=== PATIENT | female | born 1975 ===

== ENCOUNTER 2020-08-25 08:06 | Outpatient (REF) | payer MEDICAID, SELFPAY ==
[2020-08-25 09:51] LABS: Blood Urea Nitrogen 26 mg/dL (9-16); Estimated Glomerular Filt Rate 50
== END 2020-08-25 08:07 | disposition home or self-care (01) ==
LOC: HO.LAB 08:06
PROVIDERS: Absent Provider Radiology Vascular & Interventional Radiology; PCP Internal Medicine
DX: Z01.812 Encounter for preprocedural laboratory examination (principal)
CPT/HCPCS: 36415; 82565; 84520

== ENCOUNTER 2020-09-02 11:00 | Outpatient (RCR) | payer MEDICAID, SELFPAY | END 2020-12-05 15:00 | disposition home or self-care (01) | LOC: HO.WCC 11:00 | PROVIDERS: PCP Internal Medicine; Visit Provider Physician Assistant Surgical | DX: E11.621 Type 2 diabetes mellitus with foot ulcer (principal); L97.525 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 without evidence of necrosis; I70.245 Atherosclerosis of native arteries of left leg with ulceration of other part of foot; E11.610 Type 2 diabetes mellitus with diabetic neuropathic arthropathy; Z79.4 Long term (current) use of insulin; Z79.82 Long term (current) use of aspirin | CPT/HCPCS: 11042; 11043 ==

== ENCOUNTER → 2020-10-03 13:09 | Outpatient (BNVA) | payer MEDICAID, SELFPAY | PROVIDERS: PCP Internal Medicine; Referring Provider Internal Medicine; Visit Provider Nurse Practitioner Gerontology | DX: Z76.89 Persons encountering health services in other specified circumstances (principal) ==

== ENCOUNTER 2021-02-23 13:19 | Outpatient (REF) | payer MEDICAID, SELFPAY ==
--- NOTE | ~2021-02-23 | XR_ITS ---
EXAMINATION: XR CHEST CLINICAL INFORMATION: Shortness of breath COMPARISON: Previous chest x-ray November 2019 TECHNIQUE: 2 views of the chest were obtained. FINDINGS: The cardiac and mediastinal contours are stable. The lungs are clear. There is no pleural effusion or pneumothorax. There are median sternotomy wires. There is mild curvature of the lower thoracic spine to the right and degenerative change. XR/XR chest 2V IMPRESSION: No evidence for acute disease in the chest.
== END 2021-02-23 13:20 | disposition home or self-care (01) ==
LOC: HO.XRAY 13:19
PROVIDERS: PCP Internal Medicine; Visit Provider Emergency Medicine
DX: R06.02 Shortness of breath (principal)
CPT/HCPCS: 71046

== ENCOUNTER → 2021-03-02 09:11 | Outpatient (REF) | payer MEDICAID, SELFPAY ==
--- NOTE | 2021-03-02 09:30 | CA_ITS ---
Transthoracic Echocardiogram Patient (Last, First, Middle): Melissa Barnett, Gender: Female Date of : 1975 Age: 45 Procedure Date: 03/02/2021 Procedure Type: Transthoracic Echocardiogram Location: OP Height: 165.1 cm Weight: 91.63 kg BSA: 1.99 m2 Heart Rate: bpm BP: 122 / 80 mmHg Home Health Manager: Referring MD: Damien Caruso MD Symptoms: I42.9 CMP Study Quality: Fair ECG Rhythm: Sinus Conclusions: - The left ventricular systolic function is normal. The visually estimated ejection fraction is between 65-70%. - There is moderate to severely decreased right ventricular systolic function. Findings Procedure Information Contrast agent, definity, is being given per protocol without apparent complications. Left Ventricle Normal left ventricular cavity size. There is mildly increased left ventricular wall thickness. The left ventricular systolic function is normal. The visually estimated ejection fraction is between 65-70%. There is no evidence of regional wall motion abnormalities. There is paradoxical septal motion consistent with post-operative status. Right Ventricle There is moderate to severely decreased right ventricular systolic function. Prior Study Comparison Changes noted compared to prior study dated: 04/13/2018. See comments on RV function. Measurements 2D Systolic Function EF 4C: 56.10 >55% EF 2C: 65.00 >55% EF BiP: 62.00 >55% Updated in Other Vendor System with Status of Final Tay Perkins MD electronically signed on 03/03/2021 10:41:01 AM with status of Final
== END ==
LOC: HO.CARD 09:11
PROVIDERS: Visit Provider Internal Medicine Cardiovascular Disease
DX: I42.9 Cardiomyopathy, unspecified (principal)
CPT/HCPCS: 93308; Q9957

== ENCOUNTER → 2021-04-03 13:54 | Outpatient (BNVA) | payer MEDICAID, SELFPAY | PROVIDERS: PCP Internal Medicine; Visit Provider Nurse Practitioner Gerontology | DX: E11.42 Type 2 diabetes mellitus with diabetic polyneuropathy (principal); E11.29 Type 2 diabetes mellitus with other diabetic kidney complication; R80.9 Proteinuria, unspecified; I10 Essential (primary) hypertension; E66.09 Other obesity due to excess calories; Z68.31 Body mass index [BMI] 31.0-31.9, adult; Z79.4 Long term (current) use of insulin | CPT/HCPCS: 82947; 99212 ==

== ENCOUNTER 2021-09-02 14:09 | Outpatient (RCR) | payer MEDICAID, SELFPAY ==
[2021-09-02 14:16] VITALS: BP 125/71; PULSE 99; O2SAT 98
== END 2021-09-14 10:43 | disposition home or self-care (01) ==
LOC: HO.PT 14:09
PROVIDERS: PCP Internal Medicine; Visit Provider Internal Medicine
DX: M16.11 Unilateral primary osteoarthritis, right hip (principal)
CPT/HCPCS: 97163

== ENCOUNTER 2021-10-07 10:55 | Outpatient (REF) | payer MEDICAID, SELFPAY ==
[2021-10-07 14:25] LABS: Alanine Aminotransferase 25 U/L (0-31); Albumin Level 4.4 g/dL (3.5-5.0); Alkaline Phosphatase 98 U/L (39-117); Anion Gap 13 (12-20); Aspartate Amino Transferase 21 U/L (5-31); Bilirubin Total 0.3 mg/dL (0.0-1.0); Blood Urea Nitrogen 18 mg/dL (9-16); Calcium 9.7 mg/dL (8.4-10.2); Carbon Dioxide 30 mmol/L (22-29); Chloride 103 mmol/L (96-108); Cholesterol 230 mg/dL; Estimated Glomerular Filt Rate 56; Glucose Random 88 mg/dL (60-115); HDL Cholesterol 46 mg/dL; LDL Cholesterol Calculated 145 mg/dl; Potassium 3.9 mmol/L (3.3-5.1); Sodium 142 mmol/L (135-145); Total Protein 7.5 g/dL (6.5-8.0); Triglycerides 199 mg/dL
[2021-10-07 14:35] LABS: Creatinine Urine 71.86 mg/dL; Microalbum/Creatinine Ratio Ur 65.4 ug/mg cr
[2021-10-07 14:36] LABS: Creatinine Urine 73.53 mg/dL; Protein/Creatinine Ratio, Ur 0.16 (<0.2); Total Protein Urine Random 12 mg/dL (<12)
[2021-10-09 13:30] LABS: LDL Cholesterol Direct 154 mg/dL (<100)
== END 2021-10-07 10:56 | disposition home or self-care (01) ==
LOC: HO.10HDL 10:55
PROVIDERS: Absent Provider Internal Medicine Nephrology; Visit Provider Nurse Practitioner Gerontology
DX: E11.21 Type 2 diabetes mellitus with diabetic nephropathy (principal); E11.29 Type 2 diabetes mellitus with other diabetic kidney complication; E11.65 Type 2 diabetes mellitus with hyperglycemia; E66.09 Other obesity due to excess calories; Z68.31 Body mass index [BMI] 31.0-31.9, adult; E78.5 Hyperlipidemia, unspecified; R80.9 Proteinuria, unspecified; I10 Essential (primary) hypertension; Z79.4 Long term (current) use of insulin; Z71.3 Dietary counseling and surveillance
CPT/HCPCS: 36415; 80053; 80061; 82043; 82947; 83036; 83721; 84156

== ENCOUNTER 2021-10-07 13:26 | Outpatient (AMB) | payer MEDICAID, SELFPAY ==
[2021-10-07 13:29] VITALS: BP 104/58; PULSE 93; BMI 31.7
--- NOTE | 2021-10-07 13:29 | A.OFFVIS_ITS ---
Intake Vital Signs 10/07/21 13:29 Height 5 ft 7 in Weight 202 lb 13.204 oz BMI 31.7 BP 104/58 L Blood Pressure Location Lt brachial Position Sitting Pulse 93 Pulse Source Pulse Oximeter Intake Visit Reasons: Dm2 with pump and sensor Intake Note: Patient here today for Diabetes follow up visit with pump and sensor. For eye care patient last seen 09/28/21 . For foot care patient last seen 09/29/21 poc-181 a1c- 8.8% Health Unit Coordinator Required: No Accompanied by: Self / Same As Patient Allergies sulfamethoxazole [From BACTRIM] Allergy (Severe, Unverified 10/07/21 13:49) FACIAL SWELLING trimethoprim [From BACTRIM] Allergy (Severe, Unverified 10/07/21 13:49) FACIAL SWELLING levofloxacin [From LEVAQUIN] Allergy (Intermediate, Unverified 10/07/21 13:49) REDNESS, SWELLING ITCHINESS AT IV SITE Medication List - Last Reconciled 10/07/21 by DEYSI Luna albuterol sulfate 90 mcg/actuation (ProAir HFA) 1 inh inhalation QID aspirin (Adult Aspirin Regimen) 81 mg PO DAILY evnjbb-mlgpmztalfe-XtMn-NaHCO3 137 mcg-50 mcg- 0.9 % 1 spray intranasal BID blood sugar diagnostic (FreeStyle Lite Strips) As directed clopidogrel 75 mg PO DAILY digoxin 125 mcg PO DAILY dulaglutide (Trulicity) 1.5 mg (0.5 mL) subcut QWEEK 28 days ezetimibe 10 mg PO QAM ferrous gluconate 324 mg PO DAILY insulin glargine (Lantus Solostar U-100 Insulin) 50 units (0.5 mL) subcut DAILY insulin lispro (Humalog U-100 Insulin) up to 150 units subcut daily via pump; 30 days insulin syringe-needle U-100 (BD Insulin Syringe) Three times a day isosorbide mononitrate ER 30 mg PO QAM lamotrigine 100 mg PO BID lancets (FreeStyle Lancets) As directed lisinopril 10 mg PO DAILY mirtazapine 15 mg PO BEDTIME pantoprazole 40 mg PO DAILY pen needle, diabetic (BD Ultra-Fine Nikole Pen Needle) As directed pen needle, diabetic (Pentips) 1 ea miscellaneous DAILY rosuvastatin 40 mg PO BEDTIME sertraline 100 mg PO DAILY spironolactone 25 mg PO DAILY torsemide 20 mg PO DAILY HPI HPI Comments History of Present Illness Details Patient is 45 yo female with DM type 2 diagnosed in approximately 1987, here for follow up management of diabetes. Patient was last seen 04/05/2021 with an A1c of 6.5%. She was continued on her pump settings. She is still has open wound on left foot ulcer operation 2 years ago and sees wound center once a week and daughter changes bandage at home. She is scheduled to see the wound care center tomorrow. Today she states that pump has not been working and has been using Lantus 50 units twice daily for 3 weeks. Past medical history: HTN, HLD, CAD Micro and macrovascular complications: + retinopathy, + neuropathy, + CAD, Symptoms: + numbness and tingling in legs. Hypoglycemia: once every 2 weeks, down to 47 the other day when fasting for labs. Hyperglycemia: denies polyuria, nocturia 2-3x/night CGM: Average blood glucose in the last 2 weeks is 217, C GM is active 81% of the time. Coefficient variation 41.8%. Patient had low blood glucose less than 70, 0.9% of the time. Blood glucose in target range of 70-184, 41.2% of the time. Blood glucose high, over 180, 57.8%. Blood glucose very high over 250, 32.2% of the time. DM medications: Trulicity 1.5, Lantus 50 units BID. Previously on Omnipod with Humalog insulin and settings:: Basal rates: 12am- 9pm 2.3 9pm-12am 2.75 I:C 12am-12pm 5 12PM - 12am 4 BG target 100, Sensitivity 25 Diet: Breakfast: sandwich Lunch: ensure Dinner: soup or pasta Chargem[employer] Specialist: 09/29/21 wound center Eye exam: 09/28/21, + retinopathy Laboratory Tests 10/07/21 10/07/21 10/07/21 11:11 11:11 11:11 Creatinine 1.05 Estimated GFR 56 Hgb A1c (Clinic) Triglycerides 199 Cholesterol 230 LDL Cholesterol Di rect Pending LDL Cholesterol, C alc 145 HDL Cholesterol 46 Microalb/Creat Rat io 65.4 10/07/21 13:52 Creatinine Estimated GFR Hgb A1c (Clinic) 8.8 H Triglycerides Cholesterol LDL Cholesterol Di rect LDL Cholesterol, C alc HDL Cholesterol Microalb/Creat Rat io PFSH Medical History (Updated 10/07/21 @ 14:16 by DEYSI Luna) Anxiety CAD (coronary artery disease) Depression DM2 (diabetes mellitus, type 2) Essential hypertension Hyperlipidemia LDL goal <100 Obesity due to excess calories Proteinuria Retinopathy Type 2 diabetes mellitus with diabetic polyneuropathy Type 2 diabetes mellitus with hyperglycemia, with long-term current use of insulin Type 2 diabetes mellitus with other diabetic kidney complication Surgical History Hx of coronary artery bypass surgery Family History Maternal Grandmother Diabetes Brother Diabetes Social History Household Members: None Alcohol intake: never Patient Tobacco Use Status: Never used Tobacco Review of Systems Const Denies fatigue, Reports weight gain and Denies weight loss Eyes Denies blurry vision ENT Denies sore throat Card Denies palpitations and Denies dyspnea Resp Denies cough and Denies dyspnea GI Denies constipation and Denies diarrhea Denies urinary frequency and Denies dysuria Musc Denies myalgias, Denies muscle weakness, Reports numbness and Reports tingling Neuro Reports numbness and Reports tingling Psych Denies abnormal sleep pattern and Denies depression Endo Denies fatigue and Denies palpitations Wyatt/Lymph Denies easy bruising Physical Exam Vital Signs: Last Vital Signs Pulse 93 10/07/21 13:29 BP 104/58 L 10/07/21 13:29 Body Mass Index 31.7 Const General: no acute distress and alert Orientation/consciousness: patient oriented x3 HENMT Head: Yes normocephalic and Yes atraumatic Eyes Sclerae: sclerae normal Pupils: Equal, round and reactive pupils present EOM: EOMs intact bilaterally Neck Neck: Yes no lymphadenopathy, Yes trachea midline and Yes no JVD Thyroid: Thyroid normal Resp Effort & Inspection: normal respiratory effort Auscultation: clear to auscultation bilaterally Cardio Rate: regular rate Rhythm: regular rhythm Heart sounds: S1 normal heart sound present and S2 normal heart sound present Peripheral pulses: Peripheral pulses 2+ throughout GI Inspection: Yes normal to inspection and No distended Auscultation: normal bowel sounds Skin Other: No acanthosis nigricans or diabetic dermopathy General skin exam: no rashes or lesions noted Neuro General: patient oriented x3, gait normal and deep tendon reflexes 2+ bilaterally Cranial nerves: Yes Equal, round and reactive pupils present Deep tendon reflexes (DTR's): Rt Biceps (C5, C6): 2+, Left biceps reflex intensity grade: 2+, Right patellar reflex intensity grade: 2+ and Left patellar reflex intensity grade: 2+ Extrem Other: General: Yes normal gait, No clubbing, No cyanosis and No edema Psych Affect: normal affect Attitude: cooperative Foot/Visual Skin warmth: Warm Skin color: normal Skin texture: other (dry) Skin complications: reports callus(es) Nails: abnormal Visual inspection of feet performed: Yes Foot/Pulses Pulses: normal: Left dorsalis pedis peripheral pulse, Right dorsalis pedis peripheral pulse, Left posterior tibial pulse foot exam and Right posterior tibial pulse foot exam Peripheral pulses performed: Yes Foot/Sensory Sensory exam performed: No Sensory Details: Monofilament sensation impaired on right. No vibratory sensation sensed with 128 megahertz tuning fork, on right. Left foot bandaged Office Procedures Glucose Monitoring Details 24522 - Glucose monitoring, continuous-physician I&R Procedure code (CPT) selection complete Results AMB Hemoglobin A1c AMB Hemoglobin A1c 8.8 % Last Edit by KENNETH Rainey on 10/07/21 13:54 Results Reviewed Results Reviewed: 10/07/21 13:41 Glucose, Whole Blood Routine Laboratory Last Values Glucose (Clinic) 181 mg/dL (60-115) H 10/07/21 13:41 Hgb A1c (Clinic) 8.8 % (4.0-6.0) H 10/07/21 13:52 Assessment & Plan Assessment & Plan (1) DM2 (diabetes mellitus, type 2): Code(s): E11.9 - Type 2 diabetes mellitus without complications Qualifiers: Diabetes mellitus complication status: with hyperglycemia Diabetes mellitus retirement insulin use: with retirement use Qualified Code(s): E11.65 - Type 2 diabetes mellitus with hyperglycemia; Z79.4 - keno terminal operator (current) use of insulin Plan: Patient's blood glucose is uncontrolled today. Patient has been using Lantus 50 units twice a day for the last 3 weeks and did not contact this office for Humalog dosing. She has postprandial hyperglycemia. I will switch her to Lantus 50 units daily with 5 units of Humalog for in short 10 units for a sandwich and 15 units for regular meal. Patient has been having difficulty with her Omni pot pump and did not contact this office. I will have her see the [facility]rap[facility] ([facility]) to restart patient on Omni pod pump on her previous settings and to trouble shoot the issues she may have had. She is scheduled for earliest possible appointment. Patient is to bring her supplies and Humalog to this appointment. Patient counseled on the importance of controlling portion sizes of high carbohydrate foods and being active as tolerated. Hypoglycemic protocols, rule of 15 reviewed. Patient is currently going to wound care center for an ulcer on her left foot. Advised patient on foot care and the importance of daily foot checks. She reports she is receiving Footcare from nursing staff at her house. Reviewed treatment plan including alternatives, benefits and risks. Patient instructed on the importance of adherence to the prescribed treatment regimen. Patient agreed to plan. 46 minutes spent reviewing the record, seeing the patient and documenting in the medical record. (2) Type 2 diabetes mellitus with diabetic polyneuropathy: Code(s): E11.42 - Type 2 diabetes mellitus with diabetic polyneuropathy Qualifiers: Diabetes mellitus retirement insulin use: with retirement use Qualified Code(s): E11.42 - Type 2 diabetes mellitus with diabetic polyneuropathy; Z79.4 - keno terminal operator (current) use of insulin (3) Type 2 diabetes mellitus with other diabetic kidney complication: Code(s): E11.29 - Type 2 diabetes mellitus with other diabetic kidney complication (4) Proteinuria: Code(s): R80.9 - Proteinuria, unspecified Qualifiers: Proteinuria type: unspecified Qualified Code(s): R80.9 - Proteinuria, unspecified Plan: Patient is currently on an Noel. (5) Essential hypertension: Code(s): I10 - Essential (primary) hypertension Plan: Blood pressure controlled. Advised low-salt diet. (6) Hyperlipidemia LDL goal <100: Code(s): E78.5 - Hyperlipidemia, unspecified Plan: LDL elevated. Patient has been inconsistent with rosuvastatin. Advised to take on daily basis as prescribed. Currently also on ezetimibe. Will add bempedoic acid. (7) Obesity due to excess calories: Code(s): E66.09 - Other obesity due to excess calories Qualifiers: Body mass index: BMI 31.0-31.9 Obesity classification: adult class 1 (BMI 30 - 34.9) Serious obesity comorbidity presence: with serious comorbidity Qualified Code(s): E66.09 - Other obesity due to excess calories; Z68.31 - Body mass index [BMI] 31.0-31.9, adult Plan: Advised patient on the importance diet and exercise as noted. Orders: Orders AMB Hemoglobin A1c Today E11.29 - Type 2 diabetes mellitus with other diabetic kidney complication Referrals Diabetes Education Referral E11.42 - Type 2 diabetes mellitus with diabetic polyneuropathy, Z79.4 - keno terminal operator (current) use of insulin Medications: New insulin lispro (Humalog KwikPen (U-100) Insulin) 5 - 15 units (0.05 - 0.15 mL) subcut TID 15 mL 3RF bempedoic acid 180 mg PO DAILY 30 tabs 11RF Changed From pen needle, diabetic (Pentips) 1 ea miscellaneous DAILY 100 ea 3RF E11.42 - Type 2 diabetes mellitus with diabetic polyneuropathy, Z79.4 - keno terminal operator (current) use of insulin To pen needle, diabetic (Pentips) 1 ea miscellaneous QID 150 ea 3RF E11.42 - Type 2 diabetes mellitus with diabetic polyneuropathy, Z79.4 - keno terminal operator (current) use of insulin Coding Level of Care Code Tele Est Pt Level 5 (18285) Diagnoses Type 2 diabetes mellitus with diabetic polyneuropathy E11.42; Z79.4 Diabetes mellitus retirement insulin use: with retirement use Type 2 diabetes mellitus with other diabetic kidney complication E11.29 Proteinuria R80.9 Proteinuria type: unspecified Essential hypertension I10 Obesity due to excess calories E66.09; Z68.31 Body mass index: BMI 31.0-31.9 Obesity classification: adult class 1 (BMI 30 - 34.9) Serious obesity comorbidity presence: with serious comorbidity DM2 (diabetes mellitus, type 2) E11.65; Z79.4 Diabetes mellitus complication status: with hyperglycemia Diabetes mellitus retirement insulin use: with parts counterman use Hyperlipidemia LDL goal <100 E78.5 CPT Codes Details - CPT: 45562 - Glucose monitoring, continuous-physician I&R ([id number])
[2021-10-07 13:47] LABS: Glucose, Whole Blood 181 mg/dL (60-115)
--- NOTE | 2021-10-19 15:28 | MHC.AMDMED ---
Intake Vital Signs 10/07/21 13:29 Height 5 ft 7 in Weight 202 lb 13.204 oz BMI 31.7 BP 104/58 L Blood Pressure Location Lt brachial Position Sitting Pulse 93 Pulse Source Pulse Oximeter Intake Visit Reasons: Dm2 with pump and sensor Allergies sulfamethoxazole [From BACTRIM] Allergy (Severe, Verified 01/05/24 13:00) FACIAL SWELLING trimethoprim [From BACTRIM] Allergy (Severe, Verified 01/05/24 13:00) FACIAL SWELLING levofloxacin [From LEVAQUIN] Allergy (Intermediate, Verified 01/05/24 13:00) REDNESS, SWELLING ITCHINESS AT IV SITE Medication List - Last Reconciled 10/07/21 by DEYSI Luna albuterol sulfate 90 mcg/actuation (ProAir HFA) 1 inh inhalation QID aspirin (Adult Aspirin Regimen) 81 mg PO DAILY gstjdy-epgclxbxqsb-UsAd-NaHCO3 137 mcg-50 mcg- 0.9 % 1 spray intranasal BID blood sugar diagnostic (FreeStyle Lite Strips) As directed clopidogrel 75 mg PO DAILY digoxin 125 mcg PO DAILY dulaglutide (Trulicity) 1.5 mg (0.5 mL) subcut QWEEK 28 days ezetimibe 10 mg PO QAM ferrous gluconate 324 mg PO DAILY insulin glargine (Lantus Solostar U-100 Insulin) 50 units (0.5 mL) subcut DAILY insulin lispro (Humalog U-100 Insulin) up to 150 units subcut daily via pump; 30 days insulin syringe-needle U-100 (BD Insulin Syringe) Three times a day isosorbide mononitrate ER 30 mg PO QAM lamotrigine 100 mg PO BID lancets (FreeStyle Lancets) As directed lisinopril 10 mg PO DAILY mirtazapine 15 mg PO BEDTIME pantoprazole 40 mg PO DAILY pen needle, diabetic (BD Ultra-Fine Nikole Pen Needle) As directed pen needle, diabetic (Pentips) 1 ea miscellaneous DAILY rosuvastatin 40 mg PO BEDTIME sertraline 100 mg PO DAILY spironolactone 25 mg PO DAILY torsemide 20 mg PO DAILY HPI Comprehensive Diabetes Asmnt Most Recent Diabetes Results: No Data to Display [facility] Medical History DEVYN (obstructive sleep apnea) Osteomyelitis Wound of left foot Asthma DM2 (diabetes mellitus, type 2) Hyperlipidemia LDL goal <100 CAD (coronary artery disease) Retinopathy Anxiety Depression Type 2 diabetes mellitus with hyperglycemia, with long-term current use of insulin Proteinuria Type 2 diabetes mellitus with other diabetic kidney complication Essential hypertension Obesity due to excess calories Type 2 diabetes mellitus with diabetic polyneuropathy Surgical History Hx of breast biopsy Hx of section Hx of tubal ligation Hx of coronary artery bypass surgery Family History Maternal Grandmother Diabetes Cervical cancer Brother Diabetes Sister Breast cancer Social History Household Members: Family Household Members Other:: 1 Housing: Apartment Alcohol intake: never Patient Tobacco Use Status: Never used Tobacco Second Hand Smoke Exposure: No service: No Current occupational status: unemployed Physical Exam Vital Signs: Last Vital Signs Pulse 93 10/07/21 13:29 BP 104/58 L 10/07/21 13:29 BMI result Body Mass Index 31.7 Assessment & Plan Assessment & Plan (1) DM2 (diabetes mellitus, type 2): Code(s): E11.9 - Type 2 diabetes mellitus without complications Qualifiers: Diabetes mellitus complication status: with hyperglycemia Diabetes mellitus keno terminal operator insulin use: with keno terminal operator use Qualified Code(s): E11.65 - Type 2 diabetes mellitus with hyperglycemia; Z79.4 - snf (current) use of insulin (2) Type 2 diabetes mellitus with diabetic polyneuropathy: Code(s): E11.42 - Type 2 diabetes mellitus with diabetic polyneuropathy Qualifiers: Diabetes mellitus detention insulin use: with keno terminal operator use Qualified Code(s): E11.42 - Type 2 diabetes mellitus with diabetic polyneuropathy; Z79.4 - predatory animal exterminator (current) use of insulin (3) Type 2 diabetes mellitus with other diabetic kidney complication: Code(s): E11.29 - Type 2 diabetes mellitus with other diabetic kidney complication (4) Proteinuria: Code(s): R80.9 - Proteinuria, unspecified Qualifiers: Proteinuria type: unspecified Qualified Code(s): R80.9 - Proteinuria, unspecified (5) Essential hypertension: Code(s): I10 - Essential (primary) hypertension (6) Hyperlipidemia LDL goal <100: Code(s): E78.5 - Hyperlipidemia, unspecified (7) Obesity due to excess calories: Code(s): E66.09 - Other obesity due to excess calories Qualifiers: Body mass index: BMI 31.0-31.9 Obesity classification: adult class 1 (BMI 30 - 34.9) Serious obesity comorbidity presence: with serious comorbidity Qualified Code(s): E66.09 - Other obesity due to excess calories; Z68.31 - Body mass index [BMI] 31.0-31.9, adult Orders: Orders AMB Hemoglobin A1c 10/07/21 E11.29 - Type 2 diabetes mellitus with other diabetic kidney complication Referrals Diabetes Education Referral E11.42 - Type 2 diabetes mellitus with diabetic polyneuropathy, Z79.4 - predatory animal exterminator (current) use of insulin Medications: New insulin lispro (Humalog KwikPen (U-100) Insulin) 5 - 15 units (0.05 - 0.15 mL) subcut TID 15 mL 3RF bempedoic acid 180 mg PO DAILY 30 tabs 11RF Changed From pen needle, diabetic 1 ea miscellaneous DAILY 100 ea 3RF E11.42 - Type 2 diabetes mellitus with diabetic polyneuropathy, Z79.4 - predatory animal exterminator (current) use of insulin To pen needle, diabetic (Pentips) 1 ea miscellaneous QID 150 ea 3RF E11.42 - Type 2 diabetes mellitus with diabetic polyneuropathy, Z79.4 - snf (current) use of insulin Coding Level of Care Code Est Pt Level 1 (04134) Diagnoses Type 2 diabetes mellitus with hyperglycemia, with long-term current use of insulin E11.65; Z79.4 Diabetes mellitus complication status: with hyperglycemia Diabetes mellitus detention insulin use: with detention use Type 2 diabetes mellitus with diabetic polyneuropathy, with long-term current use of insulin E11.42; Z79.4 Diabetes mellitus detention insulin use: with detention use Type 2 diabetes mellitus with other diabetic kidney complication E11.29 Proteinuria, unspecified type R80.9 Proteinuria type: unspecified Essential hypertension I10 Hyperlipidemia LDL goal <100 E78.5 Class 1 obesity due to excess calories with serious comorbidity and body mass index (BMI) of 31.0 to 31.9 in adult E66.09; Z68.31 Body mass index: BMI 31.0-31.9 Obesity classification: adult class 1 (BMI 30 - 34.9) Serious obesity comorbidity presence: with serious comorbidity CPT Codes Details - CPT: 73619 - Glucose monitoring, continuous-physician I&R ([id number]) Office Procedures Glucose Monitoring Details 80512 - Glucose monitoring, continuous-physician I&R Procedure code (CPT) selection complete Results AMB Hemoglobin A1c AMB Hemoglobin A1c 8.8 % Last Edit by KENNETH Rainey on 10/07/21 13:54 Results Reviewed Results Reviewed: Laboratory Last Values Glucose (Clinic) 181 mg/dL (60-115) H 10/07/21 13:41 Hgb A1c (Clinic) 8.8 % (4.0-6.0) H 10/07/21 13:52
== END 2021-10-07 14:22 | disposition home or self-care (01) ==
LOC: HO.ENCR 13:26
PROVIDERS: PCP Internal Medicine; Visit Provider Nurse Practitioner Gerontology
DX: E11.65 Type 2 diabetes mellitus with hyperglycemia (principal); Z79.4 Long term (current) use of insulin; E11.42 Type 2 diabetes mellitus with diabetic polyneuropathy; E11.29 Type 2 diabetes mellitus with other diabetic kidney complication; R80.9 Proteinuria, unspecified; I10 Essential (primary) hypertension; E78.5 Hyperlipidemia, unspecified; E66.09 Other obesity due to excess calories; Z68.31 Body mass index [BMI] 31.0-31.9, adult
CPT/HCPCS: 95251; 99215

== ENCOUNTER → 2021-11-05 13:19 | Outpatient (BNVA) | payer MEDICAID, SELFPAY | PROVIDERS: PCP Internal Medicine; Visit Provider Registered Nurse Diabetes Educator | DX: E11.65 Type 2 diabetes mellitus with hyperglycemia (principal); Z79.4 Long term (current) use of insulin | CPT/HCPCS: 99211 ==

== ENCOUNTER 2021-12-02 09:06 | Outpatient (REF) | payer MEDICAID, SELFPAY ==
[2021-12-02 10:51] LABS: Binax Internal Control QC Valid; Binax Now Covid-19 Ag Positive (Negative)
== END 2021-12-02 09:07 | disposition home or self-care (01) ==
LOC: HO.LAB 09:06
PROVIDERS: Visit Provider Internal Medicine
DX: Z20.822 Contact with and (suspected) exposure to COVID-19 (principal)
CPT/HCPCS: C9803

== ENCOUNTER → 2022-01-12 13:20 | Outpatient (BNVA) | payer MEDICAID, SELFPAY | PROVIDERS: PCP Internal Medicine; Visit Provider Registered Nurse Diabetes Educator | DX: E11.42 Type 2 diabetes mellitus with diabetic polyneuropathy (principal); Z79.4 Long term (current) use of insulin | CPT/HCPCS: 99211 ==

== ENCOUNTER → 2022-02-03 13:36 | Outpatient (BNVA) | payer MEDICAID, SELFPAY | PROVIDERS: PCP Internal Medicine; Visit Provider Registered Nurse Diabetes Educator | DX: E11.42 Type 2 diabetes mellitus with diabetic polyneuropathy (principal); Z79.4 Long term (current) use of insulin | CPT/HCPCS: 99211 ==

== ENCOUNTER → 2022-02-09 13:29 | Outpatient (BNVA) | payer MEDICAID, SELFPAY | PROVIDERS: PCP Internal Medicine; Visit Provider Dietitian, Registered | DX: E11.29 Type 2 diabetes mellitus with other diabetic kidney complication (principal); E11.42 Type 2 diabetes mellitus with diabetic polyneuropathy; Z96.41 Presence of insulin pump (external) (internal); Z71.3 Dietary counseling and surveillance | CPT/HCPCS: 97803 ==

== ENCOUNTER → 2022-02-18 13:37 | Outpatient (BNVA) | payer MEDICAID, SELFPAY | PROVIDERS: PCP Internal Medicine; Visit Provider Registered Nurse Diabetes Educator | DX: E11.42 Type 2 diabetes mellitus with diabetic polyneuropathy (principal); Z79.4 Long term (current) use of insulin | CPT/HCPCS: 99211 ==

== ENCOUNTER → 2022-03-29 13:39 | Outpatient (BNVA) | payer MEDICAID, SELFPAY | PROVIDERS: PCP Internal Medicine; Visit Provider Dietitian, Registered | DX: E11.29 Type 2 diabetes mellitus with other diabetic kidney complication (principal) | CPT/HCPCS: 97803 ==

== ENCOUNTER → 2022-05-20 08:00 | Outpatient (BNVA) | payer MEDICAID, SELFPAY | PROVIDERS: PCP Internal Medicine; Visit Provider Registered Nurse Diabetes Educator | DX: Z46.81 Encounter for fitting and adjustment of insulin pump (principal); E11.65 Type 2 diabetes mellitus with hyperglycemia; Z79.4 Long term (current) use of insulin | CPT/HCPCS: 99211 ==

== ENCOUNTER → 2022-06-01 12:58 | Outpatient (BNVA) | payer MEDICAID, SELFPAY | PROVIDERS: PCP Internal Medicine; Visit Provider Internal Medicine Pulmonary Disease | DX: Z91.09 Other allergy status, other than to drugs and biological substances (principal); J45.909 Unspecified asthma, uncomplicated; E66.9 Obesity, unspecified; Z68.31 Body mass index [BMI] 31.0-31.9, adult | CPT/HCPCS: 99202 ==

== ENCOUNTER → 2022-06-18 12:10 | Outpatient (BNVA) | payer MEDICAID, SELFPAY | PROVIDERS: PCP Internal Medicine; Visit Provider Registered Nurse Diabetes Educator | DX: E11.42 Type 2 diabetes mellitus with diabetic polyneuropathy (principal); Z79.4 Long term (current) use of insulin; Z46.81 Encounter for fitting and adjustment of insulin pump | CPT/HCPCS: 99211 ==

== ENCOUNTER 2022-06-25 12:52 | Outpatient (REF) | payer MEDICAID, SELFPAY ==
--- NOTE | 2022-06-25 15:51 | PFT_ITS ---
Forced vital capacity 64%, FEV1 is 68%, and FEV1/FVC ratio is 86. BSP20-49 85% and MVV 53%. Post bronchodilator therapy there is no significant change. Total lung capacity 74% and residual volume 88%. Diffusion capacity 53 but DL/VA is 81. 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 No obstructive airway disorder. MVV is decreased, probably due to poor effort. Clinical correlation recommended. MD MICHAEL Castrejon/BECKI / [id number]
== END 2022-06-25 12:53 | disposition home or self-care (01) ==
LOC: HO.RESP 12:52
PROVIDERS: PCP Internal Medicine; Visit Provider Internal Medicine Pulmonary Disease
DX: R06.00 Dyspnea, unspecified (principal); J45.909 Unspecified asthma, uncomplicated
CPT/HCPCS: 94060; 94727; 94729

== ENCOUNTER 2022-06-28 10:15 | Outpatient (REF) | payer MEDICAID, SELFPAY ==
[2022-06-28 10:35] LABS: MANUAL DIFF FLAG NO
[2022-06-28 11:43] LABS: Basophils Percent Auto 0.4 % (0-2); Eosinophils Absolute Auto 0.6 X10*3/uL (0.0-0.4); Eosinophils Percent Auto 8.2 % (0-4); Hematocrit 39.1 % (37.0-47.0); Hemoglobin 12.9 g/dl (12.0-16.0); Imm Gran Abs Auto 0.01 X10*3/uL (0.00-0.03); Imm Gran Pct Auto 0.1 % (0.0-0.4); Lymphocytes Absolute Auto 2.2 X10*3/uL (1.2-4.9); Lymphocytes Percent Auto 31.7 % (20-40); Mean Corpuscular Hemoglobin 29.6 pg (27.0-33.0); Mean Corpuscular Volume 89.7 fL (80.0-98.0); Mean Platelet Volume 11.3 fL (9.4-12.3); Monocytes Absolute Auto 0.6 X10*3/uL (0.1-1.2); Neutrophils Absolute Auto 3.6 x10*3/uL (2.0-8.3); Neutrophils Percent Auto 51.6 % (45-73); Platelet Count 265 X10*3/uL (160-400); Red Blood Count 4.36 X10*6/uL (4.20-5.50); Red Cell Distribution Width 12.7 % (11.0-16.0); White Blood Count 6.9 X10*3/uL (4.8-10.8)
[2022-06-30 07:16] LABS: Rast Allergen SEE COMMENTS
== END 2022-06-28 10:16 | disposition home or self-care (01) ==
LOC: HO.LAB 10:15
PROVIDERS: PCP Internal Medicine; Visit Provider Internal Medicine Pulmonary Disease
DX: Z91.09 Other allergy status, other than to drugs and biological substances (principal)
CPT/HCPCS: 36415; 82785; 85025; 86003

== ENCOUNTER → 2022-07-13 10:39 | Outpatient (BNVA) | payer MEDICAID, SELFPAY | PROVIDERS: PCP Internal Medicine; Visit Provider Internal Medicine Pulmonary Disease | DX: Z91.09 Other allergy status, other than to drugs and biological substances (principal); J45.909 Unspecified asthma, uncomplicated; G47.33 Obstructive sleep apnea (adult) (pediatric) | CPT/HCPCS: 99212 ==

== ENCOUNTER 2022-10-01 15:17 | Inpatient (IN) | payer MEDICAID, SELFPAY ==
--- NOTE | ~2022-10-01 | XR_ITS ---
EXAMINATION: XR FOOT, LEFT CLINICAL INFORMATION: Osteomyelitis. COMPARISON: 10/31/2019 TECHNIQUE: 3 views of the left foot. FINDINGS: There is deep soft tissue wound plantar and lateral to the base of the fifth metatarsal. There is irregular osteolysis of the metatarsal base and osseous fragmentation of the articular surfaces of the cuboid and metatarsal base. Findings are suggestive of septic arthritis and osteomyelitis. There appears to be old healed erosion or articular surface collapse of the distal cuboid. Chronic subarticular cystlike lucency at the fourth tarsometatarsal joint. This examination does not exclude infection involvement of the base of the fourth metatarsal. The phalanges are unremarkable. The metatarsophalangeal and interphalangeal joints are normal. There are enthesophytes at the posterior and plantar surfaces of the calcaneus. Soft tissues are swollen in the foot. XR/XR foot LT 2V IMPRESSION: The soft tissue wound at the level of the fifth metatarsal base with worsening osteolysis and articular surface fragmentation involving the metatarsal base and adjacent cuboid. Findings suggest presence of septic arthritis and osteomyelitis. Chronic subarticular cystic lucency is observed in the adjacent fourth metatarsal base.
--- NOTE | ~2022-10-01 | MR_ITS ---
EXAMINATION: MR FOOT WITHOUT AND WITH CONTRAST, LEFT CLINICAL INFORMATION: Osteomyelitis. COMPARISON: Most recent left foot radiographs dated 10/01/[address]/MRI dated 12/19/2019. TECHNIQUE: Multisequence MR imaging of the left foot was obtained before and after the IV administration of 10 mL Gadavist contrast on a high-field strength scanner. FINDINGS: Soft tissue ulceration along the lateral aspect of the midfoot at the level of the 5th tarsometatarsal joint. There is adjacent subcutaneous edema consistent with cellulitis. Complex subcutaneous fluid collection measuring 3.2 x 1.5 x 2.7 cm, concerning for abscess formation. Findings are new/increased when compared to the prior examination. There is adjacent significantly decreased T1 and increased T2 signal within the base of the 4th and 5th metatarsals as well as within the cuboid. These areas demonstrate prominent postcontrast enhancement. More [id number] decreased T1 and increased T2 signal throughout the navicula and cuneiforms as well as the base of the 2nd and 3rd metatarsals. These areas demonstrate more mild postcontrast enhancement. Findings are concerning for acute osteomyelitis. No acute fracture or dislocation. No talar osteochondral lesion. The visualized flexor and extensor tendons are grossly intact; however, evaluation is somewhat limited due to patient motion. Edema within the intrinsic musculature of the foot which can be seen in diabetic patients. Intact Lisfranc ligament. MR/MR foot LT wo/w con IMPRESSION: 1. Soft tissue ulceration and cellulitis along the lateral aspect of the midfoot with a complex subcutaneous fluid collection measuring up to 3.2 cm, concerning for an abscess formation. Adjacent marrow edema within the base of the 4th and 5th metatarsals as well as within the cuboid as well as the navicula and cuneiforms as well as the base of the 2nd and 3rd metatarsals. Findings are new/increased when compared to the prior examination and are consistent with acute osteomyelitis. 2. Edema within the intrinsic musculature of the foot which can be seen in diabetic patients.
[2022-10-01 15:24] VITALS: BP 105/54; PULSE 100; RESP 18; TEMP 37.3; O2SAT 99; BMI 29.0
--- NOTE | 2022-10-01 15:31 | ED.GENADULT ---
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 Patient states that for the last 3 days she noticed a wound on the top of her left foot. Patient states that when she put her sandals on to come here, the wound ruptured. Patient denies any dizziness, lightheadedness, abdominal pain, nausea, vomiting, fever, chills, blurry vision, double vision, loss of vision, chest pain, difficulty breathing, shortness of breath, back pain, night sweats, pain with urination, increased urinary frequency, increased urinary urgency, blood in her urine or stool, syncope or a near syncopal episode, recent trauma or falls, bowel incontinence, bladder incontinence, bowel retention, bladder retention, or any other complaints at this time. Onset (ago): day(s) (3) Location: left and lower extremity Radiation: non-radiation Severity: mild Severity scale (1-10): 3 Quality: dull Pain Consistency: constant Relieving factors: none Exacerbating factors: none Associated symptoms: denies other symptoms Treatments prior to arrival: none Related Data Home Medications Medication Instructions Recorded Confirmed aspirin 81 mg tablet,delayed 81 mg PO DAILY@1700 10/03/20 10/01/22 release (Adult Aspirin Regimen) clopidogrel 75 mg tablet 75 mg PO DAILY@72910/03/20 10/01/22 digoxin 125 mcg (0.125 mg) tablet 125 mcg PO MOWEFR@72910/03/20 10/01/22 ferrous gluconate 324 mg (38 mg 324 mg PO DAILY@1200,1700 10/03/20 10/01/22 iron) tablet isosorbide mononitrate 30 mg 30 mg PO DAILY@72910/03/20 10/01/22 tablet,extended release 24 hr lisinopril 10 mg tablet 10 mg PO DAILY@30 10/03/20 10/01/22 pantoprazole 40 mg tablet,delayed 40 mg PO DAILY@72910/03/20 10/01/22 release spironolactone 25 mg tablet 25 mg PO DAILY@72910/03/20 10/01/22 torsemide 20 mg tablet 60 mg PO BID 10/03/20 10/01/22 bempedoic acid 180 mg tablet 180 mg PO DAILY@72910/01/22 10/01/22 (Nexletol) doxepin 10 mg capsule 10 mg PO BEDTIME 10/01/22 10/01/22 ezetimibe 10 mg tablet 10 mg PO DAILY@72910/01/22 10/01/22 fluoxetine 20 mg capsule 20 mg PO DAILY@72910/01/22 10/01/22 fluticasone 250 mcg-salmeterol 50 1 puff inhalation BID 10/01/22 10/01/22 mcg/dose blistr powdr for inhalation (Advair Diskus) fluticasone propionate 50 1 - 2 spray intranasal DAILY PRN 10/01/22 10/01/22 mcg/actuation nasal Congestion spray,suspension gabapentin 100 mg capsule 200 mg PO TID 10/01/22 10/01/22 insulin lispro 100 unit/mL See Rx Instructions .Route .COMPLEX 10/01/22 10/01/22 subcutaneous solution (Humalog U-100 Insulin) lamotrigine 100 mg tablet 100 mg PO BEDTIME 10/01/22 10/01/22 lisinopril 5 mg tablet 5 mg PO DAILY@1200 10/01/22 10/01/22 melatonin 5 mg tablet 5 mg PO BEDTIME 10/01/22 10/01/22 Previous Rx's Medication Instructions Recorded omalizumab 150 mg subcutaneous 300 mg subcut Q2W 28 days #4 ea 07/05/22 solution (Xolair) rosuvastatin 40 mg tablet 40 mg PO BEDTIME #30 tabs 07/29/22 insulin glargine 100 unit/mL (3 50 unit (0.5 mL) subcut DAILY #15 08/25/22 mL) subcutaneous pen (Lantus mL Solostar U-100 Insulin) Allergies Allergy/AdvReac Type Severity Reaction Status Date / Time sulfamethoxazole Allergy Severe FACIAL Verified 07/13/22 10:40 [From BACTRIM] SWELLING trimethoprim [From BACTRIM] Allergy Severe FACIAL Verified 07/13/22 10:40 SWELLING levofloxacin [From LEVAQUIN] Allergy Intermediate REDNESS, Verified 07/13/22 10:40 SWELLING ITCHINESS AT IV SITE Review of Systems Constitutional: Constitutional: Reports no additional constitutional complaints, Denies chills, Denies fever(s) and Denies night sweats Eyes: Eyes: Reports no additional eye complaints, Denies blurry vision, Denies change in vision, Denies diplopia, Denies eye discharge, Denies loss of vision and Denies eye pain ENT: Denies dizziness Cardiovascular: Cardiovascular: Reports no additional cardiovascular complaints, Denies chest pain, Denies lightheadedness, Denies Loss of Consciousness and Denies dyspnea Respiratory: Respiratory: Reports no additional respiratory complaints and Denies dyspnea Gastrointestinal: Gastrointestinal: Reports no additional gastrointestinal complaints, Denies abdominal pain, Denies melena, Denies hematochezia, Denies change in bowel habits and Denies change in stool character Genitourinary: Genitourinary: Denies hematuria, Denies urinary frequency, Denies dysuria, Denies urinary incontinence, Denies urinary hesitancy and Denies urinary urgency Musculoskeletal: Musculoskeletal: Reports no additional musculoskeletal complaints, Denies numbness and Denies tingling Comments: left foot wound Neurologic: Denies dizziness, Denies loss of vision, Denies numbness and Denies tingling Psychiatric: Psychiatric: Reports no additional psychiatric complaints Endocrine: Endocrine: Reports no additional endocrine complaints Hematologic/Lymphatic: Hematologic/Lymphatic: Reports no additional hematologic/lymphatic complaints Allergic/Immunologic: Allergic/Immunologic: Reports no additional allergic/immunologic complaints [facility] Past Medical History Attestation statement: The following information was validated with the patient. Source: old records reviewed Medical History Anxiety CAD (coronary artery disease) Depression DM2 (diabetes mellitus, type 2) Essential hypertension Hyperlipidemia LDL goal <100 Obesity due to excess calories Proteinuria Retinopathy Type 2 diabetes mellitus with diabetic polyneuropathy Type 2 diabetes mellitus with hyperglycemia, with long-term current use of insulin Type 2 diabetes mellitus with other diabetic kidney complication Surgical History Hx of coronary artery bypass surgery Family History Family History Maternal Grandmother Diabetes Brother Diabetes Social History Social History Household Members: None Alcohol intake: never Patient Tobacco Use Status: Never used Tobacco Advance Directives: No Advance Directives Information Provided: No Physical Exam ED Vital Signs: Vital Signs - 24 hr 10/01/22 15:24 10/01/22 18:11 10/01/22 18:19 Temperature 99.2 F 100.3 F Pulse Rate 100 86 Respiratory Rate 18 16 Blood Pressure 105/54 L 93/44 L 103/44 L Pulse Oximetry 99 98 Oxygen Delivery Method Room Air Room Air 10/01/22 18:45 Temperature 98.8 F Pulse Rate 82 Respiratory Rate 14 Blood Pressure 110/55 L Pulse Oximetry 99 Oxygen Delivery Method Room Air BMI result Body Mass Index 29.0 Const General: cooperative, no acute distress, alert and awake Nutritional Appearance: well nourished Orientation/consciousness: patient oriented x3 Limitations: no limitations HENMT Head: Yes normal to inspection and Yes atraumatic Ears: hearing grossly normal bilaterally and external ears normal General nose exam: Normal external nose present, no nasal discharge noted and no epistaxis Face and sinus: Yes normal facial exam, No abrasion and No laceration Mouth: Normal oral and palatal mucosa present, no drooling and no muffled voice Eyes General: appearance normal, both eyes and all related structures Periorbital: periorbital findings normal Eyelids: Yes eyelids normal Conjunctivae: conjunctivae normal Pupils: Equal, round and reactive pupils present EOM: EOMs intact bilaterally Neck Neck: Yes normal visual inspection, Yes full ROM and Yes no lymphadenopathy Chest Chest palpation & inspection: normal inspection of the chest Resp Effort & Inspection: normal respiratory effort and able to speak in complete sentences Auscultation: clear to auscultation bilaterally Cardio Rate: regular rate Rhythm: regular rhythm GI Inspection: Yes normal to inspection Neuro General: patient oriented x3 and moves all extremities Cranial nerves: Yes Equal, round and reactive pupils present Cognition (Neuro): normal cognition Motor exam (neuro): 5/5 motor strength present throughout Sensory Exam: Normal double simultaneous stimulation for sensation Coordination: [id number] test normal Extrem Other: necrotic area of tissue of the left fibular side plantar aspect of the left foot with a large abscess on the dorsal aspect of the left foot along the fibular aspect activly draining pus General: Yes full ROM and Yes capillary refill normal Psych Appearance: grossly normal Mental Status: mental status grossly normal Affect: normal affect Attitude: cooperative Thought process: Normal thought process present Thought content: Normal thought content present Insight: Good insight present (Psych) Course Course Course Narrative: RME was completed by Janeth Mclain PA-C at 1530. Patient's abscess self-ruptured and I assisted in expressing additional pus from the area and applying a temporary dressing. CBC, CMP, ESR, CRP, left foot XR, lactic acid, and blood cultures have been ordered. Patient had a low grade fever and was given Tylenol. Concern for osteomyelitis of the left foot. Patient to be placed back in the waiting room pending room availability within the department. Medications Administered Discontinued Medications Generic Name Dose Route Start Last Admin Trade Name Freq PRN Reason Stop Dose Admin Acetaminophen 650 mg 10/01/22 15:29 10/01/22 18:37 Acetaminophen 325 Mg Tablet PO 10/01/22 15:30 650 mg ONCE ONE Administration Gadobutrol 10 ml 10/01/22 20:28 10/01/22 20:29 Gadobutrol 10 Ml Vial IVPUSH 10/01/22 20:29 10 ml ONCE ONE Administration Sodium Chloride 2,517.45 mls @ 2,517.45 mls/hr 10/01/22 18:14 10/01/22 19:51 Ns 30 ml/kg infuse over 1 hr (2517.45 ml) 10/01/22 19:13 Infused IV Infusion .Q1H STA Piperacillin Sod/Tazobactam 50 mls @ 100 mls/hr 10/01/22 18:15 10/01/22 19:08 Sod 3.375 gm/ Sodium Chloride IV 10/01/22 18:44 Infused ONCE ONE Infusion Procedures Abscess I/D Site: lower extremity Side (if applicable): left Sedation/analgesia: none Technique: other (self-ruptured) Amount of fluid expressed (mL): 20 Sent for culture/gram staining?: No Irrigation: No Packing used?: none Medical Decision Making MDM Narrative Medical decision making narrative: Patient is a 47 year old assigned female at with a history of DM presenting to the emergency department today with a left foot abscess. Patient's physical exam showed a large abscess to the dorsal aspect of the left foot above the 5th metatarsal as well as necrotic tissue to the plantar aspect of the foot just superior to the 5th metatarsal. Patient's blood work showed an elevated WBC count 13.8, ESR 111, CRP 30.50, and a sodium of 132. Patient's left foot x-ray was read as fifth metatarsal base has worsening osteolysis and articular surface fragmentation involving the metatarsal base and adjacent cuboid, these findings suggest presence of septic arthritis and osteomyelitis. They also noted chronic subarticular cystic lucency is observed in the adjacent fourth metatarsal base. Patient was considering possibly septic at 1815 and at that point the appropriate sepsis fluid bolus was ordered as well as IV Zosyn. I spoke to the hospitalist team who agreed to admission. I explained my physical exam findings as well as all test results to the patient and the patient's . I answered all questions asked by the patient and the patient's . Patient [and the patient's] verbalized agreement and understanding with this treatment plan and admission. Medical Records Medical records reviewed: Yes I reviewed the patient's medical records. Lab Data Lab results reviewed: Yes I reviewed the patient's lab results. Result diagrams: 10/01/22 15:48 10/01/22 15:48 Labs: Lab Results 10/01/22 10/01/22 10/01/22 Range/Units 15:47 15:48 15:48 WBC 13.8 H (4.8-10.8) X10*3/uL RBC 3.18 L D (4.20-5.50) X10*6/uL Hgb 9.3 L D (12.0-16.0) g/dl Hct 28.7 L D (37.0-47.0) % MCV 90.3 (80.0-98.0) fL MCH 29.2 (27.0-33.0) pg MCHC 32.4 (31.0-35.0) g/dl RDW 12.9 (11.0-16.0) % Plt Count 380 D (160-400) X10*3/uL MPV 10.2 (9.4-12.3) fL Immature Gran % (Auto) 0.5 H (0.0-0.4) % Neut % (Auto) 81.3 H (45-73) % Lymph % (Auto) 9.7 L (20-40) % [place] % (Auto) 7.3 (2-11) % Eos % (Auto) 1.0 (0-4) % Baso % (Auto) 0.2 (0-2) % Lymph # (Auto) 1.3 (1.2-4.9) X10*3/uL [place] # (Auto) 1.0 (0.1-1.2) X10*3/uL Eos # (Auto) 0.1 (0.0-0.4) X10*3/uL Baso # (Auto) 0.0 (0.0-0.2) X10*3/uL Abs Immat Gran (auto) 0.07 H (0.00-0.03) X10*3/uL Absolute Neuts (auto) 11.2 H (2.0-8.3) x10*3/uL Absolute Nucleated RBC 0.000 (0.0-0.012) X10*3/uL Nucleated RBC % (auto) 0.0 (0.0-0.2) /100WBC ESR 111 H (0-20) MM/HR Sodium (135-145) mmol/L Potassium (3.3-5.1) mmol/L Chloride (96-108) mmol/L Carbon Dioxide (22-29) mmol/L Anion Gap (12-20) BUN (9-16) mg/dL Creatinine (0.5-1.4) mg/dL Estim Creat Clear Calc Estimated GFR Random Glucose (60-115) mg/dL Lactic Acid 0.9 (0.5-2.0) mmol/L Calcium (8.4-10.2) mg/dL Total Bilirubin (0.0-1.0) mg/dL AST (5-31) U/L ALT (0-31) U/L Alkaline Phosphatase (39-117) U/L C-Reactive Protein (< or = 0.50) mg/dL Total Protein (6.5-8.0) g/dL Albumin (3.5-5.0) g/dL COVID-19 (ER[facility]) (Negative) COVID-19 Clin Com 10/01/22 10/01/22 Range/Units 15:48 18:49 WBC (4.8-10.8) X10*3/uL RBC (4.20-5.50) X10*6/uL Hgb (12.0-16.0) g/dl Hct (37.0-47.0) % MCV (80.0-98.0) fL MCH (27.0-33.0) pg MCHC (31.0-35.0) g/dl RDW (11.0-16.0) % Plt Count (160-400) X10*3/uL MPV (9.4-12.3) fL Immature Gran % (Auto) (0.0-0.4) % Neut % (Auto) (45-73) % Lymph % (Auto) (20-40) % [place] % (Auto) (2-11) % Eos % (Auto) (0-4) % Baso % (Auto) (0-2) % Lymph # (Auto) (1.2-4.9) X10*3/uL [place] # (Auto) (0.1-1.2) X10*3/uL Eos # (Auto) (0.0-0.4) X10*3/uL Baso # (Auto) (0.0-0.2) X10*3/uL Abs Immat Gran (auto) (0.00-0.03) X10*3/uL Absolute Neuts (auto) (2.0-8.3) x10*3/uL Absolute Nucleated RBC (0.0-0.012) X10*3/uL Nucleated RBC % (auto) (0.0-0.2) /100WBC ESR (0-20) MM/HR Sodium 132 L (135-145) mmol/L Potassium 4.2 (3.3-5.1) mmol/L Chloride 91 L (96-108) mmol/L Carbon Dioxide 27 (22-29) mmol/L Anion Gap 18 (12-20) BUN 26 H (9-16) mg/dL Creatinine 1.32 (0.5-1.4) mg/dL Estim Creat Clear Calc 57.4 Estimated GFR 43 Random Glucose 159 H (60-115) mg/dL Lactic Acid (0.5-2.0) mmol/L Calcium 9.3 (8.4-10.2) mg/dL Total Bilirubin 0.6 (0.0-1.0) mg/dL AST 61 H (5-31) U/L ALT 85 H (0-31) U/L Alkaline Phosphatase 131 H D (39-117) U/L C-Reactive Protein 30.50 H (< or = 0.50) mg/dL Total Protein 6.8 (6.5-8.0) g/dL Albumin 3.4 L D (3.5-5.0) g/dL COVID-19 (ERICH) Negative (Negative) COVID-19 Clin Com See Note Imaging Data Left foot x-ray: Attestation: I personally reviewed and interpreted this imaging study as follows: My impression: Possible osteomyelitis Radiologist's impression: EXAMINATION: XR FOOT, LEFT CLINICAL INFORMATION: Osteomyelitis.? COMPARISON: 10/31/2019? TECHNIQUE: 3 views of the left foot. FINDINGS: There is deep soft tissue wound plantar and lateral to the base of the fifth metatarsal. There is irregular osteolysis of the metatarsal base and osseous fragmentation of the articular surfaces of the cuboid and metatarsal base. Findings are suggestive of septic arthritis and osteomyelitis. There appears to be old healed erosion or articular surface collapse of the distal cuboid. Chronic subarticular cystlike lucency at the fourth tarsometatarsal joint. This examination does not exclude infection involvement of the base of the fourth metatarsal. The phalanges are unremarkable. The metatarsophalangeal and interphalangeal joints are normal. There are enthesophytes at the posterior and plantar surfaces of the calcaneus. Soft tissues are swollen in the foot.? XR/XR foot LT 2V IMPRESSION: The soft tissue wound at the level of the fifth metatarsal base with worsening osteolysis and articular surface fragmentation involving the metatarsal base and adjacent cuboid. Findings suggest presence of septic arthritis and osteomyelitis. Chronic subarticular cystic lucency is observed in the adjacent fourth metatarsal base. Dictated By: Andreas Cavazos MD Signed By: Electronically signed by Andreas Cavazos MD 10/01/22 1736 Critical Care Time Critical Care Time Critical Care Time: Yes Total Critical Care Time: 45 Attestation: I spent 45 minutes of Critical Care Time with this patient. This does not include time spent on separately reported billable procedures. Discharge Plan Discharge Clinical Impression: Sepsis, DM2 (diabetes mellitus, type 2), Wound of left foot Patient Disposition: Admitted As Inpatient
[2022-10-01 15:57] LABS: MANUAL DIFF FLAG NO
[2022-10-01 16:00] LABS: Basophils Percent Auto 0.2 % (0-2); Eosinophils Absolute Auto 0.1 X10*3/uL (0.0-0.4); Hematocrit 28.7 % (37.0-47.0); Hemoglobin 9.3 g/dl (12.0-16.0); Imm Gran Abs Auto 0.07 X10*3/uL (0.00-0.03); Imm Gran Pct Auto 0.5 % (0.0-0.4); Lymphocytes Absolute Auto 1.3 X10*3/uL (1.2-4.9); Lymphocytes Percent Auto 9.7 % (20-40); Mean Corpuscular HGB Conc 32.4 g/dl (31.0-35.0); Mean Corpuscular Hemoglobin 29.2 pg (27.0-33.0); Mean Corpuscular Volume 90.3 fL (80.0-98.0); Mean Platelet Volume 10.2 fL (9.4-12.3); Monocytes Percent Auto 7.3 % (2-11); Neutrophils Absolute Auto 11.2 x10*3/uL (2.0-8.3); Neutrophils Percent Auto 81.3 % (45-73); Platelet Count 380 X10*3/uL (160-400); Red Blood Count 3.18 X10*6/uL (4.20-5.50); Red Cell Distribution Width 12.9 % (11.0-16.0); White Blood Count 13.8 X10*3/uL (4.8-10.8)
[2022-10-01 16:16] LABS: Lactic Acid 0.9 mmol/L (0.5-2.0)
[2022-10-01 16:34] LABS: Erythrocyte Sedimentation Rate 111 MM/HR (0-20)
[2022-10-01 16:45] LABS: Alanine Aminotransferase 85 U/L (0-31); Albumin Level 3.4 g/dL (3.5-5.0); Alkaline Phosphatase 131 U/L (39-117); Anion Gap 18 (12-20); Aspartate Amino Transferase 61 U/L (5-31); Bilirubin Total 0.6 mg/dL (0.0-1.0); Blood Urea Nitrogen 26 mg/dL (9-16); Calcium 9.3 mg/dL (8.4-10.2); Carbon Dioxide 27 mmol/L (22-29); Chloride 91 mmol/L (96-108); Creatinine Clr Calc Pharmacy 57.4; Estimated Glomerular Filt Rate 43; Glucose Random 159 mg/dL (60-115); Potassium 4.2 mmol/L (3.3-5.1); Sodium 132 mmol/L (135-145); Total Protein 6.8 g/dL (6.5-8.0)
[2022-10-01 18:11] VITALS: BP 93/44; PULSE 86; RESP 16; TEMP 37.9; O2SAT 98
[2022-10-01] MEDS: 0.9 % Sodium Chloride 2,517.45 ML 2517.45 ML IV (18:18)
[2022-10-01 18:19] VITALS: BP 103/44
[2022-10-01] MEDS: Acetaminophen 325 MG TABLET 650 MG PO (18:37)
[2022-10-01] MEDS: Piperacillin Sodium/Tazobactam 3.375 GM in 0.9 % Sodium Chloride 50 ML IV (18:38)
--- NOTE | 2022-10-01 18:39 | PC.NURSE ---
Janeth instructed to give Tylenol despite being ordered 3 hours prior
[2022-10-01 18:45] VITALS: BP 110/55; PULSE 82; RESP 14; TEMP 37.1; O2SAT 99
[2022-10-01 19:09] LABS: COVID-19 Test Negative (Negative); IDNOW Serial# 55D5AD1C
--- NOTE | 2022-10-01 19:40 | PM.IMHP ---
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 Patient states she has had left foot wound for a while now and follows wound care for it. Patient noticed that her left foot wound was getting bigger over the last 3 days . The wound ruptured in the ER as patient was trying to put her sandals on. Patient denies ever taking any antibiotics for it or wounds at other places. Patient denies fever, chills, nausea, vomiting, dizziness, lightheadedness, blurry vision, double vision, chest discomfort, palpitations, shortness of breath, changes in urinary or bowel habits. Patient has a pump for management of insulin-dependent diabetes mellitus. States she is compliant with her medications for chronic medical conditions. History was obtained via interpreter deaf as patient is [place]-speaking. In the emergency department, abscess self ruptured and pus was expressed from it. Unfortunately cultures could be obtained. Imaging was concerning for questionable osteomyelitis/ septic arthritis of the foot. Inflammatory markers elevated. Review of Systems Constitutional: Constitutional: Reports no additional constitutional complaints Cardiovascular: Cardiovascular: Reports no additional cardiovascular complaints Respiratory: Respiratory: Reports no additional respiratory complaints Gastrointestinal: Gastrointestinal: Reports no additional gastrointestinal complaints Genitourinary: Genitourinary: Reports no additional female genitourinary complaints Integumentary/Breasts: Skin/Breast: Reports skin ulcer and Reports wounds Neurologic: Reports system reviewed and no additional complaints, except as documented [facility] Medical History Anxiety CAD (coronary artery disease) Depression DM2 (diabetes mellitus, type 2) Essential hypertension Hyperlipidemia LDL goal <100 Obesity due to excess calories Proteinuria Retinopathy Type 2 diabetes mellitus with diabetic polyneuropathy Type 2 diabetes mellitus with hyperglycemia, with long-term current use of insulin Type 2 diabetes mellitus with other diabetic kidney complication Family History Maternal Grandmother Diabetes Brother Diabetes Surgical History Hx of coronary artery bypass surgery Social History Household Members: None Alcohol intake: never Patient Tobacco Use Status: Never used Tobacco Advance Directives: No Advance Directives Information Provided: No Meds Allergies Allergy/AdvReac Type Severity Reaction Status Date / Time sulfamethoxazole Allergy Severe FACIAL Verified 07/13/22 10:40 [From BACTRIM] SWELLING trimethoprim [From BACTRIM] Allergy Severe FACIAL Verified 07/13/22 10:40 SWELLING levofloxacin [From LEVAQUIN] Allergy Intermediate REDNESS, Verified 07/13/22 10:40 SWELLING ITCHINESS AT IV SITE Active Medications: Current Medications Acetaminophen (Acetaminophen 325 Mg Tablet) 650 mg PO Q6H PRN PRN Reason: Pain, Mild (Pain Scale 1-3) Piperacillin Sod/Tazobactam (Sod 4.5 gm/ Sodium Chloride) 100 mls @ 200 mls/hr IV Q6H [facility] Melatonin (Melatonin 3 Mg Tablet) 6 mg PO BEDTIME PRN PRN Reason: Insomnia Ondansetron HCl (Ondansetron Hcl 4 Mg/2 Ml Vial) 4 mg IVPUSH Q8H PRN PRN Reason: Nausea and Vomiting Pharmacy Consult (Consult Rx Perform Med Rec) 1 each MISCELLANE ONCE PRN PRN Reason: Consult order Sodium Chloride (0.9 % Sodium Chloride Flush 3 Ml Syringe) 3 ml IVFLUSH QSHIFT [facility] Home Medications Medication Instructions Recorded Confirmed Last Taken Type aspirin 81 mg tablet,delayed 81 mg PO DAILY 10/03/20 10/07/21 Unknown History release (Adult Aspirin Regimen) clopidogrel 75 mg tablet 75 mg PO DAILY 10/03/20 10/07/21 Unknown History digoxin 125 mcg (0.125 mg) tablet 125 mcg PO MOWEFR 10/03/20 10/07/21 Unknown History ferrous gluconate 324 mg (38 mg 324 mg PO DAILY 10/03/20 10/07/21 Unknown History iron) tablet isosorbide mononitrate 30 mg 30 mg PO QAM 10/03/20 10/07/21 Unknown History tablet,extended release 24 hr lisinopril 10 mg tablet 10 mg PO DAILY@0630 10/03/20 10/07/21 Unknown History pantoprazole 40 mg tablet,delayed 40 mg PO DAILY 10/03/20 10/07/21 Unknown History release spironolactone 25 mg tablet 25 mg PO DAILY 10/03/20 10/07/21 Unknown History torsemide 20 mg tablet 60 mg PO BID 10/03/20 10/07/21 Unknown History bempedoic acid 180 mg tablet 1 tab PO QAM 10/01/22 Unknown History (Nexletol) doxepin 10 mg capsule 1 cap PO BEDTIME 10/01/22 10/01/22 Unknown History ezetimibe 10 mg tablet 10 mg PO DAILY@0730 10/01/22 10/01/22 10/01/22 History 0730 fluoxetine 20 mg capsule 1 cap PO QAM 10/01/22 Unknown History fluticasone 250 mcg-salmeterol 50 1 puff inhalation DAILY 10/01/22 Unknown History mcg/dose blistr powdr for inhalation (Advair Diskus) fluticasone propionate 50 1 - 2 spray intranasal DAILY PRN 10/01/22 Unknown History mcg/actuation nasal Congestion spray,suspension gabapentin 100 mg capsule 2 cap PO TID 10/01/22 Unknown History insulin lispro 100 unit/mL See Rx Instructions .Route .COMPLEX 10/01/22 Unknown History subcutaneous solution (Humalog U-100 Insulin) lamotrigine 100 mg tablet 1 tab PO BEDTIME 10/01/22 Unknown History lisinopril 5 mg tablet 1 tab PO DAILY@1200 10/01/22 Unknown History melatonin 5 mg tablet 1 tab PO BEDTIME 10/01/22 Unknown History Physical Exam Vital Signs and Narrative: Vital Signs: Last Vital Signs Temp 98.8 F 10/01/22 18:45 Pulse 82 10/01/22 18:45 Resp 14 10/01/22 18:45 BP 110/55 L 10/01/22 18:45 Pulse Ox 99 10/01/22 18:45 O2 Del Method 10/01/22 18:45 BMI result Body Mass Index 29.0 Middle-aged female lying in bed in no distress Neck supple, no JVD Regular rate and rhythm, S1-S2 heard Regular breath sounds bilaterally, no wheezing or crackles appreciated Abdomen soft nontender, no guarding, no rigidity Patient is awake, alert and oriented to self, place, time and person ; no focal motor deficit Msk: left foot wound covered in dressing Psych: Normal mood No pedal edema Results Labs CBC and Chem 7: 10/01/22 15:48 10/01/22 15:48 Labs: Laboratory Results - last 24 hr 10/01/22 10/01/22 10/01/22 15:47 15:48 15:48 MCV 90.3 MCH 29.2 MCHC 32.4 RDW 12.9 Plt Count 380 D MPV 10.2 Immature Gran % (Auto) 0.5 H Neut % (Auto) 81.3 H Lymph % (Auto) 9.7 L [place] % (Auto) 7.3 Eos % (Auto) 1.0 Baso % (Auto) 0.2 Lymph # (Auto) 1.3 [place] # (Auto) 1.0 Eos # (Auto) 0.1 Baso # (Auto) 0.0 Abs Immat Gran (auto) 0.07 H Absolute Neuts (auto) 11.2 H Absolute Nucleated RBC 0.000 Nucleated RBC % (auto) 0.0 ESR 111 H Anion Gap Estim Creat Clear Calc Estimated GFR Random Glucose Lactic Acid 0.9 Calcium Total Bilirubin AST ALT Alkaline Phosphatase C-Reactive Protein Total Protein Albumin COVID-19 (ERICH) COVID-19 IngBoo 10/01/22 10/01/22 15:48 18:49 MCV MCH MCHC RDW Plt Count MPV Immature Gran % (Auto) Neut % (Auto) Lymph % (Auto) [place] % (Auto) Eos % (Auto) Baso % (Auto) Lymph # (Auto) [place] # (Auto) Eos # (Auto) Baso # (Auto) Abs Immat Gran (auto) Absolute Neuts (auto) Absolute Nucleated RBC Nucleated RBC % (auto) ESR Anion Gap 18 Estim Creat Clear Calc 57.4 Estimated GFR 43 Random Glucose 159 H Lactic Acid Calcium 9.3 Total Bilirubin 0.6 AST 61 H ALT 85 H Alkaline Phosphatase 131 H D C-Reactive Protein 30.50 H Total Protein 6.8 Albumin 3.4 L D COVID-19 (ERICH) Negative COVID-19 Clin Com See Note Imaging Radiologist's Impressions: Impressions Foot X-Ray 10/01/22 16:06 IMPRESSION: The soft tissue wound at the level of the fifth metatarsal base with worsening osteolysis and articular surface fragmentation involving the metatarsal base and adjacent cuboid. Findings suggest presence of septic arthritis and osteomyelitis. Chronic subarticular cystic lucency is observed in the adjacent fourth metatarsal base. Assessment and Plan (1) Sepsis: Status: Acute (2) Wound of left foot: Status: Acute (3) Type 2 diabetes mellitus with diabetic polyneuropathy: Qualifiers: Diabetes mellitus programmer business insulin use: with senior living use Qualified Code(s): E11.42 - Type 2 diabetes mellitus with diabetic polyneuropathy; Z79.4 - marketing editor (current) use of insulin Status: Acute (4) Proteinuria: Qualifiers: Proteinuria type: unspecified Qualified Code(s): R80.9 - Proteinuria, unspecified Status: Acute (5) Essential hypertension: Status: Acute (6) Hyperlipidemia LDL goal <100: Status: Acute (7) Asthma: Status: Acute (8) DEVYN (obstructive sleep apnea): Status: Acute Plan This is a 47-year-old female with pertinent history of coronary artery disease status post CABG, 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 #. Sepsis due to left foot abscess -ruptured in the ER. No wound culture was obtained unfortunately. Patient resuscitated with IV crystalloids in the ER. Initiating empiric broad-spectrum antibiotics, vancomycin and Zosyn. Consulted Infectious Disease. Imaging concerning for questionable osteomyelitis/ septic arthritis. Obtaining MRI, may need ortho consult pending MRI results. Lactic acid and blood cultures obtained #. Elevated transaminases -likely due to sepsis #. Insulin dependent DM - On insulin pump at home. Initiating Accu-Cheks with sliding scale insulin. Reduce basal insulin while in the hospital. #. CAD s/p CABG -continue aspirin, hold plavix in case patient needs surgical intervention. Continue lipid-lowering agents #. Essential hypertension -hold po medications in setting of sepsis #. Mood disorder -continue home medications #. Peripheral neuropathy -continue gabapentin #. Asthma -continue home inhaler DVT prohylaxis: Lovenox 40mg daily Full code Diabetic diet Admit as inpatient and will require two night minimum hospital stay for IV antibiotics. MRI pending Quality Stroke Does the patient have a stroke diagnosis?: No VTE Prior VTE?: No VTE Risk Level:: Medical - moderate - high VTE Device Contraindication: Treatment Not Indicated VTE Drug Contraindication: N/A - Med Ordered
--- NOTE | 2022-10-01 19:49 | PHA.MEDREC ---
Pharmacy Consult ? Medication Reconciliation Pharmacy has completed the medication reconciliation. Used claims account specialist to talk to patient and she states she uses all the medications her pharmacy prepackages for her. Using claim history was able to do medication reconciliation for her and confirmed that she did take her doses from earlier in the day before coming to the hospital.
--- NOTE | 2022-10-01 20:15 | PC.NURSE ---
pt at mri
--- NOTE | 2022-10-01 20:33 | PC.NURSE ---
called pharmacy to fix meds
--- NOTE | 2022-10-01 21:00 | PC.NURSE ---
report called pt to be transported to [facility]
[2022-10-01 21:19] VITALS: BMI 30.8
[2022-10-01 21:25] VITALS: BP 118/61; PULSE 70; RESP 16; TEMP 36.4; O2SAT 96
[2022-10-01 21:33] LABS: Glucose, Whole Blood 221 mg/dL (60-115)
[2022-10-01] MEDS: 0.9 % Sodium Chloride Flush 3 ML SYRINGE IVFLUSH (21:55)
--- NOTE | 2022-10-01 22:07 | PHA.PROG ---
Admission Date/Time: October 01, 2022 19:25 Indication: Skin and skin structure Weight in k.3 kg Adjusted body weight in K.7 [place] body weight in K.6 Obesity Dosing Indication % IBW:obese Serum Creatinine - Last 168 Hours 10/01/22 15:48 Creatinine 1.32 Estimated CrCl and GFR - Last 168 Hours 10/01/22 15:48 Estim Creat Clear Calc 57.4 Estimated GFR 43 Vancomycin Loading Dose: 2000 mg Current Vancomycin Dosing Regimen: 500 mg Q12H Vancomycin Monitoring using AUC goal of 400 - 600 range with trough as surrogate marker: 453 Date and Time for next Vancomycin Level to be drawn: 10/03 @0800 Pharmacist Comments on Vancomycin Plan: Obese model used patient under 65 yrs old, Q12H dosing next trough to be pulled after 3 doses, 10/03 @0800 to ensure safety vs efficacy predicted AUC 453 mg/L/hr Vancomycin dosing will take advantage of [employer] as a clinical decision support tool that uses Bayesian modeling to calculate individual patient's pharmacokinetic parameters and forecast the patient's drug concentration time course with the target goal AUC 24 range of 400 - 600 mg/L/hr.
[2022-10-01] MEDS: Insulin Lispro 100 UNIT/ML 3 ML VIAL SUBCUT (22:08)
[2022-10-01] MEDS: Insulin Glargine,Hum.rec.anlog 100 UNIT/ML 10 ML VIAL 30 UNIT SUBCUT (22:08)
[2022-10-01] MEDS: Gabapentin 100 MG CAPSULE 200 MG PO (22:09)
[2022-10-01] MEDS: Enoxaparin Sodium 40 MG/0.4 ML SYRINGE SUBCUT (22:09)
[2022-10-01] MEDS: Atorvastatin Calcium 80 MG TABLET PO (22:09)
[2022-10-01] MEDS: Doxepin HCl 10 MG CAPSULE PO (22:10)
[2022-10-01] MEDS: Melatonin 3 MG TABLET 6 MG PO (22:21)
[2022-10-01] MEDS: lamoTRIgine 100 MG TABLET PO (22:21)
[2022-10-02] VITALS (9 sets, daily range): BP systolic 102–122; BP diastolic 56–77; PULSE 62–75; RESP 16–20; TEMP 35.9–36.9; O2SAT 95–98; BMI 30.8
[2022-10-02] MEDS: Piperacillin Sodium/Tazobactam 4.5 GM in 0.9 % Sodium Chloride 100 ML IV ×4 (00:18→18:43)
[2022-10-02 05:54] LABS: MANUAL DIFF FLAG NO
[2022-10-02 06:00] LABS: Basophils Percent Auto 0.2 % (0-2); Eosinophils Absolute Auto 0.3 X10*3/uL (0.0-0.4); Eosinophils Percent Auto 3.4 % (0-4); Hematocrit 27.3 % (37.0-47.0); Hemoglobin 8.8 g/dl (12.0-16.0); Imm Gran Abs Auto 0.04 X10*3/uL (0.00-0.03); Imm Gran Pct Auto 0.4 % (0.0-0.4); Lymphocytes Absolute Auto 1.4 X10*3/uL (1.2-4.9); Lymphocytes Percent Auto 15.5 % (20-40); Mean Corpuscular HGB Conc 32.2 g/dl (31.0-35.0); Mean Corpuscular Hemoglobin 29.5 pg (27.0-33.0); Mean Corpuscular Volume 91.6 fL (80.0-98.0); Mean Platelet Volume 10.1 fL (9.4-12.3); Monocytes Absolute Auto 0.9 X10*3/uL (0.1-1.2); Monocytes Percent Auto 9.5 % (2-11); Neutrophils Absolute Auto 6.5 x10*3/uL (2.0-8.3); Platelet Count 326 X10*3/uL (160-400); Red Blood Count 2.98 X10*6/uL (4.20-5.50); Red Cell Distribution Width 13.2 % (11.0-16.0); White Blood Count 9.2 X10*3/uL (4.8-10.8)
[2022-10-02 06:13] LABS: Anion Gap 12 (12-20); Blood Urea Nitrogen 21 mg/dL (9-16); Calcium 8.6 mg/dL (8.4-10.2); Carbon Dioxide 28 mmol/L (22-29); Chloride 102 mmol/L (96-108); Creatinine Clr Calc Pharmacy 74.3; Estimated Glomerular Filt Rate 56; Glucose Random 228 mg/dL (60-115); Potassium 4.1 mmol/L (3.3-5.1); Sodium 138 mmol/L (135-145)
--- NOTE | 2022-10-02 06:56 | HE.PHANOTE ---
Vancomycin Dosing Patient's renal function has improved. Will increase dose to 750 mg Q12H. Expected AUC 543 with a trough of 17.6. Trough to be drawn 10/03 @ 0800. Arlene Cerda PharmD
[2022-10-02 07:38] LABS: Glucose, Whole Blood 214 mg/dL (60-115)
[2022-10-02] MEDS: Insulin Lispro 100 UNIT/ML 3 ML VIAL SUBCUT ×2 (07:53→12:00)
[2022-10-02] MEDS: Fluticasone/Vilanterol 100/25 BLST.W.DEV 1 PUFF INHALE (07:53)
[2022-10-02] MEDS: 0.9 % Sodium Chloride Flush 3 ML SYRINGE IVFLUSH ×3 (07:54→19:45)
[2022-10-02] MEDS: Ezetimibe 10 MG TABLET PO (07:54)
[2022-10-02] MEDS: FLUoxetine HCl 20 MG CAPSULE PO (07:54)
[2022-10-02] MEDS: Gabapentin 100 MG CAPSULE 200 MG PO ×3 (07:54→20:22)
[2022-10-02] MEDS: Omeprazole 20 MG CAPSULE.DR PO (07:54)
--- NOTE | 2022-10-02 10:14 | P.PNIM_ITS ---
Subjective Subjective Date of Service: 10/02/22 Interval History: cc: foot pain interval history:unchanged Cardiovascular Cardiovascular: Reports no additional cardiovascular complaints Respiratory Respiratory: Reports no additional respiratory complaints Physical Exam Vital Signs: Vital Signs: Last Vital Signs Temp 96.7 F L 10/02/22 07:35 Pulse 73 10/02/22 07:56 Resp 18 10/02/22 07:56 BP 108/56 L 10/02/22 07:35 Pulse Ox 95 10/02/22 07:35 O2 Del Method 10/02/22 07:35 BMI result Body Mass Index 30.8 General: AO X 3, no acute distress Resp: CTA bilateral, no accessory muscles used CVS: S1,S2,RRR GI: soft, non tender, non distended Neuro: motor grossly intact, alert Psych: appropriate affect, appropriate insight LLE foot ulcer Objective Data Active Medications Acetaminophen (Acetaminophen 325 Mg Tablet) 650 mg PO Q6H PRN PRN Reason: Pain, Mild (Pain Scale 1-3) Aspirin (Aspirin Enteric Coated 81 Mg Tablet.) 81 mg PO DAILY@1700 [facility] Atorvastatin Calcium (Atorvastatin Calcium 80 Mg Tablet) 80 mg PO BEDTIME [facility] Last Admin: 10/01/22 22:09 Dose: 80 mg Documented By: SANDOVAL Dextrose (Dextrose 50 % 25 Gm/50 Ml Syringe) 25 gm IVPUSH Q15M PRN; Protocol PRN Reason: per Hypoglycemia Standing Ord. Digoxin (Digoxin 0.125 Mg Tablet) 0.125 mg PO MOWEFR@0730 [facility] Doxepin HCl (Doxepin Hcl 10 Mg Capsule) 10 mg PO BEDTIME [facility] Last Admin: 10/01/22 22:10 Dose: 10 mg Documented By: SANDOVAL Ezetimibe (Ezetimibe 10 Mg Tablet) 10 mg PO DAILY@0730 [facility] Last Admin: 10/02/22 07:54 Dose: 10 mg Documented By: EUN Enoxaparin Sodium (Enoxaparin Sodium 40 Mg/0.4 Ml Syringe) 40 mg SUBCUT Q24H [facility] Last Admin: 10/01/22 22:09 Dose: 40 mg Documented By: SANDOVAL Ferrous Sulfate (Ferrous Sulfate 324 Mg Tablet.) 324 mg PO DAILY@1200,1700 [facility] Fluoxetine HCl (Fluoxetine Hcl 20 Mg Capsule) 20 mg PO DAILY@0730 [facility] Last Admin: 10/02/22 07:54 Dose: 20 mg Documented By: EUN Fluticasone Propionate (Fluticasone Propionate Nasal 16 Gm [place]) 1 spray NOSTRIL-B DAILY PRN PRN Reason: Congestion Fluticasone/Vilanterol (Fluticasone/Vilanterol 100/25 Blst.W.Dev) 1 puff INHALE DAILY [facility] Last Admin: 10/02/22 07:53 Dose: 1 puff Documented By: BRIDGER Gabapentin (Gabapentin 100 Mg Capsule) 200 mg PO TID [facility] Last Admin: 10/02/22 07:54 Dose: 200 mg Documented By: EUN Glucose (Glucose Gel 15 Gm Gel..Gram.) 15 gm PO Q15M PRN; Protocol PRN Reason: per Hypoglycemia Standing Ord. Piperacillin Sod/Tazobactam (Sod 4.5 gm/ Sodium Chloride) 100 mls @ 200 mls/hr IV Q6H [facility] Last Infusion: 10/02/22 08:34 Dose: 0 mls/hr Documented By: MAHI Vancomycin HCl 750 mg/ Sodium (Chloride) 265 mls @ 265 mls/hr IV Q12H [facility] Insulin Glargine (Insulin Glargine,Hum.Rec.Anlog 100 Unit/Ml 10 Ml Vial) 30 unit SUBCUT BEDTIME [facility] Last Admin: 10/01/22 22:08 Dose: 30 unit Documented By: SANDOVAL Insulin Human Lispro (Insulin Lispro 100 Unit/Ml 3 Ml Vial) 0 unit SUBCUT QIDA [facility]; Protocol Last Admin: 10/02/22 07:53 Dose: 4 unit Documented By: EUN Lamotrigine (Lamotrigine 100 Mg Tablet) 100 mg PO BEDTIME [facility] Last Admin: 10/01/22 22:21 Dose: 100 mg Documented By: SANDOVAL Melatonin (Melatonin 3 Mg Tablet) 6 mg PO BEDTIME PRN PRN Reason: Insomnia Melatonin (Melatonin 3 Mg Tablet) 6 mg PO BEDTIME [facility] Last Admin: 10/01/22 22:21 Dose: 6 mg Documented By: SANDOVAL Non-Formulary Medication (Bempedoic Acid [Nexletol]) 180 mg PO DAILY@0730 [facility] Omeprazole (Omeprazole 20 Mg [place].) 20 mg PO DAILY@0730 [facility] Last Admin: 10/02/22 07:54 Dose: 20 mg Documented By: EUN Ondansetron HCl (Ondansetron Hcl 4 Mg/2 Ml Vial) 4 mg IVPUSH Q8H PRN PRN Reason: Nausea and Vomiting Pharmacy Consult (Consult Rx Perform Med Rec) 1 each MISCELLANE ONCE PRN PRN Reason: Consult order Pharmacy Consult (Consult Rx Vancomycin Dosing) 1 each MISCELLANE DAILY PRN PRN Reason: Consult order Sodium Chloride (0.9 % Sodium Chloride Flush 3 Ml Syringe) 3 ml IVFLUSH QSHIFT [facility] Last Admin: 10/02/22 07:54 Dose: 3 ml Documented By: EUN Labs CBC & Chem 7: 10/02/22 05:38 10/02/22 05:38 Labs: Laboratory Results - last 24 hr 10/01/22 10/01/22 10/01/22 15:47 15:48 15:48 MCV 90.3 MCH 29.2 MCHC 32.4 RDW 12.9 Plt Count 380 D MPV 10.2 Immature Gran % (Auto) 0.5 H Neut % (Auto) 81.3 H Lymph % (Auto) 9.7 L [place] % (Auto) 7.3 Eos % (Auto) 1.0 Baso % (Auto) 0.2 Lymph # (Auto) 1.3 [place] # (Auto) 1.0 Eos # (Auto) 0.1 Baso # (Auto) 0.0 Abs Immat Gran (auto) 0.07 H Absolute Neuts (auto) 11.2 H Absolute Nucleated RBC 0.000 Nucleated RBC % (auto) 0.0 ESR 111 H Anion Gap Estim Creat Clear Calc Estimated GFR POC Glucose Random Glucose Lactic Acid 0.9 Calcium Total Bilirubin AST ALT Alkaline Phosphatase C-Reactive Protein Total Protein Albumin COVID-19 (ERICH) COVID-19 Clin Com 10/01/22 10/01/22 10/01/22 15:48 18:49 21:29 MCV MCH MCHC RDW Plt Count MPV Immature Gran % (Auto) Neut % (Auto) Lymph % (Auto) [place] % (Auto) Eos % (Auto) Baso % (Auto) Lymph # (Auto) [place] # (Auto) Eos # (Auto) Baso # (Auto) Abs Immat Gran (auto) Absolute Neuts (auto) Absolute Nucleated RBC Nucleated RBC % (auto) ESR Anion Gap 18 Estim Creat Clear Calc 57.4 Estimated GFR 43 POC Glucose 221 H Random Glucose 159 H Lactic Acid Calcium 9.3 Total Bilirubin 0.6 AST 61 H ALT 85 H Alkaline Phosphatase 131 H D C-Reactive Protein 30.50 H Total Protein 6.8 Albumin 3.4 L D COVID-19 (ERICH) Negative COVID-19 Clin Com See Note 10/02/22 10/02/22 10/02/22 05:38 05:38 05:38 MCV 91.6 MCH 29.5 MCHC 32.2 RDW 13.2 Plt Count 326 MPV 10.1 Immature Gran % (Auto) 0.4 Neut % (Auto) 71.0 Lymph % (Auto) 15.5 L [place] % (Auto) 9.5 Eos % (Auto) 3.4 Baso % (Auto) 0.2 Lymph # (Auto) 1.4 [place] # (Auto) 0.9 Eos # (Auto) 0.3 Baso # (Auto) 0.0 Abs Immat Gran (auto) 0.04 H Absolute Neuts (auto) 6.5 Absolute Nucleated RBC 0.000 Nucleated RBC % (auto) 0.0 ESR Anion Gap 12 Estim Creat Clear Calc 74.3 Cancelled Estimated GFR 56 Cancelled POC Glucose Random Glucose 228 H Lactic Acid Calcium 8.6 D Total Bilirubin AST ALT Alkaline Phosphatase C-Reactive Protein Total Protein Albumin COVID-19 (ERICH) COVID-19 Clin Com 10/02/22 07:34 MCV MCH MCHC RDW Plt Count MPV Immature Gran % (Auto) Neut % (Auto) Lymph % (Auto) [place] % (Auto) Eos % (Auto) Baso % (Auto) Lymph # (Auto) [place] # (Auto) Eos # (Auto) Baso # (Auto) Abs Immat Gran (auto) Absolute Neuts (auto) Absolute Nucleated RBC Nucleated RBC % (auto) ESR Anion Gap Estim Creat Clear Calc Estimated GFR POC Glucose 214 H Random Glucose Lactic Acid Calcium Total Bilirubin AST ALT Alkaline Phosphatase C-Reactive Protein Total Protein Albumin COVID-19 (ERICH) COVID-19 Clin Com Assessment and Plan (1) Sepsis: Status: Acute Plan 47-year-old female with pertinent history of coronary artery disease status post CABG, 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 Sepsis (not severe) due to left foot abscess due to DM with likely acute OM vanc, zosyn, ID follow up cultures normocytic anemia likely inflammatory due to above monitor DM insulin CAD s/p cabg continue asa, lipitor Essential hypertension relatively hypotesnive, meds on hold Mood disorder lamictal Peripheral neuropathy continue gabapentin moderate persistent Asthma -continue breo not in exacerbation DVT prohylaxis: Lovenox 40mg daily Full code reason for continued hospitalization:iv abx for OM Quality Stroke Does the patient have a stroke diagnosis?: No VTE Prior VTE?: No VTE Risk Level:: Medical - moderate - high VTE Device Contraindication: Treatment Not Indicated VTE Drug Contraindication: N/A - Med Ordered
[2022-10-02] MEDS: vancomycin HCL 750 MG in 0.9 % Sodium Chloride 250 ML 265 MG IV ×2 (10:45→22:49)
[2022-10-02 10:53] LABS: Glucose, Whole Blood 261 mg/dL (60-115)
[2022-10-02 15:40] LABS: Glucose, Whole Blood 227 mg/dL (60-115)
[2022-10-02] MEDS: Aspirin Enteric Coated 81 MG TABLET.DR PO (16:39)
[2022-10-02] MEDS: Ferrous Sulfate 324 MG TABLET.DR PO (16:39)
[2022-10-02 19:18] LABS: Glucose, Whole Blood 194 mg/dL (60-115)
--- NOTE | 2022-10-02 19:39 | PC.NURSE ---
pt has own insulin fruit checker with pump, dr Robin notified to use pt's own pump.
[2022-10-02] MEDS: Enoxaparin Sodium 40 MG/0.4 ML SYRINGE SUBCUT (19:45)
[2022-10-02] MEDS: Doxepin HCl 10 MG CAPSULE PO (20:22)
[2022-10-02] MEDS: lamoTRIgine 100 MG TABLET PO (20:22)
[2022-10-02] MEDS: Atorvastatin Calcium 80 MG TABLET PO (20:22)
[2022-10-02] MEDS: Melatonin 3 MG TABLET 6 MG PO (20:22)
--- NOTE | 2022-10-02 22:02 | W.PM.IDCN ---
History of Present Illness Data of Consult Service Date: 10/02/22 Requesting physician: Redd Machado Primary Care Provider: Yolie Desir MD [facility] Reason for consult: osteomyelitis foot and abscess She presents with three days of foot pain and discharge left foot. She has no fever or chills. She has expressed purulent drainage from lateral foot. She has MRI left foot 4/5 metatarsal osteomyelitis and 2/3 as well. She has abscess 3 cm laterally. Review of Systems Review of Systems: Yes all other systems are reviewed and are negative [facility] Past Medical History Medical History Anxiety CAD (coronary artery disease) Depression DM2 (diabetes mellitus, type 2) Essential hypertension Hyperlipidemia LDL goal <100 Obesity due to excess calories Proteinuria Retinopathy Type 2 diabetes mellitus with diabetic polyneuropathy Type 2 diabetes mellitus with hyperglycemia, with long-term current use of insulin Type 2 diabetes mellitus with other diabetic kidney complication Family History Family History Maternal Grandmother Diabetes Brother Diabetes Family history: reviewed and not pertinent Surgical History Surgical History Hx of coronary artery bypass surgery Social History Social History Household Members: Family Household Members Other:: 1 Housing: Apartment Alcohol intake: never Patient Tobacco Use Status: Never used Tobacco Second Hand Smoke Exposure: No Meds Allergies Allergy/AdvReac Type Severity Reaction Status Date / Time sulfamethoxazole Allergy Severe FACIAL Verified 07/13/22 10:40 [From BACTRIM] SWELLING trimethoprim [From BACTRIM] Allergy Severe FACIAL Verified 07/13/22 10:40 SWELLING levofloxacin [From LEVAQUIN] Allergy Intermediate REDNESS, Verified 07/13/22 10:40 SWELLING ITCHINESS AT IV SITE Active Medications: Current Medications Acetaminophen (Acetaminophen 325 Mg Tablet) 650 mg PO Q6H PRN PRN Reason: Pain, Mild (Pain Scale 1-3) Aspirin (Aspirin Enteric Coated 81 Mg Tablet.) 81 mg PO DAILY@1700 [facility] Last Admin: 10/02/22 16:39 Dose: 81 mg Atorvastatin Calcium (Atorvastatin Calcium 80 Mg Tablet) 80 mg PO BEDTIME [facility] Last Admin: 10/02/22 20:22 Dose: 80 mg Dextrose (Dextrose 50 % 25 Gm/50 Ml Syringe) 25 gm IVPUSH Q15M PRN; Protocol PRN Reason: per Hypoglycemia Standing Ord. Digoxin (Digoxin 0.125 Mg Tablet) 0.125 mg PO MOWEFR@0730 [facility] Doxepin HCl (Doxepin Hcl 10 Mg Capsule) 10 mg PO BEDTIME [facility] Last Admin: 10/02/22 20:22 Dose: 10 mg Ezetimibe (Ezetimibe 10 Mg Tablet) 10 mg PO DAILY@30 [facility] Last Admin: 10/02/22 07:54 Dose: 10 mg Enoxaparin Sodium (Enoxaparin Sodium 40 Mg/0.4 Ml Syringe) 40 mg SUBCUT Q24H [facility] Last Admin: 10/02/22 19:45 Dose: 40 mg Ferrous Sulfate (Ferrous Sulfate 324 Mg Tablet.Dr) 324 mg PO DAILY@1200,1700 [facility] Last Admin: 10/02/22 16:39 Dose: 324 mg Fluoxetine HCl (Fluoxetine Hcl 20 Mg Capsule) 20 mg PO DAILY@729 [facility] Last Admin: 10/02/22 07:54 Dose: 20 mg Fluticasone Propionate (Fluticasone Propionate Nasal 16 Gm [place]) 1 spray NOSTRIL-B DAILY PRN PRN Reason: Congestion Fluticasone/Vilanterol (Fluticasone/Vilanterol 100/25 Blst.W.Dev) 1 puff INHALE DAILY [facility] Last Admin: 10/02/22 07:53 Dose: 1 puff Gabapentin (Gabapentin 100 Mg Capsule) 200 mg PO TID [facility] Last Admin: 10/02/22 20:22 Dose: 200 mg Glucose (Glucose Gel 15 Gm Gel..Gram.) 15 gm PO Q15M PRN; Protocol PRN Reason: per Hypoglycemia Standing Ord. Piperacillin Sod/Tazobactam (Sod 4.5 gm/ Sodium Chloride) 100 mls @ 200 mls/hr IV Q6H [facility] Last Infusion: 10/02/22 19:24 Dose: Infused Vancomycin HCl 750 mg/ Sodium (Chloride) 265 mls @ 265 mls/hr IV Q12H [facility] Last Infusion: 10/02/22 12:01 Dose: Infused Insulin Glargine (Insulin Glargine,Hum.Rec.Anlog 100 Unit/Ml 10 Ml Vial) 30 unit SUBCUT BEDTIME [facility] Last Admin: 10/02/22 20:24 Dose: Not Given Insulin Human Lispro (Insulin Lispro 100 Unit/Ml 3 Ml Vial) 0 unit SUBCUT QIDACHS [facility]; Protocol Last Admin: 10/02/22 20:25 Dose: Not Given Lamotrigine (Lamotrigine 100 Mg Tablet) 100 mg PO BEDTIME [facility] Last Admin: 10/02/22 20:22 Dose: 100 mg Melatonin (Melatonin 3 Mg Tablet) 6 mg PO BEDTIME PRN PRN Reason: Insomnia Melatonin (Melatonin 3 Mg Tablet) 6 mg PO BEDTIME [facility] Last Admin: 10/02/22 20:22 Dose: 6 mg Non-Formulary Medication (Bempedoic Acid [Nexletol]) 180 mg PO DAILY@729 [facility] Omeprazole (Omeprazole 20 Mg Capsule.Dr) 20 mg PO DAILY@729 [facility] Last Admin: 10/02/22 07:54 Dose: 20 mg Ondansetron HCl (Ondansetron Hcl 4 Mg/2 Ml Vial) 4 mg IVPUSH Q8H PRN PRN Reason: Nausea and Vomiting Pharmacy Consult (Consult Rx Perform Med Rec) 1 each MISCELLANE ONCE PRN PRN Reason: Consult order Pharmacy Consult (Consult Rx Vancomycin Dosing) 1 each MISCELLANE DAILY PRN PRN Reason: Consult order Sodium Chloride (0.9 % Sodium Chloride Flush 3 Ml Syringe) [facility] Admin: 10/02/22 19:45 Dose: 3 ml Home Medications Medication Instructions Recorded Confirmed Last Taken Type aspirin 81 mg tablet,delayed 81 mg PO DAILY@17010/03/20 10/01/22 10/01/22 History release (Adult Aspirin Regimen) clopidogrel 75 mg tablet 75 mg PO DAILY@72910/03/20 10/01/22 10/01/22 History 0730 digoxin 125 mcg (0.125 mg) tablet 125 mcg PO MOWEFR@72910/03/20 10/01/22 10/01/22 History 0730 ferrous gluconate 324 mg (38 mg 324 mg PO DAILY@1200,1700 10/03/20 10/01/22 10/01/22 12:00 History iron) tablet isosorbide mononitrate 30 mg 30 mg PO DAILY@72910/03/20 10/01/22 10/01/22 07:30 History tablet,extended release 24 hr lisinopril 10 mg tablet 10 mg PO DAILY@0730 10/03/20 10/01/22 10/01/22 07:30 History pantoprazole 40 mg tablet,delayed 40 mg PO DAILY@0730 10/03/20 10/01/22 10/01/22 07:30 History release spironolactone 25 mg tablet 25 mg PO DAILY@0730 10/03/20 10/01/22 10/01/22 07:30 History torsemide 20 mg tablet 60 mg PO BID 10/03/20 10/01/22 10/01/22 07:30 History bempedoic acid 180 mg tablet 180 mg PO DAILY@72910/01/22 10/01/22 10/01/22 07:30 History (Nexletol) doxepin 10 mg capsule 10 mg PO BEDTIME 10/01/22 10/01/22 09/30/22 History ezetimibe 10 mg tablet 10 mg PO DAILY@72910/01/22 10/01/22 10/01/22 History 0730 fluoxetine 20 mg capsule 20 mg PO DAILY@30 10/01/22 10/01/22 10/01/22 History 0730 fluticasone 250 mcg-salmeterol 50 1 puff inhalation BID 10/01/22 10/01/22 10/01/22 History mcg/dose blistr powdr for 0730 inhalation (Advair Diskus) fluticasone propionate 50 1 - 2 spray intranasal DAILY PRN 10/01/22 10/01/22 Unknown History mcg/actuation nasal Congestion spray,suspension gabapentin 100 mg capsule 200 mg PO TID 10/01/22 10/01/22 10/01/22 12:00 History insulin lispro 100 unit/mL See Rx Instructions .Route .COMPLEX 10/01/22 10/01/22 10/01/22 History subcutaneous solution (Humalog U-100 Insulin) lamotrigine 100 mg tablet 100 mg PO BEDTIME 10/01/22 10/01/22 09/30/22 History lisinopril 5 mg tablet 5 mg PO DAILY@1200 10/01/22 10/01/22 10/01/22 12:00 History melatonin 5 mg tablet 5 mg PO BEDTIME 10/01/22 10/01/2222 History Physical Exam Vital Signs: Vital Signs: Last Vital Signs Temp 97.6 F 10/02/22 19:08 Pulse 73 10/02/22 19:08 Resp 17 10/02/22 19:08 BP 122/60 10/02/22 19:08 Pulse Ox 98 10/02/22 19:08 O2 Del Method 10/02/22 19:08 BMI result Body Mass Index 30.8 Const: General: cooperative HEENT: Head: Yes normal to inspection Face and sinus: Yes normal facial exam Mouth: Normal oral and palatal mucosa present Teeth and gingiva: dentition normal Eyes: General: appearance normal, both eyes and all related structures Pupils: Equal, round and reactive pupils present Resp: Effort & Inspection: normal respiratory effort Cardio: Rate: regular rate Rhythm: regular rhythm GI: Palpation (GI): Soft to palpation and nontender : General: Yes no CVA tenderness Back/Spine/Pelvis: Back: no CVA tenderness Skin: General skin exam: no rashes or lesions noted Neuro: General: moves all extremities Cranial nerves: Yes Equal, round and reactive pupils present Extrem: Other: lateral oozing area one cm, redness foot Psych: Appearance: grossly normal Results Labs CBC & Chem 7: 10/02/22 05:38 10/02/22 05:38 Labs: Short CBC 10/02/22 Range/Units 05:38 WBC 9.2 (4.8-10.8) X10*3/uL Hgb 8.8 L (12.0-16.0) g/dl Hct 27.3 L (37.0-47.0) % Plt Count 326 (160-400) X10*3/uL BMP 10/02/22 10/02/22 05:38 05:38 Sodium 138 Potassium 4.1 Chloride 102 Carbon Dioxide 28 BUN 21 H Creatinine 1.05 Cancelled Calcium 8.6 D Microbiology Microbiology Results: Microbiology 10/01/22 18:05 Blood - Venous Blood Culture - Preliminary No growth after 24 hours. 10/01/22 15:47 Blood - Venous Blood Culture - Preliminary No growth after 24 hours. Assessment and Plan (1) Sepsis: Status: Acute She has osteomyelitis left foot with abscess Diabetes causes issues with possible gram negative and gram positives. She needs six week IV antibiotics (2) Wound of left foot: Status: Acute Plan Six weeks IV antibiotics possibly Ertapenem or Vancomycin depends on culture. Surgery drain abscess if able.
[2022-10-03] VITALS (7 sets, daily range): BP systolic 103–126; BP diastolic 51–72; PULSE 60–70; RESP 16–18; TEMP 36.1–36.8; O2SAT 92–100
[2022-10-03] MEDS: Piperacillin Sodium/Tazobactam 4.5 GM in 0.9 % Sodium Chloride 100 ML IV ×4 (00:06→18:39)
[2022-10-03] MEDS: Ezetimibe 10 MG TABLET PO (06:38)
[2022-10-03] MEDS: Omeprazole 20 MG CAPSULE.DR PO (06:38)
[2022-10-03] MEDS: FLUoxetine HCl 20 MG CAPSULE PO (06:38)
[2022-10-03 07:29] LABS: Glucose, Whole Blood 86 mg/dL (60-115)
[2022-10-03] MEDS: Gabapentin 100 MG CAPSULE 200 MG PO ×3 (07:58→20:13)
[2022-10-03] MEDS: 0.9 % Sodium Chloride Flush 3 ML SYRINGE IVFLUSH ×3 (07:59→19:18)
[2022-10-03] MEDS: Fluticasone/Vilanterol 100/25 BLST.W.DEV 1 PUFF INHALE (08:05)
[2022-10-03 08:08] LABS: Hematocrit 27.4 % (37.0-47.0); Hemoglobin 8.4 g/dl (12.0-16.0); Mean Corpuscular HGB Conc 30.7 g/dl (31.0-35.0); Mean Corpuscular Volume 94.5 fL (80.0-98.0); Mean Platelet Volume 9.5 fL (9.4-12.3); Platelet Count 298 X10*3/uL (160-400); Red Cell Distribution Width 13.1 % (11.0-16.0); White Blood Count 6.1 X10*3/uL (4.8-10.8)
[2022-10-03 08:25] LABS: Anion Gap 12 (12-20); Blood Urea Nitrogen 12 mg/dL (9-16); Calcium 8.7 mg/dL (8.4-10.2); Carbon Dioxide 29 mmol/L (22-29); Chloride 107 mmol/L (96-108); Creatinine Clr Calc Pharmacy 92.9; Estimated Glomerular Filt Rate > 60; Glucose Fasting 91 mg/dL (60-99); Potassium 4.6 mmol/L (3.3-5.1); Sodium 143 mmol/L (135-145)
[2022-10-03 08:50] LABS: Vancomycin Trough 10.3 mcg/mL (10.0-20.0)
--- NOTE | 2022-10-03 09:05 | HE.PHANOTE ---
Vancomycin Dosing Addendum Patient Trough is 10.3 today. Level is expected to continue to decrease with improvement in renal function. Will increase dose to 1000 mg Q12H and will re-evaluate in 24 hours. Next trough to be drawn 09/03 @ 0800. Pharmacy will continue to monitor renal function. Arlene Cerda, PharmD
--- NOTE | 2022-10-03 10:00 | P.CONGS_ITS ---
History of Present Illness Consult details Consult date: 10/03/22 Narrative: 47-year-old female with multiple medical problems including diabetes, coronary disease, and obstructive sleep apnea, admitted because of foot wound. She says she has had this for several months . Says she has been following a wound clinic for this. She says that this seemed to have worsened 3 days prior to admission. she had some swelling on the area and this drained spontaneously in the ER. She then has had an open wound. She currently describes mild Pain. She says her blood sugars are usually well controlled. She denies any fever or chills. Review of Systems Constitutional: Constitutional: Denies chills and Denies fever(s) Cardiovascular: Cardiovascular: Denies chest pain, Denies dyspnea and Denies dyspnea on exertion Respiratory: Respiratory: Denies cough, Denies dyspnea and Denies dyspnea on exertion Gastrointestinal: Gastrointestinal: Denies hematochezia and Denies change in bowel habits Genitourinary: Genitourinary: Denies hematuria Musculoskeletal: Musculoskeletal: Denies back pain and Denies limited range of motion Neurologic: Denies focal weakness and Denies convulsions Psychiatric: Psychiatric: Denies depression and Denies mood swings PMFSH Past Medical History Medical History Anxiety CAD (coronary artery disease) Depression DM2 (diabetes mellitus, type 2) Essential hypertension Hyperlipidemia LDL goal <100 Obesity due to excess calories Proteinuria Retinopathy Type 2 diabetes mellitus with diabetic polyneuropathy Type 2 diabetes mellitus with hyperglycemia, with long-term current use of insulin Type 2 diabetes mellitus with other diabetic kidney complication Family History Family History Maternal Grandmother Diabetes Brother Diabetes Family history: reviewed and not pertinent Surgical History Surgical History Hx of coronary artery bypass surgery Social History Social History Household Members: Family Household Members Other:: 1 Housing: Apartment Alcohol intake: never Patient Tobacco Use Status: Never used Tobacco Second Hand Smoke Exposure: No Meds Allergies Allergy/AdvReac Type Severity Reaction Status Date / Time sulfamethoxazole Allergy Severe FACIAL Verified 07/13/22 10:40 [From BACTRIM] SWELLING trimethoprim [From BACTRIM] Allergy Severe FACIAL Verified 07/13/22 10:40 SWELLING levofloxacin [From LEVAQUIN] Allergy Intermediate REDNESS, Verified 07/13/22 10:40 SWELLING ITCHINESS AT IV SITE Active Medications: Current Medications Acetaminophen (Acetaminophen 325 Mg Tablet) 650 mg PO Q6H PRN PRN Reason: Pain, Mild (Pain Scale 1-3) Aspirin (Aspirin Enteric Coated 81 Mg Tablet.) 81 mg PO DAILY@1700 [facility] Last Admin: 10/02/22 16:39 Dose: 81 mg Atorvastatin Calcium (Atorvastatin Calcium 80 Mg Tablet) 80 mg PO BEDTIME [facility] Last Admin: 10/02/22 20:22 Dose: 80 mg Dextrose (Dextrose 50 % 25 Gm/50 Ml Syringe) 25 gm IVPUSH Q15M PRN; Protocol PRN Reason: per Hypoglycemia Standing Ord. Digoxin (Digoxin 0.125 Mg Tablet) 0.125 mg PO MOWEFR@0730 [facility] Doxepin HCl (Doxepin Hcl 10 Mg Capsule) 10 mg PO BEDTIME [facility] Last Admin: 10/02/22 20:22 Dose: 10 mg Ezetimibe (Ezetimibe 10 Mg Tablet) 10 mg PO DAILY@0730 [facility] Last Admin: 10/03/22 06:38 Dose: 10 mg Enoxaparin Sodium (Enoxaparin Sodium 40 Mg/0.4 Ml Syringe) 40 mg SUBCUT Q24H [facility] Last Admin: 10/02/22 19:45 Dose: 40 mg Ferrous Sulfate (Ferrous Sulfate 324 Mg Tablet.) 324 mg PO DAILY@1200,1700 [facility] Last Admin: 10/02/22 16:39 Dose: 324 mg Fluoxetine HCl (Fluoxetine Hcl 20 Mg Capsule) 20 mg PO DAILY@0730 [facility] Last Admin: 10/03/22 06:38 Dose: 20 mg Fluticasone Propionate (Fluticasone Propionate Nasal 16 Gm [place]) 1 spray NOSTRIL-B DAILY PRN PRN Reason: Congestion Fluticasone/Vilanterol (Fluticasone/Vilanterol 100/25 Blst.W.Dev) 1 puff INHALE DAILY [facility] Last Admin: 10/03/22 08:05 Dose: 1 puff Gabapentin (Gabapentin 100 Mg Capsule) 200 mg PO TID [facility] Last Admin: 10/03/22 07:58 Dose: 200 mg Glucose (Glucose Gel 15 Gm Gel..Gram.) 15 gm PO Q15M PRN; Protocol PRN Reason: per Hypoglycemia Standing Ord. Piperacillin Sod/Tazobactam (Sod 4.5 gm/ Sodium Chloride) 100 mls @ 200 mls/hr IV Q6H [facility] Last Infusion: 10/03/22 07:09 Dose: Infused Vancomycin HCl 1,000 mg/ (Sodium Chloride) 270 mls @ 270 mls/hr IV Q12H [facility] Insulin Glargine (Insulin Glargine,Hum.Rec.Anlog 100 Unit/Ml 10 Ml Vial) 30 unit SUBCUT BEDTIME [facility] Last Admin: 10/02/22 20:24 Dose: Not Given Insulin Human Lispro (Insulin Lispro 100 Unit/Ml 3 Ml Vial) 0 unit SUBCUT QIDACHS [facility]; Protocol Last Admin: 10/03/22 07:56 Dose: Not Given Lamotrigine (Lamotrigine 100 Mg Tablet) 100 mg PO BEDTIME [facility] Last Admin: 10/02/22 20:22 Dose: 100 mg Melatonin (Melatonin 3 Mg Tablet) 6 mg PO BEDTIME PRN PRN Reason: Insomnia Melatonin (Melatonin 3 Mg Tablet) 6 mg PO BEDTIME [facility] Last Admin: 10/02/22 20:22 Dose: 6 mg Non-Formulary Medication (Bempedoic Acid [Nexletol]) 180 mg PO DAILY@729 [facility] Omeprazole (Omeprazole 20 Mg Capsule.Dr) 20 mg PO DAILY@729 [facility] Last Admin: 10/03/22 06:38 Dose: 20 mg Ondansetron HCl (Ondansetron Hcl 4 Mg/2 Ml Vial) 4 mg IVPUSH Q8H PRN PRN Reason: Nausea and Vomiting Pharmacy Consult (Consult Rx Perform Med Rec) 1 each MISCELLANE ONCE PRN PRN Reason: Consult order Pharmacy Consult (Consult Rx Vancomycin Dosing) 1 each MISCELLANE DAILY PRN PRN Reason: Consult order Sodium Chloride (0.9 % Sodium Chloride Flush 3 Ml Syringe) 3 ml IVFLUSH QSHIFT [facility] Last Admin: 10/03/22 07:59 Dose: 3 ml Home Medications Medication Instructions Recorded Confirmed Last Taken Type aspirin 81 mg tablet,delayed 81 mg PO DAILY@1700 10/03/20 10/01/22 10/01/22 History release (Adult Aspirin Regimen) clopidogrel 75 mg tablet 75 mg PO DAILY@0730 10/03/20 10/01/22 10/01/22 History 0730 digoxin 125 mcg (0.125 mg) tablet 125 mcg PO MOWEFR@72910/03/20 10/01/22 10/01/22 History 0730 ferrous gluconate 324 mg (38 mg 324 mg PO DAILY@1200,1700 10/03/20 10/01/22 10/01/22 12:00 History iron) tablet isosorbide mononitrate 30 mg 30 mg PO DAILY@72910/03/20 10/01/22 10/01/22 07: 30 History tablet,extended release 24 hr lisinopril 10 mg tablet 10 mg PO DAILY@72910/03/20 10/01/22 10/01/22 07:30 History pantoprazole 40 mg tablet,delayed 40 mg PO DAILY@72910/03/20 10/01/22 10/01/22 07:30 History release spironolactone 25 mg tablet 25 mg PO DAILY@72910/03/20 10/01/22 10/01/22 07:30 History torsemide 20 mg tablet 60 mg PO BID 10/03/20 10/01/22 10/01/22 07:30 History bempedoic acid 180 mg tablet 180 mg PO DAILY@72910/01/22 10/01/22 10/01/22 07:30 History (Nexletol) doxepin 10 mg capsule 10 mg PO BEDTIME 10/01/22 10/01/22 09/30/22 History ezetimibe 10 mg tablet 10 mg PO DAILY@72910/01/22 10/01/22 10/01/22 History 0730 fluoxetine 20 mg capsule 20 mg PO DAILY@72910/01/22 10/01/22 10/01/22 History 0730 fluticasone 250 mcg-salmeterol 50 1 puff inhalation BID 10/01/22 10/01/22 10/01/22 History mcg/dose blistr powdr for 729 inhalation (Advair Diskus) fluticasone propionate 50 1 - 2 spray intranasal DAILY PRN 10/01/22 10/01/22 Unknown History mcg/actuation nasal Congestion spray,suspension gabapentin 100 mg capsule 200 mg PO TID 10/01/22 10/01/22 10/01/22 12:00 History insulin lispro 100 unit/mL See Rx Instructions .Route .COMPLEX 10/01/22 10/01/22 10/01/22 History subcutaneous solution (Humalog U-100 Insulin) lamotrigine 100 mg tablet 100 mg PO BEDTIME 10/01/22 10/01/22 09/30/22 History lisinopril 5 mg tablet 5 mg PO DAILY@1200 10/01/22 10/01/22 10/01/22 12:00 History melatonin 5 mg tablet 5 mg PO BEDTIME 10/01/22 10/01/22 09/30/22 History Physical Exam Vital Signs: Vital Signs: Last Vital Signs Temp 97.6 F 10/03/22 07:21 Pulse 63 10/03/22 08:06 Resp 18 10/03/22 08:06 BP 121/57 L 10/03/22 07:21 Pulse Ox 96 10/03/22 07:21 O2 Del Method 10/03/22 07:21 BMI result Body Mass Index 30.8 Const: General: comfortable and no acute distress Orientation/consciousness: patient oriented x3 Neck: Neck: Yes no lymphadenopathy Resp: Auscultation: clear to auscultation bilaterally Cardio: Rhythm: regular rhythm GI: Palpation (GI): Soft to palpation, nontender and no guarding Neuro: General: patient oriented x3 Extrem: Other: left foot dorsal lateral aspect with note of an open wound about 3 cm in diameter, extending down to the deep subcutaneous tissue, some necrotic debris coating the base; adjacent to this on the plantar aspect is note of a very thick callus about 2.5 cm in diameter Results Labs Result diagrams: 10/03/22 07:55 10/03/22 07:55 Labs: Abnormal lab results 10/02/22 10/02/22 10/02/22 Range/Units 10:48 15:15 19:14 RBC (4.20-5.50) X10*6/uL Hgb (12.0-16.0) g/dl Hct (37.0-47.0) % MCHC (31.0-35.0) g/dl POC Glucose 261 H 227 H 194 H (60-115) mg/dL 10/03/22 Range/Units 07:55 RBC 2.90 L (4.20-5.50) X10*6/uL Hgb 8.4 L (12.0-16.0) g/dl Hct 27.4 L (37.0-47.0) % MCHC 30.7 L (31.0-35.0) g/dl POC Glucose (60-115) mg/dL Short CBC 10/03/22 Range/Units 07:55 WBC 6.1 (4.8-10.8) X10*3/uL Hgb 8.4 L (12.0-16.0) g/dl Hct 27.4 L (37.0-47.0) % Plt Count 298 (160-400) X10*3/uL BMP 10/03/22 07:55 Sodium 143 Potassium 4.6 Chloride 107 Carbon Dioxide 29 BUN 12 Creatinine 0.84 Calcium 8.7 All other labs normal. Imaging Additional studies: Laboratory Results WBC 6.1 X10*3/uL (4.8-10.8) 10/03/22 07:55 RBC 2.90 X10*6/uL (4.20-5.50) L 10/03/22 07:55 Hgb 8.4 g/dl (12.0-16.0) L 10/03/22 07:55 Hct 27.4 % (37.0-47.0) L 10/03/22 07:55 MCV 94.5 fL (80.0-98.0) 10/03/22 07:55 MCH 29.0 pg (27.0-33.0) 10/03/22 07:55 MCHC 30.7 g/dl (31.0-35.0) L 10/03/22 07:55 RDW 13.1 % (11.0-16.0) 10/03/22 07:55 Plt Count 298 X10*3/uL (160-400) 10/03/22 07:55 MPV 9.5 fL (9.4-12.3) 10/03/22 07:55 Immature Gran % (Auto) 0.4 % (0.0-0.4) 10/02/22 05:38 Neut % (Auto) 71.0 % (45-73) 10/02/22 05:38 Lymph % (Auto) 15.5 % (20-40) L 10/02/22 05:38 [place] % (Auto) 9.5 % (2-11) 10/02/22 05:38 Eos % (Auto) 3.4 % (0-4) 10/02/22 05:38 Baso % (Auto) 0.2 % (0-2) 10/02/22 05:38 Lymph # (Auto) 1.4 X10*3/uL (1.2-4.9) 10/02/22 05:38 [place] # (Auto) 0.9 X10*3/uL (0.1-1.2) 10/02/22 05:38 Eos # (Auto) 0.3 X10*3/uL (0.0-0.4) 10/02/22 05:38 Baso # (Auto) 0.0 X10*3/uL (0.0-0.2) 10/02/22 05:38 Abs Immat Gran (auto) 0.04 X10*3/uL (0.00-0.03) H 10/02/22 05:38 Absolute Neuts (auto) 6.5 x10*3/uL (2.0-8.3) 10/02/22 05:38 Absolute Nucleated RBC 0.000 X10*3/uL (0.0-0.012) 10/03/22 07:55 Nucleated RBC % (auto) 0.0 /100WBC (0.0-0.2) 10/03/22 07:55 ESR 111 MM/HR (0-20) H 10/01/22 15:48 Sodium 143 mmol/L (135-145) 10/03/22 07:55 Potassium 4.6 mmol/L (3.3-5.1) 10/03/22 07:55 Chloride 107 mmol/L (96-108) 10/03/22 07:55 Carbon Dioxide 29 mmol/L (22-29) 10/03/22 07:55 Anion Gap 12 (12-20) 10/03/22 07:55 BUN 12 mg/dL (9-16) 10/03/22 07:55 Creatinine 0.84 mg/dL (0.5-1.4) 10/03/22 07:55 Estim Creat Clear Calc 92.9 10/03/22 07:55 Estimated GFR > 60 10/03/22 07:55 POC Glucose 86 mg/dL (60-115) 10/03/22 07:19 Random Glucose 228 mg/dL (60-115) H 10/02/22 05:38 Fasting Glucose 91 mg/dL (60-99) 10/03/22 07:55 Lactic Acid 0.9 mmol/L (0.5-2.0) 10/01/22 15:47 Calcium 8.7 mg/dL (8.4-10.2) 10/03/22 07:55 Total Bilirubin 0.6 mg/dL (0.0-1.0) 10/01/22 15:48 AST 61 U/L (5-31) H 10/01/22 15:48 ALT 85 U/L (0-31) H 10/01/22 15:48 Alkaline Phosphatase 131 U/L (39-117) H D 10/01/22 15:48 C-Reactive Protein 30.50 mg/dL (< or = 0.50) H 10/01/22 15:48 Total Protein 6.8 g/dL (6.5-8.0) 10/01/22 15:48 Albumin 3.4 g/dL (3.5-5.0) L D 10/01/22 15:48 Vancomycin Trough 10.3 mcg/mL (10.0-20.0) 10/03/22 07:55 COVID-19 (ERICH) Negative (Negative) 10/01/22 18:49 COVID-19 Clin Com See Note 10/01/22 18:49 Impressions Foot X-Ray 10/01/22 16:06 IMPRESSION: The soft tissue wound at the level of the fifth metatarsal base with worsening osteolysis and articular surface fragmentation involving the metatarsal base and adjacent cuboid. Findings suggest presence of septic arthritis and osteomyelitis. Chronic subarticular cystic lucency is observed in the adjacent fourth metatarsal base. Foot MRI 10/01/22 20:15 IMPRESSION: 1. Soft tissue ulceration and cellulitis along the lateral aspect of the midfoot with a complex subcutaneous fluid collection measuring up to 3.2 cm, concerning for an abscess formation. Adjacent marrow edema within the base of the 4th and 5th metatarsals as well as within the cuboid as well as the navicula and cuneiforms as well as the base of the 2nd and 3rd metatarsals. Findings are new/increased when compared to the prior examination and are consistent with acute osteomyelitis. 2. Edema within the intrinsic musculature of the foot which can be seen in diabetic patients. Assessment and Plan (1) Wound of left foot: Status: Acute She has an open wound on the dorsal lateral aspect of the left foot. These measures about 3 cm in diameter and has necrotic debris on the base. There is an area with very thick callus adjacent to this on the plantar aspect. Her MRI suggest osteomyelitis of the proximal 4th and 5th metatarsals along with the adjacent tarsals. I did sharp excisional debridement of the entire wound using fine scissors all the way to viable looking deep tissue. I also debrided the thick callus adjacent to this. I applied wet to dry dressings on the open wound and wrapped the foot with Kerlix roll. We will continue to do wound care. She will need prolonged IV antibiotic treatment. Proximal amputation may be necessary down the line if she does not improve. Good blood sugar control is ideal. I will follow along while she is in the hospital. Procedures Date of Service Date of Service: 10/03/22
--- NOTE | 2022-10-03 10:11 | HO.PM.IMPN ---
Subjective Subjective Date of Service: 10/03/22 Interval History: cc: left foot dfu interval history:improving Cardiovascular Cardiovascular: Reports no additional cardiovascular complaints Gastrointestinal Gastrointestinal: Reports no additional gastrointestinal complaints Physical Exam Vital Signs: Vital Signs: Last Vital Signs Temp 97.6 F 10/03/22 07:21 Pulse 63 10/03/22 08:06 Resp 18 10/03/22 08:06 BP 121/57 L 10/03/22 07:21 Pulse Ox 96 10/03/22 07:21 O2 Del Method 10/03/22 07:21 BMI result Body Mass Index 30.8 Const: General: comfortable and no acute distress Orientation/consciousness: patient oriented x3 Neck: Neck: Yes no lymphadenopathy Resp: Auscultation: clear to auscultation bilaterally Cardio: Rhythm: regular rhythm GI: Palpation (GI): Soft to palpation, nontender and no guarding Neuro: General: patient oriented x3 Extrem: Other: left foot dorsal lateral aspect with note of an open wound about 3 cm in diameter, extending down to the deep subcutaneous tissue, some necrotic debris coating the base; adjacent to this on the plantar aspect is note of a very thick callus about 2.5 cm in diameter Objective Data Active Medications Acetaminophen (Acetaminophen 325 Mg Tablet) 650 mg PO Q6H PRN PRN Reason: Pain, Mild (Pain Scale 1-3) Aspirin (Aspirin Enteric Coated 81 Mg Tablet.) 81 mg PO DAILY@1700 [facility] Last Admin: 10/02/22 16:39 Dose: 81 mg Documented By: MAHI Atorvastatin Calcium (Atorvastatin Calcium 80 Mg Tablet) 80 mg PO BEDTIME [facility] [place] Last Admin: 10/02/22 20:22 Dose: 80 mg Documented By: SANDOVAL Dextrose (Dextrose 50 % 25 Gm/50 Ml Syringe) 25 gm IVPUSH Q15M PRN; Protocol PRN Reason: per Hypoglycemia Standing Ord. Digoxin (Digoxin 0.125 Mg Tablet) 0.125 mg PO MOWEFR@0730 [facility] Doxepin HCl (Doxepin Hcl 10 Mg Capsule) 10 mg PO BEDTIME [facility] [place] Last Admin: 10/02/22 20:22 Dose: 10 mg Documented By: SANDOVAL Ezetimibe (Ezetimibe 10 Mg Tablet) 10 mg PO DAILY@0730 [facility] [place] Last Admin: 10/03/22 06:38 Dose: 10 mg Documented By: SANDOVAL Enoxaparin Sodium (Enoxaparin Sodium 40 Mg/0.4 Ml Syringe) 40 mg SUBCUT Q24H [facility] Last Admin: 10/02/22 19:45 Dose: 40 mg Documented By: SANDOVAL Ferrous Sulfate (Ferrous Sulfate 324 Mg Tablet.Dr) 324 mg PO DAILY@1200,1700 [facility] [place] Last Admin: 10/02/22 16:39 Dose: 324 mg Documented By: MAHI Fluoxetine HCl (Fluoxetine Hcl 20 Mg Capsule) 20 mg PO DAILY@0730 [facility] [place] Last Admin: 10/03/22 06:38 Dose: 20 mg Documented By: SANDOVAL Fluticasone Propionate (Fluticasone Propionate Nasal 16 Gm [place]) 1 spray NOSTRIL-B DAILY PRN PRN Reason: Congestion Fluticasone/Vilanterol (Fluticasone/Vilanterol 100/25 Blst.W.Dev) 1 puff INHALE DAILY [facility] [place] Last Admin: 10/03/22 08:05 Dose: 1 puff Documented By: BRIDGER Gabapentin (Gabapentin 100 Mg Capsule) 200 mg PO TID [facility] [place] Last Admin: 10/03/22 07:58 Dose: 200 mg Documented By: MAHI Glucose (Glucose Gel 15 Gm Gel..Gram.) 15 gm PO Q15M PRN; Protocol PRN Reason: per Hypoglycemia Standing Ord. Piperacillin Sod/Tazobactam (Sod 4.5 gm/ Sodium Chloride) 100 mls @ 200 mls/hr IV Q6H [facility] [place] Last Infusion: 10/03/22 07:09 Dose: 0 mls/hr Documented By: SANDOVAL Vancomycin HCl 1,000 mg/ (Sodium Chloride) 270 mls @ 270 mls/hr IV Q12H [facility] [place] Insulin Glargine (Insulin Glargine,Hum.Rec.Anlog 100 Unit/Ml 10 Ml Vial) 30 unit SUBCUT BEDTIME [facility] Last Admin: 10/02/22 20:24 Dose: Not Given Documented By: SANDOVAL Non-Admin Reason: pt own pump Insulin Human Lispro (Insulin Lispro 100 Unit/Ml 3 Ml Vial) 0 unit SUBCUT QIDACHS [facility]; Protocol Last Admin: 10/03/22 07:56 Dose: Not Given Documented By: MAHI Non-Admin Reason: No Insulin Coverage Lamotrigine (Lamotrigine 100 Mg Tablet) 100 mg PO BEDTIME [facility] [place] Last Admin: 10/02/22 20:22 Dose: 100 mg Documented By: SANDOVAL Melatonin (Melatonin 3 Mg Tablet) 6 mg PO BEDTIME PRN PRN Reason: Insomnia Melatonin (Melatonin 3 Mg Tablet) 6 mg PO BEDTIME [facility] Last Admin: 10/02/22 20:22 Dose: 6 mg Documented By: SANDOVAL Non-Formulary Medication (Bempedoic Acid [Nexletol]) 180 mg PO DAILY@729 [facility] [place] Omeprazole (Omeprazole 20 Mg Capsule.Dr) 20 mg PO DAILY@729 [facility] [place] Last Admin: 10/03/22 06:38 Dose: 20 mg Documented By: SANDOVAL Ondansetron HCl (Ondansetron Hcl 4 Mg/2 Ml Vial) 4 mg IVPUSH Q8H PRN PRN Reason: Nausea and Vomiting Pharmacy Consult (Consult Rx Perform Med Rec) 1 each MISCELLANE ONCE PRN PRN Reason: Consult order Pharmacy Consult (Consult Rx Vancomycin Dosing) 1 each MISCELLANE DAILY PRN PRN Reason: Consult order Sodium Chloride (0.9 % Sodium Chloride Flush 3 Ml Syringe) 3 ml IVFLUSH QSHIFT [facility] Last Admin: 10/03/22 07:59 Dose: 3 ml Documented By: MAHI Labs CBC & Chem 7: 10/03/22 07:55 10/03/22 07:55 Labs: Laboratory Results - last 24 hr 10/02/22 10/02/22 10/02/22 10:48 15:15 19:14 MCV MCH MCHC RDW Plt Count MPV Absolute Nucleated RBC Nucleated RBC % (auto) Anion Gap Estim Creat Clear Calc Estimated GFR POC Glucose 261 H 227 H 194 H Fasting Glucose Calcium Vancomycin Trough 10/03/22 10/03/22 10/03/22 07:19 07:55 07:55 MCV 94.5 MCH 29.0 MCHC 30.7 L RDW 13.1 Plt Count 298 MPV 9.5 Absolute Nucleated RBC 0.000 Nucleated RBC % (auto) 0.0 Anion Gap 12 Estim Creat Clear Calc 92.9 Estimated GFR > 60 POC Glucose 86 Fasting Glucose 91 Calcium 8.7 Vancomycin Trough 10/03/22 07:55 MCV MCH MCHC RDW Plt Count MPV Absolute Nucleated RBC Nucleated RBC % (auto) Anion Gap Estim Creat Clear Calc Estimated GFR POC Glucose Fasting Glucose Calcium Vancomycin Trough 10.3 Microbiology Microbiology Results: Microbiology 10/01/22 15:47 Blood Culture - Preliminary Blood - Venous Prelim: GPC Gram Stain only 10/01/22 18:05 Blood Culture - Preliminary Blood - Venous No growth after 24 hours. 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 Sepsis (not severe) due to left foot abscess due to DM with likely acute OM vanc, zosyn, ID appreciated, likely 6 weeks iv abx surgery appreciated - no surgical intervention at this time blood culture - 1/2 GPC in chains follow up cultures, echo normocytic anemia likely inflammatory due to above monitor DM insulin CAD s/p cabg continue asa, lipitor Essential hypertension relatively hypotensive, meds on hold Mood disorder lamictal Peripheral neuropathy continue gabapentin moderate persistent Asthma -continue breo not in exacerbation DVT prohylaxis: Lovenox 40mg daily Full code reason for continued hospitalization:iv abx for OM Quality Stroke Does the patient have a stroke diagnosis?: No VTE Prior VTE?: No VTE Risk Level:: Medical - moderate - high VTE Device Contraindication: Treatment Not Indicated VTE Drug Contraindication: N/A - Med Ordered
[2022-10-03] MEDS: vancomycin HCL 1,000 MG in 0.9 % Sodium Chloride 250 ML 270 MG IV ×2 (10:16→21:24)
[2022-10-03 11:22] LABS: Glucose, Whole Blood 83 mg/dL (60-115)
[2022-10-03] MEDS: Ferrous Sulfate 324 MG TABLET.DR PO ×2 (13:05→17:20)
--- NOTE | 2022-10-03 14:36 | MHC.CM.PN ---
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
[2022-10-03] MEDS: Aspirin Enteric Coated 81 MG TABLET.DR PO (15:21)
[2022-10-03 15:44] LABS: Glucose, Whole Blood 80 mg/dL (60-115)
[2022-10-03] MEDS: Furosemide 40 MG TABLET PO (17:20)
[2022-10-03 19:54] LABS: Glucose, Whole Blood 127 mg/dL (60-115)
[2022-10-03] MEDS: Melatonin 3 MG TABLET 6 MG PO (20:13)
[2022-10-03] MEDS: Doxepin HCl 10 MG CAPSULE PO (20:13)
[2022-10-03] MEDS: Atorvastatin Calcium 80 MG TABLET PO (20:14)
[2022-10-03] MEDS: Enoxaparin Sodium 40 MG/0.4 ML SYRINGE SUBCUT (20:14)
[2022-10-03] MEDS: lamoTRIgine 100 MG TABLET PO (20:14)
[2022-10-04] VITALS (8 sets, daily range): BP systolic 111–154; BP diastolic 55–92; PULSE 66–75; RESP 16–18; TEMP 36.2–37; O2SAT 92–98
[2022-10-04] MEDS: Piperacillin Sodium/Tazobactam 4.5 GM in 0.9 % Sodium Chloride 100 ML IV ×4 (00:59→20:38)
[2022-10-04] MEDS: FLUoxetine HCl 20 MG CAPSULE PO (06:45)
[2022-10-04] MEDS: Ezetimibe 10 MG TABLET PO (06:45)
[2022-10-04] MEDS: Omeprazole 20 MG CAPSULE.DR PO (06:45)
[2022-10-04 07:28] LABS: Glucose, Whole Blood 197 mg/dL (60-115)
[2022-10-04] MEDS: Furosemide 40 MG TABLET PO ×2 (07:40→17:32)
[2022-10-04] MEDS: Digoxin 0.125 MG TABLET PO (07:40)
[2022-10-04] MEDS: Gabapentin 100 MG CAPSULE 200 MG PO ×3 (07:41→20:42)
[2022-10-04] MEDS: 0.9 % Sodium Chloride Flush 3 ML SYRINGE IVFLUSH ×3 (07:44→23:34)
[2022-10-04] MEDS: Fluticasone/Vilanterol 100/25 BLST.W.DEV 1 PUFF INHALE (07:56)
--- NOTE | 2022-10-04 08:16 | P.PNGS_ITS ---
Subjective Subjective Date of Service: 10/04/22 Interval history: no new complaints says she has less pain no fever Physical Exam Vital Signs: Vital Signs: Last Vital Signs Temp 97.3 F 10/04/22 07:03 Pulse 67 10/04/22 07:57 Resp 18 10/04/22 07:57 BP 154/83 H 10/04/22 07:03 Pulse Ox 92 10/04/22 07:03 O2 Del Method 10/04/22 07:03 BMI result Body Mass Index 30.8 Const: General: comfortable and no acute distress Resp: Effort & Inspection: normal respiratory effort Cardio: Rate: regular rate GI: Palpation (GI): Soft to palpation, not firm and nontender Extrem: Other: left foot open wound - much better, much less nonviable tissue coating wound, cellulitic changes much improved Objective Data Active Medications Acetaminophen (Acetaminophen 325 Mg Tablet) 650 mg PO Q6H PRN PRN Reason: Pain, Mild (Pain Scale 1-3) Aspirin (Aspirin Enteric Coated 81 Mg Tablet.) 81 mg PO DAILY@1700 [facility] Last Admin: 10/03/22 15:21 Dose: 81 mg Documented By: MAHI Atorvastatin Calcium (Atorvastatin Calcium 80 Mg Tablet) 80 mg PO BEDTIME [facility] Last Admin: 10/03/22 20:14 Dose: 80 mg Documented By: SANDOVAL Dextrose (Dextrose 50 % 25 Gm/50 Ml Syringe) 25 gm IVPUSH Q15M PRN; Protocol PRN Reason: per Hypoglycemia Standing Ord. Digoxin (Digoxin 0.125 Mg Tablet) 0.125 mg PO MOWEFR@0730 [facility] Last Admin: 10/04/22 07:40 Dose: 0.125 mg Documented By: MIRNA Doxepin HCl (Doxepin Hcl 10 Mg Capsule) 10 mg PO BEDTIME [facility] Last Admin: 10/03/22 20:13 Dose: 10 mg Documented By: SANDOVAL Ezetimibe (Ezetimibe 10 Mg Tablet) 10 mg PO DAILY@0730 [facility] Last Admin: 10/04/22 06:45 Dose: 10 mg Documented By: SANDOVAL Enoxaparin Sodium (Enoxaparin Sodium 40 Mg/0.4 Ml Syringe) 40 mg SUBCUT Q24H [facility] Last Admin: 10/03/22 20:14 Dose: 40 mg Documented By: SANDOVAL Ferrous Sulfate (Ferrous Sulfate 324 Mg Tablet.Dr) 324 mg PO DAILY@1200,1700 [facility] Last Admin: 10/03/22 17:20 Dose: 324 mg Documented By: MAHI Fluoxetine HCl (Fluoxetine Hcl 20 Mg Capsule) 20 mg PO DAILY@0730 [facility] Last Admin: 10/04/22 06:45 Dose: 20 mg Documented By: SANDOVAL Fluticasone Propionate (Fluticasone Propionate Nasal 16 Gm [place]) 1 spray NOSTRIL-B DAILY PRN PRN Reason: Congestion Fluticasone/Vilanterol (Fluticasone/Vilanterol 100/25 Blst.W.Dev) 1 puff INHALE DAILY [facility] Last Admin: 10/04/22 07:56 Dose: 1 puff Documented By: JADE Furosemide (Furosemide 40 Mg Tablet) 40 mg PO BID@0900,1800 [facility]; Protocol Last Admin: 10/04/22 07:40 Dose: 40 mg Documented By: MIRNA Gabapentin (Gabapentin 100 Mg Capsule) 200 mg PO TID [facility] Last Admin: 10/04/22 07:41 Dose: 200 mg Documented By: MIRNA Glucose (Glucose Gel 15 Gm Gel..Gram.) 15 gm PO Q15M PRN; Protocol PRN Reason: per Hypoglycemia Standing Ord. Piperacillin Sod/Tazobactam (Sod 4.5 gm/ Sodium Chloride) 100 mls @ 200 mls/hr IV Q6H [facility] Last Infusion: 10/04/22 06:48 Dose: 0 mls/hr Documented By: SANDOVAL Vancomycin HCl 1,000 mg/ (Sodium Chloride) 270 mls @ 270 mls/hr IV Q12H [facility] Last Infusion: 10/03/22 22:28 Dose: 0 mls/hr Documented By: SANDOVAL Insulin Glargine (Insulin Glargine,Hum.Rec.Anlog 100 Unit/Ml 10 Ml Vial) 30 unit SUBCUT BEDTIME [facility] Last Admin: 10/03/22 20:18 Dose: Not Given Documented By: SANDOVAL Non-Admin Reason: pt own pump Insulin Human Lispro (Insulin Lispro 100 Unit/Ml 3 Ml Vial) 0 unit SUBCUT QIDACHS [facility]; Protocol Last Admin: 10/04/22 07:43 Dose: Not Given Documented By: MIRNA Non-Admin Reason: pump Lamotrigine (Lamotrigine 100 Mg Tablet) 100 mg PO BEDTIME [facility] Last Admin: 10/03/22 20:14 Dose: 100 mg Documented By: SANDOVAL Melatonin (Melatonin 3 Mg Tablet) 6 mg PO BEDTIME PRN PRN Reason: Insomnia Melatonin (Melatonin 3 Mg Tablet) 6 mg PO BEDTIME [facility] Last Admin: 10/03/22 20:13 Dose: 6 mg Documented By: SANDOVAL Non-Formulary Medication (Bempedoic Acid [Nexletol]) 180 mg PO DAILY@0730 [facility] Omeprazole (Omeprazole 20 Mg Capsule.Dr) 20 mg PO DAILY@07 [facility] Last Admin: 10/04/22 06:45 Dose: 20 mg Documented By: SANDOVAL Ondansetron HCl (Ondansetron Hcl 4 Mg/2 Ml Vial) 4 mg IVPUSH Q8H PRN PRN Reason: Nausea and Vomiting Pharmacy Consult (Consult Rx Perform Med Rec) 1 each MISCELLANE ONCE PRN PRN Reason: Consult order Pharmacy Consult (Consult Rx Vancomycin Dosing) 1 each MISCELLANE DAILY PRN PRN Reason: Consult order Sodium Chloride (0.9 % Sodium Chloride Flush 3 Ml Syringe) 3 ml IVFLUSH QSHIFT [facility] Last Admin: 10/04/22 07:44 Dose: 3 ml Documented By: MIRNA Labs CBC & Chem 7: 10/03/22 07:55 10/03/22 07:55 Labs: Laboratory Results - last 24 hr 10/03/22 10/03/22 10/03/22 07:55 07:55 11:14 Anion Gap 12 Estim Creat Clear Calc 92.9 Estimated GFR > 60 POC Glucose 83 Fasting Glucose 91 Calcium 8.7 Vancomycin Trough 10.3 10/03/22 10/03/22 10/04/22 15:02 19:33 07:06 Anion Gap Estim Creat Clear Calc Estimated GFR POC Glucose 80 127 H 197 H Fasting Glucose Calcium Vancomycin Trough Microbiology Microbiology Results: Microbiology 10/01/22 15:47 Blood Culture - Preliminary Blood - Venous Prelim: GPC Gram Stain only 10/01/22 18:05 Blood Culture - Preliminary Blood - Venous No growth after 48 hours. Procedures Date of Service Date of Service: 10/04/22 Progress Note: A&P Assessment and plan (1) Wound of left foot: Status: Acute Assessment and Plan: sharp excisional debridement done yesterday dressings changed much improved wet to dry applied - will start alginate dressings tomorrow Time Spent With Patient Time: Total time spent is greater than 50% in coordination of care (as documented) at patient's floor/unit and/or counseling patient: Quality Stroke Does the patient have a stroke diagnosis?: No VTE Prior VTE?: No VTE Risk Level:: Medical - moderate - high VTE Device Contraindication: Treatment Not Indicated VTE Drug Contraindication: N/A - Med Ordered
[2022-10-04 08:41] LABS: Hematocrit 29.4 % (37.0-47.0); Hemoglobin 9.2 g/dl (12.0-16.0); Mean Corpuscular HGB Conc 31.3 g/dl (31.0-35.0); Mean Corpuscular Hemoglobin 29.4 pg (27.0-33.0); Mean Corpuscular Volume 93.9 fL (80.0-98.0); Platelet Count 384 X10*3/uL (160-400); Red Blood Count 3.13 X10*6/uL (4.20-5.50); Red Cell Distribution Width 13.2 % (11.0-16.0)
[2022-10-04 09:09] LABS: Vancomycin Random 10.9 mcg/mL (15-20)
--- NOTE | 2022-10-04 09:17 | P.PNIM_ITS ---
Subjective Subjective Date of Service: 10/04/22 Interval History: cc: left foot dfu interval history:improving Cardiovascular Cardiovascular: Reports no additional cardiovascular complaints Gastrointestinal Gastrointestinal: Reports no additional gastrointestinal complaints Physical Exam Vital Signs: Vital Signs: Last Vital Signs Temp 97.3 F 10/04/22 07:03 Pulse 67 10/04/22 07:57 Resp 18 10/04/22 07:57 BP 154/83 H 10/04/22 07:03 Pulse Ox 92 10/04/22 07:03 O2 Del Method 10/04/22 07:03 BMI result Body Mass Index 30.8 Const: General: comfortable and no acute distress Resp: Effort & Inspection: normal respiratory effort Cardio: Rate: regular rate GI: Palpation (GI): Soft to palpation, not firm and nontender Extrem: Other: left foot open wound - much better, much less nonviable tissue coating wound, cellulitic changes much improved Objective Data Active Medications Acetaminophen (Acetaminophen 325 Mg Tablet) 650 mg PO Q6H PRN PRN Reason: Pain, Mild (Pain Scale 1-3) Aspirin (Aspirin Enteric Coated 81 Mg Tablet.) 81 mg PO DAILY@1700 [facility] Last Admin: 10/03/22 15:21 Dose: 81 mg Documented By: MAHI Atorvastatin Calcium (Atorvastatin Calcium 80 Mg Tablet) 80 mg PO BEDTIME [facility] Last Admin: 10/03/22 20:14 Dose: 80 mg Documented By: SANDOVAL Dextrose (Dextrose 50 % 25 Gm/50 Ml Syringe) 25 gm IVPUSH Q15M PRN; Protocol PRN Reason: per Hypoglycemia Standing Ord. Digoxin (Digoxin 0.125 Mg Tablet) 0.125 mg PO MOWEFR@0730 [facility] Last Admin: 10/04/22 07:40 Dose: 0.125 mg Documented By: MIRNA Doxepin HCl (Doxepin Hcl 10 Mg Capsule) 10 mg PO BEDTIME [facility] Last Admin: 10/03/22 20:13 Dose: 10 mg Documented By: SANDOVAL Ezetimibe (Ezetimibe 10 Mg Tablet) 10 mg PO DAILY@0730 [facility] Last Admin: 10/04/22 06:45 Dose: 10 mg Documented By: SANDOVAL Enoxaparin Sodium (Enoxaparin Sodium 40 Mg/0.4 Ml Syringe) 40 mg SUBCUT Q24H S Last Admin: 10/03/22 20:14 Dose: 40 mg Documented By: SANDOVAL Ferrous Sulfate (Ferrous Sulfate 324 Mg Tablet.Dr) 324 mg PO DAILY@1200,1700 [facility] Last Admin: 10/03/22 17:20 Dose: 324 mg Documented By: MAHI Fluoxetine HCl (Fluoxetine Hcl 20 Mg Capsule) 20 mg PO DAILY@0730 [facility] Last Admin: 10/04/22 06:45 Dose: 20 mg Documented By: SANDOVAL Fluticasone Propionate (Fluticasone Propionate Nasal 16 Gm [place]) 1 spray NOSTRIL-B DAILY PRN PRN Reason: Congestion Fluticasone/Vilanterol (Fluticasone/Vilanterol 100/25 Blst.W.Dev) 1 puff INHALE DAILY [facility] Last Admin: 10/04/22 07:56 Dose: 1 puff Documented By: JADE Furosemide (Furosemide 40 Mg Tablet) 40 mg PO BID@0900,1800 [facility]; Protocol Last Admin: 10/04/22 07:40 Dose: 40 mg Documented By: MIRNA Gabapentin (Gabapentin 100 Mg Capsule) 200 mg PO TID [facility] Last Admin: 10/04/22 07:41 Dose: 200 mg Documented By: MIRNA Glucose (Glucose Gel 15 Gm Gel..Gram.) 15 gm PO Q15M PRN; Protocol PRN Reason: per Hypoglycemia Standing Ord. Piperacillin Sod/Tazobactam (Sod 4.5 gm/ Sodium Chloride) 100 mls @ 200 mls/hr IV Q6H [facility] Last Infusion: 10/04/22 06:48 Dose: 0 mls/hr Documented By: SANDOVAL Vancomycin HCl 1,000 mg/ (Sodium Chloride) 270 mls @ 270 mls/hr IV Q12H [facility] Last Infusion: 10/03/22 22:28 Dose: 0 mls/hr Documented By: SANDOVAL Insulin Glargine (Insulin Glargine,Hum.Rec.Anlog 100 Unit/Ml 10 Ml Vial) 30 unit SUBCUT BEDTIME [facility] Last Admin: 10/03/22 20:18 Dose: Not Given Documented By: SANDOVAL Non-Admin Reason: pt own pump Insulin Human Lispro (Insulin Lispro 100 Unit/Ml 3 Ml Vial) 0 unit SUBCUT QIDACHS [facility]; Protocol Last Admin: 10/04/22 07:43 Dose: Not Given Documented By: MIRNA Non-Admin Reason: pump Lamotrigine (Lamotrigine 100 Mg Tablet) 100 mg PO BEDTIME [facility] Last Admin: 10/03/22 20:14 Dose: 100 mg Documented By: SANDOVAL Melatonin (Melatonin 3 Mg Tablet) 6 mg PO BEDTIME PRN PRN Reason: Insomnia Melatonin (Melatonin 3 Mg Tablet) 6 mg PO BEDTIME [facility] Last Admin: 10/03/22 20:13 Dose: 6 mg Documented By: SANDOVAL Non-Formulary Medication (Bempedoic Acid [Nexletol]) 180 mg PO DAILY@729 [facility] Omeprazole (Omeprazole 20 Mg Capsule.Dr) 20 mg PO DAILY@729 [facility] Last Admin: 10/04/22 06:45 Dose: 20 mg Documented By: SANDOVAL Ondansetron HCl (Ondansetron Hcl 4 Mg/2 Ml Vial) 4 mg IVPUSH Q8H PRN PRN Reason: Nausea and Vomiting Pharmacy Consult (Consult Rx Perform Med Rec) 1 each MISCELLANE ONCE PRN PRN Reason: Consult order Pharmacy Consult (Consult Rx Vancomycin Dosing) 1 each MISCELLANE DAILY PRN PRN Reason: Consult order Sodium Chloride (0.9 % Sodium Chloride Flush 3 Ml Syringe) 3 ml IVFLUSH QSHIFT [facility] Last Admin: 10/04/22 07:44 Dose: 3 ml Documented By: MIRNA Labs CBC & Chem 7: 10/04/22 08:19 10/03/22 07:55 Labs: Laboratory Results - last 24 hr 10/03/22 10/03/22 10/03/22 11:14 15:02 19:33 MCV MCH MCHC RDW Plt Count MPV Absolute Nucleated RBC Nucleated RBC % (auto) POC Glucose 83 80 127 H Random Vancomycin 10/04/22 10/04/22 10/04/22 07:06 08:19 08:19 MCV 93.9 MCH 29.4 MCHC 31.3 RDW 13.2 Plt Count 384 D MPV 10.0 Absolute Nucleated RBC 0.000 Nucleated RBC % (auto) 0.0 POC Glucose 197 H Random Vancomycin 10.9 L Microbiology Microbiology Results: Microbiology 10/01/22 15:47 Blood Culture - Preliminary Blood - Venous Prelim: GPC Gram Stain only 10/01/22 18:05 Blood Culture - Preliminary Blood - Venous No growth after 48 hours. 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 Sepsis (not severe) due to left foot abscess due to DM with likely acute OM vanc, zosyn, ID appreciated, likely 6 weeks iv abx surgery appreciated - no surgical intervention at this time blood culture - 1/2 GPC in chains follow up cultures, echo pending normocytic anemia likely inflammatory due to above monitor DM insulin CAD s/p cabg continue asa, lipitor Essential hypertension relatively hypotensive, meds on hold Mood disorder lamictal Peripheral neuropathy continue gabapentin moderate persistent Asthma -continue breo not in exacerbation DVT prohylaxis: Lovenox 40mg daily Full code reason for continued hospitalization:iv abx for OM Quality Stroke Does the patient have a stroke diagnosis?: No VTE Prior VTE?: No VTE Risk Level:: Medical - moderate - high VTE Device Contraindication: Treatment Not Indicated VTE Drug Contraindication: N/A - Med Ordered
[2022-10-04 09:33] LABS: Anion Gap 16 (12-20); Blood Urea Nitrogen 9 mg/dL (9-16); Calcium 8.8 mg/dL (8.4-10.2); Carbon Dioxide 25 mmol/L (22-29); Chloride 105 mmol/L (96-108); Estimated Glomerular Filt Rate > 60; Glucose Fasting 203 mg/dL (60-99); Potassium 4.5 mmol/L (3.3-5.1); Sodium 141 mmol/L (135-145)
--- NOTE | 2022-10-04 10:00 | HE.PHANOTE ---
Based on renal function and troug hdose increased to 1250 q 12. next trough 10/05 @ 0800
[2022-10-04] MEDS: vancomycin HCL 1,250 MG in 0.9 % Sodium Chloride 250 ML 166.67 MG IV ×2 (10:21→21:36)
[2022-10-04 11:20] LABS: Glucose, Whole Blood 224 mg/dL (60-115)
--- NOTE | 2022-10-04 12:08 | MHC.CM.PN ---
EMR REVIEWED, PER HOSPITALIST PT WILL NEED SENIOR CARE IV ABX FOR DIABETIC FOOT OSTEO, CM ATTMPTED TO MEET W/PT HOWEVER PT SSO, CM TO REVISIT W/CHUR[facility] HISTORY TEACHER.
[2022-10-04] MEDS: Ferrous Sulfate 324 MG TABLET.DR PO ×2 (13:47→17:32)
[2022-10-04] MEDS: Subcutaneous Insulin Pump 1 EACH SUBCUT ×3 (14:23→20:47)
[2022-10-04 16:39] LABS: Glucose, Whole Blood 217 mg/dL (60-115)
[2022-10-04] MEDS: Aspirin Enteric Coated 81 MG TABLET.DR PO (17:32)
[2022-10-04 19:57] LABS: Glucose, Whole Blood 141 mg/dL (60-115)
[2022-10-04] MEDS: Enoxaparin Sodium 40 MG/0.4 ML SYRINGE SUBCUT (20:40)
[2022-10-04] MEDS: Doxepin HCl 10 MG CAPSULE PO (20:42)
[2022-10-04] MEDS: Atorvastatin Calcium 80 MG TABLET PO (20:42)
[2022-10-04] MEDS: lamoTRIgine 100 MG TABLET PO (20:42)
[2022-10-04] MEDS: Melatonin 3 MG TABLET 6 MG PO (20:42)
[2022-10-05] MEDS: Piperacillin Sodium/Tazobactam 4.5 GM in 0.9 % Sodium Chloride 100 ML IV ×4 (01:26→18:07)
[2022-10-05 03:12] VITALS: BP 150/84; PULSE 65; RESP 17; TEMP 36.7; O2SAT 94
--- NOTE | 2022-10-05 07:00 | CA_ITS ---
Transthoracic Echocardiogram Patient (Last, First, Middle): Melissa Barnett, Gender: Female Date of : 1975 Age: 47 Procedure Date: 10/05/2022 Procedure Type: Transthoracic Echocardiogram Location: S3E Height: 170.18 cm Weight: 88.91 kg BSA: 2.00 m2 Heart Rate: 67 bpm BP: 154 / 83 mmHg Office Rental Clerk: NATALIIA Referring MD: Redd Machado MD Hairspring Adjuster: Cas Ivey MD Symptoms: bacteremia Study Quality: Technically Difficult ECG Rhythm: Sinus Conclusions: - Technically limited study despite use of contrast agent 1. Low normal LV systolic function with pseudonormal filling pattern 2. Moderately reduced right ventricular systolic function 3. Moderate mitral and calcification with mild mitral regurgitation 4. Normal RV systolic pressure Findings Procedure Information Contrast agent, definity, is being given per protocol without apparent complications. Left Ventricle Normal left ventricular cavity size. There is normal left ventricular wall thickness. The left ventricular systolic function is low normal. The visually estimated ejection fraction is between 50-55%. Spectral Doppler is indicative of a pseudonormal filling pattern. Right Ventricle Normal right ventricular cavity size. There is moderately decreased right ventricular systolic function. Atria The left atrium is normal in size. Interatrial shunt cannot be excluded. The right atrium was not well visualized. Aortic Valve The aortic valve was not well visualized. There is no aortic valve stenosis. There is no aortic valve regurgitation. Mitral Valve There is mild anterior and posterior mitral leaflet thickening. There is moderate mitral annular calcification. There is mild mitral valve regurgitation. There is no mitral valve stenosis. Pulmonic Valve The pulmonic valve was not well visualized. Tricuspid Valve The tricuspid valve was not well visualized. There is trace tricuspid valve regurgitation. The right ventricular systolic pressure is normal. The right ventricular systolic pressure is 28 mmHg. Normal right atrial pressure. There is no evidence of pulmonary hypertension. Great Vessels The aorta was not well visualized. The pulmonary artery was not well visualized. Venous The inferior vena cava is normal in size and collapses greater than 50% with inspiration. Pericardium/Pleural The pericardium was not well visualized. Prior Study Comparison Changes noted compared to prior study dated: 03/02/2021. LV systolic function is reduced. Vegetations cannot be entirely ruled out on this study Recommendations, Care & Conclusions Consider a SANDRA if clinically appropriate. Measurements 2D Linear Measurements IVSd: 1.05 0.6-0.9/0.6-1.0 cm LVIDd: 5.16 3.9-5.3/4.2-5.9 cm LVIDd Index: 2.58 2.4-3.2/2.2-3.1 cm/m2 LVIDs: 3.03 2.0-3.6 cm LVPWd: 1.14 0.7-1.1 cm LA Diam: 4.40 2.7-3.8/3.0-4.0 cm LAIDs Index: 2.20 1.5-2.3 cm/m2 LV Mass: 270.06 67-162/88-224 g LV Mass Index: 135.03 43-95/49-115 g/m2 LVOT Diam: 1.80 3.0+(-)1.3 cm 2D Systolic Function EF 4C: 63.50 >55% EF 2C: 44.20 >55% EF BiP: 52.50 >55% Mitral Valve MV Pk E: 1.32 MV PK A: 0.62 MV Decel Time: 190.00 E/A: 2.10 E'Lateral: 8.41 E'Medial: 7.71 E/E' Med: 17.10 E/E' Lat: 15.70 PHT: 56.00 MVA PHT: 3.93 Decel [place]: 6.98 Aortic Valve AoV Pk Tai: 1.38 AoV Mn Tai: 0.96 AoV VTI: 0.32 AoV Pk Grad: 8.00 Aov Mn Grad: 4.00 SASCHA Cont.VTI: 1.70 LVOT LVOT Pk Tai: 0.96 LVOT Mn Tai: 0.66 LVOT VTI: 0.22 LVOT Pk Grad: 4.00 LVOT Mn Grad: 2.00 LVOT Diam: 1.80 LVOT Area: 2.54 Diastolic Function MV Pk E: 1.32 MV Pk A: 0.62 E/A: 2.10 E'Medial: 7.71 E/E' Med: 17.10 E' Laterial: 8.41 E/E' Lat: 15.70 Right Ventricle TAPSE (mm): 12.90 TVS' Tai: 7.50 Tricuspid Valve TR Pk Tai: 2.50 TR Pk Grad: 25.00 RA Press: 3.00 RVSP: 28.00 Great Vessels Aorta Sinus of Valsalva: 3.10 2.0-3.5 cm Ao Asc: 3.10 2.1-3.4 cm Pulmonary Valve PV Pk Tai: 1.15 Peak PV Grad: 5.00 Updated in Other Vendor System with Status of Final Cas Ivey MD electronically signed on 10/05/2022 4:36:32 PM with status of Final
[2022-10-05 07:23] VITALS: BP 142/74; PULSE 68; RESP 18; TEMP 36.6; O2SAT 97
[2022-10-05] MEDS: Ezetimibe 10 MG TABLET PO (07:32)
[2022-10-05] MEDS: Furosemide 40 MG TABLET PO ×2 (07:32→17:00)
[2022-10-05] MEDS: FLUoxetine HCl 20 MG CAPSULE PO (07:32)
[2022-10-05] MEDS: Omeprazole 20 MG CAPSULE.DR PO (07:33)
[2022-10-05] MEDS: 0.9 % Sodium Chloride Flush 3 ML SYRINGE IVFLUSH ×3 (07:33→21:58)
[2022-10-05] MEDS: Gabapentin 100 MG CAPSULE 200 MG PO ×3 (07:33→20:07)
--- NOTE | 2022-10-05 07:44 | P.PNGS_ITS ---
Subjective Subjective Date of Service: 10/05/22 Interval history: no new complaints says foot feels better Physical Exam Vital Signs: Vital Signs: Last Vital Signs Temp 97.8 F 10/05/22 07:23 Pulse 68 10/05/22 07:23 Resp 18 10/05/22 07:23 BP 142/74 H 10/05/22 07:23 Pulse Ox 97 10/05/22 07:23 O2 Del Method 10/05/22 07:23 BMI result Body Mass Index 30.8 Const: General: comfortable and no acute distress Resp: Effort & Inspection: normal respiratory effort Cardio: Rate: regular rate Extrem: Other: left foot open wound - much sewer cleaner, good granulation, cellulitis much improved Objective Data Active Medications Acetaminophen (Acetaminophen 325 Mg Tablet) 650 mg PO Q6H PRN PRN Reason: Pain, Mild (Pain Scale 1-3) Aspirin (Aspirin Enteric Coated 81 Mg Tablet.) 81 mg PO DAILY@1700 [facility] Last Admin: 10/04/22 17:32 Dose: 81 mg Documented By: RAJEEV Atorvastatin Calcium (Atorvastatin Calcium 80 Mg Tablet) 80 mg PO BEDTIME [facility] Last Admin: 10/04/22 20:42 Dose: 80 mg Documented By: RAJEEV Dextrose (Dextrose 50 % 25 Gm/50 Ml Syringe) 25 gm IVPUSH Q15M PRN; Protocol PRN Reason: per Hypoglycemia Standing Ord. Digoxin (Digoxin 0.125 Mg Tablet) 0.125 mg PO MOWEFR@0730 [facility] Last Admin: 10/04/22 07:40 Dose: 0.125 mg Documented By: MIRNA Doxepin HCl (Doxepin Hcl 10 Mg Capsule) 10 mg PO BEDTIME [facility] Last Admin: 10/04/22 20:42 Dose: 10 mg Documented By: RAJEEV Ezetimibe (Ezetimibe 10 Mg Tablet) 10 mg PO DAILY@0730 [facility] Last Admin: 10/05/22 07:32 Dose: 10 mg Documented By: MIRNA Enoxaparin Sodium (Enoxaparin Sodium 40 Mg/0.4 Ml Syringe) 40 mg SUBCUT Q24H [facility] Last Admin: 10/04/22 20:40 Dose: 40 mg Documented By: RAJEEV Ferrous Sulfate (Ferrous Sulfate 324 Mg Tablet.) 324 mg PO DAILY@1200,1700 [facility] Last Admin: 10/04/22 17:32 Dose: 324 mg Documented By: RAJEEV Fluoxetine HCl (Fluoxetine Hcl 20 Mg Capsule) 20 mg PO DAILY@0730 [facility] Last Admin: 10/05/22 07:32 Dose: 20 mg Documented By: MIRNA Fluticasone Propionate (Fluticasone Propionate Nasal 16 Gm [place]) 1 spray NOSTRIL-B DAILY PRN PRN Reason: Congestion Fluticasone/Vilanterol (Fluticasone/Vilanterol 100/25 Blst.W.Dev) 1 puff INHALE DAILY [facility] Last Admin: 10/04/22 07:56 Dose: 1 puff Documented By: JADE Furosemide (Furosemide 40 Mg Tablet) 40 mg PO BID@0900,1800 [facility]; Protocol Last Admin: 10/05/22 07:32 Dose: 40 mg Documented By: MIRNA Gabapentin (Gabapentin 100 Mg Capsule) 200 mg PO TID [facility] Last Admin: 10/05/22 07:33 Dose: 200 mg Documented By: MIRNA Glucose (Glucose Gel 15 Gm Gel..Gram.) 15 gm PO Q15M PRN; Protocol PRN Reason: per Hypoglycemia Standing Ord. Piperacillin Sod/Tazobactam (Sod 4.5 gm/ Sodium Chloride) 100 mls @ 200 mls/hr IV Q6H [facility] Last Infusion: 10/05/22 07:36 Dose: 200 mls/hr Documented By: MIRNA Vancomycin HCl 1,250 mg/ (Sodium Chloride) 250 mls @ 166.667 mls/hr IV Q12H [facility] Last Infusion: 10/04/22 23:36 Dose: 0 mls/hr Documented By: VINCE Insulin Glargine (Insulin Glargine,Hum.Rec.Anlog 100 Unit/Ml 10 Ml Vial) 30 unit SUBCUT BEDTIME [facility] Last Admin: 10/04/22 20:45 Dose: Not Given Documented By: RAJEEV Non-Admin Reason: pt has own insulin pump Insulin Human Lispro (Insulin Lispro 100 Unit/Ml 3 Ml Vial) 0 unit SUBCUT QIDACHS [facility]; Protocol Last Admin: 10/05/22 07:34 Dose: Not Given Documented By: MIRNA Non-Admin Reason: pump Insulin Pump (Subcutaneous Insulin Pump) 1 each SUBCUT QIDACHS [facility]; Protocol Last Admin: 10/04/22 20:47 Dose: 1 each Documented By: RAJEEV Lamotrigine (Lamotrigine 100 Mg Tablet) 100 mg PO BEDTIME [facility] Last Admin: 10/04/22 20:42 Dose: 100 mg Documented By: RAJEEV Melatonin (Melatonin 3 Mg Tablet) 6 mg PO BEDTIME PRN PRN Reason: Insomnia Melatonin (Melatonin 3 Mg Tablet) 6 mg PO BEDTIME [facility] Last Admin: 10/04/22 20:42 Dose: 6 mg Documented By: RAJEEV Non-Formulary Medication (Bempedoic Acid [Nexletol]) 180 mg PO DAILY@729 [facility] Omeprazole (Omeprazole 20 Mg Capsule.Dr) 20 mg PO DAILY@729 [facility] Last Admin: 10/05/22 07:33 Dose: 20 mg Documented By: MIRNA Ondansetron HCl (Ondansetron Hcl 4 Mg/2 Ml Vial) 4 mg IVPUSH Q8H PRN PRN Reason: Nausea and Vomiting Pharmacy Consult (Consult Rx Perform Med Rec) 1 each MISCELLANE ONCE PRN PRN Reason: Consult order Pharmacy Consult (Consult Rx Vancomycin Dosing) 1 each MISCELLANE DAILY PRN PRN Reason: Consult order Sodium Chloride (0.9 % Sodium Chloride Flush 3 Ml Syringe) [facility] Last Admin: 10/05/22 07:33 Dose: 3 ml Documented By: MIRNA Labs CBC & Chem 7: 10/04/22 08:19 10/04/22 08:19 Labs: Laboratory Results - last 24 hr 10/04/22 10/04/22 10/04/22 08:19 08:19 08:19 MCV 93.9 MCH 29.4 MCHC 31.3 RDW 13.2 Plt Count 384 D MPV 10.0 Absolute Nucleated RBC 0.000 Nucleated RBC % (auto) 0.0 Anion Gap 16 Estim Creat Clear Calc 83.0 Estimated GFR > 60 POC Glucose Fasting Glucose 203 H Calcium 8.8 Random Vancomycin 10.9 L 10/04/22 10/04/22 10/04/22 11:16 16:00 19:52 MCV MCH MCHC RDW Plt Count MPV Absolute Nucleated RBC Nucleated RBC % (auto) Anion Gap Estim Creat Clear Calc Estimated GFR POC Glucose 224 H 217 H 141 H Fasting Glucose Calcium Random Vancomycin Microbiology Microbiology Results: Microbiology 10/01/22 15:47 Blood Culture - Preliminary Blood - Venous Prelim: GPC Gram Stain only Procedures Date of Service Date of Service: 10/05/22 Progress Note: A&P Assessment and plan (1) Wound of left foot: Status: Acute Assessment and Plan: good granulation noted silver alginate applied much improved maintain good blood sugar control continue wound care Time Spent With Patient Time: Total time spent is greater than 50% in coordination of care (as documented) at patient's floor/unit and/or counseling patient: Quality Stroke Does the patient have a stroke diagnosis?: No VTE Prior VTE?: No VTE Risk Level:: Medical - moderate - high VTE Device Contraindication: Treatment Not Indicated VTE Drug Contraindication: N/A - Med Ordered
[2022-10-05 07:45] LABS: Glucose, Whole Blood 112 mg/dL (60-115)
[2022-10-05] MEDS: Fluticasone/Vilanterol 100/25 BLST.W.DEV 1 PUFF INHALE (08:00)
[2022-10-05 08:01] VITALS: PULSE 71; RESP 18; O2SAT 96
[2022-10-05 08:26] LABS: Hematocrit 32.2 % (37.0-47.0); Hemoglobin 9.9 g/dl (12.0-16.0); Mean Corpuscular HGB Conc 30.7 g/dl (31.0-35.0); Mean Corpuscular Hemoglobin 29.2 pg (27.0-33.0); Mean Platelet Volume 9.8 fL (9.4-12.3); Platelet Count 398 X10*3/uL (160-400); Red Blood Count 3.39 X10*6/uL (4.20-5.50); Red Cell Distribution Width 12.9 % (11.0-16.0); White Blood Count 6.8 X10*3/uL (4.8-10.8)
[2022-10-05 08:40] LABS: Anion Gap 16 (12-20); Blood Urea Nitrogen 8 mg/dL (9-16); Carbon Dioxide 27 mmol/L (22-29); Chloride 102 mmol/L (96-108); Creatinine Clr Calc Pharmacy 83.9; Estimated Glomerular Filt Rate > 60; Glucose Fasting 115 mg/dL (60-99); Potassium 4.3 mmol/L (3.3-5.1); Sodium 141 mmol/L (135-145)
[2022-10-05 08:53] LABS: Vancomycin Trough 14.6 mcg/mL (10.0-20.0)
--- NOTE | 2022-10-05 09:30 | PC.NURSE ---
Assumed care of patient at this time.
[2022-10-05] MEDS: vancomycin HCL 1,250 MG in 0.9 % Sodium Chloride 250 ML 166.67 MG IV ×2 (09:44→21:58)
[2022-10-05] MEDS: Subcutaneous Insulin Pump 1 EACH SUBCUT ×4 (09:50→19:52)
--- NOTE | 2022-10-05 11:22 | HO.PM.IMPN ---
Subjective Subjective Date of Service: 10/05/22 Interval History: cc: left foot dfu interval history:improving Cardiovascular Cardiovascular: Reports no additional cardiovascular complaints Gastrointestinal Gastrointestinal: Reports no additional gastrointestinal complaints Physical Exam Vital Signs: Vital Signs: Last Vital Signs Temp 97.8 F 10/05/22 07:23 Pulse 71 10/05/22 08:01 Resp 18 10/05/22 08:01 BP 142/74 H 10/05/22 07:23 Pulse Ox 97 10/05/22 07:23 O2 Del Method 10/05/22 07:23 BMI result Body Mass Index 30.8 Const: General: comfortable and no acute distress Resp: Effort & Inspection: normal respiratory effort Cardio: Rate: regular rate Extrem: Other: left foot open wound - much cleaner and dyer, good granulation, cellulitis much improved Objective Data Active Medications Acetaminophen (Acetaminophen 325 Mg Tablet) 650 mg PO Q6H PRN PRN Reason: Pain, Mild (Pain Scale 1-3) Aspirin (Aspirin Enteric Coated 81 Mg Tablet.) 81 mg PO DAILY@1700 [facility] Last Admin: 10/04/22 17:32 Dose: 81 mg Documented By: RAJEEV Atorvastatin Calcium (Atorvastatin Calcium 80 Mg Tablet) 80 mg PO BEDTIME [facility] Last Admin: 10/04/22 20:42 Dose: 80 mg Documented By: RAJEEV Dextrose (Dextrose 50 % 25 Gm/50 Ml Syringe) 25 gm IVPUSH Q15M PRN; Protocol PRN Reason: per Hypoglycemia Standing Ord. Digoxin (Digoxin 0.125 Mg Tablet) 0.125 mg PO MOWEFR@0730 [facility] Last Admin: 10/04/22 07:40 Dose: 0.125 mg Documented By: MIRNA Doxepin HCl (Doxepin Hcl 10 Mg Capsule) 10 mg PO BEDTIME [facility] Last Admin: 10/04/22 20:42 Dose: 10 mg Documented By: RAJEEV Ezetimibe (Ezetimibe 10 Mg Tablet) 10 mg PO DAILY@0730 [facility] Last Admin: 10/05/22 07:32 Dose: 10 mg Documented By: MIRNA Enoxaparin Sodium (Enoxaparin Sodium 40 Mg/0.4 Ml Syringe) 40 mg SUBCUT Q24H [facility] Last Admin: 10/04/22 20:40 Dose: 40 mg Documented By: RAJEEV Ferrous Sulfate (Ferrous Sulfate 324 Mg Tablet.) 324 mg PO DAILY@1200,1700 [facility] Last Admin: 10/04/22 17:32 Dose: 324 mg Documented By: RAJEEV Fluoxetine HCl (Fluoxetine Hcl 20 Mg Capsule) 20 mg PO DAILY@0730 [facility] Last Admin: 10/05/22 07:32 Dose: 20 mg Documented By: MIRNA Fluticasone Propionate (Fluticasone Propionate Nasal 16 Gm [place]) 1 spray NOSTRIL-B DAILY PRN PRN Reason: Congestion Fluticasone/Vilanterol (Fluticasone/Vilanterol 100/25 Blst.W.Dev) 1 puff INHALE DAILY [facility] Last Admin: 10/05/22 08:00 Dose: 1 puff Documented By: JADE Furosemide (Furosemide 40 Mg Tablet) 40 mg PO BID@0900,1800 [facility]; Protocol Last Admin: 10/05/22 07:32 Dose: 40 mg Documented By: MIRNA Gabapentin (Gabapentin 100 Mg Capsule) 200 mg PO TID [facility] Last Admin: 10/05/22 07:33 Dose: 200 mg Documented By: MIRNA Glucose (Glucose Gel 15 Gm Gel..Gram.) 15 gm PO Q15M PRN; Protocol PRN Reason: per Hypoglycemia Standing Ord. Piperacillin Sod/Tazobactam (Sod 4.5 gm/ Sodium Chloride) 100 mls @ 200 mls/hr IV Q6H [facility] Last Infusion: 10/05/22 07:36 Dose: 200 mls/hr Documented By: MIRNA Vancomycin HCl 1,250 mg/ (Sodium Chloride) 250 mls @ 166.667 mls/hr IV Q12H [facility] Last Admin: 10/05/22 09:44 Dose: 166.67 mls/hr Documented By: MIRNA Insulin Glargine (Insulin Glargine,Hum.Rec.Anlog 100 Unit/Ml 10 Ml Vial) 30 unit SUBCUT BEDTIME [facility] Last Admin: 10/04/22 20:45 Dose: Not Given Documented By: RAJEEV Non-Admin Reason: pt has own insulin pump Insulin Human Lispro (Insulin Lispro 100 Unit/Ml 3 Ml Vial) 0 unit SUBCUT QIDACHS [facility]; Protocol Last Admin: 10/05/22 07:34 Dose: Not Given Documented By: MIRNA Non-Admin Reason: pump Insulin Pump (Subcutaneous Insulin Pump) 1 each SUBCUT QIDACHS [facility]; Protocol Last Admin: 10/05/22 09:50 Dose: 1 each Documented By: MIRNA Lamotrigine (Lamotrigine 100 Mg Tablet) 100 mg PO BEDTIME [facility] Last Admin: 10/04/22 20:42 Dose: 100 mg Documented By: RAJEEV Melatonin (Melatonin 3 Mg Tablet) 6 mg PO BEDTIME PRN PRN Reason: Insomnia Melatonin (Melatonin 3 Mg Tablet) 6 mg PO BEDTIME [facility] Last Admin: 10/04/22 20:42 Dose: 6 mg Documented By: RAJEEV Non-Formulary Medication (Bempedoic Acid [Nexletol]) 180 mg PO DAILY@729 [facility] Omeprazole (Omeprazole 20 Mg Capsule.Dr) 20 mg PO DAILY@729 [facility] Last Admin: 10/05/22 07:33 Dose: 20 mg Documented By: MIRNA Ondansetron HCl (Ondansetron Hcl 4 Mg/2 Ml Vial) 4 mg IVPUSH Q8H PRN PRN Reason: Nausea and Vomiting Pharmacy Consult (Consult Rx Perform Med Rec) 1 each MISCELLANE ONCE PRN PRN Reason: Consult order Pharmacy Consult (Consult Rx Vancomycin Dosing) 1 each MISCELLANE DAILY PRN PRN Reason: Consult order Sodium Chloride (0.9 % Sodium Chloride Flush 3 Ml Syringe) 3 ml IVFLUSH QSHIFT [facility] Last Admin: 10/05/22 07:33 Dose: 3 ml Documented By: MIRNA Labs CBC & Chem 7: 10/05/22 07:48 10/05/22 07:51 Labs: Laboratory Results - last 24 hr 10/04/22 10/04/22 10/05/22 16:00 19:52 07:21 MCV MCH MCHC RDW Plt Count MPV Absolute Nucleated RBC Nucleated RBC % (auto) Anion Gap Estim Creat Clear Calc Estimated GFR POC Glucose 217 H 141 H 112 Fasting Glucose Calcium Vancomycin Trough 10/05/22 10/05/22 10/05/22 07:48 07:48 07:51 MCV 95.0 MCH 29.2 MCHC 30.7 L RDW 12.9 Plt Count 398 MPV 9.8 Absolute Nucleated RBC 0.000 Nucleated RBC % (auto) 0.0 Anion Gap 16 Estim Creat Clear Calc 83.9 Estimated GFR > 60 POC Glucose Fasting Glucose 115 H Calcium 9.0 Vancomycin Trough 14.6 Microbiology Microbiology Results: Microbiology 10/04/22 08:19 Blood Culture - Preliminary Blood - Venous No growth after 24 hours. 10/04/22 08:19 Blood Culture - Preliminary Blood - Venous No growth after 24 hours. 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 Sepsis (not severe) due to left foot abscess due to DM with likely acute OM vanc, zosyn, ID appreciated, likely 6 weeks iv abx surgery appreciated - no surgical intervention at this time blood culture - 1/2 GPC in chains follow up cultures - repeat 10/04/22, echo pending will need picc once cultures clear, plan to do abx at home normocytic anemia likely inflammatory due to above monitor DM insulin CAD s/p cabg continue asa, lipitor Essential hypertension lisinopril, imdur, aldactone Mood disorder lamictal Peripheral neuropathy continue gabapentin moderate persistent Asthma with history of RV dysfunction -continue breo not in exacerbation lasix (on torsemide at home) follow up echo DVT prohylaxis: Lovenox 40mg daily Full code reason for continued hospitalization:iv abx for OM, awaiting cultures Quality Stroke Does the patient have a stroke diagnosis?: No VTE Prior VTE?: No VTE Risk Level:: Medical - moderate - high VTE Device Contraindication: Treatment Not Indicated VTE Drug Contraindication: N/A - Med Ordered
[2022-10-05 11:34] LABS: Glucose, Whole Blood 104 mg/dL (60-115)
[2022-10-05 12:00] VITALS: BP 133/69; PULSE 70; RESP 17; TEMP 36.4; O2SAT 100
[2022-10-05] MEDS: Ferrous Sulfate 324 MG TABLET.DR PO ×2 (12:43→17:00)
[2022-10-05] MEDS: lisinopriL 5 MG TABLET PO (12:43)
[2022-10-05 15:28] VITALS: BP 136/61; PULSE 80; RESP 17; TEMP 36.1; O2SAT 97
[2022-10-05 16:04] LABS: Glucose, Whole Blood 154 mg/dL (60-115)
[2022-10-05] MEDS: Aspirin Enteric Coated 81 MG TABLET.DR PO (17:00)
[2022-10-05 19:23] VITALS: BP 145/71; PULSE 70; RESP 16; TEMP 36.7; O2SAT 99
[2022-10-05 19:46] LABS: Glucose, Whole Blood 215 mg/dL (60-115)
[2022-10-05] MEDS: Melatonin 3 MG TABLET 6 MG PO (20:07)
[2022-10-05] MEDS: lamoTRIgine 100 MG TABLET PO (20:07)
[2022-10-05] MEDS: Atorvastatin Calcium 80 MG TABLET PO (20:07)
[2022-10-05] MEDS: Doxepin HCl 10 MG CAPSULE PO (20:07)
[2022-10-05] MEDS: Enoxaparin Sodium 40 MG/0.4 ML SYRINGE SUBCUT (20:08)
[2022-10-06] VITALS (7 sets, daily range): BP systolic 117–132; BP diastolic 59–68; PULSE 64–79; RESP 16–18; TEMP 36.4–36.7; O2SAT 93–99
[2022-10-06] MEDS: Piperacillin Sodium/Tazobactam 4.5 GM in 0.9 % Sodium Chloride 100 ML IV ×2 (00:01→06:09)
[2022-10-06 06:00] LABS: Estimated Glomerular Filt Rate > 60
[2022-10-06 07:29] LABS: Glucose, Whole Blood 109 mg/dL (60-115)
--- NOTE | 2022-10-06 07:46 | HE.PHANOTE ---
SABRINA ADKINS CONTINUE CURRENT DOSE, NEXT TROUGH DUE @1999 [facility]
[2022-10-06] MEDS: Fluticasone/Vilanterol 100/25 BLST.W.DEV 1 PUFF INHALE (07:50)
[2022-10-06] MEDS: Spironolactone 25 MG TABLET PO (08:13)
[2022-10-06] MEDS: Isosorbide Mononitrate 30 MG TAB.ER.24H PO (08:13)
[2022-10-06] MEDS: lisinopriL 10 MG TABLET PO (08:13)
[2022-10-06] MEDS: Ezetimibe 10 MG TABLET PO (08:13)
[2022-10-06] MEDS: Furosemide 40 MG TABLET PO ×2 (08:13→17:15)
[2022-10-06] MEDS: Gabapentin 100 MG CAPSULE 200 MG PO ×3 (08:13→20:46)
[2022-10-06] MEDS: FLUoxetine HCl 20 MG CAPSULE PO (08:13)
[2022-10-06] MEDS: Omeprazole 20 MG CAPSULE.DR PO (08:13)
[2022-10-06] MEDS: Subcutaneous Insulin Pump 1 EACH SUBCUT ×3 (08:17→20:47)
[2022-10-06] MEDS: 0.9 % Sodium Chloride Flush 3 ML SYRINGE IVFLUSH ×3 (08:17→21:57)
[2022-10-06] MEDS: Digoxin 0.125 MG TABLET PO (08:19)
--- NOTE | 2022-10-06 09:57 | P.PNGS_ITS ---
Subjective Subjective Date of Service: 10/06/22 Interval history: Denies new complaints Says pain has improved significantly on left foot Physical Exam Vital Signs: Vital Signs: Last Vital Signs Temp 97.5 F 10/06/22 07:23 Pulse 68 10/06/22 07:50 Resp 18 10/06/22 07:50 BP 130/62 10/06/22 07:23 Pulse Ox 93 10/06/22 07:23 O2 Del Method 10/06/22 07:23 BMI result Body Mass Index 30.8 Const: General: comfortable and no acute distress Resp: Effort & Inspection: normal respiratory effort Cardio: Rate: regular rate Extrem: Other: Dressings removed - Left foot wound clean, edema and cellulitis improving well, no pus, good granulation seen Objective Data Active Medications Acetaminophen (Acetaminophen 325 Mg Tablet) 650 mg PO Q6H PRN PRN Reason: Pain, Mild (Pain Scale 1-3) Aspirin (Aspirin Enteric Coated 81 Mg Tablet.) 81 mg PO DAILY@1700 [facility] Last Admin: 10/05/22 17:00 Dose: 81 mg Documented By: JAMILAH Atorvastatin Calcium (Atorvastatin Calcium 80 Mg Tablet) 80 mg PO BEDTIME [facility] Last Admin: 10/05/22 20:07 Dose: 80 mg Documented By: BOOKER Dextrose (Dextrose 50 % 25 Gm/50 Ml Syringe) 25 gm IVPUSH Q15M PRN; Protocol PRN Reason: per Hypoglycemia Standing Ord. Digoxin (Digoxin 0.125 Mg Tablet) 0.125 mg PO MOWEFR@0730 [facility] Last Admin: 10/06/22 08:19 Dose: 0.125 mg Documented By: JOSSE Doxepin HCl (Doxepin Hcl 10 Mg Capsule) 10 mg PO BEDTIME [facility] Last Admin: 10/05/22 20:07 Dose: 10 mg Documented By: BOOKER Ezetimibe (Ezetimibe 10 Mg Tablet) 10 mg PO DAILY@0730 [facility] Last Admin: 10/06/22 08:13 Dose: 10 mg Documented By: JOSSE Enoxaparin Sodium (Enoxaparin Sodium 40 Mg/0.4 Ml Syringe) 40 mg SUBCUT Q24H [facility] Last Admin: 10/05/22 20:08 Dose: 40 mg Documented By: BOOKER Ferrous Sulfate (Ferrous Sulfate 324 Mg Tablet.) 324 mg PO DAILY@1200,1700 [facility] Last Admin: 10/05/22 17:00 Dose: 324 mg Documented By: SUKHI-RIVLEONCIO Fluoxetine HCl (Fluoxetine Hcl 20 Mg Capsule) 20 mg PO DAILY@0730 [facility] Last Admin: 10/06/22 08:13 Dose: 20 mg Documented By: JOSSE Fluticasone Propionate (Fluticasone Propionate Nasal 16 Gm [place]) 1 spray NOSTRIL-B DAILY PRN PRN Reason: Congestion Fluticasone/Vilanterol (Fluticasone/Vilanterol 100/25 Blst.W.Dev) 1 puff INHALE DAILY [facility] Last Admin: 10/06/22 07:50 Dose: 1 puff Documented By: JADE Furosemide (Furosemide 40 Mg Tablet) 40 mg PO BID@0900,1800 [facility]; Protocol Last Admin: 10/06/22 08:13 Dose: 40 mg Documented By: JOSSE Gabapentin (Gabapentin 100 Mg Capsule) 200 mg PO TID [facility] Last Admin: 10/06/22 08:13 Dose: 200 mg Documented By: JOSSE Glucose (Glucose Gel 15 Gm Gel..Gram.) 15 gm PO Q15M PRN; Protocol PRN Reason: per Hypoglycemia Standing Ord. Piperacillin Sod/Tazobactam (Sod 4.5 gm/ Sodium Chloride) 100 mls @ 200 mls/hr IV Q6H [facility] Last Infusion: 10/06/22 06:47 Dose: 0 mls/hr Documented By: BOOKER Vancomycin HCl 1,250 mg/ (Sodium Chloride) 250 mls @ 166.667 mls/hr IV Q12H [facility] Last Infusion: 10/05/22 23:35 Dose: 0 mls/hr Documented By: BOOKER Insulin Glargine (Insulin Glargine,Hum.Rec.Anlog 100 Unit/Ml 10 Ml Vial) 30 unit SUBCUT BEDTIME [facility] Last Admin: 10/05/22 20:06 Dose: Not Given Documented By: BOOKER Non-Admin Reason: pt has own insulin pump on. Insulin Human Lispro (Insulin Lispro 100 Unit/Ml 3 Ml Vial) 0 unit SUBCUT QIDACHS [facility]; Protocol Last Admin: 10/06/22 07:25 Dose: Not Given Documented By: JOSSE Non-Admin Reason: insuin pump Insulin Pump (Subcutaneous Insulin Pump) 1 each SUBCUT QIDACHS [facility]; Protocol Last Admin: 10/06/22 08:17 Dose: 1 each Documented By: JOSSE Isosorbide Mononitrate (Isosorbide Mononitrate 30 Mg Tab.Er.24h) 30 mg PO DAILY@0730 [facility]; Protocol Last Admin: 10/06/22 08:13 Dose: 30 mg Documented By: JOSSE Lamotrigine (Lamotrigine 100 Mg Tablet) 100 mg PO BEDTIME [facility] Last Admin: 10/05/22 20:07 Dose: 100 mg Documented By: BOOKER Lisinopril (Lisinopril 5 Mg Tablet) 5 mg PO DAILY@1200 [facility]; Protocol Last Admin: 10/05/22 12:43 Dose: 5 mg Documented By: SUKHI-RIVLEONCIO Lisinopril (Lisinopril 10 Mg Tablet) 10 mg PO DAILY@0730 [facility]; Protocol Last Admin: 10/06/22 08:13 Dose: 10 mg Documented By: JOSSE Melatonin (Melatonin 3 Mg Tablet) 6 mg PO BEDTIME PRN PRN Reason: Insomnia Melatonin (Melatonin 3 Mg Tablet) 6 mg PO BEDTIME [facility] Last Admin: 10/05/22 20:07 Dose: 6 mg Documented By: BOOKER Omeprazole (Omeprazole 20 Mg Capsule.Dr) 20 mg PO DAILY@0730 [facility] Last Admin: 10/06/22 08:13 Dose: 20 mg Documented By: JOSSE Ondansetron HCl (Ondansetron Hcl 4 Mg/2 Ml Vial) 4 mg IVPUSH Q8H PRN PRN Reason: Nausea and Vomiting Pharmacy Consult (Consult Rx Perform Med Rec) 1 each MISCELLANE ONCE PRN PRN Reason: Consult order Pharmacy Consult (Consult Rx Vancomycin Dosing) 1 each MISCELLANE DAILY PRN PRN Reason: Consult order Sodium Chloride (0.9 % Sodium Chloride Flush 3 Ml Syringe) 3 ml IVFLUSH [facility] Last Admin: 10/06/22 08:17 Dose: 3 ml Documented By: JOSSE Spironolactone (Spironolactone 25 Mg Tablet) 25 mg PO DAILY@0730 [facility]; Protocol Last Admin: 10/06/22 08:13 Dose: 25 mg Documented By: JOSSE Labs CBC & Chem 7: 10/05/22 07:48 10/06/22 05:17 Labs: Laboratory Results - last 24 hr 10/05/22 10/05/22 10/05/22 11:31 15:30 19:26 Estim Creat Clear Calc Estimated GFR POC Glucose 104 154 H 215 H 10/06/22 10/06/22 05:17 07:21 Estim Creat Clear Calc 83.0 Estimated GFR > 60 POC Glucose 109 Microbiology Microbiology Results: Microbiology 10/01/22 15:47 Blood Culture - Preliminary Blood - Venous Gram positive cocci 10/04/22 08:19 Blood Culture - Preliminary Blood - Venous No growth after 24 hours. 10/04/22 08:19 Blood Culture - Preliminary Blood - Venous No growth after 24 hours. Procedures Date of Service Date of Service: 10/06/22 Progress Note: A&P Assessment and plan (1) Wound of left foot: Status: Acute Assessment and Plan: I have changed her dressings I have applied gradually dressings and wrapped the foot with Shanda roll This is improving well Continue same wound care regimen May follow-up with the Wound [facility] after discharge Time Spent With Patient Time: Total time spent is greater than 50% in coordination of care (as documented) at patient's floor/unit and/or counseling patient: Quality Stroke Does the patient have a stroke diagnosis?: No VTE Prior VTE?: No VTE Risk Level:: Medical - moderate - high VTE Device Contraindication: Treatment Not Indicated VTE Drug Contraindication: N/A - Med Ordered
[2022-10-06] MEDS: vancomycin HCL 1,250 MG in 0.9 % Sodium Chloride 250 ML 166.67 MG IV (10:00)
--- NOTE | 2022-10-06 11:28 | MHC.CM.PN ---
EMR REVIEWED, PICC LINE PLACEMENT ORDERED AND TO BE DONE PENDING PENDING BC'S, ANTIC LINE PLACEMENT LATER TODAY AND ANTIC D/C TOMORROW AM PRIOR TO 10AM VANCO DOSE, [facility] AT BEDSIDE TODAY AND REPORTS DTR DIEGO DID WELL W/TEACH. [facility] HAS REQUESTED DRESSING ORDERS ON D/C SUMMARY.
[2022-10-06 11:33] LABS: Glucose, Whole Blood 104 mg/dL (60-115)
--- NOTE | 2022-10-06 11:47 | HO.PM.IMPN ---
Subjective Subjective Date of Service: 10/06/22 Interval History: the patient was seen and evaluated this morning Laying in bed, feels comfortable Denies any fever, chills or shortness of breath No reported other overnight events. Systemic review: No fever, chills or weakness No chest pain, palpitation No shortness of breath or coughing No abdominal pain, nausea or vomiting No urinary symptoms Wound looks much better with less pain and swelling Physical Exam Vital Signs: Vital Signs: Last Vital Signs Temp 97.7 F 10/06/22 11:17 Pulse 76 10/06/22 11:17 Resp 18 10/06/22 11:17 BP 117/63 10/06/22 11:17 Pulse Ox 97 10/06/22 11:17 O2 Del Method 10/06/22 11:17 BMI result Body Mass Index 30.8 Const: Other: Constitutional : Awake, interactive, not in distress Neck : Normal inspection, Supple Cardiovascular : RRR, no JVP, no lower extremity edema Respiratory : good bilateral air entry, no crackles, wheezes or rhonchi Gastrointestinal: soft, lax, Normal bowel sounds, Non tender Skin : Warm, Dry,Left foot wound clean, edema and cellulitis improving well, no pus, good granulation seen Neurological : Alert & oriented x3, No focal deficit , CN 2-12 within normal Objective Data Active Medications Acetaminophen (Acetaminophen 325 Mg Tablet) 650 mg PO Q6H PRN PRN Reason: Pain, Mild (Pain Scale 1-3) Aspirin (Aspirin Enteric Coated 81 Mg Tablet.) 81 mg PO DAILY@1700 [facility] Last Admin: 10/05/22 17:00 Dose: 81 mg Documented By: JAMILAH Atorvastatin Calcium (Atorvastatin Calcium 80 Mg Tablet) 80 mg PO BEDTIME [facility] Last Admin: 10/05/22 20:07 Dose: 80 mg Documented By: BOOKER Dextrose (Dextrose 50 % 25 Gm/50 Ml Syringe) 25 gm IVPUSH Q15M PRN; Protocol PRN Reason: per Hypoglycemia Standing Ord. Digoxin (Digoxin 0.125 Mg Tablet) 0.125 mg PO MOWEFR@0730 [facility] Last Admin: 10/06/22 08:19 Dose: 0.125 mg Documented By: DABNory Doxepin HCl (Doxepin Hcl 10 Mg Capsule) 10 mg PO BEDTIME [facility] Last Admin: 10/05/22 20:07 Dose: 10 mg Documented By: BOOKER Ezetimibe (Ezetimibe 10 Mg Tablet) 10 mg PO DAILY@0730 [facility] Last Admin: 10/06/22 08:13 Dose: 10 mg Documented By: JOSSE Enoxaparin Sodium (Enoxaparin Sodium 40 Mg/0.4 Ml Syringe) 40 mg SUBCUT Q24H [facility] Last Admin: 10/05/22 20:08 Dose: 40 mg Documented By: BOOKER Ferrous Sulfate (Ferrous Sulfate 324 Mg Tablet.Dr) 324 mg PO DAILY@1200,1700 [facility] Last Admin: 10/05/22 17:00 Dose: 324 mg Documented By: SUKHI-RIVLA Fluoxetine HCl (Fluoxetine Hcl 20 Mg Capsule) 20 mg PO DAILY@0730 [facility] Last Admin: 10/06/22 08:13 Dose: 20 mg Documented By: JOSSE Fluticasone Propionate (Fluticasone Propionate Nasal 16 Gm [place]) 1 spray NOSTRIL-B DAILY PRN PRN Reason: Congestion Fluticasone/Vilanterol (Fluticasone/Vilanterol 100/25 Blst.W.Dev) 1 puff INHALE DAILY [facility] Last Admin: 10/06/22 07:50 Dose: 1 puff Documented By: JADE Furosemide (Furosemide 40 Mg Tablet) 40 mg PO BID@0900,1800 [facility]; Protocol Last Admin: 10/06/22 08:13 Dose: 40 mg Documented By: JOSSE Gabapentin (Gabapentin 100 Mg Capsule) 200 mg PO TID [facility] Last Admin: 10/06/22 08:13 Dose: 200 mg Documented By: JOSSE Glucose (Glucose Gel 15 Gm Gel..Gram.) 15 gm PO Q15M PRN; Protocol PRN Reason: per Hypoglycemia Standing Ord. Piperacillin Sod/Tazobactam (Sod 4.5 gm/ Sodium Chloride) 100 mls @ 200 mls/hr IV Q6H [facility] Last Infusion: 10/06/22 06:47 Dose: 0 mls/hr Documented By: BOOKER Vancomycin HCl 1,250 mg/ (Sodium Chloride) 250 mls @ 166.667 mls/hr IV Q12H [facility] Last Admin: 10/06/22 10:00 Dose: 166.67 mls/hr Documented By: JOSSE Insulin Glargine (Insulin Glargine,Hum.Rec.Anlog 100 Unit/Ml 10 Ml Vial) 30 unit SUBCUT BEDTIME [facility] Last Admin: 10/05/22 20:06 Dose: Not Given Documented By: BOOKER Non-Admin Reason: pt has own insulin pump on. Insulin Human Lispro (Insulin Lispro 100 Unit/Ml 3 Ml Vial) 0 unit SUBCUT QIDACHS [facility]; Protocol Last Admin: 10/06/22 11:37 Dose: Not Given Documented By: JOSSE Non-Admin Reason: insulin pump Insulin Pump (Subcutaneous Insulin Pump) 1 each SUBCUT QIDACHS [facility]; Protocol Last Admin: 10/06/22 11:38 Dose: 1 each Documented By: JOSSE Isosorbide Mononitrate (Isosorbide Mononitrate 30 Mg Tab.Er.24h) 30 mg PO DAILY@0730 [facility]; Protocol Last Admin: 10/06/22 08:13 Dose: 30 mg Documented By: JOSSE Lamotrigine (Lamotrigine 100 Mg Tablet) 100 mg PO BEDTIME [facility] Last Admin: 10/05/22 20:07 Dose: 100 mg Documented By: BOOKER Lisinopril (Lisinopril 5 Mg Tablet) 5 mg PO DAILY@1200 [facility]; Protocol Last Admin: 10/05/22 12:43 Dose: 5 mg Documented By: JAMILAH Lisinopril (Lisinopril 10 Mg Tablet) 10 mg PO DAILY@0730 [facility]; Protocol Last Admin: 10/06/22 08:13 Dose: 10 mg Documented By: JOSSE Melatonin (Melatonin 3 Mg Tablet) 6 mg PO BEDTIME PRN PRN Reason: Insomnia Melatonin (Melatonin 3 Mg Tablet) 6 mg PO BEDTIME [facility] Last Admin: 10/05/22 20:07 Dose: 6 mg Documented By: BOOKER Omeprazole (Omeprazole 20 Mg Capsule.Dr) 20 mg PO DAILY@0730 [facility] Last Admin: 10/06/22 08:13 Dose: 20 mg Documented By: JOSSE Ondansetron HCl (Ondansetron Hcl 4 Mg/2 Ml Vial) 4 mg IVPUSH Q8H PRN PRN Reason: Nausea and Vomiting Pharmacy Consult (Consult Rx Perform Med Rec) 1 each MISCELLANE ONCE PRN PRN Reason: Consult order Pharmacy Consult (Consult Rx Vancomycin Dosing) 1 each MISCELLANE DAILY PRN PRN Reason: Consult order Sodium Chloride (0.9 % Sodium Chloride Flush 3 Ml Syringe) 3 ml IVFLUSH QSHIFT [facility] Last Admin: 10/06/22 08:17 Dose: 3 ml Documented By: JOSSE Spironolactone (Spironolactone 25 Mg Tablet) 25 mg PO DAILY@0730 [facility]; Protocol Last Admin: 10/06/22 08:13 Dose: 25 mg Documented By: JOSSE Labs CBC & Chem 7: 10/05/22 07:48 10/06/22 05:17 Labs: Laboratory Results - last 24 hr 10/05/22 10/05/22 10/06/22 15:30 19:26 05:17 Estim Creat Clear Calc 83.0 Estimated GFR > 60 POC Glucose 154 H 215 H 10/06/22 10/06/22 07:21 11:16 Estim Creat Clear Calc Estimated GFR POC Glucose 109 104 Microbiology Microbiology Results: Microbiology 10/04/22 08:19 Blood Culture - Preliminary Blood - Venous No growth after 48 hours. 10/04/22 08:19 Blood Culture - Preliminary Blood - Venous No growth after 48 hours. 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 Sepsis (not severe) due to left foot abscess due to DM with likely acute OM Change antibiotic to IV vancomycin only per ID surgery appreciated - to follow with the wound clinic blood culture - 1/2 GPC in chains, seems contaminant Negative cultures from 10/04/22, echo negative To place a PICC line Plan for home antibiotic followed by VNA normocytic anemia likely inflammatory due to above monitor DM insulin CAD s/p cabg continue asa, lipitor Essential hypertension lisinopril, imdur, aldactone Mood disorder lamictal Peripheral neuropathy continue gabapentin moderate persistent Asthma with history of RV dysfunction continue breo not in exacerbation lasix (on torsemide at home) follow up echo DVT prohylaxis: Lovenox 40mg daily Full code reason for continued hospitalization:iv abx for OM, pending safe discharge plan and IV antibiotics at home Quality Stroke Does the patient have a stroke diagnosis?: No VTE Prior VTE?: No VTE Risk Level:: Medical - moderate - high VTE Device Contraindication: Treatment Not Indicated VTE Drug Contraindication: N/A - Med Ordered
[2022-10-06] MEDS: Ferrous Sulfate 324 MG TABLET.DR PO ×2 (11:55→17:15)
[2022-10-06] MEDS: lisinopriL 5 MG TABLET PO (11:55)
[2022-10-06 16:02] LABS: Glucose, Whole Blood 83 mg/dL (60-115)
[2022-10-06] MEDS: Aspirin Enteric Coated 81 MG TABLET.DR PO (17:15)
[2022-10-06 19:37] LABS: Glucose, Whole Blood 118 mg/dL (60-115)
[2022-10-06] MEDS: Melatonin 3 MG TABLET 6 MG PO (20:46)
[2022-10-06] MEDS: Atorvastatin Calcium 80 MG TABLET PO (20:46)
[2022-10-06] MEDS: lamoTRIgine 100 MG TABLET PO (20:46)
[2022-10-06] MEDS: Enoxaparin Sodium 40 MG/0.4 ML SYRINGE SUBCUT (20:46)
[2022-10-06] MEDS: Doxepin HCl 10 MG CAPSULE PO (20:46)
--- NOTE | 2022-10-06 20:48 | HE.PHANOTE ---
RE: vanco Trough on 10/06 came back at 19.0; changed dose to 750mg Q12H with predicted AUC 480mg/L. Next level to be drawn 10/08 @8220
[2022-10-06] MEDS: vancomycin HCL 750 MG in 0.9 % Sodium Chloride 250 ML 265 MG IV (21:56)
[2022-10-07] VITALS: BP 104/52; PULSE 70; RESP 18; TEMP 36.3; O2SAT 100
[2022-10-07 04:00] VITALS: BP 131/61; PULSE 69; RESP 18; TEMP 36.1; O2SAT 97
[2022-10-07 05:49] LABS: Hematocrit 29.9 % (37.0-47.0); Hemoglobin 9.3 g/dl (12.0-16.0); Mean Corpuscular HGB Conc 31.1 g/dl (31.0-35.0); Mean Corpuscular Hemoglobin 29.4 pg (27.0-33.0); Mean Corpuscular Volume 94.6 fL (80.0-98.0); Mean Platelet Volume 9.7 fL (9.4-12.3); Platelet Count 353 X10*3/uL (160-400); Red Blood Count 3.16 X10*6/uL (4.20-5.50); Red Cell Distribution Width 13.1 % (11.0-16.0); White Blood Count 7.2 X10*3/uL (4.8-10.8)
[2022-10-07 06:02] LABS: Anion Gap 14 (12-20); Blood Urea Nitrogen 11 mg/dL (9-16); Calcium 9.3 mg/dL (8.4-10.2); Carbon Dioxide 29 mmol/L (22-29); Chloride 106 mmol/L (96-108); Creatinine Clr Calc Pharmacy 72.9; Estimated Glomerular Filt Rate 55; Glucose Random 198 mg/dL (60-115); Potassium 4.8 mmol/L (3.3-5.1); Sodium 144 mmol/L (135-145)
--- NOTE | 2022-10-07 07:17 | HE.PHANOTE ---
Vancomycin Dosing Patient renal function slow rising. Continue current regimen 750 mg Q12H. Expected AUC 422. Trough scheudled for tomorrow 10/08 @ 0800. Cherry HurstD
[2022-10-07] MEDS: FLUoxetine HCl 20 MG CAPSULE PO (07:34)
[2022-10-07] MEDS: Omeprazole 20 MG CAPSULE.DR PO (07:34)
[2022-10-07] MEDS: Spironolactone 25 MG TABLET PO (07:34)
[2022-10-07] MEDS: Gabapentin 100 MG CAPSULE 200 MG PO (07:34)
[2022-10-07] MEDS: Isosorbide Mononitrate 30 MG TAB.ER.24H PO (07:34)
[2022-10-07] MEDS: Ezetimibe 10 MG TABLET PO (07:35)
[2022-10-07] MEDS: lisinopriL 10 MG TABLET PO (07:35)
[2022-10-07] MEDS: Furosemide 40 MG TABLET PO (07:35)
[2022-10-07] MEDS: 0.9 % Sodium Chloride Flush 3 ML SYRINGE IVFLUSH (07:44)
[2022-10-07] MEDS: Insulin Lispro 100 UNIT/ML 3 ML VIAL SUBCUT (07:44)
[2022-10-07 07:48] LABS: Glucose, Whole Blood 211 mg/dL (60-115)
[2022-10-07 08:00] VITALS: BP 126/76; PULSE 81; RESP 18; TEMP 36.3; O2SAT 97
--- NOTE | 2022-10-07 10:05 | P.PICC_ITS ---
PICC Line Insertion NPICC Diagnosis: Abscess left lower leg Indication: nursing home antibiotics Pertinent Labs: Reviewed Technique: Following informed consent including risks, benefits and alternatives and using sterile technique including cap and mask, sterile gown, glove and drape, the Right arm was prepped and draped in the usual sterile fashion of full barrier technique with CHG. Following completion of [place] Protocol the skin and soft tissues were anesthetized with 1% Lidocaine plain. Using ultrasound guidance, Right basilic vein access was obtained in a single attempt by this RN. Over an 0.018 wire through peel-away sheath, a Single 4 pitcairn islander lumen PASV PICC line was positioned. Catheter length is 43 cm internal length, 0 cm external l ength, for a total trimmed length of 43 cm. The procedure was performed in . Tip verification was performed by Raad Agee with Laci 3CG. Tip located in SVC. Ultrasound was used to document vein patency and for needle entry. A formal ultrasound picture and cardiac rhythm strip was recorded. Vascular Sales Support Manager has released the line for use and it is currently dressed with a StatLock, Tegaderm, and CHG disc. Verification has been performed for blood return and line patency. Arm Circumference: 32cm Equipment: Bard PowerPICC Solo Catheter Type: Bard PowerPICC Solo 4 pitcairn islander single lumen Lot #: [id number]
[2022-10-07] MEDS: vancomycin HCL 750 MG in 0.9 % Sodium Chloride 250 ML 265 MG IV (10:15)
--- NOTE | 2022-10-07 11:07 | MHC.CM.PN ---
Addendum entered by Radha Leigh 10/07/22 14:36: PICC REPORT AND DC SUMMARY SENT TO [facility]IA [facility] Original Note: PT NOW HAS HER PICC LINE SHE WILL GET A DOSE THIS MORNING AND THEN DC HOME [facility] WILL DELIVER THIS AFTER NOON [facility] WILL PROVIDE SOC AT 1800 HOURS TODAY PT WILL ARRANGE TRANSPORT
[2022-10-07 11:23] LABS: Glucose, Whole Blood 132 mg/dL (60-115)
[2022-10-07 11:29] VITALS: BP 117/61; PULSE 79; RESP 17; TEMP 36.4; O2SAT 98
--- NOTE | 2022-10-07 11:48 | P.DS_ITS ---
DS: Providers Provider Date of Service: 10/07/22 Date of admission: 10/01/22 19:25 Primary care physician: Yolie Desir MD Consults: 10/01/22 19:28 Consult to Infectious Diseases Routine Consulting Provider: Janett Muñiz Reason for consultation: ?osteo vs septic arthritis Has provider been notified: No 10/03/22 07:10 Consult to General Surgery Routine Consulting Provider: Kurt Wallace Reason for consultation: left foot DFU/OM with abscess DS: Diagnosis Discharge Diagnosis (1) Sepsis: Status: Acute (2) Wound of left foot: Status: Acute (3) DEVYN (obstructive sleep apnea): Status: Acute (4) Osteomyelitis: Status: Acute DS: Summary Hospital Course Hospital Course: Admission note HPI This is a 47-year-old female with pertinent history of coronary artery disease status post CABG, insulin-dependent diabetes mellitus with neuropathy and protei camille, mixed hyperlipidemia, essential hypertension, obstructive sleep apnea who presents to the emergency department for evaluation of left foot wound.? Patient states she has had left foot wound for a while now and follows wound care for it.? Patient noticed that her left foot wound was getting bigger over the last 3 days .? The wound ruptured in the ER as patient was trying to put her sandals o n.? Patient denies ever taking any antibiotics for it or wounds at other places.? Patient denies fever, chills, nausea, vomiting, dizziness, lightheadedness, blurry vision, double vision, chest discomfort, palpitations, shortness of breath, changes in urinary or bowel habits.? Patient has a pump for management of insulin-dependent diabetes mellitus.? States she is compliant with her medications for chronic medical conditions.? History was obtained via returned goods sorter as patient is [place]ian-speaking. In the emergency department, abscess self ruptured and pus was expressed from it.? Unfortunately cultures could be obtained.? Imaging was concerning for questionable osteomyelitis/ septic arthritis of the foot.? Inflammatory markers elevated. Hospital course The patient was admitted to the hospital for evaluation of left foot wound and abscess seen on images with MR scan suggestive of bone involvement. Evaluated by surgical team who did bedside debridement and wound care recommending outpatient wound care follow-up. Seen by infectious disease specialist as 1 bottle grew Gram-positive cocci in chains with seemed to be contaminant recommended total of 6 weeks of IV antibiotics for treatment of osteomyelitis as echo came back negative. Blood cultures turn negative on 10/04/2026. PICC line placed with a plan for treatment with vancomycin of 6 weeks to be administered at home with followed by VNA. Plan to follow with wound care team as outpatient. Continue vancomycin as prescribed until 11/15/2022 To follow with the wound clinic as outpatient Time Spent with Patient Time attestation: Total time spent providing and/or coordinating discharge services: Discharge coordination time: Greater than 30 minutes Quality: Safe Use of Opioids Does Pt have an Active Cancer Diagnosis on the Problem List?: No Quality: Stroke Does the patient have a stroke diagnosis?: No Physical Exam Vital Signs: Vital Signs: Last Vital Signs Temp 97.5 F 10/07/22 11:29 Pulse 79 10/07/22 11:29 Resp 17 10/07/22 11:29 BP 117/61 10/07/22 11:29 Pulse Ox 98 10/07/22 11:29 O2 Del Method 10/07/22 11:29 BMI result Body Mass Index 30.8 Const: Other: Constitutional : Awake, interactive, not in distress Neck : Normal inspection, Supple Cardiovascular : RRR, no JVP, no lower extremity edema Respiratory : good bilateral air entry, no crackles, wheezes or rhonchi Gastrointestinal: soft, lax, Normal bowel sounds, Non tender Skin : Warm, Dry,Left foot wound clean, edema and cellulitis improving well, no pus, good granulation seen Neurological : Alert & oriented x3, No focal deficit , CN 2-12 within normal DS: Data Data Completed and Pending Labs on day of discharge: Laboratory Results - last 24 hr 10/06/22 10/06/22 10/06/22 15:31 19:10 19:57 WBC RBC Hgb Hct MCV MCH MCHC RDW Plt Count MPV Absolute Nucleated RBC Nucleated RBC % (auto) Sodium Potassium Chloride Carbon Dioxide Anion Gap BUN Creatinine Estim Creat Clear Calc Estimated GFR POC Glucose 83 118 H Random Glucose Calcium Vancomycin Trough 19.0 10/07/22 10/07/22 10/07/22 05:17 05:17 07:36 WBC 7.2 RBC 3.16 L Hgb 9.3 L Hct 29.9 L MCV 94.6 MCH 29.4 MCHC 31.1 RDW 13.1 Plt Count 353 MPV 9.7 Absolute Nucleated RBC 0.000 Nucleated RBC % (auto) 0.0 Sodium 144 Potassium 4.8 Chloride 106 Carbon Dioxide 29 Anion Gap 14 BUN 11 Creatinine 1.07 Estim Creat Clear Calc 72.9 Estimated GFR 55 POC Glucose 211 H Random Glucose 198 H Calcium 9.3 Vancomycin Trough 10/07/22 11:15 WBC RBC Hgb Hct MCV MCH MCHC RDW Plt Count MPV Absolute Nucleated RBC Nucleated RBC % (auto) Sodium Potassium Chloride Carbon Dioxide Anion Gap BUN Creatinine Estim Creat Clear Calc Estimated GFR POC Glucose 132 H Random Glucose Calcium Vancomycin Trough Preliminary micro results at discharge 10/04/22 08:19 Blood Culture - Preliminary Blood - Venous No growth after 48 hours. 10/04/22 08:19 Blood Culture - Preliminary Blood - Venous No growth after 48 hours. Imaging Chest x-ray: Radiologist's impression: ITS Impressions Foot X-Ray 10/01/22 16:06 IMPRESSION: The soft tissue wound at the level of the fifth metatarsal base with worsening osteolysis and articular surface fragmentation involving the metatarsal base and adjacent cuboid. Findings suggest presence of septic arthritis and osteomyelitis. Chronic subarticular cystic lucency is observed in the adjacent fourth metatarsal base. Foot MRI 10/01/22 20:15 IMPRESSION: 1. Soft tissue ulceration and cellulitis along the lateral aspect of the midfoot with a complex subcutaneous fluid collection measuring up to 3.2 cm, concerning for an abscess formation. Adjacent marrow edema within the base of the 4th and 5th metatarsals as well as within the cuboid as well as the navicula and cuneiforms as well as the base of the 2nd and 3rd metatarsals. Findings are new/increased when compared to the prior examination and are consistent with acute osteomyelitis. 2. Edema within the intrinsic musculature of the foot which can be seen in diabetic patients. Discharge Plan Discharge Anticipated Discharge Date/Time: 10/07/22 11:41 Patient Disposition: Home Health Service Discharge Diagnosis: Osteomyelitis in left foot Referrals: [facility] [Other] - 1 Week [facility] [Outside] - 1 Week Yolie Desir MD [Primary Care Provider] - 1 Week Discharge Medications: New vancomycin 750 mg recon soln 750 mg IV Q12H Qty: 1 0RF Continued Xolair 150 mg recon soln 300 mg subcut Q2W 28 Days Qty: 4 12RF Rx Instructions: requires multiple injection sites; do not exceed 150 mg per injection site rosuvastatin 40 mg tablet 40 mg PO BEDTIME Qty: 30 4RF Lantus Solostar U-100 Insulin 100 unit/mL (3 mL) insulin pen 50 unit subcut DAILY Qty: 15 3RF fluticasone propion-salmeterol [Advair Diskus] 250-50 mcg/dose blister with device 1 puff inhalation BID doxepin 10 mg capsule 10 mg PO BEDTIME lisinopril 5 mg tablet 5 mg PO DAILY@1200 Rx Instructions: TO BE TAKEN AT 1200 gabapentin 100 mg capsule 200 mg PO TID fluoxetine 20 mg capsule 20 mg PO DAILY@0730 fluticasone propionate 50 mcg/actuation spray,suspension 1 - 2 spray intranasal DAILY PRN (Reason: Congestion) lamotrigine 100 mg tablet 100 mg PO BEDTIME melatonin 5 mg tablet 5 mg PO BEDTIME Nexletol 180 mg tablet 180 mg PO DAILY@0730 insulin lispro [Humalog U-100 Insulin] 100 unit/mL solution See Rx Instructions .ROUTE .COMPLEX Rx Instructions: up to 150 units subcut daily via pump; ezetimibe 10 mg tablet 10 mg PO DAILY@0730 ferrous gluconate 324 mg (38 mg iron) tablet 324 mg PO DAILY@1200,1700 Qty: 1 0RF spironolactone 25 mg tablet 25 mg PO DAILY@0730 torsemide 20 mg tablet 60 mg PO BID pantoprazole 40 mg tablet,delayed release (DR/EC) 40 mg PO DAILY@0730 aspirin [Adult Aspirin Regimen] 81 mg tablet,delayed release (DR/EC) 81 mg PO DAILY@1700 clopidogrel 75 mg tablet 75 mg PO DAILY@0730 isosorbide mononitrate 30 mg tablet extended release 24 hr 30 mg PO DAILY@0730 digoxin 125 mcg (0.125 mg) tablet 125 mcg PO MOWEFR@0730 lisinopril 10 mg tablet 10 mg PO DAILY@0730 Discharge Orders: Discharge Order (Routine); Ordered 10/07/22 Ordered By: Emeterio Correa Diet: Advance to usual diet Activity on Discharge: As tolerated Stand Alone Forms: Patient Portal Discharge page Care Plan Goals: Read below Health Concerns: Read below Plan of Treatment: Read below Assessment: You were admitted to the hospital for evaluation of left foot wound. Found to be septic with evidence of bone infection. Evaluated by surgical team who did debridement. Treated with IV antibiotics as you were evaluated by infectious disease specialist. Recommended treatment for total of 6 weeks of IV antibiotics. Continue vancomycin as prescribed until 11/15/2022 To follow with the wound clinic as outpatient
[2022-10-07] MEDS: lisinopriL 5 MG TABLET PO (12:03)
[2022-10-07] MEDS: Ferrous Sulfate 324 MG TABLET.DR PO (12:03)
--- NOTE | 2022-10-08 11:56 | W.MHC.F2F ---
Service Date Service Date: 10/08/22 Encounter Date of encounter: 10/07/22 Encounter: Osteomyelitis Reasons for Services Signs and symptoms assessed: Osteomyelitis left foot Reason for penitentiary: wound care and medication treatment Homebound: Leaving the home is medically contraindicated at this time without the asist of a device and/or another person due th the listed conditions above and below. Reason homebound: other Certification: Based on the above findings, I certify that this patient is confined to the home and needs intermittent penitentiary care, physical therapy and/or speech therapy, or continues to need occupational therapy. The patient is under my care, and I have initiated the establishment of the plan of care. The patient will be followed by a physician who will periodically review the plan of care.
== END 2022-10-07 12:31 | disposition home health service (06) | DRG 720 ==
LOC: HO.ED 18:34 → HO.EDOVER 19:37 → HO.S3 20:02
PROVIDERS: Internal Medicine; Physician Assistant Medical; Surgery; Admitting Provider Student in an Organized Health Care Education/Training Program; Emergency Provider Student in an Organized Health Care Education/Training Program; PCP Internal Medicine; Visit Provider Student in an Organized Health Care Education/Training Program
DX: A41.9 Sepsis, unspecified organism (principal); E11.52 Type 2 diabetes mellitus with diabetic peripheral angiopathy with gangrene; E11.40 Type 2 diabetes mellitus with diabetic neuropathy, unspecified; L97.422 Non-pressure chronic ulcer of left heel and midfoot with fat layer exposed; M86.172 Other acute osteomyelitis, left ankle and foot; D64.9 Anemia, unspecified; E11.621 Type 2 diabetes mellitus with foot ulcer; E11.69 Type 2 diabetes mellitus with other specified complication; I25.10 Atherosclerotic heart disease of native coronary artery without angina pectoris; I10 Essential (primary) hypertension; F39 Unspecified mood [affective] disorder; L97.522 Non-pressure chronic ulcer of other part of left foot with fat layer exposed; E78.2 Mixed hyperlipidemia; J45.20 Mild intermittent asthma, uncomplicated; G47.33 Obstructive sleep apnea (adult) (pediatric); Z20.822 Contact with and (suspected) exposure to COVID-19; Z95.1 Presence of aortocoronary bypass graft; Z88.1 Allergy status to other antibiotic agents; Z88.2 Allergy status to sulfonamides; Z79.4 Long term (current) use of insulin; Z79.02 Long term (current) use of antithrombotics/antiplatelets; Z79.51 Long term (current) use of inhaled steroids; Z79.82 Long term (current) use of aspirin; Z79.899 Other long term (current) drug therapy
CPT/HCPCS: 36415; 36573; 73620; 73720; 80048; 80053; 80202; 82565; 82947; 83605; 85025; 85027; 85652; 86140; 87040; 87205; 87635; 93306; 94640; 99285; A9585; C1751; J1650; J2543; J3370; Q9957

== ENCOUNTER 2022-10-13 10:11 | Outpatient (REF) | payer MEDICAID, SELFPAY ==
[2022-10-13 10:57] LABS: Anion Gap 16 (12-20); Blood Urea Nitrogen 26 mg/dL (9-16); Calcium 9.1 mg/dL (8.4-10.2); Carbon Dioxide 27 mmol/L (22-29); Chloride 102 mmol/L (96-108); Estimated Glomerular Filt Rate 30; Glucose Random 80 mg/dL (60-115); Sodium 141 mmol/L (135-145)
[2022-10-13 11:11] LABS: Vancomycin Trough 30.1 mcg/mL (10.0-20.0)
== END 2022-10-13 10:12 | disposition home or self-care (01) ==
LOC: HO.HVNA 10:11
PROVIDERS: Visit Provider Internal Medicine
DX: Z79.899 Other long term (current) drug therapy (principal)
CPT/HCPCS: 36415; 80048; 80202

== ENCOUNTER 2022-10-20 12:40 | Emergency (ER) | payer MEDICAID, SELFPAY ==
--- NOTE | 2022-10-20 14:09 | MHC.CM.ED ---
Received telephone call from Demetria at [facility]. Patient is currently in the ER. Patient was discharged from [facility] on 10/07 with [facility]. Patient was sent to the ER by the PCP. [facility] has some safety issues about returning to patient's home for visits due to suspected drug activity in the building. Patient currently has a PICC and is receiving IV Vanco. Continue to monitor for d/c needs.
[2022-10-20 15:05] VITALS: BP 115/64; PULSE 75; RESP 16; TEMP 36.4; O2SAT 99; BMI 31.0
--- NOTE | 2022-10-20 15:24 | ED.GENADULT ---
HPI - General Adult General Chief complaint: General Medical Stated complaint: sent by Dr to get labs done Time Seen by Provider: 10/20/22 20:37 Related Data Home Medications Medication Instructions Recorded Confirmed aspirin 81 mg tablet,delayed 81 mg PO DAILY@1700 10/03/20 10/01/22 release (Adult Aspirin Regimen) clopidogrel 75 mg tablet 75 mg PO DAILY@0730 10/03/20 10/01/22 digoxin 125 mcg (0.125 mg) tablet 125 mcg PO MOWEFR@0730 10/03/20 10/01/22 isosorbide mononitrate 30 mg 30 mg PO DAILY@0730 10/03/20 10/01/22 tablet,extended release 24 hr lisinopril 10 mg tablet 10 mg PO DAILY@0730 10/03/20 10/01/22 pantoprazole 40 mg tablet,delayed 40 mg PO DAILY@30 10/03/20 10/01/22 release spironolactone 25 mg tablet 25 mg PO DAILY@0730 10/03/20 10/01/22 torsemide 20 mg tablet 60 mg PO BID 10/03/20 10/01/22 bempedoic acid 180 mg tablet 180 mg PO DAILY@0730 10/01/22 10/01/22 (Nexletol) doxepin 10 mg capsule 10 mg PO BEDTIME 10/01/22 10/01/22 ezetimibe 10 mg tablet 10 mg PO DAILY@30 10/01/22 10/01/22 fluoxetine 20 mg capsule 20 mg PO DAILY@0730 10/01/22 10/01/22 fluticasone 250 mcg-salmeterol 50 1 puff inhalation BID 10/01/22 10/01/22 mcg/dose blistr powdr for inhalation (Advair Diskus) fluticasone propionate 50 1 - 2 spray intranasal DAILY PRN 10/01/22 10/01/22 mcg/actuation nasal Congestion spray,suspension gabapentin 100 mg capsule 200 mg PO TID 10/01/22 10/01/22 insulin lispro 100 unit/mL See Rx Instructions .Route .COMPLEX 10/01/22 10/01/22 subcutaneous solution (Humalog U-100 Insulin) lamotrigine 100 mg tablet 100 mg PO BEDTIME 10/01/22 10/01/22 lisinopril 5 mg tablet 5 mg PO DAILY@1200 10/01/22 10/01/22 melatonin 5 mg tablet 5 mg PO BEDTIME 10/01/22 10/01/22 Previous Rx's Medication Instructions Recorded omalizumab 150 mg subcutaneous 300 mg subcut Q2W 28 days #4 ea 07/05/22 solution (Xolair) insulin glargine 100 unit/mL (3 50 unit (0.5 mL) subcut DAILY #15 08/25/22 mL) subcutaneous pen (Lantus mL Solostar U-100 Insulin) ferrous gluconate 324 mg (38 mg 324 mg PO DAILY@1200,1700 #1 tab 10/05/22 iron) tablet vancomycin 750 mg intravenous 750 mg IV Q12H #1 ea 10/07/22 solution daptomycin 500 mg intravenous 500 mg IV Q24H 42 days #42 ea 10/22/22 solution Allergies Allergy/AdvReac Type Severity Reaction Status Date / Time sulfamethoxazole Allergy Severe FACIAL Verified 07/13/22 10:40 [From BACTRIM] SWELLING trimethoprim [From BACTRIM] Allergy Severe FACIAL Verified 07/13/22 10:40 SWELLING levofloxacin [From LEVAQUIN] Allergy Intermediate REDNESS, Verified 07/13/22 10:40 SWELLING ITCHINESS AT IV SITE PMFSH Past Medical History Medical History Anxiety Asthma CAD (coronary artery disease) Depression DM2 (diabetes mellitus, type 2) Essential hypertension Hyperlipidemia LDL goal <100 Obesity due to excess calories DEVYN (obstructive sleep apnea) Osteomyelitis Proteinuria Retinopathy Type 2 diabetes mellitus with diabetic polyneuropathy Type 2 diabetes mellitus with hyperglycemia, with long-term current use of insulin Type 2 diabetes mellitus with other diabetic kidney complication Wound of left foot Surgical History Hx of coronary artery bypass surgery Family History Family History Maternal Grandmother Diabetes Brother Diabetes Social History Social History Household Members: Family Household Members Other:: 1 Housing: Apartment Alcohol intake: never Patient Tobacco Use Status: Never used Tobacco Second Hand Smoke Exposure: No Advance Directives: No service: No Current occupational status: unemployed Physical Exam ED Vital Signs: Vital Signs - 24 hr 10/20/22 15:05 Temperature 97.6 F Pulse Rate 75 Respiratory Rate 16 Blood Pressure 115/64 Pulse Oximetry 99 Oxygen Delivery Method Room Air BMI result Body Mass Index 31.0 Course Course Course Narrative: 47-year-old left foot osteomyelitis who is referred to the emergency department by her Infectious Disease doctor, for blood work and 2 change her antibiotic regimen. Patient has a left foot ulcer with cellulitis and is being treated with antibiotics through PICC line her infectious disease doctor wants to change her to daptomycin. I ordered CBC, CMP, ESR, CRP, blood cultures x2. Patient will need to be brought back into the emergency department to receive her dose of daptomycin. Medical Decision Making Lab Data Result diagrams: 10/20/22 16:29 10/20/22 16:29 Labs: Lab Results 10/20/22 10/20/22 10/20/22 Range/Units 16:29 16:29 16:29 WBC 7.1 (4.8-10.8) X10*3/uL RBC 3.36 L (4.20-5.50) X10*6/uL Hgb 9.7 L (12.0-16.0) g/dl Hct 30.5 L (37.0-47.0) % MCV 90.8 (80.0-98.0) fL MCH 28.9 (27.0-33.0) pg MCHC 31.8 (31.0-35.0) g/dl RDW 13.1 (11.0-16.0) % Plt Count 331 (160-400) X10*3/uL MPV 10.4 (9.4-12.3) fL Immature Gran % (Auto) 0.3 (0.0-0.4) % Neut % (Auto) 63.5 (45-73) % Lymph % (Auto) 19.7 L (20-40) % Bowie % (Auto) 5.7 (2-11) % Eos % (Auto) 10.2 H (0-4) % Baso % (Auto) 0.6 (0-2) % Lymph # (Auto) 1.4 (1.2-4.9) X10*3/uL Bowie # (Auto) 0.4 (0.1-1.2) X10*3/uL Eos # (Auto) 0.7 H (0.0-0.4) X10*3/uL Baso # (Auto) 0.0 (0.0-0.2) X10*3/uL Abs Immat Gran (auto) 0.02 (0.00-0.03) X10*3/uL Absolute Neuts (auto) 4.5 (2.0-8.3) x10*3/uL Absolute Nucleated RBC 0.000 (0.0-0.012) X10*3/uL Nucleated RBC % (auto) 0.0 (0.0-0.2) /100WBC ESR 102 H (0-20) MM/HR PT 11.7 (10.0-13.1) SEC INR 1.0 (0.9-1.1) APTT 32.6 (26.0-36.4) SEC Sodium (135-145) mmol/L Potassium (3.3-5.1) mmol/L Chloride (96-108) mmol/L Carbon Dioxide (22-29) mmol/L Anion Gap (12-20) BUN (9-16) mg/dL Creatinine (0.5-1.4) mg/dL Estim Creat Clear Calc Estimated GFR Random Glucose (60-115) mg/dL Calcium (8.4-10.2) mg/dL Total Bilirubin (0.0-1.0) mg/dL AST (5-31) U/L ALT (0-31) U/L Alkaline Phosphatase (39-117) U/L C-Reactive Protein (< or = 0.50) mg/dL Total Protein (6.5-8.0) g/dL Albumin (3.5-5.0) g/dL 10/20/22 Range/Units 16:29 WBC (4.8-10.8) X10*3/uL RBC (4.20-5.50) X10*6/uL Hgb (12.0-16.0) g/dl Hct (37.0-47.0) % MCV (80.0-98.0) fL MCH (27.0-33.0) pg MCHC (31.0-35.0) g/dl RDW (11.0-16.0) % Plt Count (160-400) X10*3/uL MPV (9.4-12.3) fL Immature Gran % (Auto) (0.0-0.4) % Neut % (Auto) (45-73) % Lymph % (Auto) (20-40) % Bowie % (Auto) (2-11) % Eos % (Auto) (0-4) % Baso % (Auto) (0-2) % Lymph # (Auto) (1.2-4.9) X10*3/uL Bowie # (Auto) (0.1-1.2) X10*3/uL Eos # (Auto) (0.0-0.4) X10*3/uL Baso # (Auto) (0.0-0.2) X10*3/uL Abs Immat Gran (auto) (0.00-0.03) X10*3/uL Absolute Neuts (auto) (2.0-8.3) x10*3/uL Absolute Nucleated RBC (0.0-0.012) X10*3/uL Nucleated RBC % (auto) (0.0-0.2) /100WBC ESR (0-20) MM/HR PT (10.0-13.1) SEC INR (0.9-1.1) APTT (26.0-36.4) SEC Sodium 133 L (135-145) mmol/L Potassium 4.4 (3.3-5.1) mmol/L Chloride 96 (96-108) mmol/L Carbon Dioxide 27 (22-29) mmol/L Anion Gap 14 (12-20) BUN 29 H (9-16) mg/dL Creatinine 2.54 H (0.5-1.4) mg/dL Estim Creat Clear Calc 30.8 Estimated GFR 20 Random Glucose 436 H* (60-115) mg/dL Calcium 9.5 (8.4-10.2) mg/dL Total Bilirubin 0.3 (0.0-1.0) mg/dL AST 12 (5-31) U/L ALT 19 (0-31) U/L Alkaline Phosphatase 121 H (39-117) U/L C-Reactive Protein 1.88 H (< or = 0.50) mg/dL Total Protein 7.8 (6.5-8.0) g/dL Albumin 4.1 (3.5-5.0) g/dL Discharge Plan Discharge Clinical Impression: Infection of left foot Patient Disposition: Elopement Prescriptions: No Action Xolair 150 mg recon soln 300 mg subcut Q2W 28 Days Qty: 4 12RF Rx Instructions: requires multiple injection sites; do not exceed 150 mg per injection site Lantus Solostar U-100 Insulin 100 unit/mL (3 mL) insulin pen 50 unit subcut DAILY Qty: 15 3RF daptomycin 500 mg recon soln 500 mg IV Q24H 42 Days Qty: 42 0RF Rx Instructions: administer over 30 mins fluticasone propion-salmeterol [Advair Diskus] 250-50 mcg/dose blister with device 1 puff inhalation BID doxepin 10 mg capsule 10 mg PO BEDTIME lisinopril 5 mg tablet 5 mg PO DAILY@1200 Rx Instructions: TO BE TAKEN AT 1200 gabapentin 100 mg capsule 200 mg PO TID fluoxetine 20 mg capsule 20 mg PO DAILY@0730 fluticasone propionate 50 mcg/actuation spray,suspension 1 - 2 spray intranasal DAILY PRN (Reason: Congestion) lamotrigine 100 mg tablet 100 mg PO BEDTIME melatonin 5 mg tablet 5 mg PO BEDTIME Nexletol 180 mg tablet 180 mg PO DAILY@0730 insulin lispro [Humalog U-100 Insulin] 100 unit/mL solution See Rx Instructions .ROUTE .COMPLEX Rx Instructions: up to 150 units subcut daily via pump; ezetimibe 10 mg tablet 10 mg PO DAILY@0730 ferrous gluconate 324 mg (38 mg iron) tablet 324 mg PO DAILY@1200,1700 Qty: 1 0RF vancomycin 750 mg recon soln 750 mg IV Q12H Qty: 1 0RF spironolactone 25 mg tablet 25 mg PO DAILY@0730 torsemide 20 mg tablet 60 mg PO BID pantoprazole 40 mg tablet,delayed release (DR/EC) 40 mg PO DAILY@0730 aspirin [Adult Aspirin Regimen] 81 mg tablet,delayed release (DR/EC) 81 mg PO DAILY@1700 clopidogrel 75 mg tablet 75 mg PO DAILY@0730 isosorbide mononitrate 30 mg tablet extended release 24 hr 30 mg PO DAILY@0730 digoxin 125 mcg (0.125 mg) tablet 125 mcg PO MOWEFR@729 lisinopril 10 mg tablet 10 mg PO DAILY@729 Interventions: ED Discharge Assessment Last Done: 10/20/22 22:11 Discharge Date/Time: 10/20/22 22:13
[2022-10-20 16:37] LABS: MANUAL DIFF FLAG NO
[2022-10-20 16:42] LABS: Basophils Percent Auto 0.6 % (0-2); Eosinophils Absolute Auto 0.7 X10*3/uL (0.0-0.4); Eosinophils Percent Auto 10.2 % (0-4); Hematocrit 30.5 % (37.0-47.0); Hemoglobin 9.7 g/dl (12.0-16.0); Imm Gran Abs Auto 0.02 X10*3/uL (0.00-0.03); Imm Gran Pct Auto 0.3 % (0.0-0.4); Lymphocytes Absolute Auto 1.4 X10*3/uL (1.2-4.9); Lymphocytes Percent Auto 19.7 % (20-40); Mean Corpuscular HGB Conc 31.8 g/dl (31.0-35.0); Mean Corpuscular Hemoglobin 28.9 pg (27.0-33.0); Mean Corpuscular Volume 90.8 fL (80.0-98.0); Mean Platelet Volume 10.4 fL (9.4-12.3); Monocytes Absolute Auto 0.4 X10*3/uL (0.1-1.2); Monocytes Percent Auto 5.7 % (2-11); Neutrophils Absolute Auto 4.5 x10*3/uL (2.0-8.3); Neutrophils Percent Auto 63.5 % (45-73); Platelet Count 331 X10*3/uL (160-400); Prothrombin Time 11.7 SEC (10.0-13.1); Red Blood Count 3.36 X10*6/uL (4.20-5.50); Red Cell Distribution Width 13.1 % (11.0-16.0); White Blood Count 7.1 X10*3/uL (4.8-10.8)
[2022-10-20 16:45] LABS: Partial Thromboplastin Time 32.6 SEC (26.0-36.4)
[2022-10-20 17:17] LABS: Alanine Aminotransferase 19 U/L (0-31); Albumin Level 4.1 g/dL (3.5-5.0); Alkaline Phosphatase 121 U/L (39-117); Anion Gap 14 (12-20); Aspartate Amino Transferase 12 U/L (5-31); Bilirubin Total 0.3 mg/dL (0.0-1.0); Blood Urea Nitrogen 29 mg/dL (9-16); C Reactive Protein 1.88 mg/dL (< or = 0.50); Calcium 9.5 mg/dL (8.4-10.2); Carbon Dioxide 27 mmol/L (22-29); Chloride 96 mmol/L (96-108); Creatinine Clr Calc Pharmacy 30.8; Estimated Glomerular Filt Rate 20; Glucose Random 436 mg/dL (60-115); Potassium 4.4 mmol/L (3.3-5.1); Sodium 133 mmol/L (135-145); Total Protein 7.8 g/dL (6.5-8.0)
[2022-10-20 17:50] LABS: Erythrocyte Sedimentation Rate 102 MM/HR (0-20)
--- OUTSIDE RECORDS SUMMARY | 2022-10-20 20:32 | XMS_ITS | Continuity of Care Document ---
:1975 Author Organization [facility] Address [address] [place] [address]- Care Team Providers Name Role Phone Karlee REBOLLEDO, Yolie Ford Primary Care Physician Encounter [facility] R [id number] Date(s): 12/02/20 - 01/17/21 [facility] [address] [place], [place] [address] Attending Physician: Bill BERTRAND, Irma Santos Admitting Physician: Bill BERTRAND, Irma Santos Referring Physician: Bill BERTRAND, Irma Santos Allergies, Adverse Reactions, Alerts Substance Reaction Severity Status sulfamethoxazole Active Levaquin itchy Active metOLazone1 itching, lip swell Active Bactrim facial swelling Active trimethoprim Sulfamethoxazole Active Other Environmental Allergy2 Act hever 1itching, lip [id number] and cockroahes thru allergy testing Immunizations Not Given Vaccine Date Status Refusal Reason pneumococcal 23-valent vaccine 03/08/16 Not Given P atient Refuses Medications acetaminophen 325 mg oral tablet 650 mg, By Mouth, Every 4 hours, greater than 101F or Mild Pain, Refills 0, Maintenance, 02/24/16 16:22:03 Start Date: 02/24/16 Status: Orderedaspirin 81 mg oral delayed release tablet See Instructions, Please contact PCP or patient for name of new shellfish checker. 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 Refills 0, Maintenance, 04/26/19 7:57:16 EDT, Instructions Replace Required Details, Route to Pharmacy E... Start Date: 04/26/19 Status: Orderedcarvedilol 6.25 mg oral tablet 6.25 mg, 1, tablet, By Mouth, 2 times a day, # 60 tablet, Refills 0, Maintenance, 09/16/17 9:15:46 Start Date: 09/16/17 Status: OrderedCPAP Machine See Instructions, # 1 each, Maintenance, AutoCPAP 7-14, 03/10/17 17:26:35, Compound Start Date: 03/10/17 Status: Ordereddiabetic shoes diabetic shoes, See Instructions, # 1 pair, Refills 0, Tot. Refills 0, Maintenance, use daily dx diabetes foot pain, 08/22/17 9:44:43, Compound Start Date: 08/22/17 Status: Ordereddigoxin 0.125 mg oral tablet 125 mcg, 1, tablet, By Mouth, Every Tuesday, Tuesday and Tuesday, appt needed prior to future refills, # 6 tablet, Refills 0, Tot. Refills 0, Maintenance, 10/11/19 14:00:36 EST, Route to Pharmacy Electronically, [id number], ... Start Date: 10/11/19 Stop Date: 10/25/19 Status: OrderedFerrous Gluconate = 324 mg, By Mouth, 2 times a day, 0 Refills, Maintenance, 03/23/17 9:09:21 EDT Start Date: 03/23/17 Status: Orderedfreestyle Whitney CGM reader freestyle Whitney CGM reader, See Instructions, # 1 application, Refills 0, Tot. Refills 0, Maintenance, check BG 4x daily, 11/17/17 9:58:32, Compound Start Date: 11/17/17 Status: Orderedfreestyle whitney CGM sensors freestyle whitney CGM sensors, See Instructions, # 3 application, Refills 5, Tot. Refills 5, Maintenance, check 4 x daily for DM 2, 11/17/17 9:57:13, Compound Start Date: 11/17/17 Status: Orderedgabapentin 100 mg oral capsule 200 mg, 2, capsule, By Mouth, 3 times a day, appt needed prior to future refills, # 84 capsule, Refills 0, Tot. Refills 0, Maintenance, 10/11/19 14:00:03 EST, Route to Pharmacy Electronically, [id number], [facility]... Start Date: 10/11/19 Stop Date: 10/25/19 Status: Orderedglucose 4 gm oral tablet, chewable = 20 Gm, By Mouth, Every 15 minutes, PRN Blood Glucose, Repeat POC in 15 minutes. If POC less than (<) 70 repeat the 20 Gm dose and recheck in 15 minutes., # 50 tablet, 0 Refills, Maintenance, 02/24/16 16:23:34, Chew Tablet Start Date: 02/24/16 Status: OrderedHumalog Cartridge Subcutaneous Infusion, Insulin Pump, 0 Refills, Maintenance, 09/04/19 10:01:33 EDT Start Date: 09/04/19 Status: Orderedinsulin glargine 100 u/ml subcutaneous solution = 60 units, Subcutaneous Injection, 2 times a day, # 10 mL, 0 Refills, Maintenance, 03/11/16 16:27:01, Injection Start Date: 03/11/16 Stop Date: 04/10/16 Status: Orderedinsulin lispro 100 u/ml subcutaneous injection 10-20 units, Subcutaneous Injection, 3 times a day before meals, << Sliding Scale Comments >> 100 - 149 10 units Call if less than 70 150 - 199 12 units 200 - 249 14 units 250 - 299 16 units 300 - 349 18 units 350 - 399 20 units... Start Date: 03/11/16 Stop Date: 04/10/16 Status: Orderedisosorbide mononitrate 30 mg oral tablet, extended release 30 mg, 1, tablet, By Mouth, Daily in AM, # 30 tablet, Refills 0, Maintenance, 05/14/19 11:54:53 EDT Start Date: 05/14/19 Status: OrderedLamotrigine By Mouth, Daily at bedtime, Refills 0, Maintenance, 09/04/19 10:22:28 EDT Start Date: 09/04/19 Status: Orderedlisinopril 10 mg oral tablet 10 mg, 1, tablet, By Mouth, Daily at supper, Refills 0, Maintenance, 09/04/19 9:48:22 EDT Start Date: 09/04/19 Status: OrderedMelatonin 5 mg oral tablet 1 tablet = 5 mg, By Mouth, Daily at bedtime, PRN for insomnia, # 60 tablet, 0 Refills, Maintenance, 05/14/19 11:54:05 EDT, Tablet Start Date: 05/14/19 Status: Orderedmirtazapine 15 mg oral tablet 1 tablet = 15 mg, By Mouth, Daily at bedtime, # 30 tablet, 0 Refills, Maintenance, 05/14/19 11:49:43EDT, Tablet Start Date: 05/14/19 Status: OrderedPlavix 75 mg oral tablet 75 mg, 1, tablet, By Mouth, Daily in AM, # 90 tablet, Refills 1, Tot. Refills 1, Maintenance, 08/24/17 13:15:32, Route to Pharmacy Electronically, [id number], [facility] Start Date: 08/24/17 Stop Date: 02/20/18 Status: OrderedProAir HFA 90 mcg/inh inhalation aerosol with adapter 1, puffs, Inhalation, Every 4 hours, PRN, # 8.5 Gm, Refills 0, Maintenance, 07/14/16 8:33:30, Aerosol Start Date: 07/14/16 Status: OrderedProtonix 40 mg oral delayed release tablet 40 mg, 1, tablet, By Mouth, Daily, # 30 tablet, Refills 6, Tot. Refills 6, Maintenance, 12/28/16 13:36:46, Route to Pharmacy Electronically, [id number], [facility] Start Date: 12/28/16 Stop Date: 07/26/17 Status: Orderedrosuvastatin 40 mg oral tablet 1 tablet = 40 mg, By Mouth, Daily, # 30 tablet, 0 Refills, Maintenance, 05/14/19 11:50:13 EDT, Tablet Start Date: 05/14/19 Status: Orderedsertraline 100 mg oral tablet 1 tablet = 100 mg, By Mouth, Daily, # 30 tablet, 0 Refills, Maintenance, 09/16/17 9:14:39, Tablet Start Date: 09/16/17 Status: Orderedspironolactone 25 mg oral tablet 25 mg, 1, tablet, By Mouth, Daily, # 30 tablet, Refills 11, Tot. Refills 11, Maintenance, 04/17/20 13:38:00 EDT, Route to Pharmacy Electronically, [facility], 170.18, cm, 10/16/19 16:13:00 EST, Height, 90.4, kg, 09/04/19 10:33:00 E... Start Date: 04/17/20 Status: Orderedtorsemide 20 mg oral tablet 3 tablets, By Mouth, 3 tablets in the PM, the, # 90 tablet, 0 Refills, Maintenance, 05/14/19 11:52:17 EDT, Tablet Start Date: 05/14/19 Status: OrderedTresiba FlexTouch 200 units/mL subcutaneous solution = 140 units, Subcutaneous Infusion, Daily, # 9 application, 5 Refills, Maintenance, 11/17/17 9:53:35 Start Date: 11/17/17 Stop Date: 05/16/18 Status: OrderedTrulicity Pen 0.75 mg/0.5 mL subcutaneous solution 0.5 mL = 0.75 mg, Subcutaneous Injection, Every week, # 4 application, 5 Refills, Maintenance, 11/17/17 9:53:27, Solution Start Date: 11/17/17 Stop Date: 05/16/18 Status: Ordered Problem List Condition Effective Dates Status Health Status Informant NSTEMI (non-ST elevated myocardial 01/19/16 Active infarction)(Confirmed) Systolic CHF, acute on Active chronic(Confirmed) Asthma(Confirmed) Active Acute decompensated heart Active failure(Confirmed) CAD (coronary artery Active disease)(Confirmed) Depression(Confirmed) Active DM (diabetes mellitus), Active insulin(Confirmed) Peripheral neuropathy(Confirmed) Active Hypotension due to drugs(Confirmed) Active SOB (shortness of breath)(Confirmed) Active Ex-smoker, quit 2013(Confirmed) Active HLD (hyperlipidemia)(Confirmed) Active HTN (hypertension)(Confirmed) Active Pleural effusion, right(Confirmed) Active left lower lobe Pneumonia(Confirmed) 01/19/16 Active Systolic heart failure(Confirmed) Active Social History Social History Type Response Smoking Status Former smoker; Tobacco user in household: No entered on: 06/20/17 Sex Female
--- OUTSIDE RECORDS SUMMARY | 2022-10-20 20:32 | XMS_ITS | Continuity of Care Document ---
:1975 Author Organization [facility] Address [address] [place] [id number]- Care Team Providers Name Role Phone Karlee REBOLLEDO, Yolie Ford Primary Care Physician Encounter [facility] Date(s): 04/10/21 - 05/18/[address] [address] Attending Physician: Bill BERTRAND, Irma Santos Admitting Physician: Bill BERTRAND, Irma Santos Referring Physician: Natalie Khan MD Allergies, Adverse Reactions, Alerts Substance Reaction Severity Status sulfamethoxazole Active Levaquin itchy Active Bactrim facial swelling Active trimethoprim Sulfamethoxazole Active Other Environmental Allergy1 Act hever metOLazone2 itching, lip swell Active 1Fungus and cockroahes thru allergy [id number], lip swelling Immunizations Not Given Vaccine Date Status Refusal Reason pneumococcal 23-valent vaccine 03/08/16 Not Given P atient Refuses Medications acetaminophen 325 mg oral tablet 650 mg, By Mouth, Every 4 hours, greater than 101F or Mild Pain, Refills 0, Maintenance, 02/24/16 16:22:03 Start Date: 02/24/16 Status: Orderedaspirin 81 mg oral delayed release tablet See Instructions, Please contact PCP or patient for name of new kennel aide. 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 Refills 0, Maintenance, 04/26/19 7:57:16 EDT, Instructions Replace Required Details, Route to Pharmacy E... Start Date: 04/26/19 Status: OrderedCAM boot CAM boot, See Instructions, # 1 each, Refills 0, Tot. Refills 0, Maintenance, katie 99, 04/22/21 14:08:00 EDT, Supply Start Date: 04/22/21 Status: Orderedcarvedilol 6.25 mg oral tablet 6.25 [...] 10/11/19 14:00:36 EST, Route to Pharmacy Electronically, [id number], [facility]... Start Date: 10/11/19 Stop Date: 10/25/19 Status: OrderedFerrous Gluconate = 324 mg, By Mouth, 2 times a day, 0 Refills, Maintenance, 03/23/17 9:09:21 EDT Start Date: 03/23/17 Status: Orderedfreestyle Whitney CGM reader freestGenterpret Whitney CGM reader, See Instructions, # 1 [...] 10/11/19 14:00:03 EST, Route to Pharmacy Electronically, [id number], [facility]... Start Date: 10/11/19 Stop Date: 10/25/19 Status: [...] Maintenance, 08/24/17 13:15:32, Route to Pharmacy Electronically, [id number], [facility] - Start Date: 08/24/17 Stop Date: 02/20/18 Status: [...] Maintenance, 12/28/16 13:36:46, Route to Pharmacy Electronically, [id number], [facility] Start Date: 12/28/16 Stop Date: 07/26/17 Status: [...] By Mouth, Daily, # 30 tablet, Refills 2, Tot. Refills 2, Maintenance, 04/06/21 16:26:00 EDT, Route to Pharmacy Electronically, [facility], 170.18, cm, 10/16/19 16:13:00 EST, Height, 93.7, kg, 09/15/20 7:00:00 EDT,... Start Date: 04/06/21 Status: Orderedtorsemide 20 mg oral tablet 3 [...]
--- OUTSIDE RECORDS SUMMARY | 2022-10-20 20:32 | XMS_ITS | Continuity of Care Document ---
:1975 Author Organization [facility] Address [address] [place] [phone]- Care Team Providers Name Role Phone Karlee REBOLLEDO, Yolie Ford Primary Care Physician Encounter [facility] Date(s): 05/21/21 - 06/20/21 [facility] [address] [place] [id number]- Attending Physician: Asya Redd Admitting Physician: AdmtrAsya Referring Physician: Admtr, Ar8 Allergies, Adverse Reactions, Alerts Substance Reaction Severity Status sulfamethoxazole Active Levaquin itchy Active trimethoprim Sulfamethoxazole Active metOLazone1 itching, lip swell Active Bactrim facial swelling Active Other Environmental Allergy2 Act hever 1itching, lip [id number] and cockroahes thru allergy testing Immunizations Not [...] PCP or patient for name of new spring fitter helper. Pt no longer comes to our office., [...] 10/11/19 14:00:36 EST, Route to Pharmacy Electronically, [id number], [facility]... Start Date: 10/11/19 Stop Date: 10/25/19 [...] 10/11/19 14:00:03 EST, Route to Pharmacy Electronically, [id number], [facility]... Start Date: 10/11/19 Stop Date: 10/25/19 Status: [...] Maintenance, 08/24/17 13:15:32, Route to Pharmacy Electronically, [id number], [facility] - Start Date: 08/24/17 Stop Date: [...] Maintenance, 12/28/16 13:36:46, Route to Pharmacy Electronically, [id number], [facility] Start Date: 12/28/16 Stop Date: 07/26/17 [...] 04/06/21 16:26:00 EDT, Route to Pharmacy Electronically, [facility], 170.18, cm, 10/16/19 16:13:00 EST, Height, [...]
--- OUTSIDE RECORDS SUMMARY | 2022-10-20 20:33 | XMS_ITS | Continuity of Care Document ---
:1975 Author Organization Wound Care Address [address] [place] [address]- Care Team Providers Name Role Phone Karlee REBOLLEDO, Yolie Ford Primary Care Physician [phone] Encounter [facility] [place] Date(s): 02/15/22 - 03/17/22 Wound Care [address] [place] [address]- Attending Physician: Asya Redd Admitting Physician: AdmtrAsya Referring Physician: Admtr Ar8 Allergies, Adverse Reactions, Alerts Substance Reaction Severity Status sulfamethoxazole Active Levaquin itchy Active Bactrim facial swelling Active trimethoprim Sulfamethoxazole Active Other Environmental Allergy1 Act hever metOLazone2 itching, lip swell Active 1Fungus and cockroahes thru allergy [id number], lip swelling Immunizations Not Given Vaccine Date [...] 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 Refills 0, Maintenance, 04/26/19 7:57:16 EDT, Instructions Replace Required Details, Route to Pharmacy E... Start Date: 04/26/19 Status: Orderedazelastine nasal 0.15% spray 1 sprays, Nares, Both, 2 times a day, PRN for allergy symptoms, Maintenance, 01/20/22 20:30:00 EST, [place] Start Date: 01/20/22 Status: OrderedCAM boot CAM boot, See Instructions, [...] 10/11/19 14:00:36 EST, Route to Pharmacy Electronically, [id number], H... Start Date: 10/11/19 Stop Date: 10/25/19 Status: Ordereddoxepin 10 mg oral capsule See Instructions, 1 capsule By Mouth every day at bedtime, 0 Refills, Maintenance, 01/20/22 16:59:00EST Start Date: 01/20/22 Status: Orderedezetimibe 10 mg oral tablet 1 tablet = 10 mg, By Mouth, Daily, Maintenance, Tablet Start Date: 01/20/22 Status: OrderedFerrous Gluconate = 324 mg, By Mouth, 2 times a day, 0 Refills, Maintenance, 03/23/17 9:09:21 EDT Start Date: 03/23/17 Status: OrderedFlonase 50 mcg/inh nasal spray 1 sprays, Nares, Both, 2 times a day, Maintenance, 01/20/22 20:30:00 EST, [place] Start Date: 01/20/22 Status: OrderedFlovent HFA 220 mcg/inh inhalation aerosol 1 puffs, Inhalation, 2 times a day, Maintenance, Aerosol Start Date: 01/20/22 Status: OrderedFLUoxetine 20 mg oral capsule 20 mg, 1, capsule, By Mouth, Daily, Maintenance Start Date: 01/20/22 Status: Orderedfreestyle Whitney CGM reader freestyle Whitney [...] 10/11/19 14:00:03 EST, Route to Pharmacy Electronically, [id number], [facility]... Start Date: 10/11/19 Stop Date: 10/25/19 Status: Orderedglucose 4 gm oral tablet, chewable = 20 Gm, By Mouth, Every 15 minutes, PRN Blood Glucose, Repeat POC in 15 minutes. If POC less than (<) 70 repeat the 20 Gm dose and recheck in 15 minutes., # 50 tablet, 0 Refills, Maintenance, 02/24/16 16:23:34, Chew Tablet Start Date: 02/24/16 Status: OrderedHumalog 100 u/ml subcutaneous injection See Instructions, Use up to 150 units daily with insulin pump, 0 Refills, Maintenance Start Date: 01/20/22 Status: OrderedHumalog Cartridge Subcutaneous Infusion, Insulin Pump, 0 Refills, Maintenance, 09/04/19 10:01:33 EDT Start Date: 09/04/19 Status: Orderedisosorbide mononitrate 30 mg oral tablet, extended release 30 mg, 1, tablet, By Mouth, Daily in AM, # 30 tablet, Refills 0, Maintenance, 05/14/19 11:54:53 EDT Start Date: 05/14/19 Status: OrderedLamotrigine 100 mg, By Mouth, Daily, Refills 0, Maintenance, 09/04/19 10:22:28 EDT Start Date: 09/04/19 Status: Orderedlisinopril 10 mg oral tablet See Instructions, Take 1.5 tab by mouth daily, Refills 0, Maintenance, 09/04/19 9:48:22 EDT, Instructions Replace Required Details Start Date: 09/04/19 Status: Orderedloratadine 10 mg oral tablet 10 mg, 1, tablet, By Mouth, Daily, Maintenance Start Date: 01/20/22 Status: OrderedMelatonin 5 mg oral tablet 1 tablet = 5 mg, By Mouth, Daily at bedtime, PRN for insomnia, # 60 tablet, 0 Refills, Maintenance, 05/14/19 11:54:05 EDT, Tablet Start Date: 05/14/19 Status: OrderedPlavix 75 mg oral tablet 75 mg, 1, tablet, By Mouth, Daily in AM, # 90 tablet, Refills 1, Tot. Refills 1, Maintenance, 08/24/17 13:15:32, Route to Pharmacy Electronically, [id number], [facility] - Start Date: 08/24/17 Stop Date: [...] Maintenance, 12/28/16 13:36:46, Route to Pharmacy Electronically, [id number], [facility] Start Date: 12/28/16 Stop Date: 07/26/17 Status: Orderedrosuvastatin 40 mg oral tablet 1 tablet = 40 mg, By Mouth, Daily, # 30 tablet, 0 Refills, Maintenance, 05/14/19 11:50:13 EDT, Tablet Start Date: 05/14/19 Status: Orderedspironolactone 25 mg oral tablet 25 mg, 1, tablet, By Mouth, Daily, Please call office to schedule and appt. [phone], # 30 tablet, Refills 1, Tot. Refills 1, Maintenance, 07/28/21 14:31:00 EDT, Route to Pharmacy Electronically, [facility], 170.18, cm, ... Start Date: 07/28/21 Stop Date: 09/26/21 Status: Orderedtorsemide 20 mg oral tablet 3 tablets, By Mouth, 3 tablets by mouth BID, 0 Refills, Maintenance, 05/14/19 11:52:17 EDT, Tablet Start Date: 05/14/19 Status: OrderedTrulicity Pen 0.75 mg/0.5 mL subcutaneous solution 0.5 mL = 0.75 mg, Subcutaneous Injection, Every week, # 4 application, 5 Refills, Maintenance, 11/17/17 9:53:27, Solution Start Date: 11/17/17 Stop Date: 05/16/18 Status: Ordered Problem List Condition Effective Dates Status Health Status Informant NSTEMI (non-ST elevated myocardial 01/19/16 Active infarction)(Confirmed) Non-seasonal allergic Active rhinitis(Confirmed) Asthma(Confirmed) Active Blindness of both eyes(Confirmed) Active CKD (chronic kidney disease), stage Active III(Confirmed) Acute decompensated heart Active failure(Confirmed) CAD (coronary artery Active disease)(Confirmed) Depression(Confirmed) Active DM (diabetes mellitus), Active insulin(Confirmed) Peripheral neuropathy(Confirmed) Active Hypotension due to drugs(Confirmed) Active SOB (shortness of breath)(Confirmed) Active Ex-smoker, quit 2013(Confirmed) Active JAGDISH (generalized anxiety Active disorder)(Confirmed) HLD (hyperlipidemia)(Confirmed) Active HTN (hypertension)(Confirmed) Active Ischemic cardiomyopathy(Confirmed) Active Microalbuminuria(Confirmed) Active Diabetic neuropathy(Confirmed) Active Obesity(Confirmed) Active Obstructive sleep apnea(Confirmed) Active Hip osteoarthritis(Confirmed) Active Pleural effusion, right(Confirmed) Active Systolic heart failure(Confirmed) Active Social History Social History Type Response Smoking Status Former smoker; Tobacco user in household: No entered on: 06/20/17 Sex Female
--- OUTSIDE RECORDS SUMMARY | 2022-10-20 20:33 | XMS_ITS | Continuity of Care Document ---
:1975 Author Organization Wound Care Address [address] [place] [address]- Care Team Providers Name Role Phone Yolie Desir MD Primary Care Physician Encounter [facility] Date(s): 09/25/21 - 10/31/21 Wound Care [address] [place] [address] Attending Physician: Jose Alejandro Webber MD Admitting Physician: Jose Alejandro Webber MD Referring Physician: Yolie Desir MD Allergies, Adverse Reactions, Alerts Substance Reaction Severity Status sulfamethoxazole Active Levaquin itchy Active Bactrim facial swelling Active trimethoprim Sulfamethoxazole Active Other Environmental Allergy1 Act hever metOLazone2 itching, lip swell Active 1Fungus and cockroahes thru allergy [id number], lip swelling Immunizations Not Given Vaccine Date [...] 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 Pt no longer comes to our office., [...] 10/11/19 14:00:36 EST, Route to Pharmacy Electronically, [id number], H... Start Date: 10/11/19 Stop Date: 10/25/19 [...] 10/11/19 14:00:03 EST, Route to Pharmacy Electronically, [id number], [facility]... Start Date: 10/11/19 Stop Date: 10/25/19 [...] Maintenance, 08/24/17 13:15:32, Route to Pharmacy Electronically, [id number], [facility] Start Date: 08/24/17 Stop Date: 02/20/18 Status: [...] Maintenance, 12/28/16 13:36:46, Route to Pharmacy Electronically, [id number], [facility] Start Date: 12/28/16 Stop Date: [...] Please call office to schedule and appt. [phone], # 30 tablet, Refills 1, Tot. Refills 1, Maintenance, 07/28/21 14:31:00 EDT, Route to Pharmacy Electronically, [facility], 170.18, cm, ... Start Date: 07/28/21 [...]
--- OUTSIDE RECORDS SUMMARY | 2022-10-20 20:33 | XMS_ITS | Continuity of Care Document ---
:1975 Author Organization [facility] Address [address] [place] [address]- Care Team Providers Name Role Phone Karlee REBOLLEDO, Yolie Fodr Primary Care Physician Encounter [facility] [id number] Date(s): 03/11/20 - 06/13/20 [facility] [address] [place] [address]- 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 Pt no longer comes to our office., [...] 10/11/19 14:00:36 EST, Route to Pharmacy Electronically, [id number], ... Start Date: 10/11/19 Stop Date: 10/25/19 [...] 10/11/19 14:00:03 EST, Route to Pharmacy Electronically, [id number], [facility]... Start Date: 10/11/19 Stop Date: 10/25/19 [...] Maintenance, 08/24/17 13:15:32, Route to Pharmacy Electronically, [id number], [facility] - Start Date: 08/24/17 Stop [...] Maintenance, 12/28/16 13:36:46, Route to Pharmacy Electronically, [id number], [facility] Start Date: 12/28/16 Stop Date: [...] 04/17/20 13:38:00 EDT, Route to Pharmacy Electronically, [facility], 170.18, cm, 10/16/19 16:13:00 EST, [...]
--- OUTSIDE RECORDS SUMMARY | 2022-10-20 20:33 | XMS_ITS | Continuity of Care Document ---
:1975 Author Organization [facility] Address [address] [place] [address]- Care Team Providers Name Role Phone Karlee REBOLLEDO, Yolie Ford Primary Care Physician [phone] [place] [facility] [place] Date(s): 07/15/22 - 08/14/[address] [address] [place] [address] Attending Physician: Asya Redd Admitting Physician: Admtr, Asya Referring Physician: Admtr, Ar8 Allergies, Adverse Reactions, Alerts Substance Reaction Severity Status sulfamethoxazole Active Bactrim facial swelling Active trimethoprim Sulfamethoxazole Active Other Environmental Allergy1 Act hever metOLazone2 itching, lip swell Active Levaquin itchy Active 1Fungus and cockroahes thru allergy [id number], lip swelling Immunizations Not Given Vaccine Date [...] 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 Refills 0, Maintenance, 04/26/19 7:57:16 EDT, Instructions Replace Required Details, Route to Pharmacy E... Start Date: 04/26/19 Status: Orderedazelastine nasal 0.15% spray 1 sprays, Nares, Both, 2 times a day, PRN for allergy symptoms, Maintenance, 01/20/22 20:30:00 EST, [place] Start Date: 01/20/22 Status: OrderedCAM boot CAM [...] 10/11/19 14:00:36 EST, Route to Pharmacy Electronically, [id number], H... Start Date: 10/11/19 Stop Date: 10/25/19 [...] times a day, Maintenance, 01/20/22 20:30:00 EST, [place] Start Date: 01/20/22 Status: OrderedFlovent HFA 220 [...] 10/11/19 14:00:03 EST, Route to Pharmacy Electronically, [id number], [facility] [facility]... Start Date: 10/11/19 Stop Date: 10/25/19 [...] Maintenance, 08/24/17 13:15:32, Route to Pharmacy Electronically, [id number], [facility] - Start Date: 08/24/17 Stop [...] Maintenance, 12/28/16 13:36:46, Route to Pharmacy Electronically, [id number], [facility] Start Date: 12/28/16 Stop Date: 07/26/17 Status: Orderedrosuvastatin 40 mg oral tablet 1 tablet = 40 mg, By Mouth, Daily, # 30 tablet, 0 Refills, Maintenance, 05/14/19 11:50:13 EDT, Tablet Start Date: 05/14/19 Status: Orderedspironolactone 25 mg oral tablet 25 mg, 1, tablet, By Mouth, Daily, Please call office to schedule and appt. [phone], # 30 tablet, Refills 1, Tot. Refills 1, Maintenance, 07/28/21 14:31:00 EDT, Route to Pharmacy Electronically, [facility], 170.18, cm, ... Start Date: [...] cardiomyopathy(Confirmed) Active Microalbuminuria(Confirmed) Active Diabetic neuropathy(Confirmed) Active Obese class I(Confirmed) Active Obesity(Confirmed) Active Obstructive sleep apnea(Confirmed) Active Hip osteoarthritis(Confirmed) Active Pleural effusion, right(Confirmed) Active Systolic heart failure(Confirmed) Active Social History Social History Type Response Smoking Status Former smoker; Tobacco user in household: No entered on: 06/20/17 Sex Female Care Team PersonnelName: Karlee REBOLLEDO, Yolie Ford Address: [address] [place] [address]
--- OUTSIDE RECORDS SUMMARY | 2022-10-20 20:33 | XMS_ITS | Continuity of Care Document ---
:1975 Author Organization [facility] Address [address] [place] [address]- Care Team Providers Name Role Phone Karlee REBOLLEDO, Yolie Ford Primary Care Physician [phone] Encounter [facility] [place] Date(s): 11/12/20 - 12/12/20 [facility] [address] [place] [address] Attending Physician: Asya Redd Admitting Physician: Asya Redd Referring Physician: AdmtrJules8 Allergies, Adverse Reactions, Alerts Substance Reaction Severity Status sulfamethoxazole Active metOLazone1 itching, lip swell Active Levaquin itchy Active Bactrim facial swelling Active trimethoprim Sulfamethoxazole Active Other Environmental Allergy2 Act hever 1itching, lip [id number] and cockroahes thru allergy testing Immunizations Not [...] 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 Pt no longer comes to our office., [...] 10/11/19 14:00:36 EST, Route to Pharmacy Electronically, [id number], ... Start Date: 10/11/19 Stop Date: 10/25/19 [...] 10/11/19 14:00:03 EST, Route to Pharmacy Electronically, [id number], [facility] Start Date: 10/11/19 Stop Date: 10/25/19 Status: [...] Maintenance, 08/24/17 13:15:32, Route to Pharmacy Electronically, [id number], [facility] Start Date: 08/24/17 Stop Date: 02/20/18 [...] Maintenance, 12/28/16 13:36:46, Route to Pharmacy Electronically, [id number], [facility] Start Date: 12/28/16 Stop Date: 07/26/17 [...] 04/17/20 13:38:00 EDT, Route to Pharmacy Electronically, [facility], 170.18, cm, 10/16/19 16:13:00 EST, [...]
--- OUTSIDE RECORDS SUMMARY | 2022-10-20 20:33 | XMS_ITS | Continuity of Care Document ---
:1975 Author Organization W[facility] Care Address [address] [place] [address]- Care Team Providers Name Role Phone Karlee REBOLLEDO, Yolie Ford Primary Care Physician [id number] Date(s): 06/21/22 - 07/24/[facility] Care [address] [place] [id number] Attending Physician: Bill BERTRAND, Irma Santos Admitting Physician: Bill BERTRAND, Irma Santos Referring Physician: Yolie Desir MD Allergies, Adverse Reactions, Alerts Substance Reaction Severity Status sulfamethoxazole Active Levaquin itchy Active Bactrim facial swelling Active metOLazone1 itching, lip swell Active trimethoprim Sulfamethoxazole Active Other Environmental Allergy2 Act hever 1itching, lip [id number] and cockroahes thru allergy testing Immunizations Not [...] 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 Refills 0, Maintenance, 04/26/19 7:57:16 EDT, Instructions Replace Required Details, Route to Pharmacy E... Start Date: 04/26/19 Status: Orderedazelastine nasal 0.15% spray 1 sprays, Nares, Both, 2 times a day, PRN for allergy symptoms, Maintenance, 01/20/22 20:30:00 EST, [place] Start Date: 01/20/22 Status: OrderedCAM boot CAM [...] 10/11/19 14:00:36 EST, Route to Pharmacy Electronically, [id number], H... Start Date: 10/11/19 Stop Date: 10/25/19 [...] times a day, Maintenance, 01/20/22 20:30:00 EST, [place] Start Date: 01/20/22 Status: OrderedFlovent HFA 220 [...] 10/11/19 14:00:03 EST, Route to Pharmacy Electronically, [id number], [facility]... Start Date: 10/11/19 Stop Date: 10/25/19 [...] Maintenance, 08/24/17 13:15:32, Route to Pharmacy Electronically, [id number], [facility] - Start Date: 08/24/17 Stop Date: [...] Maintenance, 12/28/16 13:36:46, Route to Pharmacy Electronically, [id number], [facility] Start Date: 12/28/16 Stop Date: 07/26/17 Status: Orderedrosuvastatin 40 mg oral tablet 1 tablet = 40 mg, By Mouth, Daily, # 30 tablet, 0 Refills, Maintenance, 05/14/19 11:50:13 EDT, Tablet Start Date: 05/14/19 Status: Orderedspironolactone 25 mg oral tablet 25 mg, 1, tablet, By Mouth, Daily, Please call office to schedule and appt. [phone], # 30 tablet, Refills 1, Tot. Refills 1, Maintenance, 07/28/21 14:31:00 EDT, Route to Pharmacy Electronically, [facility], 170.18, cm, ... Start Date: 07/28/21 [...] Team PersonnelName: Karlee REBOLLEDO, Yolie Ford Address: [address] [place] [address]
--- OUTSIDE RECORDS SUMMARY | 2022-10-20 20:33 | XMS_ITS | Continuity of Care Document ---
:1975 Author Organization W[facility] Care Address [address] [place] [address]- Care Team Providers Name Role Phone Yolie Desir MD Primary Care Physician Encounter [facility] Date(s): 10/02/21 - 11/07/21 Wound Care [address] [place] [address] [place] Attending Physician: Jose Alejandro Webber MD Admitting Physician: Jose Alejandro Webber MD Referring Physician: Yolie Desir MD Allergies, Adverse Reactions, Alerts Substance Reaction Severity Status sulfamethoxazole Active Levaquin itchy Active Bactrim facial swelling Active trimethoprim Sulfamethoxazole Active Other Environmental Allergy1 Act hever metOLazone2 itching, lip swell Active 1Fungus and cockroahes thru allergy [id number], lip swelling Immunizations Not Given Vaccine Date [...] 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 Pt no longer comes to our office., [...] 10/11/19 14:00:36 EST, Route to Pharmacy Electronically, [id number], H... Start Date: 10/11/19 Stop Date: 10/25/19 [...] 10/11/19 14:00:03 EST, Route to Pharmacy Electronically, [id number], [facility]... Start Date: 10/11/19 Stop Date: 10/25/19 [...] Maintenance, 08/24/17 13:15:32, Route to Pharmacy Electronically, [id number], [facility] Start Date: 08/24/17 Stop Date: 02/20/18 Status: [...] Maintenance, 12/28/16 13:36:46, Route to Pharmacy Electronically, [id number], [facility] Start Date: 12/28/16 Stop Date: [...] Please call office to schedule and appt. [phone], # 30 tablet, Refills 1, Tot. Refills 1, Maintenance, 07/28/21 14:31:00 EDT, Route to Pharmacy Electronically, [facility], 170.18, cm, ... Start Date: [...]
--- OUTSIDE RECORDS SUMMARY | 2022-10-20 20:33 | XMS_ITS | Continuity of Care Document ---
:1975 Author Organization [facility] Address [address] [place] [address]- Care Team Providers Name Role Phone Karlee REBOLLEDO, Yolie Ford Primary Care Physician Encounter [facility] [place] Date(s): 09/15/20 - 09/15/[address] [address]- [facility] Discharge Disposition: A-D/C Home Attending Physician: Erik Green MD Admitting Physician: Erik Green MD Referring Physician: Erik Green MD Allergies, Adverse Reactions, Alerts Substance Reaction Severity Status sulfamethoxazole Active Levaquin itchy Active Bactrim facial swelling Active trimethoprim Sulfamethoxazole Active Other Environmental Allergy1 Act hever metOLazone2 itching, lip swell Active 1Fungus and cockroahes thru allergy [id number], lip swelling Immunizations Not Given Vaccine Date [...] 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 Pt no longer comes to our office., [...] 10/11/19 14:00:36 EST, Route to Pharmacy Electronically, [id number], ... Start Date: 10/11/19 Stop Date: 10/25/19 [...] 10/11/19 14:00:03 EST, Route to Pharmacy Electronically, [id number], [facility]... Start Date: 10/11/19 Stop Date: 10/25/19 Status: [...] Maintenance, 08/24/17 13:15:32, Route to Pharmacy Electronically, [id number], [facility] [place] Start Date: 08/24/17 Stop Date: 02/20/18 Status: [...] Maintenance, 12/28/16 13:36:46, Route to Pharmacy Electronically, [id number], [facility] Start Date: 12/28/16 Stop Date: [...] 04/17/20 13:38:00 EDT, Route to Pharmacy Electronically, [facility], 170.18, cm, 10/16/19 16:13:00 EST, Height, [...] Pneumonia(Confirmed) 01/19/16 Active Systolic heart failure(Confirmed) Active Vital Signs Most recent to oldest 1 2 3 [Reference Range]: Weight 93.7 kg (09/15/20 7:00 AM) Oxygen Saturation [94-100 96 % 97 % 100 % %] (09/15/20 9:45 AM) (09/15/20 9:30 AM) (09/15/20 7:40 AM) Pulse Rate [55-90 bpm] 82 bpm (09/15/20 7:00 AM) Blood Pressure 118/60 mm Hg 113/52 mm Hg 134/75 mm Hg [90-138/55-84 mm Hg] (09/15/20 9:45 AM) (09/15/20 9:30 AM) (08/22 05/10 7:40 AM) Respiratory Rate [16-30 19 br/min 12 br/min 16 br/mi n br/min] (09/15/20 9:45 AM) *L* (09/15/20 7:0 0 AM) (09/15/20 9:30 AM) Temperature [96.8-100.4 97.4 DegF 97 DegF 97.4 Deg F DegF] (09/15/20 10:00 AM) (09/15/20 9:30 AM) (09/15/20 7:00 AM) Liters per Minute 2 L/min 2 L/min (09/15/20 7:40 AM) (09/15/20 7:35 AM) Mode of Delivery (Oxygen) Room air Nasal cannula Nasal cannula (09/15/20 9:30 AM) (09/15/20 7:40 AM) (09/15/20 7:35 AM) Blood pressure sites Arm, left (09/15/20 7:00 AM) Temperature Route Temporal Temporal Temporal (09/15/20 10:00 AM) (09/15/20 9:30 AM) (09/15/20 7:00 AM) Dry Weight 93.7 kg (09/15/20 7:00 AM) Weight Obtained Via Standing scale (09/15/20 7:00 AM) Dry Weight Obtained Via Standing scale (09/15/20 7:00 AM) Social History Social History Type Response Smoking Status Former smoker; Tobacco user in household: No entered on: 06/20/17 Sex Female
--- OUTSIDE RECORDS SUMMARY | 2022-10-20 20:33 | XMS_ITS | Continuity of Care Document ---
:1975 Author Organization Wound Care Address [address] [place] [address]- Care Team Providers Name Role Phone Yolie Desir MD Primary Care Physician [phone] [place] [facility] [place](s): 12/29/21 - 02/03/22 Wound Care [address] [place] [address] Attending Physician: Jose Alejandro Webber MD Admitting Physician: Jose Alejandro Webber MD Referring Physician: Yolie Desir MD Allergies, Adverse Reactions, Alerts Substance Reaction Severity Status sulfamethoxazole Active Levaquin itchy Active Bactrim facial swelling Active trimethoprim Sulfamethoxazole Active Other Environmental Allergy1 Act hever metOLazone2 itching, lip swell Active 1Fungus and cockroahes thru allergy [id number], lip swelling Immunizations Not Given Vaccine Date [...] 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 Refills 0, Maintenance, 04/26/19 7:57:16 EDT, Instructions Replace Required Details, Route to Pharmacy E... Start Date: 04/26/19 Status: Orderedazelastine nasal 0.15% spray 1 sprays, Nares, Both, 2 times a day, PRN for allergy symptoms, Maintenance, 01/20/22 20:30:00 EST, [place] Start Date: 01/20/22 Status: OrderedCAM boot CAM [...] 10/11/19 14:00:36 EST, Route to Pharmacy Electronically, [id number], H... Start Date: 10/11/19 Stop Date: 10/25/19 [...] times a day, Maintenance, 01/20/22 20:30:00 EST, [place] Start Date: 01/20/22 Status: OrderedFlovent HFA 220 [...] 10/11/19 14:00:03 EST, Route to Pharmacy Electronically, [id number], [facility]... Start Date: 10/11/19 Stop Date: 10/25/19 Status: [...] Maintenance, 08/24/17 13:15:32, Route to Pharmacy Electronically, [id number], [facility] - Start Date: 08/24/17 Stop [...] Maintenance, 12/28/16 13:36:46, Route to Pharmacy Electronically, [id number], [facility] Start Date: 12/28/16 Stop Date: 07/26/17 Status: Orderedrosuvastatin 40 mg oral tablet 1 tablet = 40 mg, By Mouth, Daily, # 30 tablet, 0 Refills, Maintenance, 05/14/19 11:50:13 EDT, Tablet Start Date: 05/14/19 Status: Orderedspironolactone 25 mg oral tablet 25 mg, 1, tablet, By Mouth, Daily, Please call office to schedule and appt. [phone], # 30 tablet, Refills 1, Tot. Refills 1, Maintenance, 07/28/21 14:31:00 EDT, Route to Pharmacy Electronically, [facility], 170.18, cm, ... Start Date: [...]
--- OUTSIDE RECORDS SUMMARY | 2022-10-20 20:33 | XMS_ITS | Continuity of Care Document ---
:1975 Author Organization Wound Care Address [address] [place] [address]- Care Team Providers Name Role Phone Karlee REBOLLEDO, Yolie Ford Primary Care Physician [place] [facility] [place](s): 06/09/22 - 07/10/22 Wound Care [address] [place] [address] Attending Physician: Bill BERTRAND, Irma Santos Admitting Physician: Bill BERTRAND, Irma Santos Allergies, Adverse Reactions, Alerts Substance Reaction Severity Status sulfamethoxazole Active Levaquin itchy Active metOLazone1 itching, lip swell Active Bactrim facial swelling Active trimethoprim Sulfamethoxazole Active Other Environmental Allergy2 Act hever 1itching, lip akcoqseq8Redlbr and cockroahes thru allergy testing Immunizations Not [...] 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 Refills 0, Maintenance, 04/26/19 7:57:16 EDT, Instructions Replace Required Details, Route to Pharmacy E... Start Date: 04/26/19 Status: Orderedazelastine nasal 0.15% spray 1 sprays, Nares, Both, 2 times a day, PRN for allergy symptoms, Maintenance, 01/20/22 20:30:00 EST, [place] Start Date: 01/20/22 Status: OrderedCAM boot CAM [...] 10/11/19 14:00:36 EST, Route to Pharmacy Electronically, [id number], H... Start Date: 10/11/19 Stop Date: 10/25/19 [...] times a day, Maintenance, 01/20/22 20:30:00 EST, [place] Start Date: 01/20/22 Status: OrderedFlovent HFA 220 [...] 10/11/19 14:00:03 EST, Route to Pharmacy Electronically, [id number], [facility]... Start Date: 10/11/19 Stop Date: 10/25/19 [...] Maintenance, 08/24/17 13:15:32, Route to Pharmacy Electronically, [id number], [facility] - Start Date: 08/24/17 [...] Maintenance, 12/28/16 13:36:46, Route to Pharmacy Electronically, [id number], [facility] Start Date: 12/28/16 Stop Date: 07/26/17 Status: Orderedrosuvastatin 40 mg oral tablet 1 tablet = 40 mg, By Mouth, Daily, # 30 tablet, 0 Refills, Maintenance, 05/14/19 11:50:13 EDT, Tablet Start Date: 05/14/19 Status: Orderedspironolactone 25 mg oral tablet 25 mg, 1, tablet, By Mouth, Daily, Please call office to schedule and appt. [phone], # 30 tablet, Refills 1, Tot. Refills 1, Maintenance, 07/28/21 14:31:00 EDT, Route to Pharmacy Electronically, [facility], 170.18, cm, ... Start Date: [...]
--- OUTSIDE RECORDS SUMMARY | 2022-10-20 20:33 | XMS_ITS | Continuity of Care Document ---
:1975 Author Organization Wound Care Address [address] [place] [address]- Care Team Providers Name Role Phone Yolie Desir MD Primary Care Physician [phone] [facility] [place] [facility] Date(s): 01/19/22 - 02/24/22 Wound Care [address] [place] [address] Attending Physician: Jose Alejandro eWbber MD Admitting Physician: Jose Alejandro Webber MD Referring Physician: Yolie Desir MD Allergies, Adverse Reactions, Alerts Substance Reaction Severity Status sulfamethoxazole Active Levaquin itchy Active Bactrim facial swelling Active trimethoprim Sulfamethoxazole Active Other Environmental Allergy1 Act hever metOLazone2 itching, lip swell Active 1Fungus and cockroahes thru allergy [id number], lip swelling Immunizations Not Given Vaccine Date [...] 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 Refills 0, Maintenance, 04/26/19 7:57:16 EDT, Instructions Replace Required Details, Route to Pharmacy E... Start Date: 04/26/19 Status: Orderedazelastine nasal 0.15% spray 1 sprays, Nares, Both, 2 times a day, PRN for allergy symptoms, Maintenance, 01/20/22 20:30:00 EST, [place] Start Date: 01/20/22 Status: OrderedCAM boot CAM [...] 10/11/19 14:00:36 EST, Route to Pharmacy Electronically, [id number], H... Start Date: 10/11/19 Stop Date: 10/25/19 [...] times a day, Maintenance, 01/20/22 20:30:00 EST, [place] Start Date: 01/20/22 Status: OrderedFlovent HFA 220 [...] 10/11/19 14:00:03 EST, Route to Pharmacy Electronically, [id number], [facility]... Start Date: 10/11/19 Stop Date: 10/25/19 [...] Maintenance, 08/24/17 13:15:32, Route to Pharmacy Electronically, [id number], [facility] - Start Date: 08/24/17 Stop [...] Maintenance, 12/28/16 13:36:46, Route to Pharmacy Electronically, [id number], [facility] Start Date: 12/28/16 Stop Date: 07/26/17 Status: Orderedrosuvastatin 40 mg oral tablet 1 tablet = 40 mg, By Mouth, Daily, # 30 tablet, 0 Refills, Maintenance, 05/14/19 11:50:13 EDT, Tablet Start Date: 05/14/19 Status: Orderedspironolactone 25 mg oral tablet 25 mg, 1, tablet, By Mouth, Daily, Please call office to schedule and appt. [phone], # 30 tablet, Refills 1, Tot. Refills 1, Maintenance, 07/28/21 14:31:00 EDT, Route to Pharmacy Electronically, [facility], 170.18, cm, ... Start Date: [...]
--- OUTSIDE RECORDS SUMMARY | 2022-10-20 20:33 | XMS_ITS | Continuity of Care Document ---
:1975 Author Organization Wound Care Address [address] [place] [address]- Care Team Providers Name Role Phone Yolie Desir MD Primary Care Physician Encounter [facility] [place] Date(s): 11/24/21 - 12/30/21 Wound Care [address] [place] [id number] Attending Physician: Jose Alejandro Webber MD Admitting Physician: Jose Alejandro Webber MD Referring Physician: Yolie Desir MD Allergies, Adverse Reactions, Alerts Substance Reaction Severity Status sulfamethoxazole Active Levaquin itchy Active Bactrim facial swelling Active trimethoprim Sulfamethoxazole Active Other Environmental Allergy1 Act hever metOLazone2 itching, lip swell Active 1Fungus and cockroahes thru allergy cjxykgw6wyzalea, lip swelling Immunizations Not Given Vaccine Date [...] 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 Pt no longer comes to our [...] 10/11/19 14:00:36 EST, Route to Pharmacy Electronically, [id number], H... Start Date: 10/11/19 Stop Date: 10/25/19 [...] 10/11/19 14:00:03 EST, Route to Pharmacy Electronically, [id number], [facility]... Start Date: 10/11/19 Stop Date: 10/25/19 [...] Maintenance, 08/24/17 13:15:32, Route to Pharmacy Electronically, [id number], [facility] Start Date: 08/24/17 Stop Date: [...] Maintenance, 12/28/16 13:36:46, Route to Pharmacy Electronically, [id number], [facility] Start Date: 12/28/16 Stop Date: [...] Please call office to schedule and appt. [phone], # 30 tablet, Refills 1, Tot. Refills 1, Maintenance, 07/28/21 14:31:00 EDT, Route to Pharmacy Electronically, [facility], 170.18, cm, ... Start [...]
--- OUTSIDE RECORDS SUMMARY | 2022-10-20 20:33 | XMS_ITS | Continuity of Care Document ---
:1975 Author Organization Wound Care Address [address] [place] [address]- Care Team Providers Name Role Phone Karlee REBOLLEDO, Yolie Ford Primary Care Physician Encounter [facility] [place] Date(s): 06/02/22 - 07/03/22 Wound Care [address] [place] [address] Attending Physician: Bill BERTRAND, Irma Santos Admitting Physician: Bill BERTRAND, Irma Santos Allergies, Adverse Reactions, Alerts Substance Reaction Severity Status sulfamethoxazole Active metOLazone1 itching, lip swell Active Levaquin itchy Active Bactrim facial swelling Active trimethoprim Sulfamethoxazole Active Other Environmental Allergy2 Act hever 1itching, lip [id number] and cockroahes thru allergy testing Immunizations Not [...] 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 Refills 0, Maintenance, 04/26/19 7:57:16 EDT, Instructions Replace Required Details, Route to Pharmacy E... Start Date: 04/26/19 Status: Orderedazelastine nasal 0.15% spray 1 sprays, Nares, Both, 2 times a day, PRN for allergy symptoms, Maintenance, 01/20/22 20:30:00 EST, [place] Start Date: 01/20/22 Status: OrderedCAM boot CAM [...] 10/11/19 14:00:36 EST, Route to Pharmacy Electronically, [id number], H... Start Date: 10/11/19 Stop Date: 10/25/19 [...] times a day, Maintenance, 01/20/22 20:30:00 EST, [place] Start Date: 01/20/22 Status: OrderedFlovent HFA 220 [...] 10/11/19 14:00:03 EST, Route to Pharmacy Electronically, [id number], [facility]... Start Date: 10/11/19 Stop Date: 10/25/19 Status: [...] Maintenance, 08/24/17 13:15:32, Route to Pharmacy Electronically, [id number], [facility] - Start Date: 08/24/17 Stop [...] Maintenance, 12/28/16 13:36:46, Route to Pharmacy Electronically, [id number], [facility] Start Date: 12/28/16 Stop Date: 07/26/17 Status: Orderedrosuvastatin 40 mg oral tablet 1 tablet = 40 mg, By Mouth, Daily, # 30 tablet, 0 Refills, Maintenance, 05/14/19 11:50:13 EDT, Tablet Start Date: 05/14/19 Status: Orderedspironolactone 25 mg oral tablet 25 mg, 1, tablet, By Mouth, Daily, Please call office to schedule and appt. [phone], # 30 tablet, Refills 1, Tot. Refills 1, Maintenance, 07/28/21 14:31:00 EDT, Route to Pharmacy Electronically, [facility], 170.18, cm, ... Start Date: [...]
--- OUTSIDE RECORDS SUMMARY | 2022-10-20 20:33 | XMS_ITS | Continuity of Care Document ---
:1975 Author Organization [facility] Address [address] [place] [address]- Care Team Providers Name Role Phone Karlee REBOLLEDO, Yolie Ford Primary Care Physician En[place] [facility] [place] Date(s): 04/06/21 - 05/06/21 [facility] [address] [place] [id number] Allergies, Adverse Reactions, Alerts Substance Reaction Severity Status sulfamethoxazole Active Levaquin itchy Active Bactrim facial swelling Active trimethoprim Sulfamethoxazole Active Other Environmental Allergy1 Act hever metOLazone2 itching, lip swell Active 1Fungus and cockroahes thru allergy [id number], lip swelling Immunizations Not Given Vaccine Date [...] 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 Pt no longer comes to our office., [...] 10/11/19 14:00:36 EST, Route to Pharmacy Electronically, [id number], H... Start Date: 10/11/19 Stop Date: 10/25/19 [...] 10/11/19 14:00:03 EST, Route to Pharmacy Electronically, [id number], [facility]... Start Date: 10/11/19 Stop Date: [...] Maintenance, 08/24/17 13:15:32, Route to Pharmacy Electronically, [id number], [facility] Start Date: 08/24/17 Stop [...] Maintenance, 12/28/16 13:36:46, Route to Pharmacy Electronically, [id number], [facility] Start Date: 12/28/16 Stop Date: [...] 04/06/21 16:26:00 EDT, Route to Pharmacy Electronically, [facility], 170.18, cm, 10/16/19 16:13:00 [...]
--- OUTSIDE RECORDS SUMMARY | 2022-10-20 20:33 | XMS_ITS | Continuity of Care Document ---
:1975 Author Organization Wound Care Address [address] [place] [address]- Care Team Providers Name Role Phone Yolie Desir MD Primary Care Physician [phone] Encounter [facility] [place] Date(s): 09/29/21 - 10/29/21 Wound Care [address] [place] [id number] Attending Physician: Jose Alejandro Webber MD Admitting Physician: Jose Alejandro Webber MD Referring Physician: Yolie Desir MD Allergies, Adverse Reactions, Alerts Substance Reaction Severity Status sulfamethoxazole Active Levaquin itchy Active Bactrim facial swelling Active trimethoprim Sulfamethoxazole Active Other Environmental Allergy1 Act hever metOLazone2 itching, lip swell Active 1Fungus and cockroahes thru allergy srpsede1cgyihew, lip swelling Immunizations Not Given Vaccine Date [...] 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 Pt no longer comes to our [...] 10/11/19 14:00:36 EST, Route to Pharmacy Electronically, [id number], H... Start Date: 10/11/19 Stop Date: 10/25/19 Status: OrderedFerrous Gluconate = 324 mg, By Mouth, 2 times a day, 0 Refills, Maintenance, 03/23/17 9:09:21 EDT Start Date: 03/23/17 Status: Orderedfreestyle Whitney CGM reader freestyle Whiteny CGM reader, See Instructions, # 1 application, [...] 10/11/19 14:00:03 EST, Route to Pharmacy Electronically, [id number], [facility]... Start Date: 10/11/19 Stop Date: 10/25/19 Status: [...] Maintenance, 08/24/17 13:15:32, Route to Pharmacy Electronically, [id number], [facility] Start Date: 08/24/17 Stop Date: [...] Maintenance, 12/28/16 13:36:46, Route to Pharmacy Electronically, [id number], [facility] Start Date: 12/28/16 Stop Date: [...] Please call office to schedule and appt. [phone], # 30 tablet, Refills 1, Tot. Refills 1, Maintenance, 07/28/21 14:31:00 EDT, Route to Pharmacy Electronically, [facility], 170.18, cm, ... Start Date: [...]
--- OUTSIDE RECORDS SUMMARY | 2022-10-20 20:33 | XMS_ITS | Continuity of Care Document ---
:1975 Author Organization Wound Care Address [address] [place] [address]- Care Team Providers Name Role Phone Yolie Desir MD Primary Care Physician [place] [facility] [place] 09/01/21 - 10/07/21 Wound Care [address] [place] [address] Attending Physician: Lance White MD Admitting Physician: Cindy REBOLLEDO, Lance Referring Physician: Yolie Desir MD Allergies, Adverse Reactions, Alerts Substance Reaction Severity Status sulfamethoxazole Active Levaquin itchy Active Bactrim facial swelling Active trimethoprim Sulfamethoxazole Active Other Environmental Allergy1 Act hever metOLazone2 itching, lip swell Active 1Fungus and cockroahes thru allergy [id number], lip swelling Immunizations Not Given Vaccine Date [...] 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 Pt no longer comes to our [...] 10/11/19 14:00:36 EST, Route to Pharmacy Electronically, [id number], H... Start Date: 10/11/19 Stop Date: 10/25/19 Status: OrderedFerrous Gluconate = 324 mg, By Mouth, 2 times a day, 0 Refills, Maintenance, 03/23/17 9:09:21 EDT Start Date: 03/23/17 Status: Orderedfreestyle Whitney CGM reader [employer] Whitney CGM reader, See Instructions, # 1 [...] 10/11/19 14:00:03 EST, Route to Pharmacy Electronically, [id number], [facility]... Start Date: 10/11/19 Stop Date: 10/25/19 [...] Maintenance, 08/24/17 13:15:32, Route to Pharmacy Electronically, [id number], [facility] - Start Date: 08/24/17 Stop Date: [...] Maintenance, 12/28/16 13:36:46, Route to Pharmacy Electronically, [id number], [facility] Start Date: 12/28/16 Stop Date: [...] Please call office to schedule and appt. [phone], # 30 tablet, Refills 1, Tot. Refills 1, Maintenance, 07/28/21 14:31:00 EDT, Route to Pharmacy Electronically, [facility], 170.18, cm, ... Start Date: 07/28/21 [...]
--- OUTSIDE RECORDS SUMMARY | 2022-10-20 20:33 | XMS_ITS | Continuity of Care Document ---
:1975 Author Organization Wound Care Address [address] [place] [address]- Care Team Providers Name Role Phone Karlee REBOLLEDO, Yolie Ford Primary Care Physician [place] [facility] [place]): 12/31/20 - 02/05/21 Wound Care [address] [place] [id number] Attending Physician: Lance White MD Admitting Physician: Cindy REBOLLEDO, Lance Referring Physician: Yolie Desir MD Allergies, Adverse Reactions, Alerts Substance Reaction Severity Status sulfamethoxazole Active Levaquin itchy Active Bactrim facial swelling Active metOLazone1 itching, lip swell Active trimethoprim Sulfamethoxazole Active Other Environmental Allergy2 Act hever 1itching, lip tjsepmzy8Qqahtu and cockroahes thru allergy testing Immunizations Not [...] 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 Pt no longer comes to our office., [...] 10/11/19 14:00:36 EST, Route to Pharmacy Electronically, [id number], ... Start Date: 10/11/19 Stop Date: 10/25/19 [...] 10/11/19 14:00:03 EST, Route to Pharmacy Electronically, [id number], [facility]... Start Date: 10/11/19 Stop Date: 10/25/19 Status: [...] Maintenance, 08/24/17 13:15:32, Route to Pharmacy Electronically, [id number], [facility] [place] Start Date: 08/24/17 Stop [...] Maintenance, 12/28/16 13:36:46, Route to Pharmacy Electronically, [id number], [facility] Start Date: 12/28/16 Stop Date: [...] 04/17/20 13:38:00 EDT, Route to Pharmacy Electronically, [facility], 170.18, cm, 10/16/19 16:13:00 EST, [...]
--- OUTSIDE RECORDS SUMMARY | 2022-10-20 20:34 | XMS_ITS | Continuity of Care Document ---
:1975 Author Organization Wound Care Address [address] [place] [address]- Care Team Providers Name Role Phone Karlee REBOLLEDO, Yolie Ford Primary Care Physician [place] [facility] [place]s): 12/01/21 - 01/06/22 Wound Care [address] [place] [address] Attending Physician: Jose Alejandro Webber MD Admitting Physician: Jose Alejandro Webber MD Referring Physician: Yolie Desir MD Allergies, Adverse Reactions, Alerts Substance Reaction Severity Status sulfamethoxazole Active Levaquin itchy Active Bactrim facial swelling Active trimethoprim Sulfamethoxazole Active Other Environmental Allergy1 Act hever metOLazone2 itching, lip swell Active 1Fungus and cockroahes thru allergy [id number], lip swelling Immunizations Not Given Vaccine Date [...] 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 Pt no longer comes to [...] 10/11/19 14:00:36 EST, Route to Pharmacy Electronically, [id number], H... Start Date: 10/11/19 Stop Date: 10/25/19 [...] 10/11/19 14:00:03 EST, Route to Pharmacy Electronically, [id number], [facility]... Start Date: 10/11/19 Stop Date: 10/25/19 [...] Maintenance, 08/24/17 13:15:32, Route to Pharmacy Electronically, [id number], [facility] - Start Date: 08/24/17 Stop [...] Maintenance, 12/28/16 13:36:46, Route to Pharmacy Electronically, [id number], [facility] Start Date: 12/28/16 Stop [...] Please call office to schedule and appt. [phone], # 30 tablet, Refills 1, Tot. Refills 1, Maintenance, 07/28/21 14:31:00 EDT, Route to Pharmacy Electronically, [facility], 170.18, cm, ... Start Date: [...]
--- OUTSIDE RECORDS SUMMARY | 2022-10-20 20:34 | XMS_ITS | Continuity of Care Document ---
:1975 Author Organization Wound Care Address [address] [place] [address]- Care Team Providers Name Role Phone Karlee REBOLLEDO, Yolie Ford Primary Care Physician [place] [facility] [place](s): 03/16/21 - 04/15/21 Wound Care [address] [place] [id number] Allergies, Adverse Reactions, Alerts Substance Reaction Severity Status sulfamethoxazole Active Levaquin itchy Active Bactrim facial swelling Active trimethoprim Sulfamethoxazole Active Other Environmental Allergy1 Act hever metOLazone2 itching, lip swell Active 1Fungus and cockroahes thru allergy jclpusn4jeeflet, lip swelling Immunizations Not Given Vaccine Date [...] 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 Pt no longer comes to our office., [...] 10/11/19 14:00:36 EST, Route to Pharmacy Electronically, [id number], ... Start Date: 10/11/19 Stop Date: 10/25/19 [...] 10/11/19 14:00:03 EST, Route to Pharmacy Electronically, [id number], [facility] Start Date: 10/11/19 Stop Date: [...] Maintenance, 08/24/17 13:15:32, Route to Pharmacy Electronically, [id number], [facility] [place] Start Date: [...] Maintenance, 12/28/16 13:36:46, Route to Pharmacy Electronically, [id number], [facility] Start Date: 12/28/16 Stop Date: [...] 04/06/21 16:26:00 EDT, Route to Pharmacy Electronically, [facility], 170.18, cm, 10/16/19 16:13:00 [...]
--- OUTSIDE RECORDS SUMMARY | 2022-10-20 20:34 | XMS_ITS | Continuity of Care Document ---
:1975 Author Organization Wound Care Address [address] [place] [address]- Care Team Providers Name Role Phone Yolie Desir MD Primary Care Physician [phone] En[place] [facility] [place]s): 09/23/21 - 10/29/21 Wound Care [address] [place] [address] Attending Physician: Jose Alejandro Webber MD Admitting Physician: Jose Alejandro Webber MD Referring Physician: Yolie Desir MD Allergies, Adverse Reactions, Alerts Substance Reaction Severity Status sulfamethoxazole Active Levaquin itchy Active Bactrim facial swelling Active trimethoprim Sulfamethoxazole Active Other Environmental Allergy1 Act hever metOLazone2 itching, lip swell Active 1Fungus and cockroahes thru allergy [id number], lip swelling Immunizations Not Given Vaccine Date [...] 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 Pt no longer comes to our office., [...] 10/11/19 14:00:36 EST, Route to Pharmacy Electronically, [id number], H... Start Date: 10/11/19 Stop Date: 10/25/19 [...] 10/11/19 14:00:03 EST, Route to Pharmacy Electronically, [id number], [facility]... Start Date: 10/11/19 Stop Date: 10/25/19 [...] Maintenance, 08/24/17 13:15:32, Route to Pharmacy Electronically, [id number], [facility] Start Date: 08/24/17 Stop Date: 02/20/18 [...] Maintenance, 12/28/16 13:36:46, Route to Pharmacy Electronically, [id number], [facility] Start Date: 12/28/16 Stop Date: [...] Please call office to schedule and appt. [phone], # 30 tablet, Refills 1, Tot. Refills 1, Maintenance, 07/28/21 14:31:00 EDT, Route to Pharmacy Electronically, [facility], 170.18, cm, ... Start Date: [...]
--- OUTSIDE RECORDS SUMMARY | 2022-10-20 20:34 | XMS_ITS | Continuity of Care Document ---
:1975 Author Organization Wound Care Address [address] [place] [address]- Care Team Providers Name Role Phone Karlee REBOLLEDO, Yolie Ford Primary Care Physician [place] [facility] [place] 02/18/21 - 03/26/21 Wound Care [address] [place] [address] Attending Physician: Lance White MD Admitting Physician: Lance White MD Referring Physician: Yolie Desir MD Allergies, Adverse Reactions, Alerts Substance Reaction Severity Status sulfamethoxazole Active Levaquin itchy Active Bactrim facial swelling Active trimethoprim Sulfamethoxazole Active metOLazone1 itching, lip swell Active Other Environmental Allergy2 Act hever 1itching, lip zizhllgu5Atibwf and cockroahes thru allergy testing Immunizations Not [...] 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 Pt no longer comes to our [...] 10/11/19 14:00:36 EST, Route to Pharmacy Electronically, [id number], ... Start Date: 10/11/19 Stop Date: 10/25/19 [...] 10/11/19 14:00:03 EST, Route to Pharmacy Electronically, [id number], [facility] Start Date: 10/11/19 Stop Date: 10/25/19 [...] Maintenance, 08/24/17 13:15:32, Route to Pharmacy Electronically, [id number], [facility] Start Date: 08/24/17 [...] Maintenance, 12/28/16 13:36:46, Route to Pharmacy Electronically, [id number], [facility] Start Date: 12/28/16 Stop Date: [...] 04/17/20 13:38:00 EDT, Route to Pharmacy Electronically, [facility], 170.18, cm, 10/16/19 16:13:00 EST, [...]
--- OUTSIDE RECORDS SUMMARY | 2022-10-20 20:34 | XMS_ITS | Continuity of Care Document ---
:1975 Author Organization W[facility] Care Address [address] [place] [address]- Care Team Providers Name Role Phone Yolie Desir MD Primary Care Physician [place] [facility] [place] 12/15/21 - 01/20/22 Wound Care [address] [place] [address] Attending Physician: Jose Alejandro Webber MD Admitting Physician: Jose Alejandro eWbber MD Referring Physician: Yolie Desir MD Allergies, Adverse Reactions, Alerts Substance Reaction Severity Status sulfamethoxazole Active Levaquin itchy Active Bactrim facial swelling Active trimethoprim Sulfamethoxazole Active Other Environmental Allergy1 Act hever metOLazone2 itching, lip swell Active 1Fungus and cockroahes thru allergy [id number], lip swelling Immunizations Not Given Vaccine Date [...] 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 Refills 0, Maintenance, 04/26/19 7:57:16 EDT, Instructions Replace Required Details, Route to Pharmacy E... Start Date: 04/26/19 Status: Orderedazelastine nasal 0.15% spray 1 sprays, Nares, Both, 2 times a day, PRN for allergy symptoms, Maintenance, 01/20/22 20:30:00 EST, [facility] Start Date: 01/20/22 Status: OrderedCAM boot CAM [...] 10/11/19 14:00:36 EST, Route to Pharmacy Electronically, [id number], H... Start Date: 10/11/19 Stop Date: 10/25/19 [...] times a day, Maintenance, 01/20/22 20:30:00 EST, [facility] Start Date: 01/20/22 Status: OrderedFlovent HFA 220 [...] 10/11/19 14:00:03 EST, Route to Pharmacy Electronically, [id number], [facility]... Start Date: 10/11/19 Stop Date: 10/25/19 [...] Maintenance, 08/24/17 13:15:32, Route to Pharmacy Electronically, [id number], [facility] - Start Date: 08/24/17 Stop Date: [...] Maintenance, 12/28/16 13:36:46, Route to Pharmacy Electronically, [id number], [facility] Start Date: 12/28/16 Stop Date: 07/26/17 Status: Orderedrosuvastatin 40 mg oral tablet 1 tablet = 40 mg, By Mouth, Daily, # 30 tablet, 0 Refills, Maintenance, 05/14/19 11:50:13 EDT, Tablet Start Date: 05/14/19 Status: Orderedspironolactone 25 mg oral tablet 25 mg, 1, tablet, By Mouth, Daily, Please call office to schedule and appt. [phone], # 30 tablet, Refills 1, Tot. Refills 1, Maintenance, 07/28/21 14:31:00 EDT, Route to Pharmacy Electronically, [facility], 170.18, cm, ... Start Date: 07/28/21 [...]
--- OUTSIDE RECORDS SUMMARY | 2022-10-20 20:34 | XMS_ITS | Continuity of Care Document ---
:1975 Author Organization W[facility] Care Address [address] [place] [address]- Care Team Providers Name Role Phone Karlee REBOLLEDO, Yolie Ford Primary Care Physician Encounter [facility] Date(s): 12/08/21 - 01/13/22 Wound Care [address] [place] [address] Attending Physician: Jose Alejandro Webber MD Admitting Physician: Jose Alejandro Webber MD Referring Physician: Yolie Desir MD Allergies, Adverse Reactions, Alerts Substance Reaction Severity Status sulfamethoxazole Active Levaquin itchy Active Bactrim facial swelling Active trimethoprim Sulfamethoxazole Active Other Environmental Allergy1 Act hever metOLazone2 itching, lip swell Active 1Fungus and cockroahes thru allergy [id number], lip swelling Immunizations Not Given Vaccine Date [...] 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 Pt no longer comes to our office., [...] 10/11/19 14:00:36 EST, Route to Pharmacy Electronically, [id number], H... Start Date: 10/11/19 Stop Date: 10/25/19 [...] 10/11/19 14:00:03 EST, Route to Pharmacy Electronically, [id number], [facility]... Start Date: 10/11/19 Stop Date: 10/25/19 [...] Maintenance, 08/24/17 13:15:32, Route to Pharmacy Electronically, [id number], [facility] - Start Date: 08/24/17 Stop [...] Maintenance, 12/28/16 13:36:46, Route to Pharmacy Electronically, [id number], [facility] Start Date: 12/28/16 [...] Please call office to schedule and appt. [phone], # 30 tablet, Refills 1, Tot. Refills 1, Maintenance, 07/28/21 14:31:00 EDT, Route to Pharmacy Electronically, [facility], 170.18, cm, ... Start Date: [...]
--- OUTSIDE RECORDS SUMMARY | 2022-10-20 20:34 | XMS_ITS | Continuity of Care Document ---
:1975 Author Organization [facility] Address [address] [place] [address]- Care Team Providers Name Role Phone Karlee REBOLLEDO, Yolie Ford Primary Care Physician [place] [facility] [place] 07/28/21 - 08/27/21 [facility] [address] [place] [address]- [place] Allergies, Adverse Reactions, Alerts Substance Reaction Severity Status sulfamethoxazole Active Levaquin itchy Active Bactrim facial swelling Active trimethoprim Sulfamethoxazole Active Other Environmental Allergy1 Act hever metOLazone2 itching, lip swell Active 1Fungus and cockroahes thru allergy [id number], lip swelling Immunizations Not Given Vaccine Date [...] 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 Pt no longer comes to our office., [...] 10/11/19 14:00:36 EST, Route to Pharmacy Electronically, [id number], ... Start Date: 10/11/19 Stop Date: 10/25/19 [...] 10/11/19 14:00:03 EST, Route to Pharmacy Electronically, [id number], [facility] Start Date: 10/11/19 Stop Date: [...] Maintenance, 08/24/17 13:15:32, Route to Pharmacy Electronically, [id number], [facility] Start Date: 08/24/17 Stop [...] Maintenance, 12/28/16 13:36:46, Route to Pharmacy Electronically, [id number], [facility] Start Date: 12/28/16 Stop [...] Please call office to schedule and appt. [phone], # 30 tablet, Refills 1, Tot. Refills 1, Maintenance, 07/28/21 14:31:00 EDT, Route to Pharmacy Electronically, [facility], 170.18, cm, ... Start Date: 07/28/21 [...]
--- OUTSIDE RECORDS SUMMARY | 2022-10-20 20:34 | XMS_ITS | Continuity of Care Document ---
:1975 Author Organization [facility] Address [address] [place] [address]- Care Team Providers Name Role Phone Karlee REBOLLEDO, Yolie Ford Primary Care Physician [phone] [place] [facility] [place]07[place] - 06/19/21 [facility] [address] [place] [address] Attending Physician: Princess REBOLLEDO, Stefany Admitting Physician: Princess REBOLLEDO, Ashequbasilio Referring Physician: Yolie Desir MD Allergies, Adverse Reactions, Alerts Substance Reaction Severity Status sulfamethoxazole Active Levaquin itchy Active Bactrim facial swelling Active trimethoprim Sulfamethoxazole Active Other Environmental Allergy1 Act hever metOLazone2 itching, lip swell Active 1Fungus and cockroahes thru allergy [id number], lip swelling Immunizations Not Given Vaccine Date [...] 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 Refills 0, Maintenance, 04/26/19 7:57:16 EDT, Instructions Replace Required Details, Route to Pharmacy E... Start Date: 04/26/19 Status: OrderedCAM boot CAM boot, See Instructions, # 1 each, Refills 0, Tot. Refills 0, Maintenance, katie 99, 04/22/21 14:08:00 EDT, Supply Start Date: 6/2/21 Status: Orderedcarvedilol 6.25 mg oral tablet 6.25 [...] 10/11/19 14:00:36 EST, Route to Pharmacy Electronically, [id number], H... Start Date: 10/11/19 Stop Date: 10/25/19 [...] 10/11/19 14:00:03 EST, Route to Pharmacy Electronically, [id number], [facility]... Start Date: 10/11/19 Stop [...] Maintenance, 08/24/17 13:15:32, Route to Pharmacy Electronically, [id number], [facility] Start Date: 08/24/17 [...] Maintenance, 12/28/16 13:36:46, Route to Pharmacy Electronically, [id number], [facility] Start Date: 12/28/16 Stop Date: [...] 04/06/21 16:26:00 EDT, Route to Pharmacy Electronically, [facility], 170.18, cm, 10/16/19 16:13:00 EST, [...]
--- OUTSIDE RECORDS SUMMARY | 2022-10-20 20:34 | XMS_ITS | Continuity of Care Document ---
:1975 Author Organization Wound Care Address [address] [place] [address]- Care Team Providers Name Role Phone Yolie Desir MD Primary Care Physician Encounter [facility] [place] Date(s): 01/05/22 - 02/10/22 Wound Care [address] [place] [address] Attending Physician: Jose Alejandro Webber MD Admitting Physician: Jose Alejandro Webber MD Referring Physician: Yolie Desir MD Allergies, Adverse Reactions, Alerts Substance Reaction Severity Status sulfamethoxazole Active metOLazone1 itching, lip swell Active Levaquin itchy Active Bactrim facial swelling Active trimethoprim Sulfamethoxazole Active Other Environmental Allergy2 Act hever 1itching, lip waxsbilj7Xmygqp and cockroahes thru allergy testing Immunizations Not [...] 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 Refills 0, Maintenance, 04/26/19 7:57:16 EDT, Instructions Replace Required Details, Route to Pharmacy E... Start Date: 04/26/19 Status: Orderedazelastine nasal 0.15% spray 1 sprays, Nares, Both, 2 times a day, PRN for allergy symptoms, Maintenance, 01/20/22 20:30:00 EST, [place] Start Date: 01/20/22 Status: OrderedCAM boot CAM [...] 10/11/19 14:00:36 EST, Route to Pharmacy Electronically, [id number], H... Start Date: 10/11/19 Stop Date: 10/25/19 [...] times a day, Maintenance, 01/20/22 20:30:00 EST, [place] Start Date: 01/20/22 Status: OrderedFlovent HFA 220 [...] 10/11/19 14:00:03 EST, Route to Pharmacy Electronically, [id number], [facility]... Start Date: 10/11/19 Stop Date: 10/25/19 Status: [...] Maintenance, 08/24/17 13:15:32, Route to Pharmacy Electronically, [id number], [facility] - Start Date: 08/24/17 Stop [...] Maintenance, 12/28/16 13:36:46, Route to Pharmacy Electronically, [id number], [facility] Start Date: 12/28/16 Stop Date: 07/26/17 Status: Orderedrosuvastatin 40 mg oral tablet 1 tablet = 40 mg, By Mouth, Daily, # 30 tablet, 0 Refills, Maintenance, 05/14/19 11:50:13 EDT, Tablet Start Date: 05/14/19 Status: Orderedspironolactone 25 mg oral tablet 25 mg, 1, tablet, By Mouth, Daily, Please call office to schedule and appt. [phone], # 30 tablet, Refills 1, Tot. Refills 1, Maintenance, 07/28/21 14:31:00 EDT, Route to Pharmacy Electronically, [facility], 170.18, cm, ... Start [...]
--- OUTSIDE RECORDS SUMMARY | 2022-10-20 20:34 | XMS_ITS | Continuity of Care Document ---
:1975 Author Organization [facility] Address [address] [place] [address]- Care Team Providers Name Role Phone Karlee REBOLLEDO, Yolie Ford Primary Care Physician [phone] Encounter [facility] [place] Date(s): 05/20/21 - 06/19/21 [facility] [address] [place] [address] Attending Physician: Admtr, Asya Admitting Physician: Admtr, Ar8 Referring Physician: Admtr, Ar8 Allergies, Adverse Reactions, Alerts Substance Reaction Severity Status sulfamethoxazole Active Levaquin itchy Active Bactrim facial swelling Active trimethoprim Sulfamethoxazole Active Other Environmental Allergy1 Act hever metOLazone2 itching, lip swell Active 1Fungus and cockroahes thru allergy dwfjxqk6ttxxhrj, lip swelling Immunizations Not Given Vaccine Date [...] 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 Pt no longer comes to our office., [...] 10/11/19 14:00:36 EST, Route to Pharmacy Electronically, [id number], H... Start Date: 10/11/19 Stop Date: 10/25/19 [...] 10/11/19 14:00:03 EST, Route to Pharmacy Electronically, [id number], [facility]... Start Date: 10/11/19 Stop Date: 10/25/19 [...] Maintenance, 08/24/17 13:15:32, Route to Pharmacy Electronically, [id number], [facility] Start Date: 08/24/17 Stop Date: 02/20/18 Status: [...] Maintenance, 12/28/16 13:36:46, Route to Pharmacy Electronically, [id number], [facility] Start Date: 12/28/16 Stop Date: 07/26/17 [...] 16:26:00 EDT, Route to Pharmacy Electronically, [facility], 170.18, cm, 10/16/19 16:13:00 EST, [...]
--- OUTSIDE RECORDS SUMMARY | 2022-10-20 20:34 | XMS_ITS | Continuity of Care Document ---
:1975 Author Organization [facility] Address [address] [place] [address]- Care Team Providers Name Role Phone Karlee REBOLLEDO, Yolie Ford Primary Care Physician [place] [facility] [place] 12/18/20 - 01/17/21 [facility] [address] [place], [place] [address] Attending Physician: Asya Redd Admitting Physician: Asya Redd Referring Physician: AdmtrAsya Allergies, Adverse Reactions, Alerts Substance Reaction Severity Status sulfamethoxazole Active metOLazone1 itching, lip swell Active Levaquin itchy Active Bactrim facial swelling Active trimethoprim Sulfamethoxazole Active Other Environmental Allergy2 Act hever 1itching, lip dltshhec4Khtclo and cockroahes thru allergy testing Immunizations Not [...] 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 Pt no longer comes to our office., [...] 10/11/19 14:00:36 EST, Route to Pharmacy Electronically, [id number], ... Start Date: 10/11/19 Stop Date: 10/25/19 Status: OrderedFerrous Gluconate = 324 mg, By Mouth, 2 times a day, 0 Refills, Maintenance, 03/23/17 9:09:21 EDT Start Date: 03/23/17 Status: Orderedfreestyle Whitney CGM reader freestyle Whitney CGM reader, See Instructions, # 1 application, Refills 0, Tot. Refills 0, Maintenance, check BG 4x daily, 11/17/17 9:58:32, Compound Start Date: 11/17/17 Status: Orderedfreestyle whitnye CGM sensors freestyle whitney CGM sensors, See [...] 10/11/19 14:00:03 EST, Route to Pharmacy Electronically, [id number], [employer] [facility]... Start Date: 10/11/19 Stop Date: 10/25/19 [...] Maintenance, 08/24/17 13:15:32, Route to Pharmacy Electronically, [id number], [facility] Start Date: 08/24/17 Stop Date: 02/20/18 [...] Maintenance, 12/28/16 13:36:46, Route to Pharmacy Electronically, [id number], [facility] Start Date: 12/28/16 Stop Date: 07/26/17 [...] 04/17/20 13:38:00 EDT, Route to Pharmacy Electronically, [facility], 170.18, cm, 10/16/19 16:13:00 EST, [...]
--- OUTSIDE RECORDS SUMMARY | 2022-10-20 20:34 | XMS_ITS | Continuity of Care Document ---
:1975 Author Organization [facility] Address [address] [place] [address]- Care Team Providers Name Role Phone Karlee REBOLLEDO, Yolie Ford Primary Care Physician En[place] [facility] [place]s): 05/04/22 - 06/05/22 Wound Care [address] [place] [address] Attending Physician: Bill BERTRAND, Irma Santos Admitting Physician: Bill BERTRAND, Irma Santos Allergies, Adverse Reactions, Alerts Substance Reaction Severity Status sulfamethoxazole Active Levaquin itchy Active Bactrim facial swelling Active trimethoprim Sulfamethoxazole Active Other Environmental Allergy1 Act hever metOLazone2 itching, lip swell Active 1Fungus and cockroahes thru allergy zxdjklu9nbszglf, lip swelling Immunizations Not Given Vaccine Date [...] 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 Refills 0, Maintenance, 04/26/19 7:57:16 EDT, Instructions Replace Required Details, Route to Pharmacy E... Start Date: 04/26/19 Status: Orderedazelastine nasal 0.15% spray 1 sprays, Nares, Both, 2 times a day, PRN for allergy symptoms, Maintenance, 01/20/22 20:30:00 EST, [place] Start Date: 01/20/22 Status: OrderedCAM boot CAM [...] 10/11/19 14:00:36 EST, Route to Pharmacy Electronically, [id number], H... Start Date: 10/11/19 Stop Date: 10/25/19 [...] times a day, Maintenance, 01/20/22 20:30:00 EST, [place] Start Date: 01/20/22 Status: OrderedFlovent HFA 220 [...] 10/11/19 14:00:03 EST, Route to Pharmacy Electronically, [id number], [facility]... Start Date: 10/11/19 Stop Date: 10/25/19 [...] Maintenance, 08/24/17 13:15:32, Route to Pharmacy Electronically, [id number], [facility] Start Date: 08/24/17 Stop Date: 02/20/18 [...] Maintenance, 12/28/16 13:36:46, Route to Pharmacy Electronically, [id number], [facility] Start Date: 12/28/16 Stop Date: 07/26/17 Status: Orderedrosuvastatin 40 mg oral tablet 1 tablet = 40 mg, By Mouth, Daily, # 30 tablet, 0 Refills, Maintenance, 05/14/19 11:50:13 EDT, Tablet Start Date: 05/14/19 Status: Orderedspironolactone 25 mg oral tablet 25 mg, 1, tablet, By Mouth, Daily, Please call office to schedule and appt. [phone], # 30 tablet, Refills 1, Tot. Refills 1, Maintenance, 07/28/21 14:31:00 EDT, Route to Pharmacy Electronically, [facility], 170.18, cm, ... Start Date: [...]
--- OUTSIDE RECORDS SUMMARY | 2022-10-20 20:34 | XMS_ITS | Continuity of Care Document ---
:1975 Author Organization [facility] Address [address] [place] [address]- Care Team Providers Name Role Phone Andrey Guillermo MD Primary Care Physician En[place] [facility] [place] Date(s): 03/10/20 - 03/17/20 [facility] [address] [place] [address] [facility] Attending Physician: Sandhya Berger NP Referring Physician: Andrye Guillermo MD Allergies, Adverse Reactions, Alerts Substance Reaction Severity Status sulfamethoxazole Active Levaquin itchy Active Bactrim facial swelling Active trimethoprim Sulfamethoxazole Active Other Environmental Allergy1 Act hever metOLazone2 itching, lip swell Active 1Fungus and cockroahes thru allergy rvywkhy6zpymyhd, lip swelling Immunizations Not Given Vaccine Date [...] 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 Pt no longer comes to our office., [...] 10/11/19 14:00:36 EST, Route to Pharmacy Electronically, [id number], ... Start Date: 10/11/19 Stop Date: 10/25/19 [...] 10/11/19 14:00:03 EST, Route to Pharmacy Electronically, [id number], [facility] Start Date: 10/11/19 Stop Date: 10/25/19 Status: [...] Maintenance, 08/24/17 13:15:32, Route to Pharmacy Electronically, [id number], [facility] Start Date: 08/24/17 [...] Maintenance, 12/28/16 13:36:46, Route to Pharmacy Electronically, [id number], [facility] Start Date: 12/28/16 Stop Date: [...] By Mouth, Daily, # 30 tablet, Refills 0, Tot. Refills 0, Maintenance, 03/10/20 11:15:00 EDT, Route to Pharmacy Electronically, [facility], 170.18, cm, 10/16/19 16:13:00 EST, Height, 90.4, kg, 09/04/19 10:33:00 EDT... Start Date: 03/10/20 Status: Orderedtorsemide 20 mg oral tablet 3 [...]
--- OUTSIDE RECORDS SUMMARY | 2022-10-20 20:34 | XMS_ITS | Continuity of Care Document ---
:1975 Author Organization Wound Care Address [address] [place] [address]- Care Team Providers Name Role Phone Yolie Desir MD Primary Care Physician [phone] [place] [facility] [place] - 03/17/22 Wound Care [address] [place] [address] Attending Physician: Jose Alejandro Webber MD Admitting Physician: Jose Alejandro Webber MD Referring Physician: Yolie Desir MD Allergies, Adverse Reactions, Alerts Substance Reaction Severity Status sulfamethoxazole Active Levaquin itchy Active Bactrim facial swelling Active trimethoprim Sulfamethoxazole Active Other Environmental Allergy1 Act hever metOLazone2 itching, lip swell Active 1Fungus and cockroahes thru allergy [id number], lip swelling Immunizations Not Given Vaccine Date [...] 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 Refills 0, Maintenance, 04/26/19 7:57:16 EDT, Instructions Replace Required Details, Route to Pharmacy E... Start Date: 04/26/19 Status: Orderedazelastine nasal 0.15% spray 1 sprays, Nares, Both, 2 times a day, PRN for allergy symptoms, Maintenance, 01/20/22 20:30:00 EST, [place] Start Date: 01/20/22 Status: OrderedCAM boot CAM [...] 10/11/19 14:00:36 EST, Route to Pharmacy Electronically, [id number], H... Start Date: 10/11/19 Stop Date: 10/25/19 [...] times a day, Maintenance, 01/20/22 20:30:00 EST, [place] Start Date: 01/20/22 Status: OrderedFlovent HFA 220 [...] 10/11/19 14:00:03 EST, Route to Pharmacy Electronically, [id number], [facility]... Start Date: 10/11/19 Stop Date: 10/25/19 Status: [...] Maintenance, 08/24/17 13:15:32, Route to Pharmacy Electronically, [id number], [facility] - Start Date: 08/24/17 Stop Date: [...] Maintenance, 12/28/16 13:36:46, Route to Pharmacy Electronically, [id number], [facility] Start Date: 12/28/16 Stop Date: 07/26/17 Status: Orderedrosuvastatin 40 mg oral tablet 1 tablet = 40 mg, By Mouth, Daily, # 30 tablet, 0 Refills, Maintenance, 05/14/19 11:50:13 EDT, Tablet Start Date: 05/14/19 Status: Orderedspironolactone 25 mg oral tablet 25 mg, 1, tablet, By Mouth, Daily, Please call office to schedule and appt. [phone], # 30 tablet, Refills 1, Tot. Refills 1, Maintenance, 07/28/21 14:31:00 EDT, Route to Pharmacy Electronically, [facility], 170.18, cm, ... Start Date: 07/28/21 [...]
--- OUTSIDE RECORDS SUMMARY | 2022-10-20 20:34 | XMS_ITS | Continuity of Care Document ---
:1975 Author Organization Wound Care Address [address] [place] [address]- Care Team Providers Name Role Phone Yolie Desir MD Primary Care Physician [phone] Encounter [facility] [place] Date(s): 12/21/21 - 01/20/22 Wound Care [address] [place] [address] Attending Physician: Jose Alejandro Webber MD Admitting Physician: Jose Alejandro Webber MD Referring Physician: Yolie Desir MD Allergies, Adverse Reactions, Alerts Substance Reaction Severity Status sulfamethoxazole Active Levaquin itchy Active Bactrim facial swelling Active trimethoprim Sulfamethoxazole Active Other Environmental Allergy1 Act hever metOLazone2 itching, lip swell Active 1Fungus and cockroahes thru allergy [id number], lip swelling Immunizations Not Given Vaccine Date [...] 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 Refills 0, Maintenance, 04/26/19 7:57:16 EDT, Instructions Replace Required Details, Route to Pharmacy E... Start Date: 04/26/19 Status: Orderedazelastine nasal 0.15% spray 1 sprays, Nares, Both, 2 times a day, PRN for allergy symptoms, Maintenance, 01/20/22 20:30:00 EST, [place] Start Date: 01/20/22 Status: OrderedCAM boot CAM [...] 10/11/19 14:00:36 EST, Route to Pharmacy Electronically, [id number], [facility]... Start Date: 10/11/19 Stop Date: 10/25/19 [...] times a day, Maintenance, 01/20/22 20:30:00 EST, [place] Start Date: 01/20/22 Status: OrderedFlovent HFA 220 [...] 10/11/19 14:00:03 EST, Route to Pharmacy Electronically, [id number], [facility]... Start Date: 10/11/19 Stop Date: 10/25/19 [...] Maintenance, 08/24/17 13:15:32, Route to Pharmacy Electronically, [id number], [facility] - Start Date: 08/24/17 Stop [...] Maintenance, 12/28/16 13:36:46, Route to Pharmacy Electronically, [id number], [facility] Start Date: 12/28/16 Stop Date: 07/26/17 Status: Orderedrosuvastatin 40 mg oral tablet 1 tablet = 40 mg, By Mouth, Daily, # 30 tablet, 0 Refills, Maintenance, 05/14/19 11:50:13 EDT, Tablet Start Date: 05/14/19 Status: Orderedspironolactone 25 mg oral tablet 25 mg, 1, tablet, By Mouth, Daily, Please call office to schedule and appt. [phone], # 30 tablet, Refills 1, Tot. Refills 1, Maintenance, 07/28/21 14:31:00 EDT, Route to Pharmacy Electronically, [facility], 170.18, cm, ... Start Date: [...]
--- OUTSIDE RECORDS SUMMARY | 2022-10-20 20:34 | XMS_ITS | Continuity of Care Document ---
:1975 Author Organization Wound Care Address [address] [place] [address]- Care Team Providers Name Role Phone Karlee REBOLLEDO, Yolie Ford Primary Care Physician [phone] Encounter [facility] Date(s): 08/25/21 - 09/30/[address] Wound Care [address] [place] [address] Attending Physician: Lanec White MD Admitting Physician: Lance White MD Referring Physician: Yolie Desir MD Allergies, Adverse Reactions, Alerts Substance Reaction Severity Status sulfamethoxazole Active Levaquin itchy Active Bactrim facial swelling Active trimethoprim Sulfamethoxazole Active Other Environmental Allergy1 Act hever metOLazone2 itching, lip swell Active 1Fungus and cockroahes thru allergy [id number], lip swelling Immunizations Not Given Vaccine Date [...] 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 Pt no longer comes to our office., [...] 10/11/19 14:00:36 EST, Route to Pharmacy Electronically, [id number], [facility]... Start Date: 10/11/19 Stop Date: 10/25/19 [...] 10/11/19 14:00:03 EST, Route to Pharmacy Electronically, [id number], [facility]... Start Date: 10/11/19 Stop [...] Maintenance, 08/24/17 13:15:32, Route to Pharmacy Electronically, [id number], [facility] - Start Date: 08/24/17 Stop Date: [...] Maintenance, 12/28/16 13:36:46, Route to Pharmacy Electronically, [id number], [facility] Start Date: 12/28/16 Stop Date: [...] Please call office to schedule and appt. [phone], # 30 tablet, Refills 1, Tot. Refills 1, Maintenance, 07/28/21 14:31:00 EDT, Route to Pharmacy Electronically, [facility], 170.18, cm, ... Start Date: 07/28/21 [...]
--- OUTSIDE RECORDS SUMMARY | 2022-10-20 20:34 | XMS_ITS | Continuity of Care Document ---
:1975 Author Organization Wound Care Address [address] [place] [address]- Care Team Providers Name Role Phone Karlee REBOLLEDO, Yolie Ford Primary Care Physician [place] [facility] [place] 05/18[place] - 06/20/21 Wound Care [address] [place] [id number] Attending Physician: Lance White MD Admitting Physician: Lance White MD Referring Physician: Yolie Desir MD Allergies, Adverse Reactions, Alerts Substance Reaction Severity Status sulfamethoxazole Active metOLazone1 itching, lip swell Active Levaquin itchy Active Bactrim facial swelling Active trimethoprim Sulfamethoxazole Active Other Environmental Allergy2 Act hever 1itching, lip [id number] and cockroahes thru allergy testing Immunizations Not [...] 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 Start Date: 10/11/19 Stop Date: 10/25/19 [...] 10/11/19 14:00:03 EST, Route to Pharmacy Electronically, [id number], [facility]... Start Date: 10/11/19 Stop Date: [...] Maintenance, 08/24/17 13:15:32, Route to Pharmacy Electronically, [id number], [facility] - Start Date: 08/24/17 Stop [...] Maintenance, 12/28/16 13:36:46, Route to Pharmacy Electronically, [id number], [facility] Start Date: 12/28/16 Stop [...] 16:26:00 EDT, Route to Pharmacy Electronically, [facility], 170.18, cm, 10/16/19 16:13:00 [...]
--- OUTSIDE RECORDS SUMMARY | 2022-10-20 20:34 | XMS_ITS | Continuity of Care Document ---
:1975 Author Organization Wound Care Address [address] [place] [address]- Care Team Providers Name Role Phone Yolie Desir MD Primary Care Physician [phone] Encounter [facility] [place] Date(s): 03/11/21 - 04/16/21 Wound Care [address] [place] [address] Attending Physician: Lance White MD Admitting Physician: Cindy REBOLLEDO, Lance Referring Physician: Yolie Desir MD Allergies, Adverse Reactions, Alerts Substance Reaction Severity Status sulfamethoxazole Active Levaquin itchy Active Bactrim facial swelling Active trimethoprim Sulfamethoxazole Active Other Environmental Allergy1 Act hever metOLazone2 itching, lip swell Active 1Fungus and cockroahes thru allergy [id number], lip swelling Immunizations Not Given Vaccine Date [...] 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 Start Date: 10/11/19 Stop Date: 10/25/19 [...] 10/11/19 14:00:03 EST, Route to Pharmacy Electronically, [id number], [facility] [employer] [facility]... Start Date: 10/11/19 Stop Date: 10/25/19 [...] Maintenance, 08/24/17 13:15:32, Route to Pharmacy Electronically, [id number], [facility] Start Date: 08/24/17 [...] Maintenance, 12/28/16 13:36:46, Route to Pharmacy Electronically, [id number], [facility] Start [...] 04/06/21 16:26:00 EDT, Route to Pharmacy Electronically, [facility], 170.18, cm, 10/16/19 16:13:00 EST, [...]
--- OUTSIDE RECORDS SUMMARY | 2022-10-20 20:34 | XMS_ITS | Continuity of Care Document ---
:1975 Author Organization [facility] Address [address] [place] [address]- Care Team Providers Name Role Phone Karlee REBOLLEDO, Yolie Ford Primary Care Physician [phone] En[place] [facility] [place] Date(s): 04/28/22 - 05/28/[address] [address] Attending Physician: Asya Redd Admitting Physician: AdmAsya butts Referring Physician: AdmtrJules8 Allergies, Adverse Reactions, Alerts Substance Reaction Severity Status sulfamethoxazole Active Other Environmental Allergy1 Act hever metOLazone2 itching, lip swell Active Levaquin itchy Active Bactrim facial swelling Active trimethoprim Sulfamethoxazole Active 1Fungus and cockroahes thru allergy [id number], lip swelling Immunizations Not Given Vaccine Date [...] 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 Refills 0, Maintenance, 04/26/19 7:57:16 EDT, Instructions Replace Required Details, Route to Pharmacy E... Start Date: 04/26/19 Status: Orderedazelastine nasal 0.15% spray 1 sprays, Nares, Both, 2 times a day, PRN for allergy symptoms, Maintenance, 01/20/22 20:30:00 EST, [place] Start Date: 01/20/22 Status: OrderedCAM boot CAM [...] 10/11/19 14:00:36 EST, Route to Pharmacy Electronically, [id number], H... Start Date: 10/11/19 Stop Date: 10/25/19 [...] times a day, Maintenance, 01/20/22 20:30:00 EST, [place] Start Date: 01/20/22 Status: OrderedFlovent HFA 220 mcg/inh inhalation aerosol 1 puffs, Inhalation, 2 times a day, Maintenance, [place] Start Date: 01/20/22 Status: OrderedFLUoxetine 20 mg oral capsule 20 mg, 1, capsule, By Mouth, Daily, Maintenance Start Date: 01/20/22 Status: Orderedfreestyle Whitney CGM reader freestyle Wihtney CGM reader, See Instructions, # 1 application, [...] 10/11/19 14:00:03 EST, Route to Pharmacy Electronically, [id number], [facility] [facility]... Start Date: 10/11/19 Stop Date: [...] Maintenance, 08/24/17 13:15:32, Route to Pharmacy Electronically, [id number], [facility] Start Date: 08/24/17 Stop Date: [...] Maintenance, 12/28/16 13:36:46, Route to Pharmacy Electronically, [id number], [facility] Start Date: 12/28/16 Stop Date: 07/26/17 Status: Orderedrosuvastatin 40 mg oral tablet 1 tablet = 40 mg, By Mouth, Daily, # 30 tablet, 0 Refills, Maintenance, 05/14/19 11:50:13 EDT, Tablet Start Date: 05/14/19 Status: Orderedspironolactone 25 mg oral tablet 25 mg, 1, tablet, By Mouth, Daily, Please call office to schedule and appt. [phone], # 30 tablet, Refills 1, Tot. Refills 1, Maintenance, 07/28/21 14:31:00 EDT, Route to Pharmacy Electronically, [facility], 170.18, cm, ... Start Date: [...]
--- OUTSIDE RECORDS SUMMARY | 2022-10-20 20:35 | XMS_ITS | Continuity of Care Document ---
:1975 Author Organization Wound Care Address [address] [place] [address]- Care Team Providers Name Role Phone Yolie Desir MD Primary Care Physician [phone] [id number] Date(s): 07/13/22 - 08/14/[address] Wound Care [address] [place] [address] Attending Physician: Kyle BERTRAND, Char Donis Admitting Physician: Kyle BERTRAND, Char Donis Referring Physician: Yolie Desir MD Allergies, Adverse Reactions, Alerts Substance Reaction Severity Status sulfamethoxazole Active Levaquin itchy Active Bactrim facial swelling Active trimethoprim Sulfamethoxazole Active Other Environmental Allergy1 Act ehver metOLazone2 itching, lip swell Active 1Fungus and cockroahes thru allergy [id number], lip swelling Immunizations Not Given Vaccine Date [...] 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 Refills 0, Maintenance, 04/26/19 7:57:16 EDT, Instructions Replace Required Details, Route to Pharmacy E... Start Date: 04/26/19 Status: Orderedazelastine nasal 0.15% spray 1 sprays, Nares, Both, 2 times a day, PRN for allergy symptoms, Maintenance, 01/20/22 20:30:00 EST, [place] Start Date: 01/20/22 Status: OrderedCAM boot CAM [...] 10/11/19 14:00:36 EST, Route to Pharmacy Electronically, [id number], [facility]... Start Date: 10/11/19 Stop Date: 10/25/19 [...] times a day, Maintenance, 01/20/22 20:30:00 EST, [place] Start Date: 01/20/22 Status: OrderedFlovent HFA 220 [...] 10/11/19 14:00:03 EST, Route to Pharmacy Electronically, [id number], [facility]... Start Date: 10/11/19 Stop Date: [...] Maintenance, 08/24/17 13:15:32, Route to Pharmacy Electronically, [id number], [facility] - Start Date: 08/24/17 Stop [...] Maintenance, 12/28/16 13:36:46, Route to Pharmacy Electronically, [id number], [facility] Start Date: 12/28/16 Stop Date: 07/26/17 Status: Orderedrosuvastatin 40 mg oral tablet 1 tablet = 40 mg, By Mouth, Daily, # 30 tablet, 0 Refills, Maintenance, 05/14/19 11:50:13 EDT, Tablet Start Date: 05/14/19 Status: Orderedspironolactone 25 mg oral tablet 25 mg, 1, tablet, By Mouth, Daily, Please call office to schedule and appt. [phone], # 30 tablet, Refills 1, Tot. Refills 1, Maintenance, 07/28/21 14:31:00 EDT, Route to Pharmacy Electronically, [facility], 170.18, cm, ... Start Date: [...] Team PersonnelName: Karlee REBOLLEDO, Yolie Ford Address: [address] [place] [address]
[2022-10-20 21:36] VITALS: BP 121/76; PULSE 71; RESP 18; TEMP 36.4; O2SAT 96
== END 2022-10-20 22:13 | disposition left against medical advice (07) ==
PROVIDERS: Emergency Medicine Emergency Medical Services; Emergency Provider Emergency Medicine
DX: L03.116 Cellulitis of left lower limb (principal); E11.69 Type 2 diabetes mellitus with other specified complication; I10 Essential (primary) hypertension; E78.5 Hyperlipidemia, unspecified; Z79.4 Long term (current) use of insulin; Z79.899 Other long term (current) drug therapy; Z79.82 Long term (current) use of aspirin
CPT/HCPCS: 36415; 80053; 85025; 85610; 85652; 85730; 86140; 87040; 99283

== ENCOUNTER 2022-10-21 07:58 | Outpatient (RCR) | payer MEDICAID, SELFPAY | END 2023-05-05 15:02 | disposition home or self-care (01) | LOC: HO.WCC 07:58 | PROVIDERS: PCP Internal Medicine; Visit Provider Surgery | DX: E11.621 Type 2 diabetes mellitus with foot ulcer (principal); L97.522 Non-pressure chronic ulcer of other part of left foot with fat layer exposed; N17.9 Acute kidney failure, unspecified | CPT/HCPCS: 11042; 11043; 15275; 97597; 99204; 99212; 99214; Q4187 ==

== ENCOUNTER 2022-10-21 09:47 | Emergency (ER) | payer MEDICAID, SELFPAY ==
[2022-10-21 10:07] VITALS: BP 117/69; PULSE 80; RESP 20; TEMP 36.8; O2SAT 100; BMI 31.0
--- NOTE | 2022-10-21 12:10 | ED_ITS ---
HPI - General Adult General Chief complaint: Wound/Laceration Stated complaint: dressing change and medication Time Seen by Provider: 10/21/22 11:42 History of Present Illness HPI narrative: Amber the day before Ramon received a call on Ramon to stop taking vanco until Tuesday. Call the office Tuesday, and she received no call back. Yesterday seen by PCP, who contacted to [facility], was advised to come to ED for repeat blood work and 1st dose of daptomycin. Are any was completed. Labs were obtained. Patient eloped from the waiting room after prolonged wait time. Edu beltran, advised of ALIN. States that she will not stay in the hospital is agreeable to have labs repeated today and received 1st dose of antibiotic but then she is leaving. Related Data Home Medications Medication Instructions Recorded Confirmed aspirin 81 mg tablet,delayed 81 mg PO DAILY@1700 10/03/20 10/01/22 release (Adult Aspirin Regimen) clopidogrel 75 mg tablet 75 mg PO DAILY@72910/03/20 10/01/22 digoxin 125 mcg (0.125 mg) tablet 125 mcg PO MOWEFR@72910/03/20 10/01/22 isosorbide mononitrate 30 mg 30 mg PO DAILY@72910/03/20 10/01/22 tablet,extended release 24 hr lisinopril 10 mg tablet 10 mg PO DAILY@72910/03/20 10/01/22 pantoprazole 40 mg tablet,delayed 40 mg PO DAILY@72910/03/20 10/01/22 release spironolactone 25 mg tablet 25 mg PO DAILY@72910/03/20 10/01/22 torsemide 20 mg tablet 60 mg PO BID 10/03/20 10/01/22 bempedoic acid 180 mg tablet 180 mg PO DAILY@72910/01/22 10/01/22 (Nexletol) doxepin 10 mg capsule 10 mg PO BEDTIME 10/01/22 10/01/22 ezetimibe 10 mg tablet 10 mg PO DAILY@72910/01/22 10/01/22 fluoxetine 20 mg capsule 20 mg PO DAILY@72910/01/22 10/01/22 fluticasone 250 mcg-salmeterol 50 1 puff inhalation BID 11/11/22 11/11/22 mcg/dose blistr powdr for inhalation (Advair Diskus) fluticasone propionate 50 1 - 2 spray intranasal DAILY PRN 10/01/22 10/01/22 mcg/actuation nasal Congestion spray,suspension gabapentin 100 mg capsule 200 mg PO TID 10/01/22 10/01/22 insulin lispro 100 unit/mL See Rx Instructions .Route .COMPLEX 10/01/22 10/01/22 subcutaneous solution (Humalog U-100 Insulin) lamotrigine 100 mg tablet 100 mg PO BEDTIME 10/01/22 10/01/22 lisinopril 5 mg tablet 5 mg PO DAILY@1200 10/01/22 10/01/22 melatonin 5 mg tablet 5 mg PO BEDTIME 10/01/22 10/01/22 Previous Rx's Medication Instructions Recorded omalizumab 150 mg subcutaneous 300 mg subcut Q2W 28 days #4 ea 07/05/22 solution (Xolair) rosuvastatin 40 mg tablet 40 mg PO BEDTIME #30 tabs 07/29/22 insulin glargine 100 unit/mL (3 50 unit (0.5 mL) subcut DAILY #15 08/25/22 mL) subcutaneous pen (Lantus mL Solostar U-100 Insulin) ferrous gluconate 324 mg (38 mg 324 mg PO DAILY@1200,1700 #1 tab 10/05/22 iron) tablet vancomycin 750 mg intravenous 750 mg IV Q12H #1 ea 10/07/22 solution Allergies Allergy/AdvReac Type Severity Reaction Status Date / Time sulfamethoxazole Allergy Severe FACIAL Verified 07/13/22 10:40 [From BACTRIM] SWELLING trimethoprim [From BACTRIM] Allergy Severe FACIAL Verified 07/13/22 10:40 SWELLING levofloxacin [From LEVAQUIN] Allergy Intermediate REDNESS, Verified 07/13/22 10:40 SWELLING ITCHINESS AT IV SITE Review of Systems Review of Systems: Constitutional: No weight loss, fever, chills, weakness or fatigue. Skin: No rash or itching. Positive left foot wound Cardiovascular: No chest pain, chest pressure or chest discomfort. No palpitations or pedal edema. Respiratory: No shortness of breath, cough or sputum production. Gastrointestinal: No anorexia, nausea, vomiting or diarrhea. No abdominal pain Genitourinary: No burning micturition. No urinary frequency or incontinence. Musculoskeletal: No muscle pain, back pain, joint pain or stiffness. Psychiatric: No depression or anxiety. Yes all other systems are reviewed and are negative [facility] Past Medical History Attestation statement: The following information was validated with the patient. Source: old records reviewed Medical History Anxiety Asthma CAD (coronary artery disease) Depression DM2 (diabetes mellitus, type 2) Essential hypertension Hyperlipidemia LDL goal <100 Obesity due to excess calories DEVYN (obstructive sleep apnea) Osteomyelitis Proteinuria Retinopathy Type 2 diabetes mellitus with diabetic polyneuropathy Type 2 diabetes mellitus with hyperglycemia, with long-term current use of insulin Type 2 diabetes mellitus with other diabetic kidney complication Wound of left foot Surgical History Hx of coronary artery bypass surgery Family History Family History Maternal Grandmother Diabetes Brother Diabetes Social History Social History Household Members: Family Household Members Other:: 1 Housing: Apartment Alcohol intake: never Patient Tobacco Use Status: Never used Tobacco Second Hand Smoke Exposure: No Advance Directives: No service: No Current occupational status: unemployed Physical Exam ED Vital Signs: Vital Signs - 24 hr 10/21/22 10:07 Temperature 98.3 F Pulse Rate 80 Respiratory Rate 20 Blood Pressure 117/69 Pulse Oximetry 100 Oxygen Delivery Method Room Air BMI result Body Mass Index 31.0 Appearance: Alert.?Oriented to person, place and time. No acute distress.?Normal affect. Eyes: Pupils equal, round and reactive to light.? ENT: Pharynx normal.?? Neck: Normal inspection.? Neck supple.?? CVS: Heart sounds normal. Normal heart rate and rhythm.? Pulses normal.?? Respiratory: No respiratory distress.? Lung sounds clear to auscultation bilaterally?? Abdomen: Soft and non-tender. Normoactive bowel sounds. Skin: Skin warm and dry.? Normal skin color.? Extremities: No lower extremity edema.? No calf ttp? Neuro: Moves all extremities spontaneously. Sensation intact bilaterally. No focal neuro deficits. Ambulates with normal steady gait. Course Course Course Narrative: Patient is a 47-year-old female with a past medical history of CAD status post CABG, insulin-dependent diabetes with neuropathy, mixed hyperlipidemia, hypertension, obstructive sleep apnea who presents emergency department for evaluation of labs/to receive IV antibiotic. She currently has a PICC line in place to the right upper extremity and is followed by infectious disease Dr. Muñiz for osteomyelitis of the left foot with abscess. Previously receiving IV vancomycin, recently stopped assumingly due to elevated trough and ALIN. Reevaluation(s) Reevaluation #1: CBC reveals a normocytic anemia consistent with baseline not needing transfusion criteria. No leukocytosis, no left shift. CMP reveals persistent ALIN BUN 28 and creatinine 1.74 for, which is improved from labs obtained yesterday indicating a BUN of 29 and creatinine 2.54. Creatinine clearance 45, EGFR 31, no reason to renally adjust dosing of daptomycin. Consulted with Infectious Disease, Dr. Muñiz, patient to receive first dose in ED, daptomycin 6 mg/kg at actual body weight of with dosage of 500 mg IV daily, in addition will give 1L NS IVF for ALIN, most recent echo 09/2022 low normal LVeF, and she will follow-up in office and have outpatient infusions as previously scheduled. Time: 13:15 Reevaluation #2: Difficulty obtaining daptomycin IV from pharmacy, at this time has been initiated. PICC line dressing was changed. Case management involved to arrange for [facility] to be able to perform in home infusions as she was receiving previously. Discussed with patient, plan of care for discharge home, worrisome send symptoms to return back to the emergency department for. All questions have been answered. Time: 17:46 Medications Administered Discontinued Medications Generic Name Dose Route Start Last Admin Trade Name Freq PRN Reason Stop Dose Admin Daptomycin 500 mg/ Sodium 60 mls @ 100 mls/hr 10/21/22 13:20 10/21/22 17:40 Chloride IV 10/21/22 13:55 100 mls/hr ONCE ONE Administration Sodium Chloride 1,000 mls @ 999 mls/hr 10/21/22 13:45 10/21/22 17:40 Ns IV 10/21/22 14:45 999 mls/hr .Q1H1M PHI Administration Medical Decision Making Lab Data Result diagrams: 10/21/22 12:28 10/21/22 12:28 Labs: Lab Results 1210/21/22 10/21/22 Range/Units 12:28 12:28 12:28 WBC 6.4 (4.8-10.8) X10*3/uL RBC 3.88 L (4.20-5.50) X10*6/uL Hgb 11.0 L (12.0-16.0) g/dl Hct 34.6 L (37.0-47.0) % MCV 89.2 (80.0-98.0) fL MCH 28.4 (27.0-33.0) pg MCHC 31.8 (31.0-35.0) g/dl RDW 13.1 (11.0-16.0) % Plt Count 338 (160-400) X10*3/uL MPV 9.9 (9.4-12.3) fL Immature Gran % (Auto) 0.3 (0.0-0.4) % Neut % (Auto) 59.6 (45-73) % Lymph % (Auto) 21.4 (20-40) % [place] % (Auto) 7.0 (2-11) % Eos % (Auto) 11.1 H (0-4) % Baso % (Auto) 0.6 (0-2) % Lymph # (Auto) 1.4 (1.2-4.9) X10*3/uL [place] # (Auto) 0.5 (0.1-1.2) X10*3/uL Eos # (Auto) 0.7 H (0.0-0.4) X10*3/uL Baso # (Auto) 0.0 (0.0-0.2) X10*3/uL Abs Immat Gran (auto) 0.02 (0.00-0.03) X10*3/uL Absolute Neuts (auto) 3.8 (2.0-8.3) x10*3/uL Absolute Nucleated RBC 0.000 (0.0-0.012) X10*3/uL Nucleated RBC % (auto) 0.0 (0.0-0.2) /100WBC Sodium 137 (135-145) mmol/L Potassium 4.1 (3.3-5.1) mmol/L Chloride 99 (96-108) mmol/L Carbon Dioxide 31 H (22-29) mmol/L Anion Gap 11 L (12-20) BUN 28 H (9-16) mg/dL Creatinine 1.74 H (0.5-1.4) mg/dL Estim Creat Clear Calc 45.0 Estimated GFR 31 Random Glucose 142 H (60-115) mg/dL Lactic Acid (0.5-2.0) mmol/L Calcium 10.1 D (8.4-10.2) mg/dL Magnesium 2.1 (1.6-2.6) mg/dL Total Bilirubin 0.4 (0.0-1.0) mg/dL Direct Bilirubin < 0.2 (0.0-0.5) mg/dL AST 13 (5-31) U/L ALT 20 (0-31) U/L Alkaline Phosphatase 133 H (39-117) U/L Total Protein 8.4 H (6.5-8.0) g/dL Albumin 4.5 (3.5-5.0) g/dL Vancomycin Trough (10.0-20.0) mcg/mL COVID-19 (ERICH) Negative (Negative) COVID-19 Clin Com See Note 10/21/22 10/21/22 Range/Units 12:28 12:28 WBC (4.8-10.8) X10*3/uL RBC (4.20-5.50) X10*6/uL Hgb (12.0-16.0) g/dl Hct (37.0-47.0) % MCV (80.0-98.0) fL MCH (27.0-33.0) pg MCHC (31.0-35.0) g/dl RDW (11.0-16.0) % Plt Count (160-400) X10*3/uL MPV (9.4-12.3) fL Immature Gran % (Auto) (0.0-0.4) % Neut % (Auto) (45-73) % Lymph % (Auto) (20-40) % [place] % (Auto) (2-11) % Eos % (Auto) (0-4) % Baso % (Auto) (0-2) % Lymph # (Auto) (1.2-4.9) X10*3/uL [place] # (Auto) (0.1-1.2) X10*3/uL Eos # (Auto) (0.0-0.4) X10*3/uL Baso # (Auto) (0.0-0.2) X10*3/uL Abs Immat Gran (auto) (0.00-0.03) X10*3/uL Absolute Neuts (auto) (2.0-8.3) x10*3/uL Absolute Nucleated RBC (0.0-0.012) X10*3/uL Nucleated RBC % (auto) (0.0-0.2) /100WBC Sodium (135-145) mmol/L Potassium (3.3-5.1) mmol/L Chloride (96-108) mmol/L Carbon Dioxide (22-29) mmol/L Anion Gap (12-20) BUN (9-16) mg/dL Creatinine (0.5-1.4) mg/dL Estim Creat Clear Calc Estimated GFR Random Glucose (60-115) mg/dL Lactic Acid 0.9 (0.5-2.0) mmol/L Calcium (8.4-10.2) mg/dL Magnesium (1.6-2.6) mg/dL Total Bilirubin (0.0-1.0) mg/dL Direct Bilirubin (0.0-0.5) mg/dL AST (5-31) U/L ALT (0-31) U/L Alkaline Phosphatase (39-117) U/L Total Protein (6.5-8.0) g/dL Albumin (3.5-5.0) g/dL Vancomycin Trough < 2.0 L (10.0-20.0) mcg/mL COVID-19 (ERICH) (Negative) COVID-19 Clin Com Discharge Plan Discharge Clinical Impression: Acute kidney injury Osteomyelitis Qualifiers: Osteomyelitis location: foot Laterality: left Patient Disposition: Home, Self-Care Instructions: Acute Kidney Injury (DC), Osteomyelitis (ED) Additional Instructions: As discussed, the visiting nurse service will present to your home tomorrow to provide daptomycin infusions through your PICC line. You need to follow-up outpatient with Infectious Disease as well as your primary care provider. Please be sure to stay well hydrated, drink plenty of fluids. Return to the emergency department with any new or worsening symptoms or concerns such as chest pain, palpitations, shortness of breath, difficulty breathing, nausea, vomiting, abdominal pain, painful urination, inability to urinate, blood in the urine, back pain, fevers, chills, severe worsening pain to the foot, worsening swelling, drainage from the foot. Prescriptions: No Action Xolair 150 mg recon soln 300 mg subcut Q2W 28 Days Qty: 4 12RF Rx Instructions: requires multiple injection sites; do not exceed 150 mg per injection site rosuvastatin 40 mg tablet 40 mg PO BEDTIME Qty: 30 4RF Lantus Solostar U-100 Insulin 100 unit/mL (3 mL) insulin pen 50 unit subcut DAILY Qty: 15 3RF fluticasone propion-salmeterol [Advair Diskus] 250-50 mcg/dose blister with device 1 puff inhalation BID doxepin 10 mg capsule 10 mg PO BEDTIME lisinopril 5 mg tablet 5 mg PO DAILY@1200 Rx Instructions: TO BE TAKEN AT 1200 gabapentin 100 mg capsule 200 mg PO TID fluoxetine 20 mg capsule 20 mg PO DAILY@0730 fluticasone propionate 50 mcg/actuation spray,suspension 1 - 2 spray intranasal DAILY PRN (Reason: Congestion) lamotrigine 100 mg tablet 100 mg PO BEDTIME melatonin 5 mg tablet 5 mg PO BEDTIME Nexletol 180 mg tablet 180 mg PO DAILY@0730 insulin lispro [Humalog U-100 Insulin] 100 unit/mL solution See Rx Instructions .ROUTE .COMPLEX Rx Instructions: up to 150 units subcut daily via pump; ezetimibe 10 mg tablet 10 mg PO DAILY@0730 ferrous gluconate 324 mg (38 mg iron) tablet 324 mg PO DAILY@1200,1700 Qty: 1 0RF vancomycin 750 mg recon soln 750 mg IV Q12H Qty: 1 0RF spironolactone 25 mg tablet 25 mg PO DAILY@0730 torsemide 20 mg tablet 60 mg PO BID pantoprazole 40 mg tablet,delayed release (DR/EC) 40 mg PO DAILY@0730 aspirin [Adult Aspirin Regimen] 81 mg tablet,delayed release (DR/EC) 81 mg PO DAILY@1700 clopidogrel 75 mg tablet 75 mg PO DAILY@0730 isosorbide mononitrate 30 mg tablet extended release 24 hr 30 mg PO DAILY@0730 digoxin 125 mcg (0.125 mg) tablet 125 mcg PO MOWEFR@0730 lisinopril 10 mg tablet 10 mg PO DAILY@729 Referrals: Jantet Muñiz MD [Physician] - Carmen Moseley [Primary Care Provider] - Print Language: Slovenian
[2022-10-21 12:33] LABS: MANUAL DIFF FLAG NO
[2022-10-21 12:37] LABS: Basophils Percent Auto 0.6 % (0-2); Eosinophils Absolute Auto 0.7 X10*3/uL (0.0-0.4); Eosinophils Percent Auto 11.1 % (0-4); Hematocrit 34.6 % (37.0-47.0); Imm Gran Abs Auto 0.02 X10*3/uL (0.00-0.03); Imm Gran Pct Auto 0.3 % (0.0-0.4); Lymphocytes Absolute Auto 1.4 X10*3/uL (1.2-4.9); Lymphocytes Percent Auto 21.4 % (20-40); Mean Corpuscular HGB Conc 31.8 g/dl (31.0-35.0); Mean Corpuscular Hemoglobin 28.4 pg (27.0-33.0); Mean Corpuscular Volume 89.2 fL (80.0-98.0); Mean Platelet Volume 9.9 fL (9.4-12.3); Monocytes Absolute Auto 0.5 X10*3/uL (0.1-1.2); Neutrophils Absolute Auto 3.8 x10*3/uL (2.0-8.3); Neutrophils Percent Auto 59.6 % (45-73); Platelet Count 338 X10*3/uL (160-400); Red Blood Count 3.88 X10*6/uL (4.20-5.50); Red Cell Distribution Width 13.1 % (11.0-16.0); White Blood Count 6.4 X10*3/uL (4.8-10.8)
[2022-10-21 12:46] LABS: Lactic Acid 0.9 mmol/L (0.5-2.0)
[2022-10-21 12:49] LABS: COVID-19 Test Negative (Negative); IDNOW Serial# BCCEAD1C
[2022-10-21 12:57] LABS: Vancomycin Trough < 2.0 mcg/mL (10.0-20.0)
[2022-10-21 12:59] LABS: Alanine Aminotransferase 20 U/L (0-31); Albumin Level 4.5 g/dL (3.5-5.0); Alkaline Phosphatase 133 U/L (39-117); Anion Gap 11 (12-20); Aspartate Amino Transferase 13 U/L (5-31); Bilirubin Direct < 0.2 mg/dL (0.0-0.5); Bilirubin Total 0.4 mg/dL (0.0-1.0); Blood Urea Nitrogen 28 mg/dL (9-16); Calcium 10.1 mg/dL (8.4-10.2); Carbon Dioxide 31 mmol/L (22-29); Chloride 99 mmol/L (96-108); Estimated Glomerular Filt Rate 31; Glucose Random 142 mg/dL (60-115); Magnesium 2.1 mg/dL (1.6-2.6); Potassium 4.1 mmol/L (3.3-5.1); Sodium 137 mmol/L (135-145); Total Protein 8.4 g/dL (6.5-8.0)
--- NOTE | 2022-10-21 14:31 | PC.NURSE ---
Awaiting antibiotics from pharmacy
--- NOTE | 2022-10-21 16:38 | MHC.CM.ED ---
Pt active with [facility] and [facility] for home IV antibiotic therapy for osteomyelitis. Vancomycin discontinued d/t ALIN. First dose of Daptomycin 500 mg IV daily given today. Referrals to both [facility]. Request to [facility] to call Dr. Muñiz ([phone]) for medication orders. Met with pt with client care manager to review plan of care.
[2022-10-21] MEDS: 0.9 % Sodium Chloride 1,000 ML 999 ML IV (17:40)
[2022-10-21] MEDS: DAPTOmycin 500 MG in 0.9 % Sodium Chloride 50 ML 100 MG IV (17:40)
--- NOTE | 2022-10-21 17:46 | PC.NURSE ---
PICC line dressing changed, antibiotics infusing.
== END 2022-10-21 18:32 | disposition home or self-care (01) ==
PROVIDERS: Physician Assistant; Emergency Provider Emergency Medicine
DX: N17.9 Acute kidney failure, unspecified (principal); E11.69 Type 2 diabetes mellitus with other specified complication; M86.9 Osteomyelitis, unspecified; D64.9 Anemia, unspecified; Z20.822 Contact with and (suspected) exposure to COVID-19; E11.40 Type 2 diabetes mellitus with diabetic neuropathy, unspecified; I10 Essential (primary) hypertension; E78.5 Hyperlipidemia, unspecified; E66.9 Obesity, unspecified; Z68.31 Body mass index [BMI] 31.0-31.9, adult; Z79.4 Long term (current) use of insulin; Z79.02 Long term (current) use of antithrombotics/antiplatelets; Z79.899 Other long term (current) drug therapy
CPT/HCPCS: 36415; 80048; 80076; 80202; 83605; 83735; 85025; 87040; 87635; 96361; 96365; 99284; J0878

== ENCOUNTER 2022-10-25 14:52 | Outpatient (REF) | payer MEDICAID, SELFPAY ==
[2022-10-25 15:25] LABS: MANUAL DIFF FLAG NO
[2022-10-25 15:48] LABS: Basophils Percent Auto 0.5 % (0-2); Eosinophils Absolute Auto 0.7 X10*3/uL (0.0-0.4); Eosinophils Percent Auto 9.8 % (0-4); Hematocrit 33.2 % (37.0-47.0); Hemoglobin 10.8 g/dl (12.0-16.0); Imm Gran Abs Auto 0.02 X10*3/uL (0.00-0.03); Imm Gran Pct Auto 0.3 % (0.0-0.4); Lymphocytes Absolute Auto 1.8 X10*3/uL (1.2-4.9); Lymphocytes Percent Auto 26.5 % (20-40); Mean Corpuscular HGB Conc 32.5 g/dl (31.0-35.0); Mean Platelet Volume 10.5 fL (9.4-12.3); Monocytes Absolute Auto 0.3 X10*3/uL (0.1-1.2); Neutrophils Absolute Auto 3.9 x10*3/uL (2.0-8.3); Neutrophils Percent Auto 57.9 % (45-73); Platelet Count 310 X10*3/uL (160-400); Red Blood Count 3.73 X10*6/uL (4.20-5.50); Red Cell Distribution Width 13.4 % (11.0-16.0); White Blood Count 6.6 X10*3/uL (4.8-10.8)
[2022-10-25 16:32] LABS: Estimated Glomerular Filt Rate 27
[2022-10-28 17:18] LABS: CK-BB None Detected (None Detected); CK-MB 0 % (<5); CK-MM 100 % (95-100); Creatine Kinase,Total,Serum 86 U/L (29-143)
== END 2022-10-25 14:53 | disposition home or self-care (01) ==
LOC: HO.LAB 14:52
PROVIDERS: PCP Internal Medicine; Visit Provider Internal Medicine
DX: E11.29 Type 2 diabetes mellitus with other diabetic kidney complication (principal); E11.69 Type 2 diabetes mellitus with other specified complication; M86.9 Osteomyelitis, unspecified; Z79.01 Long term (current) use of anticoagulants
CPT/HCPCS: 36415; 82552; 82565; 85025; 99212

== ENCOUNTER 2022-10-27 10:48 | Outpatient (REF) | payer MEDICAID, SELFPAY ==
[2022-10-27 10:52] LABS: MANUAL DIFF FLAG NO
[2022-10-27 11:00] LABS: Basophils Absolute Auto 0.1 X10*3/uL (0.0-0.2); Basophils Percent Auto 0.8 % (0-2); Eosinophils Absolute Auto 0.8 X10*3/uL (0.0-0.4); Eosinophils Percent Auto 10.1 % (0-4); Hematocrit 34.9 % (37.0-47.0); Hemoglobin 11.4 g/dl (12.0-16.0); Imm Gran Abs Auto 0.02 X10*3/uL (0.00-0.03); Imm Gran Pct Auto 0.3 % (0.0-0.4); Lymphocytes Absolute Auto 2.2 X10*3/uL (1.2-4.9); Lymphocytes Percent Auto 28.1 % (20-40); Mean Corpuscular HGB Conc 32.7 g/dl (31.0-35.0); Mean Corpuscular Hemoglobin 28.8 pg (27.0-33.0); Mean Corpuscular Volume 88.1 fL (80.0-98.0); Mean Platelet Volume 10.8 fL (9.4-12.3); Monocytes Absolute Auto 0.5 X10*3/uL (0.1-1.2); Monocytes Percent Auto 6.5 % (2-11); Neutrophils Absolute Auto 4.2 x10*3/uL (2.0-8.3); Neutrophils Percent Auto 54.2 % (45-73); Platelet Count 325 X10*3/uL (160-400); Red Blood Count 3.96 X10*6/uL (4.20-5.50); Red Cell Distribution Width 13.3 % (11.0-16.0); White Blood Count 7.8 X10*3/uL (4.8-10.8)
[2022-10-27 12:42] LABS: Alanine Aminotransferase 18 U/L (0-31); Albumin Level 4.4 g/dL (3.5-5.0); Alkaline Phosphatase 132 U/L (39-117); Aspartate Amino Transferase 15 U/L (5-31); Bilirubin Direct < 0.2 mg/dL (0.0-0.5); Bilirubin Total 0.3 mg/dL (0.0-1.0); Blood Urea Nitrogen 26 mg/dL (9-16); C Reactive Protein 0.76 mg/dL (< or = 0.50); Estimated Glomerular Filt Rate 40
== END 2022-10-27 10:49 | disposition home or self-care (01) ==
LOC: HO.HVNA 10:48
PROVIDERS: Visit Provider Internal Medicine
DX: M86.172 Other acute osteomyelitis, left ankle and foot (principal)
CPT/HCPCS: 36415; 80076; 82550; 82565; 84520; 85025; 86140

== ENCOUNTER 2022-11-01 11:19 | Outpatient (REF) | payer MEDICAID, SELFPAY ==
[2022-11-01 11:46] LABS: MANUAL DIFF FLAG NO
[2022-11-01 12:32] LABS: Basophils Percent Auto 0.3 % (0-2); Eosinophils Absolute Auto 0.5 X10*3/uL (0.0-0.4); Eosinophils Percent Auto 5.8 % (0-4); Hematocrit 31.7 % (37.0-47.0); Hemoglobin 10.3 g/dl (12.0-16.0); Imm Gran Abs Auto 0.02 X10*3/uL (0.00-0.03); Imm Gran Pct Auto 0.3 % (0.0-0.4); Lymphocytes Absolute Auto 1.5 X10*3/uL (1.2-4.9); Lymphocytes Percent Auto 19.4 % (20-40); Mean Corpuscular HGB Conc 32.5 g/dl (31.0-35.0); Mean Corpuscular Hemoglobin 28.8 pg (27.0-33.0); Mean Corpuscular Volume 88.5 fL (80.0-98.0); Mean Platelet Volume 11.4 fL (9.4-12.3); Monocytes Absolute Auto 0.6 X10*3/uL (0.1-1.2); Neutrophils Absolute Auto 5.3 x10*3/uL (2.0-8.3); Neutrophils Percent Auto 67.2 % (45-73); Platelet Count 243 X10*3/uL (160-400); Red Blood Count 3.58 X10*6/uL (4.20-5.50); Red Cell Distribution Width 13.6 % (11.0-16.0); White Blood Count 7.8 X10*3/uL (4.8-10.8)
[2022-11-01 12:51] LABS: Creatinine Urine 40.58 mg/dL; Microalbum/Creatinine Ratio Ur 125.6 ug/mg cr
[2022-11-01 13:00] LABS: Estimated Glomerular Filt Rate 35
[2022-11-01 13:06] LABS: Anion Gap 12 (12-20); Blood Urea Nitrogen 38 mg/dL (9-16); Calcium 9.8 mg/dL (8.4-10.2); Carbon Dioxide 28 mmol/L (22-29); Chloride 100 mmol/L (96-108); Cholesterol 191 mg/dL; Estimated Glomerular Filt Rate 36; Glucose Fasting 288 mg/dL (60-99); HDL Cholesterol 38 mg/dL; LDL Cholesterol Calculated 121 mg/dl; Potassium 4.3 mmol/L (3.3-5.1); Sodium 136 mmol/L (135-145); Triglycerides 164 mg/dL
[2022-11-03 07:08] LABS: Immunoglobulin E 205 kU/L (<OR=114)
[2022-11-05 12:28] LABS: CK-BB None Detected (None Detected); CK-MB 0 % (<5); CK-MM 100 % (95-100); Creatine Kinase,Total,Serum 140 U/L (29-143)
== END 2022-11-01 11:20 | disposition home or self-care (01) ==
LOC: HO.LAB 11:19
PROVIDERS: Internal Medicine Endocrinology, Diabetes & Metabolism; Internal Medicine Pulmonary Disease; PCP Internal Medicine; Visit Provider Internal Medicine
DX: E11.29 Type 2 diabetes mellitus with other diabetic kidney complication (principal); E11.65 Type 2 diabetes mellitus with hyperglycemia; Z91.09 Other allergy status, other than to drugs and biological substances; Z79.4 Long term (current) use of insulin
CPT/HCPCS: 36415; 80048; 80061; 82043; 82552; 82565; 82785; 85025

== ENCOUNTER 2022-11-08 14:04 | Outpatient (REF) | payer MEDICAID, SELFPAY ==
--- NOTE | 2022-12-01 14:28 | HO.HEMONCSCH ---
Nurse confirmed by phone w/ ID that pt has completed her IV abx, is scheduled to have PICC removed the following day, on 12/02/22, will not need PICC dsg changed today. Nurse canceled appt for PICC dsg change.
== END 2022-11-26 14:31 | disposition home or self-care (01) ==
LOC: CF 14:04
PROVIDERS: PCP Internal Medicine; Visit Provider Internal Medicine
DX: M86.9 Osteomyelitis, unspecified (principal)
CPT/HCPCS: 99212

== ENCOUNTER 2022-11-26 14:52 | Outpatient (REF) | payer MEDICAID, SELFPAY | END 2022-11-26 14:53 | disposition home or self-care (01) | LOC: HO.LAB 14:52 | PROVIDERS: Absent Provider Internal Medicine; PCP Internal Medicine; Visit Provider Internal Medicine Endocrinology, Diabetes & Metabolism | DX: E11.29 Type 2 diabetes mellitus with other diabetic kidney complication (principal) | CPT/HCPCS: 82947; 83036; 99212 ==

== ENCOUNTER → 2022-11-29 12:59 | Outpatient (BNVA) | payer MEDICAID, SELFPAY | PROVIDERS: Visit Provider Internal Medicine | DX: M86.9 Osteomyelitis, unspecified (principal) | CPT/HCPCS: 99212 ==

== ENCOUNTER → 2022-11-30 11:09 | Outpatient (BNVA) | payer MEDICAID, SELFPAY | PROVIDERS: PCP Internal Medicine; Visit Provider Registered Nurse Diabetes Educator | DX: E11.29 Type 2 diabetes mellitus with other diabetic kidney complication (principal); Z79.4 Long term (current) use of insulin | CPT/HCPCS: 99211 ==

== ENCOUNTER 2023-01-05 14:48 | Outpatient (REF) | payer MEDICAID, SELFPAY ==
[2023-01-05 16:12] LABS: Anion Gap 16 (12-20); Blood Urea Nitrogen 24 mg/dL (9-16); Calcium 10.1 mg/dL (8.4-10.2); Carbon Dioxide 29 mmol/L (22-29); Chloride 102 mmol/L (96-108); Estimated Glomerular Filt Rate 44; Potassium 4.2 mmol/L (3.3-5.1); Sodium 143 mmol/L (135-145)
[2023-01-05 16:14] LABS: Estimated Glomerular Filt Rate 43
[2023-01-09 21:19] LABS: CK-BB None Detected (None Detected); CK-MB 0 % (<5); CK-MM 97 % (95-100); Creatine Kinase Isoenzyme Itrp MACRO CK TYPE 1; Creatine Kinase,Total,Serum 224 U/L (29-143)
== END 2023-01-05 14:49 | disposition home or self-care (01) ==
LOC: HO.LAB 14:48
PROVIDERS: Internal Medicine; PCP Internal Medicine; Visit Provider Internal Medicine Nephrology
DX: M86.9 Osteomyelitis, unspecified (principal); E11.21 Type 2 diabetes mellitus with diabetic nephropathy; I10 Essential (primary) hypertension
CPT/HCPCS: 36415; 80051; 82310; 82552; 82565; 84520

== ENCOUNTER → 2023-02-22 14:17 | Outpatient (BNVA) | payer MEDICAID, SELFPAY | PROVIDERS: PCP Internal Medicine; Visit Provider Internal Medicine Endocrinology, Diabetes & Metabolism | DX: E11.65 Type 2 diabetes mellitus with hyperglycemia (principal); E11.42 Type 2 diabetes mellitus with diabetic polyneuropathy; E11.22 Type 2 diabetes mellitus with diabetic chronic kidney disease; I12.9 Hypertensive chronic kidney disease with stage 1 through stage 4 chronic kidney disease, or unspecified chronic kidney disease; N18.9 Chronic kidney disease, unspecified; E11.621 Type 2 diabetes mellitus with foot ulcer; L97.429 Non-pressure chronic ulcer of left heel and midfoot with unspecified severity; I25.10 Atherosclerotic heart disease of native coronary artery without angina pectoris; E78.5 Hyperlipidemia, unspecified; Z95.1 Presence of aortocoronary bypass graft; Z79.4 Long term (current) use of insulin | CPT/HCPCS: 82947; 96372; 99212; J1815 ==

== ENCOUNTER 2023-02-23 09:23 | Outpatient (REF) | payer MEDICAID, SELFPAY ==
[2023-02-23 10:59] LABS: Anion Gap 13 (12-20); Blood Urea Nitrogen 23 mg/dL (9-16); Calcium 9.6 mg/dL (8.4-10.2); Carbon Dioxide 26 mmol/L (22-29); Chloride 105 mmol/L (96-108); Estimated Glomerular Filt Rate 53; Potassium 4.8 mmol/L (3.3-5.1); Sodium 139 mmol/L (135-145)
[2023-02-23 11:31] LABS: Creatinine Urine 105.75 mg/dL; Protein/Creatinine Ratio, Ur 0.47 (<0.2); Total Protein Urine Random 50 mg/dL (<12)
== END 2023-02-23 09:24 | disposition home or self-care (01) ==
LOC: HO.LAB 09:23
PROVIDERS: PCP Internal Medicine; Visit Provider Internal Medicine Nephrology
DX: E11.21 Type 2 diabetes mellitus with diabetic nephropathy (principal); I10 Essential (primary) hypertension
CPT/HCPCS: 36415; 80051; 82310; 82565; 84156; 84520

== ENCOUNTER 2023-05-12 13:55 | Outpatient (REF) | payer MEDICAID, SELFPAY ==
--- NOTE | ~2023-05-12 | XR_ITS ---
EXAMINATION: XR CHEST CLINICAL INFORMATION: 3 weeks of productive cough COMPARISON: 02/23/2021 TECHNIQUE: 2 views of the chest were obtained. FINDINGS: No acute finding. Lung rojas are felt to be grossly clear. There has been a median sternotomy. No failure. Mildly prominent cardiac silhouette similar to previous. There is no effusion. The hilar regions are comparable. XR/XR chest 2V IMPRESSION: No acute finding.
== END 2023-05-12 13:56 | disposition home or self-care (01) ==
LOC: HO.HHCX 13:55
PROVIDERS: Visit Provider Emergency Medicine
DX: J45.21 Mild intermittent asthma with (acute) exacerbation (principal)
CPT/HCPCS: 71046

== ENCOUNTER 2023-06-15 13:27 | Outpatient (REF) | payer MEDICAID, SELFPAY ==
[2023-06-15 15:09] LABS: Anion Gap 10 (12-20); Blood Urea Nitrogen 15 mg/dL (9-16); Calcium 9.6 mg/dL (8.4-10.2); Carbon Dioxide 29 mmol/L (22-29); Chloride 102 mmol/L (96-108); Estimated Glomerular Filt Rate 59; Potassium 4.6 mmol/L (3.3-5.1); Sodium 136 mmol/L (135-145)
[2023-06-16 07:09] LABS: Creatinine Urine 116.52 mg/dL; Protein/Creatinine Ratio, Ur 0.47 (<0.2); Total Protein Urine Random 55 mg/dL (<12)
== END 2023-06-15 13:28 | disposition home or self-care (01) ==
LOC: HO.LAB 13:27
PROVIDERS: PCP Internal Medicine; Visit Provider Internal Medicine Nephrology
DX: I12.9 Hypertensive chronic kidney disease with stage 1 through stage 4 chronic kidney disease, or unspecified chronic kidney disease (principal); E11.22 Type 2 diabetes mellitus with diabetic chronic kidney disease; N18.31 Chronic kidney disease, stage 3a; E11.21 Type 2 diabetes mellitus with diabetic nephropathy
CPT/HCPCS: 36415; 80051; 82310; 82565; 84156; 84520

== ENCOUNTER 2023-06-22 15:10 | Outpatient (AMB) | payer MEDICAID, SELFPAY ==
--- NOTE | 2023-06-22 15:22 | A.OFFVIS_ITS ---
Intake Vital Signs 06/22/23 15:24 Height 5 ft 7 in Weight 205 lb BMI 32.1 BP 120/80 Intake Visit Reasons: HPV Positive/PCP Referral Shredding Machine Knife Changer Required: Yes Shredding Machine Knife Changer Language: Globe Mounter Name: Cally Vargas CMA Information Interpreted: non-clinical & clinical Technical Services Representative: Technical Services Representative Present (Cally) Allergies sulfamethoxazole [From BACTRIM] Allergy (Severe, Verified 06/22/23 15:25) FACIAL SWELLING trimethoprim [From BACTRIM] Allergy (Severe, Verified 06/22/23 15:25) FACIAL SWELLING levofloxacin [From LEVAQUIN] Allergy (Intermediate, Verified 06/22/23 15:25) REDNESS, SWELLING ITCHINESS AT IV SITE Is last menstrual period known: Yes Last menstrual period: 06/06/23 Post menopausal: No HPI HPI Comments History of Present Illness Details Presenting referred from PCP regarding normal Pap/HPV 18/45 positive, HPV 16 negative. No previous abnormal Pap smear and no other complaints PFSH Medical History Anxiety Asthma CAD (coronary artery disease) Depression DM2 (diabetes mellitus, type 2) Essential hypertension Hyperlipidemia LDL goal <100 Obesity due to excess calories DEVYN (obstructive sleep apnea) Osteomyelitis Proteinuria Retinopathy Type 2 diabetes mellitus with diabetic polyneuropathy Type 2 diabetes mellitus with hyperglycemia, with long-term current use of insulin Type 2 diabetes mellitus with other diabetic kidney complication Wound of left foot Surgical History Hx of breast biopsy Hx of section Hx of coronary artery bypass surgery Hx of tubal ligation Family History Maternal Grandmother Diabetes Cervical cancer Brother Diabetes Sister Breast cancer Social History Household Members: Family Household Members Other:: 1 Housing: Apartment Alcohol intake: never Patient Tobacco Use Status: Never used Tobacco Second Hand Smoke Exposure: No service: No Current occupational status: unemployed Female Reproductive History Menstrual Age of Menarche: 11 Duration of menses: 3-5 days Date of last menstrual period: 06/06/23 control method: permanent sterilization Total pregnancies: 2 Full term: 2 Number of Living Children: 2 Date of last pap smear: 03/15/23 (+HPV) History of abnormal pap smear: Yes Review of Systems Const All systems reviewed & are unremarkable except as noted in HPI and below Physical Exam Vital Signs: Last Vital Signs BP 120/80 06/22/23 15:24 BMI result Body Mass Index 32.1 General: Yes no CVA tenderness External Female Exam: normal external appearance and normal appearance of the urethra Speculum Exam - Vagina: normal appearance of the vagina, normal palpation, no lesions and no masses Speculum Exam - Cervix: normal appearance of the cervix, normal palpation, no lesions, no masses and nontender Bimanual exam- vagina & uterus: normal bimanual exam, normal palpation, uterine size normal, normal palpation, uterine shape normal, No Cervical tenderness present and non-tender Bimanual Exam- Adnexa, other: normal adnexae Back/Spine/Pelvis Back: no CVA tenderness Assessment & Plan Assessment & Plan (1) Cervical high risk HPV (human papillomavirus) test positive: Comment: Negative Pap/HPV 18/45 positive, HPV 16 negative Code(s): R87.810 - Cervical high risk human papillomavirus (HPV) DNA test positive Plan: Discussed with the patient the result of her abnormal pap, its significance, risk of progression, persistence, and regression if untreated. the false positive/negative rate being a screening test, the indication for diagnostic test -colposcopy, biopsy, endocervical curettage. Instructions given the patient to schedule colposcopy/biopsy/ECC in 2 weeks. The patient verbalized understanding and agreed with the plan, all questions answered. Coding Level of Care Code New Pt Level 3 (07631) Diagnoses Cervical high risk HPV (human papillomavirus) test positive R87.810
[2023-06-22 15:24] VITALS: BP 120/80; BMI 32.1
== END 2023-06-22 16:18 | disposition home or self-care (01) ==
LOC: HO.HWS 15:10
PROVIDERS: PCP Internal Medicine; Visit Provider Obstetrics & Gynecology
DX: R87.810 Cervical high risk human papillomavirus (HPV) DNA test positive (principal)
CPT/HCPCS: 99203

== ENCOUNTER → 2023-06-22 15:10 | Outpatient (BNVA) | payer MEDICAID, SELFPAY | PROVIDERS: PCP Internal Medicine; Visit Provider Obstetrics & Gynecology | DX: R87.810 Cervical high risk human papillomavirus (HPV) DNA test positive (principal) | CPT/HCPCS: 99202 ==

== ENCOUNTER 2023-06-28 09:35 | Outpatient (AMB) | payer MEDICAID, SELFPAY ==
--- NOTE | 2023-06-28 09:38 | MHC.OFFVIS ---
Intake Vital Signs 06/28/23 09:42 Height 5 ft 7 in Weight 207 lb 10.807 oz BMI 32.5 BP 128/76 Blood Pressure Location Lt brachial Position Sitting Pulse 78 Pulse Source Pulse Oximeter Intake Visit Reasons: f/u Type 2 DM Intake Note: Patient present today to follow up on Type 2 Diabetes Mellitus. Pump supplies receives through pharmacy. Dexcom supplies receives through [email or web address]. Last Diabetic Eye exam: August 2022 Last Podiatry Visit: Does not see a Water Softener Service Supervisor Random Glucose: 213 mg/dl HgA1C: 9.1% Production Cell Leader Required: Yes Production Cell Leader Language: Embedded Developer Name: Francheska medical staff Information Interpreted: non-clinical & clinical Accompanied by: Daughter Allergies sulfamethoxazole [From BACTRIM] Allergy (Severe, Verified 06/28/23 09:43) FACIAL SWELLING trimethoprim [From BACTRIM] Allergy (Severe, Verified 06/28/23 09:43) FACIAL SWELLING levofloxacin [From LEVAQUIN] Allergy (Intermediate, Verified 06/28/23 09:43) REDNESS, SWELLING ITCHINESS AT IV SITE Medication List - Last Reconciled 06/28/23 by Horace Orozco MD aspirin (Adult Aspirin Regimen) 81 mg PO DAILY@1700 blood sugar diagnostic (FreeStyle Lite Strips) As directed tests 4 X/day blood-glucose meter (FreeStyle Lite Meter kit) As directed blood-glucose sensor (Dexcom G6 Sensor device) As directed change every 10 days blood-glucose transmitter (Dexcom G6 Transmitter device) once every 10 days clopidogrel 75 mg PO DAILY@0730 digoxin 125 mcg PO MOWEFR@0730 doxepin 10 mg PO BEDTIME doxycycline hyclate 100 mg PO BID 30 days epinephrine IM DIRECTED ezetimibe 10 mg PO DAILY@0730 ferrous gluconate 324 mg PO DAILY@1200,1700 fluoxetine 20 mg PO DAILY@0730 fluticasone propionate 50 mcg/actuation 1 - 2 sprays intranasal DAILY PRN insulin lispro (Humalog U-100 Insulin) up to 100 units per day via insulin pump via continuous subcutaneous infusion use as directed; insulin pump cart,cont inf,BT (Omnipod Dash Pods (Gen 4) subcutaneous cartridge) As directed isosorbide mononitrate ER 30 mg PO DAILY@0730 lamotrigine 100 mg PO BEDTIME lancets (FreeStyle Lancets) As directed tests 4 X/day lisinopril 10 mg PO DAILY@0730 melatonin 5 mg PO BEDTIME pantoprazole 40 mg PO DAILY@0730 pen needle, diabetic (Comfort EZ Pen [place]) As directed injects 4 X/day rosuvastatin 40 mg PO BEDTIME semaglutide (Ozempic) 0.5 mg (0.736 mL) subcut QWEEK spironolactone 25 mg PO DAILY@0730 torsemide 60 mg PO BID HPI HPI Comments History of Present Illness Details Patient is 47 yo female with DM type 2 diagnosed in approximately 1987, here for follow up management of diabetes. Currently on an Omnipod dash pump. Basal rate is at 10:00 AM 2.3 units/hour and 21:00 2.35 units per hr Insulin: Carbohydrate is 1:5 at 12:00 and 1: 4.5 12 p.m. Total daily dose is 44.8 units with 88% basal and 12% bolus. Was on Trulicity in the past but stopped due to shoulder discomfort Patient has not been enduring glucoses into the pump as not had supplies for the sensor and therefore no glucoses are available for viewing. Shake download shows the sensor is being used 50% of the time. Average glucose is 226 with standard [id number]. . 33% range with 53% hyperglycemia, 3% hypoglycemia 1% very hypoglycemic Past medical history: HTN, HLD, CAD Micro and macrovascular complications: + retinopathy, + neuropathy, + CAD, Symptoms: + numbness and tingling in legs. Hypoglycemia: rare overnight hypoglycemia Hyperglycemia: denies polyuria, nocturia 2-3x/night Water Softener Service Supervisor: Eye exam: last appt last wk , + retinopathy Laboratory Tests 10/07/21 10/07/21 10/07/21 11:11 11:11 11:11 Creatinine 1.05 Estimated GFR 56 Hgb A1c (Clinic) Triglycerides 199 Cholesterol 230 LDL Cholesterol Di rect Pending LDL Cholesterol, C alc 145 HDL Cholesterol 46 Microalb/Creat Rat io 65.4 10/07/21 13:52 Creatinine Estimated GFR Hgb A1c (Clinic) 8.8 H Triglycerides Cholesterol LDL Cholesterol Di rect LDL Cholesterol, C alc HDL Cholesterol Microalb/Creat Rat io [facility] Medical History Anxiety Asthma CAD (coronary artery disease) Depression DM2 (diabetes mellitus, type 2) Essential hypertension Hyperlipidemia LDL goal <100 Obesity due to excess calories DEVYN (obstructive sleep apnea) Osteomyelitis Proteinuria Retinopathy Type 2 diabetes mellitus with diabetic polyneuropathy Type 2 diabetes mellitus with hyperglycemia, with long-term current use of insulin Type 2 diabetes mellitus with other diabetic kidney complication Wound of left foot Surgical History Hx of breast biopsy Hx of section Hx of coronary artery bypass surgery Hx of tubal ligation Family History Maternal Grandmother Diabetes Cervical cancer Brother Diabetes Sister Breast cancer Social History Household Members: Family Household Members Other:: 1 Housing: Apartment Alcohol intake: never Patient Tobacco Use Status: Never used Tobacco Second Hand Smoke Exposure: No service: No Current occupational status: unemployed Female Reproductive History Menstrual Age of Menarche: 11 Physical Exam Vital Signs: Last Vital Signs Pulse 78 06/28/23 09:42 BP 128/76 06/28/23 09:42 BMI result Body Mass Index 32.5 Absence of Cushingoid features. Absence of acromegalic features. Neck exam reveals nl size thyroid about 15 gms. No thyroid nodules palpable. No carotid bruits present. Lungs CTA. Heart S1 S2, Reg R/R. No M/R/ G. Skin exam reveals absence of vitiligo or acanthosis nigricans. Abdominal exam reveals Soft NT/ND with NA BS. No organomegaly present. Neck Other: . Extrem Other: Visual exam of foot performed.L foot ulceration bandaged followed by wound clinic No onchomycosis, no callouses.Pulses 2 + distally Sensation intact to monofilament exam. Vibratory sensation sensed is decreased with 128 Hz tuning fork Results AMB Hemoglobin A1c AMB Hemoglobin A1c 9.1 % Last Edit by SALUD Lester on 06/28/23 10:05 Results Reviewed Results Reviewed: 06/28/23 09:53 Glucose, Whole Blood Routine Laboratory Last Values Glucose (Clinic) 213 mg/dL (60-115) H 06/28/23 09:53 Hgb A1c (Clinic) 9.1 % (4.0-6.0) H 06/28/23 10:04 Assessment & Plan Assessment & Plan (1) Type 2 diabetes mellitus with other diabetic kidney complication: Code(s): E11.29 - Type 2 diabetes mellitus with other diabetic kidney complication Plan: This is a 48-year-old female with a history of type 2 diabetes with Omnipod dash insulin pump with poor glycemic control and known microvascular and macrovascular complications namely CKD, neuropathy, retinopathy and CAD. Plan is have the patient follow-up with the e commerce manager. Perhaps, the Omnipod dash can be converted to an Omnipod 5. Will decrease the basal rate from 00:00 to 06:00 to 2.0 units/hour to avoid overnight hypoglycemia.. Will ask her to wear the sensor more frequently. Will reinitiate a G LP 1 agonist Ozempic 0.5 mg Q weekly and titrate accordingly based on tolerance. Went over side effects of Ozempic including but not limited to nausea, vomiting and rare risk of pancreatitis Ozempic 0.5 mg samples given to patient lot number [id number] expiration date 03/20/2025 Orders: Orders AMB Hemoglobin A1c Today E11.29 - Type 2 diabetes mellitus with other diabetic kidney complication Referrals Nutrition/Dietitian Referral E11.29 - Type 2 diabetes mellitus with other diabetic kidney complication Medications: New semaglutide (Ozempic) 0.5 mg (0.736 mL) subcut QWEEK 3 mL 5RF Coding Level of Care Code Est Pt Level 4 (71075) Diagnoses Type 2 diabetes mellitus with other diabetic kidney complication E11.29
[2023-06-28 09:42] VITALS: BP 128/76; PULSE 78; BMI 32.5
[2023-06-28 09:59] LABS: Glucose, Whole Blood 213 mg/dL (60-115)
== END 2023-06-28 10:20 | disposition home or self-care (01) ==
PROVIDERS: PCP Internal Medicine; Referring Provider Internal Medicine; Visit Provider Internal Medicine Endocrinology, Diabetes & Metabolism
DX: E11.29 Type 2 diabetes mellitus with other diabetic kidney complication (principal)
CPT/HCPCS: 99214

== ENCOUNTER → 2023-06-28 09:35 | Outpatient (BNVA) | payer MEDICAID, SELFPAY | PROVIDERS: Visit Provider Internal Medicine Endocrinology, Diabetes & Metabolism | DX: E11.29 Type 2 diabetes mellitus with other diabetic kidney complication (principal) | CPT/HCPCS: 82947; 83036; 99212 ==

== ENCOUNTER 2023-10-18 10:25 | Outpatient (AMB) | payer MEDICAID, SELFPAY ==
--- NOTE | 2023-10-18 10:35 | A.OFFVIS_ITS ---
Intake VS Expanded 10/18/23 10:36 10/25/23 21:06 Height 5 ft 7 in 5 ft 7 in Weight 195 lb 8.8 oz 195 lb BMI 30.6 30.5 Intake Visit Reasons: DM-lvm Allergies sulfamethoxazole [From BACTRIM] Allergy (Severe, Verified 06/28/23 09:43) FACIAL SWELLING trimethoprim [From BACTRIM] Allergy (Severe, Verified 06/28/23 09:43) FACIAL SWELLING levofloxacin [From LEVAQUIN] Allergy (Intermediate, Verified 06/28/23 09:43) REDNESS, SWELLING ITCHINESS AT IV SITE HPI Nutrition Presentation Details Pt presents for MNT for T2DM. Pt was referred by Dr. Orozco , ball assembler. The Pt presents with daughter who helps with meal planning. Pt is on lispro via omni pod DASH insulin pump therapy and Pt also has G6 glucose sensor Pt does not understand carb counting, Pt reports working on reducing portion sizes and utilizing information from G6 to adjust portion. Pt reports choosing no sugar beverages Tea- chamomile 10 am toast 4 -5 dry toasts with butter , boiled egg and coffee with no sugar 1:30-2 pm tea/diet jello 7 pm: chicken, (not fried) or with barker or olive oil and potato or potato salad with tuna, tea ETOH: denies smoking denies physical activity: daily life activities CBZ-Jtapbzd-Cb.Jeor Equation Height 5 ft 7 in Weight 195 lb Resting Metabolic Rate 1540.25 Calculated Activity Level Sedentary Calories Needed to Maintain Weight 1848.30 Diagnosis Nutrition problem #1 altered nutrition labs As related to (etiology) #1 unsure how to apply info As evidenced by (sign/symptom) #1 abnormal lab values (A1c at 9.1% on 06/2023 and ) Monitoring/Goals Nutrition problem monitoring level of knowledge/skill and glucose, fasting Nutrition goal/outcome list 3 CHO foods Learning/Education Readiness to learn fair Stages of change pre-contemplation Educational materials provided Yes (meal planning, portion sizes (est g of carb per meal to enter in ins pump) Most Recent Diabetes Results: Creatinine 1.00 mg/dL (0.5-1.4) 06/15/23 Blood Urea Nitrogen 15 mg/dL (9-16) 06/15/23 Sodium 136 mmol/L (135-145) 06/15/23 Potassium 4.6 mmol/L (3.3-5.1) 06/15/23 Chloride 102 mmol/L (96-108) 06/15/23 Carbon Dioxide 29 mmol/L (22-29) 06/15/23 Calcium 9.6 mg/dL (8.4-10.2) 06/15/23 [facility] Medical History (Updated 08/23/23 @ 15:48 by Ace Granda MD) DEVYN (obstructive sleep apnea) Osteomyelitis Wound of left foot Asthma DM2 (diabetes mellitus, type 2) Hyperlipidemia LDL goal <100 CAD (coronary artery disease) Retinopathy Anxiety Depression Type 2 diabetes mellitus with hyperglycemia, with long-term current use of insulin Proteinuria Type 2 diabetes mellitus with other diabetic kidney complication Essential hypertension Obesity due to excess calories Type 2 diabetes mellitus with diabetic polyneuropathy Surgical History Hx of breast biopsy Hx of section Hx of tubal ligation Hx of coronary artery bypass surgery Family History Maternal Grandmother Diabetes Cervical cancer Brother Diabetes Sister Breast cancer Social History Household Members: Family Household Members Other:: 1 Housing: Apartment Alcohol intake: never Patient Tobacco Use Status: Never used Tobacco Second Hand Smoke Exposure: No service: No Current occupational status: unemployed Female Reproductive History Menstrual Age of Menarche: 11 Assessment & Plan Assessment & Plan (1) Type 2 diabetes mellitus with other diabetic kidney complication: Code(s): E11.29 - Type 2 diabetes mellitus with other diabetic kidney complication Plan: wt: 89 kg Est kcal needs as per MSJ: 1800 (40% carb, 30% protein/fat) Est fluid needs as per 25-30 ml/d: 2700 Est prot per day as per 1 g/kg bw: 89 Recommend fiber intake : 8-10 g per day and gradually increase to 25-28 g per day for women and 35-38 g for men or as tolerated Recommend sodium intake per day : less than 2000 mg Educated patient on: ( R = reviewed V = verbalizes understanding N/R = needs review N/A = not applicable * Food sources of carbohydrate, adequate serving sizes and its role in various health conditions: R * Differences between complex carbohydrates a simple carbohydrates, role of fiber in diet: R * Differences between types of fats and role in diet (mono on saturated fat fatty acids, saturated fatty acids, trans fats): R low fat * Food sources of sodium in salt and healthy modifications for heart health in kidney health: NR * Vitamins and minerals: NR * Healthy plate method concept: R * Physical activity: Benefits a precaution: R * Hypoglycemia protocol (rule of 15): NR * Dietary prevention of Hyperglycemia: R Patient Instructions: Follow healthy plate method enter amount of carbohydrate according to meal/portion sizes using meal plan reference- daughter agreed to assist Take insulin bolus with meals- do not skip meal bolus keep food record and bring to next follow up for review Coding Level of Care Code Nutr Indiv Subseq (84966) Diagnoses Type 2 diabetes mellitus with other diabetic kidney complication E11.29 Time Spent (min) 30
[2023-10-18 10:36] VITALS: BMI 30.6
[2023-10-25 21:06] VITALS: BMI 30.5
== END 2023-10-18 11:14 | disposition home or self-care (01) ==
PROVIDERS: PCP Internal Medicine; Visit Provider Dietitian, Registered
DX: E11.29 Type 2 diabetes mellitus with other diabetic kidney complication (principal)

== ENCOUNTER → 2023-10-18 10:25 | Outpatient (BNVA) | payer MEDICAID, SELFPAY | PROVIDERS: PCP Internal Medicine; Visit Provider Dietitian, Registered | DX: E11.29 Type 2 diabetes mellitus with other diabetic kidney complication (principal) | CPT/HCPCS: 97803 ==

== ENCOUNTER 2023-11-03 13:11 | Outpatient (REF) | payer MEDICAID, SELFPAY | END 2023-11-03 13:12 | disposition home or self-care (01) | LOC: HO.LNP 13:11 | PROVIDERS: PCP Internal Medicine; Visit Provider Registered Nurse Diabetes Educator | DX: R87.810 Cervical high risk human papillomavirus (HPV) DNA test positive (principal); E11.29 Type 2 diabetes mellitus with other diabetic kidney complication | CPT/HCPCS: 57454; 81025; 88305; 99211 ==

== ENCOUNTER 2023-11-03 13:11 | Outpatient (AMB) | payer MEDICAID, SELFPAY ==
--- NOTE | 2023-11-03 13:50 | MHC.AMDMED ---
Intake Intake Visit Reasons: DM-CONFIRMED Mobile Phone Salesperson Required: Yes Mobile Phone Salesperson Language: Supervisor Small Appliance Assembly Name: Radha [facility] [place] Accompanied by: Daughter Allergies sulfamethoxazole [From BACTRIM] Allergy (Severe, Verified 06/28/23 09:43) FACIAL SWELLING trimethoprim [From BACTRIM] Allergy (Severe, Verified 06/28/23 09:43) FACIAL SWELLING levofloxacin [From LEVAQUIN] Allergy (Intermediate, Verified 06/28/23 09:43) REDNESS, SWELLING ITCHINESS AT IV SITE HPI Comprehensive Diabetes Asmnt Most Recent Diabetes Results: No Data to Display [facility] Medical History (Updated 08/23/23 @ 15:48 by Ace Granda MD) DEVYN (obstructive sleep apnea) Osteomyelitis Wound of left foot Asthma DM2 (diabetes mellitus, type 2) Hyperlipidemia LDL goal <100 CAD (coronary artery disease) Retinopathy Anxiety Depression Type 2 diabetes mellitus with hyperglycemia, with long-term current use of insulin Proteinuria Type 2 diabetes mellitus with other diabetic kidney complication Essential hypertension Obesity due to excess calories Type 2 diabetes mellitus with diabetic polyneuropathy Surgical History Hx of breast biopsy Hx of section Hx of tubal ligation Hx of coronary artery bypass surgery Family History Maternal Grandmother Diabetes Cervical cancer Brother Diabetes Sister Breast cancer Social History Household Members: Family Household Members Other:: 1 Housing: Apartment Alcohol intake: never Patient Tobacco Use Status: Never used Tobacco Second Hand Smoke Exposure: No service: No Current occupational status: unemployed Female Reproductive History Menstrual Age of Menarche: 11 Assessment & Plan Assessment & Plan (1) Type 2 diabetes mellitus with other diabetic kidney complication: Code(s): E11.29 - Type 2 diabetes mellitus with other diabetic kidney complication Plan: Patient presents for pump training for Omnipod Dash with Dexcom G6 The following topics were reviewed today: - difference between Omnipod dash in Omnipod 5 - interstitial glucose verses blood glucose - Sensor setting (if applicable) ??? High Alert: 180 mg/dl ??? Low Alert: 80 mg/dl Average glucose for the last 2 weeks 170 mg/dL Above target 42% In target range 54% Below target 4% Reviewed with patient how to treat hypoglycemic events with rule of 15s Instructed patient that if she needs a new Dash PDM she needs to call [facility] for placement Patient understands the basic concepts of pump therapy, how to give insulin for meals and snacks, how to troubleshoot for hyper and hypoglycemia. Setting verified by CDCES, see changes to patient's pump settings below Basal rate(s) (units/hour) : 12 AM? to 9 PM? 2.3 units / hr 9 PM to 12 AM 2.35 units / hr Bolus setting Insulin Carbohydrate Ratio (s) 12 AM? to 12 PM? 1:5 12 PM to 12 AM? 1:4.5 Correction Factor / Sensitivity Factor 12 AM? to 12 PM? 1:25 Active Insulin Time:?3.5 hours Target(s): 12 AM to 12 AM ? 100 mg/dL Patient Instructions: patient will call when she gets Omnipod 5 supplies Coding Level of Care Code Est Pt Level 1 (20416) Diagnoses Type 2 diabetes mellitus with other diabetic kidney complication E11.29
== END 2023-11-03 14:33 | disposition home or self-care (01) ==
PROVIDERS: PCP Internal Medicine; Visit Provider Registered Nurse Diabetes Educator
DX: E11.29 Type 2 diabetes mellitus with other diabetic kidney complication (principal)

== ENCOUNTER 2023-11-03 14:44 | Outpatient (AMB) | payer MEDICAID, SELFPAY ==
--- NOTE | 2023-11-03 14:44 | MHC.OFFVIS ---
Intake Vital Signs 11/03/23 14:49 Height 5 ft 7 in Weight 197 lb BMI 30.9 BP 140/72 H Intake Visit Reasons: Colpo Principal Consulting Engineer Required: Yes Principal Consulting Engineer Language: Hat Body Inspector Name: Kathie [id number] Information Interpreted: non-clinical & clinical Mental Measurements Teacher: Mental Measurements Teacher Present (Aidyn) Allergies sulfamethoxazole [From BACTRIM] Allergy (Severe, Verified 11/03/23 14:51) FACIAL SWELLING trimethoprim [From BACTRIM] Allergy (Severe, Verified 11/03/23 14:51) FACIAL SWELLING levofloxacin [From LEVAQUIN] Allergy (Intermediate, Verified 11/03/23 14:51) REDNESS, SWELLING ITCHINESS AT IV SITE Is last menstrual period known: Yes Last menstrual period: 09/27/23 Post menopausal: No HPI HPI Comments History of Present Illness Details Presenting for abnormal cervical cytology, Pap smear negative for intraepithelial lesions, HPV 18/14 positive PFSH Medical History DEVYN (obstructive sleep apnea) Osteomyelitis Wound of left foot Asthma DM2 (diabetes mellitus, type 2) Hyperlipidemia LDL goal <100 CAD (coronary artery disease) Retinopathy Anxiety Depression Type 2 diabetes mellitus with hyperglycemia, with long-term current use of insulin Proteinuria Type 2 diabetes mellitus with other diabetic kidney complication Essential hypertension Obesity due to excess calories Type 2 diabetes mellitus with diabetic polyneuropathy Surgical History Hx of breast biopsy Hx of section Hx of tubal ligation Hx of coronary artery bypass surgery Family History Maternal Grandmother Diabetes Cervical cancer Brother Diabetes Sister Breast cancer Social History Household Members: Family Household Members Other:: 1 Housing: Apartment Alcohol intake: never Patient Tobacco Use Status: Never used Tobacco Second Hand Smoke Exposure: No service: No Current occupational status: unemployed Female Reproductive History Menstrual Age of Menarche: 11 Duration of menses: 3-5 days Date of last menstrual period: 09/27/23 control method: permanent sterilization Total pregnancies: 2 Full term: 2 Number of Living Children: 2 Review of Systems Const All systems reviewed & are unremarkable except as noted in HPI and below Physical Exam Vital Signs: Last Vital Signs BP 140/72 H 11/03/23 14:49 BMI result Body Mass Index 30.9 General: Yes no CVA tenderness External Female Exam: normal external appearance and normal appearance of the urethra Speculum Exam - Vagina: normal appearance of the vagina, normal palpation, no lesions and no masses Speculum Exam - Cervix: normal appearance of the cervix, normal palpation, no lesions, no masses and nontender Bimanual exam- vagina & uterus: normal bimanual exam, normal palpation, uterine size normal, normal palpation, uterine shape normal, No Cervical tenderness present and non-tender Bimanual Exam- Adnexa, other: normal adnexae Back/Spine/Pelvis Back: no CVA tenderness Office Procedures Colposcopy Before the procedure was started discussed with the patient the procedure, alternatives & all the risks associated with the procedure (bleeding, infection, injury to vagina, bladder, vessels, possible need for transfusion with all its risks) then patient signed the consent Pap smear = negative Pap/HPV 18/45 positive Urine test done in the office was negative Speculum inserted, acetic acid used Colposcopy done Transformation zone seen, acetowhite lesions identified at 5+6+7+11+1 o?clock, cervical biopsies taken from 5+6+7+11+1 o?clock, ECC done afterwards. Vaginoscopy of the upper vagina showed no evidence of any aceto-white lesions Monsel solution used for hemostasis. The patient tolerated well . At the end the patient was instructed to call if temp>100.4, abdominal pain, n/v, bleeding; The patient was given the following instructions: nothing per vagina, no intercourse or bath tub use. All questions answered the patient verbalized understanding. Instructed the patient to make an appointment in 2 weeks for follow-up This note was generated with a voice recognition program. Some errors may have been overlooked during the review of this note. Sometimes these errors may affect the content or meaning of a given sentence. [id number] of cervix including upper vagina with biopsy and ECC Procedure code (CPT) selection complete Assessment & Plan Assessment & Plan (1) Cervical high risk HPV (human papillomavirus) test positive: Comment: Negative Pap/HPV 18/45 positive, HPV 16 negative Code(s): R87.810 - Cervical high risk human papillomavirus (HPV) DNA test positive Plan: Discussed with the patient the result of her Pap/HPV result, its significance, risk of progression, persistence, and regression if untreated. the false positive/negative rate being a screening test, the indicate for diagnostic test -colposcopy, biopsy, endocervical curettage. Colpo/biopsy/ECC done, see procedure note. The patient verbalized understanding and agreed with the plan, all questions answered. Orders: Orders AMB Colposcopy Today R87.810 - Cervical high risk human papillomavirus (HPV) DNA test positive Coding Level of Care Code Procedure Only Diagnoses Cervical high risk HPV (human papillomavirus) test positive R87.810 CPT Codes Colposcopy - CPT: 66478-Twammgcrd of cervix including upper vagina with biopsy and ECC ([id number])
[2023-11-03 14:49] VITALS: BP 140/72; BMI 30.9
== END 2023-11-03 15:07 | disposition home or self-care (01) ==
PROVIDERS: PCP Internal Medicine; Visit Provider Obstetrics & Gynecology
DX: R87.810 Cervical high risk human papillomavirus (HPV) DNA test positive (principal); Z32.02 Encounter for pregnancy test, result negative
CPT/HCPCS: 57454

== ENCOUNTER 2023-12-15 13:42 | Outpatient (AMB) | payer MEDICAID, SELFPAY ==
--- NOTE | 2023-12-15 13:58 | HO.NEPHOV_ITS ---
HPI HPI Comments History of Present Illness Details I would the privilege of seeing Melissa who was accompanied by her daughter in the office today in follow-up of her chronic kidney disease on a background of diabetic nephropathy. She has history of vascular disease needing surgery for foot but currently denies any active peripheral arterial disease symptoms. She has history of coronary artery disease needing intervention. She is on LUIS inhibitor which is tolerating well. Her blood sugars are better controlled and her blood pressure is at goal. She denies any chest pain, shortness of breath, proximal nocturnal dyspnea, orthopnea, pedal edema, orthostatic or urinary symptoms. She does not take any nonsteroidal anti- inflammatories and maintain good hydration. She did not have any systemic complaints at the time this office visit [facility] Medical History DEVYN (obstructive sleep apnea) Osteomyelitis Wound of left foot Asthma DM2 (diabetes mellitus, type 2) Hyperlipidemia LDL goal <100 CAD (coronary artery disease) Retinopathy Anxiety Depression Type 2 diabetes mellitus with hyperglycemia, with long-term current use of in sulin Proteinuria Type 2 diabetes mellitus with other diabetic kidney complication Essential hypertension Obesity due to excess calories Type 2 diabetes mellitus with diabetic polyneuropathy Surgical History Hx of breast biopsy Hx of section Hx of tubal ligation Hx of coronary artery bypass surgery Family History Maternal Grandmother Diabetes Cervical cancer Brother Diabetes Sister Breast cancer Social History Household Members: Family Household Members Other:: 1 Housing: Apartment Alcohol intake: never Patient Tobacco Use Status: Never used Tobacco Second Hand Smoke Exposure: No service: No Current occupational status: unemployed Female Reproductive History Menstrual Age of Menarche: 11 Vital Signs 12/15/23 13:59 Height 5 ft 7 in Weight 200 lb 6 oz BMI 31.4 BP 122/80 Blood Pressure Location Lt brachial Position Sitting Pulse 81 Pulse Source Pulse Oximeter Pulse Oximetry (%) 96 Oxygen Delivery Method Room Air Physical Exam Vital Signs: Last Vital Signs Pulse 81 12/15/23 13:59 BP 122/80 12/15/23 13:59 Pulse Ox 96 12/15/23 13:59 Oxygen Delivery Method Room Air 12/15/23 13:59 BMI result Body Mass Index 31.4 Const General: comfortable and no acute distress Orientation/consciousness: patient oriented x3 HEENT Head: Yes normocephalic Mouth: Normal oral and palatal mucosa present Neck Neck: Yes supple Resp Auscultation: clear to auscultation bilaterally Cardio Jugular venous distension: no JVD Rate: regular rate GI Palpation (GI): Soft to palpation Auscultation: normal bowel sounds General: Yes no CVA tenderness Back/Spine/Pelvis Back: no CVA tenderness Skin General skin exam: no rashes or lesions noted Neuro General: patient oriented x3 and moves all extremities Extrem General: Yes no pedal edema Assessment & Plan Assessment & Plan (1) CKD stage 3 secondary to diabetes: Code(s): E11.22 - Type 2 diabetes mellitus with diabetic chronic kidney disease; N18.30 - Chronic kidney disease, stage 3 unspecified (2) Diabetic nephropathy: Code(s): E11.21 - Type 2 diabetes mellitus with diabetic nephropathy Qualifiers: Diabetes mellitus type: type 2 Qualified Code(s): E11.21 - Type 2 diabetes mellitus with diabetic nephropathy (3) Hypertension: Code(s): I10 - Essential (primary) hypertension Qualifiers: Hypertension type: primary hypertension Qualified Code(s): I10 - Essential (primary) hypertension Plan 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 She has proteinuria. Her blood sugar control is fair. Her blood pressure is at goal. She would benefit from a bit more weight loss. Her volume status is optimal. Her renal functions are at baseline. She has no active cardiac or peripheral arterial symptoms. I increased her lisinopril to 15 mg daily. She was asked to repeat her blood work to check her serum creatinine and serum potassium given increase in dosage of LUIS inhibitor. I have also ordered urine protein creatinine ratio. No other medication changes were made. Answered all questions and follow-up was given Orders: Orders Electrolytes 12/15/23 E11.22 - Type 2 diabetes mellitus with diabetic chronic kidney disease, N18.30 - Chronic kidney disease, stage 3 unspecified, E11.21 - Type 2 diabetes mellitus with diabetic nephropathy Creatinine 12/15/23 E11.22 - Type 2 diabetes mellitus with diabetic chronic kidney disease, N18.30 - Chronic kidney disease, stage 3 unspecified, E11.21 - Type 2 diabetes mellitus with diabetic nephropathy Protein Creatinine Ratio, Ur 12/15/23 E11.22 - Type 2 diabetes mellitus with diabetic chronic kidney disease, N18.30 - Chronic kidney disease, stage 3 unspecified, E11.21 - Type 2 diabetes mellitus with diabetic nephropathy Blood Urea Nitrogen 12/15/23 E11.22 - Type 2 diabetes mellitus with diabetic chronic kidney disease, N18.30 - Chronic kidney disease, stage 3 unspecified, E11.21 - Type 2 diabetes mellitus with diabetic nephropathy Medications: Changed From lisinopril 10 mg PO DAILY@0730 To lisinopril 15 mg (1.5 x 10 mg) PO DAILY@0730 45 tabs 5RF 30 days Discontinued insulin pump cart,auto,BT-cntr Discontinued Reason: Doctor's Order As directed 1 ea 0RF Coding Level of Care Code Est Pt Level 4 (97782) Diagnoses CKD stage 3 secondary to diabetes E11.22; N18.30 Diabetic nephropathy associated with type 2 diabetes mellitus E11.21 Diabetes mellitus type: type 2 Primary hypertension I10 Hypertension type: primary hypertension Results Reviewed Nephrology Results: No Data to Display
[2023-12-15 13:59] VITALS: BP 122/80; PULSE 81; O2SAT 96; BMI 31.4
== END 2023-12-15 14:40 | disposition home or self-care (01) ==
PROVIDERS: PCP Internal Medicine; Referring Provider Internal Medicine; Visit Provider Internal Medicine Nephrology
DX: E11.22 Type 2 diabetes mellitus with diabetic chronic kidney disease (principal); N18.30 Chronic kidney disease, stage 3 unspecified; E11.21 Type 2 diabetes mellitus with diabetic nephropathy; I10 Essential (primary) hypertension
CPT/HCPCS: 99214

== ENCOUNTER → 2023-12-15 13:42 | Outpatient (BNVA) | payer MEDICAID, SELFPAY | PROVIDERS: PCP Internal Medicine; Visit Provider Internal Medicine Nephrology | DX: E11.22 Type 2 diabetes mellitus with diabetic chronic kidney disease (principal); I12.9 Hypertensive chronic kidney disease with stage 1 through stage 4 chronic kidney disease, or unspecified chronic kidney disease; N18.30 Chronic kidney disease, stage 3 unspecified; E11.21 Type 2 diabetes mellitus with diabetic nephropathy | CPT/HCPCS: 99212 ==

== ENCOUNTER 2023-12-21 | Outpatient (REF) | payer MEDICAID, SELFPAY | END 2023-12-21 00:01 | disposition home or self-care (01) | LOC: CF | PROVIDERS: PCP Internal Medicine; Visit Provider Internal Medicine Endocrinology, Diabetes & Metabolism | DX: R20.0 Anesthesia of skin (principal); R20.2 Paresthesia of skin; E11.29 Type 2 diabetes mellitus with other diabetic kidney complication; Z71.89 Other specified counseling; Z96.41 Presence of insulin pump (external) (internal) | CPT/HCPCS: 99211 ==

== ENCOUNTER 2023-12-21 13:15 | Outpatient (AMB) | payer MEDICAID, SELFPAY ==
--- NOTE | 2023-12-21 13:29 | A.OFFVIS_ITS ---
Intake Intake Visit Reasons: pump training/CONFIRMED Allergies sulfamethoxazole [From BACTRIM] Allergy (Severe, Verified 12/15/23 14:02) FACIAL SWELLING trimethoprim [From BACTRIM] Allergy (Severe, Verified 12/15/23 14:02) FACIAL SWELLING levofloxacin [From LEVAQUIN] Allergy (Intermediate, Verified 12/15/23 14:02) REDNESS, SWELLING ITCHINESS AT IV SITE HPI Comprehensive Diabetes Asmnt Most Recent Diabetes Results: No Data to Display [facility] Medical History DEVYN (obstructive sleep apnea) Osteomyelitis Wound of left foot Asthma DM2 (diabetes mellitus, type 2) Hyperlipidemia LDL goal <100 CAD (coronary artery disease) Retinopathy Anxiety Depression Type 2 diabetes mellitus with hyperglycemia, with long-term current use of insulin Proteinuria Type 2 diabetes mellitus with other diabetic kidney complication Essential hypertension Obesity due to excess calories Type 2 diabetes mellitus with diabetic polyneuropathy Surgical History Hx of breast biopsy Hx of section Hx of tubal ligation Hx of coronary artery bypass surgery Family History Maternal Grandmother Diabetes Cervical cancer Brother Diabetes Sister Breast cancer Social History Household Members: Family Household Members Other:: 1 Housing: Apartment Alcohol intake: never Patient Tobacco Use Status: Never used Tobacco Second Hand Smoke Exposure: No service: No Current occupational status: unemployed Female Reproductive History Menstrual Age of Menarche: 11 Assessment & Plan Assessment & Plan (1) Type 2 diabetes mellitus with other diabetic kidney complication: Code(s): E11.29 - Type 2 diabetes mellitus with other diabetic kidney complication Plan: Patient was here today to transition off of MDI onto Omnipod 5. Previously patient was on Omnipod dash with Dexcom G6. At today's visit we were unable to start insulin pump due to patient's cellphone not being compatible with Dexcom G6 tierra. Recommended to patient to check her older cellphone which she has at home see if we can set up Dexcom G6 tierra on that phone. If patient wishes to use Omnipod 5 insulin pump she will need to get compatible cellphone with Dexcom G6 tierra. If this is not possible then she will have to return to using Omnipod dash or stay on MDI Patient given name of tierra to download on old cellphone Patient Instructions: Patient will try and set up Dexcom G6 on her old cellphone If old cellphone is compatible she can reschedule Omnipod 5 pump training Patient instructed to schedule follow-up appointment with clinical unit educator in 1 month to review glucose numbers Coding Level of Care Code Est Pt Level 1 (11484) Diagnoses Type 2 diabetes mellitus with other diabetic kidney complication E11.29
== END 2023-12-21 14:25 | disposition home or self-care (01) ==
PROVIDERS: PCP Internal Medicine; Visit Provider Registered Nurse Diabetes Educator
DX: E11.29 Type 2 diabetes mellitus with other diabetic kidney complication (principal)

== ENCOUNTER 2024-01-03 09:50 | Outpatient (AMB) | payer MEDICAID, SELFPAY ==
--- NOTE | 2024-01-03 13:20 | A.OFFVIS_ITS ---
Intake Intake Visit Reasons: DM/confirmed Allergies sulfamethoxazole [From BACTRIM] Allergy (Severe, Verified 12/15/23 14:02) FACIAL SWELLING trimethoprim [From BACTRIM] Allergy (Severe, Verified 12/15/23 14:02) FACIAL SWELLING levofloxacin [From LEVAQUIN] Allergy (Intermediate, Verified 12/15/23 14:02) REDNESS, SWELLING ITCHINESS AT IV SITE HPI Comprehensive Diabetes Asmnt Most Recent Diabetes Results: No Data to Display [facility] Medical History DEVYN (obstructive sleep apnea) Osteomyelitis Wound of left foot Asthma DM2 (diabetes mellitus, type 2) Hyperlipidemia LDL goal <100 CAD (coronary artery disease) Retinopathy Anxiety Depression Type 2 diabetes mellitus with hyperglycemia, with long-term current use of insulin Proteinuria Type 2 diabetes mellitus with other diabetic kidney complication Essential hypertension Obesity due to excess calories Type 2 diabetes mellitus with diabetic polyneuropathy Surgical History Hx of breast biopsy Hx of section Hx of tubal ligation Hx of coronary artery bypass surgery Family History Maternal Grandmother Diabetes Cervical cancer Brother Diabetes Sister Breast cancer Social History Household Members: Family Household Members Other:: 1 Housing: Apartment Alcohol intake: never Patient Tobacco Use Status: Never used Tobacco Second Hand Smoke Exposure: No service: No Current occupational status: unemployed Female Reproductive History Menstrual Age of Menarche: 11 Assessment & Plan Assessment & Plan (1) Type 2 diabetes mellitus with other diabetic kidney complication: Code(s): E11.29 - Type 2 diabetes mellitus with other diabetic kidney complication Plan: Again we were unable to set up patient's insulin pump. Called insulin customer service because patient is e-mail from insulin to set up Podder account was just a group of jumbled characters. Sent picture of e-mail to insulin customer service. They were unable to fix the issue on the phone, they report that they will contact patient once they have solution. Instructed patient to contact clinic when she gets Poddef at count so we can continue with pump training Coding Level of Care Code Est Pt Level 1 (11954) Diagnoses Type 2 diabetes mellitus with other diabetic kidney complication E11.29
== END 2024-01-03 11:27 | disposition home or self-care (01) ==
PROVIDERS: PCP Internal Medicine; Visit Provider Registered Nurse Diabetes Educator
DX: E11.29 Type 2 diabetes mellitus with other diabetic kidney complication (principal)

== ENCOUNTER → 2024-01-03 09:50 | Outpatient (BNVA) | payer MEDICAID, SELFPAY | PROVIDERS: PCP Internal Medicine; Visit Provider Registered Nurse Diabetes Educator | DX: E11.29 Type 2 diabetes mellitus with other diabetic kidney complication (principal); Z79.4 Long term (current) use of insulin | CPT/HCPCS: 99211 ==

== ENCOUNTER 2024-01-05 09:04 | Outpatient (RCR) | payer MEDICAID, SELFPAY | END 2024-03-18 15:00 | disposition home or self-care (01) | LOC: HO.WCC 09:04 | PROVIDERS: PCP Internal Medicine; Visit Provider Surgery | DX: E11.621 Type 2 diabetes mellitus with foot ulcer (principal); L97.412 Non-pressure chronic ulcer of right heel and midfoot with fat layer exposed; L97.522 Non-pressure chronic ulcer of other part of left foot with fat layer exposed; E11.42 Type 2 diabetes mellitus with diabetic polyneuropathy; E11.22 Type 2 diabetes mellitus with diabetic chronic kidney disease; I13.0 Hypertensive heart and chronic kidney disease with heart failure and stage 1 through stage 4 chronic kidney disease, or unspecified chronic kidney disease; N18.30 Chronic kidney disease, stage 3 unspecified; I50.22 Chronic systolic (congestive) heart failure; L84 Corns and callosities; Z79.4 Long term (current) use of insulin; Z79.84 Long term (current) use of oral hypoglycemic drugs; Z79.82 Long term (current) use of aspirin; Z79.899 Other long term (current) drug therapy; Z95.1 Presence of aortocoronary bypass graft; Z87.891 Personal history of nicotine dependence | CPT/HCPCS: 11042; 99212 ==

== ENCOUNTER 2024-01-05 12:13 | Outpatient (AMB) | payer MEDICAID, SELFPAY ==
[2024-01-05 12:59] VITALS: BP 122/82; BMI 31.3
--- NOTE | 2024-01-05 12:59 | MHC.OFFVIS ---
Intake Vital Signs 01/05/24 12:59 Height 5 ft 7 in Weight 200 lb BMI 31.3 BP 122/82 Intake Visit Reasons: colpo follow up Healthcare Applications Analyst Required: Yes Healthcare Applications Analyst Language: Gymnastics Coach Name: Cally Vargas Allergies sulfamethoxazole [From BACTRIM] Allergy (Severe, Verified 01/05/24 13:00) FACIAL SWELLING trimethoprim [From BACTRIM] Allergy (Severe, Verified 01/05/24 13:00) FACIAL SWELLING levofloxacin [From LEVAQUIN] Allergy (Intermediate, Verified 01/05/24 13:00) REDNESS, SWELLING ITCHINESS AT IV SITE Is last menstrual period known: Yes Last menstrual period: 12/28/23 Post menopausal: No HPI HPI Comments History of Present Illness Details Presenting post colpo for follow-up. The patient is doing well with no complaints. The pathology showed the following: A. Cervix, 1:00, biopsy: Squamous and endocervical glandular mucosa with marked inflammation and reactive changes; negative for dysplasia. B. Cervix, 5:00, biopsy: Squamous and endocervical glandular mucosa with marked inflammation and reactive changes; negative for dysplasia. C. Cervix, 6:00, biopsy: Squamous mucosa with marked inflammation and reactive changes; negative for dysplasia; no endocervical glandular component present. D. Cervix, 7:00, biopsy: Low-grade squamous intraepithelial lesion (mild dysplasia, ALEPSH 1); endocervical glandular component present. E. Cervix, 11:00, biopsy: Squamous and scant endocervical glandular mucosa with inflammation and reactive changes; negative for dysplasia. F. Endocervix, curettage: Endocervical glandular epithelium with rare squamous epithelium with reactive changes; negative for dysplasia [facility] Medical History DEVYN (obstructive sleep apnea) Osteomyelitis Wound of left foot Asthma DM2 (diabetes mellitus, type 2) Hyperlipidemia LDL goal <100 CAD (coronary artery disease) Retinopathy Anxiety Depression Type 2 diabetes mellitus with hyperglycemia, with long-term current use of insulin Proteinuria Type 2 diabetes mellitus with other diabetic kidney complication Essential hypertension Obesity due to excess calories Type 2 diabetes mellitus with diabetic polyneuropathy Surgical History Hx of breast biopsy Hx of section Hx of tubal ligation Hx of coronary artery bypass surgery Family History Maternal Grandmother Diabetes Cervical cancer Brother Diabetes Sister Breast cancer Social History Household Members: Family Household Members Other:: 1 Housing: Apartment Alcohol intake: never Patient Tobacco Use Status: Never used Tobacco Second Hand Smoke Exposure: No service: No Current occupational status: unemployed Female Reproductive History Menstrual Age of Menarche: 11 Date of last menstrual period: 12/28/23 control method: permanent sterilization Review of Systems Const All systems reviewed & are unremarkable except as noted in HPI and below Reports as per HPI and Reports no additional complaints GI Reports no additional complaints Reports no additional complaints Physical Exam Vital Signs: Last Vital Signs BP 122/82 01/05/24 12:59 BMI result Body Mass Index 31.3 Assessment & Plan Assessment & Plan (1) Dysplasia of cervix, low grade (ALPESH 1): Code(s): N87.0 - Mild cervical dysplasia Plan: Discussed with the patient the pathology results of the colposcopy biopsies & endocervical curettage ( mild dysplasia-ALPESH 1). Discussed with the patient the sensitivity specificity, positive and negative predictive value in detecting cervical cancer in addition discussed the regression, persistence and progression rates. Recommended co-testing in 12 months, if cytology and or HPV are abnormal will proceed was colposcopy biopsy and endocervical curettage, if lesions gets worse or stays persistent for 2 years will proceed with loop electric excision procedure. Instructions given to the patient to schedule a co test appointment in 1 year. All questions answered the patient verbalized understanding. Coding Level of Care Code Est Pt Level 3 (67559) Diagnoses Dysplasia of cervix, low grade (ALPESH 1) N87.0
== END 2024-01-05 13:12 | disposition home or self-care (01) ==
PROVIDERS: PCP Internal Medicine; Visit Provider Obstetrics & Gynecology
DX: N87.0 Mild cervical dysplasia (principal)
CPT/HCPCS: 99213

== ENCOUNTER → 2024-01-05 12:13 | Outpatient (BNVA) | payer MEDICAID, SELFPAY | PROVIDERS: PCP Internal Medicine; Visit Provider Obstetrics & Gynecology | DX: N87.0 Mild cervical dysplasia (principal) | CPT/HCPCS: 99212 ==

== ENCOUNTER 2024-01-10 13:00 | Outpatient (RCR) | payer MEDICAID, SELFPAY | END 2024-02-24 07:58 | disposition home or self-care (01) | LOC: HO.PT 13:00 | PROVIDERS: PCP Internal Medicine; Visit Provider Internal Medicine | DX: M79.601 Pain in right arm (principal) | CPT/HCPCS: 97110; 97162 ==

== ENCOUNTER 2024-01-19 13:36 | Outpatient (REF) | payer MEDICAID, SELFPAY ==
--- NOTE | 2024-01-19 | EMG_ITS ---
Chief complaint: History of diabetes, CKD 3, PVD, peripheral neuropathy, complaining of right hand numbness Reason for referral: Evaluate for Carpal Tunnel Syndrome Referred by: Dr. Richards Procedure done: Right upper extremity NCS/EMG Precautions and/or limitations: On aspirin and Plavix Seen with legal activity adjudicator, Czech speaking. The limb temperature was monitored continuously and remained between 32-36 degrees C during the performance of the NCS. Ulnar motor NCS was performed with moderate elbow flexion between 70-90 degrees, with across-elbow distance of 10 cm. Nerve Conduction Studies Anti Sensory Summary Table ?Stim Site NR Onset (ms) Norm Onset (ms) Peak (ms) Norm Peak (ms) O-P Amp (?V) Norm O-P Amp Site1 Site2 Delta-0 (ms) Dist (cm) Tai (m/s) Norm Tai (m/s) Right Median Anti Sensory (2nd Digit) Wrist NR <3.6 >10 Wrist 2nd Digit 14.0 Left Radial Anti Sensory (Thumb) Forearm ? 2.3 2.8 <3.1 5.3 Forearm Thumb 2.3 0.0 Right Ulnar Anti Sensory (5th Digit) Wrist ? 3.7 4.3 <3.7 3.1 >15.0 Wrist 5th Digit 3.7 14.0 38 Motor Summary Table ?Stim Site NR Onset (ms) Norm Onset (ms) O-P Amp (mV) Norm O-P Amp iAmp (mV) Amp (1st) (%) Site1 Site2 Delta-0 (ms) Dist (cm) Tai (m/s) Norm Tai (m/s) Right Median Motor (Abd Poll Brev) Wrist ? 8.0 <3.9 4.7 >4.5 5.8 100.0 Elbow Wrist 5.2 22.0 42 >45 Elbow ? 13.2 4.6 5.5 97.9 Right Ulnar Motor (Abd Dig Minimi) Wrist ? 3.2 <3.0 11.2 >5 15.2 100.0 B Elbow Wrist 4.7 21.0 45 >45 B Elbow ? 7.9 11.0 14.5 98.2 A Elbow B Elbow 1.9 10.0 53 >45 A Elbow ? 9.8 10.2 13.2 91.1 Right Ulnar Motor (FDI) Wrist ? 4.7 <3.0 8.3 >5 10.2 100.0 B Elbow Wrist 4.3 20.5 48 >45 B Elbow ? 9.0 8.5 10.0 102.4 A Elbow B Elbow 1.8 10.0 56 >45 A Elbow ? 10.8 7.1 8.3 85.5 EMG ?Side Muscle Nerve Root Ins Act Fibs Psw Amp Dur Poly Recrt Int Pat Comment Right 1stDorInt Ulnar C8-T1 Nml Nml Nml Nml Nml 0 Nml Complete Right FlexCarRad Median C6-7 Nml Nml Nml Nml Nml 0 Nml Complete Right Biceps Musculocut C5-6 Nml Nml Nml Nml Nml 0 Nml Complete Right Triceps Radial C6-7-8 Nml Nml Nml Nml Nml 0 Nml Complete Right Deltoid Axillary C5-6 Nml Nml Nml Nml Nml 0 Nml Complete FINDINGS: Right median motor nerve showed prolonged distal latency, normal amplitude and slow conduction velocity. Right ulnar motor nerve, recording FDI and ADM, showed prolonged distal latency, normal amplitude and normal conduction velocity. No conduction block across the elbow. Right median sensory nerve showed no response. Right ulnar sensory nerve showed prolonged peak latency and small amplitude. Right radial sensory nerve was within normal. Concentric needle EMG was performed in selected muscles of the right upper extremity. Study did not reveal signs of electric abnormalities as shown in the table below. IMPRESSION: 1. This is an abnormal study. 2. There is electrodiagnostic evidence for right moderate-severe median neuropathy at the wrist, consistent with carpal tunnel syndrome. 3. There is electrodiagnostic evidence for right ulnar neuropathy, non localizable. 4. There is no electrodiagnostic evidence for brachial plexopathy, or cervical radiculopathy. CLINICAL COMMENT: Note that patient has history of peripheral neuropathy, most likely from diabetes. Thank you for your kind referral. Erica Moss MD, LEO Board Certified, [place] Board of Physical Medicine and Rehabilitation (ABPMR) Board Certified, [place] Board of Electrodiagnostic Medicine (ABEM) [place] [id number] [facility]
== END 2024-01-19 13:37 | disposition home or self-care (01) ==
LOC: HO.NEURO 13:36
PROVIDERS: PCP Internal Medicine; Visit Provider Internal Medicine
DX: R20.0 Anesthesia of skin (principal); R20.2 Paresthesia of skin
CPT/HCPCS: 95886; 95909

== ENCOUNTER → 2024-01-19 13:40 | Outpatient (BNV) | payer MEDICAID, SELFPAY | PROVIDERS: PCP Internal Medicine; Visit Provider Physical Medicine & Rehabilitation | DX: G56.01 Carpal tunnel syndrome, right upper limb (principal); G56.11 Other lesions of median nerve, right upper limb; G56.21 Lesion of ulnar nerve, right upper limb | CPT/HCPCS: 95886; 95909 ==

== ENCOUNTER 2024-01-23 13:56 | Outpatient (AMB) | payer MEDICAID, SELFPAY ==
--- NOTE | 2024-01-23 14:37 | MHC.AMDMED ---
Intake Intake Visit Reasons: DM-mb full Architectural Examiner Required: Yes Architectural Examiner Language: Bleaching Machine Operator Name: Jerry [facility] Information Interpreted: non-clinical & clinical Accompanied by: Daughter Allergies sulfamethoxazole [From BACTRIM] Allergy (Severe, Verified 01/05/24 13:00) FACIAL SWELLING trimethoprim [From BACTRIM] Allergy (Severe, Verified 01/05/24 13:00) FACIAL SWELLING levofloxacin [From LEVAQUIN] Allergy (Intermediate, Verified 01/05/24 13:00) REDNESS, SWELLING ITCHINESS AT IV SITE HPI Comprehensive Diabetes Asmnt Most Recent Diabetes Results: Hemoglobin A1c 8.7 % 08/31/19 Microalb/Creat Ratio 125.6 ug/mg cr 11/01/22 Cholesterol 191 mg/dL 11/01/22 HDL Cholesterol 38 mg/dL 11/01/22 Triglycerides 164 mg/dL 11/01/22 Creatinine 1.00 mg/dL (0.5-1.4) 06/15/23 Blood Urea Nitrogen 15 mg/dL (9-16) 06/15/23 Sodium 136 mmol/L (135-145) 06/15/23 Potassium 4.6 mmol/L (3.3-5.1) 06/15/23 Chloride 102 mmol/L (96-108) 06/15/23 Carbon Dioxide 29 mmol/L (22-29) 06/15/23 Calcium 9.6 mg/dL (8.4-10.2) 06/15/23 AST 15 U/L (5-31) 10/27/22 ALT 18 U/L (0-31) 10/27/22 Total Protein 8.0 g/dL (6.5-8.0) 10/27/22 Albumin 4.4 g/dL (3.5-5.0) 10/27/22 [facility] Medical History DEYVN (obstructive sleep apnea) Osteomyelitis Wound of left foot Asthma DM2 (diabetes mellitus, type 2) Hyperlipidemia LDL goal <100 CAD (coronary artery disease) Retinopathy Anxiety Depression Type 2 diabetes mellitus with hyperglycemia, with long-term current use of insulin Proteinuria Type 2 diabetes mellitus with other diabetic kidney complication Essential hypertension Obesity due to excess calories Type 2 diabetes mellitus with diabetic polyneuropathy Surgical History Hx of breast biopsy Hx of section Hx of tubal ligation Hx of coronary artery bypass surgery Family History Maternal Grandmother Diabetes Cervical cancer Brother Diabetes Sister Breast cancer Social History Household Members: Family Household Members Other:: 1 Housing: Apartment Alcohol intake: never Patient Tobacco Use Status: Never used Tobacco Second Hand Smoke Exposure: No service: No Current occupational status: unemployed Female Reproductive History Menstrual Age of Menarche: 11 Assessment & Plan Assessment & Plan (1) Type 2 diabetes mellitus with other diabetic kidney complication: Code(s): E11.29 - Type 2 diabetes mellitus with other diabetic kidney complication Plan: Patient did not bring insulin pump to today's visit. She thought she had a appointment with Dr. Orozco We were able to get into patient's Podder account User ID: [email or web address] We will complete set up of Omnipod 5 on 01/31/2024 Coding Level of Care Code Est Pt Level 1 (72738) Diagnoses Type 2 diabetes mellitus with other diabetic kidney complication E11.29
== END 2024-01-23 14:58 | disposition home or self-care (01) ==
PROVIDERS: PCP Internal Medicine; Visit Provider Registered Nurse Diabetes Educator
DX: E11.29 Type 2 diabetes mellitus with other diabetic kidney complication (principal)

== ENCOUNTER → 2024-01-23 13:56 | Outpatient (BNVA) | payer MEDICAID, SELFPAY | PROVIDERS: PCP Internal Medicine; Visit Provider Registered Nurse Diabetes Educator | DX: E11.29 Type 2 diabetes mellitus with other diabetic kidney complication (principal) | CPT/HCPCS: 99211 ==

== ENCOUNTER 2024-01-27 11:05 | Outpatient (REF) | payer MEDICAID, SELFPAY ==
[2024-01-27 11:30] LABS: MANUAL DIFF FLAG NO
[2024-01-27 12:45] LABS: Basophils Percent Auto 0.3 % (0-2); Eosinophils Absolute Auto 0.8 X10*3/uL (0.0-0.4); Eosinophils Percent Auto 10.6 % (0-4); Hematocrit 37.6 % (37.0-47.0); Hemoglobin 12.6 g/dl (12.0-16.0); Imm Gran Abs Auto 0.01 X10*3/uL (0.00-0.03); Imm Gran Pct Auto 0.1 % (0.0-0.4); Lymphocytes Absolute Auto 2.1 X10*3/uL (1.2-4.9); Lymphocytes Percent Auto 27.6 % (20-40); Mean Corpuscular HGB Conc 33.5 g/dl (31.0-35.0); Mean Corpuscular Hemoglobin 30.5 pg (27.0-33.0); Monocytes Absolute Auto 0.5 X10*3/uL (0.1-1.2); Monocytes Percent Auto 6.2 % (2-11); Neutrophils Absolute Auto 4.1 x10*3/uL (2.0-8.3); Neutrophils Percent Auto 55.2 % (45-73); Platelet Count 252 X10*3/uL (160-400); Red Blood Count 4.13 X10*6/uL (4.20-5.50); Red Cell Distribution Width 12.9 % (11.0-16.0); White Blood Count 7.5 X10*3/uL (4.8-10.8)
[2024-01-27 14:00] LABS: Glucose Random 188 mg/dL (60-115)
[2024-01-27 14:12] LABS: Digoxin < 0.2 ng/mL (0.8-2.0)
[2024-01-27 14:22] LABS: Ferritin 58 ng/mL (10-250)
== END 2024-01-27 11:06 | disposition home or self-care (01) ==
LOC: HO.LAB 11:05
PROVIDERS: PCP Internal Medicine; Visit Provider Internal Medicine Endocrinology, Diabetes & Metabolism
DX: R42 Dizziness and giddiness (principal); D50.0 Iron deficiency anemia secondary to blood loss (chronic)
CPT/HCPCS: 36415; 80162; 82728; 82947; 85025

== ENCOUNTER 2024-01-31 13:12 | Outpatient (AMB) | payer MEDICAID, SELFPAY ==
[2024-01-31 13:22] VITALS: BP 116/74; PULSE 91; BMI 32.4
--- NOTE | 2024-01-31 13:22 | A.OFFVIS_ITS ---
Intake Vital Signs 01/31/24 13:22 Height 5 ft 7 in Weight 207 lb 0.225 oz BMI 32.4 BP 116/74 Blood Pressure Location Lt brachial Position Sitting Pulse 91 Pulse Source Pulse Oximeter Intake Visit Reasons: DM-confirmed Intake Note: Patient present today to follow up on Type 2 Diabetes Mellitus. Patient receives DME supplies through: Pharmacy Patient receives Insulin pump supplies through: Pharmacy Last Diabetic Eye exam: 01/2024 Last Podiatry Visit: Doesn't have one. Random Glucose: 118 mg/dl HgA1C: 7.0% Cafeteria Attendant Required: Yes Cafeteria Attendant Language: English Information Interpreted: non-clinical & clinical Accompanied by: Daughter Allergies sulfamethoxazole [From BACTRIM] Allergy (Severe, Verified 01/31/24 13:28) FACIAL SWELLING trimethoprim [From BACTRIM] Allergy (Severe, Verified 01/31/24 13:28) FACIAL SWELLING levofloxacin [From LEVAQUIN] Allergy (Intermediate, Verified 01/31/24 13:28) REDNESS, SWELLING ITCHINESS AT IV SITE HPI HPI Comments History of Present Illness Details Patient is 48 yo female with DM type 2 diagnosed in approximately 1987, here for follow up management of diabetes. Currently on an Omnipod dash pump. Basal rate is at 10:00 AM 2.3 units/hour and 21:00 2.35 units per hr Insulin: Carbohydrate is 1:5 at 12:00 and 1: 4.5 12 p.m. Total daily dose is 44.8 units with 88% basal and 12% bolus. Not using the pump Lantus 15 units humalog 30 units aC Dexcom download avg glucose of 166 with GMI of 7.3 56% in range with 41 % hyperglycemia and 2 % hypoglycemia Past medical history: HTN, HLD, CAD Micro and macrovascular complications: + retinopathy, + neuropathy, + CAD, Symptoms: + numbness and tingling in legs. Hypoglycemia: rare hypoglycemia Hyperglycemia: denies polyuria, nocturia 2-3x/night Stave Bolt Equalizer: Eye exam: last appt 01/04/2024 , + retinopathy Laboratory Tests 10/07/21 10/07/21 10/07/21 11:11 11:11 11:11 Creatinine 1.05 Estimated GFR 56 Hgb A1c (Clinic) Triglycerides 199 Cholesterol 230 LDL Cholesterol Di rect Pending LDL Cholesterol, C alc 145 HDL Cholesterol 46 Microalb/Creat Rat io 65.4 10/07/21 13:52 Creatinine Estimated GFR Hgb A1c (Clinic) 8.8 H Triglycerides Cholesterol LDL Cholesterol Di rect LDL Cholesterol, C alc HDL Cholesterol Microalb/Creat Rat io PFSH Medical History DEVYN (obstructive sleep apnea) Osteomyelitis Wound of left foot Asthma DM2 (diabetes mellitus, type 2) Hyperlipidemia LDL goal <100 CAD (coronary artery disease) Retinopathy Anxiety Depression Type 2 diabetes mellitus with hyperglycemia, with long-term current use of insulin Proteinuria Type 2 diabetes mellitus with other diabetic kidney complication Essential hypertension Obesity due to excess calories Type 2 diabetes mellitus with diabetic polyneuropathy Surgical History Hx of breast biopsy Hx of section Hx of tubal ligation Hx of coronary artery bypass surgery Family History Maternal Grandmother Diabetes Cervical cancer Brother Diabetes Sister Breast cancer Social History Household Members: Family Household Members Other:: 1 Housing: Apartment Alcohol intake: never Patient Tobacco Use Status: Never used Tobacco Second Hand Smoke Exposure: No service: No Current occupational status: unemployed Female Reproductive History Menstrual Age of Menarche: 11 Physical Exam Vital Signs: Last Vital Signs Pulse 91 01/31/24 13:22 BP 116/74 01/31/24 13:22 BMI result Body Mass Index 32.4 Absence of Cushingoid features. Absence of acromegalic features. Neck exam reveals nl size thyroid about 15 gms. No thyroid nodules palpable. No carotid br uits present. Lungs CTA. Heart S1 S2, Reg R/R. No M/R/ G. Skin exam reveals absence of vitiligo or acanthosis nigricans. Abdominal exam reveals Soft NT/ND with NA BS. No organomegaly present. Neck Other: . Extrem Other: Visual exam of foot performed.L foot ulceration bandaged followed by wound clinic No onchomycosis, no callouses.Pulses 2 + distally Sensation intact to monofilament exam. Vibratory sensation sensed is decreased with 128 Hz tuning fork Results AMB Hemoglobin A1c AMB Hemoglobin A1c 7.0 % Last Edit by SALUD Gallardo on 01/31/24 13:49 Results Reviewed Results Reviewed: Laboratory Last Values Glucose (Clinic) 118 mg/dL (60-115) H 01/31/24 13:30 Assessment & Plan Assessment & Plan (1) Type 2 diabetes mellitus with other diabetic kidney complication: Code(s): E11.29 - Type 2 diabetes mellitus with other diabetic kidney complication Plan: This is a 48-year-old female with a history of type 2 diabetes with Omnipod dash insulin pump with poor glycemic control and known microvascular and macrovascular complications namely CKD, neuropathy, retinopathy and CAD. Plan is have the patient follow-up with the early childhood educator aide today. Omnipod dash can be converted to an Omnipod 5. Orders: Orders AMB Hemoglobin A1c Today E11.29 - Type 2 diabetes mellitus with other diabetic kidney complication, Z13.9 - Encounter for screening, unspecified Referrals Podiatry Referral E11.29 - Type 2 diabetes mellitus with other diabetic kidney complication Coding Level of Care Code Est Pt Level 4 (53408) Diagnoses Type 2 diabetes mellitus with other diabetic kidney complication E11.29
[2024-01-31 13:34] LABS: Glucose, Whole Blood 118 mg/dL (60-115)
== END 2024-01-31 14:07 | disposition home or self-care (01) ==
PROVIDERS: PCP Internal Medicine; Visit Provider Internal Medicine Endocrinology, Diabetes & Metabolism
DX: Z13.9 Encounter for screening, unspecified (principal); E11.29 Type 2 diabetes mellitus with other diabetic kidney complication
CPT/HCPCS: 99214

== ENCOUNTER → 2024-01-31 13:12 | Outpatient (BNVA) | payer MEDICAID, SELFPAY | PROVIDERS: PCP Internal Medicine; Visit Provider Internal Medicine Endocrinology, Diabetes & Metabolism | DX: Z46.81 Encounter for fitting and adjustment of insulin pump (principal); E11.29 Type 2 diabetes mellitus with other diabetic kidney complication; Z79.4 Long term (current) use of insulin | CPT/HCPCS: 82947; 83036; 99211; 99212 ==

== ENCOUNTER 2024-01-31 14:01 | Outpatient (AMB) | payer MEDICAID, SELFPAY ==
--- NOTE | 2024-01-31 15:18 | A.OFFVIS_ITS ---
Intake Intake Visit Reasons: PUMP TRAINING Lay Out Carpenter Required: Yes Lay Out Carpenter Name: Annalee Information Interpreted: non-clinical & clinical Accompanied by: Daughter Allergies sulfamethoxazole [From BACTRIM] Allergy (Severe, Verified 01/31/24 13:28) FACIAL SWELLING trimethoprim [From BACTRIM] Allergy (Severe, Verified 01/31/24 13:28) FACIAL SWELLING levofloxacin [From LEVAQUIN] Allergy (Intermediate, Verified 01/31/24 13:28) REDNESS, SWELLING ITCHINESS AT IV SITE HPI Comprehensive Diabetes Asmnt Most Recent Diabetes Results: No Data to Display [facility] Medical History DEVYN (obstructive sleep apnea) Osteomyelitis Wound of left foot Asthma DM2 (diabetes mellitus, type 2) Hyperlipidemia LDL goal <100 CAD (coronary artery disease) Retinopathy Anxiety Depression Type 2 diabetes mellitus with hyperglycemia, with long-term current use of insulin Proteinuria Type 2 diabetes mellitus with other diabetic kidney complication Essential hypertension Obesity due to excess calories Type 2 diabetes mellitus with diabetic polyneuropathy Surgical History Hx of breast biopsy Hx of section Hx of tubal ligation Hx of coronary artery bypass surgery Family History Maternal Grandmother Diabetes Cervical cancer Brother Diabetes Sister Breast cancer Social History Household Members: Family Household Members Other:: 1 Housing: Apartment Alcohol intake: never Patient Tobacco Use Status: Never used Tobacco Second Hand Smoke Exposure: No service: No Current occupational status: unemployed Female Reproductive History Menstrual Age of Menarche: 11 Assessment & Plan Assessment & Plan (1) Type 2 diabetes mellitus with other diabetic kidney complication: Code(s): E11.29 - Type 2 diabetes mellitus with other diabetic kidney complication Plan: Patient presents for pump training for Omni pod 5 pump and CGM training today. The following topics were reviewed today: -Pump therapy basic concepts: Basal/bolus, insulin to carb ratio, correction factor, insulin on board -Device settings: Bluetooth/mobile connection (if applicable), correct date and time, sound volume -CGM settings(if integrated system): CGM graft views and trend arrows, alerts and alarms, Start new sensor ??? High Alert: 250 mg/dl ??? Low Alert: 70 mg/dl Insulin delivery settings Program insulin to carb ratio, correction factor, target blood glucose, suspend or resume insulin delivery, bolus limit and basal limit settings Instructed patient to only use room temperature insulin, how to load cartridge or fill pod, with insulin. Fill tubing and cannula (if applicable) Inserting infusion set or starting pod Troubleshooting after starting new pod or inserting new insulin set: Occlusion, adhesive tape sensitivity, redness Check BG 2 hours after site change Safety information: Importance of a backup plan, for manual injections, proper prescriptions and emergency supplies ketone strips, and rules for testing for ketones Patient was able to insert insulin set today without difficulty. Patient understands the basic concepts of pump therapy, how to give insulin for meals and snacks, how to troubleshoot for hyper and hypoglycemia. Setting verified by [facility] Setting [facility], see changes to patient's pump settings below Basal rate(s) (units/hour) : 12 AM? to 12 AM 1.4 units / hr Bolus setting Insulin Carbohydrate Ratio (s) 12 AM? to 12 PM? 1:5 12 PM to 12 AM? 1:4.5 Correction Factor / Sensitivity Factor 12 AM? to 12 PM? 1:25 Active Insulin Time:?4 hours Target(s): 12 AM to 12 AM ? 100 mg/dL Patient Instructions: Patient will follow-up with clinical staff educator in 1 week Coding Level of Care Code Est Pt Level 1 (92345) Diagnoses Type 2 diabetes mellitus with other diabetic kidney complication E11.29 Results AMB Hemoglobin A1c AMB Hemoglobin A1c 7.0 % Last Edit by SALUD Gallardo on 01/31/24 13:49
== END 2024-01-31 15:18 | disposition home or self-care (01) ==
PROVIDERS: PCP Internal Medicine; Visit Provider Registered Nurse Diabetes Educator
DX: E11.29 Type 2 diabetes mellitus with other diabetic kidney complication (principal)

== ENCOUNTER 2024-02-16 15:42 | Outpatient (REF) | payer MEDICAID, SELFPAY ==
--- NOTE | ~2024-02-16 | XR_ITS ---
EXAMINATION: XR CHEST CLINICAL INFORMATION: Cough, acute asthmatic exacerbation COMPARISON: None available. TECHNIQUE: 2 views of the chest were obtained. FINDINGS: The lungs are well-expanded and clear. Heart size and pulmonary vascularity is normal. There are median sternotomy sutures and mediastinal dalia from previous intervention. No gross bony abnormality seen. XR/XR chest 2V IMPRESSION: Unremarkable chest examination.
== END 2024-02-16 15:43 | disposition home or self-care (01) ==
LOC: HO.HHCX 15:42
PROVIDERS: Visit Provider Internal Medicine
DX: R05.1 Acute cough (principal); J45.21 Mild intermittent asthma with (acute) exacerbation
CPT/HCPCS: 71046; 87070

== ENCOUNTER 2024-03-12 13:26 | Outpatient (AMB) | payer MEDICAID, SELFPAY ==
--- NOTE | 2024-03-12 13:55 | A.OFFVIS_ITS ---
Intake Intake Visit Reasons: pump issues-lvm Activity Director Required: Yes Activity Director Language: Division Chief Name: Yana [facility] [place] Accompanied by: Daughter Allergies sulfamethoxazole [From BACTRIM] Allergy (Severe, Verified 01/31/24 13:28) FACIAL SWELLING trimethoprim [From BACTRIM] Allergy (Severe, Verified 01/31/24 13:28) FACIAL SWELLING levofloxacin [From LEVAQUIN] Allergy (Intermediate, Verified 01/31/24 13:28) REDNESS, SWELLING ITCHINESS AT IV SITE HPI Comprehensive Diabetes Asmnt Most Recent Diabetes Results: No Data to Display [facility] Medical History DEVYN (obstructive sleep apnea) Osteomyelitis Wound of left foot Asthma DM2 (diabetes mellitus, type 2) Hyperlipidemia LDL goal <100 CAD (coronary artery disease) Retinopathy Anxiety Depression Type 2 diabetes mellitus with hyperglycemia, with long-term current use of insulin Proteinuria Type 2 diabetes mellitus with other diabetic kidney complication Essential hypertension Obesity due to excess calories Type 2 diabetes mellitus with diabetic polyneuropathy Surgical History Hx of breast biopsy Hx of section Hx of tubal ligation Hx of coronary artery bypass surgery Family History Maternal Grandmother Diabetes Cervical cancer Brother Diabetes Sister Breast cancer Social History Household Members: Family Household Members Other:: 1 Housing: Apartment Alcohol intake: never Patient Tobacco Use Status: Never used Tobacco Second Hand Smoke Exposure: No service: No Current occupational status: unemployed Female Reproductive History Menstrual Age of Menarche: 11 Assessment & Plan Assessment & Plan (1) CKD stage 3 secondary to diabetes: Code(s): E11.22 - Type 2 diabetes mellitus with diabetic chronic kidney disease; N18.30 - Chronic kidney disease, stage 3 unspecified Plan: Patient presents for pump training for Omni pod 5 pump and CGM training today. The following topics were reviewed today: Patient experiencing hyperglycemia due to medication prescribed by public health worker for her allergies She has not been able to use auto mode with Omnipod 5 because she did not connect new Dexcom transmitter to Omnipod 5 PDM This was done at today's visit Will have Dr. Orozco send new prescription for Omnipod 5 pods patient changes Omnipod every 48 hours ??? High Alert: 250 mg/dl ??? Low Alert: 70 mg/dl Insulin delivery settings Program insulin to carb ratio, correction factor, target blood glucose, suspend or resume insulin delivery, bolus limit and basal limit settings Instructed patient to only use room temperature insulin, how to load cartridge or fill pod, with insulin. Fill tubing and cannula (if applicable) Inserting infusion set or starting pod Troubleshooting after starting new pod or inserting new insulin set: Occlusion, adhesive tape sensitivity, redness Check BG 2 hours after site change Safety information: Importance of a backup plan, for manual injections, proper prescriptions and emergency supplies ketone strips, and rules for testing for ketones Patient was able to insert insulin set today without difficulty. Patient understands the basic concepts of pump therapy, how to give insulin for meals and snacks, how to troubleshoot for hyper and hypoglycemia. Setting verified by [facility] Setting verified by [facility], see changes to patient's pump settings below Basal rate(s) (units/hour) : 12 AM? to 12 AM 1.4 units / hr Bolus setting Insulin Carbohydrate Ratio (s) 12 AM? to 12 PM? 1:5 12 PM to 12 AM? 1:4.5 Correction Factor / Sensitivity Factor 12 AM? to 12 PM? 1:25 Active Insulin Time:?4 hours Patient Instructions: Follow-up in 2 weeks Coding Level of Care Code Est Pt Level 1 (05003) Diagnoses CKD stage 3 secondary to diabetes E11.22; N18.30
== END 2024-03-12 13:57 | disposition home or self-care (01) ==
LOC: HO.ENCR 13:27
PROVIDERS: PCP Internal Medicine; Visit Provider Registered Nurse Diabetes Educator
DX: E11.22 Type 2 diabetes mellitus with diabetic chronic kidney disease (principal); N18.30 Chronic kidney disease, stage 3 unspecified

== ENCOUNTER → 2024-03-12 13:27 | Outpatient (BNVA) | payer MEDICAID, SELFPAY | PROVIDERS: PCP Internal Medicine; Visit Provider Registered Nurse Diabetes Educator | DX: Z46.81 Encounter for fitting and adjustment of insulin pump (principal); E11.22 Type 2 diabetes mellitus with diabetic chronic kidney disease; N18.30 Chronic kidney disease, stage 3 unspecified; Z79.4 Long term (current) use of insulin | CPT/HCPCS: 99211 ==

== ENCOUNTER 2024-03-22 13:39 | Outpatient (REF) | payer MEDICAID, SELFPAY ==
[2024-03-22 17:36] LABS: Anion Gap 14 (12-20); Blood Urea Nitrogen 21 mg/dL (9-16); Carbon Dioxide 26 mmol/L (22-29); Chloride 102 mmol/L (96-108); Estimated Glomerular Filt Rate 54; Potassium 3.8 mmol/L (3.3-5.1); Sodium 138 mmol/L (135-145)
== END 2024-03-22 13:40 | disposition home or self-care (01) ==
LOC: HO.HKASLDS 13:39
PROVIDERS: PCP Internal Medicine; Visit Provider Internal Medicine Nephrology
DX: I12.9 Hypertensive chronic kidney disease with stage 1 through stage 4 chronic kidney disease, or unspecified chronic kidney disease (principal); E11.22 Type 2 diabetes mellitus with diabetic chronic kidney disease; N18.30 Chronic kidney disease, stage 3 unspecified; E11.21 Type 2 diabetes mellitus with diabetic nephropathy
CPT/HCPCS: 36415; 80051; 82565; 84520; 99212

== ENCOUNTER 2024-03-22 13:39 | Outpatient (AMB) | payer MEDICAID, SELFPAY ==
--- NOTE | 2024-03-22 13:40 | HO.NEPHOV_ITS ---
Vital Signs 03/22/24 13:43 Height 5 ft 7 in Weight 207 lb 8 oz BMI 32.5 BP 100/80 Blood Pressure Location Lt brachial Position Sitting Pulse 88 Pulse Source Pulse Oximeter Pulse Oximetry (%) 95 Oxygen Delivery Method Room Air Intake Visit Reasons: 3 mon follow up/ LVM Ultimate Hoops Scoreboard Operator Required: No Accompanied by: Self / Same As Patient Allergies sulfamethoxazole [From BACTRIM] Allergy (Severe, Verified 03/22/24 13:45) FACIAL SWELLING trimethoprim [From BACTRIM] Allergy (Severe, Verified 03/22/24 13:45) FACIAL SWELLING levofloxacin [From LEVAQUIN] Allergy (Intermediate, Verified 03/22/24 13:45) REDNESS, SWELLING ITCHINESS AT IV SITE HPI Comments Details: I would the privilege of seeing Melissa who was accompanied by her daughter in the office today in follow-up of her chronic kidney disease on a background of diabetic nephropathy. She has history of vascular disease needing surgery for foot but currently denies any active peripheral arterial disease symptoms. She has history of coronary artery disease needing intervention. She is on LUIS inhibitor which is tolerating well. Her blood sugars are better controlled and her blood pressure is at goal. She denies any chest pain, shortness of breath, proximal nocturnal dyspnea, orthopnea, pedal edema, orthostatic or urinary symptoms. She does not take any nonsteroidal anti-inflammatories and maintain good hydration. She did not have any systemic complaints at the time this office visit [facility] Medical History DEVYN (obstructive sleep apnea) Osteomyelitis Wound of left foot Asthma DM2 (diabetes mellitus, type 2) Hyperlipidemia LDL goal <100 CAD (coronary artery disease) Retinopathy Anxiety Depression Type 2 diabetes mellitus with hyperglycemia, with long-term current use of ins ulin Proteinuria Type 2 diabetes mellitus with other diabetic kidney complication Essential hypertension Obesity due to excess calories Type 2 diabetes mellitus with diabetic polyneuropathy Surgical History Hx of breast biopsy Hx of section Hx of tubal ligation Hx of coronary artery bypass surgery Family History Maternal Grandmother Diabetes Cervical cancer Brother Diabetes Sister Breast cancer Social History Household Members: Family Household Members Other:: 1 Housing: Apartment Alcohol intake: never Patient Tobacco Use Status: Never used Tobacco Second Hand Smoke Exposure: No service: No Current occupational status: unemployed Female Reproductive History Menstrual Age of Menarche: 11 Physical Exam Const General: comfortable and no acute distress Orientation/consciousness: patient oriented x3 HEENT Head: Yes normocephalic Mouth: Normal oral and palatal mucosa present Eyes EOM: EOMs intact bilaterally Neck Neck: Yes supple Resp Auscultation: clear to auscultation bilaterally Cardio Jugular venous distension: no JVD Rate: regular rate GI Palpation (GI): Soft to palpation Auscultation: normal bowel sounds General: Yes no CVA tenderness Back/Spine/Pelvis Back: no CVA tenderness Skin General skin exam: no rashes or lesions noted Neuro General: patient oriented x3 and moves all extremities Extrem General: Yes no pedal edema Assessment & Plan Assessment & Plan (1) Hypertension: Code(s): I10 - Essential (primary) hypertension Category: Medical Qualifiers: Hypertension type: primary hypertension Qualified Code(s): I10 - Essential (primary) hypertension (2) Diabetic nephropathy: Code(s): E11.21 - Type 2 diabetes mellitus with diabetic nephropathy Category: Medical Qualifiers: Diabetes mellitus type: type 2 Qualified Code(s): E11.21 - Type 2 diabetes mellitus with diabetic nephropathy (3) CKD stage 3 secondary to diabetes: Code(s): E11.22 - Type 2 diabetes mellitus with diabetic chronic kidney disease; N18.30 - Chronic kidney disease, stage 3 unspecified Category: Medical Plan 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 She has proteinuria. Her blood sugar control is fair. Her blood pressure is at goal. She would benefit from a bit more weight loss. Her volume status is optimal. Her renal functions are at baseline. She has no active cardiac or peripheral arterial symptoms. C/W lisinopril to 15 mg daily. She was asked to repeat her blood work to check her serum creatinine and serum potassium given increase in dosage of LUIS inhibitor. I have also ordered urine protein creatinine ratio. No other medication changes were made. I shall consider starting her on Jardiance at next visit. Answered all questions and follow-up was given Orders: Orders Electrolytes Today E11.21 - Type 2 diabetes mellitus with diabetic nephropathy, E11.22 - Type 2 diabetes mellitus with diabetic chronic kidney disease, I10 - Es sential (primary) hypertension, N18.30 - Chronic kidney disease, stage 3 unspecified Creatinine Today E11.21 - Type 2 diabetes mellitus with diabetic nephropathy, E11.22 - Type 2 diabetes mellitus with diabetic chronic kidney disease, I10 - Essential (primary) hypertension, N18.30 - Chronic kidney disease, stage 3 unspecified Blood Urea Nitrogen Today E11.21 - Type 2 diabetes mellitus with diabetic nephropathy, E11.22 - Type 2 diabetes mellitus with diabetic chronic kidney disease, I10 - Essential (primary) hypertension, N18.30 - Chronic kidney disease, stage 3 unspecified Coding Level of Care Code Est Pt Level 4 (32148) Diagnoses Primary hypertension I10 Hypertension type: primary hypertension Diabetic nephropathy associated with type 2 diabetes mellitus E11. Diabetes mellitus type: type 2 CKD stage 3 secondary to diabetes E11.; N18.30
[2024-03-22 13:43] VITALS: BP 100/80; PULSE 88; O2SAT 95; BMI 32.5
== END 2024-03-22 14:02 | disposition home or self-care (01) ==
PROVIDERS: PCP Internal Medicine; Referring Provider Internal Medicine; Visit Provider Internal Medicine Nephrology
DX: I10 Essential (primary) hypertension (principal); E11.21 Type 2 diabetes mellitus with diabetic nephropathy; E11.22 Type 2 diabetes mellitus with diabetic chronic kidney disease; N18.30 Chronic kidney disease, stage 3 unspecified
CPT/HCPCS: 99214

== ENCOUNTER 2024-03-26 12:27 | Outpatient (AMB) | payer MEDICAID, SELFPAY ==
--- NOTE | 2024-03-26 12:46 | A.OFFVIS_ITS ---
Intake Intake Visit Reasons: DM/PUMP Repairer Engine Production Required: Yes Repairer Engine Production Language: [place]ian Accompanied by: Daughter Allergies sulfamethoxazole [From BACTRIM] Allergy (Severe, Verified 03/22/24 13:45) FACIAL SWELLING trimethoprim [From BACTRIM] Allergy (Severe, Verified 03/22/24 13:45) FACIAL SWELLING levofloxacin [From LEVAQUIN] Allergy (Intermediate, Verified 03/22/24 13:45) REDNESS, SWELLING ITCHINESS AT IV SITE HPI Comprehensive Diabetes Asmnt Most Recent Diabetes Results: Hemoglobin A1c 8.7 % 08/31/19 Microalb/Creat Ratio 125.6 ug/mg cr 11/01/22 Cholesterol 191 mg/dL 11/01/22 HDL Cholesterol 38 mg/dL 11/01/22 Triglycerides 164 mg/dL 11/01/22 Creatinine 1.07 mg/dL (0.5-1.4) 03/22/24 Blood Urea Nitrogen 21 mg/dL (9-16) H 03/22/24 Sodium 138 mmol/L (135-145) 03/22/24 Potassium 3.8 mmol/L (3.3-5.1) 03/22/24 Chloride 102 mmol/L (96-108) 03/22/24 Carbon Dioxide 26 mmol/L (22-29) 03/22/24 Calcium 9.6 mg/dL (8.4-10.2) 06/15/23 AST 15 U/L (5-31) 10/27/22 ALT 18 U/L (0-31) 10/27/22 Total Protein 8.0 g/dL (6.5-8.0) 10/27/22 Albumin 4.4 g/dL (3.5-5.0) 10/27/22 [facility] Medical History DEVYN (obstructive sleep apnea) Osteomyelitis Wound of left foot Asthma DM2 (diabetes mellitus, type 2) Hyperlipidemia LDL goal <100 CAD (coronary artery disease) Retinopathy Anxiety Depression Type 2 diabetes mellitus with hyperglycemia, with long-term current use of insulin Proteinuria Type 2 diabetes mellitus with other diabetic kidney complication Essential hypertension Obesity due to excess calories Type 2 diabetes mellitus with diabetic polyneuropathy Surgical History Hx of breast biopsy Hx of section Hx of tubal ligation Hx of coronary artery bypass surgery Family History Maternal Grandmother Diabetes Cervical cancer Brother Diabetes Sister Breast cancer Social History Household Members: Family Household Members Other:: 1 Housing: Apartment Alcohol intake: never Patient Tobacco Use Status: Never used Tobacco Second Hand Smoke Exposure: No service: No Current occupational status: unemployed Female Reproductive History Menstrual Age of Menarche: 11 Assessment & Plan Assessment & Plan (1) CKD stage 3 secondary to diabetes: Code(s): E11.22 - Type 2 diabetes mellitus with diabetic chronic kidney disease; N18.30 - Chronic kidney disease, stage 3 unspecified Plan: Patient presents for pump training for Omni pod 5 pump and CGM training today. The following topics were reviewed today: ??? High Alert: 250 mg/dl ??? Low Alert: 70 mg/dl Insulin delivery settings Average glucose for the past 2 weeks 233 mg/dL Patient above target 69% Patient at target 31% Patient below target 0% Patient's glucose for the past few days has been under much better control, patient reports she is added a cinnamon and waldo supplements, along with some type of Tea. Patient also reports she is over estimating the amount of carbs she is eating in order to get more insulin at mealtime Adjusted patient's insulin to carb ratio, asked patient not to over estimate amount of carbohydrates be as accurate as possible and we will review glucose in 2 weeks Inserting infusion set or starting pod Patient understands the basic concepts of pump therapy, how to give insulin for meals and snacks, how to troubleshoot for hyper and hypoglycemia. Setting verified by [facility], see changes to patient's pump settings below Basal rate(s) (units/hour) : 12 AM? to 12 AM 1.4 units / hr Bolus setting Insulin Carbohydrate Ratio (s) 12 AM? to 12 PM? 1:5 New 12 AM? to 12 PM? 1:4.5 12 PM to 12 AM? 1:4.5 New 12 PM to 12 AM? 1:4 Correction Factor / Sensitivity Factor 12 AM? to 12 PM? 1:25 Active Insulin Time:?4 hours Patient Instructions: Patient will follow-up with public health educator in 2 weeks Coding Level of Care Code Est Pt Level 1 (86149) Diagnoses CKD stage 3 secondary to diabetes E11.22; N18.30
== END 2024-03-26 13:03 | disposition home or self-care (01) ==
PROVIDERS: PCP Internal Medicine; Visit Provider Registered Nurse Diabetes Educator
DX: E11.22 Type 2 diabetes mellitus with diabetic chronic kidney disease (principal); N18.30 Chronic kidney disease, stage 3 unspecified

== ENCOUNTER → 2024-03-26 12:27 | Outpatient (BNVA) | payer MEDICAID, SELFPAY | PROVIDERS: PCP Internal Medicine; Visit Provider Registered Nurse Diabetes Educator | DX: Z46.81 Encounter for fitting and adjustment of insulin pump (principal); E11.22 Type 2 diabetes mellitus with diabetic chronic kidney disease; N18.30 Chronic kidney disease, stage 3 unspecified | CPT/HCPCS: 99211 ==

== ENCOUNTER → 2024-04-03 12:32 | Outpatient (REF) | payer MEDICAID, SELFPAY | LOC: HO.SL 12:32 | PROVIDERS: PCP Internal Medicine; Visit Provider Internal Medicine Pulmonary Disease | DX: G47.33 Obstructive sleep apnea (adult) (pediatric) (principal) | CPT/HCPCS: 95806 ==

== ENCOUNTER → 2024-04-03 12:52 | Outpatient (BNV) | payer MEDICAID, SELFPAY | PROVIDERS: PCP Internal Medicine; Visit Provider Internal Medicine | DX: R06.83 Snoring (principal) | CPT/HCPCS: 95806 ==

== ENCOUNTER 2024-04-03 15:09 | Outpatient (REF) | payer MEDICAID, SELFPAY | END 2024-04-03 15:10 | disposition home or self-care (01) | LOC: HO.MAMMO 15:09 | PROVIDERS: PCP Internal Medicine; Visit Provider Internal Medicine | DX: Z12.31 Encounter for screening mammogram for malignant neoplasm of breast (principal) | CPT/HCPCS: 77063; 77067 ==

== ENCOUNTER → 2024-04-03 15:15 | Outpatient (BNV) | payer MEDICAID, SELFPAY | PROVIDERS: PCP Internal Medicine; Visit Provider Radiology Diagnostic Radiology | DX: Z12.31 Encounter for screening mammogram for malignant neoplasm of breast (principal) | CPT/HCPCS: 77063; 77067 ==

== ENCOUNTER 2024-04-09 13:46 | Outpatient (AMB) | payer MEDICAID, SELFPAY ==
--- NOTE | 2024-04-09 14:16 | A.OFFVIS_ITS ---
Intake Intake Visit Reasons: DM Director Process Improvement Required: Yes Director Process Improvement Language: It Business Analyst Name: Leopoldo [id number] Information Interpreted: non-clinical & clinical Accompanied by: Daughter Allergies sulfamethoxazole [From BACTRIM] Allergy (Severe, Verified 03/22/24 13:45) FACIAL SWELLING trimethoprim [From BACTRIM] Allergy (Severe, Verified 03/22/24 13:45) FACIAL SWELLING levofloxacin [From LEVAQUIN] Allergy (Intermediate, Verified 03/22/24 13:45) REDNESS, SWELLING ITCHINESS AT IV SITE HPI Comprehensive Diabetes Asmnt Most Recent Diabetes Results: Creatinine 1.07 mg/dL (0.5-1.4) 03/22/24 Blood Urea Nitrogen 21 mg/dL (9-16) H 03/22/24 Sodium 138 mmol/L (135-145) 03/22/24 Potassium 3.8 mmol/L (3.3-5.1) 03/22/24 Chloride 102 mmol/L (96-108) 03/22/24 Carbon Dioxide 26 mmol/L (22-29) 03/22/24 PFSH Medical History DEVYN (obstructive sleep apnea) Osteomyelitis Wound of left foot Asthma DM2 (diabetes mellitus, type 2) Hyperlipidemia LDL goal <100 CAD (coronary artery disease) Retinopathy Anxiety Depression Type 2 diabetes mellitus with hyperglycemia, with long-term current use of insulin Proteinuria Type 2 diabetes mellitus with other diabetic kidney complication Essential hypertension Obesity due to excess calories Type 2 diabetes mellitus with diabetic polyneuropathy Surgical History Hx of breast biopsy Hx of section Hx of tubal ligation Hx of coronary artery bypass surgery Family History Maternal Grandmother Diabetes Cervical cancer Brother Diabetes Sister Breast cancer Social History Household Members: Family Household Members Other:: 1 Housing: Apartment Alcohol intake: never Patient Tobacco Use Status: Never used Tobacco Second Hand Smoke Exposure: No service: No Current occupational status: unemployed Female Reproductive History Menstrual Age of Menarche: 11 Assessment & Plan Assessment & Plan (1) CKD stage 3 secondary to diabetes: Code(s): E11.22 - Type 2 diabetes mellitus with diabetic chronic kidney disease; N18.30 - Chronic kidney disease, stage 3 unspecified Plan: Patient presents for pump training for Omni pod 5 pump and CGM training today. The following topics were reviewed today: ??? High Alert: 250 mg/dl ??? Low Alert: 70 mg/dl Insulin delivery settings Average glucose for the past 2 weeks 183 mg/dL Patient above target 50% Patient at target 50% Patient below target 0% Patient is in automatic mode 100% Patient's has improved since last visit, patient is still experiencing some postprandial hyperglycemia. Pipe patient denies any hypoglycemic events. Increased insulin to carb ratio for the afternoon and evening meals, patient also requested an increase in insulin prescription. Due to losing, 3 pods and reports she changes pods every 48 hours instead of every 72 [address]. Message sent to Dr. Orozco to update prescription Inserting infusion set or starting pod Patient understands the basic concepts of pump therapy, how to give insulin for meals and snacks, how to troubleshoot for hyper and hypoglycemia. Setting verified by [facility], see changes to patient's pump settings below Basal rate(s) (units/hour) : 12 AM? to 12 AM 1.4 units / hr Bolus setting Insulin Carbohydrate Ratio (s) 12 AM? to 12 PM? 1:4.5 12 PM to 12 AM? 1:4 New 12 PM to 12 AM? 1:3.5 Correction Factor / Sensitivity Factor 12 AM? to 12 PM? 1:25 Active Insulin Time:?4 hours Patient Instructions: Patient will contact telehealth nurse educator with any questions or concerns Patient will follow-up with telehealth nurse educator in 4 months Coding Level of Care Code Est Pt Level 1 (16186) Diagnoses CKD stage 3 secondary to diabetes E11.22; N18.30
== END 2024-04-09 14:18 | disposition home or self-care (01) ==
PROVIDERS: PCP Internal Medicine; Visit Provider Registered Nurse Diabetes Educator
DX: E11.22 Type 2 diabetes mellitus with diabetic chronic kidney disease (principal); N18.30 Chronic kidney disease, stage 3 unspecified

== ENCOUNTER → 2024-04-09 13:46 | Outpatient (BNVA) | payer MEDICAID, SELFPAY | PROVIDERS: PCP Internal Medicine; Visit Provider Registered Nurse Diabetes Educator | DX: E11.65 Type 2 diabetes mellitus with hyperglycemia (principal); E11.42 Type 2 diabetes mellitus with diabetic polyneuropathy; E11.29 Type 2 diabetes mellitus with other diabetic kidney complication; N18.30 Chronic kidney disease, stage 3 unspecified; Z79.4 Long term (current) use of insulin; Z96.41 Presence of insulin pump (external) (internal); Z46.81 Encounter for fitting and adjustment of insulin pump | CPT/HCPCS: 99211 ==

== ENCOUNTER 2024-06-05 12:56 | Outpatient (AMB) | payer MEDICAID, SELFPAY ==
--- NOTE | 2024-06-05 12:57 | A.OFFVIS_ITS ---
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 for PAD. She Was seeing a vein specialist in [facility] about two years ago but was discharged due to missed appointments. She is experiencing leg and foot pain when she walks. Is working on getting a walker as she has trouble ambulating , even at home. Left leg is worse. She gets on and off swelling in both legs as well. Patient is diabetic , previous smoker. 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 She reports that she has pain upon ambulation. She can barely go a block before she has some cramping and difficulty ambulating. She reports the cramping is more so in the calf. Upon discussion with her she is a nonsmoker but has been a diabetic for greater than 35 years. Of note she has undergone endovascular intervention on the left lower extremity and back in 2020. It also appears that she does have evidence of healed ulcerations. [facility] Medical History DEVYN (obstructive sleep apnea) Osteomyelitis Wound of left foot Asthma DM2 (diabetes mellitus, type 2) Hyperlipidemia LDL goal <100 CAD (coronary artery disease) Retinopathy Anxiety Depression Type 2 diabetes mellitus with hyperglycemia, with long-term current use of insulin Proteinuria Type 2 diabetes mellitus with other diabetic kidney complication Essential hypertension Obesity due to excess calories Type 2 diabetes mellitus with diabetic polyneuropathy Surgical History Hx of breast biopsy Hx of section Hx of tubal ligation Hx of coronary artery bypass surgery Family History Maternal Grandmother Diabetes Cervical cancer Brother Diabetes Sister Breast cancer Social History Household Members: Family Household Members Other:: 1 Housing: Apartment Alcohol intake: never Patient Tobacco Use Status: Never used Tobacco Second Hand Smoke Exposure: No service: No Current occupational status: unemployed Female Reproductive History Menstrual Age of Menarche: 11 Review of Systems Const All systems reviewed & are unremarkable except as noted in HPI and below Reports no additional complaints ENT Reports Normal hearing present Card Denies chest pain, Denies chest pain at rest, Denies chest pain with activity and Denies pedal edema Resp Denies cough GI Denies abdominal pain Musc Denies abnormal gait, Denies muscle cramps and Denies radiating pain into limb Skin/Breast Denies skin ulcer and Denies wounds Neuro Reports Normal hearing present and Denies abnormal gait Psych Reports no additional complaints Physical Exam Const General: cooperative, healthy appearing and comfortable Orientation/consciousness: oriented to person, oriented to place and oriented to time HEENT Head: Yes normal to inspection Neck Neck: Yes normal visual inspection Carotids: no bruits Chest Chest palpation & inspection: normal inspection of the chest Resp Effort & Inspection: normal respiratory effort and able to speak in complete sentences Auscultation: clear to auscultation bilaterally, no crackles, no rales, no rhonchi and no wheezes Cardio Other: Bilateral DP signals Rate: regular rate Rhythm: regular rhythm Heart sounds: S1 normal heart sound present and S2 normal heart sound present Bruits: no carotid bruits Peripheral pulses: Peripheral pulses 2+ throughout GI Inspection: Yes normal to inspection Skin Wounds: no wounds Hair: normal Neuro General: oriented to person, oriented to place and oriented to time Cranial nerves: Yes CN's II-XII intact bilaterally and Yes Normal hearing present Cognition (Neuro): normal cognition Motor exam (neuro): 5/5 motor strength present throughout Extrem Other: venous exam: No significant superficial varicosities or spider telangiectasias, minimal edema General: No clubbing, No cyanosis and No edema Psych Appearance: grossly normal Mental Status: mental status grossly normal Speech and movement: Normal speech and movement present Assessment & Plan Assessment & Plan (1) PAD (peripheral artery disease): Comment: 08/27/2020 - left posterior tibial stenting by Dr. Her Code(s): I73.9 - Peripheral vascular disease, unspecified Category: Medical Plan: In short patient has claudication. I did review the pathophysiology of peripheral vascular disease with the patient. In addition we did discuss routine conservative measures including a healthy diet and the importance of exercise and ambulation. We did discuss risk factor modification. We will order surveillance ultrasound of the lower extremities with noninvasive arterial testing. Unfortunately she had no follow-up after her procedure by interventional radiologist. Thank you for allowing us to participate in this patient's care. If there are any questions or concerns please do not hesitate to contact us. Orders: Orders US arterial duplex LE BI 1 Week I73.9 - Peripheral vascular disease, unsp ecified Coding Level of Care Code Est Pt Level 4 (75729) Diagnoses PAD (peripheral artery disease) I73.9
== END 2024-06-05 13:46 | disposition home or self-care (01) ==
PROVIDERS: PCP Internal Medicine; Visit Provider Surgery Vascular Surgery
DX: I73.9 Peripheral vascular disease, unspecified (principal)
CPT/HCPCS: 99214

== ENCOUNTER → 2024-06-05 12:56 | Outpatient (BNVA) | payer MEDICAID, SELFPAY | PROVIDERS: PCP Internal Medicine; Visit Provider Surgery Vascular Surgery | DX: I73.9 Peripheral vascular disease, unspecified (principal) | CPT/HCPCS: 99212 ==

== ENCOUNTER 2024-06-12 12:12 | Outpatient (REF) | payer MEDICAID, SELFPAY ==
[2024-06-12 13:58] LABS: Anion Gap 15 (12-20); Blood Urea Nitrogen 34 mg/dL (9-16); Carbon Dioxide 26 mmol/L (22-29); Chloride 103 mmol/L (96-108); Estimated Glomerular Filt Rate 36; Glucose Random 111 mg/dL (60-115); Potassium 4.1 mmol/L (3.3-5.1); Sodium 140 mmol/L (135-145)
[2024-06-12 14:02] LABS: B Type Natriuretic Peptide 155 pg/mL (<100)
== END 2024-06-12 12:13 | disposition home or self-care (01) ==
LOC: HO.LAB 12:12
PROVIDERS: Absent Provider Internal Medicine Nephrology; PCP Internal Medicine; Visit Provider Internal Medicine Cardiovascular Disease
DX: I50.9 Heart failure, unspecified (principal)
CPT/HCPCS: 36415; 80048; 83880

== ENCOUNTER 2024-06-18 13:16 | Outpatient (REF) | payer MEDICAID, SELFPAY ==
--- NOTE | ~2024-06-18 | US_ITS ---
EXAMINATION: Noninvasive assessment of the bilateral lower extremities with ARTERIAL DUPLEX and ANKLE BRACHIAL INDICES (ABIs). CLINICAL INFORMATION: Peripheral vascular disease, unspecified Additional Notes/Special Instructions Please do bilateral arterial ultrasound with limited MODESTO. If there is concern of inflow disease please do aortoiliac ultrasound as well TECHNIQUE: Duplex Doppler techniques with waveform analysis and measurement of velocities in the bilateral common femoral, profunda femoris, superficial femoral, popliteal and tibial arteries were performed. Additionally, ankle pulse volume recordings, ankle pressure measurements and ankle brachial indices were obtained of the lower extremity arterial system bilaterally. The study was performed only at rest. COMPARISON: None FINDINGS: DIRECT DUPLEX DOPPLER FINDINGS: RIGHT LEG: Common femoral artery: 166 cm/s, phasicity: Triphasic Profunda femoris artery: 124 cm/s, phasicity: Triphasic Superficial femoral artery (proximal): 240 cm/s, phasicity: Triphasic Superficial femoral artery (mid): 158 cm/s, phasicity: Triphasic Superficial femoral artery (distal): 301 cm/s, phasicity: Triphasic Popliteal artery: 41 cm/s, phasicity: Biphasic Posterior tibial artery: 28 cm/s, phasicity: Monophasic Peroneal artery: Occluded Anterior tibial artery: 142 cm/s, phasicity: Triphasic Dorsalis pedis artery: 98 cm/s, phasicity:Biphasic LEFT LEG: Common femoral artery: 110 cm/s, phasicity: Triphasic Profunda femoris artery: 106 cm/s, phasicity: Biphasic Superficial femoral artery (proximal): 177 cm/s, phasicity: Triphasic Superficial femoral artery (mid): 270 cm/s, phasicity: Triphasic Superficial femoral artery (distal): 99 cm/s, phasicity: Biphasic Popliteal artery: 105 cm/s, phasicity: Biphasic Posterior tibial artery: 234 cm/s, phasicity: Biphasic Peroneal artery: 155 cm/s, phasicity: Biphasic Anterior tibial artery: 60 cm/s, phasicity: Biphasic Dorsalis pedis artery: 53 cm/s, phasicity: Monophasic ANKLE-BRACHIAL INDEX: Right: 0.91? Left: 0.99 ANKLE PRESSURES: Right: Brachial 151, DP 154 Left: Brachial 170, PT 168, DP?160 ANKLE PVR WAVEFORMS: Right: Normal Left: Normal US/US arterial duplex BI w/ MODESTO IMPRESSION: Right leg: Two-vessel runoff to the right foot with occluded right peroneal artery. Dampened velocity and monophasic waveform of the right posterior tibial artery. Moderate stenosis of the right proximal superficial femoral artery and distal superficial femoral artery based on velocity criteria. Dampened velocity and waveform of the right popliteal artery. Left leg: Three-vessel runoff to the left foot. However, there is moderate stenosis of the posterior tibial artery and mild stenosis of the peroneal artery based on velocity criteria, as well as dampened velocity and waveform of the anterior tibial artery. MODESTO Reference: - >1.4 = calcified vessels - 0.9 - 1.4 = normal - no significant arterial disease - 0.7 - 0.89 = mild peripheral arterial disease - 0.51 - 0.69 = moderate peripheral arterial disease - ? 0.50 = severe peripheral arterial disease - < .30 = critical arterial disease
== END 2024-06-18 13:17 | disposition home or self-care (01) ==
LOC: HO.US 13:16
PROVIDERS: PCP Internal Medicine; Visit Provider Surgery Vascular Surgery
DX: I73.9 Peripheral vascular disease, unspecified (principal)
CPT/HCPCS: 93922; 93923; 93925

== ENCOUNTER 2024-06-25 10:42 | Outpatient (REF) | payer MEDICAID, SELFPAY ==
[2024-06-25 11:50] LABS: Anion Gap 12 (12-20); Blood Urea Nitrogen 25 mg/dL (9-16); Carbon Dioxide 29 mmol/L (22-29); Chloride 101 mmol/L (96-108); Cholesterol 246 mg/dL (<200); Estimated Glomerular Filt Rate 51; HDL Cholesterol 46 mg/dL (>40); LDL Cholesterol Calculated 163 mg/dL (<100); Potassium 4.3 mmol/L (3.3-5.1); Sodium 138 mmol/L (135-145); Triglycerides 186 mg/dL (<150)
[2024-06-25 12:13] LABS: Creatinine Urine 43.42 mg/dL; Protein/Creatinine Ratio, Ur 0.62 (<0.2); Total Protein Urine Random 27 mg/dL (<12)
[2024-06-25 19:15] LABS: Creatinine Urine 44.26 mg/dL; Microalbum/Creatinine Ratio Ur 415.7 ug/mg cr (<30)
== END 2024-06-25 10:43 | disposition home or self-care (01) ==
LOC: HO.LAB 10:42
PROVIDERS: Internal Medicine Nephrology; PCP Internal Medicine; Visit Provider Internal Medicine Endocrinology, Diabetes & Metabolism
DX: E11.29 Type 2 diabetes mellitus with other diabetic kidney complication (principal); E11.22 Type 2 diabetes mellitus with diabetic chronic kidney disease; N18.30 Chronic kidney disease, stage 3 unspecified; E11.21 Type 2 diabetes mellitus with diabetic nephropathy; I12.9 Hypertensive chronic kidney disease with stage 1 through stage 4 chronic kidney disease, or unspecified chronic kidney disease
CPT/HCPCS: 36415; 80051; 80061; 82043; 82565; 82570; 84156; 84520

== ENCOUNTER 2024-06-26 13:56 | Outpatient (AMB) | payer MEDICAID, SELFPAY ==
[2024-06-26 14:30] VITALS: BP 110/70; PULSE 90; O2SAT 100; BMI 32.4
--- NOTE | 2024-06-26 14:30 | HO.NEPHOV ---
Vital Signs 06/26/24 14:30 Height 5 ft 7 in Weight 207 lb BMI 32.4 BP 110/70 Blood Pressure Location Lt brachial Position Sitting Pulse 90 Pulse Source Pulse Oximeter Pulse Oximetry (%) 100 Oxygen Delivery Method Room Air Intake Visit Reasons: 3 mon follow up/ Conf w/daughter Oil Pump Station Operator Chief Required: Yes Oil Pump Station Operator Chief Services: Oil Pump Station Operator Chief Present Oil Pump Station Operator Chief Name: Orlando [id number] Information Interpreted: clinical only Allergies sulfamethoxazole [From BACTRIM] Allergy (Severe, Verified 06/26/24 14:32) FACIAL SWELLING trimethoprim [From BACTRIM] Allergy (Severe, Verified 06/26/24 14:32) FACIAL SWELLING levofloxacin [From LEVAQUIN] Allergy (Intermediate, Verified 06/26/24 14:32) REDNESS, SWELLING ITCHINESS AT IV SITE HPI Comments Details: I would the privilege of seeing Melissa who was accompanied by her daughter in the office today in follow-up of her chronic kidney disease on a background of diabetic nephropathy. She has history of vascular disease needing surgery for foot but currently denies any active peripheral arterial disease symptoms. She has history of coronary artery disease needing intervention. She is on LUIS inhibitor which is tolerating well. Her blood sugars are better controlled and her blood pressure is at goal. She denies any chest pain, shortness of breath, proximal nocturnal dyspnea, orthopnea, pedal edema, orthostatic or urinary symptoms. She does not take any nonsteroidal anti-inflammatories and maintain good hydration. She did not have any systemic complaints at the time this office visit [facility] Medical History DEVYN (obstructive sleep apnea) Osteomyelitis Wound of left foot Asthma DM2 (diabetes mellitus, type 2) Hyperlipidemia LDL goal <100 CAD (coronary artery disease) Retinopathy Anxiety Depression Type 2 diabetes mellitus with hyperglycemia, with long-term current use of insulin Proteinuria Type 2 diabetes mellitus with other diabetic kidney complication Essential hypertension Obesity due to excess calories Type 2 diabetes mellitus with diabetic polyneuropathy Surgical History Hx of breast biopsy Hx of section Hx of tubal ligation Hx of coronary artery bypass surgery Family History Maternal Grandmother Diabetes Cervical cancer Brother Diabetes Sister Breast cancer Social History Household Members: Family Household Members Other:: 1 Housing: Apartment Alcohol intake: never Patient Tobacco Use Status: Never used Tobacco Second Hand Smoke Exposure: No service: No Current occupational status: unemployed Female Reproductive History Menstrual Age of Menarche: 11 Physical Exam Vital Signs: Last Vital Signs Pulse 90 06/26/24 14:30 BP 110/70 06/26/24 14:30 Pulse Ox 100 06/26/24 14:30 Oxygen Delivery Method Room Air 06/26/24 14:30 BMI result Body Mass Index 32.4 Const General: comfortable and no acute distress Orientation/consciousness: patient oriented x3 HEENT Head: Yes normocephalic Mouth: Normal oral and palatal mucosa present Eyes EOM: EOMs intact bilaterally Neck Neck: Yes supple Resp Auscultation: clear to auscultation bilaterally Cardio Jugular venous distension: no JVD Rate: regular rate GI Palpation (GI): Soft to palpation Auscultation: normal bowel sounds General: Yes no CVA tenderness Back/Spine/Pelvis Back: no CVA tenderness Skin General skin exam: no rashes or lesions noted Neuro General: patient oriented x3 and moves all extremities Extrem General: Yes no pedal edema Results Reviewed Nephrology Results: Sodium 138 mmol/L (135-145) 06/25/24 Potassium 4.3 mmol/L (3.3-5.1) 06/25/24 Chloride 101 mmol/L (96-108) 06/25/24 Carbon Dioxide 29 mmol/L (22-29) 06/25/24 BUN 25 mg/dL (9-16) H 06/25/24 Creatinine 1.12 mg/dL (0.5-1.4) 06/25/24 Calcium 10.0 mg/dL (8.4-10.2) 06/12/24 Urine Creatinine 44.26 mg/dL 06/25/24 Protein/Creatinin Ratio 0.62 (<0.2) H 06/25/24 Assessment & Plan Assessment & Plan (1) CKD stage 3 secondary to diabetes: Code(s): E11.22 - Type 2 diabetes mellitus with diabetic chronic kidney disease; N18.30 - Chronic kidney disease, stage 3 unspecified Category: Medical (2) Diabetic nephropathy: Code(s): E11.21 - Type 2 diabetes mellitus with diabetic nephropathy Category: Medical Qualifiers: Diabetes mellitus type: type 2 Qualified Code(s): E11.21 - Type 2 diabetes mellitus with diabetic nephropathy (3) Hypertension: Code(s): I10 - Essential (primary) hypertension Category: Medical Qualifiers: Hypertension type: primary hypertension Qualified Code(s): I10 - Essential (primary) hypertension Plan 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 She has proteinuria. Her blood sugar control is fair. Her blood pressure is at goal. She would benefit from a bit more weight loss. Her volume status is optimal. Her renal functions are at baseline. She has no active cardiac or peripheral arterial symptoms. C/W lisinopril to 15 mg daily. She was asked to repeat her blood work to check her serum creatinine and serum potassium given increase in dosage of LUIS inhibitor. I have also ordered urine protein creatinine ratio. No other medication changes were made. Answered all questions and follow-up was given Orders: Orders Creatinine Today E11.21 - Type 2 diabetes mellitus with diabetic nephropathy, E11.22 - Type 2 diabetes mellitus with diabetic chronic kidney disease, I10 - Essential (primary) hypertension, N18.30 - Chronic kidney disease, stage 3 unspecified Blood Urea Nitrogen Today E11.21 - Type 2 diabetes mellitus with diabetic nephropathy, E11.22 - Type 2 diabetes mellitus with diabetic chronic kidney disease, I10 - Essential (primary) hypertension, N18.30 - Chronic kidney disease, stage 3 unspecified Electrolytes Today E11.21 - Type 2 diabetes mellitus with diabetic nephropathy, E11.22 - Type 2 diabetes mellitus with diabetic chronic kidney disease, I10 - Essential (primary) hypertension, N18.30 - Chronic kidney disease, stage 3 unspecified Coding Level of Care Code Est Pt Level 4 (15433) Diagnoses CKD stage 3 secondary to diabetes E11.22; N18.30 Diabetic nephropathy associated with type 2 diabetes mellitus E11.21 Diabetes mellitus type: type 2 Primary hypertension I10 Hypertension type: primary hypertension
== END 2024-06-26 14:48 | disposition home or self-care (01) ==
PROVIDERS: PCP Internal Medicine; Referring Provider Internal Medicine; Visit Provider Internal Medicine Nephrology
DX: E11.22 Type 2 diabetes mellitus with diabetic chronic kidney disease (principal); N18.30 Chronic kidney disease, stage 3 unspecified; E11.21 Type 2 diabetes mellitus with diabetic nephropathy; I10 Essential (primary) hypertension
CPT/HCPCS: 99214

== ENCOUNTER → 2024-06-26 13:56 | Outpatient (BNVA) | payer MEDICAID, SELFPAY | PROVIDERS: PCP Internal Medicine; Visit Provider Internal Medicine Nephrology | DX: E11.22 Type 2 diabetes mellitus with diabetic chronic kidney disease (principal); I12.9 Hypertensive chronic kidney disease with stage 1 through stage 4 chronic kidney disease, or unspecified chronic kidney disease; N18.30 Chronic kidney disease, stage 3 unspecified; E11.21 Type 2 diabetes mellitus with diabetic nephropathy | CPT/HCPCS: 99212 ==

== ENCOUNTER 2024-07-11 11:28 | Outpatient (AMB) | payer MEDICAID, SELFPAY ==
--- NOTE | 2024-07-11 11:32 | A.OFFVIS_ITS ---
Vital Signs 07/11/24 11:36 Height 5 ft 7 in Weight 200 lb 9.93 oz BMI 31.4 BP 100/60 Blood Pressure Location Rt brachial Position Sitting Pulse 86 Pulse Source Palpation Intake Visit Reasons: DM/LVM Intake Note: Patient presents today to re-establish treatment for Type 2 Diabetes Mellitus: Patient receives DME supplies through: Pharmacy Patient receives Insulin pump supplies through: Pharmacy Last Diabetic Eye exam: 01/2024 Last Podiatry Visit: Does not see a Hides And Skins Colorer Most recent HbA1c: 8.2%, 07/11/2024 Random Glucose- 97mg/dL, Today Window And Siding Craftsman Required: Yes Window And Siding Craftsman Language: Boatswains Mate Services: Window And Siding Craftsman Present Window And Siding Craftsman Name: SALUD Brock/MARY BETH JONES Information Interpreted: non-clinical & clinical Accompanied by: Self / Same As Patient Allergies sulfamethoxazole [From BACTRIM] Allergy (Severe, Verified 07/11/24 11:35) FACIAL SWELLING trimethoprim [From BACTRIM] Allergy (Severe, Verified 07/11/24 11:35) FACIAL SWELLING levofloxacin [From LEVAQUIN] Allergy (Intermediate, Verified 07/11/24 11:35) REDNESS, SWELLING ITCHINESS AT IV SITE HPI Comments Details: Patient is 48 yo female with DM type 2 diagnosed in approximately 1987, here for follow up management of diabetes. She reports that she has been using insulin shots every three days because she is running out of insulin in her pod. Her most recent A1c is 8.2% in the office today up from 7% 3 months ago but over all down from her usual trend. Currently on an Omnipod dash pump. Dexcom average glucose: [ 207] 14 day continous glucose monitor report reviewed TIme in range: [0 ] % very high (above 250) 80 % high ?(181-250) 20 % in range ?(70-180] 0 % low (69-55) 0 % ?very low (below 54) Details [she is in auto mode 44% of the time if she is using just insulin shots every 30 days she is only entering in 71 carbs per day. She typically eats 45 for breakfast and does have a dinner meal ] She is running out of insulin in the pod after 2 days and is going thr third day on insulin shots. TDD: 51%basal bolus 49% Basal rate(s) (units/hour) : 12 AM? to 12 AM 1.4 units / hr Bolus setting Insulin Carbohydrate Ratio (s) 12 AM? to 12 PM? 1:4.5 12 PM to 12 AM? 1:3.5 Correction Factor / Sensitivity Factor 12 AM? to 12 PM? 1:25 Active Insulin Time:?4 hours Past medical history: HTN, HLD, CAD Micro and macrovascular complications: + retinopathy, + neuropathy, + CAD, Symptoms: + numbness and tingling in legs. Hypoglycemia: rare hypoglycemia Hyperglycemia: denies polyuria, nocturia 2-3x/night Hides And Skins Colorer: Eye exam: last appt 01/04/2024 , + retinopathy Basal rate(s) (units/hour) : 12 AM? to 12 AM 1.4 units / hr Bolus setting Insulin Carbohydrate Ratio (s) 12 AM? to 12 PM? 1:4.5 12 PM to 12 AM? 1:4 New 12 PM to 12 AM? 1:3.5 Correction Factor / Sensitivity Factor 12 AM? to 12 PM? 1:25 Active Insulin Time:?4 hours [facility] Medical History DEVYN (obstructive sleep apnea) Osteomyelitis Wound of left foot Asthma DM2 (diabetes mellitus, type 2) Hyperlipidemia LDL goal <100 CAD (coronary artery disease) Retinopathy Anxiety Depression Type 2 diabetes mellitus with hyperglycemia, with long-term current use of insulin Proteinuria Type 2 diabetes mellitus with other diabetic kidney complication Essential hypertension Obesity due to excess calories Type 2 diabetes mellitus with diabetic polyneuropathy Surgical History Hx of breast biopsy Hx of section Hx of tubal ligation Hx of coronary artery bypass surgery Family History Maternal Grandmother Diabetes Cervical cancer Brother Diabetes Sister Breast cancer Social History Household Members: Family Household Members Other:: 1 Housing: Apartment Alcohol intake: never Patient Tobacco Use Status: Never used Tobacco Second Hand Smoke Exposure: No service: No Current occupational status: unemployed Female Reproductive History Menstrual Age of Menarche: 11 Physical Exam Vital Signs: Last Vital Signs Pulse 86 07/11/24 11:36 BP 100/60 07/11/24 11:36 BMI result Body Mass Index 31.4 Const Other: Absence of Cushingoid features. Absence of acromegalic features. Neck exam reveals nl size thyroid about 15 gms. No thyroid nodules palpable. skin exam reveals absence of vitiligo or acanthosis nigricans. Extrem Other: Visual exam of foot performed. No ulcerations or open lesions. No onchomycosis, no callouses. Sensation intact to monofilament exam. Vibratory sensation is normal with 128 Hz tuning fork. Scarring left foot plantar aspect, Results AMB Hemoglobin A1c AMB Hemoglobin A1c 8.2 % Last Edit by SALUD Brock on 07/11/24 11:53 Results Reviewed Results Reviewed: Laboratory Last Values Glucose (Clinic) 97 mg/dL (60-115) 07/11/24 11:42 Hgb A1c (Clinic) 8.2 % (4.0-6.0) H 07/11/24 11:35 Assessment & Plan Assessment & Plan (1) Type 2 diabetes mellitus with other diabetic kidney complication: Code(s): E11.29 - Type 2 diabetes mellitus with other diabetic kidney complication Category: Medical Plan: Type 2 diabetic with neuropathy, retinopathy and nephropathy presents today for diabetes management. She is on an Omnipod 5 system reports she is running out of pods as she often finds she either runs out of insulin in the pod or the pod falls off early and is converting to insulin shots. She reports problems with running out of insulin and also that the pods fall off. She is under counting her carbohydrate g entering in just 72 for the day. She does eat fairly light the perhaps eats an additional 30-40 carbs from what she is entering. I will obtain a prior authorization Orders: Orders AMB Hemoglobin A1c Today E11.29 - Type 2 diabetes mellitus with other diabetic kidney complication Coding Level of Care Code Est Pt Level 4 (77940) Complex EM visit Add On G2211 Diagnoses Type 2 diabetes mellitus with other diabetic kidney complication E11.29 Time Spent (min) 30 Comment Time spent reviewing labs/provider notes, glucose sensor/pump report face face, chart doc
[2024-07-11 11:36] VITALS: BP 100/60; PULSE 86; BMI 31.4
[2024-07-11 11:46] LABS: Glucose, Whole Blood 97 mg/dL (60-115)
== END 2024-07-11 12:17 | disposition home or self-care (01) ==
PROVIDERS: PCP Internal Medicine; Visit Provider Nurse Practitioner Adult Health
DX: E11.29 Type 2 diabetes mellitus with other diabetic kidney complication (principal); E11.40 Type 2 diabetes mellitus with diabetic neuropathy, unspecified; Z79.4 Long term (current) use of insulin
CPT/HCPCS: 99214

== ENCOUNTER → 2024-07-11 11:28 | Outpatient (BNVA) | payer MEDICAID, SELFPAY | PROVIDERS: PCP Internal Medicine; Visit Provider Nurse Practitioner Adult Health | DX: E11.65 Type 2 diabetes mellitus with hyperglycemia (principal); E11.29 Type 2 diabetes mellitus with other diabetic kidney complication; E11.42 Type 2 diabetes mellitus with diabetic polyneuropathy; Z79.4 Long term (current) use of insulin; Z96.41 Presence of insulin pump (external) (internal) | CPT/HCPCS: 82947; 83036; 99212 ==

== ENCOUNTER 2024-07-17 12:56 | Outpatient (AMB) | payer MEDICAID, SELFPAY ==
[2024-07-17 13:13] VITALS: BMI 31.3
--- NOTE | 2024-07-17 13:13 | MHC.OFFVIS ---
Vital Signs 07/17/24 13:13 Height 5 ft 7 in Weight 200 lb BMI 31.3 Intake Visit Reasons: Follow up Arterial US 06/18 Intake Note: follow up arterial US 06/18/24 for bilateral LE pain, Pressure on left LE pretibial area when ambulating. LE swelling at the end of the day, Left leg worse than right leg Allergies sulfamethoxazole [From BACTRIM] Allergy (Severe, Verified 07/17/24 13:14) FACIAL SWELLING trimethoprim [From BACTRIM] Allergy (Severe, Verified 07/17/24 13:14) FACIAL SWELLING levofloxacin [From LEVAQUIN] Allergy (Intermediate, Verified 07/17/24 13:14) REDNESS, SWELLING ITCHINESS AT IV SITE HPI HPI Follow up Arterial US 06/18: Details: Very pleasant 49-year-old female presents for follow-up evaluation regarding peripheral vascular disease. She has left leg swelling in this lateral foot ulcer. She has been a diabetic for greater than 35 years. She left lower extremity endovascular intervention back in [address] Beltran. She now presents to us for follow-up. [facility] Medical History DEVYN (obstructive sleep apnea) Osteomyelitis Wound of left foot Asthma DM2 (diabetes mellitus, type 2) Hyperlipidemia LDL goal <100 CAD (coronary artery disease) Retinopathy Anxiety Depression Type 2 diabetes mellitus with hyperglycemia, with long-term current use of insulin Proteinuria Type 2 diabetes mellitus with other diabetic kidney complication Essential hypertension Obesity due to excess calories Type 2 diabetes mellitus with diabetic polyneuropathy Surgical History Hx of breast biopsy Hx of section Hx of tubal ligation Hx of coronary artery bypass surgery Family History Maternal Grandmother Diabetes Cervical cancer Brother Diabetes Sister Breast cancer Social History Household Members: Family Household Members Other:: 1 Housing: Apartment Alcohol intake: never Patient Tobacco Use Status: Never used Tobacco Second Hand Smoke Exposure: No service: No Current occupational status: unemployed Female Reproductive History Menstrual Age of Menarche: 11 Review of Systems Const All systems reviewed & are unremarkable except as noted in HPI and below Reports no additional complaints ENT Reports Normal hearing present Card Denies chest pain, Denies chest pain at rest, Denies chest pain with activity and Denies pedal edema Resp Denies cough GI Denies abdominal pain Musc Denies abnormal gait, Denies muscle cramps and Denies radiating pain into limb Skin/Breast Denies skin ulcer and Denies wounds Neuro Reports Normal hearing present and Denies abnormal gait Psych Reports no additional complaints Physical Exam Vital Signs: BMI result Body Mass Index 31.3 Const General: cooperative, healthy appearing and comfortable Orientation/consciousness: oriented to person, oriented to place and oriented to time HEENT Head: Yes normal to inspection Neck Neck: Yes normal visual inspection Carotids: no bruits Chest Chest palpation & inspection: normal inspection of the chest Resp Effort & Inspection: normal respiratory effort and able to speak in complete sentences Auscultation: clear to auscultation bilaterally, no crackles, no rales, no rhonchi and no wheezes Cardio Other: Palpable posterior tibials bilaterally Rate: regular rate Rhythm: regular rhythm Heart sounds: S1 normal heart sound present and S2 normal heart sound present Bruits: no carotid bruits Peripheral pulses: Peripheral pulses 2+ throughout GI Inspection: Yes normal to inspection Skin Wounds: no wounds Hair: normal Neuro General: oriented to person, oriented to place and oriented to time Cranial nerves: Yes CN's II-XII intact bilaterally and Yes Normal hearing present Cognition (Neuro): normal cognition Motor exam (neuro): 5/5 motor strength present throughout Extrem Other: venous exam: No significant superficial varicosities or spider telangiectasias, minimal edema General: No clubbing, No cyanosis and No edema Psych Appearance: grossly normal Mental Status: mental status grossly normal Speech and movement: Normal speech and movement present Results Reviewed Results Reviewed: Noninvasive arterial testing dated 06/18/2024 demonstrates [place] on the right of 0.91 and on the left of 0.99 with reasonable waveforms. Written report and images were reviewed Assessment & Plan Assessment & Plan (1) PAD (peripheral artery disease): Comment: 08/27/2020 - left posterior tibial stenting by Dr. Her Code(s): I73.9 - Peripheral vascular disease, unspecified Category: Medical Plan: In short patient has stable peripheral vascular disease. She has normal arterial testing along with palpable pulses. At the current time would not recommend any intervention or follow-up. Would continue for strict diabetic control and risk factor modification. She will follow up with us on an as-needed basis Coding Level of Care Code Est Pt Level 4 (58070) Diagnoses PAD (peripheral artery disease) I73.9
== END 2024-07-17 13:36 | disposition home or self-care (01) ==
PROVIDERS: PCP Internal Medicine; Visit Provider Surgery Vascular Surgery
DX: I73.9 Peripheral vascular disease, unspecified (principal)
CPT/HCPCS: 99213

== ENCOUNTER → 2024-07-17 12:56 | Outpatient (BNVA) | payer MEDICAID, SELFPAY | PROVIDERS: PCP Internal Medicine; Visit Provider Surgery Vascular Surgery | DX: E11.51 Type 2 diabetes mellitus with diabetic peripheral angiopathy without gangrene (principal) | CPT/HCPCS: 99212 ==

== ENCOUNTER 2024-07-19 10:46 | Outpatient (AMB) | payer MEDICAID, SELFPAY ==
--- NOTE | 2024-07-19 10:51 | A.OFFVIS_ITS ---
Vital Signs 07/19/24 10:52 Height 5 ft 7 in Weight 200 lb BMI 31.3 BP 110/62 Blood Pressure Location Rt brachial Position Sitting Pulse 87 Pulse Source Doppler Pulse Oximetry (%) 95 Oxygen Delivery Method Room Air Intake Visit Reasons: Asthma/DEVYN Spinner Fixer Required: Yes Spinner Fixer Name: Aaliyah Banegas SteffTom Allergies sulfamethoxazole [From BACTRIM] Allergy (Severe, Verified 07/19/24 11:00) FACIAL SWELLING trimethoprim [From BACTRIM] Allergy (Severe, Verified 07/19/24 11:00) FACIAL SWELLING levofloxacin [From LEVAQUIN] Allergy (Intermediate, Verified 07/19/24 11:00) REDNESS, SWELLING ITCHINESS AT IV SITE HPI HPI Asthma/DEVYN: Details: 49-year-old lady, nonsmoker, with underlying obesity, DEVYN on CPAP, remote diagnosis of asthma, lost to follow-up for 2 years presents to reestablish care. Patient was been evaluated for immunologic therapy for underlying asthma and CPAP therapy for DEVYN. She did have a recent home sleep study which does not show significant PINEDA, however she is interested for chhaya ramirez. Patient also wants to proceed again with immunologic therapy for her underlying asthma suboptimally controlled on current regimen of Advair 250 and albuterol MDI. She denies acute exacerbations. [facility] Medical History (Updated 07/19/24 @ 11:21 by Ace Granda MD) Asthma DEVYN (obstructive sleep apnea) Osteomyelitis Wound of left foot DM2 (diabetes mellitus, type 2) Hyperlipidemia LDL goal <100 CAD (coronary artery disease) Retinopathy Anxiety Depression Type 2 diabetes mellitus with hyperglycemia, with long-term current use of insulin Proteinuria Type 2 diabetes mellitus with other diabetic kidney complication Essential hypertension Obesity due to excess calories Type 2 diabetes mellitus with diabetic polyneuropathy Surgical History Hx of breast biopsy Hx of section Hx of tubal ligation Hx of coronary artery bypass surgery Family History Maternal Grandmother Diabetes Cervical cancer Brother Diabetes Sister Breast cancer Social History Household Members: Family Household Members Other:: 1 Housing: Apartment Alcohol intake: never Patient Tobacco Use Status: Never used Tobacco Second Hand Smoke Exposure: No service: No Current occupational status: unemployed Female Reproductive History Menstrual Age of Menarche: 11 Review of Systems Const Reports daytime sleepiness, Denies excessive sweating, Reports fatigue, Denies fever(s), Denies lethargy, Denies malaise, Denies night sweats, Reports snoring and Denies weight loss Eyes Denies blurry vision and Denies itchy eyes ENT Denies nasal congestion, Denies post nasal drip, Denies sinus pain, Denies sinus pressure and Denies other ( Thrush) Card Denies chest pain, Denies pedal edema, Denies dyspnea, Denies orthopnea and Denies paroxysmal nocturnal dyspnea Resp Denies cough, Denies hemoptysis, Denies excessive phlegm production, Denies dyspnea, Reports snoring and Reports wheezing GI Denies abdominal pain and Denies heartburn Musc Denies myalgias, Denies arthralgias and Denies joint swelling Skin/Breast Denies rash Neuro Denies memory loss and Denies seizure-like activity Psych Denies abnormal sleep pattern, Denies anxiety and Denies memory loss Endo Denies excessive sweating, Reports fatigue and Denies heat intolerance Wyatt/Lymph Denies easy bruising Aller/Immun Denies itchy eyes, Denies seasonal rhinorrhea and Reports wheezing Physical Exam Vital Signs: Last Vital Signs Pulse 87 07/19/24 10:52 BP 110/62 07/19/24 10:52 Pulse Ox 95 07/19/24 10:52 Oxygen Delivery Method Room Air 07/19/24 10:52 BMI result Body Mass Index 31.3 Const General: no acute distress and alert Nutritional Appearance: not obese Orientation/consciousness: Other orientation findings ( oriented) HEENT Head: Yes atraumatic Eyes General: appearance normal, both eyes and all related structures Sclerae: sclerae normal EOM: EOMs intact bilaterally Neck Neck: Yes supple Lymphatic: no lymphadenopathy noted Resp Effort & Inspection: normal respiratory effort and no use of accessory muscles Auscultation: clear to auscultation bilaterally Cardio Rate: regular rate Rhythm: regular rhythm Heart sounds: no gallops, no murmurs and no rubs Skin General skin exam: other ( warm) Extrem General: No clubbing, No cyanosis and No edema Assessment & Plan Assessment & Plan (1) DEVYN (obstructive sleep apnea): Code(s): G47.33 - Obstructive sleep apnea (adult) (pediatric) Category: Medical Plan: Results of home sleep study reviewed, AHI under 5. Patient states that she is significantly symptomatic. Will obtain in lab sleep study. (2) Environmental allergies: Code(s): Z91.09 - Other allergy status, other than to drugs and biological substances Category: Medical Plan: Will obtain IgE level, CBC with differential, and RAST panel for further evaluation. (3) Asthma: Code(s): J45.909 - Unspecified asthma, uncomplicated Category: Medical Plan: Suboptimally controlled on Advair and albuterol MDI. Will evaluate for Xolair therapy. Orders: Orders Resp Allergy Profile Region I Today Z91.09 - Other allergy status, other than to drugs and biological substances Complete Blood Count Auto Diff Today Z91.09 - Other allergy status, other than to drugs and biological substances RT PSG in-lab sleep study Today G47.33 - Obstructive sleep apnea (adult) (pediatric) Coding Level of Care Code Est Pt Level 4 (30259) Diagnoses DEVYN (obstructive sleep apnea) G47.33 Environmental allergies Z91.09 Asthma J45.909
[2024-07-19 10:52] VITALS: BP 110/62; PULSE 87; O2SAT 95; BMI 31.3
== END 2024-07-19 11:13 | disposition home or self-care (01) ==
PROVIDERS: PCP Internal Medicine; Referring Provider Internal Medicine; Visit Provider Internal Medicine Pulmonary Disease
DX: G47.33 Obstructive sleep apnea (adult) (pediatric) (principal); Z91.09 Other allergy status, other than to drugs and biological substances; J45.909 Unspecified asthma, uncomplicated
CPT/HCPCS: 99214

== ENCOUNTER 2024-07-19 10:46 | Outpatient (REF) | payer MEDICAID, SELFPAY ==
[2024-07-19 11:40] LABS: MANUAL DIFF FLAG NO
[2024-07-19 11:59] LABS: Basophils Percent Auto 0.3 % (0-2); Eosinophils Absolute Auto 0.8 X10*3/uL (0.0-0.4); Eosinophils Percent Auto 8.7 % (0-4); Hematocrit 35.3 % (37.0-47.0); Hemoglobin 11.8 g/dl (12.0-16.0); Imm Gran Abs Auto 0.02 X10*3/uL (0.00-0.03); Imm Gran Pct Auto 0.2 % (0.0-0.4); Lymphocytes Absolute Auto 2.6 X10*3/uL (1.2-4.9); Mean Corpuscular HGB Conc 33.4 g/dl (31.0-35.0); Mean Corpuscular Hemoglobin 30.6 pg (27.0-33.0); Mean Corpuscular Volume 91.7 fL (80.0-98.0); Mean Platelet Volume 10.5 fL (9.4-12.3); Monocytes Absolute Auto 0.7 X10*3/uL (0.1-1.2); Monocytes Percent Auto 8.2 % (2-11); Neutrophils Absolute Auto 4.6 x10*3/uL (2.0-8.3); Neutrophils Percent Auto 52.6 % (45-73); Platelet Count 225 X10*3/uL (160-400); Red Blood Count 3.85 X10*6/uL (4.20-5.50); Red Cell Distribution Width 12.5 % (11.0-16.0); White Blood Count 8.7 X10*3/uL (4.8-10.8)
[2024-07-19 12:26] LABS: Anion Gap 13 (12-20); Blood Urea Nitrogen 27 mg/dL (9-16); Carbon Dioxide 27 mmol/L (22-29); Chloride 102 mmol/L (96-108); Estimated Glomerular Filt Rate 44; Potassium 4.2 mmol/L (3.3-5.1); Sodium 138 mmol/L (135-145)
[2024-07-26 03:03] LABS: Class Alternaria alternata 0; Class Aspergillus fumigatus 0; Class Bermuda Grass 0; Class Birch 0; Class Cat Dander 0; Class Cladosporium herbarum 0; Class Cockroach 0/1; Class Common Ragweed 0; Class Cottonwood 0; Class Derm. pterony 0; Class Dermatophagoides farinae 0; Class Dog Dander 2; Class Elm 0; Class Maple Box Elder 0; Class Mountain Cedar 0; Class Mouse Urine Protein 0; Class Mugwort 0; Class Oak 0; Class Penicillium crysogenum 0; Class Rough Pigweed 0; Class Sheep Sorrel 0; Class Sycamore 0; Class Timothy Grass 0; Class Walnut Tree 0; Class White Ash 0; Class White Mulberry 0; D001 IgE D pteronyssinus <0.10 kU/L; D002 - IgE D farinae <0.10 kU/L; E001 - IgE Cat Dander <0.10 kU/L; E005 - IgE Dog Dander 0.92 kU/L; E072-IgE Mouse Urine <0.10 kU/L; G002 IgE Bermuda Grass <0.10 kU/L; G006 - IgE Timothy Grass <0.10 kU/L; I006-IgE Cockroach, German 0.25 kU/L; Immunoglobulin E 227 kU/L (<OR=114); M001 IgE Penicillium chrysogen <0.10 kU/L; M002 - IgE Cladosporium herbar <0.10 kU/L; M003 - IgE Aspergillus fumigat <0.10 kU/L; M006 - IgE Alternaria alternat <0.10 kU/L; T001 IgE Maple/Box Elder <0.10 kU/L; T003 IgE Common Silver Birch <0.10 kU/L; T006 - IgE Cedar, Mountain <0.10 kU/L; T007 - IgE Oak, White <0.10 kU/L; T008 IgE Elm, American <0.10 kU/L; T010 - IgE Walnut <0.10 kU/L; T011 - IgE Maple Leaf Sycamore <0.10 kU/L; T014 - IgE Cottonwood <0.10 kU/L; T015 - IgE Ash, White <0.10 kU/L; T070 - IgE White Mulberry <0.10 kU/L; W001 - IgE Ragweed, Short <0.10 kU/L; W006 - IgE Mugwort <0.10 kU/L; W014 IgE Pigweed, Common <0.10 kU/L; W018 IgE Sheep Sorrel <0.10 kU/L
== END 2024-07-19 10:47 | disposition home or self-care (01) ==
LOC: HO.LAB 10:46
PROVIDERS: Internal Medicine Nephrology; PCP Internal Medicine; Visit Provider Internal Medicine Pulmonary Disease
DX: E11.22 Type 2 diabetes mellitus with diabetic chronic kidney disease (principal); N18.30 Chronic kidney disease, stage 3 unspecified; E11.21 Type 2 diabetes mellitus with diabetic nephropathy; I10 Essential (primary) hypertension; Z91.09 Other allergy status, other than to drugs and biological substances; G47.33 Obstructive sleep apnea (adult) (pediatric); J45.909 Unspecified asthma, uncomplicated
CPT/HCPCS: 36415; 80051; 82565; 82785; 84520; 85025; 86003; 99212

== ENCOUNTER → 2024-08-03 19:30 | Outpatient (REF) | payer MEDICAID, SELFPAY | LOC: HO.SL 19:30 | PROVIDERS: PCP Internal Medicine; Visit Provider Internal Medicine Pulmonary Disease | DX: G47.33 Obstructive sleep apnea (adult) (pediatric) (principal) | CPT/HCPCS: 95810 ==

== ENCOUNTER → 2024-08-03 23:26 | Outpatient (BNV) | payer MEDICAID, SELFPAY | PROVIDERS: PCP Internal Medicine; Visit Provider Psychiatry & Neurology Neurology | DX: G47.33 Obstructive sleep apnea (adult) (pediatric) (principal); G47.61 Periodic limb movement disorder | CPT/HCPCS: 95810 ==

== ENCOUNTER 2024-08-17 12:25 | Outpatient (AMB) | payer MEDICAID, SELFPAY ==
--- NOTE | 2024-08-17 12:36 | A.OFFVIS_ITS ---
Vital Signs 08/17/24 12:37 Height 5 ft 7 in Weight 205 lb 0.478 oz BMI 32.1 BP 106/62 Blood Pressure Location Rt brachial Position Sitting Pulse 91 Pulse Source Pulse Oximeter Intake Visit Reasons: DM/CONFIRMED Intake Note: Patient presents today to re-establish treatment for Type 2 Diabetes Mellitus: Patient receives DME supplies through: Pharmacy Patient receives Insulin pump supplies through: Pharmacy Last Diabetic Eye exam: 01/2024 Last Podiatry Visit: Does not see a Compressor Station Engineer Chief Most recent HbA1c: 8.2%, 07/11/2024 Random Glucose- 74mg/dL, Today 12:41 PM, re-checked 89 mg/dL 1:00 PM Alligator Hunter Required: Yes Alligator Hunter Language: Bailer Operators Supervisor Services: Alligator Hunter Present Alligator Hunter Name: SALUD Brock/MARY BETH FERNANDEZ Information Interpreted: non-clinical & clinical Accompanied by: Self / Same As Patient Allergies sulfamethoxazole [From BACTRIM] Allergy (Severe, Verified 07/19/24 11:00) FACIAL SWELLING trimethoprim [From BACTRIM] Allergy (Severe, Verified 07/19/24 11:00) FACIAL SWELLING levofloxacin [From LEVAQUIN] Allergy (Intermediate, Verified 07/19/24 11:00) REDNESS, SWELLING ITCHINESS AT IV SITE HPI Comments Details: Patient is 49 yo female with DM type 2 diagnosed in approximately 1987, here for follow up management of diabetes. Her most recent A1c was 8.2% on up from 7% 3 months ago but over all down from her usual trend. Currently on an Omnipod dash pump. Her sensor has not been pairing with her pump. Pump download shows she is only getting 11.5 units basal and 8.7units bolus daily average. She has been supplementing with injections. average glucose is 227 TIme in ranges: [33 ] % very high (above 250) [50 ] % high ?(181-250) [ 17] % in range ?(70-180] [ 0] % low (69-55) [0 ] % ?very low (below 54) Past medical history: HTN, HLD, CAD Micro and macrovascular complications: + retinopathy, + neuropathy, + CAD, Symptoms: + numbness and tingling in legs. Hypoglycemia: rare hypoglycemia Hyperglycemia: denies polyuria, nocturia 2-3x/night Compressor Station Engineer Chief: sees on a regular basis Eye exam: last appt 01/04/2024 , + retinopathy has appt next week COUNTS INCLUDE 234 BEDS AT THE [facility] Medical History (Updated 07/31/24 @ 10:47 by Ace Granda MD) Asthma DEVYN (obstructive sleep apnea) Osteomyelitis Wound of left foot DM2 (diabetes mellitus, type 2) Hyperlipidemia LDL goal <100 CAD (coronary artery disease) Retinopathy Anxiety Depression Type 2 diabetes mellitus with hyperglycemia, with long-term current use of insulin Proteinuria Type 2 diabetes mellitus with other diabetic kidney complication Essential hypertension Obesity due to excess calories Type 2 diabetes mellitus with diabetic polyneuropathy Surgical History Hx of breast biopsy Hx of section Hx of tubal ligation Hx of coronary artery bypass surgery Family History Maternal Grandmother Diabetes Cervical cancer Brother Diabetes Sister Breast cancer Social History Household Members: Family Household Members Other:: 1 Housing: Apartment Alcohol intake: never Patient Tobacco Use Status: Never used Tobacco Second Hand Smoke Exposure: No service: No Current occupational status: unemployed Female Reproductive History Menstrual Age of Menarche: 11 Physical Exam Vital Signs: Last Vital Signs Pulse 91 08/17/24 12:37 BP 106/62 08/17/24 12:37 BMI result Body Mass Index 32.1 Const Other: Absence of Cushingoid features. Absence of acromegalic features. Neck exam reveals nl size thyroid about 15 gms. No thyroid nodules palpable. Skin exam reveals absence of vitiligo or acanthosis nigricans. No edema Results Reviewed Results Reviewed: Laboratory Last Values Glucose (Clinic) 74 mg/dL (60-115) 08/17/24 12:41 Assessment & Plan Assessment & Plan (1) Type 2 diabetes mellitus with other diabetic kidney complication: Code(s): E11.29 - Type 2 diabetes mellitus with other diabetic kidney complication Category: Medical Plan: She was recommended to come back for the next available appointment with Marai G SHERMAN and stopped pump therapy until that time. She will bring in all her supplies. In interim she will take Lantus 34 units and has been dosing with 10- 12 units of Humalog with meals. Coding Level of Care Code Est Pt Level 2 (41511) Complex EM visit Add On G2211 Diagnoses Type 2 diabetes mellitus with other diabetic kidney complication E11.29 Time Spent (min) 20 Comment Time spent reviewing labs/provider notes, face to face, chart doc
[2024-08-17 12:37] VITALS: BP 106/62; PULSE 91; BMI 32.1
[2024-08-17 12:45] LABS: Glucose, Whole Blood 74 mg/dL (60-115)
[2024-08-17 13:30] LABS: Glucose, Whole Blood 89 mg/dL (60-115)
== END 2024-08-17 13:05 | disposition home or self-care (01) ==
PROVIDERS: PCP Internal Medicine; Visit Provider Nurse Practitioner Adult Health
DX: E11.29 Type 2 diabetes mellitus with other diabetic kidney complication (principal)
CPT/HCPCS: 99212

== ENCOUNTER → 2024-08-17 12:25 | Outpatient (BNVA) | payer MEDICAID, SELFPAY | PROVIDERS: PCP Internal Medicine; Visit Provider Nurse Practitioner Adult Health | DX: E11.29 Type 2 diabetes mellitus with other diabetic kidney complication (principal) | CPT/HCPCS: 82947; 99212 ==

== ENCOUNTER → 2024-09-13 12:30 | Outpatient (BNVA) | payer MEDICAID, SELFPAY | PROVIDERS: PCP Internal Medicine; Visit Provider Nurse Practitioner Adult Health | DX: E11.29 Type 2 diabetes mellitus with other diabetic kidney complication (principal); E11.40 Type 2 diabetes mellitus with diabetic neuropathy, unspecified; E11.21 Type 2 diabetes mellitus with diabetic nephropathy; E11.319 Type 2 diabetes mellitus with unspecified diabetic retinopathy without macular edema; I25.10 Atherosclerotic heart disease of native coronary artery without angina pectoris; Z96.41 Presence of insulin pump (external) (internal); Z79.4 Long term (current) use of insulin | CPT/HCPCS: 99212 ==

== ENCOUNTER 2024-09-17 12:29 | Outpatient (AMB) | payer MEDICAID, SELFPAY ==
--- NOTE | 2024-09-17 13:16 | A.OFFVIS_ITS ---
Intake Intake Visit Reasons: DM Farm Tractor Mechanic Required: Yes Farm Tractor Mechanic Language: Occupational Therapy Assistant Name: [id number] Accompanied by: Daughter Allergies sulfamethoxazole [From BACTRIM] Allergy (Severe, Verified 07/19/24 11:00) FACIAL SWELLING trimethoprim [From BACTRIM] Allergy (Severe, Verified 07/19/24 11:00) FACIAL SWELLING levofloxacin [From LEVAQUIN] Allergy (Intermediate, Verified 07/19/24 11:00) REDNESS, SWELLING ITCHINESS AT IV SITE HPI Comprehensive Diabetes Asmnt Most Recent Diabetes Results: Hemoglobin A1c 8.7 % 08/31/19 Microalb/Creat Ratio 415.7 ug/mg cr (<30) H 06/25/24 Cholesterol 246 mg/dL (<200) H 06/25/24 HDL Cholesterol 46 mg/dL (>40) 06/25/24 Triglycerides 186 mg/dL (<150) H 06/25/24 Creatinine 1.29 mg/dL (0.5-1.4) 07/19/24 Blood Urea Nitrogen 27 mg/dL (9-16) H 07/19/24 Sodium 138 mmol/L (135-145) 07/19/24 Potassium 4.2 mmol/L (3.3-5.1) 07/19/24 Chloride 102 mmol/L (96-108) 07/19/24 Carbon Dioxide 27 mmol/L (22-29) 07/19/24 Calcium 10.0 mg/dL (8.4-10.2) 06/12/24 AST 15 U/L (5-31) 10/27/22 ALT 18 U/L (0-31) 10/27/22 Total Protein 8.0 g/dL (6.5-8.0) 10/27/22 Albumin 4.4 g/dL (3.5-5.0) 10/27/22 [facility] Medical History (Updated 07/31/24 @ 10:47 by Ace Granda MD) Asthma DEVYN (obstructive sleep apnea) Osteomyelitis Wound of left foot DM2 (diabetes mellitus, type 2) Hyperlipidemia LDL goal <100 CAD (coronary artery disease) Retinopathy Anxiety Depression Type 2 diabetes mellitus with hyperglycemia, with long-term current use of insulin Proteinuria Type 2 diabetes mellitus with other diabetic kidney complication Essential hypertension Obesity due to excess calories Type 2 diabetes mellitus with diabetic polyneuropathy Surgical History Hx of breast biopsy Hx of section Hx of tubal ligation Hx of coronary artery bypass surgery Family History Maternal Grandmother Diabetes Cervical cancer Brother Diabetes Sister Breast cancer Social History Household Members: Family Household Members Other:: 1 Housing: Apartment Alcohol intake: never Patient Tobacco Use Status: Never used Tobacco Second Hand Smoke Exposure: No service: No Current occupational status: unemployed Female Reproductive History Menstrual Age of Menarche: 11 Assessment & Plan Assessment & Plan (1) Type 2 diabetes mellitus with other diabetic kidney complication: Code(s): E11.29 - Type 2 diabetes mellitus with other diabetic kidney complication Plan: Patient presents for pump training for Omni pod 5 pump and Dexcom G6 CGM training today. The following topics were reviewed today: ??? High Alert: 250 mg/dl ??? Low Alert: 70 mg/dl Patient has been off pump for since 2023, reports she has been having can activity issues with Dexcom G6 sensor, losing connection with pods and with cell phone. Discussed with patient wearing pods, and sensors and pod on side of the body, At today's visit reconnected Dexcom transmitter to Omnipod corn grower, instructed patient if she is still having can activity issues to switch transmitter and sensor. Patient given sample Dexcom G6 transmitter and sensor at today's visit Patient's Omnipod no longer loading pump information, to [place], patient did not recall Podder log in information. Message sent to insulin service dog trainer and ask them to contact patient with Hong Konger speaking tech person to help figure out user name, and reset password. At today's visit we reviewed how and when to test for urine ketones. Patient given instructions in Hong Konger Message sent to Dr. Orozco to send prescription for keto strips patient's pharmacy Inserting infusion set or starting pod Patient understands the basic concepts of pump therapy, how to give insulin for meals and snacks, how to troubleshoot for hyper and hypoglycemia. Setting verified by [facility], no changes made to patient's insulin pump settings at today's visit Basal rate(s) (units/hour) : 12 AM? to 12 AM 1.4 units / hr Bolus setting Insulin Carbohydrate Ratio (s) 12 AM? to 12 PM? 1:4.5 12 PM to 12 AM? 1:3.5 Correction Factor / Sensitivity Factor 12 AM? to 12 PM? 1:25 Active Insulin Time:?4 hours BG target range 110 mg/dL Correction threshold 120 mg/dL Patient will follow-up with senior health educator in 1 week Patient Instructions: Siga las instrucciones sobre c?mo analizar la orina para detectar cetonas. Recoja tiras de cetonas en la farmacia. Con la enfermera de Educaci?n sobre Diabetes en 1 semana Coding Level of Care Code Est Pt Level 1 (93907) Diagnoses Type 2 diabetes mellitus with other diabetic kidney complication E11.29
== END 2024-09-17 13:44 | disposition home or self-care (01) ==
LOC: HO.ENCR 12:30
PROVIDERS: PCP Internal Medicine; Visit Provider Registered Nurse Diabetes Educator
DX: E11.29 Type 2 diabetes mellitus with other diabetic kidney complication (principal)

== ENCOUNTER → 2024-09-17 12:29 | Outpatient (BNVA) | payer MEDICAID, SELFPAY | PROVIDERS: PCP Internal Medicine; Visit Provider Registered Nurse Diabetes Educator | DX: E11.29 Type 2 diabetes mellitus with other diabetic kidney complication (principal); Z96.41 Presence of insulin pump (external) (internal); Z79.4 Long term (current) use of insulin | CPT/HCPCS: 99211 ==

== ENCOUNTER 2024-09-19 12:55 | Outpatient (AMB) | payer MEDICAID, SELFPAY ==
[2024-09-19 13:06] VITALS: BP 117/69; PULSE 88; O2SAT 100; BMI 32.7
--- NOTE | 2024-09-19 13:06 | A.OFFVIS_ITS ---
Vital Signs 09/19/24 13:06 Height 5 ft 7 in Weight 209 lb BMI 32.7 BP 117/69 Blood Pressure Location Rt brachial Position Sitting Pulse 88 Pulse Source Doppler Pulse Oximetry (%) 100 Oxygen Delivery Method Room Air Intake Visit Reasons: Asthma/DEVYN Healthcare Administrative Assistant Required: Yes Healthcare Administrative Assistant Name: Aaliyah Banegas IrmaLKevinTom Allergies sulfamethoxazole [From BACTRIM] Allergy (Severe, Verified 07/19/24 11:00) FACIAL SWELLING trimethoprim [From BACTRIM] Allergy (Severe, Verified 07/19/24 11:00) FACIAL SWELLING levofloxacin [From LEVAQUIN] Allergy (Intermediate, Verified 07/19/24 11:00) REDNESS, SWELLING ITCHINESS AT IV SITE HPI HPI Asthma/DEVYN: Details: 49-year-old lady, nonsmoker, with underlying obesity, DEVYN on CPAP, remote diagnosis of asthma, lost to follow-up for 2 years presents to reestablish care. Patient was been evaluated for immunologic therapy for underlying asthma and CPAP therapy for DEVYN. After the last office visit patient had an in-lab sleep study that did not demonstrate any significant sleep apnea. She also had immunologic workup that showed significant allergic component to her symptoms. Patient was started on Xolair and reports significantly improved symptom control. She denies any recent exacerbations. She continues to use Advair and albuterol MDI. [facility] Medical History (Updated 07/31/24 @ 10:47 by Ace Granda MD) Asthma DEVYN (obstructive sleep apnea) Osteomyelitis Wound of left foot DM2 (diabetes mellitus, type 2) Hyperlipidemia LDL goal <100 CAD (coronary artery disease) Retinopathy Anxiety Depression Type 2 diabetes mellitus with hyperglycemia, with long-term current use of insulin Proteinuria Type 2 diabetes mellitus with other diabetic kidney complication Essential hypertension Obesity due to excess calories Type 2 diabetes mellitus with diabetic polyneuropathy Surgical History Hx of breast biopsy Hx of section Hx of tubal ligation Hx of coronary artery bypass surgery Family History Maternal Grandmother Diabetes Cervical cancer Brother Diabetes Sister Breast cancer Social History Household Members: Family Household Members Other:: 1 Housing: Apartment Alcohol intake: never Patient Tobacco Use Status: Never used Tobacco Second Hand Smoke Exposure: No service: No Current occupational status: unemployed Female Reproductive History Menstrual Age of Menarche: 11 Review of Systems Const Denies daytime sleepiness, Denies excessive sweating, Denies fatigue, Denies fever(s), Denies lethargy, Denies malaise, Denies night sweats, Denies snoring and Denies weight loss Eyes Denies blurry vision and Denies itchy eyes ENT Denies nasal congestion, Denies post nasal drip, Denies sinus pain, Denies sinus pressure and Denies other ( Thrush) Card Denies chest pain, Denies pedal edema, Denies dyspnea, Denies orthopnea and Denies paroxysmal nocturnal dyspnea Resp Denies cough, Denies hemoptysis, Denies excessive phlegm production, Denies dyspnea, Denies snoring and Denies wheezing GI Denies abdominal pain and Denies heartburn Musc Denies myalgias, Denies arthralgias and Denies joint swelling Skin/Breast Denies rash Neuro Denies memory loss and Denies seizure-like activity Psych Denies abnormal sleep pattern, Denies anxiety and Denies memory loss Endo Denies excessive sweating, Denies fatigue and Denies heat intolerance Wyatt/Lymph Denies easy bruising Aller/Immun Denies itchy eyes, Denies seasonal rhinorrhea and Denies wheezing Physical Exam Vital Signs: Last Vital Signs Pulse 88 09/19/24 13:06 BP 117/69 09/19/24 13:06 Pulse Ox 100 09/19/24 13:06 Oxygen Delivery Method Room Air 09/19/24 13:06 BMI result Body Mass Index 32.7 Const General: no acute distress and alert Nutritional Appearance: obese Orientation/consciousness: Other orientation findings ( oriented) HEENT Head: Yes atraumatic Eyes General: appearance normal, both eyes and all related structures Sclerae: sclerae normal EOM: EOMs intact bilaterally Neck Neck: Yes supple Lymphatic: no lymphadenopathy noted Resp Effort & Inspection: normal respiratory effort and no use of accessory muscles Auscultation: clear to auscultation bilaterally Cardio Rate: regular rate Rhythm: regular rhythm Heart sounds: no gallops, no murmurs and no rubs Skin General skin exam: other ( warm) Extrem General: No clubbing, No cyanosis and No edema Assessment & Plan Assessment & Plan (1) Severe persistent asthma: Code(s): Jarek45.50 - Severe persistent asthma, uncomplicated Category: Medical Plan: Significantly improved control after starting Xolair. Continue Xolair, Advair, and albuterol MDI. (2) Environmental allergies: Code(s): Z91.09 - Other allergy status, other than to drugs and biological substances Category: Medical Plan: Well controlled on Xolair. Continue current regimen. (3) DEVYN (obstructive sleep apnea): Code(s): G47.33 - Obstructive sleep apnea (adult) (pediatric) Category: Medical Plan: Results of in-lab sleep study reviewed, no underlying sleep apnea noted. Coding Level of Care Code Est Pt Level 4 (10253) Diagnoses Severe persistent asthma J45.50 Environmental allergies Z91.09 DEVYN (obstructive sleep apnea) G47.33
== END 2024-09-19 13:29 | disposition home or self-care (01) ==
LOC: HO.HPS 12:56
PROVIDERS: PCP Internal Medicine; Visit Provider Internal Medicine Pulmonary Disease
DX: J45.50 Severe persistent asthma, uncomplicated (principal); Z91.09 Other allergy status, other than to drugs and biological substances; G47.33 Obstructive sleep apnea (adult) (pediatric)
CPT/HCPCS: 99214

== ENCOUNTER → 2024-09-19 12:55 | Outpatient (BNVA) | payer MEDICAID, SELFPAY | PROVIDERS: PCP Internal Medicine; Visit Provider Internal Medicine Pulmonary Disease | DX: J45.50 Severe persistent asthma, uncomplicated (principal); G47.33 Obstructive sleep apnea (adult) (pediatric); Z91.09 Other allergy status, other than to drugs and biological substances | CPT/HCPCS: 99212 ==

== ENCOUNTER 2024-09-28 13:54 | Outpatient (AMB) | payer MEDICAID, SELFPAY ==
[2024-09-28 13:58] VITALS: BP 116/68; PULSE 80; BMI 32.1
--- NOTE | 2024-09-28 13:58 | A.OFFVIS_ITS ---
Vital Signs 09/28/24 13:58 Height 5 ft 7 in Weight 205 lb 0.478 oz BMI 32.1 BP 116/68 Blood Pressure Location Rt brachial Position Sitting Pulse 80 Pulse Source Pulse Oximeter Intake Visit Reasons: DM/CONFIRMED Intake Note: Patient presents today for a follow-up Type 2 Diabetes Mellitus: Patient receives DME supplies through: Pharmacy Patient receives Insulin pump supplies through: Pharmacy Last Diabetic Eye exam: 01/2024 Last Podiatry Visit: Does not see a Digital Printer Operator Most recent HbA1c: 8.2%, 07/11/2024 Random Glucose- 173 mg/dL, Today Vulcanizer Required: Yes Vulcanizer Language: Recruiting Operations Consultant Services: Vulcanizer Present (Via video call EVIIVO) Information Interpreted: non-clinical & clinical Accompanied by: Self / Same As Patient Allergies sulfamethoxazole [From BACTRIM] Allergy (Severe, Verified 11/01/24 14:15) FACIAL SWELLING trimethoprim [From BACTRIM] Allergy (Severe, Verified 11/01/24 14:15) FACIAL SWELLING levofloxacin [From LEVAQUIN] Allergy (Intermediate, Verified 11/01/24 14:15) REDNESS, SWELLING ITCHINESS AT IV SITE HPI Comments Details: Patient is 49 yo female with DM type 2 diagnosed in approximately 1987, here for follow up management of diabetes. She was last seen on 08/17/2024 at which time she reported difficulties with her pods falling off and her glucose sensor not pairing with her pump. At the time of her visit she had been supplementing with insulin shots and she was advised to stop pump therapy temporarily and schedule an appointment with the ems educator. Her most recent A1c is 8.2% up from 7% 3 months ago but over all down from her usual trend. Currently on an Omnipod dash pump. Takes Ozempic 0.5 mg weekly patient is runnning an average of 259 without low numbers increase after meals Basal rate(s) (units/hour) : 12 AM? to 12 AM 1.4 units / hr new 1.6 Bolus setting Insulin Carbohydrate Ratio (s) 12 AM? to 12 PM? 1:4.5 new 4.0 12 PM to 12 AM? 1:3.5 Correction Factor / Sensitivity Factor 12 AM? to 12 PM? 1:25 new 1:20 Active Insulin Time:?4 hours Has retinopathy: Last eye examination 01/04/24 Has neuropathy. Symptoms: + numbness and tingling in legs. She is on gabapentin. Has Nephropathy: 07/19/24 microalbumin 184 eGFR>44 last seen by Nephrology in July at which time Noel inhibitor dose was increased. Has CAD not on statin. Takes Zetia last LDL 163 on 06/25/2024 Hypoglycemia: rare hypoglycemia Hyperglycemia: denies polyuria, nocturia 2-3x/night [facility] Medical History (Updated 07/31/24 @ 10:47 by Ace Granda MD) Asthma DEVYN (obstructive sleep apnea) Osteomyelitis Wound of left foot DM2 (diabetes mellitus, type 2) Hyperlipidemia LDL goal <100 CAD (coronary artery disease) Retinopathy Anxiety Depression Type 2 diabetes mellitus with hyperglycemia, with long-term current use of in sulin Proteinuria Type 2 diabetes mellitus with other diabetic kidney complication Essential hypertension Obesity due to excess calories Type 2 diabetes mellitus with diabetic polyneuropathy Surgical History Hx of breast biopsy Hx of section Hx of tubal ligation Hx of coronary artery bypass surgery Family History Maternal Grandmother Diabetes Cervical cancer Brother Diabetes Sister Breast cancer Social History Household Members: Family Household Members Other:: 1 Housing: Apartment Alcohol intake: never Patient Tobacco Use Status: Never used Tobacco Second Hand Smoke Exposure: No service: No Current occupational status: unemployed Female Reproductive History Menstrual Age of Menarche: 11 Physical Exam Vital Signs: Last Vital Signs Pulse 80 09/28/24 13:58 BP 116/68 09/28/24 13:58 BMI result Body Mass Index 32.1 Const Other: Absence of Cushingoid features. Absence of acromegalic features. Neck exam rev eals nl size thyroid about 15 gms. No thyroid nodules palpable. Heart S1 S2, Reg R/R. No M/R G. Skin exam reveals absence of vitiligo or acanthosis nigricans. Results Reviewed Results Reviewed: Laboratory Last Values Glucose (Clinic) 173 mg/dL (60-115) H 09/28/24 14:01 Assessment & Plan Assessment & Plan (1) Type 2 diabetes mellitus with other diabetic kidney complication: Code(s): E11.29 - Type 2 diabetes mellitus with other diabetic kidney complication Category: Medical Plan: Type 2 diabetic with recent pump load with sugars well over 200. Settings were adjusted to approve numbers The patient had an opportunity to ask questions regarding treatment plan. The patient expressed understanding and agreement with the above treatment plan. The patient is aware they should contact our office by phone for worsening glucose readings or for any low blood sugars which may warrant a change in diabetes medication. Compliance is encouraged with medications and any followup testing/consults which may have been ordered. Medications: New semaglutide (Ozempic) 1 mg (0.75 mL) subcut QWEEK 3 mL 3RF 28 days [id number] 3.5mg-400 unit- 5,000 unit/gram (Neosporin ([id number])) 1 appl topical DAILY 14.2 grams 0RF 14 days Patient Instructions: The patient was counseled to always carry a source of sugar and on the rule of 15's: Take 3 glucose tablets and repeat again in 15 minutes if blood sugar is not in normal range. Continue to repeat every 15 minutes until blood sugar is normal. The patient was counseled to achieve a target A1C of 7% (154 avg). Fasting blood sugars should be 90-130 in the morning and less than 180 two hours after meals. Reviewed the relationship between poor diabetic control and the development of complications. Check your feet daily looking for any signs of infection, ulceration and seek medical attention if this occurs. Break in shoes gradually and do not wear open-toed shoes or walk barefooted. Coding Level of Care Code Est Pt Level 4 (98890) Complex EM visit Add On G2211 Diagnoses Type 2 diabetes mellitus with other diabetic kidney complication E11.29 Time Spent (min) 30 Comment Reviewing labs/provider notes, glucose sensor/pump reports, face to face, chart doc
[2024-09-28 14:18] LABS: Glucose, Whole Blood 173 mg/dL (60-115)
== END 2024-09-28 14:43 | disposition home or self-care (01) ==
PROVIDERS: PCP Internal Medicine; Visit Provider Nurse Practitioner Adult Health
DX: E11.29 Type 2 diabetes mellitus with other diabetic kidney complication (principal)
CPT/HCPCS: 99214

== ENCOUNTER → 2024-09-28 13:54 | Outpatient (BNVA) | payer MEDICAID, SELFPAY | PROVIDERS: PCP Internal Medicine; Visit Provider Nurse Practitioner Adult Health | DX: Z46.81 Encounter for fitting and adjustment of insulin pump (principal); E11.29 Type 2 diabetes mellitus with other diabetic kidney complication; Z79.4 Long term (current) use of insulin | CPT/HCPCS: 82947; 99212 ==

== ENCOUNTER 2024-10-15 13:04 | Outpatient (AMB) | payer MEDICAID, SELFPAY ==
[2024-10-15 08:57] VITALS: BMI 32.4
--- NOTE | 2024-10-15 13:30 | A.OFFVIS_ITS ---
VS Expanded 10/15/24 08:57 Height 5 ft 7 in Weight 207 lb 2.1 oz BMI 32.4 Intake Visit Reasons: DM Allergies sulfamethoxazole [From BACTRIM] Allergy (Severe, Verified 07/19/24 11:00) FACIAL SWELLING trimethoprim [From BACTRIM] Allergy (Severe, Verified 07/19/24 11:00) FACIAL SWELLING levofloxacin [From LEVAQUIN] Allergy (Intermediate, Verified 07/19/24 11:00) REDNESS, SWELLING ITCHINESS AT IV SITE Nutrition Presentation Details: Pt presents for MNT for T2DM Pt presents with daughter during this appt. Pt reports often skipping meals but finds herself having multiple snacks throughout the day Pt also admits to omitting boluses when having snack or underestimating the amount of carbohydrate Today we will review portion sizes of foods she typically consumes and amount of carbohydrates BS Monitoring Most Recent Diabetes Results: No Data to Display BJI-Jvmmusl-Db.Jeor Equation Height: 5 ft 7 in Weight: 207 lb Resting Metabolic Rate: 1589.70 Calculated Activity Level: Sedentary Calories Needed to Maintain Weight: 1907.64 Diagnosis Nutrition problem #1: food nutri know defi As related to (etiology) #1: diagnosis As evidenced by (sign/symptom) #1: knowledge deficit of diet (carbohydrate ) [facility] Medical History (Updated 07/31/24 @ 10:47 by Ace Granda MD) Asthma DEVYN (obstructive sleep apnea) Osteomyelitis Wound of left foot DM2 (diabetes mellitus, type 2) Hyperlipidemia LDL goal <100 CAD (coronary artery disease) Retinopathy Anxiety Depression Type 2 diabetes mellitus with hyperglycemia, with long-term current use of insulin Proteinuria Type 2 diabetes mellitus with other diabetic kidney complication Essential hypertension Obesity due to excess calories Type 2 diabetes mellitus with diabetic polyneuropathy Surgical History Hx of breast biopsy Hx of section Hx of tubal ligation Hx of coronary artery bypass surgery Family History Maternal Grandmother Diabetes Cervical cancer Brother Diabetes Sister Breast cancer Social History Household Members: Family Household Members Other:: 1 Housing: Apartment Alcohol intake: never Patient Tobacco Use Status: Never used Tobacco Second Hand Smoke Exposure: No service: No Current occupational status: unemployed Female Reproductive History Menstrual Age of Menarche: 11 Assessment & Plan Assessment & Plan (1) Diabetic nephropathy: Code(s): E11.21 - Type 2 diabetes mellitus with diabetic nephropathy Category: Medical Qualifiers: Diabetes mellitus type: type 2 Qualified Code(s): E11.21 - Type 2 diabetes mellitus with diabetic nephropathy Plan: Review counting carbohydrates for better estimation and improvement in BG Patient Instructions: See list of foods, portions and amount of carbohydrate per serving size weigh fruits at the supermarket Follow healthy plate method at dinner consisting of 60 g of carbs with lean protein and non starchy veg, 1 cup of christiana Coding Level of Care Code Nutr Indiv Subseq (38754) Diagnoses Diabetic nephropathy associated with type 2 diabetes mellitus E11.21 Diabetes mellitus type: type 2 Time Spent (min) 30
[2024-10-16 09:02] VITALS: BMI 32.4
== END 2024-10-15 14:08 | disposition home or self-care (01) ==
PROVIDERS: PCP Internal Medicine; Visit Provider Dietitian, Registered
DX: E11.21 Type 2 diabetes mellitus with diabetic nephropathy (principal)

== ENCOUNTER → 2024-10-15 13:04 | Outpatient (BNVA) | payer MEDICAID, SELFPAY | PROVIDERS: PCP Internal Medicine; Visit Provider Dietitian, Registered | DX: E11.21 Type 2 diabetes mellitus with diabetic nephropathy (principal); E66.01 Morbid (severe) obesity due to excess calories; Z68.32 Body mass index [BMI] 32.0-32.9, adult | CPT/HCPCS: 97803 ==

== ENCOUNTER 2024-10-24 15:36 | Outpatient (AMB) | payer MEDICAID, SELFPAY ==
--- NOTE | 2024-10-24 15:46 | A.OFFVIS_ITS ---
Vital Signs 10/24/24 15:47 Height 5 ft 7 in Weight 205 lb 4.006 oz BMI 32.1 BP 108/70 Blood Pressure Location Rt brachial Position Sitting Pulse 76 Pulse Source Pulse Oximeter Intake Visit Reasons: DM Intake Note: Patient presents today for D2MT follow up visit. Last Diabetic Eye exam: 09/2024 Last Podiatry Visit: Doesn't have one Random Glucose: 98 mg/dl HgA1c: 8.8% Gasoline Dragline Operator Required: Yes Gasoline Dragline Operator Language: Wood Router Services: Gasoline Dragline Operator Present Information Interpreted: non-clinical & clinical Accompanied by: Daughter Allergies sulfamethoxazole [From BACTRIM] Allergy (Severe, Verified 10/24/24 15:53) FACIAL SWELLING trimethoprim [From BACTRIM] Allergy (Severe, Verified 10/24/24 15:53) FACIAL SWELLING levofloxacin [From LEVAQUIN] Allergy (Intermediate, Verified 10/24/24 15:53) REDNESS, SWELLING ITCHINESS AT IV SITE HPI Comments Details: Patient is 49 yo female with DM type 2 diagnosed in approximately 1987, here for follow up management of diabetes. She was last seen on 09/28/2024 most recent A1c is 8.8% 10/24/24, 8.2% 08/17/24 up from 7% 3 months ago but over all down from her usual trend. Currently on an Omnipod dash pump. Takes Ozempic 0.5 mg weekly Basal rate(s) (units/hour) : 12 AM? to 12 AM 1.4 units / hr Bolus setting Insulin Carbohydrate Ratio (s) 12 AM? to 12 PM? 1:4.5 12 PM to 12 AM? 1:3.5 Correction Factor / Sensitivity Factor 12 AM? to 12 PM? 1:25 Active Insulin Time:?4 hours Has retinopathy: Last eye examination 01/04/24 Has neuropathy. Symptoms: + numbness and tingling in legs. She is on gabapentin. Has Nephropathy: 07/19/24 microalbumin 184 eGFR>44 last seen by Nephrology in July at which time Noel inhibitor dose was increased. Has CAD not on statin. Takes Zetia last LDL 163 on 06/25/2024 Hypoglycemia: rare hypoglycemia Hyperglycemia: denies polyuria, nocturia 2-3x/night [facility] Medical History (Updated 07/31/24 @ 10:47 by Ace Granda MD) Asthma DEVYN (obstructive sleep apnea) Osteomyelitis Wound of left foot DM2 (diabetes mellitus, type 2) Hyperlipidemia LDL goal <100 CAD (coronary artery disease) Retinopathy Anxiety Depression Type 2 diabetes mellitus with hyperglycemia, with long-term current use of insulin Proteinuria Type 2 diabetes mellitus with other diabetic kidney complication Essential hypertension Obesity due to excess calories Type 2 diabetes mellitus with diabetic polyneuropathy Surgical History Hx of breast biopsy Hx of section Hx of tubal ligation Hx of coronary artery bypass surgery Family History Maternal Grandmother Diabetes Cervical cancer Brother Diabetes Sister Breast cancer Social History Household Members: Family Household Members Other:: 1 Housing: Apartment Alcohol intake: never Patient Tobacco Use Status: Never used Tobacco Second Hand Smoke Exposure: No service: No Current occupational status: unemployed Female Reproductive History Menstrual Age of Menarche: 11 Physical Exam Vital Signs: Last Vital Signs Pulse 76 10/24/24 15:47 BP 108/70 10/24/24 15:47 BMI result Body Mass Index 32.1 Results AMB Hemoglobin A1c AMB Hemoglobin A1c 8.8 % Last Edit by SALUD Gallardo on 10/24/24 16:06 Results Reviewed Results Reviewed: Laboratory Last Values Glucose (Clinic) 98 mg/dL (60-115) 10/24/24 15:56 Assessment & Plan Assessment & Plan Orders: Orders AMB Hemoglobin A1c Today E11.29 - Type 2 diabetes mellitus with other diabetic kidney complication, Z13.9 - Encounter for screening, unspecified Medications: Discontinued semaglutide (Ozempic) Discontinued Reason: Doctor's Order 0.5 mg (0.736 mL) subcut QWEEK 3 mL 5RF E11.29 - Type 2 diabetes mellitus with other diabetic kidney complication Coding
[2024-10-24 15:47] VITALS: BP 108/70; PULSE 76; BMI 32.1
[2024-10-24 16:00] LABS: Glucose, Whole Blood 98 mg/dL (60-115)
== END 2024-10-24 16:15 | disposition home or self-care (01) ==
PROVIDERS: PCP Internal Medicine; Visit Provider Nurse Practitioner Adult Health
DX: Z13.9 Encounter for screening, unspecified (principal); E11.29 Type 2 diabetes mellitus with other diabetic kidney complication

== ENCOUNTER → 2024-10-24 15:36 | Outpatient (BNVA) | payer MEDICAID, SELFPAY | PROVIDERS: PCP Internal Medicine; Visit Provider Nurse Practitioner Adult Health | DX: Z46.81 Encounter for fitting and adjustment of insulin pump (principal); E11.29 Type 2 diabetes mellitus with other diabetic kidney complication; Z79.4 Long term (current) use of insulin | CPT/HCPCS: 82947; 83036; 99212 ==

== ENCOUNTER 2024-11-01 13:57 | Outpatient (AMB) | payer MEDICAID, SELFPAY ==
--- NOTE | 2024-11-01 14:13 | HO.NEPHOV_ITS ---
Vital Signs 11/01/24 14:16 Height 5 ft 7 in Weight 200 lb 6 oz BMI 31.4 BP 128/60 Blood Pressure Location Lt brachial Position Sitting Pulse 84 Pulse Source Pulse Oximeter Pulse Oximetry (%) 94 Oxygen Delivery Method Room Air Intake Visit Reasons: CKD/ R/S from 10/25/24-Conf w/daughter Passenger Relations Representative Required: Yes Passenger Relations Representative Language: Stretching Machine Operator Services: Passenger Relations Representative Offered & Declined ([facility] [place] [facility] larder services refused) Accompanied by: Daughter Allergies sulfamethoxazole [From BACTRIM] Allergy (Severe, Verified 11/01/24 14:15) FACIAL SWELLING trimethoprim [From BACTRIM] Allergy (Severe, Verified 11/01/24 14:15) FACIAL SWELLING levofloxacin [From LEVAQUIN] Allergy (Intermediate, Verified 11/01/24 14:15) REDNESS, SWELLING ITCHINESS AT IV SITE HPI Comments Details: Melissa who was accompanied by her daughter in the office today in follow-up of her chronic kidney disease on a background of diabetic nephropathy. She has history of vascular disease needing surgery for foot but currently denies any active peripheral arterial disease symptoms. She has history of coronary artery disease needing intervention. She is on LUIS inhibitor which is tolerating well. Her blood sugars are better controlled and her blood pressure is at goal. She denies any chest pain, shortness of breath, proximal nocturnal dyspnea, orthopnea, pedal edema, orthostatic or urinary symptoms. She does not take any nonsteroidal anti-inflammatories and maintain good hydration. She did not have any systemic complaints at the time this office visit [facility] Medical History (Updated 07/31/24 @ 10:47 by Ace Granda MD) Asthma DEVYN (obstructive sleep apnea) Osteomyelitis Wound of left foot DM2 (diabetes mellitus, type 2) Hyperlipidemia LDL goal <100 CAD (coronary artery disease) Retinopathy Anxiety Depression Type 2 diabetes mellitus with hyperglycemia, with long-term current use of insulin Proteinuria Type 2 diabetes mellitus with other diabetic kidney complication Essential hypertension Obesity due to excess calories Type 2 diabetes mellitus with diabetic polyneuropathy Surgical History Hx of breast biopsy Hx of section Hx of tubal ligation Hx of coronary artery bypass surgery Family History Maternal Grandmother Diabetes Cervical cancer Brother Diabetes Sister Breast cancer Social History Household Members: Family Household Members Other:: 1 Housing: Apartment Alcohol intake: never Patient Tobacco Use Status: Never used Tobacco Second Hand Smoke Exposure: No service: No Current occupational status: unemployed Female Reproductive History Menstrual Age of Menarche: 11 Review of Systems Const All systems reviewed & are unremarkable except as noted in HPI and below Physical Exam Const General: comfortable and no acute distress Orientation/consciousness: patient oriented x3 HEENT Head: Yes normocephalic Mouth: Normal oral and palatal mucosa present Eyes EOM: EOMs intact bilaterally Neck Neck: Yes supple Resp Auscultation: clear to auscultation bilaterally Cardio Jugular venous distension: no JVD Rate: regular rate GI Palpation (GI): Soft to palpation Auscultation: normal bowel sounds General: Yes no CVA tenderness Back/Spine/Pelvis Back: no CVA tenderness Skin General skin exam: no rashes or lesions noted Neuro General: patient oriented x3 and moves all extremities Extrem General: Yes no pedal edema Results Reviewed Nephrology Results: No Data to Display Assessment & Plan Assessment & Plan (1) Diabetic nephropathy: Code(s): E11.21 - Type 2 diabetes mellitus with diabetic nephropathy Category: Medical Qualifiers: Diabetes mellitus type: type 2 Qualified Code(s): E11.21 - Type 2 diabetes mellitus with diabetic nephropathy (2) CKD stage 3 secondary to diabetes: Code(s): E11.22 - Type 2 diabetes mellitus with diabetic chronic kidney disease; N18.30 - Chronic kidney disease, stage 3 unspecified Category: Medical (3) Hypertension: Code(s): I10 - Essential (primary) hypertension Category: Medical Qualifiers: Hypertension type: primary hypertension Qualified Code(s): I10 - Essential (primary) hypertension Plan 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 She has proteinuria. Her blood sugar control is fair. Her blood pressure is at goal. She would benefit from a bit more weight loss. Her volume status is optimal. Her renal functions had been at baseline, but has not had blood work for sometime. She has no active cardiac or peripheral arterial symptoms. C/W lisinopril to 15 mg daily. She was asked to repeat her blood work to check her serum creatinine and serum potassium given increase in dosage of LUIS inhibitor. I have also ordered urine protein creatinine ratio. No other medication changes were made. Answered all questions and follow-up was given Orders: Orders Creatinine Today E11.21 - Type 2 diabetes mellitus with diabetic nephropathy, E11.22 - Type 2 diabetes mellitus with diabetic chronic kidney disease, I10 - Essential (primary) hypertension, N18.30 - Chronic kidney disease, stage 3 unspecified Electrolytes 3 Months E11.21 - Type 2 diabetes mellitus with diabetic nephropathy, E11.22 - Type 2 diabetes mellitus with diabetic chronic kidney disease, I10 - Essential (primary) hypertension, N18.30 - Chronic kidney disease, stage 3 unspecified Blood Urea Nitrogen 3 Months E11.21 - Type 2 diabetes mellitus with diabetic nephropathy, E11.22 - Type 2 diabetes mellitus with diabetic chronic kidney disease, I10 - Essential (primary) hypertension, N18.30 - Chronic kidney disease, stage 3 unspecified Complete Blood Count Auto Diff 3 Months E11.21 - Type 2 diabetes mellitus with diabetic nephropathy, E11.22 - Type 2 diabetes mellitus with diabetic chronic kidney disease, I10 - Essential (primary) hypertension, N18.30 - Chronic kidney disease, stage 3 unspecified Blood Urea Nitrogen Today E11.21 - Type 2 diabetes mellitus with diabetic nephropathy, E11.22 - Type 2 diabetes mellitus with diabetic chronic kidney disease, I10 - Essential (primary) hypertension, N18.30 - Chronic kidney disease, stage 3 unspecified Electrolytes Today E11.21 - Type 2 diabetes mellitus with diabetic nephropathy, E11.22 - Type 2 diabetes mellitus with diabetic chronic kidney disease, I10 - Essential (primary) hypertension, N18.30 - Chronic kidney disease, stage 3 unspecified Protein Creatinine Ratio, Ur Today E11.21 - Type 2 diabetes mellitus with diabetic nephropathy, E11.22 - Type 2 diabetes mellitus with diabetic chronic kidney disease, I10 - Essential (primary) hypertension, N18.30 - Chronic kidney disease, stage 3 unspecified Parathyroid Hormone Intact 3 Months E11.21 - Type 2 diabetes mellitus with diabetic nephropathy, E11.22 - Type 2 diabetes mellitus with diabetic chronic kidney disease, I10 - Essential (primary) hypertension, N18.30 - Chronic kidney disease, stage 3 unspecified Vitamin D 25-OH Total 3 Months E11.21 - Type 2 diabetes mellitus with diabetic nephropathy, E11.22 - Type 2 diabetes mellitus with diabetic chronic kidney disease, I10 - Essential (primary) hypertension, N18.30 - Chronic kidney disease, stage 3 unspecified Creatinine 3 Months E11.21 - Type 2 diabetes mellitus with diabetic nephropathy, E11.22 - Type 2 diabetes mellitus with diabetic chronic kidney disease, I10 - Essential (primary) hypertension, N18.30 - Chronic kidney disease, stage 3 unspecified Calcium 3 Months E11.21 - Type 2 diabetes mellitus with diabetic nephropathy, E11.22 - Type 2 diabetes mellitus with diabetic chronic kidney disease, I10 - Essential (primary) hypertension, N18.30 - Chronic kidney disease, stage 3 unspecified Coding Level of Care Code Est Pt Level 4 (90016) Diagnoses Diabetic nephropathy associated with type 2 diabetes mellitus E11.21 Diabetes mellitus type: type 2 CKD stage 3 secondary to diabetes E11.22; N18.30 Primary hypertension I10 Hypertension type: primary hypertension
[2024-11-01 14:16] VITALS: BP 128/60; PULSE 84; O2SAT 94; BMI 31.4
== END 2024-11-01 14:26 | disposition home or self-care (01) ==
PROVIDERS: PCP Internal Medicine; Visit Provider Internal Medicine Nephrology
DX: E11.21 Type 2 diabetes mellitus with diabetic nephropathy (principal); E11.22 Type 2 diabetes mellitus with diabetic chronic kidney disease; N18.30 Chronic kidney disease, stage 3 unspecified; I10 Essential (primary) hypertension
CPT/HCPCS: 99214

== ENCOUNTER → 2024-11-01 13:57 | Outpatient (BNVA) | payer MEDICAID, SELFPAY | PROVIDERS: PCP Internal Medicine; Visit Provider Internal Medicine Nephrology | DX: E11.22 Type 2 diabetes mellitus with diabetic chronic kidney disease (principal); I12.9 Hypertensive chronic kidney disease with stage 1 through stage 4 chronic kidney disease, or unspecified chronic kidney disease; N18.30 Chronic kidney disease, stage 3 unspecified; E11.21 Type 2 diabetes mellitus with diabetic nephropathy | CPT/HCPCS: 99212 ==

== ENCOUNTER 2024-12-20 08:30 | Outpatient (AMB) | payer MEDICAID, SELFPAY ==
[2024-12-20 09:36] VITALS: BMI 31.6
--- NOTE | 2024-12-20 09:36 | A.OFFVIS_ITS ---
VS Expanded 12/20/24 09:36 Height 5 ft 7 in Weight 201 lb 11.567 oz BMI 31.6 Intake Visit Reasons: T2DM Allergies sulfamethoxazole [From BACTRIM] Allergy (Severe, Verified 11/01/24 14:15) FACIAL SWELLING trimethoprim [From BACTRIM] Allergy (Severe, Verified 11/01/24 14:15) FACIAL SWELLING levofloxacin [From LEVAQUIN] Allergy (Intermediate, Verified 11/01/24 14:15) REDNESS, SWELLING ITCHINESS AT IV SITE Nutrition Presentation Details: Pt presents for MNT f/u for t2dm Pt reports doing well, eating well, expresses not dietary concerns Food frequency fruits: 0-1/d dairy: 0-1/d starches >25 serving/d vegetables: 1 serving/d fish: not including pastries: 4x/wk fried foods 1/wk physical activity: ADL etoh/smoking:denies BS Monitoring Most Recent Diabetes Results: No Data to Display [facility] Medical History (Updated 07/31/24 @ 10:47 by Ace Granda MD) Asthma DEVYN (obstructive sleep apnea) Osteomyelitis Wound of left foot DM2 (diabetes mellitus, type 2) Hyperlipidemia LDL goal <100 CAD (coronary artery disease) Retinopathy Anxiety Depression Type 2 diabetes mellitus with hyperglycemia, with long-term current use of insulin Proteinuria Type 2 diabetes mellitus with other diabetic kidney complication Essential hypertension Obesity due to excess calories Type 2 diabetes mellitus with diabetic polyneuropathy Surgical History Hx of breast biopsy Hx of section Hx of tubal ligation Hx of coronary artery bypass surgery Family History Maternal Grandmother Diabetes Cervical cancer Brother Diabetes Sister Breast cancer Social History Household Members: Family Household Members Other:: 1 Housing: Apartment Alcohol intake: never Patient Tobacco Use Status: Never used Tobacco Second Hand Smoke Exposure: No service: No Current occupational status: unemployed Female Reproductive History Menstrual Age of Menarche: 11 Assessment & Plan Assessment & Plan (1) Diabetic nephropathy: Code(s): E11.21 - Type 2 diabetes mellitus with diabetic nephropathy Category: Medical Qualifiers: Diabetes mellitus type: type 2 Qualified Code(s): E11.21 - Type 2 diabetes mellitus with diabetic nephropathy Plan: Wt: 92Kg ( 12/15 ) Est kcal needs as per MSJ: 1900 (40% carb, 30% protein/fat) Est fluid needs as per 25-30 ml/d: 2800 Est prot per day as per 1 g/kg bw: 92 Recommend fiber intake : 8-10 g per day and gradually increase to 25-28 g per day for women and 35-38 g for men or as tolerated Recommend sodium intake per day : less than 2300 mg Educated patient on: ( R = reviewed V = verbalizes understanding N/R = needs review N/A = not applicable * Food sources of carbohydrate, adequate serving sizes and its role in various health conditions: R V * Differences between complex carbohydrates a simple carbohydrates, role of fiber in diet: R V * Lean protein sources of foods: R V * Differences between types of fats and role in diet (mono on saturated fat fatty acids, saturated fatty acids, trans fats): R * Food sources of sodium in salt and healthy modifications for heart health in kidney health: R * Vitamins and minerals: R V * Healthy plate method concept: R V * Physical activity: Benefits a precaution: R V * Hypoglycemia protocol (rule of 15): R V * Dietary prevention of Hyperglycemia: R V Patient Instructions: Choose lean protein foods and combine with foods rich in vitamin c ( chicken with spinach , carrots and peanut butter )- see list of ideas Coding Level of Care Code Nutr Indiv Subseq (28233) Diagnoses Diabetic nephropathy associated with type 2 diabetes mellitus E11.21 Diabetes mellitus type: type 2 Time Spent (min) 30
--- OUTSIDE RECORDS SUMMARY | 2024-12-20 11:16 | XMS_ITS | Encounter Summary ---
Author Organization [facility] Address [address] [place] [address] Care Team Providers Care Mass Spec Name Role Phone Yolie Desir MD Primary Care Provider + Reason for Visit * Reason Onset Date Comments Prior Authorization 10/28/2022 Encounter Details Date Type Department Care Team ([facility] st Contact Info) Description 10/28/2022 Telephone [facility] [address], [place] [phone] Yolie Desir MD [address], [place] [phone] Prior Authorization Social History Tobacco Use Types Packs/Day Years Used Date Smoking Tobacco: Never Assessed Comments Unknown Sex and Gender Information Value Date Recorded Sex Assigned at Female 09/20/2022 10:28 AM EDT Legal Sex Female 10:28 AM EDT Gender Identity Female 09/20/2022 10:28 AM EDT Sexual Orientation Choose not to disclose 2021 10:28 AM EDT documented as of this encounter Miscellaneous Notes * Telephone Encounter - Tiesha Banegas - 11/02/2022 12:52 PM EST PA initiated for provider * Telephone Encounter - Kaitlyn Hartmann - 11/02/2022 11:23 AM EST Tc from patient calling on the status of PA for medication Omnipods DASH Pods, Gen 4 (insulin disposable pump). documented in this encounter Plan of Treatment Upcoming Encounters Date Type Department Care Team (Late st Contact Info) Description 01/08/2025 2:00 PM EST Office Visit [facility] [address], [place] [phone] Yolie Desir MD [address], [place] [phone] documented as of this encounter Visit Diagnoses Not on filedocumented in this encounter Care Teams Mass Spec Relationship Specialty Start Date End Date Yolie Desir MD [address] [place] [address] [phone] PCP - General Family Medicine 10/26/19 documented as of this encounter
--- OUTSIDE RECORDS SUMMARY | 2024-12-20 11:16 | XMS_ITS | Encounter Summary ---
Author Organization [employer] Address [address] [place] [address] Care Team Providers Care Combination Machine Tool Operator Name Role Phone Yolie Desir MD Primary Care Provider + Reason for Visit * Reason Comments Med Refill Encounter Details Date Type Department Care Team ([facility] st Contact Info) Description 12/26/2023 Refill [facility] [address], [place] [phone] [facility] [address] [place] [address] Acute on chronic congestive heart failure, unspecified heart failure type (CMS/HCC) Social History Tobacco Use Types Packs/Day Years Used Date Smoking Tobacco: Never Smokeless Tobacco: Never Alcohol Use Standard Drinks/Week Comments Never 0 (1 standard drink = 0.6 oz pur e alcohol) Depression Answer Date Recorded Patient Health Questionnaire-9 Score 8 02/10/2023 Housing Stability Answer Date Recorded What is your housing situation today? I have felicity jin 09/12/[address] you li ve. Do you have problems with any of the following? None of the above 09/12/2023 Food Insecurity Answer Date Recorded Within the past 12 months, y ou worried that your food would run out before you got money to buy more: Never True 09/12/2023 Within the past 12 months,th e food you bought just didn't last and you didn't have enough money to get more: Never True Transportation Answer Date Recorded In the past 12 months, has l ack of transportation kept you from medical appts, meetings, work or from getting things needed for daily living? Yes, it has kept me from medical appointments or getting medications. 08/29/2023 Utilities Answer Date Recorded In the past 12 months, has t he electric, gas, oil or water company threatened to shut off services in your home? No 09/12/2023 Depression Answer Date Recorded Patient Health Questionnaire-2 Score 4 02/10/2023 Comments Unknown Sex and Gender Information Value Date Recorded Sex Assigned at Female 09/20/2022 10:28 AM EDT Legal Sex Female 10:28 AM EDT Gender Identity Female 09/20/2022 10:28 AM EDT Sexual Orientation Choose not to disclose 2021 10:28 AM EDT documented as of this encounter Plan of Treatment Upcoming Encounters Date Type Department Care Team (Late st Contact Info) Description 01/08/2025 2:00 PM EST Office Visit [facility] [address] [place] [address] Yolie Desir MD [address] [place] [phone] documented as of this encounter Visit Diagnoses Diagnosis Acute on chronic congestive heart failure, unspecified heart failure type (CMS/HCC) documented in this encounter Additional Health Concerns Assessment Noted Time PHQ-9 Depression Total Score: 8 02/11/20 23 9:24 AM EDT documented as of this encounter Care Teams Combination Machine Tool Operator Relationship Specialty Start Date End Date Yolie Desir MD [address] [place] [phone] PCP - General Family Medicine 10/26/19 documented as of this encounter
--- OUTSIDE RECORDS SUMMARY | 2024-12-20 11:16 | XMS_ITS | Encounter Summary ---
Author Organization [employer] Address [address] [place] [address] Care Team Providers Care Dining Room Supervisor Name Role Phone Yolie Desir MD Primary Care Provider + Reason for Visit * Reason Comments Med Refill Encounter Details Date Type Department Care Team ([facility] st Contact Info) Description 01/02/2024 Refill [facility] [address], [place] [phone] [facility] [address] [place] [address] Acute on chronic congestive heart failure, unspecified [...] Description 01/08/2025 2:00 PM EST Office Visit [facility] [address] [place] [address] Yolie Desir MD [address] [place] [address] documented as of this encounter Visit Diagnoses Diagnosis Acute on chronic congestive heart failure, unspecified heart failure type (CMS/HCC) documented in this encounter Additional Health Concerns Assessment Noted Time PHQ-9 Depression Total Score: 8 02/11/20 23 9:24 AM EDT documented as of this encounter Care Teams Dining Room Supervisor Relationship Specialty Start Date End Date Yolie Desir MD [address] [place] [phone] PCP - General Family Medicine 10/26/19 documented as of this encounter
--- OUTSIDE RECORDS SUMMARY | 2024-12-20 11:16 | XMS_ITS | Clinical Summary ---
Author Organization [employer] Address [address] [place] [address] Care Team Providers Care Powder Coater Name Role Phone Yolie Desir MD Primary Care Provider + Allergies Active Allergy Reactions Criticality Noted Date Comments Levofloxacin 03/15/2019 Sulfamethoxazole-Trimethopri m Other 04/13/2021 Macular Edema per Legacy Notes Medications Aspirin Low Dose 81 MG EC tablet TAKE 1 TABLET BY MOUTH EVERY EVENING Active clopidogrel (Plavix) 75 MG tablet TAKE 1 TABLET BY MOUTH EVERY MORNING Active digoxin (Lanoxin) 125 MCG tablet TAKE 1 TABLET BY MOUTH EVERY MORNING ON TUESDAY, TUESDAY, AND Tuesday Active EPINEPHrine (Epipen) 0.3 MG/0.3ML injection syringe INJECT INTRAMUSCULARLY DIRECTED ON PACKAGE AND GO TO EMERGENCY ROOM Active ezetimibe (Zetia) 10 MG tablet TAKE 1 TABLET BY MOUTH EVERY MORNING Active FreeStyle InsuLinx Test test strip USE SIX TIMES DAILY TO TEST BLOOD SUGAR Active Pentips 32G X 4 MM misc USE DIRECTED FOUR TIMES DAILY Active isosorbide mononitrate ER (Imdur) 30 MG 24 hr tablet TAKE 1 TABLET BY MOUTH EVERY MORNING Active lamoTRIgine (LaMICtal) 100 MG tablet TAKE 1 TABLET BY MOUTH AT BEDTIME Active TRUEplus Lancets 33G misc TEST BLOOD SUGAR SIX TIMES DAILY 10/28/2 022 Active nitroglycerin (Nitrostat) 0.4 MG SL tablet DISSOLVE 1 TABLET UNDER THE TONGUE EVERY 5 MINUTES NEEDED FOR CHEST PAIN. CALL 911 IF NO RELIEF Active rosuvastatin (Crestor) 40 MG tablet TAKE 1 TABLET BY MOUTH AT BEDTIME Active spironolactone (Aldactone) 25 MG tablet TAKE 1 TABLET BY MOUTH EVERY MORNING Active fluticasone (Flonase) 50 MCG/ACT nasal sprayIndication s:Allergic rhinitis, unspecified seasonality, unspecified trigger USE 1-2 SPRAYS IN EACH NOSTRIL EVERY DAY NEEDED 48 g 5 023 Active albuterol 108 (90 Base) MCG/ACT inhaler Inhale 2 puffs every 4 (four) hours if needed for wheezing or shortness of breath. 18 g 1 023 Active Spacer/Aero-Hol ding Chambers (OptiChamber Colleen) misc 1 each every 4 (four) hours if needed (asthma). 1 each 023 Active ammonium lactate (Amlactin) 12 % creamIndication s:Flexural eczema APPLY TO THE AFFECTED AREA(S) EVERY DAY DIRECTED 140 g 2 023 Active torsemide (Demadex) 20 MG tabletIndicatio ns:Acute on chronic congestive heart failure, unspecified heart failure type (CMS/HCC) Take 1 tablet by oral route twice daily 60 tablet 1 023 Active neomycin-bacitr acin-polymyxin (Neosporin) 5-400-5000 ointmentIndicat ions:Type 2 diabetes mellitus with diabetic peripheral angiopathy and gangrene, with long-term current use of insulin (CMS/HCC) Apply topically 2 times daily. 30 g 023 Active albuterol (2.5 MG/3ML) 0.083% nebulizer solution INHALE 1 AMPULE USING A NEBULIZER EVERY 6 HOURS NEEDED FOR WHEEZING OR SHORTNESS OF BREATH 90 mL 1 023 Active melatonin 5 MG tablet TAKE 1 TABLET BY MOUTH AT BEDTIME 30 tablet 024 Active doxepin (SINEquan) 10 MG capsule TAKE 1 TABLET BY MOUTH AT BEDTIME 30 capsule 024 Active FLUoxetine (PROzac) 20 MG capsule TAKE 1 CAPSULE BY MOUTH EVERY MORNING 30 capsule 024 Active insulin lispro (HumaLOG KWIKPEN) 100 UNIT/ML injectionIndica tions:Diabetic ulcer of left midfoot associated with type 2 diabetes mellitus, with fat layer exposed (CMS/HCC) Use TID Ac meals according to sliding scale: 150-200= 2u/201-250=4u/251- 300=6u/301-350=8u/ 351-400=10u/401 or higher=12u 1 each 2 024 Active Fluticasone-Philip meterol (Advair Diskus) 250-50 MCG/ACT aerosol powder INHALE 1 PUFF BY MOUTH TWICE DAILY IN THE MORNING AND IN THE EVENING RINSE MOUTH AFTER USING. 1 each 024 Active Ozempic, 0.25 or 0.5 MG/DOSE, 2 MG/3ML solution pen-injector INJECT 0.5 MG SUBCUTANEOUSLY EVERY WEEK 024 Active Insulin Disposable Pump (Omnipod 5 G6 Pods, Gen 5,) misc USE DIRECTED CHANGE EVERY 72 HOURS 024 Active lisinopril 10 MG tablet TAKE 1 AND 1/2 TABLETS BY MOUTH IN THE MORNING @ 730am Active Insulin Disposable Pump (Omnipod 5 G6 Intro, Gen 5,) kit USE DIRECTED Active Continuous Blood Gluc Transmit (Dexcom G6 transmitter) misc USE DIRECTED ONCE EVERY 3 MONTHS Active Continuous Blood Gluc Sensor (Dexcom G6 Sensor) misc USE DIRECTED. CHANGE EVERY 10 DAYS Active Continuous Blood Gluc Procurement Intern (Dexcom G6 wastewater treatment supervisor) device USE DIRECTED Active carvedilol (Coreg) 6.25 MG tablet TAKE 1 TABLET BY MOUTH TWICE DAILY IN THE MORNING AND IN THE EVENING Active loratadine (Claritin) 10 MG tabletIndicatio ns:Acute cough,Sore throat,Mild intermittent asthma with acute exacerbation Take 1 tablet (10 mg) by mouth in the morning. 15 tablet 024 Active ferrous gluconate (Fergon) 324 (38 Fe) MG tabletIndicatio ns:Iron deficiency anemia due to chronic blood loss TAKE 1 TABLET BY MOUTH TWICE DAILY AT NOON AND IN THE EVENING 180 tablet 3 024 Active Lantus SoloStar 100 UNIT/ML penIndications: Diabetic ulcer of left midfoot associated with type 2 diabetes mellitus, with fat layer exposed (CMS/HCC) INJECT 10 UNITS SUBCUTANEOUSLY AT BEDTIME 15 mL 2 024 Active mometasone (Elocon) 0.1 % ointment APPLY APPROXIMATELY 2 GRAMS TOPICALLY TO AFFECTED AREA(S) DAILY IN THE MORNING 45 g 3 024 Active triamcinolone (Kenalog) 0.1 % creamIndication s:Xerosis of skin APPLY TOPICALLY TWICE DAILY. MIX WITH CERAVE CREAM DIRECTED. 80 g 3 024 Active glucose (Glutose) 40 % gel oral gel Take 15 g by mouth if needed for low blood sugar. 60 g 11 024 Active gabapentin (Neurontin) 100 MG capsuleIndicati ons:Diabetic nephropathy associated with type 2 diabetes mellitus (CMS/HCC) TAKE 2 CAPSULES BY MOUTH THREE TIMES DAILY IN THE MORNING, EVENING AND BEDTIME 180 capsule 024 Active pantoprazole (ProtoNix) 40 MG EC tabletIndicatio ns:Epigastric pain TAKE 1 TABLET BY MOUTH EVERY MORNING 90 tablet 024 Active gabapentin (Neurontin) 100 MG capsuleIndicati ons:Diabetic nephropathy associated with type 2 diabetes mellitus (CMS/HCC) TAKE 2 CAPSULES BY MOUTH THREE TIMES DAILY IN THE MORNING, EVENING, AND BEDTIME 180 capsule 025 Active gabapentin (Neurontin) 100 MG capsuleIndicati ons:Diabetic nephropathy associated with type 2 diabetes mellitus (CMS/HCC) TAKE 2 CAPSULES BY MOUTH THREE TIMES DAILY IN THE MORNING, EVENING AND BEDTIME 180 capsule 024 2024 Discontinued Active Problems Problem Noted Date Diagnosed Date Lumbar radiculopathy, acute 08/02/2024 Assessment & Plan (08/02/2024 3:17 PM EDT): Patient is symptomatic now Refer to PT Advised re stretching exercises FU with me in 2m Diabetes mellitus type 2 with peripheral artery disease 03/29/2024 Overview (08/02/2024): LLE arterial duplex on 2019 ([facility]/Dr Bey): -Mod Sup Fem artery stenosis+ Ant tibial Artery Occlusion (mid and distally) -Patient left Dorsalis and Pedal arteries. [place] on 06/18 that showed occluded right peroneal artery. Moderate stenosis of the right proximal superficial femoral artery and distal superficial femoral artery. Left leg: moderate stenosis of the posterior tibial artery and mild stenosis of the peroneal artery. Assessment & Plan (08/02/2024 3:07 PM EDT): DM is better controlled on Insulin pump/ Continue close fu with endocrinology and DM educator. PAD is stable form previous arterial duplex on 2019, she will continue on ASA for now and will optimize RF. Fu with vascular surgery Q2y or earlier prn. I will fu with her after PT for lumbar radiculopathy is completed to evaluate/ro vascular claudication Assessment & Plan (06/29/2024 12:42 PM EDT): Controlled. A1c is not at goal. Advised to reach out to DM educator at endo office to teach her about Omnipod use. Continue to follow up with [employer] and change of medications. FU in 3 months. Assessment & Plan (03/29/2024 2:14 PM EDT): Last arterial US on 2018 showed left PAD, needed re vascularization Refer to Vascular surgery to update angiogram and decide further POC for revascularization. Dizziness 01/27/2024 Assessment & Plan (01/27/2024 10:53 AM EST): R/o Anemia due to recent menorrhagia, order labs Encouraged to increase water intake and fu with EXCEPTIONAL CHILDREN TEACHER ASSISTANT in June for pelvic exam She will fu this afternoon with , c engineer Carpal tunnel syndrome of right wrist 01/23/2024 Overview (01/23/2024): NCS at [facility] on 12/2023= Median nerve compression at wrist level. Assessment & Plan (01/23/2024 12:12 PM EST): Recommended to use right wrist brace at night and prn for activities that involve manipulation, she has a CPA to help with ADLs. Continue PT for right arm, will see if she needs addtl OT or steroid injection. 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 I congratulated her for reaching out to c engineer and compliance w/ medications I gave her information about diabetic diet, she's asking for more 1-1 butcher assistant coaching, so I gave her information about wt reduction programs in the area Continue close fu w/ c engineer insulin pump + Ozempic Pt had intraocular avantin injection recently w/ sig improvement of Sx, needs to fu w [facility] Left foot ulcer significantly improved Assessment & Plan (01/23/2024 12:15 PM EST): Right eye vision moderately improved. She should fu with [facility] For intraocular injection (Intravitreal avastin injection). Counseled re tight control of DM, fu with endo. Assessment & Plan (12/15/2023 3:55 PM EST): Has new right eye blindness, she should fu with [facility] For intraocular injection (Intravitreal avastin injection). Counseled re tight control of DM, fu with endo. Educated re insulin pump set up, to keep Humalog and Lantus as plan B and importance of appt compliance. Numbness and tingling of right arm 11/04/2023 Assessment & Plan (11/04/2023 12:21 PM EST): Rule out rotator cuff impingement Start PT Order nerve conduction study Diabetic ulcer of left midfo ot associated with diabetes mellitus due to underlying condition, limited to breakdown of skin 11/04/2023 Assessment & Plan (11/04/2023 12:23 PM EST): On left foot, superficial. Dressing done today Continue dressing with antibiotic ointment daily F/u with me in 3 weeks and will order x ray if needed Pipeline Controller appt on Cervical high risk HPV (human papillomavirus) te st positive 07/05/2023 Encounter for cervical Pap smear with pelvic exa m 03/15/2023 Assessment & Plan (03/15/2023 11:13 AM EDT): Received CPAP 3-4m ago and is doing well, feels very comfortable with it, see master IM. Patient is able to fu with supplier for supplies prn. I recommended her to continue using CPAP regularly,every night to decrease morbidity and mortality, patient agreed with POC. Will fu yearly for that or earlier prn Stress incontinence of urine 03/15/2023 Assessment & Plan (03/15/2023 1:43 PM EDT): discussed with pt regarding kegels exercises, continue using urinary pads or pullups FU at next visit. Screening mammogram for breast cancer 02/11/2023 Encounter for preventive health examination 01/20 Assessment & Plan (02/10/2023 10:07 AM EDT): Discussed with patient re increase fresh fruit and vegetable intake. Counseled re moderate exercise as tolerated, up to 20min/d Patient feels safe at home. PAP smear will schedule papsear here at the office Mammogram will order mammogram Eye exam up to date, next one due 07/2023 CRC screen discussed with pt about CRC options including colonoscopy and cologuard she agreed to cologuard. She had syncope on the day of colonoscopy Lipids/FBS TBO Vaccinations PCV20 and Covid booster today, order IZ titers Allergic rhinitis 11/16/2022 Anemia 11/16/2022 Primary osteoarthritis of both hips 11/16/2022 Blindness of both eyes 11/16/2022 Chronic sinusitis 11/16/2022 Diabetic ulcer of left midfo ot associated with type 2 diabetes mellitus, with fat layer exposed 11/16/2022 Assessment & Plan (03/29/2024 1:24 PM EDT): >>ASSESSMENT AND PLAN FOR CHRONIC ULCER OF LEFT FOOT WITH FAT LAYER EXPOSED (CMS/HCC) WRITTEN ON 02/10/2023 10:37 AM BY VIRGIE Brock. She needs to have daily blood sugar checks, recommended to check finger stick and fu with c engineer. I told pt to call c engineer office to fu on prescription of CGM sensor Continue lantus 50 units + Omnipod insulin pod Pt to continue regular wound care at wound clinic for left DM ulcer continue laser therapy on right eye. She is legally blind in the left eye. order labs and FU with me in 3 months Assessment & Plan (01/23/2024 12:14 PM EST): Significantly improving, fu with [facility] wound clinic I will order supplies to do dressings at home if needed Counseled re tight control of DM, change CGM device every 14d or use glucose meter and humalog as prescribed Continue Lantus 10U at bedtime and fu with Endocrinology this afternoon. Assessment & Plan (12/15/2023 3:46 PM EST): Slightly improving sp abs. Continue daily dressings FU with wound clinic. Counseled re tight control of DM. Rx humalog with new sliding scale + Lantus 10u/d, can increase by 2u every 4d if FBS >150 Patient has supplies for insulin pump, will try to see if our pharmacy can set it up with endo settings, otherwise patient is to use Humalog + Lantus as above. Distressed about housing issues 11/16/2022 Epigastric pain 11/16/2022 Fall 11/16/2022 Mild intermittent asthma 11/16/2022 Assessment & Plan (02/16/2024 2:51 PM EDT): Pt with known Asthma on Advair and Pro-Air now with acute onset of cough and sob with associated fever. Negative Flu, Neg Covid, Neg Strep Vital signs today within normal limits Exam indicative of an acute asthmatic exacerbation Plan: Prednisone taper, Continue to use inhaler, Z-Pack Chest x-ray to r/o CAP, Acetaminophen prn for fever, Tessalon Perles for cough prn Assessment & Plan (02/10/2023 10:36 AM EDT): last asthma exacerbation was 2 months ago, controlled at home, no recent ER visit Agreed to covid booster + PCV20 today influenza IZ up to date She is a nonsmoker fu with pulmonlongoist continue advair 250 + Proair PRN Posterior rhinorrhea 11/16/2022 Subacute osteomyelitis of left foot 11/16/2022 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 04/22/2021 Proteinuria 04/22/2021 Generalized ischemic myocardial dysfunction 11/23 Stage 3 chronic kidney disease 12/20/2018 Congestive heart failure 08/22/2018 Assessment & Plan (11/04/2023 12:04 PM EST): Needs to continue torsemide BID Prescription was sent to pharmacy Continue spironolactone, digoxin, and isosorbide. F/u with cardiology Assessment & Plan (03/15/2023 1:41 PM EDT): followed by cardiology will order refill for Plavix and isosorbide for 1 month so she can have her med box MARYLOU Essential hypertension 08/22/2018 Assessment & Plan (06/29/2024 4:12 PM EDT): Uncontrolled today, most likely controlled at home. Continue to monitor BP at home. Continue with medication Lisinopril, Spironolactone, Triamcinolone, and Carvedilol. F/u with renal and me in 3 months. Obesity (BMI 30-39.9) 08/22/2018 Assessment & Plan (03/29/2024 1:23 PM EDT): I gave her information about wt reduction program Discussed re lower calorie intake, increase dietary fiber Severe recurrent major depre ssion without psychotic features 08/22/2018 Mass of axilla 06/03/2017 Flexural eczema 09/16/2015 Generalized anxiety disorder 09/16/2015 Assessment & Plan (11/04/2023 1:28 PM EST): Seems to be doing well with psychiatry F/u with Dr. Del Cid Prescription for one month for melatonin, Fluoxetine, and Doxepin Assessment & Plan (03/15/2023 1:44 PM EDT): followed by Dr. Del Cid. I will send refill for doxepin, fluoxetine, melatonin, and lamictal x1 month as above Microalbuminuric diabetic nephropathy 09/16/2015 Assessment & Plan (06/29/2024 4:13 PM EDT): Seen by renal, doing well. Advised regarding tighter control of DM and HTN. F/u with me in 6 months. Type 2 diabetes mellitus 09/16/2015 Assessment & Plan (08/02/2024 3:15 PM EDT): Controlled, last A1c on 01/2024 was at goal. I will do A1c at upcoming regular visit Patient had episode of hypoglycemia today, probably due to miscalculation of insulin dose adjustment. She will fu on Tuesday with in service educator. She received glucose load today and BS remained in the 50s after 45min despite patient being totally asymptomatic/sxs had resolved. She was discharged home with indication to have a small meal with half plate of protein. She left with her daughter who was accompanying her to this appt I called the patient at 3pm and her BS was 92 and she was feeling fine. Assessment & Plan (11/04/2023 2:41 PM EST): Uncontrolled Unclear if insulin pump is working properly Told patient to call endocrinology MARYLOU to see if pump can be replaced sooner vs. Move temporarily to sc Lantus + Humalog Vaginal bleeding 09/16/2015 Trigger ring finger of left hand 08/21/2015 Knee pain 07/23/2015 Resolved Problems Problem Noted Date Diagnosed Date Resolved Date Type 2 diabetes mellitus wit h diabetic peripheral angiopathy and gangrene, with long-term current use of insulin 02/15/2024 024 Cough 02/15/2024 03/29/2024 Assessment & Plan (02/15/2024 2:13 PM EDT): Patient with viral illness symptoms for the last 5 days, discussed that will need to see to provide an appropriate evaluation. She has various medical conditions including asthma, CHF vs other. Informed about the [facility] and visit ED, she request an appointment for tomorrow, made. Acute renal failure syndrome 04/22/2021 03/29/2024 Constipation 03/26/2016 03/29/2024 Acute on chronic systolic heart failure 03/18/2016 03/29/2024 S/P CABG x 3 03/18/2016 03/29/2024 Encounters Date Type Department Care Team Description 12/04/2024 Refill [facility] [address] [place] [address] Yolie Desir MD Diabetic nephropathy associated with type 2 diabetes mellitus ([facility] 11/15/2024 Telephone [facility] [address] [place] [address] Yolie Desir MD December10/30/2024 Telephone [facility] [address] [place] [address] Yolie Desir MD Durable Medical Equipment 10/26/2024 Refill [facility] [address] [place] [address] Yolie Desir MD Epigastric pain 10/24/2024 Orders Only GENERIC EXTERNAL DATA DEPARTMENT Provider, Generic External Data 10/23/2024 Refill [facility] [address] [place] [address] Yolie Desir MD Diabetic nephropathy associated with type 2 diabetes mellitus ([facility]) 10/03/2024 Telephone [facility] [address] [place] [address] Yolie Desir MD No Show 09/28/2024 Orders Only GENERIC EXTERNAL DATA DEPARTMENT Provider, Generic External Data 09/25/2024 Patient Outreach [facility] [address] [place] [address] Yolie Desir MD Pre-visit Planning ([facility] screening completed on 03/21/2024) from Last 3 Months Immunizations Name Administration Dates Next Due Influenza injectable quadriv alent IIV4 with preservative 08/22/2018,09/19/2017 Influenza injectable quadriv alent preservative free 11/04/2023,10/20/2022,02/03/2021,10/26 Influenza, Injectable, MDCK, preservative free 12/10/2015 Moderna Covid-19 Vaccine 12+ 10/21/2021,04/07/20 21,02/25/2021 Moderna Covid-19 Vaccine 6+ Bivalent 02/10/2023 Pneumococcal Conjugate PCV 20 02/10/2023 Pneumococcal Polysaccharide PPSV23 09/19/2017,,2015 Tdap 09/19/2017 Family History Medical History Relation Name Comments Gastric Cancer Brother Coronary artery disease Father Dece ased at age 64 ACS Hypertension Father Seizures Mother htn Mother Breast cancer Sister Relation Name Status Comments Brother Father Mother Sister Social History Tobacco Use Types Packs/Day Years Used Date Smoking Tobacco: Never Smokeless Tobacco: Never Tobacco Cessation:Counseling Given: Not Answered Alcohol Use Standard Drinks/Week Comments Never 0 (1 standard drink = 0.6 oz pur e alcohol) Alcohol Answer Date Recorded Frequency of Alcohol Consumption Not on file 03/29/2024 Average Number of Drinks Not on file 024 Frequency of Binge Drinking Not on file 07/2024 Score 0 03/29/2024 Depression Answer Date Recorded Patient Health Questionnaire-9 Score 8 02/10/2023 Housing Stability Answer Date Recorded What is your housing situation today? I have felicitysean jin 03/21/[address] you li ve. Do you have problems with any of the following? None of the above 03/21/2024 Food Insecurity Answer Date Recorded Within the past 12 months, y ou worried that your food would run out before you got money to buy more: Never True 03/21/2024 Within the past 12 months,th e food you bought just didn't last and you didn't have enough money to get more: Never True 11/2023 Transportation Answer Date Recorded In the past 12 months, has l ack of transportation kept you from medical appts, meetings, work or from getting things needed for daily living? No 03/21/2024 Utilities Answer Date Recorded In the past 12 months, has t he electric, gas, oil or water company threatened to shut off services in your home? No 03/21/2024 Depression Answer Date Recorded Patient Health Questionnaire-2 Score 0 01/27/2024 Comments Unknown Sex and Gender Information Value Date Recorded Sex Assigned at Female 09/20/2022 10:28 AM EDT Legal Sex Female 10:28 AM EDT Gender Identity Female 09/20/2022 10:28 AM EDT Sexual Orientation Choose not to disclose 2021 10:28 AM EDT Last Filed Vital Signs Vital Sign Reading Time Taken Comments Blood Pressure 98/57 08/02/2024 12:24 PM EDT Pulse 103 08/02/2024 12:24 PM EDT Temperature 37 ??C (98.6 ??F) 08/02/2024 12:24 PM EDT Respiratory Rate 24 08/02/2024 12:24 PM EDT Oxygen Saturation 97% 08/02/2024 12:24 PM EDT Inhaled Oxygen Concentration - - Weight 90.8 kg (200 lb 4 oz) 08/02/2024 12:24 PM EDT Height 170.2 cm (5' 7 ) 08/02/2024 12:24 PM EDT Body Mass Index 31.36 08/02/2024 12:24 PM EDT Plan of Treatment Upcoming Encounters Date Type Department Care Team (Late st Contact Info) Description 01/08/2025 2:00 PM EST Office Visit [facility] [address] [place] [address] Yolie Desir MD [address] [place] [address] Health Maintenance Due Date Last Done Comments CT Colonography 1973 Colonoscopy 1973 Colorectal Cancer Screening 1973 FIT DNA/Cologuard 1973 FIT 1973 FOBT 1973 HIV Screening 1973 Sigmoidoscopy 1973 Family Planning (PISQ) 1988 Hepatitis C Screening 1991 Hepatitis B Vaccines (1 of 3 - 19+ 3-dose series) 1992 Zoster Vaccines (1 of 2) 2023 Eye Exam 09/09/2023 09/09/2022 COVID-19 Vaccine ( season) 2024 02/10/2023, 10/21/2021, 04/07/2021, Additional history exists Influenza Vaccine (#1) 2024 , 10/20/2022, 02/03/2021, Additional history exists Diabetes: Hemoglobin A1C 07/25/2024 024, 11/04/2023, 07/05/2023, Additional history exists Cervical Cancer Screening 11/03/2024 HPV/Cotest 11/03/2024 03/15/2023, 03/15/2023 Pap Smear 11/03/2024 03/15/2023, 03/15/2023 Depression Screening 01/26/2025 01/27/2024, 02/11/20 SDOH Screening 03/21/2025 03/21/2024 Alcohol/Substance Use Screening 03/29/2025 03/29/2024 Diabetes: Foot Exam 03/29/2025 03/29/2024, 03/29/2024, 03/29/2024, Additional history exists Mammogram 04/03/2025 04/03/2024 Lipid Panel 06/25/2025 06/25/2024, 10/21, 03/30/2022, Additional history exists Tobacco Screening 08/02/2025 08/02/2024 DTaP/Tdap/Td Vaccines (2 - Td or Tdap) 09/19/2027 09/19/2017 RSV Patients and Patients Aged 60 years or older (1 - 1-dose 75+ series) 2048 Pneumococcal Vaccine: Pediatrics (0 to 5 Years) and At-Risk Patients (6 to 49) Years) Completed 02/10/2023, 09/19/2017, 12/10/2015, Additional history exists HIB Vaccines Aged Out No longer eligi ble based on patient's age to complete this topic HPV Vaccines Aged Out No longer eligi ble based on patient's age to complete this topic Hepatitis A Vaccines Aged Out No long er eligible based on patient's age to complete this topic IPV Vaccines Aged Out No longer eligi ble based on patient's age to complete this topic Meningococcal Vaccine Aged Out No katie lashawn eligible based on patient's age to complete this topic RSV under 20 months Aged Out No longe r eligible based on patient's age to complete this topic Rotavirus Vaccines Aged Out No longer eligible based on patient's age to complete this topic Procedures Procedure Name Priority Date/Time Associated Diagnosis Comments GLUCOSE, WHOLE BLOOD Routine 10/24/2024 3:56 PM EST GLUCOSE, WHOLE BLOOD Routine 09/28/2024 2:01 PM EST LIPID PANEL, STANDARD Routine 06/25/2024 10:51 AM EDT BI MAMMOGRAM SCREENING TOMOSYNTHESIS BILATERAL Routine 04/03/2024 3:27 PM EDT POCT GLYCATED HEMOGLOBIN, TOTAL Routine 01/23/2024 11:15 AM EST Diabetic ulcer of left midfoot associated with type 2 diabetes mellitus, with fat layer exposed (CMS/HCC) HPV GENOTYPES 16,18/45 Routine 11:10 AM EDT HM PAP/HPV Routine 03/15/2023 from Last 3 Months or Most Recently Relevant to Health Maintenance Results * Glucose, Whole Blood (10/24/2024 3:56 PM EST) Only the most recent of2 resultswithin the time period is included. Glucose, Whole Blood 98 60 - 115 mg/dL [facility] Comment:METER #: [id number] Testing performed in the Endocrinology Department [address] , [address], [facility]. 10/24/2024 3:56 PM EST 10/24/2024 4:00 PM EST us Generic External Data Provider LAB BLOOD ORDERAB LES Final Result [facility] [address] [place] [address] [phone] * (ABNORMAL) Lipid Panel, Standard (06/25/2024 10:51 AM EDT) Triglycerides 186(H) <150 mg/dL [facility] Comment:Desirable Triglyceri de: less than 150 mg/dLBorderline High Triglyceride 150-199 mg/dLHigh Triglyceride: 200-499 mg/dLVery High Triglyceride: greater than or equal to 5OO mg/dL Cholesterol 246(H) <200 mg/dL [facility] Comment:Desirable Cholestero l: less than 200 mg/dLBorderline High Cholesterol: 200-239 mg/dLHigh Cholesterol: greater than 239 mg/dL LDL Cholesterol Calculated 163(H) <100 mg/dL [facility] Comment:Desirable LDL: less than 100 mg/dLNear Optimal/Above Optimal LDL: 110- 129 mg/dLBorderline High LDL: 130-159 mg/dLHigh LDL: 160-189 mg/dLVery High LDL: greater than or equal to 190 mg/dL HDL Cholesterol 46 >40 mg/dL [facility] Comment:Desirable HDL: great er than 40 mg/dL Note: This HDL assay may give artificially low results in patients with liver disease. 06/25/2024 10:5 1 AM EDT 06/25/2024 10:51 AM EDT us Generic External Data Provider LAB BLOOD ORDERAB LES Final Result [facility] [address] [place] [address] [phone] * BI Mammogram Screening Tomosynthesis Bilateral (04/03/2024 3:27 PM EDT) Anatomical Region Laterality Modality Breast Bilateral Mammography 04/03/2024 3:27 PM EDT Narrative 05/04/2024 5:45 AM EDT ? [facility] ? [address] ?[place] [address] ? Mammography Report ? Signed ? Patient: Melissa Barnett ?MR#: ?? [id number] ? : 1975 ?Acct:[id number] ? Age/Sex: 48 / F ?ADM Date: 05/14/24 ? Loc: HO.MAMMO ? Attending Dr: Yolie Desir MD ? Ordering Physician: Yolie Desir MD ?Results: 1Ne ?? gative ? Date of Service: 04/03/24 ?Follow Up: 1 Year From Orig ?? inal Mammogram ? Procedure(s): MM tomosynthesis screening BI ?? Accession Number(s): [id number] ? cc: Yolie Desir MD ? EXAMINATION: ?? MM SCREENING DIGITAL BREAST TOMOSYNTHESIS, BILATERAL ? CLINICAL INFORMATION: ? Screening. Asymptomatic. ? COMPARISON: ?? Mammography: This study is compared with prior exams dating back to ?? 2017. ? TECHNIQUE: ?? Digital breast tomosynthesis is performed in both the craniocaudal and ?? mediolateral oblique views along with computer-aided detection (CAD). ?? Synthesized 2D images are generated from the tomosynthesis. ? FINDINGS: ?? There are scattered areas of fibroglandular density (ACR BI-RADS breast ?? composition Category b). ? There are no significant masses, abnormal calcifications, or other ?? abnormalities. ? MM/MM tomosynthesis screening BI ?? IMPRESSION: ?? No mammographic evidence of malignancy. ? ASSESSMENT: ? BI-RADS BI-RADS 1 - Negative ? RECOMMENDATION: ?? Routine annual mammography screening. ? 1 year F/U ? This examination should not preclude the clinical evaluation of a ?? suspicious palpable abnormality. ? This patient's information was entered into a reminder system with a ?? target due date for their next mammogram. ? Dictated By: ?Xochitl Cerrato MD ? Signed By: ?<Electronically signed by Xochitl Cerrato MD in OV> ? 05/04/24 0542 ? DD/ 1527 ? TD/TT: ? Coat Fitter: ? Procedure Note Donmodestoter, Image - 05/04/2024 Samantha [facility] [address] [place], [place] [address] Mammography Report Signed Patient: Melissa BarnettMR#: [id number] : 1975Acct:[id number] Age/Sex: 48 / FADM Date: 04/03/24 Loc: HO.MAMMO Attending Dr: Yolie Desir MD Ordering Physician: Yolie Desiresults: 1Ne gative Date of Service: 04/03/24Follow Up: 1 Year From Orig inal Mammogram Procedure(s): MM tomosynthesis screening BI Accession Number(s): [id number] cc: Yolie Desir MD EXAMINATION: MM SCREENING DIGITAL BREAST TOMOSYNTHESIS, BILATERAL CLINICAL INFORMATION: Screening. Asymptomatic. COMPARISON: Mammography: This study is compared with prior exams dating back to 2017. TECHNIQUE: Digital breast tomosynthesis is performed in both the craniocaudal and mediolateral oblique views along with computer-aided detection (CAD). Synthesized 2D images are generated from the tomosynthesis. FINDINGS: There are scattered areas of fibroglandular density (ACR BI-RADS breast composition Category b). There are no significant masses, abnormal calcifications, or other abnormalities. MM/MM tomosynthesis screening BI IMPRESSION: No mammographic evidence of malignancy. ASSESSMENT: BI-RADS BI-RADS 1 - Negative RECOMMENDATION: Routine annual mammography screening. 1 year F/U This examination should not preclude the clinical evaluation of a suspicious palpable abnormality. This patient's information was entered into a reminder system with a target due date for their next mammogram. Dictated By: Xochitl Cerrato MD Signed By: <Electronically signed by Xochitl Cerrato MD in OV> 05/04/24 0542 DD/ 1527 TD/TT: Coat Fitter: Yolie Desir MD IMG BI PROCEDURES Edited Result - Final * (ABNORMAL) POCT HGB A1C (01/23/2024 11:15 AM EST) Hemoglobin A1C 6.7(A) 4.0 - 6.0 % QC Media Lot # [id number] Lot# Expiration Date Blood 01/23/2024 11:1 5 AM EST Yolie Desir MD POINT OF CARE TEST ENTER /EDIT ORDERABLES Final Result * (ABNORMAL) HPV Genotypes 16,18/45 (03/15/2023 11:10 AM EDT) Pathologist [facility] HPV 16 RNA NOT DETECTED NOT DETECTED [facility] HPV 18/45 RNA DETECTED(A) NOT DETECTED [facility] Comment: Methodology: Nursery [employer] Teacher Mediated Amplification Cervical sources are required for HPV testing. If a vaginal source from a patient who has had a total hysterectomy with removal of cervix was submitted, please contact the testing laboratory for alternative testing options. 03/15/2023 11:1 0 AM EDT 03/16/2023 6:23 AM EDT Yolie Desir MD LAB BLOOD ORDERABLES Fin al Result [facility] [address], [place] [address] [facility] [address] [place] [address] * Hm Pap Smear (03/15/2023) Pathologist [facility] HM Pap smear NIL HPV+ Kandice Fernandez MD HEALTH MAINTENANCE Final Result from Last 3 Months or Most Recently Relevant to Health Maintenance Insurance [facility] C3 Care Teams Powder Coater Relationship Specialty Start Date End Date Yolie Desir MD [address] [place] [phone] PCP - General Family Medicine 10/26/19
--- OUTSIDE RECORDS SUMMARY | 2024-12-20 11:16 | XMS_ITS | Clinical Summary ---
Author Organization [facility] ity Address [address] [place] [address] Care Team Providers Care Business Management Consultant Name Role Phone Yolie Desir MD Primary Care Provider [phone] Allergies Active Allergy Reactions Criticality Noted Date Comments Levofloxacin 08/24/2017 Sulfamethoxazole-Trimethoprim 2016 Medications Medication Sig Dispensed Refills Start Date End Date Status gabapentin (NEURONTIN) 100 mg capsule Take 100 mg by mouth daily. Active sertraline (ZOLOFT) 100 mg tablet Take 100 mg by mouth daily. Active aspirin 81 mg EC tablet Take 81 mg by mouth daily. Active atorvastatin (LIPITOR) 80 mg tablet Take 80 mg by mouth daily. Active blood-glucose meter kit by Does not apply route. Active carvediloL (COREG) 6.25 mg tablet Take 6.25 mg by mouth 2 times daily (with meals). Active clopidogreL (PLAVIX) 75 mg tablet Take 75 mg by mouth daily. Active DIGOXIN ORAL Take by mouth. Active exenatide ER (Bydureon) 2 mg/0.65 mL pen injector injection Inject into the skin. Active ferrous gluconate (FERGON) 324 mg (37.5 mg iron) tablet Take by mouth. Active FLUTICASONE PROPIONATE NASL Administer into affected nostril(s). Active insulin glargine (Lantus Solostar U-100 Insulin) 100 unit/mL (3 mL) injection pen Inject into the skin. Active insulin lispro 100 unit/mL injection Inject into the skin 3 times daily (before meals). Active lisinopriL (PRINIVIL,ZESTRIL) 5 mg tablet Take 5 mg by mouth daily. Active loratadine 10 mg capsule Take by mouth. Active pantoprazole (PROTONIX) 40 mg EC tablet Take 40 mg by mouth daily. Active torsemide (DEMADEX) 20 mg tablet Take 20 mg by mouth daily. 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 09/28/2024 Diabetic ulcer of left midfo ot associated with type 2 diabetes mellitus, with fat layer exposed 09/28/2024 Social History Tobacco Use Types Packs/Day Years Used Date Smoking Tobacco: Never Assessed Sex and Gender Information Value Date Recorded Sex Assigned at Not on file Gender Identity Not on file Sexual Orientation Not on file Job Start Date Occupation Industry Not on file Not on file Not on file Plan of Treatment Upcoming Encounters Date Type Department Care Team ([facility] st Contact Info) Description 12/26/2024 3:00 PM EST Office Visit Orthopedic Surgery - [place] [address] [phone] Dusty Gonzalez, DPM [address] [address] Health Maintenance Due Date Last Done Comments Breast Cancer Screening 1975 Diabetes: Annual GFR (Glomer ular Filtration Rate) 1975 Pneumococcal Vaccine: Pediat rics (0 to 5 Years) and At-Risk Patients (6 to 64 Years) (1 of 2 - PCV) 1979 Diabetes: Annual Foot Exam 1983 Diabetes: Annual Retina Eye Exam 1983 DTaP,Tdap,and Td Vaccines (1 - Tdap) 1992 Hepatitis B Vaccines (1 of 3 - 19+ 3-dose series) 1992 Cervical Cancer Screening: P ap Smear 07/17/2018 07/17/2015 Zoster Vaccines (1 of 2) 2023 COVID-19 Vaccine ( - 2023-2 5 season) 2024 Influenza Vaccine (#1) 2024 Cholesterol Screening (Lipid Panel) 08/24/2024 Colorectal Cancer Screening: Colonoscopy 08/24/2024 Depression Screening 08/24/2024 Social Influencers of Health Screening 08/24/2024 Diabetes: Annual Urine Albumin-Creatinine Ratio (uACR) 09/28/2024 Diabetes: Blood Sugar Contro l Test (HGBA1C) 09/28/2024 Hypertension/CHF/CAD Annual BMP Blood Test 09/28/2024 HIV Screening Completed 08/24/2017 Hepatitis C Screening Completed 08/24/2017 HIB Vaccines Aged Out No longer eligi [...] on patient's age to complete this topic MMR Vaccines Aged Out No longer eligi ble based on patient's age to complete this topic Meningococcal ACWY Vaccine Aged Out N o longer eligible based on patient's age to complete this topic RSV Immunization Patients Un jaison 20 months Aged Out No longer eligible b ased on patient's age to complete this topic Varicella Vaccines Aged Out No longer eligible based on patient's age to complete this topic Procedures Procedure Name Priority Date/Time Associated Diagnosis Comments HEPATITIS C SCREENING Routine 08/24/2017 HIV SCREENING Routine 08/24/2017 PAP SMEAR Routine 07/17/2015 from Last 3 Months or Most Recently Relevant to Health Maintenance Results * HIV Screening (08/24/2017) HIV Screening abstracted Historical Provider MD FREDO Hirsch * Hepatitis C Screening (08/24/2017) Hepatitis C Screening abstracted Historical Provider MD FREDO Hirsch * Pap Smear (07/17/2015) Pap smear no interpretation , abstracted Historical Provider MD FREDO Hirsch from Last 3 Months or Most Recently Relevant to Health Maintenance Care Teams Business Management Consultant Relationship Specialty Start Date End Date Yolie Desir MD [address] [place] [phone] PCP - General 07/25/24
--- OUTSIDE RECORDS SUMMARY | 2024-12-20 11:16 | XMS_ITS | Clinical Summary ---
Author Organization [facility] Address [address] [place] [address] Phone Care Team Providers Care Patrol Mother Name Role Phone Yolie Desir MD Primary Care Provider [phone] Allergies Active Allergy Reactions Criticality Noted Date Comments Levofloxacin 04/13/2021 Sulfamethoxazole-Trimethoprim Other (see comments) 04/22/2021 Trimethoprim 04/13/2021 Medications albuterol HFA (PROVENTIL HFA;VENTOLIN HFA) 108 (90 Base) MCG/ACT inhaler 2 puffs by Other route Active aspirin (ST DONAN) 81 MG EC tablet Take 1 tablet by mouth 1 (one) time each day Active clopidogrel (PLAVIX) 75 MG tablet Take 1 tablet by mouth 1 (one) time each day Active ferrous gluconate (FERGON) 324 (38 Fe) MG tablet Take 1 tablet by mouth 2 (two) times a day 03/15/20 17 Active gabapentin (NEURONTIN) 100 MG capsule Take 2 capsules by mouth 3 (three) times a day Active isosorbide mononitrate (IMDUR) 30 MG 24 hr tablet Take 1 tablet by mouth 1 (one) time each day Active lamoTRIgine (LaMICtal) 100 MG tablet Take 1 tablet by mouth 1 (one) time each day Active pantoprazole (PROTONIX) 40 MG EC tablet Take 1 tablet by mouth 1 (one) time each day Active spironolactone (ALDACTONE) 25 MG tablet Take 1 tablet by mouth 1 (one) time each day Active doxepin (SINEquan) 10 MG capsule Take 10 mg by mouth every night Active ezetimibe (ZETIA) 10 MG tablet Take 10 mg by mouth 1 (one) time each day Active FLUoxetine (PROzac) 20 MG capsule Take 20 mg by mouth 1 (one) time each day Active digoxin (LANOXIN) 125 MCG tablet Take 1 tablet by mouth 3 (three) times a week 08/27/20 Active HumaLOG 100 UNIT/ML injection INJECT UP TO 150 UNITS SUBCUTANEOUSLY VIA PUMP EVERY DAY 09/25/20 Active nitroglycerin (NITROSTAT) 0.4 MG SL tablet DISSOLVE 1 TABLET UNDER THE TONGUE EVERY 5 MINUTES NEEDED FOR CHEST PAIN. CALL 911 IF NO RELIEF 04/21/20 Active lisinopril 10 MG tablet Take 10 mg by mouth 1 (one) time each day 04/21/20 Active Lantus SoloStar 100 UNIT/ML injection INJECT 50 UNITS SUBCUTANEOUSLY ONCE DAILY 05/06/20 Active carvedilol (COREG) 6.25 MG tablet Take 6.25 mg by mouth in the morning and 6.25 mg in the evening. 05/13/20 Active Active Problems Problem Noted Date Diagnosed Date Patient encounter status 02/11/2023 Overview (02/23/2023): Last Assessment & Plan: Discussed with patient re increase fresh fruit [...] and Covid booster today, order IZ titers Anemia 11/16/2022 Hypertension 10/07/2021 Acute nontraumatic kidney injury 04/22/2021 Essential hypertension 04/22/2021 Proteinuria 04/22/2021 Renal disorder due to type 2 diabetes mellitus 0 04/22/2021 Stage 3 chronic kidney disease 12/20/2018 Acute on chronic systolic heart failure 03/18/20 16 Type 2 diabetes mellitus 09/16/2015 Resolved Problems Problem Noted Date Diagnosed Date Resolved Date Allergic rhinitis 11/16/2022 01/05/2023 Blindness, both eyes 11/16/2022 023 Chronic sinusitis 11/16/2022 01/05/2023 Chronic ulcer of foot 11/16/20222022 Epigastric pain 11/16/2022 01/05/2023 Fall 11/16/2022 01/05/2023 Legal, financial, employment and/or socioeconomic history finding 11/16/2022 01/05/2023 Mild intermittent asthma 11/16/2022 Posterior rhinorrhea 11/16/2022 023 Primary coxarthrosis, bilateral 11/16/2022 01/05/2023 Subacute osteomyelitis of left foot 11/16/2022 01/05/2023 Ulcer of midfoot due to diabetes mellitus 11/16/2022 01/05/2023 Generalized ischemic myocardial dysfunction 12/20/2018 01/05/2023 Body mass index 30+ - obesity 08/22/2018 01/05/2023 Congestive heart failure 08/22/2018 Severe recurrent major depre ssion without psychotic features 08/22/2018 01/05/2023 Mass of axilla 06/03/2017 01/05/2023 Constipation 03/26/2016 01/05/2023 History of coronary artery bypass grafting 03/18/2016 01/05/2023 Flexural eczema 09/16/2015 01/05/2023 Generalized anxiety disorder 09/16/2015 01/05/2023 Microalbuminuric diabetic nephropathy 09/16/2015 01/05/2023 Vaginal bleeding 09/16/2015 01/05/2023 Triggering of digit 08/21/2015 01/05/20 23 Pain of knee region 07/23/2015 01/05/20 23 Immunizations Name Administration Dates Next Due Influenza, Quadrivalent, Preservative Free 10/20,02/03/2021,10/26/2019 Influenza, Quadrivalent, With Preservative 08/22,09/19/2017 Moderna SARS-COV-2 10/21/2021,04/07/2021, 021 Pneumococcal Conjugate Pcv 20 02/10/2023 Pneumococcal Polysaccharide 09/19/2017 Tdap 09/19/2017 Family History Medical History Relation Comments Hypertension Mother Heart disease Sibling 1 Kidney disease Sibling 2 Diabetes Sibling 3 Hypertension Sibling 4 Relation Status Comments Father Mother Alive Sibling 1 Sibling 2 Sibling 3 Sibling 4 Social History Tobacco Use Types Packs/Day Years Used Date Smoking Tobacco: Former Cigarettes Q uit: 11/21/2013 Smokeless Tobacco: Never Tobacco Cessation:Counseling Given: Not Answered Comments:Smoking History Info:Every day Alcohol Use Standard Drinks/Week Comments No 0 (1 standard drink = 0.6 oz pur e alcohol) Comments Unknown Sex and Gender Information Value Date Recorded Sex Assigned at Not on file Legal Sex Female 4:46 PM EST Gender Identity Not on file Sexual Orientation Not on file Last Filed Vital Signs Vital Sign Reading Time Taken Comments Blood Pressure 130/70 06/15/2023 3:24 PM EDT Pulse 82 06/15/2023 3:24 PM EDT Temperature - - Respiratory Rate - - Oxygen Saturation 98% 10/07/2021 4:21 PM EST Inhaled Oxygen Concentration - - Weight 92.7 kg (204 lb 6.4 oz) 06/15/2023 3:24 P M EDT Height 170.2 cm (5' 7 ) 04/18/2020 12:00 PM EDT Body Mass Index 32.01 04/18/2020 12:00 PM EDT Plan of Treatment Health Maintenance Due Date Last Done Comments Breast Cancer Screening 1975 Hepatitis B Vaccine (1 of 3 - 19+ 3-dose series) 1992 Diabetes: Ophthalmology Exam 12/22/2020 Diabetes: Pedal Pulse Checked 12/22/2020 Diabetes: Sensory Foot Exam 12/22/2020 Diabetes: Visual Foot Exam 12/22/2020 Colorectal Cancer Screening: Annual FOBT 2022 Colorectal Cancer Screening: Colonoscopy 2022 Colorectal Cancer Screening: Sigmoidoscopy 2022 Diabetes: Hemoglobin A1C 05/13/2023 02/10/2023 Influenza Vaccine (#1) 2024 2, 02/03/2021, 10/26/2019, Additional history exists Pneumococcal Vaccine: Pediat rics (0 to 5 Years) and At-Risk Patients (6 to 64 Years) Completed 02/10/2023, 09/19/2017, 12/10/2015, Additional history exists Insurance [address] [address] [place] Care Teams Patrol Mother Relationship Specialty Start Date End Date Yolie Desir MD [address] [place] [address] PCP - General Internal Medicine 04/22/21
--- OUTSIDE RECORDS SUMMARY | 2024-12-20 11:16 | XMS_ITS | Encounter Summary ---
Author Organization [employer] Address [address] [place] [address] Care Team Providers Care Softball Winder Name Role Phone Yolie Desir MD Primary Care Provider + Reason for Visit * Reason Comments Med Refill Encounter Details Date Type Department Care Team ([facility] st Contact Info) Description 06/15/2024 Refill [facility] ADULT DENTAL [address] [place], [place] [phone] Yolie Desir MD [address] [place] [address] Diabetic nephropathy associated with type 2 diabetes mellitus ([facility]) Social History Tobacco Use Types Packs/Day Years [...] housing situation today? I have felicity jin 03/21/[address] you [...] encounter Miscellaneous Notes * Telephone Encounter - Major Aburto DMD - 06/20/2024 8:13 AM EDT Hi, I do not prescribe anticonvulsant medication, maybe her PCP can help the pt documented in this encounter Plan of Treatment Upcoming Encounters Date Type Department Care Team (Late st Contact Info) Description 01/08/2025 2:00 PM EST Office Visit [facility] MEDICINE [address] [place] [phone] Yolie Desir MD [address] [place] [phone] documented as of this encounter Visit Diagnoses Diagnosis Diabetic nephropathy associated with type 2 diabetes mellitus (CMS/HCC) documented in this encounter Additional Health Concerns Assessment Noted Time PHQ-9 Depression Total Score: 8 02/11/20 23 9:24 AM EDT documented as of this encounter Care Teams Softball Winder Relationship Specialty Start Date End Date Yolie Desir MD [address] [place] [phone] PCP - General Family Medicine 10/26/19 documented as of this encounter
--- OUTSIDE RECORDS SUMMARY | 2024-12-20 11:16 | XMS_ITS | Encounter Summary ---
Author Organization [employer] [facility] Address [address] [place] [address] Care Team Providers Care Web Services Manager Name Role Phone Yolie Desir MD Primary Care Provider + Reason for Visit * Reason Comments Med Refill Encounter Details Date Type Department Care Team ([facility] st Contact Info) Description 11/29/2023 Refill [facility] DIABET[facility]/NUTRITION [address] [place], [place] [phone] Axel Graf MD [address] [place] [phone] Diabetic nephropathy associated with type 2 diabetes mellitus ([facility]/HCC) Social History Tobacco Use Types Packs/Day Years [...] Description 01/08/2025 2:00 PM EST Office Visit [facility] MEDICINE [address] [place] [address] Yolie Desir MD [address] [place] [address] documented as of this encounter Visit Diagnoses Diagnosis Diabetic nephropathy associated with type 2 diabetes mellitus (CMS/HCC) documented in this encounter Additional Health Concerns Assessment Noted Time PHQ-9 Depression Total Score: 8 02/11/20 23 9:24 AM EDT documented as of this encounter Care Teams Web Services Manager Relationship Specialty Start Date End Date Yolie Desir MD [address] [place] [phone] PCP - General Family Medicine 10/26/19 documented as of this encounter
--- OUTSIDE RECORDS SUMMARY | 2024-12-20 11:16 | XMS_ITS | Encounter Summary ---
Author Organization [employer] Address [address] [place] [address] Care Team Providers Care Office Automation Clerk Name Role Phone Yolie Desir MD Primary Care Provider + Reason for Visit * Reason Comments Med Refill Encounter Details Date Type Department Care Team ([facility] st Contact Info) Description 12/29/[address] [facility] MEDICINE [address] [place], [place] [phone] Yolie Desir MD [address] [place], [place] [phone] Diabetic nephropathy associated with type 2 diabetes mellitus (CMS/HCC) Social History Tobacco Use Types Packs/Day [...] Description 01/08/2025 2:00 PM EST Office Visit [facility] MEDICINE [address] [place] [phone] Yolie Desir MD [address] [place] [phone] documented as of this encounter Visit Diagnoses Diagnosis Diabetic nephropathy associated with type 2 diabetes mellitus (CMS/HCC) documented in this encounter Additional Health Concerns Assessment Noted Time PHQ-9 Depression Total Score: 8 02/11/20 23 9:24 AM EDT documented as of this encounter Care Teams Office Automation Clerk Relationship Specialty Start Date End Date Yolie Desir MD [address] [place] [phone] PCP - General Family Medicine 10/26/19 documented as of this encounter
--- OUTSIDE RECORDS SUMMARY | 2024-12-20 11:16 | XMS_ITS | Encounter Summary ---
Author Organization [employer] Address [address] [facility] [address] [place] [address] Care Team Providers Care Boom Boss Name Role Phone Yolie Desir MD Primary Care Provider + Reason for Visit * Reason Comments Med Refill Encounter Details Date Type Department Care Team ([facility] st Contact Info) Description 12/22/2023 Refill [facility] [address] [place], [place] [phone] [facility] [address] [place] [address] Acute on chronic congestive heart failure, unspecified [...] Description 01/08/2025 2:00 PM EST Office Visit [facility] [address] [place] [address] Yolie Desir MD [address] [place] [address] documented as of this encounter Visit Diagnoses Diagnosis Acute on chronic congestive heart failure, unspecified heart failure type (CMS/HCC) documented in this encounter Additional Health Concerns Assessment Noted Time PHQ-9 Depression Total Score: 8 02/11/20 23 9:24 AM EDT documented as of this encounter Care Teams Boom Boss Relationship Specialty Start Date End Date Yolie Desir MD [address] [place] [id number] PCP - General Family Medicine 10/26/19 documented as of this encounter
--- OUTSIDE RECORDS SUMMARY | 2024-12-20 11:16 | XMS_ITS | Encounter Summary ---
Author Organization [employer] Address [address] [place] [address] Care Team Providers Care Estimator Printing Plate Making Name Role Phone Yolie Desir MD Primary Care Provider + Reason for Visit * Reason Onset Date Comments Durable Medical Equipment 10/30/2024 Encounter Details Date Type Department Care Team ([facility] st Contact Info) Description 10/30/2024 Telephone [facility] [address] [place], [place] [phone] Yolie Desir MD [address] [place], [place] [phone] Durable Medical Equipment Social History Tobacco Use Types Packs/Day Years [...] encounter Miscellaneous Notes * Telephone Encounter - Brittany Aviles RN - 12/06/2024 11:54 AM EST Covering inbox. Wrist Rx was faxed to [facility] and is scanned under media. * Telephone Encounter - Yolie Desir MD - 11/26/2024 5:07 PM EST Re writ brace (see encounter on 10/30), please send the rx again to [facility], call patient and give her the info so that they can fu with them. * Telephone Encounter - Zenaida Rizo - 11/20/2024 12:06 PM EST Call was made to [facility] to follow up on right wrist brace. Vidya from [facility] stated that patientwas initially called in January and told that the order for this brace could not be filled seeing that they no longer have a bracing license. She did suggest that if the item was going to be ordered again for this patient that it be sent to [facility] in [place]. Would you like to generate a new order at this time? * Telephone Encounter - Yolie Desir MD - 11/08/2024 2:11 PM EST Re wrist brace, the only dx I have in chart is Right CTS, a rx was sent to DME on 02/01/24 (problem last addressed on 01/23/24) please fu with DME company or issue a new rx * Telephone Encounter - Claudia Galeana - 10/30/2024 10:26 AM EST Tc from pt requesting status on RX for wrist brace , states they were advised PCP sent script. Please contact at [phone] documented in this encounter Plan of Treatment Upcoming Encounters Date Type Department Care Team (Late st Contact Info) Description 01/08/2025 2:00 PM EST Office Visit [facility] [address] [place], [place] [phone] Yolie Desir MD [address] [place] [address] documented as of this encounter Visit Diagnoses Not on filedocumented in this encounter Additional Health Concerns Assessment Noted Time PHQ-9 Depression Total Score: 8 02/11/20 23 9:24 AM EDT documented as of this encounter Care Teams Estimator Printing Plate Making Relationship Specialty Start Date End Date Yolie Desir MD [address] [place] [address] PCP - General Family Medicine 10/26/19 documented as of this encounter
--- OUTSIDE RECORDS SUMMARY | 2024-12-20 11:16 | XMS_ITS | Encounter Summary ---
Author Organization [employer] Address [address] [facility] [address] [place] [address] Care Team Providers Care Apple Picking Supervisor Name Role Phone Yolie Desir MD Primary Care Provider + Reason for Visit * Reason Comments Med Refill Encounter Details Date Type Department Care Team ([facility] st Contact Info) Description 11/14/2023 Refill [facility] [address] [place] [address] [phone] Preet Blackwood MD [address] [place], [place] [phone] Social History Tobacco Use Types Packs/Day Years [...] Description 01/08/2025 2:00 PM EST Office Visit [facility] [address] [place] [address] Yolie Desir MD [address] [place] [address] documented as of this encounter Visit Diagnoses Not on filedocumented in this encounter Additional Health Concerns Assessment Noted Time PHQ-9 Depression Total Score: 8 02/11/20 23 9:24 AM EDT documented as of this encounter Care Teams Apple Picking Supervisor Relationship Specialty Start Date End Date Yolie Desir MD [address] [place] [phone] PCP - General Family Medicine 10/26/19 documented as of this encounter
--- OUTSIDE RECORDS SUMMARY | 2024-12-20 11:16 | XMS_ITS | Encounter Summary ---
Author Organization [employer] [facility] Address [address] [facility] 7t [place] [address] Care Team Providers Care Retail Sales Manager Name Role Phone Yolie Desir MD Primary Care Provider + Encounter Details Date Type Department Care Team (Late st Contact Info) Description 01/25/2023 Abstract [facility] [address] [place] [address] [phone] Yolie Desir MD [address] [place] [address] [phone] Social History Tobacco Use Types Packs/Day Years [...] Description 01/08/2025 2:00 PM EST Office Visit [facility] [address] [place] [address] [phone] Yolie Desir MD [address] [place] [address] [phone] documented as of this encounter Visit Diagnoses Not on filedocumented in this encounter Care Teams Retail Sales Manager Relationship Specialty Start Date End Date Yolie Desir MD [address] [place] [address] PCP - General Family Medicine 10/26/19 documented as of this encounter
--- OUTSIDE RECORDS SUMMARY | 2024-12-20 11:16 | XMS_ITS | Encounter Summary ---
Author Organization [employer] Address [address] [facility] [facility] [address] [place] [address] Care Team Providers Care Outdoor Landscape Architect Name Role Phone Yolie Desir MD Primary Care Provider + Reason for Visit * Reason Comments Med Refill Encounter Details Date Type Department Care Team ([facility] st Contact Info) Description 12/04/2024 Refill [facility] [address] [place], [place] [phone] Yolie Desir MD [address] [place], [place] [phone] Diabetic nephropathy associated with type 2 diabetes mellitus (CMS/[facility]) Social History Tobacco Use Types Packs/Day Years [...] Description 01/08/2025 2:00 PM EST Office Visit [facility] [address] [place] [address] Yolie Desir MD [address] [place] [address] documented as of this encounter Visit Diagnoses Diagnosis Diabetic nephropathy associated with type 2 diabetes mellitus ([facility]) documented in this encounter Additional Health Concerns Assessment Noted Time PHQ-9 Depression Total Score: 8 02/11/20 23 9:24 AM EDT documented as of this encounter Care Teams Outdoor Landscape Architect Relationship Specialty Start Date End Date Yolie Desir MD [address] [place] [phone] PCP - General Family Medicine 10/26/19 documented as of this encounter
--- OUTSIDE RECORDS SUMMARY | 2024-12-20 11:17 | XMS_ITS | Encounter Summary ---
Author Organization [employer] [facility] Address [address] [facility] [address]t [place] [address] Care Team Providers Care Electrical Linesworker Name Role Phone Yolie Desir MD Primary Care Provider + Encounter Details Date Type Department Care Team (Late st Contact Info) Description 01/25/2023 Abstract [facility] [address] [place] [address] [phone] Yolie Desir MD [address] [place] [address] [phone] Social History Tobacco Use Types Packs/Day Years [...] Description 01/08/2025 2:00 PM EST Office Visit [facility] [address] [place] [address] [phone] Yolie Desir MD [address] [place] [address] [phone] documented as of this encounter Visit Diagnoses Not on filedocumented in this encounter Care Teams Electrical Linesworker Relationship Specialty Start Date End Date Yolie Desir MD [address] [place] [address] PCP - General Family Medicine 10/26/19 documented as of this encounter
== END 2024-12-20 10:08 | disposition home or self-care (01) ==
PROVIDERS: PCP Internal Medicine; Visit Provider Dietitian, Registered
DX: E11.21 Type 2 diabetes mellitus with diabetic nephropathy (principal)

== ENCOUNTER 2024-12-20 08:30 | Outpatient (AMB) | payer MEDICAID, SELFPAY ==
--- NOTE | 2024-12-20 08:49 | MHC.AMDMED ---
Intake Intake Visit Reasons: DM Shipyard Helper Required: Yes Shipyard Helper Language: Miller Helper Distillery Name: [facility] [place] Accompanied by: Daughter Allergies sulfamethoxazole [From BACTRIM] Allergy (Severe, Verified 11/01/24 14:15) FACIAL SWELLING trimethoprim [From BACTRIM] Allergy (Severe, Verified 11/01/24 14:15) FACIAL SWELLING levofloxacin [From LEVAQUIN] Allergy (Intermediate, Verified 11/01/24 14:15) REDNESS, SWELLING ITCHINESS AT IV SITE HPI Comprehensive Diabetes Asmnt Most Recent Diabetes Results: Hemoglobin A1c 8.7 % 08/31/19 Microalb/Creat Ratio 415.7 ug/mg cr (<30) H 06/25/24 Cholesterol 246 mg/dL (<200) H 06/25/24 HDL Cholesterol 46 mg/dL (>40) 06/25/24 Triglycerides 186 mg/dL (<150) H 06/25/24 Creatinine 1.29 mg/dL (0.5-1.4) 07/19/24 Blood Urea Nitrogen 27 mg/dL (9-16) H 07/19/24 Sodium 138 mmol/L (135-145) 07/19/24 Potassium 4.2 mmol/L (3.3-5.1) 07/19/24 Chloride 102 mmol/L (96-108) 07/19/24 Carbon Dioxide 27 mmol/L (22-29) 07/19/24 Calcium 10.0 mg/dL (8.4-10.2) 06/12/24 AST 15 U/L (5-31) 10/27/22 ALT 18 U/L (0-31) 10/27/22 Total Protein 8.0 g/dL (6.5-8.0) 10/27/22 Albumin 4.4 g/dL (3.5-5.0) 10/27/22 [facility] Medical History (Updated 07/31/24 @ 10:47 by Ace Granda MD) Asthma DEVYN (obstructive sleep apnea) Osteomyelitis Wound of left foot DM2 (diabetes mellitus, type 2) Hyperlipidemia LDL goal <100 CAD (coronary artery disease) Retinopathy Anxiety Depression Type 2 diabetes mellitus with hyperglycemia, with long-term current use of insulin Proteinuria Type 2 diabetes mellitus with other diabetic kidney complication Essential hypertension Obesity due to excess calories Type 2 diabetes mellitus with diabetic polyneuropathy Surgical History Hx of breast biopsy Hx of section Hx of tubal ligation Hx of coronary artery bypass surgery Family History Maternal Grandmother Diabetes Cervical cancer Brother Diabetes Sister Breast cancer Social History Household Members: Family Household Members Other:: 1 Housing: Apartment Alcohol intake: never Patient Tobacco Use Status: Never used Tobacco Second Hand Smoke Exposure: No service: No Current occupational status: unemployed Female Reproductive History Menstrual Age of Menarche: 11 Assessment & Plan Assessment & Plan (1) Type 2 diabetes mellitus with other diabetic kidney complication: Code(s): E11.29 - Type 2 diabetes mellitus with other diabetic kidney complication Plan: Patient presents for pump training for Omni pod 5 pump and Dexcom G6 CGM training today. The following topics were reviewed today: ??? High Alert: 250 mg/dl ??? Low Alert: 70 mg/dl Insulin delivery settings Average glucose for the past 2 weeks 176 mg/dL Patient above target 46% Patient at target 51% Patient below target 3% Patient is in automatic mode 68% Manual mode 32% Patient stated at today's visit that her son was in a serious accident in [place] and she has not been eating very frequently. She has had some episodes of hypoglycemia, which she states she has not treated. Reviewed the importance of treating hypoglycemia with 15 g of fast acting carbohydrate, also the importance of eating moderate meals to keep blood sugars stable. Patient will be traveling to [place] in approximately 3 weeks. Reviewed with patient off pump backup plan, the importance of taking insulin pens with pen needles backup supplies when travels Patient understands the basic concepts of pump therapy, how to give insulin for meals and snacks, how to troubleshoot for hyper and hypoglycemia. Setting verified by CDCES, no changes made to patient's insulin pump settings at today's visit Basal rate(s) (units/hour) : 12 AM? to 12 AM 1.4 units / hr Bolus setting Insulin Carbohydrate Ratio (s) 12 AM? to 12 PM? 1:4.5 12 PM to 12 AM? 1:3.5 Correction Factor / Sensitivity Factor 12 AM? to 12 PM? 1:25 Active Insulin Time:?4 hours BG target range 110 mg/dL Correction threshold 120 mg/dL Patient Instructions: Patient will contact certified adaptive physical educator with questions or concerns Patient will follow-up with certified adaptive physical educator in 3 months Coding Level of Care Code Est Pt Level 1 (84026) Diagnoses Type 2 diabetes mellitus with other diabetic kidney complication E11.29
== END 2024-12-20 09:05 | disposition home or self-care (01) ==
PROVIDERS: PCP Internal Medicine; Visit Provider Registered Nurse Diabetes Educator
DX: E11.29 Type 2 diabetes mellitus with other diabetic kidney complication (principal)

== ENCOUNTER → 2024-12-20 08:30 | Outpatient (BNVA) | payer MEDICAID, SELFPAY | PROVIDERS: PCP Internal Medicine; Visit Provider Dietitian, Registered | DX: E11.21 Type 2 diabetes mellitus with diabetic nephropathy (principal); E11.29 Type 2 diabetes mellitus with other diabetic kidney complication; Z71.3 Dietary counseling and surveillance | CPT/HCPCS: 97803; 99211 ==

== ENCOUNTER 2025-02-18 13:58 | Outpatient (REF) | payer MEDICAID, SELFPAY ==
--- OUTSIDE RECORDS SUMMARY | 2025-02-18 15:48 | XMS_ITS | Clinical Summary ---
Author Organization [facility] Address [address] [place] [address] Phone Care Team Providers Care Avionics Systems Engineer Name Role Phone Yolie Desir MD Primary Care Provider [phone] Allergies Active Allergy Reactions Criticality Noted Date Comments Levofloxacin 04/13/2021 Sulfamethoxazole-Trimethoprim Other (see comments) 04/22/2021 Trimethoprim 04/13/2021 Medications albuterol HFA (PROVENTIL HFA;VENTOLIN HFA) 108 (90 Base) MCG/ACT inhaler 2 puffs by Other route Active aspirin (ST DONNA) 81 MG EC tablet Take 1 tablet [...] 09/19/2017, 12/10/2015, Additional history exists Insurance [address] [place] [address] [place] Care Teams Avionics Systems Engineer Relationship Specialty Start Date End Date Yolie Desir MD [address] [place] [address] PCP - General Internal Medicine 04/22/21
--- OUTSIDE RECORDS SUMMARY | 2025-02-18 15:48 | XMS_ITS | Encounter Summary ---
Author Organization [employer] Address [address] [facility] [address] 7[address] [place] [address] Care Team Providers Care Water Maintenance Supervisor Name Role Phone Yolie Desir MD Primary Care Provider + Reason for Visit * Reason Onset Date Comments ER Follow-up 02/13/2025 Encounter Details Date Type Department Care Team ([facility] st Contact Info) Description 02/13/2025 Telephone [facility] [address] [place], [place] [phone] Yolie Desir MD [address] [place], [place] [phone] ER Follow-up Social History Tobacco Use Types Packs/Day Years [...] Recorded Patient Health Questionnaire-2 Score 0 01/27/2024 Internet Access Answer Date Recorded Internet Access Q1 Yes 12/25/2024 Internet Access Q2 Not on file 12/25/2024 Comments No Sex and Gender Information Value Date Recorded Sex Assigned at Female 09/20/2022 10:28 AM EDT Legal Sex Female 10:28 AM EDT Gender Identity Female 09/20/2022 10:28 AM EDT Sexual Orientation Choose not to disclose 2021 10:28 AM EDT documented as of this encounter Miscellaneous Notes * Telephone Encounter - Latrice Cohen RN - 02/13/2025 9:26 AM EDT Emergency Room Name and Visit Date: 02/11/25 Discharge Dx: Dehydration (Primary Dx); Mild intermittent asthma without complication Discharge Medications: None Follow up Instructions: With PCP for recheck of urine due to blood noted on UA. No patents examiner needed as this typewriter mechanic speaks Welsh. Call returned to Melissa Cheek to triage below. Reports continues to have dizziness. Per pt having low BP. Reports had a BP of 96/62, rechecked in 1 hour and 104/66. Pt states is drinking plenty of water. Denies any N/V or diarrhea. Perpt had BS of 217mg/dL reports had to change sensor this morning. Pt offered appt for Tuesday. Pt unable to due to conflict. Pt agrees to appt with team provider next week. Pt advised to incrase fluids, rest and to seek ER if sx worsen, n/v or dizziness develop. Pt agrees. Protocol Used: Recent Medical Visit for Illness Follow-up Call (Adult) Protocol-Based Disposition: Home Care Positive Triage Question: * Recent medical visit within 24 hours and symptoms SAME (unchanged) and caller has additional questions triager can answer * All higher-acuity triage questions were negative Care Advice Discussed: * Continue Treatment * Reasons To Call Back - You become worse * Telephone Encounter - David Darrius - 02/13/2025 9:09 AM EDT Patient calling to report ED visit on : Date: 02/11/25 Hospital: [facility] Seen for: Dehydration & Blood in urine Symptomatic Yes Symptom: Low Blood Pressure - Caller Reports Outcome: Schedule a same-day appointment or talk to a nurse or provider today Reason: Caller denied all higher acuity questions Please contact pt at [phone]. (Welsh Speaker) documented in this encounter Plan of Treatment Not on file documented as of this encounter Visit Diagnoses Not on filedocumented in this encounter Additional Health Concerns Assessment Noted Time PHQ-9 Depression Total Score: 8 02/11/20 23 9:24 AM EDT documented as of this encounter Care Teams Water Maintenance Supervisor Relationship Specialty Start Date End Date Yolie Desir MD [address] [place] [phone] PCP - General Family Medicine 10/26/19 documented as of this encounter
--- OUTSIDE RECORDS SUMMARY | 2025-02-18 15:48 | XMS_ITS | Encounter Summary ---
Author Organization [employer] Address [address] [facility] [place] [address] Care Team Providers Care Mesh Cutter Name Role Phone Yolie Desir MD Primary Care Provider + Reason for Visit * Reason Comments Med Refill Encounter Details Date Type Department Care Team ([facility] st Contact Info) Description 12/22/2023 Refill [facility] 230 [place], [place] [phone] [facility] [address] [place] [address] Acute on chronic congestive heart failure, unspecified [...] as of this encounter Plan of Treatment Not on file documented as of this encounter Visit Diagnoses Diagnosis Acute on chronic congestive heart failure, unspecified heart failure type (CMS/HCC) documented in this encounter Additional Health Concerns Assessment Noted Time PHQ-9 Depression Total Score: 8 02/11/20 23 9:24 AM EDT documented as of this encounter Care Teams Mesh Cutter Relationship Specialty Start Date End Date Yolie Desir MD [address] [place] [address] PCP - General Family Medicine 10/26/19 documented as of this encounter
--- OUTSIDE RECORDS SUMMARY | 2025-02-18 15:48 | XMS_ITS | Encounter Summary ---
Author Organization [employer] Address [address] [facility] [address] [place] [address] Care Team Providers Care Food Supervisor Name Role Phone Yolie Desir MD Primary Care Provider + Reason for Visit * Reason Comments sick onsite Encounter Details Date Type Department Care Team ([facility] st Contact Info) Description 02/18/2025 1:30 PM EDT Office Visit [facility] MEDICINE [address] [place], [place] [phone] Xuan Lozada NP [address] [place] [address] Acute cough (Primary Dx); Mild intermittent asthma without complication; Tiredness Social History Tobacco Use Types Packs/Day Years [...] AM EDT documented as of this encounter Last Filed Vital Signs Vital Sign Reading Time Taken Comments Blood Pressure 139/78 02/18/2025 1:20 PM EDT Pulse 88 02/18/2025 1:20 PM EDT Temperature 36.3 ??C (97.3 ??F) 02/18/2025 1:20 PM ED T Respiratory Rate 22 02/18/2025 1:20 PM EDT Oxygen Saturation 98% 02/18/2025 1:20 PM EDT Inhaled Oxygen Concentration - - Weight 92.4 kg (203 lb 12.8 oz) 02/18/2025 1:20 PM EDT Height 170.2 cm (5' 7 ) 02/18/2025 1:20 PM EDT Body Mass Index 31.92 02/18/2025 1:20 PM EDT documented in this encounter Progress Notes * Xuan Lozada NP - 02/18/2025 1:30 PM EDT SUBJECTIVE: Melissa Cheek is a 49 y.o. female presents for ED follow-up. Here with daughter Wendy HPI: Seen at [facility] ED 02/11/25 where she was treated for dehydration with IV fluids and cough with albuterol solution which she responded well to before being discharged home. Today she notes persistent cough and fatigue. States cough is present throughout the day and worse at night. Denies reflux symptoms, chest tightness, or wheezing. Endorses postnasal gtt and sneezing.States she typically gets seasonal allergies and has not reported to oral antihistamines. States she receives monthly injections for this. Albuterol solution helped a little, but she's been out for 4days not. Has appointment with pulm on March 27. Review of Systems Constitutional: Positive for fatigue. Negative for chills and fever. Respiratory: Positive for cough. Negative for chest tightness and shortness of breath. Cardiovascular: Negative for chest pain. Gastrointestinal: Negative for abdominal pain, constipation, diarrhea and nausea. Genitourinary: Negative for dysuria. Musculoskeletal: Negative for arthralgias, back pain, myalgias and neck pain. Skin: Negative. Negative for rash and wound. Neurological: Negative for weakness, light-headedness and headaches. Psychiatric/Behavioral: Negative for behavioral problems, confusion, decreased concentration and suicidal ideas. OBJECTIVE: Visit Vitals BP 139/78 (BP Location: Left arm, Patient Position: Sitting, BP Cuff Size: Large adult) Pulse 88 Temp 97.3 ??F (36.3 ??C) (Oral) Resp 22 Ht 5' 7 (1.702 m) Wt 203 lb 12.8 oz (92.4 kg) SpO2 98% BMI 31.92 kg/m?? OB Status Having periods Smoking Status Never BSA 2.09 m?? Patient Active Problem List Diagnosis Allergic rhinitis Anemia Primary osteoarthritis of both hips Blindness of both eyes Chronic sinusitis Diabetic nephropathy associated with type 2 diabetes mellitus (CMS/HCC) Diabetic ulcer of left midfoot associated with type 2 diabetes mellitus, with fat layer exposed (CMS/HCC) Distressed about housing issues Epigastric pain Essential hypertension Fall Flexural eczema Generalized anxiety disorder Generalized ischemic myocardial dysfunction Knee pain Mass of axilla Microalbuminuric diabetic nephropathy (CMS/HCC) Mild intermittent asthma Obesity (BMI 30-39.9) Posterior rhinorrhea Proteinuria Severe recurrent major depression without psychotic features (CMS/HCC) Stage 3 chronic kidney disease (CMS/HCC) Subacute osteomyelitis of left foot (CMS/HCC) Trigger ring finger of left hand Vaginal bleeding Encounter for preventive health examination Screening mammogram for breast cancer Encounter for cervical Pap smear with pelvic exam Stress incontinence of urine Cervical high risk HPV (human papillomavirus) test positive Numbness and tingling of right arm Diabetic ulcer of left midfoot associated with diabetes mellitus due to underlying condition, limited to breakdown of skin ([facility]) 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, with long-term current use of insulin ([facility]) Carpal tunnel syndrome of right wrist ALPESH I (cervical intraepithelial neoplasia I) Dizziness Diabetes mellitus type 2 with peripheral artery disease ([facility]) Lumbar radiculopathy, acute Class 1 obesity due to excess calories with serious comorbidity and body mass index (BMI) of 31.0 to 31.9 in adult Current Outpatient Medications: Advair Diskus 250-50 MCG/ACT aerosol powder , INHALE 1 PUFF BY MOUTH TWICE DAILY IN THE MORNING ANDIN THE EVENING, RINSE MOUTH AFTER USING., Disp: 60 each, Rfl: 11 albuterol (2.5 MG/3ML) 0.083% nebulizer solution, INHALE 1 AMPULE USING A NEBULIZER EVERY 6 HOURS NEEDED FOR WHEEZING OR SHORTNESS OF BREATH, Disp: 90 mL, Rfl: 2 ammonium lactate (Amlactin) 12 % cream, APPLY TO THE AFFECTED AREA(S) EVERY DAY DIRECTED, Disp: 140 g, Rfl: 2 Aspirin Low Dose 81 MG EC tablet, TAKE 1 TABLET BY MOUTH EVERY EVENING, Disp: , Rfl: carvedilol (Coreg) 6.25 MG tablet, TAKE 1 TABLET BY MOUTH TWICE DAILY IN THE MORNING AND IN THE EVENING, Disp: , Rfl: clopidogrel (Plavix) 75 MG tablet, TAKE 1 TABLET BY MOUTH EVERY MORNING, Disp: , Rfl: Continuous Blood Gluc Insurance Administrator (Dexcom G6 information technology officer) device, USE DIRECTED, Disp: , Rfl: Continuous Blood Gluc Sensor (Dexcom G6 Sensor) misc, USE DIRECTED. CHANGE EVERY 10 DAYS, Disp: , Rfl: Continuous Blood Gluc Transmit (Dexcom G6 transmitter) misc, USE DIRECTED ONCE EVERY 3 MONTHS, Disp: , Rfl: digoxin (Lanoxin) 125 MCG tablet, TAKE 1 TABLET BY MOUTH EVERY MORNING ON TUESDAY, TUESDAY, AND TUESDAY, Disp: , Rfl: doxepin (SINEquan) 10 MG capsule, TAKE 1 TABLET BY MOUTH AT BEDTIME, Disp: 30 capsule, Rfl: 0 EPINEPHrine (Epipen) 0.3 MG/0.3ML injection syringe, INJECT INTRAMUSCULARLY DIRECTED ON PACKAGE AND GO TO EMERGENCY ROOM, Disp: , Rfl: ezetimibe (Zetia) 10 MG tablet, TAKE 1 TABLET BY MOUTH EVERY MORNING, Disp: , Rfl: ferrous gluconate (Fergon) 324 (38 Fe) MG tablet, TAKE 1 TABLET BY MOUTH TWICE DAILY AT NOON AND INTHE EVENING, Disp: 180 tablet, Rfl: 3 FLUoxetine (PROzac) 20 MG capsule, TAKE 1 CAPSULE BY MOUTH EVERY MORNING, Disp: 30 capsule, Rfl: 0 fluticasone (Flonase) 50 MCG/ACT nasal spray, USE 1-2 SPRAYS IN EACH NOSTRIL EVERY DAY NEEDED, Disp: 48 g, Rfl: 5 FreeStyle InsuLinx Test test strip, USE SIX TIMES DAILY TO TEST BLOOD SUGAR, Disp: , Rfl: gabapentin (Neurontin) 100 MG capsule, TAKE 2 CAPSULES BY MOUTH THREE TIMES DAILY IN THE MORNING, EVENING AND BEDTIME, Disp: 180 capsule, Rfl: 0 glucose (Glutose) 40 % gel oral gel, Take 15 g by mouth if needed for low blood sugar., Disp: 60 g,Rfl: 11 Insulin Disposable Pump (Omnipod 5 G6 Intro, Gen 5,) kit, USE DIRECTED, Disp: , Rfl: Insulin Disposable Pump (Omnipod 5 G6 Pods, Gen 5,) misc, USE DIRECTED CHANGE EVERY 72 HOURS, Disp: , Rfl: insulin lispro (HumaLOG KWIKPEN) 100 UNIT/ML injection, Use TID Ac meals according to sliding scale: 150-200= 2u/201-250=4u/251-300=6u/301-350=8u/351-400=10u/401 or higher=12u, Disp: 1 each, Rfl: 2 ipratropium (Atrovent) 0.06 % nasal spray, Administer 2 sprays into each nostril 3 times daily., Disp: 15 mL, Rfl: 1 isosorbide mononitrate ER (Imdur) 30 MG 24 hr tablet, TAKE 1 TABLET BY MOUTH EVERY MORNING, Disp: ,Rfl: lamoTRIgine (LaMICtal) 100 MG tablet, TAKE 1 TABLET BY MOUTH AT BEDTIME, Disp: , Rfl: Lantus SoloStar 100 UNIT/ML pen, INJECT 10 UNITS SUBCUTANEOUSLY AT BEDTIME, Disp: 15 mL, Rfl: 2 lisinopril 10 MG tablet, TAKE 1 AND 1/2 TABLETS BY MOUTH IN THE MORNING @ 730am, Disp: , Rfl: LORazepam (Ativan) 0.5 MG tablet, Take 1 tablet (0.5 mg) by mouth if needed each day for anxiety for up to 2 days., Disp: 2 tablet, Rfl: 0 melatonin 5 MG tablet, TAKE 1 TABLET BY MOUTH AT BEDTIME, Disp: 30 tablet, Rfl: 0 mometasone (Elocon) 0.1 % ointment, APPLY APPROXIMATELY 2 GRAMS TOPICALLY TO AFFECTED AREA(S) DAILYIN THE MORNING, Disp: 45 g, Rfl: 3 ogwhxcbt-feffzfzevl-msdtxjxpv (Neosporin) 5-400-5000 ointment, Apply topically 2 times daily., Disp: 30 g, Rfl: 0 nitroglycerin (Nitrostat) 0.4 MG SL tablet, DISSOLVE 1 TABLET UNDER THE TONGUE EVERY 5 MINUTES NEEDED FOR CHEST PAIN. CALL 911 IF NO RELIEF, Disp: , Rfl: Ozempic, 0.25 or 0.5 MG/DOSE, 2 MG/3ML solution pen-injector, INJECT 0.5 MG SUBCUTANEOUSLY EVERY WEEK, Disp: , Rfl: pantoprazole (ProtoNix) 40 MG EC tablet, TAKE 1 TABLET BY MOUTH EVERY MORNING, Disp: 90 tablet, Rfl: 0 Pentips 32G X 4 MM misc, USE DIRECTED FOUR TIMES DAILY, Disp: , Rfl: rosuvastatin (Crestor) 40 MG tablet, TAKE 1 TABLET BY MOUTH AT BEDTIME, Disp: , Rfl: Spacer/Aero-Holding Chambers (OptiChamber Colleen) misc, 1 each every 4 (four) hours if needed (asthma)., Disp: 1 each, Rfl: 0 spironolactone (Aldactone) 25 MG tablet, TAKE 1 TABLET BY MOUTH EVERY MORNING, Disp: , Rfl: torsemide (Demadex) 20 MG tablet, Take 1 tablet by oral route twice daily, Disp: 60 tablet, Rfl: 1 triamcinolone (Kenalog) 0.1 % cream, APPLY TOPICALLY TWICE DAILY. MIX WITH CERAVE CREAM DIRECTED., Disp: 80 g, Rfl: 3 TRUEplus Lancets 33G misc, TEST BLOOD SUGAR SIX TIMES DAILY, Disp: , Rfl: Ventolin HFA 108 (90 Base) MCG/ACT inhaler, INHALE 2 PUFFS BY MOUTH EVERY 4 HOURS NEEDED FOR WHEEZING OR SHORTNESS OF BREATH, Disp: 18 g, Rfl: 1 Physical Exam Vitals reviewed. Constitutional: General: She is not in acute distress. Appearance: Normal appearance. She is not ill-appearing. HENT: Head: Normocephalic and atraumatic. Right Ear: External ear normal. Left Ear: External ear normal. Nose: Nose normal. Mouth/Throat: Pharynx: Oropharynx is clear. Uvula midline. Postnasal drip present. No oropharyngeal exudate or posterior oropharyngeal erythema. Tonsils: No tonsillar exudate or tonsillar abscesses. Eyes: General: No scleral icterus. Extraocular Movements: Extraocular movements intact. Cardiovascular: Rate and Rhythm: Normal rate and regular rhythm. Pulses: Normal pulses. Heart sounds: Normal heart sounds. Pulmonary: Effort: Pulmonary effort is normal. No respiratory distress. Breath sounds: Normal breath sounds. Musculoskeletal: General: Normal range of motion. Cervical back: Normal range of motion. Skin: General: Skin is warm and dry. Neurological: General: No focal deficit present. Mental Status: She is alert and oriented to person, place, and time. Gait: Gait normal. Psychiatric: Mood and Affect: Mood normal. Behavior: Behavior normal. Current Outpatient Medications Medication Sig Dispense Refill Advair Diskus 250-50 MCG/ACT aerosol powder INHALE 1 PUFF BY MOUTH TWICE DAILY IN THE MORNING AND IN THE EVENING, RINSE MOUTH AFTER USING. 60 each 11 albuterol (2.5 MG/3ML) 0.083% nebulizer solution INHALE 1 AMPULE USING A NEBULIZER EVERY 6 HOURS ASNEEDED FOR WHEEZING OR SHORTNESS OF BREATH 90 mL 2 ammonium lactate (Amlactin) 12 % cream APPLY TO THE AFFECTED AREA(S) EVERY DAY DIRECTED 140 g 2 Aspirin Low Dose 81 MG EC tablet TAKE 1 TABLET BY MOUTH EVERY EVENING carvedilol (Coreg) 6.25 MG tablet TAKE 1 TABLET BY MOUTH TWICE DAILY IN THE MORNING AND IN THE EVENING clopidogrel (Plavix) 75 MG tablet TAKE 1 TABLET BY MOUTH EVERY MORNING Continuous Blood Gluc Insurance Administrator (Dexcom G6 information technology officer) device USE DIRECTED Continuous Blood Gluc Sensor (Dexcom G6 Sensor) misc USE DIRECTED. CHANGE EVERY 10 DAYS Continuous Blood Gluc Transmit (Dexcom G6 transmitter) misc USE DIRECTED ONCE EVERY 3 MONTHS digoxin (Lanoxin) 125 MCG tablet TAKE 1 TABLET BY MOUTH EVERY MORNING ON TUESDAY, TUESDAY, AND TUESDAY doxepin (SINEquan) 10 MG capsule TAKE 1 TABLET BY MOUTH AT BEDTIME 30 capsule 0 EPINEPHrine (Epipen) 0.3 MG/0.3ML injection syringe INJECT INTRAMUSCULARLY DIRECTED ON PACKAGE AND GO TO EMERGENCY ROOM ezetimibe (Zetia) 10 MG tablet TAKE 1 TABLET BY MOUTH EVERY MORNING ferrous gluconate (Fergon) 324 (38 Fe) MG tablet TAKE 1 TABLET BY MOUTH TWICE DAILY AT NOON AND IN THE EVENING 180 tablet 3 FLUoxetine (PROzac) 20 MG capsule TAKE 1 CAPSULE BY MOUTH EVERY MORNING 30 capsule 0 fluticasone (Flonase) 50 MCG/ACT nasal spray USE 1-2 SPRAYS IN EACH NOSTRIL EVERY DAY NEEDED 48 g 5 FreeStyle InsuLinx Test test strip USE SIX TIMES DAILY TO TEST BLOOD SUGAR gabapentin (Neurontin) 100 MG capsule TAKE 2 CAPSULES BY MOUTH THREE TIMES DAILY IN THE MORNING, EVENING AND BEDTIME 180 capsule 0 glucose (Glutose) 40 % gel oral gel Take 15 g by mouth if needed for low blood sugar. 60 g 11 Insulin Disposable Pump (Omnipod 5 G6 Intro, Gen 5,) kit USE DIRECTED Insulin Disposable Pump (Omnipod 5 G6 Pods, Gen 5,) misc USE DIRECTED CHANGE EVERY 72 HOURS insulin lispro (HumaLOG KWIKPEN) 100 UNIT/ML injection Use TID Ac meals according to sliding scale:150-200= 2u/201-250=4u/251-300=6u/301-350=8u/351-400=10u/401 or higher=12u 1 each 2 ipratropium (Atrovent) 0.06 % nasal spray Administer 2 sprays into each nostril 3 times daily. 15 mL 1 isosorbide mononitrate ER (Imdur) 30 MG 24 hr tablet TAKE 1 TABLET BY MOUTH EVERY MORNING lamoTRIgine (LaMICtal) 100 MG tablet TAKE 1 TABLET BY MOUTH AT BEDTIME Lantus SoloStar 100 UNIT/ML pen INJECT 10 UNITS SUBCUTANEOUSLY AT BEDTIME 15 mL 2 lisinopril 10 MG tablet TAKE 1 AND 1/2 TABLETS BY MOUTH IN THE MORNING @ 730am LORazepam (Ativan) 0.5 MG tablet Take 1 tablet (0.5 mg) by mouth if needed each day for anxiety forup to 2 days. 2 tablet 0 melatonin 5 MG tablet TAKE 1 TABLET BY MOUTH AT BEDTIME 30 tablet 0 mometasone (Elocon) 0.1 % ointment APPLY APPROXIMATELY 2 GRAMS TOPICALLY TO AFFECTED AREA(S) DAILY IN THE MORNING 45 g 3 tzytkzgf-vrdezwzwwy-hvhtijktz (Neosporin) 5-400-5000 ointment Apply topically 2 times daily. 30 g 0 nitroglycerin (Nitrostat) 0.4 MG SL tablet DISSOLVE 1 TABLET UNDER THE TONGUE EVERY 5 MINUTES NEEDED FOR CHEST PAIN. CALL 911 IF NO RELIEF Ozempic, 0.25 or 0.5 MG/DOSE, 2 MG/3ML solution pen-injector INJECT 0.5 MG SUBCUTANEOUSLY EVERY WEEK pantoprazole (ProtoNix) 40 MG EC tablet TAKE 1 TABLET BY MOUTH EVERY MORNING 90 tablet 0 Pentips 32G X 4 MM misc USE DIRECTED FOUR TIMES DAILY rosuvastatin (Crestor) 40 MG tablet TAKE 1 TABLET BY MOUTH AT BEDTIME Spacer/Aero-Holding Chambers (OptiChamber Colleen) misc 1 each every 4 (four) hours if needed (asthma). 1 each 0 spironolactone (Aldactone) 25 MG tablet TAKE 1 TABLET BY MOUTH EVERY MORNING torsemide (Demadex) 20 MG tablet Take 1 tablet by oral route twice daily 60 tablet 1 triamcinolone (Kenalog) 0.1 % cream APPLY TOPICALLY TWICE DAILY. MIX WITH CERAVE CREAM DIRECTED.80 g 3 TRUEplus Lancets 33G misc TEST BLOOD SUGAR SIX TIMES DAILY Ventolin HFA 108 (90 Base) MCG/ACT inhaler INHALE 2 PUFFS BY MOUTH EVERY 4 HOURS NEEDED FOR WHEEZING OR SHORTNESS OF BREATH 18 g 1 No current facility-administered medications for this visit. Assessment/Plan Diagnoses and all orders for this visit: Acute cough Comments: -LS clear in bilat bases throughout -suspect seasonal allergies although silent GERD is also a possibility -trial atrovent nasal spray -declined oral antihistamine -advised RTC if no improvement for consideration of PPI for silent GERD -she is encouraged to reach out to rubber and pounder as well Orders: - ipratropium (Atrovent) 0.06 % nasal spray; Administer 2 sprays into each nostril 3 times daily. Mild intermittent asthma without complication - albuterol (2.5 MG/3ML) 0.083% nebulizer solution; INHALE 1 AMPULE USING A NEBULIZER EVERY 6 HOURSAS NEEDED FOR WHEEZING OR SHORTNESS OF BREATH Tiredness Comments: -CBC completed 02/11/25 w/o evidence of anemia -question vitamin D deficiency or thyroid abnormality -sleep hygiene reviewed -will call with results Orders: - Vitamin D, 25-Hydroxy, Total, Immunoassay; Future - TSH W/Reflex to FT4; Future Follow-up as scheduled with PCP or sooner as needed Visit Conducted in: Tajik Translation by: Provided by [facility] staff member SALUD Ziegler , documented in this encounter Plan of Treatment Scheduled Orders Name Type Priority Associated Diagnoses Orde r Schedule Vitamin D, 25-Hydroxy, Total, Immunoassay Lab Routine Tiredness Expected: 02/18/2025 (Approximate), Expires: 02/18/2026 TSH W/Reflex to FT4 Lab Routine Tiredness Expected: 02/18/2025 (Approximate), Expires: 02/18/2026 documented as of this encounter Visit Diagnoses Diagnosis Acute cough- Primary Mild intermittent asthma without complication Tiredness Other malaise and fatigue documented in this encounter Additional Health Concerns Assessment Noted Time PHQ-9 Depression Total Score: 8 02/11/20 23 9:24 AM EDT documented as of this encounter Care Teams Food Supervisor Relationship Specialty Start Date End Date Yolie Desir MD [address] [place] [address] PCP - General Family Medicine 10/26/19 documented as of this encounter
--- OUTSIDE RECORDS SUMMARY | 2025-02-18 15:48 | XMS_ITS | Encounter Summary ---
Author Organization [employer] Address [address] [facility] [address] [place] [address] Care Team Providers Care Trail Maintenance Worker Name Role Phone Yolie Desir MD Primary Care Provider + Reason for Visit * Reason Comments Med Refill Encounter Details Date Type Department Care Team ([facility] st Contact Info) Description 11/14/2023 Refill [facility] [address] [place] [address] [phone] Preet Blackwood MD [address] [place], [place] [phone] Social History Tobacco Use Types Packs/Day Years [...] documented as of this encounter Care Teams Trail Maintenance Worker Relationship Specialty Start Date End Date Yolie Desir MD [address] [place] [phone] PCP - General Family Medicine 10/26/19 documented as of this encounter
--- OUTSIDE RECORDS SUMMARY | 2025-02-18 15:48 | XMS_ITS | Encounter Summary ---
Author Organization [employer] Address [address] [facility] [address] [place] [address] Care Team Providers Care Railroad Crossing Protection Maintainer Name Role Phone Yolie Desir MD Primary Care Provider + Reason for Visit * Reason Comments Med Refill Encounter Details Date Type Department Care Team ([facility] st Contact Info) Description 11/29/2023 Refill [facility] DIABETES/NUTRITION [address] [place], [place] [phone] Axel Graf MD [address] [place] [address] Diabetic nephropathy associated with type 2 diabetes mellitus ([facility]/HCC) Social History Tobacco Use Types Packs/Day [...] mellitus (CMS/[facility]) documented in this encounter Additional Health Concerns Assessment Noted Time PHQ-9 Depression Total Score: 8 02/11/20 23 9:24 AM EDT documented as of this encounter Care Teams Railroad Crossing Protection Maintainer Relationship Specialty Start Date End Date Yolie Desir MD [address] [place] [id number] PCP - General Family Medicine 10/26/19 documented as of this encounter
--- OUTSIDE RECORDS SUMMARY | 2025-02-18 15:48 | XMS_ITS | Encounter Summary ---
Author Organization [employer] Address [address] [facility] [facility] [address] [facility] [address] [place] [address] Care Team Providers Care Rim Turning Finisher Name Role Phone Yolie Desir MD Primary Care Provider + Reason for Visit * Reason Onset Date Comments Med Refill 02/14/2025 Encounter Details Date Type Department Care Team (Late st Contact Info) Description 02/14/2025 Refill [facility] MED & PEDS [address] [place] [address] Yolie Desir MD [address] [place] [address] Social History Tobacco Use Types Packs/Day Years [...] encounter Miscellaneous Notes * Telephone Encounter - Aaliyah Youngblood LPN - 02/14/2025 10:17 AM EDT Last seen 02/11/25. documented in this encounter Plan of Treatment Not on file documented as of this encounter Visit Diagnoses Not on filedocumented in this encounter Additional Health Concerns Assessment Noted Time PHQ-9 Depression Total Score: 8 02/11/20 23 9:24 AM EDT documented as of this encounter Care Teams Rim Turning Finisher Relationship Specialty Start Date End Date Yolie Desir MD [address] [place] [address] PCP - General Family Medicine 10/26/19 documented as of this encounter
--- OUTSIDE RECORDS SUMMARY | 2025-02-18 15:48 | XMS_ITS | Encounter Summary ---
Author Organization [employer] Address [address] [facility] [address] [place] [address] Care Team Providers Care Storage Battery Tester Name Role Phone Yolie Desir MD Primary Care Provider + Encounter Details Date Type Department Care Team ([facility] st Contact Info) Description 12/31/2024 Telephone [facility] MEDICINE [address] [place], [place] [phone] Yolie Desir MD [address] [place], [place] [phone] Social History Tobacco Use Types Packs/Day Years [...] Access Q2 Not on file 12/25/2024 Comments Unknown Sex and Gender Information Value [...] documented as of this encounter Care Teams Storage Battery Tester Relationship Specialty Start Date End Date Yolie Desir MD [address] [place] [phone] PCP - General Family Medicine 10/26/19 documented as of this encounter
--- OUTSIDE RECORDS SUMMARY | 2025-02-18 15:48 | XMS_ITS | Clinical Summary ---
Author Organization [facility] Address [address] [place] [address] Phone Care Team Providers Care Facing Slitter Name Role Phone Yolie Desir MD Primary Care Provider Allergies Active Allergy Reactions Criticality Noted Date Comments Levofloxacin 08/24/2017 Sulfamethoxazole-Trimethoprim 2016 Medications gabapentin (NEURONTIN) 100 mg capsule Take 100 [...] daily. Active DIGOXIN ORAL Take by mouth. Ac tive exenatide ER (Bydureon) 2 mg/0.65 mL pen injector injection Inject into the skin. Active ferrous gluconate (FERGON) 324 mg (37.5 mg iron) tablet Take by mouth. Activ e FLUTICASONE PROPIONATE NASL Administer into affected nostril(s). Active insulin glargine (Lantus Solostar U-100 Insulin) 100 unit/mL (3 mL) injection pen Inject into the skin. Active insulin lispro 100 unit/mL injection Inject into the skin 3 times daily (before meals). Active lisinopriL (PRINIVIL,ZESTR IL) 5 mg tablet Take 5 mg by mouth daily. Active loratadine 10 mg capsule Take by mouth. Acti ve pantoprazole (PROTONIX) 40 mg EC tablet Take 40 mg by mouth daily. Active torsemide (DEMADEX) 20 mg tablet Take 20 mg by mouth daily. Active ammonium lactate (AmLactin) 12 % lotion Apply topically if needed for dry skin. 400 g 5 12/26/19 26 Active povidone-iodine (Betadine) 10 % topical solution Apply topically 1 (one) time each day. 473 mL 5 Active ammonium lactate (AmLactin) 12 % lotion Apply topically if needed for dry skin. 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 09/28/2024 Diabetic ulcer of left midfo ot associated with type 2 diabetes mellitus, with fat layer exposed 09/28/2024 Encounters Date Type Department Care Team Description 02/11/2025 4:00 PM EDT - 02/11/2025 9:49 PM EDT Emergency [facility] Emergency [address] [place] [address] Dehydration (Primary Dx); Mild intermittent asthma without complication Discharge Disposition: Home or Self Care 01/09/2025 3:30 PM EST Office Visit Orthopedic Surgery [place] [phone] [phone] Dusty Gonzalez DPM Xerosis of skin (Primary Dx); Ulcer of toe of left foot, with fat layer exposed (CMS/HCC); Metatarsalgia of both feet; Type II diabetes mellitus with peripheral circulatory disorder (CMS/HCC); Diabetic mononeuropathy simplex (CMS/HCC) 12/26/2024 3:00 PM EST Office Visit Orthopedic [place] [phone] [phone] Dusty Gonzalez DPM Ulcer of toe of right foot, with fat layer exposed (CMS/HCC) (Primary Dx); Dermatophytosis of nail; Pain in toe of right foot; Pain in toe of left foot; Diabetic mononeuropathy simplex (CMS/HCC); Type II diabetes mellitus with peripheral circulatory disorder (CMS/HCC); Metatarsalgia of both feet; Ulcer of toe of left foot, limited to breakdown of skin (CMS/HCC) from Last 3 Months Medical History Medical History Date Comments Diabetes mellitus (CMS/HCC) Social History Tobacco Use Types Packs/Day Years Used Date Smoking Tobacco: Never Smokeless Tobacco: Never Tobacco Cessation:Counseling Given: Not Answered Alcohol Use Standard Drinks/Week Comments Never 0 (1 standard drink = 0.6 oz pur e alcohol) Comments Unknown Sex and Gender Information Value Date Recorded Sex Assigned at Female 02/11/2025 4:13 PM EDT Legal Sex Female 3:50 AM EST Gender Identity Female 02/11/2025 4:13 PM EDT Sexual Orientation Straight 02/11/2025 4: 13 PM EDT Travel History Travel Start Travel End [place] 01/13/2025 02/01/2025 Obstetrics History Last Filed Vital Signs Vital Sign Reading Time Taken Comments Blood Pressure 122/69 02/11/2025 8:30 PM EDT Pulse 83 02/11/2025 8:30 PM EDT Temperature 37 ??C (98.6 ??F) 02/11/2025 8:30 PM EDT Respiratory Rate 16 02/11/2025 8:30 PM EDT Oxygen Saturation 98% 02/11/2025 8:30 PM EDT Inhaled Oxygen Concentration - - Weight 92.1 kg (203 lb) 02/11/2025 3:44 PM EDT Height 170.2 cm (5' 7 ) 02/11/2025 3:44 PM EDT Body Mass Index 31.79 02/11/2025 3:44 PM EDT Plan of Treatment Upcoming Encounters Date Type Department Care Team (Late st Contact Info) Description 03/25/2025 3:30 PM EDT Office Visit Orthopedic Surgery - [place] [address] [phone] Dusty Gonzalez, ERICM [address] [address] Health Maintenance Due Date Last Done Comments Breast Cancer Screening 1973 Diabetes: Annual Foot Exam 1983 Diabetes: Annual Retina Eye Exam 1983 Hepatitis B Vaccines (1 of 3 - 19+ 3-dose series) 1992 Cervical Cancer Screening: Pap Smear 07/17/2018 07/17/2015 Zoster Vaccines (1 of 2) 2023 COVID-19 Vaccine ( - season) 2024 02/10/2023, 10/21/2021, 04/07/2021, Additional history exists Influenza Vaccine (#1) 2024 , 10/20/2022, 02/03/2021, Additional history exists Colorectal Cancer Screening: Colonoscopy 08/24/2024 Depression Screening 08/24/2024 02/10/2023 Social Influencers of Health Screening 08/24/2024 Diabetes: Annual Urine Albumin-Creatinine Ratio (uACR) 09/28/2024 Diabetes: Blood Sugar Control Test (HGBA1C) 07/08/2025 01/08/2025, 01/23/2024 Diabetes: Annual GFR (Glomerular Filtration Rate) 02/11/2026 02/11/2025 Hypertension/CHF/CAD Annual BMP Blood Test 02/11/2026 02/11/2025 DTaP,Tdap,and Td Vaccines (2 - Td or Tdap) 09/19/2027 09/19/2017 Cholesterol Screening (Lipid Panel) 06/25/2029 06/25/2024 HIV Screening Completed 08/24/2017 Hepatitis C Screening Completed 08/24/2017 Pneumococcal Vaccine: 50+ Years Completed 02/10/2023, 09/19/2017, 12/10/2015, Additional history exists Pneumococcal Vaccine: Pediatrics (0 to 5 Years) [...] patient's age to complete this topic Meningococcal B Vacine Aged Out No lo nger eligible based on patient's age to complete this topic RSV Immunization Patients Under 20 months Aged Out No longer eligible based on patient's age to complete this topic Varicella Vaccines Aged Out No longer eligible based on patient's age to complete this topic Procedures Procedure Name Priority Date/Time Associated Diagnosis Comments ECG ANNOTATED 02/13/2025 XR CHEST 2 VIEWS STAT 02/11/2025 8:04 PM EDT URINALYSIS WITH REFLEX MICROSCOPIC STAT 02/11/2025 7:54 PM EDT URINALYSIS WITH REFLEX MICROSCOPIC STAT 02/11/2025 7:54 PM EDT ECG 12-LEAD STAT 02/11/2025 5:[address] HEAD WO CONTRAST STAT 02/11/2025 4 :51 PM EDT LIPASE STAT 02/11/2025 4:37 PM EDT COMPREHENSIVE METABOLIC PANEL STAT 02/11/2025 4:37 PM EDT CBC WITH AUTO DIFFERENTIAL STAT 02/11/2025 4:37 PM EDT MAGNESIUM STAT 02/11/2025 4:37 PM EDT CBC AND DIFFERENTIAL STAT 02/11/2025 4:37 PM EDT HEPATITIS C SCREENING Routine 08/24/2017 HM HIV SCREENING Routine 08/24/2017 HM PAP SMEAR Routine 07/17/2015 from Last 3 Months or Most Recently Relevant to Health Maintenance Results * ECG-Annotated (02/13/2025) us Provider Onbase MD ECG ORDERABLES Final Result * XR Chest 2 Views (02/11/2025 8:04 PM EDT) Anatomical Region Laterality Modality Body Radiographic Ritika ging 02/12/2025 9:09 AM EDT Impressions 02/12/2025 9:10 AM EDT Impression: No active pulmonary process identified. Telerad RASHID ([id number]) -------- FINAL REPORT -------- Dictated By: Tawanna Knott Dictated Date: 02/12/2025 09:09 ET Assigned Physician: Tawanna Knott Reviewed and Electronically Signed By: Tawanna Knott Signed Date: 02/12/2025 09:10 ET Workstation ID: [id number] Transcribed By: Self Edit Transcribed Date: 02/12/2025 09:09 ET Narrative 02/12/2025 9:10 AM EDT History: Cough. Comparison: No comparison imaging at this institution. Findings: PA and lateral views. The cardiac silhouette is normal in size. Sternal sutures and mediastinal clips are consistent with coronary artery surgery. Hilar contours and pulmonary vascularity appear normal. The lungs are clear. The costophrenic angles are sharp. Cholecystectomy clips are noted. Procedure Note Tawanna Knott MD - 02/12/2025 History: Cough. Comparison: No comparison imaging at this institution. Findings: PA and lateral views. The cardiac silhouette is normal in size. Sternalsutures and mediastinal clips are consistent with coronary artery surgery.Hilar contours and pulmonary vascularity appear normal. The lungs areclear. The costophrenic angles are sharp. Cholecystectomy clips are noted. IMPRESSION: Impression: No active pulmonary process identified. Telerad RASHID ([id number]) -------- FINAL REPORT -------- Dictated By: Tawanna Knott Dictated Date: 02/12/2025 09:09 ET Assigned Physician: Tawanna Knott Reviewed and Electronically Signed By: Tawanna Knott Signed Date: 02/12/2025 09:10 ET Workstation ID: [id number] Transcribed By: Self Edit Transcribed Date: 02/12/2025 09:09 ET us Pepe MIKE IMG XR PROCEDURES Final Resu lt * (ABNORMAL) Urinalysis with reflex microscopic (02/11/2025 7:54 PM EDT) Specific [place] Urine 1.013 1.003 - 1.030 LAB URINALYSIS - AUTOMATED METHOD 02/11/2025 8:40 PM [facility] pH, Urine 6.0 5.0 - 8.0 pH LAB URINALYSIS - AUTOMATED METHOD 02/11/2025 8:40 PM [facility] Leukocytes, Urine Negative Negative LAB URINALYSIS - AUTOMATED METHOD 02/11/2025 8:40 PM [facility] Nitrite, Urine Negative Negative LAB URINALYSIS - AUTOMATED METHOD 02/11/2025 8:40 PM [facility] Protein, Urine Negative <=Trace mg/dL LAB URINALYSIS - AUTOMATED METHOD 02/11/2025 8:40 PM [facility] Glucose, Urine Negative Negative mg/dL LAB URINALYSIS - AUTOMATED METHOD 02/11/2025 8:40 PM [facility] Ketones, Urine Negative Negative mg/dL LAB URINALYSIS - AUTOMATED METHOD 02/11/2025 8:40 PM [facility] Urobilinogen , Urine 0.2 0.2 - 1.0 mg/dL LAB URINALYSIS - AUTOMATED METHOD 02/11/2025 8:40 PM [facility] Bilirubin, Urine Negative Negative LAB URINALYSIS - AUTOMATED METHOD 02/11/2025 8:40 PM [facility] Blood, Urine Moderate(A) Negative LAB URINALYSIS - AUTOMATED METHOD 02/11/2025 8:40 PM [facility] RBC, Urine 12.8(H) 0 - 4 /HPF LAB URINALYSIS - AUTOMATED METHOD 02/11/2025 8:40 PM [facility] WBC, Urine 2.1 0 - 4 /HPF LAB URINALYSIS - AUTOMATED METHOD 02/11/2025 8:40 PM EDT [facility] Squamous Epithelial, Urine 17 0 - 60 /LPF LAB URINALYSIS - AUTOMATED METHOD 02/11/2025 8:40 PM EDT [facility] Bacteria, Urine Negative Negative /HPF LAB URINALYSIS - AUTOMATED METHOD 02/11/2025 8:40 PM EDT [facility] Hyaline Casts, Urine 0.4 0 - 3 /LPF LAB URINALYSIS - AUTOMATED METHOD 02/11/2025 8:40 PM EDT [facility] Urine Urine specimen obtained by clean catch procedure / Unknown Non-blood Collection / Unknown 02/11/2025 7:54 PM EDT 02/11/2025 8:05 PM EDT us Pepe MIKE LAB URINE ORDERABLES Final R esult Performing Organization Address [facility] Co de Phone Number [facility] [address] [place] [address], [place] [phone] * ECG 12 lead (02/11/2025 5:07 PM EDT) Ventricular Rate ECG 83 BPM GEMUSE Atrial Rate 83 BPM GEMUSE P-R Interval 154 ms GEMUSE QRS Duration 84 ms GEMUSE Q-T Interval 364 ms GEMUSE QTc 427 ms GEMUSE P Wave Leeper 19 degrees GEMUSE R Leeper 22 degrees GEMUSE T Leeper 128 degrees GEMUSE ECG Interpretation Normal sinus rhythm Nonspecific ST and T wave abnormality Abnormal ECG No previous ECGs available Confirmed by MD Kelsey Christopher ([id number]) on 02/12/2025 2:11:56 AM GEMUSE 02/11/2025 5:07 PM EDT 02/12/2025 2:11 AM EDT Tahir Burns MD ECG ORDERABLES Final Result Performing Organization Address City/[facility]/ZIP Co de Phone Number GEMUSE * CT Head wo Contrast (02/11/2025 4:51 PM EDT) Anatomical Region Laterality Modality Head and Neck Computed Tomogra phy 02/11/2025 4:58 PM EDT Impressions 02/11/2025 5:01 PM EDT Impression: 1. No acute hemorrhage or intracranial mass effect. 2. Hyperdense left globe, for which clinical correlation is recommended. Vitreous hemorrhage is not excluded. Telerad RASHID ([id number]) -------- FINAL REPORT -------- Dictated By: Tawanna Knott Dictated Date: 02/11/2025 16:58 ET Assigned Physician: Tawanna Knott Reviewed and Electronically Signed By: Tawanna Knott Signed Date: 02/11/2025 17:01 ET Workstation ID: [id number] Transcribed By: Self Edit Transcribed Date: 02/11/2025 16:58 ET Narrative 02/11/2025 5:01 PM EDT History: Dizziness. Weakness. Comparison: No comparison imaging at this institution. Technique: Contiguous axial images were obtained at 2.5 mm intervals through the posterior fossa and at 5 mm intervals through the remainder of the brain without intravenous contrast. DLP: 808.85 mGy/cm WineDemonpeBetyah VCT Iterative reconstruction technique Findings: The ventricular system is normal in size and configuration. Mild cortical volitional changes are noted. Cullen-white differentiation is maintained. No abnormal intra- or extra-axial masses or fluid collections are seen. There is no evidence of acute intracranial hemorrhage. The left globe is homogeneously hyperattenuating. Vitreous hemorrhage is not excluded. Mucoperiosteal thickening is seen within the partially imaged paranasal sinuses, consistent with chronic sinusitis. Pneumatization of the left middle turbinate is noted, accompanied by rightward deviation of the nasal septum. The mastoid air cells are clear. The calvarium is intact. Procedure Note Tawanna Knott MD - 02/11/2025 History: Dizziness. Weakness. Comparison: No comparison imaging at this institution. Technique: Contiguous axial images were obtained at 2.5 mm intervalsthrough the posterior fossa and at 5 mm intervals through the remainder ofthe brain without intravenous contrast. DLP: 808.85 mGy/cm WineDemonpeBetyah VCT Iterative reconstruction technique Findings: The ventricular system is normal in size and configuration. Mild corticalvolitional changes are noted. Cullen-white differentiation is maintained. Noabnormal intra- or extra-axial masses or fluid collections are seen. Thereis no evidence of acute intracranial hemorrhage. The left globe is homogeneously hyperattenuating. Vitreous hemorrhage isnot excluded. Mucoperiosteal thickening is seen within the partially imaged paranasalsinuses, consistent with chronic sinusitis. Pneumatization of the leftmiddle turbinate is noted, accompanied by rightward deviation of the nasalseptum. The mastoid air cells are clear. The calvarium is intact. IMPRESSION: Impression: 1. No acute hemorrhage or intracranial mass effect. 2. Hyperdense left globe, for which clinical correlation is recommended.Vitreous hemorrhage is not excluded. Telepaul MIKE ([id number]) -------- FINAL REPORT -------- Dictated By: Tawanna Knott Dictated Date: 02/11/2025 16:58 ET Assigned Physician: Tawanna Knott Reviewed and Electronically Signed By: Tawanna Knott Signed Date: 02/11/2025 17:01 ET Workstation ID: [id number] Transcribed By: Self Edit Transcribed Date: 02/11/2025 16:58 ET us Pepe MIKE IMG CT PROCEDURES Final Resu lt * (ABNORMAL) CBC auto differential (02/11/2025 4:37 PM EDT) WBC 8.8 4.8 - 10.8 K/mcL LAB HEMETOLOGY METHOD 02/11/2025 5:04 PM EDT [facility] RBC 4.10 3.80 - 4.80 M/mcL LAB HEMETOLOGY METHOD 02/11/2025 5:04 PM EDT [facility] Hemoglobin 12.3 11.5 - 16.0 g/dL LAB HEMETOLOGY METHOD 02/11/2025 5:04 PM EDT [facility] Hematocrit 37.1 35.0 - 47.0 % LAB [facility]OLOG[facility] MCV 91.4 79.0 - 98.0 FL LAB HEMETOLOGY METHOD 02/11/2025 5:04 PM [facility] MCH 30.3 27.0 - 32.0 pcg LAB HEMETOLOGY METHOD [facility]25 [facility] MCHC 33.2 32.0 - 37.0 g/dL LAB HEMETOLOGY METHOD 02/11/2025 5:04 PM [facility] RDW 13.2 11.0 - 15.0 % LAB HEMETOLOGY METHOD 02/11/2025 5:04 PM [facility] Platelets 291 130 - 400 K/mcL LAB HEMETOLOGY METHOD 02/11/2025 5:04 PM [facility] MPV 10.6 7.0 - 11.0 FL LAB HEMETOLOGY METHOD 02/11/2025 5:04 PM [facility] NRBC 0.0 <1.0 % LAB HEMETOLOGY METHOD 02/11/2025 5:04 PM [facility] NRBC Absolute 0.00 <0.10 K/mcL LAB HEMETOLOGY METHOD 02/11/2025 5:04 PM [facility] Neutrophils Relative 51.5 % LAB HEMETOLOGY METHOD 02/11/2025 5:04 PM [facility] Lymphocytes Relative 34.9 % LAB HEMETOLOGY METHOD 02/11/2025 5:04 PM [facility] Monocytes Relative 5.6 % LAB HEMETOLOGY METHOD 02/11/2025 5:04 PM [facility] Eosinophils Relative 7.0 % LAB HEMETOLOGY METHOD 02/11/2025 5:04 PM [facility] Basophils Relative 0.5 % LAB HEMETOLOGY METHOD 02/11/2025 5:04 PM EDT [facility] Immature Granulocytes Relative 0.5 % LAB HEMETOLOGY METHOD 02/11/2025 5:04 PM EDT [facility] Neutrophils Absolute 4.52 1.50 - 7.00 K/mcL LAB HEMETOLOGY METHOD 02/11/2025 5:04 PM EDT [facility] Lymphocytes Absolute 3.06 1.00 - 5.00 K/mcL LAB HEMETOLOGY METHOD 02/11/2025 5:04 PM EDT [facility] Monocytes Absolute 0.49 0.20 - 1.00 K/mcL LAB HEMETOLOGY METHOD 02/11/2025 5:04 PM EDT [facility] Eosinophils Absolute 0.61(H) 0.00 - 0.50 K/mcL LAB HEMETOLOGY METHOD 02/11/2025 5:04 PM EDT [facility] Basophils Absolute 0.04 0.00 - 0.20 K/mcL LAB HEMETOLOGY METHOD 02/11/2025 5:04 PM EDT [facility] Immature Granulocytes Absolute 0.04(H) 0.00 - 0.03 K/mcL LAB HEMETOLOGY METHOD 02/11/2025 5:04 PM EDT [facility] Blood Venous blood specimen / Unknown Venipuncture / Unknown 02/11/2025 4:37 PM EDT 02/11/2025 4:51 PM EDT us Tahir B Grant REBOLLEDO LAB BLOOD ORDERABLES Final Resu lt [facility] [address] [place] [address], * Magnesium (02/11/2025 4:37 PM EDT) Magnesium 2.0 1.9 - 2.6 mg/dL LAB CHEMISTRY METHOD 02/11/2025 5:20 PM EDT [facility] Blood Venous blood specimen / Unknown Venipuncture / Unknown 02/11/2025 4:37 PM EDT 02/11/2025 4:51 PM EDT Tahir Burns MD LAB BLOOD ORDERABLES Final Resu lt Performing Organization Address City/[facility]/ZIP Co de Phone Number [facility] [address] [place] [address], [place] [phone] * Lipase (02/11/2025 4:37 PM EDT) Pathologist [facility] Lipase 18 13 - 75 unit/L LAB CHEMISTRY METHOD 02/11/2025 5:20 PM EDT [facility] Blood Venous blood specimen / Unknown Venipuncture / Unknown 02/11/2025 4:37 PM EDT 02/11/2025 4:51 PM EDT Pepe MIKE LAB BLOOD ORDERABLES Final R esult Performing Organization Address [facility] Co de Phone Number [facility] [address] [place] [address], [place] [phone] * (ABNORMAL) Comprehensive Metabolic Panel (CMP) (02/11/2025 4:37 PM EDT) Pathologist [facility] Sodium 137 133 - 145 mmol/L LAB CHEMISTRY METHOD 02/11/2025 5:20 PM EDT [facility] Potassium 3.7 3.5 - 5.5 mmol/L LAB CHEMISTRY METHOD 02/11/2025 5:20 PM EDT [facility] Chloride 104 96 - 110 mmol/L LAB CHEMISTRY METHOD 02/11/2025 5:20 PM EDT [facility] CO2 26 21 - 32 mmol/L LAB CHEMISTRY METHOD 02/11/2025 5:20 PM EDT [facility] Anion Gap 7 3 - 11 LAB CHEMISTRY METHOD 02/11/2025 5:20 PM [facility] Glucose 95 70 - 100 mg/dL LAB CHEMISTRY METHOD 02/11/2025 5:20 PM [facility] BUN 47(H) 5 - 25 mg/dL LAB CHEMISTRY METHOD 02/11/2025 5:20 PM [facility] Creatinine 1.72(H) 0.50 - 1.10 mg/dL LAB CHEMISTRY METHOD 02/11/2025 5:20 PM [facility] eGFR 36(L) >=60 mL/min/1. 73m2 LAB CHEMISTRY METHOD 02/11/2025 5:20 PM [facility] Comment:Calculation based on the??Chronic Kidney Disease Epidemiology Collaboration (CKD-EPI) equation refit??without adjustment for race. BUN/Creatinine Ratio 27.3 LAB CHEMISTRY METHOD 02/11/2025 5:20 PM [facility] Calcium 9.4 8.5 - 10.5 mg/dL LAB CHEMISTRY METHOD 02/11/2025 5:20 PM [facility] AST (SGOT) 22 10 - 42 unit/L LAB CHEMISTRY METHOD 02/11/2025 5:20 PM [facility] ALT (SGPT) 28 10 - 60 unit/L LAB CHEMISTRY METHOD 02/11/2025 5:20 PM [facility] Alkaline Phosphatase 118 42 - 121 unit/L LAB CHEMISTRY METHOD 02/11/2025 5:20 PM [facility] Total Protein 7.4 6.0 - 8.0 g/dL LAB CHEMISTRY METHOD 02/11/2025 5:20 PM [facility] Albumin 3.7 3.2 - 5.0 g/dL LAB CHEMISTRY METHOD 02/11/2025 5:20 PM [facility] Total Bilirubin 0.3 0.0 - 1.4 mg/dL LAB CHEMISTRY METHOD 02/11/2025 5:20 PM EDT [facility] Blood Venous blood specimen / Unknown Venipuncture / Unknown 02/11/2025 4:37 PM EDT 02/11/2025 4:51 PM EDT Pepe MIKE LAB BLOOD ORDERABLES Final R esult [facility]) [facility] [address] [place] [address], [place] [phone] * HIV Screening (08/24/2017) Pathologist [facility] HIV Screening abstracted Historical Provider HEALTH MAINTENANCE Final Result * Hepatitis C Screening (08/24/2017) Pathologist [facility] Hepatitis C Screening abstracted Historical Provider HEALTH MAINTENANCE Final Result * Pap Smear (07/17/2015) Pathologist [facility] Pap smear no interpretation , abstracted Historical Provider HEALTH MAINTENANCE Final Result from Last 3 Months or Most Recently Relevant to Health Maintenance Insurance MEDICAID - [place] Care Teams Facing Slitter Relationship Specialty Start Date End Date Yolie Desir MD [address] [place] [phone] PCP - General 07/25/24
--- OUTSIDE RECORDS SUMMARY | 2025-02-18 15:48 | XMS_ITS | Encounter Summary ---
Author Organization [employer] [facility] Address [address] [place] [address] Care Team Providers Care Architecture Technician Name Role Phone Yolie Desir MD Primary Care Provider + Reason for Visit * Reason Onset Date Comments Prior Authorization 10/28/2022 Encounter Details Date Type Department Care Team ([facility] st Contact Info) Description 10/28/2022 Telephone [facility] MEDICINE [address] [place], [place] [phone] Yolie Desir MD [address] [place], [place] [phone] Prior Authorization Social History Tobacco Use Types [...] on filedocumented in this encounter Care Teams Architecture Technician Relationship Specialty Start Date End Date Yolie Desir MD [address] [place] [address] PCP - General Family Medicine 10/26/19 documented as of this encounter
--- OUTSIDE RECORDS SUMMARY | 2025-02-18 15:48 | XMS_ITS | Encounter Summary ---
Author Organization [employer] Address [address] [facility] [address] 7[address] [place] [address] Care Team Providers Care Computer Clerk Name Role Phone Yolie Desir MD Primary Care Provider + Reason for Visit * Reason Comments Med Refill Encounter Details Date Type Department Care Team ([facility] st Contact Info) Description 06/15/2024 Refill [facility] [address] [place], [place] [phone] Yolie Desir MD [address] [place] [address] Diabetic nephropathy associated with type 2 diabetes mellitus ([facility]) Social History Tobacco Use Types Packs/Day Years [...] nephropathy associated with type 2 diabetes mellitus (CMS/[facility]) documented in this encounter Additional Health Concerns Assessment Noted Time PHQ-9 Depression Total Score: 8 02/11/20 23 9:24 AM EDT documented as of this encounter Care Teams Computer Clerk Relationship Specialty Start Date End Date Yolie Desir MD [address] [place] [address] PCP - General Family Medicine 10/26/19 documented as of this encounter
--- OUTSIDE RECORDS SUMMARY | 2025-02-18 15:48 | XMS_ITS | Encounter Summary ---
Author Organization [employer] Address [address] [facility] [address] [facility] [address] [place] [address] Care Team Providers Care Rivet Catcher Name Role Phone Yolie Desir MD Primary Care Provider + Reason for Visit * Reason Comments Med Refill Encounter Details Date Type Department Care Team ([facility] st Contact Info) Description 12/26/2023 Refill [facility] [address] [place], [place] [phone] [facility] [address] [place] [address] Acute on chronic congestive heart failure, unspecified [...] documented as of this encounter Care Teams Rivet Catcher Relationship Specialty Start Date End Date Yolie Desir MD [address] [place] [address] PCP - General Family Medicine 10/26/19 documented as of this encounter
--- OUTSIDE RECORDS SUMMARY | 2025-02-18 15:48 | XMS_ITS | Encounter Summary ---
Author Organization [employer] Address [address] [facility] [address] 7t [place] [address] Care Team Providers Care Fare Enforcement Officer Name Role Phone Yolie Desir MD Primary Care Provider + Reason for Visit * Reason Comments Med Refill Encounter Details Date Type Department Care Team ([facility] st Contact Info) Description 12/29/2023 Refill [facility] [address] [place], [place] [phone] Yolie Desir MD [address] [place], [place] [phone] Diabetic nephropathy associated with type 2 diabetes [...] nephropathy associated with type 2 diabetes mellitus ([facility]) documented in this encounter Additional Health Concerns Assessment Noted Time PHQ-9 Depression Total Score: 8 02/11/20 23 9:24 AM EDT documented as of this encounter Care Teams Fare Enforcement Officer Relationship Specialty Start Date End Date Yolie Desir MD [address] [place] [address] PCP - General Family Medicine 10/26/19 documented as of this encounter
--- OUTSIDE RECORDS SUMMARY | 2025-02-18 15:48 | XMS_ITS | Clinical Summary ---
Author Organization [employer] Address [address] [facility] [facility] [address] [place] [address] Care Team Providers Care Pile Driving Technician Name Role Phone Yolie Ashby MD Primary Care Provider + Allergies Active [...] DAY NEEDED 48 g 5 023 Active Spacer/Aero-Hol ding Chambers (OptiChamber Colleen) [...] 2 times daily. 30 g 023 Active melatonin 5 MG tablet TAKE [...] Ac meals according to sliding scale: 150-200= 2u/201-250=4u/251 -300=6u/301-350=8 u/351-400=10u/401 or higher=12u 1 each 2 024 Active Ozempic, 0.25 or 0.5 MG/DOSE, 2 MG/3ML solution pen-injector INJECT 0.5 MG SUBCUTANEOUSLY EVERY WEEK 024 Active Insulin Disposable Pump (Omnipod 5 G6 Pods, Gen 5,) misc USE DIRECTED CHANGE EVERY 72 HOURS Active lisinopril 10 MG tablet TAKE 1 [...] EVERY 10 DAYS Active Continuous Blood Gluc Lap Polisher (Dexcom G6 health claims examiner) device USE DIRECTED Active carvedilol (Coreg) 6.25 MG tablet TAKE 1 TABLET BY MOUTH TWICE DAILY IN THE MORNING AND IN THE EVENING Active ferrous gluconate (Fergon) 324 (38 Fe) MG tabletIndicatio ns:Iron deficiency anemia due to chronic blood loss TAKE 1 TABLET BY MOUTH TWICE DAILY AT NOON AND IN THE EVENING 180 tablet 3 Active Lantus SoloStar 100 UNIT/ML penIndications: Diabetic [...] blood sugar. 60 g 11 024 Active pantoprazole (ProtoNix) 40 MG EC tabletIndicatio ns:Epigastric pain TAKE 1 TABLET BY MOUTH EVERY MORNING 90 tablet 024 Active Advair Diskus 250-50 MCG/ACT aerosol powder INHALE 1 PUFF BY MOUTH TWICE DAILY IN THE MORNING AND IN THE EVENING, RINSE MOUTH AFTER USING. 60 each 11 025 Active LORazepam (Ativan) 0.5 MG tablet Take 1 tablet (0.5 mg) by mouth if needed each day for anxiety for up to 2 days. 2 tablet 025 Active gabapentin (Neurontin) 100 MG capsuleIndicati ons:Diabetic nephropathy associated with type 2 diabetes mellitus (CMS/HCC) TAKE 2 CAPSULES BY MOUTH THREE TIMES DAILY IN THE MORNING, EVENING AND BEDTIME 180 capsule 025 Active Ventolin HFA 108 (90 Base) MCG/ACT inhaler INHALE 2 PUFFS BY MOUTH EVERY 4 HOURS NEEDED FOR WHEEZING OR SHORTNESS OF BREATH 18 g 1 025 Active ipratropium (Atrovent) 0.06 % nasal sprayIndication s:Acute cough Administer 2 sprays into each nostril 3 times daily. 15 mL 1 025 2024 Active albuterol (2.5 MG/3ML) 0.083% nebulizer solutionIndicat ions:Mild intermittent asthma without complication INHALE 1 AMPULE USING A NEBULIZER EVERY 6 HOURS NEEDED FOR WHEEZING OR SHORTNESS OF BREATH 90 mL 2 025 Active albuterol (2.5 MG/3ML) 0.083% nebulizer solution INHALE 1 AMPULE USING A NEBULIZER EVERY 6 HOURS NEEDED FOR WHEEZING OR SHORTNESS OF BREATH 90 mL 1 023 2024 Discontinued(R eorder (will not trigger notification to Pharmacy)) gabapentin (Neurontin) 100 MG capsuleIndicati ons:Diabetic nephropathy associated with type 2 diabetes mellitus (CMS/HCC) TAKE 2 CAPSULES BY MOUTH THREE TIMES DAILY IN THE MORNING, EVENING AND BEDTIME 180 capsule 025 2024 Discontinued albuterol 108 (90 Base) MCG/ACT inhaler Inhale 2 puffs every 4 (four) hours if needed for wheezing or shortness of breath. 18 g 1 025 2024 Discontinued albuterol (2.5 MG/3ML) 0.083% nebulizer solution INHALE 1 AMPULE USING A NEBULIZER EVERY 6 HOURS NEEDED FOR WHEEZING OR SHORTNESS OF BREATH 90 mL 1 025 2024 Discontinued(R eorder (will not trigger notification to Pharmacy)) Active Problems Problem Noted Date Diagnosed Date Class 1 obesity due to exces s calories with serious comorbidity and body mass index (BMI) of 31.0 to 31.9 in adult 01/08/2025 Assessment & Plan (01/08/2025 2:22 PM EST): Discussed re weight reduction options including exercise, life style modifications, diet. Recommended to decrease soda and sugary beverage consumption, increase protein intake with meals (at least 1 portion of protein with each meal) to assist with satiety, increase dietary fiber Recommended at least 150 min/week of moderate intensity exercise. Lumbar radiculopathy, acute 08/02/2024 Assessment & Plan (08/02/2024 3:17 PM EDT): Patient is symptomatic now Refer to PT Advised re stretching exercises FU with me in 2m Diabetes mellitus type 2 with peripheral artery disease 03/29/2024 Overview (08/02/2024): LLE arterial duplex on 2018 ([facility]Dr Bey): -Mod Sup Fem [...] of the peroneal artery. Assessment & Plan (01/08/2025 4:27 PM EST): Better controlled, A1c not quite at goal yet. FU with endocrinology next month. Continue Insulin pump (will use Lantus 10 units QHS, which she is out of Humalog) Continue Ozempic 1 mg. FU with podiatry tomorrow, may need special shoes to prevent further ulcerations. FU with ophthalmology every 6 months. FU with me in 3-4 months. Assessment & Plan (08/02/2024 3:07 PM EDT): [...] Omnipod use. Continue to follow up with Staff Psychologist and change of medications. 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 I told pt to call metal worker office to fu on prescription of CGM sensor Continue lantus 50 units + Omnipod insulin pod Pt to continue regular wound care at wound clinic for left DM ulcer continue laser therapy on right eye. She is legally blind in the left eye. order labs and FU with me in 3 months Assessment & Plan (01/23/2024 12:14 PM EST): Significantly improving, fu with [facility] I will order supplies to [...] Mild intermittent asthma 11/16/2022 Assessment & Plan (01/08/2025 4:29 PM EST): Doing well on Advair + Albuterol prn. Assessment & Plan (02/16/2024 2:51 PM EDT): [...] 11/23 Stage 3 chronic kidney disease 12/20/2018 Essential hypertension 08/22/2018 Assessment & Plan (06/29/2024 [...] major depre ssion without psychotic features 08/22/2018 Assessment & Plan (01/08/2025 4:29 PM EST): Seems to be doing well, will continue Fluoxetine + Doxepin QHS. I will give her Lorazepam 0.5 mg for the trip to and back from [place] to visit her son. Mass of axilla 06/03/2017 Flexural eczema 09/16/2015 [...] HTN. F/u with me in 6 months. 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 Move temporarily to sc Lantus + Humalog Assessment & Plan (01/08/2025 2:18 PM EST): >>ASSESSMENT AND PLAN FOR TYPE 2 DIABETES MELLITUS ([facility]) WRITTEN ON 08/02/2024 3:15 PM BY YOLIE ASHBY MD Controlled, last A1c on 01/2024 was at goal. I will do A1c at upcoming regular visit Patient had episode of hypoglycemia today, probably due to miscalculation of insulin dose adjustment. She will fu on Tuesday with staff educator. She received glucose load today and [...] she was feeling fine. Assessment & Plan (03/29/2024 1:28 PM EDT): Likely better controlled. I congratulated her for reaching out to metal worker and compliance w/ medications I gave her information about diabetic diet, she's asking for more 1-1 threading machine tender coaching, so I gave her information about wt reduction programs in the area Continue close fu w/ metal worker insulin pump + Ozempic Pt had intraocular [...] plan B and importance of appt compliance. Trigger ring finger of left hand 08/21/2015 [...] asthma, CHF vs other. Informed about [facility] and visit ED, she request an appointment for tomorrow, made. Acute renal failure syndrome 04/22/2021 03/29/2024 Congestive heart failure 08/22/2018 Assessment & Plan (11/04/2023 12:04 PM EST): Needs to continue torsemide BID Prescription was sent to pharmacy Continue spironolactone, digoxin, and isosorbide. F/u with cardiology Assessment & Plan (03/15/2023 1:41 PM EDT): followed by cardiology will order refill for Plavix and isosorbide for 1 month so she can have her med box MARYLOU Constipation 03/26/2016 03/29/2024 Acute on chronic systolic heart failure 03/18/2016 03/29/2024 S/P CABG x 3 03/18/2016 03/29/2024 Encounters Date Type Department Care Team Description 02/18/2025 1:30 PM EDT Office Visit [facility] [address] [place] [phone] Xuan Lozada NP Acute cough (Primary Dx); Mild intermittent asthma without complication; Tiredness 02/18/2025 Travel 02/14/2025 Refill [facility] [address] [place] [address] Yolie Ashby MD 02/13/2025 Telephone [facility] [address] [place] [address] Yolie Ashby MD ER Follow-up 02/11/2025 1:20 PM EDT Office Visit [facility] [address] [place] [phone] Xuan Lozada NP Dizziness (Primary Dx); Double vision; Cough in adult patient 02/08/2025 Refill [facility] [address] [place] [address] Yolie Ashby MD 02/06/2025 Telephone [facility] [address] [place] [address] Yolie Ashby MD novolog 02/05/2025 Telephone [facility] [address] [place] [address] Yolie Ashby MD Vicenta recall 02/01/2025 Population Health Risk Score Community [facility] (C[facility]) [address] [phone] Provider, Population Health Generic 01/29/2025 Refill [facility] [address] [place] [address] Yolie Ashby MD Diabetic nephropathy associated with type 2 diabetes mellitus (CMS/HCC) 01/08/2025 2:00 PM EST Office Visit [facility] [address] [place] [address] Yolie Ashby MD Diabetes mellitus type 2 with peripheral artery disease (CMS/HCC) (Primary Dx); Severe recurrent major depression without psychotic features (CMS/HCC); Mild intermittent asthma with acute exacerbation; Class 1 obesity due to excess calories with serious comorbidity and body mass index (BMI) of 31.0 to 31.9 in adult; Exercise counseling; Dietary counseling 01/08/2025 Travel 01/04/2025 Telephone [facility] [address] [place] [address] Yolie Ashby MD Chart prep 12/31/2024 Telephone [facility] [address] [place] [address] Yolie Ashby MD 12/31/2024 Refill [facility] [address] [place] [address] Yolie Ashby MD Diabetic nephropathy associated with type 2 diabetes mellitus ([facility]/HCC) 12/25/2024 Patient Outreach [facility] [address] [place] [address] Yolie Ashby MD Pre-visit Planning (SDOH screening negative and tobacco screening negative) 12/04/2024 Refill [facility] [address] [place] [address] Yolie Ashby MD Diabetic nephropathy associated with type 2 diabetes mellitus ([facility]/HCC) from Last 3 Months Immunizations Name Administration [...] Mass Index 31.92 02/18/2025 1:20 PM EDT Plan of Treatment Health Maintenance [...] 2024 , 10/20/2022, 02/03/2021, Additional history exists Cervical Cancer Screening 11/03/2024 HPV/Cotest 11/03/2024 03/15/2023, 03/15/2023 Pap Smear 11/03/2024 03/15/2023, 03/15/2023 Depression Screening 01/26/2025 01/27/2024, 02/11/20 Alcohol/Substance Use Screening 03/29/2025 03/29/2024 Mammogram 04/03/2025 04/03/2024 Diabetes: Hemoglobin A1C 04/07/2025 025, 01/23/2024, 11/04/2023, Additional history exists Lipid Panel 06/25/2025 06/25/2024, 10/21, 03/30/2022, Additional history exists SDOH Screening 12/25/2025 12/25/2024 Diabetes: Foot Exam 01/08/2026 01/08/2025, 01/08/2025, 01/08/2025, Additional history exists Tobacco Screening 02/18/2026 02/18/2025 DTaP/Tdap/Td Vaccines (2 - Td or Tdap) 09/19/2027 09/19/2017 RSV Patients and Patients Aged 60 years or older (1 - 1-dose 75+ series) 2048 Pneumococcal Vaccine: 50+ Years Completed 02/10/2023, 09/19/2017, [...] Procedure Name Priority Date/Time Associated Diagnosis Comments POCT INFLUENZA B (ID NOW RAPID MOLECULAR) Routine 02/11/2025 1:46 PM EDT Cough in adult patient POCT INFLUENZA A (ID NOW RAPID MOLECULAR) Routine 02/11/2025 1:46 PM EDT Cough in adult patient POCT RAPID COVID ANTIGEN Routine 02/11/2025 1:44 PM EDT Cough in adult patient POCT GLYCATED HEMOGLOBIN, TOTAL Routine 01/08/2025 2:16 PM EST Diabetes mellitus type 2 with peripheral artery disease (CMS/HCC) POCT GLUCOSE Routine 01/08/2025 2:14 PM EST Diabetes mellitus type 2 with peripheral artery disease (CMS/HCC) LIPID PANEL, STANDARD Routine 06/25/2024 10:51 AM EDT BI MAMMOGRAM SCREENING TOMOSYNTHESIS BILATERAL Routine 04/03/2024 3:27 PM EDT HPV GENOTYPES 16,18/45 Routine 11:10 AM EDT HM PAP/HPV Routine 03/15/2023 from Last 3 Months or Most Recently Relevant to Health Maintenance Results * Influenza B (ID NOW Rapid Molecular) (02/11/2025 1:46 PM EDT) Influenza B Negative Negative, Indeterminate [facility] Swab 02/11/2025 1:46 PM EDT us Xuan Lozada ACTIVITIES VOLUNTEER POINT OF CARE TEST ENTER/EDIT O RDERABLES Final Result Performing Organization Address [facility] Co de Phone Number [facility] [address] [place] [phone] * Influenza A (ID NOW Rapid Molecular) (02/11/2025 1:46 PM EDT) Influenza A Negative Negative, Indeterminate [facility] Swab 02/11/2025 1:46 PM EDT us Xuan Lozada ACTIVITIES VOLUNTEER POINT OF CARE TEST ENTER/EDIT O RDERABLES Final Result Performing Organization Address [facility]/ZIP Co de Phone Number [facility] [address] [place] [phone] * POCT Rapid COVID Ag (02/11/2025 1:44 PM EDT) [facility] Rapid COVID Ag Negative Swab 02/11/2025 1:44 PM EDT Xuan Lozada NP POINT OF CARE TEST ENTER/EDIT O RDERABLES Final Result * (ABNORMAL) POCT HGB A1C (01/08/2025 2:16 PM EST) [facility] Hemoglobin A1C 7.5(A) 4.0 - 6.0 % QC Media Lot # [id number] Lot# Expiration Date Blood 01/08/2025 2:16 PM EST Yolie Ashby MD POINT OF CARE TEST ENTER /EDIT ORDERABLES Final Result * POCT Glucose (01/08/2025 2:14 PM EST) [facility] Glucose Blood, POC 154 60 - 200 mg/dL QC Media Lot # [id number] Lot# Expiration Date Blood Capillary blood specimen / Unknown 01/08/2025 2:14 PM EST Yolie Ashby MD POINT OF CARE TEST ENTER /EDIT ORDERABLES Final Result * (ABNORMAL) Lipid Panel, Standard (06/25/2024 10:51 AM EDT) [facility] Triglycerides 186(H) <150 mg/dL [facility] Comment:Desirable Triglyceri de: less than 150 mg/dLBorderline High Triglyceride 150-199 mg/dLHigh Triglyceride: 200-499 mg/dLVery High Triglyceride: greater than or equal to 5OO mg/dL Cholesterol 246(H) <200 mg/dL [facility] Comment:Desirable Cholestero l: less than 200 mg/dLBorderline High Cholesterol: 200-239 mg/dLHigh Cholesterol: greater than 239 mg/dL LDL Cholesterol Calculated 163(H) <100 mg/dL [facility] Comment:Desirable LDL: less than 100 mg/dLNear Optimal/Above Optimal LDL: 110- 129 mg/dLBorderline High LDL: 130-159 mg/dLHigh LDL: 160-189 mg/dLVery High LDL: greater than or equal to 190 mg/dL HDL Cholesterol 46 >40 mg/dL [facility] Comment:Desirable HDL: great er than 40 mg/dL Note: This HDL assay may give artificially low results in patients with liver disease. 06/25/2024 10:5 1 AM EDT 06/25/2024 10:51 AM EDT us Generic External Data Provider LAB BLOOD ORDERAB LES Final Result Performing Organization Address City/State/[facility] Co de Phone Number [facility] [address] [place] [phone] [phone] * BI Mammogram Screening Tomosynthesis Bilateral (04/03/2024 3:27 PM EDT) Anatomical Region Laterality Modality Breast Bilateral Mammography 04/03/2024 3:27 PM EDT Narrative 05/04/2024 5:45 AM EDT ? [facility] ? [address] ?[place] [address] ? Mammography Report ? Signed ? Patient: Melissa Barnett ?MR#: ?? [id number] ? : 1975 ?Acct:[id number] ? Age/Sex: 48 / F ?ADM Date: 05/14/24 ? Loc: HO.MAMMO ? Attending Dr: Yolie Ashby MD ? Ordering Physician: Yolie Ashby MD ?Results: 1Ne ?? gative ? Date of Service: 04/03/24 ?Follow Up: 1 Year From Orig ?? inal Mammogram ? Procedure(s): MM tomosynthesis screening BI ?? Accession Number(s): [id number] ? cc: Yolie Ashby MD ? EXAMINATION: ?? MM SCREENING DIGITAL [...] by Xochitl Cerrato MD in OV> ? 06/14/24 0542 ? DD/ 1527 ? TD/TT: ? Pharmacy Intake Coordinator: ? Procedure Note Donotuseinterpreter, Image - 05/04/2024 [facility] [address] [place] [address] Mammography Report Signed Patient: Melissa BarnettMR#: [id number] : 1975Acct:[id number] Age/Sex: 48 / FADM Date: 04/03/24 Loc: HO.MAMMO Attending Dr: Yolie Ashby MD Ordering Physician: Yolie Ashby MDResults: 1Ne gative Date of Service: 04/03/24Follow Up: 1 Year From Orig inal Mammogram Procedure(s): MM tomosynthesis screening BI Accession Number(s): [id number] cc: Yolie Ashby MD EXAMINATION: MM SCREENING DIGITAL BREAST TOMOSYNTHESIS, [...] in OV> 05/04/24 0542 DD/ 1527 TD/TT: Pharmacy Intake Coordinator: Yolie Ashby MD IMG BI PROCEDURES Edited Result - Final * (ABNORMAL) HPV Genotypes 16,18/45 (03/15/2023 11:10 AM EDT) HPV 16 RNA NOT DETECTED NOT DETECTED [facility] [place] [facility] HPV 18/45 RNA DETECTED(A) NOT DETECTED [facility] [place] [facility] Comment: Methodology: Gasoline Catalyst Operator Mediated Amplification Cervical sources are required for HPV testing. If a vaginal source from a patient who has had a total hysterectomy with removal of cervix was submitted, please contact the testing laboratory for alternative testing options. 03/15/2023 11:1 0 AM EDT 03/16/2023 6:23 AM EDT Yolie Ashby MD LAB CYTOLOGY ORDERABLES Final Result [facility] [address], [place] [address] [facility] [place] [facility] [address] [place] [address] * Hm Pap Smear (03/15/2023) HM Pap smear NIL HPV+ Historical Provider HEALTH MAINTENANCE Final Result from Last 3 Months or Most Recently Relevant to Health Maintenance Insurance [facility] C3 Care Teams Pile Driving Technician Relationship Specialty Start Date End Date Yolie Ashby MD [address] [place] [phone] PCP - General Family Medicine 10/26/19
--- OUTSIDE RECORDS SUMMARY | 2025-02-18 15:48 | XMS_ITS | Encounter Summary ---
Author Organization [employer] Address [address] [facility] [address] [address] [place] [address] Care Team Providers Care Development Manager Name Role Phone Yolie Desir MD Primary Care Provider + Encounter Details Date Type Department Care Team (Latest Contact Info) Description 02/18/2025 Travel Social History Tobacco Use Types Packs/Day Years [...] documented as of this encounter Care Teams Development Manager Relationship Specialty Start Date End Date Yolie Desir MD [address] [place] [phone] PCP - General Family Medicine 10/26/19 documented as of this encounter
--- OUTSIDE RECORDS SUMMARY | 2025-02-18 15:48 | XMS_ITS | Encounter Summary ---
Author Organization [employer] Address [address] [facility] [place] [address] Care Team Providers Care Land Leasing Information Clerk Name Role Phone Yolie Desir MD Primary Care Provider + Reason for Visit * Reason Comments Med Refill Encounter Details Date Type Department Care Team ([facility] st Contact Info) Description 01/02/2024 Refill [facility] [address] [place], [place] [phone] [facility] [address] [place] [address] Acute on chronic congestive heart failure, unspecified [...] documented as of this encounter Care Teams Land Leasing Information Clerk Relationship Specialty Start Date End Date Yolie Desir MD [address] [place] [address] PCP - General Family Medicine 10/26/19 documented as of this encounter
--- OUTSIDE RECORDS SUMMARY | 2025-02-18 15:49 | XMS_ITS | Encounter Summary ---
Author Organization [employer] Address [address] [place] [address] Care Team Providers Care Children'S Aide Name Role Phone Yolie Desir MD Primary Care Provider + Encounter Details Date Type Department Care Team (Late st Contact Info) Description 01/25/2023 Abstract [facility] MEDICINE [address] [place], [place] [phone] Yolie Desir MD [address] [place] [address] Social History Tobacco Use Types Packs/Day Years [...] on filedocumented in this encounter Care Teams Children'S Aide Relationship Specialty Start Date End Date Yolie Desir MD [address] [place], [place] [phone] PCP - General Family Medicine 10/26/19 documented as of this encounter
--- OUTSIDE RECORDS SUMMARY | 2025-02-18 15:49 | XMS_ITS | Encounter Summary ---
Author Organization [employer] Address [address] [address] [facility] [address] [facility] [address] [place] [address] Care Team Providers Care Pump Servicer Helper Name Role Phone Yolie Desir MD Primary Care Provider + Encounter Details Date Type Department Care Team (Late st Contact Info) Description 01/25/2023 Abstract [facility] MEDICINE [address] [place], [place] [phone] Yolie Desir MD [address] [place] [address] Social History Tobacco Use Types Packs/Day Years [...] on filedocumented in this encounter Care Teams Pump Servicer Helper Relationship Specialty Start Date End Date Yolie Desir MD [address] [place], [place] [phone] PCP - General Family Medicine 10/26/19 documented as of this encounter
[2025-02-18 16:16] LABS: MANUAL DIFF FLAG NO
[2025-02-18 16:28] LABS: Basophils Percent Auto 0.2 % (0-2); Eosinophils Absolute Auto 0.5 X10*3/uL (0.0-0.4); Eosinophils Percent Auto 6.1 % (0-4); Hematocrit 35.5 % (37.0-47.0); Hemoglobin 11.8 g/dl (12.0-16.0); Imm Gran Abs Auto 0.02 X10*3/uL (0.00-0.03); Imm Gran Pct Auto 0.2 % (0.0-0.4); Lymphocytes Absolute Auto 2.1 X10*3/uL (1.2-4.9); Mean Corpuscular HGB Conc 33.2 g/dl (31.0-35.0); Mean Corpuscular Hemoglobin 30.3 pg (27.0-33.0); Mean Corpuscular Volume 91.3 fL (80.0-98.0); Mean Platelet Volume 11.5 fL (9.4-12.3); Monocytes Absolute Auto 0.7 X10*3/uL (0.1-1.2); Neutrophils Absolute Auto 5.1 x10*3/uL (2.0-8.3); Neutrophils Percent Auto 60.5 % (45-73); Platelet Count 264 X10*3/uL (160-400); Red Blood Count 3.89 X10*6/uL (4.20-5.50); Red Cell Distribution Width 13.3 % (11.0-16.0); White Blood Count 8.4 X10*3/uL (4.8-10.8)
[2025-02-18 16:53] LABS: Creatinine Urine 99.31 mg/dL
[2025-02-18 16:54] LABS: Total Protein Urine Random < 7 mg/dL (<12)
[2025-02-18 17:02] LABS: Anion Gap 11 (12-20); Blood Urea Nitrogen 21 mg/dL (9-16); Calcium 10.8 mg/dL (8.4-10.2); Carbon Dioxide 27 mmol/L (22-29); Chloride 106 mmol/L (96-108); Estimated Glomerular Filt Rate > 60; Parathyroid Hormone Intact 39.6 pg/mL (8.7-77.1); Potassium 4.3 mmol/L (3.3-5.1); Sodium 140 mmol/L (135-145)
[2025-02-18 17:14] LABS: TSH reflex Free T4 2.28 uIU/mL (0.32-4.0); Vitamin D 25-OH Total 36.8 ng/mL (>30)
== END 2025-02-18 13:59 | disposition home or self-care (01) ==
LOC: HO.HHCL 13:58
PROVIDERS: Internal Medicine Nephrology; Visit Provider Nurse Practitioner
DX: E11.22 Type 2 diabetes mellitus with diabetic chronic kidney disease (principal); E11.21 Type 2 diabetes mellitus with diabetic nephropathy; I10 Essential (primary) hypertension; N18.30 Chronic kidney disease, stage 3 unspecified; R53.83 Other fatigue
CPT/HCPCS: 36415; 80051; 82306; 82310; 82565; 82570; 83970; 84156; 84443; 84520; 85025

== ENCOUNTER 2025-02-21 14:10 | Outpatient (AMB) | payer MEDICAID, SELFPAY ==
--- NOTE | 2025-02-21 14:20 | HO.NEPHOV_ITS ---
Vital Signs 02/21/25 14:25 Height 5 ft 7 in Weight 204 lb 8 oz BMI 32.0 BP 100/60 Blood Pressure Location Lt brachial Position Sitting Intake Visit Reasons: 3 mo follow up-Conf Grease Packer Required: Yes Grease Packer Language: Sql Developer Services: Grease Packer Present Grease Packer Name: [id number] Information Interpreted: clinical only Accompanied by: Daughter Allergies sulfamethoxazole [From BACTRIM] Allergy (Severe, Verified 02/21/25 14:25) FACIAL SWELLING trimethoprim [From BACTRIM] Allergy (Severe, Verified 02/21/25 14:25) FACIAL SWELLING levofloxacin [From LEVAQUIN] Allergy (Intermediate, Verified 02/21/25 14:25) REDNESS, SWELLING ITCHINESS AT IV SITE HPI Comments Details: Melissa was seen in the office today in follow-up of her chronic kidney disease on a background of diabetic nephropathy. She has history of vascular disease needing surgery for foot but currently denies any active peripheral arterial disease symptoms. She has history of coronary artery disease needing intervention. She is on LUIS inhibitor which is tolerating well. Her blood sugars are better controlled and her blood pressure is at goal. She denies any chest pain, shortness of breath, proximal nocturnal dyspnea, orthopnea, pedal edema, orthostatic or urinary symptoms. She does not take any nonsteroidal anti-inflammatories and maintain good hydration. She was seen in the hospital last week in [facility] and was found to have ALIN with hyperkalemia and her ACEI and Spironolactone was held by back wedger today. [facility] Medical History (Updated 07/31/24 @ 10:47 by Ace Granda MD) Asthma DEVYN (obstructive sleep apnea) Osteomyelitis Wound of left foot DM2 (diabetes mellitus, type 2) Hyperlipidemia LDL goal <100 CAD (coronary artery disease) Retinopathy Anxiety Depression Type 2 diabetes mellitus with hyperglycemia, with long-term current use of insulin Proteinuria Type 2 diabetes mellitus with other diabetic kidney complication Essential hypertension Obesity due to excess calories Type 2 diabetes mellitus with diabetic polyneuropathy Surgical History Hx of breast biopsy Hx of section Hx of tubal ligation Hx of coronary artery bypass surgery Family History Maternal Grandmother Diabetes Cervical cancer Brother Diabetes Sister Breast cancer Social History Household Members: Family Household Members Other:: 1 Housing: Apartment Alcohol intake: never Patient Tobacco Use Status: Never used Tobacco Second Hand Smoke Exposure: No service: No Current occupational status: unemployed Female Reproductive History Menstrual Age of Menarche: 11 Review of Systems Const All systems reviewed & are unremarkable except as noted in HPI and below Physical Exam Vital Signs: Last Vital Signs BP 100/60 02/21/25 14:25 BMI result Body Mass Index 32.0 Const General: comfortable and no acute distress Orientation/consciousness: patient oriented x3 HEENT Head: Yes normocephalic Mouth: Normal oral and palatal mucosa present Eyes EOM: EOMs intact bilaterally Neck Neck: Yes supple Resp Auscultation: clear to auscultation bilaterally Cardio Jugular venous distension: no JVD Rate: regular rate GI Palpation (GI): Soft to palpation Auscultation: normal bowel sounds Skin General skin exam: no rashes or lesions noted Neuro General: patient oriented x3 and moves all extremities Extrem General: Yes no pedal edema Results Reviewed Nephrology Results: Hgb 11.8 g/dl (12.0-16.0) L 02/18/25 WBC 8.4 X10*3/uL (4.8-10.8) 02/18/25 Plt Count 264 X10*3/uL (160-400) 02/18/25 Sodium 140 mmol/L (135-145) 02/18/25 Potassium 4.3 mmol/L (3.3-5.1) 02/18/25 Chloride 106 mmol/L (96-108) 02/18/25 Carbon Dioxide 27 mmol/L (22-29) 02/18/25 BUN 21 mg/dL (9-16) H 02/18/25 Creatinine 0.93 mg/dL (0.5-1.4) 02/18/25 Calcium 10.8 mg/dL (8.4-10.2) H 02/18/25 PTH Intact 39.6 pg/mL (8.7-77.1) 02/18/25 Urine Creatinine 99.31 mg/dL 02/18/25 Protein/Creatinin Ratio TNP 02/18/25 Assessment & Plan Assessment & Plan (1) Hypertension: Code(s): I10 - Essential (primary) hypertension Category: Medical Qualifiers: Hypertension type: primary hypertension Qualified Code(s): I10 - Essential (primary) hypertension (2) Diabetic nephropathy: Code(s): E11.21 - Type 2 diabetes mellitus with diabetic nephropathy Category: Medical Qualifiers: Diabetes mellitus type: type 2 Qualified Code(s): E11.21 - Type 2 diabetes mellitus with diabetic nephropathy (3) CKD stage 3 secondary to diabetes: Code(s): E11.22 - Type 2 diabetes mellitus with diabetic chronic kidney disease; N18.30 - Chronic kidney disease, stage 3 unspecified Category: Medical Plan 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 She has proteinuria. Her blood sugar control is fair. Her blood pressure is low normal. Her ACEI and Sironolactone has been on hold . ( due to ALIN ) She would benefit from a bit more weight loss. Her volume status is optimal. She has no peripheral arterial symptoms. I shall restart low dose ACEI and Spironolactone at next visit based on data. Answered all questions and follow-up was given Orders: Orders Electrolytes 3 Weeks E11.21 - Type 2 diabetes mellitus with diabetic nephropathy, E11.22 - Type 2 diabetes mellitus with diabetic chronic kidney disease, I10 - Essential (primary) hypertension, N18.30 - Chronic kidney disease, stage 3 unspecified Creatinine 3 Weeks E11.21 - Type 2 diabetes mellitus with diabetic nephropathy, E11.22 - Type 2 diabetes mellitus with diabetic chronic kidney disease, I10 - Essential (primary) hypertension, N18.30 - Chronic kidney disease, stage 3 unspecified Blood Urea Nitrogen 3 Weeks E11.21 - Type 2 diabetes mellitus with diabetic nephropathy, E11.22 - Type 2 diabetes mellitus with diabetic chronic kidney di sease, I10 - Essential (primary) hypertension, N18.30 - Chronic kidney disease, stage 3 unspecified Coding Level of Care Code Est Pt Level 4 (88658) Diagnoses Primary hypertension I10 Hypertension type: primary hypertension Diabetic nephropathy associated with type 2 diabetes mellitus E11.21 Diabetes mellitus type: type 2 CKD stage 3 secondary to diabetes E11.22; N18.30
[2025-02-21 14:25] VITALS: BP 100/60; BMI 32.0
--- OUTSIDE RECORDS SUMMARY | 2025-02-21 15:37 | XMS_ITS | Encounter Summary ---
Author Organization [employer] Address [address] [place] [address] Care Team Providers Care Living Skills Advisor Name Role Phone Yolie Desir MD Primary Care Provider + Reason for Visit * Reason Comments Med Refill Encounter Details Date Type Department Care Team ([facility] st Contact Info) Description 12/22/2023 Refill [facility] MEDICINE 230 [place], [place] [phone] [facility] 230 [place] [address] Acute on chronic congestive heart failure, unspecified [...] documented as of this encounter Care Teams Living Skills Advisor Relationship Specialty Start Date End Date Yolie Desir MD [address] [place] [address] PCP - General Family Medicine 10/26/19 documented as of this encounter
--- OUTSIDE RECORDS SUMMARY | 2025-02-21 15:37 | XMS_ITS | Encounter Summary ---
Author Organization [employer] Address [address] [facility] [address] [address] [place] [address] Care Team Providers Care Dive Superintendent Name Role Phone Yolie Desir MD Primary Care Provider + Reason for Visit * Reason Comments Med Refill Encounter Details Date Type Department Care Team ([facility] st Contact Info) Description 01/02/2024 Refill [facility] MEDICINE 230 [place], [place] [phone] [facility] 230 [place] [address] Acute on chronic congestive heart failure, unspecified [...] documented as of this encounter Care Teams Dive Superintendent Relationship Specialty Start Date End Date Yolie Desir MD 230 [place] [address] PCP - General Family Medicine 10/26/19 documented as of this encounter
--- OUTSIDE RECORDS SUMMARY | 2025-02-21 15:37 | XMS_ITS | Encounter Summary ---
Author Organization [employer] Address [address] [facility] [address] [place] [address] Care Team Providers Care Fur Cutter Name Role Phone Yolie Desir MD Primary Care Provider + Reason for Visit * Reason Comments Med Refill Encounter Details Date Type Department Care Team ([facility] st Contact Info) Description 12/29/2023 Refill [facility] MEDICINE 230 [place], [place] [phone] Yolie Desir MD [address] [place], [place] [phone] Diabetic nephropathy associated with type 2 diabetes [...] nephropathy associated with type 2 diabetes mellitus (CMS/[facility]) documented in this encounter Additional Health Concerns Assessment Noted Time PHQ-9 Depression Total Score: 8 02/11/20 23 9:24 AM EDT documented as of this encounter Care Teams Fur Cutter Relationship Specialty Start Date End Date Yolie Desir MD [address] [place] [address] PCP - General Family Medicine 10/26/19 documented as of this encounter
--- OUTSIDE RECORDS SUMMARY | 2025-02-21 15:37 | XMS_ITS | Encounter Summary ---
Author Organization [employer] Address [address] [place] [address] Care Team Providers Care Production Superintendent Hydro Name Role Phone Yolie Desir MD Primary Care Provider + Reason for Visit * Reason Comments Med Refill Encounter Details Date Type Department Care Team ([facility] st Contact Info) Description 06/15/2024 Refill [facility] 230 [place], [place] [phone] Yolie Desir MD 230 [place] [address] Diabetic nephropathy associated with type 2 diabetes mellitus ([facility]) Social History Tobacco Use Types [...] nephropathy associated with type 2 diabetes mellitus (CMS/[facility]) documented in this encounter Additional Health Concerns Assessment Noted Time PHQ-9 Depression Total Score: 8 02/11/20 23 9:24 AM EDT documented as of this encounter Care Teams Production Superintendent Hydro Relationship Specialty Start Date End Date Yolie Desir MD 230 [place] [address] PCP - General Family Medicine 10/26/19 documented as of this encounter
--- OUTSIDE RECORDS SUMMARY | 2025-02-21 15:37 | XMS_ITS | Encounter Summary ---
Author Organization [employer] Address [address] [place] [address] Care Team Providers Care Summer Intern Name Role Phone Yolie Desir MD Primary Care Provider + Reason for Visit * Reason Comments Med Refill Encounter Details Date Type Department Care Team ([facility] st Contact Info) Description 12/26/2023 Refill [facility] MEDICINE 230 [place], [place] [phone] [facility] 230 [place] [address] Acute on chronic congestive heart failure, unspecified [...] documented as of this encounter Care Teams Summer Intern Relationship Specialty Start Date End Date Yolie Desir MD [address] [place] [address] PCP - General Family Medicine 10/26/19 documented as of this encounter
--- OUTSIDE RECORDS SUMMARY | 2025-02-21 15:38 | XMS_ITS | Encounter Summary ---
Author Organization [employer] Address [address] [facility] [address] [place] [address] Care Team Providers Care Wax Specialist Name Role Phone Yolie Desir MD Primary Care Provider + Reason for Visit * Reason Comments sick onsite Encounter Details Date Type Department Care Team ([facility] st Contact Info) Description 02/18/2025 1:30 PM EDT Office Visit [facility] MEDICINE 230 [place], [place] [phone] Xuan Lozada NP [address] [place] [address] Acute cough (Primary Dx); Mild intermittent asthma [...] Here with daughter Wendy HPI: Seen at [facility] ED 02/11/25 where she was treated for [...] underlying condition, limited to breakdown of skin ([facility]) 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, with long-term current use of insulin ([facility]) Carpal tunnel syndrome of right wrist ALPESH I (cervical intraepithelial neoplasia I) Dizziness Diabetes mellitus type 2 with peripheral artery disease ([facility]) Lumbar radiculopathy, acute Class 1 obesity due [...] MORNING, Disp: , Rfl: Continuous Blood Gluc Supervisor Diagnostic (Dexcom G6 oil well service operator helper) device, USE DIRECTED, Disp: , Rfl: Continuous [...] THE MORNING, Disp: 45 g, Rfl: 3 pzinruoh-yfwhmnalbt-iegwlhuia (Neosporin) 5-400-5000 ointment, Apply topically 2 times [...] BY MOUTH EVERY MORNING Continuous Blood Gluc Supervisor Diagnostic (Dexcom G6 oil well service operator helper) device USE DIRECTED Continuous Blood Gluc Sensor [...] DAILY IN THE MORNING 45 g 3 kcuobvvl-gcvhtjvdrv-czurmqwaz (Neosporin) 5-400-5000 ointment Apply topically 2 times [...] -she is encouraged to reach out to real estate job titles as well Orders: - ipratropium (Atrovent) 0.06 [...] or sooner as needed Visit Conducted in: Wallisian Translation by: Provided by [facility] staff member SALUD Ziegler , documented in this encounter Plan of Treatment Scheduled Orders Name Type Priority Associated Diagnoses Orde r Schedule Vitamin D, 25-Hydroxy, Total, Immunoassay Lab Routine Tiredness Expected: 02/18/2025 (Approximate), Expires: 02/18/2026 documented as of this encounter Procedures Procedure Name Priority Date/Time Associated Diagnosis Comments TSH W/REFLEX TO FT4 Routine 02/18/2025 2 :03 PM EDT Tiredness documented in this encounter Results * TSH W/Reflex to FT4 (02/18/2025 2:03 PM EDT) TSH reflex Free T4 2.28 0.32 - 4.0 uIU/mL [facility] Blood Venous blood specimen / Unknown 02/18/2025 2:03 PM EDT 02/18/2025 4:12 PM EDT us Xuan Lozada [facility] BLOOD ORDERABLES Final Resu lt [facility] [address] [place], [place] [phone] documented in this encounter Visit Diagnoses Diagnosis Acute cough- Primary Mild intermittent asthma without complication Tiredness Other malaise and fatigue documented in this encounter Additional Health Concerns Assessment Noted Time PHQ-9 Depression Total Score: 8 02/11/20 23 9:24 AM EDT documented as of this encounter Care Teams Wax Specialist Relationship Specialty Start Date End Date Yolie Desir MD [address] [place] [id number] PCP - General Family Medicine 10/26/19 documented as of this encounter
--- OUTSIDE RECORDS SUMMARY | 2025-02-21 15:38 | XMS_ITS | Encounter Summary ---
Author Organization [employer] Address [address] [facility] [address] [place] [address] Care Team Providers Care Software Engineer Advisor Name Role Phone Yolie Desir MD Primary Care Provider + Reason for Visit * Reason Comments Med Refill Encounter Details Date Type Department Care Team ([facility] st Contact Info) Description 11/29/2023 Refill [facility] 230 [place], [place] [phone] Axel Graf MD [address] [place] [address] Diabetic nephropathy associated with type 2 diabetes mellitus ([facility]/HCC) Social History Tobacco Use Types Packs/Day Years [...] diabetes mellitus (CMS/[facility]) documented in this encounter Additional Health Concerns Assessment Noted Time PHQ-9 Depression Total Score: 8 02/11/20 23 9:24 AM EDT documented as of this encounter Care Teams Software Engineer Advisor Relationship Specialty Start Date End Date Yolie Desir MD [address] [place] [id number] PCP - General Family Medicine 10/26/19 documented as of this encounter
--- OUTSIDE RECORDS SUMMARY | 2025-02-21 15:38 | XMS_ITS | Encounter Summary ---
Author Organization [employer] Address [address] [place] [address] Care Team Providers Care Life Tester Outboard Motors Name Role Phone Yolie Desir MD Primary Care Provider + Reason for Visit * Reason Comments Med Refill Encounter Details Date Type Department Care Team ([facility] st Contact Info) Description 11/14/2023 Refill [facility] [address] [place] [phone] Preet Blackwood MD [address] [place], [place] [phone] Social History Tobacco Use Types Packs/Day Years [...] documented as of this encounter Care Teams Life Tester Outboard Motors Relationship Specialty Start Date End Date Yolie Desir MD [address] [place] [phone] PCP - General Family Medicine 10/26/19 documented as of this encounter
--- OUTSIDE RECORDS SUMMARY | 2025-02-21 15:38 | XMS_ITS | Encounter Summary ---
Author Organization [employer] Address [address] [place] [address] Care Team Providers Care Plastic Shaper Name Role Phone Yolie Desir MD Primary [...] documented as of this encounter Care Teams Plastic Shaper Relationship Specialty Start Date End Date Yolie Desir MD [address] [place] [phone] PCP - General Family Medicine 10/26/19 documented as of this encounter
--- OUTSIDE RECORDS SUMMARY | 2025-02-21 15:38 | XMS_ITS | Clinical Summary ---
Author Organization [address] [facility] Address [address] [place] [address] Phone Care Team Providers Care Offal Trimmer Name Role Phone Yolie Desir MD Primary [...] EDT - 02/11/2025 9:49 PM EDT Emergency [facility] Emergency [address] [place] [address] Dehydration (Primary Dx); Mild intermittent asthma without complication Discharge Disposition: Home or Self Care 01/09/2025 3:30 PM EST Office Visit Orthopedic [place] [phone] [phone] Dusty Gonzalez DPM Xerosis of skin (Primary Dx); Ulcer of toe of left foot, with fat layer exposed (CMS/HCC); Metatarsalgia of both feet; Type II diabetes mellitus with peripheral circulatory disorder (CMS/HCC); Diabetic mononeuropathy simplex (CMS/HCC) 12/26/2024 3:00 PM EST Office Visit Orthopedic [place] [address] [phone] Dusty Gonzalez DPM Ulcer of toe of [...] EDT Travel History Travel Start Travel End [place] 01/13/2025 02/01/2025 Obstetrics History Last Filed Vital [...] PM EDT Office Visit Orthopedic Surgery - [place] [address] [phone] Dusty Gonzalez, ERICM [address] [phone] Health Maintenance Due Date Last Done Comments Breast Cancer Screening 1973 Diabetes: Annual Foot Exam 1983 Diabetes: Annual Retina Eye Exam 1983 Hepatitis B Vaccines (1 of 3 - 19+ 3-dose series) 1992 Cervical Cancer Screening: Pap Smear 07/17/2018 07/17/2015 Zoster Vaccines (1 of 2) 2023 COVID-19 Vaccine ( - season) 2024 02/10/2023, 10/21/2021, 04/07/2021, Additional history exists Colorectal Cancer Screening: Colonoscopy 08/24/2024 Depression Screening 08/24/2024 02/10/2023 Social Influencers of Health Screening 08/24/2024 Diabetes: Annual Urine Albumin-Creatinine Ratio (uACR) 09/28/2024 Diabetes: Blood Sugar Control Test (HGBA1C) 07/08/2025 01/08/2025, 01/23/2024 Influenza Vaccine (Season Ended) 2025 11/04/2023, 10/20/2022, 02/03/2021, Additional history exists Diabetes: Annual GFR (Glomerular Filtration Rate) 02/11/2026 [...] No active pulmonary process identified. Telerad RASHID ([id number]) -------- FINAL REPORT -------- Dictated By: Tawanna Knott Dictated Date: 02/12/2025 09:09 ET Assigned Physician: Tawanna Knott Reviewed and Electronically Signed By: Tawanna Knott Signed Date: 02/12/2025 09:10 ET Workstation ID: [id number] Transcribed By: Self Edit Transcribed Date: 02/12/2025 [...] No active pulmonary process identified. Telerad RASHID ([id number]) -------- FINAL REPORT -------- Dictated By: Tawanna Knott Dictated Date: 02/12/2025 09:09 ET Assigned Physician: Tawanna Knott Reviewed and Electronically Signed By: Tawanna Knott Signed Date: 02/12/2025 09:10 ET Workstation ID: [id number] Transcribed By: Self Edit Transcribed Date: 02/12/2025 09:09 ET us Pepe MIKE IMG XR PROCEDURES Final Resu lt * (ABNORMAL) Urinalysis with reflex microscopic (02/11/2025 7:54 PM EDT) Specific [place] Urine 1.013 1.003 - 1.030 LAB URINALYSIS - AUTOMATED METHOD 02/11/2025 8:[address] [facility] pH, Urine 6.0 5.0 - 8.0 pH LAB URINALYSIS - AUTOMATED METHOD 02/11/2025 8:[address] [facility] Leukocytes, Urine Negative Negative LAB URINALYSIS - AUTOMATED METHOD 02/11/2025 8:[address] [facility] Nitrite, Urine Negative Negative LAB URINALYSIS - AUTOMATED METHOD 02/11/2025 8:[address] [facility] Protein, Urine Negative <=Trace mg/dL LAB URINALYSIS - AUTOMATED METHOD 02/11/2025 8:[address] [facility] Glucose, Urine Negative Negative mg/dL LAB URINALYSIS - AUTOMATED METHOD 02/11/2025 8:[address] [facility] Ketones, Urine Negative Negative mg/dL LAB URINALYSIS - AUTOMATED METHOD 02/11/2025 8:[address] [facility] Urobilinogen , Urine 0.2 0.2 - 1.0 mg/dL LAB URINALYSIS - AUTOMATED METHOD 02/11/2025 8:[address] [facility] Bilirubin, Urine Negative Negative LAB URINALYSIS - AUTOMATED METHOD 02/11/2025 8:[address] [facility] Blood, Urine Moderate(A) Negative LAB URINALYSIS - AUTOMATED METHOD 02/11/2025 8:[address] [facility] RBC, Urine 12.8(H) 0 - 4 /HPF LAB URINALYSIS - AUTOMATED METHOD 02/11/2025 8:[address] [facility] WBC, Urine 2.1 0 - 4 /HPF LAB URINALYSIS - AUTOMATED METHOD 02/11/2025 8:40 PM EDT [facility] Squamous Epithelial, Urine 17 0 - 60 /LPF LAB URINALYSIS - AUTOMATED METHOD 02/11/2025 8:40 PM EDT [facility] Bacteria, Urine Negative Negative /HPF LAB URINALYSIS - AUTOMATED METHOD 02/11/2025 8:40 PM EDT [facility] Hyaline Casts, Urine 0.4 0 - 3 /LPF LAB URINALYSIS - AUTOMATED METHOD 02/11/2025 8:40 PM EDT [facility] Urine Urine specimen obtained by clean catch procedure / Unknown Non-blood Collection / Unknown 02/11/2025 7:54 PM EDT 02/11/2025 8:05 PM EDT us Pepe MIKE LAB URINE ORDERABLES Final R esult Performing Organization Address [facility] Co de Phone Number [facility] [address] [place] [address], [place] [phone] * ECG 12 lead (02/11/2025 5:07 PM EDT) Ventricular Rate ECG 83 BPM GEMUSE Atrial Rate 83 BPM GEMUSE P-R Interval 154 ms GEMUSE QRS Duration 84 ms GEMUSE Q-T Interval 364 ms GEMUSE QTc 427 ms GEMUSE P Wave [place] 19 degrees GEMUSE R [place] 22 degrees GEMUSE T [place] 128 degrees GEMUSE ECG Interpretation Normal sinus rhythm Nonspecific ST and T wave abnormality Abnormal ECG No previous ECGs available Confirmed by MD Kelsey Christopher ([id number]) on 02/12/2025 2:11:56 AM GEMUSE 02/11/2025 5:07 PM EDT 02/12/2025 2:11 AM EDT Tahir Burns MD ECG ORDERABLES Final Result Performing Organization Address City/[facility]/ZIP Co de Phone Number GEMUSE * CT Head wo Contrast (02/11/2025 4:51 PM EDT) Anatomical Region Laterality Modality Head and Neck Computed Tomogra phy 02/11/2025 4:58 PM EDT Impressions 02/11/2025 5:01 PM EDT Impression: 1. No acute hemorrhage or intracranial mass effect. 2. Hyperdense left globe, for which clinical correlation is recommended. Vitreous hemorrhage is not excluded. Telerad RASHID ([id number]) -------- FINAL REPORT -------- Dictated By: Tawanna Knott Dictated Date: 02/11/2025 16:58 ET Assigned Physician: Tawanna Knott Reviewed and Electronically Signed By: Tawanna Knott Signed Date: 02/11/2025 17:01 ET Workstation ID: [id number] Transcribed By: Self Edit Transcribed Date: 02/11/2025 16:58 ET Narrative 02/11/2025 5:01 PM EDT History: Dizziness. Weakness. Comparison: No comparison imaging at this institution. Technique: Contiguous axial images were obtained at 2.5 mm intervals through the posterior fossa and at 5 mm intervals through the remainder of the brain without intravenous contrast. DLP: 808.85 mGy/cm [employer] VCT Iterative reconstruction technique Findings: The ventricular [...] brain without intravenous contrast. DLP: 808.85 mGy/cm [employer] VCT Iterative reconstruction technique Findings: The ventricular [...] recommended.Vitreous hemorrhage is not excluded. Telepaul MIKE ([id number]) -------- FINAL REPORT -------- Dictated By: Tawanna Knott Dictated Date: 02/11/2025 16:58 ET Assigned Physician: Tawanna Knott Reviewed and Electronically Signed By: Tawanna Knott Signed Date: 02/11/2025 17:01 ET Workstation ID: [id number] Transcribed By: Self Edit Transcribed Date: 02/11/2025 16:58 ET us Pepe MIKE IMG CT PROCEDURES Final Resu lt * (ABNORMAL) CBC auto differential (02/11/2025 4:37 PM EDT) WBC 8.8 4.8 - 10.8 K/mcL LAB HEMETOLOGY METHOD 02/11/2025 5:04 PM EDT [facility] RBC 4.10 3.80 - 4.80 M/mcL LAB HEMETOLOGY METHOD 02/11/2025 5:04 PM EDT [facility] Hemoglobin 12.3 11.5 - 16.0 g/dL LAB HEMETOLOGY METHOD 02/11/2025 5:04 PM EDT [facility] Hematocrit 37.1 35.0 - 47.0 % LAB [facility] MCV 91.4 79.0 - 98.0 FL LAB HEMETOLOGY METHOD 02/11/2025 5:[address] [facility] MCH 30.3 27.0 - 32.0 pcg LAB HEMETOLOGY [facility] MCHC 33.2 32.0 - 37.0 g/dL LAB HEMETOLOGY METHOD 02/11/2025 5:[address] [facility] RDW 13.2 11.0 - 15.0 % LAB HEMETOLOGY METHOD 02/11/2025 5:[address] [facility] Platelets 291 130 - 400 K/mcL LAB HEMETOLOGY METHOD 02/11/2025 5:[address] [facility] MPV 10.6 7.0 - 11.0 FL LAB HEMETOLOGY METHOD 02/11/2025 5:[address] [facility] NRBC 0.0 <1.0 % LAB HEMETOLOGY METHOD 02/11/2025 5:[address] [facility] NRBC Absolute 0.00 <0.10 K/mcL LAB HEMETOLOGY METHOD 02/11/2025 5:[address] [facility] Neutrophils Relative 51.5 % LAB HEMETOLOGY METHOD 02/11/2025 5:[address] [facility] Lymphocytes Relative 34.9 % LAB HEMETOLOGY METHOD 02/11/2025 5:[address] [facility] Monocytes Relative 5.6 % LAB HEMETOLOGY METHOD 02/11/2025 5:[address] [facility] Eosinophils Relative 7.0 % LAB HEMETOLOGY METHOD 02/11/2025 5:[address] [facility] Basophils Relative 0.5 % LAB HEMETOLOGY METHOD 02/11/2025 5:04 PM EDT [facility] Immature Granulocytes Relative 0.5 % LAB HEMETOLOGY METHOD 02/11/2025 5:04 PM EDT [facility] Neutrophils Absolute 4.52 1.50 - 7.00 K/mcL LAB HEMETOLOGY METHOD 02/11/2025 5:04 PM EDT [facility] Lymphocytes Absolute 3.06 1.00 - 5.00 K/mcL LAB HEMETOLOGY METHOD 02/11/2025 5:04 PM EDT [facility] Monocytes Absolute 0.49 0.20 - 1.00 K/mcL LAB HEMETOLOGY METHOD 02/11/2025 5:04 PM EDT [facility] Eosinophils Absolute 0.61(H) 0.00 - 0.50 K/mcL LAB HEMETOLOGY METHOD 02/11/2025 5:04 PM EDT [facility] Basophils Absolute 0.04 0.00 - 0.20 K/mcL LAB HEMETOLOGY METHOD 02/11/2025 5:04 PM EDT [facility] Immature Granulocytes Absolute 0.04(H) 0.00 - 0.03 K/mcL LAB HEMETOLOGY METHOD 02/11/2025 5:04 PM EDT [facility] Blood Venous blood specimen / Unknown Venipuncture / Unknown 02/11/2025 4:37 PM EDT 02/11/2025 4:51 PM EDT us Tahir B Grant REBOLLEDO LAB BLOOD ORDERABLES Final Resu lt [facility] [address] [place] [address], * Magnesium (02/11/2025 4:37 PM EDT) Magnesium 2.0 1.9 - 2.6 mg/dL LAB CHEMISTRY METHOD 02/11/2025 5:20 PM EDT [facility] Blood Venous blood specimen / Unknown Venipuncture / Unknown 02/11/2025 4:37 PM EDT 02/11/2025 4:51 PM EDT Tahir Burns MD LAB BLOOD ORDERABLES Final Resu lt Performing Organization Address City/[facility]/ZIP Co de Phone Number [facility] [address] [place] [address], [place] [phone] * Lipase (02/11/2025 4:37 PM EDT) Pathologist [facility] Lipase 18 13 - 75 unit/L LAB CHEMISTRY METHOD 02/11/2025 5:20 PM EDT [facility] Blood Venous blood specimen / Unknown Venipuncture / Unknown 02/11/2025 4:37 PM EDT 02/11/2025 4:51 PM EDT Pepe MIKE LAB BLOOD ORDERABLES Final R esult Performing Organization Address [facility] Co de Phone Number [facility] [address] [place] [address], [place] [phone] * (ABNORMAL) Comprehensive Metabolic Panel (CMP) (02/11/2025 4:37 PM EDT) Pathologist [facility] Sodium 137 133 - 145 mmol/L LAB CHEMISTRY METHOD 02/11/2025 5:20 PM EDT [facility] Potassium 3.7 3.5 - 5.5 mmol/L LAB CHEMISTRY METHOD 02/11/2025 5:20 PM EDT [facility] Chloride 104 96 - 110 mmol/L LAB CHEMISTRY METHOD 02/11/2025 5:20 PM EDT [facility] CO2 26 21 - 32 mmol/L LAB CHEMISTRY METHOD 02/11/2025 5:20 PM EDT [facility] Anion Gap 7 3 - 11 LAB CHEMISTRY METHOD 02/11/2025 5:[address] [facility] Glucose 95 70 - 100 mg/dL LAB CHEMISTRY METHOD 02/11/2025 5:[address] [facility] BUN 47(H) 5 - 25 mg/dL LAB CHEMISTRY METHOD 02/11/2025 5:[address] [facility] Creatinine 1.72(H) 0.50 - 1.10 mg/dL LAB CHEMISTRY METHOD 02/11/2025 5:[address] [facility] eGFR 36(L) >=60 mL/min/1. 73m2 LAB CHEMISTRY METHOD 02/11/2025 5:[address] [facility] Comment:Calculation based on the??Chronic Kidney Disease Epidemiology Collaboration (CKD-EPI) equation refit??without adjustment for race. BUN/Creatinine Ratio 27.3 LAB CHEMISTRY METHOD 02/11/2025 5:[address] [facility] Calcium 9.4 8.5 - 10.5 mg/dL LAB CHEMISTRY METHOD 02/11/2025 5:[address] [facility] AST (SGOT) 22 10 - 42 unit/L LAB CHEMISTRY METHOD 02/11/2025 5:[address] [facility] ALT (SGPT) 28 10 - 60 unit/L LAB CHEMISTRY METHOD 02/11/2025 5:[address] [facility] Alkaline Phosphatase 118 42 - 121 unit/L LAB CHEMISTRY METHOD 02/11/2025 5:[address] [facility] Total Protein 7.4 6.0 - 8.0 g/dL LAB CHEMISTRY METHOD 02/11/2025 5:[address] [facility] Albumin 3.7 3.2 - 5.0 g/dL LAB CHEMISTRY METHOD 02/11/2025 5:[address] [facility] Total Bilirubin 0.3 0.0 - 1.4 mg/dL LAB CHEMISTRY METHOD 02/11/2025 5:20 PM EDT [facility] Blood Venous blood specimen / Unknown Venipuncture / Unknown 02/11/2025 4:37 PM EDT 02/11/2025 4:51 PM EDT Pepe MIKE LAB BLOOD ORDERABLES Final R esult [facility] [address] [place] [address], [place] [phone] * HIV Screening (08/24/2017) Pathologist [facility] HIV Screening abstracted Historical Provider HEALTH MAINTENANCE Final Result * Hepatitis C Screening (08/24/2017) Pathologist [facility] Hepatitis C Screening abstracted Historical Provider HEALTH MAINTENANCE Final Result * Pap Smear (07/17/2015) Pathologist [facility] Pap smear no interpretation , abstracted Historical Provider HEALTH MAINTENANCE Final Result from Last 3 Months or Most Recently Relevant to Health Maintenance Insurance MEDICAID - [place] Care Teams Offal Trimmer Relationship Specialty Start Date End Date Yolie Desir MD [address] [place] [phone] PCP - General 07/25/24
--- OUTSIDE RECORDS SUMMARY | 2025-02-21 15:38 | XMS_ITS | Clinical Summary ---
Author Organization [employer] Address [address] [place] [address] Care Team Providers Care Critical Care Nurse Name Role Phone Yolie Ashby MD Primary [...] EVERY 10 DAYS Active Continuous Blood Gluc Cutter [employer] (Dexcom G6 cheese cutter) device USE DIRECTED Active carvedilol (Coreg) 6.25 [...] Omnipod use. Continue to follow up with Customer Service Leader and change of medications. 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 I told pt to call learning support assistant office to fu on prescription of CGM sensor Continue lantus 50 units + Omnipod insulin pod Pt to continue regular wound care at wound clinic for left DM ulcer continue laser therapy on right eye. She is legally blind in the left eye. order labs and FU with me in 3 months Assessment & Plan (01/23/2024 12:14 PM EST): Significantly improving, fu with [facility] wound clinic I will order supplies to [...] for the trip to and back from [place] to visit her son. Mass of axilla [...] AND PLAN FOR TYPE 2 DIABETES MELLITUS ([facility]) WRITTEN ON 11/04/2023 2:41 PM BY YOLIE ASHBY MD Uncontrolled Unclear if insulin pump is working properly Told patient to call endocrinology MARYLOU to see if pump can be replaced sooner vs. Move temporarily to sc Lantus + Humalog Assessment & Plan (01/08/2025 2:18 PM EST): >>ASSESSMENT AND PLAN FOR TYPE 2 DIABETES MELLITUS ([facility]) WRITTEN ON 08/02/2024 3:15 PM BY YOLIE ASHBY MD Controlled, last A1c on 01/2024 was at goal. I will do A1c at upcoming regular visit Patient had episode of hypoglycemia today, probably due to miscalculation of insulin dose adjustment. She will fu on Tuesday with gas meter mechanic. She received glucose load today and BS [...] I congratulated her for reaching out to learning support assistant and compliance w/ medications I gave her information about diabetic diet, she's asking for more 1-1 enthone solder stripper coaching, so I gave her information about wt reduction programs in the area Continue close fu w/ learning support assistant insulin pump + Ozempic Pt had intraocular [...] Description 02/18/2025 1:30 PM EDT Office Visit [facility] [address] [place] [phone] Xuan Lozada NP Acute cough (Primary Dx); Mild intermittent asthma without complication; Tiredness 02/18/2025 Orders Only GENERIC EXTERNAL DATA DEPARTMENT Provider, Generic External Data 02/18/2025 Travel 02/14/2025 Refill [facility] [address] [place] [address] Yolie Ashby MD 02/13/2025 Telephone [facility] [address] [place] [address] Yolie Ashby MD ER Follow-up 02/11/2025 1:20 PM EDT Office Visit [facility] [address] [place] [address] Xuan Lozada NP Dizziness (Primary Dx); Double vision; Cough in adult patient 02/08/2025 Refill [facility] [address] [place] [address] Yolie Ashby MD 02/06/2025 Telephone [facility] [address] [place] [address] Yolie Ashby MD novolog 02/05/2025 Telephone [facility] [address] [place] [address] Yolie Ashby MD April02/01/2025 Population Health Risk Score Community [facility] ([facility]) Department [address] [place] [address], [place] [address] Provider, Population Health Generic 01/29/2025 Refill [facility] [address] [place] [address] Yolie Ashby MD Diabetic nephropathy associated with type 2 diabetes mellitus (CMS/HCC) 01/08/2025 2:00 PM EST Office Visit [facility] [address] [place] [address] Yolie Ashby MD Diabetes mellitus type 2 with peripheral artery disease (CMS/HCC) (Primary Dx); Severe recurrent major depression without psychotic features (CMS/HCC); Mild intermittent asthma with acute exacerbation; Class 1 obesity due to excess calories with serious comorbidity and body mass index (BMI) of 31.0 to 31.9 in adult; Exercise counseling; Dietary counseling 01/08/2025 Travel 01/04/2025 Telephone [facility] [address] [place] [address] Yolie Ashby MD Chart prep 12/31/2024 Telephone [facility] [address] [place] [address] Yolie Ashby MD 12/31/2024 Refill [facility] [address] [place] [address] Yolie Ashby MD Diabetic nephropathy associated with type 2 diabetes mellitus (CMS/HCC) 12/25/2024 Patient Outreach [facility] [address] [place] [address] Yolie Ashby MD Pre-visit Planning (SDOH screening negative and tobacco screening negative) 12/04/2024 Refill [facility] [address] [place] [address] Yolie Ashby MD Diabetic nephropathy associated with type 2 diabetes mellitus (CMS/HCC) from Last 3 Months Immunizations Name Administration [...] Procedure Name Priority Date/Time Associated Diagnosis Comments VITAMIN D,25-OH,TOTAL,IA Routine 02/18/2025 2:03 PM EDT PTH, INTACT WITHOUT CALCIUM Routine 02/18/2025 2:03 PM EDT CALCIUM Routine 02/18/2025 2:03 PM EDT CREATININE, SERUM Routine 02/18/2025 2:0 3 PM EDT UREA NITROGEN (BUN) Routine 02/18/2025 2 :03 PM EDT ELECTROLYTE PANEL Routine 02/18/2025 2:0 3 PM EDT PROTEIN CREATININE RATIO, URINE Routine 02/18/2025 2:03 PM EDT CBC WITH AUTO DIFFERENTIAL Routine 02/18/2025 2:03 PM EDT TSH W/REFLEX TO FT4 Routine 02/18/2025 2 :03 PM EDT Tiredness POCT INFLUENZA B (ID NOW RAPID MOLECULAR) [...] Recently Relevant to Health Maintenance Results * Protein Creatinine Ratio, Urine (02/18/2025 2:03 PM EDT) Creatinine, Urine 99.31 mg/dL [facility] Protein, Total, Random Urine <7 <12 mg/dL [facility] Protein/Creatin ine Ratio, Ur TNP <0.2 [facility] Comment:Unable to calculate urine protein creatinine ratio due tolow creatinine or protein result. 02/18/2025 2:03 PM EDT 02/18/2025 4:16 PM EDT us Generic External Data Provider LAB URINE ORDERAB LES Final Result [facility] [address] [place] [phone] * Vitamin D, 25-Hydroxy, Total, Immunoassay (02/18/2025 2:03 PM EDT) Vitamin D 25-OH Total 36.8 >30 ng/mL [facility] Comment: Health Based Reference Values*< 20 ??ng/mL ??Pitliitxz46-88 ng/mL ??Insufficient> 30 ??ng/mL ??Sufficient*Luis Felipe WATSON. N Engl J Med. 2007;357:266-280There is no well-established upper level of normal vitamin Dlevels. Some laboratories use 50 ng/mL as an upper limit ofnormal. However, toxicity is patient-dependent and may occurat any level. Careful correlation with the patient'spresentation is necessary and, if there is concern forvitamin D toxicity, treatment should be consideredirrespective of the serum level.Care must be taken in interpreting Vitamin D results fromdifferent laboratories and methodologies. ??Published datademonstrated that results from patients undergoinghemodialysis may show a negative bias when tested withvarious automated 25-OH vitamin D assays when compared toLC- MS/MS.When testing samples from patients whose predominant form ofVitamin D is Vitamin D2, such as patients receiving VitaminD2 supplementation, results that are subtherapeutic shouldbe confirmed with another method such as LC-MS/MS. 02/18/2025 2:03 PM EDT 02/18/2025 4:12 PM EDT Generic External Data Provider LAB BLOOD ORDERAB LES Final Result Performing Organization Address [facility] Co de Phone Number [facility] [address] [place] [phone] * TSH W/Reflex to FT4 (02/18/2025 2:03 PM EDT) TSH reflex Free T4 2.28 0.32 - 4.0 uIU/mL [facility] Blood Venous blood specimen / Unknown 02/18/2025 2:03 PM EDT 02/18/2025 4:12 PM EDT Xuan Lozada SKIDDER RUNNER LAB BLOOD ORDERABLES Final Resu lt Performing Organization Address [facility] de Phone Number [facility] [address] [place] [phone] * Creatinine, Serum (02/18/2025 2:03 PM EDT) Creatinine, Serum 0.93 0.5 - 1.4 mg/dL [facility] Estimated Glomerular Filt Rate >60 [facility] Comment:Chronic Kidney Disea se: Estimated GFR < 60 mL/min/1.88p4Dvzxfj Kidney Disease: Estimated GFR < 15 mL/min/1.73m2 02/18/2025 2:03 PM EDT 02/18/2025 4:12 PM EDT Generic External Data Provider LAB BLOOD ORDERAB LES Final Result Performing Organization Address [facility] Co de Phone Number [facility] [address] [place] [phone] * (ABNORMAL) CBC auto differential (02/18/2025 2:03 PM EDT) White Blood Count 8.4 4.8 - 10.8 X10*3/uL [facility] Red Blood Count 3.89(L) 4.20 - 5.50 X10*6/uL [facility] Hemoglobin 11.8(L) 12.0 - 16.0 g/dl [facility] Hematocrit 35.5(L) 37.0 - 47.0 % [facility] Mean Corpuscular Volume 91.3 80.0 - 98.0 fL [facility] Mean Corpuscular Hemoglobin 30.3 27.0 - 33.0 pg [facility] Mean Corpuscular HGB Conc 33.2 31.0 - 35.0 g/dl [facility] Red Cell Distribution Width 13.3 11.0 - 16.0 % [facility] Platelet Count 264 160 - 400 X10*3/uL [facility] Mean Platelet Volume 11.5 9.4 - 12.3 fL [facility] Neutrophils Percent Auto 60.5 45 - 73 % [facility] Imm Gran Pct Auto 0.2 0.0 - 0.4 % [facility] Lymphocytes Percent Auto 25.0 20 - 40 % [facility] Monocytes Percent Auto 8.0 2 - 11 % [facility] Eosinophils Percent Auto 6.1(H) 0 - 4 % [facility] Basophils Percent Auto 0.2 0 - 2 % [facility] NRBC Pct Auto 0.0 0.0 - 0.2 /100WBC [facility] Neutrophils Absolute Auto 5.1 2.0 - 8.3 x10*3/uL [facility] Imm Gran Abs Auto 0.02 0.00 - 0.03 X10*3/uL [facility] Lymphocytes Absolute Auto 2.1 1.2 - 4.9 X10*3/uL [facility] Monocytes Absolute Auto 0.7 0.1 - 1.2 X10*3/uL [facility] Eosinophils Absolute Auto 0.5(H) 0.0 - 0.4 X10*3/uL [facility] Basophils Absolute Auto 0.0 0.0 - 0.2 X10*3/uL [facility] NRBC Abs Auto 0.000 0.0 - 0.012 X10*3/uL [facility] 02/18/2025 2:03 PM EDT 02/18/2025 4:12 PM EDT us Generic External Data Provider LAB BLOOD ORDERAB LES Final Result Performing Organization Address [facility]/ZIP Co de Phone Number [facility] [address] [place] [phone] * (ABNORMAL) BUN (Blood Urea Nitrogen) (02/18/2025 2:03 PM EDT) Urea Nitrogen (BUN) 21(H) 9 - 16 mg/dL [facility] 02/18/2025 2:03 PM EDT 02/18/2025 4:12 PM EDT Generic External Data Provider LAB BLOOD ORDERAB LES Final Result Performing Organization Address [facility] Co de Phone Number [facility] [address] [place] [phone] * PTH, Intact Without Calcium (02/18/2025 2:03 PM EDT) Parathyroid Hormone, Intact 39.6 8.7 - 77.1 pg/mL [facility] 02/18/2025 2:03 PM EDT 02/18/2025 4:12 PM EDT Generic External Data Provider LAB BLOOD ORDERAB LES Final Result Performing Organization Address [facility] Co de Phone Number [facility] [address] [place] [phone] * (ABNORMAL) Calcium (02/18/2025 2:03 PM EDT) Pathologist [facility] Calcium 10.8(H) 8.4 - 10.2 mg/dL [facility] 02/18/2025 2:03 PM EDT 02/18/2025 4:12 PM EDT us Generic External Data Provider LAB BLOOD ORDERAB LES Final Result Performing Organization Address [facility]/ZIP Co de Phone Number [facility] [address] [place] [phone] * (ABNORMAL) Electrolyte Panel (02/18/2025 2:03 PM EDT) [facility] Sodium 140 135 - 145 mmol/L [facility] Potassium 4.3 3.3 - 5.1 mmol/L [facility] Chloride 106 96 - 108 mmol/L [facility] Carbon Dioxide 27 22 - 29 mmol/L [facility] Anion Gap 11(L) 12 - 20 [facility] 02/18/2025 2:03 PM EDT 02/18/2025 4:12 PM EDT [employer] External Data Provider LAB BLOOD ORDERAB LES Final Result Performing Organization Address [facility] de Phone Number [facility] [address] [place] [phone] * Influenza B (ID NOW Rapid Molecular) (02/11/2025 1:46 PM EDT) Pathologist [facility] Influenza B Negative Negative, Indeterminate [facility] Swab 02/11/2025 1:46 PM EDT us Xuan Hughesm SKIDDER RUNNER POINT OF CARE TEST ENTER/EDIT O RDERABLES Final Result Performing Organization Address [facility] Co de Phone Number [facility] [address] [place] [phone] * Influenza A (ID NOW Rapid Molecular) (02/11/2025 1:46 PM EDT) [facility] Influenza A Negative Negative, Indeterminate [facility] Swab 02/11/2025 1:46 PM EDT Result [facility] Xuan Lozada SKIDDER RUNNER POINT OF CARE TEST ENTER/EDIT O RDERABLES Final Result [facility] [address] [place] [phone] * POCT Rapid COVID Ag (02/11/2025 1:44 PM EDT) [facility] Rapid COVID Ag Negative Swab 02/11/2025 1:44 PM EDT Result [facility] Xuan Lozada SKIDDER RUNNER POINT OF CARE TEST ENTER/EDIT O RDERABLES Final Result * (ABNORMAL) POCT HGB A1C (01/08/2025 2:16 PM EST) [facility] Hemoglobin A1C 7.5(A) 4.0 - 6.0 % QC Media Lot # [id number] Lot# Expiration Date Blood 01/08/2025 2:16 PM EST Result [facility] Yolie Ashby MD POINT OF CARE TEST ENTER /EDIT ORDERABLES Final Result * POCT Glucose (01/08/2025 2:14 PM EST) [facility] Glucose Blood, POC 154 60 - 200 mg/dL QC Media Lot # [id number] Lot# Expiration Date , Blood Capillary blood specimen / Unknown 01/08/2025 2:14 PM EST Result [facility] Yolie Ashby MD POINT OF CARE TEST ENTER /EDIT ORDERABLES Final Result * (ABNORMAL) Lipid Panel, Standard (06/25/2024 10:51 AM EDT) [facility] Triglycerides 186(H) <150 mg/dL [facility] Comment:Desirable Triglyceri de: less than 150 mg/dLBorderline High Triglyceride 150-199 mg/dLHigh Triglyceride: 200-499 mg/dLVery High Triglyceride: greater than or equal to 5OO mg/dL Cholesterol 246(H) <200 mg/dL [facility] Comment:Desirable Cholestero l: less than 200 mg/dLBorderline High Cholesterol: 200-239 mg/dLHigh Cholesterol: greater than 239 mg/dL LDL Cholesterol Calculated 163(H) <100 mg/dL [facility] Comment:Desirable LDL: less than 100 mg/dLNear Optimal/Above Optimal LDL: 110- 129 mg/dLBorderline High LDL: 130-159 mg/dLHigh LDL: 160-189 mg/dLVery High LDL: greater than or equal to 190 mg/dL HDL Cholesterol 46 >40 mg/dL [facility] Comment:Desirable HDL: great er than 40 mg/dL Note: This HDL assay may give artificially low results in patients with liver disease. 06/25/2024 10:5 1 AM EDT 06/25/2024 10:51 AM EDT us Generic External Data Provider LAB BLOOD ORDERAB LES Final Result [facility] [address] [place] [address] [phone] * BI Mammogram Screening Tomosynthesis Bilateral (04/03/2024 3:27 PM EDT) Anatomical Region Laterality Modality Breast Bilateral Mammography 04/03/2024 3:27 PM EDT Narrative 05/04/2024 5:45 AM EDT ? [facility] [place] ? [address] ?[place] [address] ? Mammography Report ? Signed ? Patient: Melissa Barnett ?MR#: ?? [id number] ? : 1975 ?Acct:[id number] ? Age/Sex: 48 / F ?ADM Date: 05/14/24 ? Loc: HO.MAMMO ? Attending Dr: Yolie Ashby MD ? Ordering Physician: Yolie Ashby MD ?Results: 1Ne ?? gative ? Date of Service: 04/03/24 ?Follow Up: 1 Year From Orig ?? inal Mammogram ? Procedure(s): MM tomosynthesis screening BI ?? Accession Number(s): [id number] ? cc: Yolie Ashby MD ? EXAMINATION: [...] 0542 ? DD/ 1527 ? TD/TT: ? Inside Sales Territory Manager: ? Procedure Note Donotuseinterpreter, Image - 05/04/2024 [facility] [address] [place] [address] Mammography Report Signed Patient: Melissa BarnettMR#: [id number] : 1975Acct:[id number] Age/Sex: 48 / FADM Date: 04/03/24 Loc: HO.MAMMO Attending Dr: Yolie Ashby MD Ordering Physician: Yolie Ashby MDResults: 1Ne gative Date of Service: 04/03/24Follow Up: 1 Year From Orig ina Mammogram Procedure(s): MM tomosynthesis screening BI Accession Number(s): [id number] cc: Yolie Ashby MD EXAMINATION: MM SCREENING [...] in OV> 05/04/24 0542 DD/ 1527 TD/TT: Inside Sales Territory Manager: Yolie Ashby MD IMG BI PROCEDURES Edited Result - Final * (ABNORMAL) HPV Genotypes 16,18/45 (03/15/2023 11:10 AM EDT) HPV 16 RNA NOT DETECTED NOT DETECTED [employer] HPV 18/45 RNA DETECTED(A) NOT DETECTED [employer] Comment: Methodology: Provider Service Representative Mediated Amplification Cervical sources are required for HPV testing. If a vaginal source from a patient who has had a total hysterectomy with removal of cervix was submitted, please contact the testing laboratory for alternative testing options. 03/15/2023 11:1 0 AM EDT 03/16/2023 6:23 AM EDT Yolie Ashby MD LAB CYTOLOGY ORDERABLES Final Result [facility] [address], [place] [address] [employer] [address] [place] [address] * Hm Pap Smear (03/15/2023) HM Pap smear NIL HPV+ Historical Provider HEALTH MAINTENANCE Final Result from Last 3 Months or Most Recently Relevant to Health Maintenance [place] [address] [place] [address] C3 Care Teams Critical Care Nurse Relationship Specialty Start Date End Date Yolie Ashby MD [address] [place] [phone] PCP - General Family Medicine 10/26/19
--- OUTSIDE RECORDS SUMMARY | 2025-02-21 15:38 | XMS_ITS | Clinical Summary ---
Author Organization [facility] Address [address] [place] [address] Phone Care Team Providers Care Manager Quality Name Role Phone Yolie Desir MD Primary Care Provider [phone] Allergies Active Allergy Reactions Criticality Noted Date [...] Cancer Screening: Sigmoidoscopy 2022 Diabetes: Hemoglobin A1C 04/07/2025 01/08/2025, 01/20 Influenza Vaccine (Season Ended) 2025 11/04/2023, 10/20/2022, 02/03/2021, Additional history exists Pneumococcal Vaccine: Pediat rics (0 to 5 Years) and At-Risk Patients (6 to 64 Years) Completed 02/10/2023, 09/19/2017, 12/10/2015, Additional history exists [place] Care Teams Manager Quality Relationship Specialty Start Date End Date Yolie Desir MD [address] [place] [phone] PCP - General Internal Medicine 04/22/21
--- OUTSIDE RECORDS SUMMARY | 2025-02-21 15:38 | XMS_ITS | Encounter Summary ---
Author Organization [employer] [facility] Address [address] [place] [address] Care Team Providers Care Radiotelephone Technical Operator Name Role Phone Yolie Desir MD Primary Care Provider + Reason for Visit * Reason Onset Date Comments Prior Authorization 10/28/2022 Encounter Details Date Type Department Care Team ([facility] st Contact Info) Description 10/28/2022 Telephone [facility] [address] [place], [place] [phone] Yolie Desir MD [address] [place], [place] [phone] Prior Authorization Social History Tobacco Use Types [...] on filedocumented in this encounter Care Teams Radiotelephone Technical Operator Relationship Specialty Start Date End Date Yolie Desir MD [address] [place] [phone] PCP - General Family Medicine 10/26/19 documented as of this encounter
--- OUTSIDE RECORDS SUMMARY | 2025-02-21 15:38 | XMS_ITS | Encounter Summary ---
Author Organization [email or web address] Address [address] [place] [address] Care Team Providers Care Food Equipment Service Technician Name Role Phone Yolie Desir MD Primary Care Provider + Encounter Details Date Type Department Care Team (Late st Contact Info) Description 01/25/2023 Abstract [facility] [address] [place], [place] [phone] Yolie Desir MD [address] [place] [address] Social History Tobacco Use Types Packs/Day Years [...] on filedocumented in this encounter Care Teams Food Equipment Service Technician Relationship Specialty Start Date End Date Yolie Desir MD [address] [place], [place] [phone] PCP - General Family Medicine 10/26/19 documented as of this encounter
--- OUTSIDE RECORDS SUMMARY | 2025-02-21 15:38 | XMS_ITS | Encounter Summary ---
Author Organization [email or web address] Address [address] [place] [address] Care Team Providers Care Loss Control Technician Name Role Phone Yolie Desir MD Primary Care Provider + Encounter Details Date Type Department Care Team ([facility] st Contact Info) Description 12/31/2024 Telephone [facility] [address] [place], [place] [phone] Yolie Desir MD [address] [place], [place] [phone] Social History Tobacco Use Types Packs/Day Years [...] documented as of this encounter Care Teams Loss Control Technician Relationship Specialty Start Date End Date Yolie Desir MD [address] [place] [phone] PCP - General Family Medicine 10/26/19 documented as of this encounter
--- OUTSIDE RECORDS SUMMARY | 2025-02-21 15:38 | XMS_ITS | Encounter Summary ---
Author Organization [facility] Address [address] [place] [address] Care Team Providers Care Earth Moving Technician Name Role Phone Yolie Desir MD Primary Care Provider + Encounter Details Date Type Department Care Team (Late st Contact Info) Description 02/18/2025 Orders Only GENERIC EXTERNAL DATA DEPARTMENT Provider, Generic External Data Social History Tobacco Use Types Packs/Day Years [...] on file documented as of this encounter Procedures Procedure Name Priority Date/Time Associated Diagnosis Comments PROTEIN CREATININE RATIO, URINE Routine 02/18/2025 2:03 PM EDT VITAMIN D,25-OH,TOTAL,IA Routine 02/18/2025 2:03 PM EDT CREATININE, SERUM Routine 02/18/2025 2:0 3 PM EDT CBC WITH AUTO DIFFERENTIAL Routine 02/18/2025 2:03 PM EDT UREA NITROGEN (BUN) Routine 02/18/2025 2 :03 PM EDT PTH, INTACT WITHOUT CALCIUM Routine 02/18/2025 2:03 PM EDT CALCIUM Routine 02/18/2025 2:03 PM EDT ELECTROLYTE PANEL Routine 02/18/2025 2:0 3 PM EDT documented in this encounter Results * Vitamin D, 25-Hydroxy, Total, Immunoassay (02/18/2025 2:03 PM EDT) Vitamin D 25-OH Total 36.8 >30 ng/mL [facility] Comment: Health Based Reference Values*< 20 ??ng/mL ??Uuizeohtg89-90 ng/mL ??Insufficient> 30 ??ng/mL ??Sufficient*Luis Felipe WATSON. [...] ORDERAB LES Final Result Performing Organization Address City/[facility] [address]/ZIP Co de Phone Number [facility] [address] [place] [phone] * PTH, Intact Without Calcium (02/18/2025 2:03 PM EDT) Pathologist [facility] Parathyroid Hormone, Intact 39.6 8.7 - 77.1 pg/mL [facility] 02/18/2025 2:03 PM EDT 02/18/2025 4:12 PM EDT Generic External Data Provider LAB BLOOD ORDERAB LES Final Result Performing Organization Address City/[facility] [address]/ZIP Co de Phone Number [facility] [address] [place] [phone] * (ABNORMAL) Calcium (02/18/2025 2:03 PM EDT) Calcium 10.8(H) 8.4 - 10.2 mg/dL [facility] 02/18/2025 2:03 PM EDT 02/18/2025 4:12 PM EDT us Generic External Data Provider LAB BLOOD ORDERAB LES Final Result Performing Organization Address City/[facility] [address]/ZIP Co de Phone Number [facility] [address] [place] [phone] * Creatinine, Serum (02/18/2025 2:03 PM EDT) Creatinine, Serum 0.93 0.5 - 1.4 mg/dL [facility] Estimated Glomerular Filt Rate >60 [facility] Comment:Chronic Kidney Disea se: Estimated GFR < 60 mL/min/1.18p6Irnwai Kidney Disease: Estimated GFR < 15 mL/min/1.73m2 02/18/2025 2:03 PM EDT 02/18/2025 4:12 PM EDT us Generic External Data Provider LAB BLOOD ORDERAB LES Final Result Performing Organization Address [facility] Co de Phone Number [facility] [address] [place] [phone] * (ABNORMAL) BUN (Blood Urea Nitrogen) (02/18/2025 2:03 PM EDT) Urea Nitrogen (BUN) 21(H) 9 - 16 mg/dL [facility] 02/18/2025 2:03 PM EDT 02/18/2025 4:12 PM EDT us Generic External Data Provider LAB BLOOD ORDERAB LES Final Result Performing Organization Address [facility] [address]/ZIP Co de Phone Number [facility] [address] [place] [phone] * (ABNORMAL) Electrolyte Panel (02/18/2025 2:03 PM EDT) Pathologist [facility] Sodium 140 135 - 145 mmol/L [facility] Potassium 4.3 3.3 - 5.1 mmol/L [facility] Chloride 106 96 - 108 mmol/L [facility] Carbon Dioxide 27 22 - 29 mmol/L [facility] Anion Gap 11(L) 12 - 20 [facility] 02/18/2025 2:03 PM EDT 02/18/2025 4:12 PM EDT Generic External Data Provider LAB BLOOD ORDERAB LES Final Result Performing Organization Address [facility] [address]/[facility] Co de Phone Number [facility] [address] [place] [phone] * Protein Creatinine Ratio, Urine (02/18/2025 2:03 PM EDT) Pathologist [facility] Creatinine, Urine 99.31 mg/dL [facility] Protein, Total, Random Urine <7 <12 mg/dL [facility] Protein/Creatin ine Ratio, Ur TNP <0.2 [facility] Comment:Unable to calculate urine protein creatinine ratio due tolow creatinine or protein result. 02/18/2025 2:03 PM EDT 02/18/2025 4:16 PM EDT Generic External Data Provider LAB URINE ORDERAB LES Final Result Performing Organization Address [facility] [address]/[facility] Co de Phone Number [facility] [address] [place] [phone] * (ABNORMAL) CBC auto differential (02/18/2025 2:03 PM EDT) Pathologist [facility] White Blood Count 8.4 4.8 - 10.8 X10*3/uL [facility] Red Blood Count 3.89(L) 4.20 - 5.50 X10*6/uL [facility] Hemoglobin 11.8(L) 12.0 - 16.0 g/dl [facility] Hematocrit 35.5(L) 37.0 - 47.0 % [facility] Mean Corpuscular Volume 91.3 80.0 - 98.0 fL [facility] Mean Corpuscular Hemoglobin 30.3 27.0 - 33.0 pg [facility] Mean Corpuscular HGB Conc 33.2 31.0 - 35.0 g/dl [facility] Red Cell Distribution Width 13.3 11.0 - 16.0 % [facility] Platelet Count 264 160 - 400 X10*3/uL [facility] Mean Platelet Volume 11.5 9.4 - 12.3 fL [facility] Neutrophils Percent Auto 60.5 45 - 73 % [facility] Imm Gran Pct Auto 0.2 0.0 - 0.4 % [facility] Lymphocytes Percent Auto 25.0 20 - 40 % [facility] Monocytes Percent Auto 8.0 2 - 11 % [facility] Eosinophils Percent Auto 6.1(H) 0 - 4 % [facility] Basophils Percent Auto 0.2 0 - 2 % [facility] NRBC Pct Auto 0.0 0.0 - 0.2 /100WBC [facility] Neutrophils Absolute Auto 5.1 2.0 - 8.3 x10*3/uL [facility] Imm Gran Abs Auto 0.02 0.00 - 0.03 X10*3/uL [facility] Lymphocytes Absolute Auto 2.1 1.2 - 4.9 X10*3/uL [facility] Monocytes Absolute Auto 0.7 0.1 - 1.2 X10*3/uL [facility] Eosinophils Absolute Auto 0.5(H) 0.0 - 0.4 X10*3/uL [facility] Basophils Absolute Auto 0.0 0.0 - 0.2 X10*3/uL [facility] NRBC Abs Auto 0.000 0.0 - 0.012 X10*3/uL [facility] 02/18/2025 2:03 PM EDT 02/18/2025 4:12 PM EDT us Generic External Data Provider LAB BLOOD ORDERAB LES Final Result [facility] [address] [place] [phone] documented in this encounter Visit Diagnoses Not on filedocumented in this encounter Additional Health Concerns Assessment Noted Time PHQ-9 Depression Total Score: 8 02/11/20 23 9:24 AM EDT documented as of this encounter Care Teams Earth Moving Technician Relationship Specialty Start Date End Date Yolie Desir MD [address] [place] [address] PCP - General Family Medicine 10/26/19 documented as of this encounter
--- OUTSIDE RECORDS SUMMARY | 2025-02-21 15:38 | XMS_ITS | Encounter Summary ---
Author Organization [facility] Address [address] [place] [address] Care Team Providers Care Machinist First Class Name Role Phone Yolie Desir MD Primary Care Provider + Encounter Details Date Type Department Care Team (Late st Contact Info) Description 01/25/2023 Abstract [facility] [address] [place], [place] [phone] Yolie Desir MD [address] [place] [address] Social History Tobacco Use Types Packs/Day Years [...] on filedocumented in this encounter Care Teams Machinist First Class Relationship Specialty Start Date End Date Yolie Desir MD [address] [place], [place] [phone] PCP - General Family Medicine 10/26/19 documented as of this encounter
== END 2025-02-21 14:46 | disposition home or self-care (01) ==
LOC: HO.HKAS 14:10
PROVIDERS: PCP Internal Medicine; Visit Provider Internal Medicine Nephrology
DX: I10 Essential (primary) hypertension (principal); E11.21 Type 2 diabetes mellitus with diabetic nephropathy; E11.22 Type 2 diabetes mellitus with diabetic chronic kidney disease; N18.30 Chronic kidney disease, stage 3 unspecified
CPT/HCPCS: 99214

== ENCOUNTER → 2025-02-21 14:10 | Outpatient (BNVA) | payer MEDICAID, SELFPAY | PROVIDERS: PCP Internal Medicine; Visit Provider Internal Medicine Nephrology | DX: E11.21 Type 2 diabetes mellitus with diabetic nephropathy (principal); E11.22 Type 2 diabetes mellitus with diabetic chronic kidney disease; I25.10 Atherosclerotic heart disease of native coronary artery without angina pectoris; I12.9 Hypertensive chronic kidney disease with stage 1 through stage 4 chronic kidney disease, or unspecified chronic kidney disease; N18.30 Chronic kidney disease, stage 3 unspecified | CPT/HCPCS: 99212 ==

== ENCOUNTER 2025-03-15 12:57 | Outpatient (AMB) | payer MEDICAID, SELFPAY ==
[2025-03-15 13:14] VITALS: BP 102/54; PULSE 88; O2SAT 97; BMI 32.3
--- NOTE | 2025-03-15 13:14 | A.OFFVIS_ITS ---
Vital Signs 03/15/25 13:14 Height 5 ft 7 in Weight 206 lb 2.115 oz BMI 32.3 BP 102/54 L Blood Pressure Location Lt brachial Position Sitting Pulse 88 Pulse Source Pulse Oximeter Pulse Oximetry (%) 97 Oxygen Delivery Method Room Air Intake Visit Reasons: Asthma/DEVYN Shape Carver Required: Yes Shape Carver Services: Shape Carver Present Shape Carver Name: [id number] Allergies sulfamethoxazole [From BACTRIM] Allergy (Severe, Verified 03/15/25 13:16) FACIAL SWELLING trimethoprim [From BACTRIM] Allergy (Severe, Verified 03/15/25 13:16) FACIAL SWELLING levofloxacin [From LEVAQUIN] Allergy (Intermediate, Verified 03/15/25 13:16) REDNESS, SWELLING ITCHINESS AT IV SITE HPI HPI Asthma/DEVYN: Details: 49-year-old lady, nonsmoker, with underlying obesity, DEVYN on CPAP, remote diagnosis of asthma, lost to follow-up for 2 years presents now followed for environmental allergies and asthma. Her symptoms have significantly improved on Xolair. She also continues to use Advair and albuterol MDI. Today she complains of acute exacerbation symptomatic with cough productive of brownish sputum. [facility] Medical History (Updated 02/26/25 @ 07:32 by Iman Joy NP) Asthma DEVYN (obstructive sleep apnea) Osteomyelitis Wound of left foot DM2 (diabetes mellitus, type 2) Hyperlipidemia LDL goal <100 CAD (coronary artery disease) Retinopathy Anxiety Depression Type 2 diabetes mellitus with hyperglycemia, with long-term current use of insulin Proteinuria Type 2 diabetes mellitus with other diabetic kidney complication Essential hypertension Obesity due to excess calories Type 2 diabetes mellitus with diabetic polyneuropathy Surgical History Hx of breast biopsy Hx of section Hx of tubal ligation Hx of coronary artery bypass surgery Family History Maternal Grandmother Diabetes Cervical cancer Brother Diabetes Sister Breast cancer Social History Household Members: Family Household Members Other:: 1 Housing: Apartment Alcohol intake: never Patient Tobacco Use Status: Never used Tobacco Second Hand Smoke Exposure: No service: No Current occupational status: unemployed Female Reproductive History Menstrual Age of Menarche: 11 Review of Systems Const Denies daytime sleepiness, Denies excessive sweating, Denies fatigue, Denies fever(s), Denies lethargy, Denies malaise, Denies night sweats, Denies snoring and Denies weight loss Eyes Denies blurry vision and Denies itchy eyes ENT Denies nasal congestion, Denies post nasal drip, Denies sinus pain, Denies sinus pressure and Denies other ( Thrush) Card Denies chest pain, Denies pedal edema, Denies dyspnea, Denies orthopnea and Denies paroxysmal nocturnal dyspnea Resp Reports cough, Denies hemoptysis, Reports excessive phlegm production, Denies dyspnea, Denies snoring and Denies wheezing GI Denies abdominal pain and Denies heartburn Musc Denies myalgias, Denies arthralgias and Denies joint swelling Skin/Breast Denies rash Neuro Denies memory loss and Denies seizure-like activity Psych Denies abnormal sleep pattern, Denies anxiety and Denies memory loss Endo Denies excessive sweating, Denies fatigue and Denies heat intolerance Wyatt/Lymph Denies easy bruising Aller/Immun Denies itchy eyes, Denies seasonal rhinorrhea and Denies wheezing Physical Exam Vital Signs: Last Vital Signs Pulse 88 03/15/25 13:14 BP 102/54 L 03/15/25 13:14 Pulse Ox 97 03/15/25 13:14 Oxygen Delivery Method Room Air 03/15/25 13:14 BMI result Body Mass Index 32.3 Const General: no acute distress and alert Nutritional Appearance: not obese Orientation/consciousness: Other orientation findings ( oriented) HEENT Head: Yes atraumatic Eyes General: appearance normal, both eyes and all related structures Sclerae: sclerae normal EOM: EOMs intact bilaterally Neck Neck: Yes supple Lymphatic: no lymphadenopathy noted Resp Effort & Inspection: normal respiratory effort and no use of accessory muscles Auscultation: clear to auscultation bilaterally Cardio Rate: regular rate Rhythm: regular rhythm Heart sounds: no gallops, no murmurs and no rubs Skin General skin exam: other ( warm) Extrem General: No clubbing, No cyanosis and No edema Assessment & Plan Assessment & Plan (1) Severe persistent asthma: Code(s): J45.50 - Severe persistent asthma, uncomplicated Category: Medical Plan: Baseline controlled on Xolair, Advair, and albuterol MDI. Continue current regimen. Now with an acute exacerbation, will treat with a course of prednisone and azithromycin. (2) Environmental allergies: Code(s): Z91.09 - Other allergy status, other than to drugs and biological substances Category: Medical Plan: Well controlled on Xolair. Continue current regimen. Medications: New azithromycin For 250 mg dose pack: take 500 mg today (day 1), then 250 mg for 4 days (days 2-5) PO 6 tabs 0RF prednisone 40 mg (2 x 20 mg) PO DAILY 7 tabs 0RF Coding Level of Care Code Est Pt Level 4 (89940) Complex EM visit Add On G2211 Diagnoses Severe persistent asthma J45.50 Environmental allergies Z91.09
--- OUTSIDE RECORDS SUMMARY | 2025-03-15 13:40 | XMS_ITS | Encounter Summary ---
Author Organization [facility] Address [address] [place] [address] Care Team Providers Care Patient Monitor Name Role Phone Yolie Desir MD Primary Care Provider + Reason for Visit * Reason Comments Med Refill Encounter Details Date Type Department Care Team ([facility] st Contact Info) Description 06/15/2024 Refill [facility] [address] [place], [place] [phone] Yolie Desir MD [address] [place] [address] Diabetic nephropathy associated with type 2 diabetes mellitus ([facility]) Social History Tobacco Use Types Packs/Day Years [...] documented as of this encounter Care Teams Patient Monitor Relationship Specialty Start Date End Date Yolie Desir MD [address] [place] [address] PCP - General Family Medicine 10/26/19 documented as of this encounter
--- OUTSIDE RECORDS SUMMARY | 2025-03-15 13:40 | XMS_ITS | Clinical Summary ---
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 60 g 11 024 Active Advair Diskus 250-50 MCG/ACT aerosol powder INHALE 1 PUFF BY MOUTH TWICE DAILY IN THE MORNING AND IN THE EVENING, RINSE MOUTH AFTER USING. 60 each 11 025 Active LORazepam (Ativan) 0.5 MG tablet Take 1 tablet (0.5 mg) by mouth if needed each day for anxiety for up to 2 days. 2 tablet 025 Active Ventolin HFA 108 (90 Base) [...] OF BREATH 90 mL 2 025 Active gabapentin (Neurontin) 100 MG capsuleIndicati ons:Diabetic nephropathy associated with type 2 diabetes mellitus (CMS/HCC) TAKE 2 CAPSULES BY MOUTH THREE TIMES DAILY IN THE MORNING, EVENING AND BEDTIME 180 capsule 025 Active pantoprazole (ProtoNix) 40 MG EC tabletIndicatio ns:Epigastric pain TAKE 1 TABLET BY MOUTH EVERY MORNING 90 tablet 025 Active albuterol (2.5 MG/3ML) 0.083% nebulizer solution INHALE 1 AMPULE USING A NEBULIZER EVERY 6 HOURS NEEDED FOR WHEEZING OR SHORTNESS OF BREATH 90 mL 1 023 2024 Discontinued(R eorder (will not trigger notification to Pharmacy)) pantoprazole (ProtoNix) 40 MG EC tabletIndicatio ns:Epigastric pain TAKE 1 TABLET BY MOUTH EVERY MORNING 90 tablet 024 2024 Discontinued gabapentin (Neurontin) 100 MG capsuleIndicati ons:Diabetic nephropathy associated with type 2 diabetes mellitus (CMS/HCC) TAKE 2 CAPSULES BY MOUTH THREE TIMES DAILY IN THE MORNING, EVENING AND BEDTIME 180 capsule 025 2024 Discontinued albuterol (2.5 MG/3ML) 0.083% nebulizer solution INHALE 1 AMPULE USING A NEBULIZER EVERY 6 HOURS NEEDED FOR WHEEZING OR SHORTNESS OF BREATH 90 mL 1 02/14/2 025 2024 Discontinued(R eorder (will not trigger [...] Omnipod use. Continue to follow up with Press Set Up and change of medications. 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 I told pt to call plans examiner office to fu on prescription of CGM sensor Continue lantus 50 units + Omnipod insulin pod Pt to continue regular wound care at wound clinic for left DM ulcer continue laser therapy on right eye. She is legally blind in the left eye. order labs and FU with me in 3 months Assessment & Plan (01/23/2024 12:14 PM EST): Significantly improving, fu with [facility] [place] [facility] I will order supplies to [...] for the trip to and back from [place] to visit her son. Mass of axilla [...] AND PLAN FOR TYPE 2 DIABETES MELLITUS (CMS/HCC) WRITTEN ON 11/04/2023 2:41 PM BY BOO ASHBY MD Uncontrolled Unclear if insulin pump is working properly Told patient to call endocrinology MARYLOU to see if pump can be replaced sooner vs. Move temporarily to sc Lantus + Humalog Assessment & Plan (01/08/2025 2:18 PM EST): >>ASSESSMENT AND PLAN FOR TYPE 2 DIABETES MELLITUS (CMS/HCC) WRITTEN ON 08/02/2024 3:15 PM BY BOO ASHBY MD Controlled, last A1c on 01/2024 was at goal. I will do A1c at upcoming regular visit Patient had episode of hypoglycemia today, probably due to miscalculation of insulin dose adjustment. She will fu on Tuesday with certified adapted physical educator. She received glucose load today and [...] I congratulated her for reaching out to plans examiner and compliance w/ medications I gave her information about diabetic diet, she's asking for more 1-1 math specialist coaching, so I gave her information about wt reduction programs in the area Continue close fu w/ plans examiner insulin pump + Ozempic Pt had intraocular [...] Encounters Date Type Department Care Team Description 02/27/2025 Refill [facility] [address] [place] [address] Boo Ashby MD Diabetic nephropathy associated with type 2 diabetes mellitus ([facility]); Epigastric pain 02/18/2025 1:30 PM EDT Office Visit [facility] [address] [place] [phone] Xuan Lozada NP Acute cough (Primary Dx); Mild intermittent asthma without complication; Tiredness 02/18/2025 Orders Only GENERIC EXTERNAL DATA DEPARTMENT Provider, Generic External Data 02/18/2025 Travel 02/14/2025 Refill [facility] [address] [place] [address] Boo Ashby MD 02/13/2025 Telephone [facility] [address] [place] [phone] Boo Ashby MD ER Follow-up 02/11/2025 1:20 PM EDT Office Visit [facility] [address] [place] [address] Xuan Lozada NP Dizziness (Primary Dx); Double vision; Cough in adult patient 02/08/2025 Refill [facility] [address] [place] [address] Boo Ashby MD 02/06/2025 Telephone [facility] [address] [place], [place] [phone] Boo Ashby MD novolog 02/05/2025 Telephone [facility] [address] [place] [address] Boo Ashby MD Vicenta 02/01/2025 Population Health Risk Score [facility] (C3) [address] [phone] Provider, Population Health Generic 01/29/2025 Refill [facility] [address] [place] [address] Boo Ashby MD Diabetic nephropathy associated with type 2 diabetes mellitus (CMS/HCC) 01/08/2025 2:00 PM EST Office Visit [facility] [address] [place] [address] Boo Ashby MD Diabetes mellitus type 2 with peripheral artery disease (CMS/HCC) (Primary Dx); Severe recurrent major depression without psychotic features (CMS/HCC); Mild intermittent asthma with acute exacerbation; Class 1 obesity due to excess calories with serious comorbidity and body mass index (BMI) of 31.0 to 31.9 in adult; Exercise counseling; Dietary counseling 01/08/2025 Travel 01/04/2025 Telephone [facility] [address] [place] [address] Boo Ashby MD Chart prep 12/31/2024 Telephone [facility] [address] [place] [address] Boo Ashby MD 12/31/2024 Refill [facility] [address] [place] [address] Boo Ashby MD Diabetic nephropathy associated with type 2 diabetes mellitus (CMS/HCC) 12/25/2024 Patient Outreach [facility] [address], [place] [phone] Boo Ashby MD Pre-visit Planning (SDOH screening negative and tobacco screening negative) from Last 3 Months Immunizations Name Administration [...] 2:03 PM EDT) Creatinine, Urine 99.31 mg/dL [facility] Protein, Total, Random Urine <7 <12 mg/dL [facility] Protein/Creatin ine Ratio, Ur TNP <0.2 [facility] Comment:Unable to calculate urine protein creatinine ratio due tolow creatinine or protein result. 02/18/2025 2:03 PM EDT 02/18/2025 4:16 PM EDT us Generic External Data Provider LAB URINE ORDERAB LES Final Result [facility] [address] [place] [phone] * Vitamin D, 25-Hydroxy, Total, Immunoassay (02/18/2025 2:03 PM EDT) Vitamin D 25-OH Total 36.8 >30 ng/mL [facility] Comment: Health Based Reference Values*< 20 ??ng/mL ??Waolwcddx08-75 ng/mL ??Insufficient> 30 ??ng/mL ??Sufficient*Luis Felipe WATSON. [...] ORDERAB LES Final Result Performing Organization Address [facility] Co de Phone Number [facility] [address] [place] [phone] * TSH W/Reflex to FT4 (02/18/2025 2:03 PM EDT) TSH reflex Free T4 2.28 0.32 - 4.0 uIU/mL [facility] Blood Venous blood specimen / Unknown 02/18/2025 2:03 PM EDT 02/18/2025 4:12 PM EDT Xuan Lozada FASHION DESIGNER LAB BLOOD ORDERABLES Final Resu lt Performing Organization Address [facility] Co de Phone Number [facility] [address] [place] [phone] * Creatinine, Serum (02/18/2025 2:03 PM EDT) Creatinine, Serum 0.93 0.5 - 1.4 mg/dL [facility] Estimated Glomerular Filt Rate >60 [facility] Comment:Chronic Kidney Disea se: Estimated GFR < 60 mL/min/[id number] Kidney Disease: Estimated GFR < 15 mL/min/1.73m2 02/18/2025 2:03 PM EDT 02/18/2025 4:12 PM EDT Generic External Data Provider LAB BLOOD ORDERAB LES Final Result Performing Organization Address [facility] Co de Phone Number [facility] [address] [place] [phone] * (ABNORMAL) CBC auto differential (02/18/2025 2:03 PM EDT) White Blood Count 8.4 4.8 - 10.8 X10*3/uL [facility] Red Blood Count 3.89(L) 4.20 - 5.50 X10*6/uL [facility] Hemoglobin 11.8(L) 12.0 - 16.0 g/dl [facility] Hematocrit 35.5(L) 37.0 - 47.0 % [facility] Mean Corpuscular Volume 91.3 80.0 - 98.0 fL [facility] Mean Corpuscular Hemoglobin 30.3 27.0 - 33.0 pg [facility] Mean Corpuscular HGB Conc 33.2 31.0 - 35.0 g/dl [facility] Red Cell Distribution Width 13.3 11.0 - 16.0 % [facility] Platelet Count 264 160 - 400 X10*3/uL [facility] Mean Platelet Volume 11.5 9.4 - 12.3 fL [facility] Neutrophils Percent Auto 60.5 45 - 73 % [facility] Imm Gran Pct Auto 0.2 0.0 - 0.4 % [facility] Lymphocytes Percent Auto 25.0 20 - 40 % [facility] Monocytes Percent Auto 8.0 2 - 11 % [facility] Eosinophils Percent Auto 6.1(H) 0 - 4 % [facility] Basophils Percent Auto 0.2 0 - 2 % [facility] NRBC Pct Auto 0.0 0.0 - 0.2 /100WBC [facility] Neutrophils Absolute Auto 5.1 2.0 - 8.3 x10*3/uL [facility] Imm Gran Abs Auto 0.02 0.00 - 0.03 X10*3/uL [facility] Lymphocytes Absolute Auto 2.1 1.2 - 4.9 X10*3/uL [facility] Monocytes Absolute Auto 0.7 0.1 - 1.2 X10*3/uL [facility] Eosinophils Absolute Auto 0.5(H) 0.0 - 0.4 X10*3/uL [facility] Basophils Absolute Auto 0.0 0.0 - 0.2 X10*3/uL [facility] NRBC Abs Auto 0.000 0.0 - 0.012 X10*3/uL [facility] 02/18/2025 2:03 PM EDT 02/18/2025 4:12 PM EDT us Generic External Data Provider LAB BLOOD ORDERAB LES Final Result Performing Organization Address City/[facility]/ZIP Co de Phone Number [facility] [address] [place] [phone] * (ABNORMAL) BUN (Blood Urea Nitrogen) (02/18/2025 2:03 PM EDT) Urea Nitrogen (BUN) 21(H) 9 - 16 mg/dL [facility] 02/18/2025 2:03 PM EDT 02/18/2025 4:12 PM EDT Generic External Data Provider LAB BLOOD ORDERAB LES Final Result Performing Organization Address [facility] Co de Phone Number [facility] [address] [place] [phone] * PTH, Intact Without Calcium (02/18/2025 2:03 PM EDT) Parathyroid Hormone, Intact 39.6 8.7 - 77.1 pg/mL [facility] 02/18/2025 2:03 PM EDT 02/18/2025 4:12 PM EDT Generic External Data Provider LAB BLOOD ORDERAB LES Final Result Performing Organization Address [facility] Co de Phone Number [facility] [address] [place] [phone] * (ABNORMAL) Calcium (02/18/2025 2:03 PM EDT) Calcium 10.8(H) 8.4 - 10.2 mg/dL [facility] 02/18/2025 2:03 PM EDT 02/18/2025 4:12 PM EDT us Generic External Data Provider LAB BLOOD ORDERAB LES Final Result Performing Organization Address [facility]/ZIP Co de Phone Number [facility] [address] [place] [phone] * (ABNORMAL) Electrolyte Panel (02/18/2025 2:03 PM EDT) [facility] Sodium 140 135 - 145 mmol/L [facility] Potassium 4.3 3.3 - 5.1 mmol/L [facility] Chloride 106 96 - 108 mmol/L [facility] Carbon Dioxide 27 22 - 29 mmol/L [facility] Anion Gap 11(L) 12 - 20 [facility] 02/18/2025 2:03 PM EDT 02/18/2025 4:12 PM EDT Generic External Data Provider LAB BLOOD ORDERAB LES Final Result Performing Organization Address [facility] Co de Phone Number [facility] [address] [place] [phone] * Influenza B (ID NOW Rapid Molecular) (02/11/2025 1:46 PM EDT) [facility] Influenza B Negative Negative, Indeterminate [facility] Swab 02/11/2025 1:46 PM EDT us Xuan Lozada FASHION DESIGNER POINT OF CARE TEST ENTER/EDIT O RDERABLES Final Result Performing Organization Address [facility]/ZIP Co de Phone Number [facility] [address] [place] [phone] * Influenza A (ID NOW Rapid Molecular) (02/11/2025 1:46 PM EDT) [facility] Influenza A Negative Negative, Indeterminate [facility] Swab 02/11/2025 1:[address] [facility] Xuan Lozada FASHION DESIGNER POINT OF CARE TEST ENTER/EDIT O RDERABLES Final Result [facility] [address] [place] [phone] * POCT Rapid COVID Ag (02/11/2025 1:44 PM EDT) [facility] Rapid COVID Ag Negative Swab 02/11/2025 1:[address] [facility] Xuan Lozada FASHION DESIGNER POINT OF CARE TEST ENTER/EDIT O RDERABLES Final Result * (ABNORMAL) POCT HGB A1C (01/08/2025 2:16 PM EST) [facility] Hemoglobin A1C 7.5(A) 4.0 - 6.0 % QC Media Lot # [id number] Lot# Expiration Date Blood 01/08/2025 2:[address] [facility] Boo Ashby MD POINT OF CARE TEST ENTER /EDIT ORDERABLES Final Result * POCT Glucose (01/08/2025 2:14 PM EST) [facility] Glucose Blood, POC 154 60 - 200 mg/dL [employer] Lot # [id number] Lot# Expiration Date Blood Capillary blood specimen / Unknown 01/08/2025 2:[address] [facility] Boo Ashby MD POINT OF CARE TEST ENTER /EDIT ORDERABLES Final Result * (ABNORMAL) Lipid Panel, Standard (06/25/2024 10:51 AM EDT) Triglycerides 186(H) <150 mg/dL [facility] Comment:Desirable Triglyceri de: less than 150 mg/dLBorderline High Triglyceride 150-199 mg/dLHigh Triglyceride: 200-499 mg/dLVery High Triglyceride: greater than or equal to 5OO mg/dL Cholesterol 246(H) <200 mg/dL [facility] Comment:Desirable Cholestero l: less than 200 mg/dLBorderline High Cholesterol: 200-239 mg/dLHigh Cholesterol: greater than 239 mg/dL LDL Cholesterol Calculated 163(H) <100 mg/dL [facility] Comment:Desirable LDL: less than 100 mg/dLNear Optimal/Above Optimal LDL: 110- 129 mg/dLBorderline High LDL: 130-159 mg/dLHigh LDL: 160-189 mg/dLVery High LDL: greater than or equal to 190 mg/dL HDL Cholesterol 46 >40 mg/dL [facility] Comment:Desirable HDL: great er than 40 mg/dL Note: This HDL assay may give artificially low results in patients with liver disease. 06/25/2024 10:5 1 AM EDT 06/25/2024 10:51 AM EDT us Generic External Data Provider LAB BLOOD ORDERAB LES Final Result [facility] [address] [place] [phone] * BI Mammogram Screening Tomosynthesis Bilateral (04/03/2024 3:27 PM EDT) Anatomical Region Laterality Modality Breast Bilateral Mammography 04/03/2024 3:27 PM EDT Narrative 05/04/2024 5:45 AM EDT ? [facility] ? [address] ?[place] [address] ? Mammography Report ? Signed ? Patient: Campos Ham,Melissa ?MR#: ?? [id number] ? : 1975 ?Acct:[id number] ? Age/Sex: 48 / F ?ADM Date: 05/14/24 ? Loc: HO.MAMMO ? Attending Dr: Boo Ashby MD ? Ordering Physician: Boo Ashby MD ?Results: 1Ne ?? gative ? Date of Service: 04/03/24 ?Follow Up: 1 Year From Orig ?? inal Mammogram ? Procedure(s): MM tomosynthesis screening BI ?? Accession Number(s): [id number] ? cc: Boo Ashby MD ? EXAMINATION: ?? MM SCREENING [...] by Xochitl Cerrato MD in OV> ? 05/04/24541 ? DD/ 1527 ? TD/TT: ? Computer Typesetter: ? Procedure Note Donmodestoter, Image - 05/04/2024 [facility] [address] [place] [address] Mammography Report Signed Patient: Melissa BarnettMR#: [id number] : 1975Acct:[id number] Age/Sex: 48 / FADM Date: 04/03/24 Loc: HO.MAMMO Attending Dr: Boo Ashby MD Ordering Physician: Boo Ashby MDResults: 1Ne gative Date of Service: 04/03/24Follow Up: 1 Year From Orig ina Mammogram Procedure(s): MM tomosynthesis screening BI Accession Number(s): [id number] cc: Boo Ashby MD EXAMINATION: MM SCREENING DIGITAL BREAST [...] in OV> 05/04/24 0542 DD/ 1527 TD/TT: Computer Typesetter: Boo Ashby MD IMG BI PROCEDURES Edited Result - Final * (ABNORMAL) HPV Genotypes 16,18/45 (03/15/2023 11:10 AM EDT) HPV 16 RNA NOT DETECTED NOT DETECTED [facility] [employer] HPV 18/45 RNA DETECTED(A) NOT DETECTED [facility] [employer] Comment: Methodology: News Broadcaster Mediated Amplification Cervical sources are required for HPV testing. If a vaginal source from a patient who has had a total hysterectomy with removal of cervix was submitted, please contact the testing laboratory for alternative testing options. 03/15/2023 11:1 0 AM EDT 03/16/2023 6:23 AM EDT Boo Ashby MD LAB CYTOLOGY ORDERABLES Final Result [facility] [address], [place] [phone] [facility] [employer] [address] [place] [phone] * Hm Pap Smear (03/15/2023) HM Pap smear NIL HPV+ Historical Provider HEALTH MAINTENANCE Final Result from Last 3 Months or Most Recently Relevant to Health Maintenance Insurance [address] [place], [place] [id number] Policy Manager C3 Care Teams Patient Registrar Relationship Specialty Start Date End Date Boo Ashby MD [address] [place] [phone] PCP - General Family Medicine 10/26/19
--- OUTSIDE RECORDS SUMMARY | 2025-03-15 13:40 | XMS_ITS | Encounter Summary ---
Author Organization [employer] Address [address] [place] [address] Care Team Providers Care Drying Rack Changer Name Role Phone Yolie Desir MD Primary Care Provider + Reason for Visit * Reason Comments Med Refill Encounter Details Date Type Department Care Team ([facility] st Contact Info) Description 12/26/2023 Refill [facility] [address] [place], [place] [phone] [facility] [address] [place] [address] Acute on chronic congestive heart failure, unspecified [...] documented as of this encounter Care Teams Drying Rack Changer Relationship Specialty Start Date End Date Yolie Desir MD [address] [place] [address] PCP - General Family Medicine 10/26/19 documented as of this encounter
--- OUTSIDE RECORDS SUMMARY | 2025-03-15 13:40 | XMS_ITS | Encounter Summary ---
Author Organization [employer] Address [address] [place] [address] Care Team Providers Care Contact Lens Molder Name Role Phone Yolie Desir MD Primary Care Provider + Reason for Visit * Reason Comments Med Refill Encounter Details Date Type Department Care Team ([facility] st Contact Info) Description 12/22/2023 Refill [facility] [address] [place], [place] [phone] [facility] [address] [place] [address] Acute on chronic congestive heart failure, unspecified [...] documented as of this encounter Care Teams Contact Lens Molder Relationship Specialty Start Date End Date Yolie Desir MD [address] [place] [address] PCP - General Family Medicine 10/26/19 documented as of this encounter
--- OUTSIDE RECORDS SUMMARY | 2025-03-15 13:40 | XMS_ITS | Encounter Summary ---
Author Organization [employer] Address [address] [facility] [place] [address] Care Team Providers Care Cloth Finishing Range Operator Chief Name Role Phone Yolie Desir MD Primary Care Provider + Reason for Visit * Reason Comments Med Refill Encounter Details Date Type Department Care Team ([facility] st Contact Info) Description 12/29/[address] [facility] MED[facility]INE [address] [place], [place] [phone] Yolie Desir MD [address] [place], [place] [phone] Diabetic nephropathy associated with type 2 diabetes [...] nephropathy associated with type 2 diabetes mellitus (CMS/[facility]) documented in this encounter Additional Health Concerns Assessment Noted Time PHQ-9 Depression Total Score: 8 02/11/20 23 9:24 AM EDT documented as of this encounter Care Teams Cloth Finishing Range Operator Chief Relationship Specialty Start Date End Date Yolie Desir MD [address] [place] [address] PCP - General Family Medicine 10/26/19 documented as of this encounter
--- OUTSIDE RECORDS SUMMARY | 2025-03-15 13:40 | XMS_ITS | Encounter Summary ---
Author Organization [employer] Address [address] [place] [address] Care Team Providers Care Principal Gifts Officer Name Role Phone Yolie Desir MD Primary Care Provider + Reason for Visit * Reason Comments Med Refill Encounter Details Date Type Department Care Team ([facility] st Contact Info) Description 01/02/2024 Refill [facility] [address] [place], [place] [phone] [facility] [address] [place] [address] Acute on chronic congestive heart failure, unspecified [...] documented as of this encounter Care Teams Principal Gifts Officer Relationship Specialty Start Date End Date Yolie Desir MD [address] [place] [address] PCP - General Family Medicine 10/26/19 documented as of this encounter
--- OUTSIDE RECORDS SUMMARY | 2025-03-15 13:40 | XMS_ITS | Encounter Summary ---
Author Organization [employer] Address [address] [place] [address] Care Team Providers Care Resource Management Planner Name Role Phone Yolie Desir MD Primary Care Provider + Reason for Visit * Reason Comments Med Refill Encounter Details Date Type Department Care Team ([facility] st Contact Info) Description 11/29/2023 Refill [facility] DI[facility]ET[facility]/NUTRITION [address] [place], [place] [phone] Axel Graf MD [address] [place] [address] Diabetic nephropathy associated with type 2 diabetes mellitus ([facility]/HCC) Social History Tobacco Use Types Packs/Day Years [...] nephropathy associated with type 2 diabetes mellitus (CMS/[facility]) documented in this encounter Additional Health Concerns Assessment Noted Time PHQ-9 Depression Total Score: 8 02/11/20 23 9:24 AM EDT documented as of this encounter Care Teams Resource Management Planner Relationship Specialty Start Date End Date Yolie Desir MD [address] [place] [phone] PCP - General Family Medicine 10/26/19 documented as of this encounter
--- OUTSIDE RECORDS SUMMARY | 2025-03-15 13:40 | XMS_ITS | Clinical Summary ---
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 ([facility] V24, [facility] V28) 09/28/2024 Diabetic ulcer of left midfo ot associated with type 2 diabetes mellitus, with fat layer exposed ([facility] [facility] V24, [facility] V28) 09/28/2024 Encounters Date Type Department Care Team Description 02/11/2025 4:00 PM EDT - 02/11/2025 9:49 PM EDT Emergency [facility] Emergency [address] [place] [phone] Dehydration (Primary Dx); Mild intermittent asthma without complication Discharge Disposition: Home or Self Care 01/09/2025 3:30 PM EST Office Visit Orthopedic Surgery [facility] [address] [phone] Dusty Gonzalez, DPM Xerosis of skin (Primary Dx); Ulcer of toe of left foot, with fat layer exposed ([facility] V24, [facility] V28); Metatarsalgia of both feet; Type II diabetes mellitus with peripheral circulatory disorder ([facility] [place] [facility] V24, [facility] V28); Diabetic mononeuropathy simplex ([facility] V24, [facility] V28) 12/26/2024 3:00 PM EST Office Visit Orthopedic Surgery [facility] [address] [phone] Dusty Gonzalez, DPM Ulcer of toe of right foot, with fat layer exposed ([facility] V24, [facility] V28) (Primary Dx); Dermatophytosis of nail; Pain in toe of right foot; Pain in toe of left foot; Diabetic mononeuropathy simplex ([facility] [place] V24, [facility] [place] V28); Type II diabetes mellitus with peripheral circulatory disorder ([facility] V24, [facility] V28); Metatarsalgia of both feet; Ulcer of toe of left foot, limited to breakdown of skin ([facility] V24, [facility] V28) from Last 3 Months Medical History Medical History Date Comments Diabetes mellitus ([facility] V24, [facility] V28) Social History Tobacco Use Types Packs/Day Years [...] Orientation Straight 02/11/2025 4: 13 PM EDT Obstetrics History Last Filed Vital Signs Vital [...] Upcoming Encounters Date Type Department Care Team ([facility] st Contact Info) Description 03/25/2025 3:30 PM EDT Office Visit Orthopedic Surgery - [place] [address] [phone] Dusty Gonzalez, DPM [address] [phone] Health Maintenance Due Date Last Done Comments Breast Cancer Screening 1973 Diabetes: Annual Foot Exam 1983 Diabetes: Annual Retina Eye Exam 1983 Hepatitis B Vaccines (1 of 3 - 19+ 3-dose series) 1992 Cervical Cancer Screening: Pap Smear 07/17/2018 07/17/2015 Zoster Vaccines (1 of 2) 2023 COVID-19 Vaccine ( season) 2024 02/10/2023, 10/21/2021, [...] age to complete this topic Meningococcal B Vaccine Aged Out No l onger eligible based on patient's age to complete [...] PM EDT HEPATITIS C SCREENING Routine 08/24/2017 HIV SCREENING Routine 08/24/2017 HM PAP SMEAR Routine 07/17/2015 from Last 3 Months or Most Recently Relevant to Health Maintenance Results * ECG-Annotated (02/13/2025) us Provider Onbase ECG ORDERABLES Final Result * XR Chest 2 Views (02/11/2025 8:04 PM EDT) Anatomical Region Laterality Modality Body Radiographic Ritika ging 02/12/2025 9:09 AM EDT Impressions 02/12/2025 9:10 AM EDT Impression: No active pulmonary process identified. Telerad RASHID ([id number]) -------- FINAL REPORT -------- Dictated By: Tawanna Knott Dictated Date: 02/12/2025 09:09 ET Assigned Physician: Tawanna Knott Reviewed and Electronically Signed By: Tawanna Knott Signed Date: 02/12/2025 09:10 ET Workstation ID: [id number] Transcribed By: Self Edit Transcribed Date: 02/12/2025 [...] No active pulmonary process identified. Telerad RASHID ([id number]) -------- FINAL REPORT -------- Dictated By: Tawanna Knott Dictated Date: 02/12/2025 09:09 ET Assigned Physician: Tawanna Knott Reviewed and Electronically Signed By: Tawanna Knott Signed Date: 02/12/2025 09:10 ET Workstation ID: [id number] Transcribed By: Self Edit Transcribed Date: 02/12/2025 09:09 ET us Pepe MIKE IMG XR PROCEDURES Final Resu lt * (ABNORMAL) Urinalysis with reflex microscopic (02/11/2025 7:54 PM EDT) Specific [place] Urine 1.013 1.003 - 1.030 LAB URINALYSIS - AUTOMATED METHOD [facility] pH, Urine 6.0 5.0 - 8.0 pH LAB URINALYSIS - AUTOMATED METHOD 02/11/2025 8:[address] [facility] Leukocytes, Urine Negative Negative LAB URINALYSIS - AUTOMATED METHOD 02/11/2025 8:[address] [facility] Nitrite, Urine Negative Negative LAB URINALYSIS - AUTOMATED METHOD 02/11/2025 8:[address] [facility] Protein, Urine Negative <=Trace mg/dL LAB URINALYSIS - AUTOMATED METHOD 02/11/2025 8:[address] [facility] Glucose, Urine Negative Negative mg/dL LAB URINALYSIS - AUTOMATED METHOD 02/11/2025 8:[address] [facility] Ketones, Urine Negative Negative mg/dL LAB URINALYSIS - AUTOMATED METHOD 02/11/2025 8:[address] [facility] Urobilinogen , Urine 0.2 0.2 - 1.0 mg/dL LAB URINALYSIS - AUTOMATED METHOD 02/11/2025 8:[address] [facility] Bilirubin, Urine Negative Negative LAB URINALYSIS - AUTOMATED METHOD 02/11/2025 8:[address] [facility] Blood, Urine Moderate(A) Negative LAB URINALYSIS - AUTOMATED METHOD 02/11/2025 8:40 PM EDT [facility] RBC, Urine 12.8(H) 0 - 4 /HPF LAB URINALYSIS - AUTOMATED METHOD 02/11/2025 8:40 PM EDT [facility] WBC, Urine 2.1 0 - 4 /HPF LAB URINALYSIS - AUTOMATED METHOD 02/11/2025 8:40 PM EDT [facility] Squamous Epithelial, Urine 17 0 - 60 /LPF LAB URINALYSIS - AUTOMATED METHOD 02/11/2025 8:40 PM EDT [facility] Bacteria, Urine Negative Negative /HPF LAB URINALYSIS - AUTOMATED METHOD 02/11/2025 8:40 PM EDT [facility] Hyaline Casts, Urine 0.4 0 - 3 /LPF LAB URINALYSIS - AUTOMATED METHOD 02/11/2025 8:40 PM EDT [facility] Urine Urine specimen obtained by clean catch procedure / Unknown Non-blood Collection / Unknown 02/11/2025 7:54 PM EDT 02/11/2025 8:05 PM EDT us Pepe MIKE LAB URINE ORDERABLES Final R esult [facility] [address] [place] [address], * ECG 12 lead (02/11/2025 5:07 PM EDT) Ventricular Rate ECG 83 BPM GEMUSE Atrial Rate 83 BPM GEMUSE P-R Interval 154 ms GEMUSE QRS Duration 84 ms GEMUSE Q-T Interval 364 ms GEMUSE QTc 427 ms GEMUSE P Wave [place] 19 degrees GEMUSE R [place] 22 degrees GEMUSE T [place] 128 degrees GEMUSE ECG Interpretation Normal sinus rhythm Nonspecific ST and T wave abnormality Abnormal ECG No previous ECGs available Confirmed by MD Low, Dusty ([id number]) on 02/12/2025 2:11:56 AM GEMUSE 02/11/2025 5:07 PM EDT 02/12/2025 2:11 AM EDT Tahir B Grant REBOLLEDO ECG ORDERABLES Final Result GEMUSE * CT Head wo Contrast (02/11/2025 4:51 PM EDT) Anatomical Region Laterality Modality Head and Neck Computed Tomogra phy 02/11/2025 4:58 PM EDT Impressions 02/11/2025 5:01 PM EDT Impression: 1. No acute hemorrhage or intracranial mass effect. 2. Hyperdense left globe, for which clinical correlation is recommended. Vitreous hemorrhage is not excluded. Telerad PA ([id number]) -------- FINAL REPORT -------- Dictated By: Tawanna Knott Dictated Date: 02/11/2025 16:58 ET Assigned Physician: Tawanna Knott Reviewed and Electronically Signed By: Tawanna Knott Signed Date: 02/11/2025 17:01 ET Workstation ID: [id number] Transcribed By: Self Edit Transcribed Date: 02/11/2025 16:58 ET Narrative 02/11/2025 5:01 PM EDT History: Dizziness. Weakness. Comparison: No comparison imaging at this institution. Technique: Contiguous axial images were obtained at 2.5 mm intervals through the posterior fossa and at 5 mm intervals through the remainder of the brain without intravenous contrast. DLP: 808.85 mGy/cm [email or web address] VCT Iterative reconstruction technique Findings: The ventricular [...] brain without intravenous contrast. DLP: 808.85 mGy/cm [email or web address] VCT Iterative reconstruction technique Findings: The ventricular [...] is recommended.Vitreous hemorrhage is not excluded. Telepaul IMKE ([id number]) -------- FINAL REPORT -------- Dictated By: Tawanna Knott Dictated Date: 02/11/2025 16:58 ET Assigned Physician: Tawanna Knott Reviewed and Electronically Signed By: Tawanna Knott Signed Date: 02/11/2025 17:01 ET Workstation ID: [id number] Transcribed By: Self Edit Transcribed Date: 02/11/2025 16:58 ET us Pepe MIKE IMG CT PROCEDURES Final Resu lt * (ABNORMAL) CBC auto differential (02/11/2025 4:37 PM EDT) WBC 8.8 4.8 - 10.8 K/[facility] LAB HEMETOLOGY METHOD 02/11/2025 5:04 PM EDT [facility] RBC 4.10 3.80 - 4.80 M/mcL LAB HEMETOLOGY METHOD 02/11/2025 5:[address] [facility] Hemoglobin 12.3 11.5 - 16.0 g/dL LAB HEMETOLOGY METHOD 02/11/2025 5:[address] [facility] Hematocrit 37.1 35.0 - 47.0 % LAB HEMETOLOGY METHOD 02/11/2025 5:[address] [facility] MCV 91.4 79.0 - 98.0 FL LAB HEMETOLOGY METHOD 02/11/2025 5:[address] [facility] MCH 30.3 27.0 - 32.0 pcg LAB HEMETOLOGY METHOD 02/11/2025 5:[address] [facility] MCHC 33.2 32.0 - 37.0 g/dL LAB HEMETOLOGY METHOD 02/11/2025 5:[address] [facility] RDW 13.2 11.0 - 15.0 % LAB HEMETOLOGY METHOD 02/11/2025 5:[address] [facility] Platelets 291 130 - 400 K/mcL LAB HEMETOLOGY METHOD 02/11/2025 5:[address] [facility] MPV 10.6 7.0 - 11.0 FL LAB HEMETOLOGY METHOD 02/11/2025 5:[address] [facility] NRBC 0.0 <1.0 % LAB HEMETOLOGY METHOD 02/11/2025 5:[address] [facility] NRBC Absolute 0.00 <0.10 K/mcL LAB HEMETOLOGY METHOD 02/11/2025 5:[address] [facility] Neutrophils Relative 51.5 % LAB HEMETOLOGY METHOD 02/11/2025 5:[address] [facility] Lymphocytes Relative 34.9 % LAB HEMETOLOGY METHOD 02/11/2025 5:04 PM EDT [facility] Monocytes Relative 5.6 % LAB HEMETOLOGY METHOD [facility] Eosinophils Relative 7.0 % LAB HEMETOLOGY METHOD 02/11/2025 5:[address] [facility] Basophils Relative 0.5 % LAB HEMETOLOGY METHOD [facility]2025 [facility] Immature Granulocytes Relative 0.5 % LAB HEMETOLOGY METHOD 02/11/2025 5:[address] [facility] Neutrophils Absolute 4.52 1.50 - 7.00 K/mcL LAB HEMETOLOGY METHOD 02/11/2025 5:[address] [facility] Lymphocytes Absolute 3.06 1.00 - 5.00 K/mcL LAB HEMETOLOGY METHOD 02/11/2025 5:[address] [facility] Monocytes Absolute 0.49 0.20 - 1.00 K/mcL LAB HEMETOLOGY METHOD 02/11/2025 5:[address] [facility] Eosinophils Absolute 0.61(H) 0.00 - 0.50 K/mcL LAB HEMETOLOGY METHOD 02/11/2025 5:[address] [facility] Basophils Absolute 0.04 0.00 - 0.20 K/mcL LAB HEMETOLOGY METHOD 02/11/2025 5:[address] [facility] Immature Granulocytes Absolute 0.04(H) 0.00 - 0.03 K/mcL LAB HEMETOLOGY METHOD 02/11/2025 5:[address] [facility] Blood Venous blood specimen / Unknown Venipuncture / Unknown 02/11/2025 4:37 PM EDT 02/11/2025 4:51 PM EDT Tahir Veronica Burns MD LAB BLOOD ORDERABLES Final Resu lt [facility] [address] [place] [address], * Magnesium (02/11/2025 4:37 PM EDT) [facility] Magnesium 2.0 1.9 - 2.6 mg/dL LAB CHEMISTRY METHOD 02/11/2025 5:20 PM EDT [facility] Blood Venous blood specimen / Unknown Venipuncture / Unknown 02/11/2025 4:37 PM EDT 02/11/2025 4:51 PM EDT Tahir Burns MD LAB BLOOD ORDERABLES Final Resu lt Performing Organization Address [facility] de Phone Number [facility] [address] [place] [address], * Lipase (02/11/2025 4:37 PM EDT) [facility] Lipase 18 13 - 75 unit/L LAB CHEMISTRY METHOD 02/11/2025 5:20 PM EDT [facility] Blood Venous blood specimen / Unknown Venipuncture / Unknown 02/11/2025 4:37 PM EDT 02/11/2025 4:51 PM EDT Pepe MIKE LAB BLOOD ORDERABLES Final R esult Performing Organization Address [facility] Co de Phone Number [facility] [address] [place] [address], [place] [phone] * (ABNORMAL) Comprehensive Metabolic Panel (CMP) (02/11/2025 4:37 PM EDT) [facility] Sodium 137 133 - 145 mmol/L LAB CHEMISTRY METHOD 02/11/2025 5:20 PM EDT [facility] Potassium 3.7 3.5 - 5.5 mmol/L LAB CHEMISTRY METHOD 02/11/2025 5:[address] [facility] Chloride 104 96 - 110 mmol/L LAB CHEMISTRY METHOD 02/11/2025 5:[address] [facility] CO2 26 21 - 32 mmol/L LAB CHEMISTRY METHOD 02/11/2025 5:[address] [facility] Anion Gap 7 3 - 11 LAB CHEMISTRY METHOD 02/11/2025 5:[address] [facility] Glucose 95 70 - 100 mg/dL LAB CHEMISTRY METHOD 02/11/2025 5:[address] [facility] BUN 47(H) 5 - 25 mg/dL LAB CHEMISTRY METHOD 02/11/2025 5:[address] [facility] Creatinine 1.72(H) 0.50 - 1.10 mg/dL LAB CHEMISTRY METHOD 02/11/2025 5:[address] [facility] eGFR 36(L) >=60 mL/min/1. 73m2 LAB CHEMISTRY METHOD 02/11/2025 5:[address] [facility] Comment:Calculation based on the??Chronic Kidney Disease Epidemiology Collaboration (CKD-EPI) equation refit??without adjustment for race. BUN/Creatinine Ratio 27.3 LAB CHEMISTRY METHOD 02/11/2025 5:[address] [facility] Calcium 9.4 8.5 - 10.5 mg/dL LAB CHEMISTRY METHOD 02/11/2025 5:[address] [facility] AST (SGOT) 22 10 - 42 unit/L LAB CHEMISTRY METHOD 02/11/2025 5:[address] [facility] ALT (SGPT) 28 10 - 60 unit/L LAB CHEMISTRY METHOD 02/11/2025 5:[address] [facility] Alkaline Phosphatase 118 42 - 121 unit/L LAB CHEMISTRY METHOD 02/11/2025 5:[address] [facility] Total Protein 7.4 6.0 - 8.0 g/dL LAB CHEMISTRY METHOD 02/11/2025 5:20 PM EDT [facility] Albumin 3.7 3.2 - 5.0 g/dL LAB CHEMISTRY METHOD 02/11/2025 5:20 PM EDT [facility] Total Bilirubin 0.3 0.0 - 1.4 mg/dL LAB CHEMISTRY METHOD 02/11/2025 5:20 PM EDT [facility] Blood Venous blood specimen / Unknown Venipuncture / Unknown 02/11/2025 4:37 PM EDT 02/11/2025 4:51 PM EDT Pepe MIKE LAB BLOOD ORDERABLES Final R esult [facility] [address] [place] [address], [place] [phone] * HIV Screening (08/24/2017) Pathologist [facility] HIV Screening abstracted [facility] Provider HEALTH MAINTENANCE Final Result * Hepatitis C Screening (08/24/2017) Pathologist [facility] [place] Hepatitis C Screening abstracted [facility] Provider HEALTH MAINTENANCE Final Result * Pap Smear (07/17/2015) Pathologist [facility] [place] Pap smear no interpretation , abstracted [facility] Provider HEALTH MAINTENANCE Final Result from Last 3 Months or Most Recently Relevant to Health Maintenance Insurance MEDICAID - [place] Care Teams Online Content Editor Relationship Specialty Start Date End Date Yolie Desir MD [address] [place] [phone] PCP - General 07/25/24
--- OUTSIDE RECORDS SUMMARY | 2025-03-15 13:40 | XMS_ITS | Encounter Summary ---
Author Organization [employer] Address [address] [place] [address] Care Team Providers Care Pharmacy Account Director Name Role Phone Yolie Desir MD Primary Care Provider + Reason for Visit * Reason Comments Med Refill Encounter Details Date Type Department Care Team ([facility] st Contact Info) Description 11/14/2023 Refill [facility] [address] [place] [phone] Preet Blackwood MD [address] [place], [place] [phone] Social History Tobacco Use Types Packs/Day Years [...] documented as of this encounter Care Teams Pharmacy Account Director Relationship Specialty Start Date End Date Yolie Desir MD [address] [place] [phone] PCP - General Family Medicine 10/26/19 documented as of this encounter
--- OUTSIDE RECORDS SUMMARY | 2025-03-15 13:41 | XMS_ITS | Clinical Summary ---
Author Organization [facility] Address [address] [place] [address] Phone Care Team Providers Care Motor Equipment Sergeant Name Role Phone Yolie Desir MD Primary Care Provider [phone] Allergies Active Allergy Reactions Criticality Noted Date [...] of knee region 07/23/2015 01/05/20 23 Immunizations Immunization Administration Dates Next Due Influenza, Quadrivalent, Preservative [...] 10/20/2022, 02/03/2021, Additional history exists Pneumococcal Vaccine: 50+ Years Completed 02/10/2023, 09/19/2017, 12/10/2015, Additional history exists Pneumococcal Vaccine: Peds ( 0 to 5 Years) and At-Risk Patients (6 to 49 Years) Discontinued 02/10/2023, 09/19/2017, 12/10/2015, Additional history exists [place] Care Teams Motor Equipment Sergeant Relationship Specialty Start Date End Date Yolie Desir MD [address] [place] [address] PCP - General Internal Medicine 04/22/21
--- OUTSIDE RECORDS SUMMARY | 2025-03-15 13:41 | XMS_ITS | Encounter Summary ---
Author Organization [employer] Address [address] [place] [address] Care Team Providers Care Epidemiology Investigator Name Role Phone Yolie Desir MD Primary Care Provider + Encounter Details Date Type Department Care Team ([facility] st Contact Info) Description 12/31/2024 Telephone [facility] MEDICINE [address] [place], [place] [phone] Yolie Desir MD [address] [place], [place] [phone] Social History Tobacco Use Types Packs/Day Years [...] documented as of this encounter Care Teams Epidemiology Investigator Relationship Specialty Start Date End Date Yolie Desir MD [address] [place] [phone] PCP - General Family Medicine 10/26/19 documented as of this encounter
--- OUTSIDE RECORDS SUMMARY | 2025-03-15 13:41 | XMS_ITS | Encounter Summary ---
Author Organization [facility] Address [address] [place] [address] Care Team Providers Care Senior Corporate Recruiter Name Role Phone Yolie Desir MD Primary Care Provider + Reason for Visit * Reason Onset Date Comments Prior Authorization 10/28/2022 Encounter Details Date Type Department Care Team ([facility] st Contact Info) Description 10/28/2022 Telephone [facility] MEDICINE [address] [place], [place] [phone] Yolie Desir MD [address] [place], [place] [phone] Prior Authorization Social History Tobacco Use Types [...] on filedocumented in this encounter Care Teams Senior Corporate Recruiter Relationship Specialty Start Date End Date Yolie Desir MD [address] [place] [address] PCP - General Family Medicine 10/26/19 documented as of this encounter
--- OUTSIDE RECORDS SUMMARY | 2025-03-15 13:41 | XMS_ITS | Encounter Summary ---
Author Organization [employer] Address [address] [place] [address] Care Team Providers Care Fruit Trimmer Name Role Phone Yolie Desir MD Primary Care Provider + Encounter Details Date Type Department Care Team (Late st Contact Info) Description 01/25/2023 Abstract [facility] MEDICINE [address] [place], [place] [phone] Yolie Desir MD [address] [place] [address] Social History Tobacco Use Types Packs/Day Years [...] on filedocumented in this encounter Care Teams Fruit Trimmer Relationship Specialty Start Date End Date Yolie Desir MD [address] [place], [place] [phone] PCP - General Family Medicine 10/26/19 documented as of this encounter
--- OUTSIDE RECORDS SUMMARY | 2025-03-15 13:41 | XMS_ITS | Encounter Summary ---
Author Organization [employer] Address [address] [place] [address] Care Team Providers Care Casting Wheel Operator Name Role Phone Yolie Desir MD Primary Care Provider + Encounter Details Date Type Department Care Team (Late st Contact Info) Description 01/25/2023 Abstract [facility] MEDICINE [address] [place], [place] [phone] Yolie Desir MD [address] [place] [address] Social History Tobacco Use Types Packs/Day Years [...] on filedocumented in this encounter Care Teams Casting Wheel Operator Relationship Specialty Start Date End Date Yolie Desir MD [address] [place], [place] [phone] PCP - General Family Medicine 10/26/19 documented as of this encounter
== END 2025-03-15 13:46 | disposition home or self-care (01) ==
LOC: HO.HPS 12:58
PROVIDERS: PCP Internal Medicine; Visit Provider Internal Medicine Pulmonary Disease
DX: J45.50 Severe persistent asthma, uncomplicated (principal); Z91.09 Other allergy status, other than to drugs and biological substances
CPT/HCPCS: 99214

== ENCOUNTER → 2025-03-15 12:57 | Outpatient (BNVA) | payer MEDICAID, SELFPAY | PROVIDERS: PCP Internal Medicine; Visit Provider Internal Medicine Pulmonary Disease | DX: J45.50 Severe persistent asthma, uncomplicated (principal); G47.33 Obstructive sleep apnea (adult) (pediatric); Z99.89 Dependence on other enabling machines and devices; Z91.09 Other allergy status, other than to drugs and biological substances | CPT/HCPCS: 99212 ==

== ENCOUNTER 2025-03-21 09:34 | Outpatient (REF) | payer MEDICAID, SELFPAY ==
--- OUTSIDE RECORDS SUMMARY | 2025-03-21 10:31 | XMS_ITS | Encounter Summary ---
Author Organization [employer] Address [address] [place] [address] Care Team Providers Care Gut Snatcher Name Role Phone Yolie Desir MD Primary Care Provider + Encounter Details Date Type Department Care Team (Late st Contact Info) Description 01/25/2023 Abstract [facility] MEDICINE [address] [place], [place] [phone] Yolie Desir MD [address] [place] [address] Social History Tobacco Use Types Packs/Day Years [...] on filedocumented in this encounter Care Teams Gut Snatcher Relationship Specialty Start Date End Date Yolie Desir MD [address] [place], [place] [phone] PCP - General Family Medicine 10/26/19 documented as of this encounter
--- OUTSIDE RECORDS SUMMARY | 2025-03-21 10:31 | XMS_ITS | Encounter Summary ---
Author Organization [employer] Address [address] [place] [address] Care Team Providers Care Cook Tortilla Name Role Phone Yolie Desir MD Primary Care Provider + Reason for Visit * Reason Comments Med Refill Encounter Details Date Type Department Care Team ([facility] st Contact Info) Description 06/15/2024 Refill [facility] [address] [place], [place] [phone] Yolie Desir MD [address] [place] [address] Diabetic nephropathy associated with type 2 diabetes mellitus ([facility]) Social History Tobacco Use Types [...] nephropathy associated with type 2 diabetes mellitus ([facility]) documented in this encounter Additional Health Concerns Assessment Noted Time PHQ-9 Depression Total Score: 8 02/11/20 23 9:24 AM EDT documented as of this encounter Care Teams Cook Tortilla Relationship Specialty Start Date End Date Yolie Desir MD [address] [place] [address] PCP - General Family Medicine 10/26/19 documented as of this encounter
--- OUTSIDE RECORDS SUMMARY | 2025-03-21 10:31 | XMS_ITS | Clinical Summary ---
Author Organization [employer] Address [address] [place] [address] Care Team Providers Care Cable Worker Helper Name Role Phone Boo Ashby MD Primary [...] EVERY 10 DAYS Active Continuous Blood Gluc Tire Mounter ([employer]ex[employer] G6 bench grinder) device USE DIRECTED Active carvedilol (Coreg) 6.25 [...] 3 times daily. 15 mL 1 025 Active albuterol (2.5 MG/3ML) 0.083% nebulizer solutionIndicat [...] MOUTH EVERY MORNING 90 tablet 025 Active pantoprazole (ProtoNix) 40 MG EC tabletIndicatio ns:Epigastric pain TAKE 1 TABLET BY MOUTH EVERY MORNING 90 tablet 024 2024 Discontinued gabapentin (Neurontin) 100 MG capsuleIndicati ons:Diabetic nephropathy associated with type 2 diabetes mellitus (CMS/HCC) TAKE 2 CAPSULES BY MOUTH THREE TIMES DAILY IN THE MORNING, EVENING AND BEDTIME 180 capsule 025 2024 Discontinued Active Problems Problem Noted Date [...] Omnipod use. Continue to follow up with [employer] and change of medications. FU in 3 [...] to increase water intake and fu with PSYCHIATRIC SECRETARY in June for pelvic exam She will fu this afternoon with , tester armature or fields Carpal tunnel syndrome of right wrist 01/23/2024 Overview (01/23/2024): [place] [facility] [place]23= Median nerve compression at wrist [...] bx 12/[address] Maxwell FU with PSYCHIATRIC SECRETARY on 06/2024 Numbness and tingling of right [...] and will order x ray if needed Coal Cutting Machine Operator appt on Cervical high risk HPV [...] to check finger stick and fu with tester armature or fields. I told pt to call tester armature or fields office to fu on prescription of CGM [...] PM EST): Significantly improving, fu with [facility] wound clinic I will order supplies to [...] AND PLAN FOR TYPE 2 DIABETES MELLITUS ([facility]) WRITTEN ON 11/04/2023 2:41 PM BY BOO ASHBY MD Uncontrolled Unclear if insulin pump is working properly Told patient to call endocrinology MARYLOU to see if pump can be replaced sooner vs. Move temporarily to sc Lantus + Humalog Assessment & Plan (01/08/2025 2:18 PM EST): >>ASSESSMENT AND PLAN FOR TYPE 2 DIABETES MELLITUS ([facility]) WRITTEN ON 08/02/2024 3:15 PM BY BOO ASHBY MD Controlled, last A1c on 01/2024 was at goal. I will do A1c at upcoming regular visit Patient had episode of hypoglycemia today, probably due to miscalculation of insulin dose adjustment. She will fu on Tuesday with egg processing supervisor. She received glucose load today and BS [...] I congratulated her for reaching out to tester armature or fields and compliance w/ medications I gave her information about diabetic diet, she's asking for more 1-1 extruding press operator coaching, so I gave her information about wt reduction programs in the area Continue close fu w/ tester armature or fields insulin pump + Ozempic Pt had intraocular [...] asthma, CHF vs other. Informed about the [facility] and visit ED, she request an [...] Type Department Care Team Description 02/27/2025 Refill [facility] [address] [place] [address] Boo Ashby MD Diabetic nephropathy associated with type 2 diabetes mellitus ([facility]/HCC); Epigastric pain 02/18/2025 1:30 PM EDT Office Visit [facility] [address] [place] [address] Xuan Lozada NP Acute cough (Primary Dx); Mild intermittent asthma without complication; Tiredness 02/18/2025 Orders Only GENERIC EXTERNAL DATA DEPARTMENT Provider, Generic External Data 02/18/2025 Travel 02/14/2025 Refill [facility] [address] [place] [address] Boo Ashby MD 02/13/2025 Telephone [facility] [address] [place] [address] Boo Ashby MD ER Follow-up 02/11/2025 1:20 PM EDT Office Visit [facility] [address] [place] [address] Xuan Lozada NP Dizziness (Primary Dx); Double vision; Cough in adult patient 02/08/2025 Refill [facility] [address] [place] [address] Boo Ashby MD 02/06/2025 Telephone [facility] [address] [place] [address] Boo Ashby MD novolog 02/05/2025 Telephone [facility] [address] [place] [address] Boo Ashby MD Vicenta recall 02/01/2025 Population Health Risk Score [facility] ([facility]) Department [address] [place] [phone] Provider, Population Health Generic 01/29/2025 Refill [facility] [address] [place] [address] Boo Ashby MD Diabetic nephropathy associated with type 2 diabetes mellitus (CMS/HCC) 01/08/2025 2:00 PM EST Office Visit [facility] [address] [place] [phone] Boo Ashby MD Diabetes mellitus type 2 with peripheral artery disease (CMS/HCC) (Primary Dx); Severe recurrent major depression without psychotic features (CMS/HCC); Mild intermittent asthma with acute exacerbation; Class 1 obesity due to excess calories with serious comorbidity and body mass index (BMI) of 31.0 to 31.9 in adult; Exercise counseling; Dietary counseling 01/08/2025 Travel 01/04/2025 Telephone [facility] [address] [place] [phone] Boo Ashby MD Chart prep 12/31/[address] [phone] Boo Ashby MD 12/31/[address] [address] Boo Ashby MD Diabetic nephropathy associated with type 2 diabetes mellitus (CMS/HCC) 12/25/2024 Patient Outreach [address] [address] Boo Ashby MD Pre-visit Planning (SDOH screening [...] 2:03 PM EDT) Creatinine, Urine 99.31 mg/dL [facility] Protein, Total, Random Urine <7 <12 mg/dL [facility] Protein/Creatin ine Ratio, Ur TNP <0.2 [facility] Comment:Unable to calculate urine protein creatinine ratio due tolow creatinine or protein result. 02/18/2025 2:03 PM EDT 02/18/2025 4:16 PM EDT Generic External Data Provider LAB URINE ORDERAB LES Final Result Performing Organization Address [facility]/ZIP Co de Phone Number [facility] [address] [place] [phone] * Vitamin D, 25-Hydroxy, Total, Immunoassay (02/18/2025 2:03 PM EDT) Vitamin D 25-OH Total 36.8 >30 ng/mL [facility] Comment: Health Based Reference Values*< 20 ??ng/mL ??Fiyutanhd80-20 ng/mL ??Insufficient> 30 ??ng/mL ??Sufficient*Luis Felipe WATSON. [...] ORDERAB LES Final Result Performing Organization Address [facility]/ZIP Co de Phone Number [facility] [address] [place] [phone] * TSH W/Reflex to FT4 (02/18/2025 2:03 PM EDT) Pathologist [facility] TSH reflex Free T4 2.28 0.32 - 4.0 uIU/mL [facility] Blood Venous blood specimen / Unknown 02/18/2025 2:03 PM EDT 02/18/2025 4:12 PM EDT Xuan Lozada PACKAGE CAR DRIVER LAB BLOOD ORDERABLES Final Resu lt Performing Organization Address City/[facility]/ZIP Co de Phone Number [facility] [address] [place] [address] [phone] * Creatinine, Serum (02/18/2025 2:03 PM EDT) Pathologist [facility] Creatinine, Serum 0.93 0.5 - 1.4 mg/dL [facility] Estimated Glomerular Filt Rate >60 [facility] Comment:Chronic Kidney Disea se: Estimated GFR < 60 mL/min/1.52p1Fpbhtq Kidney Disease: Estimated GFR < 15 mL/min/1.73m2 02/18/2025 2:03 PM EDT 02/18/2025 4:12 PM EDT Generic External Data Provider LAB BLOOD ORDERAB LES Final Result Performing Organization Address City/[facility] Co de Phone Number [facility] [address] [place] [phone] * (ABNORMAL) CBC auto differential (02/18/2025 2:03 PM EDT) Pathologist [facility] White Blood Count 8.4 4.8 - 10.8 X10*3/uL [facility] Red Blood Count 3.89(L) 4.20 - 5.50 X10*6/uL [facility] Hemoglobin 11.8(L) 12.0 - 16.0 g/dl [facility] Hematocrit 35.5(L) 37.0 - 47.0 % [facility] Mean Corpuscular Volume 91.3 80.0 - 98.0 fL [facility] Mean Corpuscular Hemoglobin 30.3 27.0 - 33.0 pg [facility] Mean Corpuscular HGB Conc 33.2 31.0 - 35.0 g/dl [facility] Red Cell Distribution Width 13.3 11.0 - 16.0 % [facility] Platelet Count 264 160 - 400 X10*3/uL [facility] Mean Platelet Volume 11.5 9.4 - 12.3 fL [facility] Neutrophils Percent Auto 60.5 45 - 73 % [facility] Imm Gran Pct Auto 0.2 0.0 - 0.4 % [facility] Lymphocytes Percent Auto 25.0 20 - 40 % [facility] Monocytes Percent Auto 8.0 2 - 11 % [facility] Eosinophils Percent Auto 6.1(H) 0 - 4 % [facility] Basophils Percent Auto 0.2 0 - 2 % [facility] NRBC Pct Auto 0.0 0.0 - 0.2 /100WBC [facility] Neutrophils Absolute Auto 5.1 2.0 - 8.3 x10*3/uL [facility] Imm Gran Abs Auto 0.02 0.00 - 0.03 X10*3/uL [facility] Lymphocytes Absolute Auto 2.1 1.2 - 4.9 X10*3/uL [facility] Monocytes Absolute Auto 0.7 0.1 - 1.2 X10*3/uL [facility] Eosinophils Absolute Auto 0.5(H) 0.0 - 0.4 X10*3/uL [facility] Basophils Absolute Auto 0.0 0.0 - 0.2 X10*3/uL [facility] NRBC Abs Auto 0.000 0.0 - 0.012 X10*3/uL [facility] 02/18/2025 2:03 PM EDT 02/18/2025 4:12 PM EDT us Generic External Data Provider LAB BLOOD ORDERAB LES Final Result [facility] [address] [place] [phone] * (ABNORMAL) BUN (Blood Urea Nitrogen) (02/18/2025 2:03 PM EDT) Urea Nitrogen (BUN) 21(H) 9 - 16 mg/dL [facility] 02/18/2025 2:03 PM EDT 02/18/2025 4:12 PM EDT Generic External Data Provider LAB BLOOD ORDERAB LES Final Result Performing Organization Address [facility] Co de Phone Number [facility] [address] [place] [phone] * PTH, Intact Without Calcium (02/18/2025 2:03 PM EDT) Parathyroid Hormone, Intact 39.6 8.7 - 77.1 pg/mL [facility] 02/18/2025 2:03 PM EDT 02/18/2025 4:12 PM EDT Generic External Data Provider LAB BLOOD ORDERAB LES Final Result Performing Organization Address [facility] Co de Phone Number [facility] [address] [place] [phone] * (ABNORMAL) Calcium (02/18/2025 2:03 PM EDT) Calcium 10.8(H) 8.4 - 10.2 mg/dL [facility] 02/18/2025 2:03 PM EDT 02/18/2025 4:12 PM EDT Generic External Data Provider LAB BLOOD ORDERAB LES Final Result Performing Organization Address [facility] Co de Phone Number [facility] [address] [place] [phone] * (ABNORMAL) Electrolyte Panel (02/18/2025 2:03 PM EDT) [facility] Sodium 140 135 - 145 mmol/L [facility] Potassium 4.3 3.3 - 5.1 mmol/L [facility] Chloride 106 96 - 108 mmol/L [facility] Carbon Dioxide 27 22 - 29 mmol/L [facility] Anion Gap 11(L) 12 - 20 [facility] 02/18/2025 2:03 PM EDT 02/18/2025 4:12 PM EDT Generic External Data Provider LAB BLOOD ORDERAB LES Final Result Performing Organization Address [facility]/ZIP Co de Phone Number [facility] [address] [place] [phone] * Influenza B (ID NOW Rapid Molecular) (02/11/2025 1:46 PM EDT) [facility] Influenza B Negative Negative, Indeterminate [facility] Swab 02/11/2025 1:46 PM EDT Xuan Lozada NP POINT OF CARE TEST ENTER/EDIT O RDERABLES Final Result Performing Organization Address [facility] Co de Phone Number [facility] [address] [place] [phone] * Influenza A (ID NOW Rapid Molecular) (02/11/2025 1:46 PM EDT) [facility] Influenza A Negative Negative, Indeterminate [facility] Swab 02/11/2025 1:46 PM EDT Xuan Lozada PACKAGE CAR DRIVER POINT OF CARE TEST ENTER/EDIT O RDERABLES Final Result Performing Organization Address [facility] Co de Phone Number [facility] [address] [place] [phone] * POCT Rapid COVID Ag (02/11/2025 1:44 PM EDT) [facility] Rapid COVID Ag Negative Swab 02/11/2025 1:44 PM EDT Xuan Lozada NP POINT OF CARE TEST ENTER/EDIT O RDERABLES Final Result * (ABNORMAL) POCT HGB A1C (01/08/2025 2:16 PM EST) Pathologist [facility] Hemoglobin A1C 7.5(A) 4.0 - 6.0 % QC Media Lot # [id number] Lot# Expiration Date ,194 Blood 01/08/2025 2:16 PM EST Boo Ashby MD POINT OF CARE TEST ENTER /EDIT ORDERABLES Final Result * POCT Glucose (01/08/2025 2:14 PM EST) Pathologist [facility] Glucose Blood, POC 154 60 - 200 mg/dL [employer] Media Lot # [id number] Lot# Expiration Date [id number] Blood Capillary blood specimen / Unknown 01/08/2025 2:14 PM EST Boo Ashby MD POINT OF CARE TEST ENTER /EDIT ORDERABLES Final Result * (ABNORMAL) Lipid Panel, Standard (06/25/2024 10:51 AM EDT) Pathologist [facility] Triglycerides 186(H) <150 mg/dL [facility] Comment:Desirable Triglyceri de: less than 150 mg/dLBorderline High Triglyceride 150-199 mg/dLHigh Triglyceride: 200-499 mg/dLVery High Triglyceride: greater than or equal to 5OO mg/dL Cholesterol 246(H) <200 mg/dL [facility] Comment:Desirable Cholestero l: less than 200 mg/dLBorderline High Cholesterol: 200-239 mg/dLHigh Cholesterol: greater than 239 mg/dL LDL Cholesterol Calculated 163(H) <100 mg/dL [facility] Comment:Desirable LDL: less than 100 mg/dLNear Optimal/Above Optimal LDL: 110- 129 mg/dLBorderline High LDL: 130-159 mg/dLHigh LDL: 160-189 mg/dLVery High LDL: greater than or equal to 190 mg/dL HDL Cholesterol 46 >40 mg/dL [facility] Comment:Desirable HDL: great er than 40 mg/dL Note: This HDL assay may give artificially low results in patients with liver disease. 06/25/2024 10:5 1 AM EDT 06/25/2024 10:51 AM EDT us Generic External Data Provider LAB BLOOD ORDERAB LES Final Result [facility] [address] [place] [phone] * BI Mammogram Screening Tomosynthesis Bilateral (04/03/2024 3:27 PM EDT) Anatomical Region Laterality Modality Breast Bilateral Mammography 04/03/2024 3:27 PM EDT Narrative 05/04/2024 5:45 AM EDT ? [facility] [place] ? [address] ?[place] [address] ? Mammography Report ? Signed ? Patient: Melissa Barnett ?MR#: ?? [id number] ? : 1975 ?Acct:[id number] ? Age/Sex: 48 / F ?ADM Date: 05/14/24 ? Loc: HO.MAMMO ? Attending Dr: Boo Ashby MD ? Ordering Physician: Boo Ashby MD ?Results: 1Ne ?? gative ? Date of Service: 04/03/24 ?Follow Up: 1 Year From Orig ?? inal Mammogram ? Procedure(s): MM tomosynthesis screening BI ?? Accession Number(s): [id number] ? cc: Boo Ashby MD ? EXAMINATION: [...] in OV> ? 05/04/24 0542 ? DD/ 152 ? TD/TT: ? Power Lineman: ? Procedure Note Rina, Geovanny - 05/04/2024 [facility] [address] [place] [address] Dr. Singh, PRETTY [address] Mammography Report Signed Patient: Melissa BarnettMR#: [id number] : 1975Acct:[id number] Age/Sex: 48 / FADM Date: 04/03/24 Loc: MAMMAmi Attending Dr: Boo Ashby MD Ordering Physician: Boo Ashby MDResults: 1Ne gative Date of Service: 04/03/24Follow Up: 1 Year From Orig ina Mammogram Procedure(s): MM tomosynthesis screening BI Accession Number(s): [id number] cc: Boo Ashby MD EXAMINATION: MM SCREENING [...] in OV> 05/04/24 0542 DD/ 1527 TD/TT: Power Lineman: Boo Ashby MD [facility] BI PROCEDURES Edited Result - Final * (ABNORMAL) HPV Genotypes 16,18/45 (03/15/2023 11:10 AM EDT) HPV 16 RNA NOT DETECTED NOT DETECTED [facility] [place] [facility] HPV 18/45 RNA DETECTED(A) NOT DETECTED [facility] [place] [facility] Comment: Methodology: Representative Mediated Amplification Cervical sources are required for HPV testing. If a vaginal source from a patient who has had a total hysterectomy with removal of cervix was submitted, please contact the testing laboratory for alternative testing options. 03/15/2023 11:1 0 AM EDT 03/16/2023 6:23 AM EDT Boo Ashby MD LAB CYTOLOGY ORDERABLES Final Result [facility] [address], [place] [address] [facility] [address] [place] [address] * Pap Smear (03/15/2023) HM Pap smear NIL HPV+ Historical Provider HEALTH MAINTENANCE Final Result from Last 3 Months or Most Recently Relevant to Health Maintenance Insurance [address] [place], [place] [address]App Partner C3 Care Teams Cable Worker Helper Relationship Specialty Start Date End Date Boo Ashby MD [address] [place] [phone] PCP - General Family Medicine 10/26/19
--- OUTSIDE RECORDS SUMMARY | 2025-03-21 10:31 | XMS_ITS | Encounter Summary ---
Author Organization [employer] Address [address] [place] [address] Care Team Providers Care Senior Principal Software Engineer Name Role Phone Yolie Desir MD Primary Care Provider + Encounter Details Date Type Department Care Team (Late st Contact Info) Description 01/25/2023 Abstract [facility] [address] [place], [place] [phone] Yolie Desir MD [address] [place] [address] Social History Tobacco Use Types Packs/Day Years [...] filedocumented in this encounter Care Teams Senior Principal Software Engineer Relationship Specialty Start Date End Date Yolie Desir MD [address] [place], [place] [phone] PCP - General Family Medicine 10/26/19 documented as of this encounter
--- OUTSIDE RECORDS SUMMARY | 2025-03-21 10:31 | XMS_ITS | Encounter Summary ---
Author Organization [employer] Address [address] [place] [address] Care Team Providers Care Putter In Name Role Phone Yolie Desir MD Primary Care Provider + Reason for Visit * Reason Comments Med Refill Encounter Details Date Type Department Care Team ([facility] st Contact Info) Description 12/29/2023 Refill [facility] [address] [place], [place] [phone] Yolie Desir MD [address] [place], [place] [phone] Diabetic nephropathy associated with type 2 diabetes [...] with type 2 diabetes mellitus (CMS/[facility]) documented in this encounter Additional Health Concerns Assessment Noted Time PHQ-9 Depression Total Score: 8 02/11/20 23 9:24 AM EDT documented as of this encounter Care Teams Putter In Relationship Specialty Start Date End Date Yolie Desir MD [address] [place] [phone] PCP - General Family Medicine 10/26/19 documented as of this encounter
--- OUTSIDE RECORDS SUMMARY | 2025-03-21 10:31 | XMS_ITS | Encounter Summary ---
Author Organization [employer] Address [address] [place] [address] Care Team Providers Care Engine Assembly Supervisor Name Role Phone Yolie Desir MD Primary Care Provider + Encounter Details Date Type Department Care Team ([facility] st Contact Info) Description 12/31/2024 Telephone [facility] [address] [place], [place] [phone] Yolie Desir MD [address] [place], [place] [phone] Social History Tobacco Use Types Packs/Day Years [...] documented as of this encounter Care Teams Engine Assembly Supervisor Relationship Specialty Start Date End Date Yolie Desir MD [address] [place] [phone] PCP - General Family Medicine 10/26/19 documented as of this encounter
--- OUTSIDE RECORDS SUMMARY | 2025-03-21 10:31 | XMS_ITS | Encounter Summary ---
Author Organization [facility] Address [address] [place] [address] Care Team Providers Care Labor And Employment Paralegal Name Role Phone Yolie Desir MD Primary Care Provider + Reason for Visit * Reason Onset Date Comments Prior Authorization 10/28/2022 Encounter Details Date Type Department Care Team ([facility] st Contact Info) Description 10/28/2022 Telephone [facility] [address] [place], [place] [phone] Yolie Desir MD [address] [place], [place] [phone] Prior Authorization Social History Tobacco Use Types [...] on filedocumented in this encounter Care Teams Labor And Employment Paralegal Relationship Specialty Start Date End Date Yolie Desir MD [address] [place] [address] PCP - General Family Medicine 10/26/19 documented as of this encounter
--- OUTSIDE RECORDS SUMMARY | 2025-03-21 10:31 | XMS_ITS | Clinical Summary ---
Author Organization [facility] Address [address] [place] [address] Phone Care Team Providers Care Medical Billing Assistant Name Role Phone Yolie Desir MD Primary Care Provider [phone] Allergies Active Allergy Reactions Criticality Noted Date [...] 09/19/2017, 12/10/2015, Additional [place] Care Teams Medical Billing Assistant Relationship Specialty Start Date End Date Yolie Desir MD [address] [place] [address] PCP - General Internal Medicine 04/22/21
--- OUTSIDE RECORDS SUMMARY | 2025-03-21 10:31 | XMS_ITS | Encounter Summary ---
Author Organization [employer] Address [address] [place] [address] Care Team Providers Care Passport Support Associate Name Role Phone Yolie Desir MD Primary Care Provider + Reason for Visit * Reason Comments Med Refill Encounter Details Date Type Department Care Team ([facility] st Contact Info) Description 11/14/2023 Refill [facility] [address] [place] [phone] Preet Blackwood MD [address] [place], [place] [phone] Social History Tobacco Use Types Packs/Day Years [...] documented as of this encounter Care Teams Passport Support Associate Relationship Specialty Start Date End Date Yolie Desir MD [address] [place] [phone] PCP - General Family Medicine 10/26/19 documented as of this encounter
--- OUTSIDE RECORDS SUMMARY | 2025-03-21 10:31 | XMS_ITS | Clinical Summary ---
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 ([facility] [place] V24, [facility] [place] [facility] V28) 09/28/2024 Diabetic ulcer of left midfo ot associated with type 2 diabetes mellitus, with fat layer exposed ([facility] [place] V24, [facility] V28) 09/28/2024 Encounters Date Type Department Care Team Description 02/11/2025 4:00 PM EDT - 02/11/2025 9:49 PM EDT Emergency [facility] Emergency [address] [place] [phone] Dehydration (Primary Dx); Mild intermittent asthma without complication Discharge Disposition: Home or Self Care 01/09/2025 3:30 PM EST Office Visit Orthopedic Surgery [facility] [address] [phone] Dusty Gonzalez, DPM Xerosis of skin (Primary Dx); Ulcer of toe of left foot, with fat layer exposed ([facility] [place] V24, [facility] [place] [facility] V28); Metatarsalgia of both feet; Type II diabetes mellitus with peripheral circulatory disorder ([facility] [place] V24, [facility] V28); Diabetic mononeuropathy simplex ([facility] [place] V24, [facility] V28) 12/26/2024 3:00 PM EST Office Visit Orthopedic Surgery [facility] [address] [phone] Dusty Gonzalez, DPM Ulcer of toe of right foot, with fat layer exposed ([facility] [place] V24, [facility] [place] [facility] V28) (Primary Dx); Dermatophytosis of nail; Pain in toe of right foot; Pain in toe of left foot; Diabetic mononeuropathy simplex ([facility] [place] V24, [facility] [place] V28); Type II diabetes mellitus with peripheral circulatory disorder ([facility] [place] V24, [facility] [place] [facility] V28); Metatarsalgia of both feet; Ulcer of toe of left foot, limited to breakdown of skin ([facility] [place] V24, [facility] [place] [facility] V28) from Last 3 Months Medical History Medical History Date Comments Diabetes mellitus ([facility] [place] V24, [facility] [place] [facility] V28) Social History Tobacco [...] Upcoming Encounters Date Type Department Care Team ([facility] st Contact Info) Description 03/25/2025 3:30 PM EDT Office Visit Orthopedic Surgery - [place] [address] [phone] Dusty Gonzalez, DPM [address] [address] Health Maintenance Due Date Last Done Comments [...] No active pulmonary process identified. Telerad RASHID ([id number]) -------- FINAL REPORT -------- Dictated By: Tawanna Knott Dictated Date: 02/12/2025 09:09 ET Assigned Physician: Tawanna Knott Reviewed and Electronically Signed By: Tawanna Knott Signed Date: 02/12/2025 09:10 ET Workstation ID: [id number] Transcribed By: Self Edit Transcribed Date: 02/12/2025 [...] No active pulmonary process identified. Telerad RASHID ([id number]) -------- FINAL REPORT -------- Dictated By: Tawanna Knott Dictated Date: 02/12/2025 09:09 ET Assigned Physician: Tawanna Knott Reviewed and Electronically Signed By: Tawanna Knott Signed Date: 02/12/2025 09:10 ET Workstation ID: [id number] Transcribed By: Self Edit Transcribed Date: 02/12/2025 09:09 ET us Pepe MIKE IMG XR PROCEDURES Final Resu lt * (ABNORMAL) Urinalysis with reflex microscopic (02/11/2025 7:54 PM EDT) Specific [place] Urine 1.013 1.003 - 1.030 LAB URINALYSIS - AUTOMATED METHOD [facility] pH, Urine 6.0 5.0 - 8.0 pH LAB URINALYSIS - AUTOMATED METHOD 02/11/2025 8:40 PM [facility] Leukocytes, Urine Negative Negative LAB URINALYSIS - AUTOMATED METHOD 02/11/2025 8:40 PM [facility] Nitrite, Urine Negative Negative LAB URINALYSIS - AUTOMATED METHOD 02/11/2025 8:40 PM [facility] Protein, Urine Negative <=Trace mg/dL LAB URINALYSIS - AUTOMATED METHOD 02/11/2025 8:40 PM [facility] Glucose, Urine Negative Negative mg/dL LAB URINALYSIS - AUTOMATED METHOD 02/11/2025 8:40 PM [facility] Ketones, Urine Negative Negative mg/dL LAB URINALYSIS - AUTOMATED METHOD 02/11/2025 8:40 PM [facility] Urobilinogen , Urine 0.2 0.2 - 1.0 mg/dL LAB URINALYSIS - AUTOMATED METHOD 02/11/2025 8:40 PM [facility] Bilirubin, Urine Negative Negative LAB URINALYSIS - AUTOMATED METHOD 02/11/2025 8:40 PM [facility] Blood, Urine Moderate(A) Negative LAB URINALYSIS - AUTOMATED METHOD 02/11/2025 8:40 PM EDT [facility] RBC, Urine 12.8(H) 0 - 4 /HPF LAB URINALYSIS - AUTOMATED METHOD 02/11/2025 8:40 PM EDT [facility] WBC, Urine 2.1 0 - 4 /HPF LAB URINALYSIS - AUTOMATED METHOD 02/11/2025 8:40 PM EDT [facility] Squamous Epithelial, Urine 17 0 - 60 /LPF LAB URINALYSIS - AUTOMATED METHOD 02/11/2025 8:40 PM EDT [facility] Bacteria, Urine Negative Negative /HPF LAB URINALYSIS - AUTOMATED METHOD 02/11/2025 8:40 PM EDT [facility] Hyaline Casts, Urine 0.4 0 - 3 /LPF LAB URINALYSIS - AUTOMATED METHOD 02/11/2025 8:40 PM EDT [facility] Urine Urine specimen obtained by clean catch procedure / Unknown Non-blood Collection / Unknown 02/11/2025 7:54 PM EDT 02/11/2025 8:05 PM EDT us Pepe MIKE LAB URINE ORDERABLES Final R esult [facility] [address] [place] [address], * ECG 12 lead (02/11/2025 5:07 PM EDT) Ventricular Rate ECG 83 BPM GEMUSE Atrial Rate 83 BPM GEMUSE P-R Interval 154 ms GEMUSE QRS Duration 84 ms GEMUSE Q-T Interval 364 ms GEMUSE QTc 427 ms GEMUSE P Wave Weems 19 degrees GEMUSE R Weems 22 degrees GEMUSE T Weems 128 degrees GEMUSE ECG Interpretation Normal sinus rhythm Nonspecific ST and T wave abnormality Abnormal ECG No previous ECGs available Confirmed by MD Low, Dusty ([id number]) on 02/12/2025 2:11:56 AM GEMUSE 02/11/2025 5:07 [...] Vitreous hemorrhage is not excluded. Telerad PA ([id number]) -------- FINAL REPORT -------- Dictated By: Tawanna Knott Dictated Date: 02/11/2025 16:58 ET Assigned Physician: Tawanna Knott Reviewed and Electronically Signed By: Tawanna Knott Signed Date: 02/11/2025 17:01 ET Workstation ID: [id number] Transcribed By: Self Edit Transcribed Date: 02/11/2025 16:58 ET Narrative 02/11/2025 5:01 PM EDT History: Dizziness. Weakness. Comparison: No comparison imaging at this institution. Technique: Contiguous axial images were obtained at 2.5 mm intervals through the posterior fossa and at 5 mm intervals through the remainder of the brain without intravenous contrast. DLP: 808.85 mGy/cm [employer] VCT Iterative reconstruction technique Findings: The ventricular [...] brain without intravenous contrast. DLP: 808.85 mGy/cm [employer] VCT Iterative reconstruction technique Findings: The ventricular [...] recommended.Vitreous hemorrhage is not excluded. Telepaul MIKE ([id number]) -------- FINAL REPORT -------- Dictated By: Tawanna Knott Dictated Date: 02/11/2025 16:58 ET Assigned Physician: Tawanna Knott Reviewed and Electronically Signed By: Tawanna Knott Signed Date: 02/11/2025 17:01 ET Workstation ID: [id number] Transcribed By: Self Edit Transcribed Date: 02/11/2025 16:58 ET us Pepe MIKE IMG CT PROCEDURES Final Resu lt * (ABNORMAL) CBC auto differential (02/11/2025 4:37 PM EDT) WBC 8.8 4.8 - 10.8 K/[facility] LAB HEMETOLOGY METHOD 02/11/2025 5:04 PM EDT [facility] RBC 4.10 3.80 - 4.80 M/mcL LAB HEMETOLOGY METHOD 02/11/2025 5:04 PM [facility] Hemoglobin 12.3 11.5 - 16.0 g/dL LAB HEMETOLOGY METHOD 02/11/2025 5:04 PM [facility] Hematocrit 37.1 35.0 - 47.0 % LAB HEMETOLOGY METHOD 02/11/2025 5:04 PM [facility] MCV 91.4 79.0 - 98.0 FL LAB HEMETOLOGY METHOD 02/11/2025 5:04 PM [facility] MCH 30.3 27.0 - 32.0 pcg LAB HEMETOLOGY METHOD 02/11/2025 5:04 PM [facility] MCHC 33.2 32.0 - 37.0 g/dL LAB HEMETOLOGY METHOD 02/11/2025 5:04 PM [facility] RDW 13.2 11.0 - 15.0 % LAB HEMETOLOGY METHOD 02/11/2025 5:04 PM [facility] Platelets 291 130 - 400 K/mcL LAB HEMETOLOGY METHOD 02/11/2025 5:04 PM [facility] MPV 10.6 7.0 - 11.0 FL LAB HEMETOLOGY METHOD 02/11/2025 5:04 PM [facility] NRBC 0.0 <1.0 % LAB HEMETOLOGY METHOD 02/11/2025 5:04 PM [facility] NRBC Absolute 0.00 <0.10 K/mcL LAB HEMETOLOGY METHOD 02/11/2025 5:04 PM [facility] Neutrophils Relative 51.5 % LAB HEMETOLOGY METHOD 02/11/2025 5:04 PM [facility] Lymphocytes Relative 34.9 % LAB HEMETOLOGY METHOD 02/11/2025 5:04 PM EDT [facility] Monocytes Relative 5.6 % LAB HEMETOLOGY METHOD [facility] Eosinophils Relative 7.0 % LAB HEMETOLOGY METHOD 02/11/2025 5:04 PM [facility] Basophils Relative 0.5 % LAB HEMETOLOGY METHOD [facility]20[facility] 5:[facility] Immature Granulocytes Relative 0.5 % LAB HEMETOLOGY METHOD 02/11/2025 5:04 PM [facility] Neutrophils Absolute 4.52 1.50 - 7.00 K/mcL LAB HEMETOLOGY METHOD 02/11/2025 5:04 PM [facility] Lymphocytes Absolute 3.06 1.00 - 5.00 K/mcL LAB HEMETOLOGY METHOD 02/11/2025 5:04 PM [facility] Monocytes Absolute 0.49 0.20 - 1.00 K/mcL LAB HEMETOLOGY METHOD 02/11/2025 5:04 PM [facility] Eosinophils Absolute 0.61(H) 0.00 - 0.50 K/mcL LAB HEMETOLOGY METHOD 02/11/2025 5:04 PM [facility] Basophils Absolute 0.04 0.00 - 0.20 K/mcL LAB HEMETOLOGY METHOD 02/11/2025 5:04 PM [facility] Immature Granulocytes Absolute 0.04(H) 0.00 - 0.03 K/mcL LAB HEMETOLOGY METHOD 02/11/2025 5:04 PM [facility] Blood Venous blood specimen / Unknown Venipuncture / Unknown 02/11/2025 4:37 PM EDT 02/11/2025 4:51 PM EDT Tahir Veronica Burns MD LAB BLOOD ORDERABLES Final Resu lt [facility] [address] [place] [address], * Magnesium (02/11/2025 4:37 PM EDT) [facility] Magnesium 2.0 1.9 - 2.6 mg/dL LAB CHEMISTRY METHOD 02/11/2025 5:20 PM EDT [facility] Blood Venous blood specimen / Unknown Venipuncture / Unknown 02/11/2025 4:37 PM EDT 02/11/2025 4:51 PM EDT Tahir Burns MD LAB BLOOD ORDERABLES Final Resu lt Performing Organization Address [facility] de Phone Number [facility] [address] [place] [address], * Lipase (02/11/2025 4:37 PM EDT) [facility] Lipase 18 13 - 75 unit/L LAB CHEMISTRY METHOD 02/11/2025 5:20 PM EDT [facility] Blood Venous blood specimen / Unknown Venipuncture / Unknown 02/11/2025 4:37 PM EDT 02/11/2025 4:51 PM EDT ePpe MIKE LAB BLOOD ORDERABLES Final R esult Performing Organization Address [facility] Co de Phone Number [facility] [address] [place] [address], [place] [phone] * (ABNORMAL) Comprehensive Metabolic Panel (CMP) (02/11/2025 4:37 PM EDT) [facility] Sodium 137 133 - 145 mmol/L LAB CHEMISTRY METHOD 02/11/2025 5:20 PM EDT [facility] Potassium 3.7 3.5 - 5.5 mmol/L LAB CHEMISTRY METHOD 02/11/2025 5:20 PM [facility] Chloride 104 96 - 110 mmol/L LAB CHEMISTRY METHOD 02/11/2025 5:20 PM [facility] CO2 26 21 - 32 mmol/L LAB CHEMISTRY METHOD 02/11/2025 5:20 PM [facility] Anion Gap 7 3 - 11 LAB CHEMISTRY METHOD 02/11/2025 5:20 PM [facility] Glucose 95 70 - 100 mg/dL LAB CHEMISTRY METHOD 02/11/2025 5:20 PM [facility] BUN 47(H) 5 - 25 mg/dL LAB CHEMISTRY METHOD 02/11/2025 5:20 PM [facility] Creatinine 1.72(H) 0.50 - 1.10 mg/dL LAB CHEMISTRY METHOD 02/11/2025 5:20 PM [facility] eGFR 36(L) >=60 mL/min/1. 73m2 LAB CHEMISTRY METHOD 02/11/2025 5:20 PM [facility] Comment:Calculation based on the??Chronic Kidney Disease Epidemiology Collaboration (CKD-EPI) equation refit??without adjustment for race. BUN/Creatinine Ratio 27.3 LAB CHEMISTRY METHOD 02/11/2025 5:20 PM [facility] Calcium 9.4 8.5 - 10.5 mg/dL LAB CHEMISTRY METHOD 02/11/2025 5:20 PM [facility] AST (SGOT) 22 10 - 42 unit/L LAB CHEMISTRY METHOD 02/11/2025 5:20 PM [facility] ALT (SGPT) 28 10 - 60 unit/L LAB CHEMISTRY METHOD 02/11/2025 5:20 PM [facility] Alkaline Phosphatase 118 42 - 121 unit/L LAB CHEMISTRY METHOD 02/11/2025 5:20 PM [facility] Total Protein 7.4 6.0 - 8.0 g/dL LAB CHEMISTRY METHOD 02/11/2025 5:20 PM EDT [facility] Albumin 3.7 3.2 - 5.0 g/dL LAB CHEMISTRY METHOD 02/11/2025 5:20 PM EDT [facility] Total Bilirubin 0.3 0.0 - 1.4 mg/dL LAB CHEMISTRY METHOD 02/11/2025 5:20 PM EDT [facility] Blood Venous blood specimen / Unknown Venipuncture / Unknown 02/11/2025 4:37 PM EDT 02/11/2025 4:51 PM EDT Pepe MIKE LAB BLOOD ORDERABLES Final R esult [facility] [address] [place] [address], [place] [phone] * HIV Screening (08/24/2017) Pathologist [facility] HIV Screening abstracted [facility] Provider HEALTH MAINTENANCE Final Result * Hepatitis C Screening (08/24/2017) Pathologist [facility] Hepatitis C Screening abstracted [facility] Provider HEALTH MAINTENANCE Final Result * Pap Smear (07/17/2015) Pathologist [facility] Pap smear no interpretation , abstracted [facility] Provider HEALTH MAINTENANCE Final Result from Last 3 Months or Most Recently Relevant to Health Maintenance Insurance MEDICAID - [place] Care Teams Computer Applications Engineer Relationship Specialty Start Date End Date Yolie Desir MD [address] [place] [phone] PCP - General 07/25/24
--- OUTSIDE RECORDS SUMMARY | 2025-03-21 10:31 | XMS_ITS | Encounter Summary ---
Author Organization [employer] Address [address] [place] [address] Care Team Providers Care Roller Mill Tender Name Role Phone Yolie Desir MD Primary Care Provider + Reason for Visit * Reason Comments Med Refill Encounter Details Date Type Department Care Team ([facility] st Contact Info) Description 12/22/2023 Refill [facility] MEDICINE [address] [place], [place] [phone] [facility] [address] [place] [address] Acute on chronic congestive heart failure, unspecified [...] documented as of this encounter Care Teams Roller Mill Tender Relationship Specialty Start Date End Date Yolie Desir MD [address] [place] [address] PCP - General Family Medicine 10/26/19 documented as of this encounter
--- OUTSIDE RECORDS SUMMARY | 2025-03-21 10:31 | XMS_ITS | Encounter Summary ---
Author Organization [employer] Address [address] [place] [address] Care Team Providers Care Instructor Psychiatric Aide Name Role Phone Yolie Desir MD Primary Care Provider + Reason for Visit * Reason Comments Med Refill Encounter Details Date Type Department Care Team ([facility] st Contact Info) Description 01/02/2024 Refill [facility] MEDICINE [address] [place], [place] [phone] [facility] [address] [place] [address] Acute on chronic congestive heart failure, unspecified [...] documented as of this encounter Care Teams Instructor Psychiatric Aide Relationship Specialty Start Date End Date Yolie Desir MD [address] [place] [address] PCP - General Family Medicine 10/26/19 documented as of this encounter
--- OUTSIDE RECORDS SUMMARY | 2025-03-21 10:31 | XMS_ITS | Encounter Summary ---
Author Organization [employer] Address [address] [place] [address] Care Team Providers Care Form Building Supervisor Name Role Phone Yolie Desir MD Primary Care Provider + Reason for Visit * Reason Comments Med Refill Encounter Details Date Type Department Care Team ([facility] st Contact Info) Description 12/26/2023 Refill [facility] MEDICINE [address] [place], [place] [phone] [facility] [address] [place] [address] Acute on chronic congestive heart failure, unspecified [...] documented as of this encounter Care Teams Form Building Supervisor Relationship Specialty Start Date End Date Yolie Desir MD [address] [place] [address] PCP - General Family Medicine 10/26/19 documented as of this encounter
--- OUTSIDE RECORDS SUMMARY | 2025-03-21 10:31 | XMS_ITS | Encounter Summary ---
Author Organization [employer] Address [address] [place] [address] Care Team Providers Care Barrel Brander Name Role Phone Yolie Desir MD Primary Care Provider + Reason for Visit * Reason Comments Med Refill Encounter Details Date Type Department Care Team ([facility] st Contact Info) Description 11/29/2023 Refill [facility] DIABETES/NUTRITION [address] [place], [place] [phone] Axel Graf MD [address] [place] [address] Diabetic nephropathy associated with type 2 diabetes mellitus ([facility]/HCC) Social History Tobacco Use Types Packs/Day [...] associated with type 2 diabetes mellitus ([facility]) documented in this encounter Additional Health Concerns Assessment Noted Time PHQ-9 Depression Total Score: 8 02/11/20 23 9:24 AM EDT documented as of this encounter Care Teams Barrel Brander Relationship Specialty Start Date End Date Yolie Desir MD [address] [place] [phone] PCP - General Family Medicine 10/26/19 documented as of this encounter
[2025-03-21 18:03] LABS: Anion Gap 14 (12-20); Blood Urea Nitrogen 24 mg/dL (9-16); Carbon Dioxide 28 mmol/L (22-29); Chloride 98 mmol/L (96-108); Estimated Glomerular Filt Rate 51; Potassium 3.9 mmol/L (3.3-5.1); Sodium 136 mmol/L (135-145)
== END 2025-03-21 09:35 | disposition home or self-care (01) ==
LOC: HO.HKASLDS 09:34
PROVIDERS: Visit Provider Internal Medicine Nephrology
DX: I10 Essential (primary) hypertension (principal); E11.21 Type 2 diabetes mellitus with diabetic nephropathy; E11.22 Type 2 diabetes mellitus with diabetic chronic kidney disease; N18.30 Chronic kidney disease, stage 3 unspecified
CPT/HCPCS: 36415; 80051; 82565; 84520

== ENCOUNTER 2025-03-25 12:22 | Outpatient (AMB) | payer MEDICAID, SELFPAY ==
--- NOTE | 2025-03-25 12:55 | A.OFFVIS_ITS ---
Intake Intake Visit Reasons: 60 min Health Commissioner Required: Yes Health Commissioner Language: Romanian Accompanied by: Daughter Allergies sulfamethoxazole [From BACTRIM] Allergy (Severe, Verified 03/15/25 13:16) FACIAL SWELLING trimethoprim [From BACTRIM] Allergy (Severe, Verified 03/15/25 13:16) FACIAL SWELLING levofloxacin [From LEVAQUIN] Allergy (Intermediate, Verified 03/15/25 13:16) REDNESS, SWELLING ITCHINESS AT IV SITE HPI Comprehensive Diabetes Asmnt Most Recent Diabetes Results: 2 Hemoglobin A1c 8.7 % 08/31/19 Microalb/Creat Ratio 415.7 ug/mg cr (<30) H 06/25/24 Cholesterol 246 mg/dL (<200) H 06/25/24 HDL Cholesterol 46 mg/dL (>40) 06/25/24 Triglycerides 186 mg/dL (<150) H 06/25/24 Creatinine 1.13 mg/dL (0.5-1.4) 03/21/25 Blood Urea Nitrogen 24 mg/dL (9-16) H 03/21/25 Sodium 136 mmol/L (135-145) 03/21/25 Potassium 3.9 mmol/L (3.3-5.1) 03/21/25 Chloride 98 mmol/L (96-108) 03/21/25 Carbon Dioxide 28 mmol/L (22-29) 03/21/25 Calcium 10.8 mg/dL (8.4-10.2) H 02/18/25 AST 15 U/L (5-31) 10/27/22 ALT 18 U/L (0-31) 10/27/22 Total Protein 8.0 g/dL (6.5-8.0) 10/27/22 Albumin 4.4 g/dL (3.5-5.0) 10/27/22 [facility] Medical History (Updated 02/26/25 @ 07:32 by Iman Joy NP) Asthma DEVYN (obstructive sleep apnea) Osteomyelitis Wound of left foot DM2 (diabetes mellitus, type 2) Hyperlipidemia LDL goal <100 CAD (coronary artery disease) Retinopathy Anxiety Depression Type 2 diabetes mellitus with hyperglycemia, with long-term current use of insulin Proteinuria Type 2 diabetes mellitus with other diabetic kidney complication Essential hypertension Obesity due to excess calories Type 2 diabetes mellitus with diabetic polyneuropathy Surgical History Hx of breast biopsy Hx of section Hx of tubal ligation Hx of coronary artery bypass surgery Family History Maternal Grandmother Diabetes Cervical cancer Brother Diabetes Sister Breast cancer Social History Household Members: Family Household Members Other:: 1 Housing: Apartment Alcohol intake: never Patient Tobacco Use Status: Never used Tobacco Second Hand Smoke Exposure: No service: No Current occupational status: unemployed Female Reproductive History Menstrual Age of Menarche: 11 Assessment & Plan Assessment & Plan (1) Type 2 diabetes mellitus with other diabetic kidney complication: Code(s): E11.29 - Type 2 diabetes mellitus with other diabetic kidney complication Plan: Patient presents for pump training for Omni pod 5 pump and Dexcom G6 CGM training today. The following topics were reviewed today: ??? High Alert: 250 mg/dl ??? Low Alert: 70 mg/dl Patient reports she has been on prednisone and an antibiotic for lung infection Glucose levels have been running above target, patient the effects that infection and prednisone can have on glucose levels. Encourage patient to take correction through insulin pump when glucose levels are high, in addition stay in auto mode as much as possible. If you notice you have been switched back to manual mode, respond to alert in insulin pump and switch to auto mode Demonstrated for patient how to switch modes on Omnipod fire control system installer, and how to take correction dose of insulin. Patient has follow-up appointment with endocrine PLASTIC PARTS FABRICATOR on 03/26/2025 Requested prescription for Dexcom G7 sensors be sent to patient's pharmacy, once patient receives Dexcom G7 sensors call clinic to set up CGM training appointment Patient understands the basic concepts of pump therapy, how to give insulin for meals and snacks, how to troubleshoot for hyper and hypoglycemia. Setting verified by CDCES, no changes made to patient's insulin pump settings at today's visit Basal rate(s) (units/hour) : 12 AM? to 12 AM 1.6 units / hr Bolus setting Insulin Carbohydrate Ratio (s) 12 AM? to 12 PM? 1:4 12 PM to 12 AM? 1:3.5 Correction Factor / Sensitivity Factor 12 AM? to 12 PM? 1:20 Active Insulin Time:?4 hours BG target range 110 mg/dL Correction threshold 120 mg/dL Patient Instructions: Patient will contact family life educator with questions or concerns Patient will follow-up with family life educator in when she receives Dexcom G7 sensors Patient Instructions: El paciente se comunicar? con el educador en diabetes si tiene preguntas o inquietudes. El paciente thompson? un seguimiento con el educador en diabetes cuando reciba los sensores Dexcom G7. Coding Level of Care Code Est Pt Level 1 (29480) Diagnoses Type 2 diabetes mellitus with other diabetic kidney complication E11.29
--- OUTSIDE RECORDS SUMMARY | 2025-03-25 13:46 | XMS_ITS | Encounter Summary ---
Author Organization [employer] Address [address] [place] [address] Care Team Providers Care Outside Solar Sales Consultant Name Role Phone Yolie Desir MD Primary Care Provider + Reason for Visit * Reason Comments Med Refill Encounter Details Date Type Department Care Team ([facility] st Contact Info) Description 01/02/[address] [facility] MEDICINE [address] [place], [place] [phone] [facility] [address] [place] [address] Acute on chronic congestive heart failure, unspecified [...] documented as of this encounter Care Teams Outside Solar Sales Consultant Relationship Specialty Start Date End Date Yolie Desir MD [address] [place] [address] PCP - General Family Medicine 10/26/19 documented as of this encounter
--- OUTSIDE RECORDS SUMMARY | 2025-03-25 13:46 | XMS_ITS | Encounter Summary ---
Author Organization [employer] Address [address] 7[address] [place] [address] Care Team Providers Care Site Interpreter Name Role Phone Yolie Desir MD Primary Care Provider + Reason for Visit * Reason Comments Med Refill Encounter Details Date Type Department Care Team ([facility] st Contact Info) Description 12/29/2023 Refill [facility] [address] [place], [place] [phone] Yolie Desir MD [address] [place], [place] [phone] Diabetic nephropathy associated with type 2 diabetes [...] with type 2 diabetes mellitus (CMS/[facility]) documented in this encounter Additional Health Concerns Assessment Noted Time PHQ-9 Depression Total Score: 8 02/11/20 23 9:24 AM EDT documented as of this encounter Care Teams Site Interpreter Relationship Specialty Start Date End Date Yolie Desir MD [address] [place] [address] PCP - General Family Medicine 10/26/19 documented as of this encounter
--- OUTSIDE RECORDS SUMMARY | 2025-03-25 13:46 | XMS_ITS | Encounter Summary ---
Author Organization [employer] Address [address] [place] [address] Care Team Providers Care Oil Well Pumper Name Role Phone Yolie Desir MD Primary Care Provider + Reason for Visit * Reason Comments Med Refill Encounter Details Date Type Department Care Team ([facility] st Contact Info) Description 06/15/[address] [facility] [address] [place], [place] [phone] Yolie Desir MD [address] [place] [address] Diabetic nephropathy associated with type 2 diabetes mellitus ([facility]) Social History Tobacco Use Types [...] nephropathy associated with type 2 diabetes mellitus (CMS/[facility]) documented in this encounter Additional Health Concerns Assessment Noted Time PHQ-9 Depression Total Score: 8 02/11/20 23 9:24 AM EDT documented as of this encounter Care Teams Oil Well Pumper Relationship Specialty Start Date End Date Yolie Desir MD [address] [place] [address] PCP - General Family Medicine 10/26/19 documented as of this encounter
--- OUTSIDE RECORDS SUMMARY | 2025-03-25 13:47 | XMS_ITS | Clinical Summary ---
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 [address] [place] [phone] Dehydration (Primary Dx); Mild intermittent asthma without complication Discharge Disposition: Home or Self Care 01/09/2025 3:30 PM EST Office Visit Orthopedic Surgery [facility] [address] [phone] Dusty Gonzalez, DPM Xerosis of skin (Primary Dx); Ulcer of toe of left foot, with fat layer exposed ([facility] V24, [facility] V28); Metatarsalgia of both feet; Type II diabetes mellitus with peripheral circulatory disorder ([facility] V24, [facility] V28); Diabetic mononeuropathy simplex ([facility] V24, [facility] V28) 12/26/2024 3:00 PM EST Office Visit Orthopedic Surgery [facility] [address] [phone] Dusty Gonzalez, DPM Ulcer of toe of right foot, with fat layer exposed ([facility] V24, [facility] V28) (Primary Dx); Dermatophytosis of nail; Pain in toe of right foot; Pain in toe of left foot; Diabetic mononeuropathy simplex ([facility] V24, [facility] V28); Type II diabetes mellitus with peripheral circulatory disorder ([facility] V24, [facility] V28); Metatarsalgia of both feet; Ulcer of toe of left foot, limited to breakdown of skin ([facility] V24, [facility] V28) from Last 3 Months Medical History Medical History Date Comments Diabetes mellitus ([facility] V24, [facility] V28) Social History Tobacco Use Types Packs/Day [...] Upcoming Encounters Date Type Department Care Team ([facility] st Contact Info) Description 03/25/2025 3:30 PM EDT Office Visit Orthopedic [facility] [address] [phone] Dusty Gonzalez, DPM [address] [address] Health Maintenance Due Date Last Done Comments [...] No active pulmonary process identified. Telerad RASHID ([id number]) -------- FINAL REPORT -------- Dictated By: Tawanna Knott Dictated Date: 02/12/2025 09:09 ET Assigned Physician: Tawanna Knott Reviewed and Electronically Signed By: Tawanna Knott Signed Date: 02/12/2025 09:10 ET Workstation ID: [id number] Transcribed By: Self Edit Transcribed Date: 02/12/2025 [...] No active pulmonary process identified. Telerad RASHID ([id number]) -------- FINAL REPORT -------- Dictated By: Tawanna Knott Dictated Date: 02/12/2025 09:09 ET Assigned Physician: Tawanna Knott Reviewed and Electronically Signed By: Tawanna Knott Signed Date: 02/12/2025 09:10 ET Workstation ID: [id number] Transcribed By: Self Edit Transcribed Date: 02/12/2025 09:09 ET us Pepe MIKE IMG XR PROCEDURES Final Resu lt * (ABNORMAL) Urinalysis with reflex microscopic (02/11/2025 7:54 PM EDT) Specific [place] Urine 1.013 1.003 - 1.030 LAB URINALYSIS - AUTOMATED METHOD [facility] pH, Urine 6.0 5.0 - 8.0 pH LAB URINALYSIS - AUTOMATED METHOD 02/11/2025 8:40 PM [facility] Leukocytes, Urine Negative Negative LAB URINALYSIS - AUTOMATED METHOD 02/11/2025 8:40 PM [facility] Nitrite, Urine Negative Negative LAB URINALYSIS - AUTOMATED METHOD 02/11/2025 8:40 PM [facility] Protein, Urine Negative <=Trace mg/dL LAB URINALYSIS - AUTOMATED METHOD 02/11/2025 8:40 PM [facility] Glucose, Urine Negative Negative mg/dL LAB URINALYSIS - AUTOMATED METHOD 02/11/2025 8:40 PM [facility] Ketones, Urine Negative Negative mg/dL LAB URINALYSIS - AUTOMATED METHOD 02/11/2025 8:40 PM [facility] Urobilinogen , Urine 0.2 0.2 - 1.0 mg/dL LAB URINALYSIS - AUTOMATED METHOD 02/11/2025 8:40 PM [facility] Bilirubin, Urine Negative Negative LAB URINALYSIS - AUTOMATED METHOD 02/11/2025 8:40 PM [facility] Blood, Urine Moderate(A) Negative LAB URINALYSIS - AUTOMATED METHOD 02/11/2025 8:40 PM EDT [facility] RBC, Urine 12.8(H) 0 - 4 /HPF LAB URINALYSIS - AUTOMATED METHOD 02/11/2025 8:40 PM EDT [facility] WBC, Urine 2.1 0 - 4 /HPF LAB URINALYSIS - AUTOMATED METHOD 02/11/2025 8:40 PM EDT [facility] Squamous Epithelial, Urine 17 0 - 60 /LPF LAB URINALYSIS - AUTOMATED METHOD 02/11/2025 8:40 PM EDT [facility] Bacteria, Urine Negative Negative /HPF LAB URINALYSIS - AUTOMATED METHOD 02/11/2025 8:40 PM EDT [facility] Hyaline Casts, Urine 0.4 0 - 3 /LPF LAB URINALYSIS - AUTOMATED METHOD 02/11/2025 8:40 PM EDT [facility] Urine Urine specimen obtained by clean catch procedure / Unknown Non-blood Collection / Unknown 02/11/2025 7:54 PM EDT 02/11/2025 8:05 PM EDT us Pepe MIKE LAB URINE ORDERABLES Final R esult [facility] [address] [place] [address], * ECG 12 lead (02/11/2025 5:07 PM EDT) Ventricular Rate ECG 83 BPM GEMUSE Atrial Rate 83 BPM GEMUSE P-R Interval 154 ms GEMUSE QRS Duration 84 ms GEMUSE Q-T Interval 364 ms GEMUSE QTc 427 ms GEMUSE P Wave [place] 19 degrees GEMUSE R [place] 22 degrees GEMUSE T [place] 128 degrees GEMUSE ECG Interpretation Normal sinus rhythm Nonspecific ST and T wave abnormality Abnormal ECG No previous ECGs available Confirmed by MD Low, Dusty ([id number]) on 02/12/2025 2:11:56 AM GEMUSE 02/11/2025 5:07 [...] Vitreous hemorrhage is not excluded. Telerad PA ([id number]) -------- FINAL REPORT -------- Dictated By: Tawanna Knott Dictated Date: 02/11/2025 16:58 ET Assigned Physician: Tawanna Knott Reviewed and Electronically Signed By: Tawanna Knott Signed Date: 02/11/2025 17:01 ET Workstation ID: [id number] Transcribed By: Self Edit Transcribed Date: 02/11/2025 16:58 ET Narrative 02/11/2025 5:01 PM EDT History: Dizziness. Weakness. Comparison: No comparison imaging at this institution. Technique: Contiguous axial images were obtained at 2.5 mm intervals through the posterior fossa and at 5 mm intervals through the remainder of the brain without intravenous contrast. DLP: 808.85 mGy/cm [employer] VCT Iterative reconstruction technique Findings: The ventricular [...] brain without intravenous contrast. DLP: 808.85 mGy/cm [employer]ANT[employer] VCT Iterative reconstruction technique Findings: The ventricular [...] recommended.Vitreous hemorrhage is not excluded. Telepaul MIKE ([id number]) -------- FINAL REPORT -------- Dictated By: Tawanna Knott Dictated Date: 02/11/2025 16:58 ET Assigned Physician: Tawanna Knott Reviewed and Electronically Signed By: Tawanna Knott Signed Date: 02/11/2025 17:01 ET Workstation ID: [id number] Transcribed By: Self Edit Transcribed Date: 02/11/2025 16:58 ET us Pepe MIKE IMG CT PROCEDURES Final Resu lt * (ABNORMAL) CBC auto differential (02/11/2025 4:37 PM EDT) WBC 8.8 4.8 - 10.8 K/[facility] LAB HEMETOLOGY METHOD 02/11/2025 5:04 PM EDT [facility] RBC 4.10 3.80 - 4.80 M/mcL LAB HEMETOLOGY METHOD 02/11/2025 5:04 PM [facility] Hemoglobin 12.3 11.5 - 16.0 g/dL LAB HEMETOLOGY METHOD 02/11/2025 5:04 PM [facility] Hematocrit 37.1 35.0 - 47.0 % LAB HEMETOLOGY METHOD 02/11/2025 5:04 PM [facility] MCV 91.4 79.0 - 98.0 FL LAB HEMETOLOGY METHOD 02/11/2025 5:04 PM [facility] MCH 30.3 27.0 - 32.0 pcg LAB HEMETOLOGY METHOD 02/11/2025 5:04 PM [facility] MCHC 33.2 32.0 - 37.0 g/dL LAB HEMETOLOGY METHOD 02/11/2025 5:04 PM [facility] RDW 13.2 11.0 - 15.0 % LAB HEMETOLOGY METHOD 02/11/2025 5:04 PM [facility] Platelets 291 130 - 400 K/mcL LAB HEMETOLOGY METHOD 02/11/2025 5:04 PM [facility] MPV 10.6 7.0 - 11.0 FL LAB HEMETOLOGY METHOD 02/11/2025 5:04 PM [facility] NRBC 0.0 <1.0 % LAB HEMETOLOGY METHOD 02/11/2025 5:04 PM [facility] NRBC Absolute 0.00 <0.10 K/mcL LAB HEMETOLOGY METHOD 02/11/2025 5:04 PM [facility] Neutrophils Relative 51.5 % LAB HEMETOLOGY METHOD 02/11/2025 5:04 PM [facility] Lymphocytes Relative 34.9 % LAB HEMETOLOGY METHOD 02/11/2025 5:04 PM EDT [facility] Monocytes Relative 5.6 % LAB HEMETOLOGY METHOD [facility]25 5:04 PM [facility] Eosinophils Relative 7.0 % LAB HEMETOLOGY METHOD 02/11/2025 5:04 PM [facility] Basophils Relative 0.5 % LAB HEMETOLOGY METHOD 02/11/2025 5:04 PM [facility] Immature Granulocytes Relative 0.5 % LAB HEMETOLOGY METHOD 02/11/2025 5:04 PM [facility] Neutrophils Absolute 4.52 1.50 - 7.00 K/mcL LAB HEMETOLOGY METHOD 02/11/2025 5:04 PM [facility] Lymphocytes Absolute 3.06 1.00 - 5.00 K/mcL LAB HEMETOLOGY METHOD 02/11/2025 5:04 PM [facility] Monocytes Absolute 0.49 0.20 - 1.00 K/mcL LAB HEMETOLOGY METHOD 02/11/2025 5:04 PM [facility] Eosinophils Absolute 0.61(H) 0.00 - 0.50 K/mcL LAB HEMETOLOGY METHOD 02/11/2025 5:04 PM [facility] Basophils Absolute 0.04 0.00 - 0.20 K/mcL LAB HEMETOLOGY METHOD 02/11/2025 5:04 PM [facility] Immature Granulocytes Absolute 0.04(H) 0.00 - 0.03 K/mcL LAB HEMETOLOGY METHOD 02/11/2025 5:04 PM [facility] Blood Venous blood specimen / Unknown Venipuncture / Unknown 02/11/2025 4:37 PM EDT 02/11/2025 4:51 PM EDT Tahir Veronica Burns MD LAB BLOOD ORDERABLES Final Resu lt [facility] [address] [place] [address], * Magnesium (02/11/2025 4:37 PM EDT) [facility] Magnesium 2.0 1.9 - 2.6 mg/dL LAB CHEMISTRY METHOD 02/11/2025 5:20 PM EDT [facility] Blood Venous blood specimen / Unknown Venipuncture / Unknown 02/11/2025 4:37 PM EDT 02/11/2025 4:51 PM EDT Tahir Burns MD LAB BLOOD ORDERABLES Final Resu lt Performing Organization Address [facility] de Phone Number [facility] [address] [place] [address], * Lipase (02/11/2025 4:37 PM EDT) [facility] Lipase 18 13 - 75 unit/L LAB CHEMISTRY METHOD 02/11/2025 5:20 PM EDT [facility] Blood Venous blood specimen / Unknown Venipuncture / Unknown 02/11/2025 4:37 PM EDT 02/11/2025 4:51 PM EDT Pepe MIKE LAB BLOOD ORDERABLES Final R esult Performing Organization Address [facility] Co de Phone Number [facility] [address] [place] [address], [place] [phone] * (ABNORMAL) Comprehensive Metabolic Panel (CMP) (02/11/2025 4:37 PM EDT) [facility] Sodium 137 133 - 145 mmol/L LAB CHEMISTRY METHOD 02/11/2025 5:20 PM EDT [facility] Potassium 3.7 3.5 - 5.5 mmol/L LAB CHEMISTRY METHOD 02/11/2025 5:20 PM [facility] Chloride 104 96 - 110 mmol/L LAB CHEMISTRY METHOD 02/11/2025 5:20 PM [facility] CO2 26 21 - 32 mmol/L LAB CHEMISTRY METHOD 02/11/2025 5:20 PM [facility] Anion Gap 7 3 - 11 LAB CHEMISTRY METHOD 02/11/2025 5:20 PM [facility] Glucose 95 70 - 100 mg/dL LAB CHEMISTRY METHOD 02/11/2025 5:20 PM [facility] BUN 47(H) 5 - 25 mg/dL LAB CHEMISTRY METHOD 02/11/2025 5:20 PM [facility] Creatinine 1.72(H) 0.50 - 1.10 mg/dL LAB CHEMISTRY METHOD 02/11/2025 5:20 PM [facility] eGFR 36(L) >=60 mL/min/1. 73m2 LAB CHEMISTRY METHOD 02/11/2025 5:20 PM [facility] Comment:Calculation based on the??Chronic Kidney Disease Epidemiology Collaboration (CKD-EPI) equation refit??without adjustment for race. BUN/Creatinine Ratio 27.3 LAB CHEMISTRY METHOD 02/11/2025 5:20 PM [facility] Calcium 9.4 8.5 - 10.5 mg/dL LAB CHEMISTRY METHOD 02/11/2025 5:20 PM [facility] AST (SGOT) 22 10 - 42 unit/L LAB CHEMISTRY METHOD 02/11/2025 5:20 PM [facility] ALT (SGPT) 28 10 - 60 unit/L LAB CHEMISTRY METHOD 02/11/2025 5:20 PM [facility] Alkaline Phosphatase 118 42 - 121 unit/L LAB CHEMISTRY METHOD 02/11/2025 5:20 PM [facility] Total Protein 7.4 6.0 - 8.0 g/dL LAB CHEMISTRY METHOD 02/11/2025 5:20 PM EDT [facility] Albumin 3.7 3.2 - 5.0 g/dL LAB CHEMISTRY METHOD 02/11/2025 5:20 PM EDT [facility] Total Bilirubin 0.3 0.0 - 1.4 mg/dL LAB CHEMISTRY METHOD 02/11/2025 5:20 PM EDT [facility] Blood Venous blood specimen / Unknown Venipuncture / Unknown 02/11/2025 4:37 PM EDT 02/11/2025 4:51 PM EDT Pepe MIKE LAB BLOOD ORDERABLES Final R esult [facility] [address] [place] [address], [place] [phone] * HIV Screening (08/24/2017) Pathologist [facility] HIV Screening abstracted [facility] Provider HEALTH MAINTENANCE Final Result * Hepatitis C Screening (08/24/2017) Pathologist [facility] Hepatitis C Screening abstracted [facility] Provider HEALTH MAINTENANCE Final Result * Pap Smear (07/17/2015) Pathologist [facility] Pap smear no interpretation , abstracted [facility] Provider HEALTH MAINTENANCE Final Result from Last 3 Months or Most Recently Relevant to Health Maintenance Insurance MEDICAID - [place] Care Teams Ball Mill Operator Relationship Specialty Start Date End Date Yolie Desir MD [address] [place] [phone] PCP - General 07/25/24
--- OUTSIDE RECORDS SUMMARY | 2025-03-25 13:47 | XMS_ITS | Encounter Summary ---
Author Organization [employer] Address [address] [place] [address] Care Team Providers Care Match Marker Name Role Phone Yolie Desir MD Primary Care Provider + Reason for Visit * Reason Comments Med Refill Encounter Details Date Type Department Care Team ([facility] st Contact Info) Description 03/24/2025 Refill [facility] MED[facility] [address] [place], [place] [phone] Yolie Desir MD [address] [place], [place] [phone] Iron deficiency anemia due to chronic blood loss Social History Tobacco Use Types Packs/Day Years [...] as of this encounter Visit Diagnoses Diagnosis Iron deficiency anemia due to chronic blood loss Iron deficiency anemia secondary to blood loss (chronic) documented in this encounter Additional Health Concerns Assessment Noted Time PHQ-9 Depression Total Score: 8 02/11/20 23 9:24 AM EDT documented as of this encounter Care Teams Match Marker Relationship Specialty Start Date End Date Yolie Desir MD [address] [place] [phone] PCP - General Family Medicine 10/26/19 documented as of this encounter
--- OUTSIDE RECORDS SUMMARY | 2025-03-25 13:47 | XMS_ITS | Encounter Summary ---
Author Organization [employer] [facility] Address [address] [place] [address] Care Team Providers Care Project Officer Name Role Phone Yolie Desir MD Primary Care Provider + Encounter Details Date Type Department Care Team (Late st Contact Info) Description 01/25/2023 Abstract [facility] MEDICINE [address] [place], [place] [phone] Yolie Desir MD [address] [place] [address] Social History Tobacco Use Types Packs/Day Years [...] on filedocumented in this encounter Care Teams Project Officer Relationship Specialty Start Date End Date Yolie Desir MD [address] [place], [place] [phone] PCP - General Family Medicine 10/26/19 documented as of this encounter
--- OUTSIDE RECORDS SUMMARY | 2025-03-25 13:47 | XMS_ITS | Encounter Summary ---
Author Organization [employer] Address [address] [place] [address] Care Team Providers Care Freelance Graphic Designer Name Role Phone Yolie Desir MD Primary Care Provider + Reason for Visit * Reason Comments Med Refill Encounter Details Date Type Department Care Team ([facility] st Contact Info) Description 11/29/2023 Refill [facility]/NUTRITION [address] [place], [place] [phone] Axel Graf MD [address] [place] [address] Diabetic nephropathy associated with type 2 diabetes mellitus ([facility]/HCC) Social History Tobacco Use Types Packs/Day Years [...] associated with type 2 diabetes mellitus ([facility]) documented in this encounter Additional Health Concerns Assessment Noted Time PHQ-9 Depression Total Score: 8 02/11/20 23 9:24 AM EDT documented as of this encounter Care Teams Freelance Graphic Designer Relationship Specialty Start Date End Date Yolie Desir MD [address] [place] [phone] PCP - General Family Medicine 10/26/19 documented as of this encounter
--- OUTSIDE RECORDS SUMMARY | 2025-03-25 13:47 | XMS_ITS | Encounter Summary ---
Author Organization [employer] Address [address] [place] [address] Care Team Providers Care Cra Name Role Phone Yolie Desir MD Primary Care Provider + Reason for Visit * Reason Comments Med Refill Encounter Details Date Type Department Care Team ([facility] st Contact Info) Description 12/26/2023 Refill [facility] MED[facility]INE [address] [place], [place] [phone] [facility] [address] [place] [address] Acute on chronic congestive heart failure, unspecified [...] documented as of this encounter Care Teams Cra Relationship Specialty Start Date End Date Yolie Desir MD [address] [place] [address] PCP - General Family Medicine 10/26/19 documented as of this encounter
--- OUTSIDE RECORDS SUMMARY | 2025-03-25 13:47 | XMS_ITS | Encounter Summary ---
Author Organization [facility] Address [address] [place] [address] Care Team Providers Care Regional Trainer Name Role Phone Yolie Desir MD Primary Care Provider + Encounter Details Date Type Department Care Team (Late st Contact Info) Description 01/25/2023 Abstract [facility] MEDICINE [address] [place], [place] [phone] Yolie Desir MD [address] [place] [address] Social History Tobacco Use Types Packs/Day Years [...] on filedocumented in this encounter Care Teams Regional Trainer Relationship Specialty Start Date End Date Yolie Desir MD [address] [place], [place] [phone] PCP - General Family Medicine 10/26/19 documented as of this encounter
--- OUTSIDE RECORDS SUMMARY | 2025-03-25 13:47 | XMS_ITS | Encounter Summary ---
Author Organization [employer] Address [address] [place] [address] Care Team Providers Care Manager Furniture Name Role Phone Yolie Desir MD Primary Care Provider + Reason for Visit * Reason Comments Med Refill Encounter Details Date Type Department Care Team ([facility] st Contact Info) Description 12/22/2023 Refill [facility] MEDICINE [address] [place], [place] [phone] [facility] [address] [place] [address] Acute on chronic congestive heart failure, unspecified [...] documented as of this encounter Care Teams Manager Furniture Relationship Specialty Start Date End Date Yolie Desir MD [address] [place] [address] PCP - General Family Medicine 10/26/19 documented as of this encounter
--- OUTSIDE RECORDS SUMMARY | 2025-03-25 13:47 | XMS_ITS | Encounter Summary ---
Author Organization [employer] Address [address] [place] [address] Care Team Providers Care Herpetologist Name Role Phone Yolie Desir MD Primary Care Provider + Reason for Visit * Reason Comments Med Refill Encounter Details Date Type Department Care Team ([facility] st Contact Info) Description 11/14/2023 Refill [facility] [address] [place] [phone] Preet Blackwood MD [address] [place], [place] [phone] Social History Tobacco Use Types Packs/Day Years [...] documented as of this encounter Care Teams Herpetologist Relationship Specialty Start Date End Date Yolie Desir MD [address] [place] [phone] PCP - General Family Medicine 10/26/19 documented as of this encounter
--- OUTSIDE RECORDS SUMMARY | 2025-03-25 13:47 | XMS_ITS | Clinical Summary ---
Author Organization [employer] Address [address] [place] [address] Care Team Providers Care Medical Orderly Name Role Phone Boo Ashby MD Primary [...] EVERY 10 DAYS Active Continuous Blood Gluc Repair Weaver (Dexcom G6 sulfuric acid plant supervisor) device USE DIRECTED Active carvedilol (Coreg) [...] Omnipod use. Continue to follow up with Mirror Installer and change of medications. 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 I told pt to call systems mgr office to fu on prescription of CGM sensor Continue lantus 50 units + Omnipod insulin pod Pt to continue regular wound care at wound clinic for left DM ulcer continue laser therapy on right eye. She is legally blind in the left eye. order labs and FU with me in 3 months Assessment & Plan (01/23/2024 12:14 PM EST): Significantly improving, fu with [facility] wound clinic I will order supplies to [...] for the trip to and back from [place] to visit her son. Mass of axilla [...] AND PLAN FOR TYPE 2 DIABETES MELLITUS ([facility]) WRITTEN ON 11/04/2023 2:41 PM BY BOO ASHBY MD Uncontrolled Unclear if insulin pump is working properly Told patient to call endocrinology MARYLOU to see if pump can be replaced sooner vs. Move temporarily to sc Lantus + Humalog Assessment & Plan (01/08/2025 2:18 PM EST): >>ASSESSMENT AND PLAN FOR TYPE 2 DIABETES MELLITUS ([facility]) WRITTEN ON 08/02/2024 3:15 PM BY BOO ASHBY MD Controlled, last A1c on 01/2024 was at goal. I will do A1c at upcoming regular visit Patient had episode of hypoglycemia today, probably due to miscalculation of insulin dose adjustment. She will fu on Tuesday with voip network engineer. She received glucose load today and BS [...] I congratulated her for reaching out to systems mgr and compliance w/ medications I gave her information about diabetic diet, she's asking for more 1-1 power and recovery shift engineer coaching, so I gave her information about wt reduction programs in the area Continue close fu w/ systems mgr insulin pump + Ozempic Pt had intraocular [...] asthma, CHF vs other. Informed about the [facility] and visit ED, she request an [...] Encounters Date Type Department Care Team Description 03/24/2025 Refill [facility] MEDICINE [address] [place] [address] Boo Ashby MD Iron deficiency anemia due to chronic blood loss 02/27/2025 Refill [facility] MEDICINE [address] [place] [address] Boo Ashby MD Diabetic nephropathy associated with type 2 diabetes mellitus ([facility]); Epigastric pain 02/18/2025 1:30 PM EDT Office Visit [facility] MEDICINE [address] [place] [address] Xuan Lozada NP Acute cough (Primary Dx); Mild intermittent asthma without complication; Tiredness 02/18/2025 Orders Only GENERIC EXTERNAL DATA DEPARTMENT Provider, Generic External Data 02/18/2025 Travel 02/14/2025 Refill [facility] MED & PEDS [address] [place] [address] Boo Ashby MD 02/13/2025 Telephone [facility] MEDICINE [address] [place] [address] Boo Ashby MD ER Follow-up 02/11/2025 1:20 PM EDT Office Visit [facility] WALK-IN CENTER [address] [place] [phone] Xuan Lozada NP Dizziness (Primary Dx); Double vision; Cough in adult patient 02/08/2025 Refill [facility] MEDICINE [address] [place] [address] Boo Ashby MD 02/06/2025 Telephone [facility] MED & PEDS [address] [place] [address] Boo Ashby MD novolog 02/05/2025 Telephone [facility] MEDICINE [address] [place] [address] Boo Ashby MD Vicenta recall 02/01/2025 Population Health Risk Score [facility] (C3) Department [address] [place] [phone] Provider, Population Health Generic 01/29/2025 Refill [facility] MEDICINE [address] [place] [phone] Boo Ashby MD Diabetic nephropathy associated with type 2 diabetes mellitus (CMS/HCC) 01/08/2025 2:00 PM EST Office Visit [facility] MEDICINE [address] [place] [phone] Boo Ashby MD Diabetes mellitus type 2 with peripheral artery disease (CMS/HCC) (Primary Dx); Severe recurrent major depression without psychotic features (CMS/HCC); Mild intermittent asthma with acute exacerbation; Class 1 obesity due to excess calories with serious comorbidity and body mass index (BMI) of 31.0 to 31.9 in adult; Exercise counseling; Dietary counseling 01/08/2025 Travel 01/04/2025 Telephone [facility] MEDICINE [address] [place] [phone] Boo Ashby MD Chart prep 12/31/2024 Telephone [facility] MEDICINE [address] [place] [address] [phone] Boo Ashby MD 12/31/[address] [address] Boo Ashby MD Diabetic nephropathy associated with type 2 diabetes mellitus ([facility]/HCC) from Last 3 Months Immunizations Name Administration [...] 2:03 PM EDT) Creatinine, Urine 99.31 mg/dL [facility] Protein, Total, Random Urine <7 <12 mg/dL [facility] Protein/Creatin ine Ratio, Ur TNP <0.2 [facility] Comment:Unable to calculate urine protein creatinine ratio due tolow creatinine or protein result. 02/18/2025 2:03 PM EDT 02/18/2025 4:16 PM EDT Generic External Data Provider LAB URINE ORDERAB LES Final Result Performing Organization Address [facility]/ZIP Co de Phone Number [facility] [address] [place] [phone] * Vitamin D, 25-Hydroxy, Total, Immunoassay (02/18/2025 2:03 PM EDT) [facility] Vitamin D 25-OH Total 36.8 >30 ng/mL [facility] Comment: Health Based Reference Values*< 20 ??ng/mL ??Qfzinisce43-29 ng/mL ??Insufficient> 30 ??ng/mL ??Sufficient*Luis Felipe WATSON. [...] ORDERAB LES Final Result Performing Organization Address [facility] Co de Phone Number [facility] [address] [place] [phone] * TSH W/Reflex to FT4 (02/18/2025 2:03 PM EDT) Pathologist [facility] TSH reflex Free T4 2.28 0.32 - 4.0 uIU/mL [facility] Blood Venous blood specimen / Unknown 02/18/2025 2:03 PM EDT 02/18/2025 4:12 PM EDT Xuan Lozada ATHLETIC SHOE DESIGNER LAB BLOOD ORDERABLES Final Resu lt Performing Organization Address City/[facility]/ZIP Co de Phone Number [facility] [address] [place] [phone] * Creatinine, Serum (02/18/2025 2:03 PM EDT) [facility] Creatinine, Serum 0.93 0.5 - 1.4 mg/dL [facility] Estimated Glomerular Filt Rate >60 [facility] Comment:Chronic Kidney Disea se: Estimated GFR < 60 mL/min/1.66i4Swplli Kidney Disease: Estimated GFR < 15 mL/min/1.73m2 02/18/2025 2:03 PM EDT 02/18/2025 4:12 PM EDT Generic External Data Provider LAB BLOOD ORDERAB LES Final Result Performing Organization Address [facility] Co de Phone Number [facility] [address] [place] [phone] * (ABNORMAL) CBC auto differential (02/18/2025 2:03 PM EDT) Pathologist [facility] White Blood Count 8.4 4.8 - 10.8 X10*3/uL [facility] Red Blood Count 3.89(L) 4.20 - 5.50 X10*6/uL [facility] Hemoglobin 11.8(L) 12.0 - 16.0 g/dl [facility] Hematocrit 35.5(L) 37.0 - 47.0 % [facility] Mean Corpuscular Volume 91.3 80.0 - 98.0 fL [facility] Mean Corpuscular Hemoglobin 30.3 27.0 - 33.0 pg [facility] Mean Corpuscular HGB Conc 33.2 31.0 - 35.0 g/dl [facility] Red Cell Distribution Width 13.3 11.0 - 16.0 % [facility] Platelet Count 264 160 - 400 X10*3/uL [facility] Mean Platelet Volume 11.5 9.4 - 12.3 fL [facility] Neutrophils Percent Auto 60.5 45 - 73 % [facility] Imm Gran Pct Auto 0.2 0.0 - 0.4 % [facility] Lymphocytes Percent Auto 25.0 20 - 40 % [facility] Monocytes Percent Auto 8.0 2 - 11 % [facility] Eosinophils Percent Auto 6.1(H) 0 - 4 % [facility] Basophils Percent Auto 0.2 0 - 2 % [facility] NRBC Pct Auto 0.0 0.0 - 0.2 /100WBC [facility] Neutrophils Absolute Auto 5.1 2.0 - 8.3 x10*3/uL [facility] Imm Gran Abs Auto 0.02 0.00 - 0.03 X10*3/uL [facility] Lymphocytes Absolute Auto 2.1 1.2 - 4.9 X10*3/uL [facility] Monocytes Absolute Auto 0.7 0.1 - 1.2 X10*3/uL [facility] Eosinophils Absolute Auto 0.5(H) 0.0 - 0.4 X10*3/uL [facility] Basophils Absolute Auto 0.0 0.0 - 0.2 X10*3/uL [facility] NRBC Abs Auto 0.000 0.0 - 0.012 X10*3/uL [facility] 02/18/2025 2:03 PM EDT 02/18/2025 4:12 PM EDT us Generic External Data Provider LAB BLOOD ORDERAB LES Final Result [facility] [address] [place] [phone] * (ABNORMAL) BUN (Blood Urea Nitrogen) (02/18/2025 2:03 PM EDT) Urea Nitrogen (BUN) 21(H) 9 - 16 mg/dL [facility] 02/18/2025 2:03 PM EDT 02/18/2025 4:12 PM EDT Generic External Data Provider LAB BLOOD ORDERAB LES Final Result Performing Organization Address [facility]/ZIP Co de Phone Number [facility] [address] [place] [phone] * PTH, Intact Without Calcium (02/18/2025 2:03 PM EDT) Parathyroid Hormone, Intact 39.6 8.7 - 77.1 pg/mL [facility] 02/18/2025 2:03 PM EDT 02/18/2025 4:12 PM EDT Generic External Data Provider LAB BLOOD ORDERAB LES Final Result Performing Organization Address [facility] Co de Phone Number [facility] [address] [place] [phone] * (ABNORMAL) Calcium (02/18/2025 2:03 PM EDT) Calcium 10.8(H) 8.4 - 10.2 mg/dL [facility] 02/18/2025 2:03 PM EDT 02/18/2025 4:12 PM EDT Generic External Data Provider LAB BLOOD ORDERAB LES Final Result Performing Organization Address [facility] Co de Phone Number [facility] [address] [place] [phone] * (ABNORMAL) Electrolyte Panel (02/18/2025 2:03 PM EDT) Sodium 140 135 - 145 mmol/L [facility] Potassium 4.3 3.3 - 5.1 mmol/L [facility] Chloride 106 96 - 108 mmol/L [facility] Carbon Dioxide 27 22 - 29 mmol/L [facility] Anion Gap 11(L) 12 - 20 [facility] 02/18/2025 2:03 PM EDT 02/18/2025 4:12 PM EDT Generic External Data Provider LAB BLOOD ORDERAB LES Final Result Performing Organization Address [facility]/ZIP Co de Phone Number [facility] [address] [place] [phone] * Influenza B (ID NOW Rapid Molecular) (02/11/2025 1:46 PM EDT) [facility] Influenza B Negative Negative, Indeterminate [facility] Swab 02/11/2025 1:46 PM EDT Xuan Lozada NP POINT OF CARE TEST ENTER/EDIT O RDERABLES Final Result Performing Organization Address [facility] Co de Phone Number [facility] [address] [place] [phone] * Influenza A (ID NOW Rapid Molecular) (02/11/2025 1:46 PM EDT) [facility] Influenza A Negative Negative, Indeterminate [facility] Swab 02/11/2025 1:46 PM EDT Xuan Hughesm ATHLETIC SHOE DESIGNER POINT OF CARE TEST ENTER/EDIT O RDERABLES Final Result Performing Organization Address [facility] Co de Phone Number [facility] [address] [place] [phone] * POCT Rapid COVID Ag (02/11/2025 1:44 PM EDT) [facility] Rapid COVID Ag Negative Swab 02/11/2025 1:44 PM EDT Xuan Lozada NP POINT OF CARE TEST ENTER/EDIT O RDERABLES Final Result * (ABNORMAL) POCT HGB A1C (01/08/2025 2:16 PM EST) Pathologist [facility] Hemoglobin A1C 7.5(A) 4.0 - 6.0 % QC Media Lot # [id number] Lot# Expiration Date 062 Blood 01/08/2025 2:16 PM EST Boo Ashby MD POINT OF CARE TEST ENTER /EDIT ORDERABLES Final Result * POCT Glucose (01/08/2025 2:14 PM EST) Pathologist [facility] Glucose Blood, POC 154 60 - 200 mg/dL QC Media Lot # [id number] Lot# Expiration Date [id number] Blood Capillary blood specimen / Unknown 01/08/2025 2:14 PM EST Boo Ashby MD POINT OF CARE TEST ENTER /EDIT ORDERABLES Final Result * (ABNORMAL) Lipid Panel, Standard (06/25/2024 10:51 AM EDT) Pathologist [facility] Triglycerides 186(H) <150 mg/dL [facility] Comment:Desirable Triglyceri de: less than 150 mg/dLBorderline High Triglyceride 150-199 mg/dLHigh Triglyceride: 200-499 mg/dLVery High Triglyceride: greater than or equal to 5OO mg/dL Cholesterol 246(H) <200 mg/dL [facility] Comment:Desirable Cholestero l: less than 200 mg/dLBorderline High Cholesterol: 200-239 mg/dLHigh Cholesterol: greater than 239 mg/dL LDL Cholesterol Calculated 163(H) <100 mg/dL [facility] Comment:Desirable LDL: less than 100 mg/dLNear Optimal/Above Optimal LDL: 110- 129 mg/dLBorderline High LDL: 130-159 mg/dLHigh LDL: 160-189 mg/dLVery High LDL: greater than or equal to 190 mg/dL HDL Cholesterol 46 >40 mg/dL [facility] Comment:Desirable HDL: great er than 40 mg/dL Note: This HDL assay may give artificially low results in patients with liver disease. 06/25/2024 10:5 1 AM EDT 06/25/2024 10:51 AM EDT us Generic External Data Provider LAB BLOOD ORDERAB LES Final Result [facility] [address] [place] [phone] * BI Mammogram Screening Tomosynthesis Bilateral (04/03/2024 3:27 PM EDT) Anatomical Region Laterality Modality Breast Bilateral Mammography 04/03/2024 3:27 PM EDT Narrative 05/04/2024 5:45 AM EDT ? [facility] [place] ? [address] ?[place] [address] ? Mammography Report ? Signed ? Patient: Melissa Barnett ?MR#: ?? [id number] ? : 1975 ?Acct:[id number] ? Age/Sex: 48 / F ?ADM Date: 05/14/24 ? Loc: HO.MAMMO ? Attending Dr: Boo Ashby MD ? Ordering Physician: Boo Ashby MD ?Results: 1Ne ?? gative ? Date of Service: 05/14/24 ?Follow Up: 1 Year From Orig ?? inal Mammogram ? Procedure(s): MM tomosynthesis screening BI ?? Accession Number(s): [id number] ? cc: Boo Ashby MD ? EXAMINATION: [...] 0542 ? DD/ 1527 ? TD/TT: ? Chute Worker: ? Procedure Note Rina, Image - 05/04/2024 [facility] [address] [place] [address] Mammography Report Signed Patient: Juan Luis Barnett#: [id number] : 1975Acct:[id number] Age/Sex: 48 / FADM Date: 04/03/24 Loc: HO.MAMMO Attending Dr: Boo Ashby MD Ordering Physician: Boo Ashby MDResults: 1Ne gative Date of Service: 04/03/24Follow Up: 1 Year From Orig inal Mammogram Procedure(s): MM tomosynthesis screening BI Accession Number(s): [id number] cc: Boo Ashby MD EXAMINATION: MM SCREENING [...] in OV> 05/04/24 0542 DD/ 1527 TD/TT: Chute Worker: Boo Ashby MD IM BI PROCEDURES Edited Result - Final * (ABNORMAL) HPV Genotypes 16,18/45 (03/15/2023 11:10 AM EDT) HPV 16 RNA NOT DETECTED NOT DETECTED [employer] HPV 18/45 RNA DETECTED(A) NOT DETECTED [employer] Comment: Methodology: Cement Or Concrete Finishing Supervisor Mediated Amplification Cervical sources are required for HPV testing. If a vaginal source from a patient who has had a total hysterectomy with removal of cervix was submitted, please contact the testing laboratory for alternative testing options. 03/15/2023 11:1 0 AM EDT 03/16/2023 6:23 AM EDT Boo Ashby MD LAB CYTOLOGY ORDERABLES Final Result [facility] [address], [place] [phone] [employer] [facility] [address] [place] [phone] * Pap Smear (03/15/2023) HM Pap smear NIL HPV+ Historical Provider HEALTH MAINTENANCE Final Result from Last 3 Months or Most Recently Relevant to Health Maintenance Insurance [facility] C3 Care Teams Medical Orderly Relationship Specialty Start Date End Date Boo Ashby MD [address] [place] [phone] PCP - General Family Medicine 10/26/19
--- OUTSIDE RECORDS SUMMARY | 2025-03-25 13:47 | XMS_ITS | Clinical Summary ---
Author Organization [facility] Address [address] [place] [address] Phone Care Team Providers Care Senior Principal Software Engineer Name Role Phone Yolie Desir MD Primary Care Provider [phone] Allergies Active Allergy Reactions Criticality Noted Date [...] 09/19/2017, 12/10/2015, Additional history exists Insurance [place] Care Teams Senior Principal Software Engineer Relationship Specialty Start Date End Date Yolie Desir MD [address] [place] [address] PCP - General Internal Medicine 04/22/21
--- OUTSIDE RECORDS SUMMARY | 2025-03-25 13:47 | XMS_ITS | Encounter Summary ---
Author Organization [employer] [facility] Address [address] [place] [address] Care Team Providers Care Receiving Barn Custodian Name Role Phone Yolie Desir MD Primary Care Provider + Reason for Visit * Reason Onset Date Comments Prior Authorization 10/28/2022 Encounter Details Date Type Department Care Team ([facility] st Contact Info) Description 10/28/2022 Telephone [facility] MEDICINE [address] [place], [place] [phone] Yolie Desir MD [address] [place], [place] [phone] Prior Authorization Social History Tobacco Use Types [...] on filedocumented in this encounter Care Teams Receiving Barn Custodian Relationship Specialty Start Date End Date Yolie Desir MD [address] [place] [address] PCP - General Family Medicine 10/26/19 documented as of this encounter
== END 2025-03-25 13:15 | disposition home or self-care (01) ==
LOC: HO.ENCR 12:23
PROVIDERS: PCP Internal Medicine; Visit Provider Registered Nurse Diabetes Educator
DX: E11.29 Type 2 diabetes mellitus with other diabetic kidney complication (principal)

== ENCOUNTER → 2025-03-25 12:22 | Outpatient (BNVA) | payer MEDICAID, SELFPAY | PROVIDERS: PCP Internal Medicine; Visit Provider Registered Nurse Diabetes Educator | DX: E11.29 Type 2 diabetes mellitus with other diabetic kidney complication (principal) | CPT/HCPCS: 99211 ==

== ENCOUNTER 2025-03-28 15:09 | Outpatient (AMB) | payer MEDICAID, SELFPAY ==
--- NOTE | 2025-03-28 09:32 | A.OFFVIS_ITS ---
Vital Signs 03/28/25 15:17 Height 5 ft 7 in Weight 200 lb 9.93 oz BMI 31.4 BP 162/84 H Pulse 85 Pulse Source Pulse Oximeter Pulse Oximetry (%) 97 Oxygen Delivery Method Room Air Intake Visit Reasons: T2DM Intake Note: Patient presents today for a follow-up on Type 2 Diabetes Mellitus: Last Diabetic eye exam was on: 09/2024 Last Podiatry exam was on: Weekly appointments with Dr Gonzalez for open ulcer. Most recent HbA1c: 8.3%, 03/28/2025 Random Glucose- 198 mg/dL, Today Checker Cashier Required: Yes Checker Cashier Language: Ref[employer]iger[employer] Services: Checker Cashier Present Checker Cashier Name: SALUD Brock/MARY BETH JONES Information Interpreted: non-clinical & clinical Allergies sulfamethoxazole [From BACTRIM] Allergy (Severe, Verified 03/15/25 13:16) FACIAL SWELLING trimethoprim [From BACTRIM] Allergy (Severe, Verified 03/15/25 13:16) FACIAL SWELLING levofloxacin [From LEVAQUIN] Allergy (Intermediate, Verified 03/15/25 13:16) REDNESS, SWELLING ITCHINESS AT IV SITE HPI Comments Details: Patient is 49 yo female with DM type 2 diagnosed in approximately 1987, here for follow up management of diabetes. She was last seen on 10/24/24. most recent A1c 03/28/25 % 8.8% 10/24/24, 8.2% 08/17/24 up from 7% 3 months ago but over all down from her usual trend. She was on steroids towards the end of February. Currently on an Omnipod dash pump. Takes Ozempic 0.5 mg weekly Dexcom average glucose: 284 14 day continuous glucose monitor report reviewed Glucose Managment indicator 9.1 % Days with CGM data 35% % TIme in ranges: Sixty-three % very high (above 250) 16 % high ?(181-250) 19 % in range ?(70-180] 1 % low (69-55) 1 % ?very low (below 54) Interpretation: readings overall high with some post prandial spikes She has in auto mode only 46% of the time 54% manual She is entering in only 35 carb g daily Total daily dose 40 units 77% basal 29.9 23% bolus 9.1 29.9 units Basal rate(s) (units/hour) : 12 AM? to 12 AM 1.4 units / hr Bolus setting Insulin Carbohydrate Ratio (s) 12 AM? to 12 PM? 1:4.5 12 PM to 12 AM? 1:3.5 Correction Factor / Sensitivity Factor 12 AM? to 12 PM? 1:25 Active Insulin Time:?4 hours Has retinopathy: Last eye examination 01/04/24 Has neuropathy. Symptoms: + numbness and tingling in legs. She is on gabapen tin. Has Nephropathy: 07/19/24 microalbumin 184 eGFR>44 last seen by Nephrology in July at which time Noel inhibitor dose was increased. Has CAD not on statin. Takes Zetia last LDL 163 on 06/25/2024 Hypoglycemia: rare hypoglycemia Hyperglycemia: denies polyuria, nocturia 2-3x/night [facility] Medical History (Updated 02/26/25 @ 07:32 by Iman Joy NP) Asthma DEVYN (obstructive sleep apnea) Osteomyelitis Wound of left foot DM2 (diabetes mellitus, type 2) Hyperlipidemia LDL goal <100 CAD (coronary artery disease) Retinopathy Anxiety Depression Type 2 diabetes mellitus with hyperglycemia, with long-term current use of insulin Proteinuria Type 2 diabetes mellitus with other diabetic kidney complication Essential hypertension Obesity due to excess calories Type 2 diabetes mellitus with diabetic polyneuropathy Surgical History Hx of breast biopsy Hx of section Hx of tubal ligation Hx of coronary artery bypass surgery Family History Maternal Grandmother Diabetes Cervical cancer Brother Diabetes Sister Breast cancer Social History Household Members: Family Household Members Other:: 1 Housing: Apartment Alcohol intake: never Patient Tobacco Use Status: Never used Tobacco Second Hand Smoke Exposure: No service: No Current occupational status: unemployed Female Reproductive History Menstrual Age of Menarche: 11 Physical Exam Vital Signs: Last Vital Signs Pulse 85 03/28/25 15:17 BP 162/84 H 03/28/25 15:17 Pulse Ox 97 03/28/25 15:17 Oxygen Delivery Method Room Air 03/28/25 15:17 BMI result Body Mass Index 31.4 Results Reviewed Results Reviewed: Laboratory Last Values Glucose (Clinic) 198 mg/dL (60-115) H 03/28/25 15:22 Assessment & Plan Assessment & Plan Orders: Orders AMB Hemoglobin A1c Today E11.29 - Type 2 diabetes mellitus with other diabetic kidney complication Coding
[2025-03-28 15:17] VITALS: BP 162/84; PULSE 85; O2SAT 97; BMI 31.4
[2025-03-28 15:27] LABS: Glucose, Whole Blood 198 mg/dL (60-115)
--- OUTSIDE RECORDS SUMMARY | 2025-03-28 15:42 | XMS_ITS | Encounter Summary ---
Author Organization [employer] Address [address] [facility] [address] [place] [address] Care Team Providers Care Assembly Machine Offbearer Name Role Phone Yolie Desir MD Primary Care Provider + Reason for Visit * Reason Comments Med Refill Encounter Details Date Type Department Care Team (Late st Contact Info) Description 11/29/2023 Refill [facility] 230 [place], [place] [phone] Axel Graf MD [address] [place] [address] Diabetic nephropathy associated with type 2 diabetes mellitus ([facility]/HCC) Social History Tobacco Use Types Packs/Day Years Used Date Smoking Tobacco: Never Smokeless Tobacco: Never Alcohol Use Standard Drinks/Week Comments Never 0 (1 standard drink = 0.6 oz pur e alcohol) Depression Answer Date Recorded Patient Health Questionnaire-9 Score 8 02/10/2023 Housing Stability Answer Date Recorded What is your housing situation today? I have felicitysean jin 09/12/[address] you [...] nephropathy associated with type 2 diabetes mellitus (CMS/[facility]) documented in this encounter Additional Health Concerns Assessment Noted Time PHQ-9 Depression Total Score: 8 02/11/20 23 9:24 AM EDT documented as of this encounter Care Teams Assembly Machine Offbearer Relationship Specialty Start Date End Date Yolie Desir MD [address] [place] [phone] PCP - General Family Medicine 10/26/19 documented as of this encounter
--- OUTSIDE RECORDS SUMMARY | 2025-03-28 15:42 | XMS_ITS | Encounter Summary ---
Author Organization [employer] Address 75 [facility] 7[address] [place] [address] Care Team Providers Care Naval Gunfire Spotter Name Role Phone Yolie Desir MD Primary Care Provider + Reason for Visit * Reason Comments Med Refill Encounter Details Date Type Department Care Team ([facility] st Contact Info) Description 11/14/2023 Refill [facility] [address] [place] [address] [phone] Preet Blackwood MD 230 [place], [place] [phone] Social History Tobacco Use Types Packs/Day Years [...] documented as of this encounter Care Teams Naval Gunfire Spotter Relationship Specialty Start Date End Date Yolie Desir MD [address] [place] [phone] PCP - General Family Medicine 10/26/19 documented as of this encounter
--- OUTSIDE RECORDS SUMMARY | 2025-03-28 15:42 | XMS_ITS | Encounter Summary ---
Author Organization [employer] Address 75 [facility] [address] 7[address] [place] [address] Care Team Providers Care Profile Stitching Machine Operator Name Role Phone Yolie Desir MD Primary Care Provider + Reason for Visit * Reason Comments Med Refill Encounter Details Date Type Department Care Team (Late st Contact Info) Description 03/27/2025 Refill [facility] MEDICINE 230 [place], [place] [phone] Yolie Desir MD 230 [place], [place] [phone] Diabetic nephropathy associated with type 2 diabetes mellitus ([facility]) Social History Tobacco Use Types Packs/Day Years [...] documented as of this encounter Care Teams Profile Stitching Machine Operator Relationship Specialty Start Date End Date Yolie Desir MD [address] [place] [phone] PCP - General Family Medicine 10/26/19 documented as of this encounter
--- OUTSIDE RECORDS SUMMARY | 2025-03-28 15:42 | XMS_ITS | Encounter Summary ---
Author Organization [employer] Address [address] [facility] [address] 7[address] [place] [address] Care Team Providers Care Relay Repairer Name Role Phone Yolie Desir MD Primary Care Provider + Reason for Visit * Reason Comments Med Refill Encounter Details Date Type Department Care Team ([facility] st Contact Info) Description 12/26/2023 Refill [facility] MEDICINE 230 [place], [place] [phone] [facility] 230 [place] [address] Acute on chronic congestive heart failure, unspecified [...] documented as of this encounter Care Teams Relay Repairer Relationship Specialty Start Date End Date Yolie Desir MD 230 [place] [address] PCP - General Family Medicine 10/26/19 documented as of this encounter
--- OUTSIDE RECORDS SUMMARY | 2025-03-28 15:42 | XMS_ITS | Encounter Summary ---
Author Organization [employer] Address [address] [facility] [address] 7t [place] [address] Care Team Providers Care Education Finance Processor Name Role Phone Yolie Desir MD Primary Care Provider + Encounter Details Date Type Department Care Team (Late st Contact Info) Description 03/28/2025 Orders Only GENERIC EXTERNAL DATA DEPARTMENT Provider, [...] Associated Diagnosis Comments GLUCOSE, WHOLE BLOOD Routine 03/28/2025 3:22 PM EDT documented in this encounter Results * (ABNORMAL) Glucose, Whole Blood (03/28/2025 3:22 PM EDT) Glucose, Whole Blood 198(H) 60 - 115 mg/dL [facility] Comment:METER #: [id number] 5Testing performed in the Endocrinology Department [address] , [address], [facility]. 03/28/2025 3:22 PM EDT 03/28/2025 3:27 PM EDT us Generic External Data Provider LAB BLOOD ORDERAB LES Final Result [facility] [address] [place] [address] [phone] documented in this encounter Visit Diagnoses Not on filedocumented in this encounter Additional Health Concerns Assessment Noted Time PHQ-9 Depression Total Score: 8 02/11/20 23 9:24 AM EDT documented as of this encounter Care Teams Education Finance Processor Relationship Specialty Start Date End Date Yolie Desir MD [address] [place] [phone] PCP - General Family Medicine 10/26/19 documented as of this encounter
--- OUTSIDE RECORDS SUMMARY | 2025-03-28 15:42 | XMS_ITS | Encounter Summary ---
Author Organization [employer] Address [address] [facility] [address]t [place] [address] Care Team Providers Care Licensed Mortician Name Role Phone Yolie Desir MD Primary Care Provider + Reason for Visit * Reason Comments Med Refill Encounter Details Date Type Department Care Team (Late st Contact Info) Description 12/22/2023 Refill [facility] 230 [place], [place] [phone] [facility] [address] [place] [address] Acute on chronic congestive heart failure, unspecified [...] documented as of this encounter Care Teams Licensed Mortician Relationship Specialty Start Date End Date Yolie Desir MD 230 [place] [address] PCP - General Family Medicine 10/26/19 documented as of this encounter
--- OUTSIDE RECORDS SUMMARY | 2025-03-28 15:42 | XMS_ITS | Clinical Summary ---
Author Organization 175 [facility] Address [address] [place] [address] Phone Care Team Providers Care Cook Fry Name Role Phone Yolie Desir MD Primary Care Provider Allergies Active Allergy Reactions Criticality Noted Date Comments Levofloxacin 08/24/2017 Sulfamethoxazole-Trimethopri m Other 08/24/2017 Macular Edema per [facility] Notes Trimethoprim 04/13/2021 Medications gabapentin (NEURONTIN) 100 mg capsule Take [...] Chronic sinusitis 09/28/2024 CHF (congestive heart failure) ([facility] V24, [facility] V28) 09/28/2024 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 ([facility] V24, [facility] V28) 09/28/2024 Diabetic ulcer of left midfo ot associated with type 2 diabetes mellitus, with fat layer exposed ([facility] V24, [facility] V28) 09/28/2024 Encounters Date Type Department Care Team Description 03/25/2025 3:30 PM EDT Office Visit Orthopedic Surgery [facility] [address] [phone] Dusty Gonzalez, DPM Ulcer of toe of left foot, with necrosis of bone ([facility] V24, [facility] V28) (Primary Dx); Follow-up exam; Ulcer of toe of right foot, with fat layer exposed ([facility] V24, [facility] V28) 02/11/2025 4:00 PM EDT - 02/11/2025 9:[address] [facility] Emergency [address] [place] [phone] Dehydration (Primary Dx); Mild intermittent asthma without complication Discharge Disposition: Home or Self Care 01/09/2025 3:30 PM EST Office Visit Orthopedic [facility] [address] [phone] Dusty Gonzalez DPM Xerosis of skin (Primary Dx); Ulcer of toe of left foot, with fat layer exposed ([facility] V24, [facility] V28); Metatarsalgia of both feet; Type II diabetes mellitus with peripheral circulatory disorder ([facility] V24, [facility] V28); Diabetic mononeuropathy simplex ([facility] V24, [facility] V28) from Last 3 Months Medical History Medical History Date Comments Diabetes mellitus ([facility] V24, [facility] V28) Social History [...] Care Team (Late st Contact Info) Description 04/02/2025 8:45 AM EDT Office Visit Orthopedic [facility] [place] [address] [phone] Dusty Gonzalez DPM [address] [phone] Health Maintenance Due Date Last Done Comments [...] Procedure Name Priority Date/Time Associated Diagnosis Comments XR FOOT 3+ VIEWS LEFT Routine 03/25/2025 3:14 PM EDT Follow-up exam ECG ANNOTATED 02/13/2025 XR CHEST 2 VIEWS [...] Recently Relevant to Health Maintenance Results * XR Foot 3+ Views Left (03/25/2025 3:14 PM EDT) Anatomical Region Laterality Modality Lower Extremities, Foot Left Computed Radiography Narrative 03/25/2025 4:19 PM EDT Left foot 3 views Degenerative changes of the 4th, 3rd and 5th metatarsal bases of the left foot articulating with the cuboid mild cuneiform degenerative osteolytic changes lateral view us Dusty Gonzalez DPM IMG XR PROCEDURES Final R esult * ECG-Annotated (02/13/2025) us Provider Onbase ECG ORDERABLES Final Result * XR Chest 2 Views (02/11/2025 8:04 PM EDT) Anatomical Region Laterality Modality Body Radiographic Ritika ging 02/12/2025 9:09 AM EDT Impressions 02/12/2025 9:10 AM EDT Impression: No active pulmonary process identified. Telerad RASHID ([id number]) -------- FINAL REPORT -------- Dictated By: Tawanna Knott Dictated Date: 02/12/2025 09:09 ET Assigned Physician: Tawanna Knott Reviewed and Electronically Signed By: Tawanna Knott Signed Date: 02/12/2025 09:10 ET Workstation ID: [id number] Transcribed By: Self Edit Transcribed Date: 02/12/2025 [...] No active pulmonary process identified. Telerad RASHID ([id number]) -------- FINAL REPORT -------- Dictated By: Tawanna Knott Dictated Date: 02/12/2025 09:09 ET Assigned Physician: Tawanna Knott Reviewed and Electronically Signed By: Tawanna Knott Signed Date: 02/12/2025 09:10 ET Workstation ID: [id number] Transcribed By: Self Edit Transcribed Date: 02/12/2025 09:09 ET us Pepe MIKE IMG XR PROCEDURES Final Resu lt * (ABNORMAL) Urinalysis with reflex microscopic (02/11/2025 7:54 PM EDT) Specific Dairy Urine 1.013 1.003 - 1.030 LAB URINALYSIS - AUTOMATED METHOD 02/11/2025 8:40 PM EDT [facility] pH, Urine 6.0 5.0 - 8.0 pH LAB URINALYSIS - AUTOMATED METHOD 02/11/2025 8:40 PM [facility] Leukocytes, Urine Negative Negative LAB URINALYSIS - AUTOMATED METHOD 02/11/2025 8:40 PM [facility] Nitrite, Urine Negative Negative LAB URINALYSIS - AUTOMATED METHOD [facility]25 8[facility] Protein, Urine Negative <=Trace mg/dL LAB URINALYSIS - AUTOMATED METHOD 02/11/2025 8:40 PM [facility] Glucose, Urine Negative Negative mg/dL LAB URINALYSIS - AUTOMATED METHOD 02/11/2025 8:40 PM [facility] Ketones, Urine Negative Negative mg/dL LAB URINALYSIS - AUTOMATED METHOD 02/11/2025 8:40 PM EDT [facility] Urobilinogen , Urine 0.2 0.2 - 1.0 mg/dL LAB URINALYSIS - AUTOMATED METHOD 02/11/2025 8:40 PM EDT [facility] Bilirubin, Urine Negative Negative LAB URINALYSIS - AUTOMATED METHOD 02/11/2025 8:40 PM EDT [facility] Blood, Urine Moderate(A) Negative LAB URINALYSIS - AUTOMATED METHOD 02/11/2025 8:40 PM EDT [facility] RBC, Urine 12.8(H) 0 - 4 /HPF LAB URINALYSIS - AUTOMATED METHOD 02/11/2025 8:40 PM EDT [facility] WBC, Urine 2.1 0 - 4 /HPF LAB URINALYSIS - AUTOMATED METHOD 02/11/2025 8:40 PM EDT [facility] Squamous Epithelial, Urine 17 0 - 60 /LPF LAB URINALYSIS - AUTOMATED METHOD 02/11/2025 8:40 PM EDT [facility] Bacteria, Urine Negative Negative /HPF LAB URINALYSIS - AUTOMATED METHOD 02/11/2025 8:40 PM T [facility] Hyaline Casts, Urine 0.4 0 - 3 /LPF LAB URINALYSIS - AUTOMATED METHOD 02/11/2025 8:40 PM EDT [facility] Urine Urine specimen obtained by clean catch procedure / Unknown Non-blood Collection / Unknown 02/11/2025 7:54 PM EDT 02/11/2025 8:05 PM EDT us Pepe MIKE LAB URINE ORDERABLES Final R esult [facility] [address] [place] [address], [place] [phone] * ECG 12 lead (02/11/2025 5:07 PM EDT) Ventricular Rate ECG 83 BPM GEMUSE Atrial Rate 83 BPM GEMUSE P-R Interval 154 ms GEMUSE QRS Duration 84 ms GEMUSE Q-T Interval 364 ms GEMUSE QTc 427 ms GEMUSE P Wave [place] 19 degrees GEMUSE R [place] 22 degrees GEMUSE T [place] 128 degrees GEMUSE ECG Interpretation Normal sinus rhythm Nonspecific ST and T wave abnormality Abnormal ECG No previous ECGs available Confirmed by MD Kelsey Christopher ([id number]) on 02/12/2025 2:11:56 AM GEMUSE 02/11/2025 5:07 [...] Vitreous hemorrhage is not excluded. Telerad RASHID ([id number]) -------- FINAL REPORT -------- Dictated By: Tawanna Knott Dictated Date: 02/11/2025 16:58 ET Assigned Physician: Tawanna Knott Reviewed and Electronically Signed By: Tawanna Knott Signed Date: 02/11/2025 17:01 ET Workstation ID: [id number] Transcribed By: Self Edit Transcribed Date: 02/11/2025 16:58 ET Narrative 02/11/2025 5:01 PM EDT History: Dizziness. Weakness. Comparison: No comparison imaging at this institution. Technique: Contiguous axial images were obtained at 2.5 mm intervals through the posterior fossa and at 5 mm intervals through the remainder of the brain without intravenous contrast. DLP: 808.85 mGy/cm GE LightSpeed VCT Iterative reconstruction technique Findings: The ventricular [...] brain without intravenous contrast. DLP: 808.85 [facility]Gy/[facility] Iterative reconstruction technique Findings: The ventricular [...] correlation is recommended.Vitreous hemorrhage is not excluded. [employer] [place] ([id number]) -------- FINAL REPORT -------- Dictated By: Tawanna Knott Dictated Date: 02/11/2025 16:58 ET Assigned Physician: Tawanna Knott Reviewed and Electronically Signed By: Tawanna Knott Signed Date: 02/11/2025 17:01 ET Workstation ID: [id number] Transcribed By: Self Edit Transcribed Date: 02/11/2025 16:58 ET us Pepe MIKE IMG CT PROCEDURES Final Resu lt * (ABNORMAL) CBC auto differential (02/11/2025 4:37 PM EDT) [facility] WBC 8.8 4.8 - 10.8 K/mcL LAB HEMETOLOGY METHOD 02/11/2025 5:04 PM EDT [facility] RBC 4.10 3.80 - 4.80 M/mcL LAB HEMETOLOGY METHOD 02/11/2025 5:04 PM EDT [facility] Hemoglobin 12.3 11.5 - 16.0 g/dL LAB HEMETOLOGY METHOD 02/[facility]2025 5[facility] Hematocrit 37.1 35.0 - 47.0 % LAB HEMETOLOGY METHOD 02/11/2025 5:[facility] PM [facility] MCV 91.4 79.0 - 98.0 FL LAB HEMETOLOGY METHOD 02/11/2025 5:04 PM [facility] MCH 30.3 27.0 - 32.0 pcg LAB HEMETOLOGY METHOD 02/11/2025 5:[facility] MCHC 33.2 32.0 - 37.0 g/dL LAB HEMETOLOGY METHOD 02/11/2025 5:04 [facility] RDW 13.2 11.0 - 15.0 % LAB HEMETOLOGY METHOD 02/11/2025 5:04 PM [facility] Platelets 291 130 - 400 K/mcL LAB HEMETOLOGY METHOD 02/11/2025 5:[facility] MPV 10.6 7.0 - 11.0 FL LAB HEMETOLOGY METHOD 02/11/2025 5:[facility] NRBC 0.0 <1.0 % LAB HEMETOLOGY METHOD 02/11/2025 5:04 PM [facility] NRBC Absolute 0.00 <0.10 K/mcL LAB HEMETOLOGY METHOD 02/11/2025 5:04 PM [facility] Neutrophils Relative 51.5 % LAB HEMETOLOGY METHOD 02/11/2025 5:04 PM [facility] Lymphocytes Relative 34.9 % LAB HEMETOLOGY METHOD 02/11/2025 5:04 PM [facility] Monocytes Relative 5.6 % LAB HEMETOLOGY METHOD 02/11/2025 5:04 PM [facility] Eosinophils Relative 7.0 % LAB HEMETOLOGY METHOD 02/11/2025 5:04 PM [facility] Basophils Relative 0.5 % LAB HEMETOLOGY METHOD 02/11/2025 5:04 PM [facility] Immature Granulocytes Relative 0.5 % LAB HEMETOLOGY METHOD 02/11/2025 5:04 PM [facility] Neutrophils Absolute 4.52 1.50 - 7.00 K/mcL LAB HEMETOLOGY METHOD 02/11/2025 5:04 PM [facility] Lymphocytes Absolute 3.06 1.00 - 5.00 K/mcL LAB HEMETOLOGY METHOD 02/11/2025 5:04 PM [facility] Monocytes Absolute 0.49 0.20 - 1.00 K/mcL LAB HEMETOLOGY METHOD 02/11/2025 5:04 PM [facility] Eosinophils Absolute 0.61(H) 0.00 - 0.50 K/mcL LAB HEMETOLOGY METHOD 02/11/2025 5:04 PM [facility] Basophils Absolute 0.04 0.00 - 0.20 K/mcL LAB HEMETOLOGY METHOD 02/11/2025 5:04 PM [facility] Immature Granulocytes Absolute 0.04(H) 0.00 - 0.03 K/mcL LAB HEMETOLOGY METHOD 02/11/2025 5:04 PM EDT [facility] Blood Venous blood specimen / Unknown Venipuncture / Unknown 02/11/2025 4:37 PM EDT 02/11/2025 4:51 PM EDT Tahir Burns MD LAB BLOOD ORDERABLES Final Resu lt Performing Organization Address City/[facility]/ZIP Co de Phone Number [facility] [address] [place] [address], [place] [phone] * Magnesium (02/11/2025 4:37 PM EDT) Magnesium 2.0 1.9 - 2.6 mg/dL LAB CHEMISTRY METHOD 02/11/2025 5:20 PM EDT [facility] Blood Venous blood specimen / Unknown Venipuncture / Unknown 02/11/2025 4:37 PM EDT 02/11/2025 4:51 PM EDT Tahir Burns MD LAB BLOOD ORDERABLES Final Resu lt Performing Organization Address [facility] de Phone Number [facility] [address] [place] [address], [place] [phone] * Lipase (02/11/2025 4:37 PM EDT) Lipase 18 13 - 75 unit/L LAB CHEMISTRY METHOD 02/11/2025 5:20 PM EDT [facility] Blood Venous blood specimen / Unknown Venipuncture / Unknown 02/11/2025 4:37 PM EDT 02/11/2025 4:51 PM EDT us Pepe MIKE LAB BLOOD ORDERABLES Final R esult Performing Organization Address City/[facility]/ZIP Co de Phone Number [facility] [address] [place] [address], [place] [phone] * (ABNORMAL) Comprehensive Metabolic Panel (CMP) (02/11/2025 4:37 PM EDT) Sodium 137 133 - 145 mmol/L LAB CHEMISTRY METHOD 02/11/2025 5:20 PM [facility] Potassium 3.7 3.5 - 5.5 mmol/L LAB CHEMISTRY METHOD 02/11/2025 5:20 PM [facility] Chloride 104 96 - 110 mmol/L LAB CHEMISTRY METHOD 02/11/2025 5:20 PM [facility] CO2 26 21 - 32 mmol/L LAB CHEMISTRY METHOD 02/11/2025 5:20 PM [facility] Anion Gap 7 3 - 11 LAB CHEMISTRY METHOD 02/11/2025 5:20 PM [facility] Glucose 95 70 - 100 mg/dL LAB CHEMISTRY METHOD 02/11/2025 5:20 PM [facility] BUN 47(H) 5 - 25 mg/dL LAB CHEMISTRY METHOD 02/11/2025 5:20 PM [facility] Creatinine 1.72(H) 0.50 - 1.10 mg/dL LAB CHEMISTRY METHOD 02/11/2025 5:20 PM [facility] eGFR 36(L) >=60 mL/min/1. 73m2 LAB CHEMISTRY METHOD 02/11/2025 5:20 PM [facility] Comment:Calculation based on the??Chronic Kidney Disease Epidemiology Collaboration (CKD-EPI) equation refit??without adjustment for race. BUN/Creatinine Ratio 27.3 LAB CHEMISTRY METHOD 02/11/2025 5:20 PM [facility] Calcium 9.4 8.5 - 10.5 mg/dL LAB CHEMISTRY METHOD 02/11/2025 5:20 PM [facility] AST (SGOT) 22 10 - 42 unit/L LAB CHEMISTRY METHOD 02/11/2025 5:20 PM EDT [facility] ALT (SGPT) 28 10 - 60 unit/L LAB CHEMISTRY METHOD 02/11/2025 5:20 PM EDT [facility] Alkaline Phosphatase 118 42 - 121 unit/L LAB CHEMISTRY METHOD 02/11/2025 5:20 PM EDT [facility] Total Protein 7.4 6.0 - 8.0 g/dL LAB CHEMISTRY METHOD 02/11/2025 5:20 PM EDT [facility] Albumin 3.7 3.2 - 5.0 g/dL LAB CHEMISTRY METHOD 02/11/2025 5:20 PM EDT [facility] Total Bilirubin 0.3 0.0 - 1.4 mg/dL LAB CHEMISTRY METHOD 02/11/2025 5:20 PM EDT [facility] Blood Venous blood specimen / Unknown Venipuncture / Unknown 02/11/2025 4:37 PM EDT 02/11/2025 4:51 PM EDT Pepe MIKE LAB BLOOD ORDERABLES Final R esult [facility] [address] [place] [address], * HIV Screening (08/24/2017) Pathologist [facility] HIV Screening abstracted Historical Provider HEALTH MAINTENANCE Final Result * Hepatitis C Screening (08/24/2017) Pathologist [facility] Hepatitis C Screening abstracted Historical Provider HEALTH MAINTENANCE Final Result * Pap Smear (07/17/2015) Pathologist [facility] Pap smear no interpretation , abstracted Historical Provider HEALTH MAINTENANCE Final Result from Last 3 Months or Most Recently Relevant to Health Maintenance Insurance MEDICAID - [place] Care Teams Cook Fry Relationship Specialty Start Date End Date Yolie Desir MD [address] [phone] PCP - General 07/25/24
--- OUTSIDE RECORDS SUMMARY | 2025-03-28 15:42 | XMS_ITS | Encounter Summary ---
Author Organization [email or web address] Address [address] [facility] [address] [place] [address] Care Team Providers Care Group Tester Name Role Phone Yolie Desir MD Primary Care Provider + Reason for Visit * Reason Comments Med Refill Encounter Details Date Type Department Care Team (Late st Contact Info) Description 12/29/2023 Refill [facility] MED[facility] [address] [place], [place] [phone] Yolie Desir MD [address] [place], [place] [phone] Diabetic nephropathy associated with type 2 diabetes [...] with type 2 diabetes mellitus (CMS/[facility]) documented in this encounter Additional Health Concerns Assessment Noted Time PHQ-9 Depression Total Score: 8 02/11/20 23 9:24 AM EDT documented as of this encounter Care Teams Group Tester Relationship Specialty Start Date End Date Yolie Desir MD [address] [place] [address] PCP - General Family Medicine 10/26/19 documented as of this encounter
--- OUTSIDE RECORDS SUMMARY | 2025-03-28 15:42 | XMS_ITS | Encounter Summary ---
Author Organization [employer] Address [address] 7[address] [place] [address] Care Team Providers Care Invasive Cardiologist Name Role Phone Yolie Desir MD Primary Care Provider + Reason for Visit * Reason Comments Med Refill Encounter Details Date Type Department Care Team (Late st Contact Info) Description 06/15/2024 Refill [facility] [address] [place], [place] [phone] Yolie Desir MD [address] [place], [place] [phone] Diabetic nephropathy associated with type 2 diabetes mellitus ([facility]) Social History Tobacco Use Types Packs/Day [...] nephropathy associated with type 2 diabetes mellitus (CMS/[facility]) documented in this encounter Additional Health Concerns Assessment Noted Time PHQ-9 Depression Total Score: 8 02/11/20 23 9:24 AM EDT documented as of this encounter Care Teams Invasive Cardiologist Relationship Specialty Start Date End Date Yolie Desir MD [address] [place] [phone] PCP - General Family Medicine 10/26/19 documented as of this encounter
--- OUTSIDE RECORDS SUMMARY | 2025-03-28 15:42 | XMS_ITS | Encounter Summary ---
Author Organization [employer] Address [address] 7[address] [place] [address] Care Team Providers Care Mill House Supervisor Name Role Phone Yolie Desir MD Primary Care Provider + Reason for Visit * Reason Comments Med Refill Encounter Details Date Type Department Care Team ([facility] st Contact Info) Description 01/02/2024 Refill [facility] [address] [place], [place] [phone] [facility] [address] [place] [address] Acute on chronic congestive heart failure, unspecified [...] documented as of this encounter Care Teams Mill House Supervisor Relationship Specialty Start Date End Date Yolie Desir MD [address] [place] [address] PCP - General Family Medicine 10/26/19 documented as of this encounter
--- OUTSIDE RECORDS SUMMARY | 2025-03-28 15:43 | XMS_ITS | Encounter Summary ---
Author Organization [employer] Address [address] [facility] 7t [place] [address] Care Team Providers Care Sole Stitcher Hand Name Role Phone Yolie Desir MD Primary Care Provider + Reason for Visit * Reason Onset Date Comments Prior Authorization 10/28/2022 Encounter Details Date Type Department Care Team (Late st Contact Info) Description 10/28/2022 Telephone [facility] [address] [place], [place] [phone] Yolie Desir MD 230 [place], [place] [phone] Prior Authorization Social History Tobacco Use Types [...] on filedocumented in this encounter Care Teams Sole Stitcher Hand Relationship Specialty Start Date End Date Yolie Desir MD [address] [place] [phone] PCP - General Family Medicine 10/26/19 documented as of this encounter
--- OUTSIDE RECORDS SUMMARY | 2025-03-28 15:43 | XMS_ITS | Clinical Summary ---
Author Organization [employer] Address [address] [facility] 7t [place] [address] Care Team Providers Care Bullet Casting Operator Name Role Phone Boo Ashby MD Primary [...] misc TEST BLOOD SUGAR SIX TIMES DAILY Active nitroglycerin (Nitrostat) 0.4 MG SL tablet [...] G6 Intro, Gen 5,) kit USE DIRECTED 024 Active Continuous Blood Gluc Transmit (Dexcom G6 transmitter) misc USE DIRECTED ONCE EVERY 3 MONTHS 024 Active Continuous Blood Gluc Sensor (Dexcom G6 Sensor) misc USE DIRECTED. CHANGE EVERY 10 DAYS 024 Active Continuous Blood Gluc Software Programmer (Dexcom G6 benzene washer operator) device USE DIRECTED 024 Active carvedilol (Coreg) 6.25 MG tablet TAKE 1 TABLET BY MOUTH TWICE DAILY IN THE MORNING AND IN THE EVENING Active Lantus SoloStar 100 UNIT/ML penIndications: Diabetic [...] MIX WITH CERAVE CREAM DIRECTED. 80 g 024 Active glucose (Glutose) 40 % gel oral gel Take 15 g by mouth if needed for low blood sugar. 60 g 024 Active Advair Diskus 250-50 MCG/ACT aerosol [...] MOUTH EVERY MORNING 90 tablet 025 Active ferrous gluconate (Fergon) 324 (38 Fe) MG tabletIndicatio ns:Iron deficiency anemia due to chronic blood loss TAKE 1 TABLET BY MOUTH TWICE DAILY AT NOON AND IN THE EVENING 180 tablet 3 025 Active ferrous gluconate (Fergon) 324 (38 Fe) MG tabletIndicatio ns:Iron deficiency anemia due to chronic blood loss TAKE 1 TABLET BY MOUTH TWICE DAILY AT NOON AND IN THE EVENING 180 tablet 3 024 2024 Discontinued pantoprazole (ProtoNix) 40 MG EC tabletIndicatio ns:Epigastric [...] Omnipod use. Continue to follow up with Administrative Officer and change of medications. FU in 3 [...] to increase water intake and fu with DIGITAL COORDINATOR in June for pelvic exam She will fu this afternoon with , geosciences professor Carpal tunnel syndrome of right wrist 01/23/2024 Overview (01/23/2024): NCS at [facility] on 12/2023= Median nerve compression at wrist [...] bx 12/[address] Maxwell FU with DIGITAL COORDINATOR on 06/2024 Numbness and tingling of right [...] and will order x ray if needed Turbine Operator appt on Cervical high risk HPV [...] to check finger stick and fu with geosciences professor. I told pt to call geosciences professor office to fu on prescription of CGM sensor Continue lantus 50 units + Omnipod insulin pod Pt to continue regular wound care at wound clinic for left DM ulcer continue laser therapy on right eye. She is legally blind in the left eye. order labs and FU with me in 3 months Assessment & Plan (01/23/2024 12:14 PM EST): Significantly improving, fu with [facility] wound clinic I will order supplies to [...] AND PLAN FOR TYPE 2 DIABETES MELLITUS ([facility]) WRITTEN ON 11/04/2023 2:41 PM BY BOO ASHBY MD Uncontrolled Unclear if insulin pump is working properly Told patient to call endocrinology MARYLOU to see if pump can be replaced sooner vs. Move temporarily to sc Lantus + Humalog Assessment & Plan (01/08/2025 2:18 PM EST): >>ASSESSMENT AND PLAN FOR TYPE 2 DIABETES MELLITUS ([facility]) WRITTEN ON 08/02/2024 3:15 PM BY BOO ASHBY MD Controlled, last A1c on 01/2024 was at goal. I will do A1c at upcoming regular visit Patient had episode of hypoglycemia today, probably due to miscalculation of insulin dose adjustment. She will fu on Tuesday with inclusion paraeducator. She received glucose load today and BS [...] I congratulated her for reaching out to geosciences professor and compliance w/ medications I gave her information about diabetic diet, she's asking for more 1-1 organ recovery coordinator coaching, so I gave her information about wt reduction programs in the area Continue close fu w/ geosciences professor insulin pump + Ozempic Pt had intraocular [...] asthma, CHF vs other. Informed about the [facility] and visit ED, she request an appointment [...] Encounters Date Type Department Care Team Description 03/28/2025 Orders Only GENERIC EXTERNAL DATA DEPARTMENT Provider, Generic External Data 03/27/2025 Refill [facility] [address] [place] [address] Boo Ashby MD Diabetic nephropathy associated with type 2 diabetes mellitus ([facility]) 03/24/2025 Refill [facility] [address] [place] [address] Boo Ashby MD Iron deficiency anemia due to chronic blood loss 02/27/2025 Refill [facility] [address] [place] [address] Boo Ashby MD Diabetic nephropathy associated with type 2 diabetes mellitus ([facility]); Epigastric pain 02/18/2025 1:30 PM EDT Office Visit [facility] [address] [place] [address] Xuan Lozada NP Acute cough (Primary Dx); Mild intermittent asthma without complication; Tiredness 02/18/2025 Orders Only GENERIC EXTERNAL DATA DEPARTMENT Provider, Generic External Data 02/18/2025 Travel 02/14/2025 Refill [facility] [address] [place], [place] [phone] Boo Ashby MD 02/13/2025 Telephone [facility] [address] [place] [address] Boo Ashby MD ER Follow-up 02/11/2025 1:20 PM EDT Office Visit [facility] [address] [place] [address] Xuan Lozada NP Dizziness (Primary Dx); Double vision; Cough in adult patient 02/08/2025 Refill [facility] [address] [place] [address] Boo Ashby MD 02/06/2025 Telephone [facility] [address] [place] [address] Boo Ashby MD novolog 02/05/2025 Telephone [facility] [address] [place] [phone] Boo Ashby MD Vicenta recall 02/01/2025 Population Health Risk Score [facility] () Department [address] [place] [phone] Provider, Population Health Generic 01/29/2025 Refill [facility] [address] [place] [address] Boo Ashby MD Diabetic nephropathy associated with type 2 diabetes mellitus (CMS/HCC) 01/08/2025 2:00 PM EST Office Visit [facility] [address] [place] [phone] Boo Ashby MD Diabetes mellitus type 2 with peripheral artery disease (CMS/HCC) (Primary Dx); Severe recurrent major depression without psychotic features (CMS/HCC); Mild intermittent asthma with acute exacerbation; Class 1 obesity due to excess calories with serious comorbidity and body mass index (BMI) of 31.0 to 31.9 in adult; Exercise counseling; Dietary counseling 01/08/2025 Travel 01/04/2025 Telephone [facility] [address] [place] [phone] Boo Ashby MD Chart prep 12/31/2024 Telephone [facility] [address] [place] [address] [phone] Boo Ashby MD 12/31/2024 Refill [facility] [address] [place] [phone] Boo Ashby MD Diabetic nephropathy associated with [...] WHOLE BLOOD Routine 03/28/2025 3:22 PM EDT VITAMIN D,25-OH,TOTAL,IA Routine 02/18/2025 2:03 [...] Recently Relevant to Health Maintenance Results * (ABNORMAL) Glucose, Whole Blood (03/28/2025 3:22 PM EDT) Glucose, Whole Blood 198(H) 60 - 115 mg/dL [facility] Comment:METER #: [id number] 5Testing performed in the Endocrinology Department [address] , [address], [facility]. 03/28/2025 3:22 PM EDT 03/28/2025 3:27 PM EDT Generic External Data Provider LAB BLOOD ORDERAB LES Final Result Performing Organization Address [facility] Co de Phone Number [facility] [address] [place] [phone] * Protein Creatinine Ratio, Urine (02/18/2025 2:03 PM EDT) Pathologist [facility] Creatinine, Urine 99.31 mg/dL [facility] Protein, Total, Random Urine <7 <12 mg/dL [facility] Protein/Creatin ine Ratio, Ur TNP <0.2 [facility] Comment:Unable to calculate urine protein creatinine ratio due tolow creatinine or protein result. 02/18/2025 2:03 PM EDT 02/18/2025 4:16 PM EDT Generic External Data Provider LAB URINE ORDERAB LES Final Result Performing Organization Address [facility]/ZIP Co de Phone Number [facility] [address] [place] [phone] * Vitamin D, 25-Hydroxy, Total, Immunoassay (02/18/2025 2:03 PM EDT) Vitamin D 25-OH Total 36.8 >30 ng/mL [facility] Comment: Health Based Reference Values*< 20 ??ng/mL ??[id number] ng/mL ??Insufficient> 30 ??ng/mL ??Sufficient*Luis Felipe WATSON. [...] Final Result Performing Organization Address [facility]/ZIP Co de Phone Number [facility] [address] [place] [phone] * TSH W/Reflex to FT4 (02/18/2025 2:03 PM EDT) TSH reflex Free T4 2.28 0.32 - 4.0 uIU/mL [facility] Blood Venous blood specimen / Unknown 02/18/2025 2:03 PM EDT 02/18/2025 4:12 PM EDT us Xuan Lozada PORTABLE PINCH RIVETER LAB BLOOD ORDERABLES Final Resu lt Performing Organization Address City/[facility]/ZIP Co de Phone Number [facility] [address] [place] [phone] * Creatinine, Serum (02/18/2025 2:03 PM EDT) Pathologist [facility] Creatinine, Serum 0.93 0.5 - 1.4 mg/dL [facility] Estimated Glomerular Filt Rate >60 [facility] Comment:Chronic Kidney Disea se: Estimated GFR < 60 mL/min/1.58j3Psmadn Kidney Disease: Estimated GFR < 15 mL/min/1.73m2 02/18/2025 2:03 PM EDT 02/18/2025 4:12 PM EDT us Generic External Data Provider LAB BLOOD ORDERAB LES Final Result [facility] [address] [place] [phone] * (ABNORMAL) CBC auto differential (02/18/2025 2:03 PM EDT) Pathologist [facility] White Blood Count 8.4 4.8 - 10.8 X10*3/uL [facility] Red Blood Count 3.89(L) 4.20 - 5.50 X10*6/uL [facility] Hemoglobin 11.8(L) 12.0 - 16.0 g/dl [facility] Hematocrit 35.5(L) 37.0 - 47.0 % [facility] Mean Corpuscular Volume 91.3 80.0 - 98.0 fL [facility] Mean Corpuscular Hemoglobin 30.3 27.0 - 33.0 pg [facility] Mean Corpuscular HGB Conc 33.2 31.0 - 35.0 g/dl [facility] Red Cell Distribution Width 13.3 11.0 - 16.0 % [facility] Platelet Count 264 160 - 400 X10*3/uL [facility] Mean Platelet Volume 11.5 9.4 - 12.3 fL [facility] Neutrophils Percent Auto 60.5 45 - 73 % [facility] Imm Gran Pct Auto 0.2 0.0 - 0.4 % [facility] Lymphocytes Percent Auto 25.0 20 - 40 % [facility] Monocytes Percent Auto 8.0 2 - 11 % [facility] Eosinophils Percent Auto 6.1(H) 0 - 4 % [facility] Basophils Percent Auto 0.2 0 - 2 % [facility] NRBC Pct Auto 0.0 0.0 - 0.2 /100WBC [facility] Neutrophils Absolute Auto 5.1 2.0 - 8.3 x10*3/uL [facility] Imm Gran Abs Auto 0.02 0.00 - 0.03 X10*3/uL [facility] Lymphocytes Absolute Auto 2.1 1.2 - 4.9 X10*3/uL [facility] Monocytes Absolute Auto 0.7 0.1 - 1.2 X10*3/uL [facility] Eosinophils Absolute Auto 0.5(H) 0.0 - 0.4 X10*3/uL [facility] Basophils Absolute Auto 0.0 0.0 - 0.2 X10*3/uL [facility] NRBC Abs Auto 0.000 0.0 - 0.012 X10*3/uL [facility] 02/18/2025 2:03 PM EDT 02/18/2025 4:12 PM EDT us Generic External Data Provider LAB BLOOD ORDERAB LES Final Result Performing Organization Address [facility]/ZIP Co de Phone Number [facility] [address] [place] [phone] * (ABNORMAL) BUN (Blood Urea Nitrogen) (02/18/2025 2:03 PM EDT) Urea Nitrogen (BUN) 21(H) 9 - 16 mg/dL [facility] 02/18/2025 2:03 PM EDT 02/18/2025 4:12 PM EDT us Generic External Data Provider LAB BLOOD ORDERAB LES Final Result Performing Organization Address City/[facility]/ZIP Co de Phone Number [facility] [address] [place] [address] [phone] * PTH, Intact Without Calcium (02/18/2025 2:03 PM EDT) Parathyroid Hormone, Intact 39.6 8.7 - 77.1 pg/mL [facility] 02/18/2025 2:03 PM EDT 02/18/2025 4:12 PM EDT us Generic External Data Provider LAB BLOOD ORDERAB LES Final Result Performing Organization Address [facility]/ZIP Co de Phone Number [facility] [address] [place] [phone] * (ABNORMAL) Calcium (02/18/2025 2:03 PM EDT) Calcium 10.8(H) 8.4 - 10.2 mg/dL [facility] 02/18/2025 2:03 PM EDT 02/18/2025 4:12 PM EDT Generic External Data Provider LAB BLOOD ORDERAB LES Final Result Performing Organization Address [facility] Phone Number [facility] [address] [place] [phone] * (ABNORMAL) Electrolyte Panel (02/18/2025 2:03 PM EDT) Sodium 140 135 - 145 mmol/L [facility] Potassium 4.3 3.3 - 5.1 mmol/L [facility] Chloride 106 96 - 108 mmol/L [facility] Carbon Dioxide 27 22 - 29 mmol/L [facility] Anion Gap 11(L) 12 - 20 [facility] 02/18/2025 2:03 PM EDT 02/18/2025 4:12 PM EDT Generic External Data Provider LAB BLOOD ORDERAB LES Final Result Performing Organization Address City/[facility] Co de Phone Number [facility] [address] [place] [phone] * Influenza B (ID NOW Rapid Molecular) (02/11/2025 1:46 PM EDT) [facility] Influenza B Negative Negative, Indeterminate [facility] Swab 02/11/2025 1:46 PM EDT [facility] Appram PORTABLE PINCH RIVETER POINT OF CARE TEST ENTER/EDIT O RDERABLES Final Result [facility] [address] [place] [address] [phone] * Influenza A (ID NOW Rapid Molecular) (02/11/2025 1:46 PM EDT) [facility] Influenza A Negative Negative, Indeterminate [facility] Swab 02/11/2025 1:46 PM EDT Xuan Appra PORTABLE PINCH RIVETER POINT OF CARE TEST ENTER/EDIT O RDERABLES Final Result [facility] [address] [place] [address] [phone] * POCT Rapid COVID Ag (02/11/2025 1:44 PM EDT) [facility] Rapid COVID Ag Negative Swab 02/11/2025 1:44 PM EDT Xuan Appra PORTABLE PINCH RIVETER POINT OF CARE TEST ENTER/EDIT O RDERABLES Final Result * (ABNORMAL) POCT HGB A1C (01/08/2025 2:16 PM EST) [facility] Hemoglobin A1C 7.5(A) 4.0 - 6.0 % QC Media Lot # [id number] Lot# Expiration Date Blood 01/08/2025 2:16 PM EST Boo Ashby MD POINT OF CARE TEST ENTER /EDIT ORDERABLES Final Result * POCT Glucose (01/08/2025 2:14 PM EST) Glucose Blood, POC 154 60 - 200 mg/dL [employer] Media Lot # [id number] Lot# Expiration Date [id number] Blood Capillary blood specimen / Unknown 01/08/2025 2:14 PM EST Boo Ashby MD POINT OF CARE TEST ENTER /EDIT ORDERABLES Final Result * (ABNORMAL) Lipid Panel, Standard (06/25/2024 10:51 AM EDT) Triglycerides 186(H) <150 mg/dL [facility] Comment:Desirable Triglyceri de: less than 150 mg/dLBorderline High Triglyceride 150-199 mg/dLHigh Triglyceride: 200-499 mg/dLVery High Triglyceride: greater than or equal to 5OO mg/dL Cholesterol 246(H) <200 mg/dL [facility] Comment:Desirable Cholestero l: less than 200 mg/dLBorderline High Cholesterol: 200-239 mg/dLHigh Cholesterol: greater than 239 mg/dL LDL Cholesterol Calculated 163(H) <100 mg/dL [facility] Comment:Desirable LDL: less than 100 mg/dLNear Optimal/Above Optimal LDL: 110- 129 mg/dLBorderline High LDL: 130-159 mg/dLHigh LDL: 160-189 mg/dLVery High LDL: greater than or equal to 190 mg/dL HDL Cholesterol 46 >40 mg/dL [facility] Comment:Desirable HDL: great er than 40 mg/dL Note: This HDL assay may give artificially low results in patients with liver disease. 06/25/2024 10:5 1 AM EDT 06/25/2024 10:51 AM EDT Generic External Data Provider LAB BLOOD ORDERAB LES Final Result [facility] [address] [place] [address] [phone] * BI Mammogram Screening Tomosynthesis Bilateral (04/03/2024 3:27 PM EDT) Anatomical Region Laterality Modality Breast Bilateral Mammography 04/03/2024 3:27 PM EDT Narrative 05/04/2024 5:45 AM EDT ? [facility] [place] ? [address] ?[place] [address] ? Mammography Report ? Signed ? Patient: Melissa Barnett ?MR#: ?? [id number] ? : 1975 ?Acct:[id number] ? Age/Sex: 48 / F ?ADM Date: 04/03/24 ? Loc: HO.MAMMO ? Attending Dr: Boo Ashby MD ? Ordering Physician: Boo Ashby MD ?Results: 1Ne ?? gative ? Date of Service: 04/03/24 ?Follow Up: 1 Year From Orig ?? inal Mammogram ? Procedure(s): MM tomosynthesis screening BI ?? Accession Number(s): [id number] ? cc: Boo Ashby MD ? EXAMINATION: [...] 0542 ? DD/ 1527 ? TD/TT: ? Contact Acid Plant Operator Helper: ? Procedure Note Rina, Image - 05/04/2024 [facility] [address] [place] [address] Mammography Report Signed Patient: Melissa Barnett#: [id number] : 1975Acct:[id number] Age/Sex: 48 / FADM Date: 04/03/24 Loc: DEJONO Attending Dr: Boo Ashby MD Ordering Physician: Boo Ashby MDResults: 1Ne gative Date of Service: 04/03/24Follow Up: 1 Year From Orig inal Mammogram Procedure(s): MM tomosynthesis screening BI Accession Number(s): [id number] cc: Boo Ashby MD EXAMINATION: MM SCREENING [...] in OV> 05/04/24 0542 DD/ 1527 TD/TT: Contact Acid Plant Operator Helper: Boo Ashby MD IMG BI PROCEDURES Edited Result - Final * (ABNORMAL) HPV Genotypes 16,18/45 (03/15/2023 11:10 AM EDT) HPV 16 RNA NOT DETECTED NOT DETECTED [facility] HPV 18/45 RNA DETECTED(A) NOT DETECTED [facility] Comment: Methodology: School Guidance Counselor Mediated Amplification Cervical sources are required for HPV testing. If a vaginal source from a patient who has had a total hysterectomy with removal of cervix was submitted, please contact the testing laboratory for alternative testing options. 03/15/2023 11:1 0 AM EDT 03/16/2023 6:23 AM EDT Boo Ashby MD LAB CYTOLOGY ORDERABLES Final Result [facility] [address], [place] [address] [facility] [address] [place] [address] * Hm Pap Smear (03/15/2023) HM Pap smear NIL HPV+ us Historical Provider HEALTH MAINTENANCE Final Result from Last 3 Months or Most Recently Relevant to Health Maintenance Insurance [employer] Care Teams Bullet Casting Operator Relationship Specialty Start Date End Date Boo Ashby MD [address] [place] [phone] PCP - General Family Medicine 10/26/19
--- OUTSIDE RECORDS SUMMARY | 2025-03-28 15:43 | XMS_ITS | Encounter Summary ---
Author Organization [employer] Address [address] [facility] [address] 7[address] [place] [address] Care Team Providers Care Steel Sash Erector Name Role Phone Yolie Desir MD Primary Care Provider + Reason for Visit * Reason Comments Med Refill Encounter Details Date Type Department Care Team ([facility] st Contact Info) Description 03/24/2025 Refill [facility] [address] [place], [place] [phone] Yolie Desir MD [address] [place], [place] [phone] Iron deficiency anemia due to chronic blood [...] documented as of this encounter Care Teams Steel Sash Erector Relationship Specialty Start Date End Date Yolie Desir MD [address] [place] [phone] PCP - General Family Medicine 10/26/19 documented as of this encounter
--- OUTSIDE RECORDS SUMMARY | 2025-03-28 15:43 | XMS_ITS | Clinical Summary ---
Author Organization [facility] Address [address] [place] [address] Phone Care Team Providers Care Automotive Refinisher Name Role Phone Yolie Desir MD Primary Care Provider [phone] Allergies Active Allergy Reactions Criticality Noted Date [...] 09/19/2017, 12/10/2015, Additional history exists [place] Care Teams Automotive Refinisher Relationship Specialty Start Date End Date Yolie Desir MD [address] [place] [address] PCP - General Internal Medicine 04/22/21
--- OUTSIDE RECORDS SUMMARY | 2025-03-28 15:43 | XMS_ITS | Encounter Summary ---
Author Organization [employer] Address [address] [place] [address] Care Team Providers Care Chemical Dependency Attendant Name Role Phone Yolie Desir MD Primary Care Provider + Encounter Details Date Type Department Care Team (Late st Contact Info) Description 01/25/2023 Abstract [facility] MEDICINE [address] [place], [place] [phone] Yolie Desir MD [address] [place] [address] Social History Tobacco Use Types Packs/Day Years [...] on filedocumented in this encounter Care Teams Chemical Dependency Attendant Relationship Specialty Start Date End Date Yolie Desir MD [address] [place], [place] [phone] PCP - General Family Medicine 10/26/19 documented as of this encounter
--- OUTSIDE RECORDS SUMMARY | 2025-03-28 15:43 | XMS_ITS | Encounter Summary ---
Author Organization [employer] Address [address] [place] [address] Care Team Providers Care Network Associate Name Role Phone Yolie Desir MD Primary Care Provider + Encounter Details Date Type Department Care Team (Late st Contact Info) Description 01/25/2023 Abstract [facility] MEDICINE [address] [place], [place] [phone] Yolie Desir MD [address] [place] [address] Social History Tobacco Use Types Packs/Day Years [...] on filedocumented in this encounter Care Teams Network Associate Relationship Specialty Start Date End Date Yolie Desir MD [address] [place], [place] [phone] PCP - General Family Medicine 10/26/19 documented as of this encounter
== END 2025-03-28 15:52 | disposition home or self-care (01) ==
LOC: HO.ENCR 15:10
PROVIDERS: PCP Internal Medicine; Visit Provider Nurse Practitioner Adult Health
DX: E11.29 Type 2 diabetes mellitus with other diabetic kidney complication (principal)

== ENCOUNTER → 2025-03-28 15:09 | Outpatient (BNVA) | payer MEDICAID, SELFPAY | PROVIDERS: PCP Internal Medicine; Visit Provider Nurse Practitioner Adult Health | DX: E11.29 Type 2 diabetes mellitus with other diabetic kidney complication (principal); Z79.4 Long term (current) use of insulin; Z96.41 Presence of insulin pump (external) (internal) | CPT/HCPCS: 82947; 83036; 99212 ==

== ENCOUNTER 2025-04-11 11:02 | Outpatient (REF) | payer MEDICAID, SELFPAY ==
--- OUTSIDE RECORDS SUMMARY | 2025-04-11 11:43 | XMS_ITS | Clinical Summary ---
Author Organization [facility] Address [address] [place] [address] Phone Care Team Providers Care Pharmacy Technician Name Role Phone Yolie Desir MD Primary Care Provider [phone] Allergies Active Allergy Reactions Criticality Noted Date [...] 09/19/2017, 12/10/2015, Additional history exists [place] Care Teams Pharmacy Technician Relationship Specialty Start Date End Date Yolie Desir MD [address] [place] [address] PCP - General Internal Medicine 04/22/21
--- OUTSIDE RECORDS SUMMARY | 2025-04-11 11:43 | XMS_ITS | Clinical Summary ---
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 ([facility] V24, [facility] V28) 09/28/2024 Diabetic ulcer of left midfo ot associated with type 2 diabetes mellitus, with fat layer exposed ([facility] V24, [facility] V28) 09/28/2024 Encounters Date Type Department Care Team Description 04/08/2025 1:45 PM EDT Office Visit Orthopedic Surgery [facility] [address] [phone] Dusty Gonzalez, DPM High ankle sprain, left, sequela (Primary Dx); Ulcer of toe of left foot, with necrosis of bone ([facility] V24, [facility] V28) 04/01/2025 4:56 PM EDT - 04/01/2025 6:[address] [facility] Emergency [address] [place] [phone] Fall, initial encounter (Primary Dx); Sprain of left ankle, unspecified ligament, initial encounter Discharge Disposition: Home or Self Care 03/25/2025 3:30 PM EDT Office Visit Orthopedic Surgery [facility] [address] [phone] Dusty Gonzalez, DPM Ulcer of toe of left foot, with necrosis of bone [place] [place], [facility] V28) (Primary Dx); Follow-up exam; Ulcer of toe of right foot, with fat layer exposed ([facility] V24, [facility] V[facility]) 02/11/2025 4:00 PM EDT - 02/11/2025 9:[address] [facility] Emergency [address] [place] [address] Dehydration (Primary Dx); Mild intermittent asthma without complication Discharge Disposition: Home or Self Care from Last 3 Months Medical History Medical History Date Comments Diabetes mellitus ([facility], [facility] V28) Social History Tobacco Use Types Packs/Day [...] Sign Reading Time Taken Comments Blood Pressure 113/54 04/01/2025 2:14 PM EDT Pulse 88 04/01/2025 2:14 PM EDT Temperature 36.4 ??C (97.5 ??F) 04/01/2025 2:14 PM ED T Respiratory Rate 16 04/01/2025 2:14 PM EDT Oxygen Saturation 100% 04/01/2025 2:14 PM EDT Inhaled Oxygen Concentration - - Weight 90.7 kg (200 lb) 04/08/2025 1:33 PM EDT Height 162.6 cm (5' 4.02 ) 04/08/2025 1:33 PM ED T Body Mass Index 34.31 04/08/2025 1:33 PM EDT Plan of Treatment Upcoming Encounters Date Type Department Care Team (Late st Contact Info) Description 04/24/2025 2:30 PM EDT Office Visit Orthopedic Surgery - [place] 250 175 [facility] 250 [place] [phone] Dusty Gonzalez, DPM [address] [address] Health Maintenance Due Date Last Done Comments [...] Name Priority Date/Time Associated Diagnosis Comments XR TIBIA FIBULA 2 VIEWS LEFT STAT 04/01/2025 6:13 PM EDT XR ANKLE 3+ VIEWS LEFT STAT 2:31 PM EDT XR FOOT 3+ VIEWS LEFT Routine 03/25/2025 3:14 PM EDT Follow-up exam ECG ANNOTATED 02/13/2025 XR CHEST 2 VIEWS STAT 02/11/2025 8:0 4 PM EDT URINALYSIS WITH REFLEX MICROSCOPIC STAT [...] Relevant to Health Maintenance Results * XR Tibia Fibula 2 Views Left (04/01/2025 6:13 PM EDT) Anatomical Region Laterality Modality Lower Extremities, Lower Leg Left Rad iographic Imaging 04/02/2025 8:38 AM EDT Impressions 04/02/2025 8:40 AM EDT FINDINGS/IMPRESSION: No acute fracture or dislocation. ??Mild degenerative changes seen at the knee and ankle. ??Diffuse soft tissue swelling throughout the foot. ??Small focus of soft tissue air in the plantar aspect of the midfoot, possibly a soft tissue wound or laceration, partially imaged. ??Plantar calcaneal spur and Achilles enthesopathy. ??Arterial calcifications and stents noted. -------- FINAL REPORT -------- Dictated By: DILSHAD PICKETT Dictated Date: 04/02/2025 08:38 ET Assigned Physician: DILSHAD PICKETT Reviewed and Electronically Signed By: DILSHAD PICKETT Signed Date: 04/02/2025 08:40 ET Workstation ID: [id number] Transcribed By: Self Edit Transcribed Date: 04/02/2025 08:38 ET Narrative 04/02/2025 8:40 AM EDT XR TIBIA FIBULA 2 VIEWS LEFT INDICATION: ??Fall, pain TECHNIQUE: XR TIBIA FIBULA 2 VIEWS LEFT COMPARISON: No priors available. Procedure Note Dilshad Pickett MD - 04/02/2025 XR TIBIA FIBULA 2 VIEWS LEFT INDICATION: Fall, pain TECHNIQUE: XR TIBIA FIBULA 2 VIEWS LEFT COMPARISON: No priors available. IMPRESSION: FINDINGS/IMPRESSION: No acute fracture or dislocation. Mild degenerativechanges seen at the knee and ankle. Diffuse soft tissue swellingthroughout the foot. Small focus of soft tissue air in the plantar aspectof the midfoot, possibly a soft tissue wound or laceration, partiallyimaged. Plantar calcaneal spur and Achilles enthesopathy. Arterialcalcifications and stents noted. -------- FINAL REPORT -------- Dictated By: DILSHAD PICKETT Dictated Date: 04/02/2025 08:38 ET Assigned Physician: DILSHAD PICKETT Reviewed and Electronically Signed By: DILSHAD PICKETT Signed Date: 04/02/2025 08:40 ET Workstation ID: [id number] Transcribed By: Self Edit Transcribed Date: 04/02/2025 08:38 ET Brina MIKE IMG XR PROCEDURES Final Result * XR Ankle 3+ Views Left (04/01/2025 2:31 PM EDT) Anatomical Region Laterality Modality Lower Extremities, Ankle Left Radiogr aphic Imaging 04/01/2025 2:44 PM EDT Impressions 04/01/2025 2:46 PM EDT FINDINGS/IMPRESSION: Large dorsal calcaneal enthesophyte. ??Tiny calcaneal spur. ??Mild ankle joint space narrowing. ??Smooth talar dome. ??No acute fracture. ??Normal alignment. ??Age-indeterminate but are remote appearing avulsion injury of the distal fibula. -------- FINAL REPORT -------- Dictated By: Lucrecia Maravilla Dictated Date: 04/01/2025 14:44 ET Assigned Physician: Lucrecia Maravilla Reviewed and Electronically Signed By: Lucrecia Maravilla Signed Date: 04/01/2025 14:46 ET Workstation ID: [id number] Transcribed By: Self Edit Transcribed Date: 04/01/2025 14:44 ET Narrative 04/01/2025 2:46 PM EDT XR ANKLE 3+ VIEWS LEFT INDICATION: pain TECHNIQUE: XR ANKLE 3+ VIEWS LEFT COMPARISON: No priors available. Procedure Note Lucrecia Maravilla MD - 04/01/2025 XR ANKLE 3+ VIEWS LEFT INDICATION: pain TECHNIQUE: XR ANKLE 3+ VIEWS LEFT COMPARISON: No priors available. IMPRESSION: FINDINGS/IMPRESSION: Large dorsal calcaneal enthesophyte. Tiny calcanealspur. Mild ankle joint space narrowing. Smooth talar dome. No acutefracture. Normal alignment. Age-indeterminate but are remote appearingavulsion injury of the distal fibula. -------- FINAL REPORT -------- Dictated By: Lucrecia Maravilla Dictated Date: 04/01/2025 14:44 ET Assigned Physician: Lucrecia Maravilla Reviewed and Electronically Signed By: Lucrecia Maravilla Signed Date: 04/01/2025 14:46 ET Workstation ID: [id number] Transcribed By: Self Edit Transcribed Date: 04/01/2025 14:44 ET us Aditya Hernadez MD IMG XR PROCEDURES Final Result * XR Foot 3+ Views Left (03/25/2025 [...] No active pulmonary process identified. Telerad RASHID ([id number]) -------- FINAL REPORT -------- Dictated By: Tawanna Knott Dictated Date: 02/12/2025 09:09 ET Assigned Physician: Tawanna Knott Reviewed and Electronically Signed By: Tawanna Knott Signed Date: 02/12/2025 09:10 ET Workstation ID: [id number] Transcribed By: Self Edit Transcribed Date: 02/12/2025 [...] No active pulmonary process identified. Telerad RASHID ([id number]) -------- FINAL REPORT -------- Dictated By: Tawanna Knott Dictated Date: 02/12/2025 09:09 ET Assigned Physician: Tawanna Knott Reviewed and Electronically Signed By: Tawanna Knott Signed Date: 02/12/2025 09:10 ET Workstation ID: [id number] Transcribed By: Self Edit Transcribed Date: 02/12/2025 09:09 ET Pepe MIKE IMG XR PROCEDURES Final Resu lt * (ABNORMAL) Urinalysis with reflex microscopic (02/11/2025 7:54 PM EDT) Specific [place] Urine 1.013 1.003 - 1.030 LAB URINALYSIS - AUTOMATED METHOD 02/11/2025 8:40 PM EDT [facility] pH, Urine 6.0 5.0 - 8.0 pH LAB URINALYSIS - AUTOMATED METHOD 02/11/2025 8:40 PM [facility] Leukocytes, Urine Negative Negative LAB URINALYSIS - AUTOMATED METHOD 02/11/2025 8:40 PM [facility] Nitrite, Urine Negative Negative LAB URINALYSIS - AUTOMATED METHOD 02/11/2025 8:40 PM [facility] Protein, Urine Negative <=Trace mg/dL LAB URINALYSIS - AUTOMATED METHOD 02/11/2025 8:40 PM [facility] Glucose, Urine Negative Negative mg/dL LAB URINALYSIS - AUTOMATED METHOD 02/11/2025 8:40 PM [facility] Ketones, Urine Negative Negative mg/dL LAB URINALYSIS - AUTOMATED METHOD 02/11/2025 8:40 PM [facility] Urobilinogen , Urine 0.2 0.2 - 1.0 mg/dL LAB URINALYSIS - AUTOMATED METHOD 02/11/2025 8:40 PM [facility] Bilirubin, Urine Negative Negative LAB URINALYSIS - AUTOMATED METHOD 02/11/2025 8:40 PM [facility] Blood, Urine Moderate(A) Negative LAB URINALYSIS - AUTOMATED METHOD 02/11/2025 8:40 PM [facility] RBC, Urine 12.8(H) 0 - 4 /HPF LAB URINALYSIS - AUTOMATED METHOD 02/11/2025 8:40 PM [facility] WBC, Urine 2.1 0 - 4 /HPF LAB URINALYSIS - AUTOMATED METHOD 02/11/2025 8:40 PM [facility] Squamous Epithelial, Urine 17 0 - 60 /LPF LAB URINALYSIS - AUTOMATED METHOD 02/11/2025 8:40 PM [facility] Bacteria, Urine Negative Negative /HPF LAB URINALYSIS - AUTOMATED METHOD 02/11/2025 8:40 PM [facility] Hyaline Casts, Urine 0.4 0 - 3 /LPF LAB URINALYSIS - AUTOMATED METHOD 02/11/2025 8:40 PM EDT [facility] Urine Urine specimen obtained by clean catch procedure / Unknown Non-blood Collection / Unknown 02/11/2025 7:54 PM EDT 02/11/2025 8:05 PM EDT Pepe MIKE LAB URINE ORDERABLES Final R esult Performing Organization Address [facility] Co de Phone Number [facility] [address] [place] [address], [place] [phone] * ECG 12 lead (02/11/2025 5:07 PM EDT) Ventricular Rate ECG 83 BPM GEMUSE Atrial Rate 83 BPM GEMUSE P-R Interval 154 ms GEMUSE QRS Duration 84 ms GEMUSE Q-T Interval 364 ms GEMUSE QTc 427 ms GEMUSE P Wave [place] 19 degrees GEMUSE R [place] 22 degrees GEMUSE T [place] 128 degrees GEMUSE ECG Interpretation Normal sinus rhythm Nonspecific ST and T wave abnormality Abnormal ECG No previous ECGs available Confirmed by MD Low, [place] [facility] ([id number]) on 02/12/2025 2:11:56 AM GEMUSE 02/11/2025 5:07 PM EDT 02/12/2025 2:11 AM EDT Tahir Burns MD ECG ORDERABLES Final Result Performing Organization Address [facility] Co de Phone Number GEMUSE * CT Head wo Contrast (02/11/2025 4:51 PM EDT) Anatomical Region Laterality Modality Head and Neck Computed Tomogra phy 02/11/2025 4:58 PM EDT Impressions 02/11/2025 5:01 PM EDT Impression: 1. No acute hemorrhage or intracranial mass effect. 2. Hyperdense left globe, for which clinical correlation is recommended. Vitreous hemorrhage is not excluded. Telepaul MIKE ([id number]) -------- FINAL REPORT -------- Dictated By: Tawanna Knott Dictated Date: 02/11/2025 16:58 ET Assigned Physician: Tawanna Knott Reviewed and Electronically Signed By: Tawanna Knott Signed Date: 02/11/2025 17:01 ET Workstation ID: [id number] Transcribed By: Self Edit Transcribed Date: 02/11/2025 16:58 ET Narrative 02/11/2025 5:01 PM EDT History: Dizziness. Weakness. Comparison: No comparison imaging at this institution. Technique: Contiguous axial images were obtained at 2.5 mm intervals through the posterior fossa and at 5 mm intervals through the remainder of the brain without intravenous contrast. DLP: 808.85 mGy/cm GE Hello Currypeed VCT Iterative reconstruction technique Findings: The ventricular [...] without intravenous contrast. DLP: 808.85 mGy/cm GE Hello [employer]peed VCT Iterative reconstruction technique Findings: The ventricular [...] correlation is recommended.Vitreous hemorrhage is not excluded. Jose MIKE ([id number]) -------- FINAL REPORT -------- Dictated By: Tawanna Knott Dictated Date: 02/11/2025 16:58 ET Assigned Physician: Tawanna Knott Reviewed and Electronically Signed By: Tawanna Knott Signed Date: 02/11/2025 17:01 ET Workstation ID: [id number] Transcribed By: Self Edit Transcribed Date: 02/11/2025 16:58 ET us Pepe MIKE IMG CT PROCEDURES Final Resu lt * (ABNORMAL) CBC auto differential (02/11/2025 4:37 PM EDT) WBC 8.8 4.8 - 10.8 K/mcL LAB HEMETOLOGY METHOD 02/11/2025 5:04 PM EDT [facility] RBC 4.10 3.80 - 4.80 M/mcL LAB HEMETOLOGY METHOD 02/11/2025 5:04 PM EDT [facility] Hemoglobin 12.3 11.5 - 16.0 g/dL LAB HEMETOLOGY METHOD 02/11/2025 5:04 PM EDT [facility] Hematocrit 37.1 35.0 - 47.0 % LAB HEMETOLOGY METHOD 02/11/2025 5:04 PM EDT [facility] MCV 91.4 79.0 - 98.0 FL LAB HEMETOLOGY METHOD [facility] MCH 30.3 27.0 - 32.0 pcg LAB HEMETOLOGY METHOD [facility] MCHC 33.2 32.0 - 37.0 g/dL LAB HEMETOLOGY METHOD 02/11/2025 5:04 PM [facility] RDW 13.2 11.0 - 15.0 % LAB HEMETOLOGY METHOD 02/11/2025 5:04 PM [facility] Platelets 291 130 - 400 K/mcL LAB HEMETOLOGY METHOD 02/11/2025 5:04 PM [facility] MPV 10.6 7.0 - 11.0 FL LAB HEMETOLOGY METHOD 02/11/2025 5:04 PM [facility] NRBC 0.0 <1.0 % LAB HEMETOLOGY METHOD 02/11/2025 5:04 PM [facility] NRBC Absolute 0.00 <0.10 K/mcL LAB HEMETOLOGY METHOD 02/11/2025 5:04 PM [facility] Neutrophils Relative 51.5 % LAB HEMETOLOGY METHOD 02/11/2025 5:04 PM [facility] Lymphocytes Relative 34.9 % LAB HEMETOLOGY METHOD 02/11/2025 5:04 PM [facility] Monocytes Relative 5.6 % LAB HEMETOLOGY METHOD 02/11/2025 5:04 PM [facility] Eosinophils Relative 7.0 % LAB HEMETOLOGY METHOD 02/11/2025 5:04 PM [facility] Basophils Relative 0.5 % LAB HEMETOLOGY METHOD 02/11/2025 5:04 PM [facility] Immature Granulocytes Relative 0.5 % LAB HEMETOLOGY METHOD 02/11/2025 5:04 PM [facility] Neutrophils Absolute 4.52 1.50 - 7.00 K/mcL LAB HEMETOLOGY METHOD 02/11/2025 5:04 PM [facility] Lymphocytes Absolute 3.06 1.00 - 5.00 K/mcL LAB HEMETOLOGY METHOD 02/11/2025 5:04 PM EDT [facility] Monocytes Absolute 0.49 0.20 - 1.00 K/mcL LAB HEMETOLOGY METHOD 02/11/2025 5:04 PM EDT [facility] Eosinophils Absolute 0.61(H) 0.00 - 0.50 K/mcL LAB HEMETOLOGY METHOD 02/11/2025 5:04 PM EDT [facility] Basophils Absolute 0.04 0.00 - 0.20 K/[facility] LAB HEMETOLOGY METHOD 02/11/2025 5:04 PM EDT [facility] Immature Granulocytes Absolute 0.04(H) 0.00 - 0.03 K/[facility] LAB HEMETOLOGY METHOD 02/11/2025 5:04 PM EDT [facility] Blood Venous blood specimen / Unknown Venipuncture / Unknown 02/11/2025 4:37 PM EDT 02/11/2025 4:51 PM EDT us Tahiryuki Burns MD LAB BLOOD ORDERABLES Final Resu lt Performing Organization Address City/[facility]/ZIP Co de Phone Number [facility] [address] [place] [address], * Magnesium (02/11/2025 4:37 PM EDT) Magnesium 2.0 1.9 - 2.6 mg/dL LAB CHEMISTRY METHOD 02/11/2025 5:20 PM EDT [facility] Blood Venous blood specimen / Unknown Venipuncture / Unknown 02/11/2025 4:37 PM EDT 02/11/2025 4:51 PM EDT us Tahir Burns MD LAB BLOOD ORDERABLES Final Resu lt Performing Organization Address City/[facility]/ZIP Co de Phone Number [facility] [address] [place] [address], [place] [phone] * Lipase (02/11/2025 4:37 PM EDT) [facility] Lipase 18 13 - 75 unit/L LAB CHEMISTRY METHOD 02/11/2025 5:20 PM EDT [facility] Blood Venous blood specimen / Unknown Venipuncture / Unknown 02/11/2025 4:37 PM EDT 02/11/2025 4:51 PM EDT Pepe MIKE LAB BLOOD ORDERABLES Final R esult [facility] [address] [place] [address], [place] [phone] * (ABNORMAL) Comprehensive Metabolic Panel (CMP) (02/11/2025 4:37 PM EDT) [facility] Sodium 137 133 - 145 mmol/L LAB CHEMISTRY METHOD 02/11/2025 5:20 PM [facility] Potassium 3.7 3.5 - 5.5 mmol/L LAB CHEMISTRY METHOD 02/11/2025 5:20 PM [facility] Chloride 104 96 - 110 mmol/L LAB CHEMISTRY METHOD 02/11/2025 5:20 PM [facility] CO2 26 21 - 32 mmol/L LAB CHEMISTRY METHOD 02/11/2025 5:20 PM [facility] Anion Gap 7 3 - 11 LAB CHEMISTRY METHOD 02/11/2025 5:20 PM [facility] Glucose 95 70 - 100 mg/dL LAB CHEMISTRY METHOD 02/11/2025 5:20 PM [facility] BUN 47(H) 5 - 25 mg/dL LAB CHEMISTRY METHOD 02/11/2025 5:20 PM [facility] Creatinine 1.72(H) 0.50 - 1.10 mg/dL LAB CHEMISTRY METHOD 02/11/2025 5:20 PM T [facility] eGFR 36(L) >=60 mL/min/1. 73m2 LAB CHEMISTRY METHOD 02/11/2025 5:20 PM [facility] Comment:Calculation based on the??Chronic Kidney Disease Epidemiology Collaboration (CKD-EPI) equation refit??without adjustment for race. BUN/Creatinine Ratio 27.3 LAB CHEMISTRY METHOD 02/11/2025 5:20 PM EDT [facility] Calcium 9.4 8.5 - 10.5 mg/dL LAB CHEMISTRY METHOD 02/11/2025 5:20 PM [facility] AST (SGOT) 22 10 - 42 unit/L LAB CHEMISTRY METHOD 02/11/2025 5:20 PM [facility] ALT (SGPT) 28 10 - 60 unit/L LAB CHEMISTRY METHOD 02/11/2025 5:20 PM [facility] Alkaline Phosphatase 118 42 - 121 unit/L LAB CHEMISTRY METHOD 02/11/2025 5:20 PM [facility] Total Protein 7.4 6.0 - 8.0 g/dL LAB CHEMISTRY METHOD 02/11/2025 5:20 PM [facility] Albumin 3.7 3.2 - 5.0 g/dL LAB CHEMISTRY METHOD 02/11/2025 5:20 PM [facility] Total Bilirubin 0.3 0.0 - 1.4 mg/dL LAB CHEMISTRY METHOD 02/11/2025 5:20 PM [facility] Blood Venous blood specimen / Unknown Venipuncture / Unknown 02/11/2025 4:37 PM EDT 02/11/2025 4:51 PM EDT us Pepe MIKE LAB BLOOD ORDERABLES Final R esult [facility] [address] [place] [address], * HIV Screening (08/24/2017) HIV Screening abstracted Historical Provider HEALTH MAINTENANCE Final Result * Hepatitis C Screening (08/24/2017) Hepatitis C Screening abstracted Historical Provider HEALTH MAINTENANCE Final Result * Pap Smear (07/17/2015) Pap smear no interpretation , abstracted Historical Provider HEALTH MAINTENANCE Final Result from Last 3 Months or Most Recently Relevant to Health Maintenance Insurance MEDICAID - [place] Care Teams Plant Control Operator Relationship Specialty Start Date End Date Yolie Desir MD [address] [phone] PCP - General 07/25/24
--- OUTSIDE RECORDS SUMMARY | 2025-04-11 11:43 | XMS_ITS | Encounter Summary ---
Author Organization [facility] Address [address] [place] [address] Care Team Providers Care Build Technician Name Role Phone Yolie Desir MD Primary Care Provider + [phone] Reason for Visit * Reason Comments Follow-up F/u left foot ulcer, diabetic foot care Encounter Details Date Type Department Care Team ([facility] st Contact Info) Description 04/08/2025 1:45 PM EDT Office Visit Orthopedic Surgery - [place] [address] 175 [facility] [address] [place] [phone] Dusty Gonzalez, DPM 175 [facility] [address] [place] [address] High ankle sprain, left, sequela (Primary Dx); Ulcer of toe of left foot, with necrosis of bone ([facility] V24, [facility] V28) Social History Tobacco Use Types Packs/Day [...] Orientation Straight 02/11/2025 4: 13 PM EDT documented as of this encounter Last Filed Vital Signs Vital Sign Reading Time Taken Comments Blood Pressure - - Pulse - - Temperature - - Respiratory Rate - - Oxygen Saturation - - Inhaled Oxygen Concentration - - Weight 90.7 kg (200 lb) 04/08/2025 1:33 PM EDT Height 162.6 cm (5' 4.02 ) 04/08/2025 1:33 PM ED T Body Mass Index 34.31 04/08/2025 1:33 PM EDT documented in this encounter Progress Notes * Dusty Gonzalez DPM - 04/08/2025 1:45 PM EDT Last PCP visit:Referring MD: 08/02/2024 Yolie Desir MD S Patient presents for evaluation of her feet she notes she has a long complex past medical history of her feet and is a long-term diabetic had an infection of her left foot subsequently surgery 5 years ago with closure reopening presents with her daughter present reports that she had missed several follow-up appointments is partially blind patient recently sprained her left ankle with the emergency room department was discharged radiographs negative for fracture extrusion die template maker ID number [id number] ROS: GENERAL: Pt denies nausea, fever, vomiting, chills, or shortness of breath. Pt in NAD. CARDIOLOGY: pt denies chest pain, palpitations LUNGS: pt denies shortness of breath MUSCULOSKELETAL: See HPI, otherwise no joint pain or swelling, back pain, or muscle pain. SKIN: see HPI, otherwise no lesions, rash or itching NEURO: No persistent headache, weakness or numbness The remainder of the review of systems is noncontributory PAST MEDICAL HISTORY: Patient Active Problem List Diagnosis Allergic rhinitis Anemia Primary osteoarthritis of both hips Blindness of both eyes Chronic sinusitis CHF (congestive heart failure) ([facility] V24, [facility] V28) Diabetic nephropathy associated with type 2 diabetes mellitus ([facility] V24, [facility] V28) Diabetic ulcer of left midfoot associated with type 2 diabetes mellitus, with fat layer exposed ([facility] V24, [facility] V28) SOCIAL HISTORY: Social History Tobacco Use Smoking status: Never Smokeless tobacco: Never Substance Use Topics Alcohol use: Never ACTIVE MEDICATIONS: Outpatient Medications Marked as Taking for the 04/08/25 encounter (Office Visit) with Dusty Caldwell DPM Medication Sig Dispense Refill ammonium lactate (AmLactin) 12 % lotion Apply topically if needed for dry skin. 400 g 0 ammonium lactate (AmLactin) 12 % lotion Apply topically if needed for dry skin. 400 g 0 aspirin 81 mg EC tablet Take 81 mg by mouth daily. atorvastatin (LIPITOR) 80 mg tablet Take 80 mg by mouth daily. blood-glucose meter kit by Does not apply route. carvediloL (COREG) 6.25 mg tablet Take 6.25 mg by mouth 2 times daily (with meals). clopidogreL (PLAVIX) 75 mg tablet Take 75 mg by mouth daily. DIGOXIN ORAL Take by mouth. exenatide ER (Bydureon) 2 mg/0.65 mL pen injector injection Inject into the skin. ferrous gluconate (FERGON) 324 mg (37.5 mg iron) tablet Take by mouth. FLUTICASONE PROPIONATE NASL Administer into affected nostril(s). gabapentin (NEURONTIN) 100 mg capsule Take 100 mg by mouth daily. insulin glargine (Lantus Solostar U-100 Insulin) 100 unit/mL (3 mL) injection pen Inject into the skin. insulin lispro 100 unit/mL injection Inject into the skin 3 times daily (before meals). lisinopriL (PRINIVIL,ZESTRIL) 5 mg tablet Take 5 mg by mouth daily. loratadine 10 mg capsule Take by mouth. pantoprazole (PROTONIX) 40 mg EC tablet Take 40 mg by mouth daily. povidone-iodine (Betadine) 10 % topical solution Apply topically 1 (one) time each day. 473 mL 0 sertraline (ZOLOFT) 100 mg tablet Take 100 mg by mouth daily. torsemide (DEMADEX) 20 mg tablet Take 20 mg by mouth daily. ALLERGIES: Allergies Allergen Reactions Levofloxacin Sulfamethoxazole-Trimethoprim Other Macular Edema per Legacy Notes Trimethoprim PHYSICAL EXAM: Visit Vitals Ht 1.626 m (64.02 ) Wt 90.7 kg (200 lb) BMI 34.31 kg/m?? Smoking Status Never BSA 1.96 m?? PODIATRIC EXAMINATION: GENERAL: Patient appears well nourished, with NAD. VASCULAR: Dorsalis pedis pulses are 0/4 bilaterally and Posterior tibial pulses are 0/4 bilaterally. Capillary filling time within normal limits the digits. No pallor on elevation or rubor on dependency. No varicosities. Denies rest pain or claudication pain. NEUROLOGICAL: Sharp/dull sensation , protective sensation 0/10 with 5.07 semmes scotty bilaterally, vibratory sensation with tuning fork intact to the tibial tuberosity. ORTHOPEDIC: Good muscle strength 5/5 of all flexors and extensors. Dorsi flexion of ankle ,10 degrees, plantar flexion WNL. No muscle atrophy. DERMATOLOGICAL:. Right hallux wound is healed Ulcer formation of the left midfoot lateral subfifth metatarsal SIZE 7 mm x 7 mm x 7 mm BASE, fibro-granular, RIM, hyperkeratotic, UNDERMINING, mild, TRACKING, into bone fourth metatarsal base tissues,NECROTIC TISSUE, loosely-adherent yellow slough, DRAINAGE, serous, moderate, MALODOR, absent, CALOR, absent, ERYTHEMA, absent. BIOMECHANICS: Ankle ROM WNL, STJ ROM wnl, MTJ ROM advance crepitation left midtarsal joint, 1st MPJROM wnl. No acute instability of the ankle IMAGING: XR Ankle 3+ Views Left Order date: 04/01/2025 Authorizing: Aditya Hernadez MD Final Result. Last edit: Interface, Incoming Ancillary Results - Imaging Results Ps360 - 04/01/2025 Narrative & Impression XR ANKLE 3+ VIEWS LEFT INDICATION: pain TECHNIQUE: XR ANKLE 3+ VIEWS LEFT COMPARISON: No priors available. IMPRESSION: FINDINGS/IMPRESSION: Large dorsal calcaneal enthesophyte. Tiny calcaneal spur. Mild ankle joint space narrowing. Smooth talar dome. No acute fracture. Normal alignment. Age-indeterminate but are remote appearing avulsion injury of the distal fibula. -------- FINAL REPORT -------- Dictated By: Lucrecia Maravilla Dictated Date: 04/01/2025 14:44 ET Assigned Physician: Lucrecia Maravilla Reviewed and Electronically Signed By: Lucrecia Maravilla Signed Date: 04/01/2025 14:46 ET Workstation ID: [id number] Transcribed By: Self Edit Transcribed Date: 04/01/2025 14:44 ET IMPRESSION: 1. High ankle sprain, left, sequela 2. Ulcer of toe of left foot, with necrosis of bone ([facility] V24, [facility] V28) PLAN: Pt was seen and examined, history reviewed. Documentation reviewed radiographs reviewed from ED encounter Can continue with Noel bandage for support Aggressive offloading quarter inch felt adhesive padding placed left foot and dispensed from clinic Postop shoe fitted and dispensed to wear all times left lower extremity Radiographs reviewed Discussed possible need for further workup including MRI given positive probe bone with osteolytic changes on plain radiographs Currently no acute signs of infection Discussed further surgical workup including possible needs for bone biopsy pending further workup and clinical response to offloading padding New x-ray order left foot 3 views Follow-up in 1 week Procedure: Left foot wound Open wound Open wound selective excisional debridement of devitalized soft tissue, fibrin, epidermis, dermis, thru skin and subcutaneous debridement of necrotic bone tissue, first 20 sq cm or less, using sterile sharp dissection #15 scalpel blade. Pt. deferred anesthesia. . Devitalized tissue was not sent to pathology. Dusty Gonzalez DPM documented in this encounter Plan of Treatment Upcoming Encounters Date Type Department Care Team (Late st Contact Info) Description 04/24/2025 2:30 PM EDT Office Visit Orthopedic Surgery - [place] [id number] [phone] Dusty Gonzalez DPM [address] [address] documented as of this encounter Visit Diagnoses Diagnosis High ankle sprain, left, sequela- Primary Ulcer of toe of left foot, with necrosis of bone ([facility] V24, [facility] V28) documented in this encounter Care Teams Build Technician Relationship Specialty Start Date End Date Yolie Desir MD [address] [place] [phone] PCP - General 07/25/24 documented as of this encounter
[2025-04-11 18:06] LABS: Anion Gap 16 (12-20); Blood Urea Nitrogen 20 mg/dL (9-16); Carbon Dioxide 28 mmol/L (22-29); Chloride 101 mmol/L (96-108); Estimated Glomerular Filt Rate 59; Potassium 3.6 mmol/L (3.3-5.1); Sodium 141 mmol/L (135-145)
[2025-04-11 18:07] LABS: Albumin Level 4.2 g/dL (3.5-5.0); Cholesterol 216 mg/dL (<200); HDL Cholesterol 47 mg/dL (>40); LDL Cholesterol Calculated 140 mg/dL (<100); Triglycerides 145 mg/dL (<150)
[2025-04-11 18:26] LABS: Parathyroid Hormone Intact 77.3 pg/mL (8.7-77.1)
== END 2025-04-11 11:03 | disposition home or self-care (01) ==
LOC: HO.HKASLDS 11:02
PROVIDERS: Nurse Practitioner; Referring Provider Nurse Practitioner Adult Health; Visit Provider Internal Medicine Nephrology
DX: I10 Essential (primary) hypertension (principal); E11.21 Type 2 diabetes mellitus with diabetic nephropathy; E11.22 Type 2 diabetes mellitus with diabetic chronic kidney disease; N18.30 Chronic kidney disease, stage 3 unspecified; E83.52 Hypercalcemia; E11.29 Type 2 diabetes mellitus with other diabetic kidney complication; R53.83 Other fatigue
CPT/HCPCS: 36415; 80051; 80061; 82040; 82306; 82310; 82565; 83970; 84520

== ENCOUNTER 2025-04-12 14:29 | Outpatient (AMB) | payer MEDICAID, SELFPAY ==
--- NOTE | 2025-04-12 12:32 | A.OFFVIS_ITS ---
Vital Signs 04/12/25 14:41 Height 5 ft 7 in Weight 207 lb 3.752 oz BMI 32.5 BP 120/60 Blood Pressure Location Rt brachial Position Sitting Pulse 87 Pulse Source Pulse Oximeter Pulse Oximetry (%) 95 Oxygen Delivery Method Room Air Intake Visit Reasons: T2DM Intake Note: Patient presents today for a follow-up on Type 2 Diabetes Mellitus: Last Diabetic eye exam was on: 09/2024 Last Podiatry exam was on: Weekly appointments with Dr Gonzalez for an open ulcer. Most recent HbA1c: 8.3%, 03/28/2025 Random Glucose- 144 mg/dL, Today Generator Rebuilder Required: Yes Generator Rebuilder Language: [employer]: Generator Rebuilder Present Generator Rebuilder Name: SALUD Brock/MARY BETH JONES Information Interpreted: non-clinical & clinical Accompanied by: Other Relationship Allergies sulfamethoxazole [From BACTRIM] Allergy (Severe, Verified 04/12/25 15:05) FACIAL SWELLING trimethoprim [From BACTRIM] Allergy (Severe, Verified 04/12/25 15:05) FACIAL SWELLING levofloxacin [From LEVAQUIN] Allergy (Intermediate, Verified 04/12/25 15:05) REDNESS, SWELLING ITCHINESS AT IV SITE Medication List - Last Reconciled 04/12/25 by Iman Joy NP acetone (urine) test (Ketone Urine Test strips) As directed aspirin (Adult Aspirin Regimen) 81 mg PO DAILY@1700 atorvastatin 10 mg PO QPM 30 days blood sugar diagnostic (FreeStyle Lite Strips) USE DIRECTED TO TEST BLOOD SUGAR FOUR TIMES DAILY blood-glucose meter (FreeStyle Lite Meter kit) As directed blood-glucose sensor (Dexcom G6 Sensor device) USE DIRECTED. CHANGE EVERY 10 DAYS blood-glucose transmitter (Dexcom G6 Transmitter device) once every 3 months carvedilol 6.25 mg PO BID clopidogrel 75 mg PO DAILY@0730 Dexcom G7 Sensor (blood-glucose sensor) As directed every 10 days NS digoxin 125 mcg PO MOWEFR@0730 doxycycline monohydrate 100 mg PO BID 14 days epinephrine IM DIRECTED ezetimibe 10 mg PO QAM 90 days ferrous gluconate 324 mg PO DAILY@1200,1700 fluoxetine 20 mg PO DAILY@0730 fluticasone propion-salmeterol 250-50 mcg/dose (Advair Diskus) 1 ea inhalation fluticasone propionate 50 mcg/actuation 1 - 2 sprays intranasal DAILY PRN gabapentin 200 mg PO TID insulin aspart U-100 20 units before breakfast, 30 units before lunch and 30 units before dinner subcutaneously 2 times a day; insulin glargine (Lantus Solostar U-100 Insulin) 42 units once daily for pump failure subcutaneously daily; 30 days insulin lispro Inject up to 100 units via insulin pump subcutaneously daily; insulin lispro (Humalog U-100 Insulin) Inject up to 120 units via insulin pump subcutaneously; insulin pump cart,automated,BT As directed changed every 72 hours insulin pump cart,cont inf,BT (Omnipod Dash Pods (Gen 4) subcutaneous cartridge) As directed isosorbide mononitrate ER 30 mg PO DAILY@0730 lancets (FreeStyle Lancets) As directed tests 4 X/day lancets (TRUEplus Lancets) TEST BLOOD SUGAR FOUR TIMES DAILY ahpwwqjc-[id number]-qvdsijmyR 3.5mg-400 unit- 5,000 unit/gram (Neosporin (ebn-qlg-omxus)) 1 appl topical DAILY 14 days pen needle, diabetic (Easy Touch) USE FOUR TIMES DAILY prednisone 40 mg (2 x 20 mg) PO DAILY semaglutide (Ozempic) 1 mg (0.75 mL) subcut QWEEK 28 days torsemide 60 mg PO BID HPI Comments Details: Patient is 49 yo female with DM type 2 diagnosed in approximately 1987, here for follow up management of diabetes. She was last seen on 03/28/25 A1c 03/28/25 8.3 % 8.8% 10/24/24, 8 She was on steroids towards the end of February. Currently on an Omnipod 5 pump. Takes Ozempic 1.0 mg Dexcom average glucose: 158 14 day continuous glucose monitor report reviewed Days with CGM data 41 % TIme in ranges: 13 % very high (above 250) 11 % high ?(181-250) 72 % in range ?(70-180] 2 % low (69-55) 2 % ?very low (below 54) Total daily dose of insulin 43.2 units basal 56% 24.3 Bolus 44% 19 units She is entering in 90 carbs per day Basal rate(s) (units/hour) : 12 AM? to 12 AM 1.6 units / hr Bolus setting Insulin Carbohydrate Ratio (s) 12 AM? to 12 PM? 1:3.5 12 PM to 12 AM? 1:3.5 Correction Factor / Sensitivity Factor 12 AM? to 12 PM? 1:20 Active Insulin Time:?3.o Has retinopathy: Last eye examination 10/14 she will schedule Has neuropathy. Symptoms: + numbness and tingling in legs. She is on gabapentin. Has Nephropathy: 07/19/24 microalbumin 184 02/18/25 eGFR>60 last seen by Nephrology in July at which time Noel inhibitor dose was increased. 04/11/25 eGFR 59 Has CAD not on statin. No prior issues with statins per patient. Takes Zetia last LDL 155 Hypoglycemia: rare hypoglycemia Hyperglycemia: denies polyuria, nocturia 2-3x/night PFSH Medical History (Updated 04/12/25 @ 15:30 by Iman Joy NP) Hyperlipidemia Asthma DEVYN (obstructive sleep apnea) Osteomyelitis Wound of left foot DM2 (diabetes mellitus, type 2) Hyperlipidemia LDL goal <100 CAD (coronary artery disease) Retinopathy Anxiety Depression Type 2 diabetes mellitus with hyperglycemia, with long-term current use of insulin Proteinuria Type 2 diabetes mellitus with other diabetic kidney complication Essential hypertension Obesity due to excess calories Type 2 diabetes mellitus with diabetic polyneuropathy Surgical History Hx of breast biopsy Hx of section Hx of tubal ligation Hx of coronary artery bypass surgery Family History Maternal Grandmother Diabetes Cervical cancer Brother Diabetes Sister Breast cancer Social History Household Members: Family Household Members Other:: 1 Housing: Apartment Alcohol intake: never Patient Tobacco Use Status: Never used Tobacco Second Hand Smoke Exposure: No service: No Current occupational status: unemployed Female Reproductive History Menstrual Age of Menarche: 11 Physical Exam Vital Signs: Last Vital Signs Pulse 87 04/12/25 14:41 BP 120/60 04/12/25 14:41 Pulse Ox 95 04/12/25 14:41 Oxygen Delivery Method Room Air 04/12/25 14:41 BMI result Body Mass Index 32.5 Const Other: Absence of Cushingoid features. Absence of acromegalic features. Neck exam reveals nl size thyroid about 15 gms. No thyroid nodules palpable. Heart S1 S2, Reg R/R. No M/R G. Skin exam reveals absence of vitiligo or acanthosis nigricans. No edema Foot exam deferred being seen weekly for wound care. Results Reviewed Results Reviewed: Laboratory Last Values Glucose (Clinic) 144 mg/dL (60-115) H 04/12/25 14:47 Assessment & Plan Assessment & Plan (1) Type 2 diabetes mellitus with other diabetic kidney complication: Code(s): E11.29 - Type 2 diabetes mellitus with other diabetic kidney complication Category: Medical (2) Hyperlipidemia: Code(s): E78.5 - Hyperlipidemia, unspecified Category: Medical Plan: Patient reports she was previously on a statin. To her knowledge she did not have a side effect or change in liver function tests. We will restart statin and continue Zetia. She was advised if she develops muscle aches to notify our office Plan 49-year-old diabetic with nephropathy, retinopathy and neuropathy with greatly improved glycemic control. Settings changed last visit. Current pump download shows an average of 158 The patient had an opportunity to ask questions regarding treatment plan. The patient expressed understanding and agreement with the above treatment plan. The patient is aware they should contact our office by phone for worsening glucose readings or for any low blood sugars which may warrant a change in diabetes medication. Compliance is encouraged with medications and any followup testing/consults which may have been ordered. Medications: New atorvastatin 10 mg PO QPM 30 days 30 tabs 3RF Refilled Dexcom G7 Sensor (blood-glucose sensor) As directed every 10 days 3 ea 11RF NS On Hold blood-glucose transmitter (Dexcom G6 Transmitter device) Hold Comment: Doctor's Order once every 3 months 1 ea 4RF Resumed blood-glucose sensor (Dexcom G6 Sensor device) Discontinued Reason: Doctor's Order USE DIRECTED. CHANGE EVERY 10 DAYS 3 ea 11RF Coding Level of Care Code Est Pt Level 4 (39339) Complex EM visit Add On G2211 Diagnoses Type 2 diabetes mellitus with other diabetic kidney complication E11.29 Hyperlipidemia E78.5 Time Spent (min) 30 Comment Time spent reviewing labs/provider notes, face to face, chart doc
--- OUTSIDE RECORDS SUMMARY | 2025-04-12 14:31 | XMS_ITS | Encounter Summary ---
Author Organization [facility] Address [address] [place] [address] Care Team Providers Care Captain Airline Pilot Name Role Phone Yolie Desir MD Primary Care Provider + [phone] Reason for Visit * Reason Comments Follow-up F/u left foot ulcer, diabetic foot care Encounter Details Date Type Department Care Team ([facility] st Contact Info) Description 04/08/2025 1:45 PM EDT Office Visit Orthopedic Surgery - [place] 250 175 [facility] [address] [place] [phone] Dusty Gonzalez, DPM 175 [facility] [address] [place] [address] High ankle sprain, left, sequela (Primary Dx); Ulcer of toe of left foot, with necrosis of bone ([facility] V24, [facility] V28) Social History Tobacco Use Types Packs/Day [...] department was discharged radiographs negative for fracture diplomatic interpreter ID number [id number] ROS: GENERAL: Pt denies nausea, fever, vomiting, [...] eyes Chronic sinusitis CHF (congestive heart failure) ([facility] V24, [facility] V28) Diabetic nephropathy associated with type 2 diabetes mellitus ([facility] V24, [facility] V28) Diabetic ulcer of left midfoot associated with type 2 diabetes mellitus, with fat layer exposed ([facility] V24, [facility] V28) SOCIAL HISTORY: Social History Tobacco Use [...] Signed Date: 04/01/2025 14:46 ET Workstation ID: [id number] Transcribed By: Self Edit Transcribed Date: 04/01/2025 14:44 ET IMPRESSION: 1. High ankle sprain, left, sequela 2. Ulcer of toe of left foot, with necrosis of bone ([facility] V24, [facility] V28) PLAN: Pt was seen and examined, [...] PM EDT Office Visit Orthopedic Surgery - [place] [address] [phone] Dusty Gonzalez DPM [address] [address] documented as of this encounter Visit Diagnoses Diagnosis High ankle sprain, left, sequela- Primary Ulcer of toe of left foot, with necrosis of bone ([facility] V24, [facility] V28) documented in this encounter Care Teams Captain Airline Pilot Relationship Specialty Start Date End Date Yolie Desir MD [address] [place] [phone] PCP - General 07/25/24 documented as of this encounter
[2025-04-12 14:41] VITALS: BP 120/60; PULSE 87; O2SAT 95; BMI 32.5
[2025-04-12 14:52] LABS: Glucose, Whole Blood 144 mg/dL (60-115)
== END 2025-04-12 15:21 | disposition home or self-care (01) ==
LOC: HO.ENCR 14:29
PROVIDERS: PCP Internal Medicine; Visit Provider Nurse Practitioner Adult Health
DX: E11.29 Type 2 diabetes mellitus with other diabetic kidney complication (principal); E78.5 Hyperlipidemia, unspecified
CPT/HCPCS: 99214

== ENCOUNTER → 2025-04-12 14:29 | Outpatient (BNVA) | payer MEDICAID, SELFPAY | PROVIDERS: PCP Internal Medicine; Visit Provider Nurse Practitioner Adult Health | DX: E11.29 Type 2 diabetes mellitus with other diabetic kidney complication (principal); E78.5 Hyperlipidemia, unspecified; Z79.4 Long term (current) use of insulin | CPT/HCPCS: 82947; 99212 ==

== ENCOUNTER 2025-04-17 14:01 | Outpatient (AMB) | payer MEDICAID, SELFPAY ==
--- NOTE | 2025-04-17 14:55 | MHC.AMDMED ---
Intake Intake Visit Reasons: 30 min Athletic Equipment Manager Required: Yes Athletic Equipment Manager Language: Budget Consultant Name: Annalee Accompanied by: Daughter Allergies sulfamethoxazole [From BACTRIM] Allergy (Severe, Verified 04/12/25 15:05) FACIAL SWELLING trimethoprim [From BACTRIM] Allergy (Severe, Verified 04/12/25 15:05) FACIAL SWELLING levofloxacin [From LEVAQUIN] Allergy (Intermediate, Verified 04/12/25 15:05) REDNESS, SWELLING ITCHINESS AT IV SITE HPI Comprehensive Diabetes Asmnt Most Recent Diabetes Results: Cholesterol 216 mg/dL (<200) H 04/11/25 HDL Cholesterol 47 mg/dL (>40) 04/11/25 Triglycerides 145 mg/dL (<150) 04/11/25 Creatinine 0.99 mg/dL (0.5-1.4) 04/11/25 Blood Urea Nitrogen 20 mg/dL (9-16) H 04/11/25 Sodium 141 mmol/L (135-145) 04/11/25 Potassium 3.6 mmol/L (3.3-5.1) 04/11/25 Chloride 101 mmol/L (96-108) 04/11/25 Carbon Dioxide 28 mmol/L (22-29) 04/11/25 Calcium 10.0 mg/dL (8.4-10.2) 04/11/25 Albumin 4.2 g/dL (3.5-5.0) 04/11/25 [facility] Medical History (Updated 04/12/25 @ 15:30 by Iman Joy NP) Hyperlipidemia Asthma DEVYN (obstructive sleep apnea) Osteomyelitis Wound of left foot DM2 (diabetes mellitus, type 2) Hyperlipidemia LDL goal <100 CAD (coronary artery disease) Retinopathy Anxiety Depression Type 2 diabetes mellitus with hyperglycemia, with long-term current use of insulin Proteinuria Type 2 diabetes mellitus with other diabetic kidney complication Essential hypertension Obesity due to excess calories Type 2 diabetes mellitus with diabetic polyneuropathy Surgical History Hx of breast biopsy Hx of section Hx of tubal ligation Hx of coronary artery bypass surgery Family History Maternal Grandmother Diabetes Cervical cancer Brother Diabetes Sister Breast cancer Social History Household Members: Family Household Members Other:: 1 Housing: Apartment Alcohol intake: never Patient Tobacco Use Status: Never used Tobacco Second Hand Smoke Exposure: No service: No Current occupational status: unemployed Female Reproductive History Menstrual Age of Menarche: 11 Assessment & Plan Assessment & Plan (1) Type 2 diabetes mellitus with other diabetic kidney complication: Code(s): E11.29 - Type 2 diabetes mellitus with other diabetic kidney complication Plan: Patient presents for pump training for Omni pod 5 pump and Dexcom G6 CGM training today. The following topics were reviewed today: Dexcom G6 verses Dexcom G7 Downloaded Dexcom G7 tierra on patient's cell phone, we were unable to log in to tierra patient does not have Dexcom log in information. We called Dexcom but the wait was over 30 minutes. She did not have access to user name e-mail from her phone. Instructed patient to call Dexcom when she can log into e-mail Set up Dexcom G7 sensor on back of right arm, patient given Dexcom G7 family support specialist so she can view glucose. Instructed patient she must manually enter glucose numbers in to Omnipod family support specialist until she returns to finish process of connecting Dexcom G7 to Omnipod family support specialist ??? High Alert: 250 mg/dl ??? Low Alert: 70 mg/dl Patient understands the basic concepts of pump therapy, how to give insulin for meals and snacks, how to troubleshoot for hyper and hypoglycemia. Setting verified by CDCES, no changes made to patient's insulin pump settings at today's visit Basal rate(s) (units/hour) : 12 AM? to 12 AM 1.6 units / hr Bolus setting Insulin Carbohydrate Ratio (s) 12 AM? to 12 PM? 1:4 12 PM to 12 AM? 1:3.5 Correction Factor / Sensitivity Factor 12 AM? to 12 PM? 1:20 Active Insulin Time:?4 hours BG target range 110 mg/dL Correction threshold 120 mg/dL Coding Level of Care Code Est Pt Level 1 (97375) Diagnoses Type 2 diabetes mellitus with other diabetic kidney complication E11.29
--- OUTSIDE RECORDS SUMMARY | 2025-04-17 14:57 | XMS_ITS | Encounter Summary ---
Author Organization [employer] Address [address] [facility] [address] [place] [address] Care Team Providers Care Toggle Press Folder And Feeder Name Role Phone Yolie Desir MD Primary Care Provider + Reason for Visit * Reason Comments Med Refill Encounter Details Date Type Department Care Team (Late st Contact Info) Description 06/15/2024 Refill [facility] ADULT DENTAL [address] [place], [place] [phone] Yolie Desir MD [address] [place], [place] [phone] Diabetic nephropathy associated with type 2 diabetes mellitus ([facility]) Social History Tobacco Use Types [...] associated with type 2 diabetes mellitus ([facility]) documented in this encounter Additional Health Concerns Assessment Noted Time PHQ-9 Depression Total Score: 8 02/11/20 23 9:24 AM EDT documented as of this encounter Care Teams Toggle Press Folder And Feeder Relationship Specialty Start Date End Date Yolie Desir MD [address] [place] [id number] PCP - General Family Medicine 10/26/19 documented as of this encounter
== END 2025-04-17 14:56 | disposition home or self-care (01) ==
LOC: HO.ENCR 14:02
PROVIDERS: PCP Internal Medicine; Visit Provider Registered Nurse Diabetes Educator
DX: E11.29 Type 2 diabetes mellitus with other diabetic kidney complication (principal)

== ENCOUNTER → 2025-04-17 14:01 | Outpatient (BNVA) | payer MEDICAID, SELFPAY | PROVIDERS: PCP Internal Medicine; Visit Provider Registered Nurse Diabetes Educator | DX: E11.29 Type 2 diabetes mellitus with other diabetic kidney complication (principal) | CPT/HCPCS: 99211 ==

== ENCOUNTER 2025-04-19 12:33 | Outpatient (REF) | payer MEDICAID, SELFPAY ==
[2025-04-19 15:34] LABS: Anion Gap 10 (12-20); Blood Urea Nitrogen 16 mg/dL (9-16); Calcium 9.7 mg/dL (8.4-10.2); Carbon Dioxide 32 mmol/L (22-29); Chloride 100 mmol/L (96-108); Estimated Glomerular Filt Rate 56; Glucose Random 101 mg/dL (60-115); Potassium 3.7 mmol/L (3.3-5.1); Sodium 138 mmol/L (135-145)
[2025-04-19 16:37] LABS: B Type Natriuretic Peptide 29 pg/mL (<100)
== END 2025-04-19 12:34 | disposition home or self-care (01) ==
LOC: HO.LAB 12:33
PROVIDERS: Absent Provider Internal Medicine Cardiovascular Disease; PCP Internal Medicine; Visit Provider Internal Medicine Nephrology
DX: I50.9 Heart failure, unspecified (principal); N28.9 Disorder of kidney and ureter, unspecified; E11.21 Type 2 diabetes mellitus with diabetic nephropathy; N18.30 Chronic kidney disease, stage 3 unspecified; I10 Essential (primary) hypertension; E11.22 Type 2 diabetes mellitus with diabetic chronic kidney disease
CPT/HCPCS: 36415; 80048; 83880; 99212

== ENCOUNTER 2025-04-19 12:33 | Outpatient (AMB) | payer MEDICAID, SELFPAY ==
--- NOTE | 2025-04-19 12:36 | HO.NEPHOV ---
Vital Signs 04/19/25 12:37 Height 5 ft 7 in Weight 205 lb 6 oz BMI 32.2 BP 116/80 Blood Pressure Location Rt brachial Position Sitting Intake Visit Reasons: R/S 03/22/2025-Conf Paying Teller Required: Yes Paying Teller Language: Agricultural Science Professor Services: Paying Teller Present Paying Teller Name: Hilton [id number] Information Interpreted: clinical only Accompanied by: Daughter Allergies sulfamethoxazole [From BACTRIM] Allergy (Severe, Verified 04/19/25 12:37) FACIAL SWELLING trimethoprim [From BACTRIM] Allergy (Severe, Verified 04/19/25 12:37) FACIAL SWELLING levofloxacin [From LEVAQUIN] Allergy (Intermediate, Verified 04/19/25 12:37) REDNESS, SWELLING ITCHINESS AT IV SITE HPI Comments Details: Melissa was seen in the office today in follow-up of her chronic kidney disease on a background of diabetic nephropathy. She has history of vascular disease needing surgery for foot but currently denies any active peripheral arterial disease symptoms. She has history of coronary artery disease needing intervention. She is on LUIS inhibitor which is tolerating well. Her blood sugars are better controlled and her blood pressure is at goal. She denies any chest pain, shortness of breath, proximal nocturnal dyspnea, orthopnea, pedal edema, orthostatic or urinary symptoms. She does not take any nonsteroidal anti-inflammatories and maintain good hydration. [facility] Medical History (Updated 04/12/25 @ 15:30 by Iman Joy NP) Hyperlipidemia Asthma DEVYN (obstructive sleep apnea) Osteomyelitis Wound of left foot DM2 (diabetes mellitus, type 2) Hyperlipidemia LDL goal <100 CAD (coronary artery disease) Retinopathy Anxiety Depression Type 2 diabetes mellitus with hyperglycemia, with long-term current use of insulin Proteinuria Type 2 diabetes mellitus with other diabetic kidney complication Essential hypertension Obesity due to excess calories Type 2 diabetes mellitus with diabetic polyneuropathy Surgical History Hx of breast biopsy Hx of section Hx of tubal ligation Hx of coronary artery bypass surgery Family History Maternal Grandmother Diabetes Cervical cancer Brother Diabetes Sister Breast cancer Social History Household Members: Family Household Members Other:: 1 Housing: Apartment Alcohol intake: never Patient Tobacco Use Status: Never used Tobacco Second Hand Smoke Exposure: No service: No Current occupational status: unemployed Female Reproductive History Menstrual Age of Menarche: 11 Review of Systems Const All systems reviewed & are unremarkable except as noted in HPI and below Physical Exam Vital Signs: Last Vital Signs BP 116/80 04/19/25 12:37 BMI result Body Mass Index 32.2 Const General: comfortable and no acute distress Orientation/consciousness: patient oriented x3 HEENT Head: Yes normocephalic Mouth: Normal oral and palatal mucosa present Eyes EOM: EOMs intact bilaterally Neck Neck: Yes supple Resp Auscultation: clear to auscultation bilaterally Cardio Jugular venous distension: no JVD Rate: regular rate GI Palpation (GI): Soft to palpation Auscultation: normal bowel sounds General: Yes no CVA tenderness Back/Spine/Pelvis Back: no CVA tenderness Skin General skin exam: no rashes or lesions noted Neuro General: patient oriented x3 and moves all extremities Extrem General: Yes no pedal edema Results Reviewed Nephrology Results: Sodium 141 mmol/L (135-145) 04/11/25 Potassium 3.6 mmol/L (3.3-5.1) 04/11/25 Chloride 101 mmol/L (96-108) 04/11/25 Carbon Dioxide 28 mmol/L (22-29) 04/11/25 BUN 20 mg/dL (9-16) H 04/11/25 Creatinine 0.99 mg/dL (0.5-1.4) 04/11/25 Calcium 10.0 mg/dL (8.4-10.2) 04/11/25 PTH Intact 77.3 pg/mL (8.7-77.1) H 04/11/25 Assessment & Plan Assessment & Plan (1) CKD stage 3 secondary to diabetes: Code(s): E11.22 - Type 2 diabetes mellitus with diabetic chronic kidney disease; N18.30 - Chronic kidney disease, stage 3 unspecified Category: Medical (2) Hypertension: Code(s): I10 - Essential (primary) hypertension Category: Medical Qualifiers: Hypertension type: primary hypertension Qualified Code(s): I10 - Essential (primary) hypertension (3) Diabetic nephropathy: Code(s): E11.21 - Type 2 diabetes mellitus with diabetic nephropathy Category: Medical Qualifiers: Diabetes mellitus type: type 2 Qualified Code(s): E11.21 - Type 2 diabetes mellitus with diabetic nephropathy Plan 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 She has proteinuria. Her blood sugar control is fair. Her blood pressure is at goal. Her ACEI and Sironolactone has been on hold . ( due to ALIN ) She would benefit from a bit more weight loss. Her volume status is optimal. She has no peripheral arterial symptoms. She should stay off spironolactone. I shall start Jardiance at next visit and will consider restarting low dose ACEI at next visit based on data. Answered all questions and follow-up was given Orders: Orders Creatinine 3 Months E11.21 - Type 2 diabetes mellitus with diabetic nephropathy Blood Urea Nitrogen 3 Months E11.21 - Type 2 diabetes mellitus with diabetic nephropathy Electrolytes 3 Months E11.21 - Type 2 diabetes mellitus with diabetic nephropathy Medications: Discontinued insulin pump cart,cont inf,BT (Omnipod Dash Pods (Gen 4) subcutaneous cartridge) Discontinued Reason: Doctor's Order As directed 10 ea 11RF Coding Level of Care Code Est Pt Level 4 (46119) Diagnoses CKD stage 3 secondary to diabetes E11.22; N18.30 Primary hypertension I10 Hypertension type: primary hypertension Diabetic nephropathy associated with type 2 diabetes mellitus E11.21 Diabetes mellitus type: type 2
[2025-04-19 12:37] VITALS: BP 116/80; BMI 32.2
--- OUTSIDE RECORDS SUMMARY | 2025-04-19 12:57 | XMS_ITS | Encounter Summary ---
Author Organization [employer] Address [address] [facility] [address] [place] [address] Care Team Providers Care Armature Winder Repairer Name Role Phone Yolie Desir MD Primary Care Provider + Reason for Visit * Reason Comments Med Refill Encounter Details Date Type Department Care Team (Late st Contact Info) Description 06/15/2024 Refill [facility] ADULT DENTAL [address] [place], [place] [phone] Yolie Desir MD [address] [place], [place] [phone] Diabetic nephropathy associated with type 2 diabetes mellitus ([facility]) Social History Tobacco Use Types [...] documented as of this encounter Care Teams Armature Winder Repairer Relationship Specialty Start Date End Date Yolie Desir MD [address] [place] [id number] PCP - General Family Medicine 10/26/19 Hilda Cardoso Catalyst Manufacturing OperatorDermatology Teacher 04/18/25 documented as of this encounter
== END 2025-04-19 12:48 | disposition home or self-care (01) ==
LOC: HO.HKA 12:34
PROVIDERS: PCP Internal Medicine; Visit Provider Internal Medicine Nephrology
DX: E11.22 Type 2 diabetes mellitus with diabetic chronic kidney disease (principal); N18.30 Chronic kidney disease, stage 3 unspecified; I10 Essential (primary) hypertension; E11.21 Type 2 diabetes mellitus with diabetic nephropathy
CPT/HCPCS: 99214

== ENCOUNTER 2025-05-15 13:10 | Outpatient (REF) | payer MEDICAID, SELFPAY ==
[2025-05-15 14:15] LABS: B Type Natriuretic Peptide 98 pg/mL (<100)
[2025-05-15 14:31] LABS: Anion Gap 14 (12-20); Blood Urea Nitrogen 18 mg/dL (9-16); Calcium 10.3 mg/dL (8.4-10.2); Carbon Dioxide 31 mmol/L (22-29); Chloride 101 mmol/L (96-108); Estimated Glomerular Filt Rate 42; Glucose Random 107 mg/dL (60-115); Potassium 3.9 mmol/L (3.3-5.1); Sodium 142 mmol/L (135-145)
--- OUTSIDE RECORDS SUMMARY | 2025-05-15 15:24 | XMS_ITS | Encounter Summary ---
Author Organization [employer] Address [address] [facility] [address] [place] [address] Care Team Providers Care Slag Mixer Name Role Phone Yolie Desir MD Primary Care Provider + Reason for Visit * Reason Onset Date Comments Medication Question 05/15/2025 Encounter Details Date Type Department Care Team ([facility] st Contact Info) Description 05/15/2025 Telephone [facility] MED[facility] [address] [place], [place] [phone] Yolie Desir MD [address] [place], [place] [phone] Medication Question Social History Tobacco Use Types Packs/Day Years [...] encounter Miscellaneous Notes * Telephone Encounter - Elda Aguillon RN - 05/15/2025 2:50 PM EDT Noted. Below items are prescribed by [facility] endo office. RN returned call to patient [phone] via [employer] interpreters (#[id number]) to inform patient below items are prescribed by [facility] endo and patient will need to contact their office to request refills. Patient abruptly disconnected the call. RN attempted to contact patient x3 after disconnected call however RN was unable to reconnect with patient. If patient returns call, please advise patient to contact [facility] endo at , thank you! * Telephone Encounter - David Rizo - 05/15/2025 1:23 PM EDT Tc from pt requesting call back stating she lindsey not received glucose sensor nor the omnipod medication. Please contact pt at [phone]. (Malian Speaker) documented in this encounter Plan of Treatment Upcoming Encounters Date Type Department Care Team (Late st Contact Info) Description 05/30/2025 10:45 AM EDT Office Visit [facility] MED[facility] [address] [place] [address] Yolie Desir MD [address] [place], [place] [phone] documented as of this encounter Visit Diagnoses Not on filedocumented in this encounter Additional Health Concerns Assessment Noted Time PHQ-9 Depression Total Score: 8 02/11/20 23 9:24 AM EDT documented as of this encounter Care Teams Slag Mixer Relationship Specialty Start Date End Date Yolie Desir MD [address] [place] [phone] PCP - General Family Medicine 10/26/19 Hilda Cardoso Contact Center RepresentativeFarm Truck Driver 04/18/25 documented as of this encounter
== END 2025-05-15 13:11 | disposition home or self-care (01) ==
LOC: HO.LAB 13:10
PROVIDERS: PCP Internal Medicine; Visit Provider Internal Medicine Cardiovascular Disease
DX: I50.9 Heart failure, unspecified (principal)
CPT/HCPCS: 36415; 80048; 83880

== ENCOUNTER 2025-05-22 13:00 | Outpatient (AMB) | payer MEDICAID, SELFPAY ==
--- NOTE | 2025-05-22 07:59 | A.OFFVIS_ITS ---
Vital Signs 05/22/25 13:18 Height 5 ft 7 in Weight 209 lb 7.026 oz BMI 32.8 BP 130/70 Blood Pressure Location Rt brachial Position Sitting Pulse 93 Pulse Source Pulse Oximeter Pulse Oximetry (%) 94 Oxygen Delivery Method Room Air Intake Visit Reasons: Type 2 dm Intake Note: Patient presents today for a follow-up on Type 2 Diabetes Mellitus: Last Diabetic eye exam was on: 09/2024 Last Podiatry exam was on: Weekly appointments with Dr Gonzalez for an open ulcer. last appt 05/06/2025, pt had an infection was [facility] at[facility], was on antibiotics 15 days. Most recent HbA1c: 8.3%, 03/28/2025 Random Glucose- mg/dL, Today Clinical Resource Director Required: Yes Clinical Resource Director Language: Circulation Director Services: Clinical Resource Director Offered & Declined Accompanied by: Self / Same As Patient Allergies sulfamethoxazole (From BACTRIM) Allergy (Severe, Verified 05/22/25 13:20) FACIAL SWELLING trimethoprim (From BACTRIM) Allergy (Severe, Verified 05/22/25 13:20) FACIAL SWELLING levofloxacin (From LEVAQUIN) Allergy (Intermediate, Verified 05/22/25 13:20) REDNESS, SWELLING ITCHINESS AT IV SITE HPI Comments Details: Patient is 50 yo female with DM type 2 diagnosed in approximately 1987, here for follow up management of diabetes. She was last seen on 04/12/25 A1c 03/28/25 8.3 % 8.8% 10/24/24, 8 She was on steroids towards the end of February. She was hospitalized for antibiotics at [facility] for 3 days for a foot infection of the left foot. She reports this is improving and she has podiatry follow up next week. She is meeting tomorrow with Maria G SHERMAN as she has been having problems pairing her sensor to her pump. I am unable to download her pump today. Her current glucose reading is 128 Currently on an Omnipod 5 pump. Takes Ozempic 1.0 mg Dexcom average glucose: [ ] 14 day continuous glucose monitor report reviewed Glucose Managment indicator [ ] % Days with CGM data [ ] % TIme in ranges: [ ] % very high (above 250) [ ] % high ?(181-250) [ ] % in range ?(70-180] [ ] % low (69-55) [ ] % ?very low (below 54) [ ] Standard Deviation Interpretation [ ] Basal rate(s) (units/hour) : 12 AM? to 12 AM 1.6 units / hr Bolus setting Insulin Carbohydrate Ratio (s) 12 AM? to 12 PM? 1:3.5 12 PM to 12 AM? 1:3.5 Correction Factor / Sensitivity Factor 12 AM? to 12 PM? 1:20 Active Insulin Time:?3.o Has retinopathy: Last eye examination 10/14 she will schedule Has neuropathy. Symptoms: + numbness and tingling in legs. She is on gabapentin. Has Nephropathy: 07/19/24 microalbumin 184 02/18/25 eGFR>60 last seen by Nephrology in July at which time Noel inhibitor dose was increased. 04/11/25 eGFR 59 Has CAD not on statin. No prior issues with statins per patient. Takes Zetia last LDL 155 Hypoglycemia: rare hypoglycemia Hyperglycemia: denies polyuria, nocturia 2-3x/night [facility] Medical History (Updated 04/12/25 @ 15:30 by Iman Joy NP) Hyperlipidemia Asthma DEVYN (obstructive sleep apnea) Osteomyelitis Wound of left foot DM2 (diabetes mellitus, type 2) Hyperlipidemia LDL goal <100 CAD (coronary artery disease) Retinopathy Anxiety Depression Type 2 diabetes mellitus with hyperglycemia, with long-term current use of insu chong Proteinuria Type 2 diabetes mellitus with other diabetic kidney complication Essential hypertension Obesity due to excess calories Type 2 diabetes mellitus with diabetic polyneuropathy Surgical History Hx of breast biopsy Hx of section Hx of tubal ligation Hx of coronary artery bypass surgery Family History Maternal Grandmother Diabetes Cervical cancer Brother Diabetes Sister Breast cancer Social History Household Members: Family Household Members Other:: 1 Housing: Apartment Alcohol intake: never Patient Tobacco Use Status: Never used Tobacco Second Hand Smoke Exposure: No service: No Current occupational status: unemployed Female Reproductive History Menstrual Age of Menarche: 11 Physical Exam Vital Signs: Last Vital Signs Pulse 93 05/22/25 13:18 BP 130/70 05/22/25 13:18 Pulse Ox 94 05/22/25 13:18 Oxygen Delivery Method Room Air 05/22/25 13:18 BMI result Body Mass Index 32.8 Const Other: Absence of Cushingoid features. Absence of acromegalic features. Neck exam reveals nl size thyroid about 15 gms. No thyroid nodules palpable. Heart S1 S2, Reg R/R. No M/R G. Skin exam reveals absence of vitiligo or acanthosis nigricans. No edema Visual exam of foot performed. 2 ulcerations bottom of left foot, healing with good granulation tissue, covered with collagen dressing. No inter digit maceration or fissuring. No onychomycosis, no callouses. Sensation intact to monofilament exam. Vibratory sensation is normal with 128 Hz tuning fork. Results Reviewed Results Reviewed: Laboratory Last Values Glucose (Clinic) 107 mg/dL (60-115) 05/22/25 13:23 Assessment & Plan Assessment & Plan (1) Type 2 diabetes mellitus with other diabetic kidney complication: Code(s): E11.29 - Type 2 diabetes mellitus with other diabetic kidney complication Category: Medical Plan: 50-year-old type 2 diabetic with retinopathy, neuropathy and nephropathy with a resolving foot ulcer. She has follow up with Podiatry early next week. She has follow up with clinical staff educator tomorrow to pair her sensor with her pump. I am unable to look at any of her pump download her current glucose is 120 in the office today. If any trends are detected tomorrow in terms of hyperglycemia adjustments can be made tomorrow when she sees the clinical staff educator. She is followed by Dr. Colby and had a recent reduction in EGFR. She is not scheduled to see him until July and I asked her to have additional blood work in 2 weeks' time. Orders: Orders Basic Metabolic Panel 2 Weeks E11.29 - Type 2 diabetes mellitus with other diabetic kidney complication Patient Instructions: Check your feet daily looking for any signs of infection, drainage, redness, ulceration and seek medical attention if this occurs. Break in shoes gradually and do not wear open-toed shoes or walk stocking footed or barefooted. The patient was counseled to achieve a target A1C of 7% (154 avg). Fasting blood sugars should be 90-130 in the morning and less than 180 two hours after meals. Reviewed the relationship between poor diabetic control and the development of complications. Coding Level of Care Code Est Pt Level 4 (64758) Complex EM visit Add On G2211 Diagnoses Type 2 diabetes mellitus with other diabetic kidney complication E11.29 Time Spent (min) 30 Comment Time spent reviewing labs/provider notes, face to face, chart doc
[2025-05-22 13:18] VITALS: BP 130/70; PULSE 93; O2SAT 94; BMI 32.8
[2025-05-22 13:26] LABS: Glucose, Whole Blood 107 mg/dL (60-115)
--- OUTSIDE RECORDS SUMMARY | 2025-05-22 13:34 | XMS_ITS | Clinical Summary ---
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 Active aspirin 81 mg EC tablet Take 81 mg by mouth daily. Active blood-glucose meter kit by Does not apply route. Active carvediloL (COREG) 6.25 mg tablet Take 6.25 mg by mouth 2 times daily (with meals). Active clopidogreL (PLAVIX) 75 mg tablet Take 75 mg by mouth daily. Active DIGOXIN ORAL Take 125 mcg by mouth 3 (three) times a week. MWF Active ferrous gluconate (FERGON) 324 mg (37.5 mg iron) tablet Take by mouth. Ac tive insulin glargine (Lantus Solostar U-100 Insulin) 100 unit/mL (3 mL) injection pen Inject 42 Units under the skin 1 (one) time each day in the morning. Active insulin lispro 100 unit/mL injection Inject into the skin 3 times daily (before meals). Active pantoprazole (PROTONIX) 40 mg EC tablet Take 40 mg by mouth daily. Active torsemide (DEMADEX) 20 mg tablet Take 3 tablets (60 mg total) by mouth 2 (two) times a day. Active povidone-iodin e (Betadine) 10 % topical solution Apply topically 1 (one) time each day. 473 mL 01/09/20 25 Active buPROPion XL (WELLBUTRIN XL) 150 mg 24 hr tablet Take 1 tablet (150 mg total) by mouth 1 (one) time each day in the morning. 03/27/20 25 Active ezetimibe (ZETIA) 10 mg tablet Take 1 tablet (10 mg total) by mouth 1 (one) time each day in the morning. Active FLUoxetine (PROzac) 20 mg capsule Take 1 capsule (20 mg total) by mouth 1 (one) time each day in the morning. Active Advair Diskus 250-50 mcg/dose diskus inhaler Inhale 1 puff by mouth 2 (two) times a day. Active isosorbide mononitrate (IMDUR) 30 mg 24 hr tablet Take 1 tablet (30 mg total) by mouth 1 (one) time each day in the morning. Active lamoTRIgine (LaMICtal) 100 mg tablet Take 1 tablet (100 mg total) by mouth at bedtime. Active melatonin 5 mg tablet Take 1 tablet (5 mg total) by mouth at bedtime as needed for sleep. 03/27/20 25 Active Ozempic 1 mg/dose (4 mg/3 mL) injection pen Inject 1 mg under the skin every 7 (seven) days. 03/27/20 25 Active atorvastatin (LIPITOR) 10 mg tablet Take 1 tablet (10 mg total) by mouth at bedtime. Active sertraline (ZOLOFT) 100 mg tablet Take 100 mg by mouth daily. 025 Discontinued(T herapy completed) atorvastatin (LIPITOR) 80 mg tablet Take 80 mg by mouth daily. Discontinued(D ose adjustment) exenatide ER (Bydureon) 2 mg/0.65 mL pen injector injection Inject into the skin. Discontinued(T herapy completed) FLUTICASONE PROPIONATE NASL Administer into affected nostril(s). 025 Discontinued(T herapy completed) lisinopriL (PRINIVIL,ZEST RIL) 5 mg tablet Take 5 mg by mouth daily. 025 Discontinued loratadine 10 mg capsule Take by mouth. 025 Discontinued(T herapy completed) ammonium lactate (AmLactin) 12 % lotion Apply topically if needed for dry skin. 400 g 12/26/19 25 025 Discontinued(T herapy completed) ammonium lactate (AmLactin) 12 % lotion Apply topically if needed for dry skin. 400 g 01/09/20 25 025 Discontinued(T herapy completed) acetaminophen (TYLENOL) 325 mg tablet Take 2 tablets (650 mg total) by mouth every 6 (six) hours if needed for mild pain, headaches or fever - temperature GREATER than 38 C (100.4 F) for up to 10 days. 30 tablet 05/08/20 25 025 amoxicillin-cl avulanate (AUGMENTIN) 875-125 mg per tablet Take 1 tablet by mouth 2 (two) times a day for 10 days. 20 each 05/08/20 25 025 doxycycline (VIBRAMYCIN) 100 mg capsule Take 1 capsule (100 mg total) by mouth 2 (two) times a day for 10 days. Take with at least 8 ounces (large glass) of water, do not lie down for 30 minutes after 20 each 05/08/20 25 025 Active Problems Problem Noted Date Diagnosed Date Diabetic foot infection ([facility] V24, [facility] V2 8) 05/06/2025 Allergic rhinitis 09/28/2024 Anemia 09/28/2024 Primary osteoarthritis of both hips 09/28/2024 Blindness of both eyes 09/28/2024 Chronic sinusitis 09/28/2024 CHF (congestive heart failure) ([facility] V24, [facility] V28) 09/28/2024 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 ([facility] V24, [facility] V28) 09/28/2024 Diabetic ulcer of left midfo ot associated with type 2 diabetes mellitus, with fat layer exposed ([facility] V24, [facility] V28) 09/28/2024 Encounters Date Type Department Care Team Description 05/06/2025 6:54 PM EDT - 05/08/2025 5:58 PM EDT Hospital Encounter [facility] [address] [place] [phone] Richi Bo MD Rasul, Yar M, MD Diabetic foot infection ([facility] V24, [facility] V28) (Primary Dx) Discharge Disposition: Home or Self Care 05/06/2025 1:15 PM EDT Office Visit [place] [phone] [phone] Dusty Gonzalez DPM Cellulitis of left foot (Primary Dx); Ulcer of toe of left foot, with fat layer exposed ([facility] V24, [facility] V28); Ulcer of toe of left foot, limited to breakdown of skin ([facility] V24, [facility] V28) 04/24/2025 2:30 PM EDT Office Visit [facility] [place] [phone] [phone] Dusty Gonzalez DPM Ulcer of toe of left foot, with fat layer exposed ([facility] V24, [facility] V28) (Primary Dx); Follow-up exam; Ulcer of toe of right foot, limited to breakdown of skin ([facility] V24, [facility] V28) 04/08/2025 1:45 PM EDT Office Visit [facility] [place] [phone] [phone] Dusty Gonzalez DPM High ankle sprain, left, sequela (Primary Dx); Ulcer of toe of left foot, with necrosis of bone ([facility] V24, [facility] V28) 04/01/2025 4:56 PM EDT - 04/01/2025 6:53 PM EDT Emergency [facility] Emergency [address] [place] [phone] Fall, initial encounter (Primary Dx); Sprain of left ankle, unspecified ligament, initial encounter Discharge Disposition: Home or Self Care 03/25/2025 3:30 PM EDT Office Visit [facility] [address] [phone] Dusty Gonzalez DPM Ulcer of toe of left foot, with necrosis of bone ([facility] V24, [facility] V28) (Primary Dx); Follow-up exam; Ulcer of toe of right foot, with fat layer exposed ([facility] V24, [facility] V28) from Last 3 Months Medical History Medical History Date Comments Diabetes mellitus ([facility] V24, [facility] V28) Social History Tobacco Use Types Packs/Day Years Used Date Smoking Tobacco: Never Smokeless Tobacco: Never Tobacco Cessation:Counseling Given: Not Answered Alcohol Use Standard Drinks/Week Comments Never 0 (1 standard drink = 0.6 oz pur e alcohol) Interpersonal Safety Answer Date Record ed Physical Abuse 05/07/2025 Verbal Abuse 05/07/2025 Comments Unknown Sex and Gender Information Value Date Recorded Sex Assigned at Female 02/11/2025 4:13 PM EDT Legal Sex Female 3:50 AM EST Gender Identity Female 02/11/2025 4:13 PM EDT Sexual Orientation Straight 02/11/2025 4: 13 PM EDT Obstetrics History Last Filed Vital Signs Vital Sign Reading Time Taken Comments Blood Pressure 128/77 05/08/2025 2:36 PM EDT Pulse 75 05/08/2025 2:36 PM EDT Temperature 36.5 C (97.7 F) 05/08/2025 2:36 PM EDT Respiratory Rate 20 05/08/2025 2:36 PM EDT Oxygen Saturation 99% 05/08/2025 2:36 PM EDT Inhaled Oxygen Concentration - - Weight 92.5 kg (204 lb) 05/06/2025 2:10 PM EDT Height 170.2 cm (5' 7 ) 05/06/2025 2:10 PM EDT Body Mass Index 31.95 05/06/2025 2:10 PM EDT Plan of Treatment Health Maintenance Due Date Last Done Comments Breast Cancer Screening 1973 Diabetes: Annual Retina Eye Exam 1983 Hepatitis [...] 10/20/2022, 02/03/2021, Additional history exists Diabetes: Annual Foot Exam 04/24/2026 04/24/2025 Diabetes: Annual GFR (Glomerular Filtration Rate) 05/08/2026 05/08/2025, 05/07/2025, 05/06/2025, Additional history exists Hypertension/CHF/CAD Annual BMP Blood Test 05/08/2026 05/08/2025, 05/07/2025, 05/06/2025, Additional history exists DTaP,Tdap,and Td Vaccines (2 - Td or [...] Name Priority Date/Time Associated Diagnosis Comments POCT GLUCOSE BLOOD Routine 05/08/2025 4: 09 PM EDT POCT GLUCOSE BLOOD Routine 05/08/2025 11 :14 AM EDT BASIC METABOLIC PANEL Add-On 05/08/2025 8:16 AM EDT LAVENDER - EDTA Routine 05/08/2025 8:16 AM EDT EXTRA TUBES Routine 05/08/2025 8:16 AM EDT VANCOMYCIN, TROUGH Timed 05/08/2025 8: 16 AM EDT POCT GLUCOSE BLOOD Routine 05/08/2025 7: 54 AM EDT POCT GLUCOSE BLOOD Routine 05/07/2025 9: 11 PM EDT MR FOOT WO AND W CONTRAST LEFT STAT 05/07/2025 5:13 PM EDT POCT GLUCOSE BLOOD Routine 05/07/2025 3: 02 PM EDT POCT GLUCOSE BLOOD Routine 05/07/2025 11 :21 AM EDT POCT GLUCOSE BLOOD Routine 05/07/2025 7: 48 AM EDT CBC WITH AUTO DIFFERENTIAL Routine 05/07/2025 5:57 AM EDT CBC AND DIFFERENTIAL Routine 05/07/2025 5:57 AM EDT PHOSPHORUS Routine 05/07/2025 5:57 AM EDT MAGNESIUM Routine 05/07/2025 5:57 AM EDT BASIC METABOLIC PANEL Routine 05/07/2025 5:57 AM EDT POCT GLUCOSE BLOOD Routine 05/07/2025 12 :06 AM EDT ACTIVATED PARTIAL THROMBOPLASTIN TIME Routine 05/06/2025 10:09 PM EDT PROTHROMBIN TIME WITH INR Routine 05/06/2025 10:09 PM EDT XR FOOT 3+ VIEWS LEFT STAT 05/06/2025 8:36 PM EDT LACTATE, WITH REFLEX STAT 05/06/2025 8:27 PM EDT CULTURE BLOOD STAT 05/06/2025 8:27 PM EDT CULTURE BLOOD STAT 05/06/2025 8:27 PM EDT CBC WITH AUTO DIFFERENTIAL STAT 05/06/2025 2:23 PM EDT BASIC METABOLIC PANEL STAT 05/06/2025 2:23 PM EDT CBC AND DIFFERENTIAL STAT 05/06/2025 2:23 PM EDT XR TIBIA FIBULA 2 VIEWS LEFT STAT 04/01/2025 6:13 PM EDT XR ANKLE 3+ VIEWS LEFT STAT 2:31 PM EDT XR FOOT 3+ VIEWS LEFT Routine 03/25/2025 3:14 PM EDT Follow-up exam HM HEPATITIS C SCREENING Routine 08/24/2017 HM HIV SCREENING Routine 08/24/2017 HM PAP SMEAR Routine 07/17/2015 from Last 3 Months or Most Recently Relevant to Health Maintenance Results * (ABNORMAL) POCT Glucose, blood (05/08/2025 4:09 PM EDT) Only the most recent of8 resultswithin the time period is included. Glucose POCT 183(H) 70 - 100 mg/dL 05/08/2025 4:10 PM EDT [facility] Blood Capillary blood specimen / Unknown 05/08/2025 4:09 PM EDT 05/08/2025 4:11 PM EDT Wilner Balderas MD LAB POINT OF CARE TE ST DOCKED DEVICE UNSOLICITED RESULTS Final Result Performing Organization Address [facility]/ZIP Co de Phone Number [facility] [address] [place] [address], [place] [phone] * Lavender tube (05/08/2025 8:16 AM EDT) [facility] Extra Tube Hold for add-ons. 05/08/2025 10:01 AM EDT [facility] Comment:Auto resulted. Blood Venous blood specimen / Unknown Venipuncture / Unknown 05/08/2025 8:16 AM EDT 05/08/2025 8:41 AM EDT Wilner Balderas MD LAB BLOOD ORDERABLES Final Resul t Performing Organization Address [facility]/ZIP Co de Phone Number [facility] [address] [place] [address], [place] [phone] * Vancomycin, trough (05/08/2025 8:16 AM EDT) [facility] Vancomycin Trough 14.6 10.0 - 20.0 mcg/mL LAB CHEMISTRY METHOD 05/08/2025 9:09 AM EDT [facility] Blood Venous blood specimen / Unknown Venipuncture / Unknown 05/08/2025 8:16 AM EDT 05/08/2025 8:41 AM EDT us Richi Bo MD LAB BLOOD ORDERABLES Kaila l Result [facility] [address] [place] [address], * (ABNORMAL) Basic metabolic panel (05/08/2025 8:16 AM EDT) Only the most recent of3 resultswithin the time period is included. Sodium 136 133 - 145 mmol/L LAB CHEMISTRY METHOD 05/08/2025 9:34 AM [facility] Potassium 3.6 3.5 - 5.5 mmol/L LAB CHEMISTRY METHOD 05/08/2025 9:34 AM [facility] Chloride 97 96 - 110 mmol/L LAB CHEMISTRY METHOD 05/08/2025 9:34 AM [facility] CO2 34(H) 21 - 32 mmol/L LAB CHEMISTRY METHOD 05/08/2025 9:34 AM [facility] Anion Gap 5 3 - 11 LAB CHEMISTRY METHOD 05/08/2025 9:34 AM [facility] Glucose 293(H) 70 - 100 mg/dL LAB CHEMISTRY METHOD 05/08/2025 9:34 AM [facility] BUN 12 5 - 25 mg/dL LAB CHEMISTRY METHOD 05/08/2025 9:34 AM [facility] Creatinine 0.93 0.50 - 1.10 mg/dL LAB CHEMISTRY METHOD 05/08/2025 9:34 AM [facility] eGFR 74 >=60 mL/min/1. 73m2 LAB CHEMISTRY METHOD 05/08/2025 9:34 AM [facility] Comment:Calculation based on the Chronic Kidney Disease Epidemiology Collaboration (CKD-EPI) equation refit without adjustment for race. BUN/Creatinine Ratio 12.9 LAB CHEMISTRY METHOD 05/08/2025 9:34 AM [facility] Calcium 9.8 8.5 - 10.5 mg/dL LAB CHEMISTRY METHOD 05/08/2025 9:34 AM EDT [facility] Blood Venous blood specimen / Unknown Venipuncture / Unknown 05/08/2025 8:16 AM EDT 05/08/2025 8:41 AM EDT us Wilner Balderas MD LAB BLOOD ORDERABLES Final Resul t [facility] [address] [place] [address], [place] [phone] * MR Foot wo and w Contrast Left (05/07/2025 5:13 PM EDT) Anatomical Region Laterality Modality Lower Extremities, Foot Left Magnetic Resonance 05/07/2025 5:28 PM EDT Impressions 05/07/2025 5:40 PM EDT Left plantar wound with underlying soft tissue edema but no fluid collection or abscess. Findings likely represent sequelae of chronic osteomyelitis at the lateral midfoot and 5th metatarsal with suspected minimal degenerative/reactive edema. No definitive evidence for acute osteomyelitis. Correlate with physical examination. -------- FINAL REPORT -------- Dictated By: Lucrecia Maravilla Dictated Date: 05/07/2025 17:28 ET Assigned Physician: Lucrecia Maravilla Reviewed and Electronically Signed By: Lucrecia Maravilla Signed Date: 05/07/2025 17:40 ET Workstation ID: [id number] Transcribed By: Self Edit Transcribed Date: 05/07/2025 17:28 ET Narrative 05/07/2025 5:40 PM EDT HISTORY: pain, wound, r/o osteo COMPARISON: TECHNIQUE: Exam performed on a 1.5 Amelia high-field MRI scanner. Axial T1 with fat suppression and STIR, coronal T1, T2* gradient echo and STIR, sagittal T1 and T2* gradient echo, followed by post-gadolinium axial T1 with fat suppression and coronal T1 sequences were obtained. 20 mL DOTAREM FINDINGS: There is a plantar wound involving the lateral aspect of the foot. There is no drainable fluid collection or abscess. There is focal edema deep to the wound but no extensive cellulitis or edema otherwise. There is significant sclerosis involving the 5th metatarsal with chronic deformity at the base. These findings probably represent chronic osteomyelitis with only minimal edema at the base. There are significant degenerative changes at the 4th TMT joint with some surrounding fluid. No findings of acute osteomyelitis at this joint to there are findings suggest degenerative changes or prior infection. Procedure Note Lucrecia Maravilla MD - 05/07/2025 HISTORY: pain, wound, r/o osteo COMPARISON: TECHNIQUE: Exam performed on a 1.5 Amelia high-field MRI scanner. Axial T1with fat suppression and STIR, coronal T1, T2* gradient echo and STIR,sagittal T1 and T2* gradient echo, followed by post-gadolinium axial T1with fat suppression and coronal T1 sequences were obtained. 20 mLDOTAREM FINDINGS: There is a plantar wound involving the lateral aspect of the foot. Thereis no drainable fluid collection or abscess. There is focal edema deep tothe wound but no extensive cellulitis or edema otherwise. There issignificant sclerosis involving the 5th metatarsal with chronic deformityat the base. These findings probably represent chronic osteomyelitis withonly minimal edema at the base. There are significant degenerativechanges at the 4th TMT joint with some surrounding fluid. No findings ofacute osteomyelitis at this joint to there are findings suggestdegenerative changes or prior infection. IMPRESSION: Left plantar wound with underlying soft tissue edema but no fluidcollection or abscess. Findings likely represent sequelae of chronicosteomyelitis at the lateral midfoot and 5th metatarsal with suspectedminimal degenerative/reactive edema. No definitive evidence for acuteosteomyelitis. Correlate with physical examination. -------- FINAL REPORT -------- Dictated By: Lucrecia Maravilla Dictated Date: 05/07/2025 17:28 ET Assigned Physician: Lucrecia Maravilla Reviewed and Electronically Signed By: Lucrecia Maravilla Signed Date: 05/07/2025 17:40 ET Workstation ID: [id number] Transcribed By: Self Edit Transcribed Date: 05/07/2025 17:28 ET Felicia MIKE [facility] MRI PROCEDURES Final Result * (ABNORMAL) CBC auto differential (05/07/2025 5:57 AM EDT) Only the most recent of2 resultswithin the time period is included. WBC 6.2 4.8 - 10.8 [facility] HEMETOLOGY METHOD 05/07/2025 6:46 AM [facility] RBC 3.50(L) 3.80 - 4.80 M/mcL LAB HEMETOLOGY METHOD 05/07/2025 6:46 AM [facility] Hemoglobin 10.3(L) 11.5 - 16.0 g/dL LAB HEMETOLOGY METHOD 05/07/2025 6:46 AM [facility] Hematocrit 31.7(L) 35.0 - 47.0 % LAB HEMETOLOGY METHOD 05/07/2025 6:46 AM [facility] MCV 90.6 79.0 - 98.0 FL LAB HEMETOLOGY METHOD 05/07/2025 6:46 AM [facility] MCH 29.4 27.0 - 32.0 pcg LAB HEMETOLOGY METHOD 05/07/2025 6:46 AM [facility] MCHC 32.5 32.0 - 37.0 g/dL LAB HEMETOLOGY METHOD 05/07/2025 6:46 AM [facility] RDW 12.7 11.0 - 15.0 % LAB HEMETOLOGY METHOD 05/07/2025 6:46 AM [facility] Platelets 236 130 - 400 K/mcL LAB HEMETOLOGY METHOD 05/07/2025 6:46 AM [facility] MPV 10.8 7.0 - 11.0 FL LAB HEMETOLOGY METHOD 05/07/2025 6:46 AM [facility] NRBC 0.0 <1.0 % LAB HEMETOLOGY METHOD 05/07/2025 6:46 AM [facility] NRBC Absolute 0.00 <0.10 K/mcL LAB HEMETOLOGY METHOD 05/07/2025 6:46 AM [facility] Neutrophils Relative 59.6 % LAB HEMETOLOGY METHOD 05/07/2025 6:46 AM [facility] Lymphocytes Relative 24.1 % LAB HEMETOLOGY METHOD 05/07/2025 6:46 AM [facility] Monocytes Relative 9.2 % LAB HEMETOLOGY METHOD 05/07/2025 6:46 AM [facility] Eosinophils Relative 6.0 % LAB HEMETOLOGY METHOD 05/07/2025 6:46 AM [facility] Basophils Relative 0.6 % LAB HEMETOLOGY METHOD 05/07/2025 6:46 AM [facility] Immature Granulocytes Relative 0.5 % LAB HEMETOLOGY METHOD 05/07/2025 6:46 AM [facility] Neutrophils Absolute 3.67 1.50 - 7.00 K/mcL LAB HEMETOLOGY METHOD 05/07/2025 6:46 AM [facility] Lymphocytes Absolute 1.49 1.00 - 5.00 K/mcL LAB HEMETOLOGY METHOD 05/07/2025 6:46 AM [facility] Monocytes Absolute 0.57 0.20 - 1.00 K/mcL LAB HEMETOLOGY METHOD 05/07/2025 6:46 AM [facility] Eosinophils Absolute 0.37 0.00 - 0.50 K/mcL LAB HEMETOLOGY METHOD 05/07/2025 6:46 AM [facility] Basophils Absolute 0.04 0.00 - 0.20 K/mcL LAB HEMETOLOGY METHOD 05/07/2025 6:46 AM [facility] Immature Granulocytes Absolute 0.03 0.00 - 0.03 K/mcL LAB HEMETOLOGY METHOD 05/07/2025 6:46 AM [facility] Blood Venous blood specimen / Unknown Venipuncture / Unknown 05/07/2025 5:57 AM EDT 05/07/2025 6:26 AM EDT us Richi Bo MD LAB BLOOD ORDERABLES Kaila l Result Performing Organization Address [facility]/ZIP Co de Phone Number [facility] [address] [place] [address], [place] [phone] * Phosphorus (05/07/2025 5:57 AM EDT) [facility] Phosphorus 2.9 2.5 - 4.5 mg/dL LAB CHEMISTRY METHOD 05/07/2025 7:14 AM EDT [facility] Blood Venous blood specimen / Unknown Venipuncture / Unknown 05/07/2025 5:57 AM EDT 05/07/2025 6:26 AM EDT us Richi Bo MD LAB BLOOD ORDERABLES Kaila l Result Performing Organization Address [facility] Co de Phone Number [facility] [address] [place] [address], [place] [phone] * Magnesium (05/07/2025 5:57 AM EDT) [facility] Magnesium 1.9 1.9 - 2.6 mg/dL LAB CHEMISTRY METHOD 05/07/2025 7:14 AM EDT [facility] Blood Venous blood specimen / Unknown Venipuncture / Unknown 05/07/2025 5:57 AM EDT 05/07/2025 6:26 AM EDT us Richi Bo MD LAB BLOOD ORDERABLES Kaila l Result Performing Organization Address City/[facility]/ZIP Co de Phone Number [facility] [address] [place] [address], [place] [phone] * Activated partial thromboplastin time (05/06/2025 10:09 PM EDT) [facility] aPTT 28.0 24.1 - 39.3 sec LAB COAGULATION METHOD 05/06/2025 10:36 PM EDT [facility] Blood Venous blood specimen / Unknown Venipuncture / Unknown 05/06/2025 10:09 PM EDT 05/06/2025 10:14 PM EDT us Richi oB MD LAB BLOOD ORDERABLES Kaila l Result Performing Organization Address [facility] Co de Phone Number [facility] [address] [place] [address], [place] [phone] * Prothrombin time with INR (05/06/2025 10:09 PM EDT) Protime 12.4 10.6 - 13.9 sec LAB COAGULATION METHOD 05/06/2025 10:36 PM EDT [facility] INR 1.0 LAB COAGULATION METHOD 05/06/2025 10:36 PM EDT [facility] Blood Venous blood specimen / Unknown Venipuncture / Unknown 05/06/2025 10:09 PM EDT 05/06/2025 10:14 PM EDT us Richi Bo MD LAB BLOOD ORDERABLES Kaila l Result Performing Organization Address [facility] Co de Phone Number [facility] [address] [place] [address], [place] [phone] * XR Foot 3+ Views Left (05/06/2025 8:36 PM EDT) Only the most recent of2 resultswithin the time period is included. Anatomical Region Laterality Modality Lower Extremities, Foot Left Radiogra phic Imaging 05/07/2025 9:05 AM EDT Impressions 05/07/2025 9:08 AM EDT Impression: 1. No specific findings of active osteomyelitis are noted. 2. Stable sclerosis and cortical thickening of the fifth metatarsal. 3. Diffuse soft tissue swelling with plantar soft tissue ulcer. [place] ([id number]) -------- FINAL REPORT -------- Dictated By: Tawanna Knott Dictated Date: 05/07/2025 09:05 ET Assigned Physician: Tawanna Knott Reviewed and Electronically Signed By: Tawanna Knott Signed Date: 05/07/2025 09:08 ET Workstation ID: [id number] Transcribed By: Self Edit Transcribed Date: 05/07/2025 09:05 ET Narrative 05/07/2025 9:08 AM EDT History: Wound infection left foot. Comparison: Left ankle series 04/01/25 Findings: AP, oblique and lateral views of the left foot. Diffuse soft tissue swelling is present. A plantar soft tissue ulcer is noted at the level of the midfoot. No subcutaneous gas or retained opaque foreign body is seen. Diffuse cortical thickening and sclerosis of the fifth metatarsal is similar to the previous left ankle series. There are arthritic changes throughout the midfoot. Posterior and plantar calcaneal spurs are seen. No focal cortical destruction or aggressive periostitis is seen. Procedure Note Tawanna Knott MD - 05/07/2025 History: Wound infection left foot. Comparison: Left ankle series 04/01/25 Findings: AP, oblique and lateral views of the left foot. Diffuse soft tissue swelling is present. A plantar soft tissue ulcer isnoted at the level of the midfoot. No subcutaneous gas or retained opaqueforeign body is seen. Diffuse cortical thickening and sclerosis of the fifth metatarsal issimilar to the previous left ankle series. There are arthritic changesthroughout the midfoot. Posterior and plantar calcaneal spurs are seen. No focal cortical destruction or aggressive periostitis is seen. IMPRESSION: Impression: 1. No specific findings of active osteomyelitis are noted. 2. Stable sclerosis and cortical thickening of the fifth metatarsal. 3. Diffuse soft tissue swelling with plantar [place] ([id number]) -------- FINAL REPORT -------- Dictated By: Tawanna Knott Dictated Date: 05/07/2025 09:05 ET Assigned Physician: Tawanna Knott Reviewed and Electronically Signed By: Tawanna Knott Signed Date: 05/07/2025 09:08 ET Workstation ID: [id number] Transcribed By: Self Edit Transcribed Date: 05/07/2025 09:05 ET Asher Estrada DO IMG XR PROCEDURES Final Res ult * Lactate, with reflex (05/06/2025 8:27 PM EDT) LACTIC ACID 1.4 0.4 - 2.0 mmol/L LAB CHEMISTRY METHOD 05/06/2025 9:03 PM EDT [facility] Blood Venous blood specimen / Unknown Venipuncture / Unknown 05/06/2025 8:27 PM EDT 05/06/2025 8:34 PM EDT Felicia MIKE LAB BLOOD ORDERABLES Final Resu lt Performing Organization Address [facility] Co de Phone Number [facility] [address] [place] [address], [place] [phone] * Blood Culture, Peripheral Draw #1 (05/06/2025 8:27 PM EDT) Only the most recent of2 resultswithin the time period is included. Pathologist [facility] Culture, Blood No growth at 5 days 05/11/2025 9:01 PM EDT [facility] Blood Venous blood specimen / Unknown Venipuncture / Unknown 05/06/2025 8:27 PM EDT 05/06/2025 8:34 PM EDT Felicia MIKE LAB MICROBIOLOGY - GENERAL ORDE RABLES Final Result Performing Organization Address [facility]/ZIP Co de Phone Number [facility] [address] [place] [address], [place] [phone] * XR Tibia Fibula 2 Views Left (04/01/2025 6:13 PM EDT) Anatomical Region Laterality Modality Lower Extremities, Lower Leg Left Rad iographic Imaging 04/02/2025 8:38 AM EDT Impressions 04/02/2025 8:40 AM EDT FINDINGS/IMPRESSION: No acute fracture or dislocation. Mild degenerative changes seen at the knee and ankle. Diffuse soft tissue swelling throughout the foot. Small focus of soft tissue air in the plantar aspect of the midfoot, possibly a soft tissue wound or laceration, partially imaged. Plantar calcaneal spur and Achilles enthesopathy. Arterial calcifications and stents noted. -------- FINAL REPORT -------- Dictated By: DILSHAD PICKETT Dictated Date: 04/02/2025 08:38 ET Assigned Physician: DILSHAD PICKETT Reviewed and Electronically Signed By: DILSHAD PICKETT Signed Date: 04/02/2025 08:40 ET Workstation ID: [id number] Transcribed By: Self Edit Transcribed Date: 04/02/2025 [...] Signed Date: 04/02/2025 08:40 ET Workstation ID: [id number] Transcribed By: Self Edit Transcribed Date: 04/02/2025 08:38 ET Brina MIKE IMG XR PROCEDURES Final Result * XR Ankle 3+ Views Left (04/01/2025 2:31 PM EDT) Anatomical Region Laterality Modality Lower Extremities, Ankle Left Radiogr aphic Imaging 04/01/2025 2:44 PM EDT Impressions 04/01/2025 2:46 PM EDT FINDINGS/IMPRESSION: Large dorsal calcaneal enthesophyte. Tiny calcaneal spur. Mild ankle joint space narrowing. Smooth talar dome. No acute fracture. Normal alignment. Age-indeterminate but are remote appearing avulsion injury of the distal fibula. -------- FINAL REPORT -------- Dictated By: Lucrecia Maravilla Dictated Date: 04/01/2025 14:44 ET Assigned Physician: Lucrecia Maravilla Reviewed and Electronically Signed By: Lucrecia Maravilla Signed Date: 04/01/2025 14:46 ET Workstation ID: [id number] Transcribed By: Self Edit Transcribed Date: 04/01/2025 [...] Signed Date: 04/01/2025 14:46 ET Workstation ID: [id number] Transcribed By: Self Edit Transcribed Date: 04/01/2025 14:44 ET Aditya Hernadez MD IMG XR PROCEDURES Final Result * HIV Screening (08/24/2017) HIV Screening abstracted Historical Provider HEALTH MAINTENANCE Final Result * Hepatitis C Screening (08/24/2017) Hepatitis C Screening abstracted Historical Provider HEALTH MAINTENANCE Final Result * Pap Smear (07/17/2015) Pap smear no interpretation , abstracted Historical Provider HEALTH MAINTENANCE Final Result from Last 3 Months or Most Recently Relevant to Health Maintenance Insurance MEDICAID - [place] Advance Directives * Full Code - Default (Latest Code Status on File) Date Activated Date Inactivated Comments 05/06/2025 9:35 PM 05/08/2025 7:58 PM This is orde r is used when code status has not been discussed with the patient, or code status is otherwise unknown/unconfirmed To update the patient's code status, place a code status order. Do not modify or discontinue any currently active code status orders. Care Teams Grinding Wheel Dresser Relationship Specialty Start Date End Date Yolie Desir MD [address] [place] [address] PCP - General 07/25/24
--- OUTSIDE RECORDS SUMMARY | 2025-05-22 13:34 | XMS_ITS | Encounter Summary ---
Author Organization [employer] Address [address] [place] [address] Care Team Providers Care Motor Equipment Captain Name Role Phone Yolie Desir MD Primary Care Provider + Reason for Visit * Reason Onset Date Comments Care Coordination 05/22/2025 ICP Care Plan Encounter Details Date Type Department Care Team ([facility] st Contact Info) Description 05/22/2025 Telephone [facility] [address] [place], [place] [phone] Yolie Desir MD [address] [place], [place] [phone] Care Coordination (ICP Care Plan) Social History Tobacco Use Types Packs/Day Years [...] encounter Miscellaneous Notes * Telephone Encounter - Yana Salgado - 05/22/2025 10:46 AM EDT PCP Designee has received and reviewed Care Plan from [facility]: Sash Maker: Hilda Cardoso Contact Information: [phone] Care Plan scanned into patient's EHR and notification sent to PCP. documented in this encounter Plan of Treatment Upcoming Encounters Date Type Department Care Team ([facility] st Contact Info) Description 05/30/2025 10:45 AM EDT Office Visit [facility] [address] [place] [address] Yolie Desir MD [address] [place] [address] documented as of this encounter Visit Diagnoses Not on filedocumented in this encounter Additional Health Concerns Assessment Noted Time PHQ-9 Depression Total Score: 8 02/11/20 23 9:24 AM EDT documented as of this encounter Care Teams Motor Equipment Captain Relationship Specialty Start Date End Date Yolie Desir MD [address] [place] [address] PCP - General Family Medicine 10/26/19 Hilda Cardoso Resourcing AdvisorEmergency Crew Supervisor 04/18/25 Hilda Cardoso Combination Window InstallerEmergency Crew Supervisor 05/22/25 documented as of this encounter
--- OUTSIDE RECORDS SUMMARY | 2025-05-22 13:34 | XMS_ITS | Patient Health Record ---
Author Organization [facility] Address [address] [place] [address] Care Team Providers Care Structural Steel Detailer Name Role Phone Eagle (DO NOT USE), [facility] Primary Care Provi jaison Rick Estrada Jr Unavailable Allergies Allergen (clinical drug ingredient) Drug/Non Drug Allergy documented on EMR Reaction Allergy Type Onset Date Status Levaquin Unknown Drug Allergy Active sulfamethoxazole / trimethoprim Bactrim Unknown Drug Allergy Active Reason For Referral No Information Medications Medication SIG (Take, Route, Frequency, Duration) Notes Start Date End Date Status Lisinopril 5 MG 1 tablet Orally Once a day Active Sertraline HCl 100 MG 1 tablet Orally Once a day Active HumaLOG 100 UNIT/ML Subcutaneous Active Torsemide 20 MG Orally Acti ve Lantus 100 UNIT/ML Subcutaneous Active Clopidogrel Bisulfate 75 MG 1 tablet Orally Once a day A ctive Gabapentin 100 MG Orally Ac tive Fluticasone Propionate 0.05 % 1 application to affected area Externally Once a day Activ e Carvedilol 6.25 MG Orally A ctive Aspir-81 81 MG 1 tablet Orally Once a day Active Atorvastatin Calcium 80 MG 1 tablet Orally Active Mapap 325 MG 2 tablets as needed Orally every 6 hrs Active Pantoprazole Sodium 40 MG 1 tablet Orally Once a day Active Colyte with Flavor Packs 240 GM As directed Orally Over the specified time. for 1 day(s) Active Digoxin 125 MCG 1 tablet Orally Once a day Active Ammonium Lactate Act hever Ferrous Gluconate 324 (37.5 Fe) MG Orally Active clonazePAM 0.5 MG 1 tablet Orally Active Loratadine 10 MG 1 tablet Orally Once a day Active Social History Tobacco Use: Social History Observation Description Date Details (start date - stop date) Former Smoker NA - NA Tobacco Use/Smoking Question Answer Notes Patient is a former smoker How long has it been since you last smoked? 1-5 years Alcohol Screen Question Answer Notes Did you have a drink containing alcohol in the p ast year? No Points 0 Interpretation Negative Problems Problem Type SNOMED Code ICD Code Onset Dates Problem Status W/U Status Risk Notes Problem 24054639 Epigastric pain (R10.13) Active confirmed Problem 952346059 Gastroesophageal reflux disease, esophagitis presence not specified (K21.9) Active confirmed Problem 65197240 Diarrhea, unspecified type (R19.7) Active confirmed Plan Of Treatment Future Test Test Name Order Date UPPER GI ENDOSCOPY 09/09/2017 COLONOSCOPY 09/09/2017 Insurance Providers Payer Name Payer Address Payer Phone Subscriber Number Group Number Insured Name Patient Relationship to Insured Coverage Start Date Coverage End Date MEDICAID OF [facility] [address] [place] [phone] [id number] MONI YEE Self - patient is the insured Medical (General) History Medical History History ICD Code diabetes mellitus coronary artery disease with history of [place] 2016 kidney disease hypertension sleep apnea asthma systolic congestive heart failure depression neuropathy Surgical History Surgery Date(Month/Year) corneal transplant-right eye 2014 left hand surgery 2014 coronary artery bypass graft 01/2016, PCI with JOSE of mid LAD and ramus 03/06 after occlusion of GUNN and SVG graft 2016 tubal ligation cholecystectomy uterine polypectomy
--- OUTSIDE RECORDS SUMMARY | 2025-05-22 13:34 | XMS_ITS | Clinical Summary ---
Author Organization [facility] Address [address] [place] [address] Phone Care Team Providers Care Chief Fishery Division Name Role Phone Yolie Desir MD Primary Care Provider [phone] Allergies Active Allergy Reactions Criticality Noted Date [...] 09/19/2017, 12/10/2015, Additional history exists [place] Care Teams Chief Fishery Division Relationship Specialty Start Date End Date Yolie Desir MD [address] [place] [address] PCP - General Internal Medicine 04/22/21
== END 2025-05-22 14:02 | disposition home or self-care (01) ==
LOC: HO.ENCR 13:01
PROVIDERS: PCP Internal Medicine; Visit Provider Nurse Practitioner Adult Health
DX: E11.29 Type 2 diabetes mellitus with other diabetic kidney complication (principal); Z96.41 Presence of insulin pump (external) (internal)
CPT/HCPCS: 99214

== ENCOUNTER → 2025-05-22 13:00 | Outpatient (BNVA) | payer MEDICAID, SELFPAY | PROVIDERS: PCP Internal Medicine; Visit Provider Nurse Practitioner Adult Health | DX: E11.29 Type 2 diabetes mellitus with other diabetic kidney complication (principal) | CPT/HCPCS: 82947; 99212 ==

== ENCOUNTER 2025-05-23 13:12 | Outpatient (AMB) | payer MEDICAID, SELFPAY ==
--- OUTSIDE RECORDS SUMMARY | 2025-05-23 13:20 | XMS_ITS | Clinical Summary ---
Author Organization [facility] Address [address] [place] [address] Phone Care Team Providers Care Financial Secretary Name Role Phone Yolie Desir MD Primary Care Provider [phone] Allergies Active Allergy Reactions Criticality Noted Date [...] Insurance Medicaid [place] Care Teams Financial Secretary Relationship Specialty Start Date End Date Yolie Desir MD [address] [place] [address] PCP - General Internal Medicine 04/22/21
--- OUTSIDE RECORDS SUMMARY | 2025-05-23 13:20 | XMS_ITS | Patient Health Record ---
Author Organization [facility] Address [address] [place] [address] Care Team Providers Care Butter Maker Name Role Phone Eagle (DO NOT USE), [facility] Primary Care Provi jaison Rick Estrada Jr Unavailable [phone] Allergies Allergen (clinical drug ingredient) Drug/Non Drug [...] Problem Status W/U Status Risk Notes Problem 88457349 Epigastric pain (R10.13) Active confirmed Problem 323448703 Gastroesophageal reflux disease, esophagitis presence not specified (K21.9) Active confirmed Problem 37004098 Diarrhea, unspecified type (R19.7) Active confirmed Plan Of Treatment Future Test Test Name Order Date UPPER GI ENDOSCOPY 09/09/2017 COLONOSCOPY 09/09/2017 Insurance Providers Payer Name Payer Address Payer Phone Subscriber Number Group Number Insured Name Patient Relationship to Insured Coverage Start Date Coverage End Date MEDICAID OF [facility] [address] [place] [phone] [id number] MONI YEE Self - patient is the insured Medical (General) History Medical History History ICD Code diabetes mellitus coronary artery disease with history of [place] 2016 kidney disease hypertension sleep apnea asthma systolic congestive heart failure depression neuropathy Surgical History Surgery Date(Month/Year) corneal transplant-right eye 2014 left hand surgery 2014 coronary artery bypass graft 01/2016, PCI with JOSE of mid LAD and ramus 03/06 after occlusion of GUNN and SVG graft 2016 tubal ligation cholecystectomy uterine polypectomy
--- OUTSIDE RECORDS SUMMARY | 2025-05-23 13:20 | XMS_ITS | Encounter Summary ---
Author Organization [employer] Address [address] [place] [address] Care Team Providers Care Butadiene Compressor Operator Name Role Phone Yolie Desir MD Primary Care Provider + Reason for Visit * Reason Onset Date Comments Care Coordination 05/22/2025 ICP Care Plan Encounter Details Date Type Department Care Team ([facility] st Contact Info) Description 05/22/2025 Telephone [facility] [address] [place], [place] [phone] Yolie Desir MD [address] [place], [place] [phone] Care Coordination (ICP Care Plan) Social History [...] has received and reviewed Care Plan from [facility]: Paving Supervisor: Hilda Cardoso Contact Information: [phone] Care Plan scanned into patient's EHR and notification sent to PCP. documented in this encounter Plan of Treatment Upcoming Encounters Date Type Department Care Team ([facility] st Contact Info) Description 05/30/2025 10:45 AM EDT Office Visit [facility] [address] [place] [address] Yolie Desir MD [address] [place] [address] documented as of this encounter Visit Diagnoses Not on filedocumented in this encounter Additional Health Concerns Assessment Noted Time PHQ-9 Depression Total Score: 8 02/11/20 23 9:24 AM EDT documented as of this encounter Care Teams Butadiene Compressor Operator Relationship Specialty Start Date End Date Yolie Desir MD [address] [place] [address] PCP - General Family Medicine 10/26/19 Hilda Cardoso Disassembler ProductHead Sulfide Operator 04/18/25 Hilda Cardoso Quality Assurance ClerkHead Sulfide Operator 05/22/25 documented as of this encounter
--- OUTSIDE RECORDS SUMMARY | 2025-05-23 13:20 | XMS_ITS | Clinical Summary ---
Author Organization 175 [facility] Address [address] [place] [address] Phone Care Team Providers Care Double End Tenoner Operator Name Role Phone Yolie Desir MD Primary Care Provider + [phone] Allergies Active Allergy Reactions Criticality Noted Date [...] Noted Date Diagnosed Date Diabetic foot infection ([facility] V24, [facility] V2 8) 05/06/2025 Allergic rhinitis 09/28/2024 Anemia 09/28/2024 Primary osteoarthritis of both hips 09/28/2024 Blindness of both eyes 09/28/2024 Chronic sinusitis 09/28/2024 CHF (congestive heart failure) ([facility] V24, [facility] V28) 09/28/2024 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 ([facility] V24, [facility] V28) 09/28/2024 Diabetic ulcer of left midfo ot associated with type 2 diabetes mellitus, with fat layer exposed ([facility] V24, [facility] V28) 09/28/2024 Encounters Date Type Department Care Team Description 05/06/2025 6:54 PM EDT - 05/08/2025 5:58 PM EDT Hospital Encounter [facility] [address] [place] [phone] Richi Bo MD Rasul, Yar M, MD Diabetic foot infection ([facility] V24, [facility] V28) (Primary Dx) Discharge Disposition: Home or Self Care 05/06/2025 1:15 PM EDT Office Visit [place] [phone] [phone] Dusty Gonzalez DPM Cellulitis of left foot (Primary Dx); Ulcer of toe of left foot, with fat layer exposed ([facility] V24, [facility] V28); Ulcer of toe of left foot, limited to breakdown of skin ([facility] V24, [facility] V28) 04/24/2025 2:30 PM EDT Office Visit [facility] [phone] [phone] Dusty Gonzalez DPM Ulcer of toe of left foot, with fat layer exposed ([facility] V24, [facility] V28) (Primary Dx); Follow-up exam; Ulcer of toe of right foot, limited to breakdown of skin ([facility] V24, [facility] V28) 04/08/2025 1:45 PM EDT Office Visit [facility] [place] [phone] [phone] Dusty Gonzalez DPM High ankle sprain, left, sequela (Primary Dx); Ulcer of toe of left foot, with necrosis of bone ([facility] V24, [facility] V28) 04/01/2025 4:56 PM EDT - 04/01/2025 6:53 PM EDT Emergency [facility] Emergency [address] [place] [phone] Fall, initial encounter (Primary Dx); Sprain of left ankle, unspecified ligament, initial encounter Discharge Disposition: Home or Self Care 03/25/2025 3:30 PM EDT Office Visit [facility] [address] [phone] Dusty Gonzalez DPM Ulcer of toe of left foot, with necrosis of bone ([facility] V24, [facility] V28) (Primary Dx); Follow-up exam; Ulcer of toe of right foot, with fat layer exposed ([facility] V24, [facility] V28) from Last 3 Months Medical History Medical History Date Comments Diabetes mellitus ([facility] V24, [facility] V28) Social History Tobacco Use [...] - 100 mg/dL 05/08/2025 4:10 PM EDT [facility] Blood Capillary blood specimen / Unknown 05/08/2025 4:09 PM EDT 05/08/2025 4:11 PM EDT Wilner Balderas MD LAB POINT OF CARE TE ST DOCKED DEVICE UNSOLICITED RESULTS Final Result Performing Organization Address [facility]/ZIP Co de Phone Number [facility] [address] [place] [address], [place] [phone] * Lavender tube (05/08/2025 8:16 AM EDT) [facility] Extra Tube Hold for add-ons. 05/08/2025 10:01 AM EDT [facility] Comment:Auto resulted. Blood Venous blood specimen / Unknown Venipuncture / Unknown 05/08/2025 8:16 AM EDT 05/08/2025 8:41 AM EDT Wilner Balderas MD LAB BLOOD ORDERABLES Final Resul t Performing Organization Address [facility]/ZIP Co de Phone Number [facility] [address] [place] [address], [place] [phone] * Vancomycin, trough (05/08/2025 8:16 AM EDT) [facility] Vancomycin Trough 14.6 10.0 - 20.0 mcg/mL LAB CHEMISTRY METHOD 05/08/2025 9:09 AM EDT [facility] Blood Venous blood specimen / Unknown Venipuncture / Unknown 05/08/2025 8:16 AM EDT 05/08/2025 8:41 AM EDT us Richi Bo MD LAB BLOOD ORDERABLES Kaila l Result [facility] [address] [place] [address], * (ABNORMAL) Basic metabolic panel (05/08/2025 8:16 AM EDT) Only the most recent of3 resultswithin the time period is included. Sodium 136 133 - 145 mmol/L LAB CHEMISTRY METHOD 05/08/2025 9:34 AM [facility] Potassium 3.6 3.5 - 5.5 mmol/L LAB CHEMISTRY METHOD 05/08/2025 9:34 AM [facility] Chloride 97 96 - 110 mmol/L LAB CHEMISTRY METHOD 05/08/2025 9:34 AM [facility] CO2 34(H) 21 - 32 mmol/L LAB CHEMISTRY METHOD 05/08/2025 9:34 AM [facility] Anion Gap 5 3 - 11 LAB CHEMISTRY METHOD 05/08/2025 9:34 AM [facility] Glucose 293(H) 70 - 100 mg/dL LAB CHEMISTRY METHOD 05/08/2025 9:34 AM [facility] BUN 12 5 - 25 mg/dL LAB CHEMISTRY METHOD 05/08/2025 9:34 AM [facility] Creatinine 0.93 0.50 - 1.10 mg/dL LAB CHEMISTRY METHOD 05/08/2025 9:34 AM [facility] eGFR 74 >=60 mL/min/1. 73m2 LAB CHEMISTRY METHOD 05/08/2025 9:34 AM [facility] Comment:Calculation based on the Chronic Kidney Disease Epidemiology Collaboration (CKD-EPI) equation refit without adjustment for race. BUN/Creatinine Ratio 12.9 LAB CHEMISTRY METHOD 05/08/2025 9:34 AM [facility] Calcium 9.8 8.5 - 10.5 mg/dL LAB CHEMISTRY METHOD 05/08/2025 9:34 AM EDT [facility] Blood Venous blood specimen / Unknown Venipuncture / Unknown 05/08/2025 8:16 AM EDT 05/08/2025 8:41 AM EDT us Wilner Balderas MD LAB BLOOD ORDERABLES Final Resul t [facility] [address] [place] [address], [place] [phone] * MR Foot wo and w Contrast [...] Signed Date: 05/07/2025 17:40 ET Workstation ID: [id number] Transcribed By: Self Edit Transcribed Date: 05/07/2025 [...] Signed Date: 05/07/2025 17:40 ET Workstation ID: [id number] Transcribed By: Self Edit Transcribed Date: 05/07/2025 17:28 ET Felicia [facility] MRI PROCEDURES Final Result * (ABNORMAL) CBC auto differential (05/07/2025 5:57 AM EDT) Only the most recent of2 resultswithin the time period is included. WBC 6.2 4.8 - 10.8 K/[facility] LAB HEMETOLOGY METHOD 05/07/2025 6:46 AM [facility] RBC 3.50(L) 3.80 - 4.80 M/mcL LAB HEMETOLOGY METHOD 05/07/2025 6:46 AM [facility] Hemoglobin 10.3(L) 11.5 - 16.0 g/dL LAB HEMETOLOGY METHOD 05/07/2025 6:46 AM [facility] Hematocrit 31.7(L) 35.0 - 47.0 % LAB HEMETOLOGY METHOD 05/07/2025 6:46 AM [facility] MCV 90.6 79.0 - 98.0 FL LAB HEMETOLOGY METHOD 05/07/2025 6:46 AM [facility] MCH 29.4 27.0 - 32.0 pcg LAB HEMETOLOGY METHOD 05/07/2025 6:46 AM [facility] MCHC 32.5 32.0 - 37.0 g/dL LAB HEMETOLOGY METHOD 05/07/2025 6:46 AM [facility] RDW 12.7 11.0 - 15.0 % LAB HEMETOLOGY METHOD 05/07/2025 6:46 AM [facility] Platelets 236 130 - 400 K/mcL LAB HEMETOLOGY METHOD 05/07/2025 6:46 AM [facility] MPV 10.8 7.0 - 11.0 FL LAB HEMETOLOGY METHOD 05/07/2025 6:46 AM [facility] NRBC 0.0 <1.0 % LAB HEMETOLOGY METHOD 05/07/2025 6:46 AM [facility] NRBC Absolute 0.00 <0.10 K/mcL LAB HEMETOLOGY METHOD 05/07/2025 6:46 AM [facility] Neutrophils Relative 59.6 % LAB HEMETOLOGY METHOD 05/07/2025 6:46 AM [facility] Lymphocytes Relative 24.1 % LAB HEMETOLOGY METHOD 05/07/2025 6:46 AM [facility] Monocytes Relative 9.2 % LAB HEMETOLOGY METHOD 05/07/2025 6:46 AM [facility] Eosinophils Relative 6.0 % LAB HEMETOLOGY METHOD 05/07/2025 6:46 AM [facility] Basophils Relative 0.6 % LAB HEMETOLOGY METHOD 05/07/2025 6:46 AM [facility] Immature Granulocytes Relative 0.5 % LAB HEMETOLOGY METHOD 05/07/2025 6:46 AM [facility] Neutrophils Absolute 3.67 1.50 - 7.00 K/mcL LAB HEMETOLOGY METHOD 05/07/2025 6:46 AM [facility] Lymphocytes Absolute 1.49 1.00 - 5.00 K/mcL LAB HEMETOLOGY METHOD 05/07/2025 6:46 AM [facility] Monocytes Absolute 0.57 0.20 - 1.00 K/mcL LAB HEMETOLOGY METHOD 05/07/2025 6:46 AM [facility] Eosinophils Absolute 0.37 0.00 - 0.50 K/mcL LAB HEMETOLOGY METHOD 05/07/2025 6:46 AM [facility] Basophils Absolute 0.04 0.00 - 0.20 K/mcL LAB HEMETOLOGY METHOD 05/07/2025 6:46 AM [facility] Immature Granulocytes Absolute 0.03 0.00 - 0.03 K/mcL LAB HEMETOLOGY METHOD 05/07/2025 6:46 AM [facility] Blood Venous blood specimen / Unknown Venipuncture / Unknown 05/07/2025 5:57 AM EDT 05/07/2025 6:26 AM EDT us Richi Bo MD LAB BLOOD ORDERABLES Kaila l Result Performing Organization Address [facility]/ZIP Co de Phone Number [facility] [address] [place] [address], [place] [phone] * Phosphorus (05/07/2025 5:57 AM EDT) [facility] Phosphorus 2.9 2.5 - 4.5 mg/dL LAB CHEMISTRY METHOD 05/07/2025 7:14 AM EDT [facility] Blood Venous blood specimen / Unknown Venipuncture / Unknown 05/07/2025 5:57 AM EDT 05/07/2025 6:26 AM EDT us Richi Bo MD LAB BLOOD ORDERABLES Kaila l Result Performing Organization Address [facility] Co de Phone Number [facility] [address] [place] [address], [place] [phone] * Magnesium (05/07/2025 5:57 AM EDT) [facility] Magnesium 1.9 1.9 - 2.6 mg/dL LAB CHEMISTRY METHOD 05/07/2025 7:14 AM EDT [facility] Blood Venous blood specimen / Unknown Venipuncture / Unknown 05/07/2025 5:57 AM EDT 05/07/2025 6:26 AM EDT us Richi Bo MD LAB BLOOD ORDERABLES Kaila l Result Performing Organization Address City/[facility]/ZIP Co de Phone Number [facility] [address] [place] [address], [place] [phone] * Activated partial thromboplastin time (05/06/2025 10:09 PM EDT) [facility] aPTT 28.0 24.1 - 39.3 sec LAB COAGULATION METHOD 05/06/2025 10:36 PM EDT [facility] Blood Venous blood specimen / Unknown Venipuncture / Unknown 05/06/2025 10:09 PM EDT 05/06/2025 10:14 PM EDT us Richi Bo MD LAB BLOOD ORDERABLES Kaila l Result Performing Organization Address [facility] Co de Phone Number [facility] [address] [place] [address], [place] [phone] * Prothrombin time with INR (05/06/2025 10:09 PM EDT) Protime 12.4 10.6 - 13.9 sec LAB COAGULATION METHOD 05/06/2025 10:36 PM EDT [facility] INR 1.0 LAB COAGULATION METHOD 05/06/2025 10:36 PM EDT [facility] Blood Venous blood specimen / Unknown Venipuncture / Unknown 05/06/2025 10:09 PM EDT 05/06/2025 10:14 PM EDT us Richi Bo MD LAB BLOOD ORDERABLES Kaila l Result Performing Organization Address [facility] Co de Phone Number [facility] [address] [place] [address], [place] [phone] * XR Foot 3+ Views Left (05/06/2025 [...] with plantar [place] ([id number]) -------- FINAL REPORT -------- Dictated By: Tawanna Knott Dictated Date: 05/07/2025 09:05 ET Assigned Physician: Tawanna Knott Reviewed and Electronically Signed By: Tawanna Knott Signed Date: 05/07/2025 09:08 ET Workstation ID: [id number] Transcribed By: Self Edit Transcribed Date: 05/07/2025 [...] with plantar soft [place] ([id number]) -------- FINAL REPORT -------- Dictated By: Tawanna Knott Dictated Date: 05/07/2025 09:05 ET Assigned Physician: Tawanna Knott Reviewed and Electronically Signed By: Tawanna Knott Signed Date: 05/07/2025 09:08 ET Workstation ID: [id number] Transcribed By: Self Edit Transcribed Date: 05/07/2025 09:05 ET Asher Estrada DO IMG XR PROCEDURES Final Res ult * Lactate, with reflex (05/06/2025 8:27 PM EDT) LACTIC ACID 1.4 0.4 - 2.0 mmol/L LAB CHEMISTRY METHOD 05/06/2025 9:03 PM EDT [facility] Blood Venous blood specimen / Unknown Venipuncture / Unknown 05/06/2025 8:27 PM EDT 05/06/2025 8:34 PM EDT Felicia MIKE LAB BLOOD ORDERABLES Final Resu lt Performing Organization Address [facility] Co de Phone Number [facility] [address] [place] [address], [place] [phone] * Blood Culture, Peripheral Draw #1 (05/06/2025 8:27 PM EDT) Only the most recent of2 resultswithin the time period is included. Pathologist [facility] Culture, Blood No growth at 5 days 05/11/2025 9:01 PM EDT [facility] Blood Venous blood specimen / Unknown Venipuncture / Unknown 05/06/2025 8:27 PM EDT 05/06/2025 8:34 PM EDT Felicia [facility] LAB MICROBIOLOGY - GENERAL ORDE RABLES Final Result Performing Organization Address [facility]/ZIP Co de Phone Number [facility] [address] [place] [address], [place] [phone] * XR Tibia Fibula 2 Views Left [...] Signed Date: 04/02/2025 08:40 ET Workstation ID: [id number] Transcribed By: Self Edit Transcribed Date: 04/02/2025 [...] Signed Date: 04/02/2025 08:40 ET Workstation ID: [id number] Transcribed By: Self Edit Transcribed Date: 04/02/2025 [...] Signed Date: 04/01/2025 14:46 ET Workstation ID: [id number] Transcribed By: Self Edit Transcribed Date: 04/01/2025 [...] Signed Date: 04/01/2025 14:46 ET Workstation ID: [id number] Transcribed By: Self Edit Transcribed Date: 04/01/2025 [...] currently active code status orders. Care Teams Double End Tenoner Operator Relationship Specialty Start Date End Date Yolie Desir MD [address] [facility] [address] [place] [address] PCP - General 07/25/24
--- NOTE | 2025-05-23 14:00 | A.OFFVIS_ITS ---
Intake Intake Visit Reasons: DM Weeder Thinner Required: Yes Weeder Thinner Language: Senior Marketing Data Analyst Name: Yana [facility] Accompanied by: Daughter Allergies sulfamethoxazole (From BACTRIM) Allergy (Severe, Verified 05/22/25 13:20) FACIAL SWELLING trimethoprim (From BACTRIM) Allergy (Severe, Verified 05/22/25 13:20) FACIAL SWELLING levofloxacin (From LEVAQUIN) Allergy (Intermediate, Verified 05/22/25 13:20) REDNESS, SWELLING ITCHINESS AT IV SITE HPI Comprehensive Diabetes Asmnt Most Recent Diabetes Results: Creatinine, (0.5-1.4) 1.32 mg/dL 05/15/25 BUN, (9-16) 18 mg/dL H 05/15/25 Sodium, (135-145) 142 mmol/L 05/15/25 Potassium, (3.3-5.1) 3.9 mmol/L 05/15/25 Chloride, (96-108) 101 mmol/L 05/15/25 Carbon Dioxide, (22-29) 31 mmol/L H 05/15/25 Calcium, (8.4-10.2) 10.3 mg/dL H Δ 05/15/25 [facility] Medical History (Updated 04/12/25 @ 15:30 by Iman Joy NP) Hyperlipidemia Asthma DEVYN (obstructive sleep apnea) Osteomyelitis Wound of left foot DM2 (diabetes mellitus, type 2) Hyperlipidemia LDL goal <100 CAD (coronary artery disease) Retinopathy Anxiety Depression Type 2 diabetes mellitus with hyperglycemia, with long-term current use of insulin Proteinuria Type 2 diabetes mellitus with other diabetic kidney complication Essential hypertension Obesity due to excess calories Type 2 diabetes mellitus with diabetic polyneuropathy Surgical History Hx of breast biopsy Hx of section Hx of tubal ligation Hx of coronary artery bypass surgery Family History Maternal Grandmother Diabetes Cervical cancer Brother Diabetes Sister Breast cancer Social History Household Members: Family Household Members Other:: 1 Housing: Apartment Alcohol intake: never Patient Tobacco Use Status: Never used Tobacco Second Hand Smoke Exposure: No service: No Current occupational status: unemployed Female Reproductive History Menstrual Age of Menarche: 11 Assessment & Plan Assessment & Plan (1) Type 2 diabetes mellitus with other diabetic kidney complication: Code(s): E11.29 - Type 2 diabetes mellitus with other diabetic kidney complication Plan: Patient at visit to set up Dexcom G7 tierra on cell phone Patient was able to create new Dexcom account, in sign into Dexcom G7 tierra We entered Dexcom G7 code into tierra Instructed patient that when she is ready to change Omnipod 5 pod, she can enter Dexcom G7 code and serial number in to Omnipod olive grower Patient understood that she can not switch Omnipod olive grower to Dexcom G7 until she is ready to change her pod. Patient left visit with Dexcom G7 sensor trying to connect to newly downloaded Dexcom G7 tierra Instructed patient to contact certified adapted physical educator with questions Coding Level of Care Code Est Pt Level 1 (17092) Diagnoses Type 2 diabetes mellitus with other diabetic kidney complication E11.29
== END 2025-05-23 14:06 | disposition home or self-care (01) ==
LOC: HO.ENCR 13:13
PROVIDERS: PCP Internal Medicine; Visit Provider Registered Nurse Diabetes Educator
DX: E11.29 Type 2 diabetes mellitus with other diabetic kidney complication (principal)

== ENCOUNTER → 2025-05-23 13:12 | Outpatient (BNVA) | payer MEDICAID, SELFPAY | PROVIDERS: PCP Internal Medicine; Visit Provider Registered Nurse Diabetes Educator | DX: E11.29 Type 2 diabetes mellitus with other diabetic kidney complication (principal) | CPT/HCPCS: 99211 ==

== ENCOUNTER 2025-07-29 13:49 | Outpatient (REF) | payer MEDICAID, SELFPAY ==
--- OUTSIDE RECORDS SUMMARY | 2025-07-26 10:00 | XMS_ITS | Encounter Summary ---
Author Organization [facility] Address [address] [place] [address] Care Team Providers Care Research Engineer Marine Equipment Name Role Phone Yolie Desir MD Primary Care Provider + [phone] Reason for Visit * Reason Comments Wound Care Encounter Details Date Type Department Care Team (Latest Contact Info) Description 07/26/2025 10:00 AM EDT Office Visit [facility] [address] [place] [address] Shane Cash PA [address] [place] [address] Type 2 diabetes mellitus with foot ulcer (CODE) ([facility] V24, [facility] V28) (Primary Dx); Non-pressure chronic ulcer of other part of left foot with fat layer exposed ([facility] V24, [facility] V28); Type 2 diabetes mellitus with polyneuropathy ([facility] V24, [facility] V28) Social History Tobacco Use Types Packs/Day Years Used Date Smoking Tobacco: Former Cigarettes Smokeless Tobacco: Never Tobacco Cessation:Counseling Given: Not Answered Comments:Quit 2 years ago Alcohol Use Standard Drinks/Week Comments Never 0 (1 standard drink = 0.6 oz pur e alcohol) Interpersonal Safety Answer Date Record ed Physical Abuse 05/07/2025 Verbal Abuse 05/07/2025 Comments No Sex and Gender Information Value Date Recorded Sex Assigned at Female 02/11/2025 4:13 PM EDT Legal Sex Female 3:50 AM EST Gender Identity Female 02/11/2025 4:13 PM EDT Sexual Orientation Straight 02/11/2025 4: 13 PM EDT documented as of this encounter Last Filed Vital Signs Vital Sign Reading Time Taken Comments Blood Pressure 135/64 07/26/2025 10:00 AM EDT Pulse 78 07/26/2025 10:00 AM EDT Temperature 36.1 C (97 F) 07/26/2025 10:00 AM EDT Respiratory Rate 18 07/26/2025 10:00 AM EDT Oxygen Saturation - - Inhaled Oxygen Concentration - - Weight - - Height - - Body Mass Index - - documented in this encounter Functional Status * Are you deaf or do you have serious difficulty hearing? Answer Date of Assessment Author No 05/06/2025 8:29 PM EDT Ishan Bess RN * Are you blind or do you have serious difficulty seeing, even when wearing glasses? Answer Date of Assessment Author No 05/06/2025 8:29 PM EDT Ishan Bess RN * Do you have serious difficulty walking or climbing stairs? Answer Date of Assessment Author No 05/06/2025 8:29 PM EDT Ishan Bess RN * Do you have serious difficulty dressing or bathing? Answer Date of Assessment Author No 05/06/2025 8:29 PM EDT Ishan Bess RN * Because of a physical, mental, or emotional condition, do you have serious difficulty doing errandsalone such as visiting the doctor? Answer Date of Assessment Author No 05/06/2025 8:29 PM EDT Ishan Bess RN documented as of this encounter Mental Status * Because of a physical, mental, or emotional condition, do you have serious difficulty concentrating, remembering, or making decisions? (5 years old or older) Answer Entry Date Author No 05/06/2025 8:29 PM EDT Ishan Bess RN documented in this encounter Progress Notes * Hemalatha Kaminski RN - 07/26/2025 10:00 AM EDT PROVIDER ORDERS Go to ER if you are presenting with fever, chills, increased redness, pain, swelling, warmth aroundwound area and/or foul smelling odor. If you have any questions or concerns, please contact the [facility] at . Follow up(s)/ Referrals: Others: Bring in offloading shoe so we can check it at your next appointment Vascular: [facility] V[facility] 08/22/25 Arterial Ultrasound ordered 09/26/25 at 1:30pm Infectious Disease: [facility] Infectious Disease 08/20/25 [facility]: N/A Additional Orders: Maintain good blood sugar control Lidocaine Orders: Apply Lidocaine 5% Topical Ointment prior to debridements at Wound Care appointments Edema Control: (If your compression wrap(s) feel to tight, please elevate your leg(s) about heart level. If your wrap(s) are becoming painful and/or you loose sensation of toes/ are having toe discoloration (a change from your baseline), please remove / unwrap compression and notify [facility] at . ) N/A Offloading: Limit pressure to wound as much as possible Negative Pressure Wound Therapy: (If wound vac is off/non functioning for more than 2 hours, please remove vac dressing, apply a wetto dry dressing and notify your home care agency) N/A Cellular/Tissue Based Products: N/A Bathing / Showering / Hygiene: May shower with protection but DO NOT get wound dressing(s) wet. Protect dressing(s) with water repellant cover ( for example- large plastic bag or cast bag) and then may take shower. Non-wound Condition/ Other Skin Care: N/A Wound Location(s): Wound #1 (Left 5th plantar foot): Cleanser: Cleanse with Normal Saline Periwound: Apply Zinc Oxide to ravin wound Topical: N/A Primary dressing: Hydrofiber with silver (Aquacel AG)- cut to fit to wound bed Secondary dressinx4 woven gauze (non-sterile), Orthofelt Secure with: 3 conforming gauze roll, 1 paper tape Compression Therapy: N/A Dressing Change Frequency: Daily * Latrice Pineda RN - 07/26/2025 10:00 AM EDT Discharge Patient directed to check out at front end developer designer and collect visit summary with wound care directions and book follow up as directed. Dressings applied: Wound Location(s): Wound #1 (Left 5th plantar foot): Cleanser: Cleansed with Normal Saline Periwound: Applied Zinc Oxide to ravin wound Primary dressing: Hydrofiber with silver (Aquacel AG)- cut to fit to wound bed Secondary dressinx4 woven gauze (non-sterile), Orthofelt Secured with: 3 conforming gauze roll, 1 paper tape Dressing technique was demonstrated and explained. Patient questions answered. Pt discharge from wound care center without issue or incidence. documented in this encounter Plan of Treatment Upcoming Encounters Date Type Department Care Team (Late st Contact Info) Description 08/02/2025 2:15 PM EDT Clinical Support [facility] [address] [place] [phone] 08/16/2025 10:15 AM EDT Office Visit [facility] [address] [facility] [address] [place] [phone] Dusty Gonzalez DPM [address] [phone] 08/22/2025 8:30 AM EDT Consult Vascular [facility] 300 [facility] [address] [place] [phone] Isaura Beltrán MD [address] [place] [phone] 09/26/2025 1:30 PM EST Ancillary Procedure [facility] 101 300 [facility] [address] [place] [phone] Pending Results Name Type Priority Associated Diagnoses Date /Time Debridement Diabetic Ulcer Left;Plantar (5th metatarsal) Foot Procedures Routine Type 2 diabetes mellitus with foot ulcer (CODE) ([facility] V24, [facility] V28) Non-pressure chronic ulcer of other part of left foot with fat layer exposed ([facility] V24, [facility] V28) Type 2 diabetes mellitus with polyneuropathy ([facility] V24, [facility] V28) 07/26/2025 10:00 AM EDT Scheduled Procedures Name Priority Associated Diagnoses Date/Ti me EXCISION METATARSAL HEAD Ulcer of toe of left foot, with fat layer exposed ([facility] V24, [facility] V28) Chronic osteomyelitis of hindfoot, left ([facility] V24, [facility] V28) documented as of this encounter Goals Goal Patient Goal Type Associated Problems Recent Progress Patient-Stated? Author Decrease Wound Volume by X% by date (in notes) Care Plan Impaired Tissue On track( 10:25 AM EDT) Kristie Clancy RN Patient and Caregiver Understand Wound Care Education Care Plan Impaired Tissue On track( 10:25 AM EDT) Kristie Clancy RN Wound volume breakdown reduced by X% by week 4 Care Plan Impaired Tissue Kristie Clancy RN Wound volume breakdown reduced by X% by week 8 Care Plan Impaired Tissue Kristie Clancy RN Wound volume breakdown reduced by X% by week 12 Care Plan Impaired Tissue Kristie Clancy RN Quit using tobacco (cigarettes, smokeless, etc) Care Plan Education needed on impact of smoking on wound Kristie Clancy RN Reduce tobacco use (cigarettes, smokeless, etc) Care Plan Education needed on impact of smoking on wound Kristie Clancy RN Decrease Wound Volume by X% by date (in notes) Care Plan Education needed on impact of smoking on wound Kristie Clancy RN Patient and Caregiver Understand Wound Care Education Care Plan Education needed related to ulceration/compr omised skin integrity. No Kristie Sauer RN documented as of this encounter Procedures Procedure Name Priority Date/Time Associated Diagnosis Comments DEBRIDEMENT Routine 07/26/2025 10:00 AM EDT Type 2 diabetes mellitus with foot ulcer (CODE) ([facility] V[facility], [facility] V28) Non-pressure chronic ulcer of other part of left foot with fat layer exposed ([facility] V[facility], [facility] V28) Type 2 diabetes mellitus with polyneuropathy ([facility] V24, [facility] V28) documented in this encounter Visit Diagnoses Diagnosis Type 2 diabetes mellitus with foot ulcer (CODE) ([facility] V24, [facility] V28)- Primary Non-pressure chronic ulcer of other part of left foot with fat layer exposed ([facility] V24, [facility] V28) Type 2 diabetes mellitus with polyneuropathy ([facility] V24, [facility] V28) Type II or unspecified type diabetes mellitus with neurological manifestations, not stated as uncontrolled documented in this encounter Additional Health Concerns Active Problems Noted Date Diagnosed Date Impaired Tissue 06/05/2025 Education needed on impact of smoking on wound 0 06/05/2025 Education needed related to ulceration/compromised skin integrity. 06/05/2025 Assessment Noted Time PHQ-9 Depression Total Score: 4 06/05/20 25 2:39 PM EDT documented as of this encounter Care Teams Research Engineer Marine Equipment Relationship Specialty Start Date End Date Yolie Desir MD [address] [place] [phone] PCP - General 07/25/24 documented as of this encounter
--- OUTSIDE RECORDS SUMMARY | 2025-07-29 16:06 | XMS_ITS | Encounter Summary ---
Author Organization [employer] Address [address] [facility] 7[address] [place] [address] Care Team Providers Care Contract Modeler Name Role Phone Yolie Desir MD Primary Care Provider + Reason for Visit * Reason Comments Med Refill Encounter Details Date Type Department Care Team ([facility] st Contact Info) Description 12/26/2023 Refill [facility] [address] [place], [place] [phone] [facility] [address] [place] [address] Acute on chronic congestive heart failure, unspecified [...] Care Team (Late st Contact Info) Description 08/30/2025 9:15 AM EDT Office Visit [facility] MED[facility]INE [address] [place] [address] Yolie Desir MD [address] [place] [address] documented as of this encounter Visit Diagnoses Diagnosis Acute on chronic congestive heart failure, unspecified heart failure type (CMS/HCC) documented in this encounter Additional Health Concerns Assessment Noted Time PHQ-9 Depression Total Score: 8 02/11/20 23 9:24 AM EDT documented as of this encounter Care Teams Contract Modeler Relationship Specialty Start Date End Date Yolie Desir MD [address] [place] [phone] PCP - General Family Medicine 10/26/19 Hilda Cardoso Biofuels Production TechnicianEmployment Manager 04/18/25 Hilda Cardoso Food Safety CoordinatorEmployment Manager 05/22/25 documented as of this encounter
--- OUTSIDE RECORDS SUMMARY | 2025-07-29 16:06 | XMS_ITS | Encounter Summary ---
Author Organization [employer] Address [address] [facility] 7[address] [place] [address] Care Team Providers Care Faculty Support Coordinator Name Role Phone Yolie Desir MD Primary Care Provider + Reason for Visit * Reason Comments Med Refill Encounter Details Date Type Department Care Team ([facility] st Contact Info) Description 12/22/2023 Refill [facility] MEDICINE [address] [place], [place] [phone] [facility] [address] [place] [address] Acute on chronic congestive heart failure, unspecified [...] Description 08/30/2025 9:15 AM EDT Office Visit [facility] MEDICINE [address] [place] [address] Yolie Desir MD [address] [place] [address] documented as of this encounter Visit Diagnoses Diagnosis Acute on chronic congestive heart failure, unspecified heart failure type (CMS/HCC) documented in this encounter Additional Health Concerns Assessment Noted Time PHQ-9 Depression Total Score: 8 02/11/20 23 9:24 AM EDT documented as of this encounter Care Teams Faculty Support Coordinator Relationship Specialty Start Date End Date Yolie Desir MD [address] [place] [phone] PCP - General Family Medicine 10/26/19 Hilda Cardoso Residential Appliance Repair TechnicianTelevision Service Engineer 04/18/25 Hilda Cardoso Station Cleaning PorterTelevision Service Engineer 05/22/25 documented as of this encounter
--- OUTSIDE RECORDS SUMMARY | 2025-07-29 16:06 | XMS_ITS | Encounter Summary ---
Author Organization [employer] Address [address] [facility] [address] [place] [address] Care Team Providers Care Master Data Analyst Name Role Phone Yolie Desir MD Primary Care Provider + Reason for Visit * Reason Comments Med Refill Encounter Details Date Type Department Care Team ([facility] st Contact Info) Description 11/14/[address] [facility] [address] [place] [phone] Preet Blackwood MD [address] [place], [place] [phone] Social History Tobacco Use Types Packs/Day Years [...] Description 08/30/2025 9:15 [address] EDT [address] [facility] MED[facility] [address] [place] [address] Yolie Desir MD [address] [place] [address] documented as of this encounter Visit Diagnoses Not on filedocumented in this encounter Additional Health Concerns Assessment Noted Time PHQ-9 Depression Total Score: 8 02/11/20 23 9:24 AM EDT documented as of this encounter Care Teams Master Data Analyst Relationship Specialty Start Date End Date Yolie Desir MD [address] [place] [address] PCP - General Family Medicine 10/26/19 Hilda Cardoso Title LawyerPhysical Geographer 04/18/25 Hilda Cardoso Sharepoint Application ArchitectPhysical Geographer 05/22/25 documented as of this encounter
--- OUTSIDE RECORDS SUMMARY | 2025-07-29 16:06 | XMS_ITS | Encounter Summary ---
Author Organization [employer] Address [address] [facility] 7[address] [place] [address] Care Team Providers Care Outside Operator Name Role Phone Yolie Desir MD Primary Care Provider + Reason for Visit * Reason Comments Med Refill Encounter Details Date Type Department Care Team ([facility] st Contact Info) Description 01/02/2024 Refill [facility] MED[facility] [address] [place], [place] [phone] [facility] [address] [place] [address] Acute on chronic congestive heart failure, unspecified [...] Description 08/30/2025 9:15 AM EDT Office Visit [facility] MED[facility] [address] [place] [address] Yolie Desir MD [address] [place] [address] documented as of this encounter Visit Diagnoses Diagnosis Acute on chronic congestive heart failure, unspecified heart failure type (CMS/HCC) documented in this encounter Additional Health Concerns Assessment Noted Time PHQ-9 Depression Total Score: 8 02/11/20 23 9:24 AM EDT documented as of this encounter Care Teams Outside Operator Relationship Specialty Start Date End Date Yolie Desir MD [address] [place] [phone] PCP - General Family Medicine 10/26/19 Hilda Cardoso Costume Shop CoordinatorHydroelectric Mechanic 04/18/25 Hilda Cardoso Heel DipperHydroelectric Mechanic 05/22/25 documented as of this encounter
--- OUTSIDE RECORDS SUMMARY | 2025-07-29 16:06 | XMS_ITS ---
Care Plan Created on: July 29, 2025 Melissa Barnett : 1975 Sex: Female Author Organization [facility] Address [address] [place] [address] Phone Care Team Providers Care Budget Officer Name Role Phone Yolie Desir MD Primary Care Provider + [phone] Active Problems Problem Noted Date Diagnosed Date Chronic osteomyelitis of hin dfoot, left ([facility] V24, [facility] V28) 07/23/2025 Ulcer of toe of left foot, w ith fat layer exposed ([facility] V24, [facility] V28) 06/05/2025 Type 2 diabetes mellitus wit h polyneuropathy ([facility] V24, [facility] V28) 06/05/2025 Diabetic foot infection ([facility] V24, [facility] V2 8) 05/06/2025 Allergic rhinitis 09/28/2024 Anemia 09/28/2024 Primary osteoarthritis of both hips 09/28/2024 Blindness of both eyes 09/28/2024 Chronic sinusitis 09/28/2024 CHF (congestive heart failure) ([facility] V24, [facility] V28) 09/28/2024 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 ([facility] V24, [facility] V28) 09/28/2024 Type 2 diabetes mellitus wit h foot ulcer (CODE) ([facility] V24, [facility] V28) 09/28/2024 Additional Health Concerns Active Problems Noted Date Diagnosed Date Impaired Tissue 06/05/2025 Education needed on impact of smoking on wound 0 06/05/2025 Education needed related to ulceration/compromised skin integrity. 06/05/2025 Goals Goal Patient Goal Type Associated Problems Recent Progress Patient-Stated? Author Decrease Wound Volume by X% by date (in notes) Care Plan Impaired Tissue On track( 025 10:25 AM EDT) Kristie Clancy RN Patient and Caregiver Understand Wound Care Education Care Plan Impaired Tissue On track( 025 10:25 AM EDT) Kristie Clancy RN Wound [...] needed related to ulceration/compr omised skin integrity. Kristie Clancy RN Interventions Care Plan Interventions Intervention Entry Date Outcome Provide caregiver with wound care procedure information 06/05/2025 Educate caregiver on proper wound care procedures 06/05/2025 Give provider list of wound care supplies 06/05/2025 Refill wound care supplies 06/05/2025 Send Wound Care Supplies 06/05/2025 Give provider list of wound care supplies 06/05/2025 Refill wound care supplies 06/05/2025 Send Wound Care Supplies 06/05/2025 Provide caregiver with wound care procedure information 06/05/2025 Educate caregiver on proper wound care procedures 06/05/2025 Document patient eligibility for HBO 06/05/2025 Assess patient for HBO treatment 06/05/2025 Record wound depth 06/05/2025 Record total wound area 06/05/2025 Measure wound progress 06/05/2025 Create an action plan identifying patient strengths and supports 06/05/2025 Establish quit date with patient 06/05/2025 Discuss prior cessation attempts 06/05/2025 Discuss preferred method of cessation and plan 06/05/2025 Discuss barriers to smoking cessation 06/05/2025 Discuss smoking status with patient 06/05/2025 Create an action plan identifying patient strengths and supports 06/05/2025 Establish quit date with patient 06/05/2025 Discuss prior cessation attempts 06/05/2025 Discuss preferred method of cessation and plan 06/05/2025 Discuss barriers to smoking cessation 06/05/2025 Discuss smoking status with patient 06/05/2025 Provide caregiver with wound care procedure information 06/05/2025 Educate caregiver on proper wound care procedures 06/05/2025 Document patient eligibility for HBO 06/05/2025 Assess patient for HBO treatment 06/05/2025 Record wound depth 06/05/2025 Record total wound area 06/05/2025 Measure wound progress 06/05/2025 Provide caregiver with wound care procedure information 06/05/2025 Educate caregiver on proper wound care procedures 06/05/2025 Document patient eligibility for HBO 06/05/2025 Assess patient for HBO treatment 06/05/2025 Record wound depth 06/05/2025 Record total wound area 06/05/2025 Measure wound progress 06/05/2025 Provide caregiver with wound care procedure information 06/05/2025 Educate caregiver on proper wound care procedures 06/05/2025 Document patient eligibility for HBO 06/05/2025 Assess patient for HBO treatment 06/05/2025 Record wound depth 06/05/2025 Record total wound area 06/05/2025 Measure wound progress 06/05/2025 Provide caregiver with wound care procedure information 06/05/2025 Educate caregiver on proper wound care procedures 06/05/2025 Give provider list of wound care supplies 06/05/2025 Refill wound care supplies 06/05/2025 Give provider list of wound care supplies 06/05/2025 Refill wound care supplies 06/05/2025 Provide caregiver with wound care procedure information 06/05/2025 Educate caregiver on proper wound care procedures 06/05/2025 Document patient eligibility for HBO 06/05/2025 Assess patient for HBO treatment 06/05/2025 Record wound depth 06/05/2025 Record total wound area 06/05/2025 Measure wound progress 06/05/2025 Related Goals and Interventions Goal Associated Intervent ions Decrease Wound Volume by X% by date (in notes) Give provider list of wound care supplie s; Refill wound care supplies; Provide caregiver with wound care procedure information; Educate caregiver on proper wound care procedures; Document patient eligibility for HBO; Assess patient for HBO treatment; Record wound depth; Record total wound area; Measure wound progress Patient and Caregiver Unders tand Wound Care Education Provide caregiver with wound care proced ure information; Educate caregiver on proper wound care procedures; Give provider list of wound care supplies; Refill wound care supplies Wound volume breakdown reduc ed by X% by week 4 Provide caregiver with wound care proced ure information; Educate caregiver on proper wound care procedures; Document patient eligibility for HBO; Assess patient for HBO treatment; Record wound depth; Record total wound area; Measure wound progress Wound volume breakdown reduc ed by X% by week 8 Provide caregiver with wound care proced ure information; Educate caregiver on proper wound care procedures; Document patient eligibility for HBO; Assess patient for HBO treatment; Record wound depth; Record total wound area; Measure wound progress Wound volume breakdown reduc ed by X% by week 12 Provide caregiver with wound care proced ure information; Educate caregiver on proper wound care procedures; Document patient eligibility for HBO; Assess patient for HBO treatment; Record wound depth; Record total wound area; Measure wound progress Quit using tobacco (cigarett es, smokeless, etc) Create an action plan identifying patien t strengths and supports; Establish quit date with patient; Discuss prior cessation attempts; Discuss preferred method of cessation and plan; Discuss barriers to smoking cessation; Discuss smoking status with patient Reduce tobacco use (cigarett es, smokeless, etc) Create an action plan identifying patien t strengths and supports; Establish quit date with patient; Discuss prior cessation attempts; Discuss preferred method of cessation and plan; Discuss barriers to smoking cessation; Discuss smoking status with patient Decrease Wound Volume by X% by date (in notes) Give provider list of wound care supplie s; Refill wound care supplies; Send Wound Care Supplies; Provide caregiver with wound care procedure information; Educate caregiver on proper wound care procedures; Document patient eligibility for HBO; Assess patient for HBO treatment; Record wound depth; Record total wound area; Measure wound progress Patient and Caregiver Unders tand Wound Care Education Provide caregiver with wound care proced ure information; Educate caregiver on proper wound care procedures; Give provider list of wound care supplies; Refill wound care supplies; Send Wound Care Supplies
--- OUTSIDE RECORDS SUMMARY | 2025-07-29 16:06 | XMS_ITS | Clinical Summary ---
Author Organization [facility] Address [address] [place] [address] Phone Care Team Providers Care Inclinometer Tester Name Role Phone Yolie Desir MD Primary Care Provider + [phone] Allergies Active Allergy Reactions Criticality Noted Date [...] iron) tablet Take by mouth. Activ e insulin glargine (Lantus Solostar U-100 Insulin) 100 unit/mL (3 mL) injection pen Inject 42 Units under the skin 1 (one) time each day in the morning. Active insulin lispro 100 unit/mL injection Inject into the skin 3 times daily (before meals). Active pantoprazole (PROTONIX) 40 mg EC tablet Active torsemide (DEMADEX) 20 mg tablet Take 3 tablets (60 mg total) by mouth 2 (two) times a day. Active povidone-iodine (Betadine) 10 % topical solution Apply topically 1 (one) time each day. 473 mL 5 Active buPROPion XL (WELLBUTRIN XL) 150 mg 24 hr tablet Take 1 tablet (150 mg total) by mouth 1 (one) time each day in the morning. 5 Active ezetimibe (ZETIA) 10 mg tablet Take [...] mouth at bedtime as needed for sleep. 5 Active Ozempic 1 mg/dose (4 mg/3 mL) injection pen Inject 1 mg under the skin every 7 (seven) days. 5 Active atorvastatin (LIPITOR) 10 mg tablet Take 1 tablet (10 mg total) by mouth at bedtime. Active doxycycline (MONODOX) 100 mg capsule Take 1 capsule (100 mg total) by mouth 2 (two) times a day for 10 days. Take with at least 8 ounces (large glass) of water, do not lie down for 30 minutes after 20 each 5 07/05/20 25 Active Problems Problem Noted Date Diagnosed Date Chronic osteomyelitis of hin dfoot, left ([facility] V24, [facility] V28) 07/23/2025 Ulcer of toe of left foot, w ith fat layer exposed ([facility] V24, [facility] V28) 06/05/2025 Type 2 diabetes mellitus wit h polyneuropathy ([facility] V24, [facility] V28) 06/05/2025 Diabetic foot infection ([facility] V24, [facility] V2 8) 05/06/2025 Allergic rhinitis 09/28/2024 Anemia 09/28/2024 Primary osteoarthritis of both hips 09/28/2024 Blindness of both eyes 09/28/2024 Chronic sinusitis 09/28/2024 CHF (congestive heart failure) ([facility] V24, [facility] V28) 09/28/2024 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 ([facility] V24, [facility] V28) 09/28/2024 Type 2 diabetes mellitus wit h foot ulcer (CODE) ([facility] V24, [facility] V28) 09/28/2024 Encounters Date Type Department Care Team Description 07/26/2025 10:00 AM EDT Office Visit [facility] [address] [place] [phone] Shane Cash PA Type 2 diabetes mellitus with foot ulcer (CODE) ([facility] V24, [facility] V28) (Primary Dx); Non-pressure chronic ulcer of other part of left foot with fat layer exposed ([facility] V24, [facility] V28); Type 2 diabetes mellitus with polyneuropathy ([facility] V24, [facility] V28) 07/23/2025 11:00 AM EDT Office Visit [facility] [address] [place] [phone] Dusty Gonzalez, DPM Chronic osteomyelitis of hindfoot, left ([facility] V24, [facility] V28) (Primary Dx); Ulcer of toe of left foot, with fat layer exposed ([facility] V24, [facility] V28) 07/18/2025 2:45 PM EDT Office Visit [facility] [address] [place] [phone] Shane Cash PA Type 2 diabetes mellitus with foot ulcer (CODE) ([facility] V24, [facility] V28) (Primary Dx); Non-pressure chronic ulcer of other part of left foot with fat layer exposed ([facility] V24, [facility] V28) 07/11/2025 2:45 PM EDT Office Visit [facility] [address] [place] [phone] Shane Cash PA Type 2 diabetes mellitus with foot ulcer (CODE) (CMS/HCC V24, CMS/HCC V28) (Primary Dx); Non-pressure chronic ulcer of other part of left foot with fat layer exposed (CMS/HCC V24, CMS/HCC V28) 07/10/2025 3:30 PM EDT Office Visit Orthopedic Surgery [facility] [address] [phone] Dusty Gonzalez, DPM Acute osteomyelitis of left ankle or foot (CMS/HCC V24, CMS/HCC V28) (Primary Dx); Ulcer of toe of left foot, with fat layer exposed (CMS/HCC V24, CMS/HCC V28); Ulcer of toe of right foot, limited to breakdown of skin (CMS/HCC V24, CMS/HCC V28) 07/04/2025 2:30 PM EDT Office Visit [facility] [address] [place] [phone] Shane Cash PA Type 2 diabetes mellitus with foot ulcer (CODE) (CMS/HCC V24, CMS/HCC V28) (Primary Dx); Non-pressure chronic ulcer of other part of left foot with fat layer exposed (CMS/HCC V24, CMS/HCC V28) 07/02/2025 8:39 AM EDT - 07/02/2025 11:59 PM EDT Hospital Encounter [address] [phone] Type 2 diabetes mellitus with foot ulcer (CODE) (CMS/HCC V24, CMS/HCC V28); Non-pressure chronic ulcer of other part of left foot with fat layer exposed (CMS/HCC V24, CMS/HCC V28); Type 2 diabetes mellitus with polyneuropathy (CMS/HCC V24, CMS/HCC V28) Discharge Disposition: Home or Self Care 06/28/2025 2:05 PM EDT - 06/28/2025 11:59 PM EDT [facility] [address] [phone] Encounter for screening mammogram for malignant neoplasm of breast Discharge Disposition: Home or Self Care 06/25/2025 2:00 PM EDT Office Visit [facility] [address] [place] [phone] Shane Cash PA Type 2 diabetes mellitus with foot ulcer (CODE) ([facility] V24, [facility] V28) (Primary Dx); Non-pressure chronic ulcer of other part of left foot with fat layer exposed ([facility] V24, [facility] V28); Type 2 diabetes mellitus with polyneuropathy ([facility]/HCC V24, [facility] V28) 06/20/2025 Telephone [facility] [address] [place] [phone] Adenike Roa LPN 06/13/2025 Telephone [facility] [address] [place] [phone] Tena Phillips RN 06/06/2025 3:45 PM EDT Office Visit Orthopedic Surgery [facility] [address] [place] [phone] Dusty Gonzalez, DPM Metatarsalgia of left foot (Primary Dx); Ulcer of toe of left foot, with fat layer exposed ([facility] V24, [facility] V28); Ulcer of toe of left foot, limited to breakdown of skin ([facility] V24, [facility] V28) 06/05/2025 2:00 PM EDT Consult [facility] [address] [place] [phone] Shane Cash PA Type 2 diabetes mellitus with foot ulcer (CODE) ([facility] V24, CMS/HCC V28) (Primary Dx); Non-pressure chronic ulcer of other part of left foot with fat layer exposed ([facility]/HCC V24, [facility] V28); Type 2 diabetes mellitus with polyneuropathy ([facility] V24, CMS/HCC V28) 05/06/2025 6:54 PM EDT - 05/08/2025 5:58 PM EDT Hospital Encounter [facility] [address] [place] [phone] Richi Bo MD Rasul, Yar M, MD Diabetic foot infection ([facility] V24, [facility] V28) (Primary Dx) Discharge Disposition: Home or Self Care 05/06/2025 1:15 PM EDT Office Visit [facility] [place] [address] [facility] [address] [place] [phone] Dusty Gonzalez DPM Cellulitis of left foot (Primary Dx); Ulcer of toe of left foot, with fat layer exposed ([facility] V24, [facility] V28); Ulcer of toe of left foot, limited to breakdown of skin ([facility] V24, [facility] V28) from Last 3 Months Surgical History Surgery Date Site/Laterality Comments WOUND DEBRIDEMENT Left foot CORONARY ARTERY BYPASS GRAFT 2015 Medical History Medical History Date Comments Diabetes mellitus ([facility] V24, [facility] V28) Hypertension Chronic kidney disease Anxiety Depression Neuropathy Family History Medical History Relation Name Comments Diabetes Maternal Grandmother Hearing loss Maternal Grandmother Diabetes Sister Hearing loss Sister Relation Name Status Comments Maternal Grandmother Sister Social History Tobacco Use Types Packs/Day [...] 02/11/2025 4: 13 PM EDT Obstetrics History Para Term AB IAB SAB Ectopic Multiple Livin g Live Births 2 Last Filed Vital Signs Vital Sign Reading Time Taken Comments Blood Pressure 135/64 07/26/2025 10:00 AM EDT Pulse 78 07/26/2025 10:00 AM EDT Temperature 36.1 C (97 F) 07/26/2025 10:00 AM EDT Respiratory Rate 18 07/26/2025 10:00 AM EDT Oxygen Saturation 96% 07/18/2025 3:02 PM EDT Inhaled Oxygen Concentration - - Weight 92.1 kg (203 lb) 06/28/2025 2:27 PM EDT Height 170.2 cm (5' 7 ) 06/28/2025 2:27 PM EDT Body Mass Index 31.79 06/28/2025 2:27 PM EDT Plan of Treatment Upcoming Encounters Date Type Department Care Team (Late st Contact Info) Description 08/02/2025 2:15 PM EDT Clinical Support [facility] [address] [place] [phone] 08/16/2025 10:15 AM EDT Office Visit Orthopedic Surgery [facility] 250 175 [facility] [address] [place] [phone] Dusty Gonzalez, DPM [address] [phone] 08/22/2025 8:30 AM EDT Consult Vascular Surgery [facility] [place] [address] [facility] [address] [place] [phone] Isaura Beltrán MD [address] [place] [phone] 09/26/2025 1:30 PM EST Ancillary Procedure [facility] [address] [facility] [address] [place] [phone] Scheduled Procedures Name Priority Associated Diagnoses Date/Ti me EXCISION METATARSAL HEAD Ulcer of toe of left foot, with fat layer exposed (CMS/HCC V24, CMS/HCC V28) Chronic osteomyelitis of hindfoot, left (CMS/HCC V24, CMS/HCC V28) Health Maintenance Due Date Last Done Comments Diabetes: Annual Retina Eye Exam 1983 Hepatitis B Vaccines (1 of 3 - 19+ 3-dose series) 1992 Cervical Cancer Screening: Pap Smear 07/17/2018 07/17/2015 Zoster Vaccines (1 of 2) 2023 Colorectal Cancer Screening: Colonoscopy 08/24/2024 Social Influencers of Health Screening 08/24/2024 Diabetes: Annual Urine Albumin-Creatinine Ratio (uACR) 09/28/2024 COVID-19 Vaccine ( season) 2025 02/10/2023, 10/21/2021, 04/07/2021, Additional history exists Influenza Vaccine (#1) 2025 , 10/20/2022, 02/03/2021, Additional history exists Diabetes: Blood Sugar Control Test (HGBA1C) 11/30/2025 05/30/2025, 01/08/2025, 01/23/2024 Diabetes: Annual Foot Exam 04/24/2026 04/24/2025 Diabetes: Annual GFR (Glomerular Filtration Rate) 05/08/2026 05/08/2025, 05/07/2025, 05/06/2025, Additional history exists Hypertension/CHF/CAD Annual BMP Blood Test 05/08/2026 05/08/2025, 05/07/2025, 05/06/2025, Additional history exists Breast Cancer Screening 06/28/2027 06/28/2025 DTaP,Tdap,and Td Vaccines (2 - Td or Tdap) 09/19/2027 09/19/2017 Cholesterol Screening (Lipid Panel) 06/25/2029 06/25/2024 HIV Screening Completed 08/24/2017 Hepatitis C Screening Completed 08/24/2017 Pneumococcal Vaccine: 50+ Years Completed 02/10/2023, 09/19/2017, 12/10/2015, Additional history exists Depression Screening Completed 06/05/2025 HIB Vaccines Aged Out No longer eligi [...] on patient's age to complete this topic Goals Goal Patient Goal Type Associated Problems [...] ulceration/compr omised skin integrity. Kristie Clancy RN Procedures Procedure Name Priority Date/Time Associated Diagnosis Comments DEBRIDEMENT Routine 07/26/2025 10:00 AM EDT Type 2 diabetes mellitus with foot ulcer (CODE) ([facility] V24, [facility] V28) Non-pressure chronic ulcer of other part of left foot with fat layer exposed ([facility] V24, [facility] V28) Type 2 diabetes mellitus with polyneuropathy ([facility] V24, [facility] V28) DEBRIDEMENT Routine 07/18/2025 2:45 PM EDT Type 2 diabetes mellitus with foot ulcer (CODE) ([facility] V24, [facility] V28) Non-pressure chronic ulcer of other part of left foot with fat layer exposed ([facility] V24, [facility] V28) DEBRIDEMENT Routine 07/11/2025 2:45 PM EDT Type 2 diabetes mellitus with foot ulcer (CODE) (CMS/HCC V24, CMS/HCC V28) Non-pressure chronic ulcer of other part of left foot with fat layer exposed (CMS/HCC V24, CMS/HCC V28) DEBRIDEMENT Routine 07/04/2025 2:30 PM EDT Type 2 diabetes mellitus with foot ulcer (CODE) (CMS/HCC V24, CMS/HCC V28) Non-pressure chronic ulcer of other part of left foot with fat layer exposed (CMS/HCC V24, CMS/HCC V28) MR FOOT WO AND W CONTRAST LEFT Routine 07/02/2025 9:37 AM EDT Type 2 diabetes mellitus with foot ulcer (CODE) (CMS/HCC V24, CMS/HCC V28) Non-pressure chronic ulcer of other part of left foot with fat layer exposed (CMS/HCC V24, CMS/HCC V28) Type 2 diabetes mellitus with polyneuropathy (CMS/HCC V24, CMS/HCC V28) MG MAMMO DIGITAL SCREENING W JOHN BILAT Routine 06/28/2025 2:35 PM EDT Encounter for screening mammogram for malignant neoplasm of breast DEBRIDEMENT Routine 06/25/2025 2:00 PM EDT Type 2 diabetes mellitus with foot ulcer (CODE) (CMS/HCC V24, CMS/HCC V28) Non-pressure chronic ulcer of other part of left foot with fat layer exposed (CMS/HCC V24, CMS/HCC V28) Type 2 diabetes mellitus with polyneuropathy (CMS/HCC V24, CMS/HCC V28) DEBRIDEMENT Routine 06/05/2025 2:00 PM EDT Type 2 diabetes mellitus with foot ulcer (CODE) (CMS/HCC V24, CMS/HCC V28) Non-pressure chronic ulcer of other part of left foot with fat layer exposed (CMS/HCC V24, CMS/HCC V28) Type 2 diabetes mellitus with polyneuropathy (CMS/HCC V24, CMS/HCC V28) POCT GLUCOSE BLOOD Routine 05/08/2025 4: 09 [...] AND DIFFERENTIAL STAT 05/06/2025 2:23 PM EDT HEPATITIS C SCREENING Routine 08/24/2017 HIV SCREENING Routine 08/24/2017 PAP SMEAR Routine 07/17/2015 from Last 3 Months or Most Recently Relevant to Health Maintenance Results * Debridement Diabetic Ulcer Left;Plantar (5th metatarsal) Foot (07/04/2025 2:30 PM EDT) Pavan Zamora MD - 07/04/2025 2:30 PM EDT RASHID Hyde 07/04/2025 3:02 PM Debridement Diabetic Ulcer Left;Plantar (5th metatarsal) Foot Performed by: RASHID Hyde Authorized by: RASHID Hyde Associated wounds: Wound Diabetic Ulcer 06/05/25 Foot Left;Plantar Consent: Consent obtained: Verbal Consent given by: Patient Risks discussed: Yes Time out: Immediately prior to the procedure a time out was called Debridement Details: Performed by: RASHID Type: surgical Level: subcutaneous tissue Pain control: Lidocaine 4% Severity of Tissue Pre Debridement: Fat layer exposed Severity of Tissue Post Debridement: Fat layer exposed Time taken: 07/04/2025 2:41 PM Length (cm): 1.9 Width (cm): 2.3 Depth (cm): 0.1 Area (cm^2): 4.37 Time taken: 07/04/2025 2:42 PM Length (cm): 1.9 Width (cm): 2.3 Depth (cm): 0.1 Percent Debrided (%): 100 Surface Area (cm^2): 4.37 Area Debrided (cm^2): 4.37 Volume (cm^3): 0.44 Tissue and other material debrided: dermis, epidermis and subcutaneous tissue Devitalized tissue debrided: biofilm and slough Instrument: Curette Amount of bleeding: small Hemostasis obtained with: Pressure and silver nitrate Procedural pain: 0 Post-procedural pain: 0 Response to treatment: Procedure was tolerated well us Shane MIKE IN CLINIC/BEDSIDE ORDERABLE S Final Result * MR Foot wo and w Contrast Left (07/02/2025 9:37 AM EDT) Only the most recent of2 resultswithin the time period is included. Anatomical Region Laterality Modality Lower Extremities, Foot Left Magnetic Resonance 07/02/2025 10:2 6 AM EDT Impressions 07/02/2025 11:03 AM EDT 1. Plantar soft tissue wound at the level of the distal 5th metatarsal. Marrow signal abnormality and contrast enhancement within the 5th metatarsal head and proximal 5th phalanx suspicious for osteomyelitis. 2. There is also a plantar soft tissue wound at the level of the 5th tarsometatarsal joint. 3. Diffuse smooth cortical thickening throughout the 5th metatarsal shaft. Given the adjacent soft tissue wounds, the findings raise the possibility of chronic osteomyelitis. -------- FINAL REPORT -------- Dictated By: Yariel Martin Dictated Date: 07/02/2025 10:26 ET Assigned Physician: Yariel Martin Reviewed and Electronically Signed By: Yariel Martin Signed Date: 07/02/2025 11:03 ET Workstation ID: [id number] Transcribed By: Self Edit Transcribed Date: 07/02/2025 10:26 ET Narrative 07/02/2025 11:03 AM EDT PROCEDURE: MRI of the left hindfoot with and without intravenous contrast. HISTORY: Wound to left plantar foot. COMPARISON: 05/07/2025. TECHNIQUE: Multiplanar multisequence MRI of the left hindfoot with and without intravenous contrast administration. IV contrast dose: 20 mL intravenous Dotarem from a 20 mL vial with 0 mL discarded. FINDINGS: Plantar soft tissue wound overlying the distal 5th metatarsal. Adjacent soft tissue edema and enhancement. There is also a plantar soft tissue wound at the level of the 5th tarsometatarsal joint. Less pronounced diffuse soft tissue edema throughout the foot. No rim-enhancing fluid collection to suggest an abscess. Contrast enhancement with T2 signal abnormality and mild T1 signal abnormality in the 5th metatarsal head and the base of the 5th proximal phalanx adjacent to the plantar soft tissue wound. Trace 5th MTP joint effusion. Long segment periosteal thickening throughout the 5th metatarsal shaft. Mild pes planus. Mild degenerative changes throughout the midfoot involving the posterior subtalar joint. Moderate degenerative changes of the 4th and 5th tarsometatarsal joints. Incidental note of a tear of the anterior tibiofibular ligament. The Lisfranc intermetatarsal ligaments are intact. Procedure Note Yariel Martin MD - 07/02/2025 PROCEDURE: MRI of the left hindfoot with and without intravenouscontrast. HISTORY: Wound to left plantar foot. COMPARISON: 05/07/2025. TECHNIQUE: Multiplanar multisequence MRI of the left hindfoot with andwithout intravenous contrast administration. IV contrast dose: 20 mL intravenous Dotarem from a 20 mL vial with 0 mLdiscarded. FINDINGS: Plantar soft tissue wound overlying the distal 5th metatarsal. Adjacentsoft tissue edema and enhancement. There is also a plantar soft tissuewound at the level of the 5th tarsometatarsal joint. Less pronounced diffuse soft tissue edema throughout the foot. Norim-enhancing fluid collection to suggest an abscess. Contrast enhancement with T2 signal abnormality and mild T1 signalabnormality in the 5th metatarsal head and the base of the 5th proximalphalanx adjacent to the plantar soft tissue wound. Trace 5th MTP jointeffusion. Long segment periosteal thickening throughout the 5thmetatarsal shaft. Mild pes planus. Mild degenerative changes throughout the midfootinvolving the posterior subtalar joint. Moderate degenerative changes ofthe 4th and 5th tarsometatarsal joints. Incidental note of a tear of the anterior tibiofibular ligament. The Lisfranc intermetatarsal ligaments are intact. IMPRESSION: 1. Plantar soft tissue wound at the level of the distal 5th metatarsal.Marrow signal abnormality and contrast enhancement within the 5thmetatarsal head and proximal 5th phalanx suspicious for osteomyelitis. 2. There is also a plantar soft tissue wound at the level of the 5thtarsometatarsal joint. 3. Diffuse smooth cortical thickening throughout the 5th metatarsalshaft. Given the adjacent soft tissue wounds, the findings raise thepossibility of chronic osteomyelitis. -------- FINAL REPORT -------- Dictated By: Yariel Martin Dictated Date: 07/02/2025 10:26 ET Assigned Physician: Yariel Martin Reviewed and Electronically Signed By: Yariel Martin Signed Date: 07/02/2025 11:03 ET Workstation ID: [id number] Transcribed By: Self Edit Transcribed Date: 07/02/2025 10:26 ET us Shane MIKE IMG MRI PROCEDURES Final Re sult * MG Mammo Digital Screening w John bilat (06/28/2025 2:35 PM EDT) Anatomical Region Laterality Modality Breast Bilateral Mammography 07/09/2025 11:1 3 AM EDT Impressions 07/09/2025 11:17 AM EDT No mammographic evidence of malignancy. A negative mammogram in the presence of a clinically suspicious palpable abnormality does not preclude the possibility of malignancy or alter the indications for biopsy. PQRI CPT II 3342F Code 44813, 39440 PQRI 225 CPT II 7025F TISSUE DENSITY: There are scattered areas of fibroglandular density. (BI-RADS category B) IMPRESSION: Benign. BI-RADS CATEGORY: 2 - BENIGN RECOMMENDATION: Screening bilateral mammogram is recommended in 1 year. Mammo Location: [facility], [address] [place] [address] -------- FINAL REPORT -------- Dictated By: Erik Coe Dictated Date: 07/09/2025 11:13 ET Assigned Physician: Erik Coe Reviewed and Electronically Signed By: Erik Coe Signed Date: 07/09/2025 11:17 ET Workstation ID: [id number] Transcribed By: Self Edit Transcribed Date: 07/09/2025 11:13 ET Narrative 07/09/2025 11:17 AM EDT CLINICAL: The patient is a 50 years Female presenting for routine screening mammography. COMPARISON: Outside studies most recently 04/03/2024 and most remotely 08/04/2015. TECHNIQUE: Full-field digital mammography of the breasts bilaterally consisting of tomosynthesis in MLO and CC projection is performed in the Keemotion 2000-D unit. Computer aided detection utilizing the iCAD system was utilized. FINDINGS: The breasts are again seen to be composed of a combination of fatty and fibroglandular elements. Vascular calcifications are noted in the left breast and a few scattered secretory calcifications are present. There is no suspicious cluster of microcalcifications, mass, or area of architectural distortion. There is no skin thickening or nipple retraction. Procedure Note Erik Coe MD - 07/09/2025 CLINICAL: The patient is a 50 years Female presenting for routinescreening mammography. COMPARISON: Outside studies most recently 04/03/2024 and most remotely08/04/2015. TECHNIQUE: Full-field digital mammography of the breasts bilaterallyconsisting of tomosynthesis in MLO and CC projection is performed in theKeemotion 2000-D unit. Computer aided detection utilizing the FunderaDsystem was utilized. FINDINGS: The breasts are again seen to be composed of a combination offatty and fibroglandular elements. Vascular calcifications are noted inthe left breast and a few scattered secretory calcifications are present.There is no suspicious cluster of microcalcifications, mass, or area ofarchitectural distortion. There is no skin thickening or nippleretraction. IMPRESSION: No mammographic evidence of malignancy. A negative mammogram in the presence of a clinically suspicious palpableabnormality does not preclude the possibility of malignancy or alter theindications for biopsy. PQRI CPT II 3342F Code 58317, 26075 PQRI 225 CPT II 7025F TISSUE DENSITY: There are scattered areas of fibroglandular density.(BI-RADS category B) IMPRESSION: Benign. BI-RADS CATEGORY: 2 - BENIGN RECOMMENDATION: Screening bilateral mammogram is recommended in 1 year. Mammo Location: [facility], [address] [place] [id number] -------- FINAL REPORT -------- Dictated By: Erik Coe Dictated Date: 07/09/2025 11:13 ET Assigned Physician: Erik Coe Reviewed and Electronically Signed By: Erik Coe Signed Date: 07/09/2025 11:17 ET Workstation ID: [id number] Transcribed By: Self Edit Transcribed Date: 07/09/2025 11:13 ET Yolie Desir MD IMG BI PROCEDURES Final Resu lt * Debridement Diabetic Ulcer Left;Plantar (5th metatarsal) Foot (06/25/2025 2:00 PM EDT) Pavan Zamora MD - 06/25/2025 2:00 PM EDT RASHID Hyde 06/25/2025 2:23 PM Debridement Diabetic Ulcer Left;Plantar (5th metatarsal) Foot Performed by: RASHID Hyde Authorized by: RASHID Hyde Associated wounds: Wound Diabetic Ulcer 06/05/25 Foot Left;Plantar Consent: Consent obtained: Verbal Consent given by: Patient Risks discussed: Yes Time out: Immediately prior to the procedure a time out was called Debridement Details: Performed by: RASHID Type: surgical Level: subcutaneous tissue Pain control: Lidocaine 4% Severity of Tissue Pre Debridement: Fat layer exposed Severity of Tissue Post Debridement: Fat layer exposed Time taken: 06/25/2025 2:02 PM Length (cm): 2.1 Width (cm): 2.5 Depth (cm): 0.2 Area (cm^2): 5.25 Time taken: 06/25/2025 2:03 PM Length (cm): 2.1 Width (cm): 2.5 Depth (cm): 0.2 Percent Debrided (%): 100 Surface Area (cm^2): 5.25 Area Debrided (cm^2): 5.25 Volume (cm^3): 1.05 Tissue and other material debrided: dermis, epidermis and subcutaneous tissue Devitalized tissue debrided: biofilm, callus and slough Instrument: Curette Amount of bleeding: small Hemostasis obtained with: Pressure Procedural pain: 0 Post-procedural pain: 0 Response to treatment: Procedure was tolerated well Shane MIKE IN CLINIC/BEDSIDE ORDERABLE S Final Result * Debridement Diabetic Ulcer Left;Plantar (5th metatarsal) Foot (06/05/2025 2:00 PM EDT) Pavan Zamora MD - 06/05/2025 2:00 PM EDT RASHID Hyde 06/05/2025 3:29 PM Debridement Diabetic Ulcer Left;Plantar (5th metatarsal) Foot Performed by: RASHID Hyde Authorized by: RASHID Hyde Associated wounds: Wound Diabetic Ulcer 06/05/25 Foot Left;Plantar Consent: Consent obtained: Verbal Consent given by: Patient Risks discussed: Yes Time out: Immediately prior to the procedure a time out was called Debridement Details: Performed by: PA Type: surgical Level: subcutaneous tissue Pain control: Lidocaine 4% Severity of Tissue Pre Debridement: Fat layer exposed Severity of Tissue Post Debridement: Fat layer exposed Time taken: 06/05/2025 2:33 PM Length (cm): 1.4 Width (cm): 1.4 Depth (cm): 0.1 Area (cm^2): 1.96 Time taken: 06/05/2025 2:34 PM Length (cm): 1.4 Width (cm): 1.4 Depth (cm): 0.1 Percent Debrided (%): 100 Surface Area (cm^2): 1.96 Area Debrided (cm^2): 1.96 Volume (cm^3): 0.2 Tissue and other material debrided: dermis, epidermis, hypergranulation and subcutaneous tissue Devitalized tissue debrided: biofilm, callus and slough Instrument: Curette Amount of bleeding: small Hemostasis obtained with: Pressure and silver nitrate Procedural pain: 0 Post-procedural pain: 0 Response to treatment: Procedure was tolerated well Shane MIKE IN CLINIC/BEDSIDE ORDERABLE S Final Result * (ABNORMAL) POCT Glucose, blood (05/08/2025 4:09 PM EDT) Only the most recent of8 resultswithin the time period is included. Glucose POCT 183(H) 70 - 100 mg/dL 05/08/2025 4:10 PM EDT [facility] Blood Capillary blood specimen / Unknown 05/08/2025 4:09 PM EDT 05/08/2025 4:11 PM EDT us Wilner Balderas MD LAB POINT OF CARE TE ST DOCKED DEVICE UNSOLICITED RESULTS Final Result Performing Organization Address [facility]/ZIP Co de Phone Number [facility] [address] [place] [address], [place] [phone] * Lavender tube (05/08/2025 8:16 AM EDT) [facility] Extra Tube Hold for add-ons. 05/08/2025 10:01 AM EDT [facility] Comment:Auto resulted. Blood Venous blood specimen / Unknown Venipuncture / Unknown 05/08/2025 8:16 AM EDT 05/08/2025 8:41 AM EDT us Wilner Balderas MD LAB BLOOD ORDERABLES Final Resul t Performing Organization Address [facility] de Phone Number [facility] [address] [place] [address], [place] [phone] * Vancomycin, trough (05/08/2025 8:16 AM EDT) [facility] Vancomycin Trough 14.6 10.0 - 20.0 mcg/mL LAB CHEMISTRY METHOD 05/08/2025 9:09 AM EDT [facility] Blood Venous blood specimen / Unknown Venipuncture / Unknown 05/08/2025 8:16 AM EDT 05/08/2025 8:41 AM EDT us Richi Bo MD LAB BLOOD ORDERABLES Kaila l Result [facility] [address] [place] [address], * (ABNORMAL) Basic metabolic panel (05/08/2025 8:16 AM EDT) Only the most recent of3 resultswithin the time period is included. Sodium 136 133 - 145 mmol/L LAB CHEMISTRY METHOD 05/08/2025 9:34 AM [facility] Potassium 3.6 3.5 - 5.5 mmol/L LAB CHEMISTRY METHOD 05/08/2025 9:34 AM [facility] Chloride 97 96 - 110 mmol/L LAB CHEMISTRY METHOD 05/08/2025 9:34 AM [facility] CO2 34(H) 21 - 32 mmol/L LAB CHEMISTRY METHOD 05/08/2025 9:34 AM [facility] Anion Gap 5 3 - 11 LAB CHEMISTRY METHOD 05/08/2025 9:34 AM [facility] Glucose 293(H) 70 - 100 mg/dL LAB CHEMISTRY METHOD 05/08/2025 9:34 AM [facility] BUN 12 5 - 25 mg/dL LAB CHEMISTRY METHOD 05/08/2025 9:34 AM [facility] Creatinine 0.93 0.50 - 1.10 mg/dL LAB CHEMISTRY METHOD 05/08/2025 9:34 AM [facility] eGFR 74 >=60 mL/min/1. 73m2 LAB CHEMISTRY METHOD 05/08/2025 9:34 AM [facility] Comment:Calculation based on the Chronic Kidney Disease Epidemiology Collaboration (CKD-EPI) equation refit without adjustment for race. BUN/Creatinine Ratio 12.9 LAB CHEMISTRY METHOD 05/08/2025 9:34 AM [facility] Calcium 9.8 8.5 - 10.5 mg/dL LAB CHEMISTRY METHOD 05/08/2025 9:34 AM [facility] Blood Venous blood specimen / Unknown Venipuncture / Unknown 05/08/2025 8:16 AM EDT 05/08/2025 8:41 AM EDT us Wilner Balderas MD LAB BLOOD ORDERABLES Final Resul t [facility] [address] [place] [address], * (ABNORMAL) CBC auto differential (05/07/2025 5:57 AM EDT) Only the most recent of2 resultswithin the time period is included. WBC 6.2 4.8 - 10.8 K/mcL LAB HEMETOLOGY METHOD 05/07/2025 6:46 AM EDT [facility] RBC 3.50(L) 3.80 - 4.80 M/[facility] LAB HEMETOLOGY METHOD 05/07/2025 6:46 AM EDT [facility] Hemoglobin 10.3(L) 11.5 - 16.0 g/dL LAB HEMETOLOGY METHOD 05/07/2025 6:46 AM T [facility] Hematocrit 31.7(L) 35.0 - 47.0 % LAB HEMETOLOGY METHOD 05/07/2025 6:46 AM T [facility] MCV 90.6 79.0 - 98.0 FL LAB HEMETOLOGY METHOD 05/07/2025 6:46 AM EDT [facility] MCH 29.4 27.0 - 32.0 pcg LAB HEMETOLOGY METHOD 05/07/2025 6:46 AM EDT [facility] MCHC 32.5 32.0 - 37.0 g/dL LAB HEMETOLOGY METHOD 05/07/2025 6:46 AM [facility] RDW 12.7 11.0 - 15.0 % LAB HEMETOLOGY METHOD 05/07/2025 6:46 AM [facility] Platelets 236 130 - 400 K/mcL LAB HEMETOLOGY METHOD 05/07/2025 6:46 AM [facility] MPV 10.8 7.0 - 11.0 FL LAB HEMETOLOGY METHOD 05/07/2025 6:46 AM [facility] NRBC 0.0 <1.0 % LAB HEMETOLOGY METHOD 05/07/2025 6:46 AM [facility] NRBC Absolute 0.00 <0.10 K/mcL LAB HEMETOLOGY METHOD 05/07/2025 6:46 AM [facility] Neutrophils Relative 59.6 % LAB HEMETOLOGY METHOD 05/07/2025 6:46 AM [facility] Lymphocytes Relative 24.1 % LAB HEMETOLOGY METHOD 05/07/2025 6:46 AM [facility] Monocytes Relative 9.2 % LAB HEMETOLOGY METHOD 05/07/2025 6:46 AM [facility] Eosinophils Relative 6.0 % LAB HEMETOLOGY METHOD 05/07/2025 6:46 AM [facility] Basophils Relative 0.6 % LAB HEMETOLOGY METHOD 05/07/2025 6:46 AM [facility] Immature Granulocytes Relative 0.5 % LAB HEMETOLOGY METHOD 05/07/2025 6:46 AM [facility] Neutrophils Absolute 3.67 1.50 - 7.00 K/mcL LAB HEMETOLOGY METHOD 05/07/2025 6:46 AM [facility] Lymphocytes Absolute 1.49 1.00 - 5.00 K/mcL LAB HEMETOLOGY METHOD 05/07/2025 6:46 AM [facility] Monocytes Absolute 0.57 0.20 - 1.00 K/mcL LAB HEMETOLOGY METHOD 05/07/2025 6:46 AM EDT [facility] Eosinophils Absolute 0.37 0.00 - 0.50 K/mcL LAB HEMETOLOGY METHOD 05/07/2025 6:46 AM EDT [facility] Basophils Absolute 0.04 0.00 - 0.20 K/mcL LAB HEMETOLOGY METHOD 05/07/2025 6:46 AM EDT [facility] Immature Granulocytes Absolute 0.03 0.00 - 0.03 K/mcL LAB HEMETOLOGY METHOD 05/07/2025 6:46 AM EDT [facility] Blood Venous blood specimen / Unknown Venipuncture / Unknown 05/07/2025 5:57 AM EDT 05/07/2025 6:26 AM EDT Richi Bo MD LAB BLOOD ORDERABLES Kaila l Result [facility] [address] [place] [address], [place] [phone] * Phosphorus (05/07/2025 5:57 AM EDT) Phosphorus 2.9 2.5 - 4.5 mg/dL LAB CHEMISTRY METHOD 05/07/2025 7:14 AM EDT [facility] Blood Venous blood specimen / Unknown Venipuncture / Unknown 05/07/2025 5:57 AM EDT 05/07/2025 6:26 AM EDT Richi Bo MD LAB BLOOD ORDERABLES Kaila l Result [facility] [address] [place] [address], [place] [phone] * Magnesium (05/07/2025 5:57 AM EDT) Magnesium 1.9 1.9 - 2.6 mg/dL LAB CHEMISTRY METHOD 05/07/2025 7:14 AM EDT [facility] Blood Venous blood specimen / Unknown Venipuncture / Unknown 05/07/2025 5:57 AM EDT 05/07/2025 6:26 AM EDT us Richi Bo MD LAB BLOOD ORDERABLES Kaila l Result Performing Organization Address [facility]/ZIP Co de Phone Number [facility] [address] [place] [address], [place] [phone] * Activated partial thromboplastin time (05/06/2025 10:09 PM EDT) aPTT 28.0 24.1 - 39.3 sec LAB COAGULATION METHOD 05/06/2025 10:36 PM EDT [facility] Blood Venous blood specimen / Unknown Venipuncture / Unknown 05/06/2025 10:09 PM EDT 05/06/2025 10:14 PM EDT us Richi Bo MD LAB BLOOD ORDERABLES Kaila l Result Performing Organization Address City/[facility] Co de Phone Number [facility] [address] [place] [address], [place] [phone] * Prothrombin time with INR (05/06/2025 10:09 PM EDT) Protime 12.4 10.6 - 13.9 sec LAB COAGULATION METHOD 05/06/2025 10:36 PM EDT [facility] INR 1.0 LAB COAGULATION METHOD 05/06/2025 10:36 PM EDT [facility] Blood Venous blood specimen / Unknown Venipuncture / Unknown 05/06/2025 10:09 PM EDT 05/06/2025 10:14 PM EDT us Richi Bo MD LAB BLOOD ORDERABLES Kaila richmond Result [facility] [address] [place] [address], * XR Foot 3+ Views Left (05/06/2025 8:36 PM EDT) Anatomical Region Laterality Modality Lower Extremities, Foot Left Radiogra phic Imaging 05/07/2025 9:05 AM EDT Impressions 05/07/2025 9:08 AM EDT Impression: 1. No specific findings of active osteomyelitis are noted. 2. Stable sclerosis and cortical thickening of the fifth metatarsal. 3. Diffuse soft tissue swelling with plantar soft tissue ulcer. Telerad RASHID ([id number]) -------- FINAL REPORT -------- Dictated By: Tawanna Knott Dictated Date: 05/07/2025 09:05 ET Assigned Physician: Tawanna Knott Reviewed and Electronically Signed By: Tawanna Knott Signed Date: 05/07/2025 09:08 ET Workstation ID: [id number] Transcribed By: Self Edit Transcribed Date: 05/07/2025 [...] tissue swelling with plantar soft tissue ulcer. Jose MIKE ([id number]) -------- FINAL REPORT -------- Dictated By: Tawanna Knott Dictated Date: 05/07/2025 09:05 ET Assigned Physician: Tawanna Knott Reviewed and Electronically Signed By: Tawanna Knott Signed Date: 05/07/2025 09:08 ET Workstation ID: [id number] Transcribed By: Self Edit Transcribed Date: 05/07/2025 09:05 ET Asher Etsrada DO IMG XR PROCEDURES Final Res ult * Lactate, with reflex (05/06/2025 8:27 PM EDT) LACTIC ACID 1.4 0.4 - 2.0 mmol/L LAB CHEMISTRY METHOD 05/06/2025 9:03 PM EDT [facility] Blood Venous blood specimen / Unknown Venipuncture / Unknown 05/06/2025 8:27 PM EDT 05/06/2025 8:34 PM EDT Felicia MIKE LAB BLOOD ORDERABLES Final Resu lt [facility] [address] [place] [address], [place] [phone] * Blood Culture, Peripheral Draw #1 (05/06/2025 8:27 PM EDT) Only the most recent of2 resultswithin the time period is included. Culture, Blood No growth at 5 days 05/11/2025 9:01 PM EDT [facility] Blood Venous blood specimen / Unknown Venipuncture / Unknown 05/06/2025 8:27 PM EDT 05/06/2025 8:34 PM EDT Felicia MIKE LAB MICROBIOLOGY - GENERAL MAXIM OQUENDO Final Result [facility] [address] [place] [address], [place] [phone] * HIV Screening (08/24/2017) Pathologist [facility] HIV Screening abstracted Historical Provider HEALTH MAINTENANCE Final Result * Hepatitis C Screening (08/24/2017) Pathologist [facility] Hepatitis C Screening abstracted [facility] Provider HEALTH MAINTENANCE Final Result * Pap Smear (07/17/2015) Pathologist [facility] Pap smear no interpretation , abstracted Historical Provider HEALTH MAINTENANCE Final Result from Last 3 Months or Most Recently Relevant to Health Maintenance Additional Health Concerns Active Problems Noted Date Diagnosed Date Impaired Tissue 06/05/2025 Education needed on impact of smoking on wound 0 06/05/2025 Education needed related to ulceration/compromised skin integrity. 06/05/2025 Insurance MEDICAID - [place] Advance Directives * [...] currently active code status orders. Care Teams Inclinometer Tester Relationship Specialty Start Date End Date Yolie Desir MD [address] [place] [phone] PCP - General 07/25/24
--- OUTSIDE RECORDS SUMMARY | 2025-07-29 16:06 | XMS_ITS | Clinical Summary ---
Author Organization [facility] Address [address] [place] [phone] Phone Care Team Providers Care Marketing Rotation Associate Name Role Phone Yolie Desir MD Primary Care Provider [phone] Allergies Active Allergy Reactions Criticality Noted Date [...] Sigmoidoscopy 2022 Diabetes: Hemoglobin A1C 04/07/2025 01/08/2025, 0301/2023 Influenza Vaccine (#1) 2025 3, 10/20/2022, 02/03/2021, Additional history exists Pneumococcal Vaccine: 50+ Years Completed 02/10/2023, 09/19/2017, 12/10/2015, Additional history exists Pneumococcal Vaccine: Peds ( 0 to 5 Years) and At-Risk Patients (6 to 49 Years) Discontinued 02/10/2023, 09/19/2017, 12/10/2015, Additional history exists [place] Care Teams Marketing Rotation Associate Relationship Specialty Start Date End Date Yolie Desir MD [address] [place] [address] PCP - General Internal Medicine 04/22/21
--- OUTSIDE RECORDS SUMMARY | 2025-07-29 16:06 | XMS_ITS | Encounter Summary ---
Author Organization [employer] Address [address] [facility] [address] [place] [address] Care Team Providers Care Middle School Band Teacher Name Role Phone Yolie Desir MD Primary Care Provider + Reason for Visit * Reason Comments Med Refill Encounter Details Date Type Department Care Team (Late st Contact Info) Description 11/29/2023 Refill [facility] DIABETES/NUTRITION [address] [place], [place] [phone] Axel Graf MD [address] [place] [address] Diabetic nephropathy associated with type 2 diabetes mellitus ([facility]) Social History Tobacco Use Types [...] Description 08/30/2025 9:15 AM EDT Office Visit [facility] MEDICINE [address] [place] [address] Yolie Desir MD [address] [place] [address] documented as of this encounter Visit Diagnoses Diagnosis Diabetic nephropathy associated with type 2 diabetes mellitus (CMS/HCC) documented in this encounter Additional Health Concerns Assessment Noted Time PHQ-9 Depression Total Score: 8 02/11/20 23 9:24 AM EDT documented as of this encounter Care Teams Middle School Band Teacher Relationship Specialty Start Date End Date Yolie Desir MD [address] [place] [phone] PCP - General Family Medicine 10/26/19 Hilda Cardoso Inspector LineLand Agent 04/18/25 Hilda Cardoso Human Geography Faculty MemberLand Agent 05/22/25 documented as of this encounter
--- OUTSIDE RECORDS SUMMARY | 2025-07-29 16:06 | XMS_ITS | Encounter Summary ---
Author Organization [employer] Address [address] [facility] [address] [place] [address] Care Team Providers Care Sound Printer Name Role Phone Yolie Desir MD Primary Care Provider + Reason for Visit * Reason Comments Med Refill Encounter Details Date Type Department Care Team (Late st Contact Info) Description 06/15/2024 Refill [facility] ADULT DENTAL [address] [place], [place] [phone] Yolie Desir MD [address] [place], [place] [phone] Diabetic nephropathy associated with type 2 diabetes mellitus ([facility]) Social History Tobacco Use Types Packs/Day [...] Description 08/30/2025 9:15 AM EDT Office Visit [facility] MEDICINE [address] [place] [phone] Yolie Desir MD [address] [place] [phone] documented as of this encounter Visit Diagnoses Diagnosis Diabetic nephropathy associated with type 2 diabetes mellitus (CMS/HCC) documented in this encounter Additional Health Concerns Assessment Noted Time PHQ-9 Depression Total Score: 8 02/11/20 23 9:24 AM EDT documented as of this encounter Care Teams Sound Printer Relationship Specialty Start Date End Date Yolie Desir MD [address] [place] [phone] PCP - General Family Medicine 10/26/19 Hilda Cardoso Hip Hop PerformersClaims Analyst 04/18/25 Hilda Cardoso Securities SupervisorClaims Analyst 05/22/25 documented as of this encounter
--- OUTSIDE RECORDS SUMMARY | 2025-07-29 16:06 | XMS_ITS | Clinical Summary ---
Author Organization [employer] Address [address] [place] [address] 7t [place] [address] Care Team Providers Care Mortgage Closer Name Role Phone Yolie Ashby MD Primary [...] TIMES DAILY TO TEST BLOOD SUGAR Active isosorbide mononitrate ER (Imdur) 30 MG [...] PAIN. CALL 911 IF NO RELIEF Active spironolactone (Aldactone) 25 MG tablet TAKE 1 TABLET BY MOUTH EVERY MORNING Active fluticasone (Flonase) 50 MCG/ACT nasal sprayIndication s:Allergic rhinitis, unspecified seasonality, unspecified trigger USE 1-2 SPRAYS IN EACH NOSTRIL EVERY DAY NEEDED 48 g 5 023 Active Spacer/Aero-Hol ding Chambers (OptiChamber Colleen) misc 1 each every 4 (four) hours if needed (asthma). 1 each 023 Active torsemide (Demadex) 20 MG tabletIndicatio [...] TABLET BY MOUTH AT BEDTIME 30 tablet Active FLUoxetine (PROzac) 20 MG capsule TAKE 1 CAPSULE BY MOUTH EVERY MORNING 30 capsule 024 Active Insulin Disposable Pump (Omnipod 5 G6 Pods, Gen 5,) misc USE DIRECTED CHANGE EVERY 72 HOURS Active lisinopril 10 MG tablet TAKE 1 AND 1/2 TABLETS BY MOUTH IN THE MORNING @ 730am Active Continuous Blood Gluc Transmit (Dexcom G6 transmitter) misc USE DIRECTED ONCE EVERY 3 MONTHS 024 Active Continuous Blood Gluc Sensor (Dexcom G6 Sensor) misc USE DIRECTED. CHANGE EVERY 10 DAYS 024 Active Continuous Blood Gluc Warehouse Stock Clerk (Dexcom G6 case checker) device USE DIRECTED Active carvedilol (Coreg) 6.25 [...] OF BREATH 18 g 1 025 Active albuterol (2.5 MG/3ML) 0.083% nebulizer solutionIndicat ions:Mild intermittent asthma without complication INHALE 1 AMPULE USING A NEBULIZER EVERY 6 HOURS NEEDED FOR WHEEZING OR SHORTNESS OF BREATH 90 mL 2 025 Active ferrous gluconate (Fergon) 324 (38 Fe) MG tabletIndicatio ns:Iron deficiency anemia due to chronic blood loss TAKE 1 TABLET BY MOUTH TWICE DAILY AT NOON AND IN THE EVENING 180 tablet 3 025 Active ipratropium (Atrovent) 0.06 % nasal sprayIndication s:Acute cough USE 2 SPRAYS IN EACH NOSTRIL THREE TIMES DAILY 15 mL 1 025 Active ammonium lactate (Lac-Hydrin) 12 % lotion APPLY TOPICALLY TO THE AFFECTED AREA(S) EVERY DAY NEEDED FOR DRY SKIN 025 Active atorvastatin (Lipitor) 10 MG tablet Take 1 tablet by mouth at bedtime. Active buPROPion XL (Wellbutrin XL) 150 MG 24 hr tablet Take 1 tablet by mouth in the morning. Active Insulin Lispro 100 UNIT/ML solution INJECT UP TO 120 UNITS SUBCUTANEOUSLY EVERY DAY BY INSULIN PUMP Active Comfort EZ Pen Ravenel 31G X 8 MM misc USE DIRECTED FOUR TIMES DAILY Active Ozempic, 1 MG/DOSE, 4 MG/3ML solution pen-injector Inject 1 MG SUBCUTANEOUSLY EVERY 7 DAYS IN THE ABDOMEN, THIGHS OR UPPER ARM. ROTATE INJECTION SITES. Active pantoprazole (ProtoNix) 40 MG EC tabletIndicatio ns:Epigastric pain TAKE 1 TABLET BY MOUTH EVERY MORNING 90 tablet Active gabapentin (Neurontin) 100 MG capsuleIndicati ons:Diabetic nephropathy associated with type 2 diabetes mellitus (CMS/HCC) TAKE 2 CAPSULES BY MOUTH THREE TIMES DAILY IN THE MORNING, EVENING AND BEDTIME 180 capsule Active gabapentin (Neurontin) 100 MG capsuleIndicati ons:Diabetic [...] of the peroneal artery. Assessment & Plan (05/30/2025 2:27 PM EDT): Fairly controlled, A1c 7.2. Continue Lantus 10 units nightly if she is off Humalog pump, otherwise use Humalog pump and follow-up with director of primary Continue Ozempic Follow-up with ophthalmology on 06/26, advised to reschedule appointment with plastic panel installer Follow-up with me in 3 to 4 months Assessment & Plan (01/08/2025 4:27 PM EST): [...] Omnipod use. Continue to follow up with Agency Service Coordinator and change of medications. FU in 3 [...] to increase water intake and fu with STEEL MELTER in June for pelvic exam She will fu this afternoon with , director of primary Carpal tunnel syndrome of right wrist 01/23/2024 Overview (01/23/2024): NCS at [facility] on 12/2023= Median nerve compression at wrist level. Assessment & Plan (01/23/2024 12:12 PM EST): Recommended to use right wrist brace at night and prn for activities that involve manipulation, she has a CPA to help with ADLs. Continue PT for right arm, will see if she needs addtl OT or steroid injection. ALPESH I (cervical intraepithelial neoplasia I) 02/2024 Assessment & Plan (05/30/2025 2:29 PM EDT): Follow-up with Dr. Maxwell/STEEL MELTER, has appointment on July. Assessment & Plan (01/23/2024 12:17 PM EST): Sp LEEP bx 12/[address] Maxwell FU with STEEL MELTER on 06/2024 Numbness and tingling of right [...] and will order x ray if needed Traffic Survey Technician appt on Cervical high risk HPV (human [...] visit. Screening mammogram for breast cancer 02/11/2023 Assessment & Plan (05/30/2025 2:28 PM EDT): Will order mammogram Encounter for preventive health examination 01/20 Assessment [...] fat layer exposed 11/16/2022 Assessment & Plan (05/30/2025 2:26 PM EDT): Patient cellulitis, status post's Doxy + Augmentin completed, doing well. Continue gentle also dressing by VNA and refer to wound clinic. Advised to schedule appointment with plastic panel installer, Dr. Castro of. Rx for diabetic shoes and inserts We discussed with patient regarding portance of tight control of diabetes Assessment & Plan (03/29/2024 1:24 PM EDT): >>ASSESSMENT AND PLAN FOR CHRONIC ULCER OF LEFT FOOT WITH FAT LAYER EXPOSED (CMS/HCC) WRITTEN ON 02/10/2023 10:37 AM BY VIRGIE Brock. She needs to have daily blood sugar checks, recommended to check finger stick and fu with director of primary. I told pt to call director of primary office to fu on prescription of CGM sensor Continue lantus 50 units + Omnipod insulin pod Pt to continue regular wound care at wound clinic for left DM ulcer continue laser therapy on right eye. She is legally blind in the left eye. order labs and FU with me in 3 months Assessment & Plan (01/23/2024 12:14 PM EST): Significantly improving, fu with [facility] wound clinic I will order supplies to [...] without psychotic features 08/22/2018 Assessment & Plan (05/30/2025 2:35 PM EDT): PHQ-9 is 6 today. She is doing fairly well, is coping well with chronic conditions especially recurrent foot ulcers. Continue follow-up with Dr. Hinojosa and therapist, she is able to reach out for safety and has crisis numbers. Continue fluoxetine, Wellbutrin, melatonin Assessment & Plan (01/08/2025 4:29 PM EST): Seems to be doing well, will continue Fluoxetine + Doxepin QHS. I will give her Lorazepam 0.5 mg for the trip to and back from [place] to visit her son. Mass of axilla [...] AND PLAN FOR TYPE 2 DIABETES MELLITUS ([facility]) WRITTEN ON 11/04/2023 2:41 PM BY YOLIE ASHBY MD Uncontrolled Unclear if insulin pump is working properly Told patient to call endocrinology MARYLOU to see if pump can be replaced sooner vs. Move temporarily to sc Lantus + Humalog Assessment & Plan (01/08/2025 2:18 PM EST): >>ASSESSMENT AND PLAN FOR TYPE 2 DIABETES MELLITUS ([facility]) WRITTEN ON 08/02/2024 3:15 PM BY YOLIE ASHBY MD Controlled, last A1c on 01/2024 was at goal. I will do A1c at upcoming regular visit Patient had episode of hypoglycemia today, probably due to miscalculation of insulin dose adjustment. She will fu on Tuesday with rn diabetes educator. She received glucose load today and [...] I congratulated her for reaching out to director of primary and compliance w/ medications I gave her information about diabetic diet, she's asking for more 1-1 pipe organ tuner and repairer coaching, so I gave her information about wt reduction programs in the area Continue close fu w/ director of primary insulin pump + Ozempic Pt had intraocular [...] asthma, CHF vs other. Informed about the [facility] and visit ED, she request an [...] Encounters Date Type Department Care Team Description 07/12/2025 Results Follow-Up [facility] [address] [place] [address] Yolie Ashby MD BI Mammogram Screening Tomosynthesis Bilateral 07/02/2025 Refill [facility] [address] [place] [address] Yolie Ashby MD Diabetic nephropathy associated with type 2 diabetes mellitus ([facility]/HCC) 06/12/2025 Telephone [facility] [address] [place] [address] Yolie Ashby MD Referral 05/31/2025 Telephone [facility] [address] [place] [address] Yolie Ashby MD DME Diabetic shoes P&O 05/31/2025 Refill [facility] [address] [facility] [place] [address] Yolie Ashby MD Diabetic nephropathy associated with type 2 diabetes mellitus ([facility]/HCC); Epigastric pain 05/30/2025 10:45 AM EDT Office Visit [facility] [address] [place] [address] Yolie Ashby MD Diabetic ulcer of left midfoot associated with type 2 diabetes mellitus, with fat layer exposed ([facility]/HCC); Diabetes mellitus type 2 with peripheral artery disease ([facility]); Screening mammogram for breast cancer; ALPESH I (cervical intraepithelial neoplasia I); Severe recurrent major depression without psychotic features ([facility]/HCC) 05/30/2025 Telephone [facility] [address] [place] [phone] Yolie Ashby MD F/U APPT 05/30/2025 Travel 05/29/[address] [address] Yolie Ashby MD Chart prep 05/22/2025 Orders Only GENERIC EXTERNAL DATA DEPARTMENT Provider, Generic External Data 05/22/[address] [address] Yolie Ashby MD Care Coordination (ICP Care Plan) 05/21/[address] [address] Yolie Ashby MD Dental form 05/15/[address] [address] Yolie Ashby MD Medication Question 05/10/2025 Patient Outreach [address] [phone] Yolie Ashby MD Transition Of Care (Tcm) (HDF scheduled ) 05/06/[address] [address] Xuan Lozada NP Acute cough from Last 3 Months Immunizations Immunization Administration Dates Next Due Influenza injectable quadriv [...] Years Used Date Smoking Tobacco: Former Cigarettes Passive Smoke Exposure: Past Smokeless Tobacco: Never Tobacco Cessation:Counseling Given: Not Answered Alcohol Use Standard Drinks/Week Comments Never 0 (1 standard drink = 0.6 oz pur e alcohol) Alcohol Answer Date Recorded Frequency of Alcohol Consumption Not on file 03/29/2024 Average Number of Drinks Not on file 024 Frequency of Binge Drinking Not on file 07/2024 Score 0 03/29/2024 Depression Answer Date Recorded Patient Health Questionnaire-9 Score 6 05/30/2025 Patient Health Questionnaire-9 Score 6 05/30/2025 Last PHQ-9: Questionnaire Data Not on file 0 05/30/2025 Housing Stability Answer Date Recorded What is [...] Date Recorded Patient Health Questionnaire-2 Score 4 05/30/2025 Internet Access Answer Date Recorded Internet Access [...] Sign Reading Time Taken Comments Blood Pressure 114/80 05/30/2025 10:54 AM EDT Pulse 86 05/30/2025 10:54 AM EDT Temperature 36.2 C (97.2 F) 05/30/2025 10:54 AM EDT Respiratory Rate 19 05/30/2025 10:54 AM EDT Oxygen Saturation 98% 02/18/2025 1:20 PM EDT Inhaled Oxygen Concentration - - Weight 93.6 kg (206 lb 4 oz) 05/30/2025 10:54 AM EDT Height 170.2 cm (5' 7 ) 05/30/2025 10:54 AM EDT Body Mass Index 32.3 05/30/2025 10:54 AM EDT Plan of Treatment Upcoming Encounters Date Type Department Care Team (Late st Contact Info) Description 08/30/2025 9:15 AM EDT Office Visit [facility] [address] [place] [address] Yolie Ashby MD [address] [place] [address] Health Maintenance Due Date Last Done Comments CT Colonography 1973 Colonoscopy 1973 Colorectal Cancer Screening 1973 FIT DNA/Cologuard 1973 FIT 1973 FOBT 1973 HIV Screening 1973 Sigmoidoscopy 1973 Family Planning (PISQ) 1988 Hepatitis C Screening 1991 Hepatitis B Vaccines (1 of 3 - 19+ 3-dose series) 1992 Zoster Vaccines (1 of 2) 2023 Eye Exam 09/09/2023 09/09/2022 Cervical Cancer Screening 11/03/2024 HPV/Cotest 11/03/2024 03/15/2023, 03/15/2023 Pap Smear 11/03/2024 03/15/2023, 03/15/2023 Lipid Panel 06/25/2025 06/25/2024, 10/21, 03/30/2022, Additional history exists COVID-19 Vaccine ( season) 2025 02/10/2023, 10/21/2021, 04/07/2021, Additional history exists Influenza Vaccine (#1) 2025 , 10/20/2022, 02/03/2021, Additional history exists Diabetes: Hemoglobin A1C 08/30/2025 025, 01/08/2025, 01/23/2024, Additional history exists SDOH Screening 12/25/2025 12/25/2024 Alcohol/Substance Use Screening 05/30/2026 05/30/2025 Depression Screening 05/30/2026 05/30/2025, 05/30/20 Diabetes: Foot Exam 05/30/2026 05/30/2025, 05/30/2025, 05/30/2025, Additional history exists Disability Screening 05/30/2026 05/30/2025 Tobacco Screening 05/30/2026 05/30/2025 Mammogram 06/28/2026 06/28/2025, 0806/2025, 06/28/2025, Additional history exists DTaP/Tdap/Td Vaccines (2 - Td or Tdap) [...] Procedure Name Priority Date/Time Associated Diagnosis Comments BI MAMMOGRAM SCREENING TOMOSYNTHESIS BILATERAL Routine 06/28/2025 Screening mammogram for breast cancer POCT GLYCATED HEMOGLOBIN, TOTAL Routine 05/30/2025 11:09 AM EDT Diabetes mellitus type 2 with peripheral artery disease (CMS/HCC) POCT GLUCOSE Routine 05/30/2025 10:57 AM EDT Diabetes mellitus type 2 with peripheral artery disease (CMS/HCC) GLUCOSE, WHOLE BLOOD Routine 05/22/2025 1:23 PM EDT AMB REFERRAL TO PODIATRY Routine 04/24/2025 Diabetes mellitus type 2 with peripheral artery disease (CMS/HCC) Diabetic nephropathy associated with type 2 diabetes mellitus (CMS/HCC) LIPID PANEL, STANDARD Routine 06/25/2024 10:51 AM EDT HPV GENOTYPES 16,18/45 Routine 11:10 AM EDT HM PAP/HPV Routine 03/15/2023 from Last 3 Months or Most Recently Relevant to Health Maintenance Results * BI Mammogram Screening Tomosynthesis Bilateral (06/28/2025) Anatomical Region Laterality Modality Breast Bilateral Mammography Yolie Ashby MD IMG BI PROCEDURES Final Result * (ABNORMAL) POCT HGB A1C (05/30/2025 11:09 AM EDT) Hemoglobin A1C 7.2(A) 4.0 - 5.7 % QC Media Lot # [id number] Lot# Expiration Date Blood 05/30/2025 11:0 9 AM EDT Yolie Ashby MD POINT OF CARE TEST ENTER /EDIT ORDERABLES Final Result * POCT Glucose (05/30/2025 10:57 AM EDT) Glucose Blood, POC 74 60 - 200 mg/dL Comment:Random QC Media Lot # [id number] Lot# Expiration Date Blood Capillary blood specimen / Unknown 05/30/2025 10:57 AM EDT us Yolie Ashby MD POINT OF CARE TEST ENTER /EDIT ORDERABLES Final Result * Glucose, Whole Blood (05/22/2025 1:23 PM EDT) Glucose, Whole Blood 107 60 - 115 mg/dL [facility] Comment:METER #: [id number] Testing performed in the Endocrinology Department [address] , [address], [facility]. 05/22/2025 1:23 PM EDT 05/22/2025 1:26 PM EDT us Generic External Data Provider LAB BLOOD ORDERAB LES Final Result [facility] [address] [place] [phone] * Referral to Podiatry (04/24/2025) us Yolie Ashby MD OUTPATIENT REFERRAL ORDE RABLES Final Result * (ABNORMAL) Lipid Panel, Standard (06/25/2024 10:51 AM EDT) Triglycerides 186(H) <150 mg/dL [facility] Comment:Desirable Triglyceri de: less than 150 mg/dLBorderline High Triglyceride 150-199 mg/dLHigh Triglyceride: 200-499 mg/dLVery High Triglyceride: greater than or equal to 5OO mg/dL Cholesterol 246(H) <200 mg/dL [facility] Comment:Desirable Cholestero l: less than 200 mg/dLBorderline High Cholesterol: 200-239 mg/dLHigh Cholesterol: greater than 239 mg/dL LDL Cholesterol Calculated 163(H) <100 mg/dL [facility] Comment:Desirable LDL: less than 100 mg/dLNear Optimal/Above Optimal LDL: 110- 129 mg/dLBorderline High LDL: 130-159 mg/dLHigh LDL: 160-189 mg/dLVery High LDL: greater than or equal to 190 mg/dL HDL Cholesterol 46 >40 mg/dL [facility] Comment:Desirable HDL: great er than 40 mg/dL Note: This HDL assay may give artificially low results in patients with liver disease. 06/25/2024 10:5 1 AM EDT 06/25/2024 10:51 AM EDT us Generic External Data Provider LAB BLOOD ORDERAB LES Final Result [facility] [address] [place] [phone] * (ABNORMAL) HPV Genotypes 16,18/45 (03/15/2023 11:10 AM EDT) HPV 16 RNA NOT DETECTED NOT DETECTED [employer] HPV 18/45 RNA DETECTED(A) NOT DETECTED [employer] Comment: Methodology: Regulatory Affairs Assistant Mediated Amplification Cervical sources are required for HPV testing. If a vaginal source from a patient who has had a total hysterectomy with removal of cervix was submitted, please contact the testing laboratory for alternative testing options. 03/15/2023 11:1 0 AM EDT 03/16/2023 6:23 AM EDT us Yolie Ashby MD LAB CYTOLOGY ORDERABLES Final Result [employer] [address], [place] [address] [employer] [address] [place] [address] * Hm Pap Smear (03/15/2023) HM Pap smear NIL HPV+ us Historical Provider HEALTH MAINTENANCE Final Result from Last 3 Months or Most Recently Relevant to Health Maintenance Insurance [facility] C3 Care Teams Mortgage Closer Relationship Specialty Start Date End Date Yolie Ashby MD [address] [place] [phone] PCP - General Family Medicine 10/26/19 Hilda Cardoso Lot AssociateDirector Of Parks And Recreation 04/18/25 Hilda Cardoso Meteorologist In ChargeDirector Of Parks And Recreation 05/22/25
--- OUTSIDE RECORDS SUMMARY | 2025-07-29 16:06 | XMS_ITS | Encounter Summary ---
Author Organization [employer] [facility] Address [address] [place] [address] [address] [place] [address] Care Team Providers Care Software Trainer Name Role Phone Yolie Desir MD Primary Care Provider + Reason for Visit * Reason Onset Date Comments Prior Authorization 10/28/2022 Encounter Details Date Type Department Care Team (Late st Contact Info) Description 10/28/2022 Telephone [facility] [address] [place], [place] [phone] Yolie Desir MD [address] [place], [place] [phone] Prior Authorization Social History Tobacco Use Types [...] Description 08/30/2025 9:15 AM EDT Office Visit [facility] [address] [place] [address] Yolie Desir MD [address] [place] [address] documented as of this encounter Visit Diagnoses Not on filedocumented in this encounter Care Teams Software Trainer Relationship Specialty Start Date End Date Yolie Desir MD [address] [place] [phone] PCP - General Family Medicine 10/26/19 Hilda Cardoso Nurse OfficeTouch Up Carver 04/18/25 Hilda Cardoso Gum SprayerTouch Up Carver 05/22/25 documented as of this encounter
--- OUTSIDE RECORDS SUMMARY | 2025-07-29 16:06 | XMS_ITS | Encounter Summary ---
Author Organization [employer] [facility] Address [address] [facility] 7t [place] [address] Care Team Providers Care Environmental Protection Geologist Name Role Phone Yolie Desir MD Primary Care Provider + Encounter Details Date Type Department Care Team (Late st Contact Info) Description 01/25/2023 Abstract [facility] [address] [place] [phone] Yolie Desir MD [address] [place] [phone] Social History Tobacco Use Types Packs/Day Years [...] Description 08/30/2025 9:15 AM EDT Office Visit [facility] [address] [place] [phone] Yolie Desir MD [address] [place] [phone] documented as of this encounter Visit Diagnoses Not on filedocumented in this encounter Care Teams Environmental Protection Geologist Relationship Specialty Start Date End Date Yolie Desir MD [address] [place] [phone] PCP - General Family Medicine 10/26/19 Hilda Cardoso Intelligence EngineerPerforming Arts Road Manager 04/18/25 Hilda Cardoso Automotive Diagnostic TechnicianPerforming Arts Road Manager 05/22/25 documented as of this encounter
--- OUTSIDE RECORDS SUMMARY | 2025-07-29 16:06 | XMS_ITS | Encounter Summary ---
Author Organization [employer] Address [address] [place] [address] Care Team Providers Care Video Surveillance Technician Name Role Phone Yolie Desir MD Primary Care Provider + Reason for Visit * Reason Comments Med Refill Encounter Details Date Type Department Care Team (Late st Contact Info) Description 12/29/2023 Refill [facility] [address] [place], [place] [phone] Yolie Desir MD [address] [place], [place] [phone] Diabetic nephropathy associated with type 2 diabetes mellitus ([facility]/HCC) Social History Tobacco Use Types Packs/Day Years [...] Upcoming Encounters Date Type Department Care Team ([facility] st Contact Info) Description 08/30/2025 9:15 AM EDT Office Visit [facility] [address] [place] [phone] Yolie Desir MD [address] [place] [address] documented as of this encounter Visit Diagnoses Diagnosis Diabetic nephropathy associated with type 2 diabetes mellitus (CMS/[facility]) documented in this encounter Additional Health Concerns Assessment Noted Time PHQ-9 Depression Total Score: 8 02/11/20 23 9:24 AM EDT documented as of this encounter Care Teams Video Surveillance Technician Relationship Specialty Start Date End Date Yolie Desir MD [address] [place] [phone] PCP - General Family Medicine 10/26/19 Hilda Cardoso Electorate OfficerClinical Resource Nurse 04/18/25 Hilda Cardoso Cutter FinisherClinical Resource Nurse 05/22/25 documented as of this encounter
--- OUTSIDE RECORDS SUMMARY | 2025-07-29 16:06 | XMS_ITS | Encounter Summary ---
Author Organization [email or web address] Address [address] [facility] 7t [place] [address] Care Team Providers Care Front End Engineer Name Role Phone Yolie Desir MD Primary Care Provider + Encounter Details Date Type Department Care Team (Latest Contact Info) Description 07/12/2025 Results Follow-Up [facility] [address] [place], [place] [phone] Yolie Desir MD [address] [place] [address] BI Mammogram Screening Tomosynthesis Bilateral Social History Tobacco Use Types Packs/Day Years Used Date Smoking Tobacco: Former Cigarettes Passive Smoke Exposure: Past Smokeless Tobacco: Never Alcohol Use Standard Drinks/Week [...] Description 08/30/2025 9:15 AM EDT Office Visit [facility] [address] [place] [phone] Yolie Desir MD [address] [place] [phone] documented as of this encounter Visit Diagnoses Not on filedocumented in this encounter Additional Health Concerns Assessment Noted Time PHQ-9 Depression Total Score: 6 05/30/20 25 10:56 AM EDT documented as of this encounter Care Teams Front End Engineer Relationship Specialty Start Date End Date Yolie Desir MD [address] [place] [phone] PCP - General Family Medicine 10/26/19 Hilda Cardoso Genetic CounsellorPrivate Equity Analyst 04/18/25 Hilda Cardoso Dairy And Food Laboratory AssistantPrivate Equity Analyst 05/22/25 documented as of this encounter
--- OUTSIDE RECORDS SUMMARY | 2025-07-29 16:06 | XMS_ITS | Patient Health Record ---
Author Organization [facility] Address [address] [place] [address] Care Team Providers Care Scrub Woman Name Role Phone Eagle (DO NOT USE), [facility] Provi jaison Rick Estrada Jr Unavailable [phone] Allergies Allergen (clinical drug ingredient) Drug/Non Drug [...] Problem Status W/U Status Risk Notes Problem [id number] Epigastric pain (R10.13) Active confirmed Problem [id number] Gastroesophageal reflux disease, esophagitis presence not specified (K21.9) Active confirmed Problem [id number] Diarrhea, unspecified type (R19.7) Active confirmed Plan Of Treatment Future Test Test Name Order Date UPPER GI ENDOSCOPY 09/09/2017 COLONOSCOPY 09/09/2017 Insurance Providers Payer Name Payer Address Payer Phone Subscriber Number Group Number Insured Name Patient Relationship to Insured Coverage Start Date Coverage End Date [facility] [address] [place] [phone] [id number] MONI YEE Self - patient is the insured Medical (General) History Medical History History ICD Code diabetes mellitus coronary artery disease with history of [place] 2016 kidney disease hypertension sleep apnea asthma systolic congestive heart failure depression neuropathy Surgical History Surgery Date(Month/Year) corneal transplant-right eye 2014 left hand surgery 2014 coronary artery bypass graft 01/2016, PCI with JOSE of mid LAD and ramus 03/06 after occlusion of GUNN and SVG graft 2016 tubal ligation cholecystectomy uterine polypectomy
--- OUTSIDE RECORDS SUMMARY | 2025-07-29 16:07 | XMS_ITS | Encounter Summary ---
Author Organization [facility] Address [address] [facility] 7t [place] [address] Care Team Providers Care Field Hockey Coach Name Role Phone Yolie Desir MD Primary Care Provider + Encounter Details Date Type Department Care Team (Late st Contact Info) Description 01/25/2023 Abstract [facility] MEDICINE [address] [place] [phone] Yolie Desir MD [address] [place] [address] Social History Tobacco Use Types Packs/Day Years [...] Description 08/30/2025 9:15 AM EDT Office Visit [facility] MEDICINE [address] [place] [address] [phone] Yolie Desir MD [address] [place] [address] documented as of this encounter Visit Diagnoses Not on filedocumented in this encounter Care Teams Field Hockey Coach Relationship Specialty Start Date End Date Yolie Desir MD [address] [place] [address] PCP - General Family Medicine 10/26/19 Hilda Cardoso Engineer Automated EquipmentMolder Operator 04/18/25 Hilda Cardoso Manufacturing LeaderMolder Operator 05/22/25 documented as of this encounter
--- OUTSIDE RECORDS SUMMARY | 2025-07-29 16:07 | XMS_ITS | Clinical Summary ---
Author Organization [facility] Address [address] [facility] [address] [place] [phone] Phone Care Team Providers Care Health Unit Supervisor Name Role Phone Yolie Desir MD Primary Care Provider + Allergies Active Allergy Reactions Criticality Noted Date Comments Levofloxacin 04/13/2021 Sulfamethoxazole-Trimethoprim 2020 Trimethoprim 04/13/2021 Social History Tobacco Use Types Packs/Day Years Used Date Smoking Tobacco: Never Assessed Education Answer Date Recorded Are you interested in more education? Not on matty e 03/18/2023 Are you concerned about learning? Not on file 03/18/2023 No 03/18/2023 No 03/18/2023 Digital Access Answer Date Recorded No 04/18/2023 No 04/18/2023 No 04/18/2023 Reliable internet access at home? Not on file 04/18/2023 Device with a working camera? Not on file Comments Unknown Sex and Gender Information Value Date Recorded Sex Assigned at Not on file Legal Sex Female 10:24 AM EDT Gender Identity Not on file Sexual Orientation Not on file Plan of Treatment Health Maintenance Due Date Last Done Comments Adult Td,Tdap Booster 1973 LIPID PANEL 1973 DEPRESSION SCREENING 1985 SMOKING Hx and SMOKELESS TOB ACCO SCREENING 1986 HEPATITIS C SCREENING 1991 HIV ONE-TIME SCREENING (18-6 5 YEARS) 1991 PAP SMEAR 1994 MAMMOGRAM 2013 COLOGUARD 2018 COLONOSCOPY 2018 COLORECTAL CANCER SCREENING 2018 FIT TEST 2018 FOBT 2018 SIGMOIDOSCOPY 2018 VIRTUAL COLONOSCOPY 2018 PNEUMOCOCCAL VACCINES (50+ y ears) (2 of 2 - PCV) 2023 2015 ZOSTER VACCINES (1 of 2) 2023 INFLUENZA VACCINE (#1) 2025 10/26/2019 COVID-19 VACCINE (1 - 2023-2 5 season) 2025 HEPATITIS A VACCINES Aged Out No long er eligible based on patient's age to complete this topic HIB VACCINES Aged Out No longer eligi ble based on patient's age to complete this topic MENINGOCOCCAL VACCINES (ACWY) Aged Out No longer eligible based on patient's age to complete this topic MENINGOCOCCAL VACCINES (B) Aged Out N o longer eligible based on patient's age to complete this topic Medical Devices Not on file Insurance [address] [place] [id number] [facility] C3 A[facility] [address] [place] [address] [place] [address] C3 [employer] [place] [phone] [facility] [address] [place] [address] [place] [address] [place] [address] [place] [address] [place] [address] [place] [address] [place] [address] [place] [address] C3 ACO Care Teams Health Unit Supervisor Relationship Specialty Start Date End Date Yolie Desir MD [address] [place] [address] [phone] [place] [phone] PCP - General Internal Medicine 03/31/21 Additional Source Comments The information contained in this document represents components of the legal health record. It is not the complete legal health record.[facility]
[2025-07-29 17:50] LABS: Anion Gap 15 (12-20); Blood Urea Nitrogen 22 mg/dL (9-16); Carbon Dioxide 28 mmol/L (22-29); Chloride 96 mmol/L (96-108); Estimated Glomerular Filt Rate 58; Potassium 3.5 mmol/L (3.3-5.1); Sodium 135 mmol/L (135-145)
== END 2025-07-29 13:50 | disposition home or self-care (01) ==
LOC: HO.HKASLDS 13:49
PROVIDERS: Visit Provider Internal Medicine Nephrology
DX: E11.21 Type 2 diabetes mellitus with diabetic nephropathy (principal)
CPT/HCPCS: 36415; 80051; 82565; 84520

== ENCOUNTER 2025-07-30 10:10 | Outpatient (AMB) | payer MEDICAID, SELFPAY ==
--- NOTE | 2025-07-30 10:20 | HO.NEPHOV_ITS ---
Vital Signs 07/30/25 10:22 Height 5 ft 7 in Weight 201 lb 2 oz BMI 31.5 BP 102/70 Blood Pressure Location Lt brachial Position Sitting Intake Visit Reasons: Early Jul w/ labs-Conf Deputy Sheriff K9 Handler Required: Yes Deputy Sheriff K9 Handler Language: System Programmer Services: Deputy Sheriff K9 Handler Present Deputy Sheriff K9 Handler Name: Myke [id number] Information Interpreted: clinical only Accompanied by: Daughter Allergies sulfamethoxazole (From BACTRIM) Allergy (Severe, Verified 07/30/25 10:20) FACIAL SWELLING trimethoprim (From BACTRIM) Allergy (Severe, Verified 07/30/25 10:20) FACIAL SWELLING levofloxacin (From LEVAQUIN) Allergy (Intermediate, Verified 07/30/25 10:20) REDNESS, SWELLING ITCHINESS AT IV SITE HPI Comments Details: Melissa was seen in the office today in follow-up of her chronic kidney disease on a background of diabetic nephropathy. She has history of vascular disease needing surgery for foot but currently denies any active peripheral arterial disease symptoms. She has history of coronary artery disease needing intervention. She is on LUIS inhibitor which is tolerating well. Her blood sugars are better controlled and her blood pressure is at goal. She denies any chest pain, shortness of breath, proximal nocturnal dyspnea, orthopnea, pedal edema, orthostatic or urinary symptoms. She does not take any nonsteroidal anti-inflammatories and maintain good hydration. She has been having a foot ulcer on L foot. [facility] Medical History (Updated 04/12/25 @ 15:30 by Iman Joy NP) Hyperlipidemia Asthma DEVYN (obstructive sleep apnea) Osteomyelitis Wound of left foot DM2 (diabetes mellitus, type 2) Hyperlipidemia LDL goal <100 CAD (coronary artery disease) Retinopathy Anxiety Depression Type 2 diabetes mellitus with hyperglycemia, with long-term current use of insulin Proteinuria Type 2 diabetes mellitus with other diabetic kidney complication Essential hypertension Obesity due to excess calories Type 2 diabetes mellitus with diabetic polyneuropathy Surgical History Hx of breast biopsy Hx of section Hx of tubal ligation Hx of coronary artery bypass surgery Family History Maternal Grandmother Diabetes Cervical cancer Brother Diabetes Sister Breast cancer Social History Household Members: Family Household Members Other:: 1 Housing: Apartment Alcohol intake: never Patient Tobacco Use Status: Never used Tobacco Second Hand Smoke Exposure: No service: No Current occupational status: unemployed Female Reproductive History Menstrual Age of Menarche: 11 Review of Systems Const All systems reviewed & are unremarkable except as noted in HPI and below Physical Exam Vital Signs: Last Vital Signs BP 102/70 07/30/25 10:22 BMI result Body Mass Index 31.5 Const General: comfortable and no acute distress Orientation/consciousness: patient oriented x3 HEENT Head: Yes normocephalic Mouth: Normal oral and palatal mucosa present Eyes EOM: EOMs intact bilaterally Neck Neck: Yes supple Resp Auscultation: clear to auscultation bilaterally Cardio Jugular venous distension: no JVD Rate: regular rate GI Palpation (GI): Soft to palpation Auscultation: normal bowel sounds General: Yes no CVA tenderness Back/Spine/Pelvis Back: no CVA tenderness Skin General skin exam: no rashes or lesions noted Neuro General: patient oriented x3 and moves all extremities Extrem General: Yes no pedal edema Results Reviewed Nephrology Results: Sodium, (135-145) 135 mmol/L 07/29/25 Potassium, (3.3-5.1) 3.5 mmol/L 07/29/25 Chloride, (96-108) 96 mmol/L 07/29/25 Carbon Dioxide, (22-29) 28 mmol/L 07/29/25 BUN, (9-16) 22 mg/dL H 07/29/25 Creatinine, (0.5-1.4) 1.01 mg/dL 07/29/25 Calcium, (8.4-10.2) 10.3 mg/dL H Δ 05/15/25 Assessment & Plan Assessment & Plan (1) Hypertension: Code(s): I10 - Essential (primary) hypertension Category: Medical Qualifiers: Hypertension type: primary hypertension Qualified Code(s): I10 - Essential (primary) hypertension (2) CKD stage 3 secondary to diabetes: Code(s): E11.22 - Type 2 diabetes mellitus with diabetic chronic kidney disease; N18.30 - Chronic kidney disease, stage 3 unspecified Category: Medical (3) Hypercalcemia: Code(s): E83.52 - Hypercalcemia Category: Medical (4) Diabetic nephropathy: Code(s): E11.21 - Type 2 diabetes mellitus with diabetic nephropathy Category: Medical Qualifiers: Diabetes mellitus type: type 2 Qualified Code(s): E11.21 - Type 2 diabetes mellitus with diabetic nephropathy Giancarlo Torres has diabetic hypertensive renal disease. She has proteinuria. Her blood sugar control is fair. Her blood pressure is at goal. Her ACEI and Sironolactone had been on hold . ( due to ALIN ) She would benefit from a bit more weight loss. Her volume status is optimal. She has no peripheral arterial symptoms. She should stay off spironolactone. I shall start Jardiance at next visit and will consider restarting low dose ACEI with time, at next visit based on data once her L leg wound has healed. Answered all questions and follow-up was given Orders: Orders Creatinine 3 Months E11.21 - Type 2 diabetes mellitus with diabetic nephropathy, E11.22 - Type 2 diabetes mellitus with diabetic chronic kidney disease, E83.52 - Hypercalcemia, I10 - Essential (primary) hypertension, N18.30 - Chronic kidney disease, stage 3 unspecified Blood Urea Nitrogen 3 Months E11.21 - Type 2 diabetes mellitus with diabetic nephropathy, E11.22 - Type 2 diabetes mellitus with diabetic chronic kidney disease, E83.52 - Hypercalcemia, I10 - Essential (primary) hypertension, N18.30 - Chronic kidney disease, stage 3 unspecified Electrolytes 3 Months E11.21 - Type 2 diabetes mellitus with diabetic nephropathy, E11.22 - Type 2 diabetes mellitus with diabetic chronic kidney disease, E83.52 - Hypercalcemia, I10 - Essential (primary) hypertension, N18.30 - Chronic kidney disease, stage 3 unspecified Calcium 3 Months E11.21 - Type 2 diabetes mellitus with diabetic nephropathy, E11.22 - Type 2 diabetes mellitus with diabetic chronic kidney disease, E83.52 - Hypercalcemia, I10 - Essential (primary) hypertension, N18.30 - Chronic kidney disease, stage 3 unspecified Protein Creatinine Ratio, Ur 3 Months E11.21 - Type 2 diabetes mellitus with diabetic nephropathy, E11.22 - Type 2 diabetes mellitus with diabetic chronic kidney disease, E83.52 - Hypercalcemia, I10 - Essential (primary) hypertension, N18.30 - Chronic kidney disease, stage 3 unspecified Coding Level of Care Code Est Pt Level 4 (36461) Diagnoses Primary hypertension I10 Hypertension type: primary hypertension CKD stage 3 secondary to diabetes E11.22; N18.30 Hypercalcemia E83.52 Diabetic nephropathy associated with type 2 diabetes mellitus E11.21 Diabetes mellitus type: type 2
[2025-07-30 10:22] VITALS: BP 102/70; BMI 31.5
--- OUTSIDE RECORDS SUMMARY | 2025-07-30 11:53 | XMS_ITS | Encounter Summary ---
Author Organization [employer] Address [address] [facility] [address] 7t [place] [address] Care Team Providers Care Card Grinder Name Role Phone Yolie Desir MD Primary Care Provider + Reason for Visit * Reason Comments Med Refill Encounter Details Date Type Department Care Team (Late st Contact Info) Description 12/29/2023 Refill [facility] MEDICINE [address] [place], [place] [phone] Yolie Desir MD [address] [place], [place] [phone] Diabetic nephropathy associated with type 2 diabetes mellitus ([facility]/HCC) Social History Tobacco Use Types Packs/Day Years [...] Upcoming Encounters Date Type Department Care Team ([facility] st Contact Info) Description 08/30/2025 9:15 AM EDT Office Visit [facility] MEDICINE [address] [place] [phone] Yolie Desir MD [address] [place] [address] documented as of this encounter Visit Diagnoses Diagnosis Diabetic nephropathy associated with type 2 diabetes mellitus (CMS/[facility]) documented in this encounter Additional Health Concerns Assessment Noted Time PHQ-9 Depression Total Score: 8 02/11/20 23 9:24 AM EDT documented as of this encounter Care Teams Card Grinder Relationship Specialty Start Date End Date Yolie Desir MD [address] [place] [address] PCP - General Family Medicine 10/26/19 Hilda Cardoso Manager Security And SafetyDocumentation Engineer 04/18/25 Hilda Cardoso Hedis Review NurseDocumentation Engineer 05/22/25 documented as of this encounter
--- OUTSIDE RECORDS SUMMARY | 2025-07-30 11:53 | XMS_ITS | Encounter Summary ---
Author Organization [facility] [facility] Address [address] [facility] 7t [place] [address] Care Team Providers Care Electrodynamicist Name Role Phone Yolie Desir MD Primary Care Provider + Reason for Visit * Reason Comments Med Refill Encounter Details Date Type Department Care Team ([facility] st Contact Info) Description 12/22/2023 Refill [facility] MEDICINE 230 [place], [place] [phone] [facility] 230 [place] [address] Acute on chronic congestive heart failure, unspecified [...] 9:15 AM EDT Office Visit [facility] MEDICINE [address] [place] [address] Yolie Desir MD [address] [place] [address] documented as of this encounter Visit Diagnoses Diagnosis Acute on chronic congestive heart failure, unspecified heart failure type (CMS/HCC) documented in this encounter Additional Health Concerns Assessment Noted Time PHQ-9 Depression Total Score: 8 02/11/20 23 9:24 AM EDT documented as of this encounter Care Teams Electrodynamicist Relationship Specialty Start Date End Date Yolie Desir MD [address] [place] [address] PCP - General Family Medicine 10/26/19 Hilda Cardoso Jack WinderScheduler 04/18/25 Hilda Cardoso Market Asset Protection ManagerScheduler 05/22/25 documented as of this encounter
--- OUTSIDE RECORDS SUMMARY | 2025-07-30 11:53 | XMS_ITS | Patient Health Record ---
Author Organization [facility] Address [address] [place] [address] Care Team Providers Care Metal Miner Blasting Name Role Phone Eagle (DO NOT USE), [facility] Primary Care Provi jaison Rick Estrada [...] Problem Status W/U Status Risk Notes Problem [id number] Epigastric pain (R10.13) Active confirmed Problem 570100351 Gastroesophageal reflux disease, esophagitis presence not specified (K21.9) Active confirmed Problem 09322213 Diarrhea, unspecified type (R19.7) Active confirmed Plan Of Treatment Future Test Test Name Order Date UPPER GI ENDOSCOPY 09/09/2017 COLONOSCOPY 09/09/2017 Insurance Providers Payer Name Payer Address Payer Phone Subscriber Number Group Number Insured Name Patient Relationship to Insured Coverage Start Date Coverage End Date [facility] [address] [place] [phone] [id number] MONI YEE Self - patient is the insured Medical (General) History Medical History History ICD Code diabetes mellitus coronary artery disease with history of [place] 2016 kidney disease hypertension sleep apnea asthma systolic congestive heart failure depression neuropathy Surgical History Surgery Date(Month/Year) corneal transplant-right eye 2014 left hand surgery 2014 coronary artery bypass graft 01/2016, PCI with JOSE of mid LAD and ramus 03/06 after occlusion of GUNN and SVG graft 2016 tubal ligation cholecystectomy uterine polypectomy
--- OUTSIDE RECORDS SUMMARY | 2025-07-30 11:53 | XMS_ITS | Encounter Summary ---
Author Organization [employer] [facility] Address [address] [facility] 7t [place] [address] Care Team Providers Care High School Foreign Language Tutor Name Role Phone Yolie Desir MD Primary Care Provider + Reason for Visit * Reason Comments Med Refill Encounter Details Date Type Department Care Team (Late st Contact Info) Description 11/29/2023 Refill [facility] 230 [place], [place] [phone] Axel Graf MD 230 [place] [address] Diabetic nephropathy associated with type 2 diabetes mellitus ([facility]) Social History Tobacco Use [...] Description 08/30/2025 9:15 AM EDT Office Visit [facility] MEDICINE [address] [place] [address] Yolie Desir MD [address] [place] [address] documented as of this encounter Visit Diagnoses Diagnosis Diabetic nephropathy associated with type 2 diabetes mellitus (CMS/HCC) documented in this encounter Additional Health Concerns Assessment Noted Time PHQ-9 Depression Total Score: 8 02/11/20 23 9:24 AM EDT documented as of this encounter Care Teams High School Foreign Language Tutor Relationship Specialty Start Date End Date Yolie Desir MD [address] [place] [address] PCP - General Family Medicine 10/26/19 Hilda Cardoso Music CriticFamily Life Counselor 04/18/25 Hilda Cardoso Tankroom WorkerFamily Life Counselor 05/22/25 documented as of this encounter
--- OUTSIDE RECORDS SUMMARY | 2025-07-30 11:53 | XMS_ITS | Encounter Summary ---
Author Organization [employer] Address [address] [facility] 7t [place] [address] Care Team Providers Care Special Forces Communications Sergeant Name Role Phone Yolie Desir MD Primary Care Provider + Reason for Visit * Reason Comments Med Refill Encounter Details Date Type Department Care Team ([facility] st Contact Info) Description 12/26/2023 Refill [facility] MEDICINE 230 [place], [place] [phone] [facility] 230 [place] [address] Acute on chronic congestive heart failure, unspecified [...] Description 08/30/2025 9:15 AM EDT Office Visit [facility] MEDICINE [address] [place] [address] Yolie Desir MD [address] [place] [address] documented as of this encounter Visit Diagnoses Diagnosis Acute on chronic congestive heart failure, unspecified heart failure type (CMS/HCC) documented in this encounter Additional Health Concerns Assessment Noted Time PHQ-9 Depression Total Score: 8 02/11/20 23 9:24 AM EDT documented as of this encounter Care Teams Special Forces Communications Sergeant Relationship Specialty Start Date End Date Yolie Desir MD [address] [place] [phone] PCP - General Family Medicine 10/26/19 Hilda Cardoso Small Animal CaretakerPodiatric Surgeon 04/18/25 Hilda Cardoso Critical Care SpecialistPodiatric Surgeon 05/22/25 documented as of this encounter
--- OUTSIDE RECORDS SUMMARY | 2025-07-30 11:53 | XMS_ITS | Encounter Summary ---
Author Organization [employer] Address [address] [facility] 7t [place] [address] Care Team Providers Care Clinical Safety Manager Name Role Phone Yolie Desir MD Primary Care Provider + Reason for Visit * Reason Comments Med Refill Encounter Details Date Type Department Care Team ([facility] st Contact Info) Description 01/02/2024 Refill [facility] MEDICINE [address] [place], [place] [phone] [facility] [address] [place] [address] Acute on chronic congestive heart failure, unspecified [...] Description 08/30/2025 9:15 AM EDT Office Visit [facility] MEDICINE [address] [place] [address] Yolie Desir MD [address] [place] [address] documented as of this encounter Visit Diagnoses Diagnosis Acute on chronic congestive heart failure, unspecified heart failure type (CMS/HCC) documented in this encounter Additional Health Concerns Assessment Noted Time PHQ-9 Depression Total Score: 8 02/11/20 23 9:24 AM EDT documented as of this encounter Care Teams Clinical Safety Manager Relationship Specialty Start Date End Date Yolie Desir MD [address] [place] [address] PCP - General Family Medicine 10/26/19 Hilda Cardoso Rn NurseryLbd Teacher 04/18/25 Hilda Cardoso Well Head PumperLbd Teacher 05/22/25 documented as of this encounter
--- OUTSIDE RECORDS SUMMARY | 2025-07-30 11:53 | XMS_ITS | Encounter Summary ---
Author Organization [employer] Address [address] [facility] 7t [place] [address] Care Team Providers Care Housekeeper Head Name Role Phone Yolie Desir MD Primary Care Provider + Reason for Visit * Reason Comments Med Refill Encounter Details Date Type Department Care Team (Late st Contact Info) Description 06/15/2024 Refill [facility] 230 [place], [place] [phone] Yolie Desir MD 230 [place], [place] [phone] Diabetic nephropathy associated with type 2 diabetes mellitus ([facility]) Social History Tobacco Use Types [...] Description 08/30/2025 9:15 AM EDT Office Visit [facility] MEDICINE [address] [place] [address] Yolie Desir MD [address] [place] [address] documented as of this encounter Visit Diagnoses Diagnosis Diabetic nephropathy associated with type 2 diabetes mellitus (CMS/HCC) documented in this encounter Additional Health Concerns Assessment Noted Time PHQ-9 Depression Total Score: 8 02/11/20 23 9:24 AM EDT documented as of this encounter Care Teams Housekeeper Head Relationship Specialty Start Date End Date Yolie Desir MD [address] [place] [address] PCP - General Family Medicine 10/26/19 Hilda Cardoso Instructional Technology DirectorRoll Weigher 04/18/25 Hilda Cardoso Engine Repair SupervisorRoll Weigher 05/22/25 documented as of this encounter
--- OUTSIDE RECORDS SUMMARY | 2025-07-30 11:53 | XMS_ITS | Encounter Summary ---
Author Organization [employer] Address [address] 7t [place] [address] Care Team Providers Care Supervisor Concrete Stone Fabricating Name Role Phone Yolie Desir MD Primary Care Provider + Reason for Visit * Reason Comments Med Refill Encounter Details Date Type Department Care Team ([facility] st Contact Info) Description 11/14/2023 Refill [facility] [address] [place] [address] [phone] Preet Blackwood MD [address] [place], [place] [phone] Social History Tobacco Use Types Packs/Day Years [...] Description 08/30/2025 9:15 AM EDT Office Visit [facility] [address] [place] [address] Yolie Desir MD [address] [place] [address] documented as of this encounter Visit Diagnoses Not on filedocumented in this encounter Additional Health Concerns Assessment Noted Time PHQ-9 Depression Total Score: 8 02/11/20 23 9:24 AM EDT documented as of this encounter Care Teams Supervisor Concrete Stone Fabricating Relationship Specialty Start Date End Date Yolie Desir MD [address] [place] [address] PCP - General Family Medicine 10/26/19 Hilda Cardoso House Worker GeneralGeneticist 04/18/25 Hilda Cardoso Drilling EngineerGeneticist 05/22/25 documented as of this encounter
--- OUTSIDE RECORDS SUMMARY | 2025-07-30 11:54 | XMS_ITS | Encounter Summary ---
Author Organization [employer] Address [address] [facility] 7t [place] [address] Care Team Providers Care Vice President Tax Name Role Phone Yolie Desir MD Primary Care Provider + Encounter Details Date Type Department Care Team (Latest Contact Info) Description 07/12/2025 Results Follow-Up [facility] [address] [place], [place] [phone] Yolie Desir MD [address] [place] [address] BI Mammogram Screening Tomosynthesis Bilateral Social History [...] Description 08/30/2025 9:15 AM EDT Office Visit [facility]INE [address] [place] [phone] Yolie Desir MD [address] [place] [phone] documented as of this encounter Visit Diagnoses Not on filedocumented in this encounter Additional Health Concerns Assessment Noted Time PHQ-9 Depression Total Score: 6 05/30/20 25 10:56 AM EDT documented as of this encounter Care Teams Vice President Tax Relationship Specialty Start Date End Date Yolie Desir MD [address] [place] [phone] PCP - General Family Medicine 10/26/19 Hilda Cardoso Extension SupervisorSheet Metal Worker Maintenance 04/18/25 Hilda Cardoso Health Education TeacherSheet Metal Worker Maintenance 05/22/25 documented as of this encounter
--- OUTSIDE RECORDS SUMMARY | 2025-07-30 11:54 | XMS_ITS | Clinical Summary ---
Author Organization [facility] Address [address] [facility] [address] [place] [phone] Phone Care Team Providers Care Natural Gas Inspector Name Role Phone Yolie Desir MD Primary [...] Devices Not on file Insurance [address] [place] [id number] [facility] [employer] [facility] [address] [place] [address] [address] [employer] [facility] [place] [place] [id number] [facility] [address] [place] [address] [place] [address] [place] [address] [place] [address] [place] [address] [employer] Care Teams Natural Gas Inspector Relationship Specialty Start Date End Date Yolie Desir MD [address] [place] [address] [address] [place] [phone] PCP - General Internal Medicine 03/31/21 Additional Source Comments The information contained in this document represents components of the legal health record. It is not the complete legal health record.[facility]
--- OUTSIDE RECORDS SUMMARY | 2025-07-30 11:54 | XMS_ITS | Encounter Summary ---
Author Organization [employer] [facility] Address [address] [place] [address] 7t [place] [address] Care Team Providers Care Student Driving Instructor Name Role Phone Yolie Desir MD Primary Care Provider + Reason for Visit * Reason Onset Date Comments Prior Authorization 10/28/2022 Encounter Details Date Type Department Care Team (Late st Contact Info) Description 10/28/2022 Telephone [facility] [address] [place], [place] [phone] Yolie Desir MD [address] [place], [place] [phone] Prior Authorization Social History Tobacco Use Types [...] Description 08/30/2025 9:15 AM EDT Office Visit [facility] [address] [place] [address] Yolie Desir MD [address] [place] [address] documented as of this encounter Visit Diagnoses Not on filedocumented in this encounter Care Teams Student Driving Instructor Relationship Specialty Start Date End Date Yolie Desir MD [address] [place] [phone] PCP - General Family Medicine 10/26/19 Hilda Cardoso Cleaner Touch Up WorkerRecorder Helper Gravity Prospecting 04/18/25 Hilda Cardoso Sheet Metal InsulatorRecorder Helper Gravity Prospecting 05/22/25 documented as of this encounter
--- OUTSIDE RECORDS SUMMARY | 2025-07-30 11:54 | XMS_ITS | Encounter Summary ---
Author Organization [employer] [facility] Address [address] [facility] 7t [place] [address] Care Team Providers Care Dye House Vat Worker Name Role Phone Yolie Desir MD Primary Care Provider + Encounter Details Date Type Department Care Team (Late st Contact Info) Description 01/25/2023 Abstract [facility] MED[facility]INE [address] [place] [phone] Yolie Desir MD [address] [place] [phone] Social History Tobacco Use Types Packs/Day Years [...] Description 08/30/2025 9:15 AM EDT Office Visit [facility] [address] [place] [address] [phone] Yolie Desir MD [address] [place] [phone] documented as of this encounter Visit Diagnoses Not on filedocumented in this encounter Care Teams Dye House Vat Worker Relationship Specialty Start Date End Date Yolie Desir MD [address] [place] [phone] PCP - General Family Medicine 10/26/19 Hilda Cardoso Fusing Machine TenderGopherman 04/18/25 Hilda Cardoso Helper CoordinatorGopherman 05/22/25 documented as of this encounter
--- OUTSIDE RECORDS SUMMARY | 2025-07-30 11:54 | XMS_ITS | Clinical Summary ---
Author Organization [email or web address] Address [address] [place] [address] 7t [place] [address] Care Team Providers Care Enrollment Representative Name Role Phone Yolie Ashby MD Primary [...] 10 DAYS 024 Active Continuous Blood Gluc Lost Charge Card Clerk ([employer] G6 senior credit analyst) device USE DIRECTED Active carvedilol (Coreg) 6.25 [...] BY INSULIN PUMP Active Comfort EZ Pen [place] 31G X 8 MM misc USE DIRECTED [...] otherwise use Humalog pump and follow-up with painter and decorator apprentice Continue Ozempic Follow-up with ophthalmology on 06/26, advised to reschedule appointment with note teller Follow-up with me in 3 to 4 [...] Omnipod use. Continue to follow up with Optimization Consultant and change of medications. FU in 3 [...] to increase water intake and fu with [facility] in June for pelvic exam She will fu this afternoon with , painter and decorator apprentice Carpal tunnel syndrome of right wrist 01/23/2024 Overview (01/23/2024): NCS at [facility] on 12/2023= Median nerve compression at wrist [...] (05/30/2025 2:29 PM EDT): Follow-up with Dr. Maxwell/[facility], has appointment on July. 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 Advised to schedule appointment with note teller, Dr. Castro of. Rx for diabetic shoes [...] to check finger stick and fu with painter and decorator apprentice. I told pt to call painter and decorator apprentice office to fu on prescription of CGM sensor Continue lantus 50 units + Omnipod insulin pod Pt to continue regular wound care at wound clinic for left DM ulcer continue laser therapy on right eye. She is legally blind in the left eye. order labs and FU with me in 3 months Assessment & Plan (01/23/2024 12:14 PM EST): Significantly improving, fu with [facility] wound clinic I will order supplies to [...] for the trip to and back from [place] to visit her son. Mass of axilla [...] AND PLAN FOR TYPE 2 DIABETES MELLITUS ([facility]) WRITTEN ON 11/04/2023 2:41 PM BY YOLIE ASHBY MD Uncontrolled Unclear if insulin pump is working properly Told patient to call endocrinology MARYLOU to see if pump can be replaced sooner vs. Move temporarily to sc Lantus + Humalog Assessment & Plan (01/08/2025 2:18 PM EST): >>ASSESSMENT AND PLAN FOR TYPE 2 DIABETES MELLITUS ([facility]) WRITTEN ON 08/02/2024 3:15 PM BY YOLIE ASHBY MD Controlled, last A1c on 01/2024 was at goal. I will do A1c at upcoming regular visit Patient had episode of hypoglycemia today, probably due to miscalculation of insulin dose adjustment. She will fu on Tuesday with family living educator. She received glucose load today and [...] I congratulated her for reaching out to painter and decorator apprentice and compliance w/ medications I gave her information about diabetic diet, she's asking for more 1-1 substation operator conversion coaching, so I gave her information about wt reduction programs in the area Continue close fu w/ painter and decorator apprentice insulin pump + Ozempic Pt had intraocular [...] asthma, CHF vs other. Informed about the [facility] and visit ED, she request [...] Department Care Team Description 07/12/2025 Results Follow-Up [facility] [address] [place] [address] Yolie Ashby MD BI Mammogram Screening Tomosynthesis Bilateral 07/02/2025 Refill [facility] [address] [place] [address] Yolie Ashby MD Diabetic nephropathy associated with type 2 diabetes mellitus ([facility]) 06/12/2025 Telephone [facility] [address] [place] [address] Yolie Ashby MD Referral 05/31/2025 Telephone [facility] [address] [place] [address] Yolie Ashby MD DME Diabetic shoes P&O 05/31/2025 Refill [facility] [address] [facility] [place] [address] Yolie Ashby MD Diabetic nephropathy associated with type 2 diabetes mellitus ([facility]); Epigastric pain 05/30/2025 10:45 AM EDT Office Visit [facility] [address] [facility] [place] [address] Yolie Ashby MD Diabetic ulcer of left midfoot associated with type 2 diabetes mellitus, with fat layer exposed ([facility]); Diabetes mellitus type 2 with peripheral artery disease ([facility]); Screening mammogram for breast cancer; ALPESH I (cervical intraepithelial neoplasia I); Severe recurrent major depression without psychotic features ([facility]) 05/30/2025 Telephone [facility] [address] [place] [address] Yolie Ashby MD F/U APPT 05/30/2025 Travel 05/29/[address] [address] Yolie Ashby MD Chart prep 05/22/2025 Orders Only GENERIC EXTERNAL DATA DEPARTMENT Provider, Generic External Data 05/22/[address] [address] Yolie Ashby MD Care Coordination (ICP Care Plan) 05/21/[address] [address] Yloie Ashby MD Dental form 05/15/[address] [address] Yolie Ashby MD Medication Question 05/10/2025 Patient Outreach [address] [phone] Yolie Ashby MD Transition Of Care (Tcm) (HDF scheduled ) 05/06/[address] [address] Xuan Lozada NP Acute cough from Last [...] 9:15 AM EDT Office Visit [facility] [address] [place] [address] Yolie Ashby MD [address] [place] [address] Health Maintenance Due Date Last Done Comments [...] Whole Blood 107 60 - 115 mg/dL [facility] Comment:METER #: [id number] Testing performed in the Endocrinology Department [address] , [address], [facility]. 05/22/2025 1:23 PM EDT 05/22/2025 1:26 PM EDT us Generic External Data Provider LAB BLOOD ORDERAB LES Final Result [facility] [address] [place] [phone] * Referral to Podiatry (04/24/2025) us Yolie Ashby MD OUTPATIENT REFERRAL ORDE RABLES Final Result * (ABNORMAL) Lipid Panel, Standard (06/25/2024 10:51 AM EDT) Triglycerides 186(H) <150 mg/dL [facility] Comment:Desirable Triglyceri de: less than 150 mg/dLBorderline High Triglyceride 150-199 mg/dLHigh Triglyceride: 200-499 mg/dLVery High Triglyceride: greater than or equal to 5OO mg/dL Cholesterol 246(H) <200 mg/dL [facility] Comment:Desirable Cholestero l: less than 200 mg/dLBorderline High Cholesterol: 200-239 mg/dLHigh Cholesterol: greater than 239 mg/dL LDL Cholesterol Calculated 163(H) <100 mg/dL [facility] Comment:Desirable LDL: less than 100 mg/dLNear Optimal/Above Optimal LDL: 110- 129 mg/dLBorderline High LDL: 130-159 mg/dLHigh LDL: 160-189 mg/dLVery High LDL: greater than or equal to 190 mg/dL HDL Cholesterol 46 >40 mg/dL [facility] Comment:Desirable HDL: great er than 40 mg/dL Note: This HDL assay may give artificially low results in patients with liver disease. 06/25/2024 10:5 1 AM EDT 06/25/2024 10:51 AM EDT us Generic External Data Provider LAB BLOOD ORDERAB LES Final Result [facility] [address] [place] [phone] * (ABNORMAL) HPV Genotypes 16,18/45 (03/15/2023 11:10 AM EDT) HPV 16 RNA NOT DETECTED NOT DETECTED [employer] [facility] HPV 18/45 RNA DETECTED(A) NOT DETECTED [employer] [facility] Comment: Methodology: Automat Car Attendant Mediated Amplification Cervical sources are required for HPV testing. If a vaginal source from a patient who has had a total hysterectomy with removal of cervix was submitted, please contact the testing laboratory for alternative testing options. 03/15/2023 11:1 0 AM EDT 03/16/2023 6:23 AM EDT us Yolie Ashby MD LAB CYTOLOGY ORDERABLES Final Result [facility] [address], [place] [address] [employer] [facility] [address] [place] [address] * Hm Pap Smear (03/15/2023) HM Pap smear NIL HPV+ us Historical Provider HEALTH MAINTENANCE Final Result from Last 3 Months or Most Recently Relevant to Health Maintenance Insurance [facility] C3 Care Teams Enrollment Representative Relationship Specialty Start Date End Date Yolie Ashby MD [address] [place] [phone] PCP - General Family Medicine 10/26/19 Hilda Cardoso Senior Cost AccountantBox Truck Owner Operator 04/18/25 Hilda Cardoso Refrigeration SpecialistBox Truck Owner Operator 05/22/25
--- OUTSIDE RECORDS SUMMARY | 2025-07-30 11:54 | XMS_ITS | Clinical Summary ---
Author Organization [facility] Address [address] [place] [address] Phone Care Team Providers Care Grocery Shopper Name Role Phone Yolie Desir MD Primary Care Provider [phone] Allergies Active Allergy Reactions Criticality Noted Date [...] [place] Care Teams Grocery Shopper Relationship Specialty Start Date End Date Yolie Desir MD [address] [place] [address] PCP - General Internal Medicine 04/22/21
--- OUTSIDE RECORDS SUMMARY | 2025-07-30 11:54 | XMS_ITS | Encounter Summary ---
Author Organization [facility] Address [address] [facility] 7t [place] [address] Care Team Providers Care Marker Assembler Name Role Phone Yolie Desir MD Primary Care Provider + Encounter Details Date Type Department Care Team (Late st Contact Info) Description 01/25/2023 Abstract [facility] MEDICINE [address] [place] [phone] Yolie Desir MD [address] [place] [phone] Social History Tobacco Use Types Packs/Day Years [...] Description 08/30/2025 9:15 AM EDT Office Visit [facility] MEDICINE [address] [place] [address] [phone] Yolie Desir MD [address] [place] [phone] documented as of this encounter Visit Diagnoses Not on filedocumented in this encounter Care Teams Marker Assembler Relationship Specialty Start Date End Date Yolie Desir MD [address] [place] [address] PCP - General Family Medicine 10/26/19 Hilda Cardoso Data Processing ManagerClient Relations Specialist 04/18/25 Hilda Cardoso Print Binding And Finishing WorkerClient Relations Specialist 05/22/25 documented as of this encounter
== END 2025-07-30 10:35 | disposition home or self-care (01) ==
LOC: HO.HKAS 10:11
PROVIDERS: PCP Internal Medicine; Visit Provider Internal Medicine Nephrology
DX: I10 Essential (primary) hypertension (principal); E11.22 Type 2 diabetes mellitus with diabetic chronic kidney disease; N18.30 Chronic kidney disease, stage 3 unspecified; E83.52 Hypercalcemia; E11.21 Type 2 diabetes mellitus with diabetic nephropathy
CPT/HCPCS: 99214

== ENCOUNTER → 2025-07-30 10:10 | Outpatient (BNVA) | payer MEDICAID, SELFPAY | PROVIDERS: PCP Internal Medicine; Visit Provider Internal Medicine Nephrology | DX: E11.22 Type 2 diabetes mellitus with diabetic chronic kidney disease (principal); N18.30 Chronic kidney disease, stage 3 unspecified; I10 Essential (primary) hypertension; E83.52 Hypercalcemia; E11.21 Type 2 diabetes mellitus with diabetic nephropathy | CPT/HCPCS: 99212 ==

== ENCOUNTER 2025-08-12 14:21 | Outpatient (AMB) | payer MEDICAID, SELFPAY ==
--- NOTE | 2025-08-12 14:24 | A.OFFVIS_ITS ---
Vital Signs 08/12/25 14:40 BMI Reason not done Patient refused/unable BP 110/64 Blood Pressure Location Lt brachial Position Sitting Pulse 72 Pulse Source Pulse Oximeter Pulse Oximetry (%) 98 Oxygen Delivery Method Room Air Intake Visit Reasons: T2DM Intake Note: Patient present today to follow up on Type 2 Diabetes Mellitus. Last Diabetic Eye exam: 09/2024, is receiving eye injections, last injection was approx 2-3 month ago Last Podiatry Visit: Dr. Gonzalez, approx 2 weks ago, next appointment is on Tuesday08/16/2025. Operation on left foot is pending. Random Glucose: 282 mg/dl Hgb A1C: 10.6% 08/12/2025 Fire Prevention Engineer Required: Yes Fire Prevention Engineer Language: Pest Control Service Sales Agent Services: Fire Prevention Engineer Present Fire Prevention Engineer [facility] Information Interpreted: non-clinical & clinical Accompanied by: Daughter Allergies sulfamethoxazole (From BACTRIM) Allergy (Severe, Verified 08/12/25 14:30) FACIAL SWELLING trimethoprim (From BACTRIM) Allergy (Severe, Verified 08/12/25 14:30) FACIAL SWELLING levofloxacin (From LEVAQUIN) Allergy (Intermediate, Verified 08/12/25 14:30) REDNESS, SWELLING ITCHINESS AT IV SITE Medication List - Last Reconciled 08/12/25 by Horace Orozco MD acetone (urine) test (Ketone Urine Test strips) As directed aspirin (Adult Aspirin Regimen) 81 mg PO DAILY@1700 atorvastatin 10 mg PO QPM 30 days blood sugar diagnostic (FreeStyle Lite Strips) USE DIRECTED TO TEST BLOOD SUGAR FOUR TIMES DAILY blood-glucose meter (FreeStyle Lite Meter kit) As directed blood-glucose sensor (Dexcom G6 Sensor device) USE DIRECTED. CHANGE EVERY 10 DAYS Held on 04/12/25. Instructions: Doctor's Order blood-glucose transmitter (Dexcom G6 Transmitter device) once every 3 months Held on 04/12/25. Instructions: Doctor's Order carvedilol 6.25 mg PO BID clopidogrel 75 mg PO DAILY@0730 Dexcom G7 Sensor (blood-glucose sensor) As directed every 10 days NS digoxin 125 mcg PO MOWEFR@0730 epinephrine IM DIRECTED ezetimibe 10 mg PO QAM 90 days ferrous gluconate 324 mg PO DAILY@1200,1700 fluoxetine 20 mg PO DAILY@0730 fluticasone propion-salmeterol 250-50 mcg/dose (Advair Diskus) 1 ea inhalation fluticasone propionate 50 mcg/actuation 1 - 2 sprays intranasal DAILY PRN gabapentin 200 mg PO TID insulin aspart U-100 20 units before breakfast, 30 units before lunch and 30 units before dinner subcutaneously 2 times a day; insulin glargine (Lantus Solostar U-100 Insulin) 42 units once daily for pump failure subcutaneously daily; 30 days insulin lispro Inject up to 100 units via insulin pump subcutaneously daily; insulin lispro Infuse up to 120 units via insulin pump daily subcutaneously daily; insulin pump cart,automated,BT As directed changed every 72 hours isosorbide mononitrate ER 30 mg PO DAILY@0730 lancets (FreeStyle Lancets) As directed tests 4 X/day lancets (TRUEplus Lancets) USE DIRECTED TO TEST BLOOD SUGAR FOUR TIMES DAILY sibboupn-yhyofalypGq-kgsujuptN 3.5mg-400 unit- 5,000 unit/gram (Neosporin (zkz-dre-qghrf)) 1 appl topical DAILY 14 days Omnipod 5 G6-G7 Pods (Gen 5) (insulin pump cart,auto,BT,G6/7) As directed NS pen needle, diabetic (Easy Touch) USE FOUR TIMES DAILY prednisone 40 mg (2 x 20 mg) PO DAILY tirzepatide (Mounjaro) 2.5 mg (0.5 mL) subcut QWEEK torsemide 60 mg PO BID HPI Comments Details: Patient is 50 yo female with DM type 2 diagnosed in approximately 1987, here for follow up management of diabetes. She was last seen by Iman Painter NP on 05/22/2025 A1c 03/28/25 8.3 % 8.8% 10/24/24, 8 She was on steroids towards the end of February. She was hospitalized for antibiotics at [facility] for 3 days for a foot infection of the left foot. She is meeting tomorrow with Maria G SHERMAN as she has been having problems pairing her sensor to her pump. I am unable to download her pump today. She did not bring her Omnipod pump to the visit Currently on an Omnipod 5 pump. Takes Mounjaro 2.5 mg Q weekly started today Dexcom average glucose: 227 14 day continuous glucose monitor report reviewed Glucose Managment indicator 8.7 % Days with CGM data 88 % TIme in ranges: 36 % very high (above 250) 34 % high ?(181-250) 28 % in range ?(70-180] 2 % low (69-55) 1 % ?very low (below 54) [ ] Standard Deviation Interpretation [ ] Did not bring pump in for download Having hypoglycemia mid- morning infrequently. o Has retinopathy: Last eye examination 3-4 mos ago had injection Has neuropathy. Symptoms: + numbness and tingling in legs. She is on gabapentin. Has Nephropathy: 07/19/24 microalbumin 184 02/18/25 eGFR>60 last seen by Nephrology in July at which time Noel inhibitor dose was increased. 04/11/25 eGFR 59 Has CAD not on statin. No prior issues with statins per patient. Takes Zetia last LDL 155 Hypoglycemia: rare hypoglycemia Hyperglycemia: denies polyuria, nocturia 2-3x/night PFSH Medical History (Updated 04/12/25 @ 15:30 by Iman Joy NP) Hyperlipidemia Asthma DEVYN (obstructive sleep apnea) Osteomyelitis Wound of left foot DM2 (diabetes mellitus, type 2) Hyperlipidemia LDL goal <100 CAD (coronary artery disease) Retinopathy Anxiety Depression Type 2 diabetes mellitus with hyperglycemia, with long-term current use of insulin Proteinuria Type 2 diabetes mellitus with other diabetic kidney complication Essential hypertension Obesity due to excess calories Type 2 diabetes mellitus with diabetic polyneuropathy Surgical History Hx of breast biopsy Hx of section Hx of tubal ligation Hx of coronary artery bypass surgery Family History Maternal Grandmother Diabetes Cervical cancer Brother Diabetes Sister Breast cancer Social History Household Members: Family Household Members Other:: 1 Housing: Apartment Alcohol intake: never Patient Tobacco Use Status: Never used Tobacco Second Hand Smoke Exposure: No service: No Current occupational status: unemployed Female Reproductive History Menstrual Age of Menarche: 11 Physical Exam Vital Signs: Last Vital Signs Pulse 72 08/12/25 14:40 BP 110/64 08/12/25 14:40 Pulse Ox 98 08/12/25 14:40 Oxygen Delivery Method Room Air 08/12/25 14:40 Absence of Cushingoid features. Absence of acromegalic features. Neck exam reveals nl size thyroid about 15 gms. No thyroid nodules palpable. No carotid bruits present. Lungs CTA. Heart S1 S2, Reg R/R. No M/R/ G. Skin exam reveals absence of vitiligo or acanthosis nigricans. Abdominal exam reveals Soft NT/ND with NA BS. No organomegaly present. Neck Other: . Extrem Other: Visual exam of foot performed.L foot ulceration bandaged followed by wound clinic No onchomycosis, no callouses.Pulses 2 + distally Sensation intact to monofilament exam. Vibratory sensation sensed is decreased with 128 Hz tuning fork Results AMB Hemoglobin A1c AMB Hemoglobin A1c 10.6 % Last Edit by SALUD Lester on 14:46 Results Reviewed Results Reviewed: Laboratory Last Values Glucose (Clinic) 282 mg/dL (60-115) H 08/12/25 14:37 Hgb A1c (Clinic) 10.6 % (4.0-6.0) H 08/12/25 14:42 Assessment & Plan Assessment & Plan (1) Type 2 diabetes mellitus with other diabetic kidney complication: Code(s): E11.29 - Type 2 diabetes mellitus with other diabetic kidney complication Category: Medical Plan: This is a 48-year-old female with a history of type 2 diabetes with Omnipod dash insulin pump and Mounjaro with poor glycemic control and known microvascular and macrovascular complications namely CKD, neuropathy, retinopathy and CAD. Plan is have the patient follow-up with the certified breastfeeding educator today. Have patient bring the pump in on follow up visit so it can be adjusted. Can make any adjustments the pump today because pump is not present. Explained with spanish medical interpreter present correlation of poor glycemic control with developement and progression of complications (2) Hyperlipidemia: Code(s): E78.5 - Hyperlipidemia, unspecified Category: Medical Plan: LDL not at goal on sub maximum doses of atorvastatin and ezetimibe Orders: Orders Lipid Panel 6 Weeks E78.5 - Hyperlipidemia, unspecified AMB Hemoglobin A1c Today E11.29 - Type 2 diabetes mellitus with other diabetic kidney complication Medications: New atorvastatin (Lipitor) 20 mg PO BEDTIME 30 tabs 5RF Discontinued atorvastatin Discontinued Reason: Doctor's Order 10 mg PO QPM 30 days 30 tabs 3RF Coding Level of Care Code Est Pt Level 4 (66157) Complex EM visit Add On G2211 Diagnoses Type 2 diabetes mellitus with other diabetic kidney complication E11.29 Hyperlipidemia E78.5
[2025-08-12 14:40] VITALS: BP 110/64; PULSE 72; O2SAT 98
[2025-08-12 14:43] LABS: Glucose, Whole Blood 282 mg/dL (60-115)
--- OUTSIDE RECORDS SUMMARY | 2025-08-12 16:53 | XMS_ITS | Encounter Summary ---
Author Organization [employer] [facility] Address [address] [place] [address] [address] [place] [address] Care Team Providers Care Washing Machine Repairer Name Role Phone Yolie Desir MD Primary Care Provider + Reason for Visit * Reason Comments Med Refill
--- OUTSIDE RECORDS SUMMARY | 2025-08-12 16:53 | XMS_ITS | Clinical Summary ---
Demographics Address [address] [place] [address]
== END 2025-08-12 15:03 | disposition home or self-care (01) ==
LOC: HO.ENCR 14:22
PROVIDERS: PCP Internal Medicine; Visit Provider Internal Medicine Endocrinology, Diabetes & Metabolism
DX: E11.29 Type 2 diabetes mellitus with other diabetic kidney complication (principal); E78.5 Hyperlipidemia, unspecified
CPT/HCPCS: 99214

== ENCOUNTER → 2025-08-12 14:21 | Outpatient (BNVA) | payer MEDICAID, SELFPAY | PROVIDERS: PCP Internal Medicine; Visit Provider Internal Medicine Endocrinology, Diabetes & Metabolism | DX: E11.29 Type 2 diabetes mellitus with other diabetic kidney complication (principal); E78.5 Hyperlipidemia, unspecified | CPT/HCPCS: 82947; 83036; 99212 ==

== ENCOUNTER 2025-09-04 13:34 | Outpatient (AMB) | payer MEDICAID, SELFPAY ==
--- NOTE | 2025-09-04 14:22 | A.OFFVIS_ITS ---
Intake Intake Visit Reasons: DM Allergies sulfamethoxazole (From BACTRIM) Allergy (Severe, Verified 08/12/25 14:30) FACIAL SWELLING trimethoprim (From BACTRIM) Allergy (Severe, Verified 08/12/25 14:30) FACIAL SWELLING levofloxacin (From LEVAQUIN) Allergy (Intermediate, Verified 08/12/25 14:30) REDNESS, SWELLING ITCHINESS AT IV SITE HPI Comprehensive Diabetes Asmnt Most Recent Diabetes Results: 2 Hemoglobin A1c 8.7 % 08/31/19 Microalb/Creat Ratio, (<30) 415.7 ug/mg cr H 06/25/24 Cholesterol, (<200) 216 mg/dL H 04/11/25 HDL Cholesterol, (>40) 47 mg/dL 04/11/25 Triglycerides, (<150) 145 mg/dL 04/11/25 Creatinine, (0.5-1.4) 1.01 mg/dL 07/29/25 BUN, (9-16) 22 mg/dL H 07/29/25 Sodium, (135-145) 135 mmol/L 07/29/25 Potassium, (3.3-5.1) 3.5 mmol/L 07/29/25 Chloride, (96-108) 96 mmol/L 07/29/25 Carbon Dioxide, (22-29) 28 mmol/L 07/29/25 Calcium, (8.4-10.2) 10.3 mg/dL H Δ 05/15/25 AST, (5-31) 15 U/L 10/27/22 ALT, (0-31) 18 U/L 10/27/22 Total Protein, (6.5-8.0) 8.0 g/dL 10/27/22 Albumin, (3.5-5.0) 4.2 g/dL 04/11/25 [facility] Medical History (Updated 04/12/25 @ 15:30 by Iman Joy NP) Hyperlipidemia Asthma DEVYN (obstructive sleep apnea) Osteomyelitis Wound of left foot DM2 (diabetes mellitus, type 2) Hyperlipidemia LDL goal <100 CAD (coronary artery disease) Retinopathy Anxiety Depression Type 2 diabetes mellitus with hyperglycemia, with long-term current use of insulin Proteinuria Type 2 diabetes mellitus with other diabetic kidney complication Essential hypertension Obesity due to excess calories Type 2 diabetes mellitus with diabetic polyneuropathy Surgical History Hx of breast biopsy Hx of section Hx of tubal ligation Hx of coronary artery bypass surgery Family History Maternal Grandmother Diabetes Cervical cancer Brother Diabetes Sister Breast cancer Social History Household Members: Family Household Members Other:: 1 Housing: Apartment Alcohol intake: never Patient Tobacco Use Status: Never used Tobacco Second Hand Smoke Exposure: No service: No Current occupational status: unemployed Female Reproductive History Menstrual Age of Menarche: 11 Assessment & Plan Assessment & Plan (1) Type 2 diabetes mellitus with other diabetic kidney complication: Code(s): E11.29 - Type 2 diabetes mellitus with other diabetic kidney complication Plan: Patient presents for pump training for Omni pod 5 pump and Dexcom G6 CGM training today. - off insulin up pump backup plan Patient only has 5 days worth of insulin pump data Patient reports she was hospitalized for infection in Left pinky toe. discussed the effects of hyperglycemia and healing. importance of controlling glucose after surgery While in the hospital insulin pump therapy was discontinued. since resuming pump therapy glucose has been well controlled Safety information: Importance of a backup plan, for manual injections, proper prescriptions and emergency supplies Pt given copy on off pump plan Patient understands the basic concepts of pump therapy, how to give insulin for meals and snacks, how to troubleshoot for hyper and hypoglycemia. Setting verified by CDCES, see changes made to patient's insulin pump settings at today's visit Basal rate(s) (units/hour) : 12 AM? to 12 AM 1.6 units / hr New 12 AM to 7 AM 0.8 units / hr New 7 AM to 12 AM 1.3 units / hr Bolus setting Insulin Carbohydrate Ratio (s) 12 AM? to 12 PM? 1:4 12 PM to 12 AM? 1:3.5 Correction Factor / Sensitivity Factor 12 AM? to 12 PM? 1:20 Active Insulin Time:?4 hours BG target range 110 mg/dL Correction threshold 120 mg/dL Patient Instructions: follow-up with life educator in 3 months Coding Level of Care Code Est Pt Level 1 (17974) Diagnoses Type 2 diabetes mellitus with other diabetic kidney complication E11.29
--- OUTSIDE RECORDS SUMMARY | 2025-09-04 17:22 | XMS_ITS | Encounter Summary ---
Author Organization [employer] Address [address] [facility] [address] [place] [address] Care Team Providers Care Real Estate Photographer Name Role Phone Yolie Desir MD Primary Care Provider + Reason for Visit * Reason Comments Med Refill Encounter Details Date Type Department Care Team ([facility] st Contact Info) Description 12/26/2023 Refill [facility] [address] [place], [place] [phone] [facility] [address] [place] [address] Acute on chronic congestive heart failure, unspecified [...] Care Team (Late st Contact Info) Description 09/12/2025 10:45 AM EDT Office Visit [facility] [address] [place] [phone] Yolie Desir MD [address] [place] [phone] 10/25/2025 10:45 AM EST Office Visit [address] [address] Yolie Desir MD [address] [place] [phone] documented as of this encounter Visit Diagnoses Diagnosis Acute on chronic congestive heart failure, unspecified heart failure type (HCC) documented in this encounter Additional Health Concerns Assessment Noted Time PHQ-9 Depression Total Score: 8 02/11/20 23 9:24 AM EDT documented as of this encounter Care Teams Real Estate Photographer Relationship Specialty Start Date End Date Yolie Desir MD [address] [place] [phone] PCP - General Family Medicine 10/26/19 Hilda Cardoso Mortgage ConsultantShaping Machine Tender 04/18/25 Hilda Cardoso Six Pack PackerShaping Machine Tender 05/22/25 [facility] 08/29/25 documented as of this encounter
--- OUTSIDE RECORDS SUMMARY | 2025-09-04 17:22 | XMS_ITS | Encounter Summary ---
Author Organization [employer] Address [address] [facility] [address] [place] [address] Care Team Providers Care Leather Lacer Name Role Phone Yolie Desir MD Primary Care Provider + Reason for Visit * Reason Onset Date Comments verbal orders 09/03/2025 Encounter Details Date Type Department Care Team ([facility] st Contact Info) Description 09/03/2025 Telephone [facility] [address] [place], [place] [phone] Yolie Desir MD [address] [place] [address] verbal orders Social History Tobacco Use Types Packs/Day Years [...] encounter Miscellaneous Notes * Telephone Encounter - Yoanna Mercado RN - 09/03/2025 3:27 PM EDT Noted pt. Discharged from hospital with VNA services. HDF upcoming. TC returned to [facility] and provided verbal orders for pt.'s services. * Telephone Encounter - Du Pearson - 09/03/2025 3:10 PM EDT Tc from [facility] with [facility] requesting a verbal order for skilled nurse with PT and OT. Contact nicho at [phone] if she does not picker and packer you can LVM stating yes and no. documented in this encounter Plan of Treatment Upcoming Encounters Date Type Department Care Team ([facility] st Contact Info) Description 09/12/2025 10:45 AM EDT Office Visit [facility] [address] [place] [phone] Yolie Desir MD [address] [place], [place] [phone] 10/25/2025 10:45 AM EST Office Visit [facility] [address] [place] [address] Yolie Desir MD [address] [place] [address] documented as of this encounter Visit Diagnoses Not on filedocumented in this encounter Additional Health Concerns Assessment Noted Time PHQ-9 Depression Total Score: 6 05/30/20 10:56 AM EDT documented as of this encounter Care Teams Leather Lacer Relationship Specialty Start Date End Date Yolie Desir MD [address] [place] [address] [phone] PCP - General Family Medicine 10/26/19 Hilda Cardoso Painting Department SupervisorDynamite Packing Machine Feeder 04/18/25 Hilda Cardoso Gambling SupervisorDynamite Packing Machine Feeder 05/22/25 [facility] 08/29/25 documented as of this encounter
--- OUTSIDE RECORDS SUMMARY | 2025-09-04 17:22 | XMS_ITS | Clinical Summary ---
Author Organization [employer] Address [address] [facility] 7t [place] [address] Care Team Providers Care Business Line Controller Name Role Phone Boo Ashby MD Primary Care Provider + Allergies Active Allergy Reactions Criticality Noted Date Comments Levofloxacin 03/15/2019 Sulfamethoxazole-Trimethopri m Other 04/13/2021 Macular Edema per Legacy Notes Medications * This document contains information received from the source organization and may not represent a complete record from that organization. Aspirin Low Dose 81 MG EC tablet [...] NOSTRIL EVERY DAY NEEDED 48 g 5 Active Spacer/Aero-Hol ding Chambers (OptiChamber Colleen) misc 1 each every 4 (four) hours if needed (asthma). 1 each Active torsemide (Demadex) 20 MG tabletIndicatio ns:Acute on chronic congestive heart failure, unspecified heart failure type (HCC) Take 1 tablet by oral route twice daily 60 tablet 1 Active neomycin-bacitr acin-polymyxin (Neosporin) 5-400-5000 ointmentIndicat ions:Type 2 diabetes mellitus with diabetic peripheral angiopathy and gangrene, with long-term current use of insulin (HCC) Apply topically 2 times daily. 30 g 023 Active melatonin 5 MG tablet TAKE 1 TABLET BY MOUTH AT BEDTIME 30 tablet Active FLUoxetine (PROzac) 20 MG capsule TAKE 1 CAPSULE BY MOUTH EVERY MORNING 30 capsule Active Insulin Disposable Pump (Omnipod 5 G6 [...] EVERY 10 DAYS Active Continuous Blood Gluc Clinical Care Manager (Dexcom G6 receiver stocker) device USE DIRECTED Active carvedilol (Coreg) 6.25 MG tablet TAKE 1 TABLET BY MOUTH TWICE DAILY IN THE MORNING AND IN THE EVENING Active Lantus SoloStar 100 UNIT/ML penIndications: Diabetic ulcer of left midfoot associated with type 2 diabetes mellitus, with fat layer exposed (HCC) INJECT 10 UNITS SUBCUTANEOUSLY AT BEDTIME 15 [...] BY INSULIN PUMP Active Comfort EZ Pen Jolon 31G X 8 MM misc USE DIRECTED [...] nephropathy associated with type 2 diabetes mellitus (HCC) TAKE 2 CAPSULES BY MOUTH THREE TIMES DAILY IN THE MORNING, EVENING AND BEDTIME 180 capsule 025 Active gabapentin (Neurontin) 100 MG capsuleIndicati ons:Diabetic nephropathy associated with type 2 diabetes mellitus (HCC) TAKE 2 CAPSULES BY MOUTH THREE TIMES DAILY IN THE MORNING, EVENING AND BEDTIME 180 capsule 025 2024 Discontinued(R eorder (will not trigger [...] use Humalog pump and follow-up with director dental services Continue Ozempic Follow-up with ophthalmology on 06/26, advised to reschedule appointment with jewelry internship Follow-up with me in 3 to 4 [...] is stable form previous arterial duplex on 2018, she will continue on ASA for now [...] Omnipod use. Continue to follow up with Auto Fleet Manager and change of medications. FU in 3 [...] to increase water intake and fu with HEAD DOFFER in June for pelvic exam She will fu this afternoon with , director dental services Carpal tunnel syndrome of right wrist 01/23/2024 Overview (01/23/2024): NCS at [facility] on 12/2023= Median nerve compression at wrist [...] (05/30/2025 2:29 PM EDT): Follow-up with Dr. Maxwell/HEAD DOFFER, has appointment on July. Assessment & Plan (01/23/2024 12:17 PM EST): Sp LEEP bx 12/[address] Maxwell FU with HEAD DOFFER on 06/2024 Numbness and tingling of right [...] and will order x ray if needed Fitter / Welder appt on Cervical high risk HPV (human [...] wound clinic. Advised to schedule appointment with jewelry internship, Dr. Castro of. Rx for diabetic shoes [...] check finger stick and fu with director dental services. I told pt to call director dental services office to fu on prescription of CGM sensor Continue lantus 50 units + Omnipod insulin pod Pt to continue regular wound care at wound clinic for left DM ulcer continue laser therapy on right eye. She is legally blind in the left eye. order labs and FU with me in 3 months Assessment & Plan (01/23/2024 12:14 PM EST): Significantly improving, fu with [facility] wound clinic I will order supplies to [...] rhinorrhea 11/16/2022 Subacute osteomyelitis of left foot ([facility]) 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 04/22/2021 Proteinuria 04/22/2021 Generalized ischemic myocardial dysfunction 11/23 Stage 3 chronic kidney disease ([facility]) 019 Essential hypertension 08/22/2018 Assessment & Plan (06/29/2024 [...] 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 She will fu on Tuesday with cellar worker. She received glucose load today and BS [...] congratulated her for reaching out to director dental services and compliance w/ medications I gave her information about diabetic diet, she's asking for more 1-1 film producer coaching, so I gave her information about wt reduction programs in the area Continue close fu w/ director dental services insulin pump + Ozempic Pt had intraocular [...] CHF vs other. Informed about the 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 Date Type Department Care Team Description 09/03/[address] [facility] [address] [place] [address] Boo Ashby MD verbal orders 08/29/[address] [facility] [place] [address] Boo Ashby MD Medication Question 08/29/[address] [facility] [address] [place] [address] Boo Ashby MD Transition Of Care (Tcm) (HDF unscheduled ) 08/23/[address] [facility] [place] [address] Boo Ashby MD oct recall 08/22/[address] [facility] [place] [address] Boo Ashby MD Pre-visit Planning (SDOH screening completed on 12/25/2024) 08/22/2025 Telephone [facility] [address] [place] [address] Boo Ashby MD r/s appt 08/30/25 08/20/2025 Telephone [facility] [address] [place] [address] Boo Ashby MD R/S appt 08/30/25 08/13/2025 Results Follow-Up [facility] [address] [place] [address] Xuan Lozada NP Vitamin D, 25-Hydroxy, Total, Immunoassay, TSH W/Reflex to FT4 08/12/2025 Orders Only GENERIC EXTERNAL DATA DEPARTMENT Provider, Generic External Data 08/06/[address] [address] Boo Ashby MD Diabetic nephropathy associated with type 2 diabetes mellitus ([facility]) 07/12/2025 Results Follow-Up [address] [address] Boo Ashby MD BI Mammogram Screening Tomosynthesis Bilateral 07/02/[address] [address] Boo Ashby MD Diabetic nephropathy associated with type 2 diabetes mellitus ([facility]/HCC) 06/12/[address] [address] Boo Ashby MD Referral from Last 3 Months Immunizations Immunization Administration [...] Description 09/12/2025 10:45 AM EDT Office Visit [facility] [address] [place] [address] Boo Ashby MD [address] [place] [phone] 10/25/2025 10:45 AM EST Office Visit [address] [address] Boo Ashby MD [address] [place] [address] Health Maintenance Due Date Last Done Comments [...] Tobacco Screening 05/30/2026 05/30/2025 Mammogram 06/28/2026 06/28/2025, 08/0 06/2025, 06/28/2025, Additional history exists DTaP/Tdap/Td Vaccines (2 [...] Associated Diagnosis Comments GLUCOSE, WHOLE BLOOD Routine 08/12/2025 2:37 PM EDT BI MAMMOGRAM SCREENING TOMOSYNTHESIS BILATERAL Routine 06/28/2025 Screening mammogram for breast cancer POCT GLYCATED HEMOGLOBIN, TOTAL Routine 05/30/2025 11:09 AM EDT Diabetes mellitus type 2 with peripheral artery disease (CMS/HCC) AMB REFERRAL TO PODIATRY Routine 04/24/2025 Diabetes mellitus type 2 with peripheral artery disease (CMS/HCC) Diabetic nephropathy associated with type 2 diabetes mellitus ([facility]) LIPID PANEL, STANDARD Routine 06/25/2024 10:51 AM EDT HPV GENOTYPES 16,18/45 Routine 11:10 AM EDT HM PAP/HPV Routine 03/15/2023 from Last 3 Months or Most Recently Relevant to Health Maintenance Results * (ABNORMAL) Glucose, Whole Blood (08/12/2025 2:37 PM EDT) Glucose, Whole Blood 282(H) 60 - 115 mg/dL [facility] Comment:METER #: [id number] Testing performed in the Endocrinology Department [address] , [address], [place]. 08/12/2025 2:37 PM EDT 08/12/2025 2:42 PM EDT us Generic External Data Provider LAB BLOOD ORDERAB LES Final Result [facility] [address] [place] [address] [phone] * BI Mammogram Screening Tomosynthesis Bilateral (06/28/2025) Anatomical Region Laterality Modality Breast Bilateral Mammography Boo Ashby MD IMG BI PROCEDURES Final Result * (ABNORMAL) POCT HGB A1C (05/30/2025 11:09 AM EDT) Hemoglobin A1C 7.2(A) 4.0 - 5.7 % QC Media Lot # [id number] Lot# Expiration Date ,[id number] Blood 05/30/2025 11:0 9 AM EDT Boo Ashby MD POINT OF CARE TEST ENTER /EDIT ORDERABLES Final Result * Referral to Podiatry (04/24/2025) Boo Ashby MD OUTPATIENT REFERRAL ORDE RABLES Final Result * (ABNORMAL) Lipid Panel, Standard (06/25/2024 10:51 AM EDT) Triglycerides 186(H) <150 mg/dL [facility] Comment:Desirable Triglyceri de: less than 150 mg/dLBorderline High Triglyceride 150-199 mg/dLHigh Triglyceride: 200-499 mg/dLVery High Triglyceride: greater than or equal to 5OO mg/dL Cholesterol 246(H) <200 mg/dL [facility] Comment:Desirable Cholestero l: less than 200 mg/dLBorderline High Cholesterol: 200-239 mg/dLHigh Cholesterol: greater than 239 mg/dL LDL Cholesterol Calculated 163(H) <100 mg/dL [facility] Comment:Desirable LDL: less than 100 mg/dLNear Optimal/Above Optimal LDL: 110- 129 mg/dLBorderline High LDL: 130-159 mg/dLHigh LDL: 160-189 mg/dLVery High LDL: greater than or equal to 190 mg/dL HDL Cholesterol 46 >40 mg/dL [facility] Comment:Desirable HDL: great er than 40 mg/dL Note: This HDL assay may give artificially low results in patients with liver disease. 06/25/2024 10:5 1 AM EDT 06/25/2024 10:51 AM EDT Generic External Data Provider LAB BLOOD ORDERAB LES Final Result [facility] [address] [place] [phone] * (ABNORMAL) HPV Genotypes 16,18/45 (03/15/2023 11:10 AM EDT) HPV 16 RNA NOT DETECTED NOT DETECTED [employer] [place] [employer] HPV 18/45 RNA DETECTED(A) NOT DETECTED [employer] [place] [employer] Comment: Methodology: Intern Retail Mediated Amplification Cervical sources are required for HPV testing. If a vaginal source from a patient who has had a total hysterectomy with removal of cervix was submitted, please contact the testing laboratory for alternative testing options. 03/15/2023 11:1 0 AM EDT 03/16/2023 6:23 AM EDT Boo Ashby MD LAB CYTOLOGY ORDERABLES Final Result Performing Organization Address City/[facility]/ZIP Co de Phone Number [facility] [address], [place] [address] [employer] [facility] [address] [place] [address] * Hm Pap Smear (03/15/2023) HM Pap smear NIL HPV+ us Historical Provider HEALTH MAINTENANCE Final Result from Last 3 Months or Most Recently Relevant to Health Maintenance Insurance [facility] C3 Care Teams Business Line Controller Relationship Specialty Start Date End Date Boo Ashby MD [address] [place] [phone] PCP - General Family Medicine 10/26/19 Hilda Cardoso Mammography TechnicianMechanic Assistant 04/18/25 Hilda Cardoso Medical RepresentativeMechanic Assistant 05/22/25 [facility] 08/29/25
--- OUTSIDE RECORDS SUMMARY | 2025-09-04 17:22 | XMS_ITS | Encounter Summary ---
Author Organization [employer] Address [address] [facility] 7t [place] [address] Care Team Providers Care Refrigerating Engineer Head Name Role Phone Yolie Desir MD Primary Care Provider + Reason for Visit * Reason Comments Med Refill Encounter Details Date Type Department Care Team ([facility] st Contact Info) Description 12/22/2023 Refill [facility] [address] [place], [place] [phone] [facility] [address] [place] [address] Acute on chronic congestive heart failure, unspecified [...] Description 09/12/2025 10:45 AM EDT Office Visit [facility] [address] [place] [address] Yolie Desir MD [address] [place] [address] 10/25/2025 10:45 AM EST Office Visit [address] [address] Yolie Desir MD [address] [place] [address] documented as of this encounter Visit Diagnoses Diagnosis Acute on chronic congestive heart failure, unspecified heart failure type (HCC) documented in this encounter Additional Health Concerns Assessment Noted Time PHQ-9 Depression Total Score: 8 02/11/20 23 9:24 AM EDT documented as of this encounter Care Teams Refrigerating Engineer Head Relationship Specialty Start Date End Date Yolie Desir MD [address] [place] [address] PCP - General Family Medicine 10/26/19 Hilda Cardoso Logistics System EngineerNonprofit Manager 04/18/25 Hilda Cardoso Blasting Coal MinerNonprofit Manager 05/22/25 [facility] 08/29/25 documented as of this encounter
--- OUTSIDE RECORDS SUMMARY | 2025-09-04 17:22 | XMS_ITS | Clinical Summary ---
Author Organization [facility] Address [address] [facility] [address] [place] [phone] Phone Care Team Providers Care Die Cast Technician Name Role Phone Yolie Desir MD [...] (#1) 2025 10/26/2019 COVID-19 VACCINE (1 - 2024-2 6 season) 2025 RSV VACCINE (1 - 1-dose 75+ series) 2048 HEPATITIS A VACCINES Aged Out No long [...] topic Medical Devices Not on file [place] [address] [place] [address] [place] [address] [place] [address] [place] [id number] [facility] C3 ACO [facility] C3 ACO [facility] [address] [address] [place] [address] [place] [address] [place] [address] [place] [address] C3 ACO [facility] C3 ACO Care Teams Die Cast Technician Relationship Specialty Start Date End Date Yolie Desir MD [address] [facility] [address] [place] [address] PCP - General Internal Medicine 03/31/21 Additional Source Comments The information contained in this document represents components of the legal health record. It is not the complete legal health record.[facility]
--- OUTSIDE RECORDS SUMMARY | 2025-09-04 17:22 | XMS_ITS | Encounter Summary ---
Author Organization [employer] Address [address] [facility] 7t [place] [address] Care Team Providers Care Server Engineer Name Role Phone Yolie Desir MD Primary Care Provider + Encounter Details Date Type Department Care Team (Latest Contact Info) Description 07/12/2025 Results Follow-Up [facility] [address] [place], [place] [phone] Yolie Desir MD [address] [place] [address] BI Mammogram Screening Tomosynthesis Bilateral Social History [...] the past 12 months, has t he [employer], gas, oil or water company threatened to [...] Description 09/12/2025 10:45 AM EDT Office Visit [facility] [address] [place] [address] Yolie Desir MD [address] [place] [address] 10/25/2025 10:45 AM EST Office Visit [facility] [address] [place] [address] Yolie Desir MD [address] [place] [address] documented as of this encounter Visit Diagnoses Not on filedocumented in this encounter Additional Health Concerns Assessment Noted Time PHQ-9 Depression Total Score: 6 05/30/20 25 10:56 AM EDT documented as of this encounter Care Teams Server Engineer Relationship Specialty Start Date End Date Yolie Desir MD [address] [place] [address] [place] [address] PCP - General Family Medicine 10/26/19 Hilda Cardoso Clinical Informatics ManagerExchange Specialist 04/18/25 Hilda Cardoso Insurance Application InvestigatorExchange Specialist 05/22/25 [facility] 08/29/25 documented as of this encounter
--- OUTSIDE RECORDS SUMMARY | 2025-09-04 17:22 | XMS_ITS | Encounter Summary ---
Author Organization [employer] Address [address] [facility] [address] 7t [place] [address] Care Team Providers Care Cane Flume Watchman Name Role Phone Yolie Desir MD Primary Care Provider + Encounter Details Date Type Department Care Team ([facility] st Contact Info) Description 08/13/2025 Results Follow-Up [facility] [address] [place], [place] [phone] Xuan Lozada NP [address] [place] [address] Vitamin D, 25-Hydroxy, Total, Immunoassay, TSH W/Reflex to FT4 Social History Tobacco Use Types Packs/Day Years [...] 10:45 AM EDT Office Visit [facility] [address] [place] [phone] Yolie Desir MD [address] [place] [address] 10/25/2025 10:45 AM EST Office Visit [address] [address] Yolie Desir MD [address] [place] [address] documented as of this encounter Visit Diagnoses Not on filedocumented in this encounter Additional Health Concerns Assessment Noted Time PHQ-9 Depression Total Score: 6 05/30/20 25 10:56 AM EDT documented as of this encounter Care Teams Cane Flume Watchman Relationship Specialty Start Date End Date Yolie Desir MD [address] [place] [address] PCP - General Family Medicine 10/26/19 Hilda Cardoso Slusher OperatorPlasterer Helper 04/18/25 Hilda Cardoso Lpn RnPlasterer Helper 05/22/25 [facility] 08/29/25 documented as of this encounter
--- OUTSIDE RECORDS SUMMARY | 2025-09-04 17:22 | XMS_ITS | Patient Health Record ---
Author Organization [facility] Address [address] [place] [address] Care Team Providers Care Gantry Crane Operator Name Role Phone Eagle (DO NOT USE), [facility] Primary Care Provi jaison Rick Estrada [...] GM As directed Orally Over the specified time.; Duration: 1 day(s) Active Digoxin 125 MCG 1 [...] Problem Status W/U Status Risk Notes Problem Epigastric pain (99100765) Epigastric pain (R10.13) Active confirmed Problem Gastroesophageal reflux disease (795517170) Gastroesophageal reflux disease, esophagitis presence not specified (K21.9) Active confirmed Problem Diarrhea (84920744) Diarrhea, unspecified type (R19.7) Active confirmed Plan Of Treatment Future Test Test Name Order Date UPPER GI ENDOSCOPY 09/09/2017 COLONOSCOPY 09/09/2017 Insurance Providers Payer Name Payer Address Payer Phone Subscriber Number Group Number Insured Name Patient Relationship to Insured Coverage Start Date Coverage End Date MEDICAID [facility] [address] [place] [phone] [id number] MONI YEE Self - patient is the insured Medical (General) History Medical History History ICD Code diabetes mellitus coronary artery disease with history of SD 2015 kidney disease hypertension sleep apnea asthma systolic congestive heart failure depression neuropathy Surgical History Surgery Date(Month/Year) corneal transplant-right eye 2014 left hand surgery 2014 coronary artery bypass graft 01/2016, PCI with JOSE of mid LAD and ramus 03/06 after occlusion of GUNN and SVG graft 2015 tubal ligation cholecystectomy uterine polypectomy
--- OUTSIDE RECORDS SUMMARY | 2025-09-04 17:22 | XMS_ITS | Encounter Summary ---
Author Organization [employer] Address [address] [place] [address] 7t [place] [address] Care Team Providers Care Seasonal Greenery Bundler Name Role Phone Yolie Desir MD Primary Care Provider + Encounter Details Date Type Department Care Team (Late st Contact Info) Description 01/25/2023 Abstract [facility] [address] [place] [address] [phone] Yolie Desir MD [address] [place] [address] [phone] Social History Tobacco Use Types Packs/Day Years [...] Description 09/12/2025 10:45 AM EDT Office Visit [facility] [address] [place] [address] [phone] Yolie Desir MD [address] [place] [address] [phone] 10/25/2025 10:45 AM EST Office Visit [address] [phone] Yolie Desir MD [address] [place] [address] documented as of this encounter Visit Diagnoses Not on filedocumented in this encounter Care Teams Seasonal Greenery Bundler Relationship Specialty Start Date End Date Yolie Desir MD [address] [place], [place] [phone] PCP - General Family Medicine 10/26/19 Hilda Cardoso Drying Oven AttendantEditor Trade Journal 04/18/25 Hilda Cardoso Investigative ShopperEditor Trade Journal 05/22/25 [facility] 08/29/25 documented as of this encounter
--- OUTSIDE RECORDS SUMMARY | 2025-09-04 17:22 | XMS_ITS | Encounter Summary ---
Author Organization [employer] Address [address] [facility] 7t [place] [address] Care Team Providers Care Gas Station Operator Name Role Phone Yolie Desir MD Primary Care Provider + Reason for Visit * Reason Comments Med Refill Encounter Details Date Type Department Care Team (Late st Contact Info) Description 11/29/2023 Refill [facility] [address] [place], [place] [phone] Axel Graf MD [address] [place] [address] Diabetic nephropathy associated with type 2 diabetes mellitus ([facility]) Social History Tobacco Use Types Packs/Day [...] Description 09/12/2025 10:45 AM EDT Office Visit [facility] [address] [place] [address] Yolie Desir MD [address] [place] [address] 10/25/2025 10:45 AM EST Office Visit [address] [address] Yolie Desir MD [address] [place] [address] documented as of this encounter Visit Diagnoses Diagnosis Diabetic nephropathy associated with type 2 diabetes mellitus (HCC) documented in this encounter Additional Health Concerns Assessment Noted Time PHQ-9 Depression Total Score: 8 02/11/20 23 9:24 AM EDT documented as of this encounter Care Teams Gas Station Operator Relationship Specialty Start Date End Date Yolie Desir MD [address] [place] [phone] PCP - General Family Medicine 10/26/19 Hilda Cardoso Guide DelegateDip Lube Operator 04/18/25 Hilda Cardoso Provider Relations ManagerDip Lube Operator 05/22/25 [facility] 08/29/25 documented as of this encounter
--- OUTSIDE RECORDS SUMMARY | 2025-09-04 17:22 | XMS_ITS | Encounter Summary ---
Author Organization [employer] Address [address] 7[address] [place] [address] Care Team Providers Care Banquet Pilot Name Role Phone Yolie Desir MD Primary Care Provider + Reason for Visit * Reason Comments Med Refill Encounter Details Date Type Department Care Team ([facility] st Contact Info) Description 11/14/2023 Refill [facility] [address] [place] [address] [phone] Preet Blackwood MD [address] [place], [place] [phone] Social History Tobacco Use Types Packs/Day Years [...] Description 09/12/2025 10:45 AM EDT Office Visit [facility] [address] [place] [address] [phone] Yolie Desir MD [address] [place] [address] [phone] 10/25/2025 10:45 AM EST Office Visit [facility] [address] [place] [address] [phone] Yolie Desir MD [address] [place] [address] [phone] documented as of this encounter Visit Diagnoses Not on filedocumented in this encounter Additional Health Concerns Assessment Noted Time PHQ-9 Depression Total Score: 8 02/11/20 23 9:24 AM EDT documented as of this encounter Care Teams Banquet Pilot Relationship Specialty Start Date End Date Yolie Desir MD [address] [place] [address] [phone] PCP - General Family Medicine 10/26/19 Hilda Cardoso Tennis Net MakerOutpatient Coordinator 04/18/25 Hilda Cardoso Manager SpecialtyOutpatient Coordinator 05/22/25 [facility] 08/29/25 documented as of this encounter
--- OUTSIDE RECORDS SUMMARY | 2025-09-04 17:22 | XMS_ITS | Encounter Summary ---
Author Organization [employer] Address [address] 7[address] [place] [address] Care Team Providers Care Job Tracer Name Role Phone Yolie Desir MD Primary Care Provider + Reason for Visit * Reason Comments Med Refill Encounter Details Date Type Department Care Team (Late st Contact Info) Description 12/29/2023 Refill [facility] [address] [place], [place] [phone] Yolie Desir MD 230 [place], [place] [phone] Diabetic nephropathy associated with type 2 diabetes [...] Description 09/12/2025 10:45 AM EDT Office Visit [facility] [address] [place] [phone] Yolie Desir MD [address] [place] [phone] 10/25/2025 10:45 AM EST Office Visit [address] [phone] Yolie Desir MD [address] [place] [address] [phone] documented as of this encounter Visit Diagnoses Diagnosis Diabetic nephropathy associated with type 2 diabetes mellitus (HCC) documented in this encounter Additional Health Concerns Assessment Noted Time PHQ-9 Depression Total Score: 8 02/11/20 23 9:24 AM EDT documented as of this encounter Care Teams Job Tracer Relationship Specialty Start Date End Date Yolie Desir MD [address] [place] [address] [phone] PCP - General Family Medicine 10/26/19 Hilda Cardoso MoonerC D Reactor Operator 04/18/25 Hilda Cardoso Armed Security OfficerC D Reactor Operator 05/22/25 [facility] 08/29/25 documented as of this encounter
--- OUTSIDE RECORDS SUMMARY | 2025-09-04 17:22 | XMS_ITS | Encounter Summary ---
Author Organization [employer] Address [address] [facility] 7t [place] [address] Care Team Providers Care Linux Administrator Name Role Phone Yolie Desir MD Primary Care Provider + Reason for Visit * Reason Comments Med Refill Encounter Details Date Type Department Care Team (Late st Contact Info) Description 06/15/2024 Refill [facility] 230 [place], [place] [phone] Yolie Desir MD 230 [place], [place] [phone] Diabetic nephropathy associated with type 2 diabetes mellitus ([facility]) Social History Tobacco Use Types Packs/Day [...] your housing situation today? I have felicity ijn 03/21/[address] you li [...] Description 09/12/2025 10:45 AM EDT Office Visit [facility] [address] [place] [phone] Yolie Desir MD [address] [place] [phone] 10/25/2025 10:45 AM EST Office Visit [facility] [address] [place] [phone] Yolie Desir MD [address] [place] [address] [phone] documented as of this encounter Visit Diagnoses Diagnosis Diabetic nephropathy associated with type 2 diabetes mellitus (HCC) documented in this encounter Additional Health Concerns Assessment Noted Time PHQ-9 Depression Total Score: 8 02/11/20 23 9:24 AM EDT documented as of this encounter Care Teams Linux Administrator Relationship Specialty Start Date End Date Yolie Desir MD [address] [place] [phone] PCP - General Family Medicine 10/26/19 Hilda Cardoso Natural Resources Faculty MemberSet Up Operator Tool 04/18/25 Hilda Cardoso HangerSet Up Operator Tool 05/22/25 [facility] 08/29/25 documented as of this encounter
--- OUTSIDE RECORDS SUMMARY | 2025-09-04 17:22 | XMS_ITS | Encounter Summary ---
Author Organization [employer] [facility] Address [address] [place] [address] 7t [place] [address] Care Team Providers Care Child Development Assistant Name Role Phone Yolie Desir MD Primary Care Provider + Reason for Visit * Reason Onset Date Comments Prior Authorization 10/28/2022 Encounter Details Date Type Department Care Team (Late st Contact Info) Description 10/28/2022 Telephone [facility] 230 [place], [place] [phone] Yolie Desir MD 230 [place], [place] [phone] Prior Authorization Social History Tobacco Use Types [...] 10:45 AM EDT Office Visit [facility] [address] [place] [address] [phone] Yolie Desir MD [address] [place] [address] [phone] 10/25/2025 10:45 AM EST Office Visit [address] [phone] Yolie Desir MD [address] [place] [address] [phone] documented as of this encounter Visit Diagnoses Not on filedocumented in this encounter Care Teams Child Development Assistant Relationship Specialty Start Date End Date Yolie Desir MD [address] [place] [address] [phone] PCP - General Family Medicine 10/26/19 Hilda Cardoso Manager Primary CareBarrel Drum Cutter 04/18/25 Hilda Cardoso Shoe MakerBarrel Drum Cutter 05/22/25 [facility] 08/29/25 documented as of this encounter
--- OUTSIDE RECORDS SUMMARY | 2025-09-04 17:22 | XMS_ITS | Encounter Summary ---
Author Organization [employer] Address [address] [place] [address] 7t [place] [address] Care Team Providers Care Delinquent Tax Collector Assistant Name Role Phone Yolie Desir MD Primary Care Provider + Encounter Details Date Type Department Care Team (Late st Contact Info) Description 01/25/2023 Abstract [facility] [address] [place] [address] [phone] Yolie Desir MD [address] [place] [address] [phone] Social History Tobacco Use Types Packs/Day Years [...] Description 09/12/2025 10:45 AM EDT Office Visit [facility] [address] [place] [address] [phone] Yolie Desir MD [address] [place] [address] [phone] 10/25/2025 10:45 AM EST Office Visit [address] [phone] Yolie Desir MD 230 [place] [address] documented as of this encounter Visit Diagnoses Not on filedocumented in this encounter Care Teams Delinquent Tax Collector Assistant Relationship Specialty Start Date End Date Yolie Desir MD 230 [place], [place] [phone] PCP - General Family Medicine 10/26/19 Hilda Cardoso Brass SorterAutomotive Glazier 04/18/25 Hilda Cardoso Heating And Air Conditioning MechanicAutomotive Glazier 05/22/25 [facility] 08/29/25 documented as of this encounter
--- OUTSIDE RECORDS SUMMARY | 2025-09-04 17:22 | XMS_ITS | Encounter Summary ---
Author Organization [employer] Address [address] [facility] 7t [place] [address] Care Team Providers Care Ornamental Metal Worker Apprentice Name Role Phone Yolie Desir MD Primary Care Provider + Reason for Visit * Reason Comments Med Refill Encounter Details Date Type Department Care Team ([facility] st Contact Info) Description 01/02/2024 Refill [facility] 230 [place], [place] [phone] [facility] 230 [place] [address] Acute on chronic congestive heart failure, unspecified [...] Description 09/12/2025 10:45 AM EDT Office Visit [facility] [address] [place] [phone] Yolie Desir MD [address] [place] [phone] 10/25/2025 10:45 AM EST Office Visit [address] [phone] Yolie Desir MD [address] [place] [address] [phone] documented as of this encounter Visit Diagnoses Diagnosis Acute on chronic congestive heart failure, unspecified heart failure type (HCC) documented in this encounter Additional Health Concerns Assessment Noted Time PHQ-9 Depression Total Score: 8 02/11/20 23 9:24 AM EDT documented as of this encounter Care Teams Ornamental Metal Worker Apprentice Relationship Specialty Start Date End Date Yolie Desir MD [address] [place] [phone] PCP - General Family Medicine 10/26/19 Hilda Cardoso Adjunct Nursing FacultyChemical Engineering Technician 04/18/25 Hilda Cardoso Video Surveillance TechnicianChemical Engineering Technician 05/22/25 [facility] 08/29/25 documented as of this encounter
== END 2025-09-04 14:26 | disposition home or self-care (01) ==
LOC: HO.ENCR 13:35
PROVIDERS: PCP Internal Medicine; Visit Provider Registered Nurse Diabetes Educator
DX: E11.29 Type 2 diabetes mellitus with other diabetic kidney complication (principal)

== ENCOUNTER → 2025-09-04 13:34 | Outpatient (BNVA) | payer MEDICAID, SELFPAY | PROVIDERS: PCP Internal Medicine; Visit Provider Registered Nurse Diabetes Educator | DX: Z46.81 Encounter for fitting and adjustment of insulin pump (principal); E11.29 Type 2 diabetes mellitus with other diabetic kidney complication; Z79.4 Long term (current) use of insulin | CPT/HCPCS: 99211 ==

== ENCOUNTER 2025-09-11 10:20 | Outpatient (AMB) | payer MEDICAID, SELFPAY ==
--- NOTE | 2025-09-11 10:34 | MHC.AMNUTRGE ---
VS Expanded 09/11/25 11:12 09/12/25 13:05 Height 5 ft 7 in 5 ft 7 in Weight 193 lb 9.054 oz 193 lb BMI 30.3 30.2 Intake Visit Reasons: T2DM Allergies sulfamethoxazole (From BACTRIM) Allergy (Severe, Verified 08/12/25 14:30) FACIAL SWELLING trimethoprim (From BACTRIM) Allergy (Severe, Verified 08/12/25 14:30) FACIAL SWELLING levofloxacin (From LEVAQUIN) Allergy (Intermediate, Verified 08/12/25 14:30) REDNESS, SWELLING ITCHINESS AT IV SITE Nutrition Presentation Details: Pt presents for MNT f/u for t2DM Pt brings a list of foods she consumes with portion sizes to review carbs Reports choosing low sodium food choices and reducing on salt intake , monitoring wt at home as per doctor's order Typical meal: cereal cheerios with almond milk lunch: wrap (carrot tortilla home made) with eggs scrambled or ham/cheese or chicken salad and a fruit , water Dinner: chicken in air fryer and cup of cooked rice with veggies and yogurt and gatorate zero or vit water reports choosing lean protein (fish/eggs, lean protein using air fryer BS Monitoring Most Recent Diabetes Results: Creatinine, (0.5-1.4) 1.01 mg/dL 07/29/25 BUN, (9-16) 22 mg/dL H 07/29/25 Sodium, (135-145) 135 mmol/L 07/29/25 Potassium, (3.3-5.1) 3.5 mmol/L 07/29/25 Chloride, (96-108) 96 mmol/L 07/29/25 Carbon Dioxide, (22-29) 28 mmol/L 07/29/25 FDX-Dsxasum-Ia.Jeor Equation Height: 5 ft 7 in Weight: 193 lb Resting Metabolic Rate: 1521.34 Calculated Activity Level: Sedentary Calories Needed to Maintain Weight: 1825.61 [facility] Medical History (Updated 04/12/25 @ 15:30 by Iman Joy NP) Hyperlipidemia Asthma DEVYN (obstructive sleep apnea) Osteomyelitis Wound of left foot DM2 (diabetes mellitus, type 2) Hyperlipidemia LDL goal <100 CAD (coronary artery disease) Retinopathy Anxiety Depression Type 2 diabetes mellitus with hyperglycemia, with long-term current use of insulin Proteinuria Type 2 diabetes mellitus with other diabetic kidney complication Essential hypertension Obesity due to excess calories Type 2 diabetes mellitus with diabetic polyneuropathy Surgical History Hx of breast biopsy Hx of section Hx of tubal ligation Hx of coronary artery bypass surgery Family History Maternal Grandmother Diabetes Cervical cancer Brother Diabetes Sister Breast cancer Social History Household Members: Family Household Members Other:: 1 Housing: Apartment Alcohol intake: never Patient Tobacco Use Status: Never used Tobacco Second Hand Smoke Exposure: No service: No Current occupational status: unemployed Female Reproductive History Menstrual Age of Menarche: 11 Assessment & Plan Assessment & Plan (1) Diabetic nephropathy: Code(s): E11.21 - Type 2 diabetes mellitus with diabetic nephropathy Category: Medical Qualifiers: Diabetes mellitus type: type 2 Qualified Code(s): E11.21 - Type 2 diabetes mellitus with diabetic nephropathy Plan: Wt: 92Kg ( 12/15 ), 88 kg (09/14) Est kcal needs as per MSJ: 1800 (40% carb, 30% protein/fat) Est fluid needs as per 25-30 ml/d: 2600 Est prot per day as per 1 g/kg bw: 80-90 Recommend fiber intake : 8-10 g per day and gradually increase to 25-28 g per day for women and 35-38 g for men or as tolerated Na< 2300 mg/dl or less Recommend sodium intake per day : less than 2300 mg Educated patient on: ( R = reviewed V = verbalizes understanding N/R = needs review N/A = not applicable Food sources of carbohydrate, adequate serving sizes and its role in various health conditions: R V Differences between complex carbohydrates a simple carbohydrates, role of fiber in diet: R V Lean protein sources of foods: R V Differences between types of fats and role in diet (mono on saturated fat fatty acids, saturated fatty acids, trans fats): R Food sources of sodium in salt and healthy modifications for heart health in kidney health: R Vitamins and minerals: R V Healthy plate method concept: R V Physical activity: Benefits a precaution: R V Hypoglycemia protocol (rule of 15): R V Dietary prevention of Hyperglycemia: R V Patient Instructions: Resume measuring food portion sizes for better carb estimate, working at reducing total carbohydrate at meal to less than 60 g See list of foods with portion sizes and carb amount , see list of food combinations with carb and portion sizes as reference Coding Level of Care Code Nutr Indiv Subseq (16319) Diagnoses Diabetic nephropathy associated with type 2 diabetes mellitus E11.21 Diabetes mellitus type: type 2 Time Spent (min) 30
[2025-09-11 11:12] VITALS: BMI 30.3
[2025-09-17 13:49] VITALS: BMI 30.2
== END 2025-09-11 11:19 | disposition home or self-care (01) ==
LOC: HO.ENCR 10:20
PROVIDERS: PCP Internal Medicine; Visit Provider Dietitian, Registered
DX: E11.21 Type 2 diabetes mellitus with diabetic nephropathy (principal)

== ENCOUNTER → 2025-09-11 10:20 | Outpatient (BNVA) | payer MEDICAID, SELFPAY | PROVIDERS: PCP Internal Medicine; Visit Provider Dietitian, Registered | DX: E11.21 Type 2 diabetes mellitus with diabetic nephropathy (principal) | CPT/HCPCS: 97803 ==

== ENCOUNTER 2025-10-03 14:51 | Outpatient (AMB) | payer MEDICAID, SELFPAY ==
[2025-10-03 15:02] VITALS: BP 138/70; PULSE 74; O2SAT 99; BMI 29.7
--- NOTE | 2025-10-03 15:02 | MHC.OFFVIS ---
Vital Signs 10/03/25 15:02 Height 5 ft 7 in Weight 189 lb 9.561 oz BMI 29.7 BP 138/70 Blood Pressure Location Rt brachial Position Sitting Pulse 74 Pulse Source Pulse Oximeter Pulse Oximetry (%) 99 Oxygen Delivery Method Room Air Intake Visit Reasons: T2DM Intake Note: Patient present today to follow up on Type 2 Diabetes Mellitus. Last Diabetic Eye exam: 09/2024, is receiving eye injections Last Podiatry Visit: Dr. Gonzalez, 08/16/2025 ? Random Glucose: 76 mg/dl Hgb A1C: 10.6% 08/12/2025 Accompanied by: Daughter Allergies sulfamethoxazole (From BACTRIM) Allergy (Severe, Verified 10/03/25 15:04) FACIAL SWELLING trimethoprim (From BACTRIM) Allergy (Severe, Verified 10/03/25 15:04) FACIAL SWELLING levofloxacin (From LEVAQUIN) Allergy (Intermediate, Verified 10/03/25 15:04) REDNESS, SWELLING ITCHINESS AT IV SITE Medication List - Last Reconciled 10/03/25 by Horace Orozco MD acetone (urine) test (Ketone Urine Test strips) As directed aspirin (Adult Aspirin Regimen) 81 mg PO DAILY@1700 atorvastatin (Lipitor) 20 mg PO BEDTIME blood sugar diagnostic (FreeStyle Lite Strips) USE DIRECTED TO TEST BLOOD SUGAR FOUR TIMES DAILY blood-glucose meter (FreeStyle Lite Meter kit) As directed blood-glucose sensor (Dexcom G6 Sensor device) USE DIRECTED. CHANGE EVERY 10 DAYS Held on 04/12/25. Instructions: Doctor's Order blood-glucose transmitter (Dexcom G6 Transmitter device) once every 3 months Held on 04/12/25. Instructions: Doctor's Order carvedilol 6.25 mg PO BID clopidogrel 75 mg PO DAILY@0730 Dexcom G7 Sensor (blood-glucose sensor) As directed every 10 days NS digoxin 125 mcg PO MOWEFR@0730 epinephrine IM DIRECTED ezetimibe 10 mg PO QAM 90 days ferrous gluconate 324 mg PO DAILY@1200,1700 fluoxetine 20 mg PO DAILY@0730 fluticasone propion-salmeterol 250-50 mcg/dose (Advair Diskus) 1 ea inhalation fluticasone propionate 50 mcg/actuation 1 - 2 sprays intranasal DAILY PRN gabapentin 200 mg PO TID insulin aspart U-100 15 units (0.15 mL) subcut TID insulin glargine (Lantus Solostar U-100 Insulin) 42 units once daily for pump failure subcutaneously daily; 30 days insulin lispro Inject up to 100 units via insulin pump subcutaneously daily; insulin lispro Infuse up to 120 units via insulin pump daily subcutaneously daily; insulin pump cart,automated,BT As directed changed every 72 hours isosorbide mononitrate ER 30 mg PO DAILY@0730 lancets (FreeStyle Lancets) As directed tests 4 X/day lancets (TRUEplus Lancets) USE DIRECTED TO TEST BLOOD SUGAR FOUR TIMES DAILY cvmeztlb-vysbziatyAc-voruecqyS 3.5mg-400 unit- 5,000 unit/gram (Neosporin (iyf-wuv-jbyzi)) 1 appl topical DAILY 14 days Omnipod 5 G6-G7 Pods (Gen 5) (insulin pump cart,auto,BT,G6/7) As directed NS pen needle, diabetic (Easy Touch) USE FOUR TIMES DAILY prednisone 40 mg (2 x 20 mg) PO DAILY tirzepatide (Mounjaro) 2.5 mg (0.5 mL) subcut QWEEK torsemide 60 mg PO BID HPI Comments Details: Patient is 50 yo female with DM type 2 diagnosed in approximately 1987, here for follow up management of diabetes. Currently on an Omnipod 5 pump. Takes Mounjaro 2.5 mg Q weekly Dexcom average glucose: 188 14 day continuous glucose monitor report reviewed Glucose Managment indicator 8.7 % Days with CGM data 72 % TIme in ranges: 13 % very high (above 250) 36 % high ?(181-250) 51 % in range ?(70-180] 0 % low (69-55) 0 % ?very low (below 54) [ ] Standard Deviation Interpretation She has an automated mode 66% of the time. She is using 58.7 units of insulin per day with 59% basal and 41% bolus. Carb scented per day is 78.5 No hypoglycemia Basal rate from 00:00 to 07:00 are 0.9 units/hour atfrom 7 a.m. to 00:00 1.3 units/hour Insulin: Carbohydrate is 1:3.5 Has retinopathy: Last eye examination last mo had injection Has neuropathy. Symptoms: + numbness and tingling in legs. She is on gabapentin. Has Nephropathy: 07/19/24 microalbumin 184 02/18/25 eGFR>60 last seen by Nephrology in July at which time Noel inhibitor dose was increased. 04/11/25 eGFR 59 Has CAD not on statin. No prior issues with statins per patient. Takes Zetia last LDL 155 Hypoglycemia: rare hypoglycemia Hyperglycemia: denies polyuria, nocturia 2-3x/night Had foot operation after infection . Follows with podiatry , wound care and surgery [facility] Medical History (Updated 04/12/25 @ 15:30 by Iman Joy NP) Hyperlipidemia Asthma DEVYN (obstructive sleep apnea) Osteomyelitis Wound of left foot DM2 (diabetes mellitus, type 2) Hyperlipidemia LDL goal <100 CAD (coronary artery disease) Retinopathy Anxiety Depression Type 2 diabetes mellitus with hyperglycemia, with long-term current use of insulin Proteinuria Type 2 diabetes mellitus with other diabetic kidney complication Essential hypertension Obesity due to excess calories Type 2 diabetes mellitus with diabetic polyneuropathy Surgical History (Updated 10/03/25 @ 15:07 by Zahra Dobson CMA) S/P foot surgery, left Hx of breast biopsy Hx of section Hx of tubal ligation Hx of coronary artery bypass surgery Family History Maternal Grandmother Diabetes Cervical cancer Brother Diabetes Sister Breast cancer Social History Household Members: Family Household Members Other:: 1 Housing: Apartment Alcohol intake: never Patient Tobacco Use Status: Never used Tobacco Second Hand Smoke Exposure: No service: No Current occupational status: unemployed Female Reproductive History Menstrual Age of Menarche: 11 Physical Exam Vital Signs: Last Vital Signs Pulse 74 10/03/25 15:02 BP 138/70 10/03/25 15:02 Pulse Ox 99 10/03/25 15:02 Oxygen Delivery Method Room Air 10/03/25 15:02 BMI result Body Mass Index 29.7 Absence of Cushingoid features. Absence of acromegalic features. Neck exam reveals nl size thyroid about 15 gms. No thyroid nodules palpable. No carotid bruits present. Lungs CTA. Heart S1 S2, Reg R/R. No M/R/ G. Skin exam reveals absence of vitiligo or acanthosis nigricans. Abdominal exam reveals Soft NT/ND with NA BS. No organomegaly present. Neck Other: . Extrem Other: Visual exam of foot performed.L foot ulceration bandaged followed by wound clinic . R foot has calus No onchomycosis, no callouses.Pulses 2 + distally Sensation intact to monofilament exam. Vibratory sensation sensed is decreased with 128 Hz tuning fork Results Reviewed Results Reviewed: Laboratory Last Values Glucose (Clinic) 76 mg/dL (60-115) 10/03/25 15:13 Assessment & Plan Assessment & Plan (1) Type 2 diabetes mellitus with other diabetic kidney complication: Code(s): E11.29 - Type 2 diabetes mellitus with other diabetic kidney complication Category: Medical Plan: This is a 48-year-old female with a history of type 2 diabetes with Omnipod 5 insulin pump and Mounjaro with fair improved glycemic control and known microvascular and macrovascular complications namely CKD, neuropathy, retinopathy and CAD. Plan is stressed to the patient to bolus an inter carbohydrates before meals. Could also consider lowering target glucose to 110 and treat over 110. . We will talk to patient about increasing the Mounjaro to 5 mg Q weekly (2) Hyperlipidemia: Code(s): E78.5 - Hyperlipidemia, unspecified Category: Medical Plan: We will recheck lipid profile Medications: New tirzepatide (Mounjaro) 5 mg (0.5 mL) subcut QWEEK 2 mL 4RF Discontinued tirzepatide (Mounjaro) for 4 weeks Discontinued Reason: Doctor's Order 2.5 mg (0.5 mL) subcut QWEEK 2 mL 3RF Coding Level of Care Code Est Pt Level 4 (06462) Complex EM visit Add On G2211 Diagnoses Type 2 diabetes mellitus with other diabetic kidney complication E11.29 Hyperlipidemia E78.5
[2025-10-03 15:19] LABS: Glucose, Whole Blood 76 mg/dL (60-115)
--- OUTSIDE RECORDS SUMMARY | 2025-10-03 18:07 | XMS_ITS | Encounter Summary ---
Author Organization [employer] Address [address] [place] [address] Care Team Providers Care Pipe Smoker Machine Operator Name Role Phone Yolie Desir MD Primary Care Provider + Reason for Visit * Reason Comments Med Refill Encounter Details Date Type Department Care Team ([facility] st Contact Info) Description 11/14/2023 Refill [facility] [address] [place] [address] [phone] Preet Blackwood MD [address] [place], [place] [phone] Social History Tobacco Use Types Packs/Day Years [...] Care Team (Late st Contact Info) Description 10/25/2025 10:45 AM EST Office Visit [facility] [address] [place] [address] [phone] Yolie Desir MD [address] [place] [phone] 12/13/2025 11:45 AM EST Office Visit [facility] [address] [place] [phone] Yolie Desir MD [address] [place] [phone] documented as of this encounter Visit Diagnoses Not on filedocumented in this encounter Additional Health Concerns Assessment Noted Time PHQ-9 Depression Total Score: 8 02/11/20 23 9:24 AM EDT documented as of this encounter Care Teams Pipe Smoker Machine Operator Relationship Specialty Start Date End Date Yolie Desir MD [address] [place] [address] [phone] PCP - General Family Medicine 10/26/19 Hilda Cardoso Store PlannerGifted Teacher 04/18/25 Hilda aCrdoso Pipe Finishing SupervisorGifted Teacher 05/22/25 [facility] 08/29/25 documented as of this encounter
--- OUTSIDE RECORDS SUMMARY | 2025-10-03 18:07 | XMS_ITS | Encounter Summary ---
Author Organization [employer] Address [address] [facility] [address] [place] [address] Care Team Providers Care Multimedia Producer Name Role Phone Yolie Desir MD Primary Care Provider + Reason for Visit * Reason Comments Med Refill Encounter Details Date Type Department Care Team ([facility] st Contact Info) Description 01/02/2024 Refill [facility] MED[facility]INE [address] [place], [place] [phone] [facility] [address] [place] [address] Acute on chronic congestive heart failure, unspecified [...] Description 10/25/2025 10:45 AM EST Office Visit [address] [address] Yolie Desir MD [address] [place] [phone] 12/13/2025 11:45 AM EST Office Visit [address] [address] Yolie Desir MD [address] [place] [phone] documented as of this encounter Visit Diagnoses Diagnosis Acute on chronic congestive heart failure, unspecified heart failure type (HCC) documented in this encounter Additional Health Concerns Assessment Noted Time PHQ-9 Depression Total Score: 8 02/11/20 23 9:24 AM EDT documented as of this encounter Care Teams Multimedia Producer Relationship Specialty Start Date End Date Yolie Desir MD [address] [place] [phone] PCP - General Family Medicine 10/26/19 Hilda Cardoso Professor Of GeneticsElectron Beam Photo Mask Maker 04/18/25 Hilda Cardoso Baggage Handling SupervisorElectron Beam Photo Mask Maker 05/22/25 [facility] 08/29/25 documented as of this encounter
--- OUTSIDE RECORDS SUMMARY | 2025-10-03 18:07 | XMS_ITS | Encounter Summary ---
Author Organization [employer] [facility] Address [address] [place] [address] 7[address] [place] [address] Care Team Providers Care Aviculturist Name Role Phone Yolie eDsir MD Primary Care Provider + Reason for Visit * Reason Onset Date Comments Prior Authorization 10/28/2022 Encounter Details Date Type Department Care Team (Late st Contact Info) Description 10/28/2022 Telephone [facility] MEDICINE [address] [place], [place] [phone] Yolie Desir MD [address] [place], [place] [phone] Prior Authorization Social History Tobacco Use Types [...] Description 10/25/2025 10:45 AM EST Office Visit [facility] [address] [place], [place] [phone] Yolie Desir MD [address] [place], [place] [phone] 12/13/2025 11:45 AM EST Office Visit [facility] MED[facility] [address] [place], [place] [phone] Yolie Desir MD [address] [place] [address] [phone] documented as of this encounter Visit Diagnoses Not on filedocumented in this encounter Care Teams Aviculturist Relationship Specialty Start Date End Date Yolie Desir MD [address] [place] [address] [phone] PCP - General Family Medicine 10/26/19 Hilda Cardoso Paratransit DriverManager Basketball 04/18/25 Hilda Cardoso Personal Care AideManager Basketball 05/22/25 [facility] 08/29/25 documented as of this encounter
--- OUTSIDE RECORDS SUMMARY | 2025-10-03 18:07 | XMS_ITS | Clinical Summary ---
Author Organization [employer] Address [address] [facility] [address] [place] [address] Care Team Providers Care Contact Center Analyst Name Role Phone Yolie Ashby MD Primary Care Provider + Allergies Active Allergy Reactions Criticality Noted Date Comments Levofloxacin 03/15/2019 Sulfamethoxazole-Trimethopri m Other 04/13/2021 Macular Edema per Legacy Notes Vancomycin Other 08/20/2025 Medications * This document contains information received [...] PAIN. CALL 911 IF NO RELIEF Active Spacer/Aero-Hol ding Chambers (Emeterio Macias) misc 1 each every 4 (four) hours if needed (asthma). 1 each Active melatonin 5 MG tablet TAKE 1 TABLET BY MOUTH AT BEDTIME 30 tablet Active FLUoxetine (PROzac) 20 MG capsule TAKE 1 CAPSULE BY MOUTH EVERY MORNING 30 capsule Active Insulin Disposable Pump (Omnipod 5 G6 Pods, Gen 5,) misc USE DIRECTED CHANGE EVERY 72 HOURS Active Continuous Blood Gluc Transmit (Dexcom G6 transmitter) misc USE DIRECTED ONCE EVERY 3 MONTHS Active Continuous Blood Gluc Sensor (Dexcom G6 Sensor) misc USE DIRECTED. CHANGE EVERY 10 DAYS Active Continuous Blood Gluc Golf Cart Mechanic (Dexcom G6 pt escort) device USE DIRECTED Active carvedilol (Coreg) 6.25 MG tablet TAKE 1 TABLET BY MOUTH TWICE DAILY IN THE MORNING AND IN THE EVENING Active mometasone (Elocon) 0.1 % ointment APPLY APPROXIMATELY 2 GRAMS TOPICALLY TO AFFECTED AREA(S) DAILY IN THE MORNING 45 g Active triamcinolone (Kenalog) 0.1 % creamIndication s:Xerosis of skin APPLY TOPICALLY TWICE DAILY. MIX WITH CERAVE CREAM DIRECTED. 80 g Active glucose (Glutose) 40 % gel oral gel Take 15 g by mouth if needed for low blood sugar. 60 g Active Advair Diskus 250-50 MCG/ACT aerosol powder INHALE 1 PUFF BY MOUTH TWICE DAILY IN THE MORNING AND IN THE EVENING, RINSE MOUTH AFTER USING. 60 each Active Ventolin HFA 108 (90 Base) MCG/ACT inhaler INHALE 2 PUFFS BY MOUTH EVERY 4 HOURS NEEDED FOR WHEEZING OR SHORTNESS OF BREATH 18 g 1 Active albuterol (2.5 MG/3ML) 0.083% nebulizer solutionIndicat [...] TIMES DAILY 15 mL 1 025 Active buPROPion XL (Wellbutrin XL) 150 MG 24 hr tablet Take 1 tablet by mouth in the morning. 025 Active Insulin Lispro 100 UNIT/ML solution INJECT UP TO 120 UNITS SUBCUTANEOUSLY EVERY DAY BY INSULIN PUMP 025 Active Comfort EZ Pen Bodega 31G X 8 MM misc USE DIRECTED FOUR TIMES DAILY 025 Active pantoprazole (ProtoNix) 40 MG EC tabletIndicatio ns:Epigastric pain TAKE 1 TABLET BY MOUTH EVERY MORNING 90 tablet 025 Active gabapentin (Neurontin) 100 MG capsuleIndicati ons:Diabetic nephropathy associated with type 2 diabetes mellitus (HCC) TAKE 2 CAPSULES BY MOUTH THREE TIMES DAILY IN THE MORNING, EVENING AND BEDTIME 180 capsule 025 Active Mounjaro 2.5 MG/0.5ML solution auto-injector Inject 2.5 mg under the skin 1 (one) time per week. 025 Active povidone-iodine (Betadine) 10 % external solution Apply topically Once per day. 025 Active zinc oxide 20 % ointment APPLY TOPICALLY TO THE AFFECTED AREA(S) EVERY DAY NEEDED FOR IRRITATION 025 Active atorvastatin (Lipitor) 20 MG tablet Take 1 tablet by mouth Once per day. Active insulin glargine (Lantus SoloStar) 100 UNIT/ML pen Inject 42 Units under the skin at bedtime. For pump failure Active torsemide (Demadex) 20 MG tablet Take 3 tablets by mouth in the morning and 3 tablets in the evening. Active senna-docusate sodium (Senokot-S) 8.6-50 MG tablet Take 1 tablet by mouth if needed each day for constipation (greater than 2d). 30 tablet 11 025 2025 Active ammonium lactate (Lac-Hydrin) 12 % lotion Apply topically if needed for dry skin. 225 g 3 Active Benzocaine-Ment hol (Cepacol) 15-2.3 MG lozengeIndicati ons:Sore throat Dissolve 1 Units in the mouth every 2 (two) hours if needed (sore throat). 16 lozenge Active guaiFENesin-dex tromethorphan (Robitussin DM) 100-10 MG/5ML syrupIndication s:Cough in adult patient Take 5 mL by mouth every 4 (four) hours if needed for cough for up to 10 days. 120 mL 025 2024 Active spironolactone (Aldactone) 25 MG tablet TAKE 1 TABLET BY MOUTH EVERY MORNING 022 2024 Discontinued(M ed list cleanup (will not trigger notification to Pharmacy)) fluticasone (Flonase) 50 MCG/ACT nasal sprayIndication s:Allergic rhinitis, unspecified seasonality, unspecified trigger USE 1-2 SPRAYS IN EACH NOSTRIL EVERY DAY NEEDED 48 g 5 023 2024 Discontinued(M ed list cleanup (will not trigger notification to Pharmacy)) torsemide (Demadex) 20 MG tabletIndicatio ns:Acute on chronic congestive heart failure, unspecified heart failure type (HCC) Take 1 tablet by oral route twice daily 60 tablet 1 023 2024 Discontinued(M ed list cleanup (will not trigger notification to Pharmacy)) neomycin-bacitr acin-polymyxin (Neosporin) 5-400-5000 ointmentIndicat ions:Type 2 diabetes mellitus with diabetic peripheral angiopathy and gangrene, with long-term current use of insulin (HCC) Apply topically 2 times daily. 30 g 023 2024 Discontinued(M ed list cleanup (will not trigger notification to Pharmacy)) lisinopril 10 MG tablet TAKE 1 AND 1/2 TABLETS BY MOUTH IN THE MORNING @ 730am 2024 Discontinued(M ed list cleanup (will not trigger notification to Pharmacy)) Lantus SoloStar 100 UNIT/ML penIndications: Diabetic ulcer of left midfoot associated with type 2 diabetes mellitus, with fat layer exposed (HCC) INJECT 10 UNITS SUBCUTANEOUSLY AT BEDTIME 15 mL 2 024 2024 Discontinued(M ed list cleanup (will not trigger notification to Pharmacy)) LORazepam (Ativan) 0.5 MG tablet Take 1 tablet (0.5 mg) by mouth if needed each day for anxiety for up to 2 days. 2 tablet 2024 Discontinued(M ed list cleanup (will not trigger notification to Pharmacy)) ammonium lactate (Lac-Hydrin) 12 % lotion APPLY TOPICALLY TO THE AFFECTED AREA(S) EVERY DAY NEEDED FOR DRY SKIN 2024 Discontinued(R eorder (will not trigger notification to Pharmacy)) atorvastatin (Lipitor) 10 MG tablet Take 1 tablet by mouth at bedtime. 2024 Discontinued(M ed list cleanup (will not trigger notification to Pharmacy)) Ozempic, 1 MG/DOSE, 4 MG/3ML solution pen-injector Inject 1 MG SUBCUTANEOUSLY EVERY 7 DAYS IN THE ABDOMEN, THIGHS OR UPPER ARM. ROTATE INJECTION SITES. 2024 Discontinued(M ed list cleanup (will not trigger notification to Pharmacy)) gabapentin (Neurontin) 100 MG capsuleIndicati ons:Diabetic nephropathy associated with type 2 diabetes mellitus (HCC) TAKE 2 CAPSULES BY MOUTH THREE TIMES DAILY IN THE MORNING, EVENING AND BEDTIME 180 capsule 2024 Discontinued(R eorder (will not trigger notification to Pharmacy)) amoxicillin-cla vulanate (Augmentin) 875-125 MG tablet Take 1 tablet by mouth 3 times daily. 2024 cephalexin (Keflex) 500 MG capsule Take 2 capsules by mouth every 6 (six) hours. For 20 days 2024 Active Problems Problem Noted Date Diagnosed Date [...] of the peroneal artery. Assessment & Plan (09/12/2025 2:49 PM EDT): Uncontrolled, probably related to underlying osteomyelitis. Continue insulin pump and follow-up with [facility] endocrinology next week We had discussed regarding importance of tight control of diabetes in order to prevent diabetes comorbidities Follow-up with me in 3 months Influenza and COVID immunization today Ophthalmology evaluation of today at eye and LASIK by 02/20/25 Patient has diabetic neuropathy, follow-up with betting agency manager Assessment & Plan (05/30/2025 2:27 PM EDT): Fairly controlled, A1c 7.2. Continue Lantus 10 units nightly if she is off Humalog pump, otherwise use Humalog pump and follow-up with activities concierge Continue Ozempic Follow-up with ophthalmology on 06/26, advised to reschedule appointment with betting agency manager Follow-up with me in 3 to 4 [...] Omnipod use. Continue to follow up with Transportation Planner and change of medications. FU in 3 [...] to increase water intake and fu with FOREIGN LANGUAGE STENOGRAPHER in June for pelvic exam She will fu this afternoon with , activities concierge Carpal tunnel syndrome of right wrist 01/23/2024 Overview (01/23/2024): NCS at [facility] on 12/2023= Median nerve compression [...] (05/30/2025 2:29 PM EDT): Follow-up with Dr. Maxwell/FOREIGN LANGUAGE STENOGRAPHER, has appointment on July. Assessment & Plan (01/23/2024 12:17 PM EST): Sp LEEP bx 12/[address] Maxwell FU with FOREIGN LANGUAGE STENOGRAPHER on 06/2024 Numbness and tingling of right arm 11/04/2023 Assessment & Plan (11/04/2023 12:21 PM EST): Rule out rotator cuff impingement Start PT Order nerve conduction study Cervical high risk HPV (human papillomavirus) te [...] of both eyes 11/16/2022 Chronic sinusitis 11/16/2022 Distressed about housing issues 11/16/2022 Epigastric pain [...] rhinorrhea 11/16/2022 Subacute osteomyelitis of left foot (CMS/HCC) 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 04/22/2021 Proteinuria 04/22/2021 Generalized ischemic myocardial dysfunction 11/23 Stage 3 chronic kidney disease (CMS/HCC) 019 Essential hypertension 08/22/2018 Assessment & Plan [...] 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 Mass of axilla [...] AND PLAN FOR TYPE 2 DIABETES MELLITUS ([facility]) WRITTEN ON 11/04/2023 2:41 PM BY YOLIE ASHBY MD Uncontrolled Unclear if insulin pump is working properly Told patient to call endocrinology MARYLOU to see if pump can be replaced sooner vs. Move temporarily to sc Lantus + Humalog Assessment & Plan (01/08/2025 2:18 PM EST): >>ASSESSMENT AND PLAN FOR TYPE 2 DIABETES MELLITUS ([facility]) WRITTEN ON 08/02/2024 3:15 PM BY YOLIE ASHBY MD Controlled, last A1c on 01/2024 was at goal. I will do A1c at upcoming regular visit Patient had episode of hypoglycemia today, probably due to miscalculation of insulin dose adjustment. She will fu on Tuesday with personal development educator. She received glucose load today and [...] I congratulated her for reaching out to activities concierge and compliance w/ medications I gave her information about diabetic diet, she's asking for more 1-1 set up mechanic coil winding machines coaching, so I gave her information about wt reduction programs in the area Continue close fu w/ activities concierge insulin pump + Ozempic Pt had intraocular [...] she request an appointment for tomorrow, made. Diabetic ulcer of left midfo ot associated with diabetes mellitus due to underlying condition, limited to breakdown of skin 11/04/2023 09/12/2025 Assessment & Plan (11/04/2023 12:23 PM EST): On left foot, superficial. Dressing done today Continue dressing with antibiotic ointment daily F/u with me in 3 weeks and will order x ray if needed Property Claim Rep appt on Diabetic ulcer of left midfo ot associated with type 2 diabetes mellitus, with fat layer exposed 11/16/2022 09/12/2025 Assessment & Plan (05/30/2025 2:26 PM EDT): Patient cellulitis, status post's Doxy + Augmentin completed, doing well. Continue gentle also dressing by VNA and refer to wound clinic. Advised to schedule appointment with betting agency manager, Dr. Castro of. Rx for diabetic shoes [...] to check finger stick and fu with activities concierge. I told pt to call activities concierge office to fu on prescription of CGM sensor Continue lantus 50 units + Omnipod insulin pod Pt to continue regular wound care at wound clinic for left DM ulcer continue laser therapy on right eye. She is legally blind in the left eye. order labs and FU with me in 3 months Assessment & Plan (01/23/2024 12:14 PM EST): Significantly improving, fu with [facility] wound clinic I will order [...] to use Humalog + Lantus as above. Acute renal failure syndrome 04/22/2021 03/29/2024 Congestive [...] organization. Date Type Department Care Team Description 10/03/2025 Orders Only GENERIC EXTERNAL DATA DEPARTMENT Provider, Generic External Data 09/27/2025 2:45 PM EST Office Visit [address] [address] Xuan Lozada NP Sore throat; Cough in adult patient 09/27/2025 Travel 09/27/[address] [address] Yolie Ashby MD Nurse Triage 09/16/[address] [address] Yolie Ashby MD Call Back Request; fyi 09/12/2025 10:45 AM EDT Office Visit [address] [address] Yolie Ashby MD Encounter for screening for malignant neoplasm of colon (Primary Dx); Diabetes mellitus type 2 with peripheral artery disease (HCC); Encounter for vaccination; Encounter for immunization; Screening for colon cancer 09/12/2025 Travel 09/11/[address] [address] Yolie Ashby MD CHART PREP 09/09/2025 Refill [facility] [address] [place] [address] [phone] Yolie Ashby MD Diabetic nephropathy associated with type 2 diabetes mellitus (HCC) 09/09/2025 Refill [facility] [address] [place] [address] Yolie Ashby MD Diabetic nephropathy associated with type 2 diabetes mellitus (HCC) 09/03/[address] [address] Yolie Ashby MD verbal orders 08/29/[address] [address] Yolie Ashby MD Medication Question 08/29/2025 Patient Outreach [address] [address] Yolie Ashby MD Transition Of Care (Tcm) (HDF unscheduled ) 08/23/[address] [address] Yolie Ashby MD oct recall 08/22/2025 Patient Outreach [address] [address] Yolie Ashby MD Pre-visit Planning (SDOH screening completed on 12/25/2024) 08/22/[address] [address] Yolie Ashby MD r/s appt 08/30/25 08/20/[address] [address] Yolie Ashby MD R/S appt 08/30/25 08/13/2025 Results Follow-Up [address] [address] Xuan Lozada NP Vitamin D, 25-Hydroxy, Total, Immunoassay, TSH W/Reflex to FT4 08/12/2025 Orders Only GENERIC EXTERNAL DATA DEPARTMENT Provider, Generic External Data 08/06/[address] [address] Yolie Ashby MD Diabetic nephropathy associated with type 2 diabetes mellitus ([facility]) 07/12/2025 Results Follow-Up [address] [address] Yolie Ashby MD BI Mammogram Screening Tomosynthesis Bilateral from Last 3 Months Immunizations Immunization Administration Dates Next Due Influenza injectable quadriv alent IIV4 with preservative 08/22/2018,09/19/2017 Influenza injectable quadriv alent preservative free 11/04/2023,10/20/2022,02/03/2021,10/26 Influenza, Injectable, MDCK, preservative free 12/10/2015 Influenza, seasonal, injecta ble, preservative free 09/12/2025 Moderna Covid-19 Vaccine 12+ 10/21/2021,04/07/20 21,02/25/2021 Moderna Covid-19 Vaccine 6+ Bivalent 02/10/2023 Pfizer Covid-19 Vaccine 12+ 09/12/2025 Pneumococcal Conjugate PCV 20 02/10/2023 Pneumococcal Polysaccharide [...] Sign Reading Time Taken Comments Blood Pressure 120/68 09/27/2025 2:20 PM EST Pulse 104 09/27/2025 2:20 PM EST Temperature 37.3 C (99.2 F) 09/27/2025 2:20 PM EST Respiratory Rate 28 09/27/2025 2:20 PM EST Oxygen Saturation 95% 09/27/2025 2:20 PM EST Inhaled Oxygen Concentration - - Weight 91 kg (200 lb 9.6 oz) 09/27/2025 2:20 PM EST Height 170.2 cm (5' 7 ) 09/12/2025 11:10 AM EDT Body Mass Index 31.42 09/12/2025 11:10 AM EDT Plan of Treatment Upcoming Encounters Date Type Department Care Team (Late st Contact Info) Description 10/25/2025 10:45 AM EST Office Visit [facility] [address] [place] [phone] Yolie Ashby MD [address] [place] [phone] 12/13/2025 11:45 AM EST Office Visit [facility] [address] [place] [phone] Yolie Ashby MD [address] [place] [phone] Health Maintenance Due Date Last Done Comments CT Colonography 1973 Colonoscopy 1973 FIT 1973 HIV Screening 1973 Sigmoidoscopy 1973 Family Planning (PISQ) 1988 Hepatitis C Screening 1991 Hepatitis B Vaccines (1 of 3 - 19+ 3-dose series) 1992 RSV Patients and Patients Aged 60 years or older (1 - Risk 50-74 years 1-dose series) 2023 Zoster Vaccines (1 of 2) 2023 FOBT 03/21/2024 03/21/2023 Cervical Cancer Screening 11/03/2024 HPV/Cotest 11/03/2024 03/15/2023, 03/15/2023 Pap Smear 11/03/2024 03/15/2023, 03/15/2023 Lipid Panel 06/25/2025 06/25/2024, 10/21, 03/30/2022, Additional history exists Diabetes: Hemoglobin A1C 12/13/2025 025, 05/30/2025, 01/08/2025, Additional history exists SDOH Screening 12/25/2025 12/25/2024 Eye Exam 02/20/2026 02/20/2025, 09/09/2022 Colorectal Cancer Screening 03/21/2026 FIT DNA/Cologuard 03/21/2026 03/21/2023 Alcohol/Substance Use Screening 05/30/2026 05/30/2025 Depression Screening 05/30/2026 05/30/2025, 05/30/20 Disability Screening 05/30/2026 05/30/2025 Tobacco Screening 05/30/2026 05/30/2025 Mammogram 06/28/2026 06/28/2025, 08/0 06/2025, 06/28/2025, Additional history exists Diabetes: Foot Exam 09/12/2026 09/12/2025, 09/12/2025, 09/12/2025, Additional history exists DTaP/Tdap/Td Vaccines (2 - Td or Tdap) 09/19/2027 09/19/2017 Pneumococcal Vaccine: 50+ Years Completed 02/10/2023, 09/19/2017, 12/10/2015, Additional history exists COVID-19 Vaccine Completed 09/12/2025, , 10/21/2021, Additional history exists Influenza Vaccine Completed 09/12/2025, , 10/20/2022, Additional history exists HIB Vaccines Aged Out [...] Associated Diagnosis Comments GLUCOSE, WHOLE BLOOD Routine 10/03/2025 3:13 PM EST POC BENITES ID NOW STREP A Routine 09/27/2025 2:34 PM EST Sore throat POCT INFLUENZA B (ID NOW RAPID MOLECULAR) Routine 09/27/2025 2:29 PM EST Cough in adult patient POCT INFLUENZA A (ID NOW RAPID MOLECULAR) Routine 09/27/2025 2:29 PM EST Cough in adult patient POCT RAPID COVID ANTIGEN Routine 09/27/2025 2:28 PM EST Cough in adult patient POCT GLYCATED HEMOGLOBIN, TOTAL Routine 09/12/2025 11:23 AM EDT Diabetes mellitus type 2 with peripheral artery disease (HCC) POCT GLUCOSE Routine 09/12/2025 11:15 AM EDT Diabetes mellitus type 2 with peripheral artery disease (HCC) GLUCOSE, WHOLE BLOOD Routine 08/12/2025 2:37 PM EDT BI MAMMOGRAM SCREENING TOMOSYNTHESIS BILATERAL Routine 06/28/2025 Screening mammogram for breast cancer AMB REFERRAL TO PODIATRY Routine 04/24/2025 Diabetes mellitus type 2 with peripheral artery disease (CMS/HCC) Diabetic nephropathy associated with type 2 diabetes mellitus (CMS/HCC) LIPID PANEL, STANDARD Routine 06/25/2024 10:51 AM EDT HPV GENOTYPES 16,18/45 Routine 11:10 AM EDT HM PAP/HPV Routine 03/15/2023 from Last 3 Months or Most Recently Relevant to Health Maintenance Results * Glucose, Whole Blood (10/03/2025 3:13 PM EST) Only the most recent of2 resultswithin the time period is included. [facility] Glucose, Whole Blood 76 60 - 115 mg/dL [facility] Comment:METER #: [id number] Testing performed in the Endocrinology Department [address] , [address], [facility]. 10/03/2025 3:13 PM EST 10/03/2025 3:18 PM EST us Generic External Data Provider LAB BLOOD ORDERAB LES Final Result [facility] [address] [place] [phone] * POCT Rapid Strep A BENITES ID NOW (09/27/2025 2:34 PM EST) [facility] Rapid Strep A Screen Negative Negative, None Detected QC Media Lot # [id number] Lot# Expiration Date Swab 09/27/2025 2:34 PM EST Xuan Lozada NP POINT OF CARE TEST ENTER/EDIT O RDERABLES Final Result * POCT Rapid Influenza B BENITES ID NOW (09/27/2025 2:29 PM EST) [facility] Influenza B Negative Negative, Indeterminate [facility] QC Media Lot # [id number] [facility] Lot# Expiration Date [facility] Swab 09/27/2025 2:29 PM EST us Xuan Appram COMPUTER SYSTEMS MANAGER POINT OF CARE TEST ENTER/EDIT O RDERABLES Final Result Performing Organization Address City/[facility]/ZIP Co de Phone Number [facility] [address] [place] [phone] * POCT Rapid Influenza A BENITES ID NOW (09/27/2025 2:29 PM EST) Pathologist [facility] Influenza A Negative Negative, Indeterminate [facility] QC Media Lot # [id number] [facility] Lot# Expiration Date [facility] Swab 09/27/2025 2:29 PM EST [facility] COMPUTER SYSTEMS MANAGER POINT OF CARE TEST ENTER/EDIT O RDERABLES Final Result Performing Organization Address [facility] Co de Phone Number [facility] [address] [place] [address] [phone] * POCT Rapid COVID-19 Binax NOW (09/27/2025 2:28 PM EST) Pathologist [facility] Rapid COVID Ag Negative QC Media Lot # [id number] Lot# Expiration Date Swab 09/27/2025 2:28 PM EST Xuan Appram COMPUTER SYSTEMS MANAGER POINT OF CARE TEST ENTER/EDIT O RDERABLES Final Result * (ABNORMAL) POCT Hgb A1c (09/12/2025 11:23 AM EDT) Pathologist [facility] Hemoglobin A1C 8.3(A) 4.0 - 5.7 % QC Media Lot # [id number] Lot# Expiration Date Blood 09/12/2025 11:2 3 AM EDT Yolie Ashby MD POINT OF CARE TEST ENTER /EDIT ORDERABLES Final Result * POCT Glucose (09/12/2025 11:15 AM EDT) Glucose Blood, POC 124 60 - 200 mg/dL QC Media Lot # [id number] Lot# Expiration Date Blood Capillary blood specimen / Unknown 09/12/2025 11:15 AM EDT Yolie Ashby MD POINT OF CARE TEST ENTER /EDIT ORDERABLES Final Result * BI Mammogram Screening Tomosynthesis Bilateral (06/28/2025) Anatomical Region Laterality Modality Breast Bilateral Mammography Yolie Ashby MD IMG BI PROCEDURES Final Result * Referral to Podiatry (04/24/2025) Yolie Ashby MD OUTPATIENT REFERRAL ORDE RABLES Final Result * (ABNORMAL) Lipid Panel, Standard (06/25/2024 10:51 AM EDT) Triglycerides 186(H) <150 mg/dL [facility] Comment:Desirable Triglyceri de: less than 150 mg/dLBorderline High Triglyceride 150-199 mg/dLHigh Triglyceride: 200-499 mg/dLVery High Triglyceride: greater than or equal to 5OO mg/dL Cholesterol 246(H) <200 mg/dL [facility] Comment:Desirable Cholestero l: less than 200 mg/dLBorderline High Cholesterol: 200-239 mg/dLHigh Cholesterol: greater than 239 mg/dL LDL Cholesterol Calculated 163(H) <100 mg/dL [facility] Comment:Desirable LDL: less than 100 mg/dLNear Optimal/Above Optimal LDL: 110- 129 mg/dLBorderline High LDL: 130-159 mg/dLHigh LDL: 160-189 mg/dLVery High LDL: greater than or equal to 190 mg/dL HDL Cholesterol 46 >40 mg/dL [facility] Comment:Desirable HDL: great er than 40 mg/dL Note: This HDL assay may give artificially low results in patients with liver disease. 06/25/2024 10:5 1 AM EDT 06/25/2024 10:51 AM EDT Generic External Data Provider LAB BLOOD ORDERAB LES Final Result [facility] [address] [place] [phone] * (ABNORMAL) HPV Genotypes 16,18/45 (03/15/2023 11:10 AM EDT) HPV 16 RNA NOT DETECTED NOT DETECTED [employer] [place] [employer] HPV 18/45 RNA DETECTED(A) NOT DETECTED [employer] [place] [employer] Comment: Methodology: Clothes Designer Mediated Amplification Cervical sources are required for HPV testing. If a vaginal source from a patient who has had a total hysterectomy with removal of cervix was submitted, please contact the testing laboratory for alternative testing options. 03/15/2023 11:1 0 AM EDT 03/16/2023 6:23 AM EDT us Yolie Ashby MD LAB CYTOLOGY ORDERABLES Final Result Performing Organization Address City/[facility] Co de Phone Number [facility] [address], [place] [phone] [employer] [place] [employer] [facility] [address] [place] [phone] * Hm Pap Smear (03/15/2023) HM Pap smear NIL HPV+ Historical Provider HEALTH MAINTENANCE Final Result from Last 3 Months or Most Recently Relevant to Health Maintenance Insurance [facility] C3 Care Teams Contact Center Analyst Relationship Specialty Start Date End Date Yolie Ashby MD [address] [place] [phone] PCP - General Family Medicine 10/26/19 Hilda Cardoso Decorating Machine TenderE Marketing Specialist 04/18/25 Hilda Cardoso Drafter CivilE Marketing Specialist 05/22/25 [facility] 08/29/25
--- OUTSIDE RECORDS SUMMARY | 2025-10-03 18:07 | XMS_ITS | Encounter Summary ---
Author Organization [employer] Address [address] [facility] 7t [place] [address] Care Team Providers Care Limited Radiology Technician Name Role Phone Yolie Desir MD Primary Care Provider + Reason for Visit * Reason Comments Med Refill Encounter Details Date Type Department Care Team ([facility] st Contact Info) Description 09/09/2025 Refill [facility] MEDICINE [address] [place], [place] [phone] Yolie Desir MD 230 [place], [place] [phone] Diabetic nephropathy associated with type 2 diabetes mellitus (HCC) Social History Tobacco Use Types Packs/Day Years [...] Description 10/25/2025 10:45 AM EST Office Visit [facility] MEDICINE [address] [place] [phone] Yolie Desir MD [address] [place] [phone] 12/13/2025 11:45 AM EST Office Visit [facility] MEDICINE [address] [place] [phone] Yolie Desir MD [address] [place] [phone] documented as of this encounter Visit Diagnoses Diagnosis Diabetic nephropathy associated with type 2 diabetes mellitus (HCC) documented in this encounter Additional Health Concerns Assessment Noted Time PHQ-9 Depression Total Score: 6 05/30/20 25 10:56 AM EDT documented as of this encounter Care Teams Limited Radiology Technician Relationship Specialty Start Date End Date Yolie Desir MD 230 [place] [address] PCP - General Family Medicine 10/26/19 Hilda Cardoso Clerk General OfficeHand Shaper 04/18/25 Hilda Cardoso Engineering And Development DirectorHand Shaper 05/22/25 [facility] 08/29/25 documented as of this encounter
--- OUTSIDE RECORDS SUMMARY | 2025-10-03 18:07 | XMS_ITS | Encounter Summary ---
Author Organization [employer] Address [address] [place] [address] 7t [place] [address] Care Team Providers Care Game Producer Name Role Phone Yolei Desir MD Primary Care Provider + Encounter Details Date Type Department Care Team (Late st Contact Info) Description 01/25/2023 Abstract [facility] MEDICINE [address] [place] [address] [phone] Yolie Desir MD [address] [place] [address] [phone] Social History Tobacco Use Types Packs/Day Years [...] Description 10/25/2025 10:45 AM EST Office Visit [facility] MEDICINE [address] [place] [address] [phone] Yolie Desir MD [address] [place] [address] [phone] 12/13/2025 11:45 AM EST Office Visit [address] [phone] Yolie Desir MD 230 [place] [address] documented as of this encounter Visit Diagnoses Not on filedocumented in this encounter Care Teams Game Producer Relationship Specialty Start Date End Date Yolie Desir MD [address] [place], [place] [phone] PCP - General Family Medicine 10/26/19 Hilda Cardoso Custom Wood Stair BuilderSupervisor Long Goods 04/18/25 Hilda Cardoso Client AnalystSupervisor [employer] Goods 05/22/25 [facility] 08/29/25 documented as of this encounter
--- OUTSIDE RECORDS SUMMARY | 2025-10-03 18:07 | XMS_ITS | Encounter Summary ---
Author Organization [employer] Address [address] [facility] [address] 7t [place] [address] Care Team Providers Care Patch Press Operator Name Role Phone Yolie Desir MD Primary Care Provider + Reason for Visit * Reason Comments Med Refill Encounter Details Date Type Department Care Team (Late st Contact Info) Description 12/29/2023 Refill [facility] MEDICINE 230 [place], [place] [phone] Yolie Desir MD 230 [place], [place] [phone] Diabetic nephropathy associated with type 2 diabetes mellitus ([facility]/HCC) Social History Tobacco Use Types Packs/Day [...] Description 10/25/2025 10:45 AM EST Office Visit [facility] MEDICINE [address] [place] [phone] Yolie Desir MD [address] [place] [phone] 12/13/2025 11:45 AM EST Office Visit [address] [address] Yolie Desir MD [address] [place] [phone] documented as of this encounter Visit Diagnoses Diagnosis Diabetic nephropathy associated with type 2 diabetes mellitus (HCC) documented in this encounter Additional Health Concerns Assessment Noted Time PHQ-9 Depression Total Score: 8 02/11/20 23 9:24 AM EDT documented as of this encounter Care Teams Patch Press Operator Relationship Specialty Start Date End Date Yolie Desir MD [address] [place] [phone] PCP - General Family Medicine 10/26/19 Hilda Cardoso Insulation TechnicianMems Integration Engineer 04/18/25 Hilda Cardoso Public Safety PoliceMems Integration Engineer 05/22/25 [facility] 10/9/25 documented as of this encounter
--- OUTSIDE RECORDS SUMMARY | 2025-10-03 18:07 | XMS_ITS | Encounter Summary ---
Author Organization [employer] Address [address] [facility] 7t [place] [address] Care Team Providers Care Industrial Chemist Name Role Phone Yolie Desir MD Primary Care Provider + Reason for Visit * Reason Comments Med Refill Encounter Details Date Type Department Care Team (Late st Contact Info) Description 06/15/2024 Refill [facility] ADULT DENTAL 230 [place], [place] [phone] Yolie Desir MD 230 [place], [place] [phone] Diabetic nephropathy associated with type 2 diabetes mellitus ([facility]) Social History Tobacco Use Types [...] Description 10/25/2025 10:45 AM EST Office Visit [facility] MEDICINE [address] [place] [phone] Yolie Desir MD [address] [place] [phone] 12/13/2025 11:45 AM EST Office Visit [facility] MEDICINE [address] [place] [phone] Yolie Desir MD [address] [place] [address] documented as of this encounter Visit Diagnoses Diagnosis Diabetic nephropathy associated with type 2 diabetes mellitus (HCC) documented in this encounter Additional Health Concerns Assessment Noted Time PHQ-9 Depression Total Score: 8 02/11/20 23 9:24 AM EDT documented as of this encounter Care Teams Industrial Chemist Relationship Specialty Start Date End Date Yolie Desir MD [address] [place] [phone] PCP - General Family Medicine 10/26/19 Hilda Cardoso Corporate PlannerSeo Associate 04/18/25 Hilda Cardoso Principle Industrial HygienistSeo Associate 05/22/25 [facility] 08/29/25 documented as of this encounter
--- OUTSIDE RECORDS SUMMARY | 2025-10-03 18:07 | XMS_ITS | Encounter Summary ---
Author Organization [employer] Address [address] [facility] [address] 7t [place] [address] Care Team Providers Care Ammunition And Explosives Handler Name Role Phone Yolie Desir MD Primary Care Provider + Encounter Details Date Type Department Care Team ([facility] st Contact Info) Description 08/13/2025 Results Follow-Up [facility] MEDICINE 230 [place], [place] [phone] Xuan Lozada NP 230 [place] [address] Vitamin D, 25-Hydroxy, Total, Immunoassay, TSH W/Reflex [...] Description 10/25/2025 10:45 AM EST Office Visit [address] [address] Yolie Desir MD [address] [place] [phone] 12/13/2025 11:45 AM EST Office Visit [facility] MEDICINE [address] [place] [phone] Yolie Desir MD [address] [place] [phone] documented as of this encounter Visit Diagnoses Not on filedocumented in this encounter Additional Health Concerns Assessment Noted Time PHQ-9 Depression Total Score: 6 05/30/20 25 10:56 AM EDT documented as of this encounter Care Teams Ammunition And Explosives Handler Relationship Specialty Start Date End Date Yolie Desir MD [address] [place] [phone] PCP - General Family Medicine 10/26/19 Hilda Cardoso Continuous Drier OperatorCable Systems Installer 04/18/25 Hilda Cardoso Boilermaker Assembly And ErectionCable Systems Installer 05/22/25 [facility] 08/29/25 documented as of this encounter
--- OUTSIDE RECORDS SUMMARY | 2025-10-03 18:07 | XMS_ITS | Encounter Summary ---
Author Organization [employer] Address [address] [facility] 7t [place] [address] Care Team Providers Care Allergy And Immunology Specialist Name Role Phone Yolie Desir MD Primary Care Provider + Reason for Visit * Reason Comments Med Refill Encounter Details Date Type Department Care Team (Late st Contact Info) Description 11/29/2023 Refill [facility] DIABETES/NUTRITION 230 [place], [place] [phone] Axel Graf MD 230 [place] [address] Diabetic nephropathy associated with type 2 diabetes mellitus ([facility]) Social History Tobacco Use Types [...] Description 10/25/2025 10:45 AM EST Office Visit [address] [address] Yolie Desir MD [address] [place] [phone] 12/13/2025 11:45 AM EST Office Visit [address] [address] Yolie Desir MD [address] [place] [phone] documented as of this encounter Visit Diagnoses Diagnosis Diabetic nephropathy associated with type 2 diabetes mellitus (HCC) documented in this encounter Additional Health Concerns Assessment Noted Time PHQ-9 Depression Total Score: 8 02/11/20 23 9:24 AM EDT documented as of this encounter Care Teams Allergy And Immunology Specialist Relationship Specialty Start Date End Date Yolie Desir MD [address] [place] [phone] PCP - General Family Medicine 10/26/19 Hilda Cardoso Parts Counter RepresentativeTelemarketer 04/18/25 Hilda Cardoso Roller EngraverTelemarketer 05/22/25 [facility] 08/29/25 documented as of this encounter
--- OUTSIDE RECORDS SUMMARY | 2025-10-03 18:07 | XMS_ITS | Clinical Summary ---
Author Organization 175 [facility] Address [address] [place] [address] Phone Care Team Providers Care Aircraft Launch And Recovery Technician Name Role Phone Yolie Desir MD Primary Care Provider + [phone] Allergies Active Allergy Reactions Criticality Noted Date Comments Levofloxacin 08/24/2017 Sulfamethoxazole-Trimethopr im Other 08/24/2017 Macular Edema per Legacy Notes Trimethoprim 04/13/2021 Vancomycin Anaphylaxis High 08/21/2025 Medications gabapentin (NEURONTIN) 100 mg capsule Take [...] mouth 2 (two) times a day. Active buPROPion XL (WELLBUTRIN XL) 150 mg [...] mg total) by mouth at bedtime. Active povidone-iodine (Betadine) 10 % topical solution Apply topically 1 (one) time each day. 473 mL 5 Active cephalexin (KEFLEX) 500 mg capsule Take 2 capsules (1,000 mg total) by mouth every 6 (six) hours for 20 days. 160 each 5 09/17/20 25 amoxicillin-clav ulanate (AUGMENTIN) 875-125 mg per tablet Take 1 tablet by mouth 3 (three) times a day for 16 days. 48 each 5 09/13/20 25 Active Problems Problem Noted Date Diagnosed Date Chronic osteomyelitis of hin dfoot, left ([facility] V24, [facility] V28) 07/23/2025 Ulcer of toe of left foot, w ith fat layer exposed ([facility] V24, [facility] V28) 06/05/2025 Type 2 diabetes mellitus wit h polyneuropathy ([facility] V24, [facility] V28) 06/05/2025 Diabetic foot infection ([facility] V24, [facility] V2 8) 05/06/2025 Allergic rhinitis 09/28/2024 Anemia 09/28/2024 Primary osteoarthritis of both hips 09/28/2024 Blindness of both eyes 09/28/2024 Chronic sinusitis 09/28/2024 CHF (congestive heart failure) ([facility] V24, [facility] V28) 09/28/2024 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 ([facility] V24, [facility] V28) 09/28/2024 Type 2 diabetes mellitus wit h foot ulcer (CODE) ([facility] V24, [facility] V28) 09/28/2024 Encounters Date Type Department Care Team Description 09/23/2025 1:00 PM EST Office Visit Orthopedic [place] [address] [phone] Joaquín Guan DPM Ulcer of heel and midfoot, left, with fat layer exposed ([facility] V24, [facility] V28) (Primary Dx); Pain in toe of left foot; Chronic osteomyelitis of hindfoot, left ([facility] V24, [facility] V28); Ulcer of toe of left foot, with fat layer exposed ([facility] V24, [facility] V28); Follow-up exam 09/20/2025 Telephone Orthopedic Surgery [facility] [address] [phone] Joaquín Guan DPM 09/10/2025 2:00 PM EDT Office Visit Orthopedic [facility] [address] [phone] Joaquín Guan DPM Pain in toe of left foot (Primary Dx); Chronic osteomyelitis of hindfoot, left ([facility] V24, [facility] V28); Ulcer of toe of left foot, with fat layer exposed ([facility] V24, [facility] V28) 09/03/2025 9:30 AM EDT Office Visit [facility] [address] [phone] Dusty Gonzalez DPM Ulcer of toe of left foot, with fat layer exposed ([facility] V24, [facility] V28) (Primary Dx) 09/02/2025 Telephone Orthopedic Surgery [place] [address] [phone] Dusty Gonzalez DPM 08/28/2025 Telephone Infectious Disease [facility] 175 [facility] [address] [place] [phone] [place] 08/23/2025 2:41 PM EDT Anesthesia Event [facility] [place] [address] [place] [phone] Shane Vera DO Couture, Alison, CRNA 08/23/2025 2:39 PM EDT - 08/23/2025 3:54 PM EDT Surgery [facility] OR [address] [place] [address] [phone] Joaquín Guan DPM EXCISION METATARSAL HEAD [[id number] (CPT ) +2 more] 08/20/2025 10:56 PM EDT - 08/28/2025 3:50 PM EDT Hospital Encounter [facility] [address] [place] [phone] Codey Daniels MD Jones, Christopher, MD Kokosadze, Estate, MD Zipagan, James T, MD Diabetic foot infection ([facility] V24, [facility] V28) (Primary Dx); Anaphylaxis, initial encounter; Acute osteomyelitis of left foot ([facility] V24, [facility] V28); Ulcer of toe of left foot, with fat layer exposed ([facility] V24, [facility] V28); Chronic osteomyelitis of hindfoot, left ([facility] V24, [facility] V28) Discharge Disposition: Home-Health Care [facility] 08/20/2025 2:30 PM EDT Office Visit Orthopedic Surgery [facility] [address] [phone] Dusty Gonzalez DPM Acute osteomyelitis of left ankle or foot ([facility] V24, [facility] V28) (Primary Dx); Ulcer of toe of left foot, with necrosis of bone ([facility] V24, [facility] V28) 08/16/2025 10:15 AM EDT Office Visit Orthopedic [facility] [place] [address] [phone] Dusty Gonzalez DPM Chronic osteomyelitis of hindfoot, left ([facility] V24, [facility] V28) (Primary Dx); Ulcer of toe of left foot, with necrosis of bone ([facility] V24, [facility] V28) 08/15/2025 2:15 PM EDT Office Visit [facility] [address] [place] [phone] Shane Cash PA Type 2 diabetes mellitus with foot ulcer (CODE) ([facility] V24, [facility] V28) (Primary Dx); 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 without evidence of necrosis ([facility] V24, [facility] V28) 08/08/2025 2:15 PM EDT Office Visit [facility] [address] [place] [phone] Shane Cash PA Type 2 diabetes mellitus with foot ulcer (CODE) ([facility] V24, [facility] V28) (Primary Dx); 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 without evidence of necrosis ([facility] V24, [facility] V28) 08/02/2025 2:15 PM EDT Office Visit [facility] [address] [place] [phone] Shane Cash PA Type 2 diabetes mellitus with foot ulcer (CODE) ([facility] V24, [facility] V28) (Primary Dx); Non-pressure chronic ulcer of other part of left foot with fat layer exposed ([facility] V24, [facility] V28); Type 2 diabetes mellitus with polyneuropathy ([facility] V24, [facility] V28) 07/26/2025 10:00 AM EDT Office Visit [facility] [address] [place] [phone] Shane Cash PA Type 2 diabetes mellitus with foot ulcer (CODE) (CMS/HCC V24, [facility]/HCC V28) (Primary Dx); Non-pressure chronic ulcer of other part of left foot with fat layer exposed (CMS/HCC V24, [facility]/HCC V28); Type 2 diabetes mellitus with polyneuropathy (CMS/HCC V24, [facility]/H[facility] V28) 07/23/2025 11:00 AM EDT Office Visit Orthopedic Surgery [facility] [address] [phone] Dusty Gonzalez DPM Chronic osteomyelitis of hindfoot, left ([facility] V24, [facility] V28) (Primary Dx); Ulcer of toe of left foot, with fat layer exposed ([facility] V24, [facility] V28) 07/18/2025 2:45 PM EDT Office Visit [facility] [address] [place] [phone] Shane Cash PA Type 2 diabetes mellitus with foot ulcer (CODE) ([facility] V24, [facility] V28) (Primary Dx); Non-pressure chronic ulcer of other part of left foot with fat layer exposed ([facility] V24, [facility]/H[facility] V28) 07/11/2025 2:45 PM EDT Office Visit [facility] [address] [place] [phone] Shane Cash PA Type 2 diabetes mellitus with foot ulcer (CODE) ([facility] V24, [facility] V28) (Primary Dx); Non-pressure chronic ulcer of other part of left foot with fat layer exposed (CMS/HCC V24, CMS/HCC V28) 07/10/2025 3:30 PM EDT Office Visit [facility] [address] [phone] Dusty Gonzalez DPM Acute osteomyelitis of left ankle or foot ([facility] V24, [facility] V28) (Primary Dx); Ulcer of toe of left foot, with fat layer exposed ([facility] V24, [facility] V28); Ulcer of toe of right foot, limited to breakdown of skin ([facility] V24, [facility] V28) 07/04/2025 2:30 PM EDT Office Visit [facility] [address] [place] [phone] Shane Csah PA Type 2 diabetes mellitus with foot ulcer (CODE) ([facility] V24, [facility] V28) (Primary Dx); Non-pressure chronic ulcer of other part of left foot with fat layer exposed ([facility] V24, [facility] V28) from Last 3 Months Surgical History Surgery Date Site/Laterality Comments WOUND DEBRIDEMENT Left foot CORONARY ARTERY BYPASS GRAFT 2015 Medical History Medical History Date Comments Diabetes mellitus ([facility] V24, [facility] V28) Hypertension Chronic kidney disease Anxiety Depression Neuropathy Hyperlipidemia Glaucoma Vision loss Family History Medical History Relation Name Comments [...] Safety Answer Date Record ed Physical Abuse Unrecognized value 08/21/2025 Verbal Abuse Unrecognized value 08/21/2025 Comments No Sex and Gender Information Value [...] Sign Reading Time Taken Comments Blood Pressure 136/81 08/28/2025 8:22 AM EDT Pulse 72 08/28/2025 8:22 AM EDT Temperature 36.1 C (96.9 F) 08/28/2025 8:22 AM EDT Respiratory Rate 18 08/28/2025 8:22 AM EDT Oxygen Saturation 100% 08/28/2025 8:22 AM EDT Inhaled Oxygen Concentration - - Weight 89 kg (196 lb 3.2 oz) 08/28/2025 6:30 AM EDT Height 170.2 cm (5' 7 ) 08/20/2025 8:25 PM EDT Body Mass Index 30.73 08/20/2025 8:25 PM EDT Plan of Treatment Upcoming Encounters Date Type Department Care Team (Late st Contact Info) Description 10/07/2025 1:00 PM EST Office Visit Orthopedic Surgery - [place] 250 175 [facility] [address] [place] [phone] Joaquín Guan DPM 175 [facility] [address] [place] [address] 10/23/2025 3:00 PM EST Office Visit Infectious Disease - [place] 175 [facility] [address] [place] [phone] Sera Vásquez MD 175 [facility] [address] [place] [address] 11/11/2025 1:30 PM EST Consult Vascular Surgery - [place] 300 [facility] [address] [place] [phone] Estella Mendez PA 300 [facility] [address] [place] [address] Health Maintenance Due Date Last Done Comments Diabetes: Annual Retina Eye Exam 1983 Hepatitis B Vaccines (1 of 3 - 19+ 3-dose series) 1992 Cervical Cancer Screening: Pap Smear 07/17/2018 07/17/2015 RSV Immunization Adult Patients (1 - Risk 50-74 years 1-dose series) 2023 Zoster Vaccines (1 of 2) 2023 Social Influencers of Health Screening 08/24/2024 Diabetes: Annual Urine Albumin-Creatinine Ratio (uACR) 09/28/2024 Diabetes: Blood Sugar Control Test (HGBA1C) 03/13/2026 09/12/2025, 05/30/2025, 01/08/2025, Additional history exists Colorectal Cancer Screening: FIT-DNA (Cologuard) 03/21/2026 03/21/2023, 03/21/2023 Diabetes: Annual Foot Exam 08/21/2026 08/21/2025, Diabetes: Annual GFR (Glomerular Filtration Rate) 08/28/2026 08/28/2025, 08/26/2025, 08/25/2025, Additional history exists Hypertension/CHF/CAD Annual BMP Blood Test 08/28/2026 08/28/2025, 08/26/2025, 08/25/2025, Additional history exists Breast Cancer Screening 06/28/2027 06/28/2025 DTaP,Tdap,and Td Vaccines (2 - Td or Tdap) 09/19/2027 09/19/2017 Cholesterol Screening (Lipid Panel) 06/25/2029 06/25/2024 HIV Screening Completed 08/24/2017 Hepatitis C Screening Completed 08/24/2017 Pneumococcal Vaccine: 50+ Years Completed 02/10/2023, 09/19/2017, 12/10/2015, Additional history exists Depression Screening Completed 06/05/2025 COVID-19 Vaccine Completed 09/12/2025, , 10/21/2021, Additional [...] date (in notes) Care Plan Impaired Tissue Worsening( 2:42 PM EDT) Kristie Clancy RN Patient and Caregiver Understand Wound Care Education Care Plan Impaired Tissue Not on track( 025 2:42 PM EDT) Kristie Clancy RN Wound volume breakdown reduced by X% by week 4 Care Plan Impaired Tissue Kristie Clancy RN Wound volume breakdown reduced by X% by week 8 Care Plan Impaired Tissue No Kristie Sauer RN Wound volume breakdown reduced by X% [...] omised skin integrity. No Kristie Sauer RN Procedures Procedure Name Priority Date/Time Associated Diagnosis Comments XR FOOT 3+ VIEWS LEFT Routine 09/23/2025 12:57 PM EST Follow-up exam XR FOOT 3+ VIEWS LEFT Routine 09/10/2025 2:13 PM EDT Ulcer of toe of left foot, with fat layer exposed (CMS/HCC V24, CMS/HCC V28) POCT GLUCOSE BLOOD Routine 08/28/2025 11:08 AM EDT POCT GLUCOSE BLOOD Routine 08/28/2025 8: 23 AM EDT BASIC METABOLIC PANEL Routine 08/28/2025 5:53 AM EDT LAVENDER - EDTA Routine 08/28/2025 5:51 AM EDT EXTRA TUBES Routine 08/28/2025 5:51 AM EDT POCT GLUCOSE BLOOD Routine 08/27/2025 7: 43 PM EDT POCT GLUCOSE BLOOD Routine 08/27/2025 4: 15 PM EDT POCT GLUCOSE BLOOD Routine 08/27/2025 11:29 AM EDT POCT GLUCOSE BLOOD Routine 08/27/2025 7: 57 AM EDT POCT GLUCOSE BLOOD Routine 08/26/2025 7: 54 PM EDT POCT GLUCOSE BLOOD Routine 08/26/2025 4: 06 PM EDT POCT GLUCOSE BLOOD Routine 08/26/2025 11:11 AM EDT POCT GLUCOSE BLOOD Routine 08/26/2025 8: 06 AM EDT PEP THERAPY Routine 08/26/2025 8:00 AM EDT CBC WITH AUTO DIFFERENTIAL Routine 08/26/2025 6:13 AM EDT CBC AND DIFFERENTIAL Routine 08/26/2025 6:13 AM EDT BASIC METABOLIC PANEL Routine 08/26/2025 6:13 AM EDT POCT GLUCOSE BLOOD Routine 08/25/2025 7: 41 PM EDT POCT GLUCOSE BLOOD Routine 08/25/2025 3: 43 PM EDT POCT GLUCOSE BLOOD Routine 08/25/2025 12:13 PM EDT PEP THERAPY Routine 08/25/2025 8:00 AM EDT POCT GLUCOSE BLOOD Routine 08/25/2025 7: 47 AM EDT CBC WITH AUTO DIFFERENTIAL Routine 08/25/2025 5:38 AM EDT BASIC METABOLIC PANEL Routine 08/25/2025 5:38 AM EDT CBC AND DIFFERENTIAL Routine 08/25/2025 5:38 AM EDT POCT GLUCOSE BLOOD Routine 08/24/2025 7: 38 PM EDT POCT GLUCOSE BLOOD Routine 08/24/2025 4: 27 PM EDT POCT GLUCOSE BLOOD Routine 08/24/2025 11:10 AM EDT PEP THERAPY Routine 08/24/2025 8:00 AM EDT POCT GLUCOSE BLOOD Routine 08/24/2025 7: 59 AM EDT CBC WITH AUTO DIFFERENTIAL Routine 08/24/2025 5:42 AM EDT MAGNESIUM Routine 08/24/2025 5:42 AM EDT BASIC METABOLIC PANEL Routine 08/24/2025 5:42 AM EDT CBC AND DIFFERENTIAL Routine 08/24/2025 5:42 AM EDT POCT GLUCOSE BLOOD Routine 08/23/2025 7: 59 PM EDT POCT GLUCOSE BLOOD Routine 08/23/2025 3: 57 PM EDT TISSUE EXAM Routine 08/23/2025 3:06 PM EDT Ulcer of toe of left foot, with fat layer exposed (CMS/HCC V24, CMS/HCC V28) Chronic osteomyelitis of hindfoot, left (CMS/HCC V24, CMS/HCC V28) CULTURE ANAEROBIC WITH GRAM STAIN Routine 08/23/2025 3:05 PM EDT Ulcer of toe of left foot, with fat layer exposed (CMS/HCC V24, CMS/HCC V28) Chronic osteomyelitis of hindfoot, left (CMS/HCC V24, CMS/HCC V28) CULTURE WOUND DEEP Routine 08/23/2025 3: 05 PM EDT Ulcer of toe of left foot, with fat layer exposed (CMS/HCC V24, CMS/HCC V28) Chronic osteomyelitis of hindfoot, left (CMS/HCC V24, CMS/HCC V28) CULTURE ANAEROBIC WITH GRAM STAIN Routine 08/23/2025 3:03 PM EDT Ulcer of toe of left foot, with fat layer exposed (CMS/HCC V24, CMS/HCC V28) Chronic osteomyelitis of hindfoot, left (CMS/HCC V24, CMS/HCC V28) CULTURE WOUND DEEP Routine 08/23/2025 3: 03 PM EDT Ulcer of toe of left foot, with fat layer exposed (CMS/HCC V24, CMS/HCC V28) Chronic osteomyelitis of hindfoot, left (CMS/HCC V24, CMS/HCC V28) MA TRF/REARNG ADJACENT TISS DEFECT FRHD/CHEEKS/CHIN/MTH /NECK/AX <=10SQCM 08/23/2025 2:41 PM EDT Ulcer of toe of left foot, with fat layer exposed (CMS/HCC V24, CMS/HCC V28) Chronic osteomyelitis of hindfoot, left (CMS/HCC V24, CMS/HCC V28) Case Notes MINI C-ARM,CONMED MA PARTIAL EXCISION BONE PHALANX OF TOE 08/23/2025 2:41 PM EDT Ulcer of toe of left foot, with fat layer exposed (CMS/HCC V24, CMS/HCC V28) Chronic osteomyelitis of hindfoot, left (CMS/HCC V24, CMS/HCC V28) Case Notes MINI C-ARM,CONMED MA OSTECTOMY COMPLETE EXCISION FIFTH METATARSAL HEAD 08/23/2025 2:41 PM EDT Ulcer of toe of left foot, with fat layer exposed (CMS/HCC V24, CMS/HCC V28) Chronic osteomyelitis of hindfoot, left (CMS/HCC V24, CMS/HCC V28) Case Notes MINI C-ARM,CONMED B-TYPE NATRIURETIC PEPTIDE Routine 08/23/2025 12:24 PM EDT POCT GLUCOSE BLOOD Routine 08/23/2025 11:07 AM EDT PEP THERAPY Routine 08/23/2025 8:01 AM EDT POCT GLUCOSE BLOOD Routine 08/23/2025 7: 58 AM EDT PEP THERAPY Routine 08/23/2025 6:57 AM EDT CBC WITH AUTO DIFFERENTIAL Routine 08/23/2025 6:04 AM EDT MAGNESIUM Routine 08/23/2025 6:04 AM EDT BASIC METABOLIC PANEL Routine 08/23/2025 6:04 AM EDT CBC AND DIFFERENTIAL Routine 08/23/2025 6:04 AM EDT POCT GLUCOSE BLOOD Routine 08/22/2025 7: 57 PM EDT POCT GLUCOSE BLOOD Routine 08/22/2025 4: 50 PM EDT CULTURE BLOOD STAT 08/22/2025 2:06 PM EDT CULTURE BLOOD STAT 08/22/2025 2:06 PM EDT XR CHEST 1 VIEW STAT 08/22/2025 1:57 PM EDT PEP THERAPY Routine 08/22/2025 1:34 PM EDT RESPIRATORY VIRUS PANEL MOLECULAR STUDY Routine 08/22/2025 1:33 PM EDT POCT GLUCOSE BLOOD Routine 08/22/2025 1: 24 PM EDT POCT GLUCOSE BLOOD Routine 08/22/2025 11:11 AM EDT POCT GLUCOSE BLOOD Routine 08/22/2025 8: 30 AM EDT CBC WITH AUTO DIFFERENTIAL Routine 08/22/2025 5:55 AM EDT MAGNESIUM Routine 08/22/2025 5:55 AM EDT BASIC METABOLIC PANEL Routine 08/22/2025 5:55 AM EDT CBC AND DIFFERENTIAL Routine 08/22/2025 5:55 AM EDT POCT GLUCOSE BLOOD Routine 08/22/2025 2: 30 AM EDT MRSA PCR STAT 08/21/2025 11:10 PM EDT POCT GLUCOSE BLOOD Routine 08/21/2025 8: 50 PM EDT MR FOOT WO AND W CONTRAST LEFT Routine 08/21/2025 6:11 PM EDT POCT GLUCOSE BLOOD Routine 08/21/2025 4: 45 PM EDT POCT GLUCOSE BLOOD Routine 08/21/2025 4: 32 PM EDT POCT GLUCOSE BLOOD Routine 08/21/2025 12:02 PM EDT POCT GLUCOSE BLOOD Routine 08/21/2025 8: 07 AM EDT MAGNESIUM Routine 08/21/2025 7:56 AM EDT CBC WITH AUTO DIFFERENTIAL Routine 08/21/2025 7:56 AM EDT CBC AND DIFFERENTIAL Routine 08/21/2025 7:56 AM EDT BASIC METABOLIC PANEL Routine 08/21/2025 7:56 AM EDT XR CHEST 2 VIEWS STAT 08/21/2025 3:20 AM EDT XR FOOT 3+ VIEWS LEFT STAT 08/21/2025 3:20 AM EDT SEDIMENTATION RATE Add-On 08/21/2025 12:20 AM EDT C-REACTIVE PROTEIN Add-On 08/21/2025 12:20 AM EDT CBC WITH AUTO DIFFERENTIAL STAT 08/21/2025 12:20 AM EDT ACTIVATED PARTIAL THROMBOPLASTIN TIME STAT 08/21/2025 12:20 AM EDT PROTHROMBIN TIME WITH INR STAT 08/21/2025 12:20 AM EDT CBC AND DIFFERENTIAL STAT 08/21/2025 12:20 AM EDT LACTATE, WITH REFLEX STAT 08/21/2025 12:20 AM EDT COMPREHENSIVE METABOLIC PANEL STAT 08/21/2025 12:20 AM EDT CULTURE BLOOD STAT 08/21/2025 12:20 AM EDT CULTURE BLOOD STAT 08/21/2025 12:20 AM EDT MA CRITICAL CARE 30-74 MINUTES Routine 08/20/2025 8:02 PM EDT DEBRIDEMENT Routine 08/15/2025 2:15 PM EDT Type 2 diabetes mellitus with foot ulcer (CODE) (CMS/HCC V24, CMS/HCC V28) 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 without evidence of necrosis (CMS/HCC V24, CMS/HCC V28) DEBRIDEMENT Routine 08/08/2025 2:15 PM EDT Type 2 diabetes mellitus with foot ulcer (CODE) (CMS/HCC V24, CMS/HCC V28) DEBRIDEMENT Routine 08/02/2025 2:15 PM EDT Type 2 diabetes mellitus with foot ulcer (CODE) (CMS/HCC V24, CMS/HCC V28) Non-pressure chronic ulcer of other part of left foot with fat layer exposed (CMS/HCC V24, CMS/HCC V28) Type 2 diabetes mellitus with polyneuropathy (CMS/HCC V24, CMS/HCC V28) DEBRIDEMENT Routine 07/26/2025 10:00 AM EDT Type 2 diabetes mellitus with foot ulcer (CODE) (CMS/HCC V24, CMS/HCC V28) Non-pressure chronic ulcer of other part of left foot with fat layer exposed (CMS/HCC V24, CMS/HCC V28) Type 2 diabetes mellitus with polyneuropathy (CMS/HCC V24, CMS/HCC V28) DEBRIDEMENT Routine 07/18/2025 2:45 PM EDT Type 2 diabetes mellitus with foot ulcer (CODE) (CMS/HCC V24, CMS/HCC V28) Non-pressure chronic ulcer of other part of left foot with fat layer exposed (CMS/HCC V24, CMS/HCC V28) DEBRIDEMENT Routine 07/11/2025 2:45 PM EDT [...] fat layer exposed (CMS/HCC V24, CMS/HCC V28) MG MAMMO DIGITAL SCREENING W JOHN BILAT Routine 06/28/2025 2:35 PM EDT Encounter for screening mammogram for malignant neoplasm of breast HEPATITIS C SCREENING Routine 08/24/2017 HIV SCREENING Routine 08/24/2017 PAP SMEAR Routine 07/17/2015 from Last 3 Months or Most Recently Relevant to Health Maintenance Results * XR Foot 3+ Views Left (09/23/2025 12:57 PM EST) Only the most recent of3 resultswithin the time period is included. Anatomical Region Laterality Modality Lower Extremities, Foot Left Computed Radiography Narrative 09/23/2025 6:56 PM EST Left foot 3 views weightbearing:Recent bony debridement of the fifth metatarsal and base of the proximal phalanx without any signs of subcutaneous gas or further infection or osteolysis Joaquín Guan DPM IMG XR PROCEDURES Final Res ult * (ABNORMAL) POCT Glucose, blood (08/28/2025 11:08 AM EDT) Only the most recent of33 resultswithin the time period is included. [facility] Glucose POCT 218(H) 70 - 100 mg/dL 08/28/2025 11:17 AM EDT [facility] Blood Capillary blood specimen / Unknown 08/28/2025 11:08 AM EDT 08/28/2025 11:19 AM EDT Pepe Hunt MD LAB POINT OF CARE TE ST DOCKED DEVICE UNSOLICITED RESULTS Final Result [facility] [address] [place] [address], [place] [phone] * Basic metabolic panel (08/28/2025 5:53 AM EDT) Only the most recent of7 resultswithin the time period is included. Sodium 139 133 - 145 mmol/L LAB CHEMISTRY METHOD 08/28/2025 7:46 AM EDT [facility] Potassium 3.5 3.5 - 5.5 mmol/L LAB CHEMISTRY METHOD 08/28/2025 7:46 AM EDT [facility] Chloride 103 96 - 110 mmol/L LAB CHEMISTRY METHOD 08/28/2025 7:46 AM EDT [facility] CO2 30 21 - 32 mmol/L LAB CHEMISTRY METHOD 08/28/2025 7:46 AM [facility] Anion Gap 6 3 - 11 LAB CHEMISTRY METHOD 08/28/2025 7:46 AM [facility] Glucose 99 70 - 100 mg/dL LAB CHEMISTRY METHOD 08/28/2025 7:46 AM [facility] BUN 17 5 - 25 mg/dL LAB CHEMISTRY METHOD 08/28/2025 7:46 AM [facility] Creatinine 1.02 0.50 - 1.10 mg/dL LAB CHEMISTRY METHOD 08/28/2025 7:46 AM [facility] eGFR 66 >=60 mL/min/1. 73m2 LAB CHEMISTRY METHOD 08/28/2025 7:46 AM [facility] Comment:Calculation based on the Chronic Kidney Disease Epidemiology Collaboration (CKD-EPI) equation refit without adjustment for race. BUN/Creatinine Ratio 16.7 LAB CHEMISTRY METHOD 08/28/2025 7:46 AM [facility] Calcium 9.5 8.5 - 10.5 mg/dL LAB CHEMISTRY METHOD 08/28/2025 7:46 AM [facility] Blood Venous blood specimen / Unknown Venipuncture / Unknown 08/28/2025 5:53 AM EDT 08/28/2025 6:55 AM EDT us Pepe Hunt MD LAB BLOOD ORDERABLES Final Re sult [facility] [address] [place] [address], * Lavender tube (08/28/2025 5:51 AM EDT) Extra Tube Hold for add-ons. 08/28/2025 8:01 AM T [facility] Comment:Auto resulted. Blood Venous blood specimen / Unknown Venipuncture / Unknown 08/28/2025 5:51 AM EDT 08/28/2025 6:56 AM EDT us Pepe Hunt MD LAB BLOOD ORDERABLES Final Re sult [facility] [address] [place] [address], [place] [phone] * (ABNORMAL) CBC auto differential (08/26/2025 6:13 AM EDT) Only the most recent of7 resultswithin the time period is included. WBC 6.4 4.8 - 10.8 K/mcL LAB HEMETOLOGY METHOD 08/26/2025 6:31 AM [facility] RBC 3.60(L) 3.80 - 4.80 M/mcL LAB HEMETOLOGY METHOD 08/26/2025 6:31 AM [facility] Hemoglobin 10.1(L) 11.5 - 16.0 g/dL LAB HEMETOLOGY METHOD 08/26/2025 6:31 AM [facility] Hematocrit 31.9(L) 35.0 - 47.0 % LAB HEMETOLOGY METHOD 08/26/2025 6:31 AM [facility] MCV 89.1 79.0 - 98.0 FL LAB HEMETOLOGY METHOD 08/26/2025 6:31 AM [facility] MCH 28.2 27.0 - 32.0 pcg LAB HEMETOLOGY METHOD 08/26/2025 6:31 AM [facility] MCHC 31.7(L) 32.0 - 37.0 g/dL LAB HEMETOLOGY METHOD 08/26/2025 6:31 AM [facility] RDW 13.4 11.0 - 15.0 % LAB HEMETOLOGY METHOD 08/26/2025 6:31 AM [facility] Platelets 217 130 - 400 K/mcL LAB HEMETOLOGY METHOD 08/26/2025 6:31 AM [facility] MPV 10.5 7.0 - 11.0 FL LAB HEMETOLOGY METHOD 08/26/2025 6:31 AM [facility] NRBC 0.0 <1.0 % LAB HEMETOLOGY METHOD 08/26/2025 6:31 AM [facility] NRBC Absolute 0.00 <0.10 K/mcL LAB HEMETOLOGY METHOD 08/26/2025 6:31 AM [facility] Neutrophils Relative 57.6 % LAB HEMETOLOGY METHOD 08/26/2025 6:31 AM [facility] Lymphocytes Relative 26.7 % LAB HEMETOLOGY METHOD 08/26/2025 6:31 AM [facility] Monocytes Relative 9.0 % LAB HEMETOLOGY METHOD 08/26/2025 6:31 AM [facility] Eosinophils Relative 6.1 % LAB HEMETOLOGY METHOD 08/26/2025 6:31 AM [facility] Basophils Relative 0.3 % LAB HEMETOLOGY METHOD 08/26/2025 6:31 AM [facility] Immature Granulocytes Relative 0.3 % LAB HEMETOLOGY METHOD 08/26/2025 6:31 AM [facility] Neutrophils Absolute 3.70 1.50 - 7.00 K/mcL LAB HEMETOLOGY METHOD 08/26/2025 6:31 AM [facility] Lymphocytes Absolute 1.72 1.00 - 5.00 K/mcL LAB HEMETOLOGY METHOD 08/26/2025 6:31 AM [facility] Monocytes Absolute 0.58 0.20 - 1.00 K/mcL LAB HEMETOLOGY METHOD 08/26/2025 6:31 AM [facility] Eosinophils Absolute 0.39 0.00 - 0.50 K/mcL LAB HEMETOLOGY METHOD 08/26/2025 6:31 AM EDT [facility] Basophils Absolute 0.02 0.00 - 0.20 K/mcL LAB HEMETOLOGY METHOD 08/26/2025 6:31 AM EDT [facility] Immature Granulocytes Absolute 0.02 0.00 - 0.03 K/[facility] LAB HEMETOLOGY METHOD 08/26/2025 6:31 AM EDT [facility] Blood Venous blood specimen / Unknown Venipuncture / Unknown 08/26/2025 6:13 AM EDT 08/26/2025 6:16 AM EDT Sofia Wilson MD LAB BLOOD ORDERABLES Final R esult Performing Organization Address City/[facility]/ZIP Co de Phone Number [facility] [address] [place] [address], [place] [phone] * Magnesium (08/24/2025 5:42 AM EDT) Only the most recent of4 resultswithin the time period is included. Magnesium 1.9 1.9 - 2.6 mg/dL LAB CHEMISTRY METHOD 08/24/2025 10:41 AM EDT [facility] Blood Venous blood specimen / Unknown Venipuncture / Unknown 08/24/2025 5:42 AM EDT 08/24/2025 6:57 AM EDT Lottie Watkins NP LAB BLOOD ORDERABLES Final Resul t Performing Organization Address City/[facility]/ZIP Co de Phone Number [facility] [address] [place] [address], [place] [phone] * Tissue exam (08/23/2025 3:06 PM EDT) Final Diagnosis A. Foot, Left, 5th proximal phalanx clean margin: -VIABLE APPEARING BONE B. Foot, Left, 5th metatarsal clean margin: -VIABLE APPEARING BONE 08/28/2025 12:14 PM EDT [facility] at 1214 EDT Gross Description A. Foot, Left, 5th proximal phalanx clean margin: Labeled left foot foot R1 ID 1 . Received in formalin is a 1.1 cm in length and up to 0.6 cm in width portion of bone which is inked red at the smooth bony margin. The bony margin is removed and submitted en face in one cassette, one piece, following decalcificati on. B. Foot, Left, 5th metatarsal clean margin: Labeled left foot foot L ID 2 . Received in formalin is a focally disrupted 1.4 x 1.0 x 0.9 cm portion of bone with a smooth white articular coverage metatarsal head. There is minimal attached blood clot. The smooth bony margin is inked red and removed en face and submitted in one cassette, one piece, following decalcificati on. TS 08/28/2025 12:14 PM EDT [facility] Disclaimer Unless otherwise specified, all tissue is 10% NB formalin fixed and paraffin embedded. 08/28/2025 12:14 PM EDT [facility] Bone Structure of left foot / Unknown 08/23/2025 3:06 PM EDT 08/26/2025 7:41 AM EDT Specimen from bone (specimen) Structure of left foot / Unknown 08/23/2025 3:07 PM EDT 08/26/2025 7:41 AM EDT Joaquín Guan DP LAB PATHOLOGY ORDERABLES Fi nal Result [facility] [address] [place] [address], * Culture anaerobic with gram stain (08/23/2025 3:05 PM EDT) Only the most recent of2 resultswithin the time period is included. Culture, Anaerobic No Growth of Anaerobes. 08/28/2025 7:58 AM EDT [facility] Gram Stain Result Refer to Aerobic culture for gram stain results. 08/28/2025 7:58 AM EDT [facility] Swab Structure of left foot / Unknown 08/23/2025 3:05 PM EDT 08/23/2025 3:26 PM EDT Joaquín Guan [facility] LAB MICROBIOLOGY - GENERAL ORDERABLES Final Result Performing Organization Address [facility] Co de Phone Number [facility] [address] [place] [address], [place] [phone] * (ABNORMAL) Culture wound deep (08/23/2025 3:05 PM EDT) Only the most recent of2 resultswithin the time period is included. Culture, Wound Streptococcus viridans group(A) 08/27/2025 11:03 AM EDT [facility] Comment: Susceptibility testing not routinely performed. If further therapeutic information is required, please consult an infectious disease specialist. The organism value for this result has been updated. These results have been appended to the previously preliminary verified report. This is an edited result. Previous organism was Gram Positive Cocci on 08/26/2025 at 1107 EDT. Gram Stain Result No polymorphonuclear leukocytes, No epithelial cells, and No organisms noted 08/27/2025 11:03 AM EDT [facility] Swab Structure of left foot / Unknown 08/23/2025 3:05 PM EDT 08/23/2025 3:26 PM EDT Joaquín Guan [facility] LAB MICROBIOLOGY - GENERAL ORDERABLES Final Result Performing Organization Address [facility]/ZIP Co de Phone Number [facility] [address] [place] [address], [place] [phone] * (ABNORMAL) B-type natriuretic peptide (08/23/2025 12:24 PM EDT) BNP 274(H) <=100 pcg/mL LAB CHEMISTRY METHOD 08/23/2025 1:22 PM EDT [facility] Blood Venous blood specimen / Unknown Venipuncture / Unknown 08/23/2025 12:24 PM EDT 08/23/2025 12:31 PM EDT Lottie Watkins NP LAB BLOOD ORDERABLES Final Resul t Performing Organization Address [facility]/ZIP Co de Phone Number [facility] [address] [place] [address], [place] [phone] * Culture blood (08/22/2025 2:06 PM EDT) Only the most recent of4 resultswithin the time period is included. Culture, Blood No growth at 5 days 08/27/2025 3:01 PM EDT [facility] Blood Venous blood specimen / Unknown Venipuncture / Unknown 08/22/2025 2:06 PM EDT 08/22/2025 2:15 PM EDT Lottie Watkins NP LAB MICROBIOLOGY - GENERAL ORDER EMILIE Final Result Performing Organization Address [facility] de Phone Number [facility] [address] [place] [address], [place] [phone] * XR Chest 1 View (08/22/2025 1:57 PM EDT) Anatomical Region Laterality Modality Body Radiographic Ritika ging 08/22/2025 2:00 PM EDT Impressions 08/22/2025 2:01 PM EDT FINDINGS/IMPRESSION: Multifocal opacities throughout the lungs compatible with infectious/inflammatory process. Pulmonary edema could also have this appearance. Postoperative mediastinum and coronary artery bypass graft changes. Trace left effusion. -------- FINAL REPORT -------- Dictated By: Lucrecia Maravilla Dictated Date: 08/22/2025 14:00 ET Assigned Physician: Lucrecia Maravilla Reviewed and Electronically Signed By: Lucrecia Maravilla Signed Date: 08/22/2025 14:01 ET Workstation ID: [id number] Transcribed By: Self Edit Transcribed Date: 08/22/2025 14:00 ET Narrative 08/22/2025 2:01 PM EDT XR CHEST 1 VIEW INDICATION: fever fever cough/r/o pneumonia TECHNIQUE: XR CHEST 1 VIEW COMPARISON: No priors available. Procedure Note Lucrecia Maravilla MD - 08/22/2025 XR CHEST 1 VIEW INDICATION: fever fever cough/r/o pneumonia TECHNIQUE: XR CHEST 1 VIEW COMPARISON: No priors available. IMPRESSION: FINDINGS/IMPRESSION: Multifocal opacities throughout the lungs compatiblewith infectious/inflammatory process. Pulmonary edema could also havethis appearance. Postoperative mediastinum and coronary artery bypassgraft changes. Trace left effusion. 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 XR PROCEDURES Final Result * Respiratory virus panel molecular study (08/22/2025 1:33 PM EDT) Pathologist [facility] Adenovirus Detection by PCR Not Detected Not Detected LAB MICROBIOLOGY METHOD 08/22/2025 2:42 PM EDT [facility] Influenza A PCR Not Detected Not Detected LAB MICROBIOLOGY METHOD 08/22/2025 2:42 PM EDT [facility] Influenza B PCR Not Detected Not Detected LAB MICROBIOLOGY METHOD 08/22/2025 2:42 PM EDT [facility] Coronavirus 229E Not Detected Not Detected LAB MICROBIOLOGY METHOD 08/22/2025 2:42 PM EDT [facility] Coronavirus HKU1 Not Detected Not Detected LAB MICROBIOLOGY METHOD 08/22/2025 2:42 PM EDT [facility] Coronavirus OC43 Not Detected Not Detected LAB MICROBIOLOGY METHOD 08/22/2025 2:42 PM EDT [facility] Coronavirus NL63 Not Detected Not Detected LAB MICROBIOLOGY METHOD 08/22/2025 2:42 PM EDT [facility] Parainfluenza Virus 1 Not Detected Not Detected LAB MICROBIOLOGY METHOD 08/22/2025 2:42 PM EDT [facility] Parainfluenza Virus 2 Not Detected Not Detected LAB MICROBIOLOGY METHOD 08/22/2025 2:42 PM EDT [facility] Parainfluenza Virus 3 Not Detected Not Detected LAB MICROBIOLOGY METHOD 08/22/2025 2:42 PM EDT [facility] Parainfluenza Virus 4 Not Detected Not Detected LAB MICROBIOLOGY METHOD 08/22/2025 2:42 PM EDT [facility] RSV PCR Not Detected Not Detected LAB MICROBIOLOGY METHOD 08/22/2025 2:42 PM EDT [facility] Human Metapneumovirus A and B Not Detected Not Detected LAB MICROBIOLOGY METHOD 08/22/2025 2:42 PM EDT [facility] Rhinovirus/Entero virus Not Detected Not Detected LAB MICROBIOLOGY METHOD 08/22/2025 2:42 PM EDT [facility] Bordetella pertussis Not Detected Not Detected LAB MICROBIOLOGY METHOD 08/22/2025 2:42 PM EDT [facility] Bordetella parapertussis Not Detected Not Detected LAB MICROBIOLOGY METHOD 08/22/2025 2:42 PM EDT [facility] Mycoplasma pneumo by PCR Not Detected Not Detected LAB MICROBIOLOGY METHOD 08/22/2025 2:42 PM EDT [facility] Chlamydia pneumoniae Not Detected Not Detected LAB MICROBIOLOGY METHOD 08/22/2025 2:42 PM EDT [facility] SARS COV-2 Not Detected Not Detected LAB MICROBIOLOGY METHOD 08/22/2025 2:42 PM EDT [facility] Swab Both anterior nares / Unknown Non-blood Collection / Unknown 08/22/2025 1:33 PM EDT 08/22/2025 1:47 PM EDT Narrative [facility] - 08/22/2025 2:42 PM EDT Testing was performed using the [employer] Respiratory Pathogen PCR Assay. All results must be correlated with the clinical findings. Results should not be used as the sole basis for diagnosis. False Negative results may occur from the presence of sequence variants in the region targeted by the assay or the presence of inhibitors. Results may be affected by concurrent antiviral/antimicrobial therapy or levels of organisms that are below the limit of detection. Lottie Watkins NP LAB MICROBIOLOGY - GENERAL ORDER EMILIE Final Result Performing Organization Address [facility]/ZIP Co de Phone Number [facility] [address] [place] [address], [place] [phone] * MRSA molecular study (08/21/2025 11:10 PM EDT) [facility] MRSA Screen PCR Not Detected Not Detected LAB MICROBIOLOGY METHOD 08/22/2025 12:38 AM EDT [facility] Swab Both anterior nares / Unknown Non-blood Collection / Unknown 08/21/2025 11:10 PM EDT 08/21/2025 11:23 PM EDT Dusty Fraire MD LAB MICROBIOLOGY - GENERAL ORDERABLES Final Result [facility] [address] [place] [address], [place] [phone] * MR Foot wo and w Contrast Left (08/21/2025 6:11 PM EDT) Anatomical Region Laterality Modality Lower Extremities, Foot Left Magnetic Resonance 08/21/2025 8:08 PM EDT Impressions 08/21/2025 8:08 PM EDT Impression: 1. Left foot cellulitis. Soft tissue ulcer/wound in the lateral plantar soft tissues adjacent to the 5th MTP joint.Small 1.0 x 0.9 x 0.7 cm soft tissue abscess underlying the ulcer/wound and extending to the head of the 5th metatarsal. Osteomyelitis of the 5th metatarsal and 5th proximal phalanx with septic 5th MTP joint. This document has been electronically signed by: Socorro Snyder MD on 08/21/2025 20:08:19 Narrative 08/21/2025 8:08 PM EDT INDICATION: osteomyelitis Exam: MRI of the left foot with and without contrast . Procedure: Contrast was administered. Comparison: 08/21/2025, 07/02/2025 Clinical history: Osteomyelitis. Findings: Exam limited by motion. Subcutaneous fat of the foot most prominent in the lateral side consistent with a severe cellulitis. Soft tissue ulcer/wound is seen in the lateral plantar soft tissues adjacent to the 5th MTP joint. Small 1.0 x 0.9 x 0.7 cm soft tissue abscess underlying the ulcer/wound and extending to the head of the 5th metatarsal. Abnormal signal and enhancement of the 5th metatarsal and 5th proximal phalanx consistent with osteomyelitis and septic 5th MTP joint. 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 Arthritis of the talonavicular joint and at the 3rd 4th and 5th TMT joints. Procedure Note Socorro Snyder MD - 08/21/2025 INDICATION: osteomyelitis Exam: MRI of the left foot with and without contrast . Procedure: Contrast was administered. Comparison: 08/21/2025, 07/02/2025 Clinical history: Osteomyelitis. Findings: Exam limited by motion. Subcutaneous fat of the foot most prominent in the lateral sideconsistent with a severe cellulitis. Soft tissue ulcer/wound is seen in the lateral plantar soft tissues adjacent to the 5th MTP joint. Small 1.0 x 0.9 x 0.7 cm soft tissue abscess underlying the ulcer/wound and extending to the head of the 5th metatarsal. Abnormal signal and enhancement of the 5th metatarsal and 5th proximal phalanx consistent with osteomyelitis and septic 5th MTP joint. 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 Arthritis of the talonavicular joint and at the 3rd 4th and 5th TMTjoints. IMPRESSION: Impression: 1. Left foot cellulitis. Soft tissue ulcer/wound in the lateral plantar soft tissues adjacent to the 5th MTP joint.Small 1.0 x 0.9 x 0.7 cm soft tissue abscess underlying the ulcer/wound and extending to the head ofthe 5th metatarsal. Osteomyelitis of the 5th metatarsal and 5th proximal phalanx with septic 5th MTP joint. This document has been electronically signed by: Socorro Snyder MD on 08/21/2025 20:08:19 Joanne MIKE IMG MRI PROCEDURES Final Res ult * XR Chest 2 Views (08/21/2025 3:20 AM EDT) Anatomical Region Laterality Modality Body Radiographic Ritika ging 08/21/2025 9:31 AM EDT Impressions 08/21/2025 9:32 AM EDT Impression: 1. Stable borderline cardiomegaly status post coronary artery surgery. 2. Lungs grossly clear. Telepaul MIKE ([id number]) -------- FINAL REPORT -------- Dictated By: Tawanna Knott Dictated Date: 08/21/2025 09:31 ET Assigned Physician: Tawanna Knott Reviewed and Electronically Signed By: Tawanna Knott Signed Date: 08/21/2025 09:32 ET Workstation ID: [id number] Transcribed By: Self Edit Transcribed Date: 08/21/2025 09:31 ET Narrative 08/21/2025 9:32 AM EDT History: Hypoxia. Comparison: 02/12/25 Findings: Portable AP upright chest at 3:17 AM. The cardiac silhouette remains borderline enlarged. Sternal sutures and mediastinal clips are consistent with coronary artery surgery. The pulmonary vascularity is within normal limits. The lungs are grossly clear. Procedure Note Tawanna Knott MD - 08/21/2025 History: Hypoxia. Comparison: 02/12/25 Findings: Portable AP upright chest at 3:17 AM. The cardiac silhouette remainsborderline enlarged. Sternal sutures and mediastinal clips are consistentwith coronary artery surgery. The pulmonary vascularity is within normallimits. The lungs are grossly clear. IMPRESSION: Impression: 1. Stable borderline cardiomegaly status post coronary artery surgery. 2. Lungs grossly clear. Telerad RASHID ([id number]) -------- FINAL REPORT -------- Dictated By: Tawanna Knott Dictated Date: 08/21/2025 09:31 ET Assigned Physician: Tawanna Knott Reviewed and Electronically Signed By: Tawanna Knott Signed Date: 08/21/2025 09:32 ET Workstation ID: [id number] Transcribed By: Self Edit Transcribed Date: 08/21/2025 09:31 ET Codey Daniels MD IMG XR PROCEDURES Final Resu lt * Lactate, with Reflex (08/21/2025 12:20 AM EDT) [facility] LACTIC ACID 1.1 0.4 - 2.0 mmol/L LAB CHEMISTRY METHOD 08/21/2025 12:57 AM EDT [facility] Blood Venous blood specimen / Unknown Venipuncture / Unknown 08/21/2025 12:20 AM EDT 08/21/2025 12:26 AM EDT Codey Daniels MD LAB BLOOD ORDERABLES Final R esult Performing Organization Address City/[facility] Co de Phone Number [facility] [address] [place] [address], [place] [phone] * APTT (08/21/2025 12:20 AM EDT) Pathologist [facility] aPTT 30.3 24.1 - 39.3 sec LAB COAGULATION METHOD 08/21/2025 2:19 AM EDT [facility] Blood Venous blood specimen / Unknown Venipuncture / Unknown 08/21/2025 12:20 AM EDT 08/21/2025 12:26 AM EDT Codey Daniels MD LAB BLOOD ORDERABLES Final R esult [facility] [address] [place] [address], [place] [phone] * (ABNORMAL) Sedimentation rate (08/21/2025 12:20 AM EDT) [facility] Sed Rate 63(H) 0 - 30 mm/hr LAB HEMETOLOGY METHOD 08/21/2025 6:21 AM EDT [facility] Blood Venous blood specimen / Unknown Venipuncture / Unknown 08/21/2025 12:20 AM EDT 08/21/2025 12:26 AM EDT Joanne MIKE LAB BLOOD ORDERABLES Final R esult Performing Organization Address City/[facility]/ZIP Co de Phone Number [facility] [address] [place] [address], * Protime-INR (08/21/2025 12:20 AM EDT) [facility] Protime 12.5 10.6 - 13.9 sec LAB COAGULATION METHOD 08/21/2025 2:20 AM EDT [facility] INR 1.0 LAB COAGULATION METHOD 08/21/2025 2:20 AM EDT [facility] Blood Venous blood specimen / Unknown Venipuncture / Unknown 08/21/2025 12:20 AM EDT 08/21/2025 12:26 AM EDT Codey Daniels MD LAB BLOOD ORDERABLES Final R esult [facility] [address] [place] [address], [place] [phone] * (ABNORMAL) C-reactive protein (08/21/2025 12:20 AM EDT) [facility] C-Reactive Protein 5.18(H) <=0.50 mg/dL LAB CHEMISTRY METHOD 08/21/2025 6:26 AM [facility] Blood Venous blood specimen / Unknown Venipuncture / Unknown 08/21/2025 12:20 AM EDT 08/21/2025 12:26 AM EDT us Joanne MIKE LAB BLOOD ORDERABLES Final R esult [facility] [address] [place] [address], * (ABNORMAL) Comprehensive Metabolic Panel (CMP) (08/21/2025 12:20 AM EDT) Sodium 137 133 - 145 mmol/L LAB CHEMISTRY METHOD 08/21/2025 12:57 AM [facility] Potassium 3.2(L) 3.5 - 5.5 mmol/L LAB CHEMISTRY METHOD 08/21/2025 12:57 AM [facility] Chloride 101 96 - 110 mmol/L LAB CHEMISTRY METHOD 08/21/2025 12:57 AM [facility] CO2 29 21 - 32 mmol/L LAB CHEMISTRY METHOD 08/21/2025 12:57 AM [facility] Anion Gap 7 3 - 11 LAB CHEMISTRY METHOD 08/21/2025 12:57 AM [facility] Glucose 125(H) 70 - 100 mg/dL LAB CHEMISTRY METHOD 08/21/2025 12:57 AM [facility] BUN 16 5 - 25 mg/dL LAB CHEMISTRY METHOD 08/21/2025 12:57 AM [facility] Creatinine 0.98 0.50 - 1.10 mg/dL LAB CHEMISTRY METHOD 08/21/2025 12:57 AM [facility] eGFR 70 >=60 mL/min/1. 73m2 LAB CHEMISTRY METHOD 08/21/2025 12:57 AM [facility] Comment:Calculation based on the Chronic Kidney Disease Epidemiology Collaboration (CKD-EPI) equation refit without adjustment for race. BUN/Creatinine Ratio 16.3 LAB CHEMISTRY METHOD 08/21/2025 12:57 AM [facility] Calcium 9.5 8.5 - 10.5 mg/dL LAB CHEMISTRY METHOD 08/21/2025 12:57 AM [facility] AST (SGOT) 18 10 - 42 unit/L LAB CHEMISTRY METHOD 08/21/2025 12:57 AM [facility] ALT (SGPT) 23 10 - 60 unit/L LAB CHEMISTRY METHOD 08/21/2025 12:57 AM [facility] Alkaline Phosphatase 122(H) 42 - 121 unit/L LAB CHEMISTRY METHOD 08/21/2025 12:57 AM [facility] Total Protein 7.4 6.0 - 8.0 g/dL LAB CHEMISTRY METHOD 08/21/2025 12:57 AM [facility] Albumin 3.4 3.2 - 5.0 g/dL LAB CHEMISTRY METHOD 08/21/2025 12:57 AM [facility] Total Bilirubin 0.4 0.0 - 1.4 mg/dL LAB CHEMISTRY METHOD 08/21/2025 12:57 AM [facility] Blood Venous blood specimen / Unknown Venipuncture / Unknown 08/21/2025 12:20 AM EDT 08/21/2025 12:26 AM EDT us Codey Daniels MD LAB BLOOD ORDERABLES Final R esult [facility] [address] [place] [address], * [place] CRITICAL CARE 30-74 MINUTES (08/20/2025 8:02 PM EDT) Narrative Codey Daniels MD - 08/20/2025 8:02 PM EDT Codey Daniels MD 08/21/2025 6:10 AM Critical Care Performed by: Codey Daniels MD Authorized by: Codey Daniels MD Critical care provider statement: Critical care time (minutes): 36 Total face to face critical care time (minutes): 20 Critical care time was exclusive of: Separately billable procedures and treating other patients Critical care was necessary to treat or prevent imminent or life-threatening deterioration of the following conditions: Circulatory failure, shock and cardiac failure Critical care was time spent personally by me on the following activities: Development of treatment plan with patient or surrogate, discussions with consultants, evaluation of patient's response to treatment, ordering and review of laboratory studies, ordering and review of radiographic studies, re-evaluation of patient's condition, review of old charts, ordering and performing treatments and interventions and examination of patient Face to face critical care was time spent personally by me on the following activities: Obtaining history from patient or surrogate, evaluation of patient's response to treatment, re-evaluation of patient's condition, pulse oximetry, examination of patient, development of treatment plan with patient or surrogate, ordering and review of laboratory studies and ordering and review of radiographic studies I assumed direction of critical care for this patient from another provider in my specialty: no Care discussed with: admitting provider Comments: Anaphylaxis requiring IIM epinephrine, iv benadryl and fluids with multiple reassessments Codey Daniels MD IN CLINIC/BEDSIDE ORDERABLES Final Result * Debridement Diabetic Ulcer Left;Plantar (5th metatarsal) Foot (08/15/2025 2:15 PM EDT) Pavan Zamora MD - 08/15/2025 2:15 PM EDT Pavan Us MD 08/29/2025 8:37 AM Debridement Diabetic Ulcer Left;Plantar (5th metatarsal) Foot [...] Post Debridement: Fat layer exposed Time taken: 08/15/2025 2:20 PM Length (cm): 1.5 Width (cm): 1.6 Depth (cm): 0.6 Area (cm^2): 2.4 Time taken: 08/15/2025 2:21 PM Length (cm): 1.5 Width (cm): 1.6 Depth (cm): 0.6 Percent Debrided (%): 75 Surface Area (cm^2): 2.4 Area Debrided (cm^2): 1.8 Volume (cm^3): 1.44 Tissue and other material debrided: dermis, epidermis and subcutaneous tissue Devitalized tissue debrided: biofilm, callus, necrotic debris and slough Instrument: Curette Amount of bleeding: small Hemostasis obtained with: Pressure Procedural pain: 0 Post-procedural pain: 0 Response to treatment: Procedure was tolerated well us Shane MIKE IN CLINIC/BEDSIDE ORDERABLE S Final Result * Debridement Diabetic Ulcer Left;Plantar (5th metatarsal) Foot (08/08/2025 2:15 PM EDT) Pavan Zamora MD - 08/08/2025 2:15 PM EDT RASHID Hyde 08/08/2025 2:43 PM Debridement Diabetic Ulcer Left;Plantar (5th metatarsal) [...] Post Debridement: Fat layer exposed Time taken: 08/08/2025 2:12 PM Length (cm): 1.7 Width (cm): 1.7 Depth (cm): 0.6 Area (cm^2): 2.89 Time taken: 08/08/2025 2:13 PM Length (cm): 1.7 Width (cm): 1.7 Depth (cm): 0.6 Percent Debrided (%): 75 Surface Area (cm^2): 2.89 Area Debrided (cm^2): 2.17 Volume (cm^3): 1.73 Tissue and other material debrided: subcutaneous tissue Devitalized tissue debrided: callus and slough Instrument: Curette Amount of bleeding: none Hemostasis obtained with: Not applicable Procedural pain: 0 Post-procedural pain: 0 Response to treatment: Procedure was tolerated well Shane MIKE IN CLINIC/BEDSIDE ORDERABLE S Final Result * Debridement Diabetic Ulcer Left;Plantar (5th metatarsal) Foot (08/02/2025 2:15 PM EDT) Narrative Pavan Us MD - 08/02/2025 2:15 PM EDT RASHID Hyde 08/02/2025 2:49 PM Debridement Diabetic Ulcer Left;Plantar (5th metatarsal) [...] Post Debridement: Fat layer exposed Time taken: 08/02/2025 2:16 PM Length (cm): 1.5 Width (cm): 1.5 Depth (cm): 0.4 Area (cm^2): 2.25 Time taken: 08/02/2025 2:17 PM Length (cm): 1.5 Width (cm): 1.5 Depth (cm): 0.4 Percent Debrided (%): 75 Surface Area (cm^2): 2.25 Area Debrided (cm^2): 1.69 Volume (cm^3): 0.9 Tissue and other material debrided: dermis, epidermis and subcutaneous tissue Devitalized tissue debrided: biofilm, callus and slough Instrument: Curette Amount of bleeding: none Hemostasis obtained with: Not applicable Procedural pain: 0 Post-procedural pain: 0 Response to treatment: Procedure was tolerated well Shane MIKE IN CLINIC/BEDSIDE ORDERABLE S Final Result * Debridement Diabetic Ulcer Left;Plantar (5th metatarsal) Foot (07/26/2025 10:00 AM EDT) Narrative Pavan Us MD - 07/26/2025 10:00 AM EDT RASHID Hyde 07/26/2025 10:43 AM Debridement Diabetic Ulcer Left;Plantar (5th metatarsal) Foot [...] Post Debridement: Fat layer exposed Time taken: 07/26/2025 10:10 AM Length (cm): 1.8 Width (cm): 1.9 Depth (cm): 0.4 Area (cm^2): 3.42 Time taken: 07/26/2025 10:11 AM Length (cm): 1.8 Width (cm): 1.9 Depth (cm): 0.4 Percent Debrided (%): 75 Surface Area (cm^2): 3.42 Area Debrided (cm^2): 2.57 Volume (cm^3): 1.37 Tissue and other material debrided: dermis, epidermis and subcutaneous tissue Devitalized tissue debrided: biofilm, callus and slough Instrument: Curette Amount of bleeding: none Hemostasis obtained with: Not applicable Procedural pain: 0 Post-procedural pain: 0 Response to treatment: Procedure was tolerated well us Shane MIKE IN CLINIC/BEDSIDE ORDERABLE S Final Result * Debridement Diabetic Ulcer Left;Plantar (5th metatarsal) Foot (07/18/2025 2:45 PM EDT) Pavan Zamora MD - 07/18/2025 2:45 PM EDT RASHID Hyde 07/18/2025 3:21 PM Debridement Diabetic Ulcer Left;Plantar (5th metatarsal) [...] Post Debridement: Fat layer exposed Time taken: 07/18/2025 3:04 PM Length (cm): 1.7 Width (cm): 2 Depth (cm): 0.3 Area (cm^2): 3.4 Time taken: 07/18/2025 3:05 PM Length (cm): 1.7 Width (cm): 2 Depth (cm): 0.3 Percent Debrided (%): 100 Surface Area (cm^2): 3.4 Area Debrided (cm^2): 3.4 Volume (cm^3): 1.02 Tissue and other material debrided: dermis, epidermis and subcutaneous tissue Devitalized tissue debrided: biofilm, callus and slough Instrument: Curette Amount of bleeding: none Hemostasis obtained with: Not applicable Procedural pain: 0 Post-procedural pain: 0 Response to treatment: Procedure was tolerated well us Shane MIKE IN CLINIC/BEDSIDE ORDERABLE S Final Result * Debridement Diabetic Ulcer Left;Plantar (5th metatarsal) Foot (07/11/2025 2:45 PM EDT) Pavan Zamora MD - 07/11/2025 2:45 PM EDT RASHID Hyde 07/11/2025 3:35 PM Debridement Diabetic Ulcer Left;Plantar (5th metatarsal) [...] Post Debridement: Fat layer exposed Time taken: 07/11/2025 2:53 PM Length (cm): 1.9 Width (cm): 2 Depth (cm): 0.3 Area (cm^2): 3.8 Time taken: 07/11/2025 2:54 PM Length (cm): 1.9 Width (cm): 2 Depth (cm): 0.3 Percent Debrided (%): 100 Surface Area (cm^2): 3.8 Area Debrided (cm^2): 3.8 Volume (cm^3): 1.14 Tissue and other material debrided: dermis, epidermis [...] IN CLINIC/BEDSIDE ORDERABLE S Final Result * MG Mammo Digital Screening w John [...] for biopsy. PQRI CPT II 3342F Code 65950, 36644 PQRI 225 CPT II 7025F TISSUE DENSITY: There are scattered areas of fibroglandular density. (BI-RADS category B) IMPRESSION: Benign. BI-RADS CATEGORY: 2 - BENIGN RECOMMENDATION: Screening bilateral mammogram is recommended in 1 year. Mammo Location: [facility], [address] [place] [address] -------- FINAL REPORT -------- Dictated By: Erik Coe Dictated Date: 07/09/2025 11:13 ET Assigned Physician: Erik Coe Reviewed and Electronically Signed By: Erik Coe Signed Date: 07/09/2025 11:17 ET Workstation ID: [id number] Transcribed By: Self Edit Transcribed Date: 07/09/2025 11:13 ET Narrative 07/09/2025 11:17 AM EDT CLINICAL: The patient is a 50 years Female presenting for routine screening mammography. COMPARISON: Outside studies most recently 04/03/2024 and most remotely 08/04/2015. TECHNIQUE: Full-field digital mammography of the breasts bilaterally consisting of tomosynthesis in MLO and CC projection is performed in the [employer] 2000-D unit. Computer aided detection utilizing the [...] MLO and CC projection is performed in theAmerican [employer] International[employer]he 2000-D unit. Computer aided detection utilizing the [employer] was utilized. FINDINGS: The breasts are again [...] for biopsy. PQRI CPT II 3342F Code 60764, 57678 PQRI 225 CPT II 7025F TISSUE DENSITY: There are scattered areas of fibroglandular density.(BI-RADS category B) IMPRESSION: Benign. BI-RADS CATEGORY: 2 - BENIGN RECOMMENDATION: Screening bilateral mammogram is recommended in 1 year. Mammo Location: [facility], [address] [place] [id number] -------- FINAL REPORT -------- Dictated By: Erik Coe Dictated Date: 07/09/2025 11:13 ET Assigned Physician: Erik Coe Reviewed and Electronically Signed By: Erik Coe Signed Date: 07/09/2025 11:17 ET Workstation ID: [id number] Transcribed By: Self Edit Transcribed Date: 07/09/2025 11:13 ET Yolie Desir MD IMG BI PROCEDURES Final Resu lt * HIV Screening (08/24/2017) HIV Screening abstracted Historical Provider HEALTH MAINTENANCE Final Result * Hepatitis C Screening (08/24/2017) Hepatitis C Screening abstracted Historical Provider HEALTH MAINTENANCE Final Result * Pap Smear (07/17/2015) Pap smear no interpretation , abstracted us Historical Provider HEALTH MAINTENANCE Final Result from Last 3 Months or Most Recently Relevant to Health Maintenance Additional Health Concerns Active Problems Noted Date Diagnosed Date Impaired Tissue 06/05/2025 Education needed on impact of smoking on wound 0 06/05/2025 Education needed related to ulceration/compromised skin integrity. 06/05/2025 Insurance MEDICAID - [place] Advance Directives Documents on File Type Date Recorded Patient Gas Reverser Expl anation Advance Directives and Living Will 08/28/2025 3:45 PM Health Care Proxy * Full Code - Confirmed (Latest Code Status on File) Date Activated Date Inactivated Comments 08/21/2025 6:48 AM 08/28/2025 5:[address] atus was ascertained in the following way: Code status discussion: discussion with patient To update the patient's code status, place a code status order. Do not modify or discontinue any currently active code status orders. * Full Code - Default Date Activated Date Inactivated Comments 08/21/2025 4:21 AM 08/21/2025 6:48 AM This is orde r is used when code status has not been discussed with the patient, or code status is otherwise unknown/unconfirmed To update the patient's code status, place a code status order. Do not modify or discontinue any currently active code status orders. * Full Code - Default Date Activated Date Inactivated Comments 05/06/2025 9:35 PM 05/08/2025 7:58 PM This is orde r is used when code status has not been discussed with the patient, or code status is otherwise unknown/unconfirmed To update the patient's code status, place a code status order. Do not modify or discontinue any currently active code status orders. Care Teams Aircraft Launch And Recovery Technician Relationship Specialty Start Date End Date Yolie Desir MD [address] [place] [phone] PCP - General 07/25/24
--- OUTSIDE RECORDS SUMMARY | 2025-10-03 18:07 | XMS_ITS | Encounter Summary ---
Author Organization [employer] Address [address] [facility] 7t [place] [address] Care Team Providers Care Manager Environmental Services Name Role Phone Yolie Desir MD Primary Care Provider + Reason for Visit * Reason Comments Med Refill Encounter Details Date Type Department Care Team ([facility] st Contact Info) Description 12/22/2023 Refill [facility] [address] [place], [place] [phone] [facility] [address] [place] [address] Acute on chronic congestive heart failure, unspecified [...] Description 10/25/2025 10:45 AM EST Office Visit [address] [address] Yolie Desir MD [address] [place] [phone] 12/13/2025 11:45 AM EST Office Visit [address] [address] Yolie Desir MD [address] [place] [phone] documented as of this encounter Visit Diagnoses Diagnosis Acute on chronic congestive heart failure, unspecified heart failure type (HCC) documented in this encounter Additional Health Concerns Assessment Noted Time PHQ-9 Depression Total Score: 8 02/11/20 23 9:24 AM EDT documented as of this encounter Care Teams Manager Environmental Services Relationship Specialty Start Date End Date Yolie Desir MD [address] [place] [phone] PCP - General Family Medicine 10/26/19 Hilda Cardoso Ems CoordinatorCurtains And Draperies Salesperson 04/18/25 Hilda Cardoso Propeller MechanicCurtains And Draperies Salesperson 05/22/25 [facility] 08/29/25 documented as of this encounter
--- OUTSIDE RECORDS SUMMARY | 2025-10-03 18:07 | XMS_ITS | Clinical Summary ---
Author Organization [facility] Address [address] [facility] [address] [place] [phone] Phone Care Team Providers Care School Director Name Role Phone Yolie Desir MD [...] patient's age to complete this topic IPV VACCINES Aged Out No longer eligi ble based on patient's age to complete this topic MENINGOCOCCAL VACCINES (ACWY) Aged Out No longer eligible based on patient's age to complete this topic MENINGOCOCCAL VACCINES (B) Aged Out N o longer eligible based on patient's age to complete this topic Medical Devices Not on file Insurance [facility] C3 ACO [facility] C3 ACO C3 ACO [employer] [address] [address] [address] [address]CO [address] [address] [address] C3 ACO [facility] C3 ACO Care Teams School Director Relationship Specialty Start Date End Date Yolie Desir MD [address] [facility] [address] [place] [phone] PCP - General Internal Medicine 03/31/21 Additional Source Comments The information contained in this document represents components of the legal health record. It is not the complete legal health record.[facility]
--- OUTSIDE RECORDS SUMMARY | 2025-10-03 18:07 | XMS_ITS | Encounter Summary ---
Author Organization [employer] Address [address] [facility] 7t [place] [address] Care Team Providers Care Gift Consultant Name Role Phone oYlie Desir MD Primary Care Provider + Reason for Visit * Reason Comments Med Refill Encounter Details Date Type Department Care Team ([facility] st Contact Info) Description 12/26/2023 Refill [facility] [address] [place], [place] [phone] [facility] [address] [place] [address] Acute on chronic congestive heart failure, unspecified [...] Description 10/25/2025 10:45 AM EST Office Visit [address] [address] Yolie Desir MD [address] [place] [phone] 12/13/2025 11:45 AM EST Office Visit [address] [address] Yolie Desir MD [address] [place] [address] documented as of this encounter Visit Diagnoses Diagnosis Acute on chronic congestive heart failure, unspecified heart failure type (HCC) documented in this encounter Additional Health Concerns Assessment Noted Time PHQ-9 Depression Total Score: 8 02/11/20 23 9:24 AM EDT documented as of this encounter Care Teams Gift Consultant Relationship Specialty Start Date End Date Yolie Desir MD [address] [place] [phone] PCP - General Family Medicine 10/26/19 Hilda Cardoso Stain SprayerCase Loader Operator 04/18/25 Hilda Cardoso Contract OfficerCase Loader Operator 05/22/25 [facility] 08/29/25 documented as of this encounter
--- OUTSIDE RECORDS SUMMARY | 2025-10-03 18:07 | XMS_ITS | Patient Health Record ---
Author Organization [facility] Address [address] [place] [address] Care Team Providers Care Deputy Attorney General Name Role Phone Eagle (DO NOT USE), [facility] Primary Care Provi jaison Rick Estrada Jr Unavailable [phone] Allergies Allergen (clinical drug ingredient) Drug/Non Drug [...] W/U Status Risk Notes Problem Epigastric pain (33957799) Epigastric pain (R10.13) Active confirmed Problem Gastroesophageal reflux disease (254024006) Gastroesophageal reflux disease, esophagitis presence not specified (K21.9) Active confirmed Problem Diarrhea (45309458) Diarrhea, unspecified type (R19.7) Active confirmed Plan Of Treatment Future Test Test Name Order Date UPPER GI ENDOSCOPY 09/09/2017 COLONOSCOPY 09/09/2017 Insurance Providers Payer Name Payer Address Payer Phone Subscriber Number Group Number Insured Name Patient Relationship to Insured Coverage Start Date Coverage End Date MEDICAID OF [facility] [address] [place] [id number] MONI YEE Self - patient is the insured Medical (General) History Medical History History ICD Code diabetes mellitus coronary artery disease with history of [place] 2015 kidney disease hypertension sleep apnea asthma systolic congestive heart failure depression neuropathy Surgical History Surgery Date(Month/Year) corneal transplant-right eye 2014 left hand surgery 2014 coronary artery bypass graft 01/2016, PCI with JOSE of mid LAD and ramus 03/06 after occlusion of GUNN and SVG graft 2015 tubal ligation cholecystectomy uterine polypectomy
--- OUTSIDE RECORDS SUMMARY | 2025-10-03 18:07 | XMS_ITS ---
Care Plan Created on: October 03, 2025 Melissa Barnett : 1975 Sex: Female Author Organization [address] [facility] Address [address] [place] [address] Phone Care Team Providers Care Hebrew Cantor Name Role Phone Yolie Desir MD Primary Care Provider + [phone] Active Problems Problem Noted Date Diagnosed Date Chronic osteomyelitis of hin dfoot, left ([facility] V24, [facility] V28) 07/23/2025 Ulcer of toe of left foot, w ith fat layer exposed ([facility] V24, [facility] V28) 06/05/2025 Type 2 diabetes mellitus wit h polyneuropathy ([facility] V24, [facility] V28) 06/05/2025 Diabetic foot infection ([facility] V24, [facility] V2 8) 05/06/2025 Allergic rhinitis 09/28/2024 Anemia 09/28/2024 Primary osteoarthritis of both hips 09/28/2024 Blindness of both eyes 09/28/2024 Chronic sinusitis 09/28/2024 CHF (congestive heart failure) ([facility] V24, [facility] V28) 09/28/2024 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 ([facility] V24, [facility] V28) 09/28/2024 Type 2 diabetes mellitus wit h foot ulcer (CODE) ([facility] V24, [facility] V28) 09/28/2024 Additional Health Concerns Active Problems [...]
--- OUTSIDE RECORDS SUMMARY | 2025-10-03 18:07 | XMS_ITS | Encounter Summary ---
Author Organization [facility] Address [address] [place] [address] 7t [place] [address] Care Team Providers Care Spinning Mule Operator Name Role Phone Yolie Desir MD Primary Care Provider + Encounter Details Date Type Department Care Team (Late st Contact Info) Description 01/25/2023 Abstract [facility] [address] [place] [phone] Yolie Desir MD [address] [place] [address] [phone] Social History Tobacco Use Types Packs/Day Years [...] Description 10/25/2025 10:45 AM EST Office Visit [facility] [address] [place] [address] [phone] Yolie Desir MD [address] [place] [address] [phone] 12/13/2025 11:45 AM EST Office Visit [address] [phone] Yolie Desir MD [address] [place] [address] documented as of this encounter Visit Diagnoses Not on filedocumented in this encounter Care Teams Spinning Mule Operator Relationship Specialty Start Date End Date Yolie Desir MD [address] [place], [place] [phone] PCP - General Family Medicine 10/26/19 Hilda Cardoso Public Speaking ProfessorSenior Sql Database Developer 04/18/25 Hilda Cardoso Sociology ProfessorSenior Sql Database Developer 05/22/25 [facility] 08/29/25 documented as of this encounter
--- OUTSIDE RECORDS SUMMARY | 2025-10-03 18:08 | XMS_ITS | Encounter Summary ---
Author Organization [employer] Address [address] [facility] [address] [place] [address] Care Team Providers Care Forensic Anthropologist Name Role Phone Yolie Desir MD Primary Care Provider + Encounter Details Date Type Department Care Team (Late st Contact Info) Description 10/03/2025 Orders Only GENERIC EXTERNAL DATA [...] Description 10/25/2025 10:45 AM EST Office Visit [address] [address] Yolie Desir MD [address] [place] [phone] 12/13/2025 11:45 AM EST Office Visit [address] [address] Yolie Desir MD [address] [place] [phone] documented as of this encounter Procedures Procedure Name Priority Date/Time Associated Diagnosis Comments GLUCOSE, WHOLE BLOOD Routine 10/03/2025 3:13 PM EST documented in this encounter Results * Glucose, Whole Blood (10/03/2025 3:13 PM EST) Glucose, Whole Blood 76 60 - 115 mg/dL [facility] Comment:METER #: [id number] Testing performed in the Endocrinology Department [address] , [address], [facility]. 10/03/2025 3:13 PM EST 10/03/2025 3:18 PM EST us Generic External Data Provider LAB BLOOD ORDERAB LES Final Result [facility] [address] [place] [address] [phone] documented in this encounter Visit Diagnoses Not on filedocumented in this encounter Additional Health Concerns Assessment Noted Time PHQ-9 Depression Total Score: 6 05/30/20 25 10:56 AM EDT documented as of this encounter Care Teams Forensic Anthropologist Relationship Specialty Start Date End Date Yolie Desir MD [address] [place] [phone] PCP - General Family Medicine 10/26/19 Hilda Cardoso Refrigerator RepairmanShoe Cleaner 04/18/25 Hilda Cardoso Automobile ParkerShoe Cleaner 05/22/25 [facility] 08/29/25 documented as of this encounter
== END 2025-10-03 15:31 | disposition home or self-care (01) ==
LOC: HO.ENCR 14:52
PROVIDERS: PCP Internal Medicine; Visit Provider Internal Medicine Endocrinology, Diabetes & Metabolism
DX: E11.29 Type 2 diabetes mellitus with other diabetic kidney complication (principal); E78.5 Hyperlipidemia, unspecified
CPT/HCPCS: 99214

== ENCOUNTER → 2025-10-03 14:51 | Outpatient (BNVA) | payer MEDICAID, SELFPAY | PROVIDERS: PCP Internal Medicine; Visit Provider Internal Medicine Endocrinology, Diabetes & Metabolism | DX: E11.29 Type 2 diabetes mellitus with other diabetic kidney complication (principal); E11.65 Type 2 diabetes mellitus with hyperglycemia; E11.319 Type 2 diabetes mellitus with unspecified diabetic retinopathy without macular edema; E78.5 Hyperlipidemia, unspecified; Z79.4 Long term (current) use of insulin; Z96.41 Presence of insulin pump (external) (internal) | CPT/HCPCS: 82947; 99212 ==

== ENCOUNTER 2025-10-25 11:58 | Outpatient (REF) | payer MEDICAID, SELFPAY ==
[2025-10-25 14:16] LABS: Protein/Creatinine Ratio, Ur 0.13 (<0.2); Total Protein Urine Random 15 mg/dL (<12)
[2025-10-25 14:17] LABS: Anion Gap 12 (12-20); Blood Urea Nitrogen 22 mg/dL (9-16); Calcium 10.3 mg/dL (8.4-10.2); Carbon Dioxide 32 mmol/L (22-29); Chloride 101 mmol/L (96-108); Cholesterol 196 mg/dL (<200); Estimated Glomerular Filt Rate 58; HDL Cholesterol 48 mg/dL (>40); Potassium 3.2 mmol/L (3.3-5.1); Sodium 142 mmol/L (135-145); Triglycerides 129 mg/dL (<150)
[2025-10-25 14:20] LABS: Anion Gap 13 (12-20); Blood Urea Nitrogen 22 mg/dL (9-16); Calcium 10.4 mg/dL (8.4-10.2); Carbon Dioxide 32 mmol/L (22-29); Chloride 101 mmol/L (96-108); Cholesterol 202 mg/dL (<200); Estimated Glomerular Filt Rate > 60; HDL Cholesterol 49 mg/dL (>40); Potassium 3.1 mmol/L (3.3-5.1); Sodium 143 mmol/L (135-145); Triglycerides 136 mg/dL (<150)
[2025-10-25 21:32] LABS: Reflex LDLD? No
[2025-10-26 08:12] LABS: HBS Num1 0.99 mIU/mL (0-7.99); HBc Num1 0.17 S/CO (0.00-0.79); HBsAGNum1 0.36 S/CO (0.00-0.99); Hepatitis A Antibody IgM 0.21 Index (0-0.79); Hepatitis B Surface Antigen Negative (Negative); ~HepC Num1 0.15 S/CO (0.00-0.79); ~Hepatitis A Antibody IgM Nonreactive (Nonreactive); ~Hepatitis B Surface Antibody NONREACTIVE (Nonreactive); ~Hepatitis C Antibody Nonreactive (Nonreactive)
[2025-10-28 09:04] LABS: TS Negative Control Passed; TS Panel A 0; TS Panel B 0; TS Positive Control Passed; TSpotTB Negative (Negative)
== END 2025-10-25 11:59 | disposition home or self-care (01) ==
LOC: HO.HHCL 11:58
PROVIDERS: PCP Internal Medicine; Referring Provider Internal Medicine Nephrology; Visit Provider Internal Medicine Endocrinology, Diabetes & Metabolism
DX: Z00.00 Encounter for general adult medical examination without abnormal findings (principal); Z11.1 Encounter for screening for respiratory tuberculosis; Z11.59 Encounter for screening for other viral diseases; I12.9 Hypertensive chronic kidney disease with stage 1 through stage 4 chronic kidney disease, or unspecified chronic kidney disease; E11.22 Type 2 diabetes mellitus with diabetic chronic kidney disease; E78.5 Hyperlipidemia, unspecified; E83.52 Hypercalcemia; E11.29 Type 2 diabetes mellitus with other diabetic kidney complication; E11.51 Type 2 diabetes mellitus with diabetic peripheral angiopathy without gangrene; N18.30 Chronic kidney disease, stage 3 unspecified
CPT/HCPCS: 36415; 80048; 80051; 80061; 82310; 82565; 82570; 84156; 84520; 86481; 86704; 86706; 86709; 86803; 87340

== ENCOUNTER 2025-11-05 10:42 | Outpatient (AMB) | payer MEDICAID, SELFPAY ==
--- OUTSIDE RECORDS SUMMARY | 2025-11-04 14:00 | XMS_ITS | Encounter Summary ---
Author Organization [facility] Address [address] [place] [address] Care Team Providers Care Manager Business Management Name Role Phone Yolie Desir MD Primary Care Provider + [phone] Encounter Details Date Type Department Care Team (Latest Contact Info) Description 11/04/2025 2:00 PM EST Office Visit Orthopedic Surgery - [place] [address] [facility] [address] [place] [phone] Joaquín Guan, DPM 175 [facility] [address] [place] [address] Metatarsalgia of left foot (Primary Dx); Type II diabetes mellitus with peripheral circulatory disorder ([facility] V24, [facility] V28); Midfoot ulceration, right, with fat layer exposed ([facility] V24, [facility] V28) Social History Tobacco Use Types Packs/Day Years Used Date Smoking Tobacco: Former Cigarettes Smokeless Tobacco: Never Comments:Quit 2 years ago Alcohol Use Standard [...] PM EDT documented as of this encounter Functional Status * Are you [...] of Assessment Author No 05/06/2025 8:29 PM Ishan Trinidad RN documented as of this encounter Mental Status * Because of a physical, mental, or emotional condition, do you have serious difficulty concentrating, remembering, or making decisions? (5 years old or older) Answer Entry Date Author No 05/06/2025 8:29 PM Ishan Trinidad RN documented in this encounter Progress Notes * Joaquín Guan DPM - 11/04/2025 2:00 PM EST IDENTIFIER: Beth Cheek is a 50 y.o. year old female who presents for consultation. CC: Right foot wound HPI: 50-year-old female returns office with bilateral foot wounds. Patient notes that she has a appointment for diabetic shoes to be made in December. Patient's left foot wound has healed up but she is dealing with a right foot wound. Patient has been dressing the wound daily and notes that her visiting nurse has stopped coming as the left foot wound has healed. Patient denies fever nausea function is breath ROS: GENERAL: Pt denies nausea, fever, vomiting, [...] of systems is noncontributory PAST MEDICAL HISTORY: Problem List[1] SOCIAL HISTORY: Social History Tobacco Use Smoking status: Former Types: Cigarettes Smokeless tobacco: Never Tobacco comments: Quit 2 years ago Substance Use Topics Alcohol use: Never ACTIVE MEDICATIONS: Medications Taking[2] ALLERGIES: Vancomycin, Levofloxacin, Sulfamethoxazole-trimethoprim, and Trimethoprim PHYSICAL EXAM: There were no vitals taken for this visit. PODIATRIC EXAMINATION: GENERAL: Patient appears well nourished, with NAD. VASCULAR: Dorsalis pedis pulses are 1/4 bilaterally and Posterior tibial pulses are 0/4 bilaterally. Capillary filling time within normal limits the digits. No pallor on elevation or rubor on dependency. Positive hair growth. Many varicosities. Denies rest pain or claudication pain. NEUROLOGICAL: Sharp/dull sensation intact, protective sensation diminished on [place]. Peripheral neuropathy throughout the feet bilaterally ORTHOPEDIC: Good muscle strength 5/5 of all flexors and extensors. Dorsi flexion of ankle ,10 degrees, plantar flexion WNL. No muscle atrophy. Inverted foot on the left lower extremity with recent removal of fifth metatarsal head. Arthritic changes in the midfoot. DERMATOLOGICAL:.Left foot no longer showing any heel wound. There are scar tissue overlying where previous wound was with epithelialization. Continued wound to the plantar submetatarsal 5 position of the right foot with subcutaneous fibrogranular base and regular hyperkeratotic rim. Wound size is 1 cm x 5 mm x 5 mm no purulent drainage orclinical signs of infection. BIOMECHANICS: STJ ROM wnl, MTJ ROM wnl, 1st MPJ ROM wnl. IMAGING: Recent bony debridement of the fifth metatarsal and base of the proximal phalanx without any signs of subcutaneous gas or further infection or osteolysis IMPRESSION: 1. Metatarsalgia of left foot 2. Type II diabetes mellitus with peripheral circulatory disorder (CMS/HCC V24, CMS/HCC V28) 3. Midfoot ulceration, right, with fat layer exposed (CMS/HCC V24, CMS/HCC V28) PLAN: Pt was seen and examined, history reviewed. Patient is going to continue following with the musical instrument supervisor for the custom diabetic shoes in order tolimit pressure to the feet when she is ambulating. Patient was encouraged to control her sugar as well as possible in order to limit continuation of the infection to the feet Plan to contact the visiting nurse in order to ensure that patient is getting dressing changes to the right foot now that she has a continued wound to this area Excisional open wound selective debridement of devitalized soft tissue, fibrin, epidermis, dermis, thru skin and subcutaneous tissue, first 20 sq cm or less, using sterile sharp dissection #15 scalpel blade of the right foot wound. Pt. deferred anesthesia. . Devitalized tissue was not sent to pathology. Joaquín Guan DPM [1] Patient Active Problem List Diagnosis Allergic rhinitis Anemia Primary osteoarthritis of both hips Blindness of both eyes Chronic sinusitis CHF (congestive heart failure) ([facility] V24, [facility] V28) Diabetic nephropathy associated with type 2 diabetes mellitus ([facility] V24, [facility] V28) Type 2 diabetes mellitus with foot ulcer (CODE) ([facility] V24, [facility] V28) Diabetic foot infection ([facility] V24, [facility] V28) Ulcer of toe of left foot, with fat layer exposed ([facility] V24, [facility] V28) Type 2 diabetes mellitus with polyneuropathy ([facility] V24, [facility] V28) Chronic osteomyelitis of hindfoot, left ([facility] V24, [facility] V28) [2] No outpatient medications have been marked as taking for the 11/04/25 encounter (Office Visit) withJoaquín Guan DPM. documented in this encounter Plan of Treatment Upcoming Encounters Date Type Department Care Team (Late st Contact Info) Description 11/20/2025 3:15 PM EST Office Visit Orthopedic Surgery - [place] [address] [phone] Joaquín Guan DPM [address] [address] 11/27/2025 1:30 PM EST Ancillary Procedure [facility] [address] [facility] 101 [place] [phone] 12/18/2025 3:00 PM EST Consult Vascular Surgery - [place] 300 [facility] [address] [place] [phone] Estella Mendez PA 300 [facility] [address] [place] [address] documented as of this encounter Goals Goal [...] Sauer RN documented as of this encounter Visit Diagnoses Diagnosis Metatarsalgia of left foot- Primary Type II diabetes mellitus with peripheral circulatory disorder ([facility] V24, [facility] V28) Type II or unspecified type diabetes mellitus with peripheral circulatory disorders, not stated as uncontrolled Midfoot ulceration, right, with fat layer exposed ([facility] V24, [facility] V28) documented in this encounter Additional Health Concerns Active Problems Noted Date Diagnosed Date Impaired Tissue 06/05/2025 Education needed on impact of smoking on wound 0 06/05/2025 Education needed related to ulceration/compromised skin integrity. 06/05/2025 Assessment Noted Time PHQ-9 Depression Total Score: 4 06/05/20 25 2:39 PM EDT documented as of this encounter Care Teams Manager Business Management Relationship Specialty Start Date End Date Yolie Desir MD [address] [place] [phone] PCP - General 07/25/24 documented as of this encounter
--- NOTE | 2025-11-05 11:16 | HO.NEPHOV_ITS ---
Vital Signs 11/05/25 11:26 Height 5 ft 7 in Weight 191 lb BMI 29.9 BP 100/60 Blood Pressure Location Lt brachial Position Sitting Intake Visit Reasons: 3 mnts-Conf Merchandise Team Manager Required: Yes Merchandise Team Manager Language: Silk Screen Etcher Services: Merchandise Team Manager Present Merchandise Team Manager Name: Vesta [id number] Information Interpreted: clinical only Accompanied by: Self / Same As Patient Allergies sulfamethoxazole (From BACTRIM) Allergy (Severe, Verified 11/05/25 11:25) FACIAL SWELLING trimethoprim (From BACTRIM) Allergy (Severe, Verified 11/05/25 11:25) FACIAL SWELLING levofloxacin (From LEVAQUIN) Allergy (Intermediate, Verified 11/05/25 11:25) REDNESS, SWELLING ITCHINESS AT IV SITE HPI Comments Details: Melissa was seen in the office today in follow-up of her chronic kidney disease on a background of diabetic nephropathy. She has history of vascular disease needing surgery for foot but currently denies any active peripheral arterial disease symptoms. She has history of coronary artery disease needing intervention. She is on Entresto and Farxiga now. Her blood sugars are better controlled and her blood pressure is at goal. She denies any chest pain, shortness of breath, proximal nocturnal dyspnea, orthopnea, pedal edema, orthostatic or urinary symptoms. She does not take any nonsteroidal anti-infl ammatories and maintain good hydration. [facility] Medical History (Updated 11/05/25 @ 11:30 by Musa Colby MD) Hyperlipidemia Asthma DEVYN (obstructive sleep apnea) Osteomyelitis Wound of left foot DM2 (diabetes mellitus, type 2) Hyperlipidemia LDL goal <100 CAD (coronary artery disease) Retinopathy Anxiety Depression Type 2 diabetes mellitus with hyperglycemia, with long-term current use of insulin Proteinuria Type 2 diabetes mellitus with other diabetic kidney complication Essential hypertension Obesity due to excess calories Type 2 diabetes mellitus with diabetic polyneuropathy Surgical History (Updated 10/03/25 @ 15:07 by Zahra Dobson CMA) S/P foot surgery, left Hx of breast biopsy Hx of section Hx of tubal ligation Hx of coronary artery bypass surgery Family History Maternal Grandmother Diabetes Cervical cancer Brother Diabetes Sister Breast cancer Social History Household Members: Family Household Members Other:: 1 Housing: Apartment Alcohol intake: never Patient Tobacco Use Status: Never used Tobacco Second Hand Smoke Exposure: No service: No Current occupational status: unemployed Female Reproductive History Menstrual Age of Menarche: 11 Review of Systems Const All systems reviewed & are unremarkable except as noted in HPI and below Physical Exam Const General: comfortable and no acute distress Orientation/consciousness: patient oriented x3 HEENT Head: Yes normocephalic Mouth: Normal oral and palatal mucosa present Eyes EOM: EOMs intact bilaterally Neck Neck: Yes supple Resp Auscultation: clear to auscultation bilaterally Cardio Jugular venous distension: no JVD Rate: regular rate GI Palpation (GI): Soft to palpation Auscultation: normal bowel sounds General: Yes no CVA tenderness Back/Spine/Pelvis Back: no CVA tenderness Skin General skin exam: no rashes or lesions noted Neuro General: patient oriented x3 and moves all extremities Extrem General: Yes no pedal edema Results Reviewed Nephrology Results: Sodium, (135-145) 143 mmol/L 10/25/25 Potassium, (3.3-5.1) 3.1 mmol/L L 10/25/25 Chloride, (96-108) 101 mmol/L 10/25/25 Carbon Dioxide, (22-29) 32 mmol/L H 10/25/25 BUN, (9-16) 22 mg/dL H 10/25/25 Creatinine, (0.5-1.4) 0.97 mg/dL 10/25/25 Calcium, (8.4-10.2) 10.4 mg/dL H 10/25/25 Urine Creatinine 119.00 mg/dL 10/25/25 Protein/Creatinin Ratio, (<0.2) 0.13 10/25/25 Assessment & Plan Assessment & Plan (1) Hypertension: Code(s): I10 - Essential (primary) hypertension Category: Medical Qualifiers: Hypertension type: primary hypertension Qualified Code(s): I10 - Essential (primary) hypertension (2) Type 2 diabetes mellitus with other diabetic kidney complication: Code(s): E11.29 - Type 2 diabetes mellitus with other diabetic kidney complication Category: Medical (3) Hypokalemia: Code(s): E87.6 - Hypokalemia Category: Medical Plan 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 She has proteinuria. Her blood sugar control is fair. Her blood pressure is at goal. She is on Farxiga and Entresto. She would benefit from a bit more weight loss. Her volume status is optimal. She has no peripheral arterial symptoms. She is on K replacement. I shall start low dose of Spironolactone at next visit. Answered all questions and follow-up was given Orders: Orders Electrolytes 1 Month E11.29 - Type 2 diabetes mellitus with other diabetic kidney complication, E87.6 - Hypokalemia, I10 - Essential (primary) hypertension Blood Urea Nitrogen 1 Month E11.29 - Type 2 diabetes mellitus with other diabetic kidney complication, E87.6 - Hypokalemia, I10 - Essential (primary) hypertension Creatinine 1 Month E11.29 - Type 2 diabetes mellitus with other diabetic kidney complication, E87.6 - Hypokalemia, I10 - Essential (primary) hypertension Coding Level of Care Code Est Pt Level 4 (39507) Diagnoses Primary hypertension I10 Hypertension type: primary hypertension Type 2 diabetes mellitus with other diabetic kidney complication E11.29 Hypokalemia E87.6
[2025-11-05 11:26] VITALS: BP 100/60; BMI 29.9
--- OUTSIDE RECORDS SUMMARY | 2025-11-05 13:39 | XMS_ITS | Encounter Summary ---
Author Organization [employer] [facility] Address [address] [place] [address] [address] [place] [address] Care Team Providers Care Bariatric Surgeon Name Role Phone Yolie Desir MD Primary Care Provider + Encounter Details Date Type Department Care Team (Late st Contact Info) Description 01/25/2023 Abstract [facility] [address] [place] [address] [phone] Yolie Desir MD [address] [place] [address] [phone] Social History Tobacco Use Types Packs/Day Years [...] Care Team (Late st Contact Info) Description 12/13/2025 11:45 AM EST Office Visit [facility] [address] [place] [address] [phone] Yolie Desir MD [address] [place] [address] [phone] documented as of this encounter Visit Diagnoses Not on filedocumented in this encounter Care Teams Bariatric Surgeon Relationship Specialty Start Date End Date Yolie Desir MD [address] [place] [phone] PCP - General Family Medicine 10/26/19 Hilda Cardoso CalendererUnderwriting Consultant 04/18/25 Hilda Cardoso Veterinary AssistantUnderwriting Consultant 05/22/25 [facility] 08/29/25 documented as of this encounter
--- OUTSIDE RECORDS SUMMARY | 2025-11-05 13:39 | XMS_ITS | Patient Health Record ---
Author Organization [facility] Address [address] [place] [address] Care Team Providers Care Feed Weigher Name Role Phone Eagle (DO NOT USE), [facility] Primary Care Provi jaison Rick Estrada Jr Unavailable Allergies Allergen (clinical drug ingredient) Drug/Non Drug Allergy documented on EMR Reaction Allergy Type Onset Date Status sulfamethoxazole / trimethoprim Bactrim Unknown Drug Allergy Active Levaquin Unknown Drug Allergy Active Reason For Referral No Information Medications Medication SIG (Take, Route, Frequency, Duration) Notes Start Date End Date Status Lisinopril 5 MG Tablet 1 tablet Orally O nce a day Active Sertraline HCl 100 MG Tablet 1 tablet Orally Once a day Active HumaLOG 100 UNIT/ML Solution Subcutaneous Active Torsemide 20 MG Tablet Orally Active Lantus 100 UNIT/ML Solution Subcutaneous Active Clopidogrel Bisulfate 75 MG Tablet 1 tablet Orally Once a day Active Gabapentin 100 MG Capsule Orally Active Fluticasone Propionate 0.05 % Lotion 1 application to affected area Externally Once a day Active Carvedilol 6.25 MG Tablet Orally Active Aspir-81 81 MG Tablet Delayed Release 1 tablet Orally Once a day Active Atorvastatin Calcium 80 MG Tablet 1 tablet Orally Active Mapap 325 MG Tablet 2 tablets as needed Orally every 6 hrs Active Pantoprazole Sodium 40 MG Tablet Delayed Release 1 tablet Orally Once a day Active Colyte with Flavor Packs 240 GM Solution Reconstituted As directed Orally Over the specified time.; Duration: 1 day(s) Active Digoxin 125 MCG Tablet 1 tablet Orally O nce a day Active Ammonium Lactate Act hever Ferrous Gluconate 324 (37.5 Fe) MG Tablet Orally Active clonazePAM 0.5 MG Tablet 1 tablet Orally Active Loratadine 10 MG Tablet 1 tablet Orally Once a day Active Social History Tobacco Use: Social History Observation Description Date Details (start date - stop date) Former Smoker NA - NA Social History Drugs/Alcohol: Social Info Question Answer Notes Alcohol Screen Did you have a drink containing alcohol in the past year? No Points 0 Interpretation Negative Tobacco Use: Social Info Question Answer Notes Tobacco Use/Smoking Patient is a former smoker How long has it been since you last smoked? 1-5 years Additional Details Category Social Info Options Details Miscellaneous: Marital status: Occupation: unemployed Problems Problem Type SNOMED Code ICD Code Onset Dates Problem Status W/U Status Risk Notes Problem Epigastric pain (50510311) Epigastric pain (R10.13) Active confirmed Problem Gastroesophageal reflux disease (781956590) Gastroesophageal reflux disease, esophagitis presence not specified (K21.9) Active confirmed Problem Diarrhea (76081175) Diarrhea, unspecified type (R19.7) Active confirmed Plan Of Treatment Future Test Test Name Order Date UPPER GI ENDOSCOPY 09/09/2017 COLONOSCOPY 09/09/2017 Insurance Providers Payer Name Payer Address Payer Phone Subscriber Number Group Number Insured Name Patient Relationship to Insured Coverage Start Date Coverage End Date [facility] [address] [place] [phone] [id number] MONI YEE Self - patient is the insured Medical (General) History Medical History History ICD Code diabetes mellitus coronary artery disease with history of [place] 2016 kidney disease hypertension sleep apnea asthma systolic congestive heart failure depression neuropathy Surgical History Surgery Date(Month/Year) corneal transplant-right eye 2014 left hand surgery 2014 coronary artery bypass graft 01/2016, PCI with JOSE of mid LAD and ramus 03/06 after occlusion of GUNN and SVG graft 2016 tubal ligation cholecystectomy uterine polypectomy
--- OUTSIDE RECORDS SUMMARY | 2025-11-05 13:39 | XMS_ITS | Clinical Summary ---
Author Organization 175 [facility] Address [address] [place] [address] Phone Care Team Providers Care Director Product Development Name Role Phone Yolie Desir MD Primary Care Provider + [phone] Allergies Active Allergy Reactions Criticality Noted Date [...] 1 (one) time each day. 473 mL 09/03/20 25 Active digoxin (LANOXIN) 125 mcg (0.125 mg) tablet TAKE 1 TABLET BY MOUTH EVERY MORNING ON TUESDAY, TUESDAY AND Tuesday10/09/20 25 Active atorvastatin (LIPITOR) 20 mg tablet Take 1 tablet (20 mg total) by mouth. at bedtime. 08/12/20 25 Active zinc oxide 20 % ointment APPLY TOPICALLY TO THE AFFECTED AREA(S) EVERY DAY NEEDED FOR IRRITATION 06/05/20 25 Active Mounjaro 5 mg/0.5 mL injection INJECT ONE PEN (=5MG) SUBCUTANEOUSLY ONCE A WEEK DIRECTED 10/03/20 25 Active Mounjaro 2.5 mg/0.5 mL injection Inject 0.5 mL (2.5 mg total) under the skin. 08/06/20 25 Active senna-docusate (PERICOLACE) 8.6-50 mg per tablet Take 1 tablet by mouth. 09/12/20 25 026 Active Ultra-Fine Pen Needle 31 gauge x 04/05 needle use as directed 10/09/20 Active TRUEplus Lancets 33 gauge misc USE DIRECTED TO TEST BLOOD SUGAR FOUR TIMES DAILY 10/09/20 Active Omnipod 5 G6-G7 Pods, Gen 5, cartridge USE DIRECTED CHANGE EVERY 72 HOURS 10/09/20 Active Farxiga 10 mg tablet Take 1 tablet (10 mg total) by mouth 1 (one) time each day. 10/16/20 Active Dexcom G7 Sensor USE DIRECTED TO TEST BLOOD SUGAR, CHANGE EVERY 10 DAYS 10/09/20 Active blood sugar diagnostic (FreeStyle Lite Strips) test strip USE FOUR TIMES DAILY TO TEST BLOOD SUGAR 10/09/20 Active Active Problems Problem Noted Date Diagnosed Date Chronic osteomyelitis of hindfoot, left 07/23/20 Ulcer of toe of left foot, with fat layer expose d 06/05/2025 Type 2 diabetes mellitus with polyneuropathy Diabetic foot infection 05/06/2025 Allergic rhinitis 09/28/2024 Anemia 09/28/2024 Primary osteoarthritis of both hips 09/28/2024 Blindness of both eyes 09/28/2024 Chronic sinusitis 09/28/2024 CHF (congestive heart failure) 09/28/2024 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 09/28/2024 Type 2 diabetes mellitus with foot ulcer (CODE) 09/28/2024 Encounters Date Type Department Care Team Description 11/04/2025 2:00 PM EST Office Visit Orthopedic Surgery - [place] 250 175 [facility] 250 [place] [phone] Joaquín Guan DPM Metatarsalgia of left foot (Primary Dx); Type II diabetes mellitus with peripheral circulatory disorder ([facility] V24, [facility] V28); Midfoot ulceration, right, with fat layer exposed ([facility] V24, [facility] V28) 10/23/2025 3:00 PM EST Office Visit Infectious Disease - [place] 175 [facility] 200 [place] [phone] Sera Vásquez MD Diabetic foot infection (CMS/HCC V24, CMS/HCC V28) (Primary Dx) 10/21/2025 2:30 PM EST Office Visit Orthopedic [facility] [address] [phone] Joaquín Guan DPM Chronic osteomyelitis of hindfoot, left (CMS/HCC V24, CMS/HCC V28) (Primary Dx); Metatarsalgia of left foot; Type II diabetes mellitus with peripheral circulatory disorder (CMS/HCC V24, CMS/HCC V28); Midfoot ulceration, right, with fat layer exposed (CMS/HCC V24, CMS/HCC V28) 10/07/2025 1:00 PM EST Office Visit Orthopedic [facility] [address] [phone] Joaquín Guan DPTom Chronic osteomyelitis of hindfoot, left (CMS/HCC V24, CMS/HCC V28) (Primary Dx); Metatarsalgia of left foot; Type II diabetes mellitus with peripheral circulatory disorder (CMS/HCC V24, CMS/HCC V28); Midfoot ulceration, right, with fat layer exposed (CMS/HCC V24, CMS/HCC V28) 09/23/2025 1:00 PM EST Office Visit Orthopedic [facility] [address] [phone] Joaquín Guan DPM Ulcer of heel and midfoot, left, with fat layer exposed (CMS/HCC V24, CMS/HCC V28) (Primary Dx); Pain in toe of left foot; Chronic osteomyelitis of hindfoot, left (CMS/HCC V24, CMS/HCC V28); Ulcer of toe of left foot, with fat layer exposed (CMS/HCC V24, CMS/HCC V28); Follow-up exam 09/20/2025 Telephone Orthopedic Surgery [facility] [address] [phone] Joaquín Guan DPM 09/10/2025 2:00 PM EDT Office Visit Orthopedic [facility] [address] [phone] Joaquín Guan DPM Pain in toe of left foot (Primary Dx); Chronic osteomyelitis of hindfoot, left ([facility] V24, [facility] V28); Ulcer of toe of left foot, with fat layer exposed ([facility] V24, [facility] V28) 09/03/2025 9:30 AM EDT Office Visit Orthopedic Surgery [facility] [address] [phone] Dusty Gonzalez DPM Ulcer of toe of left foot, with fat layer exposed ([facility] V24, [facility] V28) (Primary Dx) 09/02/2025 Telephone Orthopedic Surgery [facility] [address] [phone] Dusty Gonzalez DPM 08/28/2025 Telephone Infectious Disease [facility] 175 [facility] 200 [place] [phone] Jenny AvitiaBELOIT, [place] 08/23/2025 2:41 PM EDT Anesthesia Event [facility] [place] [address] [place] [phone] Shane Vera DO Couture, Alison [employer] MECH[employer]IC 08/23/2025 2:39 PM EDT - 08/23/2025 3:[address] [facility] OR [address] [place] [phone] Joaquín Guan DPM EXCISION METATARSAL HEAD [73077 (CPT ) +2 more] 08/20/2025 10:56 PM EDT - 08/28/2025 3:50 PM EDT Hospital Encounter [facility] [address] [place] [phone] Codey Daniels MD Jones, Christopher, MD Kokosadze, Estate, MD Zipagan, James T, MD Diabetic foot infection ([facility] V24, [facility] V28) (Primary Dx); Anaphylaxis, initial encounter; Acute osteomyelitis of left foot ([facility] V24, [facility] V28); Ulcer of toe of left foot, with fat layer exposed ([facility] V24, [facility] V28); Chronic osteomyelitis of hindfoot, left ([facility] V24, [facility] V28) Discharge Disposition: Home-Health Care [facility] 08/20/2025 2:30 PM EDT Office Visit Orthopedic Surgery [facility] [address] [phone] Dusty Gonzalez DPM Acute osteomyelitis of left ankle or foot ([facility] V24, [facility] V28) (Primary Dx); Ulcer of toe of left foot, with necrosis of bone ([facility] V24, [facility] V28) 08/16/2025 10:15 AM EDT Office Visit Orthopedic Surgery [place] [address] [phone] Dusty Gonzalez DPM Chronic osteomyelitis of hindfoot, left ([facility] V24, [facility] V28) (Primary Dx); Ulcer of toe of left foot, with necrosis of bone ([facility] V24, [facility] V28) 08/15/2025 2:15 PM EDT Office Visit [facility] [address] [place] [phone] Shane Cash PA Type 2 diabetes mellitus with foot ulcer (CODE) ([facility] V24, [facility] V28) (Primary Dx); 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 without evidence of necrosis ([facility] V24, [facility] V28) 08/08/2025 2:15 PM EDT Office Visit [facility] [address] [place] [phone] Shane Cash PA Type 2 diabetes mellitus with foot ulcer (CODE) ([facility] V24, [facility] V28) (Primary Dx); 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 without evidence of necrosis ([facility] V24, [facility] V28) from Last 3 Months Surgical History Surgery Date Site/Laterality Comments WOUND DEBRIDEMENT Left foot CORONARY ARTERY BYPASS GRAFT 2015 Medical History Medical History Date Comments Diabetes mellitus ([facility] V24, [facility] V28) Hypertension Chronic kidney disease Anxiety Depression [...] Sign Reading Time Taken Comments Blood Pressure 115/71 10/23/2025 3:15 PM EST Pulse 87 10/23/2025 3:15 PM EST Temperature 36.3 C (97.3 F) 10/23/2025 3:15 PM EST Respiratory Rate 18 08/28/2025 8:22 AM EDT Oxygen Saturation 100% 10/23/2025 3:15 PM EST Inhaled Oxygen Concentration - - Weight 87.1 kg (192 lb) 10/23/2025 3:15 PM EST Height 170.2 cm (5' 7 ) 08/20/2025 8:25 PM EDT Body Mass Index 30.07 08/20/2025 8:25 PM EDT Plan of Treatment Upcoming Encounters Date Type Department Care Team (Late st Contact Info) Description 11/20/2025 3:15 PM EST Office Visit Orthopedic Surgery - [place] 250 175 [facility] [address] [place] [phone] Joaquín Guan, CECY [facility] 250 [place] [address] 11/27/2025 1:30 PM EST Ancillary Procedure [facility] [address] [facility] 101 [place] [phone] 12/18/2025 3:00 PM EST Consult Vascular Surgery - [place] 300 [facility] [address] [place] [phone] Estella Mendez PA 300 [facility] 210 [place] [address] Health Maintenance Due Date Last Done Comments [...] Tdap) 09/19/2027 09/19/2017 Cholesterol Screening (Lipid Panel) 10/25/2030 10/25/2025, 06/25/2024 HIV Screening Completed 08/24/2017 Hepatitis C [...] by week 4 Care Plan Impaired Tissue No Kristie Sauer RN Wound volume breakdown reduced by X% by week 8 Care Plan Impaired Tissue No Kristie Sauer RN Wound volume breakdown reduced by X% by week 12 Care Plan Impaired Tissue No Kristie Sauer RN Quit using tobacco (cigarettes, smokeless, etc) Care Plan Education needed on impact of smoking on wound No Kristie Sauer RN Reduce tobacco use (cigarettes, smokeless, etc) Care Plan Education needed on impact of smoking on wound No Kristie Sauer RN Decrease Wound Volume by X% by date (in notes) Care Plan Education needed on impact of smoking on wound No Kristie Sauer, RN Patient and Caregiver Understand Wound Care Education Care Plan Education needed related to ulceration/compr omised skin integrity. No Kristie Sauer, carrier associate Procedure Name Priority Date/Time Associated Diagnosis Comments [...] CMS/HCC V28) CULTURE WOUND DEEP Routine 08/23/2025 3:05 PM EDT Ulcer of [...] of hindfoot, left (CMS/HCC V24, CMS/HCC V28) ME TRF/REARNG ADJACENT TISS DEFECT FRHD/CHEEKS/CHIN/MTH/ NECK/AX <=10SQCM 08/23/2025 2:41 PM EDT Ulcer of toe of left foot, with fat layer exposed (CMS/HCC V24, CMS/HCC V28) Chronic osteomyelitis of hindfoot, left (CMS/HCC V24, CMS/HCC V28) Case Notes MINI C-ARM,CONMED ME PARTIAL EXCISION BONE PHALANX OF TOE 08/23/2025 2:41 PM EDT Ulcer of toe of left foot, with fat layer exposed (CMS/HCC V24, CMS/HCC V28) Chronic osteomyelitis of hindfoot, left (CMS/HCC V24, CMS/HCC V28) Case Notes MINI C-ARM,CONMED ME OSTECTOMY COMPLETE EXCISION FIFTH METATARSAL HEAD 08/23/2025 [...] CULTURE BLOOD STAT 08/21/2025 12:20 AM EDT ME CRITICAL CARE 30-74 MINUTES Routine 08/20/2025 8:02 [...] foot ulcer (CODE) (CMS/HCC V24, CMS/HCC V28) MG MAMMO DIGITAL [...] subcutaneous gas or further infection or osteolysis us Joaquín Guan DPM IMG XR PROCEDURES Final Res ult * (ABNORMAL) POCT Glucose, blood (08/28/2025 11:08 AM EDT) Only the most recent of33 resultswithin the time period is included. Glucose POCT 218(H) 70 - 100 mg/dL 08/28/2025 11:17 AM [facility] Blood Capillary blood specimen / Unknown 08/28/2025 11:08 AM EDT 08/28/2025 11:19 AM EDT Pepe Hunt MD LAB POINT OF CARE TE ST DOCKED DEVICE UNSOLICITED RESULTS Final Result [facility] [address] [place] [address], [place] [phone] * Basic metabolic panel (08/28/2025 5:53 AM EDT) Only the most recent of7 resultswithin the time period is included. Pathologist [facility] Sodium 139 133 - 145 mmol/L LAB CHEMISTRY METHOD 08/28/2025 7:46 AM [facility] Potassium 3.5 3.5 - 5.5 mmol/L LAB CHEMISTRY METHOD 08/28/2025 7:46 AM [facility] Chloride 103 96 - 110 mmol/L LAB CHEMISTRY METHOD 08/28/2025 7:46 AM [facility] CO2 30 21 - 32 [...] mg/dL LAB CHEMISTRY METHOD 08/28/2025 7:46 AM EDT [facility] eGFR 66 >=60 mL/min/1. 73m2 LAB CHEMISTRY METHOD 08/28/2025 7:46 AM EDT [facility] Comment:Calculation based on the Chronic Kidney Disease Epidemiology Collaboration (CKD-EPI) equation refit without adjustment for race. BUN/Creatinine Ratio 16.7 LAB CHEMISTRY METHOD 08/28/2025 7:46 AM EDT [facility] Calcium 9.5 8.5 - 10.5 mg/dL LAB CHEMISTRY METHOD 08/28/2025 7:46 AM EDT [facility] Blood Venous blood specimen / Unknown Venipuncture / Unknown 08/28/2025 5:53 AM EDT 08/28/2025 6:55 AM EDT us Pepe Hunt MD LAB BLOOD ORDERABLES Final Re sult Performing Organization Address [facility]/ZIP Co de Phone Number [facility] [address] [place] [address], [place] [phone] * Lavender tube (08/28/2025 5:51 AM EDT) Pathologist [facility] Extra Tube Hold for add-ons. 08/28/2025 8:01 AM EDT [facility] Comment:Auto resulted. Blood Venous blood specimen / Unknown Venipuncture / Unknown 08/28/2025 5:51 AM EDT 08/28/2025 6:56 AM EDT us Pepe Hunt MD LAB BLOOD ORDERABLES Final Re sult Performing Organization Address [facility]/ZIP Co de Phone Number [facility] [address] [place] [address], [place] [phone] * (ABNORMAL) CBC auto differential (08/26/2025 6:13 [...] 6:31 AM [facility] Basophils Absolute 0.02 0.00 - 0.20 K/mcL LAB HEMETOLOGY METHOD 08/26/2025 6:31 AM [facility] Immature Granulocytes Absolute 0.02 0.00 - 0.03 K/mcL LAB HEMETOLOGY METHOD 08/26/2025 6:31 AM [facility] Blood Venous blood specimen / Unknown Venipuncture / Unknown 08/26/2025 6:13 AM EDT 08/26/2025 6:16 AM EDT Sofia Wilson MD LAB BLOOD ORDERABLES Final R esult Performing Organization Address [facility]/ZIP Co de Phone Number [facility] [address] [place] [address], [place] [phone] * Magnesium (08/24/2025 5:42 AM EDT) Only the most recent of4 resultswithin the time period is included. Magnesium 1.9 1.9 - 2.6 mg/dL LAB CHEMISTRY METHOD 08/24/2025 10:41 AM EDT [facility] Blood Venous blood specimen / Unknown Venipuncture / Unknown 08/24/2025 5:42 AM EDT 08/24/2025 6:57 AM EDT Lottie Watkins NP LAB BLOOD ORDERABLES Final Resul t Performing Organization Address [facility]/RUST de Phone Number [facility] [address] [place] [address], [place] [phone] * Tissue exam (08/23/2025 3:06 PM EDT) Pathologist [facility] Final Diagnosis A. Foot, Left, 5th proximal phalanx clean margin: -VIABLE APPEARING BONE B. Foot, Left, 5th metatarsal clean margin: -VIABLE APPEARING BONE 08/28/2025 12:14 PM EDT [facility] at 1214 EDT Gross Description A. [...] decalcificati on. TS 08/28/2025 12:14 PM EDT [facility] Disclaimer Unless otherwise specified, all tissue is 10% NB formalin fixed and paraffin embedded. 08/28/2025 12:14 PM EDT [facility] Bone Structure of left foot / Unknown 08/23/2025 3:06 PM EDT 08/26/2025 7:41 AM EDT Specimen from bone (specimen) Structure of left foot / Unknown 08/23/2025 3:07 PM EDT 08/26/2025 7:41 AM EDT Joaquín Guan [facility] PATHOLOGY ORDERABLES Fi nal Result Performing Organization Address [facility]/ZIP Co de Phone Number [facility] [address] [place] [address], * Culture anaerobic with gram stain (08/23/2025 3:05 PM EDT) Only the most recent of2 resultswithin the time period is included. Culture, Anaerobic No Growth of Anaerobes. 08/28/2025 7:58 AM EDT [facility] Gram Stain Result Refer to Aerobic culture for gram stain results. 08/28/2025 7:58 AM EDT [facility] Swab Structure of left foot / Unknown 08/23/2025 3:05 PM EDT 08/23/2025 3:26 PM EDT Joaquín Guan [facility] MICROBIOLOGY - GENERAL ORDERABLES Final Result Performing Organization Address City/[facility]/ZIP Co de Phone Number [facility] [address] [place] [address], [place] [phone] * (ABNORMAL) Culture wound deep (08/23/2025 3:05 PM EDT) Only the most recent of2 resultswithin the time period is included. Culture, Wound Streptococcus viridans group(A) 08/27/2025 11:03 AM EDT [facility] Comment: Susceptibility testing not routinely performed. [...] No organisms noted 08/27/2025 11:03 AM EDT [facility] Swab Structure of left foot / Unknown 08/23/2025 3:05 PM EDT 08/23/2025 3:26 PM EDT us Joaquín REYESM LAB MICROBIOLOGY - GENERAL ORDERABLES Final Result Performing Organization Address City/[facility]/ZIP Co de Phone Number [facility] [address] [place] [address], [place] [phone] * (ABNORMAL) B-type natriuretic peptide (08/23/2025 12:24 PM EDT) BNP 274(H) <=100 pcg/mL LAB CHEMISTRY METHOD 08/23/2025 1:22 PM EDT [facility] Blood Venous blood specimen / Unknown Venipuncture / Unknown 08/23/2025 12:24 PM EDT 08/23/2025 12:31 PM EDT us Lottie Watkins [employer] LAB BLOOD ORDERABLES Final Resul t [facility] [address] [place] [address], [place] [phone] * Culture blood (08/22/2025 2:06 PM EDT) Only the most recent of4 resultswithin the time period is included. Culture, Blood No growth at 5 days 08/27/2025 3:01 PM EDT [facility] Blood Venous blood specimen / Unknown Venipuncture / Unknown 08/22/2025 2:06 PM EDT 08/22/2025 2:15 PM EDT us Lottie Watkins NP LAB MICROBIOLOGY - GENERAL ORDER EMILIE Final Result [facility] [address] [place] [address], [place] [phone] * XR Chest 1 View (08/22/2025 1:57 [...] Signed Date: 08/22/2025 14:01 ET Workstation ID: [id number] Transcribed By: Self Edit Transcribed Date: 08/22/2025 [...] Signed Date: 08/22/2025 14:01 ET Workstation ID: [id number] Transcribed By: Self Edit Transcribed Date: 08/22/2025 14:00 ET us Lottie Watkins [employer] SPINNER IMG XR PROCEDURES Final Result * Respiratory virus panel molecular study (08/22/2025 1:33 PM EDT) Adenovirus Detection by PCR Not Detected Not Detected LAB MICROBIOLOGY METHOD 08/22/2025 2:42 PM EDT [facility] Influenza A PCR Not Detected Not Detected LAB MICROBIOLOGY METHOD 08/22/2025 2:42 PM EDT [facility] Influenza B PCR Not Detected Not Detected LAB MICROBIOLOGY METHOD 08/22/2025 2:42 PM EDT [facility] Coronavirus 229E Not Detected Not Detected LAB MICROBIOLOGY METHOD 08/22/2025 2:42 PM EDT [facility] Coronavirus HKU1 Not Detected Not Detected LAB MICROBIOLOGY METHOD 08/22/2025 2:42 PM EDT [facility] Coronavirus OC43 Not Detected Not Detected LAB MICROBIOLOGY METHOD 08/22/2025 2:42 PM EDT [facility] Coronavirus NL63 Not Detected Not Detected LAB MICROBIOLOGY METHOD 08/22/2025 2:42 PM EDT [facility] Parainfluenza Virus 1 Not Detected Not Detected LAB MICROBIOLOGY METHOD 08/22/2025 2:42 PM EDT [facility] Parainfluenza Virus 2 Not Detected Not Detected LAB MICROBIOLOGY METHOD 08/22/2025 2:42 PM EDT [facility] Parainfluenza Virus 3 Not Detected Not Detected LAB MICROBIOLOGY METHOD 08/22/2025 2:42 PM EDT [facility] Parainfluenza Virus 4 Not Detected Not Detected LAB MICROBIOLOGY METHOD 08/22/2025 2:42 PM EDT [facility] RSV PCR Not Detected Not Detected LAB MICROBIOLOGY METHOD 08/22/2025 2:42 PM EDT [facility] Human Metapneumovirus A and B Not Detected Not Detected LAB MICROBIOLOGY METHOD 08/22/2025 2:42 PM EDT [facility] Rhinovirus/Entero virus Not Detected Not Detected LAB MICROBIOLOGY METHOD 08/22/2025 2:42 PM EDT [facility] Bordetella pertussis Not Detected Not Detected LAB MICROBIOLOGY METHOD 08/22/2025 2:42 PM EDT [facility] Bordetella parapertussis Not Detected Not Detected LAB MICROBIOLOGY METHOD 08/22/2025 2:42 PM EDT [facility] Mycoplasma pneumo by PCR Not Detected Not Detected LAB MICROBIOLOGY METHOD 08/22/2025 2:42 PM EDT [facility] Chlamydia pneumoniae Not Detected Not Detected LAB MICROBIOLOGY METHOD 08/22/2025 2:42 PM EDT [facility] SARS COV-2 Not Detected Not Detected LAB MICROBIOLOGY METHOD 08/22/2025 2:42 PM EDT [facility] Swab Both anterior nares / Unknown Non-blood Collection / Unknown 08/22/2025 1:33 PM EDT 08/22/2025 1:47 PM EDT [facility] - 08/22/2025 2:42 PM EDT Testing was performed using the vendome 1699 Respiratory Pathogen PCR Assay. All results must [...] ORDER EMILIE Final Result Performing Organization Address [facility]/ZIP Co de Phone Number [facility] [address] [place] [address], [place] [phone] * MRSA molecular study (08/21/2025 11:10 PM EDT) [facility] MRSA Screen PCR Not Detected Not Detected LAB MICROBIOLOGY METHOD 08/22/2025 12:38 AM EDT [facility] Swab Both anterior nares / Unknown Non-blood Collection / Unknown 08/21/2025 11:10 PM EDT 08/21/2025 11:23 PM EDT Dusyt Fraire MD LAB MICROBIOLOGY - GENERAL ORDERABLES Final Result Performing Organization Address [facility]/ZIP Co de Phone Number [facility] [address] [place] [address], [place] [phone] * MR Foot wo and w Contrast [...] by: Socorro Snyder MD on 08/21/2025 20:08:19 us Joanne MIKE IMG MRI PROCEDURES Final Res ult * XR Chest 2 Views (08/21/2025 3:20 AM EDT) Anatomical Region Laterality Modality Body Radiographic Ritika ging 08/21/2025 9:31 AM EDT Impressions 08/21/2025 9:32 AM EDT Impression: 1. Stable borderline cardiomegaly status post coronary artery surgery. 2. Lungs grossly clear. Telepaul MIKE ([id number]) -------- FINAL REPORT -------- Dictated By: Tawanna Knott Dictated Date: 08/21/2025 09:31 ET Assigned Physician: Tawanna Knott Reviewed and Electronically Signed By: Tawanna Knott Signed Date: 08/21/2025 09:32 ET Workstation ID: [id number] Transcribed By: Self Edit Transcribed Date: 08/21/2025 [...] surgery. 2. Lungs grossly clear. Telepaul MIKE ([id number]) -------- FINAL REPORT -------- Dictated By: Tawanna Knott Dictated Date: 08/21/2025 09:31 ET Assigned Physician: Tawanna Knott Reviewed and Electronically Signed By: Tawanna Knott Signed Date: 08/21/2025 09:32 ET Workstation ID: [id number] Transcribed By: Self Edit Transcribed Date: 08/21/2025 09:31 ET Codey Daniels MD IMG XR PROCEDURES Final Resu lt * Lactate, with Reflex (08/21/2025 12:20 AM EDT) LACTIC ACID 1.1 0.4 - 2.0 mmol/L LAB CHEMISTRY METHOD 08/21/2025 12:57 AM EDT [facility] [facility] Blood Venous blood specimen / Unknown Venipuncture / Unknown 08/21/2025 12:20 AM EDT 08/21/2025 12:26 AM EDT Codey Daniels MD LAB BLOOD ORDERABLES Final R esult [facility] [address] [place] [address], [place] [phone] * APTT (08/21/2025 12:20 AM EDT) aPTT 30.3 24.1 - 39.3 sec LAB COAGULATION METHOD 08/21/2025 2:19 AM EDT [facility] Blood Venous blood specimen / Unknown Venipuncture / Unknown 08/21/2025 12:20 AM EDT 08/21/2025 12:26 AM EDT Codey Daniels MD LAB BLOOD ORDERABLES Final R esult [facility] [address] [place] [address], [place] [phone] * (ABNORMAL) Sedimentation rate (08/21/2025 12:20 AM EDT) Sed Rate 63(H) 0 - 30 mm/hr LAB HEMETOLOGY METHOD 08/21/2025 6:21 AM EDT [facility] Blood Venous blood specimen / Unknown Venipuncture / Unknown 08/21/2025 12:20 AM EDT 08/21/2025 12:26 AM EDT Joanne MIKE LAB BLOOD ORDERABLES Final R esult [facility] [address] [place] [address], [place] [phone] * Protime-INR (08/21/2025 12:20 AM EDT) [facility] Protime 12.5 10.6 - 13.9 sec LAB COAGULATION METHOD 08/21/2025 2:20 AM EDT [facility] INR 1.0 LAB COAGULATION METHOD 08/21/2025 2:20 AM EDT [facility] Blood Venous blood specimen / Unknown Venipuncture / Unknown 08/21/2025 12:20 AM EDT 08/21/2025 12:26 AM EDT Codey Daniels MD LAB BLOOD ORDERABLES Final R esult Performing Organization Address City/[facility]/ZIP Co de Phone Number [facility] [address] [place] [address], [place] [phone] * (ABNORMAL) C-reactive protein (08/21/2025 12:20 AM EDT) [facility] C-Reactive Protein 5.18(H) <=0.50 mg/dL LAB CHEMISTRY METHOD 08/21/2025 6:26 AM EDT [facility] Blood Venous blood specimen / Unknown Venipuncture / Unknown 08/21/2025 12:20 AM EDT 08/21/2025 12:26 AM EDT us Joanne MIKE LAB BLOOD ORDERABLES Final R esult [facility] [address] [place] [address], [place] [phone] * (ABNORMAL) Comprehensive Metabolic Panel (CMP) (08/21/2025 [...] unit/L LAB CHEMISTRY METHOD 08/21/2025 12:57 AM EDT [facility] Total Protein 7.4 6.0 - 8.0 g/dL LAB CHEMISTRY METHOD 08/21/2025 12:57 AM EDT [facility] Albumin 3.4 3.2 - 5.0 g/dL LAB CHEMISTRY METHOD 08/21/2025 12:57 AM EDT [facility] Total Bilirubin 0.4 0.0 - 1.4 mg/dL LAB CHEMISTRY METHOD 08/21/2025 12:57 AM EDT [facility] Blood Venous blood specimen / Unknown Venipuncture / Unknown 08/21/2025 12:20 AM EDT 08/21/2025 12:26 AM EDT us Codey Daniels MD LAB BLOOD ORDERABLES Final R esult [facility] [address] [place] [address], * ME CRITICAL CARE 30-74 MINUTES (08/20/2025 8:02 PM [...] iv benadryl and fluids with multiple reassessments us Codey Daniels MD IN CLINIC/BEDSIDE ORDERABLES Final [...] to treatment: Procedure was tolerated well Shane Cash PA IN CLINIC/BEDSIDE ORDERABLE S Final Result * [...] for biopsy. PQRI CPT II 3342F Code 47623, 99444 PQRI 225 CPT II 7025F TISSUE DENSITY: There are scattered areas of fibroglandular density. (BI-RADS category B) IMPRESSION: Benign. BI-RADS CATEGORY: 2 - BENIGN RECOMMENDATION: Screening bilateral mammogram is recommended in 1 year. Mammo Location: [facility], [address] [place] [id number] -------- FINAL REPORT -------- Dictated By: Erik Coe Dictated Date: 07/09/2025 11:13 ET Assigned Physician: Erik Coe Reviewed and Electronically Signed By: Erik Coe Signed Date: 07/09/2025 11:17 ET Workstation ID: [id number] Transcribed By: Self Edit Transcribed Date: 07/09/2025 11:13 ET Narrative 07/09/2025 11:17 AM EDT CLINICAL: The patient is a 50 years Female presenting for routine screening mammography. COMPARISON: Outside studies most recently 04/03/2024 and most remotely 08/04/2015. TECHNIQUE: Full-field digital mammography of the breasts bilaterally consisting of tomosynthesis in MLO and CC projection is performed in the [employer] 2000-D unit. Computer aided detection utilizing the [...] MLO and CC projection is performed in the[employer] 2000-D unit. Computer aided detection utilizing the iCADsystem was utilized. FINDINGS: The breasts are again [...] for biopsy. PQRI CPT II 3342F Code 10063, 17224 PQRI 225 CPT II 7025F TISSUE DENSITY: There are scattered areas of fibroglandular density.(BI-RADS category B) IMPRESSION: Benign. BI-RADS CATEGORY: 2 - BENIGN RECOMMENDATION: Screening bilateral mammogram is recommended in 1 year. Mammo Location: [facility], [address] [place] [address] -------- FINAL REPORT -------- Dictated By: Erik Coe Dictated Date: 07/09/2025 11:13 ET Assigned Physician: Erik Coe Reviewed and Electronically Signed By: Erik Coe Signed Date: 07/09/2025 11:17 ET Workstation ID: [id number] Transcribed By: Self Edit Transcribed Date: 07/09/2025 11:13 ET Result [facility] Yolie Desir MD IMG BI PROCEDURES Final Resu lt * HIV Screening (08/24/2017) Pathologist [facility] HIV Screening abstracted Result [facility] Historical Provider HEALTH MAINTENANCE Final Result * Hepatitis C Screening (08/24/2017) Pathologist [facility] Hepatitis C Screening abstracted Result [facility] Historical Provider HEALTH MAINTENANCE Final Result * Pap Smear (07/17/2015) Pathologist [facility] Pap smear no interpretation , abstracted Result [facility] Historical Provider HEALTH MAINTENANCE Final Result from Last 3 Months or Most Recently Relevant to Health Maintenance Additional Health Concerns Active Problems Noted Date Diagnosed Date Impaired Tissue 06/05/2025 Education needed on impact of smoking on wound 0 06/05/2025 Education needed related to ulceration/compromised skin integrity. 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 Care Teams Director Product Development Relationship Specialty Start Date End Date Yolie Desir MD [address] [place] [phone] [facility] - General 07/25/24
--- OUTSIDE RECORDS SUMMARY | 2025-11-05 13:39 | XMS_ITS | Encounter Summary ---
Author Organization [email or web address] [facility] Address [address] [place] [address] [address] [place] [address] Care Team Providers Care Maintenance Foreman Name Role Phone Yolie Desir MD Primary Care Provider + Reason for Visit * Reason Onset Date Comments Prior Authorization 10/28/2022 Encounter Details Date Type Department Care Team (Late st Contact Info) Description 10/28/2022 Telephone [facility] [address] [place], [place] [phone] Yolie Desir MD [address] [place], [place] [phone] Prior Authorization Social History Tobacco Use Types [...] Description 12/13/2025 11:45 AM EST Office Visit [facility] [address] [place] [address] Yolie Desir MD [address] [place] [address] documented as of this encounter Visit Diagnoses Not on filedocumented in this encounter Care Teams Maintenance Foreman Relationship Specialty Start Date End Date Yolie Desir MD [address] [place] [address] PCP - General Family Medicine 10/26/19 Hilda Cardoso F[place] Boat CaptainFire Investigation Manager 04/18/25 Hilda Cardoso Administrative ReceptionistFire Investigation Manager 05/22/25 [facility] 08/29/25 documented as of this encounter
--- OUTSIDE RECORDS SUMMARY | 2025-11-05 13:39 | XMS_ITS | Encounter Summary ---
Author Organization [employer] Address [address] [facility] [address] [place] [address] Care Team Providers Care Team Leader Name Role Phone Yolie Desir MD Primary Care Provider + Reason for Visit * Reason Comments Med Refill Encounter Details Date Type Department Care Team ([facility] st Contact Info) Description 01/02/2024 Refill [facility] [address] [place], [place] [phone] [facility] [address] [place] [address] Acute on chronic congestive heart failure, unspecified [...] Description 12/13/2025 11:45 AM EST Office Visit [facility] [address] [place] [phone] Yolie Desir MD [address] [place] [address] documented as of this encounter Visit Diagnoses Diagnosis Acute on chronic congestive heart failure, unspecified heart failure type (HCC) documented in this encounter Additional Health Concerns Assessment Noted Time PHQ-9 Depression Total Score: 8 02/11/20 23 9:24 AM EDT documented as of this encounter Care Teams Team Leader Relationship Specialty Start Date End Date Yolie Desir MD [address] [place] [phone] PCP - General Family Medicine 10/26/19 Hilda Cardoso Shop Mechanic HelperPrice Lister 04/18/25 Hilda Cardoso Child And Adolescent TherapistPrice Lister 05/22/25 [facility] 08/29/25 documented as of this encounter
--- OUTSIDE RECORDS SUMMARY | 2025-11-05 13:39 | XMS_ITS | Encounter Summary ---
Author Organization [employer] Address [address] [facility] [address] [place] [address] Care Team Providers Care Reconciliation Coordinator Name Role Phone Yolie Desir MD Primary Care Provider + Reason for Visit * Reason Comments Med Refill Encounter Details Date Type Department Care Team (Late st Contact Info) Description 12/29/2023 Refill [facility] [address] [place], [place] [phone] Yolie Desir MD [address] [place], [place] [phone] Diabetic nephropathy associated with type 2 diabetes mellitus ([facility]/HCC) Social History Tobacco Use Types Packs/Day [...] Description 12/13/2025 11:45 AM EST Office Visit [facility] [address] [place] [phone] Yolie Desir MD [address] [place] [phone] documented as of this encounter Visit Diagnoses Diagnosis Diabetic nephropathy associated with type 2 diabetes mellitus (HCC) documented in this encounter Additional Health Concerns Assessment Noted Time PHQ-9 Depression Total Score: 8 02/11/20 23 9:24 AM EDT documented as of this encounter Care Teams Reconciliation Coordinator Relationship Specialty Start Date End Date Yolie Desir MD [address] [place] [phone] PCP - General Family Medicine 10/26/19 Hilda Cardoso Data ClerkDistrict Manager Postal Service 04/18/25 Hilda Cardoso Asbestos Abatement TechnicianDistrict Manager Postal Service 05/22/25 [facility] 08/29/25 documented as of this encounter
--- OUTSIDE RECORDS SUMMARY | 2025-11-05 13:39 | XMS_ITS ---
Care Plan Created on: November 05, 2025 Melissa Barnett : 1975 Sex: Female Author Organization [facility] Address [address] [place] [address] Phone Care Team Providers Care Certified Ophthalmic Medical Technician Name Role Phone Yolie Desir MD Primary Care Provider + [phone] Active Problems Problem Noted Date Diagnosed Date [...] diabetes mellitus with foot ulcer (CODE) 09/28/2024 Additional Health Concerns Active Problems Noted Date Diagnosed Date Impaired Tissue 06/05/2025 Education needed on impact of smoking on wound 0 06/05/2025 Education needed related to ulceration/compromised skin integrity. 06/05/2025 Goals Goal Patient Goal Type Associated Problems Recent Progress Patient-Stated? Author Decrease Wound Volume by X% by date (in notes) Care Plan Impaired Tissue Worsening( 2:42 PM EDT) No Kristie Sauer RN Patient and Caregiver Understand Wound Care Education Care Plan Impaired Tissue Not on track( 025 2:42 PM EDT) No Kristie Sauer barrel rifler broach volume breakdown reduced by X% by week 4 Care Plan Impaired Tissue No Kristie Sauer, barrel rifler broach volume breakdown reduced by X% by week [...]
--- OUTSIDE RECORDS SUMMARY | 2025-11-05 13:39 | XMS_ITS | Clinical Summary ---
Author Organization [employer] Address [address] [place] [address] [address] [place] [address] Care Team Providers Care Bevel Mill Operator Name Role Phone Boo Ashby MD Primary Care Provider + Allergies Active Allergy Reactions Criticality Noted Date Comments Levofloxacin Unknown 03/15/2019 Sulfamethoxazole-Trimeth oprim Other,Unknown 04/13/2021 Macular Edema per [facility] Notes Trimethoprim 04/13/2021 Vancomycin Other,Anaphylaxis High 08/20/2025 Medications * This document contains information [...] MOUTH AT BEDTIME Active TRUEplus [facility] TEST BLOOD SUGAR SIX TIMES DAILY Active nitroglycerin (Nitrostat) 0.4 MG SL tablet DISSOLVE 1 TABLET UNDER THE TONGUE EVERY 5 MINUTES NEEDED FOR CHEST PAIN. CALL 911 IF NO RELIEF Active Spacer/Aero-Hol ding Chambers (OptiChamber Colleen) misc [...] EVERY 10 DAYS Active Continuous Blood Gluc Kayak Maker (Dexcom G6 lab support tech) device USE DIRECTED Active carvedilol (Coreg) 6.25 MG tablet TAKE 1 TABLET BY MOUTH TWICE DAILY IN THE MORNING AND IN THE EVENING Active mometasone (Elocon) 0.1 % ointment APPLY APPROXIMATELY 2 GRAMS TOPICALLY TO AFFECTED AREA(S) DAILY IN THE MORNING 45 g 3 Active triamcinolone (Kenalog) 0.1 % creamIndication s:Xerosis of skin APPLY TOPICALLY TWICE DAILY. MIX WITH CERAVE CREAM DIRECTED. 80 g Active glucose (Glutose) 40 % gel oral gel Take 15 g by mouth if needed for low blood sugar. 60 g 11 Active Advair Diskus 250-50 MCG/ACT aerosol powder INHALE 1 PUFF BY MOUTH TWICE DAILY IN THE MORNING AND IN THE EVENING, RINSE MOUTH AFTER USING. 60 each 11 Active Ventolin HFA 108 (90 Base) MCG/ACT inhaler INHALE 2 PUFFS BY MOUTH EVERY 4 HOURS NEEDED FOR WHEEZING OR SHORTNESS OF BREATH 18 g 1 Active albuterol (2.5 MG/3ML) 0.083% nebulizer solutionIndicat ions:Mild intermittent asthma without complication INHALE 1 AMPULE USING A NEBULIZER EVERY 6 HOURS NEEDED FOR WHEEZING OR SHORTNESS OF BREATH 90 mL 2 Active ferrous gluconate (Fergon) 324 (38 Fe) MG tabletIndicatio ns:Iron deficiency anemia due to chronic blood loss TAKE 1 TABLET BY MOUTH TWICE DAILY AT NOON AND IN THE EVENING 180 tablet 3 Active ipratropium (Atrovent) 0.06 % nasal sprayIndication s:Acute cough USE 2 SPRAYS IN EACH NOSTRIL THREE TIMES DAILY 15 mL 1 Active buPROPion XL (Wellbutrin XL) 150 MG 24 hr tablet Take 1 tablet by mouth in the morning. Active Insulin Lispro 100 UNIT/ML solution INJECT UP TO 120 UNITS SUBCUTANEOUSLY EVERY DAY BY INSULIN PUMP Active Comfort EZ Pen [place] 31G X 8 MM misc USE DIRECTED FOUR TIMES DAILY Active Mounjaro 2.5 MG/0.5ML solution auto-injector Inject 2.5 mg under the skin 1 (one) time per week. Active povidone-iodine (Betadine) 10 % external solution Apply topically Once per day. Active zinc oxide 20 % ointment APPLY TOPICALLY TO THE AFFECTED AREA(S) EVERY DAY NEEDED FOR IRRITATION Active atorvastatin (Lipitor) 20 MG tablet Take [...] if needed (sore throat). 16 lozenge Active pantoprazole (ProtoNix) 40 MG EC tabletIndicatio ns:Epigastric pain TAKE 1 TABLET BY MOUTH EVERY MORNING 90 tablet Active gabapentin (Neurontin) 100 MG capsuleIndicati ons:Diabetic nephropathy associated with type 2 diabetes mellitus (HCC) TAKE 2 CAPSULES BY MOUTH THREE TIMES DAILY IN THE MORNING, EVENING AND BEDTIME 180 capsule 10/21/20 25 11:32 AM EST Active Farxiga 10 MG Take 10 mg by mouth Once per day. Active pantoprazole (ProtoNix) 40 MG EC tabletIndicatio ns:Epigastric pain TAKE 1 TABLET BY MOUTH EVERY MORNING 90 tablet 025 2024 Discontinued gabapentin (Neurontin) 100 MG capsuleIndicati ons:Diabetic nephropathy associated with type 2 diabetes mellitus (HCC) TAKE 2 CAPSULES BY MOUTH THREE TIMES DAILY IN THE MORNING, EVENING AND BEDTIME 180 capsule 025 2024 Discontinued guaiFENesin-dex tromethorphan (Robitussin DM) 100-10 MG/5ML syrupIndication s:Cough in adult patient Take 5 mL by mouth every 4 (four) hours if needed for cough for up to 10 days. 120 mL 2024 Active Problems Problem Noted Date Diagnosed Date Diabetic ulcer of both feet associated with type 2 diabetes mellitus 10/25/2025 Visit for preventive health examination 10/25/20 25 Class 1 obesity due to exces s [...] 02/20/25 Patient has diabetic neuropathy, follow-up with television maintenance man Assessment & Plan (05/30/2025 2:27 PM EDT): Fairly controlled, A1c 7.2. Continue Lantus 10 units nightly if she is off Humalog pump, otherwise use Humalog pump and follow-up with square cutter Continue Ozempic Follow-up with ophthalmology on 06/26, advised to reschedule appointment with television maintenance man Follow-up with me in 3 to 4 [...] Omnipod use. Continue to follow up with Rolling Attendant and change of medications. FU in 3 [...] to increase water intake and fu with [facility] in June for pelvic exam She will fu this afternoon with , square cutter Carpal tunnel syndrome of right wrist 01/23/2024 Overview (01/23/2024): NCS at [facility] on 12/2023= Median nerve [...] (05/30/2025 2:29 PM EDT): Follow-up with Dr. Maxwell/[facility], has appointment on July. 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 Move temporarily to sc Lantus + Humalog Assessment & Plan (01/08/2025 2:18 PM EST): >>ASSESSMENT AND PLAN FOR TYPE 2 DIABETES MELLITUS ([facility]) WRITTEN ON 08/02/2024 3:15 PM BY BOO ASHBY MD Controlled, last A1c on 01/2024 was at goal. I will do A1c at upcoming regular visit Patient had episode of hypoglycemia today, probably due to miscalculation of insulin dose adjustment. She will fu on Tuesday with community educator. She received glucose load today and [...] I congratulated her for reaching out to square cutter and compliance w/ medications I gave her information about diabetic diet, she's asking for more 1-1 manager shipping coaching, so I gave her information about wt reduction programs in the area Continue close fu w/ square cutter insulin pump + Ozempic Pt had intraocular [...] and will order x ray if needed Supply Chain Tech appt on Diabetic ulcer of left midfo ot associated with type 2 diabetes mellitus, with fat layer exposed 11/16/2022 09/12/2025 Assessment & Plan (05/30/2025 2:26 PM EDT): Patient cellulitis, status post's Doxy + Augmentin completed, doing well. Continue gentle also dressing by [facility]NA and refer to wound clinic. Advised to schedule appointment with television maintenance man, Dr. Castro of. Rx for diabetic shoes [...] to check finger stick and fu with square cutter. I told pt to call square cutter office to fu on prescription of CGM sensor Continue lantus 50 units + Omnipod insulin pod Pt to continue regular wound care at wound clinic for left DM ulcer continue laser therapy on right eye. She is legally blind in the left eye. order labs and FU with me in 3 months Assessment & Plan (01/23/2024 12:14 PM EST): Significantly improving, fu with [facility] wound clinic I will [...] organization. 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, with long-term current use of insulin, unspecified laterality (HCC) (Primary Dx); Diabetes mellitus type 2 with peripheral artery disease (HCC); Diabetic ulcer of both feet associated with type 2 diabetes mellitus (HCC); Visit for preventive health examination 10/25/2025 Orders Only GENERIC EXTERNAL DATA DEPARTMENT Provider, Generic External Data 10/25/2025 Travel 10/10/[address] [address] Boo Ashby MD 10/10/[address] [address] Boo Ashby MD abnormal pap f/u 10/10/2025 Patient Outreach [address] [address] Boo Ashby MD Pre-visit Planning (SDOH screening negative and tobacco screening negative) 10/09/[address] [address] Boo Ashby MD Epigastric pain; Diabetic nephropathy associated with type 2 diabetes mellitus (HCC) 10/08/[address] [address] Idalia Silva RN Cologuard ([facility] Outreach) 10/08/[address] [address] Boo Ashby MD Durable Medical Equipment 10/03/2025 Orders Only GENERIC EXTERNAL DATA DEPARTMENT Provider, Generic External Data 09/27/2025 2:45 PM EST Office Visit [address] [address] Xuan Lozada NP Sore throat; Cough in adult patient 09/27/2025 Travel 09/27/[address] [phone] Boo Ashby MD Nurse Triage 09/16/2025 Telephone [facility] [address] [place] [phone] Boo Ashby MD Call Back Request; fyi 09/12/2025 10:45 AM EDT Office Visit [address] [address] Boo Ashby MD Encounter for screening for malignant neoplasm of colon (Primary Dx); Diabetes mellitus type 2 with peripheral artery disease (HCC); Encounter for vaccination; Encounter for immunization; Screening for colon cancer 09/12/2025 Travel 09/11/[address] [address] Boo Ashby MD CHART PREP 09/09/2025 Refill [facility] [address] [place] [phone] Boo Ashby MD Diabetic nephropathy associated with type 2 diabetes mellitus (HCC) 09/09/2025 Refill [facility] [address] [place] [phone] Boo Ashby MD Diabetic nephropathy associated with type 2 diabetes mellitus (HCC) 09/03/2025 Telephone [facility] [address] [place] [phone] Boo Ashby MD verbal orders 08/29/2025 Telephone [facility] [address] [place] [phone] Boo Ashby MD Medication Question 08/29/2025 Patient Outreach [address] [address] Boo Ashby MD Transition Of Care (Tcm) (HDF unscheduled ) 08/23/2025 Telephone [facility] [address] [place] [phone] Boo Ashby MD oct recall 08/22/2025 Patient Outreach [facility] [address] [place] [phone] Boo Ashby MD Pre-visit Planning (SDOH screening completed on 12/25/2024) 08/22/2025 Telephone [facility] [address] [place] [phone] Boo Ashby MD r/s appt 08/30/25 08/20/2025 Telephone [facility] [address] [place] [address] Boo Ashby MD R/S appt 08/30/25 08/13/2025 Results Follow-Up [facility] [address] [place] [address] Xuan Lozada NP Vitamin D, 25-Hydroxy, Total, Immunoassay, TSH W/Reflex to FT4 08/12/2025 Orders Only GENERIC EXTERNAL DATA DEPARTMENT Provider, Generic External Data 08/06/2025 Refill [facility] [address] [place] [address] Boo Ashby MD Diabetic nephropathy associated with type 2 diabetes mellitus ([facility]) from Last 3 Months Immunizations Immunization Administration [...] pur e alcohol) Alcohol Answer Date Recorded How often do you have a drink containing alcohol ? 0 10/25/2025 Average Number of Drinks Not on file 025 How often do you have six or more drinks on one occasion? 0 10/25/2025 Depression Answer Date Recorded Patient Health Questionnaire-9 [...] Sign Reading Time Taken Comments Blood Pressure 110/64 10/25/2025 11:29 AM EST Pulse 75 10/25/2025 11:29 AM EST Temperature 36.4 C (97.6 F) 10/25/2025 11:29 AM EST Respiratory Rate 18 10/25/2025 11:29 AM EST Oxygen Saturation 98% 10/25/2025 11:29 AM EST Inhaled Oxygen Concentration - - Weight 87.4 kg (192 lb 9.6 oz) 10/25/2025 11:29 AM EST Height 170.2 cm (5' 7 ) 10/25/2025 11:29 AM EST Body Mass Index 30.17 10/25/2025 11:29 AM EST Plan of Treatment Upcoming Encounters Date Type Department Care Team (Late st Contact Info) Description 12/13/2025 11:45 AM EST Office Visit [facility] [address] [place], [place] [phone] Boo Ashby MD [address] [place] [address] Health Maintenance Due Date Last Done Comments CT Colonography 1973 Colonoscopy 1973 FIT 1973 HIV Screening 1973 Sigmoidoscopy 1973 Family Planning (PISQ) 1988 Hepatitis B Vaccines (1 of 3 - 19+ 3-dose series) 1992 RSV Patients and Patients Aged 60 years or older (1 - Risk 50-74 years 1-dose series) 2023 Zoster Vaccines (1 of 2) 2023 FOBT 03/21/2024 03/21/2023 Cervical Cancer Screening 11/03/2024 HPV/Cotest 11/03/2024 03/15/2023, 03/15/2023 Pap Smear 11/03/2024 03/15/2023, 03/15/2023 Diabetes: Hemoglobin A1C 12/13/2025 025, 05/30/2025, 01/08/2025, Additional history exists Eye Exam 02/20/2026 02/20/2025, 09/09/2022 Colorectal Cancer Screening 03/21/2026 FIT DNA/Cologuard 03/21/2026 03/21/2023 Alcohol/Substance Use Screening 05/30/2026 05/30/2025 Depression Screening 05/30/2026 05/30/2025, 05/30/20 25 Disability Screening 05/30/2026 05/30/2025 Mammogram 06/28/2026 06/28/2025, 08/0 06/2025, 06/28/2025, Additional history exists Diabetes: Foot Exam 09/12/2026 09/12/2025, 09/12/2025, 09/12/2025, Additional history exists SDOH Screening 10/10/2026 10/10/2025 Lipid Panel 10/25/2026 10/25/2025, 08/0 03/2024, 11/01/2022, Additional history exists Tobacco Screening 10/25/2026 10/25/2025 DTaP/Tdap/Td Vaccines (2 - Td or Tdap) 09/19/2027 09/19/2017 Pneumococcal Vaccine: 50+ Years Completed 02/10/2023, 09/19/2017, 12/10/2015, Additional history exists COVID-19 Vaccine Completed 09/12/2025, , 10/21/2021, Additional history exists Influenza Vaccine Completed 09/12/2025, , 10/20/2022, Additional history exists Hepatitis C Screening Completed 10/25/2025 HIB Vaccines Aged Out No longer eligi [...] Type Associated Problems Recent Progress Patient-Stated? Author Help patients manage their type 2 diabetes Care Plan Help patients manage their type 2 diabetes Boo Lugo MD Weekly blood pressure task Care Plan Weekly blood pressure task Boo Lugo MD Help patients manage their type 2 diabetes Care Plan Help patients manage their type 2 diabetes Boo Lugo MD Patient has diabetic eye disease Care Plan Patient has diabetic eye disease Boo Lugo MD Help patients manage their type 2 diabetes Care Plan Help patients manage their type 2 diabetes No Boo Ashby MD Patient has chronic kidney disease Care Plan Patient has chronic kidney disease No Boo Ashby MD Weekly blood pressure task Care Plan Weekly blood pressure task No PearsonDu jennings Weekly blood pressure task Care Plan Weekly blood pressure task No Pearson, Du Weekly blood pressure task Care Plan Weekly blood pressure task No Pearson, Du Patient has diabetic eye disease Care Plan Patient has diabetic eye disease No Pearson, Du Patient has diabetic eye disease Care Plan Patient has diabetic eye disease No Pearson, Ud Patient has diabetic eye disease Care Plan Patient has diabetic eye disease No Pearson, Du Patient has chronic kidney disease Care Plan Patient has chronic kidney disease No Pearson, Du Patient has chronic kidney disease Care Plan Patient has chronic kidney disease No Michel, Du Patient has chronic kidney disease Care Plan Patient has chronic kidney disease No Du Pearson Weekly blood pressure task Care Plan Weekly blood pressure task No Idalia Silva RN Weekly blood pressure task Care Plan Weekly blood pressure task No Idalia Silva RN Weekly blood pressure task Care Plan Weekly blood pressure task No Idalia Silva RN Patient has diabetic eye disease Care Plan Patient has diabetic eye disease No Idalia Silva RN Patient has diabetic eye disease Care Plan Patient has diabetic eye disease No Idalia Silva RN Patient has diabetic eye disease Care Plan Patient has diabetic eye disease No Idalia Silva RN Patient has chronic kidney disease Care Plan Patient has chronic kidney disease No Idalia Silva RN Patient has chronic kidney disease Care Plan Patient has chronic kidney disease No Idalia Silva RN Patient has chronic kidney disease Care Plan Patient has chronic kidney disease No Idalia Silva RN Weekly blood pressure task Care Plan Weekly blood pressure task No Xuan Lozada NP Weekly blood pressure task Care Plan Weekly blood pressure task No Xuan Lozada NP Weekly blood pressure task Care Plan Weekly blood pressure task No Xuan Lozada NP Patient has diabetic eye disease Care Plan Patient has diabetic eye disease No Xuan Lozada NP Patient has diabetic eye disease Care Plan Patient has diabetic eye disease No Xuan Lozada NP Patient has diabetic eye disease Care Plan Patient has diabetic eye disease No Xuan Lozada NP Patient has chronic kidney disease Care Plan Patient has chronic kidney disease No Xuan Lozada NP Patient has chronic kidney disease Care Plan Patient has chronic kidney disease No Xuan Lozada NP Patient has chronic kidney disease Care Plan Patient has chronic kidney disease No Xuan Lozada NP Weekly blood pressure task Care Plan Weekly blood pressure task No Yana Salgado Weekly blood pressure task Care Plan Weekly blood pressure task No Yana Salgado Weekly blood pressure task Care Plan Weekly blood pressure task No Yana Salgado Patient has diabetic eye disease Care Plan Patient has diabetic eye disease No Yana Salgado Patient has diabetic eye disease Care Plan Patient has diabetic eye disease No Yana Salgado Patient has diabetic eye disease Care Plan Patient has diabetic eye disease No Yana Salgado Patient has chronic kidney disease Care Plan Patient has chronic kidney disease No Yana Salgado Patient has chronic kidney disease Care Plan Patient has chronic kidney disease No Yana Salgado Patient has chronic kidney disease Care Plan Patient has chronic kidney disease No Yana Salgado Weekly blood pressure task Care Plan Weekly blood pressure task No Mott, Ilsa MA Weekly blood pressure task Care Plan Weekly blood pressure task No Mott, Ilsa MA Weekly blood pressure task Care Plan Weekly blood pressure task No Mott, Ilsa MA Patient has diabetic eye disease Care Plan Patient has diabetic eye disease No Mott, Ilsa [place] Patient has diabetic eye disease Care Plan Patient has diabetic eye disease No Mott, Ilsa [place] Patient has diabetic eye disease Care Plan Patient has diabetic eye disease No Mott, Ilsa [place] Patient has chronic kidney disease Care Plan Patient has chronic kidney disease No Mott Ilsa [place] Patient has chronic kidney disease Care Plan Patient has chronic kidney disease No Mott IlsaPRETTY Patient has chronic kidney disease Care Plan Patient has chronic kidney disease No Mott, Ilsa, [place] Weekly blood pressure task Care Plan Weekly blood pressure task No Mott, Ilsa, [place] Weekly blood pressure task Care Plan Weekly blood pressure task No Mott, Ilsa, [place] Weekly blood pressure task Care Plan Weekly blood pressure task No Mott, Ilsa, [place] Patient has diabetic eye disease Care Plan Patient has diabetic eye disease No Mott, Ilsa, [place] Patient has diabetic eye disease Care Plan Patient has diabetic eye disease No Mott, Ilsa [place] Patient has diabetic eye disease Care Plan Patient has diabetic eye disease No Mott Ilsa [place] Patient has chronic kidney disease Care Plan Patient has chronic kidney disease No Mott Ilsa [place] Patient has chronic kidney disease Care Plan Patient has chronic kidney disease No MottIlsa alejandre [place] Patient has chronic kidney disease Care Plan Patient has chronic kidney disease No Ilsa Mott MA Weekly blood pressure task Care Plan Weekly blood pressure task No Ilsa Mott MA Weekly blood pressure task Care Plan Weekly blood pressure task No Ilsa Mott MA Weekly blood pressure task Care Plan Weekly blood pressure task No MottIlsa alejadnre [place] Patient has diabetic eye disease Care Plan Patient has diabetic eye disease No Ilsa Mott [place] Patient has diabetic eye disease Care Plan Patient has diabetic eye disease No Ilsa Mott [place] Patient has diabetic eye disease Care Plan Patient has diabetic eye disease No Ilsa Mott [place] Patient has chronic kidney disease Care Plan Patient has chronic kidney disease No Ilsa oMtt [place] Patient has chronic kidney disease Care Plan Patient has chronic kidney disease No Ilsa Mott [place] Patient has chronic kidney disease Care Plan Patient has chronic kidney disease No Ilsa Mott [place] Procedures Procedure Name Priority Date/Time Associated Diagnosis Comments LIPID PANEL, STANDARD Routine 10/25/2025 12:11 PM EST BASIC METABOLIC PANEL Routine 10/25/2025 12:11 PM EST PROTEIN CREATININE RATIO, URINE Routine 10/25/2025 12:11 PM EST HEPATITIS PANEL, GENERAL Routine 10/25/2025 12:11 PM EST Visit for preventive health examination T-SPOT(R).TB Routine 10/25/2025 12:11 PM EST Visit for preventive health examination POCT GLUCOSE Routine 10/25/2025 11:32 AM EST 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, with long-term current use of insulin, unspecified laterality (HCC) GLUCOSE, WHOLE BLOOD Routine 10/03/2025 3:13 PM [...] associated with type 2 diabetes mellitus (CMS/HCC) HPV GENOTYPES 16,18/45 Routine 03/15/2023 11:10 AM EDT HM PAP/HPV Routine 03/15/2023 from Last 3 Months or Most Recently Relevant to Health Maintenance Results * (ABNORMAL) Protein Creatinine Ratio, Urine (10/25/2025 12:11 PM EST) Creatinine, Urine 119.00 mg/dL [facility] Protein, Total, Random Urine 15(H) <12 mg/dL [facility] Protein/Creati nine Ratio, Ur 0.13 <0.2 [facility] Comment:The spot urine prote in:creatinine ratio may increase to 0.3during normal . 10/25/2025 12:1 1 PM EST 10/25/2025 12:49 PM EST us Generic External Data Provider LAB URINE ORDERAB LES Final Result Performing Organization Address [facility]/ZIP Co de Phone Number [facility] [address] [place] [address] [phone] * T-SPOT??.TB (10/25/2025 12:11 PM EST) T Spot TB Negative Negative [facility] Comment:A negative test resu lt does not exclude the possibilityof exposure to or infection with Mycobacteriumtuberculosis (M. tuberculosis). Patients with recentexposure to TB infected individuals exhibiting anegative T-SPOT.TB result should be considered forretesting within 6 weeks or if other relevant clinicalsymptoms indicate. Results from T-SPOT.TB testing mustbe used in conjunction with each individual'sepidemiological history, current medical status,and results of other diagnostic evaluations.The T-SPOT.TB test is qualitative and results arereported as positive, borderline, or negative, giventhat the test controls perform as expected. In linewith the Centers for Disease Control and Prevention's2010 recommendation to report quantitative measurementsalongside the qualitative result, the laboratoryprovides spot counts for informational purposes only.The T-SPOT.TB test should not be interpreted as aquantitative test. TS PANEL A 0 [facility] TS PANEL B 0 [facility] Negative Control Passed [facility] Positive Control Passed [facility] Comment:For additional infor erica, please refer tohttp://education.BDA.Disruptor Beam/faq/PAS198(This link is being provided for informational/educational purposes only.)THIS TEST WAS PERFORMED AT:[facility] [id number] [place] [id number] BUENO MD,PHD 10/25/2025 12:1 1 PM EST 10/25/2025 12:53 PM EST us Boo Ashby MD LAB BLOOD ORDERABLES Fin al Result Performing Organization Address [facility]/ZIP Co de Phone Number [facility] [address] [place] [phone] * Hepatitis Panel, General (10/25/2025 12:11 PM EST) Hepatitis A IgM Nonreactive Nonreactive [facility] Comment:IgM antibodies to PINEDA V not detected; does not exclude earlyacute or recovered HAV infection. ~Hepatitis B Surface Antibody NONREACTIVE Nonreactive [facility] Comment:Nonreactive: < 8.00 mIU/mL Hepatitis B Core Antibody Nonreactive Nonreactive [facility] Hepatitis C Antibody Nonreactive Nonreactive [facility] Comment:Antibodies to HCV no t detected; does not exclude early acuteHCV infection. Hepatitis B Surface Ag Negative Negative [facility] Blood 10/25/2025 12:1 1 PM EST 10/25/2025 12:53 PM EST us Boo Ashby MD LAB BLOOD ORDERABLES Fin al Result [facility] [address] [place] [address] [phone] * (ABNORMAL) Lipid Panel, Standard (10/25/2025 12:11 PM EST) Triglycerides 129 <150 mg/dL [facility] Comment:Desirable Triglyceri de: less than 150 mg/dLBorderline High Triglyceride 150-199 mg/dLHigh Triglyceride: 200-499 mg/dLVery High Triglyceride: greater than or equal to 5OO mg/dL Cholesterol 196 <200 mg/dL [facility] Comment:Desirable Cholestero l: less than 200 mg/dLBorderline High Cholesterol: 200-239 mg/dLHigh Cholesterol: greater than 239 mg/dL LDL Cholesterol Calculated 123(H) <100 mg/dL [facility] Comment:Desirable LDL: less than 100 mg/dLNear Optimal/Above Optimal LDL: 110- 129 mg/dLBorderline High LDL: 130-159 mg/dLHigh LDL: 160-189 mg/dLVery High LDL: greater than or equal to 190 mg/dL HDL Cholesterol 48 >40 mg/dL [facility] Comment:Desirable HDL: great er than 40 mg/dL Note: This HDL assay may give artificially low results in patients with liver disease. 10/25/2025 12:1 1 PM EST 10/25/2025 12:53 PM EST Generic External Data Provider LAB BLOOD ORDERAB LES Final Result Performing Organization Address [facility] Co de Phone Number [facility] [address] [place] [address] [phone] * (ABNORMAL) Basic Metabolic Panel (10/25/2025 12:11 PM EST) [facility] Sodium 142 135 - 145 mmol/L [facility] Potassium 3.2(L) 3.3 - 5.1 mmol/L [facility] Chloride 101 96 - 108 mmol/L [facility] Carbon Dioxide 32(H) 22 - 29 mmol/L [facility] Anion Gap 12 12 - 20 [facility] Urea Nitrogen (BUN) 22(H) 9 - 16 mg/dL [facility] Creatinine, Serum 1.01 0.5 - 1.4 mg/dL [facility] Estimated Glomerular Filt Rate 58 [facility] Comment:Chronic Kidney Disea se: Estimated GFR < 60 mL/min/1.76u2Srrztf Kidney Disease: Estimated GFR < 15 mL/min/1.73m2 Glucose 94 60 - 115 mg/dL [facility] Calcium 10.3(H) 8.4 - 10.2 mg/dL [facility] 10/25/2025 12:1 1 PM EST 10/25/2025 12:53 PM EST us Generic External Data Provider LAB BLOOD ORDERAB LES Final Result Performing Organization Address [facility] Co de Phone Number [facility] [address] [place] [address] [phone] * POCT Glucose (10/25/2025 11:32 AM EST) Only the most recent of2 resultswithin the time period is included. Glucose Blood, POC 97 60 - 200 mg/dL QC Media Lot # [id number] Lot# Expiration Date Blood Capillary blood specimen / Unknown 10/25/2025 11:32 AM EST us Boo Ashby MD POINT OF CARE TEST ENTER /EDIT ORDERABLES Final Result * Glucose, Whole Blood (10/03/2025 3:13 PM EST) Only the most recent of2 resultswithin the time period is included. Pathologist [facility] Glucose, Whole Blood 76 60 - 115 mg/dL [facility] Comment:METER #: [id number] Testing performed in the Endocrinology Department [address] , [address], [facility]. 10/03/2025 3:13 PM EST 10/03/2025 3:18 PM EST us Generic External Data Provider LAB BLOOD ORDERAB LES Final Result [facility] [address] [place] [address] [phone] * POCT Rapid Strep A BENITES ID NOW (09/27/2025 2:34 PM EST) [facility] Rapid Strep A Screen Negative Negative, None Detected QC Media Lot # [id number] Lot# Expiration Date Swab 09/27/2025 2:34 PM EST us Xuan Lozada NP POINT OF CARE TEST ENTER/EDIT O RDERABLES Final Result * POCT Rapid Influenza B BENITES ID NOW (09/27/2025 2:29 PM EST) Pathologist [facility] Influenza B Negative Negative, Indeterminate [facility] QC Media Lot # [id number] [facility] Lot# Expiration Date [facility] Swab 09/27/2025 2:29 PM EST Xuan Lozada CARDIAC SPECIALIST POINT OF CARE TEST ENTER/EDIT O RDERABLES Final Result Performing Organization Address City/[facility]/ZIP Co de Phone Number [facility] [address] [place] [address] [phone] * POCT Rapid Influenza A BENITES ID NOW (09/27/2025 2:29 PM EST) Influenza A Negative Negative, Indeterminate [facility] QC Media Lot # [id number] [facility] Lot# Expiration Date , [facility] Swab 09/27/2025 2:29 PM EST Xuan Lozada CARDIAC SPECIALIST POINT OF CARE TEST ENTER/EDIT O RDERABLES Final Result Performing Organization Address [facility] Co de Phone Number [facility] [address] [place] [address] [phone] * POCT Rapid COVID-19 Binax NOW (09/27/2025 2:28 PM EST) Rapid COVID Ag Negative QC Media Lot # [id number] Lot# Expiration Date ,026 Swab 09/27/2025 2:28 PM EST Xuan Lozada CARDIAC SPECIALIST POINT OF CARE TEST ENTER/EDIT O RDERABLES Final Result * (ABNORMAL) POCT Hgb A1c (09/12/2025 11:23 AM EDT) Hemoglobin A1C 8.3(A) 4.0 - 5.7 % QC Media Lot # [id number] Lot# Expiration Date 51,227 Blood 09/12/2025 11:2 3 AM EDT Boo Ashby MD POINT OF CARE TEST ENTER /EDIT ORDERABLES Final Result * BI Mammogram Screening Tomosynthesis Bilateral (06/28/2025) Anatomical Region Laterality Modality Breast Bilateral Mammography Boo Ashby MD IMG BI PROCEDURES Final Result * Referral to Podiatry (04/24/2025) Boo Ashby MD OUTPATIENT REFERRAL ORDJoycelyn OQUENDO Final Result * (ABNORMAL) HPV Genotypes 16,18/45 (03/15/2023 11:10 AM EDT) HPV 16 RNA NOT DETECTED NOT DETECTED [facility] HPV 18/45 RNA DETECTED(A) NOT DETECTED [facility] Comment: Methodology: Business Analyst Project Manager Mediated Amplification Cervical sources are required for HPV testing. If a vaginal source from a patient who has had a total hysterectomy with removal of cervix was submitted, please contact the testing laboratory for alternative testing options. 03/15/2023 11:1 0 AM EDT 03/16/2023 6:23 AM EDT Boo Ashby MD LAB CYTOLOGY ORDERABLES Final Result [facility] [address], [place] [address] [facility] [address] [place] [address] * Hm Pap Smear (03/15/2023) HM Pap smear NIL HPV+ Kandice Provider HEALTH MAINTENANCE Final Result from Last 3 Months or Most Recently Relevant to Health Maintenance Additional Health Concerns Active Problems Noted Date Diagnosed Date Help patients manage their type 2 diabetes 10/08 Weekly blood pressure task 10/08/2025 Help patients manage their type 2 diabetes 10/08 Patient has diabetic eye disease 10/08/2025 Help patients manage their type 2 diabetes 10/08 Patient has chronic kidney disease 10/08/2025 Weekly blood pressure task 10/08/2025 Weekly blood pressure task 10/08/2025 Weekly blood pressure task 10/08/2025 Patient has diabetic eye disease 10/08/2025 Patient has diabetic eye disease 10/08/2025 Patient has diabetic eye disease 10/08/2025 Patient has chronic kidney disease 10/08/2025 Patient has chronic kidney disease 10/08/2025 Patient has chronic kidney disease 10/08/2025 Weekly blood pressure task 10/08/2025 Weekly blood pressure task 10/08/2025 Weekly blood pressure task 10/08/2025 Patient has diabetic eye disease 10/08/2025 Patient has diabetic eye disease 10/08/2025 Patient has diabetic eye disease 10/08/2025 Patient has chronic kidney disease 10/08/2025 Patient has chronic kidney disease 10/08/2025 Patient has chronic kidney disease 10/08/2025 Weekly blood pressure task 10/10/2025 Weekly blood pressure task 10/10/2025 Weekly blood pressure task 10/10/2025 Patient has diabetic eye disease 10/10/2025 Patient has diabetic eye disease 10/10/2025 Patient has diabetic eye disease 10/10/2025 Patient has chronic kidney disease 10/10/2025 Patient has chronic kidney disease 10/10/2025 Patient has chronic kidney disease 10/10/2025 Weekly blood pressure task 10/10/2025 Weekly blood pressure task 10/10/2025 Weekly blood pressure task 10/10/2025 Patient has diabetic eye disease 10/10/2025 Patient has diabetic eye disease 10/10/2025 Patient has diabetic eye disease 10/10/2025 Patient has chronic kidney disease 10/10/2025 Patient has chronic kidney disease 10/10/2025 Patient has chronic kidney disease 10/10/2025 Weekly blood pressure task 10/10/2025 Weekly blood pressure task 10/10/2025 Weekly blood pressure task 10/10/2025 Patient has diabetic eye disease 10/10/2025 Patient has diabetic eye disease 10/10/2025 Patient has diabetic eye disease 10/10/2025 Patient has chronic kidney disease 10/10/2025 Patient has chronic kidney disease 10/10/2025 Patient has chronic kidney disease 10/10/2025 Weekly blood pressure task 10/10/2025 Weekly blood pressure task 10/10/2025 Weekly blood pressure task 10/10/2025 Patient has diabetic eye disease 10/10/2025 Patient has diabetic eye disease 10/10/2025 Patient has diabetic eye disease 10/10/2025 Patient has chronic kidney disease 10/10/2025 Patient has chronic kidney disease 10/10/2025 Patient has chronic kidney disease 10/10/2025 Weekly blood pressure task 10/25/2025 Weekly blood pressure task 10/25/2025 Weekly blood pressure task 10/25/2025 Patient has diabetic eye disease 10/25/2025 Patient has diabetic eye disease 10/25/2025 Patient has diabetic eye disease 10/25/2025 Patient has chronic kidney disease 10/25/2025 Patient has chronic kidney disease 10/25/2025 Patient has chronic kidney disease 10/25/2025 Insurance C3 Care Teams Bevel Mill Operator Relationship Specialty Start Date End Date Boo Ashby MD [address] [place] [address] [phone] PCP - General Family Medicine 10/26/19 Hilda Cardoso Dental Insurance CoordinatorSubstation Supervisor 04/18/25 Hilda Cardoso Farm Equipment Maintenance SupervisorSubstation Supervisor 05/22/25 [facility] 08/29/25
--- OUTSIDE RECORDS SUMMARY | 2025-11-05 13:39 | XMS_ITS | Encounter Summary ---
Author Organization [employer] [facility] Address [address] [place] [address] 7t [place] [address] Care Team Providers Care Electron Gun Inspector Name Role Phone Yolie Desir MD Primary Care Provider + Encounter Details Date Type Department Care Team (Late st Contact Info) Description 01/25/2023 Abstract [facility] [address] [place] [address] [phone] Yolie Desir MD [address] [place] [address] [phone] Social History Tobacco Use Types Packs/Day Years [...] Description 12/13/2025 11:45 AM EST Office Visit [facility] [address] [place] [address] [phone] Yolie Desir MD [address] [place] [address] [phone] documented as of this encounter Visit Diagnoses Not on filedocumented in this encounter Care Teams Electron Gun Inspector Relationship Specialty Start Date End Date Yolie Desir MD [address] [place] [address] [phone] PCP - General Family Medicine 10/26/19 Hilda Cardoso Oyster CulturistGas Scrubber Operator 04/18/25 Hilda Cardoso First Grade TeacherGas Scrubber Operator 05/22/25 [facility] 08/29/25 documented as of this encounter
--- OUTSIDE RECORDS SUMMARY | 2025-11-05 13:39 | XMS_ITS | Clinical Summary ---
Author Organization [facility] Address [address] [facility] [address] [place] [phone] Phone Care Team Providers Care Director Intelligence Analysis Programs Name Role Phone Yolie Desir MD Primary [...] topic Medical Devices Not on file [place] [address] [place] [address] [place] [address] [place] [address] [place] [id number] [facility] [employer] [employer] [employer]3 [employer] [facility] [employer] [address] [place] [address] [place] [address] [place] [address] [place] [address] C3 [employer] [facility] C3 ACO Care Teams Director Intelligence Analysis Programs Relationship Specialty Start Date End Date Yolie Desir MD [address] [facility] [address] [place] [phone] PCP - General Internal Medicine 03/31/21 Additional Source Comments The information contained in this document represents components of the legal health record. It is not the complete legal health record.[facility]
--- OUTSIDE RECORDS SUMMARY | 2025-11-05 13:39 | XMS_ITS | Encounter Summary ---
Author Organization [employer] Address [address] [facility] 7t [place] [address] Care Team Providers Care Solar Project Engineer Name Role Phone Yolie Desir MD Primary Care Provider + Reason for Visit * Reason Comments Med Refill Encounter Details Date Type Department Care Team ([facility] st Contact Info) Description 12/26/2023 Refill [facility] [address] [place], [place] [phone] [facility] [address] [place] [phone] Acute on chronic congestive heart failure, unspecified [...] Description 12/13/2025 11:45 AM EST Office Visit [facility] [address] [place] [phone] Yolie Desir MD [address] [place] [address] documented as of this encounter Visit Diagnoses Diagnosis Acute on chronic congestive heart failure, unspecified heart failure type (HCC) documented in this encounter Additional Health Concerns Assessment Noted Time PHQ-9 Depression Total Score: 8 02/11/20 23 9:24 AM EDT documented as of this encounter Care Teams Solar Project Engineer Relationship Specialty Start Date End Date Yolie Desir MD [address] [place] [phone] PCP - General Family Medicine 10/26/19 Hilda Cardoso Copper Plate PrinterProject Management Engineer 04/18/25 Hilda Cardoso Distribution Field EngineerProject Management Engineer 05/22/25 [facility] 08/29/25 documented as of this encounter
--- OUTSIDE RECORDS SUMMARY | 2025-11-05 13:39 | XMS_ITS | Encounter Summary ---
Author Organization [employer] Address [address] [facility] 7t [place] [address] Care Team Providers Care Tearer Name Role Phone Yolie Desir MD Primary Care Provider + Reason for Visit * Reason Comments Med Refill Encounter Details Date Type Department Care Team (Late st Contact Info) Description 06/15/2024 Refill [facility] 230 [place], [place] [phone] Yolie Desir MD 230 [place], [place] [phone] Diabetic nephropathy associated with type 2 diabetes mellitus ([facility]) Social History Tobacco [...] Description 12/13/2025 11:45 AM EST Office Visit [facility] [address] [place] [phone] Yolie Desir MD [address] [place] [address] [phone] documented as of this encounter Visit Diagnoses Diagnosis Diabetic nephropathy associated with type 2 diabetes mellitus (HCC) documented in this encounter Additional Health Concerns Assessment Noted Time PHQ-9 Depression Total Score: 8 02/11/20 23 9:24 AM EDT documented as of this encounter Care Teams Tearer Relationship Specialty Start Date End Date Yolie Desir MD [address] [place] [phone] PCP - General Family Medicine 10/26/19 Hilda Cardoso Haz TechScale Attendant 04/18/25 Hilda Cardoso Decorator ConsultantScale Attendant 05/22/25 [facility] 08/29/25 documented as of this encounter
--- OUTSIDE RECORDS SUMMARY | 2025-11-05 13:40 | XMS_ITS | Encounter Summary ---
Author Organization [employer] Address [address] [facility] 7t [place] [address] Care Team Providers Care Pastrycook'S Assistant Name Role Phone Yolie Desir MD Primary Care Provider + Reason for Visit * Reason Comments Med Refill Encounter Details Date Type Department Care Team ([facility] st Contact Info) Description 09/09/2025 Refill [facility] 230 [place], [place] [phone] Yolie Desir MD 230 [place], [place] [phone] Diabetic nephropathy associated with type 2 diabetes [...] Description 12/13/2025 11:45 AM EST Office Visit [facility] [address] [place] [phone] Yolie Desir MD [address] [place] [phone] documented as of this encounter Visit Diagnoses Diagnosis Diabetic nephropathy associated with type 2 diabetes mellitus (HCC) documented in this encounter Additional Health Concerns Assessment Noted Time PHQ-9 Depression Total Score: 6 05/30/20 25 10:56 AM EDT documented as of this encounter Care Teams Pastrycook'S Assistant Relationship Specialty Start Date End Date Yolie Desir MD [address] [place] [phone] PCP - General Family Medicine 10/26/19 Hilda Cardoso Manager CampAuger Operator 04/18/25 Hilda Cardoso Freezer OperatorAuger Operator 05/22/25 [facility] 08/29/25 documented as of this encounter
--- OUTSIDE RECORDS SUMMARY | 2025-11-05 13:40 | XMS_ITS | Encounter Summary ---
Author Organization [employer] Address [address] [facility] [address] 7t [place] [address] Care Team Providers Care Dog And Cat Food Cook Name Role Phone Yolie Desir MD Primary Care Provider + Reason for Visit * Reason Comments Med Refill Encounter Details Date Type Department Care Team ([facility] st Contact Info) Description 11/14/2023 Refill [facility] [address] [place] [address] [phone] Preet Blackwood MD 230 [place], [place] [phone] Social History Tobacco Use Types Packs/Day Years [...] Description 12/13/2025 11:45 AM EST Office Visit [facility] 230 [place] [address] Yolie Desir MD 230 [place] [address] documented as of this encounter Visit Diagnoses Not on filedocumented in this encounter Additional Health Concerns Assessment Noted Time PHQ-9 Depression Total Score: 8 02/11/20 23 9:24 AM EDT documented as of this encounter Care Teams Dog And Cat Food Cook Relationship Specialty Start Date End Date Yolie Desir MD 230 [place] [phone] PCP - General Family Medicine 10/26/19 Hilda Cardoso Older Adult Social Work SpecialistLinen Supervisor 04/18/25 Hilda Cardoso Ore TesterLinen Supervisor 05/22/25 [facility] 08/29/25 documented as of this encounter
--- OUTSIDE RECORDS SUMMARY | 2025-11-05 13:40 | XMS_ITS | Encounter Summary ---
Author Organization [employer] Address [address] [facility] 7t [place] [address] Care Team Providers Care Seam Steamer Name Role Phone Yolie Desir MD Primary Care Provider + Reason for Visit * Reason Comments Med Refill Encounter Details Date Type Department Care Team ([facility] st Contact Info) Description 12/22/2023 Refill [facility] 230 [place], [place] [phone] [facility] [address] [place] [address] Acute on chronic congestive heart failure, unspecified [...] Description 12/13/2025 11:45 AM EST Office Visit [facility] [address] [place] [phone] Yolie Desir MD [address] [place] [address] documented as of this encounter Visit Diagnoses Diagnosis Acute on chronic congestive heart failure, unspecified heart failure type (HCC) documented in this encounter Additional Health Concerns Assessment Noted Time PHQ-9 Depression Total Score: 8 02/11/20 23 9:24 AM EDT documented as of this encounter Care Teams Seam Steamer Relationship Specialty Start Date End Date Yolie Desir MD [address] [place] [phone] PCP - General Family Medicine 10/26/19 Hilda Cardoso Pulling Unit OperatorManager Program 04/18/25 Hilda Cardoso Multimedia AuthorManager Program 05/22/25 [facility] 08/29/25 documented as of this encounter
--- OUTSIDE RECORDS SUMMARY | 2025-11-05 13:40 | XMS_ITS | Encounter Summary ---
Author Organization [employer] Address [address] [facility] 7t [place] [address] Care Team Providers Care Automation Test Developer Name Role Phone Yolie Desir MD Primary Care Provider + Reason for Visit * Reason Comments Med Refill Encounter Details Date Type Department Care Team (Late st Contact Info) Description 11/29/2023 Refill [facility] 230 [place], [place] [phone] Axel Graf MD 230 [place] [address] Diabetic nephropathy associated with type 2 diabetes mellitus ([facility]) Social History Tobacco Use Types Packs/Day [...] Description 12/13/2025 11:45 AM EST Office Visit [facility] [address] [place] [phone] Yolie Desir MD [address] [place] [phone] documented as of this encounter Visit Diagnoses Diagnosis Diabetic nephropathy associated with type 2 diabetes mellitus (HCC) documented in this encounter Additional Health Concerns Assessment Noted Time PHQ-9 Depression Total Score: 8 02/11/20 23 9:24 AM EDT documented as of this encounter Care Teams Automation Test Developer Relationship Specialty Start Date End Date Yolie Desir MD [address] [place] [phone] PCP - General Family Medicine 10/26/19 Hilda Cardoso Box Spring Frame BuilderSupervisor Contact And Service Clerks 04/18/25 Hilda Cardoso Laser Printing OperatorSupervisor Contact And Service Clerks 05/22/25 [facility] 08/29/25 documented as of this encounter
== END 2025-11-05 11:32 | disposition home or self-care (01) ==
LOC: HO.HKAS 10:42
PROVIDERS: PCP Internal Medicine; Visit Provider Internal Medicine Nephrology
DX: I10 Essential (primary) hypertension (principal); E11.29 Type 2 diabetes mellitus with other diabetic kidney complication; E87.6 Hypokalemia
CPT/HCPCS: 99214

== ENCOUNTER → 2025-11-05 10:42 | Outpatient (BNVA) | payer MEDICAID, SELFPAY | PROVIDERS: PCP Internal Medicine; Visit Provider Internal Medicine Nephrology | DX: I10 Essential (primary) hypertension (principal); E11.29 Type 2 diabetes mellitus with other diabetic kidney complication; E87.6 Hypokalemia; R80.9 Proteinuria, unspecified; Z79.84 Long term (current) use of oral hypoglycemic drugs | CPT/HCPCS: 99212 ==

== ENCOUNTER 2025-11-13 09:56 | Outpatient (REF) | payer MEDICAID, SELFPAY | END 2025-11-13 09:57 | disposition home or self-care (01) | LOC: HO.LNP 09:56 | PROVIDERS: PCP Internal Medicine; Visit Provider Obstetrics & Gynecology | DX: Z01.419 Encounter for gynecological examination (general) (routine) without abnormal findings (principal); Z98.51 Tubal ligation status | CPT/HCPCS: 87626; 88175 ==

== ENCOUNTER 2025-11-13 09:56 | Outpatient (AMB) | payer MEDICAID, SELFPAY ==
--- NOTE | 2025-11-13 10:01 | MHC.OFFVIS ---
Vital Signs 11/13/25 10:06 Height 5 ft 7 in Weight 190 lb BMI 29.8 BP 110/62 Intake Visit Reasons: annual Filtration Plant Operator Required: Yes Filtration Plant Operator Language: Supervisor [employer] Services: Filtration Plant Operator Present (in person) Filtration Plant Operator Name: Cally Vargas SALUD Information Interpreted: non-clinical & clinical Shelf Stocker: Shelf Stocker Present (Cally BRANNON) Accompanied by: Self / Same As Patient Allergies sulfamethoxazole (From BACTRIM) Allergy (Severe, Verified 11/13/25 10:08) FACIAL SWELLING trimethoprim (From BACTRIM) Allergy (Severe, Verified 11/13/25 10:08) FACIAL SWELLING levofloxacin (From LEVAQUIN) Allergy (Intermediate, Verified 11/13/25 10:08) REDNESS, SWELLING ITCHINESS AT IV SITE Post menopausal: Yes HPI Comments Details: Presenting for annual exam. No complaints. Last Pap/HPV in 2022 was negative/HPV positive, colpo biopsy ECC was ALPESH 1 Last Mammogram was in 04/13 BI-RADS 1 No previous screening colonoscopy PFSH Medical History (Updated 11/13/25 @ 10:32 by Rufus Maxwell MD) Dysplasia of cervix, low grade (ALPESH 1) Hyperlipidemia Asthma DEVYN (obstructive sleep apnea) Osteomyelitis Wound of left foot DM2 (diabetes mellitus, type 2) Hyperlipidemia LDL goal <100 CAD (coronary artery disease) Retinopathy Anxiety Depression Type 2 diabetes mellitus with hyperglycemia, with long-term current use of insulin Proteinuria Type 2 diabetes mellitus with other diabetic kidney complication Essential hypertension Obesity due to excess calories Type 2 diabetes mellitus with diabetic polyneuropathy Surgical History S/P foot surgery, left Hx of breast biopsy Hx of section Hx of tubal ligation Hx of coronary artery bypass surgery Family History Maternal Grandmother Diabetes Cervical cancer Brother Diabetes Sister Breast cancer Social History (Updated 11/13/25 @ 10:12 by Cally Vargas CMA) Household Members Other:: mother Housing: Apartment Alcohol intake: never Patient Tobacco Use Status: Former Tobacco user Tobacco use type: Cigarette Years Smoked: 10 Second Hand Smoke Exposure: No Use of substances other than those prescribed or required for medical reasons: No service: No Current occupational status: disabled Sexually active: No Sexual orientation: Straight/Heterosexual Gender identity: Female Female Reproductive History Menstrual Age of Menarche: 11 Date of last menstrual period: 09/27/25 control method: permanent sterilization Total pregnancies: 2 Full term: 2 Number of Living Children: 2 Date of Mammogram: 04/03/24 Review of Systems Const All systems reviewed & are unremarkable except as noted in HPI and below Card Reports as per HPI Resp Reports as per HPI GI Reports as per HPI and Reports no additional complaints Reports as per HPI Physical Exam Vital Signs: Last Vital Signs BP 110/62 11/13/25 10:06 BMI result Body Mass Index 29.8 Const General: cooperative, healthy appearing and comfortable Chest Chest palpation & inspection: normal inspection of the chest and normal palpation of entire chest wall Breast/axilla inspection: normal inspection of the breasts and normal inspection of the axillae Breast/axilla palpation: normal palpation of the breasts, normal palpation of the axillae and no axillary lymphadenopathy Resp Effort & Inspection: normal respiratory effort Auscultation: clear to auscultation bilaterally Percussion: percussion normal Cardio Palpation: normal PMI Rate: regular rate Rhythm: regular rhythm Heart sounds: no murmurs and no rubs Peripheral pulses: Peripheral pulses 2+ throughout GI Inspection: Yes normal to inspection Palpation (GI): Soft to palpation, nontender, no guarding, not rigid and No hepatosplenomegaly present Percussion: Yes normal to percussion Auscultation: normal bowel sounds Rectal Exam - Female: deferred General: Yes bladder normal to palpation External Female Exam: No lesion Speculum Exam - Vagina: normal appearance of the vagina, normal palpation, normal vaginal discharge and not erythematous Speculum Exam - Cervix: normal appearance of the cervix and normal palpation Bimanual exam- vagina & uterus: normal bimanual exam, normal palpation, uterine size normal, bladder normal to palpation, consistency normal and normal palpation Bimanual Exam- Adnexa, other: normal adnexae, no masses and no tenderness Assessment & Plan Assessment & Plan (1) Well woman exam: Comment: ALPESH 1 in 2022 Code(s): Z01.419 - Encounter for gynecological examination (general) (routine) without abnormal findings Category: Medical Plan: Co testing done. Counseled the patient about the recommended dietary allowance of 1200 mg of Calcium & 600 IU of vitamin D. Mammogram ordered. The patient was referred to GI for screening colonoscopy . The patient was instructed to perform monthly self-breast exams and schedule annual exam in a year. All questions answered and the patient verbalized understanding. Orders: Orders MM tomosynthesis screening BI Today Z12.31 - Encounter for screening mammogram for malignant neoplasm of breast Referrals Gastroenterology Referral Z12.11 - Encounter for screening for malignant neoplasm of colon Coding Level of Care Code Est Pt Prev Care 40-64y(24520) Diagnoses Well woman exam Z01.419
[2025-11-13 10:06] VITALS: BP 110/62; BMI 29.8
--- OUTSIDE RECORDS SUMMARY | 2025-11-13 10:06 | XMS_ITS | Clinical Summary ---
Author Organization 175 [facility] Address [address] [place] [address] Phone Care Team Providers Care Animal Geneticist Name Role Phone Yolie Desir MD Primary Care Provider + [phone] Allergies Active Allergy Reactions Criticality Noted Date [...] PM EST Office Visit Orthopedic Surgery - [place] 250 175 [facility] [address] [place] [phone] Joaquín Guan DPM Metatarsalgia of left foot (Primary Dx); Type II diabetes mellitus with peripheral circulatory disorder ([facility] V24, [facility] V28); Midfoot ulceration, right, with fat layer exposed ([facility] V24, [facility] V28) 10/23/2025 3:00 PM EST Office Visit Infectious Disease - [place] 175 [facility] [address] [place] [phone] Sera Vásquez MD Diabetic foot infection (CMS/HCC V24, CMS/HCC V28) (Primary Dx) 10/21/2025 2:30 PM EST Office Visit Orthopedic [facility] [address] [phone] Joaquín Guan DPM Chronic osteomyelitis of hindfoot, left (CMS/HCC V24, CMS/HCC V28) (Primary Dx); Metatarsalgia of left foot; Type II diabetes mellitus with peripheral circulatory disorder (CMS/HCC V24, CMS/HCC V28); Midfoot ulceration, right, with fat layer exposed (CMS/HCC V24, CMS/HCC V28) 10/07/2025 1:00 PM EST Office Visit Orthopedic [facility] [address] [phone] Joaquín Guan DPTom Chronic osteomyelitis of hindfoot, left (CMS/HCC V24, CMS/HCC V28) (Primary Dx); Metatarsalgia of left foot; Type II diabetes mellitus with peripheral circulatory disorder (CMS/HCC V24, CMS/HCC V28); Midfoot ulceration, right, with fat layer exposed (CMS/HCC V24, CMS/HCC V28) 09/23/2025 1:00 PM EST Office Visit Orthopedic [facility] [address] [phone] Joaquín Guan DPM Ulcer of heel and midfoot, left, with fat layer exposed (CMS/HCC V24, CMS/HCC V28) (Primary Dx); Pain in toe of left foot; Chronic osteomyelitis of hindfoot, left (CMS/HCC V24, CMS/HCC V28); Ulcer of toe of left foot, with fat layer exposed (CMS/HCC V24, CMS/HCC V28); Follow-up exam 09/20/2025 Telephone Orthopedic Surgery [facility] [address] [phone] Joaquín Guan DPM 09/10/2025 2:00 PM EDT Office Visit Orthopedic [facility] [address] [phone] Joaquín Guan DPM Pain in toe of left foot (Primary Dx); Chronic osteomyelitis of hindfoot, left ([facility] V24, [facility] V28); Ulcer of toe of left foot, with fat layer exposed ([facility] V24, [facility] V28) 09/03/2025 9:30 AM EDT Office Visit Orthopedic Surgery [facility] [address] [phone] Dusty Gonzalez DPM Ulcer of toe of left foot, with fat layer exposed ([facility] V24, [facility] V28) (Primary Dx) 09/02/2025 Telephone Orthopedic Surgery [facility] [address] [phone] Dusty Gonzalez DPM 08/28/2025 Telephone Infectious Disease [facility] 175 [facility] 200 [place] [phone] Jenny AvitiaJOSEPHINE, [place] 08/23/2025 2:41 PM EDT Anesthesia Event [facility] OR [address] [place] [phone] Shane Vera DO 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, 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 [employer]URE 08/23/2025 2:39 PM EDT - 08/23/2025 3:54 PM EDT Surgery [facility] OR [address] [place] [phone] Joaquín Guan DPM EXCISION METATARSAL HEAD [36369 (CPT ) +2 more] 08/20/2025 10:56 PM EDT - 08/28/2025 3:50 PM EDT Hospital Encounter [facility] Urology Unit [address] [place] [phone] Codey Daniels MD Jones, Christopher, MD Kokosadze, Estate, MD Zipagan, James T, MD Diabetic foot infection ([facility] V24, [facility] V28) (Primary Dx); Anaphylaxis, initial encounter; Acute osteomyelitis of left foot ([facility] V24, [facility] V28); Ulcer of toe of left foot, with fat layer exposed ([facility] V24, [facility] V28); Chronic osteomyelitis of hindfoot, left ([facility] V24, [facility] V28) Discharge Disposition: Home-Health Care [facility] 08/20/2025 2:30 PM EDT Office Visit Orthopedic Surgery [facility] [address] [phone] Dusty Gonzalez DPM Acute osteomyelitis of left ankle or foot ([facility] V24, [facility] V28) (Primary Dx); Ulcer of toe of left foot, with necrosis of bone ([facility] V24, [facility] V28) 08/16/2025 10:15 AM EDT Office Visit Orthopedic Surgery [place] [address] [phone] Dusty Gonzalez DPM Chronic osteomyelitis of hindfoot, left ([facility] V24, [facility] V28) (Primary Dx); Ulcer of toe of left foot, with necrosis of bone ([facility] V24, [facility] V28) 08/15/2025 2:15 PM EDT Office Visit [facility] [address] [place] [phone] Shane Cash PA Type 2 diabetes mellitus with foot ulcer (CODE) ([facility] V24, [facility] V28) (Primary Dx); 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 without evidence of necrosis ([facility] V24, [facility] V28) from Last 3 Months Surgical History Surgery Date Site/Laterality Comments WOUND DEBRIDEMENT Left foot CORONARY ARTERY BYPASS GRAFT 2016 Medical History Medical History Date Comments Diabetes mellitus ([facility] V24, [facility] V28) Hypertension Chronic kidney disease Anxiety Depression [...] PM EST Office Visit Orthopedic Surgery - [place] 250 175 [facility] [address] [place] [phone] Joaquín Guan, CECY 175 [facility] 250 [place] [address] 11/27/2025 1:30 PM EST Ancillary Procedure [facility] 101 300 [facility] [address] [place] [phone] 12/18/2025 3:00 PM EST Consult Vascular Surgery - [place] 300 [facility] [address] [place] [phone] Estella Mendez PA 300 [facility] 210 [place] [address] Health Maintenance Due Date Last Done Comments [...] Care Plan Impaired Tissue Not on track( 2:42 PM EDT) Kristie Clancy RN Wound [...] of hindfoot, left (CMS/HCC V24, CMS/HCC V28) DE TRF/REARNG ADJACENT TISS DEFECT FRHD/CHEEKS/CHIN/MTH/ NECK/AX <=10SQCM 08/23/2025 2:41 PM EDT Ulcer of toe of left foot, with fat layer exposed (CMS/HCC V24, CMS/HCC V28) Chronic osteomyelitis of hindfoot, left (CMS/HCC V24, CMS/HCC V28) Case Notes MINI C-ARM,CONMED DE PARTIAL EXCISION BONE PHALANX OF TOE 08/23/2025 2:41 PM EDT Ulcer of toe of left foot, with fat layer exposed (CMS/HCC V24, CMS/HCC V28) Chronic osteomyelitis of hindfoot, left (CMS/HCC V24, CMS/HCC V28) Case Notes MINI C-ARM,CONMED DE OSTECTOMY COMPLETE EXCISION FIFTH METATARSAL HEAD 08/23/2025 [...] CULTURE BLOOD STAT 08/21/2025 12:20 AM EDT DE CRITICAL CARE 30-74 MINUTES Routine 08/20/2025 8:02 PM EDT DEBRIDEMENT Routine 08/15/2025 2:15 PM EDT Type 2 diabetes mellitus with foot ulcer (CODE) (CMS/HCC V24, CMS/HCC V28) 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 Sodium 139 133 - 145 mmol/L LAB CHEMISTRY METHOD 08/28/2025 7:46 AM [facility] Potassium 3.5 3.5 - 5.5 mmol/L LAB CHEMISTRY METHOD 08/28/2025 7:46 AM [facility] Chloride 103 96 - 110 mmol/L LAB CHEMISTRY METHOD 08/28/2025 7:46 AM [facility] CO2 30 21 - 32 mmol/L LAB CHEMISTRY METHOD 08/28/2025 7:46 AM [facility] Anion Gap 6 3 - 11 LAB CHEMISTRY METHOD 08/28/2025 7:46 AM [facility] Glucose 99 70 - 100 mg/dL LAB CHEMISTRY METHOD 08/28/2025 7:46 AM [facility] BUN 17 5 - 25 mg/dL LAB CHEMISTRY METHOD 08/28/2025 7:46 AM [facility] Creatinine 1.02 0.50 - 1.10 mg/dL LAB CHEMISTRY METHOD 08/28/2025 7:46 AM [facility] eGFR 66 >=60 mL/min/1. 73m2 LAB CHEMISTRY METHOD 08/28/2025 7:46 AM [facility] Comment:Calculation based on the Chronic Kidney Disease Epidemiology Collaboration (CKD-EPI) equation refit without adjustment for race. BUN/Creatinine Ratio 16.7 LAB CHEMISTRY METHOD 08/28/2025 7:46 AM [facility] Calcium 9.5 8.5 - 10.5 mg/dL LAB CHEMISTRY METHOD 08/28/2025 7:46 AM [facility] Blood Venous blood specimen / Unknown Venipuncture / Unknown 08/28/2025 5:53 AM EDT 08/28/2025 6:55 AM EDT us Pepe Hunt MD LAB BLOOD ORDERABLES Final Re sult [facility] [address] [place] [address], [place] [phone] * Lavender tube (08/28/2025 5:51 AM EDT) Pathologist [facility] Extra Tube Hold for add-ons. 08/28/2025 8:01 AM EDT [facility] Comment:Auto resulted. Blood Venous blood specimen / Unknown Venipuncture / Unknown 08/28/2025 5:51 AM EDT 08/28/2025 6:56 AM EDT us Pepe Hunt MD LAB BLOOD ORDERABLES Final Re sult Performing Organization Address City/[facility] [address]/ZIP Co de Phone Number [facility] [address] [place] [address], [place] [phone] * (ABNORMAL) CBC auto differential (08/26/2025 6:13 AM EDT) Only the most recent of7 resultswithin the time period is included. WBC 6.4 4.8 - 10.8 K/mcL LAB HEMETOLOGY METHOD 08/26/2025 6:31 AM EDT [facility] RBC 3.60(L) 3.80 - 4.80 M/mcL LAB HEMETOLOGY METHOD 08/26/2025 6:31 AM EDT [facility] Hemoglobin 10.1(L) 11.5 - 16.0 g/dL LAB HEMETOLOGY METHOD 08/26/2025 6:31 AM EDT [facility] Hematocrit 31.9(L) 35.0 - 47.0 % LAB HEMETOLOGY METHOD 08/26/2025 6:31 AM [facility] MCV 89.1 79.0 - 98.0 FL LAB HEMETOLOGY METHOD 08/26/2025 6:31 AM [facility] MCH 28.2 27.0 - 32.0 pcg LAB HEMETOLOGY METHOD 08/26/2025 6:31 AM [facility] MCHC 31.7(L) 32.0 - 37.0 g/dL LAB HEMETOLOGY METHOD 08/26/2025 6:31 AM [facility] RDW 13.4 11.0 - 15.0 % LAB HEMETOLOGY METHOD 08/26/2025 6:31 AM [facility] Platelets 217 130 - 400 K/mcL LAB HEMETOLOGY METHOD 08/26/2025 6:31 AM [facility] MPV 10.5 7.0 - 11.0 FL LAB HEMETOLOGY METHOD 08/26/2025 6:31 AM [facility] NRBC 0.0 <1.0 % LAB HEMETOLOGY METHOD 08/26/2025 6:31 AM [facility] NRBC Absolute 0.00 <0.10 K/mcL LAB HEMETOLOGY METHOD 08/26/2025 6:31 AM [facility] Neutrophils Relative 57.6 % LAB HEMETOLOGY METHOD 08/26/2025 6:31 AM [facility] Lymphocytes Relative 26.7 % LAB HEMETOLOGY METHOD 08/26/2025 6:31 AM [facility] Monocytes Relative 9.0 % LAB HEMETOLOGY METHOD 08/26/2025 6:31 AM [facility] Eosinophils Relative 6.1 % LAB HEMETOLOGY METHOD 08/26/2025 6:31 AM [facility] Basophils Relative 0.3 % LAB HEMETOLOGY METHOD 08/26/2025 6:31 AM EDT [facility] Immature Granulocytes Relative 0.3 % LAB HEMETOLOGY METHOD 08/26/2025 6:31 AM EDT [facility] Neutrophils Absolute 3.70 1.50 - 7.00 K/mcL LAB HEMETOLOGY METHOD 08/26/2025 6:31 AM EDT [facility] Lymphocytes Absolute 1.72 1.00 - 5.00 K/mcL LAB HEMETOLOGY METHOD 08/26/2025 6:31 AM EDT [facility] Monocytes Absolute 0.58 0.20 - 1.00 K/mcL LAB HEMETOLOGY METHOD 08/26/2025 6:31 AM EDT [facility] Eosinophils Absolute 0.39 0.00 - 0.50 K/mcL LAB HEMETOLOGY METHOD 08/26/2025 6:31 AM EDT [facility] Basophils Absolute 0.02 0.00 - 0.20 K/mcL LAB HEMETOLOGY METHOD 08/26/2025 6:31 AM EDT [facility] Immature Granulocytes Absolute 0.02 0.00 - 0.03 K/mcL LAB HEMETOLOGY METHOD 08/26/2025 6:31 AM EDT [facility] Blood Venous blood specimen / Unknown Venipuncture / Unknown 08/26/2025 6:13 AM EDT 08/26/2025 6:16 AM EDT us Estjens Wilson MD LAB BLOOD ORDERABLES Final R esult [facility] [address] [place] [address], * Magnesium (08/24/2025 5:42 AM EDT) Only the most recent of4 resultswithin the time period is included. Magnesium 1.9 1.9 - 2.6 mg/dL LAB CHEMISTRY METHOD 08/24/2025 10:41 AM EDT [facility] Blood Venous blood specimen / Unknown Venipuncture / Unknown 08/24/2025 5:42 AM EDT 08/24/2025 6:57 AM EDT us Lottie Roland HIGHWAY DESIGN ENGINEER LAB BLOOD ORDERABLES Final Resul t [facility] [address] [place] [address], [place] [phone] * Tissue exam (08/23/2025 3:06 PM EDT) Final Diagnosis A. Foot, Left, 5th proximal phalanx clean margin: -VIABLE APPEARING BONE B. Foot, Left, 5th metatarsal clean margin: -VIABLE APPEARING BONE 08/28/2025 12:14 PM EDT [facility] at 1214 EDT Gross [...] decalcificati on. TS 08/28/2025 12:14 PM EDT [facility] Disclaimer Unless otherwise specified, all tissue is 10% NB formalin fixed and paraffin embedded. 08/28/2025 12:14 PM EDT [facility] Bone Structure of left foot / Unknown 08/23/2025 3:06 PM EDT 08/26/2025 7:41 AM EDT Specimen from bone (specimen) Structure of left foot / Unknown 08/23/2025 3:07 PM EDT 08/26/2025 7:41 AM EDT Joaquín Guan [facility] PATHOLOGY ORDERABLES Fi nal Result Performing Organization Address [facility] de Phone Number [facility] [address] [place] [address], [place] [phone] * Culture anaerobic with gram stain (08/23/2025 3:05 PM EDT) Only the most recent of2 resultswithin the time period is included. Culture, Anaerobic No Growth of Anaerobes. 08/28/2025 7:58 AM EDT [facility] Gram Stain Result Refer to Aerobic culture for gram stain results. 08/28/2025 7:58 AM EDT [facility] Swab Structure of left foot / Unknown 08/23/2025 3:05 PM EDT 08/23/2025 3:26 PM EDT Joaquín Guan [facility] MICROBIOLOGY - GENERAL ORDERABLES Final Result Performing Organization Address [facility] Phone Number [facility] [address] [place] [address], [place] [phone] * (ABNORMAL) Culture wound deep (08/23/2025 3:05 PM EDT) Only the most recent of2 resultswithin the time period is included. Culture, Wound Streptococcus viridans group(A) 08/27/2025 11:03 AM EDT [facility] Comment: Susceptibility testing not [...] No organisms noted 08/27/2025 11:03 AM EDT [facility] Swab Structure of left foot / Unknown 08/23/2025 3:05 PM EDT 08/23/2025 3:26 PM EDT Joaquín Guan DPM LAB MICROBIOLOGY - GENERAL ORDERABLES Final Result Performing Organization Address [facility]/ZIP Co de Phone Number [facility] [address] [place] [address], * (ABNORMAL) B-type natriuretic peptide (08/23/2025 12:24 PM EDT) BNP 274(H) <=100 pcg/mL LAB CHEMISTRY METHOD 08/23/2025 1:22 PM EDT [facility] Blood Venous blood specimen / Unknown Venipuncture / Unknown 08/23/2025 12:24 PM EDT 08/23/2025 12:31 PM EDT us Lottie Watkins NP LAB BLOOD ORDERABLES Final Resul t Performing Organization Address [facility] [address]/ZIP Co de Phone Number [facility] [address] [place] [address], [place] [phone] * Culture blood (08/22/2025 2:06 PM EDT) Only the most recent of4 resultswithin the time period is included. Culture, Blood No growth at 5 days 08/27/2025 3:01 PM EDT [facility] Blood Venous blood specimen / Unknown Venipuncture / Unknown 08/22/2025 2:06 PM EDT 08/22/2025 2:15 PM EDT us Lottie Tkaczek HIGHWAY DESIGN ENGINEER LAB MICROBIOLOGY - GENERAL ORDER EMILIE Final Result [facility] [address] [place] [address], [place] [phone] * XR Chest 1 View (08/22/2025 1:57 [...] Signed Date: 08/22/2025 14:01 ET Workstation ID: [id number] Transcribed By: Self Edit Transcribed Date: 08/22/2025 [...] Signed Date: 08/22/2025 14:01 ET Workstation ID: [id number] Transcribed By: Self Edit Transcribed Date: 08/22/2025 14:00 ET us Lottie Watkins HIGHWAY DESIGN ENGINEER IMG XR PROCEDURES Final Result * Respiratory virus panel molecular study (08/22/2025 1:33 PM EDT) [facility] Adenovirus Detection by PCR Not Detected Not Detected LAB MICROBIOLOGY METHOD 08/22/2025 2:42 PM EDT [facility] Influenza A PCR Not Detected Not Detected LAB MICROBIOLOGY METHOD 08/22/2025 2:42 PM EDT [facility] Influenza B PCR Not Detected Not Detected LAB MICROBIOLOGY METHOD 08/22/2025 2:42 PM EDT [facility] Coronavirus 229E Not Detected Not Detected LAB MICROBIOLOGY METHOD 08/22/2025 2:42 PM EDT [facility] Coronavirus HKU1 Not Detected Not Detected LAB MICROBIOLOGY METHOD 08/22/2025 2:42 PM EDT [facility] Coronavirus OC43 Not Detected Not Detected LAB MICROBIOLOGY METHOD 08/22/2025 2:42 PM EDT [facility] Coronavirus NL63 Not Detected Not Detected LAB MICROBIOLOGY METHOD 08/22/2025 2:42 PM EDT [facility] Parainfluenza Virus 1 Not Detected Not Detected LAB MICROBIOLOGY METHOD 08/22/2025 2:42 PM EDT [facility] Parainfluenza Virus 2 Not Detected Not Detected LAB MICROBIOLOGY METHOD 08/22/2025 2:42 PM EDT [facility] Parainfluenza Virus 3 Not Detected Not Detected LAB MICROBIOLOGY METHOD 08/22/2025 2:42 PM EDT [facility] Parainfluenza Virus 4 Not Detected Not Detected LAB MICROBIOLOGY METHOD 08/22/2025 2:42 PM EDT [facility] RSV PCR Not Detected Not Detected LAB MICROBIOLOGY METHOD 08/22/2025 2:42 PM EDT [facility] Human Metapneumovirus A and B Not Detected Not Detected LAB MICROBIOLOGY METHOD 08/22/2025 2:42 PM EDT [facility] Rhinovirus/Entero virus Not Detected Not Detected LAB MICROBIOLOGY METHOD 08/22/2025 2:42 PM EDT [facility] Bordetella pertussis Not Detected Not Detected LAB MICROBIOLOGY METHOD 08/22/2025 2:42 PM EDT [facility] Bordetella parapertussis Not Detected Not Detected LAB MICROBIOLOGY METHOD 08/22/2025 2:42 PM EDT [facility] Mycoplasma pneumo by PCR Not Detected Not Detected LAB MICROBIOLOGY METHOD 08/22/2025 2:42 PM EDT [facility] Chlamydia pneumoniae Not Detected Not Detected LAB MICROBIOLOGY METHOD 08/22/2025 2:42 PM EDT [facility] SARS COV-2 Not Detected Not Detected LAB MICROBIOLOGY METHOD 08/22/2025 2:42 PM EDT [facility] Swab Both anterior nares / Unknown Non-blood Collection / Unknown 08/22/2025 1:33 PM EDT 08/22/2025 1:47 PM EDT [facility] - 08/22/2025 2:42 PM EDT Testing was performed using the Support Your App Respiratory Pathogen PCR Assay. All results must [...] that are below the limit of detection. us Lottie Watkins NP LAB MICROBIOLOGY - GENERAL ORDER EMILIE Final Result [facility] [address] [place] [address], * MRSA molecular study (08/21/2025 11:10 PM EDT) [facility] MRSA Screen PCR Not Detected Not Detected LAB MICROBIOLOGY METHOD 08/22/2025 12:38 AM EDT [facility] Swab Both anterior nares / Unknown Non-blood Collection / Unknown 08/21/2025 11:10 PM EDT 08/21/2025 11:23 PM EDT us Dusty Fraire MD LAB MICROBIOLOGY - GENERAL ORDERABLES Final Result [facility] [address] [place] [address], * MR Foot wo and w Contrast [...] surgery. 2. Lungs grossly clear. Telepaul MIKE ([id number]) -------- FINAL REPORT -------- Dictated By: Tawanna Knott Dictated Date: 08/21/2025 09:31 ET Assigned Physician: Tawanna Knott Reviewed and Electronically Signed By: Tawanna Knott Signed Date: 08/21/2025 09:32 ET Workstation ID: [id number] Transcribed By: Self Edit Transcribed Date: 08/21/2025 [...] artery surgery. 2. Lungs grossly clear. Telerad PA ([id number]) -------- FINAL REPORT -------- Dictated By: Tawanna Knott Dictated Date: 08/21/2025 09:31 ET Assigned Physician: Tawanna Knott Reviewed and Electronically Signed By: Tawanna Knott Signed Date: 08/21/2025 09:32 ET Workstation ID: [id number] Transcribed By: Self Edit Transcribed Date: 08/21/2025 09:31 ET us Codey Daniels MD IMG XR PROCEDURES Final Resu lt * Lactate, with Reflex (08/21/2025 12:20 AM EDT) LACTIC ACID 1.1 0.4 - 2.0 mmol/L LAB CHEMISTRY METHOD 08/21/2025 12:57 AM EDT [facility] Blood Venous blood specimen / Unknown Venipuncture / Unknown 08/21/2025 12:20 AM EDT 08/21/2025 12:26 AM EDT us Codey Daniels MD LAB BLOOD ORDERABLES Final R esult [facility] [address] [place] [address], [place] [phone] * APTT (08/21/2025 12:20 AM EDT) aPTT 30.3 24.1 - 39.3 sec LAB COAGULATION METHOD 08/21/2025 2:19 AM EDT [facility] Blood Venous blood specimen / Unknown Venipuncture / Unknown 08/21/2025 12:20 AM EDT 08/21/2025 12:26 AM EDT Codey Daniels MD LAB BLOOD ORDERABLES Final R esult Performing Organization Address City/[facility] [address]/ZIP Co de Phone Number [facility] [address] [place] [address], [place] [phone] * (ABNORMAL) Sedimentation rate (08/21/2025 12:20 AM EDT) [facility] Sed Rate 63(H) 0 - 30 mm/hr LAB HEMETOLOGY METHOD 08/21/2025 6:21 AM EDT [facility] Blood Venous blood specimen / Unknown Venipuncture / Unknown 08/21/2025 12:20 AM EDT 08/21/2025 12:26 AM EDT us Joanne MIKE LAB BLOOD ORDERABLES Final R esult [facility] [address] [place] [address], [place] [phone] * Protime-INR (08/21/2025 12:20 AM EDT) Protime 12.5 10.6 - 13.9 sec LAB COAGULATION METHOD 08/21/2025 2:20 AM EDT [facility] INR 1.0 LAB COAGULATION METHOD 08/21/2025 2:20 AM EDT [facility] Blood Venous blood specimen / Unknown Venipuncture / Unknown 08/21/2025 12:20 AM EDT 08/21/2025 12:26 AM EDT Codey Daniels MD LAB BLOOD ORDERABLES Final R esult Performing Organization Address [facility] [address]/ZIP Co de Phone Number [facility] [address] [place] [address], [place] [phone] * (ABNORMAL) C-reactive protein (08/21/2025 12:20 AM EDT) Pathologist [facility] C-Reactive Protein 5.18(H) <=0.50 mg/dL LAB CHEMISTRY METHOD 08/21/2025 6:26 AM EDT [facility] Blood Venous blood specimen / Unknown Venipuncture / Unknown 08/21/2025 12:20 AM EDT 08/21/2025 12:26 AM EDT Joanne MIKE LAB BLOOD ORDERABLES Final R esult Performing Organization Address [facility] [address]/ZIP Co de Phone Number [facility] [address] [place] [address], [place] [phone] * (ABNORMAL) Comprehensive Metabolic Panel (CMP) (08/21/2025 12:20 AM EDT) Pathologist [facility] Sodium 137 133 - 145 mmol/L LAB CHEMISTRY METHOD 08/21/2025 12:57 AM EDT [facility] Potassium 3.2(L) 3.5 - 5.5 mmol/L LAB CHEMISTRY METHOD 08/21/2025 12:57 AM EDT [facility] Chloride 101 96 - 110 mmol/L LAB CHEMISTRY METHOD 08/21/2025 12:57 AM EDT [facility] CO2 29 21 - 32 mmol/L LAB CHEMISTRY METHOD 08/21/2025 12:57 AM EDT [facility] Anion Gap 7 3 - 11 LAB CHEMISTRY METHOD 08/21/2025 12:57 AM [facility] Glucose 125(H) 70 - 100 mg/dL LAB CHEMISTRY METHOD 08/21/2025 12:57 AM [facility] BUN 16 5 - 25 mg/dL LAB CHEMISTRY METHOD 08/21/2025 12:57 AM [facility] Creatinine 0.98 0.50 - 1.10 mg/dL LAB CHEMISTRY METHOD 08/21/2025 12:57 AM [facility] eGFR 70 >=60 mL/min/1. 73m2 LAB CHEMISTRY METHOD 08/21/2025 12:57 AM [facility] Comment:Calculation based on the Chronic Kidney Disease Epidemiology Collaboration (CKD-EPI) equation refit without adjustment for race. BUN/Creatinine Ratio 16.3 LAB CHEMISTRY METHOD 08/21/2025 12:57 AM [facility] Calcium 9.5 8.5 - 10.5 mg/dL LAB CHEMISTRY METHOD 08/21/2025 12:57 AM [facility] AST (SGOT) 18 10 - 42 unit/L LAB CHEMISTRY METHOD 08/21/2025 12:57 AM [facility] ALT (SGPT) 23 10 - 60 unit/L LAB CHEMISTRY METHOD 08/21/2025 12:57 AM [facility] Alkaline Phosphatase 122(H) 42 - 121 unit/L LAB CHEMISTRY METHOD 08/21/2025 12:57 AM [facility] Total Protein 7.4 6.0 - 8.0 g/dL LAB CHEMISTRY METHOD 08/21/2025 12:57 AM [facility] Albumin 3.4 3.2 - 5.0 g/dL LAB CHEMISTRY METHOD 08/21/2025 12:57 AM [facility] Total Bilirubin 0.4 0.0 - 1.4 mg/dL LAB CHEMISTRY METHOD 08/21/2025 12:57 AM EDT [facility] Blood Venous blood specimen / Unknown Venipuncture / Unknown 08/21/2025 12:20 AM EDT 08/21/2025 12:26 AM EDT us Codey Daniels MD LAB BLOOD ORDERABLES Final R esult [facility] [address] [place] [address], [place] [phone] * DE CRITICAL CARE 30-74 MINUTES (08/20/2025 8:02 PM [...] for biopsy. PQRI CPT II 3342F Code 01336, 14249 PQRI 225 CPT II 7025F TISSUE DENSITY: There are scattered areas of fibroglandular density. (BI-RADS category B) IMPRESSION: Benign. BI-RADS CATEGORY: 2 - BENIGN RECOMMENDATION: Screening bilateral mammogram is recommended in 1 year. Mammo Location: [facility], [address] [place] [id number] -------- FINAL REPORT -------- Dictated By: Erik Coe Dictated Date: 07/09/2025 11:13 ET Assigned Physician: Erik Coe Reviewed and Electronically Signed By: Erik Coe Signed Date: 07/09/2025 11:17 ET Workstation ID: [id number] Transcribed By: Self Edit Transcribed Date: 07/09/2025 11:13 ET Narrative 07/09/2025 11:17 AM EDT CLINICAL: The patient is a 50 years Female presenting for routine screening mammography. COMPARISON: Outside studies most recently 04/03/2024 and most remotely 08/04/2015. TECHNIQUE: Full-field digital mammography of the breasts bilaterally consisting of tomosynthesis in MLO and CC projection is performed in the [employer] 2000-D unit. Computer aided detection utilizing the [employer] system was utilized. FINDINGS: The breasts are [...] MLO and CC projection is performed in the[employer] 2000-D unit. Computer aided detection utilizing the [...] for biopsy. PQRI CPT II 3342F Code 25975, 05164 PQRI 225 CPT II 7025F TISSUE DENSITY: There are scattered areas of fibroglandular density.(BI-RADS category B) IMPRESSION: Benign. BI-RADS CATEGORY: 2 - BENIGN RECOMMENDATION: Screening bilateral mammogram is recommended in 1 year. Mammo Location: [facility] [place] [facility], [address] [place] [id number] -------- FINAL REPORT -------- Dictated By: Erik Coe Dictated Date: 07/09/2025 11:13 ET Assigned Physician: Erik Coe Reviewed and Electronically Signed By: Erik Coe Signed Date: 07/09/2025 11:17 ET Workstation ID: [id number] Transcribed By: Self Edit Transcribed Date: 07/09/2025 11:13 ET Yolie Desir MD IMG BI PROCEDURES Final Resu lt * HIV Screening (08/24/2017) [facility] HIV Screening abstracted [facility] Provider HEALTH MAINTENANCE Final Result * Hepatitis C Screening (08/24/2017) [facility] Hepatitis C Screening abstracted [facility] Provider HEALTH MAINTENANCE Final Result * Pap Smear (07/17/2015) [facility] Pap smear no interpretation , abstracted [facility] Provider HEALTH MAINTENANCE Final Result from Last 3 Months or Most Recently Relevant to Health Maintenance Additional Health Concerns Active Problems Noted Date Diagnosed Date Impaired Tissue 06/05/2025 Education needed on impact of smoking on wound 0 06/05/2025 Education needed related to ulceration/compromised skin integrity. 06/05/2025 Insurance MEDICAID - [place] Advance Directives Documents on File Type Date Recorded Patient Crimper Operator Expl anation Advance Directives and Living Will [...] currently active code status orders. Care Teams Animal Geneticist Relationship Specialty Start Date End Date Yolie Desir MD [address] [place] [address] PCP - General 07/25/24
--- OUTSIDE RECORDS SUMMARY | 2025-11-13 10:06 | XMS_ITS ---
Care Plan Created on: November 13, 2025 Melissa Barnett : 1975 Sex: Female Author Organization [address] [facility] Address [address] [place] [address] Phone Care Team Providers Care Heat Treating Operator Name Role Phone Yolie Desir MD Primary Care Provider + [phone] Active Problems Problem Noted Date Diagnosed Date [...] 025 2:42 PM EDT) No Kristie Sauer textile converter volume breakdown reduced by X% by week 4 Care Plan Impaired Tissue No Kristie Sauer, textile converter volume breakdown reduced by X% by week [...]
--- OUTSIDE RECORDS SUMMARY | 2025-11-13 10:06 | XMS_ITS | Patient Health Record ---
Author Organization [facility] Address [address] [place] [address] Care Team Providers Care Certified Nuclear Medicine Technologist Name Role Phone Eagle (DO NOT USE), [facility] Primary Care Provi jaison Rick Estrada [...] W/U Status Risk Notes Problem Epigastric pain (37722617) Epigastric pain (R10.13) Active confirmed Problem Gastroesophageal reflux disease (165718454) Gastroesophageal reflux disease, esophagitis presence not specified (K21.9) Active confirmed Problem Diarrhea (05383207) Diarrhea, unspecified type (R19.7) Active confirmed Plan Of Treatment Future Test Test Name Order Date UPPER GI ENDOSCOPY 09/09/2017 COLONOSCOPY 09/09/2017 Insurance Providers Payer Name Payer Address Payer Phone Subscriber Number Group Number Insured Name Patient Relationship to Insured Coverage Start Date Coverage End Date MEDICA[facility] [address] [place] [address] [id number] MONI YEE Self - patient is the insured Medical (General) History Medical History History ICD Code diabetes mellitus coronary artery disease with history of LA 2016 kidney disease hypertension sleep apnea asthma systolic congestive heart failure depression neuropathy Surgical History Surgery Date(Month/Year) corneal transplant-right eye 2014 left hand surgery 2014 coronary artery bypass graft 01/2016, PCI with JOSE of mid LAD and ramus 03/06 after occlusion of GUNN and SVG graft 2016 tubal ligation cholecystectomy uterine polypectomy
--- OUTSIDE RECORDS SUMMARY | 2025-11-13 10:07 | XMS_ITS | Encounter Summary ---
Author Organization [employer] Address [address] [facility] 7t [place] [address] Care Team Providers Care Electronic Controls Repairer Supervisor Name Role Phone Yolie Desir MD Primary Care Provider + Reason for Visit * Reason Comments Med Refill Encounter Details Date Type Department Care Team ([facility] st Contact Info) Description 12/26/2023 Refill [facility] [address] [place], [place] [phone] [facility] [address] [place] [address] Acute on chronic congestive heart failure, unspecified [...] Description 12/13/2025 11:45 AM EST Office Visit [facility] [address] [place] [phone] Yolie Desir MD [address] [place] [address] documented as of this encounter Visit Diagnoses Diagnosis Acute on chronic congestive heart failure, unspecified heart failure type (HCC) documented in this encounter Additional Health Concerns Assessment Noted Time PHQ-9 Depression Total Score: 8 02/11/20 23 9:24 AM EDT documented as of this encounter Care Teams Electronic Controls Repairer Supervisor Relationship Specialty Start Date End Date Yolie Desir MD [address] [place] [address] PCP - General Family Medicine 10/26/19 Hilda Cardoso Cell Feed Department SupervisorPreload Supervisor 04/18/25 Hilda Cardoso Taker OutPreload Supervisor 05/22/25 [facility] 08/29/25 documented as of this encounter
--- OUTSIDE RECORDS SUMMARY | 2025-11-13 10:07 | XMS_ITS | Encounter Summary ---
Author Organization [employer] Address [address] [facility] 7t [place] [address] Care Team Providers Care .Net Architect Name Role Phone Yolie Desir MD Primary Care Provider + Reason for Visit * Reason Comments Med Refill Encounter Details Date Type Department Care Team ([facility] st Contact Info) Description 12/22/2023 Refill [facility] [address] [place], [place] [phone] [facility] [address] [place] [address] Acute on chronic congestive heart failure, unspecified [...] 11:45 AM EST Office Visit [facility] [address] [place] [phone] Yolie Desir MD [address] [place] [address] documented as of this encounter Visit Diagnoses Diagnosis Acute on chronic congestive heart failure, unspecified heart failure type (HCC) documented in this encounter Additional Health Concerns Assessment Noted Time PHQ-9 Depression Total Score: 8 02/11/20 23 9:24 AM EDT documented as of this encounter Care Teams .Net Architect Relationship Specialty Start Date End Date Yolie Desir MD [address] [place] [address] PCP - General Family Medicine 10/26/19 Hilda Cardoso Reeling Machine Setup OperatorInflatable Buildings Laminator 04/18/25 Hilda Cardoso Printed Circuit Board Panels PlaterInflatable Buildings Laminator 05/22/25 [facility] 08/29/25 documented as of this encounter
--- OUTSIDE RECORDS SUMMARY | 2025-11-13 10:07 | XMS_ITS | Encounter Summary ---
Author Organization [employer] Address [address] 7[address] [place] [address] Care Team Providers Care Welding Estimator Name Role Phone Yolie Desir MD Primary Care Provider + Encounter Details Date Type Department Care Team ([facility] st Contact Info) Description 11/11/2025 Refill [facility] [address] [place], [place] [phone] Yolie Desir MD [address] [place] [address] Diabetic nephropathy associated with type 2 diabetes [...] the past 12 months, has t he [employer], gas, oil or water company threatened to [...] Description 12/13/2025 11:45 AM EST Office Visit [facility] [address] [place] [address] Yolie Desir MD [address] [place] [address] documented as of this encounter Goals Goal Patient Goal Type Associated Problems Recent Progress Patient-Stated? Author Help patients manage their type 2 diabetes Care Plan Help patients manage their type 2 diabetes Yolie Lugo MD Weekly blood pressure task Care Plan Weekly blood pressure task Yolie Lugo MD Help patients manage their type 2 diabetes Care Plan Help patients manage their type 2 diabetes Yolie Lugo MD Patient has diabetic eye disease Care Plan Patient has diabetic eye disease Yolie Lugo MD Help patients manage their type 2 diabetes Care Plan Help patients manage their type 2 diabetes Yolie Lugo MD Patient has chronic kidney disease Care Plan Patient has chronic kidney disease No Yolie Desir MD Weekly blood pressure task Care Plan Weekly blood pressure task No Du Pearson Weekly blood pressure task [...] Plan Weekly blood pressure task No MottIlsa alejandre [place] Weekly blood pressure task Care Plan Weekly blood pressure task No MottIlsa alejandre [place] Weekly blood pressure task Care Plan Weekly blood pressure task No Mott IlsaPRETTY Patient has diabetic eye disease Care Plan Patient has diabetic eye disease No Mott IlsaPRETTY Patient has diabetic eye disease Care Plan Patient has diabetic eye disease No Mott IlsaPRETTY Patient has diabetic eye disease Care Plan Patient has diabetic eye disease No Mott IlsaPRETTY Patient has chronic kidney disease Care Plan Patient has chronic kidney disease No Mott IlsaPRETTY Patient has chronic kidney disease Care Plan Patient has chronic kidney disease No MottIlsa [place] Patient has chronic kidney disease Care Plan Patient has chronic kidney disease No MottIlsa [place] Weekly blood pressure task Care Plan Weekly blood pressure task No Mott IlsaPRETTY Weekly blood pressure task Care Plan Weekly blood pressure task No Mott, IlsaPRETTY Weekly blood pressure task Care Plan Weekly blood pressure task No Mott, IlsaPRETTY Patient has diabetic eye disease Care Plan Patient has diabetic eye disease No Mott IlsaPRETTY Patient has diabetic eye disease Care Plan Patient has diabetic eye disease No Mott IlsaPRETTY Patient has diabetic eye disease Care Plan Patient has diabetic eye disease No Mott IlsaPRETTY Patient has chronic kidney disease Care Plan Patient has chronic kidney disease No MottIlsa [place] Patient has chronic kidney disease Care Plan Patient has chronic kidney disease No Mott IlsaPRETTY Patient has chronic kidney disease Care Plan Patient has chronic kidney disease No Mott, Ilas MT Weekly blood pressure task Care Plan Weekly blood pressure task No Mott Ilsa MT Weekly blood pressure task Care Plan Weekly blood pressure task No Mott, Ilsa MT Weekly blood pressure task Care Plan Weekly blood pressure task No Mott, Ilsa, MT Patient has diabetic eye disease Care Plan Patient has diabetic eye disease No Mott Ilsa MT Patient has diabetic eye disease Care Plan Patient has diabetic eye disease No Mott Ilsa MT Patient has diabetic eye disease Care Plan Patient has diabetic eye disease No Mott Ilsa MT Patient has chronic kidney disease Care Plan Patient has chronic kidney disease No Mott Ilsa MT Patient has chronic kidney disease Care Plan Patient has chronic kidney disease No MottIlsa MT Patient has chronic kidney disease Care Plan Patient has chronic kidney disease No MottIlsa alejandre MT Weekly blood pressure task Care Plan Weekly blood pressure task No Vivek Lyn Weekly blood pressure task Care Plan Weekly blood pressure task No Vivek Lyn Weekly blood pressure task Care Plan Weekly blood pressure task No Vivek Lyn Patient has diabetic eye disease Care Plan Patient has diabetic eye disease No Vivek Lyn Patient has diabetic eye disease Care Plan Patient has diabetic eye disease No Vivek Lyn Patient has diabetic eye disease Care Plan Patient has diabetic eye disease No Vivek Lyn Patient has chronic kidney disease Care Plan Patient has chronic kidney disease No Vivek Lyn Patient has chronic kidney disease Care Plan Patient has chronic kidney disease No Vivek Lyn Patient has chronic kidney disease Care Plan Patient has chronic kidney disease No MarleeiahardeepuiVivek valentin Weekly blood pressure task Care Plan Weekly blood pressure task No Aaliyah Galvan, PharmD Weekly blood pressure task Care Plan Weekly blood pressure task No Aaliyah Galvan, PharmD Weekly blood pressure task Care Plan Weekly blood pressure task No Aaliyah Galvan, PharmD Patient has diabetic eye disease Care Plan Patient has diabetic eye disease No Aaliyah Galvan, PharmD Patient has diabetic eye disease Care Plan Patient has diabetic eye disease No Aaliyah Galvan, PharmD Patient has diabetic eye disease Care Plan Patient has diabetic eye disease No Aaliyah Galvan PharmD Patient has chronic kidney disease Care Plan Patient has chronic kidney disease No Aaliyah Galvan PharmD Patient has chronic kidney disease Care Plan Patient has chronic kidney disease No Aaliyah Galvan PharmFarzana Patient has chronic kidney disease Care Plan Patient has chronic kidney disease No Aaliyah Galvan PharmD Weekly blood pressure task Care Plan Weekly blood pressure task No Aaliyah Galvan PharmD Weekly blood pressure task Care Plan Weekly blood pressure task No Aaliyah Galvan PharmFarzana Weekly blood pressure task Care Plan Weekly blood pressure task No Aaliyah Galvan PharmFarzana Patient has diabetic eye disease Care Plan Patient has diabetic eye disease No Aaliyah Galvan PharmFarzana Patient has diabetic eye disease Care Plan Patient has diabetic eye disease No Aaliyah Galvan PharmFarzana Patient has diabetic eye disease Care Plan Patient has diabetic eye disease No Aaliyah Galvan PharmD Patient has chronic kidney disease Care Plan Patient has chronic kidney disease No Aaliyah Galvan PharmFarzana Patient has chronic kidney disease Care Plan Patient has chronic kidney disease No Aaliyah Galvan PharmFarzana Patient has chronic kidney disease Care Plan Patient has chronic kidney disease No Aaliyah Galvan PharmD documented as of this encounter Visit Diagnoses [...] 10/25/2025 Patient has chronic kidney disease 10/25/2025 Weekly blood pressure task 11/08/2025 Weekly blood pressure task 11/08/2025 Weekly blood pressure task 11/08/2025 Patient has diabetic eye disease 11/08/2025 Patient has diabetic eye disease 11/08/2025 Patient has diabetic eye disease 11/08/2025 Patient has chronic kidney disease 11/08/2025 Patient has chronic kidney disease 11/08/2025 Patient has chronic kidney disease 11/08/2025 Weekly blood pressure task 11/11/2025 Weekly blood pressure task 11/11/2025 Weekly blood pressure task 11/11/2025 Patient has diabetic eye disease 11/11/2025 Patient has diabetic eye disease 11/11/2025 Patient has diabetic eye disease 11/11/2025 Patient has chronic kidney disease 11/11/2025 Patient has chronic kidney disease 11/11/2025 Patient has chronic kidney disease 11/11/2025 Weekly blood pressure task 11/11/2025 Weekly blood pressure task 11/11/2025 Weekly blood pressure task 11/11/2025 Patient has diabetic eye disease 11/11/2025 Patient has diabetic eye disease 11/11/2025 Patient has diabetic eye disease 11/11/2025 Patient has chronic kidney disease 11/11/2025 Patient has chronic kidney disease 11/11/2025 Patient has chronic kidney disease 11/11/2025 Assessment Noted Time PHQ-9 Depression Total Score: 6 05/30/20 10:56 AM EDT documented as of this encounter Care Teams Welding Estimator Relationship Specialty Start Date End Date Yolie Desir MD [address] [place] [address] PCP - General Family Medicine 10/26/19 Hilda Cardoso Chair Car DriverDewer 04/18/25 Hilda Cardoso Level Vial Curvature GaugerDewer 7/2/25 [facility] 08/29/25 documented as of this encounter
--- OUTSIDE RECORDS SUMMARY | 2025-11-13 10:07 | XMS_ITS | Clinical Summary ---
Author Organization [facility] Address [address] [place] [address] Phone Care Team Providers Care Radiology Administrator Name Role Phone Yolie Desir MD Primary Care Provider [phone] Allergies Active Allergy Reactions Criticality Noted Date [...] Years Used Date Smoking Tobacco: Former Cigarettes 0 Q uit: 11/21/2013 Smokeless Tobacco: Never Tobacco [...] Hemoglobin A1C 04/07/2025 01/08/2025, 01/20 Influenza Vaccine (#1) 2025 3, 10/20/2022, 02/03/2021, Additional history exists Pneumococcal Vaccine: 50+ Years Completed 02/10/2023, 09/19/2017, 12/10/2015, Additional history exists Pneumococcal Vaccine: Peds ( 0 to 5 Years) and At-Risk Patients (6 to 49 Years) Discontinued 02/10/2023, 09/19/2017, 12/10/2015, Additional history exists [place] Care Teams Radiology Administrator Relationship Specialty Start Date End Date Yolie Desir MD [address] [place] [address] PCP - General Internal Medicine 04/22/21
--- OUTSIDE RECORDS SUMMARY | 2025-11-13 10:07 | XMS_ITS | Encounter Summary ---
Author Organization [employer] Address [address] [facility] 7t [place] [address] Care Team Providers Care Rag Boiler Name Role Phone Yolie Desir MD Primary Care Provider + Reason for Visit * Reason Comments Med Refill Encounter Details Date Type Department Care Team (Late st Contact Info) Description 11/29/2023 Refill [facility] [address] [place], [place] [phone] Axel Graf MD [address] [place] [address] Diabetic nephropathy associated with type 2 diabetes mellitus ([facility]) Social History Tobacco Use Types Packs/Day Years [...] Description 12/13/2025 11:45 AM EST Office Visit [facility] [address] [place] [phone] Yolie Desir MD [address] [place] [address] documented as of this encounter Visit Diagnoses Diagnosis Diabetic nephropathy associated with type 2 diabetes mellitus (HCC) documented in this encounter Additional Health Concerns Assessment Noted Time PHQ-9 Depression Total Score: 8 02/11/20 23 9:24 AM EDT documented as of this encounter Care Teams Rag Boiler Relationship Specialty Start Date End Date Yolie Desir MD [address] [place] [address] PCP - General Family Medicine 10/26/19 Hilda Cardoso Childcare AttendantRubber Tile Floor Layer 04/18/25 Hilda Cardoso Propellant AssemblerRubber Tile Floor Layer 05/22/25 [facility] 08/29/25 documented as of this encounter
--- OUTSIDE RECORDS SUMMARY | 2025-11-13 10:07 | XMS_ITS | Encounter Summary ---
Author Organization [employer] Address [address] [facility] [address] [place] [address] Care Team Providers Care Grocery Cashier Name Role Phone Yolie Desir MD Primary Care Provider + Reason for Visit * Reason Comments Med Refill Encounter Details Date Type Department Care Team (Late st Contact Info) Description 06/15/[address] [facility] [address] [place], [place] [phone] Yolie Desir MD [address] [place], [place] [phone] Diabetic nephropathy associated with type 2 diabetes mellitus ([facility]) Social History Tobacco Use Types Packs/Day [...] Description 12/13/2025 11:45 AM EST Office Visit [facility] [address] [place] [phone] Yolie Desir MD [address] [place] [phone] documented as of this encounter Visit Diagnoses Diagnosis Diabetic nephropathy associated with type 2 diabetes mellitus (HCC) documented in this encounter Additional Health Concerns Assessment Noted Time PHQ-9 Depression Total Score: 8 02/11/20 23 9:24 AM EDT documented as of this encounter Care Teams Grocery Cashier Relationship Specialty Start Date End Date Yolie Desir MD [address] [place] [phone] PCP - General Family Medicine 10/26/19 Hilda Cardoso Data Entry SpecialistSoda Flaker 04/18/25 Hilda Cardoso Research And Evaluation ManagerSoda Flaker 05/22/25 [facility] 08/29/25 documented as of this encounter
--- OUTSIDE RECORDS SUMMARY | 2025-11-13 10:07 | XMS_ITS | Clinical Summary ---
Author Organization [employer] Address [address] [place] [address] 7t [place] [address] Care Team Providers Care Adjunct Lecturer Name Role Phone Boo Ashby MD Primary [...] EVERY 10 DAYS Active Continuous Blood Gluc Assistant Counsel ([employer] G6 medical sales specialist) device USE DIRECTED Active carvedilol (Coreg) 6.25 MG tablet TAKE 1 TABLET BY MOUTH TWICE DAILY IN THE MORNING AND IN THE EVENING Active mometasone (Elocon) 0.1 % ointment APPLY APPROXIMATELY 2 GRAMS TOPICALLY TO AFFECTED AREA(S) DAILY IN THE MORNING 45 g 3 Active glucose (Glutose) 40 % gel oral [...] BY INSULIN PUMP Active Comfort EZ Pen [place] 31G X 8 MM misc USE DIRECTED [...] 180 capsule 10/21/20 25 11:32 AM EST 025 Active Farxiga 10 MG Take 10 mg by mouth Once per day. 025 Active triamcinolone (Kenalog) 0.1 % creamIndication s:Xerosis of skin APPLY TOPICALLY TWICE DAILY. MIX WITH CERAVE CREAM DIRECTED. 80 g 3 025 Active Emollient (CeraVe Moisturizing) creamIndication s:Xerosis of skin Apply topically twice daily. Mix with triamcinolone cream as directed. 453 g 3 025 Active triamcinolone (Kenalog) 0.1 % creamIndication s:Xerosis of skin APPLY TOPICALLY TWICE DAILY. MIX WITH CERAVE CREAM DIRECTED. 80 g 3 024 2024 Discontinued(R eorder (will not trigger notification [...] 02/20/25 Patient has diabetic neuropathy, follow-up with corrosion control specialist Assessment & Plan (05/30/2025 2:27 PM EDT): Fairly controlled, A1c 7.2. Continue Lantus 10 units nightly if she is off Humalog pump, otherwise use Humalog pump and follow-up with register of deeds Continue Ozempic Follow-up with ophthalmology on 06/26, advised to reschedule appointment with corrosion control specialist Follow-up with me in 3 to 4 [...] Omnipod use. Continue to follow up with Equipment Tech and change of medications. FU in 3 [...] to increase water intake and fu with BUSINESS ANALYTICS SPECIALIST in June for pelvic exam She will fu this afternoon with , register of deeds Carpal tunnel syndrome of right wrist 01/23/2024 Overview (01/23/2024): NCS at [facility] on 12/2023= Median nerve compression at wrist [...] (05/30/2025 2:29 PM EDT): Follow-up with Dr. Maxwell/BUSINESS ANALYTICS SPECIALIST, has appointment on July. 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 Mass of axilla [...] AND PLAN FOR TYPE 2 DIABETES MELLITUS ([facility]) WRITTEN ON 11/04/2023 2:41 PM BY BOO ASHBY MD Uncontrolled Unclear if insulin pump is working properly Told patient to call endocrinology MARYLOU to see if pump can be replaced sooner vs. Move temporarily to sc Lantus + Humalog Assessment & Plan (01/08/2025 2:18 PM EST): >>ASSESSMENT AND PLAN FOR TYPE 2 DIABETES MELLITUS ([facility]) WRITTEN ON 08/02/2024 3:15 PM BY BOO ASHBY MD Controlled, last A1c on 01/2024 was at goal. I will do A1c at upcoming regular visit Patient had episode of hypoglycemia today, probably due to miscalculation of insulin dose adjustment. She will fu on Tuesday with patient educator. She received glucose load today and [...] I congratulated her for reaching out to register of deeds and compliance w/ medications I gave her information about diabetic diet, she's asking for more 1-1 esthetician/owner coaching, so I gave her information about wt reduction programs in the area Continue close fu w/ register of deeds insulin pump + Ozempic Pt had intraocular [...] and will order x ray if needed Construction Supervisor appt on Diabetic ulcer of left midfo ot associated with type 2 diabetes mellitus, with fat layer exposed 11/16/2022 09/12/2025 Assessment & Plan (05/30/2025 2:26 PM EDT): Patient cellulitis, status post's Doxy + Augmentin completed, doing well. Continue gentle also dressing by VNA and refer to wound clinic. Advised to schedule appointment with corrosion control specialist, Dr. Castro of. Rx for diabetic shoes [...] to check finger stick and fu with register of deeds. I told pt to call register of deeds office to fu on prescription of CGM sensor Continue lantus 50 units + Omnipod insulin pod Pt to continue regular wound care at wound clinic for left DM ulcer continue laser therapy on right eye. She is legally blind in the left eye. order labs and FU with me in 3 months Assessment & Plan (01/23/2024 12:14 PM EST): Significantly improving, fu with [facility] wound clinic I will order supplies to [...] organization. Date Type Department Care Team Description 11/11/2025 Refill [facility] [address] [place] [address] Boo Ashby MD 11/11/2025 Refill [facility] [address] [place] [address] Boo Ashby MD Diabetic nephropathy associated with type 2 diabetes mellitus (HCC) 11/08/2025 Refill [facility] [address] [place] [address] Boo Ashby MD Xerosis of skin 11/07/2025 Refill [facility] [address] [place] [address] Boo Ashby MD Diabetic nephropathy associated with type 2 diabetes mellitus (HCC) 10/25/2025 10:45 AM EST Office Visit [facility] [address] [place] [address] Boo Ashby MD Type 2 diabetes mellitus [...] Generic External Data 10/25/2025 Travel 10/10/2025 Telephone [facility] [address] [place] [address] Boo Ashby MD 10/10/[address] [address] Boo Ashby MD abnormal pap f/u 10/10/2025 Patient Outreach [address] [address] Boo Ashby MD Pre-visit Planning (SDOH screening negative and tobacco screening negative) 10/09/2025 Refill [facility] [address] [place] [phone] Boo Ashby MD Epigastric pain; Diabetic nephropathy associated with type 2 diabetes mellitus (HCC) 10/08/2025 Telephone [facility] [address] [place] [phone] Idalia Silva, DRE Bunch ([facility] Outreach) 10/08/2025 Telephone [facility] [address] [place] [address] Boo Ashby MD Durable Medical Equipment 10/03/2025 Orders Only GENERIC EXTERNAL DATA DEPARTMENT Provider, Generic External Data 09/27/2025 2:45 PM EST Office Visit [address] [address] Xuan Lozada NP Sore throat; Cough in adult patient 09/27/2025 Travel 09/27/[address] [address] Boo Ashby MD Nurse Triage 09/16/[address] [address] Boo Ashby MD Call Back Request; fyi 09/12/2025 10:45 AM EDT Office Visit [address] [address] Boo Ashby MD Encounter for screening for malignant neoplasm of colon (Primary Dx); Diabetes mellitus type 2 with peripheral artery disease (HCC); Encounter for vaccination; Encounter for immunization; Screening for colon cancer 09/12/2025 Travel 09/11/[address] [address] Boo Ashby MD CHART PREP 09/09/2025 Refill [facility] [address] [place] [address] Boo Ashby MD Diabetic nephropathy associated with type 2 diabetes mellitus (HCC) 09/09/[address] [address] Boo Ashby MD Diabetic nephropathy associated with type 2 diabetes mellitus (HCC) 09/03/[address] [address] Boo Ashby MD verbal orders 08/29/[address] [address] Boo Ashby MD Medication Question 08/29/2025 Patient Outreach [address] [address] Boo Ashby MD Transition Of Care (Tcm) (HDF unscheduled ) 08/23/2025 Telephone [facility] [address] [place] [phone] Boo Ashby MD oct recall 08/22/2025 Patient Outreach [address] [address] Boo Ashby MD Pre-visit Planning (SDOH screening completed on 12/25/2024) 08/22/[address] [phone] Boo Ashby MD r/s appt 08/30/25 08/20/[address] [phone] Boo Ashby MD R/S appt 08/30/25 from Last 3 Months Immunizations Immunization Administration [...] Description 12/13/2025 11:45 AM EST Office Visit [facility] [address] [place], [place] [phone] Boo Ashby MD [address] [place] [address] Health Maintenance Due Date Last Done Comments [...] Patient has chronic kidney disease No Mott, Ilsa [place] Patient has [...] Patient has chronic kidney disease No Mott, Ilsa [place] Patient has chronic kidney disease Care Plan Patient has chronic kidney disease No Mott, Ilsa [place] Patient has chronic kidney disease Care Plan Patient has chronic kidney disease No MottIlsa alejandre [place] Weekly blood pressure task Care Plan Weekly blood pressure task No Mott, Ilsa [place] Weekly blood pressure task Care Plan Weekly blood pressure task No Mott, Ilsa [place] Weekly blood pressure task Care Plan Weekly blood pressure task No Mott, Ilsa [place] Patient has diabetic eye disease Care Plan Patient has diabetic eye disease No MottIlsa alejandre [place] Patient has diabetic eye disease Care Plan Patient has diabetic eye disease No Mott, Ilsa [place] Patient has diabetic eye disease Care Plan Patient has diabetic eye disease No Mott, Ilsa [place] Patient has chronic kidney disease Care Plan Patient has chronic kidney disease No MottIlsa alejandre [place] Patient has chronic kidney disease Care Plan Patient has chronic kidney disease No Mott, Ilsa [place] Patient has chronic kidney disease Care Plan Patient has chronic kidney disease No Mott, Ilsa [place] Weekly blood pressure task Care Plan Weekly [...] has chronic kidney disease No Vivek Lyn Weekly blood pressure task Care Plan Weekly blood pressure task No Aaliyah Galvan PharmD Weekly blood pressure task Care Plan Weekly blood pressure task No Aaliyah Galvan PharmD Weekly blood pressure task Care Plan Weekly blood pressure task No Aaliyah Galvan, PharmD Patient has diabetic eye disease Care Plan Patient has diabetic eye disease No Aaliyah Galvan PharmD Patient has diabetic eye disease Care Plan Patient has diabetic eye disease No Aaliyah Galvan PharmD Patient has diabetic eye disease Care [...] chronic kidney disease No Aaliyah Galvan PharmFarzana Weekly blood pressure task Care Plan Weekly blood pressure task No Aaliyah Galvan PharmD Weekly blood pressure task Care Plan Weekly blood pressure task No Aaliyah Galvan PharmFarzana Weekly blood pressure task Care Plan Weekly blood pressure task No Aaliyah Galvan PharmD Patient has diabetic eye disease Care Plan Patient has diabetic eye disease No Aaliyah Galvan PharmD Patient has diabetic eye disease Care Plan Patient has diabetic eye disease No Aaliyah Galvan PharmD Patient has diabetic eye disease Care [...] chronic kidney disease No Aaliyah Galvan PharmD Procedures Procedure Name Priority Date/Time Associated Diagnosis Comments LIPID PANEL, STANDARD Routine 10/25/2025 12:11 PM EST BASIC METABOLIC PANEL Routine 10/25/2025 12:11 PM EST PROTEIN CREATININE RATIO, URINE Routine 10/25/2025 12:11 PM EST HEPATITIS PANEL, GENERAL Routine 10/25/2025 12:11 PM EST Visit for preventive health examination T-SPOT(R).TB Routine 10/25/2025 12:11 PM EST Visit for preventive health examination POCT GLUCOSE (CPT-23861) Routine 10/25/2025 11:32 AM EST Type 2 [...] with peripheral artery disease (HCC) POCT GLUCOSE (CPT-15474) Routine 09/12/2025 11:15 AM EDT Diabetes mellitus type 2 with peripheral artery disease (HCC) BI MAMMOGRAM SCREENING TOMOSYNTHESIS BILATERAL Routine 06/28/2025 [...] 12:11 PM EST) Creatinine, Urine 119.00 mg/dL [facility] Protein, Total, Random Urine 15(H) <12 mg/dL [facility] Protein/Creati nine Ratio, Ur 0.13 <0.2 [facility] Comment:The spot urine prote in:creatinine ratio may increase to 0.3during normal . 10/25/2025 12:1 1 PM EST 10/25/2025 12:49 PM EST us Generic External Data Provider LAB URINE ORDERAB LES Final Result [facility] [address] [place] [phone] * T-SPOT??.TB (10/25/2025 12:11 PM EST) T Spot TB Negative Negative [facility] Comment:A negative test resu lt [...] as aquantitative test. TS PANEL A 0 [facility] TS PANEL B 0 [facility] Negative Control Passed [facility] Positive Control Passed [facility] Comment:For additional infor erica, please refer tohttp://education.Stigni.bg/faq/PCW447(This link is being provided for informational/educational purposes only.)THIS TEST WAS PERFORMED AT:[email or web address] [id number] [place] [id number] BUENO MD,PHD 10/25/2025 12:1 1 PM EST 10/25/2025 12:53 PM EST Boo Ashby MD LAB BLOOD ORDERABLES Fin al Result Performing Organization Address [facility] de Phone Number [facility] [address] [place] [phone] * Hepatitis Panel, General (10/25/2025 12:11 PM EST) Hepatitis A IgM Nonreactive Nonreactive [facility] Comment:IgM antibodies to PINEDA V not detected; does not exclude earlyacute or recovered HAV infection. ~Hepatitis B Surface Antibody NONREACTIVE Nonreactive [facility] Comment:Nonreactive: < 8.00 mIU/mL Hepatitis B Core Antibody Nonreactive Nonreactive [facility] Hepatitis C Antibody Nonreactive Nonreactive [facility] Comment:Antibodies to HCV no t detected; does not exclude early acuteHCV infection. Hepatitis B Surface Ag Negative Negative [facility] Blood 10/25/2025 12:1 1 PM EST 10/25/2025 12:53 PM EST Boo Ashby MD LAB BLOOD ORDERABLES Fin al Result Performing Organization Address [facility] de Phone Number [facility] [address] [place] [phone] * (ABNORMAL) Lipid Panel, Standard (10/25/2025 12:11 PM EST) Triglycerides 129 <150 mg/dL [facility] Comment:Desirable Triglyceri de: less than 150 mg/dLBorderline High Triglyceride 150-199 mg/dLHigh Triglyceride: 200-499 mg/dLVery High Triglyceride: greater than or equal to 5OO mg/dL Cholesterol 196 <200 mg/dL [facility] Comment:Desirable Cholestero l: less than 200 mg/dLBorderline High Cholesterol: 200-239 mg/dLHigh Cholesterol: greater than 239 mg/dL LDL Cholesterol Calculated 123(H) <100 mg/dL [facility] Comment:Desirable LDL: less than 100 mg/dLNear Optimal/Above Optimal LDL: 110- 129 mg/dLBorderline High LDL: 130-159 mg/dLHigh LDL: 160-189 mg/dLVery High LDL: greater than or equal to 190 mg/dL HDL Cholesterol 48 >40 mg/dL [facility] Comment:Desirable HDL: great er than 40 mg/dL Note: This HDL assay may give artificially low results in patients with liver disease. 10/25/2025 12:1 1 PM EST 10/25/2025 12:53 PM EST us Generic External Data Provider LAB BLOOD ORDERAB LES Final Result [facility] [address] [place] [phone] * (ABNORMAL) Basic Metabolic Panel (10/25/2025 12:11 PM EST) Sodium 142 135 - 145 mmol/L [facility] Potassium 3.2(L) 3.3 - 5.1 mmol/L [facility] Chloride 101 96 - 108 mmol/L [facility] Carbon Dioxide 32(H) 22 - 29 mmol/L [facility] Anion Gap 12 12 - 20 [facility] Urea Nitrogen (BUN) 22(H) 9 - 16 mg/dL [facility] Creatinine, Serum 1.01 0.5 - 1.4 mg/dL [facility] Estimated Glomerular Filt Rate 58 [facility] Comment:Chronic Kidney Disea se: Estimated GFR < 60 mL/min/1.39q5Xurfmi Kidney Disease: Estimated GFR < 15 mL/min/1.73m2 Glucose 94 60 - 115 mg/dL [facility] Calcium 10.3(H) 8.4 - 10.2 mg/dL [facility] 10/25/2025 12:1 1 PM EST 10/25/2025 12:53 PM EST us Generic External Data Provider LAB BLOOD ORDERAB LES Final Result Performing Organization Address [facility] Co de Phone Number [facility] [address] [place] [phone] * POCT Glucose (10/25/2025 11:32 AM EST) Only the most recent of2 resultswithin the time period is included. Glucose Blood, POC 97 60 - 200 mg/dL QC Media Lot # [id number] Lot# Expiration Date Blood Capillary blood specimen / Unknown 10/25/2025 11:32 AM EST Boo Ashby MD POINT OF CARE TEST ENTER /EDIT ORDERABLES Final Result * Glucose, Whole Blood (10/03/2025 3:13 PM EST) [facility] Glucose, Whole Blood 76 60 - 115 mg/dL [facility] Comment:METER #: [id number] Testing performed in the Endocrinology Department [address], [address], [facility]. 10/03/2025 3:13 PM EST 10/03/2025 3:18 PM EST [employer] External Data Provider LAB BLOOD ORDERAB LES Final Result Performing Organization Address [facility] Co de Phone Number [facility] [address] [place] [phone] * POCT Rapid Strep A BENITES ID NOW (09/27/2025 2:34 PM EST) Rapid Strep A Screen Negative Negative, None Detected QC Media Lot # [id number] Lot# Expiration Date Swab 09/27/2025 2:34 PM EST Xuan Lozada NP POINT OF CARE TEST ENTER/EDIT O RDERABLES Final Result * POCT Rapid Influenza B BENITES ID NOW (09/27/2025 2:29 PM EST) Influenza B Negative Negative, Indeterminate [facility] QC Media Lot # [id number] [facility] Lot# Expiration Date [facility] Swab 09/27/2025 2:29 PM EST [facility] METER ATTENDANT POINT OF CARE TEST ENTER/EDIT O RDERABLES Final Result Performing Organization Address [facility] Co de Phone Number [facility] [address] [place] [phone] * POCT Rapid Influenza A BENITES ID NOW (09/27/2025 2:29 PM EST) Pathologist [facility] Influenza A Negative Negative, Indeterminate [facility] QC Media Lot # [id number] [facility] Lot# Expiration Date [facility] Swab 09/27/2025 2:29 PM EST [facility] POINT OF CARE TEST ENTER/EDIT O RDERABLES Final Result Performing Organization Address [facility] de Phone Number [facility] [address] [place] [phone] * POCT Rapid COVID-19 Binax NOW (09/27/2025 2:28 PM EST) Pathologist [facility] Rapid COVID Ag Negative QC Media Lot # [id number] Lot# Expiration Date Swab 09/27/2025 2:28 PM EST [facility] METER ATTENDANT POINT OF CARE TEST ENTER/EDIT O RDERABLES Final Result * (ABNORMAL) POCT Hgb A1c (09/12/2025 11:23 AM EDT) Pathologist [facility] Hemoglobin A1C 8.3(A) 4.0 - 5.7 % QC Media Lot # [id number] Lot# Expiration Date Blood 09/12/2025 11:2 3 AM EDT Result Jean Ashby MD POINT OF CARE TEST ENTER /EDIT ORDERABLES Final Result * BI Mammogram Screening Tomosynthesis Bilateral (06/28/2025) Anatomical Region Laterality Modality Breast Bilateral Mammography Result Jean Ashby MD IMG BI PROCEDURES Final Result * Referral to Podiatry (04/24/2025) Result Jean Ashby MD OUTPATIENT REFERRAL ORDE RABLES Final Result * (ABNORMAL) HPV Genotypes 16,18/45 (03/15/2023 11:10 AM EDT) HPV 16 RNA NOT DETECTED NOT DETECTED [facility] HPV 18/45 RNA DETECTED(A) NOT DETECTED [facility] Comment: Methodology: Seo Team Lead Mediated Amplification Cervical sources are required for HPV testing. If a vaginal source from a patient who has had a total hysterectomy with removal of cervix was submitted, please contact the testing laboratory for alternative testing options. 03/15/2023 11:1 0 AM EDT 03/16/2023 6:23 AM EDT Result Jean Boo Ashby MD LAB CYTOLOGY ORDERABLES Final Result [address], [place] [phone] [facility] [address] [place] [phone] * Hm Pap Smear (03/15/2023) Pathologist [facility] HM Pap smear NIL HPV+ Result [facility] Kandice Fernandez MD HEALTH MAINTENANCE Final Result [...] 11/11/2025 Patient has chronic kidney disease 11/11/2025 Insurance [facility] C3 Care Teams Adjunct Lecturer Relationship Specialty Start Date End Date Boo Ashby MD [address] [place] [phone] PCP - General Family Medicine 10/26/19 Hilda Cardoso Automobile Brakes [employer] Payable Bookkeeper 04/18/25 Hilda Cardoso Horse BreederAccounts Payable Bookkeeper 05/22/25 [facility] 08/29/25
--- OUTSIDE RECORDS SUMMARY | 2025-11-13 10:07 | XMS_ITS | Encounter Summary ---
Author Organization [employer] Address [address] [facility] 7t [place] [address] Care Team Providers Care Garage Construction Equipment Mechanic Name Role Phone Yolie Desir MD Primary Care Provider + Reason for Visit * Reason Comments Med Refill Encounter Details Date Type Department Care Team ([facility] st Contact Info) Description 09/09/2025 Refill [facility] [address] [place], [place] [phone] Yolie Desir MD 230 [place], [place] [phone] Diabetic nephropathy associated with type 2 diabetes [...] 12/13/2025 11:45 AM EST Office Visit [facility] [address] [place] [phone] Yolie Desir MD [address] [place] [phone] documented as of this encounter Visit Diagnoses Diagnosis Diabetic nephropathy associated with type 2 diabetes mellitus (HCC) documented in this encounter Additional Health Concerns Assessment Noted Time PHQ-9 Depression Total Score: 6 05/30/20 25 10:56 AM EDT documented as of this encounter Care Teams Garage Construction Equipment Mechanic Relationship Specialty Start Date End Date Yolie Desir MD [address] [place] [phone] PCP - General Family Medicine 10/26/19 Hilda Cardoso Communications MaintainerBleacher Operator 04/18/25 Hilda Cardoso Forklift SupervisorBleacher Operator 05/22/25 [facility] 08/29/25 documented as of this encounter
--- OUTSIDE RECORDS SUMMARY | 2025-11-13 10:07 | XMS_ITS | Encounter Summary ---
Author Organization [employer] Address [address] [facility] 7t [place] [address] Care Team Providers Care Web Production Manager Name Role Phone Yolie Desir MD Primary Care Provider + Reason for Visit * Reason Comments Med Refill Encounter Details Date Type Department Care Team ([facility] st Contact Info) Description 11/07/2025 Refill [facility] 230 [place], [place] [phone] Yolie Desir MD 230 [place], [place] [phone] Diabetic nephropathy associated with type 2 diabetes [...] Description 12/13/2025 11:45 AM EST Office Visit [facility] [address] [place] [phone] Yolie Desir MD [address] [place] [phone] documented as of this encounter Goals Goal [...] Care Plan Weekly blood pressure task No Naomi Yana Patient has diabetic eye disease Care Plan [...] Plan Weekly blood pressure task No MottIlsa [place] Weekly blood pressure task Care Plan Weekly blood pressure task No MottIlsa [place] Weekly blood pressure task [...] chronic kidney disease No Mott Ilsa MA Weekly blood pressure task Care Plan Weekly blood pressure task No Mott, Ilsa, [place] Weekly blood pressure task Care Plan Weekly blood pressure task No Mott, Ilsa, PRETTY Weekly blood pressure task Care Plan Weekly [...] blood pressure task No Ilsa Mott MA Patient has diabetic [...] chronic kidney disease No Ilsa Mott MA documented as of this encounter Visit Diagnoses [...] 10/25/2025 Patient has chronic kidney disease 10/25/2025 Assessment Noted Time PHQ-9 Depression Total Score: 6 05/30/20 25 10:56 AM EDT documented as of this encounter Care Teams Web Production Manager Relationship Specialty Start Date End Date Yolie Desir MD [address] [place] [phone] PCP - General Family Medicine 10/26/19 Hilda Cardoso Cashier AssociateMedical Surgical Tech 04/18/25 Hilda Cardoso Fuel Cell BuilderMedical Surgical Tech 05/22/25 [facility] 08/29/25 documented as of this encounter
--- OUTSIDE RECORDS SUMMARY | 2025-11-13 10:07 | XMS_ITS | Encounter Summary ---
Author Organization [employer] [facility] Address [address] [place] [address] 7t [place] [address] Care Team Providers Care Lens And Frames Prescription Clerk Name Role Phone Yolie Desir MD Primary Care Provider + Encounter Details Date Type Department Care Team (Late st Contact Info) Description 01/25/2023 Abstract [facility] [address] [place] [address] [phone] Yolie Desir MD [address] [place] [address] [phone] Social History Tobacco Use Types Packs/Day Years [...] Description 12/13/2025 11:45 AM EST Office Visit [facility] [address] [place] [address] [phone] Yolie Desir MD [address] [place] [address] [phone] documented as of this encounter Visit Diagnoses Not on filedocumented in this encounter Care Teams Lens And Frames Prescription Clerk Relationship Specialty Start Date End Date Yolie Desir MD [address] [place] [address] [phone] PCP - General Family Medicine 10/26/19 Hilda Cardoso Registrar College Or UniversityHome Health Aide Caregiver 04/18/25 Hilda Cardoso Supervisor Fabrication And AssemblyHome Health Aide Caregiver 05/22/25 [facility] 08/29/25 documented as of this encounter
--- OUTSIDE RECORDS SUMMARY | 2025-11-13 10:07 | XMS_ITS | Clinical Summary ---
Author Organization [facility] Address [address] [facility] [address] [place] [phone] Phone Care Team Providers Care Ac/Dc Rewinder Name Role Phone Yolie Desir MD Primary [...] topic Medical Devices Not on file [place] [address] [place] [address] [place] [address] [place] [address] [place] [id number] [facility] [address] [place] [address] [place] [address] [place] [address] [place] [address] [facility] [facility] Care Teams Ac/Dc Rewinder Relationship Specialty Start Date End Date Yolie Desir MD 230 [facility] [address] [place] [phone] PCP - General Internal Medicine 03/31/21 Additional Source Comments The information contained in this document represents components of the legal health record. It is not the complete legal health record.[facility]
--- OUTSIDE RECORDS SUMMARY | 2025-11-13 10:07 | XMS_ITS | Encounter Summary ---
Author Organization [employer] Address [address] [facility] [address] 7t [place] [address] Care Team Providers Care Mosaic Layer Name Role Phone Yolie Desir MD Primary Care Provider + Reason for Visit * Reason Comments Med Refill Encounter Details Date Type Department Care Team (Late st Contact Info) Description 12/29/2023 Refill [facility]INE 230 [place], [place] [phone] Yolie Desir MD 230 [place], [place] [phone] Diabetic nephropathy associated with type 2 diabetes mellitus ([facility]/HCC) Social History Tobacco Use Types Packs/Day [...] Description 12/13/2025 11:45 AM EST Office Visit [facility] MED[facility]INE [address] [place] [address] [phone] Yolie Desir MD [address] [place] [phone] documented as of this encounter Visit Diagnoses Diagnosis Diabetic nephropathy associated with type 2 diabetes mellitus (HCC) documented in this encounter Additional Health Concerns Assessment Noted Time PHQ-9 Depression Total Score: 8 02/11/20 23 9:24 AM EDT documented as of this encounter Care Teams Mosaic Layer Relationship Specialty Start Date End Date Yolie Desir MD [address] [place] [phone] PCP - General Family Medicine 10/26/19 Hilda Cardoso Velocity ShooterProperty Management Specialist 04/18/25 Hilda Cardoso Forest Economics ProfessorProperty Management Specialist 05/22/25 [facility] 08/29/25 documented as of this encounter
--- OUTSIDE RECORDS SUMMARY | 2025-11-13 10:07 | XMS_ITS | Encounter Summary ---
Author Organization [employer] Address [address] [facility] [address] 7[address] [place] [address] Care Team Providers Care Agile Project Manager Name Role Phone Yolie Desir MD Primary Care Provider + Reason for Visit * Reason Onset Date Comments Julio C 10/08/2025 [facility] Outreach Encounter Details Date Type Department Care Team ([facility] st Contact Info) Description 10/08/2025 Telephone [facility] 230 [place] [phone] Idlaia Silva, RN Julio C ([facility] Outreach) Social History Tobacco Use Types Packs/Day Years [...] encounter Miscellaneous Notes * Telephone Encounter - Idalia Silva RN - 11/12/2025 9:37 AM EST RN outreach completed for Cologuard?? follow-up. Left voicemail for patient reminding them to complete their Cologuard?? test and explaining the importance of colorectal cancer screening. Informed patient that calls are returned on Tuesdays and provided clinic callback number ([phone]). Requested that if they return the call on a different day, patient access representatives send a message to the RN's inbox. Will attempt follow-up call again next week if no response. Optional add-on for repeat attempts: This was call attempt #1. Will close outreach if no response after third attempt. * Telephone Encounter - Idalia Silva RN - 10/28/2025 10:29 AM EST RN outreach completed for Cologuard?? follow-up. Spoke with patient regarding the importance of completing colorectal cancer screening and reviewed how to properly collect and return the Cologuard?? kit. Discussed common barriers and provided education on options for UPS drop-off or scheduling a home pick-up. Patient verbalized understanding and plans to complete the test. Encouraged patient to call the clinic if additional questions or barriers arise. Patient has not received it, deleted the number again, will send nu number to call. Also stated spoke with delivery at apartment and has not received a package. * Telephone Encounter - Idalia Silva RN - 10/22/2025 10:08 AM EST RN outreach completed for Cologuard?? follow-up. Spoke with patient regarding the importance of completing colorectal cancer screening and reviewed how to properly collect and return the Cologuard?? kit. Discussed common barriers and provided education on options for UPS drop-off or scheduling a home pick-up. Patient verbalized understanding and plans to complete the test. Encouraged patient to call the clinic if additional questions or barriers arise. If patient needs Cologuard number again * Telephone Encounter - Idalia Silva RN - 10/16/2025 8:59 AM EST RN outreach completed for Cologuard?? follow-up. Spoke with patient regarding the importance of completing colorectal cancer screening and reviewed how to properly collect and return the Cologuard?? kit. Discussed common barriers and provided education on options for UPS drop-off or scheduling a home pick-up. Patient verbalized understanding and plans to complete the test. Encouraged patient to call the clinic if additional questions or barriers arise. If patient needs materials resent, confirmed preferred method (mail/text/email). Confirmed correct mailing address for test kit. Documented any reported barriers in the tracking spreadsheet. * Telephone Encounter - Idalia Silva RN - 10/08/2025 10:05 AM EST RN outreach completed for Cologuard?? follow-up. Spoke with patient regarding the importance of completing colorectal cancer screening and reviewed how to properly collect and return the Cologuard?? kit. Discussed common barriers and provided education on options for UPS drop-off or scheduling a home pick-up. Patient verbalized understanding and plans to complete the test. Encouraged patient to call the clinic if additional questions or barriers arise. If patient needs materials resent, confirmed preferred method (mail/text/email). Confirmed correct mailing address for test kit. Documented any reported barriers in the tracking spreadsheet. Has not received in mail, will call back next week documented in this encounter Plan of Treatment Upcoming Encounters Date Type Department Care Team (Late st Contact Info) Description 12/13/2025 11:45 AM EST Office Visit [facility] MEDICINE [address] [place] [phone] Yolie Desir MD [address] [place] [address] [phone] documented as of this encounter Goals Goal [...] Care Plan Patient has chronic kidney disease Yolie Lugo MD Weekly blood pressure task Care Plan Weekly blood pressure task Du Fofana Weekly blood pressure task Care Plan Weekly blood pressure task No Du Pearson Weekly blood pressure task Care Plan Weekly blood pressure task No Du Pearson Patient has diabetic eye disease Care Plan Patient has diabetic eye disease Du Fofana Patient has diabetic eye disease Care Plan Patient has diabetic eye disease No Du Pearson Patient has diabetic eye disease Care Plan [...] Plan Patient has diabetic eye disease No Naomi Yana Patient has diabetic eye disease Care Plan Patient has diabetic eye disease No Naomi Yana Patient has chronic kidney disease Care Plan Patient has chronic kidney disease No Naomi Yana Patient has chronic kidney disease Care Plan Patient has chronic kidney disease No Naomi Yana Patient has chronic kidney disease Care Plan Patient has chronic kidney disease No Naomi Yana Weekly blood pressure task Care Plan Weekly blood pressure task No MottIlsa [place] Weekly blood pressure task Care Plan Weekly blood pressure task No MottIlsa [place] Weekly blood pressure task Care Plan Weekly blood pressure task No MottIlsa [place] Patient has diabetic eye disease Care Plan Patient has diabetic eye disease No MottIlsa [place] Patient has diabetic eye disease Care Plan Patient has diabetic eye disease No MottIlsa [place] Patient has diabetic eye disease Care Plan Patient has diabetic eye disease No MottIlsa [place] Patient has chronic kidney disease Care Plan Patient has chronic kidney disease No MottIlsa [place] Patient has chronic kidney disease Care Plan Patient has chronic kidney disease No MottIlsa [place] Patient has chronic kidney disease Care Plan Patient has chronic kidney disease No MottIlsa [place] Weekly blood pressure task Care Plan Weekly blood pressure task No Mott, PRETTY Rosenbaum Weekly blood pressure task Care Plan Weekly blood pressure task No Mott, PRETTY Rosenbaum Weekly blood pressure task Care Plan Weekly blood pressure task No Mott, PRETTY Rosenbaum Patient has diabetic eye disease Care Plan Patient has diabetic eye disease No MottIlsa [place] Patient has diabetic eye disease Care Plan Patient has diabetic eye disease No MottIlsa [place] Patient has diabetic eye disease Care Plan Patient has diabetic eye disease No MottIlsa [place] Patient has chronic kidney disease Care Plan Patient has chronic kidney disease No Mott, IlsaPRETTY Patient has chronic kidney disease Care Plan Patient has chronic kidney disease No MottIlsa [place] Patient has chronic kidney disease Care Plan Patient has chronic kidney disease No Mott, PRETTY Rosenbaum Weekly blood pressure task Care Plan Weekly blood pressure task No Mott, Ilsa, PRETTY Weekly blood pressure task Care Plan Weekly blood pressure task No Mott, Ilsa, PRETTY Weekly blood pressure task Care Plan Weekly blood pressure task No MottIlsa [place] Patient has diabetic eye disease Care Plan Patient has diabetic eye disease No MottIlsa [place] Patient has diabetic eye disease Care Plan Patient has diabetic eye disease No MottIlsa [place] Patient has diabetic eye disease Care Plan Patient has diabetic eye disease No Mott, Ilsa [place] Patient has chronic kidney disease Care Plan Patient has chronic kidney disease No Mott, Ilsa [place] Patient has chronic kidney disease Care Plan Patient has chronic kidney disease No Mott, Ilsa [place] Patient has chronic kidney disease Care Plan Patient has chronic kidney disease No Mott, Ilsa [place] Weekly blood pressure task Care Plan Weekly blood pressure task No Marleeiagoaguil Vivek rosas Weekly blood pressure task Care Plan Weekly blood pressure task No Santiagoaguil Vivek rosas Weekly blood pressure task Care Plan Weekly blood pressure task No Santiagoaguil Vivek rosas Patient has diabetic eye disease Care Plan Patient has diabetic eye disease No Santiagoaguil Vivek rosas Patient has diabetic eye disease Care Plan Patient has diabetic eye disease No Santiagoaguil Vivek rosas Patient has diabetic eye disease Care Plan Patient has diabetic eye disease No Angelitauil Vivek rosas Patient has chronic kidney disease Care Plan Patient has chronic kidney disease No Santiagoaguil Vivek rosas Patient has chronic kidney disease Care Plan Patient has chronic kidney disease No Santiagoaguil Vivek rosas Patient has chronic kidney disease Care Plan Patient has chronic kidney disease No Marleeiagoaguil Vivek rosas Weekly blood pressure task Care Plan Weekly blood pressure task No Abimbola Galvanfer, PharmD Weekly blood pressure task Care Plan Weekly blood pressure task No Abimbola Galvanfer, PharmD Weekly blood pressure task Care Plan Weekly blood pressure task No Gwen Galvannifer, PharmD Patient has diabetic eye disease Care Plan Patient has diabetic eye disease No GalvanGwenAaliyah, PharmD Patient has diabetic eye disease Care Plan Patient has diabetic eye disease No GalvanGwenAaliyah, PharmD Patient has diabetic eye disease Care Plan Patient has diabetic eye disease No Galvan Aaliyah, PharmD Patient has chronic kidney disease Care Plan Patient has chronic kidney disease No Galvan Aaliyah, PharmD Patient has chronic kidney disease Care Plan Patient has chronic kidney disease No Galvan, Aaliyah, PharmD Patient has chronic kidney disease Care Plan Patient has chronic kidney disease No Galvan, Aaliyah, PharmD Weekly blood pressure task Care Plan Weekly blood pressure task No Galvan, Aaliyah, PharmD Weekly blood pressure task Care Plan [...] filedocumented in this encounter Additional Health Concerns Active [...] documented as of this encounter Care Teams Agile Project Manager Relationship Specialty Start Date End Date Yolie Desir MD [address] [place] [phone] PCP - General Family Medicine 10/26/19 Hilda Cardoso Buck SwamperTrolley Operator 04/18/25 Hilda Cardoso Hospice ChaplainTrolley Operator 05/22/25 [facility] 08/29/25 documented as of this encounter
--- OUTSIDE RECORDS SUMMARY | 2025-11-13 10:07 | XMS_ITS | Encounter Summary ---
Author Organization [employer] Address [address] [facility] [address] 7t [place] [address] Care Team Providers Care Hospital Director Name Role Phone Yolie Desir MD Primary Care Provider + Encounter Details Date Type Department Care Team ([facility] st Contact Info) Description 11/11/2025 Refill [facility] [address] [place], [place] [phone] Yolie Desir MD 230 [place] [address] Social History Tobacco Use Types Packs/Day Years [...] 12/13/2025 11:45 AM EST Office Visit [facility] 230 [place], [place] [phone] Yolie Desir MD 230 [place] [address] documented as of this encounter Goals Goal [...] Care Plan Weekly blood pressure task No Michel Du Weekly blood pressure task Care Plan [...] Patient has diabetic eye disease No Mott, IlsaPRETTY Patient has chronic [...] Patient has diabetic eye disease No Mott, IlsaPRETTY Patient has diabetic eye disease Care Plan Patient has diabetic eye disease No Mott, IlsaPRETTY Patient has chronic kidney disease Care Plan Patient has chronic kidney disease No Mott, IlsaPRETTY Patient has chronic kidney disease Care Plan Patient has chronic kidney disease No Mott IlsaPRETTY Patient has chronic kidney disease Care Plan Patient has chronic kidney disease No Mott, IlsaPRETTY Weekly blood pressure task Care Plan Weekly blood pressure task No Mott, Ilsa [place] Weekly blood pressure task Care Plan Weekly blood pressure task No Mott, Ilsa [place] Weekly blood pressure task Care Plan Weekly blood pressure task No Mott Ilsa [place] Patient has diabetic eye disease Care Plan Patient has diabetic eye disease No Mott, Ilsa [place] Patient has diabetic eye disease Care Plan Patient has diabetic eye disease No Mott, Ilsa [place] Patient has diabetic eye disease Care Plan Patient has diabetic eye disease No Mott, Ilsa [place] Patient has chronic kidney disease Care Plan Patient has chronic kidney disease No Mott, Lisa MO Patient has chronic kidney disease Care Plan Patient has chronic kidney disease No Mott, Ilsa [place] Patient has chronic kidney disease Care Plan Patient has chronic kidney disease No Pantera Ilsa [place] Weekly blood pressure task Care Plan Weekly [...] documented as of this encounter Care Teams Hospital Director Relationship Specialty Start Date End Date Yolie Desir MD [address] [place] [phone] PCP - General Family Medicine 10/26/19 Hilda Cardoso Marketing Services SpecialistRegistered Nurse Supervisor 04/18/25 Hilda Cardoso Fire EngineerRegistered Nurse Supervisor 05/22/25 [facility] 08/29/25 documented as of this encounter
--- OUTSIDE RECORDS SUMMARY | 2025-11-13 10:07 | XMS_ITS | Encounter Summary ---
Author Organization [employer] [facility] Address [address] [place] [address] 7t [place] [address] Care Team Providers Care Bike Mechanic Name Role Phone Yolie Desir MD Primary Care Provider + Encounter Details Date Type Department Care Team (Late st Contact Info) Description 01/25/2023 Abstract [facility] MEDICINE [address] [place] [address] [phone] Yolie Desir MD [address] [place] [address] [phone] Social History Tobacco Use Types Packs/Day Years [...] Description 12/13/2025 11:45 AM EST Office Visit [facility] MED[facility]INE [address] [place] [address] [phone] Yolie Desir MD [address] [place] [address] [phone] documented as of this encounter Visit Diagnoses Not on filedocumented in this encounter Care Teams Bike Mechanic Relationship Specialty Start Date End Date Yolie Desir MD [address] [place] [phone] PCP - General Family Medicine 10/26/19 Hilda Cardoso Jacquard Card CutterSales Coordinator 04/18/25 Hilda Cardoso Real Estate UnderwriterSales Coordinator 05/22/25 [facility] 08/29/25 documented as of this encounter
--- OUTSIDE RECORDS SUMMARY | 2025-11-13 10:07 | XMS_ITS | Encounter Summary ---
Author Organization [employer] [facility] Address [address] [place] [address] 7t [place] [address] Care Team Providers Care Echocardiography Radiology Technologist Name Role Phone Yolie Desir MD Primary Care Provider + Reason for Visit * Reason Onset Date Comments Prior Authorization 10/28/2022 Encounter Details Date Type Department Care Team (Late st Contact Info) Description 10/28/2022 Telephone [facility] [address] [place], [place] [phone] Yolie Desir MD [address] [place], [place] [phone] Prior Authorization Social History Tobacco Use Types [...] Description 12/13/2025 11:45 AM EST Office Visit [facility] [address] [place] [address] Yolie Desir MD [address] [place] [address] documented as of this encounter Visit Diagnoses Not on filedocumented in this encounter Care Teams Echocardiography Radiology Technologist Relationship Specialty Start Date End Date Yolie Desir MD [address] [place] [address] PCP - General Family Medicine 10/26/19 Hilda Cardoso Data Entry TechnicianLogistics Team Leader 04/18/25 Hilda Cardoso Wrap TurnerLogistics Team Leader 05/22/25 [facility] 08/29/25 documented as of this encounter
--- OUTSIDE RECORDS SUMMARY | 2025-11-13 10:07 | XMS_ITS | Encounter Summary ---
Author Organization [employer] Address [address] [facility] [address] [place] [address] Care Team Providers Care [employer] Fabric[employer] Supervisor Name Role Phone Yolie Desir MD Primary Care Provider + Reason for Visit * Reason Onset Date Comments Referral 11/08/2025 Encounter Details Date Type Department Care Team ([facility] st Contact Info) Description 11/08/2025 Refill [facility] [address] [place], [place] [phone] Yolie Desir MD [address] [place] [address] Xerosis of skin Social History Tobacco Use Types Packs/Day Years [...] Telephone Encounter - Yoanna Mercado RN - 11/08/2025 2:42 PM EST TC returned to pt. Pt. Having patches of eczema on back and thighs. Diagnosed as xerosis of skin when pt. Saw derm in Dec 2023, and pt. Was prescribed triancinolone and cerave. Pt. Reports this combination was very effective and is requesting refills. Advised pt. Request would be sent and pt. To f/up if creams do not improve areas * Telephone Encounter - Vivek Calderón - 11/08/2025 1:24 PM EST Tc from pt requesting a referral to a log washer Contact pt at [phone] (luxembourger) documented in this encounter Plan of Treatment Upcoming Encounters Date Type Department Care Team (Late st Contact Info) Description 12/13/2025 11:45 AM EST Office Visit [facility] [address] [place] [address] Yolie Desir MD [address] [place] [address] documented as of this encounter Goals Goal Patient Goal Type Associated Problems Recent Progress Patient-Stated? Author Help patients manage their type 2 diabetes Care Plan Help patients manage their type 2 diabetes No Yolie Desir MD Weekly blood pressure task Care Plan Weekly blood pressure task No Yolie Desir MD Help patients manage their type 2 diabetes Care Plan Help patients manage their type 2 diabetes Yolie Lugo MD Patient has diabetic eye disease Care Plan Patient has diabetic eye disease Yolie Lugo MD Help patients manage their type 2 diabetes Care Plan Help patients manage their type 2 diabetes No Yolie Desir MD Patient has chronic kidney disease Care [...] Plan Patient has diabetic eye disease No Michel Du Patient has chronic kidney disease Care [...] Weekly blood pressure task No Xuan Lozada GRAIN II FARMWORKER Weekly blood pressure task Care Plan Weekly blood pressure task No AppraXuan sanabria, GRAIN II FARMWORKER Weekly blood pressure task Care Plan Weekly blood pressure task No AppraXuan sanabria, GRAIN II FARMWORKER Patient has diabetic eye disease Care Plan Patient has diabetic eye disease No AppraXuan sanabria, GRAIN II FARMWORKER Patient has diabetic eye disease Care Plan Patient has diabetic eye disease No AppraXuan sanabria, GRAIN II FARMWORKER Patient has diabetic eye disease Care Plan Patient has diabetic eye disease No Xuan Lozada, GRAIN II FARMWORKER Patient has chronic kidney disease Care Plan Patient has chronic kidney disease No AppraXuan sanabria, GRAIN II FARMWORKER Patient has chronic kidney disease Care Plan Patient has chronic kidney disease No AppraXuan sanabria, GRAIN II FARMWORKER Patient has chronic kidney disease Care Plan Patient has chronic kidney disease No Xuan Lozada, GRAIN II FARMWORKER Weekly blood pressure task Care Plan Weekly [...] Patient has diabetic eye disease No Mott, PRETTY Rosenbaum Patient has diabetic eye disease Care Plan Patient has diabetic eye disease No Mott, PRETTY Rosenbaum Patient has chronic kidney disease Care Plan [...] Patient has diabetic eye disease No Mott, PRETTY Rosenbaum Patient has diabetic eye disease Care Plan Patient has diabetic eye disease No MottIlsa [place] Patient has diabetic eye disease Care Plan Patient has diabetic eye disease No Mott, PRETTY Rosenbaum Patient has chronic kidney disease Care Plan Patient has chronic kidney disease No Mott, PRETTY Rosenbaum Patient has chronic kidney disease Care Plan [...] has chronic kidney disease No Vivek Lyn documented as of this encounter Visit Diagnoses Diagnosis Xerosis of skin documented in this encounter Additional Health Concerns [...] 11/08/2025 Patient has chronic kidney disease 11/08/2025 Assessment Noted Time PHQ-9 Depression Total Score: 6 07/10/20 25 10:56 AM EDT documented as of this encounter Care Teams [employer] Supervisor Relationship Specialty Start Date End Date Yolie Desir MD [address] [place] [phone] PCP - General Family Medicine 10/26/19 Hilda Cardoso Beauty OperatorDesilverizer 04/18/25 Hilda Cardoso It Service TechnicianDesilverizer 05/22/25 [facility] 08/29/25 documented as of this encounter
--- OUTSIDE RECORDS SUMMARY | 2025-11-13 10:07 | XMS_ITS | Encounter Summary ---
Author Organization [id number] Address [address] [facility] [address] [place] [address] Care Team Providers Care Finish Molder Name Role Phone Yolie Desir MD Primary Care Provider + Reason for Visit * Reason Comments Med Refill Encounter Details Date Type Department Care Team ([facility] st Contact Info) Description 01/02/2024 Refill [facility] [address] [place], [place] [phone] [facility] [address] [place] [address] Acute on chronic congestive heart failure, unspecified [...] EST Office Visit [facility] [address] [place] [phone] Yolie Desir MD [address] [place] [address] documented as of this encounter Visit Diagnoses Diagnosis Acute on chronic congestive heart failure, unspecified heart failure type (HCC) documented in this encounter Additional Health Concerns Assessment Noted Time PHQ-9 Depression Total Score: 8 02/11/20 23 9:24 AM EDT documented as of this encounter Care Teams Finish Molder Relationship Specialty Start Date End Date Yolie Desir MD [address] [place] [phone] PCP - General Family Medicine 10/26/19 Hilda Cardoso Conveyor FeederChar House Supervisor 04/18/25 Hilda Cardoso Receptionist/Telephone OperatorChar House Supervisor 05/22/25 [facility] 08/29/25 documented as of this encounter
--- OUTSIDE RECORDS SUMMARY | 2025-11-13 10:07 | XMS_ITS | Encounter Summary ---
Author Organization [employer] Address [address] [facility] [address] [place] [address] Care Team Providers Care Farm Management Professor Name Role Phone Yolie Desir MD Primary Care Provider + Reason for Visit * Reason Comments Med Refill Encounter Details Date Type Department Care Team ([facility] st Contact Info) Description 11/14/2023 Refill [facility] [address] [place] [phone] Preet Blackwood MD [address] [place], [place] [phone] Social History Tobacco Use Types Packs/Day Years [...] Description 12/13/2025 11:45 AM EST Office Visit [facility] [address] [place] [address] Yolie Desir MD [address] [place] [address] documented as of this encounter Visit Diagnoses Not on filedocumented in this encounter Additional Health Concerns Assessment Noted Time PHQ-9 Depression Total Score: 8 02/11/20 23 9:24 AM EDT documented as of this encounter Care Teams Farm Management Professor Relationship Specialty Start Date End Date Yolie Desir MD [address] [place] [address] PCP - General Family Medicine 10/26/19 Hilda Cardoso Soda WorkerObstetrical Tech 04/18/25 Hilda Cardoso Director Of Guidance In Public SchoolsObstetrical Tech 05/22/25 [facility] 08/29/25 documented as of this encounter
== END 2025-11-13 10:58 | disposition home or self-care (01) ==
LOC: HO.HWS 09:56
PROVIDERS: PCP Internal Medicine; Visit Provider Obstetrics & Gynecology
DX: Z01.419 Encounter for gynecological examination (general) (routine) without abnormal findings (principal)
CPT/HCPCS: 99396; 99459